=== PATIENT | male | born 1950 | race Two or more races ===

== ENCOUNTER 2024-07-13 11:43 | Emergency (ER) | payer OTHER, SELFPAY ==
[2024-07-13] VITALS (24 sets, daily range): BP systolic 133–155; BP diastolic 72–99; PULSE 75–93; RESP 12–26; TEMP 36.9; O2SAT 99–100
--- NOTE | ~2024-07-13 | XR_ITS ---
EXAMINATION: XR chest 1V portable DATE: 07/13/2024 12:42 INDICATION: Shortness of breath and chest pain TECHNIQUE: AP view of the chest was obtained. COMPARISON: Chest radiograph dated 06/22/[address] dated 06/26/2024 FINDINGS: No focal airspace opacities, pulmonary edema, pleural effusion or pneumothorax. Heart size is normal. Old healed fracture with plate and screw fixations at the right posterior fourth-ninth ribs. 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 IMPRESSION: 1. No acute cardiopulmonary disease. Reviewed, dictated and finalized at location A. RY CUTTER
--- NOTE | 2024-07-13 11:53 | ECG_ITS ---
Test Date: 2024-07-13 11:58:43 Measurements Intervals [place] Rate: 82 P: 31 MD: 168 QRS: 19 QRSD: 83 T: 131 QT: 384 QTc: 450 Interpretive Statements SINUS RHYTHM SEPTAL MYOCARDIAL INFARCTION , PROBABLY RECENT ST-T WAVE ABNORMALITY IN ANTEROLAT/HIGH LAT LEADS- CONSIDER ISCHEMIA BASELINE ARTIFACT- I, II, III, AVR, AVL, AVF ABNORMAL ECG No previous ECG available for comparison Electronically Signed On 07-13-2024 17:08:15 [employer] by Pascual Oakley D.O.
--- NOTE | 2024-07-13 12:08 | ECG_ITS ---
Test Date: 2024-07-13 12:10:42 Measurements Intervals [place] Rate: 85 P: 12 NM: 163 QRS: -1 QRSD: 78 T: 128 QT: 370 QTc: 442 Interpretive Statements SINUS RHYTHM SEPTAL INFARCT, PROBABLY RECENT ST-T WAVE ABNORMALITY IN HIGH LATERAL LEADS- CONSIDER ISCHEMIA BASELINE ARTIFACT- I, II, III, AVR, AVL, AVF ABNORMAL ECG Compared to ECG 07/13/2024 11:58:43 No significant changes Electronically Signed On 07-13-2024 16:56:22 [employer] by Pascual Oakley D.O.
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
--- OUTSIDE RECORDS SUMMARY | 2024-07-13 12:36 | XMS_ITS | Clinical Summary ---
Author Organization [facility] Address [facility] [place] [address] Care Team Providers Care Platform Attendant Name Role Phone Donavon Connor MD Primary Care Provider [phone] Allergies Active Allergy Reactions Criticality Noted Date Comments Gentamicin Other (see comment),Unknown Low 06/06/2019 Reaction: Reaction: Hydroxypropyl Methylcellulose Unknown 01/13/2014 Artificial tears ingredient Medications vitamin B-12 (CYANOCOBALAMIN ) 500 MCG tabletIndicatio ns:vitamin deficiency Take 1 tablet (500 mcg total) by mouth daily. 30 tablet 06/25/19 24 Active tamsulosin (FLOMAX) 0.4 MG CapIndications: Benign prostatic hyperplasia (BPH) suspected Take 1 capsule (0.4 mg total) by mouth daily. 30 capsule 03/21/20 24 Active polyethylene glycol (GLYCOLAX) packetIndicatio ns:Constipation Take 240 mLs (17 g total) by mouth 2 (two) times daily as needed. Dissolve powder in 240 mL water 30 each 03/20/20 24 Active amLODIPine (NORVASC) 5 MG tabletIndicatio ns:Hypertension Take 1 tablet (5 mg total) by mouth daily. Indications: High Blood Pressure 90 tablet 04/15/20 24 Active Xkzckhdb-Ltv-Ks -FA (, W/IRON & FA, OR)Indications: Nutritional Support Take 1 tablet by mouth daily. Indications: Nutritional Support 04/16/20 24 Active lactulose (ENULOSE) 10 GM/15ML solutionIndicat ions:Constipati on TAKE 30 ML BY MOUTH THREE TIMES DAILY FOR CONSTIPATION 2700 mL 06/10/19 25 Active losartan (COZAAR) 25 MG tabletIndicatio ns:Hypertension Take 1 tablet (25 mg total) by mouth daily. Indications: High Blood Pressure 30 tablet 11 06/17/19 25 Active insulin glargine (LANTUS) 100 UNIT/ML injection (VIAL)Indicatio ns:Diabetes Mellitus Indications: Diabetes ADMINISTER 9 UNITS UNDER THE SKIN EVERY MORNING 10 mL 5 06/24/19 25 Active insulin lispro, 1 Unit Dial, (HUMALOG KWIKPEN) 100 UNIT/ML injection (PEN)Indication s:Diabetes Mellitus Inject 4-10 Units into the skin see administration instructions. Indications: Diabetes Sliding Scale: 200-250+4u, 250-300 6u, 300-350+8u, 350-400 10u, >400 take 10u and re-measure after 30 min if still above 400 call a doctor 12 mL 3 06/24/19 25 Active guaiFENesin ER (MUCINEX) 600 MG 12 hr tabletIndicatio ns:Ciliary Congestion Take 600 mg by mouth 2 (two) times daily. Indications: Ciliary Congestion 07/02/19 25 Active metoprolol succinate ER (TOPROL-XL) 50 MG 24 hr tabletIndicatio ns:Hypertension Take 50 mg by mouth daily. Indications: High Blood Pressure 07/02/19 25 Active aspirin 81 MG chewable tabletIndicatio ns:Prophylaxis Chew 81 mg by mouth daily. Indications: Preventative Treatment 07/02/19 25 Active atorvastatin (LIPITOR) 20 MG tabletIndicatio ns:Hyperchlorem ia Take 80 mg by mouth daily. Indications: High Amount of Chloride in the Blood 07/02/19 25 Active ticagrelor (BRILINTA) 90 mg tabletIndicatio ns:Diabetes Mellitus Take 90 mg by mouth once. Indications: Diabetes 07/02/19 25 Active amoxicillin (AMOXIL) 500 MG capsuleIndicati ons:Cough Take 1 capsule (500 mg total) by mouth 3 (three) times daily for 15 days. Indications: Cough 45 capsule 07/03/19 25 025 Active amoxicillin (AMOXIL) 500 MG capsuleIndicati ons:Pneumonia Take 500 mg by mouth 3 (three) times daily. Indications: Pneumonia 07/04/19 25 Active insulin lispro, 1 Unit Dial, (HUMALOG KWIKPEN) 100 UNIT/ML injection (PEN)Indication s:Diabetes Mellitus [The details of the medication are not available because there are pending changes by a home health clinician.] 3 pen. 5 07/04/19 24 025 Discontin ued(Reord er) insulin glargine (LANTUS) 100 UNIT/ML injection (VIAL)Indicatio ns:Diabetes Mellitus Indications: Diabetes ADMINISTER 9 UNITS UNDER THE SKIN EVERY MORNING 10 mL 5 04/13/20 24 025 Discontin ued(Reord er) losartan (COZAAR) 25 MG tabletIndicatio ns:Hypertension Take 1 tablet (25 mg total) by mouth daily. Indications: High Blood Pressure 30 tablet 04/17/20 24 025 Discontin ued(Reord er) Active Problems Problem Noted Date Diagnosed Date Constipation 04/09/2024 Stercoral colitis 03/16/2024 Encephalopathy 06/22/2023 Hyperglycemia 12/30/2022 Edema 05/06/2022 Overview (07/05/2022): Last Assessment & Plan: Condition: stable Follow up in: six months Full incontinence of feces 06/26/2020 Hyperlipidemia 01/13/2014 Resolved Problems Problem Noted Date Diagnosed Date Resolved Date Preop examination 12/22/2021 12/27/2021 Abscess 09/17/2020 2021 Dehydration 07/03/2020 2021 Type 2 diabetes mellitus wit hout complication, with long-term current use of insulin ([facility]) 05/25/2020 05/04/2022 Essential hypertension 05/25/202005/04 Pressure injury of contiguou s region involving back and buttock, stage 3 ([facility]) 05/25/2020 05/04/2022 Decreased mobility 02/10/2020 Fracture of left clavicle 01/26/2020 Fracture of manubrium 01/26/20202021 Fracture of medial malleolus of right tibia 01/26/2020 05/04/2022 L1 vertebral fracture ([facility]) 01/25/2020 05/04/2022 Diabetes mellitus ([facility]) 01/13/2014 2021 Encounters Date Type Department Care Team Description 07/11/2024 11:15 AM ARMORED CAR DRIVER Home Care Visit [facility] [address] [place] [address] [place] [address] Maida Bello, COLLATOR COLLATOR HOME VISIT 07/09/2024 12:00 PM ARMORED CAR DRIVER Home Care Visit [address] [place] [address] [place] [address] Juliana Mcgrath, RN SN HOME VISIT 07/05/2024 11:30 AM ARMORED CAR DRIVER Home Care Visit [facility] Home Care [address] [place] [address] [place] [address] Anna Viera, RN SN HOME VISIT 07/04/2024 12:30 PM ARMORED CAR DRIVER Home Care Visit [address] [place] [address] [place] [address] Yuridia Sofia, OT OT INITIAL EVALUATION 07/04/2024 Scan [employer] SRVCS Scanned, [facility] 07/04/2024 Telephone [facility] Medical [facility] Family and Sports [facility] - [address] [place] [address] Donavon Connor MD Advice 07/03/2024 3:00 PM ARMORED CAR DRIVER Home Care Visit [address] [place] [address] [place] [address] Devin Dean, PT PT INITIAL EVALUATION 07/03/2024 10:20 AM ARMORED CAR DRIVER Office Visit [facility] Medical [facility] Family [facility] - [address] [place] [address] Donavon Connor MD TCM (Was admitted to [facility] for heart attack and was readmitted due to the Flu,Home health called to reconcile pt med list. States pt BP has been running low, has pitting edema in both legs refusing to use spirometer. States he may need a repeat BMP.///) 07/03/2024 Travel 07/02/2024 11:30 AM ARMORED CAR DRIVER Home Care Visit [address] [place] [address] [place] [address] Anna Viera, RN SN OASIS START OF CARE 07/02/[address] [place] [address] [place] [address] Donavon Connor MD 07/02/2024 Plan of Care Documentation [address] [place] [address] [place] [address] 07/01/2024 Scan [facility] SRVCS Scanned, [facility] 07/01/[address] [place] [address] [place] [address] Scanned, [facility] 07/01/[address] [place] [address] [place] [address] Donavon Connor MD Advise 06/27/2024 Scan [facility] SRVCS Scanned, [facility] Image (SCAN) 06/26/2024 Scan [facility] SRVCS Scanned, [facility] Ultrasound (SCAN); CT (SCAN) 06/26/2024 Telephone [facility] Family [facility] [place] [phone] Donavon Connor MD Advice 06/24/2024 Scan [facility] SRVCS Scanned, [facility] Echo (SCAN) 06/24/2024 Telephone [facility] Family [facility] [address] [phone] Donavon Connor MD Refill Request 06/22/2024 Scan [facility] SRVCS Scanned, [facility] 06/22/2024 Scan [facility] SRVCS Scanned, [facility] Image (SCAN) 05/15/2024 9:00 AM ARMORED CAR DRIVER Home Care Visit [address] [place], [place] [phone] Catie Zabala, PT PT OASIS DISCHARGE 05/14/2024 Telephone [facility] Medical Group Family and Sports Medicine - [address] [place] [phone] Donavon Connor MD Refill Request 05/12/2024 Home Care Visit [address] [address] Catie Zabala, PT [facility] INTERDISCIPLIN[facility] MTG 05/08/2024 1:45 PM ARMORED CAR DRIVER Home Care Visit [address] [address] Loki Mart, COLLATOR COLLATOR HOME VISIT 05/06/2024 12:45 PM ARMORED CAR DRIVER Home Care Visit [address] [address] Loki Mart, COLLATOR COLLATOR HOME VISIT 05/01/2024 1:00 PM ARMORED CAR DRIVER Home Care Visit [address] [address] Loki Mart, COLLATOR COLLATOR HOME VISIT 04/29/2024 1:45 PM ARMORED CAR DRIVER Home Care Visit [address] [address] Loki Mart, COLLATOR COLLATOR HOME VISIT 04/29/2024 11:00 AM ARMORED CAR DRIVER Home Care Visit [address] [address] Mounika Bingham, JEREMY SN DISCIPLINE DISCHARGE 04/24/2024 11:00 AM ARMORED CAR DRIVER Home Care Visit [address] [address] Loki Mart, COLLATOR COLLATOR HOME VISIT 04/23/2024 10:00 AM ARMORED CAR DRIVER Home Care Visit [address] [address] Mounika Bingham RN SN HOME VISIT 04/22/2024 1:45 PM ARMORED CAR DRIVER Home Care Visit [address] [place] [address] Marti Carlson, CLEARING TUB WORKER CLEARING TUB WORKER INITIAL EVALUATION 04/19/2024 10:20 AM ARMORED CAR DRIVER Office Visit [facility] Family [facility] Sports Medicine [address] [place] [address] Donavon Connor MD TCM (Constipation) 04/19/2024 Travel 04/18/2024 2:00 PM ARMORED CAR DRIVER Home Care Visit [address] [place] [address] [place] [address] Catie aZbala, PT PT INITIAL EVALUATION 04/18/2024 Telephone [facility] - [address], [address] [place] [phone] Chrissie Quiñonez MD Results 04/17/2024 Telephone [facility] [address] [place] [address] Donavon Connor MD Refill Request 04/16/2024 10:30 AM ARMORED CAR DRIVER Home Care Visit [address] [place] [address] Mounika Bingham, RN SN OASIS RESUMPTION OF CARE 04/16/2024 Orders Only [facility] Medical [facility] Family [facility] Sports Medicine - [address] [place] [address] Donavon Connor MD 04/16/2024 Orders Only [facility] Family [facility] [address] [place] [address] Donavon Connor MD 04/16/2024 Plan of Care Documentation [address] [place] [address] [place] [address] 04/15/2024 Scan HEALTH INFO SRVCS Scanned, [facility] Dilated Eye Exam (SCAN) 04/15/2024 Telephone [facility] - [address] [place] [address] Donavon Connor MD [facility] (/) 04/15/2024 Telephone [facility] [address] [place] [address] Donavon Connor MD Refill Request 04/13/2024 11:16 AM ARMORED CAR DRIVER Anesthesia Event [facility] [address] Chrissie Justin MD 04/13/2024 9:00 AM ARMORED CAR DRIVER - 04/13/2024 9:30 AM ARMORED CAR DRIVER Surgery [facility] [address] Chrissie Quiñonez MD COLONOSCOPY WITH CECAL POLYPECTOMY VIA COLD SNARE 04/12/2024 11:59 PM ARMORED CAR DRIVER Anesthesia Event [facility] [address] Chrissie Justin MD 04/12/2024 3:00 PM ARMORED CAR DRIVER Anesthesia Event [facility] [address] Manav Brewer MD 04/09/2024 11:53 AM ARMORED CAR DRIVER - 04/13/2024 1:28 PM ARMORED CAR DRIVER Hospital Encounter [facility] [address] [place] [address] Antonia Shelley MD Heberer, Brian James, DO D'Souza, Dominique C, MD Helmholt, Jennifer, Cate Ortez MD Constipation; Abdominal Pain Discharge Disposition: Home or Self Care (Routine Discharge) from Last 3 Months Immunizations Name Administration Dates Next Due Influenza Adult (Generic) 05/18/2020(Def erred: Patient/family declined) PFIZER COVID-19 (ORIGINAL FORMULATION, PURPLE CAP) mRNA, LNP-S, PF, 30 MCG/0.3 ML DOSE 11/13/2020,10/22/2020 Social History Tobacco Use Types Packs/Day Years Used Date Smoking Tobacco: Never Passive Smoke Exposure: Never Smokeless Tobacco: Never Tobacco Cessation:Counseling Given: No Alcohol Use Standard Drinks/Week Comments Not Currently 0 (1 standard drink = 0.6 oz pur e alcohol) OASIS D0700: Social Isolation Answer Da te Recorded Frequency of experiencing loneliness or isolatio n Never 07/02/2024 OASIS A1250: Transportation Answer Date Recorded Lack of Transportation (Medical) No 07/02/2024 Lack of Transportation (Non-Medical) No 07/02/2024 Patient Unable or Declines to Respond No 07/02/2024 OASIS B1300: Health Literacy Answer Macho e Recorded Frequency of needing help to read materials from doctor or pharmacy Often 07/02/2024 [facility] Utilities Answer Date Recorded In the past 12 months has [employer], [employer], or water [employer] threatened to shut off services in your home? No 04/10/2024 Humiliation, Afraid, Rape, and Kick questionnair e Answer Date Recorded Within the last year, have y ou been afraid of your partner or ex-partner? No 04/10/2024 Within the last year, have y ou been humiliated or emotionally abused in other ways by your partner or ex-partner? No Within the last year, have y ou been kicked, hit, slapped, or otherwise physically hurt by your partner or ex-partner? No 04/10/2024 Within the last year, have y ou been raped or forced to have any kind of sexual activity by your partner or ex-partner? No 04/10/2024 Social Connection and Isolat ion Panel [NHANES] Answer Date Recorded In a typical week, how many times do you talk on the phone with family, friends, or neighbors? More than three times a week 12/30/2022 How often do you get togethe r with friends or relatives? More than three times a week 12/30/2022 Attends Mosque Services Not on file 12/30 Do you belong to any clubs o r organizations such as scientologist groups, unions, fraternal or athletic groups, or school groups? No 12/30/2022 Attends Club or Organization Meetings Not on gopal e 12/30/2022 Are you , , di vorced, , never , or living with a partner? 12/30/2022 AUDIT-C Answer Date Recorded Q1: How often do you have a drink containing alcohol? Never 12/30/2022 Q2: How many drinks containi ng alcohol do you have on a typical day when you are drinking? Patient does not drink Q3: How often do you have si x or more drinks on one occasion? Never 12/30/2022 Overall Financial Resource Strain (CARDIA) Answe r Date Recorded How hard is it for you to pa y for the very basics like food, housing, medical care, and heating? Not hard at all 04/10/2024 PHQ-2 Answer Date Recorded Patient Health Questionnaire-2 Score 0 04/19/2024 Exercise Vital Sign Answer Date Recorde d On average, how many days pe r week do you engage in moderate to strenuous exercise (like a brisk walk)? 0 days 12/30/2022 On average, how many minutes do you engage in exercise at this level? 0 min 12/30/2022 Hunger Vital Sign Answer Date Recorded Within the past 12 months, y ou worried that your food would run out before you got the money to buy more. Never true 04/10/20 24 Within the past 12 months, t he food you bought just didn't last and you didn't have money to get more. Never true 04/10/2024 PRAPARE - Transportation Answer Date Re corded In the past 12 months, has l ack of transportation kept you from medical appointments or from getting medications? No 03/29 In the past 12 months, has l ack of transportation kept you from meetings, work, or from getting things needed for daily living? No 04/10/2024 Housing Stability Vital Sign Answer Macho e Recorded In the last 12 months, was t here a time when you were not able to pay the mortgage or rent on time? No 06/24/2023 In the last 12 months, how many places have you lived? 1 06/24/2023 In the last 12 months, was t here a time when you did not have a steady place to sleep or slept in a intermediate (including now)? No 06/24/2023 Housing Stability Vital Sign Answer Macho e Recorded In the last 12 months, was t here a time when you were not able to pay the mortgage or rent on time? No 04/10/2024 In the past 12 months, how m any times have you moved where you were living? 0 04/10/2024 At any time in the past 12 m [facility], were you homeless or living in a intermediate (including now)? No 04/10/2024 Sex and Gender Information Value Date Recorded Sex Assigned at Male 04/09/2024 9:16 PM ARMORED CAR DRIVER Legal Sex Male 8:36 PM CDT Gender Identity Male 04/09/2024 9:16 PM ARMORED CAR DRIVER Sexual Orientation Straight 04/09/2024 9: 16 PM ARMORED CAR DRIVER Last Filed Vital Signs Vital Sign Reading Time Taken Comments Blood Pressure 120/62 07/11/2024 11:20 AM ARMORED CAR DRIVER Pulse 84 07/11/2024 11:20 AM ARMORED CAR DRIVER Temperature 36.4 C (97.6 F) 07/11/2024 11:20 AM ARMORED CAR DRIVER Respiratory Rate 18 07/11/2024 11:20 AM ARMORED CAR DRIVER Oxygen Saturation 97% 07/11/2024 11:20 AM ARMORED CAR DRIVER Inhaled Oxygen Concentration - - Weight 68.9 kg (152 lb) 07/03/2024 9:50 AM ARMORED CAR DRIVER Height 162.6 cm (5' 4 ) 07/03/2024 9:50 AM ARMORED CAR DRIVER Body Mass Index 26.09 07/03/2024 9:50 AM ARMORED CAR DRIVER Plan of Treatment Upcoming Encounters Date Type Department Care Team (Late st Contact Info) Description 07/15/2024 9:00 AM ARMORED CAR DRIVER Home Care Visit [facility] [address] [place], [place] [phone] Maida Bello, COLLATOR [address] [place] [address] 07/17/2024 11:30 AM ARMORED CAR DRIVER Home Care Visit [facility] [address] [place], [place] [phone] Juliana Mcgrath, RN 07/18/2024 9:00 AM ARMORED CAR DRIVER Home Care Visit [address] [place], [place] [phone] Maida Bello, COLLATOR [address] [place], [place] [phone] 07/22/2024 3:30 PM ARMORED CAR DRIVER Appointment [address] [place] [address] [place] [address] Catie Zabala, PT [address] [place], [place] [phone] 01/06/2025 11:00 AM CDT Office Visit [facility] Medical Group Multispecialty Care - [facility] [address] [facility], [address] [place] [phone] Lai Anderson MD [address] [place] [address] Health Maintenance Due Date Last Done Comments Kidney Health Evaluation 1950 Pneumococcal Vaccine: 65+ Years (1 of 2 - PCV) 02/02/1954 DTaP, Tdap and Td Vaccines (1 - Tdap) 02/02/1967 Zoster Vaccines (1 of 2) 02/02/1998 RSV Immunization or 60+ Years (1 - 1-dose 75+ series) 02/02/2023 COVID-19 Vaccine (3 - season) 2024 11/13/2020, 10/22/2020 PHQ-2 (Physician [place]) 05/29/2024 04/19/2024 Hemoglobin A1C 08/30/2024 03/01/2024, 05/30, 12/30/2022, Additional history exists Lipid Panel 03/01/2025 03/01/2024, 08/08/2022, 12/30/2022, Additional history exists Influenza Adult (#1) 2025 Postpon ed from 02/27/2024 (Patient Refused) Diabetes: Retinopathy Eye Exam 04/15/2026 04/15/2024 Hepatitis C 06/08/2053 Postponed from 02/02/1966 (Patient Refused) Colorectal Cancer Screening Colonoscopy (10 Years) Discontinued 04/13/2024 Meningococcal B Vaccine Aged Out No l onger eligible based on patient's age to complete this topic Meningococcal Vaccine Aged Out No kay ciera eligible based on patient's age to complete this topic RSV Immunizations Under 20 Months Aged Out No longer eligible based on patient's age to complete this topic Goals Goal Patient Goal Type Associated Problems Recent Progress Patient-Stated? Author Family - family caregiver with be involved in care transitions and discharge planning Lifestyle No Beth Alvarez RN Medical Devices Implanted Type Area Rn Team Leader Device Identifier Shelf Expiration Date Model / Serial / Lot Mesh Bard Marlex 3 X 6 [id number] - [id number] Implanted:Qty : 1 on 12/28/2021 by Abundio Valverde MD at [facility] Mesh Right: Abdomen [employer] [id number] 04/25/2026 [id number] / / [id number] Procedures Procedure Name Priority Date/Time Associated Diagnosis Comments IMAGE GENERIC 06/27/2024 CT GENERIC 06/26/2024 CT GENERIC 06/26/2024 ULTRASOUND GENERIC (SCAN ORDER) 06/26/2024 ECHO GENERIC (SCAN ORDER) 06/24/2024 IMAGE GENERIC Routine 06/22/2024 DIABETIC RETINOPATHY EXAM (NEGATIVE)(SCAN ORDER) Routine 04/15/2024 POCT GLUCOSE - GODINEZ DOCKED DEVICE Routine 04/13/2024 12:22 PM ARMORED CAR DRIVER COLSC FLX W/RMVL OF TUMOR POLYP LESION SNARE TQ 04/13/2024 11:15 AM ARMORED CAR DRIVER Constipation POCT GLUCOSE - GODINEZ DOCKED DEVICE Routine 04/13/2024 10:49 AM ARMORED CAR DRIVER MAGNESIUM Routine 04/13/2024 9:02 AM ARMORED CAR DRIVER BASIC METABOLIC PANEL Routine 04/13/2024 9:02 AM ARMORED CAR DRIVER CBC W/DIFF AUTOMATED Routine 04/13/2024 9:02 AM ARMORED CAR DRIVER POCT GLUCOSE - GODINEZ DOCKED DEVICE Routine 04/13/2024 7:12 AM ARMORED CAR DRIVER PATHOLOGY Routine 04/13/2024 12:00 AM ARMORED CAR DRIVER POCT GLUCOSE - GODINEZ DOCKED DEVICE Routine 04/12/2024 10:19 PM ARMORED CAR DRIVER MAGNESIUM Routine 04/12/2024 6:40 AM ARMORED CAR DRIVER BASIC METABOLIC PANEL Routine 04/12/2024 6:40 AM ARMORED CAR DRIVER CBC W/DIFF AUTOMATED Routine 04/12/2024 6:40 AM ARMORED CAR DRIVER LIPID PANEL Routine 03/01/2024 9:46 AM CDT Primary hypertension Mixed hyperlipidemia Type 2 diabetes mellitus without complication, with long-term current use of insulin ([facility] HHS/[facility]) HEMOGLOBIN, GLYCOSYLATED Routine 03/01/2024 9:46 AM CDT Primary hypertension Mixed hyperlipidemia Type 2 diabetes mellitus without complication, with long-term current use of insulin ([facility] HHS/HCC) from Last 3 Months or Most Recently Relevant to Health Maintenance Results * IMAGE GENERIC (06/27/2024) Only the most recent of2 resultswithin the time period is included. Anatomical Region Laterality Modality Other 06/27/2024 us [facility] Scanned SCANNING Final Resu lt * CT GENERIC (06/26/2024) Only the most recent of2 resultswithin the time period is included. Anatomical Region Laterality Modality Other 06/26/2024 us [facility] Scanned SCANNING Final Resu lt * ULTRASOUND GENERIC (SCAN ORDER) (06/26/2024) Anatomical Region Laterality Modality Other 06/26/2024 Result [facility] Scanned SCANNING Final Resu lt * ECHO GENERIC (SCAN ORDER) (06/24/2024) Anatomical Region Laterality Modality Other 06/24/2024 Result [facility] Scanned SCANNING Final Resu lt * DIABETIC RETINOPATHY EXAM (NEGATIVE) (04/15/2024) Result [facility] Scanned SCANNING Final Resu lt Performing Organization Address City/[facility]/ZIP Co de Phone Number [facility] ONBASE * (ABNORMAL) POCT glucose (04/13/2024 12:22 PM ARMORED CAR DRIVER) Only the most recent of4 resultswithin the time period is included. GLUCOSE POC 146(H) 70 - 99 mg/dL 04/13/2024 12:27 PM ARMORED CAR DRIVER [facility] 04/13/2024 12:2 2 PM ARMORED CAR DRIVER Result [facility] Antonia Sloan NP POCT ORDERABLES - DEVICE Fi nal Result Performing Organization Address City/[facility]/ZIP Co de Phone Number [facility] [address] [place] [address], [place] [phone] * (ABNORMAL) BASIC METABOLIC PANEL (04/13/2024 9:02 AM ARMORED CAR DRIVER) Only the most recent of2 resultswithin the time period is included. GLUCOSE 145(H) 70 - 99 MG/DL 04/13/2024 9:47 AM ARMORED CAR DRIVER [facility] BUN 10 7 - 18 MG/DL 04/13/2024 9:47 AM ARMORED CAR DRIVER [facility] CREATININE S/P/B 1.17 0.7 - 1.3 MG/DL 04/13/2024 9:47 AM ARMORED CAR DRIVER [facility] SODIUM S/P/B 137 136 - 145 MMOL/L 04/13/2024 9:47 AM ARMORED CAR DRIVER [facility] POTASSIUM S/P/B 3.8 3.5 - 5.1 MMOL/L 04/13/2024 9:47 AM [facility] Comment:SLIGHT HEMOLYSIS, RE SULT MAY BE AFFECTED. CHLORIDE S/P/B 103 97 - 115 MMOL/L 04/13/2024 9:47 AM ARMORED CAR DRIVER [facility] CO2 28.3 21 - 32 MMOL/L 04/13/2024 9:47 AM [facility] CALCIUM S/P/B 8.6 8.5 - 10.1 MG/DL 04/13/2024 9:47 AM [facility] ANION GAP 5.7 2 - 10 MMOL/L 04/13/2024 9:47 AM [facility] BUN CREATININE RATIO 8.5 6 - 26 04/13/2024 9:47 AM [facility] GFR ESTIMATE 65(L) >90 ML/MIN/1.7 3 M2 04/13/2024 9:47 AM [facility] Comment: NOTE: eGFR is not calculated for patients <18 years of age or gender unknown. This is an estimated GFR calculation using the new CKD EPI creatinine equation without race and so does not require a correction factor for race. This estimated GFR should not be used for calculating drug doses. 04/13/2024 9:02 AM ARMORED CAR DRIVER us Antonia Sloan NP LABORATORY Final Resul t [facility] [address] [place] [address], [place] [phone] * CBC W/DIFF AUTOMATED (04/13/2024 9:02 AM [facility]) Only the most recent of2 resultswithin the time period is included. WBC 6.62 4.5 - 11.0 x10'3/uL 04/13/2024 9:20 AM [facility] RBC 5.26 4.70 - 6.10 x10'6/uL 04/13/2024 9:20 AM [facility] HGB 14.8 14.0 - 18.0 G/DL 04/13/2024 9:20 AM [facility] HCT 46.1 43.0 - 54.0 % 04/13/2024 9:20 AM [facility] MCV 87.6 80.0 - 94.0 FL 04/13/2024 9:20 AM [facility] MCH 28.1 27.0 - 31.0 PG 04/13/2024 9:20 AM [facility] MCHC 32.1 32.0 - 36.0 G/DL 04/13/2024 9:20 AM [facility] RDW 13.6 11.5 - 14.5 % 04/13/2024 9:20 AM [facility] PLT 189 130 - 400 x10'3/uL 04/13/2024 9:20 AM [facility] MPV 11.9 9.3 - 12.2 FL 04/13/2024 9:20 AM [facility] DIFFERENTIAL TYPE AUTOMATED DIFFERENTIAL 04/13/2024 9:20 AM [facility] NEUTROPHILS % 45.1 % 04/13/2024 9:20 AM [facility] LYMPHOCYTES % 43.7 % 04/13/2024 9:20 AM [facility] MONOCYTES % 7.6 % 04/13/2024 9:20 AM [facility] EOSINOPHILS 2.6 % 04/13/2024 9:20 AM [facility] BASOPHILS 0.8 % 04/13/2024 9:20 AM [facility] IMMATURE GRANS % 0.2 % 04/13/20 9:20 AM [facility] ABS. NEUTROPHILS 3.00 1.80 - 7.70 x10'3/uL 04/13/2024 9:20 AM [facility] ABS. LYMPHOCYTES 2.89 1.00 - 4.80 x10'3/uL 04/13/2024 9:20 AM [facility] ABS. MONOCYTES 0.50 0.30 - 0.82 x10'3/uL 04/13/2024 9:20 AM [facility] ABS. EOSINOPHILS 0.17 0.04 - 0.54 x10'3/uL 04/13/2024 9:20 AM [facility] ABS. BASOPHILS 0.05 0.01 - 0.08 x10'3/uL 04/13/2024 9:20 AM [facility] ABS. IMMATURE GRANULOCYTES 0.01 0.00 - 0.49 x10'3/uL 04/13/2024 9:20 AM [facility] 04/13/2024 9:02 AM ARMORED CAR DRIVER Antonia Sloan NP LABORATORY Final Resul t [facility] [address] [place] [address], * MAGNESIUM (04/13/2024 9:02 AM ARMORED CAR DRIVER) Only the most recent of2 resultswithin the time period is included. MAGNESIUM 2.1 1.8 - 2.4 MG/DL 04/13/2024 9:47 AM ARMORED CAR DRIVER [facility] Comment:SLIGHT HEMOLYSIS, RE SULT MAY BE AFFECTED. 04/13/2024 9:02 AM ARMORED CAR DRIVER Antonia Sloan NP LABORATORY Final Resul t Performing Organization Address City/[facility]/ZIP Co de Phone Number [facility] [address] [place] [address], * Pathology (04/13/2024 12:00 AM ARMORED CAR DRIVER) Pathologist [facility] PATHOLOGY [facility] Department of Laboratory Medicine [address] [place] [address] , extension [phone] Pathology Report Surgical Pathology Report Name: RAMÍREZ PERES Specimen #: [id number] Age: 9 1950 (Age: 74) Location: [address] Sex: M Procedure Date: 04/13/2024 Hospital #: [id number] Date Received: 04/15/2024 Date Reported: 04/16/2024 Provider: CHRISSIE QUIÑONEZ MD Source: Colon, cecum, polyp Clinical History: Constipation/fec al impaction. Gross Description: Received in formalin, labeled with a patient label and as cecal polyp is a 0.3 cm piece of haney tissue. The specimen is entirely submitted in cassette 1. Gross examination (when applicable), interpretation, and sign out were performed at [facility], [address] [place] [address]. FINAL DIAGNOSIS: Colon, cecum polyp, biopsy: -Polypoid colonic mucosa with dilated crypts. Electronically Signed Out YEMI THOMPSON MD [facility] TISSUE CECUM STRUCTURE / Unknown 04/13/2024 11:38 AM ARMORED CAR DRIVER Chrissie Quiñonez MD PATHOLOGY/CYTOLOGY ORDERABLES Fi nal Result [facility] [address] [place] [address], [place] [phone] [id number] * (ABNORMAL) HEMOGLOBIN, GLYCOSYLATED (03/01/2024 9:46 AM CDT) HGB A1C 8.3(H) <5.7 % 03/01/2024 12:[address] [facility] Comment: ADA GUIDELINES 2010 5.7 TO 6.4% INCREASED RISK OF DIABETES > OR = 6.5% CONSISTENT WITH DIABETES ESTIMATED AVG GLUCOSE 192 mg/dL 03/01/2024 12:[address] [facility] 03/01/2024 9:46 AM CDT Donavon Connor MD LABORATORY Final Result [facility] [address] [place] [address], [place] [phone] * (ABNORMAL) LIPID PANEL (03/01/2024 9:46 AM CDT) CHOLESTEROL 216(H) <200 MG/DL 03/01/2024 3:[address] [facility] TRIGLYCERIDES 345(H) <150 MG/DL 03/01/2024 3:31 PM [address] [facility] HDL 31(L) >40.0 MG/DL 03/04/2024 3:44 PM [address] [facility] LDL (CALCULATED) 116(H) <100 MG/DL 03/04/2024 3:44 PM [address]T [facility] NON HDL CHOLESTEROL 185(H) <130 MG/DL 03/04/2024 3:44 [address] [facility] CHOL/HDL RATIO 7.0(H) 0.0 - 4.5 03/04/2024 3:[address] [facility] VLDL CALCULATION 69(H) 5 - 55 MG/DL 03/01/2024 3:[address] [facility] LIPID INTERPRETATION 03/01/2024 3:[address] [facility] Comment: [facility] CON[facility]ENS[facility] REPORT RECOMMENDATIONS: ADULT CHILD LOW RISK: CHOLESTEROL <200 <170 TRIGLYCERIDE <150 --- HDL >=60 --- LDL <100 <110 BORDERLINE: CHOLESTEROL 200-239 170-199 TRIGLYCERIDE 150-199 --- HDL 40-59 --- LDL 100-159 110-129 HIGH RISK: CHOLESTEROL >=240 >=200 TRIGLYCERIDE >=200 --- HDL <40 --- LDL >=160 >=130 03/01/2024 9:46 AM CDT Donavon Connor MD LABORATORY Final Result [facility] [address] [place] [address], from Last 3 Months or Most Recently Relevant to Health Maintenance Additional Health Concerns 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 09/21/2020 ESBL - Extended Spectrum Bet a-lactamase Comment:11/24/2020 +ESBL Rectal culture 11/26/2020 11/26/2020 Insurance [employer] Advance Directives * Full Code (Latest Code Status on File) Date Activated Date Inactivated Comments 07/02/2024 4:10 PM * Full Code Date Activated Date Inactivated Comments 04/15/2024 8:50 AM 07/02/2024 4:10 PM * Full Code Date Activated Date Inactivated Comments 04/09/2024 7:54 PM 04/13/2024 3:34 PM * Full Code Date Activated Date Inactivated Comments 03/21/2024 6:03 PM 04/09/2024 11:52 AM * Full Code Date Activated Date Inactivated Comments 03/16/2024 6:43 PM 03/20/2024 1:46 PM Care Teams Platform Attendant Relationship Specialty Start Date End Date Donavon Connor MD [address], [place] [address] PCP - General FAMILY PRACTICE 04/13/20
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
--- OUTSIDE RECORDS SUMMARY | 2024-07-13 12:36 | XMS_ITS | Encounter Summary ---
Author Organization [facility] Address [facility] [place] [address] Care Team Providers Care Director Stars Name Role Phone Donavon Connor MD Primary Care Provider [phone] Reason for Visit * Reason Comments Echo (SCAN) Encounter Details Date Type Department Care Team (Latest Contact Info) Description 06/24/2024 Scan [facility] Scanned, Doc Med Group Echo (SCAN) Social History Tobacco Use Types Packs/Day Years Used Date Smoking Tobacco: Never Passive Smoke Exposure: Never Smokeless Tobacco: Never Alcohol Use Standard Drinks/Week Comments Not Currently 0 (1 standard drink = 0.6 oz pur e alcohol) OASIS D0700: Social Isolation Answer Da te Recorded Frequency of experiencing loneliness or isolatio n Never 05/15/2024 OASIS A1250: Transportation Answer Date Recorded Lack of Transportation (Medical) No 05/15/2024 Lack of Transportation (Non-Medical) No 05/15/2024 Patient Unable or Declines to Respond No 05/15/2024 OASIS B1300: Health Literacy Answer Macho e Recorded Frequency of needing help to read materials from doctor or pharmacy Sometimes 05/15/2024 [facility] Utilities Answer Date Recorded In the past 12 months has th e electric, gas, oil, or water company threatened to shut off services in your [...] than three times a week 12/30/2022 Attends Sikhism Services Not on file 12/30 Do you belong to any clubs o r organizations such as hinduism groups, unions, fraternal or athletic groups, or [...] place to sleep or slept in a correction (including now)? No 06/24/2023 Housing Stability Vital [...] time in the past 12 m [facility], were you homeless or living in a correction (including now)? No 04/10/2024 Sex and Gender Information Value Date Recorded Sex Assigned at Male 04/09/2024 9:16 PM TILTING SAW OPERATOR Legal Sex Male 8:36 PM CDT Gender Identity Male 04/09/2024 9:16 PM TILTING SAW OPERATOR Sexual Orientation Straight 04/09/2024 9: 16 PM TILTING SAW OPERATOR documented as of this encounter Functional Status * Are you deaf or do you have serious difficulty hearing Answer Date of Assessment Author Status No 04/09/2024 9:27 PM TILTING SAW OPERATOR Shayla Swan RN Active * Are you blind or do you have serious difficulty seeing, even when wearing glasses? Answer Date of Assessment Author Status No 04/09/2024 9:27 PM TILTING SAW OPERATOR Shayla Swan RN Active * Do you have serious difficulty walking or climbing stairs? Answer Date of Assessment Author Status No 04/09/2024 9:27 PM TILTING SAW OPERATOR Shayla Swan RN Active * Do you have difficulty dressing or bathing? Answer Date of Assessment Author Status No 04/09/2024 9:27 PM Shayla Bradshaw RN Active * Because of a physical, mental, or emotional condition, do you have difficulty doing errands alone such as visiting a doctor's office or shopping? Answer Date of Assessment Author Status Yes 04/09/2024 9:27 PM Shayla Bradshaw RN Active documented as of this encounter Mental Status * Because of a physical, mental, or emotional condition, do you have serious difficulty concentrating, remembering, or making decisions? Answer Entry Date Author Status Yes 04/09/2024 9:27 PM Shayla Bradshaw RN Active documented in this encounter Plan of Treatment Upcoming Encounters Date Type Department Care Team (Late st Contact Info) Description 07/15/2024 9:00 AM TILTING SAW OPERATOR Home Care Visit [facility] [address] [address] Maida Bello, HYDROPONICS WORKER [address] [place] [address] 07/17/2024 11:30 AM TILTING SAW OPERATOR Home Care Visit [facility] [address] [address] Juliana Mcgrath RN 07/18/2024 9:00 AM TILTING SAW OPERATOR Home Care Visit [facility] [address] [address] Maida Bello, HYDROPONICS WORKER [address] [place] [address] 07/22/2024 3:30 PM TILTING SAW OPERATOR Appointment [facility] [address] [address] Catie Zabala, PT [address] [place] [address] 01/06/2025 11:00 AM CDT Office Visit [facility] [address], [address] [place] [id number] Lai Anderson MD [address] [place] [address] documented as of this encounter Goals Goal Patient Goal Type Associated Problems Recent Progress Patient-Stated? 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
--- OUTSIDE RECORDS SUMMARY | 2024-07-13 12:36 | XMS_ITS | Referral Summary ---
Author Organization [facility] Address [address] [place] [address] Care Team Providers Care Wastewater Supervisor Name Role Phone No, Physician Primary Care Provider [phone] Bunny Ramires MD Unavailable [phone] Encounters Date Type Department Care Team Description 07/08/2024 2:00 PM ADMINISTRATIVE SUPPORT COORDINATOR Office Visit [facility] Medical [facility] Cardiology [address] [facility] [address] [place] [phone] Gina Link MD 07/02/[address] [facility] Medical [facility] Cardiology [address] [facility] [address] [place] [phone] Gerhard Ratliff MD 06/29/2024 Orders Only [facility] Health Information Management [address] [place] [id number] Allegra Shin MD 06/26/[address] [facility] Medical Group Cardiology [address] [facility] [address] [place] [phone] Peyton De Guzman MD from Last 3 Months Allergies Active Allergy Reactions Criticality Noted Date [...] needle, diabetic (Pen Needle) 32 gauge x 5/32 needle Use as directed once a day. [...] 08/2022 Assessment & Plan (07/31/2022 11:22 AM ADMINISTRATIVE SUPPORT COORDINATOR): No symptoms or signs of mechanical obstruction. [...] 07/30/2022 Assessment & Plan (07/31/2022 11:21 AM ADMINISTRATIVE SUPPORT COORDINATOR): On metformin 500 mg twice daily at [...] 07/30/2022 Assessment & Plan (07/31/2022 10:46 AM ADMINISTRATIVE SUPPORT COORDINATOR): Not on any treatment at home. BP well controlled, CTM and add medications if needed Benign prostatic hyperplasia without lower urinary tract symptoms 07/30/2022 Assessment & Plan (07/31/2022 10:44 AM ADMINISTRATIVE SUPPORT COORDINATOR): Patient was recently started on Flomax and finasteride at OSH. Patients son reported patient was experiencing difficulty urinating - continue home meds and pcp follow up for further management Stage 3a chronic kidney disease 07/30/2022 Assessment & Plan (07/31/2022 10:48 AM ADMINISTRATIVE SUPPORT COORDINATOR): Creatinine is 1.48, up from the most recent of 1.2- 1.3 in 2021 and 2015 - improved to 1.37 on am labs - CTM and follow up outpatient Social History Tobacco Use Types Packs/Day Years Used Date Smoking Tobacco: Never Smokeless Tobacco: Never Tobacco Cessation:Counseling Given: Not Answered Personal Safety Answer Date Recorded Getting School Help Needed Denies 07/22 Sex and Gender Information Value Date Recorded Sex Assigned at Not on file Legal Sex Male 5:44 AM ADMINISTRATIVE SUPPORT COORDINATOR Gender Identity Not on file Sexual Orientation Not on file Last Filed Vital Signs Vital Sign Reading Time Taken Comments Blood Pressure 116/60 07/08/2024 1:05 PM ADMINISTRATIVE SUPPORT COORDINATOR Pulse 88 07/08/2024 1:05 PM ADMINISTRATIVE SUPPORT COORDINATOR Temperature 36.5 C (97.7 F) 07/31/2022 8:00 AM ADMINISTRATIVE SUPPORT COORDINATOR Respiratory Rate 16 07/31/2022 7:55 AM ADMINISTRATIVE SUPPORT COORDINATOR Oxygen Saturation 99% 07/08/2024 1:05 PM ADMINISTRATIVE SUPPORT COORDINATOR Inhaled Oxygen Concentration - - Weight 67.9 kg (149 lb 9.6 oz) 07/08/2024 1:05 P M ADMINISTRATIVE SUPPORT COORDINATOR Height 162.6 cm (5' 4 ) 07/08/2024 1:05 PM ADMINISTRATIVE SUPPORT COORDINATOR Body Mass Index 25.68 07/08/2024 1:05 PM ADMINISTRATIVE SUPPORT COORDINATOR Plan of Treatment Not on file Procedures Procedure Name Priority Date/Time Associated Diagnosis Comments CARDIOLOGY DOCUMENT SCAN Routine 07/01/2024 3:53 PM ADMINISTRATIVE SUPPORT COORDINATOR CARDIOLOGY DOCUMENT SCAN Routine 06/30/2024 3:49 PM ADMINISTRATIVE SUPPORT COORDINATOR CARDIOLOGY DOCUMENT SCAN Routine 06/29/2024 3:44 PM ADMINISTRATIVE SUPPORT COORDINATOR SCAN - RADIOLOGY/IMAGING 06/29/2024 CARDIOLOGY DOCUMENT SCAN Routine 06/28/2024 3:37 PM ADMINISTRATIVE SUPPORT COORDINATOR CARDIOLOGY DOCUMENT SCAN Routine 06/27/2024 3:32 PM ADMINISTRATIVE SUPPORT COORDINATOR CARDIOLOGY DOCUMENT SCAN Routine 06/26/2024 3:20 PM ADMINISTRATIVE SUPPORT COORDINATOR CARDIOLOGY DOCUMENT SCAN Routine 06/24/2024 3:16 PM ADMINISTRATIVE SUPPORT COORDINATOR CARDIOLOGY DOCUMENT SCAN Routine 06/23/2024 3:10 PM ADMINISTRATIVE SUPPORT COORDINATOR CARDIOLOGY DOCUMENT SCAN Routine 06/22/2024 3:04 PM ADMINISTRATIVE SUPPORT COORDINATOR CARDIOLOGY DOCUMENT SCAN Routine 06/22/2024 3:03 PM ADMINISTRATIVE SUPPORT COORDINATOR CARDIOLOGY DOCUMENT SCAN Routine 06/22/2024 3:00 PM ADMINISTRATIVE SUPPORT COORDINATOR EGFR Routine 07/31/2022 5:30 AM ADMINISTRATIVE SUPPORT COORDINATOR HEMOGLOBIN A1C Routine 07/30/2022 10:23 PM ADMINISTRATIVE SUPPORT COORDINATOR LIPID PANEL Routine 07/30/2022 10:23 PM ADMINISTRATIVE SUPPORT COORDINATOR from Last 3 Months or Most Recently Relevant to Health Maintenance Results * Cardiology Document Scan (07/01/2024 3:53 PM ADMINISTRATIVE SUPPORT COORDINATOR) Anatomical Region Laterality Modality Other us Gerhard Ratliff MD [facility] SERVICES PROCEDURES F inal Result * Cardiology Document Scan (06/30/2024 3:49 PM ADMINISTRATIVE SUPPORT COORDINATOR) Anatomical Region Laterality Modality Other Result David Shin MD [facility] C[facility] SERVICES PRO CEDURES Final Result * Cardiology Document Scan (06/29/2024 3:44 PM ADMINISTRATIVE SUPPORT COORDINATOR) Anatomical Region Laterality Modality Other Result David Allegra Shin MD CV CARDIAC SERVICES PRO CEDURES Final Result * SCAN - RADIOLOGY/IMAGING (06/29/2024) Anatomical Region Laterality Modality Other Result David Allegra Shin MD Final R esult * Cardiology Document Scan (06/28/2024 3:37 PM ADMINISTRATIVE SUPPORT COORDINATOR) Anatomical Region Laterality Modality Other Allegra Shin MD [facility] CARDIAC SERVICES PRO CEDURES Final Result * Cardiology Document Scan (06/27/2024 3:32 PM ADMINISTRATIVE SUPPORT COORDINATOR) Anatomical Region Laterality Modality Other us Gerhard Ratliff MD CV CARDIAC SERVICES PROCEDURES F inal Result * Cardiology Document Scan (06/26/2024 3:20 PM ADMINISTRATIVE SUPPORT COORDINATOR) Anatomical Region Laterality Modality Other Allegra Shin MD [facility] CARDIAC SERVICES PRO CEDURES Final Result * Cardiology Document Scan (06/24/2024 3:16 PM ADMINISTRATIVE SUPPORT COORDINATOR) Anatomical Region Laterality Modality Other Allegra Shin MD [facility] CARDIAC SERVICES PRO CEDURES Final Result * Cardiology Document Scan (06/23/2024 3:10 PM ADMINISTRATIVE SUPPORT COORDINATOR) Anatomical Region Laterality Modality Other us Peyton De Guzman MD [facility] CARDIAC SERVICES PROCEDU RES Final Result * Cardiology Document Scan (06/22/2024 3:04 PM ADMINISTRATIVE SUPPORT COORDINATOR) Anatomical Region Laterality Modality Other Result David De Guzman MD CV CARDIAC SERVICES PROCEDU RES Final Result * Cardiology Document Scan (06/22/2024 3:03 PM ADMINISTRATIVE SUPPORT COORDINATOR) Anatomical Region Laterality Modality Other us Peyton De Guzman MD [facility] CARDIAC SERVICES PROCEDU RES Final Result * Cardiology Document Scan (06/22/2024 3:00 PM ADMINISTRATIVE SUPPORT COORDINATOR) Anatomical Region Laterality Modality Other us Peyton De Guzman MD [facility] CARDIAC SERVICES PROCEDU RES Final Result * (ABNORMAL) eGFR (07/31/2022 5:30 AM ADMINISTRATIVE SUPPORT COORDINATOR) eGFR 54(L) 90 - 130 mL/min/1. 73 m2 [facility] Comment: Interpretive Data Reference Interval Normal >/= [...] last reviewed 2021. Blood 07/31/2022 5:30 AM ADMINISTRATIVE SUPPORT COORDINATOR 07/31/2022 5:51 AM ADMINISTRATIVE SUPPORT COORDINATOR us Lizabeth Strong MD LAB BLOOD ORDERABLES Fin al Result [facility] [place] [address] * (ABNORMAL) Hemoglobin A1c (07/30/2022 10:23 PM ADMINISTRATIVE SUPPORT COORDINATOR) Hgb A1C 10.7(H) 4.0 - 5.6 % [facility] Estimated Average Glucose 260 mg/dL [facility] Comment: The ADA recommends reporting an estimated Average Glucose (eAG) with all Hemoglobin A1c results using the equation derived from a study of 507 normal and diabetic adults. Minority populations were underrepresented and children were not included. (Diabetes Care 2020; 43(S1): S66-S76). The eAG is not equivalent to a fasting glucose. Blood 07/30/2022 10:2 3 PM ADMINISTRATIVE SUPPORT COORDINATOR 07/30/2022 10:39 PM ADMINISTRATIVE SUPPORT COORDINATOR us Lizabeth Strong MD LAB BLOOD ORDERABLES Fin al Result [facility] Department [place] [address] * (ABNORMAL) Lipid panel (07/30/2022 10:23 PM ADMINISTRATIVE SUPPORT COORDINATOR) Cholesterol 167 30 - 199 mg/dL [facility] Comment: Interpretive Data Ages < or [...] revised on 2018. Triglycerides 155(H) <=149 mg/dL [facility] Comment: Interpretive Data Ages < or [...] revised on 2018. HDL 43 >=40 mg/dL [facility] Comment: Interpretive Data Ages < or [...] on 2018. LDL, calculated 93 <=129 mg/dL [facility] Comment: Interpretive Data Ages < or [...] revised on 2018. Non-HDL Cholesterol 124 mg/dL [facility] Comment: Interpretive Data Ages < or [...] last revised on 2018. Chol/HDL ratio 4 [facility] Blood 07/30/2022 10:2 3 PM ADMINISTRATIVE SUPPORT COORDINATOR 07/30/2022 10:39 PM ADMINISTRATIVE SUPPORT COORDINATOR Lizabeth Strong MD LAB BLOOD ORDERABLES Fin al Result Performing Organization Address City/State/[facility] Co de Phone Number [facility] Department [place] [address] from Last 3 Months or Most Recently Relevant to Health Maintenance Insurance [id number] [place] [phone] [place] [address] [facility] Advance Directives For more information, please contact: [phone] * Full Code (Latest Code Status on File) Date Activated Date Inactivated Comments 07/30/2022 9:33 PM 07/31/2022 6:01 PM Care Teams Wastewater Supervisor Relationship Specialty Start Date End Date No, Physician PCP - General 07/30/22 Bunny Ramires MD 07/30/22
--- OUTSIDE RECORDS SUMMARY | 2024-07-13 12:36 | XMS_ITS | Patient Health Summary ---
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 joint with fixation screw. Unchanged fractures of the right sacrum and right iliac bone. Stable postoperative appearance of internal fixation of the posterior eighth and ninth ribs. Fracture of the 10th posterior rib is also unchanged. Soft tissues: Posterior soft tissue defect overlying the coccyx near the gluteal cleft has progressed from prior CT and is compatible with a pressure wound. Packing material seen within the wound. Other findings: None. Impression: 1.Moderately distended, stool-filled distal colon and rectum with wall thickening and adjacent fat stranding. These findings suggest stercoral colitis. 2.Mildly enlarged external iliac lymph nodes are likely reactive. 3.Trace right pneumothorax is not significantly changed. Small right pleural effusion. 4.Pressure wound overlying the coccyx has progressed. 5.Comminuted fracture of the right inferior pubic ramus appears worsened alignment. The numerous other fractures are not significantly changed. Report dictated by Nicolás Kingston MD (professor of radiology). Dr. KAYLENE Bahena M.D. have personally reviewed and interpretedthis examination/study. This report was electronically signed by KAYLENE CAO M.D. on 03/19/2020 3:08 PM . Maycol Matthews MD CT ORDERABLES * US RETROPERITONEAL COMPLETE (03/16/2020 12:44 PM CDT) Anatomical Region Laterality Modality Abdomen Ultrasound 03/16/2020 1:21 PM CDT Impressions 03/16/2020 1:47 PM CDT IMPRESSION: Left kidney poorly visualized. Within these limitations, unremarkable renal ultrasound. Dictated by Ella Rothman MD (resident). Dr. JUNITO Bahena have personally reviewed and interpreted this examination/study. This report was electronically signed by JUNITO MACKEY on 03/16/2020 1:47 PM . Narrative 03/16/2020 1:47 PM CDT EXAMINATION: Complete retroperitoneal sonogram HISTORY: N10: Pyelonephritis, acute COMPARISON: CT abdomen and pelvis dated 02/23/2020 FINDINGS: Exam limited by patient body habitus and sedated patient who could not follow commands. Right kidney: 11.2 x 5.6 x 4.4 cm Left kidney: Only limited views achievable The image renal parenchymal echogenicity is normal. Multiple right renal cysts are present, largest measuring up to 3.1 cm in diameter. Left kidney is poorly visualized. However, a cyst is also seen in the left kidney. There is no evidence of a solid renal mass, renal calculi, or hydronephrosis. Blood flow is seen within the right renal arteries and veins. The bladder is decompressed with a Joiner catheter in place.. Procedure Note Junito Mackey MD - 03/16/2020 EXAMINATION: Complete retroperitoneal sonogram HISTORY: N10: Pyelonephritis, acute COMPARISON: CT abdomen and pelvis dated 02/23/2020 FINDINGS: Exam limited by patient body habitus and sedated patient who could not follow commands. Right kidney: 11.2 x 5.6 x 4.4 cm Left kidney: Only limited views achievable The image renal parenchymal echogenicity is normal. Multiple right renal cysts are present, largest measuring up to 3.1 cm in diameter. Leftkidney is poorly visualized. However, a cyst is also seen in the left kidney. There is no evidence of a solid renal mass, renal calculi, or hydronephrosis. Blood flow is seen within the right renal arteries and veins. The bladder is decompressed with a Joiner catheter in place.. IMPRESSION: Left kidney poorly visualized. Within these limitations, unremarkable renal ultrasound. Dictated by Ella Rothman MD (resident). I, Dr. JUNITO MACKEY have personally reviewed and interpreted this examination/study. This report was electronically signed by JUNITO MACKEY on 03/16/20201:47 PM . Maycol Matthews MD US ORDERABLES * SODIUM URINE RANDOM (03/16/2020 11:35 AM CDT) Sodium Urine 44 Not Established mmol/L 03/16/2020 12:02 PM CDT [facility] Urine URINE SPECIMEN OBTAINED BY CLEAN CATCH PROCEDURE / Unknown Collection / Unknown 03/16/2020 11:35 AM CDT 03/16/2020 11:46 AM CDT Maycol Matthews MD LAB - URINE CHEMISTR Y ORDERABLES [address] [address], [facility] [phone] * UREA NITROGEN URINE RANDOM (03/16/2020 11:35 AM CDT) Urea Nitrogen Random Urine 396 Not Established mg/dL 03/16/2020 12:02 PM CDT [facility] Urine URINE SPECIMEN OBTAINED BY CLEAN CATCH PROCEDURE / Unknown Collection / Unknown 03/16/2020 11:35 AM CDT 03/16/2020 11:46 AM CDT Maycol Matthews MD LAB - URINE CHEMISTR Y ORDERABLES Performing Organization Address [facility]/ZIP Co de Phone Number [address] [address], [place] [phone] * CREATININE URINE RANDOM (03/16/2020 11:35 AM CDT) Creatinine Urine 60 Not Established mg/dL 03/16/2020 12:02 PM CDT [facility] Comment:Result obtained by magui tellez. Urine URINE SPECIMEN OBTAINED BY CLEAN CATCH PROCEDURE / Unknown Collection / Unknown 03/16/2020 11:35 AM CDT 03/16/2020 11:46 AM CDT Maycol Matthews MD LAB - URINE CHEMISTR Y ORDERABLES Performing Organization Address [facility] Co de Phone Number [address] [address], [place] [phone] * CULTURE URINE (03/15/2020 4:57 PM CDT) Only the most recent of4 resultswithin the time period is included. Culture Urine No growth (<100 CFU/mL) CANDACE 03/17/2020 1:20 AM CDT [facility] Urine URINE SPECIMEN OBTAINED VIA [employer] [facility]IN[facility] CATHETER / Unknown Collection / Unknown 03/15/2020 4:57 PM CDT 03/15/2020 6:02 PM CDT Geoffrey Rogers MD LAB - MICROBIOLOGY O RDERABLES Performing Organization Address City/[facility]/ZIP Co de Phone Number [facility] [address] [place] [address], [facility] [phone] * (ABNORMAL) URINALYSIS REFLEX TO MICROSCOPIC NO CULTURE (03/15/2020 1:28 PM CDT) Color UA Deana(A) Straw, Yellow, Colorless 03/15/2020 2:11 PM [facility] Clarity UA Turbid(A) Clear, Slt Cloudy 03/15/2020 2:11 PM [facility] Specific [place] UA 1.023 1.005 - 1.030 03/15/2020 2:11 PM [facility] pH UA 5.0 5.0 - 8.0 pH 03/15/2020 2:11 PM [facility] Protein UA 2+(A) Negative mg/dL 03/15/2020 2:11 PM [facility] Glucose UA Negative Negative mg/dL 03/15/2020 2:11 PM [facility] Ketone UA Trace(A) Negative mg/dL 03/15/2020 2:11 PM [facility] Bilirubin UA Negative Negative mg/dL 03/15/2020 2:11 PM [facility] Blood UA 3+(A) Negative 03/15/2020 2:11 PM [facility] Nitrite UA Negative Negative 03/15/2020 2:11 PM [facility] Leukocyte Esterase 3+(A) Negative 03/15/2020 2:11 PM [facility] Urobilinogen UA Negative Negative mg/dL 03/15/2020 2:11 PM [facility] RBC UA >100(A) None Seen, 0-2, 3-5 /HPF 03/15/2020 2:11 PM [facility] WBC UA >100(A) None Seen, 0-5 /HPF 03/15/2020 2:11 PM [facility] WBC Clumps Many(A) None /HPF 03/15/2020 2:11 PM [facility] Bacteria UA 1+(A) None, Trace /HPF 03/15/2020 2:11 PM [facility] Squamous Epithelial Cells UA None Seen None Seen, 0-2 /HPF 03/15/2020 2:11 PM [facility] Mucus UA 1+ None, 1+ /LPF 03/15/2020 2:11 PM CDT [facility] Amorphous Crystals Many(A) Rare, Occasional, Few, Moderate, None /HPF 03/15/2020 2:11 PM CDT [facility] Urine URINE SPECIMEN OBTAINED VIA [employer] [facility] CATHETER / Unknown Collection / Unknown 03/15/2020 1:28 PM CDT 03/15/2020 1:34 PM CDT Narrative [facility] - 03/15/2020 2:11 PM CDT Geoffrey Rogers MD LAB - URINALYSIS ORD ERABLES [address] [address], [facility] [phone] * HIV-1 HIV-2 ANTIGEN/ANTIBODY (03/03/2020 5:25 AM CDT) HIV Antigen/Antibod y 1 & 2 Non-reacti ve Non-react tristan 03/03/2020 2:42 PM CDT [facility] Comment:Neither HIV-1 p24 An tigen nor HIV-1/HIV-2 Antibodies are detected. Blood BLOOD SPECIMEN / Unknown Lab Venipuncture / Unknown 03/03/2020 5:25 AM CDT 03/03/2020 2:10 PM CDT Geoffrey Rogers MD LAB - HEMATOLOGY ORD ERABLES Performing Organization Address City/[facility]/ZIP Co de Phone Number [address] [address], [facility] [phone] * VANCOMYCIN LEVEL RANDOM (03/03/2020 5:25 AM CDT) Only the most recent of4 resultswithin the time period is included. Vancomycin Random 17.9 Therapeutic Ranges not established for random specimens mcg/mL 03/03/2020 6:23 AM CDT [facility] Blood BLOOD SPECIMEN / Unknown Lab Venipuncture / Unknown 03/03/2020 5:25 AM CDT 03/03/2020 5:52 AM CDT Christina Briseno DO LAB - CHEMISTRY ORDE KATHERYN Performing Organization Address [facility] Co de Phone Number [address] [address], [place] [phone] * (ABNORMAL) IRON BLOOD (03/02/2020 2:52 AM CDT) Iron 29(L) 50 - 175 mcg/dL 03/02/2020 3:45 AM CDT [facility] Blood BLOOD SPECIMEN / Unknown Venipuncture / Unknown 03/02/2020 2:52 AM CDT 03/02/2020 3:28 AM CDT Karyna Marshall DO LAB - CHEMISTRY ORDKaren CAMPA Performing Organization Address [facility] Co de Phone Number [address] [address], [place] [phone] * (ABNORMAL) FERRITIN (03/02/2020 2:52 AM CDT) Ferritin 443(H) 22 - 275 ng/mL 03/02/2020 4:03 AM CDT [facility] Blood BLOOD SPECIMEN / Unknown Venipuncture / Unknown 03/02/2020 2:52 AM CDT 03/02/2020 3:28 AM CDT Karyna Marshall DO LAB - CHEMISTRY KATHY CAMPA Performing Organization Address [facility] Co de Phone Number [address] [address], [place] [phone] * ETT LINE PERFORMABLE (02/28/2020 10:30 PM CDT) Narrative Amina Frank - 02/28/2020 10:30 PM CDT Amina Frank MD 02/28/2020 10:30 PM Endotracheal Tube Placement: Patient Location: OR. Procedure: intubation ([id number]). Procedure Section: Sedation: under general anesthesia. Indications for Airway Management: anesthesia Induction: standard IV Patient Position: sniffing and supine Mask Ventilation: easy. Blade Type: Vanesa Blade Size: 4 Laryngoscopy View: grade 1 (full cords) Intubation Adjuncts: stylet and cricoid pressure Tube: endotracheal tube Placement: oral Tube type: cuff - inflated Tube Size (MM): 8 Depth of Insertion (CM): 23 Measured From: teeth Cuff Inflated With: air Number of Attempts: 1. Placement Verified By: direct visualization, chest auscultation, bilateral breath sounds and CO2 monitor Tube secured with: adhesive tape. Difficult Airway? No. Staff Section Anesthesia Provider: Jeff Barber DO Provider #1: Amina Frank MD, Performed the procedure. Jeff Barber DO GENERAL ANESTHESIA O RDERABLES * ETT LINE PERFORMABLE (02/26/2020 10:45 PM CDT) Narrative Star Desouza DO - 02/26/2020 10:45 PM CDT Star Desouza DO 02/26/2020 10:46 PM Endotracheal Tube Placement: Patient Location: OR. Intubation Event Date/Time: 02/26/2020 10:35 PM Procedure: intubation ([id number]). Procedure Section: Sedation: under general anesthesia. Indications for Airway Management: anesthesia Induction: standard IV Patient Position: sniffing and supine Mask Ventilation: easy and easy with oral airway. Blade Type: Vanesa Blade Size: 4 Laryngoscopy View: grade 1 (full cords) Intubation Adjuncts: stylet Tube: endotracheal tube Placement: oral Tube type: cuff - inflated Tube Size (MM): 8 Measured From: lips Cuff Inflated With: air Number of Attempts: 1. Placement Verified By: direct visualization, bilateral breath sounds, chest auscultation and CO2 monitor Tube secured with: adhesive tape. Difficult Airway? No. Procedure Start Time: 02/26/2020 10:35 PM. Staff Section Anesthesia Provider: Star Desouza DO, Performed the procedure Provider #1: Chepe Senior MD. Chepe Senior MD GENERAL ANESTHESIA O RDERABLES * TRANSFUSE RED BLOOD CELL LEUKOREDUCED UNIT(S) (02/24/2020 12:50 PM CDT) Pablito Kan MD NURSING - BLOOD PROD TRANSFUSION * (ABNORMAL) CULTURE TISSUE+GRAM STAIN (02/24/2020 12:16 PM CDT) Culture Light normal skin jarrod CANDACE 03/01/2020 1:28 PM CDT [facility] Gram Stain No polymorphonuclear cells(AA) 03/01/2020 1:28 PM CDT [facility] Gram Stain Moderate Gram-positive cocci(AA) 03/01/2020 1:28 PM CDT [facility] Gram Stain Moderate Gram-negative bacilli(AA) 03/01/2020 1:28 PM CDT [facility] Microbiology ENTIRE SACRAL VERTEBRAL COLUMN / Unknown Collection / Unknown 02/24/2020 12:16 PM CDT 02/24/2020 12:23 PM CDT Narrative [facility] - 03/01/2020 1:28 PM CDT 02/24/2020 9:24 PM Ysabel Ortega RN notified. Read back and acknowledged results. Organism seen on initial gram stain may be anaerobic or not viable for aerobic growth Pablito Kan MD LAB - MICROBIOLOGY O RDERABLES [facility] [address] [place] [address], [facility] [phone] * PREPARE (CROSSMATCH) RBC UNIT(S), 2 Units (02/24/2020 6:46 AM CDT) Only the most recent of5 resultswithin the time period is included. Unit Description AS1 LR PRBC [facility] Unit ABO B [facility] Unit POS [facility] Product Number R02 [facility] B LO[facility] Unit Donor # [id number] [facility] Unit Status [facility] Product Code [id number] [facility] Blood Type Barcode 7300 [facility] Expiration Date S BLOOD BANK LAB Unit Description AS1 LR PRBC [facility] Unit ABO B [facility] Unit POS [facility] Product Number R02 [facility] B LOOD [facility] Unit Donor # [id number] [facility] Unit Status released [facility] Product Code [id number] [facility] OD [facility] Blood Type Barcode 7300 [facility] Expiration Date S BLOOD BANK LAB Blood Bank BLOOD SPECIMEN / Unknown 02/24/2020 6:46 AM CDT 02/24/2020 7:02 AM CDT Adriana Funes [employer] LAB - BLOOD BANK ORDERABLES [facility] [address] [place] [address], [place] [phone] * SARS-COV-2 (COVID-19) IN HOUSE (02/23/2020 9:49 PM CDT) Only the most recent of2 resultswithin the time period is included. COVID-19 PCR Not detected Not detected, Invalid 02/24/2020 7:49 PM CDT [facility] Microbiology SPECIMEN FROM NASOPHARYNGEAL STRUCTURE / Unknown Collection / Unknown 02/23/2020 9:49 PM CDT 02/23/2020 9:56 PM CDT Narrative [facility] - 02/24/2020 7:49 PM CDT This Real Time RT-PCR assay was developed and its performance characteristics determined by [facility]. This test has been authorized by the Food and Drug administration (FDA)under an Emergency Use Authorization (EUA). This test has been validated in accordance with the FDA's guidance document Policy for Diagnostic Testing in Laboratories Certified to perform High Complexity Testing under CLIA prior to Emergency Use Authorization for Coronavirus Disease-2019 during the Public Health Emergency issued on July 27, 2019. FDA independent review of this validation is pending. This test is only authorized for the duration of time the declaration that circumstances exist justifying the authorization of emergency use of in vitro diagnostic tests for detection of SARS-CoV-2 virus and/or diagnosis of COVID-19 infection under section 564(b)(1) of the Act, 21 U.S.C 360bbb-3 (b)(1), unless the authorization is terminated or revoked sooner. Violet Thorpe MD LAB - MICROBIOLOGY ORDERABLES [facility] [address] [place] [address] [phone] * CT CHEST PE W ABD PELVIS W CONT (02/23/2020 8:09 PM CDT) Anatomical Region Laterality Modality Chest, Abdomen, Pelvis Computed Tomography 02/23/2020 8:27 PM CDT Impressions 02/24/2020 10:45 AM CDT IMPRESSION: 1. No evidence of pulmonary embolism. No significant interval change in the size of the small bilateral pleural effusions or the small right pneumothorax. 2. Interval development of small volume subcutaneous gas in the medial left buttock likely representing a developing soft tissue pressure injury. 3. Bladder wall thickening in nondistended urinary bladder, more prominent anteriorly, more than expected for nondistended state. Mild urothelial enhancement of bilateral renal pelvis and proximal ureters are noted. Combination of findings may represent cystitis with ureteritis and pyelitis. 4. Numerous fractures as detailed above without significant interval change in osseous alignment. Status post rib plating on the right. Dictated by Lobito Han MD (professor of radiology). I, Dr. Clay SHOEMAKER M.D. have personally reviewed and interpreted this examination/study. This report was electronically signed by Clay SHOEMAKER M.D. on 02/24/2020 10:45 AM . Narrative 02/24/2020 10:45 AM CDT EXAMINATION: 1. Computed tomography (CT) of the chest with contrast 2. CT of the abdomen and pelvis with contrast HISTORY: R50.9: Fever, unspecified fever cause TECHNIQUE: CT of the chest was performed following the uneventful administration of 100 mL of Isovue 370 intravenous contrast according to a pulmonary embolism protocol. CT of the abdomen and pelvis was also performed during the portal venous phase according to standard protocol. COMPARISON: 01/28/2020, 01/31/2020 FINDINGS: Chest: There are no filling defects in the pulmonary arteries to suggest pulmonary embolism. There is a left-sided aortic arch. The aorta and main pulmonary artery are normal in course and caliber. No significant interval change is seen in the size of the small to moderate bilateral pleural effusions with associated compressive atelectasis. Minimal peripheral tree-in-bud nodules in the left upper lobe are noted which may represent mild infection/inflammation. A persistent small right pneumothorax is identified, decreased in size when compared to the prior CT. Mild pleural thickening secondary to multiple bilateral rib fractures is redemonstrated. There has been interval rib plating on the right. No suspicious pulmonary nodule is identified. The trachea is patent and midline. The heart size is normal. No pericardial effusion is present. No mediastinal, hilar, supraclavicular, or axillary lymphadenopathy is seen. Abdomen/pelvis: The liver enhances homogenously. The gallbladder is normal without evidence of wall thickening, pericholecystic fluid, or gallstones. The intrahepatic and extrahepatic bile ducts are nondilated. The spleen enhances homogenously without focal lesion. The pancreas and adrenal glands are normal. Renal cysts in the bilateral kidneys are noted measuring up to 3.2 cm on the right and 3.6 cm on the left. Otherwise the kidneys enhance symmetrically. Mild urothelial enhancement of the bilateral renal pelvis and proximal ureters are noted, may represent pyelitis/ureteritis. There is no evidence of renal calculus or hydronephrosis. The esophagus and stomach appear normal. The small bowel and colon are normal in caliber without evidence of wall thickening or obstruction. A large stool ball is present in the rectum without evidence of stercoral ulcer formation. The appendix appears normal without appendicolith or surrounding inflammatory changes. No free air or free fluid is identified within the abdomen. There is no abdominal lymphadenopathy. The urinary bladder is nondistended with significant wall thickening, more prominent anteriorly. A Joiner catheter is present in the bladder. The prostate is partially calcified. No free fluid is seen within the pelvis. There is no pelvic lymphadenopathy. There is diffuse anasarca of the bilateral flanks. A fluid collection in the right lower flank without rim enhancement is noted measuring approximately 2.2 x 3.3 cm, which is unchanged when compared to the prior CT (series 6, image 158). There is interval development of trace subcutaneous gas in the left medial buttock with underlying subcutaneous edema (series 6, images 144-166), suggestive of interval development of a soft tissue pressure injury, new since 01/31/2020. Bone windows demonstrate no suspicious lytic or blastic lesions. Multiple bilateral rib fractures are redemonstrated, of which several on the right demonstrate interval postoperative findings from internal fixation. There are no interval changes in osseous alignment of the fractures of the manubrium, distal left clavicle, right superior and inferior pubic rami or of the minimally displaced fracture of the right iliac bone, right sacrum and right L5 transverse process. There are redemonstrated postoperative findings from internal fixation of the right sacroiliac joint with a traversing screw. There is no interval change in the appearance of the L1 burst fracture. Procedure Note Renetta Shoemaker MD - 02/24/2020 EXAMINATION: 1. Computed tomography (CT) of the chest with contrast 2. CT of the abdomen and pelvis with contrast HISTORY: R50.9: Fever, unspecified fever cause TECHNIQUE: CT of the chest was performed following the uneventful administration of 100 mL of Isovue 370 intravenous contrast according toa pulmonary embolism protocol. CT of the abdomen and pelvis was also performed during the portal venous phase according to standard protocol. COMPARISON: 01/28/2020, 01/31/2020 FINDINGS: Chest: There are no filling defects in the pulmonary arteries to suggest pulmonary embolism. There is a left-sided aortic arch. The aorta andmain pulmonary artery are normal in course and caliber. No significant interval change is seen in the size of the small to moderate bilateral pleural effusions with associated compressive atelectasis. Minimal peripheral tree-in-bud nodules in the left upperlobe are noted which may represent mild infection/inflammation. A persistent small right pneumothorax is identified, decreased in size when comparedto the prior CT. Mild pleural thickening secondary to multiple bilateral rib fractures is redemonstrated. There has been interval rib plating on the right. No suspicious pulmonary nodule is identified. The trachea is patent and midline. The heart size is normal. No pericardial effusion is present. No mediastinal, hilar, supraclavicular, or axillary lymphadenopathy isseen. Abdomen/pelvis: The liver enhances homogenously. The gallbladder is normal without evidence of wall thickening, pericholecystic fluid, or gallstones. The intrahepatic and extrahepatic bile ducts are nondilated. The spleen enhances homogenously without focal lesion. The pancreas and adrenal glands are normal. Renal cysts in the bilateral kidneys are noted measuring up to 3.2 cm on the right and 3.6 cm on the left. Otherwisethe kidneys enhance symmetrically. Mild urothelial enhancement of the bilateral renal pelvis and proximal ureters are noted, may represent pyelitis/ureteritis. There is no evidence of renal calculus or hydronephrosis. The esophagus and stomach appear normal. The small bowel and colon are normal in caliber without evidence of wall thickening or obstruction. A large stool ball is present in the rectum without evidence of stercoral ulcer formation. The appendix appears normal without appendicolith or surrounding inflammatory changes. No free air or free fluid isidentified within the abdomen. There is no abdominal lymphadenopathy. The urinary bladder is nondistended with significant wall thickening,more prominent anteriorly. A Joiner catheter is present in the bladder. The prostate is partially calcified. No free fluid is seen within thepelvis. There is no pelvic lymphadenopathy. There is diffuse anasarca of the bilateral flanks. A fluid collection in the right lower flank without rim enhancement is noted measuring approximately 2.2 x 3.3 cm, which is unchanged when compared to theprior CT (series 6, image 158). There is interval development of trace subcutaneous gas in the leftmedial buttock with underlying subcutaneous edema (series 6, images 144-166), suggestive of interval development of a soft tissue pressure injury, new since 01/31/2020. Bone windows demonstrate no suspicious lytic or blastic lesions.Multiple bilateral rib fractures are redemonstrated, of which several on theright demonstrate interval postoperative findings from internal fixation.There are no interval changes in osseous alignment of the fractures of the manubrium, distal left clavicle, right superior and inferior pubic ramior of the minimally displaced fracture of the right iliac bone, rightsacrum and right L5 transverse process. There are redemonstrated postoperative findings from internal fixation of the right sacroiliac joint with a traversing screw. There is no interval change in the appearance of theL1 burst fracture. IMPRESSION: 1. No evidence of pulmonary embolism. No significant interval change in the size of the small bilateral pleural effusions or the small right pneumothorax. 2. Interval development of small volume subcutaneous gas in the medial left buttock likely representing a developing soft tissue pressureinjury. 3. Bladder wall thickening in nondistended urinary bladder, moreprominent anteriorly, more than expected for nondistended state. Mild urothelial enhancement of bilateral renal pelvis and proximal ureters are noted. Combination of findings may represent cystitis with ureteritis and pyelitis. 4. Numerous fractures as detailed above without significant interval change in osseous alignment. Status post rib plating on the right. Dictated by Lobito Han MD (professor of radiology). Dr. Clay Bahena M.D. have personally reviewed and interpretedthis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
--- OUTSIDE RECORDS SUMMARY | 2024-07-13 12:36 | XMS_ITS | Encounter Summary ---
Author Organization [facility] Address [facility] [place] [address] Care Team Providers Care Permaculture Designer Name Role Phone Donavon Connor MD Primary Care Provider [phone] Encounter Details Date Type Department Care Team (Latest Contact Info) Description 07/04/2024 Scan [facility] Scanned, Doc Med Group Social History Tobacco Use Types Packs/Day Years [...] materials from doctor or pharmacy Often 07/02/2024 [facility] Utilities Answer Date Recorded In the past 12 months has e [employer], gas, oil, or water [employer] threatened to shut off services in your [...] than three times a week 12/30/2022 Attends Jainism Services Not on file 12/30 Do you belong to any clubs o r organizations such as anabaptist groups, unions, fraFortnox or athletic groups, or school groups? No [...] place to sleep or slept in a half-way (including now)? No 06/24/2023 Housing Stability Vital Sign Answer Macho e Recorded In the last 12 months, was t here a time when you were not able to pay the mortgage or rent on time? No 04/10/2024 In the past 12 months, how m any times have you moved where you were living? 0 04/10/2024 At any time in the past 12 m [facility], were you homeless or living in a half-way (including now)? No 04/10/2024 Sex and Gender Information Value Date Recorded Sex Assigned at Male 04/09/2024 9:16 PM MONITORING COORDINATOR Legal Sex Male 8:36 PM CDT Gender Identity Male 04/09/2024 9:16 PM MONITORING COORDINATOR Sexual Orientation Straight 04/09/2024 9: 16 PM MONITORING COORDINATOR documented as of this encounter Functional Status * Are you deaf or do you have serious difficulty hearing Answer Date of Assessment Author Status No 04/09/2024 9:27 PM MONITORING COORDINATOR Shayla Swan RN Active * Are you blind or do you have serious difficulty seeing, even when wearing glasses? Answer Date of Assessment Author Status No 04/09/2024 9:27 PM MONITORING COORDINATOR Shayla Swan RN Active * Do you have serious difficulty walking or climbing stairs? Answer Date of Assessment Author Status No 04/09/2024 9:27 PM MONITORING COORDINATOR Shayla Swan RN Active * Do you [...] st Contact Info) Description 07/15/2024 9:00 AM MONITORING COORDINATOR Home Care Visit [address] [place] [address] Maida Bello, HIGH TENSION TESTER [address], [place] [address] 07/17/2024 11:30 AM MONITORING COORDINATOR Home Care Visit [facility] [address] [place] [address] Juliana Mcgrath RN 07/18/2024 9:00 AM MONITORING COORDINATOR Home Care Visit [facility] [address] [address] Maida Bello, HIGH TENSION TESTER [address] [place] [address] 07/22/2024 3:30 PM MONITORING COORDINATOR Appointment [facility] [address] [place] [address] [place] [address] Catie Zabala, PT [address] [place] [address] 01/06/2025 11:00 AM CDT Office Visit [facility] - [address], [address] [place] [address] Lai Anderson MD [address] [place] [address] documented as of this encounter Goals Goal Patient Goal Type Associated Problems Recent Progress Patient-Stated? 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
--- OUTSIDE RECORDS SUMMARY | 2024-07-13 12:36 | XMS_ITS | Clinical Summary ---
Author Organization [facility] Address [address] [place] [address] Care Team Providers Care Research Interviewer Name Role Phone Unavailable Primary Care Provider Unavailabl e Social History Tobacco Use Types Packs/Day Years Used Date Smoking Tobacco: Never Assessed Sex and Gender Information Value Date Recorded Sex Assigned at Not on file Legal Sex Male 1:05 PM EST Gender Identity Not on file Sexual Orientation Not on file Plan of Treatment Not on file
--- OUTSIDE RECORDS SUMMARY | 2024-07-13 12:36 | XMS_ITS | Clinical Summary ---
Author Organization [facility] Address [address] [facility] [place] [address] Care Team Providers Care Bread Oven Operator Name Role Phone Unknown, Provider Primary Care Provider Donavon Holguin MD Unavailable [phone] Source Comments [facility],non-owned Affiliates and Associated Physician Practices is amultiple site organization consisting of ambulatory clinics and hospital sitesin [place], [place], [place] and [place]. This disclosure is being madepursuant to the Care Everywhere program and may not contain all information available regarding this patient. Last updated 18.[facility] Allergies Active Allergy Reactions Criticality Noted Date [...] tablet 01/01/2023 Active Blood Glucose Monitoring Suppl (DeRev Verio Flex System) w/Device KIT USE DIRECTED THREE TIMES DAILY 01/01/2023 Active erythromycin (Romycin) 5 MG/GM ophthalmic ointment 03/23/2023 Active Star Scientificuch Ultra test strip USE TO TEST FOUR TIMES DAILY 03/27/2023 Active TRUEplus 5-Bevel Pen [place] 32G X 4 MM MISC USE TO INJECT INSULIN UP TO 5 TIMES DAILY 07/11/2023 Active TRUEplus Insulin Syringe 30G X 5/16 0.5 ML MISC USE DIRECTED EVERY DAY 01/01/2023 Active Lancets (Tech.euTOUCH DELICA PLUS 33G EXTRA FINE LANCET) TEST [...] original. Could not [facility] [place] afford to provide a Home Health nurse [...] Follow up in: three months with PCP, Marshmallow Maker, Court Assistant, Business Process Lead, Established eye child day care teacher and Sewage Screen Operator Last Assessment & Plan: Not on any [...] Follow up in: three months with PCP, Marshmallow Maker, Court Assistant, Business Process Lead, Established eye child day care teacher and Sewage Screen Operator Infected wound 04/12/2020 Sacral wound 02/19/2020 Urinary [...] Mass Index 24.5 09/28/2023 7:22 AM CDT Plan of Treatment Upcoming Encounters Date Type Department Care Team (Late st Contact Info) Description 11/27/2024 10:30 AM CDT Office Visit [facility] - Ophthalmology [address] [place] [phone] Health Maintenance Due Date Last Done Comments HEPATITIS C SCREENING 01/29/1966 DTAP/TDAP/TD VACCINES (1 - Tdap) 02/02/1967 PNEUMOCOCCAL VACCINE 50+ (1 of 2 - PCV) 02/02/1967 ZOSTER VACCINE (1 of 2) 02/02/1998 Respiratory Syncytial Virus (RSV) Vaccine Pt: or over 60 yrs (1 - 1-dose 75+ series) 02/02/2023 DIABETES-FOOT EXAM WITH MONOFILAMENT 08/30/2023 DIABETES-HGB A1C 12/22/2023 06/23/2023, 08/2022, 09/18/2020, Additional history exists COVID-19 VACCINE ( season) 2024 11/13/2020, 10/22/2020 INFLUENZA VACCINE (#1) 2024 DEPRESSION SCREENING 05/29/2024 DIABETES - URINE PROTEIN SCREENING 05/29/2024 MEDICARE AWV CALENDAR YEAR 2024 DIABETES-SERUM CREATININE 09/04/20242023, 09/05/2023, 06/25/2023, Additional history exists DIABETES RETINOPATHY SCREENING 11/23/2025 11/24/2023, 08/30/2023 HEPATITIS B VACCINE Aged Out No longe r eligible based on patient's age to complete this topic HIB VACCINE Aged Out No longer eligi ble based on patient's age to complete this topic HPV VACCINE Aged Out No longer eligi ble based on patient's age to complete this topic MENINGOCOCCAL (Group B) VACCINE Aged Out No longer eligible based on patient's age to complete this topic MENINGOCOCCAL VACCINE Aged Out No kay ciera eligible based on patient's age to complete this topic Medical Devices Implanted Type Area Brine Mixer Operator Device Identifier Shelf Expiration Date Model / Serial / Lot Gd Pin Orth 450mm 3.2mm Cocr Xtd Acc Implanted:Qty: 1 on 01/31/2020 by Dipesh Felix MD at [facility] Right: Sacral Iliac Joint [employer] [id number] / / Wshr 12.7mm 6.5mm Set Unv Orth Ss 1mm Implanted:Qty: 1 on 01/31/2020 by Dipesh Felix MD at [facility] Right: Sacral Iliac Joint [employer] [id number] / / Cannulated Screw, 4.0mm X40mm 1/2 Thread Implanted:Qty: 2 on 01/31/2020 by Dipesh Felix MD at [facility] Right: Ankle [id number] / / 8.0 X 9.5 Fully Threaded Screw Implanted:Qty: 1 on 01/31/2020 by Dipesh Felix MD at [facility] [id number] / / Plate 8 Hl Unv Matrixrib Ti Bone Nonster Implanted:Qty: 5 on 02/05/2020 by Dipesh Hernandez MD at [facility] Right: Chest Wall [employer] [id number] / / 2.7 Mm Matrixrib Locking Screw, Self-Drilling, 11mm Implanted:Qty: 35 on 02/05/2020 by Dipesh Hernandez MD at [facility] Right: Chest Wall [id number] 1 / / 2.7 Mm Matrixrib Locking Screw, Self-Drilling, 12mm Implanted:Qty: 2 on 02/05/2020 by Dipesh Hernandez MD at [facility] Right: Chest Wall [id number] 1 / / Plate 16 Hl Precontr Lck Lopro 4th Rb Implanted:Qty: 1 on 02/05/2020 by Dipesh Hernandez MD at [facility] Right: Chest Wall [employer] [id number] / / [employer] Uv Iol Ccaoto +23.0d Implanted:Qty: 1 on 09/28/2023 by Simeon Cannon MD at [facility] Left: Eye [employer] 02/20/2027 CCAOTO+23.0D / [id number] / N/A [employer] Iol Aspheric Uv Absorbing Iol Implanted:Qty: 1 on 10/12/2023 by Simeon Cannon MD at [facility] Right: Eye [employer] 02/18/2027 CCA0T0 +23.5D / [id number] / NA Procedures Procedure Name Priority Date/Time Associated Diagnosis Comments COMPREHENSIVE METABOLIC PANEL STAT 06/30/2020 2:29 PM HUMANITIES DEPARTMENT CHAIR HEMOGLOBIN A1C Routine 04/18/2020 11:09 AM [facility] from Last 3 Months or Most Recently Relevant to Health Maintenance Results * (ABNORMAL) COMPREHENSIVE METABOLIC PANEL (06/30/2020 2:29 PM [facility]) BUN 29(H) 7 - 26 mg/dL 06/30/2020 3:00 PM [facility] Creatinine 1.2 0.6 - 1.2 mg/dL 06/30/2020 3:00 PM [facility] Sodium 138 136 - 145 mmol/L 06/30/2020 3:00 PM [facility] Potassium 3.7 3.5 - 4.5 mmol/L 06/30/2020 3:00 PM [facility] Chloride 96(L) 98 - 107 mmol/L 06/30/2020 3:00 PM [facility] CO2 28 22 - 29 mmol/L 06/30/2020 3:00 PM [facility] Glucose 144(H) 70 - 115 mg/dL 06/30/2020 3:00 PM [facility] Calcium 8.8 8.4 - 10.2 mg/dL 06/30/2020 3:00 PM [facility] Protein Total 6.5 6.0 - 8.3 g/dL 06/30/2020 3:00 PM [facility] Albumin 2.8(L) 3.4 - 5.0 g/dL 06/30/2020 3:00 PM [facility] Bilirubin Total 0.4 0.2 - 1.2 mg/dL 06/30/2020 3:00 PM [facility] Alkaline Phosphatase 108 40 - 150 Units/L 06/30/2020 3:00 PM [facility] ALT 20 0 - 55 Units/L 06/30/2020 3:00 PM [facility] AST 17 5 - 34 Units/L 06/30/2020 3:00 PM [facility] Anion Gap 18 8 - 18 06/30/2020 3:00 PM [facility] BUN/Creatinine Ratio 24(H) 7 - 23 06/30/2020 3:00 PM [facility] Osmolality Calculated 294 270 - 300 mOsm/kg 06/30/2020 3:00 PM [facility] Albumin/Globulin Ratio 0.8(L) 1.1 - 2.3 06/30/2020 3:00 PM [facility] eGFR 60(L) >60 mL/min/1.7 3 m2 06/30/2020 3:00 PM [facility] Blood BLOOD SPECIMEN / Unknown Venipuncture / Unknown 06/30/2020 2:29 PM HUMANITIES DEPARTMENT CHAIR 06/30/2020 2:37 PM [facility] Shaggy James MD LAB - CHEMISTRY KATHY CAMPA [facility] [address] [place] [address], [facility] [phone] * (ABNORMAL) HEMOGLOBIN A1C (04/18/2020 11:09 AM [facility]) Hemoglobin A1c 7.6(H) 4.4 - 6.3 % 04/19/2020 9:00 AM [facility] Estimated Average Glucose 171 mg/dL 04/19/2020 9:00 AM [facility] Comment: HbA1c Interpretation: Treatment target values recommended by ADA and other clinical organizations should be used to evaluate metabolic control in patients. Treatment Target Values: Normal : < 5.7% Pre-diabetes: 5.7-6.4% Diabetes: Equal to or greater than 6.5% Reference: [place] [employer] Association Standards of Care in Diabetes -2014 In patients 70 years and older consider HbA1c target range of 7.0-7.5% Reference: Diabetes Mellitus in Older People: Position Statement on behalf of the International Association of Gerontology and Geriatrics (IAGG), the Diabetes Working Green Party for Older People (EDWPOP), and the International Task Force of Experts in Diabetes. Ritesh Srinivasan, et al. J [place] [employer] Association. 2012 Test results diagnostic of diabetes should be repeated for confirmation. The Sebia Capillary 2 assay for the measurement of HbA1c is a National Glycohemoglobin Standardization Program (NGSP)certified method. Blood BLOOD SPECIMEN / Unknown Lab Venipuncture / Unknown 04/18/2020 11:09 AM HUMANITIES DEPARTMENT CHAIR 04/18/2020 11:40 AM HUMANITIES DEPARTMENT CHAIR Narrative [facility] - 04/19/2020 9:00 AM HUMANITIES DEPARTMENT CHAIR note^note Zhane Granger MD LAB - CHEMISTRY OR DERABLES [facility] [address] [place] [address], [facility] [phone] from Last 3 Months or Most Recently [...] 3:26 PM 02/19/2020 5:52 PM Care Teams Bread Oven Operator Relationship Specialty Start Date End Date Unknown, Provider PCP - General 08/30/23 Donavon Connor MD Family Medicine 08/30/23
[2024-07-13 12:51] LABS: Basophils Absolute Auto 0.1 K/mm3 (0.0-0.1); Basophils Percent Auto 0.9 % (0.2-1.2); Eosinophils Absolute Auto 0.1 K/mm3 (0-0.3); Eosinophils Percent Auto 1.1 % (0-4.4); Hematocrit 36.8 % (42.0-52.0); Immature Granulocyte Absolute 0.03 K/mm3 (0.00-0.031); Immature Granulocyte Percent A 0.4 % (0-0.5); Lymphocytes Absolute Auto 1.84 K/mm3 (0.9-3.2); Lymphocytes Percent Auto 22.9 % (18.3-44.2); Mean Corpuscular HGB Conc 32.6 g/dl (32-36); Mean Corpuscular Hemoglobin 28.4 pg (26-34); Mean Platelet Volume 10.7 fl (7.4-10.4); Monocytes Absolute Auto 0.6 K/mm3 (0.1-0.6); Monocytes Percent Auto 7.7 % (2.6-8.5); Neutrophils Absolute Auto 5.4 K/mm3 (1.3-6.7); Platelet Count Result 337 k/mm3 (150-375); Red Blood Count 4.23 M/mm3 (4.6-6.20); Red Cell Distribution Width 14.4 % (11.5-14.5)
[2024-07-13 13:04] LABS: Alanine Aminotransferase 17 U/L (6-50); Albumin Level 3.6 g/dL (3.5-5.1); Alkaline Phosphatase 106 U/L (38-126); Anion Gap 12 mmol/L (4-12); Aspartate Amino Transferase 28 U/L (17-59); Bilirubin,Total 0.7 mg/dL (0.2-1.3); Blood Urea Nitrogen 15 mg/dL (9-20); Calcium 8.6 mg/dL (8.4-10.2); Carbon Dioxide 22 mmol/L (22-30); Chloride 105 mmol/L (98-107); Estimated CRCL calculation 56 ml/min; Estimated Glomerular Filt Rate > 60; Glucose 194 mg/dL (65-110); Lipase 251 U/L (23-300); Potassium 3.9 mmol/L (3.4-5.0); Sodium 139 mmol/L (137-145)
[2024-07-13 13:15] LABS: Prothrombin Time 13.7 Seconds (11.1-14.7)
[2024-07-13 13:16] LABS: Partial Thromboplastin Time 23.7 Seconds (22.3-36.8); Troponin I 0.019 ng/mL (0.000-0.034)
[2024-07-13 13:52] LABS: Influenza A QL RT-PCR Negative (Negative); Influenza B QL RT-PCR Negative (Negative); RSV RNA, RT-PCR Negative (Negative); SARS-CoV-2 RNA PCR Negative (Negative)
[2024-07-13] MEDS: LORazepam INJ (*CRX) 2 MG/ML VIAL 0.5 MG IV PUSH (14:46)
--- NOTE | 2024-07-13 14:50 | ECG_ITS ---
Test Date: 2024-07-13 14:54:13 Measurements Intervals Baird Rate: 79 P: 15 OH: 175 QRS: 4 QRSD: 86 T: 128 QT: 399 QTc: 459 Interpretive Statements SINUS RHYTHM SEPTAL INFARCT, PROBABLY RECENT ST-T WAVE ABNORMALITY IN HIGH LATERAL LEADS- CONSIDER ISCHEMIA BASELINE ARTIFACT- I, II, III, AVR, AVL, AVF ABNORMAL ECG COMPARED WITH PRIOR ECG 07-13-24 12:10 NO SIGNIFICANT CHANGE Electronically Signed On 07-13-2024 16:58:50 SOLE POLISHER by Pascual Oakley D.O.
--- NOTE | 2024-07-13 15:35 | ED_ITS ---
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 Ongoing over last 7 days. Unable to identify aggravating or alleviating factors. Reports he will feel short of breath and have some chest discomfort. Recently had a STEMI and was catheterization x2. The 2nd time his stents were patent. Reports this does not feel like previous chest discomfort.Spoke with the daughter who reports she feels like he has also been nervous and more short of breath over last 2 days. History of turned with translator and interpreter, it was difficult to get information even then. Related Data Allergies Allergy/AdvReac Type Severity Reaction Status Date / Time No Known Allergies Allergy Verified 07/13/24 12:07 Review of Systems 2 Review of Systems: All systems reviewed & are unremarkable except as noted in HPI and below PMFSH Past Medical History Medical History (Updated 07/13/24 @ 16:59 by Bruno Aguilera MD) Coronary artery disease Diabetes Hyperlipidemia Hypertension Surgical History Surgical History (Updated 07/13/24 @ 15:39 by Bruno Aguilera MD) History of percutaneous coronary intervention Exam 2 Narrative: GENERAL: Well-appearing, well-nourished, and in no acute distress. HEAD: Normocephalic, atraumatic. ENT: Mucous membranes moist. CHEST: Clear to auscultation. No respiratory distress. HEART: Regular rate and rhythm. Normal peripheral pulses. ABDOMEN: Soft, nontender, nondistended. EXTREMITIES: Normal range of motion. 1+ edema. SKIN: Warm, dry, no rash. NEURO: Alert and oriented x3. PSYCH: Normal mood and affect. Course Course Emergency Course: Patient received some Ativan for anxiety. Son is at bedside reports patient is markedly improved in the patient reports this as well. Troponin negative x2. Son reports patient has been sitting at home and unable to sit still and is very restless and feels like he has to move around. Will prescribe Ativan for home. He has follow-up with his PCP early in the week. Vital Signs Vital signs: Vital Signs Temperature 98.4 F 07/13/24 11:45 Pulse Rate 87 07/13/24 11:45 Respiratory Rate 21 H 07/13/24 11:45 Blood Pressure 144/76 H 07/13/24 11:45 Pulse Oximetry 99 07/13/24 11:45 Oxygen Delivery Room Air 07/13/24 11:45 Temperature 98.4 F 07/13/24 11:45 Pulse Rate 81 07/13/24 14:04 Respiratory Rate 20 07/13/24 14:04 Blood Pressure 142/92 H 07/13/24 14:04 Pulse Oximetry 100 07/13/24 14:04 Oxygen Delivery Room Air 07/13/24 14:04 MDM - Chest Pain Lab Data 07/13/24 12:44 07/13/24 12:44 Labs: Lab Results 07/13/24 07/13/24 07/13/24 Range/Units 12:44 12:57 15:03 WBC 8.0 (4.5-10.0) K/mm3 RBC 4.23 L (4.6-6.20) M/mm3 Hgb 12.0 L (14.0-18.0) g/dL Hct 36.8 L (42.0-52.0) % MCV 87.0 (80-100) fl MCH 28.4 (26-34) pg MCHC 32.6 (32-36) g/dl RDW 14.4 (11.5-14.5) % Plt Count 337 (150-375) k/mm3 MPV 10.7 H (7.4-10.4) fl Immature Gran % (Auto) 0.4 (0-0.5) % Neut % (Auto) 67.0 (45.5-73.1) % Lymph % (Auto) 22.9 (18.3-44.2) % Edmunds % (Auto) 7.7 (2.6-8.5) % Eos % (Auto) 1.1 (0-4.4) % Baso % (Auto) 0.9 (0.2-1.2) % Lymph # (Auto) 1.84 (0.9-3.2) K/mm3 Edmunds # (Auto) 0.6 (0.1-0.6) K/mm3 Eos # (Auto) 0.1 (0-0.3) K/mm3 Baso # (Auto) 0.1 (0.0-0.1) K/mm3 Abs Immat Gran (auto) 0.03 (0.00-0.031) K/mm3 Absolute Neuts (auto) 5.4 (1.3-6.7) K/mm3 Absolute Nucleated RBC 0.000 (0.0-0.012) K/mm3 Nucleated RBC % 0.0 (0.0-0.2) % PT 13.7 (11.1-14.7) Seconds INR 1.0 APTT 23.7 (22.3-36.8) Seconds Sodium 139 (137-145) mmol/L Potassium 3.9 (3.4-5.0) mmol/L Chloride 105 (98-107) mmol/L Carbon Dioxide 22 (22-30) mmol/L Anion Gap 12 (4-12) mmol/L BUN 15 (9-20) mg/dL Creatinine 0.88 (0.7-1.3) mg/dL Estim Creat Clear Calc 56 ml/min Estimated GFR > 60 (59 - ) Glucose 194 H (65-110) mg/dL Calcium 8.6 (8.4-10.2) mg/dL Total Bilirubin 0.7 (0.2-1.3) mg/dL AST 28 (17-59) U/L ALT 17 (6-50) U/L Alkaline Phosphatase 106 (38-126) U/L Troponin I 0.019 0.018 (0.000-0.034) ng/mL Total Protein 8.0 (6.3-8.2) g/dL Albumin 3.6 (3.5-5.1) g/dL Lipase 251 (23-300) U/L Influenza A (RT-PCR) Negative (Negative) Influenza B (RT-PCR) Negative (Negative) RSV (RT-PCR) Negative (Negative) SARS-CoV-2 RNA (RT-PCR) Negative (Negative) Imaging Data Radiologist's impression: ITS Impressions Chest X-Ray 07/13/24 13:03 IMPRESSION: 1. No acute cardiopulmonary disease. ECG Data EKG #1: ECG completion date: 07/13/24 ECG completion time: 11:58 EKG Interpretation: normal rate (82), sinus rhythm, non-specific ST changes, normal QRS, normal QT, NL axis and other (Biphasic T-wave in V2 that was present on previous EKG after PCI.) EKG #2: ECG completion date: 07/13/24 ECG completion time: 12:10 EKG Interpretation: normal rate (85), sinus rhythm, normal QRS, normal QT, NL axis, other (Same biphasic T-wave in V2) and no acute changes Discharge Plan Discharge Clinical Impression: Anxiety Patient Disposition: Home, Self-Care Condition: Stable Instructions: Anxiety (ED) Additional Instructions: Please return to the emergency department if you develop severe and persistent chest pain, difficulty breathing, dizziness, leg swelling or if you are coughing up blood as these can be signs of a medical emergency. Please call your doctor for a follow up appointment to determine the need for further testing. Patient Language: Amharic Prescriptions: New lorazepam [Ativan] 0.5 mg tablet 0.5 mg PO TID PRN (Reason: anxiety) Qty: 14 0RF Follow-up/Referrals: Nikolas,Donavon Chaidez MD [Primary Care Provider] -
[2024-07-13 15:44] LABS: Troponin I 0.018 ng/mL (0.000-0.034)
== END 2024-07-13 17:26 | disposition home or self-care (01) ==
PROVIDERS: Emergency Medicine; Emergency Provider Emergency Medicine; PCP Family Medicine Sports Medicine
DX: F41.9 Anxiety disorder, unspecified (principal); Z20.822 Contact with and (suspected) exposure to COVID-19; I25.2 Old myocardial infarction; I10 Essential (primary) hypertension; I25.10 Atherosclerotic heart disease of native coronary artery without angina pectoris; E11.9 Type 2 diabetes mellitus without complications; E78.5 Hyperlipidemia, unspecified; Z95.5 Presence of coronary angioplasty implant and graft; R94.31 Abnormal electrocardiogram [ECG] [EKG]
CPT/HCPCS: 36415; 71045; 80053; 83690; 84484; 85025; 85610; 85730; 87637; 93005; 96374; 99284; J2060

== ENCOUNTER 2024-07-17 08:25 | Inpatient (IN) | payer OTHER, SELFPAY ==
[2024-07-17] VITALS (9 sets, daily range): BP systolic 135–156; BP diastolic 72–98; PULSE 67–88; RESP 14–24; TEMP 36.4–36.8; O2SAT 97–100; BMI 21.9
--- NOTE | ~2024-07-17 | XR_ITS ---
EXAMINATION: XR shoulder LT min 2V DATE: 07/17/2024 18:57 INDICATION: Left acromion fracture. TECHNIQUE: 3 views of left shoulder were obtained. COMPARISON: Chest CT 06/26/24 FINDINGS: There is an old comminuted fracture of distal left clavicle with nonunion. There is mild os teoarthritis of glenohumeral joint and moderate osteoarthritis of the acromioclavicular joint. IMPRESSION: 1. 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 2. Polyarticular osteoarthritis. Reviewed, dictated and finalized at location A. D DESIGNER
--- NOTE | ~2024-07-17 | XR_ITS ---
EXAMINATION: XR chest 2V 07/17/2024 09:28 INDICATION: Chest pain PROCEDURE: AP and lateral views of the chest COMPARISON: 07/13/2024 FINDINGS: The lungs are clear. The cardiomediastinal silhouette is within normal limits. There are no pleural effusions. There is no pneumothorax suspected. There are surgical changes consistent wit h internal fixation of right fourth-ninth rib fractures. There is a left acromion fracture which was not seen on prior examination. IMPRESSION: 1: NO ACUTE CARDIOPULMONARY DISEASE. 2: Left acromion fracture with nonunion, not visualized on prior examination. Reviewed, dictated and finalized at location [] AL PRESENTATION MANAGER
--- NOTE | ~2024-07-17 | XR_ITS ---
EXAMINATION: XR scapula LT DATE: 07/17/2024 18:57 INDICATION: Left acromion fracture. TECHNIQUE: 2 views of left scapula were obtained. COMPARISON: Chest CT 06/26/2024 FINDINGS: There is an old comminuted fracture of distal left clavicle with nonunion. There are old he aled left rib fractures. No acute fracture. There is mild osteoarthritis of glenohumeral joint and mo derate osteoarthritis of acromioclavicular joint. IMPRESSION: 1. 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 2. Polyarticular osteoarthritis. Reviewed, dictated and finalized at location A. ER INSPECTOR
--- NOTE | ~2024-07-17 | XR_ITS ---
EXAMINATION: XR shoulder RT min 2V DATE: 07/18/2024 09:01 INDICATION: Right shoulder pain post fall TECHNIQUE: AP internally and externally rotated, AP oblique externally rotated and transscapular Y vi ews of the right shoulder were obtained. COMPARISON: None FINDINGS: Normal alignment at the right shoulder. There are plain screw fixations along old posterolateral righ t fourth-ninth rib fractures. Additional old healed fractures of the posterolateral right second and third ribs without fixation. No acute fractures identified. Glenohumeral joint space is normal. Mild right acromioclavicular osteoarthritis. Soft tissues are unremarkable. Visualized portions of the [place] gs are clear. IMPRESSION: Mild right acromioclavicular osteoarthritis. No acute osseous abnormality. Reviewed, dictated and finalized at location A. MACHINE OPERATOR
--- NOTE | 2024-07-17 08:37 | ECG_ITS ---
Test Date: 2024-07-17 08:37:28 Measurements Intervals [place] Rate: 88 P: 32 CO: 161 QRS: 24 QRSD: 93 T: 133 QT: 381 QTc: 462 Interpretive Statements SINUS RHYTHM SEPTAL INFARCT, PROBABLY RECENT ST-T WAVE ABNORMALITY IN HIGH LATERAL LEADS- CONSIDER ISCHEMIA BASELINE ARTIFACT- I, II, III, AVR, AVL, AVF, V1-V6 ABNORMAL ECG Compared to ECG 07/13/2024 14:54:13 NO SIGNIFICANT CHANGE Electronically Signed On 07-17-2024 15:36:50 VIDEO MACHINES MECHANIC by Pascual Oakley D.O.
[2024-07-17 08:51] LABS: Basophils Percent Auto 0.6 % (0.2-1.2); Eosinophils Absolute Auto 0.1 K/mm3 (0-0.3); Eosinophils Percent Auto 1.3 % (0-4.4); Hematocrit 35.4 % (42.0-52.0); Hemoglobin 11.1 g/dL (14.0-18.0); Immature Granulocyte Absolute 0.03 K/mm3 (0.00-0.031); Immature Granulocyte Percent A 0.4 % (0-0.5); Lymphocytes Absolute Auto 1.75 K/mm3 (0.9-3.2); Lymphocytes Percent Auto 25.5 % (18.3-44.2); Mean Corpuscular HGB Conc 31.4 g/dl (32-36); Mean Corpuscular Hemoglobin 27.8 pg (26-34); Mean Corpuscular Volume 88.7 fl (80-100); Mean Platelet Volume 12.5 fl (7.4-10.4); Monocytes Absolute Auto 0.6 K/mm3 (0.1-0.6); Monocytes Percent Auto 8.2 % (2.6-8.5); Neutrophils Absolute Auto 4.4 K/mm3 (1.3-6.7); Platelet Count Result 194 k/mm3 (150-375); Red Blood Count 3.99 M/mm3 (4.6-6.20); Red Cell Distribution Width 14.7 % (11.5-14.5); White Blood Count 6.9 K/mm3 (4.5-10.0)
--- NOTE | 2024-07-17 08:56 | PC.NURSE ---
Patient given sublingual nitro pill per verbal from Dr Caballero. Chest pain is at a 4/10 prior to nitro
[2024-07-17 09:02] LABS: Alanine Aminotransferase 16 U/L (6-50); Albumin Level 3.2 g/dL (3.5-5.1); Alkaline Phosphatase 88 U/L (38-126); Anion Gap 8 mmol/L (4-12); Aspartate Amino Transferase 20 U/L (17-59); Bilirubin,Total 0.8 mg/dL (0.2-1.3); Blood Urea Nitrogen 14 mg/dL (9-20); Calcium 8.4 mg/dL (8.4-10.2); Carbon Dioxide 23 mmol/L (22-30); Chloride 105 mmol/L (98-107); Estimated CRCL calculation 57 ml/min; Estimated Glomerular Filt Rate > 60; Glucose 294 mg/dL (65-110); Potassium 3.2 mmol/L (3.4-5.0); Sodium 136 mmol/L (137-145)
--- NOTE | 2024-07-17 09:04 | PC.NURSE ---
Spoke with patient's daughter for update
[2024-07-17] MEDS: NITROGLYCERIN SL 0.4 MG TABLET (09:05)
--- OUTSIDE RECORDS SUMMARY | 2024-07-17 09:06 | XMS_ITS | Clinical Summary ---
Author Organization [facility] Address [address] [place] [address] Care Team Providers Care Cut Press Operator Name Role Phone Unknown, Provider Primary Care Provider Donavon Holguin MD Unavailable [phone] Source Comments [facility],non-owned Affiliates and Associated Physician Practices is amultiple site organization consisting of ambulatory clinics and hospital sitesin [place], [place], [place] and [place]. This disclosure is being madepursuant to the Care Everywhere program and may not contain all information available regarding this patient. Last updated 18.[facility] Allergies Active Allergy Reactions Criticality Noted Date [...] tablet 01/01/2023 Active Blood Glucose Monitoring Suppl (Oz[employer] Verio Flex System) w/Device KIT USE DIRECTED THREE TIMES DAILY 01/01/2023 Active erythromycin (Romycin) 5 MG/GM ophthalmic ointment 03/23/2023 Active Bflyuch Ultra test strip USE TO TEST FOUR TIMES DAILY 03/27/2023 Active TRUEplus 5-Bevel Pen [place] 32G X 4 MM MISC USE TO INJECT INSULIN UP TO 5 TIMES DAILY 07/11/2023 Active TRUEplus Insulin Syringe 30G X 5/16 0.5 ML MISC USE DIRECTED EVERY DAY 01/01/2023 Active Lancets (GonwayTOUCH DELICA PLUS 33G EXTRA FINE LANCET) TEST [...] original. Could not [facility] afford to provide a Home Health nurse [...] Follow up in: three months with PCP, Block Cuber, Pediatric Nurse, College Or University Business Manager, Established eye healthcare architect and Postal Service Window Clerk Last Assessment & Plan: Not on any [...] Follow up in: three months with PCP, Block Cuber, Pediatric Nurse, College Or University Business Manager, Established eye healthcare architect and Postal Service Window Clerk Infected wound 04/12/2020 Sacral wound 02/19/2020 Urinary [...] Office Visit [facility] - Ophthalmology [address] [place] [address] [phone] Health Maintenance Due Date Last Done Comments [...] this topic Medical Devices Implanted Type Area Drug Abuse Worker Device Identifier Shelf Expiration Date Model / Serial / Lot Gd Pin Orth 450mm 3.2mm Cocr Xtd Acc Implanted:Qty: 1 on 01/31/2020 by Dipesh Felix MD at [facility] Right: Sacral Iliac Joint [employer] [id number] / / Wshr 12.7mm 6.5mm Set Unv Orth Ss 1mm Implanted:Qty: 1 on 01/31/2020 by Dipesh Felix MD at [facility] Right: Sacral Iliac Joint [employer] [id number] / / Cannulated Screw, 4.0mm X40mm 1/2 Thread Implanted:Qty: 2 on 01/31/2020 by Dipesh Felix MD at [facility] Right: Ankle [id number] / / 8.0 X 9.5 Fully Threaded Screw Implanted:Qty: 1 on 01/31/2020 by Dipesh Felix MD at [facility] [id number] / / Plate 8 Hl Unv Matrixrib Ti Bone Nonster Implanted:Qty: 5 on 02/05/2020 by Dipesh Hernandez MD at [facility] Right: Chest Wall Synthes Usa 04.501.009 / / 2.7 Mm Matrixrib Locking Screw, Self-Drilling, 11mm Implanted:Qty: 35 on 02/05/2020 by Dipesh Hernandez MD at [facility] Right: Chest Wall 04.501.211.0 1 / / 2.7 Mm Matrixrib Locking Screw, Self-Drilling, 12mm Implanted:Qty: 2 on 02/05/2020 by Dipesh Hernandez MD at [facility] Right: Chest Wall 04.501.212.0 1 / / Plate 16 Hl Precontr Lck Lopro 4th Rb Implanted:Qty: 1 on 02/05/2020 by Dipesh Hernandez MD at [facility] Right: Chest Wall [employer] 04.501.004 / / Clareon Uv Iol Ccaoto +23.0d Implanted:Qty: 1 on 09/28/2023 by Simeon Cannon MD at [facility] Left: Eye [employer] 02/20/2027 CCAOTO+23.0D / [id number] / N/A [employer] Iol Aspheric Uv Absorbing Iol Implanted:Qty: 1 on 10/12/2023 by Simeon Cannon MD at [facility] Right: Eye [employer] 02/18/2027 CCA0T0 +23.5D / [id number] / NA Procedures Procedure Name Priority Date/Time Associated Diagnosis Comments COMPREHENSIVE METABOLIC PANEL STAT 06/30/2020 2:29 PM MANAGER RISK HEMOGLOBIN A1C Routine 04/18/2020 11:09 AM [facility] from Last 3 Months or Most Recently Relevant to Health Maintenance Results * (ABNORMAL) COMPREHENSIVE METABOLIC PANEL (06/30/2020 2:29 PM [facility]) BUN 29(H) 7 - 26 mg/dL 06/30/2020 3:00 PM [facility] Creatinine 1.2 0.6 - 1.2 mg/dL 06/30/2020 3:00 PM [facility] Sodium 138 136 - 145 mmol/L 06/30/2020 3:00 PM [facility] Potassium 3.7 3.5 - 4.5 mmol/L 06/30/2020 3:00 PM [facility] Chloride 96(L) 98 - 107 mmol/L 06/30/2020 3:00 PM [facility] CO2 28 22 - 29 mmol/L 06/30/2020 3:00 PM [facility] Glucose 144(H) 70 - 115 mg/dL 06/30/2020 3:00 PM [facility] Calcium 8.8 8.4 - 10.2 mg/dL 06/30/2020 3:00 PM [facility] Protein Total 6.5 6.0 - 8.3 g/dL 06/30/2020 3:00 PM [facility] Albumin 2.8(L) 3.4 - 5.0 g/dL 06/30/2020 3:00 PM [facility] Bilirubin Total 0.4 0.2 - 1.2 mg/dL 06/30/2020 3:00 PM [facility] Alkaline Phosphatase 108 40 - 150 Units/L 06/30/2020 3:00 PM [facility] ALT 20 0 - 55 Units/L 06/30/2020 3:00 PM [facility] AST 17 5 - 34 Units/L 06/30/2020 3:00 PM [facility] Anion Gap 18 8 - 18 06/30/2020 3:00 PM [facility] BUN/Creatinine Ratio 24(H) 7 - 23 06/30/2020 3:00 PM [facility] Osmolality Calculated 294 270 - 300 mOsm/kg 06/30/2020 3:00 PM [facility] Albumin/Globulin Ratio 0.8(L) 1.1 - 2.3 06/30/2020 3:00 PM [facility] eGFR 60(L) >60 mL/min/1.7 3 m2 06/30/2020 3:00 PM [facility] Blood BLOOD SPECIMEN / Unknown Venipuncture / Unknown 06/30/2020 2:29 PM MANAGER RISK 06/30/2020 2:37 PM [facility] Shaggy James MD LAB - CHEMISTRY KATHY CAMPA [facility] [address] [place] [address], [facility] [phone] * (ABNORMAL) HEMOGLOBIN A1C (04/18/2020 11:09 AM [facility]) Hemoglobin A1c 7.6(H) 4.4 - 6.3 % 04/19/2020 9:00 AM [facility] Estimated Average Glucose 171 mg/dL 04/19/2020 9:00 AM [facility] Comment: HbA1c Interpretation: Treatment target values recommended by ADA and other clinical organizations should be used to evaluate metabolic control in patients. Treatment Target Values: Normal : < 5.7% Pre-diabetes: 5.7-6.4% Diabetes: Equal to or greater than 6.5% Reference: [place] Diabetes Association Standards of Care in Diabetes -2014 In patients 70 years and older consider HbA1c target range of 7.0-7.5% Reference: Diabetes Mellitus in Older People: Position Statement on behalf of the International Association of Gerontology and Geriatrics (IAGG), the Diabetes Working Republican for Older People (EDWPOP), and the International Task Force of Experts in Diabetes. Ritesh Srinivasan, et al. J [place] Medical Directors Association. 2012 Test results diagnostic of diabetes should be repeated for confirmation. The Sebia Capillary 2 assay for the measurement of HbA1c is a National Glycohemoglobin Standardization Program (NGSP)certified method. Blood BLOOD SPECIMEN / Unknown Lab Venipuncture / Unknown 04/18/2020 11:09 AM MANAGER RISK 04/18/2020 11:40 AM MANAGER RISK Narrative [facility] - 04/19/2020 9:00 AM MANAGER RISK note^note Zhane Granger MD LAB - CHEMISTRY OR DERABLES [facility] [address] [place] [address], [facility] [phone] from Last 3 Months or Most Recently [...] 3:26 PM 02/19/2020 5:52 PM Care Teams Cut Press Operator Relationship Specialty Start Date End Date Unknown, Provider PCP - General 08/30/23 Donavon Connor MD Family Medicine 08/30/23
--- OUTSIDE RECORDS SUMMARY | 2024-07-17 09:06 | XMS_ITS | Referral Summary ---
Author Organization [facility] Address [address] [place] [address] Care Team Providers Care Manager Residential Name Role Phone Unknown, Provider Primary Care Provider Donavon Holguin MD Unavailable [phone] Source Comments [facility],non-owned Affiliates and Associated Physician Practices is amultiple site organization consisting of ambulatory clinics and hospital sitesin [place], [place], [place] and [place]. This disclosure is being madepursuant to the Care Everywhere program and may not contain all information available regarding this patient. Last updated 18.[facility] Allergies Active Allergy Reactions Criticality Noted Date [...] tablet 01/01/2023 Active Blood Glucose Monitoring Suppl (AppMesh Verio Flex System) w/Device KIT USE DIRECTED THREE TIMES DAILY 01/01/2023 Active erythromycin (Romycin) 5 MG/GM ophthalmic ointment 03/23/2023 Active AllDigitaluch Ultra test strip USE TO TEST FOUR TIMES DAILY 03/27/2023 Active TRUEplus 5-Bevel Pen [place] 32G X 4 MM MISC USE TO INJECT INSULIN UP TO 5 TIMES DAILY 07/11/2023 Active TRUEplus Insulin Syringe 30G X 5/16 0.5 ML MISC USE DIRECTED EVERY DAY 01/01/2023 Active Lancets (TerraSpark GeosciencesTOUCH DELICA PLUS 33G EXTRA FINE LANCET) TEST [...] original. Could not [facility] [place] afford to provide a Home Health nurse [...] Follow up in: three months with PCP, Band Head Saw Operator, Purchasing Director, Weaver Wire Loom, Established eye child care specialist and Screwhead Polisher Last Assessment & Plan: Not on any [...] Follow up in: three months with PCP, Band Head Saw Operator, Purchasing Director, Weaver Wire Loom, Established eye child care specialist and Screwhead Polisher Infected wound 04/12/2020 Sacral wound 02/19/2020 Urinary [...] Description 11/27/2024 10:30 AM CDT Office Visit [facility] - Ophthalmology [address] [place] [address] Medical Devices Implanted Type Area Machine Sneller Device Identifier Shelf Expiration Date Model / Serial / Lot Gd Pin Orth 450mm 3.2mm Cocr Xtd Acc Implanted:Qty: 1 on 01/31/2020 by Dipesh Felix MD at [facility] Right: Sacral Iliac Joint [employer] [id number] / / Wshr 12.7mm 6.5mm Set Unv Orth Ss 1mm Implanted:Qty: 1 on 01/31/2020 by Dipesh Felix MD at [facility] Right: Sacral Iliac Joint [employer] [id number] / / Cannulated Screw, 4.0mm X40mm 1/2 Thread Implanted:Qty: 2 on 01/31/2020 by Dipesh Felix MD at [facility] Right: Ankle [id number] / / 8.0 X 9.5 Fully Threaded Screw Implanted:Qty: 1 on 01/31/2020 by Dipesh Felix MD at [facility] [id number] / / Plate 8 Hl Unv Matrixrib Ti Bone Nonster Implanted:Qty: 5 on 02/05/2020 by Dipesh Hernandez MD at [facility] Right: Chest Wall [employer] .009 / / 2.7 Mm Matrixrib Locking Screw, Self-Drilling, 11mm Implanted:Qty: 35 on 02/05/2020 by Dipesh Hernandez MD at [facility] Right: Chest Wall 501.211.0 1 / / 2.7 Mm Matrixrib Locking Screw, Self-Drilling, 12mm Implanted:Qty: 2 on 02/05/2020 by Dipesh Hernandez MD at [facility] Right: Chest Wall 04.501.212.0 1 / / Plate 16 Hl Precontr Lck Lopro 4th Rb Implanted:Qty: 1 on 02/05/2020 by Dipesh Hernandez MD at [facility] Right: Chest Wall [employer] 04.501.004 / / Clareon Uv Iol Ccaoto +23.0d Implanted:Qty: 1 on 09/28/2023 by Simeon Cannon MD at [facility] Left: Eye [employer] 02/20/2027 CCAOTO+23.0D / [id number] / N/A [employer] Iol Aspheric Uv Absorbing Iol Implanted:Qty: 1 on 10/12/2023 by Simeon Cannon MD at [facility] Right: Eye [employer] 02/18/2027 CCA0T0 +23.5D / [id number] / NA Procedures Procedure Name Priority Date/Time Associated Diagnosis Comments COMPREHENSIVE METABOLIC PANEL STAT 06/30/2020 2:29 PM DIRECTOR MEDICAL SAFETY HEMOGLOBIN A1C Routine 04/18/2020 11:09 AM DIRECTOR MEDICAL SAFETY from Last 3 Months or Most Recently Relevant to Health Maintenance Results * (ABNORMAL) COMPREHENSIVE METABOLIC PANEL (06/30/2020 2:29 PM DIRECTOR MEDICAL SAFETY) BUN 29(H) 7 - 26 mg/dL 06/30/2020 3:00 PM [facility] Creatinine 1.2 0.6 - 1.2 mg/dL 06/30/2020 3:00 PM [facility] Sodium 138 136 - 145 mmol/L 06/30/2020 3:00 PM [facility] Potassium 3.7 3.5 - 4.5 mmol/L 06/30/2020 3:00 PM [facility] Chloride 96(L) 98 - 107 mmol/L 06/30/2020 3:00 PM [facility] CO2 28 22 - 29 mmol/L 06/30/2020 3:00 PM [facility] Glucose 144(H) 70 - 115 mg/dL 06/30/2020 3:00 PM [facility] Calcium 8.8 8.4 - 10.2 mg/dL 06/30/2020 3:00 PM [facility] Protein Total 6.5 6.0 - 8.3 g/dL 06/30/2020 3:00 PM [facility] Albumin 2.8(L) 3.4 - 5.0 g/dL 06/30/2020 3:00 PM [facility] Bilirubin Total 0.4 0.2 - 1.2 mg/dL 06/30/2020 3:00 PM [facility] Alkaline Phosphatase 108 40 - 150 Units/L 06/30/2020 3:00 PM [facility] ALT 20 0 - 55 Units/L 06/30/2020 3:00 PM [facility] AST 17 5 - 34 Units/L 06/30/2020 3:00 PM [facility] Anion Gap 18 8 - 18 06/30/2020 3:00 PM [facility] BUN/Creatinine Ratio 24(H) 7 - 23 06/30/2020 3:00 PM [facility] Osmolality Calculated 294 270 - 300 mOsm/kg 06/30/2020 3:00 PM [facility] Albumin/Globulin Ratio 0.8(L) 1.1 - 2.3 06/30/2020 3:00 PM [facility] eGFR 60(L) >60 mL/min/1.7 3 m2 06/30/2020 3:00 PM [facility] Blood BLOOD SPECIMEN / Unknown Venipuncture / Unknown 06/30/2020 2:29 PM DIRECTOR MEDICAL SAFETY 06/30/2020 2:37 PM [facility] Shaggy James MD LAB - CHEMISTRY KATHY CAMPA [facility] [address] [place] [address] [phone] * (ABNORMAL) HEMOGLOBIN A1C (04/18/2020 11:09 AM [facility]) Hemoglobin A1c 7.6(H) 4.4 - 6.3 % 04/19/2020 9:00 AM [facility] Estimated Average Glucose 171 mg/dL 04/19/2020 9:00 AM [facility] Comment: HbA1c Interpretation: Treatment target values recommended by ADA and other clinical organizations should be used to evaluate metabolic control in patients. Treatment Target Values: Normal : < 5.7% Pre-diabetes: 5.7-6.4% Diabetes: Equal to or greater than 6.5% Reference: [place] Diabetes Association Standards of Care in Diabetes -2014 In patients 70 years and older consider HbA1c target range of 7.0-7.5% Reference: Diabetes Mellitus in Older People: Position Statement on behalf of the International Association of Gerontology and Geriatrics (IAGG), the Diabetes Working Alliance Party for Older People (EDWPOP), and the International Task Force of Experts in Diabetes. Ritesh Srinivasan, et al. J [place] Medical Directors Association. 2012 Test results diagnostic of diabetes should be repeated for confirmation. The Sebia Capillary 2 assay for the measurement of HbA1c is a National Glycohemoglobin Standardization Program (NGSP)certified method. Blood BLOOD SPECIMEN / Unknown Lab Venipuncture / Unknown 04/18/2020 11:09 AM DIRECTOR MEDICAL SAFETY 04/18/2020 11:40 AM DIRECTOR MEDICAL SAFETY Narrative [facility] - 04/19/2020 9:00 AM DIRECTOR MEDICAL SAFETY note^note Zhane Granger MD LAB - CHEMISTRY OR DERABLES [facility] [address] [place] [address], [facility] [phone] from Last 3 Months or Most Recently [...] 3:26 PM 02/19/2020 5:52 PM Care Teams Manager Residential Relationship Specialty Start Date End Date Unknown, Provider PCP - General 08/30/23 Donavon Connor MD Family Medicine 08/30/23
--- OUTSIDE RECORDS SUMMARY | 2024-07-17 09:07 | XMS_ITS | Clinical Summary ---
Author Organization [facility] Address [facility] [place] [address] Care Team Providers Care Refrigeration Unit Repairer Name Role Phone Donavon Connor MD Primary Care Provider [phone] Allergies Active Allergy Reactions Criticality Noted Date [...] Blood Pressure 90 tablet 04/15/20 24 Active Wjkxtuva-Abq-Xj -FA (, W/IRON & FA, OR)Indications: Nutritional [...] 5 04/13/20 24 025 Discontin ued(Reord er) Active Problems [...] complication, with long-term current use of insulin ([facility]) 05/25/2020 05/04/2022 Essential hypertension 05/25/202005/04 Pressure injury of contiguou s region involving back and buttock, stage 3 ([facility]) 05/25/2020 05/04/2022 Decreased mobility 02/10/2020 2 Fracture of left clavicle 01/26/2020 Fracture of manubrium 01/26/20202021 Fracture of medial malleolus of right tibia 01/26/2020 05/04/2022 L1 vertebral fracture ([facility]) 01/25/2020 05/04/2022 Diabetes mellitus ([facility]) 01/13/2014 2021 Encounters Date Type Department Care Team Description 07/15/2024 9:00 AM GASOLINE ENGINE ASSEMBLER [place] [address] Maida Bello, RANGELAND MANAGEMENT SPECIALIST RANGELAND MANAGEMENT SPECIALIST HOME VISIT 07/13/2024 Scan [facility] INFO SRVCS Scanned, Doc Med Group Image (SCAN) 07/11/2024 11:15 AM GASOLINE ENGINE ASSEMBLER Home Care Visit [address] [place] [address] [place] [address] Maida Bello, RANGELAND MANAGEMENT SPECIALIST RANGELAND MANAGEMENT SPECIALIST HOME VISIT 07/09/2024 12:00 PM GASOLINE ENGINE ASSEMBLER Home Care Visit [address] [address] Juliana Mcgrath, RN SN HOME VISIT 07/05/2024 11:30 AM GASOLINE ENGINE ASSEMBLER Home Care Visit [address] [address] Anna Viera, RN SN HOME VISIT 07/04/2024 12:30 PM GASOLINE ENGINE ASSEMBLER Home Care Visit [address] [address] Yuridia Sofia, OT OT INITIAL EVALUATION 07/04/2024 Scan [facility] INFO SRVCS Scanned, Doc Med Group 07/04/2024 Telephone [facility] - [place] [address] [place] [phone] Donavon Connor MD Advice 07/03/2024 3:00 PM GASOLINE ENGINE ASSEMBLER Home Care Visit [address] [place] [address] Devin Dean, PT PT INITIAL EVALUATION 07/03/2024 10:20 AM GASOLINE ENGINE ASSEMBLER [facility] - [place] [address] [place] [address] Donavon Connor MD TCM (Was admitted to [facility] for heart attack and was readmitted due to the Flu,Home health called to reconcile pt med list. States pt BP has been running low, has pitting edema in both legs refusing to use spirometer. States he may need a repeat BMP.///) 07/03/2024 Travel 07/02/2024 11:30 AM GASOLINE ENGINE ASSEMBLER Home Care Visit [address] [place] [address] [place] [address] Anna Viera, JEREMY SN OASIS START OF CARE 07/02/[address] [place] [address] [place] [address] Donavon Connor MD 07/02/2024 Plan of Care Documentation [address] [place] [address] [place] [address] 07/01/2024 Scan [facility] INFO SRVCS Scanned, Doc Med Group 07/01/[address] [place] [address] [place] [address] Scanned, Doc Hospital 07/01/[address] [place] [address] [place] [address] Donavon Connor MD Advise 06/27/2024 Scan [facility] INFO SRVCS Scanned, Doc Med Group Image (SCAN) 06/26/2024 Scan [facility] INFO SRVCS Scanned, Doc Med Group Ultrasound (SCAN); CT (SCAN) 06/26/2024 Telephone [facility] Family [facility] Sports [address] [phone] Donavon Connor MD Advice 06/24/2024 Scan [facility] INFO SRVCS Scanned, Doc Med Group Echo (SCAN) 06/24/2024 Telephone [facility] Sports [facility] [address] [place] [phone] Donavon Connor MD Refill Request 06/22/2024 Scan [facility] INFO SRVCS Scanned, Doc Med Group 06/22/2024 Scan [facility] INFO SRVCS Scanned, Doc Med Group Image (SCAN) 05/15/2024 9:00 AM GASOLINE ENGINE ASSEMBLER Home Care Visit [address] [place] [address] [place] [address] Catie Zabala, PT PT OASIS DISCHARGE 05/14/2024 Telephone [facility] Family [facility] - [address] [phone] Donavon Connor MD Refill Request 05/12/2024 Home Care Visit [address] [place] [address] Catie Zabala, PT [facility] CARE INTERDISCIPLINARY MTG 05/08/2024 1:45 PM GASOLINE ENGINE ASSEMBLER Home Care Visit [facility] Care [address] [address] Loki Mart, RANGELAND MANAGEMENT SPECIALIST RANGELAND MANAGEMENT SPECIALIST HOME VISIT 05/06/2024 12:45 PM GASOLINE ENGINE ASSEMBLER Home Care Visit [address] [address] Loki Mart, RANGELAND MANAGEMENT SPECIALIST RANGELAND MANAGEMENT SPECIALIST HOME VISIT 05/01/2024 1:00 PM GASOLINE ENGINE ASSEMBLER Home Care Visit [address] [address] Loki Mart, RANGELAND MANAGEMENT SPECIALIST RANGELAND MANAGEMENT SPECIALIST HOME VISIT 04/29/2024 1:45 PM GASOLINE ENGINE ASSEMBLER Home Care Visit [address] [address] Loki Mart, RANGELAND MANAGEMENT SPECIALIST RANGELAND MANAGEMENT SPECIALIST HOME VISIT 04/29/2024 11:00 AM GASOLINE ENGINE ASSEMBLER Home Care Visit [address] [address] Mounika Bingham RN SN DISCIPLINE DISCHARGE 04/24/2024 11:00 AM GASOLINE ENGINE ASSEMBLER Home Care Visit [facility] Care [address] [address] Loki Mart, RANGELAND MANAGEMENT SPECIALIST RANGELAND MANAGEMENT SPECIALIST HOME VISIT 04/23/2024 10:00 AM GASOLINE ENGINE ASSEMBLER Home Care Visit [address] [place] [address] [place] [address] Mounika Bingham RN SN HOME VISIT 04/22/2024 1:45 PM GASOLINE ENGINE ASSEMBLER [facility] [address] Care [facility] [place] [address] [place] [address] Marti Carlson, TONGUE BINDER TONGUE BINDER INITIAL EVALUATION 04/19/2024 10:20 AM GASOLINE ENGINE ASSEMBLER Office Visit [facility] Family and [facility] - [place] [address] [place] [address] Donavon Connor MD TCM (Constipation) 04/19/2024 Travel 04/18/2024 2:00 PM GASOLINE ENGINE ASSEMBLER Home Care Visit [address] [place] [address] [place] [address] Catie Zabala, PT PT INITIAL EVALUATION 04/18/2024 Telephone [facility] [address] [facility], [address] [place] [phone] Bobby Quiñonez MD Results 04/17/2024 Telephone [facility] Family [facility] - [place] [address] [place] [phone] Donavon Connor MD Refill Request 04/16/2024 10:30 AM GASOLINE ENGINE ASSEMBLER Home Care Visit [address] [place] [place] [address] [place] [address] Mounika Bingham, RN SN OASIS RESUMPTION OF CARE 04/16/2024 Orders Only [facility] - [place] [address] [place] [address] Donavon Connor MD 04/16/2024 Orders Only [facility] Family and [facility] Medicine - [place] [address] [place] [address] Donavon Connor MD 04/16/2024 Plan of Care Documentation [address] Care [facility] [address] [place], [place] [phone] from Last 3 Months Immunizations Name Administration [...] doctor or pharmacy Often 07/02/2024 [facility] Utilities Answer Date Recorded In the past 12 months has e Mobile Location, IP, oil, or water [employer] threatened to shut off services in your [...] than three times a week 12/30/2022 Attends Jewish Services Not on file 12/30 Do you belong to any clubs o r organizations such as synagogue groups, unions, fraternal or athletic groups, or [...] place to sleep or slept in a halfway (including now)? No 06/24/2023 Housing Stability Vital [...] time in the past 12 m [facility], were you homeless or living in a halfway (including now)? No 04/10/2024 Sex and Gender Information Value Date Recorded Sex Assigned at Male 04/09/2024 9:16 PM GASOLINE ENGINE ASSEMBLER Legal Sex Male 8:36 PM CDT Gender Identity Male 04/09/2024 9:16 PM GASOLINE ENGINE ASSEMBLER Sexual Orientation Straight 04/09/2024 9: 16 PM GASOLINE ENGINE ASSEMBLER Last Filed Vital Signs Vital Sign Reading Time Taken Comments Blood Pressure 124/78 07/15/2024 9:00 AM GASOLINE ENGINE ASSEMBLER Pulse 88 07/15/2024 9:00 AM GASOLINE ENGINE ASSEMBLER Temperature 36.3 C (97.4 F) 07/15/2024 9:00 AM GASOLINE ENGINE ASSEMBLER Respiratory Rate 18 07/15/2024 9:00 AM GASOLINE ENGINE ASSEMBLER Oxygen Saturation 97% 07/15/2024 9:00 AM GASOLINE ENGINE ASSEMBLER Inhaled Oxygen Concentration - - Weight 68.9 kg (152 lb) 07/03/2024 9:50 AM GASOLINE ENGINE ASSEMBLER Height 162.6 cm (5' 4 ) 07/03/2024 9:50 AM GASOLINE ENGINE ASSEMBLER Body Mass Index 26.09 07/03/2024 9:50 AM GASOLINE ENGINE ASSEMBLER Plan of Treatment Upcoming Encounters Date Type Department Care Team (Late st Contact Info) Description 07/18/2024 9:00 AM GASOLINE ENGINE ASSEMBLER [facility] Care [address] [place] [address] [place] [address] Maida Bello, RANGELAND MANAGEMENT SPECIALIST [address] [place] [address] 07/22/2024 3:30 PM GASOLINE ENGINE ASSEMBLER Appointment [facility] Care [address] [place] [address] [place] [address] Catie Zabala, PT [address] [place] [address] 01/06/2025 11:00 AM CDT [facility] - [facility] [address] [facility], [address] [place] [phone] Lai Anderson MD [address] [place] [address] Health Maintenance Due Date Last Done Comments Kidney Health Evaluation 1950 Pneumococcal Vaccine: 65+ Years (1 of 2 - PCV) 02/02/1954 DTaP, Tdap and Td Vaccines (1 - Tdap) 02/02/1967 Zoster Vaccines (1 of 2) 02/02/1998 RSV Immunization or 60+ Years (1 - 1-dose 75+ series) 02/02/2023 COVID-19 Vaccine (3 - season) 2024 11/13/2020, 10/22/2020 PHQ-2 (Physician Huger) 05/29/2024 04/19/2024 Hemoglobin A1C 08/30/2024 03/01/2024, 05/30, 12/30/2022, Additional history exists Lipid Panel 03/01/2025 03/01/2024, 08/0 08/2022, 12/30/2022, Additional history exists Influenza Adult (#1) [...] discharge planning Lifestyle No Beth Alvarez, RN Medical Devices Implanted Type Area Flotation Tender Helper Device Identifier Shelf Expiration Date Model / Serial / Lot Mesh Bard Marlex 3 X 6 [id number] - [id number] Implanted:Qty : 1 on 12/28/2021 by Abundio Valverde MD at [facility] Mesh Right: Abdomen [employer] [id number] 04/25/2026 [id number] / / [id number] Procedures Procedure Name Priority Date/Time Associated Diagnosis Comments IMAGE GENERIC 07/13/2024 IMAGE GENERIC 06/27/2024 CT GENERIC 06/26/2024 CT GENERIC 06/26/2024 ULTRASOUND GENERIC (SCAN ORDER) 06/26/2024 ECHO GENERIC (SCAN ORDER) 06/24/2024 IMAGE GENERIC Routine 06/22/2024 DIABETIC RETINOPATHY EXAM (NEGATIVE)(SCAN ORDER) Routine 04/15/2024 LIPID PANEL Routine 03/01/2024 9:46 AM CDT Primary hypertension Mixed hyperlipidemia Type 2 diabetes mellitus without complication, with long-term current use of insulin ([facility]) HEMOGLOBIN, GLYCOSYLATED Routine 03/01/2024 9:46 AM CDT Primary hypertension Mixed hyperlipidemia Type 2 diabetes mellitus without complication, with long-term current use of insulin ([facility]) from Last 3 Months or Most Recently Relevant to Health Maintenance Results * IMAGE GENERIC (07/13/2024) Only the most recent of3 resultswithin the time period is included. Anatomical Region Laterality Modality Other 07/13/2024 us [facility] Scanned SCANNING Final Resu lt * CT GENERIC (06/26/2024) Only the most recent of2 resultswithin the time period is included. Anatomical Region Laterality Modality Other 06/26/2024 us [facility] Scanned SCANNING Final Resu lt * ULTRASOUND GENERIC (SCAN ORDER) (06/26/2024) Anatomical Region Laterality Modality Other 06/26/2024 us [facility] Scanned SCANNING Final Resu lt * ECHO GENERIC (SCAN ORDER) (06/24/2024) Anatomical Region Laterality Modality Other 06/24/2024 us [facility] Scanned SCANNING Final Resu lt * DIABETIC RETINOPATHY EXAM (NEGATIVE) (04/15/2024) us [facility] Scanned SCANNING Final Resu lt Performing Organization Address City/[facility]/ZIP Co de Phone Number [facility] * (ABNORMAL) HEMOGLOBIN, GLYCOSYLATED (03/01/2024 9:46 AM CDT) HGB A1C 8.3(H) <5.7 % 03/01/2024 12:43 PM CDT [facility] Comment: ADA GUIDELINES 2010 5.7 TO 6.4% INCREASED RISK OF DIABETES > OR = 6.5% CONSISTENT WITH DIABETES ESTIMATED AVG GLUCOSE 192 mg/dL 03/01/2024 12:43 PM CDT [facility] 03/01/2024 9:46 AM CDT Donavon Connor MD LABORATORY Final Result [facility] [address] [place] [address], [place] [phone] * (ABNORMAL) LIPID PANEL (03/01/2024 9:46 AM CDT) CHOLESTEROL 216(H) <200 MG/DL 03/01/2024 3:31 PM CDT [facility] TRIGLYCERIDES 345(H) <150 MG/DL 03/01/2024 3:31 PM CDT [facility] HDL 31(L) >40.0 MG/DL 03/04/2024 3:44 PM CDT [facility] LDL (CALCULATED) 116(H) <100 MG/DL 03/04/2024 3:44 PM CDT [facility] NON HDL CHOLESTEROL 185(H) <130 MG/DL 03/04/2024 3:44 PM CDT [facility] CHOL/HDL RATIO 7.0(H) 0.0 - 4.5 03/04/2024 3:44 PM CDT [facility] VLDL CALCULATION 69(H) 5 - 55 MG/DL 03/01/2024 3:31 PM CDT [facility] LIPID INTERPRETATION 03/01/2024 3:31 PM CDT [facility] Comment: NIH CONCENSUS REPORT RECOMMENDATIONS: ADULT CHILD LOW RISK: CHOLESTEROL <200 <170 TRIGLYCERIDE <150 --- HDL >=60 --- LDL <100 <110 BORDERLINE: CHOLESTEROL 200-239 170-199 TRIGLYCERIDE 150-199 --- HDL 40-59 --- LDL 100-159 110-129 HIGH RISK: CHOLESTEROL >=240 >=200 TRIGLYCERIDE >=200 --- HDL <40 --- LDL >=160 >=130 03/01/2024 9:46 AM CDT Donavon Connor MD LABORATORY Final Result [facility] [address] [place] [address], [place] [phone] from Last 3 Months or Most Recently Relevant to Health Maintenance Additional Health Concerns 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
--- OUTSIDE RECORDS SUMMARY | 2024-07-17 09:07 | XMS_ITS | Referral Summary ---
Author Organization [facility] Address [address] [place] [address] Care Team Providers Care Sander Machine Name Role Phone No, Physician Primary Care Provider [phone] Bunny Ramires MD Unavailable [phone] Encounters Date Type Department Care Team Description 07/15/2024 Telephone [facility] Cardiology [address] [place] [phone] Gina Link MD 07/08/2024 2:00 PM [employer] Office Visit [facility] Cardiology [address] [place] [address] [address] [place] [address] Gina Link MD 07/02/2024 Orders Only [facility] Cardiology [address] [place] [address] [address] [place] [address] Gerhard Ratliff MD 06/29/2024 Orders Only [facility] [address] [place] [address] Allegra Shin MD 06/26/2024 Orders Only [facility] Cardiology [address] [facility] [address] [place] [phone] Peyton De Guzman MD from Last 3 [...] Active Problems Problem Noted Date Diagnosed Date Coronary artery disease involving nuiqsut heart 0 07/15/2024 Constipation, unspecified constipation type 08/2022 Assessment & Plan (07/31/2022 11:22 AM [employer]): No symptoms or signs of mechanical obstruction. [...] 07/30/2022 Assessment & Plan (07/31/2022 11:21 AM [employer]ER): On metformin 500 mg twice daily at [...] 07/30/2022 Assessment & Plan (07/31/2022 10:46 AM [employer]ER): Not on any treatment at home. BP well controlled, CTM and add medications if needed Benign prostatic hyperplasia without lower urinary tract symptoms 07/30/2022 Assessment & Plan (07/31/2022 10:44 AM [employer]ER): Patient was recently started on Flomax and finasteride at OSH. Patients son reported patient was experiencing difficulty urinating - continue home meds and pcp follow up for further management Stage 3a chronic kidney disease 07/30/2022 Assessment & Plan (07/31/2022 10:48 AM [employer]): Creatinine is 1.48, up from the most [...] on file Legal Sex Male 5:44 AM [employer] Gender Identity Not on file Sexual Orientation Not on file Last Filed Vital Signs Vital Sign Reading Time Taken Comments Blood Pressure 116/60 07/08/2024 1:05 PM [employer] Pulse 88 07/08/2024 1:05 PM [employer] Temperature 36.5 C (97.7 F) 07/31/2022 8:00 AM [employer] Respiratory Rate 16 07/31/2022 7:55 AM [employer] Oxygen Saturation 99% 07/08/2024 1:05 PM [employer] Inhaled Oxygen Concentration - - Weight 67.9 kg (149 lb 9.6 oz) 07/08/2024 1:05 P M [employer] Height 162.6 cm (5' 4 ) 07/08/2024 1:05 PM [employer] Body Mass Index 25.68 07/08/2024 1:05 PM [employer] Plan of Treatment Upcoming Encounters Date Type Department Care Team (Latest Contact Info) Description 07/23/2024 8:30 AM [employer] Hospital Encounter [facility] Cardiac Catheterization Lab [address] [place] [address] Gina Link MD [address] [address] Coronary artery disease involving nuiqsut heart, unspecified vessel or lesion type, unspecified whether angina present 07/23/2024 8:30 AM [employer] - 07/23/2024 10:30 AM [employer] Surgery 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 - [id number] Procedures Procedure Name Priority Date/Time Associated Diagnosis Comments CARDIOLOGY DOCUMENT SCAN Routine 07/01/2024 3:53 PM [employer] CARDIOLOGY DOCUMENT SCAN Routine 06/30/2024 3:49 PM [employer] CARDIOLOGY DOCUMENT SCAN Routine 06/29/2024 3:44 PM [employer] SCAN - RADIOLOGY/IMAGING 06/29/2024 CARDIOLOGY DOCUMENT SCAN Routine 06/28/2024 3:37 PM [employer] CARDIOLOGY DOCUMENT SCAN Routine 06/27/2024 3:32 PM [employer] CARDIOLOGY DOCUMENT SCAN Routine 06/26/2024 3:20 PM [employer] CARDIOLOGY DOCUMENT SCAN Routine 06/24/2024 3:16 PM [employer] CARDIOLOGY DOCUMENT SCAN Routine 06/23/2024 3:10 PM [employer] CARDIOLOGY DOCUMENT SCAN Routine 06/22/2024 3:04 PM [employer] CARDIOLOGY DOCUMENT SCAN Routine 06/22/2024 3:03 PM [employer] CARDIOLOGY DOCUMENT SCAN Routine 06/22/2024 3:00 PM [employer] EGFR Routine 07/31/2022 5:30 AM [employer] HEMOGLOBIN A1C Routine 07/30/2022 10:23 PM [employer] LIPID PANEL Routine 07/30/2022 10:23 PM [employer] from Last 3 Months or Most Recently Relevant to Health Maintenance Results * Cardiology Document Scan (07/01/2024 3:53 PM [employer]) Anatomical Region Laterality Modality Other us Gerhard Ratliff MD CV CARDIAC SERVICES PROCEDURES F inal Result * Cardiology Document Scan (06/30/2024 3:49 PM [employer]) Anatomical Region Laterality Modality Other Allegra Shin MD CV CARDIAC SERVICES PRO CEDURES Final Result * Cardiology Document Scan (06/29/2024 3:44 PM [employer]) Anatomical Region Laterality Modality Other Allegra Shin MD CV CARDIAC SERVICES PRO CEDURES Final Result * SCAN - RADIOLOGY/IMAGING (06/29/2024) Anatomical Region Laterality Modality Other Allegra Shin MD Final R esult * Cardiology Document Scan (06/28/2024 3:37 PM [employer]) Anatomical Region Laterality Modality Other Allegra Shin MD CV CARDIAC SERVICES PRO CEDURES Final Result * Cardiology Document Scan (06/27/2024 3:32 PM [employer]) Anatomical Region Laterality Modality Other us Gerhard Ratliff MD CV CARDIAC SERVICES PROCEDURES F inal Result * Cardiology Document Scan (06/26/2024 3:20 PM [employer]) Anatomical Region Laterality Modality Other Allegra Shin MD CV CARDIAC SERVICES PRO CEDURES Final Result * Cardiology Document Scan (06/24/2024 3:16 PM [employer]) Anatomical Region Laterality Modality Other Allegra Shin MD CV CARDIAC SERVICES PRO CEDURES Final Result * Cardiology Document Scan (06/23/2024 3:10 PM [employer]) Anatomical Region Laterality Modality Other us Peyton De Guzman MD CV CARDIAC SERVICES PROCEDU RES Final Result * Cardiology Document Scan (06/22/2024 3:04 PM [employer]) Anatomical Region Laterality Modality Other us Peyton De Guzman MD CV CARDIAC SERVICES PROCEDU RES Final Result * Cardiology Document Scan (06/22/2024 3:03 PM [employer]) Anatomical Region Laterality Modality Other Result [facility] us Peyton De Guzman MD CV CARDIAC SERVICES PROCEDU RES Final Result * Cardiology Document Scan (06/22/2024 3:00 PM [employer]) Anatomical Region Laterality Modality Other us Peyton De Guzman MD CV CARDIAC SERVICES PROCEDU RES Final Result * (ABNORMAL) eGFR (07/31/2022 5:30 AM [employer]) [facility] eGFR 54(L) 90 - 130 mL/min/1. 73 m2 [facility] Comment: Interpretive Data Reference Interval Normal [...] last reviewed 2021. Blood 07/31/2022 5:30 AM [employer] 07/31/2022 5:51 AM [employer] Lizabeth Strong MD LAB BLOOD ORDERABLES Fin al Result Performing Organization Address [facility] de Phone Number [facility] [place] [address] * (ABNORMAL) Hemoglobin A1c (07/30/2022 10:23 PM [employer]) [facility] Hgb A1C 10.7(H) 4.0 - 5.6 % [facility] Estimated Average Glucose 260 mg/dL [facility] Comment: The ADA recommends reporting an estimated Average Glucose (eAG) with all Hemoglobin A1c results using the equation derived from a study of 507 normal and diabetic adults. Minority populations were underrepresented and children were not included. (Diabetes Care 2020; 43(S1): S66-S76). The eAG is not equivalent to a fasting glucose. Blood 07/30/2022 10:2 3 PM [employer] 07/30/2022 10:39 PM [employer] us Lizabeth Strong MD LAB BLOOD ORDERABLES Fin al Result Performing Organization Address [facility] de Phone Number [facility] [place] [address] * (ABNORMAL) Lipid panel (07/30/2022 10:23 PM [employer]) Cholesterol 167 30 - 199 mg/dL [facility] Comment: Interpretive Data Ages < or [...] revised on 2018. Triglycerides 155(H) <=149 mg/dL [facility] Comment: Interpretive Data Ages < or [...] revised on 2018. HDL 43 >=40 mg/dL [facility] Comment: Interpretive Data Ages < or [...] on 2018. LDL, calculated 93 <=129 mg/dL [facility] Comment: Interpretive Data Ages < or [...] revised on 2018. Non-HDL Cholesterol 124 mg/dL [facility] Comment: Interpretive Data Ages < or = [...] last revised on 2018. Chol/HDL ratio 4 [facility] Blood 07/30/2022 10:2 3 PM [employer] 07/30/2022 10:39 PM [employer] Lizabeth Strong MD LAB BLOOD ORDERABLES Fin al Result Performing Organization Address City/State/[facility] Co de Phone Number [facility] [place] [address] from Last 3 Months or Most Recently Relevant to Health Maintenance Insurance [facility] Advance Directives For more information, please contact: [phone] * Full Code (Latest Code Status on File) Date Activated Date Inactivated Comments 07/30/2022 9:33 PM 07/31/2022 6:01 PM Care Teams Sander Machine Relationship Specialty Start Date End Date No, Physician PCP - General 07/30/22 Bunny Ramires MD 07/30/22
--- OUTSIDE RECORDS SUMMARY | 2024-07-17 09:07 | XMS_ITS | Patient Health Summary ---
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 electronically signed by CHRISTINA HERNANDEZ on 04/20/2020 12:31 PM . Narrative 04/20/2020 12:31 PM FINANCIAL ASSISTANT EXAMINATION: XR HIP RIGHT 2VW OR MORE [...] dislocation identified. Dictated by Jerzy Chaudhry MD (residential gas heat technician). I, Dr. CHRISTINA HERNANDEZ have personally reviewed and interpreted this examination/study. This report was electronically signed by CHRISTINA HERNANDEZ on 04/20/2020 12:31 PM . Sandoval Chávez MD DIAGNOSTIC IMAGING O RDERABLES * CULTURE BLOOD (04/18/2020 11:22 AM FINANCIAL ASSISTANT) Only the most recent of14 resultswithin the time period is included. Culture No growth day 5 CANDACE 04/23/2020 2:01 PM FINANCIAL ASSISTANT [facility] MICROBIOLOGY Blood PERIPHERAL BLOOD / Unknown Lab Venipuncture / Unknown 04/18/2020 11:22 AM FINANCIAL ASSISTANT 04/18/2020 11:36 AM FINANCIAL ASSISTANT Chad Rocha MD LAB - MICROBIOLOGY O RDERABLES [facility] MICROBIOLOGY [address] [place] [address], [facility] [phone] * (ABNORMAL) HEMOGLOBIN A1C (04/18/2020 11:09 AM FINANCIAL ASSISTANT) Only the most recent of2 resultswithin the time period is included. Hemoglobin A1c 7.6(H) 4.4 - 6.3 % 04/19/2020 9:00 AM [facility] Estimated Average Glucose 171 mg/dL 04/19/2020 9:00 AM [facility] Comment: HbA1c Interpretation: Treatment target values recommended by ADA and other clinical organizations should be used to evaluate metabolic control in patients. Treatment Target Values: Normal : < 5.7% Pre-diabetes: 5.7-6.4% Diabetes: Equal to or greater than 6.5% Reference: [place] [employer] Standards of Care in Diabetes -2014 In patients 70 years and older consider HbA1c target range of 7.0-7.5% Reference: Diabetes Mellitus in Older People: Position Statement on behalf of the International Association of Gerontology and Geriatrics (IAGG), the Diabetes Working Green Party for Older People (EDWPOP), and the International Task Force of Experts in Diabetes. Ritesh Srinivasan et al. J [place] [employer] Association. 2012 Test results diagnostic of diabetes should be repeated for confirmation. The Sebia Capillary 2 assay for the measurement of HbA1c is a National Glycohemoglobin Standardization Program (NGSP)certified method. Blood BLOOD SPECIMEN / Unknown Lab Venipuncture / Unknown 04/18/2020 11:09 AM FINANCIAL ASSISTANT 04/18/2020 11:40 AM FINANCIAL ASSISTANT Narrative [facility] - 04/19/2020 9:00 AM FINANCIAL ASSISTANT note^note Zhane Granger MD LAB - CHEMISTRY OR DERABLES Performing Organization Address City/[facility]/ZIP Co de Phone Number [address] [address], [facility] [phone] * FOLATE (04/18/2020 11:09 AM FINANCIAL ASSISTANT) Folate 10.4 7.0 - 31.4 ng/mL 04/18/2020 12:39 PM FINANCIAL ASSISTANT [facility] Blood BLOOD SPECIMEN / Unknown Lab Venipuncture / Unknown 04/18/2020 11:09 AM FINANCIAL ASSISTANT 04/18/2020 11:40 AM FINANCIAL ASSISTANT Zhane Granger MD LAB - CHEMISTRY OR DERABLES Performing Organization Address City/[facility]/ZIP Co de Phone Number [address] [address], [place] [phone] * VITAMIN B12 (04/18/2020 11:09 AM FINANCIAL ASSISTANT) Only the most recent of2 resultswithin the time period is included. Vitamin B12 239 213 - 816 pg/mL 04/18/2020 12:39 PM FINANCIAL ASSISTANT [facility] Blood BLOOD SPECIMEN / Unknown Lab Venipuncture / Unknown 04/18/2020 11:09 AM FINANCIAL ASSISTANT 04/18/2020 11:40 AM FINANCIAL ASSISTANT Zhane Granger MD LAB - CHEMISTRY OR DERABLES Performing Organization Address City/[facility]/ZIP Co de Phone Number [address] [address] [phone] * XR CHEST 1VW PORTABLE (04/18/2020 5:50 AM FINANCIAL ASSISTANT) Only the most recent of18 resultswithin the time period is included. Anatomical Region Laterality Modality Chest Radiographic Tavon ging 04/18/2020 10:3 0 AM FINANCIAL ASSISTANT Impressions 04/19/2020 12:14 PM FINANCIAL ASSISTANT FINDINGS/IMPRESSION: There is redemonstrated internal fixation of multiple right rib fractures. The lungs are hypoinflated with bronchovascular crowding. There is no focal consolidation, pleural effusion, or pneumothorax. The cardiomediastinal silhouette is normal. Displaced fractures of the left clavicle and multiple left ribs are grossly unchanged in osseous alignment. Dictated by Lobito Han MD (residential gas heat technician). Dr. CHRISTINA Bahena have personally reviewed and interpreted this examination/study. This report was electronically signed by CHRISTINA HERNANDEZ on 04/19/2020 12:14 PM . Narrative 04/19/2020 12:14 PM FINANCIAL ASSISTANT EXAMINATION: XR CHEST 1VW PORTABLE HISTORY: T14.8XXA: [...] osseous alignment. Dictated by Lobito Han MD (residential gas heat technician). Dr. CHRISTINA Bahena have personally reviewed and interpreted this examination/study. This report was electronically signed by CHRISTINA HERNANDEZ on 04/19/2020 12:14 PM . Chad Rocha MD DIAGNOSTIC IMAGING O RDERABLES * (ABNORMAL) URINALYSIS W/MICROSCOPIC NO CULTURE (04/18/2020 5:46 AM FINANCIAL ASSISTANT) Only the most recent of4 resultswithin the time period is included. Color UA Straw Straw, Yellow, Colorless 04/18/2020 6:23 AM [facility] Clarity UA Clear Clear, Slt Cloudy 04/18/2020 6:23 AM [facility] Specific [place] UA 1.008 1.005 - 1.030 04/18/2020 6:23 AM [facility] pH UA 7.0 5.0 - 8.0 pH 04/18/2020 6:23 AM [facility] Protein UA Negative Negative mg/dL 04/18/2020 6:23 AM [facility] Glucose UA 1+(A) Negative mg/dL 04/18/2020 6:23 AM [facility] Ketone UA Negative Negative mg/dL 04/18/2020 6:23 AM [facility] Bilirubin UA Negative Negative mg/dL 04/18/2020 6:23 AM [facility] Blood UA Negative Negative 04/18/2020 6:23 AM [facility] Nitrite UA Negative Negative 04/18/2020 6:23 AM [facility] Leukocyte Esterase Negative Negative 04/18/2020 6:23 AM [facility] Urobilinogen UA Negative Negative mg/dL 04/18/2020 6:23 AM [facility] RBC UA None Seen None Seen, 0-2, 3-5 /HPF 04/18/2020 6:23 AM [facility] WBC UA None Seen None Seen, 0-5 /HPF 04/18/2020 6:23 AM [facility] Squamous Epithelial Cells UA None Seen None Seen, 0-2 /HPF 04/18/2020 6:23 AM [facility] Urine URINE SPECIMEN OBTAINED BY CLEAN CATCH PROCEDURE / Unknown Collection / Unknown 04/18/2020 5:46 AM FINANCIAL ASSISTANT 04/18/2020 6:03 AM [facility] - 04/18/2020 6:23 AM FINANCIAL ASSISTANT note^note Chad Rocha MD LAB - URINALYSIS ORD ERABLES Performing Organization Address [facility]/ZIP Co de Phone Number [address] [address], [facility] [phone] * PTT [facility] (04/17/2020 11:38 PM FINANCIAL ASSISTANT) Only the most recent of19 resultswithin the time period is included. APTT 26.4 23.0 - 38.4 Seconds 04/18/2020 12:07 AM [facility] Comment:Suggested therapeuti c range for full dose I.V. unfractionated heparin therapy for venous thromboembolism is 71 to 109 seconds. Blood BLOOD SPECIMEN / Unknown Lab Venipuncture / Unknown 04/17/2020 11:38 PM FINANCIAL ASSISTANT 04/17/2020 11:59 PM [facility] - 04/18/2020 12:07 AM FINANCIAL ASSISTANT note^note Chad Rocha MD LAB - COAGULATION OR DERABLES Performing Organization Address [facility] Co de Phone Number [address] [address], [facility] [phone] * PT-INR [facility] (04/17/2020 11:38 PM FINANCIAL ASSISTANT) Only the most recent of8 resultswithin the time period is included. PT 12.8 12.1 - 14.8 Seconds 04/18/2020 12:06 AM [facility] INR 1.0 See Comment 04/18/2020 12:06 AM [facility] Comment:The suggested therap eutic range for standard coumadin (warfarin) therapy is an INR of 2.0-3.0. For high-risk patients (Mechanical Mitral Valve Prosthesis, etc.), the suggested prophylactic therapeutic range is an INR of 2.5-3.5. Blood BLOOD SPECIMEN / Unknown Lab Venipuncture / Unknown 04/17/2020 11:38 PM FINANCIAL ASSISTANT 04/17/2020 11:59 PM [facility] - 04/18/2020 12:06 AM FINANCIAL ASSISTANT note^note Chad Rocha MD LAB - COAGULATION OR DERABLES Performing Organization Address City/[facility]/ZIP Co de Phone Number [address] [address], [place] [phone] * TROPONIN I (04/17/2020 11:38 PM FINANCIAL ASSISTANT) Only the most recent of3 resultswithin the time period is included. Troponin I <0.010 <0.032 ng/mL 04/18/2020 12:26 AM FINANCIAL ASSISTANT [facility] Blood BLOOD SPECIMEN / Unknown Lab Venipuncture / Unknown 04/17/2020 11:38 PM FINANCIAL ASSISTANT 04/17/2020 6:15 PM FINANCIAL ASSISTANT Chad Rocha MD LAB - CHEMISTRY KATHY CAMPA Performing Organization Address City/[facility] Co de Phone Number [address] [address], [facility] [phone] * LACTIC ACID BLOOD (04/17/2020 11:38 PM FINANCIAL ASSISTANT) Only the most recent of2 resultswithin the time period is included. Pathologist [facility] Lactic Acid-Stat 1.9 0.5 - 2.2 mmol/L 04/18/2020 12:18 AM FINANCIAL ASSISTANT [facility] Blood BLOOD SPECIMEN / Unknown Lab Venipuncture / Unknown 04/17/2020 11:38 PM FINANCIAL ASSISTANT 04/17/2020 6:15 PM FINANCIAL ASSISTANT Chad Rocha MD LAB - CHEMISTRY KATHY CAMPA [address] [address], [place] [phone] * (ABNORMAL) C DIFFICILE GD AG + TOXIN A+B (03/21/2020 12:42 PM CDT) Interpretation C difficile Indeterm inate(A) Negative for toxigenic C. difficile 03/21/2020 8:57 PM CDT [facility] MICRO[facility] Stool STOOL SPECIMEN / Unknown Collection / Unknown 03/21/2020 12:42 PM CDT 03/21/2020 12:55 PM CDT Narrative [facility] MICROBIOLOGY - 03/21/2020 8:57 PM CDT Indeterminate results reflex to a C. difficile by PCR test. See separate report. Maycol Matthews MD LAB - MICROBIOLOGY O PEMA Performing Organization Address City/[facility]/ZIP Co de Phone Number [facility] MICROBIOLOG[facility] [address] [place] [address], [facility] [phone] * (ABNORMAL) C DIFFICILE BY PCR (03/21/2020 12:42 PM CDT) C difficile Toxin B Gene Detected( A) Not detected, Invalid 03/22/2020 6:19 PM CDT [facility] MICROBIOLOGY Stool STOOL SPECIMEN / Unknown Collection / Unknown 03/21/2020 12:42 PM CDT 03/21/2020 12:55 PM CDT Maycol Matthews MD LAB - MICROBIOLOGY O PEMA Performing Organization Address [facility]/ZIP Co de Phone Number [facility]CROBIOLOG[facility] [address] [place] [address], [facility] [phone] * CT ABDOMEN PELVIS WO CONTRAST (03/19/2020 [...] changed. Report dictated by Nicolás Kingston MD (residential gas heat technician). I, Dr. KAYLENE CAO M.D. have personally [...] changed. Report dictated by Nicolás Kingston MD (residential gas heat technician). Dr. KAYLENE Bahena M.D. have personally reviewed [...] these limitations, unremarkable renal ultrasound. Dictated by lEla Rothman MD (resident). Dr. JUNITO Bahena have [...] Not Established mmol/L 03/16/2020 12:02 PM CDT [facility] Urine URINE SPECIMEN OBTAINED BY CLEAN CATCH PROCEDURE / Unknown Collection / Unknown 03/16/2020 11:35 AM CDT 03/16/2020 11:46 AM CDT Maycol Matthews MD LAB - URINE CHEMISTR Y ORDERABLES [address] [address], [facility] [phone] * UREA NITROGEN URINE RANDOM (03/16/2020 11:35 AM CDT) Urea Nitrogen Random Urine 396 Not Established mg/dL 03/16/2020 12:02 PM CDT [facility] Urine URINE SPECIMEN OBTAINED BY CLEAN CATCH PROCEDURE / Unknown Collection / Unknown 03/16/2020 11:35 AM CDT 03/16/2020 11:46 AM CDT Maycol Matthews MD LAB - URINE CHEMISTR Y ORDERABLES Performing Organization Address [facility]/ZIP Co de Phone Number [address] [address], [place] [phone] * CREATININE URINE RANDOM (03/16/2020 11:35 AM CDT) Creatinine Urine 60 Not Established mg/dL 03/16/2020 12:02 PM CDT [facility] Comment:Result obtained by magui tellez. Urine URINE SPECIMEN OBTAINED BY CLEAN CATCH PROCEDURE / Unknown Collection / Unknown 03/16/2020 11:35 AM CDT 03/16/2020 11:46 AM CDT Maycol Matthews MD LAB - URINE CHEMISTR Y ORDERABLES Performing Organization Address [facility] Co de Phone Number [address] [address], [place] [phone] * CULTURE URINE (03/15/2020 4:57 PM CDT) Only the most recent of4 resultswithin the time period is included. Culture Urine No growth (<100 CFU/mL) CANDACE 03/17/2020 1:20 AM CDT [facility] Urine URINE SPECIMEN OBTAINED VIA INDWELLING URINARY CATHETER / Unknown Collection / Unknown 03/15/2020 4:57 PM CDT 03/15/2020 6:02 PM CDT Geoffrey Rogers MD LAB - MICROBIOLOGY O RDERABLES Performing Organization Address City/[facility]/ZIP Co de Phone Number [facility] [address] [place] [address], [facility] [phone] * (ABNORMAL) URINALYSIS REFLEX TO MICROSCOPIC NO CULTURE (03/15/2020 1:28 PM CDT) Color UA Deana(A) Straw, Yellow, Colorless 03/15/2020 2:11 PM [facility] Clarity UA Turbid(A) Clear, Slt Cloudy 03/15/2020 2:11 PM [facility] Specific [place] UA 1.023 1.005 - 1.030 03/15/2020 2:11 PM [facility] pH UA 5.0 5.0 - 8.0 pH 03/15/2020 2:11 PM [facility] Protein UA 2+(A) Negative mg/dL 03/15/2020 2:11 PM [facility] Glucose UA Negative Negative mg/dL 03/15/2020 2:11 PM [facility] Ketone UA Trace(A) Negative mg/dL 03/15/2020 2:11 PM [facility] Bilirubin UA Negative Negative mg/dL 03/15/2020 2:11 PM [facility] Blood UA 3+(A) Negative 03/15/2020 2:11 PM [facility] Nitrite UA Negative Negative 03/15/2020 2:11 PM [facility] Leukocyte Esterase 3+(A) Negative 03/15/2020 2:11 PM [facility] Urobilinogen UA Negative Negative mg/dL 03/15/2020 2:11 PM [facility] RBC UA >100(A) None Seen, 0-2, 3-5 /HPF 03/15/2020 2:11 PM [facility] WBC UA >100(A) None Seen, 0-5 /HPF 03/15/2020 2:11 PM [facility] WBC Clumps Many(A) None /HPF 03/15/2020 2:11 PM [facility] Bacteria UA 1+(A) None, Trace /HPF 03/15/2020 2:11 PM [facility] Squamous Epithelial Cells UA None Seen None Seen, 0-2 /HPF 03/15/2020 2:11 PM [facility] Mucus UA 1+ None, 1+ /LPF 03/15/2020 2:11 PM CDT [facility] Amorphous Crystals Many(A) Rare, Occasional, Few, Moderate, None /HPF 03/15/2020 2:11 PM CDT [facility] Urine URINE SPECIMEN OBTAINED VIA INDWELLING URINARY CATHETER / Unknown Collection / Unknown 03/15/2020 1:28 PM CDT 03/15/2020 1:34 PM CDT Narrative [facility] - 03/15/2020 2:11 PM CDT Geoffrey Rogers MD LAB - URINALYSIS ORD ERABLES [address] [address], [facility] [phone] * HIV-1 HIV-2 ANTIGEN/ANTIBODY (03/03/2020 5:25 AM CDT) HIV Antigen/Antibod y 1 & 2 Non-reacti ve Non-react tristan 03/03/2020 2:42 PM CDT [facility] Comment:Neither HIV-1 p24 An tigen nor HIV-1/HIV-2 Antibodies are detected. Blood BLOOD SPECIMEN / Unknown Lab Venipuncture / Unknown 03/03/2020 5:25 AM CDT 03/03/2020 2:10 PM CDT Geoffrey Rogers MD LAB - HEMATOLOGY ORD ERABLES Performing Organization Address City/[facility]/ZIP Co de Phone Number [address] [address], [facility] [phone] * VANCOMYCIN LEVEL RANDOM (03/03/2020 5:25 AM CDT) Only the most recent of4 resultswithin the time period is included. Vancomycin Random 17.9 Therapeutic Ranges not established for random specimens mcg/mL 03/03/2020 6:23 AM CDT [facility] Blood BLOOD SPECIMEN / Unknown Lab Venipuncture / Unknown 03/03/2020 5:25 AM CDT 03/03/2020 5:52 AM CDT Christina Briseno DO LAB - CHEMISTRY ORDE KATHERYN Performing Organization Address [facility] Co de Phone Number [address] [address], [place] [phone] * (ABNORMAL) IRON BLOOD (03/02/2020 2:52 AM CDT) Iron 29(L) 50 - 175 mcg/dL 03/02/2020 3:45 AM CDT [facility] Blood BLOOD SPECIMEN / Unknown Venipuncture / Unknown 03/02/2020 2:52 AM CDT 03/02/2020 3:28 AM CDT Karyna Marshall DO LAB - CHEMISTRY ORDKaren CAMPA Performing Organization Address [facility] Co de Phone Number [address] [address], [place] [phone] * (ABNORMAL) FERRITIN (03/02/2020 2:52 AM CDT) Ferritin 443(H) 22 - 275 ng/mL 03/02/2020 4:03 AM CDT [facility] Blood BLOOD SPECIMEN / Unknown Venipuncture / Unknown 03/02/2020 2:52 AM CDT 03/02/2020 3:28 AM CDT Karyna Marshall DO LAB - CHEMISTRY KATHY CAMPA Performing Organization Address [facility] Co de Phone Number [address] [address], [place] [phone] * ETT LINE PERFORMABLE (02/28/2020 10:30 PM CDT) Narrative Amina Frank - 02/28/2020 10:30 PM CDT Amina Frank MD 02/28/2020 10:30 PM Endotracheal Tube Placement: Patient Location: OR. Procedure: intubation (15522). Procedure Section: Sedation: under general anesthesia. Indications [...] Event Date/Time: 02/26/2020 10:35 PM Procedure: intubation (52488). Procedure Section: Sedation: under general anesthesia. Indications [...] skin jarrod CANDACE 03/01/2020 1:28 PM CDT [facility] Gram Stain No polymorphonuclear cells(AA) 03/01/2020 1:28 PM CDT [facility] Gram Stain Moderate Gram-positive cocci(AA) 03/01/2020 1:28 PM CDT [facility]CRO[facility] Gram Stain Moderate Gram-negative bacilli(AA) 03/01/2020 1:28 PM CDT [facility]CRO[facility] Microbiology ENTIRE SACRAL VERTEBRAL COLUMN / Unknown Collection / Unknown 02/24/2020 12:16 PM CDT 02/24/2020 12:23 PM CDT Narrative [facility] - 03/01/2020 1:28 PM CDT 02/24/2020 9:24 PM Ysabel Ortega RN notified. Read back and acknowledged results. Organism seen on initial gram stain may be anaerobic or not viable for aerobic growth Pablito Kan MD LAB - MICROBIOLOGY O RDERABLES [facility] [address] [place] [address], [facility] [phone] * PREPARE (CROSSMATCH) RBC UNIT(S), 2 Units (02/24/2020 6:46 AM CDT) Only the most recent of5 resultswithin the time period is included. Unit Description AS1 LR PRBC [facility] Unit ABO B [facility] Unit POS [facility] Product Number R02 [facility] B LOOD [facility] Unit Donor # [id number] [facility] Unit Status [facility] Product Code [id number] [facility] OD [facility] Blood Type Barcode 7300 [facility] Expiration Date S BLOOD BANK LAB Unit Description AS1 LR PRBC [facility] Unit ABO B [facility] Unit POS [facility] Product Number R02 [facility] B LOOD BANK LAB Unit Donor # [id number] [facility] Unit Status released [facility] BLOO D BANK LAB Product Code [id number] [facility] BLO OD BANK LAB Blood Type Barcode 7300 [facility] B[facility] LAB Expiration Date S BLOOD BANK LAB Blood Bank BLOOD SPECIMEN / Unknown 02/24/2020 6:46 AM CDT 02/24/2020 7:02 AM CDT Adriana Funes [employer]W M[employer] ATTENDANT-DYER AND WASHER LAB - BLOOD BANK ORDERABLES [facility] [address] [place] [address], [place] [phone] * SARS-COV-2 (COVID-19) IN HOUSE (02/23/2020 9:49 PM CDT) Only the most recent of2 resultswithin the time period is included. COVID-19 PCR Not detected Not detected, Invalid 02/24/2020 7:49 PM CDT [facility]CRO[facility] Microbiology SPECIMEN FROM NASOPHARYNGEAL STRUCTURE / Unknown Collection / Unknown 02/23/2020 9:49 PM CDT 02/23/2020 9:56 PM CDT Narrative [facility] - 02/24/2020 7:49 PM CDT This Real Time RT-PCR assay was developed and its performance characteristics determined by [facility]. This test has been authorized [...] Violet Thorpe MD LAB - MICROBIOLOGY ORDERABLES [facility]CROBI[facility] [address] [place] [address] [phone] * CT CHEST PE W ABD PELVIS [...] the right. Dictated by Lobito Han MD (residential gas heat technician). I, Dr. Clay SHOEMAKER M.D. have personally [...] the right. Dictated by Lobito Han MD (residential gas heat technician). Dr. Clay Bahena M.D. have personally reviewed and interpretedthis examination/study. This report was electronically signed by Clay SHOEMAKER M.D. on 02/24/2020 10:45 AM . Violet Thorpe MD CT ORDERABLES * (ABNORMAL) BLOOD GASES JORDYN (02/23/2020 7:02 PM CDT) pH Mixed Venous 7.43(H) 7.30 - 7.40 02/23/2020 7:09 PM [facility] pCO2 Mixed Venous 43 40 - 46 mmHg 02/23/2020 7:09 PM [facility] pO2 Mixed Venous 41 35 - 42 mmHg 02/23/2020 7:09 PM [facility] HCO3 Mixed Venous 28.3(H) 22.0 - 26.0 mmol/L 02/23/2020 7:09 PM [facility] TCO2 Mixed Venous 29.6(H) 25.0 - 29.0 mmol/L 02/23/2020 7:09 PM [facility] Base Excess Venous 3.6(H) -2.0 - 2.0 mmol/L 02/23/2020 7:09 PM [facility] Hemoglobin Mixed Venous 8.6(L) 13.5 - 17.5 g/dL 02/23/2020 7:09 PM [facility] Oxyhemoglobin Mixed Venous 76.9 66.0 - 77.0 % 02/23/2020 7:09 PM [facility] Carboxyhemoglobin Venous 0.0 0.0 - 3.0 % 02/23/2020 7:09 PM [facility] Methemoglobin 0.7 0.0 - 2.0 % 02/23/2020 7:09 PM [facility] FI O2 Mixed Venous 21.0 % 2019 7:09 PM [facility] Blood BLOOD SPECIMEN / Unknown Venipuncture / Unknown 02/23/2020 7:02 PM CDT 02/23/2020 7:07 PM CDT Violet Thorpe MD LAB - BLOOD GASES ORDERABLES [address] [address], [facility] [phone] * XR SHOULDER LEFT 2VW OR MORE (02/13/2020 5:52 PM CDT) Anatomical Region Laterality Modality Upper Extremity Radiographic Tavon ging 02/13/2020 7:04 PM CDT Impressions 02/14/2020 10:35 AM CDT IMPRESSION: 1.Displaced fracture of the distal third of the left clavicle with lateral and inferior displacement of the distal fracture fragment. 2.Multiple left-sided rib fractures. Dictated by Vivien Guzman MD (residential gas heat technician). I, Dr. KERRY VIERA have personally reviewed [...] rib fractures. Dictated by Vivien Guzman MD (residential gas heat technician). Dr. KERRY Bahena have personally reviewed and [...] more details.) Dictated by Jessica Ramirez MD (residential gas heat technician). This report was approved by Jessica Ramirez [...] more details.) Dictated by Jessica Ramirez MD (residential gas heat technician). This report was approved by Jessica Ramirez [...] more details.) Dictated by Jessica Ramirez MD (residential gas heat technician). This report was approved by Jessica Ramirez [...] more details.) Dictated by Jessica Ramirez MD (residential gas heat technician). This report was approved by Jessica Ramirez on 02/11/2020 1:[address] JAH Bahena have personally reviewed and interpreted this examination/study. This report was electronically signed by JAH ARIZMENDI on02/11/2020 1:34 PM . Sakina Montesinos CREW MESS ATTENDANT-DYER AND WASHER MR ORDERABLES * MRI NECK SOFT TISSUE [...] more details.) Dictated by Jessica Ramirez MD (residential gas heat technician). This report was approved by Jessica Ramirez [...] more details.) Dictated by Jessica Ramirez MD (residential gas heat technician). This report was approved by Jessica Ramirez on 02/11/2020 1:33 PM . I, Dr. JAH ARIZMENDI have personally reviewed and interpreted this examination/study. This report was electronically signed by JAH ARIZMENDI on02/11/2020 1:34 PM . Sakina Montesinos CREW MESS ATTENDANT-DYER AND WASHER MR ORDERABLES * FL SWALLOWING FUNCTION STUDY (02/10/2020 10:18 AM CDT) Anatomical Region Laterality Modality Chest Radiographic Tavon ging 02/10/2020 10:2 2 AM CDT Impressions 02/10/2020 10:36 AM CDT FINDINGS/IMPRESSION: Fluoroscopic assistance was provided for a procedure performed by Speech Therapy. Please see the separate report by Speech Therapy for further details. Fluoroscopy Time: 42 seconds. Dictated by Ivana Lomeli MD (residential gas heat technician). Dr. KERRY Bahena have personally reviewed and [...] 42 seconds. Dictated by Ivana Lomeli MD (residential gas heat technician). Dr. KERRY Bahena have personally reviewed and [...] 7.42 7.35 - 7.45 02/07[facility]2020 3:[facility] pCO2 Arterial 36 35 - 45 mmHg 02/07/2020 3:07 AM [facility] pO2 Arterial 71 71 - 95 mmHg 02/07/2020 3:07 AM [facility] HCO3 Arterial 22.8 22.0 - 26.0 mmol/L 02/07/2020 3:07 AM [facility] TCO2 Arterial 23.9(L) 25.0 - 29.0 mmol/L 02/07/2020 3:07 AM [facility] Base Excess Arterial -1.3 -2.0 - 2.0 mmol/L 02/07/2020 3:07 AM CDT [facility] Hemoglobin Arterial 9.0(L) 13.5 - 17.5 g/dL 02/07/2020 3:07 AM CDT [facility] Oxyhemoglobin Arterial 93.3(L) 95.0 - 100.0 % 02/07/2020 3:07 AM CDT [facility] Carboxyhemoglobin 0.3 0.0 - 3.0 % 02/07/2020 3:07 AM CDT [facility] Methemoglobin 0.1 0.0 - 2.0 % 02/07/2020 3:07 AM CDT [facility] FI O2 Arterial 80.0 % 02/07/2020 3:07 AM CDT [facility] Blood, arterial ARTERIAL BLOOD SPECIMEN / Unknown Arterial Puncture / Unknown 02/07/2020 2:55 AM CDT 02/07/2020 3:04 AM CDT La Nena Blake MD LAB - BLOOD GASES ORDERABLES Performing Organization Address City/State/[facility] Co de Phone Number [facility] [address] [place] [id number], [facility] [phone] * CT ANGIO BRAIN AND NECK (02/05/2020 [...] Blood 1.11 mmol/L 02/04/2020 5:21 AM T [facility] Adjusted Ionized Calcium 1.14(L) 1.19 - 1.34 mmol/L 02/04/2020 5:21 AM T [facility] pH Whole Blood 7.45 7.35 - 7.45 02/04/2020 5:21 AM [facility] Blood WHOLE BLOOD SPECIMEN / Unknown Lab Venipuncture / Unknown 02/04/2020 4:32 AM CDT 02/04/2020 5:18 AM CDT Ernesto Tinsley MD LAB - CHEMISTRY KATHY CAMPA [facility] Organization Address City/State/ZIP Co de Phone Number [place] [address] [place] [address], [facility] [phone] * CT ANGIO ABDOMEN PELVIS (01/31/2020 10:12 [...] evaluate the extent of pulmonary embolism. 3. Aifmb-ah-uykfqbip volume right and small volume left pleural [...] 11:32 PM. Dictated by Vincent Montalvo MD (residential gas heat technician). IDr. Clay M.D. have personally reviewed and [...] evaluate the extent of pulmonary embolism. 3. Gnsjk-rq-fvnlqkei volume right and small volume left pleural [...] 11:32 PM. Dictated by Vincent Montalvo MD (residential gas heat technician). Shruti, Dr. Clay SHOEMAKER M.D. have personally [...] evaluate the extent of pulmonary embolism. 3. Snscf-dt-kaaxbgrt volume right and small volume left pleuraleffusions. [...] 11:32 PM. Dictated by Vincent Montalvo MD (residential gas heat technician). I, Dr. Clay SHOEMAKER M.D. have personally reviewed and interpretedthis examination/study. This report was electronically signed by Clay SHOEMAKER M.D. on 02/01/2020 10:42 AM . Ernesto Tinsley MD CT ORDERABLES * FL ELENITA SURGERY (01/31/2020 1:17 PM CDT) Narrative [facility] - 01/31/2020 1:18 PM CDT Fluoroscopy was used for this exam in the OR. Please see the Operative report. Dipesh Felix MD FLUOROSCOPY ORDERABL ES [facility] * XR PELVIS 3VW OR [...] normal. Report dictated by Jorge Abbott M.D. (residential gas heat technician). Dr. CHRISTINA Bahena have personally reviewed and [...] normal. Report dictated by Jorge Abbott M.D. (residential gas heat technician). Dr. CHRISTINA Bahena have personally reviewed and interpreted this examination/study. This report was electronically signed by CHRISTINA HERNANDEZ on 02/01/2020 2:33 PM . Dipesh Felix MD DIAGNOSTIC IMAGING O RDERABLES * IV PLACEMENT PERFORMABLE (01/31/2020 12:12 PM CDT) Narrative Veronica Frias APRN-CRNA - 01/31/2020 12:12 PM CDT Veronica Frias APRN-CRNA 01/31/2020 12:13 PM Peripheral IV Line Placement: Patient Location: OR Procedure: IV start ([id number]). Procedure Section: Skin Prep: alcohol. Orientation: left [...] Event Date/Time: 01/31/2020 11:03 AM Procedure: intubation (40145). Procedure Section: Sedation: under general anesthesia. Indications [...] above findings. Dictated by Dagoberto Hurtado MD (residential gas heat technician). I, Dr. ESTRELLITA SHAH have personally reviewed [...] above findings. Dictated by Dagoberto Hurtado MD (residential gas heat technician). I, Dr. ESTRELLITA SHAH have personally reviewed [...] above findings. Dictated by Dagoberto Hurtado MD (residential gas heat technician). I, Dr. ESTRELLITA SHAH have personally reviewed [...] above findings. Dictated by Dagoberto Hurtado MD (residential gas heat technician). I, Dr. ESTRELLITA SHAH have personally reviewed and interpreted this examination/study. This report was electronically signed by ESTRELLITA SHAH on 01/28/20204:01 PM . Anu Greene DO CT ORDERABLES * (ABNORMAL) POTASSIUM BLOOD (01/28/2020 12:05 PM CDT) Only the most recent of9 resultswithin the time period is included. Potassium 3.2(L) 3.5 - 4.5 mmol/L 01/28/2020 12:34 PM CDT [facility] Blood BLOOD SPECIMEN / Unknown Venipuncture / Unknown 01/28/2020 12:05 PM CDT 01/28/2020 12:17 PM CDT Anu Greene DO LAB - CHEMISTRY ORDERABLES [facility] [address] [place] [address], [facility] [phone] * TRANSFUSE RED BLOOD CELL LEUKOREDUCED UNIT(S) [...] procedure and other - comments (only speaks English) Patient Sedated? Yes Sedation Type: mild Sedation [...] fracture. Report dictated by Jorge Abbott M.D. (residential gas heat technician). I, Dr. KERRY VIERA have personally reviewed [...] fracture. Report dictated by Jorge Abbott M.D. (residential gas heat technician). I, Dr. KERRY VIERA have personally reviewed and interpreted this examination/study. This report was electronically signed by KERRY VIERA on 01/27/2020 12:41 PM . Bobby Rizo MD DIAGNOSTIC IMAGING O RDERABLES * (ABNORMAL) DRUG SCREEN TOX URINE PANEL (01/26/2020 8:[address] [facility]) [facility] Amphetamines Screen Urine Negative Negative : < 1000 ng/mL 01/26/2020 8:56 AM [facility] Barbiturates Screen Urine Negative Negative : < 200 ng/mL 01/26/2020 8:56 AM [facility] Benzodiazepine Screen Urine Negative Negative : < 200 ng/mL 01/26/2020 8:56 AM [facility] Opiates Urine Positive(A) Negative : < 300 ng/mL 01/26/2020 8:56 AM [facility] Comment:Positive urine opiat e screening results should be confirmed by another generally accepted non-immunological method such as gas chromatography or mass spectrometry. Cocaine Metabolites Urine Negative Negative : < 300 ng/mL 01/26/2020 8:56 AM [facility] Phencyclidine Screen Urine Negative Negative : < 25 ng/ml 01/26/2020 8:56 AM [facility] Cannabinoids Screen Urine Negative Negative : <50 ng/mL 01/26/2020 8:56 AM [facility] Methadone Screen Urine Negative Negative : < 300 ng/mL 01/26/2020 8:56 AM [facility] Fentanyl Screen Urine Negative Negative : <1.0 ng/mL 01/26/2020 8:56 AM CDT [facility] Urine URINE / Unknown Collection / Unknown 01/26/2020 8:12 AM CDT 01/26/2020 8:29 AM CDT Narrative [facility] - 01/26/2020 8:56 AM CDT The Urine Toxicology Screening Panel does not screen for Propoxyphene, Meprobamate, Carisoprodol, Trazodone, jxcb-izr-nixcxea medications and/or volatiles (Acetone, Isopropanol, Methanol or Ethylene Glycol). Ethanol, Salicylate, Acetaminophen, Tricyclic Antidepressants and several therapeutic drugs may be individually assayed in serum or plasma specimen. Toxicology testing by the [facility] is an aid to medical diagnosis and treatment of patients. No documented chain of custody was maintained. Results are intended to be used for clinical purposes only. Joshua Matute MD LAB - URINE CHEMISTR Y ORDERABLES Performing Organization Address City/State/[facility] Co de Phone Number [address] [address], [facility] [phone] * FL UROGRAM RETROGRADE (01/25/2020 8:15 PM CDT) Anatomical Region Laterality Modality Abdomen Radiographic Tavon ging 01/25/2020 8:36 PM CDT Impressions 02/01/2020 4:02 PM CDT IMPRESSION: No evidence of injury to the penile or bulbar urethra. Dynamic images showed retrograde flow of contrast into the bladder with normal appearance of the membranous and prostatic urethra. Dictated by Vivien Guzman MD (residential gas heat technician). IDr. Clay M.D. have personally reviewed and [...] from prior contrast enhanced examination. Procedure Note Reentta Shoemaker MD - 02/01/2020 EXAMINATION: FL UROGRAM [...] prostatic urethra. Dictated by Vivien Guzman MD (residential gas heat technician). Dr. Clay Bahena M.D. have personally reviewed [...] of marrow edema associated with the reported [id number] fracture. There is associated severe compression of [...] PM CDT) ABO 01/25/2020 4:01 PM CDT [facility] Rh Type 01/25/2020 4:01 PM CDT [facility] Typem 01/25/2020 4:01 PM CDT [facility] Interpretation 01/25/2020 4:01 PM CDT [facility] Blood BLOOD SPECIMEN / Unknown Lab Venipuncture / Unknown 01/25/2020 2:20 PM CDT 01/25/2020 2:34 PM CDT Narrative [facility] - 01/25/2020 4:01 PM CDT Re-type confirmed per [facility] Blood Bank policies & procedures. Results documented in department. Shaggy James MD LAB - BLOOD BANK ORD ERABLES [facility] [address] [place] [address], [facility] [phone] * (ABNORMAL) TEG PLATELET MAPPING (01/25/2020 2:19 PM CDT) Interpretation TEG See Comment 01/25/2020 4:10 PM CDT [facility] React-Time 3.8(L) 5.0 - 10.0 MIN 01/25/2020 4:10 PM CDT [facility] K-Time 1.3 1.0 - 3.0 MIN 01/25/2020 4:10 PM CDT [facility] Angle A-BB 71.2 53.0 - 72.0 Degrees 01/25/2020 4:10 PM CDT [facility] MA (CK) BB 68.4 50.0 - 70.0 mm 01/25/2020 4:10 PM CDT [facility] LY30 0.0 0.0 - 8.0 % 01/25/2020 4:10 PM CDT [facility] CI-Coagulation Index 3.0 -3.0 - 3.0 01/25/2020 4:10 PM CDT [facility] MA-ADP 23.4 Reference Range: None mm 01/25/2020 4:10 PM CDT [facility] MA AA-BB 65.5 Reference Range: None mm 01/25/2020 4:10 PM CDT [facility] % ADP Inhibition 75.5 Reference Range:None % 01/25/2020 4:10 PM CDT [facility] G-Clot Strength 10.8 4.5 - 11.0 d/sc 01/25/2020 4:10 PM CDT [facility] % AA Inhibition 4.9 Reference Range: None % 01/25/2020 4:10 PM CDT [facility] Blood BLOOD SPECIMEN / Unknown Venipuncture / Unknown 01/25/2020 2:19 PM CDT 01/25/2020 2:32 PM CDT Narrative [facility] - 01/25/2020 4:10 [...] MD LAB - BLOOD BANK ORD ERABLES [facility] [address] [place] [address], [facility] [phone] * CT CHEST ABDOMEN PELVIS W CONT [...] compressive atelectasis. Dictated by Vivien Guzman MD (residential gas heat technician). I, Dr. MANFRED BOYD have personally reviewed [...] cervical spine at the C3-C4 through the C5-[id number] is present due to posterior disc abnormalities [...] compressive atelectasis. Dictated by Vivien Guzman MD (residential gas heat technician). I, Dr. MANFRED BOYD have personally reviewed [...] compressive atelectasis. Dictated by Vivien Guzman MD (residential gas heat technician). I, Dr. MANFRED BOYD have personally reviewed [...] cervical spine at the C3-C4 through the C5-Z3qxorne is present due to posterior disc abnormalities [...] compressive atelectasis. Dictated by Vivien Guzman MD (residential gas heat technician). I, Dr. MANFRED BOYD have personally reviewed [...] compressive atelectasis. Dictated by Vivien Guzman MD (residential gas heat technician). I, Dr. MANFRED BOYD have personally reviewed [...] cervical spine at the C3-C4 through the C5-[id number] is present due to posterior disc abnormalities [...] compressive atelectasis. Dictated by Vivien Guzman MD (residential gas heat technician). I, Dr. MANFRED BOYD have personally reviewed [...] compressive atelectasis. Dictated by Vivien Guzman MD (residential gas heat technician). I, Dr. MANFRED BOYD have personally reviewed [...] cervical spine at the C3-C4 through the C5-F6gvkpud is present due to posterior disc abnormalities [...] compressive atelectasis. Dictated by Vivien Guzman MD (residential gas heat technician). I, Dr. MANFRED BOYD have personally reviewed [...] ramus. Report dictated by Vivien Guzman MD (residential gas heat technician). I, Dr. CHRISTINA HERNANDEZ have personally reviewed [...] ramus. Report dictated by Vivien Guzman MD (residential gas heat technician). I, Dr. CHRISTINA HERNANDEZ have personally reviewed and interpreted this examination/study. This report was electronically signed by CHRISTINA HERNANDEZ on 01/25/2020 3:24 PM . Joshua Matute MD DIAGNOSTIC IMAGING O RDERABLES * ALCOHOL ETHYL BLOOD (01/25/2020 1:38 PM CDT) Interpretation Ethanol None Detected None Detected mg/dL 01/25/2020 2:08 PM CDT [facility] Comment:Ethanol levels less than 10 mg/dL are resulted as None detected . Blood BLOOD SPECIMEN / Unknown Venipuncture / Unknown 01/25/2020 1:38 PM CDT 01/25/2020 2:08 PM CDT Joshua Matute MD LAB - CHEMISTRY KATHY CAMPA [facility] Organization Address City/State/ZIP Co de Phone Number [facility] [address] [place] [address], [facility] [phone] Care Teams [employer]rop [employer] Worker Relationship Specialty Start Date End Date Unknown, Provider PCP - General 08/30/23 Donavon Connor MD Family Medicine 08/30/23
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
--- OUTSIDE RECORDS SUMMARY | 2024-07-17 09:07 | XMS_ITS | Clinical Summary ---
Author Organization [facility] Address [address] [place] [address] Care Team Providers Care Heater Tender Name Role Phone Unavailable Primary Care Provider [...]
--- OUTSIDE RECORDS SUMMARY | 2024-07-17 09:07 | XMS_ITS | Encounter Summary ---
Author Organization [facility] Address [facility] [place] [address] Care Team Providers Care Engineering Inspection Assistant Name Role Phone Donavon Connor MD Primary Care Provider [phone] Reason for Visit * Reason Comments Image (SCAN) Encounter Details Date Type Department Care Team (Latest Contact Info) Description 07/13/2024 Scan [facility] Scanned, Doc [facility] Image (SCAN) Social History Tobacco Use Types Packs/Day [...] materials from doctor or pharmacy Often 07/02/2024 [facility] Utilities Answer Date Recorded In the past 12 months has e electric, gas, oil, or water company [...] than three times a week 12/30/2022 Attends [employer] Not on file 12/30 Do you belong to any clubs o r organizations such as anabaptism groups, unions, fraternal or athletic groups, or [...] place to sleep or slept in a prison (including now)? No 06/24/2023 Housing Stability Vital [...] were you homeless or living in a prison (including now)? No 04/10/2024 Sex and Gender Information Value Date Recorded Sex Assigned at Male 04/09/2024 9:16 PM CASKET TRIMMER Legal Sex Male 8:36 PM CDT Gender Identity Male 04/09/2024 9:16 PM CASKET TRIMMER Sexual Orientation Straight 04/09/2024 9: 16 PM CASKET TRIMMER documented as of this encounter Functional Status * Are you deaf or do you have serious difficulty hearing Answer Date of Assessment Author Status No 04/09/2024 9:27 PM CASKET TRIMMER Shayla Swan RN Active * Are you blind or do you have serious difficulty seeing, even when wearing glasses? Answer Date of Assessment Author Status No 04/09/2024 9:27 PM CASKET TRIMMER Shayla Swan RN Active * Do you have serious difficulty walking or climbing stairs? Answer Date of Assessment Author Status No 04/09/2024 9:27 PM CASKET TRIMMER Shayla Swan RN Active * Do you have difficulty dressing or bathing? Answer Date of Assessment Author Status No 04/09/2024 9:27 PM CASKET TRIMMER Shayla Swan RN Active * Because of a physical, [...] st Contact Info) Description 07/18/2024 9:00 AM CASKET TRIMMER Home Care Visit [facility] [address] [place] [address] [place] [address] Maida Bello, PRODUCE INSPECTOR [address] [place], [place] [id number] 07/22/2024 3:30 PM CASKET TRIMMER Appointment [address] [place] [address] [place] [address] Catie Zabala, PT [address], [place] [address] 01/06/2025 11:00 AM CDT Office Visit [facility] [address] [facility], [address] [place] [address] Lai Anderson MD [address] [place] [address] documented as of this encounter Goals Goal Patient Goal Type Associated Problems Recent Progress Patient-Stated? Author Family - family caregiver with be involved in care transitions and discharge planning Lifestyle No Beth Alvarez, RN documented as of this encounter Procedures Procedure Name Priority Date/Time Associated Diagnosis Comments IMAGE GENERIC 07/13/2024 documented in this encounter Results * IMAGE GENERIC (07/13/2024) Anatomical Region Laterality Modality Other 07/13/2024 us [...] Total Score: 0 04/19/20 24 9:36 AM CASKET TRIMMER documented as of this encounter Care Teams Engineering Inspection Assistant Relationship Specialty Start Date End Date Donavon Connor MD [address] [place] [address] PCP - General FAMILY PRACTICE 04/13/20 documented as of this encounter
[2024-07-17 09:11] LABS: NT Pro B Type Natriuretic Pept 4480 pg/mL (19.9-100)
--- NOTE | 2024-07-17 09:14 | ED_ITS ---
HPI - Chest Pain General Chief Complaint: Chest Pain Stated Complaint: CP &SOB Time Seen by Provider: 07/17/24 08:30 History of Present Illness HPI narrative: Patient is a 74-year-old male who presents ER with chest pain and shortness of breath. Pressure on the center of his chest. No radiation to the neck/back/shoulder/arm. Sudden onset at 5:30 a.m.. No aggravating factors. [place] improved with nitroglycerin by EMS. Related Data Home Medications ?Medication ?Instructions ?Recorded ?Confirmed ?Last Taken ?Type insulin glargine 100 unit/mL 18 unit subcut DAILY DM 10/29/23 07/17/24 07/17/24 History subcutaneous solution (Lantus U-100 Insulin) insulin lispro 100 unit/mL 1 sliding scale dose subcut ACHS dm 10/29/23 07/17/24 07/17/24 History subcutaneous pen lactulose 10 gram/15 mL oral 30 ml PO TID 06/22/24 07/17/24 Unknown History solution amoxicillin 500 mg capsule 500 mg PO TID 07/17/24 07/17/24 07/16/24 History Allergies Allergy/AdvReac Type Severity Reaction Status Date / Time No Known Allergies Allergy Verified 07/17/24 12:49 Review of Systems 2 Review of Systems: All systems reviewed & are unremarkable except as noted in HPI and below Constitutional: Constitutional: Reports no additional constitutional complaints ENT: Reports system reviewed and no additional complaints, except as documented Cardiovascular: Cardiovascular: Reports no additional cardiovascular complaints Respiratory: Respiratory: Reports no additional respiratory complaints Gastrointestinal: Gastrointestinal: Reports no additional gastrointestinal complaints [facility] Past Medical History Medical History Benign prostate hyperplasia ST elevation myocardial infarction (STEMI) (06/22/24) status post PCI to the LAD Ischemic cardiomyopathy Type 2 diabetes mellitus Hypertension Compression fracture of L4 vertebra Hyperlipidemia Urinary retention Chronic indwelling Joiner catheter Coronary artery disease Surgical History Surgical History History of open reduction and internal fixation (ORIF) procedure repair of left 4 through 9 rib fractures History of percutaneous coronary intervention (05/2024) PCI to the LAD Family History Family History Mother Family history unknown Social History Social History Social History: Surrogate medical decision maker: Delta Anderson, daughter ([phone]). Code status: Full code. Smoking status: Never smoker Alcohol intake: never Substance use: never Substance use type: does not use Do You Feel Safe in your Home?: Yes Lack of Transportation: No Lack of Food: Never True Current Housing: I Have Housing Concerned About Future Housing: No Difficulty Paying Gas/Electric Bills: No Difficulty Paying for Meds: No Currently Unemployed: No Education: Master's Degree or Higher Difficulty w/ Childcare or Family Care: No Living arrangements: with family Gender identity (if verbalized by the patient): Male Sexual Orientation (if Verbalized by the Patient): Straight or Heterosexual Spiritual care concerns: No Exam 2 Narrative: GENERAL: Well-appearing, well-nourished, and in no acute distress. HEAD: Normocephalic, atraumatic. ENT: Mucous membranes moist. CHEST: Clear to auscultation. No respiratory distress. HEART: Regular rate and rhythm. Normal peripheral pulses. ABDOMEN: Soft, nontender, nondistended. EXTREMITIES: Normal range of motion. No edema. SKIN: Warm, dry, no rash. NEURO: Alert and oriented x3. PSYCH: Normal mood and affect. Course Course Emergency Course: Patient family informed of diagnosis and treatment plan. Cardiology consulted. Admit to hospitalist service. Placed on heparin drip. Pain improved with nitroglycerin. Vital Signs Vital signs: Vital Signs Temperature 97.6 F 07/17/24 08:27 Pulse Rate 88 07/17/24 08:27 Respiratory Rate 24 H 07/17/24 08:27 Blood Pressure 135/72 07/17/24 08:27 Pulse Oximetry 98 07/17/24 08:27 Oxygen Delivery Room Air 07/17/24 08:27 Temperature 98.2 F 07/17/24 19:05 Pulse Rate 74 07/17/24 19:05 Respiratory Rate 21 H 07/17/24 19:05 Blood Pressure 155/74 H 07/17/24 19:05 Pulse Oximetry 100 07/17/24 19:05 Oxygen Delivery Room Air 07/17/24 16:14 MDM - Chest Pain Lab Data 07/17/24 08:40 07/17/24 08:40 Labs: Lab Results 07/17/24 07/17/24 Range/Units 08:40 09:33 WBC 6.9 (4.5-10.0) K/mm3 RBC 3.99 L (4.6-6.20) M/mm3 Hgb 11.1 L (14.0-18.0) g/dL Hct 35.4 L (42.0-52.0) % MCV 88.7 (80-100) fl MCH 27.8 (26-34) pg MCHC 31.4 L (32-36) g/dl RDW 14.7 H (11.5-14.5) % Plt Count 194 (150-375) k/mm3 MPV 12.5 H (7.4-10.4) fl Immature Gran % (Auto) 0.4 (0-0.5) % Neut % (Auto) 64.0 (45.5-73.1) % Lymph % (Auto) 25.5 (18.3-44.2) % Trigg % (Auto) 8.2 (2.6-8.5) % Eos % (Auto) 1.3 (0-4.4) % Baso % (Auto) 0.6 (0.2-1.2) % Lymph # (Auto) 1.75 (0.9-3.2) K/mm3 Trigg # (Auto) 0.6 (0.1-0.6) K/mm3 Eos # (Auto) 0.1 (0-0.3) K/mm3 Baso # (Auto) 0.0 (0.0-0.1) K/mm3 Abs Immat Gran (auto) 0.03 (0.00-0.031) K/mm3 Absolute Neuts (auto) 4.4 (1.3-6.7) K/mm3 Absolute Nucleated RBC 0.000 (0.0-0.012) K/mm3 Nucleated RBC % 0.0 (0.0-0.2) % PT 13.7 (11.1-14.7) Seconds INR 1.0 APTT 25.5 (22.3-36.8) Seconds Sodium 136 L (137-145) mmol/L Potassium 3.2 L (3.4-5.0) mmol/L Chloride 105 (98-107) mmol/L Carbon Dioxide 23 (22-30) mmol/L Anion Gap 8 (4-12) mmol/L BUN 14 (9-20) mg/dL Creatinine 0.95 (0.7-1.3) mg/dL Estim Creat Clear Calc 57 ml/min Estimated GFR > 60 (59 - ) Glucose 294 H (65-110) mg/dL Calcium 8.4 (8.4-10.2) mg/dL Total Bilirubin 0.8 (0.2-1.3) mg/dL AST 20 (17-59) U/L ALT 16 (6-50) U/L Alkaline Phosphatase 88 (38-126) U/L Troponin I 0.057 H* (0.000-0.034) ng/mL NT-Pro-B Natriuret Pep 4480 H (19.9-100) pg/mL Total Protein 7.0 (6.3-8.2) g/dL Albumin 3.2 L (3.5-5.1) g/dL Imaging Data Radiologist's impression: ITS Impressions Chest X-Ray 07/17/24 09:36 IMPRESSION: 1: NO ACUTE CARDIOPULMONARY DISEASE. 2: Left acromion fracture with nonunion, not visualized on prior examination. Critical Care Time Critical Care Time Critical Care Time: Yes Total Critical Care Time: 35 Discharge Plan Discharge Clinical Impression: Non-ST elevated myocardial infarction, Heart failure Patient Disposition: Still a Patient Condition: Stable
[2024-07-17 09:19] LABS: Troponin I 0.057 ng/mL (0.000-0.034)
[2024-07-17 09:56] LABS: Prothrombin Time 13.7 Seconds (11.1-14.7)
[2024-07-17 09:58] LABS: Partial Thromboplastin Time 25.5 Seconds (22.3-36.8)
--- NOTE | 2024-07-17 10:09 | PC.NURSE ---
Patient refused urinal and bedpan. Patient wheeled into bathroom by this RN
[2024-07-17] MEDS: HEPARIN SODIUM 5,000 UNITS/ML VIAL 4000 UNITS IV PUSH ×2 (10:20→17:48)
[2024-07-17] MEDS: HEPARIN SOD/D5W 100 UNITS/ML 25,000 UNITS/250 ML BAG 8 UNITS IV CONT (10:21)
[2024-07-17] MEDS: FUROSEMIDE INJ 40 MG/4 ML VIAL IV PUSH (10:38)
--- NOTE | 2024-07-17 10:47 | PC.NURSE ---
Patient requesting to leave. Dr Aguilera at bedside now speaking with patient. Patient denies any pain at this time
--- NOTE | 2024-07-17 12:30 | PM.IMHP ---
H&P: HPI History of Present Illness Date/Time: 07/17/24 12:30 Chief Complaint: Chest pain. Narrative: This is a 74-year-old male with coronary artery disease and history of STEMI on 06/22/2024 status post PCI to the LAD, ischemic cardiomyopathy with an EF of 40 to 45%, hypertension, hyperlipidemia, type 2 diabetes mellitus, and benign prostatic hyperplasia who presented to the emergency department via EMS from home for evaluation of chest pain. A video languages and literature instructor was used to obtain the following history as the patient speaks primarily Greenlandic. At about 05:30 he developed pressure in the center of his chest associated with mild shortness of breath. The pain did not radiate and he denies aggravating factors. Nitroglycerin administered per EMS provided some improvement. He denies syncope, near syncope, sweats, pleuritic pain, nausea, vomiting, abdominal pain, calf pain, and edema. Of note, he was seen in the ED 4 days ago with complaints of anxiety and intermittent shortness of breath and chest discomfort. Symptoms improved with lorazepam and his workup was reassuring and he was discharged home. Before he was discharged he reportedly had a fall between the [facility] and the [facility] [facility] and he has complained of right shoulder pain since that time. He did not say anything to anyone and he denies sustaining any other injuries in the fall. He states the fall was purely mechanical. In the ED: Vital signs were stable on arrival. Labs are significant for hemoglobin of 11.1, sodium 136, potassium 3.2, glucose 294, proBNP 4480, troponin 0.057. Chest x-ray showed no acute cardiopulmonary disease but did note a left acromion fracture with non use in which was not visualized on prior examination. This is not the shoulder that he complains of pain and however. He has been started on a heparin drip and is being admitted in this setting for close monitoring and Cardiology consultation. Review of Systems Review of Systems: 12 systems were reviewed and are negative except for as per HPI. [facility] Past Medical History Medical History Benign prostate hyperplasia ST elevation myocardial infarction (STEMI) (06/22/24) status post PCI to the LAD Ischemic cardiomyopathy Type 2 diabetes mellitus Hypertension Compression fracture of L4 vertebra Hyperlipidemia Urinary retention Chronic indwelling Joiner catheter Coronary artery disease Surgical History Surgical History History of open reduction and internal fixation (ORIF) procedure repair of left 4 through 9 rib fractures History of percutaneous coronary intervention (05/2024) PCI to the LAD Family History Family History Mother Family history unknown Social History Social History (Updated 07/17/24 @ 21:15 by Chanda Reeves PA-C) Social History: Surrogate medical decision maker: Delta Anderson, daughter ([phone]). Code status: Full code. Smoking status: Never smoker Alcohol intake: never Substance use: never Substance use type: does not use Do You Feel Safe in your Home?: Yes Lack of Transportation: No Lack of Food: Never True Current Housing: I Have Housing Concerned About Future Housing: No Difficulty Paying Gas/Electric Bills: No Difficulty Paying for Meds: No Currently Unemployed: No Education: Master's Degree or Higher Difficulty w/ Childcare or Family Care: No Living arrangements: with family Spiritual care concerns: No Meds Home Medications and Allergies Home Medications ?Medication ?Instructions ?Recorded ?Confirmed ?Type insulin glargine 100 unit/mL 18 unit subcut DAILY DM 10/29/23 07/17/24 History subcutaneous solution (Lantus U-100 Insulin) insulin lispro 100 unit/mL 1 sliding scale dose subcut ACHS dm 10/29/23 07/17/24 History subcutaneous pen lactulose 10 gram/15 mL oral 30 ml PO TID 06/22/24 07/17/24 History solution ticagrelor 90 mg tablet (Brilinta) 90 mg PO Q12HR #90 tabs 06/24/24 07/17/24 Rx aspirin 81 mg tablet,delayed 81 mg PO QAM #90 tabs 06/25/24 07/17/24 Rx release atorvastatin 80 mg tablet (Lipitor) 80 mg PO DAILY #90 tabs 06/25/24 07/17/24 Rx losartan 25 mg tablet 25 mg PO DAILY #90 tabs 06/25/24 07/17/24 Rx metoprolol succinate 50 mg 50 mg PO DAILY #90 tabs 06/25/24 07/17/24 Rx tablet,extended release 24 hr (Toprol XL) guaifenesin 600 mg tablet, 600 mg PO Q12HR #30 tabs 07/01/24 07/17/24 Rx extended release 12 hr (Mucus Relief ER) tamsulosin 0.4 mg capsule 0.4 mg PO QAM #30 caps 07/01/24 07/17/24 Rx lorazepam 0.5 mg tablet (Ativan) 0.5 mg PO TID PRN anxiety #14 tabs 07/13/24 07/17/24 Rx amoxicillin 500 mg capsule 500 mg PO TID 07/17/24 07/17/24 History Allergies Allergy/AdvReac Type Severity Reaction Status Date / Time No Known Allergies Allergy Verified 07/17/24 12:49 Vital Signs Vital Signs - 24 hr 07/17/24 08:27 Temperature 97.6 F Pulse Rate 88 Respiratory Rate 24 H Blood Pressure 135/72 Pulse Oximetry 98 Oxygen Delivery Room Air Exam Narrative: General: Well-developed male sitting up in chair no distress. Weight: 69.5 kg. BMI: 22.0. HEENT: Normocephalic, atraumatic. PERRL, EOMI. Sclera anicteric. Oral mucosa moist. Oropharynx clear. Neck: Supple. Respiratory: Lungs are clear to auscultation bilaterally. Cardiovascular: Regular rate and rhythm with S1-S2. Gastrointestinal: Abdomen is soft, nontender, and nondistended with positive bowel sounds. Skin: Warm and dry. No rash or lesions on limited exam. Extremities: No cyanosis, clubbing, or edema. Radial and pedal pulses intact. Musculoskeletal: There is a deformity of the left shoulder without tenderness to palpation or evidence of recent trauma. He does complain of pain with palpation of the anterolateral right shoulder and reports pain with forward flexion. Neurological: Alert. Cranial nerves 2-12 are grossly intact. No gross focal deficits to casual conversation. Psychiatric: Pleasant and cooperative with appropriate mood. H&P: Results Labs Labs: Short CBC 07/17/24 Range/Units 08:40 WBC 6.9 (4.5-10.0) K/mm3 Hgb 11.1 L (14.0-18.0) g/dL Hct 35.4 L (42.0-52.0) % Plt Count 194 (150-375) k/mm3 [facility] 07/17/24 08:40 Sodium 136 L Potassium 3.2 L Chloride 105 Carbon Dioxide 23 BUN 14 Creatinine 0.95 Glucose 294 H Calcium 8.4 Cardiac Enzymes 07/17/24 Range/Units 08:40 Troponin I 0.057 H* (0.000-0.034) ng/mL Liver Function 07/17/24 Range/Units 08:40 Total Bilirubin 0.8 (0.2-1.3) mg/dL AST 20 (17-59) U/L ALT 16 (6-50) U/L Alkaline Phosphatase 88 (38-126) U/L Albumin 3.2 L (3.5-5.1) g/dL Imaging Chest X-Ray 07/17/24 09:36 IMPRESSION: 1: NO ACUTE CARDIOPULMONARY DISEASE. 2: Left acromion fracture with nonunion, not visualized on prior examination. Assessment and Plan Assessment and plan (1) Non-ST elevated myocardial infarction: Code(s): I21.4 - Non-ST elevation (NSTEMI) myocardial infarction Status: Acute (2) Displaced fracture of left acromial process with nonunion: Code(s): S42.122K - Displaced fracture of acromial process, left shoulder, subsequent encounter for fracture with nonunion Status: Acute (3) Hypokalemia: Code(s): E87.6 - Hypokalemia Status: Acute (4) Hypertension: Code(s): I10 - Essential (primary) hypertension Status: Acute (5) Coronary artery disease: Code(s): I25.10 - Atherosclerotic heart disease of [place] coronary artery without angina pectoris Status: Acute (6) Hyperlipidemia: Code(s): E78.5 - Hyperlipidemia, unspecified Status: Acute (7) Type 2 diabetes mellitus: Code(s): E11.9 - Type 2 diabetes mellitus without complications Status: Acute (8) Benign prostate hyperplasia: Code(s): N40.0 - Benign prostatic hyperplasia without lower urinary tract symptoms Status: Acute Plan The patient presented to the emergency department with complaints of chest pressure as detailed in HPI, improved with nitroglycerin. Labs, imaging, EKG, and all reports were personally reviewed. Troponins have been a bit elevated and he is being treated as a non STEMI. He will be NPO after midnight for staged intervention tomorrow. Cardiology recommends continuing aspirin and Brilinta tonight as well as the heparin drip. Regarding the left acromion fracture, he does not have any pain at that site and this may be old. Instead he complains of pain in his right shoulder since falling a couple of days ago as detailed in HPI. Ortho has been consulted. Blood pressures were reviewed and they are stable. Potassium will be replaced and monitored. Continue basal insulin. Initiate sliding scale insulin, Accu-Cheks, and hypoglycemic protocol. His home medications will be reviewed and resumed as appropriate. Quality VTE Prophylaxis VTE prophylaxis: pharmacologic ordered (currently on a heparin drip) The patient has been admitted under observation status. Hospitalist [facility] Advance Care Plan I have confirmed that the patient's Advanced Care Plan is present, code status is documented, or surrogate decision maker is listed in patient medical record.: Yes Medication Reconciliation I have utilized all available resources to obtain, update and review the patients current medications (includes all prescriptions, OTC, herbals, cannabis, and nutritional supplements).: Yes
[2024-07-17 12:55] LABS: Troponin I 0.084 ng/mL (0.000-0.034)
--- NOTE | 2024-07-17 13:15 | ADMGEN ---
This patient, Albaro Anderson, was admitted to [facility]. Patient/family oriented to hospital policies and general routines including ID bracelet, bed and alarms, visiting hours, pain management, procedures, bathroom and other care routines, personal items, smoking policy, room service/diet, and visiting hours. Information on how to activate the Rapid Response Team has been discussed. Patient/Family are encouraged to report perceived risks to care and to ask questions if they do not understand what they are told or what they should do.
[2024-07-17] MEDS: INSULIN ASPART (*BKC) 100 UNITS/ML SUB-Q ×2 (14:01→20:56)
[2024-07-17] MEDS: POTASSIUM CHLORIDE 20 MEQ ER TABLET 40 MEQ PO (14:03)
[2024-07-17 14:07] LABS: Glucose Point of Care 222 mg/dl (65-105)
--- NOTE | 2024-07-17 15:09 | PM.CNCAR ---
Assessment and Plan Assessment and plan (1) NSTEMI (non-ST elevated myocardial infarction): Code(s): I21.4 - Non-ST elevation (NSTEMI) myocardial infarction Status: Acute Plan 1. NSTEMI 2. Coronary artery disease. LAD STEMI in May 2024. 3. Ischemic cardiomyopathy with LVEF 40-45% 4. Hypertension 5. Hyperlipidemia 6. Type 2 diabetes mellitus PLAN: -Will treat as NSTEMI. Continue Heparin drip. Has been fully compliant with his ASA and Brilinta, continue DAPT therapy, high intensity statin. Will plan for staged PCI tomorrow 07/18. NPO at midnight. Recommendations and plan discussed with Hospitalist. History of Present Illness History of Present Illness Consult date/time: 07/17/24 15:09 Requesting physician: Bruno Aguilera MD Consult reason: chest pain Reason For Visit: nstemi, chf Narrative: Albaro is a 74 year old male with LAD STEMI in May 2024 who is well known to us. Scheduled to have staged PCI with Dr. Link at [facility] on 07/23. Patient speaks very little Latvian, therefore, grandson interpreted for us as he was at bedside. Had severe substernal chest pain that awoke him and persisted until he came to ER today. Improved with NTG. He is currently resting comfortably. Was recently here at [place] [facility] on 07/13 for anxiety, troponins were negative at that time. Now has troponin elevation of 0.057 followed by 0.084. EKG shows sinus rhythm, inverted T-waves in the anterolateral leads, which are similar to previous EKG and likely from his LAD infarction. Review of Systems Review of Systems: All systems reviewed & are unremarkable except as noted in HPI and below (HPI) [facility] Past Medical History Medical History Benign prostate hyperplasia ST elevation myocardial infarction (STEMI) (06/22/24) status post PCI to the LAD Ischemic cardiomyopathy Type 2 diabetes mellitus Hypertension Compression fracture of L4 vertebra Hyperlipidemia Urinary retention Chronic indwelling Joiner catheter Coronary artery disease Surgical History Surgical History History of open reduction and internal fixation (ORIF) procedure repair of left 4 through 9 rib fractures History of percutaneous coronary intervention (05/2024) PCI to the LAD Family History Family History Mother Family history unknown Social History Social History Social History: Surrogate medical decision maker: Delta Anderson, daughter ([phone]). Code status: Full code. Smoking status: Never smoker Alcohol intake: never Substance use: never Substance use type: does not use Do You Feel Safe in your Home?: Yes Lack of Transportation: No Lack of Food: Never True Current Housing: I Have Housing Concerned About Future Housing: No Difficulty Paying Gas/Electric Bills: No Difficulty Paying for Meds: No Currently Unemployed: No Education: Master's Degree or Higher Difficulty w/ Childcare or Family Care: No Living arrangements: with family Spiritual care concerns: No Meds Home Medications and Allergies Home Medications ?Medication ?Instructions ?Recorded ?Confirmed ?Type insulin glargine 100 unit/mL 18 unit subcut DAILY DM 10/29/23 07/17/24 History subcutaneous solution (Lantus U-100 Insulin) insulin lispro 100 unit/mL 1 sliding scale dose subcut ACHS dm 10/29/23 07/17/24 History subcutaneous pen lactulose 10 gram/15 mL oral 30 ml PO TID 06/22/24 07/17/24 History solution ticagrelor 90 mg tablet (Brilinta) 90 mg PO Q12HR #90 tabs 06/24/24 07/17/24 Rx aspirin 81 mg tablet,delayed 81 mg PO QAM #90 tabs 06/25/24 07/17/24 Rx release atorvastatin 80 mg tablet (Lipitor) 80 mg PO DAILY #90 tabs 06/25/24 07/17/24 Rx losartan 25 mg tablet 25 mg PO DAILY #90 tabs 06/25/24 07/17/24 Rx metoprolol succinate 50 mg 50 mg PO DAILY #90 tabs 06/25/24 07/17/24 Rx tablet,extended release 24 hr (Toprol XL) guaifenesin 600 mg tablet, 600 mg PO Q12HR #30 tabs 07/01/24 07/17/24 Rx extended release 12 hr (Mucus Relief ER) tamsulosin 0.4 mg capsule 0.4 mg PO QAM #30 caps 07/01/24 07/17/24 Rx lorazepam 0.5 mg tablet (Ativan) 0.5 mg PO TID PRN anxiety #14 tabs 07/13/24 07/17/24 Rx amoxicillin 500 mg capsule 500 mg PO TID 07/17/24 07/17/24 History Allergies Allergy/AdvReac Type Severity Reaction Status Date / Time No Known Allergies Allergy Verified 07/17/24 12:49 Vital Signs Vital Signs - 24 hr 07/17/24 08:27 07/17/24 12:54 07/17/24 12:54 Temperature 36.4 C 36.7 C Pulse Rate 88 71 88 Respiratory Rate 24 H 14 24 H Blood Pressure 135/72 137/98 H Pulse Oximetry 98 97 98 Oxygen Delivery Room Air Room Air 07/17/24 13:15 07/17/24 13:15 Temperature Pulse Rate 67 67 Respiratory Rate Blood Pressure Pulse Oximetry Oxygen Delivery Exam Const: General: no acute distress HENMT: Mouth: Yes moist mucous membranes Eyes: General: appearance normal, both eyes and all related structures Sclera: sclerae normal Resp: Effort & Inspection: normal respiratory effort Cardio: Rate: regular rate Rhythm: regular rhythm Heart sounds: no murmurs Skin: General skin exam: normal color Neuro: Speech: normal speech Psych: Mental Status: mental status grossly normal Affect: normal affect Results Labs and Meds 07/17/24 08:40 07/17/24 08:40 Lab results: Cardiac Enzymes 07/17/24 07/17/24 Range/Units 08:40 12:22 AST 20 (17-59) U/L Troponin I 0.057 H* 0.084 H* D (0.000-0.034) ng/mL Coagulation 07/17/24 Range/Units 09:33 PT 13.7 (11.1-14.7) Seconds APTT 25.5 (22.3-36.8) Seconds CBC 07/17/24 Range/Units 08:40 WBC 6.9 (4.5-10.0) K/mm3 RBC 3.99 L (4.6-6.20) M/mm3 Hgb 11.1 L (14.0-18.0) g/dL Hct 35.4 L (42.0-52.0) % Plt Count 194 (150-375) k/mm3 Lymph # (Auto) 1.75 (0.9-3.2) K/mm3 [place] # (Auto) 0.6 (0.1-0.6) K/mm3 Eos # (Auto) 0.1 (0-0.3) K/mm3 Baso # (Auto) 0.0 (0.0-0.1) K/mm3 Comprehensive Metabolic Panel 07/17/24 Range/Units 08:40 Sodium 136 L (137-145) mmol/L Potassium 3.2 L (3.4-5.0) mmol/L Chloride 105 (98-107) mmol/L Carbon Dioxide 23 (22-30) mmol/L BUN 14 (9-20) mg/dL Creatinine 0.95 (0.7-1.3) mg/dL Glucose 294 H (65-110) mg/dL Calcium 8.4 (8.4-10.2) mg/dL AST 20 (17-59) U/L ALT 16 (6-50) U/L Alkaline Phosphatase 88 (38-126) U/L Total Protein 7.0 (6.3-8.2) g/dL Albumin 3.2 L (3.5-5.1) g/dL Patient Weight 07/17/24 23:59 Weight 69.5 kg
[2024-07-17 15:51] LABS: Troponin I 0.098 ng/mL (0.000-0.034)
[2024-07-17 17:26] LABS: INR 1.1; Prothrombin Time 14.4 Seconds (11.1-14.7)
[2024-07-17 17:27] LABS: Partial Thromboplastin Time 45.6 Seconds (22.3-36.8)
[2024-07-17 18:24] LABS: Glucose Point of Care 246 mg/dl (65-105)
--- NOTE | 2024-07-17 18:35 | PC.NURSE ---
PATIENT REFUSING DINNER. WILL NOT ADMIN INSULIN.
[2024-07-17 20:50] LABS: Glucose Point of Care 214 mg/dl (65-105)
[2024-07-17] MEDS: TICAGRELOR 90 MG TABLET PO (20:56)
[2024-07-17] MEDS: guaiFENesin 12 HR 600 MG TABCR PO (21:54)
[2024-07-18] VITALS (28 sets, daily range): BP systolic 105–156; BP diastolic 54–95; PULSE 64–109; RESP 16–20; TEMP 36.4–37.3; O2SAT 98–100
[2024-07-18 00:31] LABS: Partial Thromboplastin Time > 200.0 Seconds (22.3-36.8)
[2024-07-18] MEDS: HEPARIN SOD/D5W 100 UNITS/ML 25,000 UNITS/250 ML BAG 9 UNITS IV CONT (01:45)
[2024-07-18 06:55] LABS: Basophils Absolute Auto 0.1 K/mm3 (0.0-0.1); Eosinophils Absolute Auto 0.2 K/mm3 (0-0.3); Eosinophils Percent Auto 2.8 % (0-4.4); Hematocrit 33.1 % (42.0-52.0); Hemoglobin 10.7 g/dL (14.0-18.0); Immature Granulocyte Absolute 0.02 K/mm3 (0.00-0.031); Immature Granulocyte Percent A 0.3 % (0-0.5); Lymphocytes Absolute Auto 2.37 K/mm3 (0.9-3.2); Lymphocytes Percent Auto 33.5 % (18.3-44.2); Mean Corpuscular HGB Conc 32.3 g/dl (32-36); Mean Corpuscular Hemoglobin 28.5 pg (26-34); Mean Platelet Volume 12.2 fl (7.4-10.4); Monocytes Absolute Auto 0.8 K/mm3 (0.1-0.6); Monocytes Percent Auto 11.2 % (2.6-8.5); Neutrophils Absolute Auto 3.6 K/mm3 (1.3-6.7); Neutrophils Percent Auto 51.2 % (45.5-73.1); Platelet Count Result 179 k/mm3 (150-375); Red Blood Count 3.76 M/mm3 (4.6-6.20); Red Cell Distribution Width 14.7 % (11.5-14.5); White Blood Count 7.1 K/mm3 (4.5-10.0)
[2024-07-18 07:03] LABS: Potassium 3.2 mmol/L (3.4-5.0)
[2024-07-18 07:07] LABS: Anion Gap 6 mmol/L (4-12); Blood Urea Nitrogen 14 mg/dL (9-20); Calcium 8.3 mg/dL (8.4-10.2); Carbon Dioxide 28 mmol/L (22-30); Chloride 105 mmol/L (98-107); Estimated CRCL calculation 54 ml/min; Estimated Glomerular Filt Rate > 60; Glucose 209 mg/dL (65-110); Magnesium 1.7 mg/dL (1.6-2.3); Sodium 139 mmol/L (137-145)
[2024-07-18 07:12] LABS: Partial Thromboplastin Time 113.1 Seconds (22.3-36.8)
[2024-07-18 08:32] LABS: Iron 58 ug/dL (49-181); Percent Iron Saturation 25 % (20-50)
[2024-07-18 08:40] LABS: Glucose Point of Care 209 mg/dl (65-105)
[2024-07-18] MEDS: INSULIN GLARGINE (*BKC) 100 UNITS/ML 18 UNITS SUB-Q (09:27)
[2024-07-18] MEDS: METOPROLOL SUCCINATE EXT REL 50 MG TABCR PO (09:29)
[2024-07-18] MEDS: TICAGRELOR 90 MG TABLET PO ×2 (09:29→21:04)
[2024-07-18] MEDS: ATORVASTATIN 40 MG TABLET 80 MG PO (09:30)
[2024-07-18] MEDS: TAMSULOSIN HCL 0.4 MG CAPSULE PO (09:30)
[2024-07-18] MEDS: ASPIRIN 81 MG ENTERIC TABLET PO (09:30)
[2024-07-18] MEDS: guaiFENesin 12 HR 600 MG TABCR PO ×2 (09:49→21:04)
--- NOTE | 2024-07-18 12:23 | P.PNCA_ITS ---
Progress Note: A&P Assessment and Plan (1) Non-ST elevated myocardial infarction: Code(s): I21.4 - Non-ST elevation (NSTEMI) myocardial infarction Status: Acute (2) Ischemic cardiomyopathy: Code(s): I25.5 - Ischemic cardiomyopathy Status: Acute (3) Hyperlipidemia: Code(s): E78.5 - Hyperlipidemia, unspecified Status: Acute Plan 74-year-old man with CAD (ST-elevation CO in 05/2024 status post PCI to LAD with residual obstructive left circumflex disease), ischemic cardiomyopathy (LVEF 40- 45%), hypertension, hyperlipidemia, and diabetes presented with chest discomfort whose clinical presentation is consistent with a non ST elevation CO Non ST-elevation CO -on heparin drip -continue aspirin 81 mg p.o. daily, Brilinta 90 mg p.o. b.i.d., and Toprol 50 mg p.o. daily -will proceed with PCI of left circumflex/OM branch Ischemic cardiomyopathy -euvolemic and will add losartan 25 mg p.o. daily Hyperlipidemia -continue atorvastatin 80 mg every Subjective Date/time seen: 07/18/24 12:23 Interval history: Still having some left-sided chest discomfort. Review of Systems Cardiovascular: Cardiovascular: Reports as per HPI Respiratory: Respiratory: Reports as per HPI Exam Const: General: comfortable HENMT: Mouth: Yes moist mucous membranes Eyes: EOM: EOMs intact bilaterally Neck: Neck: no JVD Resp: Effort & Inspection: normal respiratory effort Auscultation: clear to auscultation bilaterally Cardio: Rate: regular rate Rhythm: regular rhythm Extrem: General: no pedal edema Objective Data Vital Signs Vital Signs: Vital Signs - 24 hr 07/17/24 12:54 07/17/24 12:54 07/17/24 13:15 Temperature 36.7 C Pulse Rate 71 88 67 Respiratory Rate 14 24 H Blood Pressure 137/98 H Pulse Oximetry 97 98 Oxygen Delivery Room Air 07/17/24 13:15 07/17/24 15:15 07/17/24 16:14 Temperature Pulse Rate 67 86 71 Respiratory Rate 20 Blood Pressure Pulse Oximetry 98 Oxygen Delivery Room Air 07/17/24 16:14 07/17/24 18:00 07/17/24 19:05 Temperature 36.8 C 36.8 C Pulse Rate 71 79 74 Respiratory Rate 22 H 21 H Blood Pressure 156/75 H 155/74 H Pulse Oximetry 98 100 Oxygen Delivery 07/17/24 19:33 07/17/24 20:00 07/17/24 20:00 Temperature 36.4 C Pulse Rate 77 74 Respiratory Rate 16 Blood Pressure 143/86 H Pulse Oximetry 100 Oxygen Delivery Room Air 07/17/24 20:00 07/18/24 00:00 07/18/24 00:00 Temperature 36.5 C Pulse Rate 72 70 Respiratory Rate 18 Blood Pressure 135/54 L Pulse Oximetry 98 Oxygen Delivery Room Air 07/18/24 00:00 07/18/24 02:00 07/18/24 04:00 Temperature 36.5 C Pulse Rate 66 69 76 Respiratory Rate 18 Blood Pressure 138/58 L Pulse Oximetry 100 Oxygen Delivery 07/18/24 04:00 07/18/24 04:00 07/18/24 06:00 Temperature Pulse Rate 80 64 Respiratory Rate Blood Pressure Pulse Oximetry Oxygen Delivery Room Air 07/18/24 08:00 07/18/24 08:45 07/18/24 09:29 Temperature 36.6 C Pulse Rate 97 74 72 Respiratory Rate 20 Blood Pressure 156/78 H Pulse Oximetry 100 Oxygen Delivery 07/18/24 10:00 07/18/24 12:00 Temperature 36.5 C Pulse Rate 82 65 Respiratory Rate 18 Blood Pressure 150/69 H Pulse Oximetry 100 Oxygen Delivery Intake/Output Intake/Output: Intake & Output 07/15/24 07/16/24 07/17/24 07/18/24 23:59 23:59 23:59 23:59 Intake Total 59.9 131.0 Balance 59.9 131.0 Meds/Results Medications: Active Medications Generic Name Dose Route Start Last Admin Trade Name Freq PRN Reason Stop Dose Admin Acetaminophen 650 mg 07/17/24 10:20 Acetaminophen 325 Mg Tablet PO Q4H PRN Mild Pain (1-3) or Fever Hydrocodone Bitart/Acetaminophen 1 tab 07/17/24 10:20 Hydrocodone/Acetaminophen (*Crx) 5-325 Mg Tablet PO Q4H PRN Pain Rated 4-6 Aspirin 81 mg 07/18/24 09:00 07/18/24 09:30 Aspirin 81 Mg Enteric Tablet PO 81 mg QAM SVETLANA Administration Atorvastatin Calcium 80 mg 07/18/24 09:00 07/18/24 09:30 Atorvastatin 40 Mg Tablet PO 80 mg DAILY SVETLANA Administration Dextrose 12.5 gm 07/17/24 13:20 Dextrose 50% 25 Gm/50 Ml Syringe IV PUSH PRN PRN Hypoglycemia Protocol Glucagon 1 mg 07/17/24 13:20 Glucagon For Inj 1 Mg Vial IM PRN PRN Hypoglycemia Protocol Glucose 15 gm 07/17/24 13:20 Glucose Oral Gel 15 Gm Of Glucse In 37.5 Gm Tube PO PRN PRN Hypoglycemia Protocol Guaifenesin 600 mg 07/17/24 21:00 07/18/24 09:49 Guaifenesin 12 Hr 600 Mg Tabcr PO 600 mg Q12HR SVETLANA Administration Heparin Sodium (Porcine) 4,000 units 07/17/24 09:33 07/17/24 17:48 Heparin Sodium 5,000 Units/Ml Vial IV PUSH 4,000 units PRN PRN Administration aPTT less than 55 seconds Heparin Sodium (Porcine) 3,000 units 07/17/24 09:33 Heparin Sodium 5,000 Units/Ml Vial IV PUSH PRN PRN aPTT 55 - 70 seconds Dextrose 1,000 mls @ 100 mls/hr 07/17/24 13:20 Dextrose 5% 1,000 Ml IVPB PRN PRN Hypoglycemia Protocol Heparin Sodium/Dextrose 25,000 units in 250 mls @ 8 mls/hr 07/18/24 01:45 07/18/24 07:51 Heparin Sodium/D5w 100 Units/Ml IV CONT 800 units/hr .Q24H SVETLANA 8 mls/hr Infusion Protocol 800 UNITS/HR Insulin Aspart 3 - 6 units 07/17/24 17:00 07/18/24 12:09 Insulin Aspart (*Bkc) 100 Units/Ml SUB-Q Not Given TIDWM [facility] Protocol Insulin Aspart 1 - 3 units 07/17/24 21:00 07/17/24 20:56 Insulin Aspart (*Bkc) 100 Units/Ml SUB-Q 1 units HS SVETLANA Administration Protocol Insulin Glargine 18 units 07/18/24 09:00 07/18/24 09:27 Insulin Glargine (*Bkc) 100 Units/Ml SUB-Q 18 units DAILY SVETLANA Administration Lactulose 20 gm 07/18/24 09:00 07/18/24 12:08 Lactulose 20 Gm/30 Ml Udc PO Not Given TID [facility] Metoprolol Succinate 50 mg 07/18/24 09:00 07/18/24 09:29 Metoprolol Succinate Ext Rel 50 Mg Tabcr PO 50 mg DAILY SVETLANA Administration Ondansetron HCl 4 mg 07/17/24 10:20 Ondansetron Inj 4 Mg/2 Ml Vial IV PUSH Q4H PRN Nausea Tamsulosin HCl 0.4 mg 07/18/24 09:00 07/18/24 09:30 Tamsulosin Hcl 0.4 Mg Capsule PO 0.4 mg QAM SVETLANA Administration Ticagrelor 90 mg 07/18/24 09:00 07/18/24 09:29 Ticagrelor 90 Mg Tablet PO 90 mg Q12HR SVETLANA Administration Radiology Results: ITS Impressions Chest X-Ray 07/17/24 09:36 IMPRESSION: 1: NO ACUTE CARDIOPULMONARY DISEASE. 2: Left acromion fracture with nonunion, not visualized on prior examination. Scapula X-Ray 07/17/24 19:48 IMPRESSION: 1. 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 2. Polyarticular osteoarthritis. Shoulder X-Ray 07/18/24 09:13 IMPRESSION: Mild right acromioclavicular osteoarthritis. No acute osseous abnormality. Labs Labs: Laboratory Results - last 24 hr 07/17/24 07/17/24 07/17/24 12:22 13:58 15:05 WBC RBC Hgb Hct MCV MCH MCHC RDW Plt Count MPV Immature Gran % (Auto) Neut % (Auto) Lymph % (Auto) [place] % (Auto) Eos % (Auto) Baso % (Auto) Lymph # (Auto) [place] # (Auto) Eos # (Auto) Baso # (Auto) Abs Immat Gran (auto) Absolute Neuts (auto) Absolute Nucleated RBC Nucleated RBC % PT INR APTT Sodium Potassium Chloride Carbon Dioxide Anion Gap BUN Creatinine Estim Creat Clear Calc Estimated GFR Glucose POC Capillary Glucose 222 H Calcium Magnesium Iron TIBC % Saturation Ferritin Troponin I 0.084 H* D 0.098 H* 07/17/24 07/17/24 07/17/24 17:09 18:12 20:47 WBC RBC Hgb Hct MCV MCH MCHC RDW Plt Count MPV Immature Gran % (Auto) Neut % (Auto) Lymph % (Auto) [place] % (Auto) Eos % (Auto) Baso % (Auto) Lymph # (Auto) [place] # (Auto) Eos # (Auto) Baso # (Auto) Abs Immat Gran (auto) Absolute Neuts (auto) Absolute Nucleated RBC Nucleated RBC % PT 14.4 INR 1.1 APTT 45.6 H Sodium Potassium Chloride Carbon Dioxide Anion Gap BUN Creatinine Estim Creat Clear Calc Estimated GFR Glucose POC Capillary Glucose 246 H 214 H Calcium Magnesium Iron TIBC % Saturation Ferritin Troponin I 07/17/24 07/18/24 07/18/24 23:58 06:38 06:38 WBC 7.1 RBC 3.76 L Hgb 10.7 L Hct 33.1 L MCV 88.0 MCH 28.5 MCHC 32.3 RDW 14.7 H Plt Count 179 MPV 12.2 H Immature Gran % (Auto) 0.3 Neut % (Auto) 51.2 Lymph % (Auto) 33.5 [place] % (Auto) 11.2 H Eos % (Auto) 2.8 Baso % (Auto) 1.0 Lymph # (Auto) 2.37 [place] # (Auto) 0.8 H Eos # (Auto) 0.2 Baso # (Auto) 0.1 Abs Immat Gran (auto) 0.02 Absolute Neuts (auto) 3.6 Absolute Nucleated RBC 0.000 Nucleated RBC % 0.0 PT INR APTT > 200.0 H* 113.1 H Sodium 139 Potassium 3.2 L Chloride 105 Carbon Dioxide 28 Anion Gap 6 BUN 14 Creatinine 0.97 Estim Creat Clear Calc 54 Estimated GFR > 60 Glucose 209 H POC Capillary Glucose Calcium 8.3 L Magnesium 1.7 Cancelled Iron 58 TIBC 231 L % Saturation 25 Ferritin 126.00 Troponin I 07/18/24 07:52 WBC RBC Hgb Hct MCV MCH MCHC RDW Plt Count MPV Immature Gran % (Auto) Neut % (Auto) Lymph % (Auto) [place] % (Auto) Eos % (Auto) Baso % (Auto) Lymph # (Auto) [place] # (Auto) Eos # (Auto) Baso # (Auto) Abs Immat Gran (auto) Absolute Neuts (auto) Absolute Nucleated RBC Nucleated RBC % PT INR APTT Sodium Potassium Chloride Carbon Dioxide Anion Gap BUN Creatinine Estim Creat Clear Calc Estimated GFR Glucose POC Capillary Glucose 209 H Calcium Magnesium Iron TIBC % Saturation Ferritin Troponin I
[2024-07-18 12:26] LABS: Glucose Point of Care 182 mg/dl (65-105)
--- NOTE | 2024-07-18 12:51 | WPDHPUPDATE1 ---
History and Physical Update Update Date/Time: 07/18/24 [id number] History and Physical has been reviewed, including an updated exam of the patient. There are NO changes in the patient's condition. Risks, benefits, and alternatives have been discussed and questions answered. Patient agrees to proceed with procedure.
--- NOTE | 2024-07-18 12:51 | WPDMODSED ---
Moderate Sedation Note-Pt Data Patient Data Allergies Allergy/AdvReac Type Severity Reaction Status Date / Time No Known Allergies Allergy Verified 07/17/24 12:49 Home Medications ?Medication ?Instructions ?Recorded ?Confirmed ?Type insulin glargine 100 unit/mL 18 unit subcut DAILY DM 10/29/23 07/17/24 History subcutaneous solution (Lantus U-100 Insulin) insulin lispro 100 unit/mL 1 sliding scale dose subcut ACHS dm 10/29/23 07/17/24 History subcutaneous pen lactulose 10 gram/15 mL oral 30 ml PO TID 06/22/24 07/17/24 History solution ticagrelor 90 mg tablet (Brilinta) 90 mg PO Q12HR #90 tabs 06/24/24 07/17/24 Rx aspirin 81 mg tablet,delayed 81 mg PO QAM #90 tabs 06/25/24 07/17/24 Rx release atorvastatin 80 mg tablet (Lipitor) 80 mg PO DAILY #90 tabs 06/25/24 07/17/24 Rx losartan 25 mg tablet 25 mg PO DAILY #90 tabs 06/25/24 07/17/24 Rx metoprolol succinate 50 mg 50 mg PO DAILY #90 tabs 06/25/24 07/17/24 Rx tablet,extended release 24 hr (Toprol XL) guaifenesin 600 mg tablet, 600 mg PO Q12HR #30 tabs 07/01/24 07/17/24 Rx extended release 12 hr (Mucus Relief ER) tamsulosin 0.4 mg capsule 0.4 mg PO QAM #30 caps 07/01/24 07/17/24 Rx lorazepam 0.5 mg tablet (Ativan) 0.5 mg PO TID PRN anxiety #14 tabs 07/13/24 07/17/24 Rx amoxicillin 500 mg capsule 500 mg PO TID 07/17/24 07/17/24 History Current Medications: Active Medications Acetaminophen (Acetaminophen 325 Mg Tablet) 650 mg PO Q4H PRN PRN Reason: Mild Pain (1-3) or Fever Hydrocodone Bitart/Acetaminophen (Hydrocodone/Acetaminophen (*Crx) 5-325 Mg Tablet) 1 tab PO Q4H PRN PRN Reason: Pain Rated 4-6 Aspirin (Aspirin 81 Mg Enteric Tablet) 81 mg PO QAM SVETLANA Last Admin: 07/18/24 09:30 Dose: 81 mg Atorvastatin Calcium (Atorvastatin 40 Mg Tablet) 80 mg PO DAILY [facility] Last Admin: 07/18/24 09:30 Dose: 80 mg Dextrose (Dextrose 50% 25 Gm/50 Ml Syringe) 12.5 gm IV PUSH PRN PRN; Protocol PRN Reason: Hypoglycemia Glucagon (Glucagon For Inj 1 Mg Vial) 1 mg IM PRN PRN; Protocol PRN Reason: Hypoglycemia Glucose (Glucose Oral Gel 15 Gm Of Glucse In 37.5 Gm Tube) 15 gm PO PRN PRN; Protocol PRN Reason: Hypoglycemia Guaifenesin (Guaifenesin 12 Hr 600 Mg Tabcr) 600 mg PO Q12HR SVETLANA Last Admin: 07/18/24 09:49 Dose: 600 mg Heparin Sodium (Porcine) (Heparin Sodium 5,000 Units/Ml Vial) 4,000 units IV PUSH PRN PRN PRN Reason: aPTT less than 55 seconds Last Admin: 07/17/24 17:48 Dose: 4,000 units Heparin Sodium (Porcine) (Heparin Sodium 5,000 Units/Ml Vial) 3,000 units IV PUSH PRN PRN PRN Reason: aPTT 55 - 70 seconds Dextrose (Dextrose 5% 1,000 Ml) 1,000 mls @ 100 mls/hr IVPB PRN PRN; Protocol PRN Reason: Hypoglycemia Heparin Sodium/Dextrose (Heparin Sodium/D5w 100 Units/Ml) 25,000 units in 250 mls @ 8 mls/hr IV CONT .Q24H SVETLANA; Protocol Last Infusion: 07/18/24 07:51 Dose: 800 units/hr, 8 mls/hr Insulin Aspart (Insulin Aspart (*Bkc) 100 Units/Ml) 3 - 6 units SUB-Q TIDWM SVETLANA; Protocol Last Admin: 07/18/24 12:09 Dose: Not Given Insulin Aspart (Insulin Aspart (*Bkc) 100 Units/Ml) 1 - 3 units SUB-Q HS SVETLANA; Protocol Last Admin: 07/17/24 20:56 Dose: 1 units Insulin Glargine (Insulin Glargine (*Bkc) 100 Units/Ml) 18 units SUB-Q DAILY SVETLANA Last Admin: 07/18/24 09:27 Dose: 18 units Lactulose (Lactulose 20 Gm/30 Ml Udc) 20 gm PO TID SVETLANA Last Admin: 07/18/24 12:08 Dose: Not Given Losartan Potassium (Losartan Potassium 25 Mg Tablet) 25 mg PO DAILY [facility] Metoprolol Succinate (Metoprolol Succinate Ext Rel 50 Mg Tabcr) 50 mg PO DAILY [facility] Last Admin: 07/18/24 09:29 Dose: 50 mg Ondansetron HCl (Ondansetron Inj 4 Mg/2 Ml Vial) 4 mg IV PUSH Q4H PRN PRN Reason: Nausea Tamsulosin HCl (Tamsulosin Hcl 0.4 Mg Capsule) 0.4 mg PO QAM [facility] Last Admin: 07/18/24 09:30 Dose: 0.4 mg Ticagrelor (Ticagrelor 90 Mg Tablet) 90 mg PO Q12HR [facility] Last Admin: 07/18/24 09:29 Dose: 90 mg Sedation/Anesthesia: No previous sedation/anesthesia problems (including family history). [facility] Past Medical History Medical History Benign prostate hyperplasia ST elevation myocardial infarction (STEMI) (06/22/24) status post PCI to the LAD Ischemic cardiomyopathy Type 2 diabetes mellitus Hypertension Compression fracture of L4 vertebra Hyperlipidemia Urinary retention Chronic indwelling Joiner catheter Coronary artery disease Surgical History Surgical History History of open reduction and internal fixation (ORIF) procedure repair of left 4 through 9 rib fractures History of percutaneous coronary intervention (05/2024) PCI to the LAD Family History Family History Mother Family history unknown Social History Social History (Updated 07/17/24 @ 21:15 by Chanda Reeves PA-C) Social History: Surrogate medical decision maker: Delta Anderson, daughter ([phone]). Code status: Full code. Smoking status: Never smoker Alcohol intake: never Substance use: never Substance use type: does not use Do You Feel Safe in your Home?: Yes Lack of Transportation: No Lack of Food: Never True Current Housing: I Have Housing Concerned About Future Housing: No Difficulty Paying Gas/Electric Bills: No Difficulty Paying for Meds: No Currently Unemployed: No Education: Master's Degree or Higher Difficulty w/ Childcare or Family Care: No Living arrangements: with family Spiritual care concerns: No Mod Sed Physical Exam Physical Exam Pre Procedural Exam: Normal: Lungs, Heart Size, Heart Rate and Heart Rhythm Hours since solid foods: 13 Hours since liquid intake: 13 Mallampati Classification: class II Internal Medicine - PN: Obj Da Vital Signs Vital Signs: Vital Signs - 24 hr 07/17/24 12:54 07/17/24 12:54 07/17/24 13:15 Temperature 36.7 C Pulse Rate 71 88 67 Respiratory Rate 14 24 H Blood Pressure 137/98 H Pulse Oximetry 97 98 Oxygen Delivery Room Air 07/17/24 13:15 07/17/24 15:15 07/17/24 16:14 Temperature Pulse Rate 67 86 71 Respiratory Rate 20 Blood Pressure Pulse Oximetry 98 Oxygen Delivery Room Air 07/17/24 16:14 07/17/24 18:00 07/17/24 19:05 Temperature 36.8 C 36.8 C Pulse Rate 71 79 74 Respiratory Rate 22 H 21 H Blood Pressure 156/75 H 155/74 H Pulse Oximetry 98 100 Oxygen Delivery 07/17/24 19:33 07/17/24 20:00 07/17/24 20:00 Temperature 36.4 C Pulse Rate 77 74 Respiratory Rate 16 Blood Pressure 143/86 H Pulse Oximetry 100 Oxygen Delivery Room Air 07/17/24 20:00 07/18/24 00:00 07/18/24 00:00 Temperature 36.5 C Pulse Rate 72 70 Respiratory Rate 18 Blood Pressure 135/54 L Pulse Oximetry 98 Oxygen Delivery Room Air 07/18/24 00:00 07/18/24 02:00 07/18/24 04:00 Temperature 36.5 C Pulse Rate 66 69 76 Respiratory Rate 18 Blood Pressure 138/58 L Pulse Oximetry 100 Oxygen Delivery 07/18/24 04:00 07/18/24 04:00 07/18/24 06:00 Temperature Pulse Rate 80 64 Respiratory Rate Blood Pressure Pulse Oximetry Oxygen Delivery Room Air 07/18/24 08:00 07/18/24 08:45 07/18/24 09:29 Temperature 36.6 C Pulse Rate 97 74 72 Respiratory Rate 20 Blood Pressure 156/78 H Pulse Oximetry 100 Oxygen Delivery 07/18/24 10:00 07/18/24 12:00 07/18/24 12:20 Temperature 36.5 C Pulse Rate 82 65 69 Respiratory Rate 18 Blood Pressure 150/69 H Pulse Oximetry 100 Oxygen Delivery Intake/Output Intake/Output: Intake & Output 07/15/24 07/16/24 07/17/24 07/18/24 23:59 23:59 23:59 23:59 Intake Total 59.9 131.0 Balance 59.9 131.0 Meds/Results Medications: Active Medications Generic Name Dose Route Start Last Admin Trade Name Freq PRN Reason Stop Dose Admin Acetaminophen 650 mg 07/17/24 10:20 Acetaminophen 325 Mg Tablet PO Q4H PRN Mild Pain (1-3) or Fever Hydrocodone Bitart/Acetaminophen 1 tab 07/17/24 10:20 Hydrocodone/Acetaminophen (*Crx) 5-325 Mg Tablet PO Q4H PRN Pain Rated 4-6 Aspirin 81 mg 07/18/24 09:00 07/18/24 09:30 Aspirin 81 Mg Enteric Tablet PO 81 mg QAM SVETLANA Administration Atorvastatin Calcium 80 mg 07/18/24 09:00 07/18/24 09:30 Atorvastatin 40 Mg Tablet PO 80 mg DAILY SVETLANA Administration Dextrose 12.5 gm 07/17/24 13:20 Dextrose 50% 25 Gm/50 Ml Syringe IV PUSH PRN PRN Hypoglycemia Protocol Glucagon 1 mg 07/17/24 13:20 Glucagon For Inj 1 Mg Vial IM PRN PRN Hypoglycemia Protocol Glucose 15 gm 07/17/24 13:20 Glucose Oral Gel 15 Gm Of Glucse In 37.5 Gm Tube PO PRN PRN Hypoglycemia Protocol Guaifenesin 600 mg 07/17/24 21:00 07/18/24 09:49 Guaifenesin 12 Hr 600 Mg Tabcr PO 600 mg Q12HR SVETLANA Administration Heparin Sodium (Porcine) 4,000 units 07/17/24 09:33 07/17/24 17:48 Heparin Sodium 5,000 Units/Ml Vial IV PUSH 4,000 units PRN PRN Administration aPTT less than 55 seconds Heparin Sodium (Porcine) 3,000 units 07/17/24 09:33 Heparin Sodium 5,000 Units/Ml Vial IV PUSH PRN PRN aPTT 55 - 70 seconds Dextrose 1,000 mls @ 100 mls/hr 07/17/24 13:20 Dextrose 5% 1,000 Ml IVPB PRN PRN Hypoglycemia Protocol Heparin Sodium/Dextrose 25,000 units in 250 mls @ 8 mls/hr 07/18/24 01:45 07/18/24 07:51 Heparin Sodium/D5w 100 Units/Ml IV CONT 800 units/hr .Q24H SVETLANA 8 mls/hr Infusion Protocol 800 UNITS/HR Insulin Aspart 3 - 6 units 07/17/24 17:00 07/18/24 12:09 Insulin Aspart (*Bkc) 100 Units/Ml SUB-Q Not Given TIDWM [facility] Protocol Insulin Aspart 1 - 3 units 07/17/24 21:00 07/17/24 20:56 Insulin Aspart (*Bkc) 100 Units/Ml SUB-Q 1 units HS SVETLANA Administration Protocol Insulin Glargine 18 units 07/18/24 09:00 07/18/24 09:27 Insulin Glargine (*Bkc) 100 Units/Ml SUB-Q 18 units DAILY SVETLANA Administration Lactulose 20 gm 07/18/24 09:00 07/18/24 12:08 Lactulose 20 Gm/30 Ml Udc PO Not Given TID [facility] Losartan Potassium 25 mg 07/19/24 09:00 Losartan Potassium 25 Mg Tablet PO DAILY [facility] Metoprolol Succinate 50 mg 07/18/24 09:00 07/18/24 09:29 Metoprolol Succinate Ext Rel 50 Mg Tabcr PO 50 mg DAILY SVETLANA Administration Ondansetron HCl 4 mg 07/17/24 10:20 Ondansetron Inj 4 Mg/2 Ml Vial IV PUSH Q4H PRN Nausea Tamsulosin HCl 0.4 mg 07/18/24 09:00 07/18/24 09:30 Tamsulosin Hcl 0.4 Mg Capsule PO 0.4 mg QAM [facility] Administration Ticagrelor 90 mg 07/18/24 09:00 07/18/24 09:29 Ticagrelor 90 Mg Tablet PO 90 mg Q12HR SVETLANA Administration Radiology Results: ITS Impressions Chest X-Ray 07/17/24 09:36 IMPRESSION: 1: NO ACUTE CARDIOPULMONARY DISEASE. 2: Left acromion fracture with nonunion, not visualized on prior examination. Scapula X-Ray 07/17/24 19:48 IMPRESSION: 1. 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 2. Polyarticular osteoarthritis. Shoulder X-Ray 07/18/24 09:13 IMPRESSION: Mild right acromioclavicular osteoarthritis. No acute osseous abnormality. Labs 07/18/24 06:38 07/18/24 06:38 Labs: Laboratory Results - last 24 hr 07/17/24 07/17/24 07/17/24 12:22 13:58 15:05 WBC RBC Hgb Hct MCV MCH MCHC RDW Plt Count MPV Immature Gran % (Auto) Neut % (Auto) Lymph % (Auto) [place] % (Auto) Eos % (Auto) Baso % (Auto) Lymph # (Auto) [place] # (Auto) Eos # (Auto) Baso # (Auto) Abs Immat Gran (auto) Absolute Neuts (auto) Absolute Nucleated RBC Nucleated RBC % PT INR APTT Sodium Potassium Chloride Carbon Dioxide Anion Gap BUN Creatinine Estim Creat Clear Calc Estimated GFR Glucose POC Capillary Glucose 222 H Calcium Magnesium Iron TIBC % Saturation Ferritin Troponin I 0.084 H* D 0.098 H* 07/17/24 07/17/24 07/17/24 17:09 18:12 20:47 WBC RBC Hgb Hct MCV MCH MCHC RDW Plt Count MPV Immature Gran % (Auto) Neut % (Auto) Lymph % (Auto) [place] % (Auto) Eos % (Auto) Baso % (Auto) Lymph # (Auto) [place] # (Auto) Eos # (Auto) Baso # (Auto) Abs Immat Gran (auto) Absolute Neuts (auto) Absolute Nucleated RBC Nucleated RBC % PT 14.4 INR 1.1 APTT 45.6 H Sodium Potassium Chloride Carbon Dioxide Anion Gap BUN Creatinine Estim Creat Clear Calc Estimated GFR Glucose POC Capillary Glucose 246 H 214 H Calcium Magnesium Iron TIBC % Saturation Ferritin Troponin I 07/17/24 07/18/24 07/18/24 23:58 06:38 06:38 WBC 7.1 RBC 3.76 L Hgb 10.7 L Hct 33.1 L MCV 88.0 MCH 28.5 MCHC 32.3 RDW 14.7 H Plt Count 179 MPV 12.2 H Immature Gran % (Auto) 0.3 Neut % (Auto) 51.2 Lymph % (Auto) 33.5 [place] % (Auto) 11.2 H Eos % (Auto) 2.8 Baso % (Auto) 1.0 Lymph # (Auto) 2.37 [place] # (Auto) 0.8 H Eos # (Auto) 0.2 Baso # (Auto) 0.1 Abs Immat Gran (auto) 0.02 Absolute Neuts (auto) 3.6 Absolute Nucleated RBC 0.000 Nucleated RBC % 0.0 PT INR APTT > 200.0 H* 113.1 H Sodium 139 Potassium 3.2 L Chloride 105 Carbon Dioxide 28 Anion Gap 6 BUN 14 Creatinine 0.97 Estim Creat Clear Calc 54 Estimated GFR > 60 Glucose 209 H POC Capillary Glucose Calcium 8.3 L Magnesium 1.7 Cancelled Iron 58 TIBC 231 L % Saturation 25 Ferritin 126.00 Troponin I 07/18/24 07/18/24 07:52 11:25 WBC RBC Hgb Hct MCV MCH MCHC RDW Plt Count MPV Immature Gran % (Auto) Neut % (Auto) Lymph % (Auto) [place] % (Auto) Eos % (Auto) Baso % (Auto) Lymph # (Auto) [place] # (Auto) Eos # (Auto) Baso # (Auto) Abs Immat Gran (auto) Absolute Neuts (auto) Absolute Nucleated RBC Nucleated RBC % PT INR APTT Sodium Potassium Chloride Carbon Dioxide Anion Gap BUN Creatinine Estim Creat Clear Calc Estimated GFR Glucose POC Capillary Glucose 209 H 182 H Calcium Magnesium Iron TIBC % Saturation Ferritin Troponin I ASA Classification/Sedation ASA Classification/Sedation ASA Class: III Emergent: No Risks: Risks, benefits and alternatives explained and patient/family accepted plan for sedation. Patient re-evaluated immediately prior to sedation.
--- NOTE | 2024-07-18 14:08 | PC.NURSE ---
1320- to cardiac cleaning laborer for procedure via stretcher accompanied by [employer] staff
[2024-07-18 14:41] LABS: Activated Clotting Time 302 SEC (74-137)
--- NOTE | 2024-07-18 14:45 | P.PNIM_ITS ---
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: Code(s): S42.122K - Displaced fracture of acromial process, left shoulder, subsequent encounter for fracture with nonunion Status: Acute (3) Hypokalemia: Code(s): E87.6 - Hypokalemia Status: Acute (4) Hypertension: Code(s): I10 - Essential (primary) hypertension Status: Acute (5) Coronary artery disease: Code(s): I25.10 - Atherosclerotic heart disease of [place] coronary artery without angina pectoris Status: Acute (6) Hyperlipidemia: Code(s): E78.5 - Hyperlipidemia, unspecified Status: Acute (7) Type 2 diabetes mellitus: Code(s): E11.9 - Type 2 diabetes mellitus without complications Status: Acute (8) Benign prostate hyperplasia: Code(s): N40.0 - Benign prostatic hyperplasia without lower urinary tract symptoms Status: Acute Plan NSTEMI patient has a recent STEMI in 03/22 s/p PCI to LAD and residual disease was noted in karol LCX Continue heparin, Aspirin, Brilinta and Metoprolol For Cardiac cath withpossible PCU to LCX today ischemic cardiomyopathy recent EHCO showed EF 40-45% Continue Losartan and Metoprolol Hypokalemia replaced and monitor HLD Continue statin HTN continue home meds DM2 SSi with accucheks and adjust with clinical course Left old acromion fracture ortho consulted on admission PRN pain control DVT prophylaxis on Heparin infusion Subjective Date/time seen: 07/18/24 14:45 Interval history: comfortable at bedside, and for cardiac cath today per my discussion with cardiology Review of Systems Review of Systems: 12 systems were reviewed and are negativ e except for as per HPI. Exam Narrative: General: Well-developed male sitting up in chair no distress. Weight: 69.5 kg. BMI: 22.0. HEENT: Normocephalic, atraumatic. PERRL, EOMI. Sclera anicteric. Oral mucosa moist. Oropharynx clear. Neck: Supple. Respiratory: Lungs are clear to auscultation bilaterally. Cardiovascular: Regular rate and rhythm with S1-S2. Gastrointestinal: Abdomen is soft, nontender, and nondistended with positive bowel sounds. Skin: Warm and dry. No rash or lesions on limited exam. Extremities: No cyanosis, clubbing, or edema. Radial and pedal pulses intact. Musculoskeletal: There is a deformity of the left shoulder without tenderness to palpation or evidence of recent trauma. He does complain of pain with palpation of the anterolateral right shoulder and reports pain with forward flexion. Neurological: Alert. Cranial nerves 2-12 are grossly intact. No gross focal deficits to casual conversation. Psychiatric: Pleasant and cooperative with appropriate mood. Objective Data Vital Signs Vital Signs: Vital Signs - 24 hr 07/17/24 15:15 07/17/24 16:14 07/17/24 16:14 Temperature 98.3 F Pulse Rate 86 71 71 Respiratory Rate 20 22 H Blood Pressure 156/75 H Pulse Oximetry 98 98 Oxygen Delivery Room Air 07/17/24 18:00 07/17/24 19:05 07/17/24 19:33 Temperature 98.2 F 97.6 F Pulse Rate 79 74 77 Respiratory Rate 21 H 16 Blood Pressure 155/74 H 143/86 H Pulse Oximetry 100 100 Oxygen Delivery 07/17/24 20:00 07/17/24 20:00 07/17/24 20:00 Temperature Pulse Rate 74 72 Respiratory Rate Blood Pressure Pulse Oximetry Oxygen Delivery Room Air 07/18/24 00:00 07/18/24 00:00 07/18/24 00:00 Temperature 97.7 F Pulse Rate 70 66 Respiratory Rate 18 Blood Pressure 135/54 L Pulse Oximetry 98 Oxygen Delivery Room Air 07/18/24 02:00 07/18/24 04:00 07/18/24 04:00 Temperature 97.7 F Pulse Rate 69 76 Respiratory Rate 18 Blood Pressure 138/58 L Pulse Oximetry 100 Oxygen Delivery Room Air 07/18/24 04:00 07/18/24 06:00 07/18/24 08:00 Temperature 97.8 F Pulse Rate 80 64 97 Respiratory Rate 20 Blood Pressure 156/78 H Pulse Oximetry 100 Oxygen Delivery 07/18/24 08:45 07/18/24 09:29 07/18/24 10:00 Temperature Pulse Rate 74 72 82 Respiratory Rate Blood Pressure Pulse Oximetry Oxygen Delivery 07/18/24 12:00 07/18/24 12:20 Temperature 97.7 F Pulse Rate 65 69 Respiratory Rate 18 Blood Pressure 150/69 H Pulse Oximetry 100 Oxygen Delivery Intake/Output Intake/Output: Intake & Output 07/15/24 07/16/24 07/17/24 07/18/24 23:59 23:59 23:59 23:59 Intake Total 59.9 131.0 Balance 59.9 131.0 Meds/Results Medications: Active Medications Generic Name Dose Route Start Last Admin Trade Name Freq PRN Reason Stop Dose Admin Acetaminophen 650 mg 07/17/24 10:20 Acetaminophen 325 Mg Tablet PO Q4H PRN Mild Pain (1-3) or Fever Hydrocodone Bitart/Acetaminophen 1 tab 07/17/24 10:20 Hydrocodone/Acetaminophen (*Crx) 5-325 Mg Tablet PO Q4H PRN Pain Rated 4-6 Aspirin 81 mg 07/18/24 09:00 07/18/24 09:30 Aspirin 81 Mg Enteric Tablet PO 81 mg QAM SVETLANA Administration Atorvastatin Calcium 80 mg 07/18/24 09:00 07/18/24 09:30 Atorvastatin 40 Mg Tablet PO 80 mg DAILY SVETLANA Administration Dextrose 12.5 gm 07/17/24 13:20 Dextrose 50% 25 Gm/50 Ml Syringe IV PUSH PRN PRN Hypoglycemia Protocol Glucagon 1 mg 07/17/24 13:20 Glucagon For Inj 1 Mg Vial IM PRN PRN Hypoglycemia Protocol Glucose 15 gm 07/17/24 13:20 Glucose Oral Gel 15 Gm Of Glucse In 37.5 Gm Tube PO PRN PRN Hypoglycemia Protocol Guaifenesin 600 mg 07/17/24 21:00 07/18/24 09:49 Guaifenesin 12 Hr 600 Mg Tabcr PO 600 mg Q12HR SVETLANA Administration Heparin Sodium (Porcine) 4,000 units 07/17/24 09:33 07/17/24 17:48 Heparin Sodium 5,000 Units/Ml Vial IV PUSH 4,000 units PRN PRN Administration aPTT less than 55 seconds Heparin Sodium (Porcine) 3,000 units 07/17/24 09:33 Heparin Sodium 5,000 Units/Ml Vial IV PUSH PRN PRN aPTT 55 - 70 seconds Dextrose 1,000 mls @ 100 mls/hr 07/17/24 13:20 Dextrose 5% 1,000 Ml IVPB PRN PRN Hypoglycemia Protocol Heparin Sodium/Dextrose 25,000 units in 250 mls @ 8 mls/hr 07/18/24 01:45 07/18/24 07:51 Heparin Sodium/D5w 100 Units/Ml IV CONT 800 units/hr .Q24H SVETLANA 8 mls/hr Infusion Protocol 800 UNITS/HR Insulin Aspart 3 - 6 units 07/17/24 17:00 07/18/24 12:09 Insulin Aspart (*Bkc) 100 Units/Ml SUB-Q Not Given TIDWM [facility] Protocol Insulin Aspart 1 - 3 units 07/17/24 21:00 07/17/24 20:56 Insulin Aspart (*Bkc) 100 Units/Ml SUB-Q 1 units HS SVETLANA Administration Protocol Insulin Glargine 18 units 07/18/24 09:00 07/18/24 09:27 Insulin Glargine (*Bkc) 100 Units/Ml SUB-Q 18 units DAILY SVETLANA Administration Lactulose 20 gm 07/18/24 09:00 07/18/24 12:08 Lactulose 20 Gm/30 Ml Udc PO Not Given TID [facility] Losartan Potassium 25 mg 07/19/24 09:00 Losartan Potassium 25 Mg Tablet PO DAILY [facility] Metoprolol Succinate 50 mg 07/18/24 09:00 07/18/24 09:29 Metoprolol Succinate Ext Rel 50 Mg Tabcr PO 50 mg DAILY [facility] Administration Ondansetron HCl 4 mg 07/17/24 10:20 Ondansetron Inj 4 Mg/2 Ml Vial IV PUSH Q4H PRN Nausea Tamsulosin HCl 0.4 mg 07/18/24 09:00 07/18/24 09:30 Tamsulosin Hcl 0.4 Mg Capsule PO 0.4 mg QAM [facility] Administration Ticagrelor 90 mg 07/18/24 09:00 07/18/24 09:29 Ticagrelor 90 Mg Tablet PO 90 mg Q12HR SVETLANA Administration Radiology Results: ITS Impressions Chest X-Ray 07/17/24 09:36 IMPRESSION: 1: NO ACUTE CARDIOPULMONARY DISEASE. 2: Left acromion fracture with nonunion, not visualized on prior examination. Scapula X-Ray 07/17/24 19:48 IMPRESSION: 1. 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 2. Polyarticular osteoarthritis. Shoulder X-Ray 07/18/24 09:13 IMPRESSION: Mild right acromioclavicular osteoarthritis. No acute osseous abnormality. Labs Labs: Laboratory Results - last 24 hr 07/17/24 07/17/24 07/17/24 15:05 17:09 18:12 WBC RBC Hgb Hct MCV MCH MCHC RDW Plt Count MPV Immature Gran % (Auto) Neut % (Auto) Lymph % (Auto) [place] % (Auto) Eos % (Auto) Baso % (Auto) Lymph # (Auto) [place] # (Auto) Eos # (Auto) Baso # (Auto) Abs Immat Gran (auto) Absolute Neuts (auto) Absolute Nucleated RBC Nucleated RBC % PT 14.4 INR 1.1 APTT 45.6 H Activ Coag Time Kaolin Sodium Potassium Chloride Carbon Dioxide Anion Gap BUN Creatinine Estim Creat Clear Calc Estimated GFR Glucose POC Capillary Glucose 246 H Calcium Magnesium Iron TIBC % Saturation Ferritin Troponin I 0.098 H* 07/17/24 07/17/24 07/18/24 20:47 23:58 06:38 WBC 7.1 RBC 3.76 L Hgb 10.7 L Hct 33.1 L MCV 88.0 MCH 28.5 MCHC 32.3 RDW 14.7 H Plt Count 179 MPV 12.2 H Immature Gran % (Auto) 0.3 Neut % (Auto) 51.2 Lymph % (Auto) 33.5 [place] % (Auto) 11.2 H Eos % (Auto) 2.8 Baso % (Auto) 1.0 Lymph # (Auto) 2.37 [place] # (Auto) 0.8 H Eos # (Auto) 0.2 Baso # (Auto) 0.1 Abs Immat Gran (auto) 0.02 Absolute Neuts (auto) 3.6 Absolute Nucleated RBC 0.000 Nucleated RBC % 0.0 PT INR APTT > 200.0 H* 113.1 H Activ Coag Time Kaolin Sodium 139 Potassium 3.2 L Chloride 105 Carbon Dioxide 28 Anion Gap 6 BUN 14 Creatinine 0.97 Estim Creat Clear Calc 54 Estimated GFR > 60 Glucose 209 H POC Capillary Glucose 214 H Calcium 8.3 L Magnesium 1.7 Iron TIBC % Saturation Ferritin Troponin I 07/18/24 07/18/24 07/18/24 06:38 07:52 11:25 WBC RBC Hgb Hct MCV MCH MCHC RDW Plt Count MPV Immature Gran % (Auto) Neut % (Auto) Lymph % (Auto) [place] % (Auto) Eos % (Auto) Baso % (Auto) Lymph # (Auto) [place] # (Auto) Eos # (Auto) Baso # (Auto) Abs Immat Gran (auto) Absolute Neuts (auto) Absolute Nucleated RBC Nucleated RBC % PT INR APTT Activ Coag Time Kaolin Sodium Potassium Chloride Carbon Dioxide Anion Gap BUN Creatinine Estim Creat Clear Calc Estimated GFR Glucose POC Capillary Glucose 209 H 182 H Calcium Magnesium Cancelled Iron 58 TIBC 231 L % Saturation 25 Ferritin 126.00 Troponin I 07/18/24 14:38 WBC RBC Hgb Hct MCV MCH MCHC RDW Plt Count MPV Immature Gran % (Auto) Neut % (Auto) Lymph % (Auto) [place] % (Auto) Eos % (Auto) Baso % (Auto) Lymph # (Auto) [place] # (Auto) Eos # (Auto) Baso # (Auto) Abs Immat Gran (auto) Absolute Neuts (auto) Absolute Nucleated RBC Nucleated RBC % PT INR APTT Activ Coag Time Kaolin 302 H Sodium Potassium Chloride Carbon Dioxide Anion Gap BUN Creatinine Estim Creat Clear Calc Estimated GFR Glucose POC Capillary Glucose Calcium Magnesium Iron TIBC % Saturation Ferritin Troponin I Quality VTE Prophylaxis VTE prophylaxis: pharmacologic ordered (currently on a heparin drip)
[2024-07-18 15:25] LABS: Activated Clotting Time 302 SEC (74-137)
--- NOTE | 2024-07-18 16:00 | P.PCNCC_ITS ---
Cardiac Cath Procedure Note Date of procedure:: 07/18/24 Performing physician:: CATHETERIZATION LABORATORY REPORT Procedure Date: 07/18/2024 Referring Physician: Dr. Montesinos Anesthesia: 2mg Versed and 100mcg Fentanyl were ordered and given in my presence at 1353, procedure ended at 1513. Supervision of nurse, Philip Vivas monitored moderate sedation with 2mg Versed and 100mcg Fentanyl was provided for 80 minutes. Pre-op Diagnosis: NSTEMI Post-op Diagnosis: NSTEMI Procedure(s): Left heart catheterization with coronary angiography Access Site: Left common femoral artery Brief History and Clinical Indications: 74-year-old man with recent history of ST-elevation MO status post PCI to the LAD with residual obstructive disease in left circumflex/OM system who returns with chest discomfort with mild elevation in setting troponin biomarkers whose clinical presentation is consistent non ST elevation MO is here for staged PCI to left circumflex/OM system All risks, benefits and alternatives to left heart catheterization with or w ithout percutaneous coronary intervention was discussed at length with the patient. Risk of complications including but not limited to bleeding, infection, arrhythmia, stroke, worsening kidney function, blood loss, groin hematoma, limb loss, emergency coronary artery bypass grafting, and even were discussed with the patient and all questions were answered. The patient understood and wished to proceed. Time out called, patient name, date of , medical record number, allergies, procedure performed, identify Trust Advisor, patient and staff member concurred with accurate data, procedure carried on. Findings: LEFT HEART CATHETERIZATION FINDINGS: 1. Left main: The left main coronary artery is extremely short and is widely patent without any significant obstructive disease. 2. Left anterior descending: The LAD gives off 5 diagonal branches. The LAD at its ostium has 20-30% stenosis. There is a patent stent in its mid-body. The 3rd diagonal branch has ostial 40-60% stenosis. The remainder of the LAD has diffuse 10-20% stenosis and tapers into a small size vessel before reaching the apex. 3. Left circumflex: The left circumflex artery gives off 2 OM branches. OM1 is a 1-1.5 mm vessel that has 70% ostial to proximal stenosis. The proximal left circumflex has 80-90% stenosis followed by an area of 20-30% stenosis and right before it bifurcates into the OM2 and true left circumflex there is a 60% to 70% stenosis and there is a 70% stenosis going into the OM2 vessel. The true left circumflex has mild luminal irregularities. 4. Right coronary artery: The RCA is a large dominant system with diffuse 10-20 % stenosis in its proximal body followed by 50-60% stenosis in its mid to distal body prior to giving off a right PDA and right posterior lateral branch. 5. Opening AO pressure 164/96 and closing AO pressure 155/86 Description of Procedure: Informed consent signed and placed in the chart. Patient transferred to cardiac cath lab radiology technologist room. Prepped and draped in usual sterile fashion. 2% lidocaine in right groin area. Micropuncture needle used to access left common femoral artery with Seldinger technique under fluoroscopic and ultrasound guidance. J wire advanced, micropuncture cannula placed. JR4 diagnostic catheter engaged Right Coronary Artery. Multiple orthogonal angiogram obtained and reviewed Procedure Description for PCI: A 6F CLS 3.5 guide catheter was used to engage the LMCA. Heparin was used for anticoagulation (ACT maintained above 250) Patient loaded with heparin at 70 units/kg. 0.014 Runthrough coronary wire was passed in to the OM2 vessel. The lesions were pre-dilated with a 2.0 x 15 mm balloon inflated to high CASSY. A 2.5 x 22mm Orsiro ROSCOE was successfully deployed into left circumflex into the OM2 vessel. The proximal left circumflex lesion was then pre-dilated again with the stent balloon. We then attempted to deliver a 3.0 x 26mm Orsiro ROSCOE to cover the proximal lesion and overlap with the previously placed stent; however, the stent was unable to traverse pass the previously placed stent. A 0.014 BMW wire was used as a deidre wire and the stent was still unable to pass and thus the proximal portion of the stent was further post dilated with a 3.0 x 8mm NC and the proximal lesion was once again also pre-dilated with the 3.0 x 8mm NC balloon. We then opened a new stent, a 3.0 x 22mm Orsiro ROSCOE and attempted delivery without success. At this time, we removed the BMW wire and we used a Guideliner and inched the Guideliner into the proximal left circumflex over a balloon. We were then able to deliver a 3.0 x 13mm Orsiro ROSCOE to the proximal left circumflex to overlap the previously placed stent and partially ocvered the proximal lesion. We then used a 3.5 x 9mm Orsiro ROSCOE to cover the ostial to proximal left circumflex. We noted the OM1 vessel having worsening stenosis and is now 90-95% stenosed at its ostium to proximal body. We tried to wire the branch with a BMW wire without success. We then brought in a IVUS catheter which demonstrated acceptable stent expansion and apposition with proximal stent struts landing right is the ostium of the left circumflex and thus we did not pursue any further post-dilation. Follow-up angiograms showed an excellent result. Coronary wire and guide-catheter were removed under fluoroscopy. Final angiograms demonstrated excellent angiographic results. Pre-procedure - ROXANA 3 flow. Post-procedure - ROXANA 3 flow. No angiographic complications identified. Assessment: Successful IVUS guided PCI from the OM2 vessel to ostial LCx vessel with overlapping 2.5 x 22mm Orsiro ROSCOE, 3.0 x 13mm Orsiro ROSCOE, and 3.5 x 9mm Orsiro ROSCOE from distal to ostium with excellent angiographic results. Post Operative Condition: Stable No significant blood loss Disposition: Floor Plan: The patient will be monitored in the recovery area. DAPT for 1 year followed by ASA indefinitely. Continue aggressive medical therapy and risk factor modification. Gerhard Ratliff Interventional Cardiology
--- NOTE | 2024-07-18 16:06 | SUR.PHASEII ---
1500 ptt not needed per Kathy Montano [employer] due to Heparin drip off since 1340. Leg immobilizer applied to L leg.
[2024-07-18] MEDS: SODIUM CHLORIDE 0.9% IV 1,000 ML 125 ML IV CONT (16:28)
[2024-07-18 17:20] LABS: Glucose Point of Care 191 mg/dl (65-105)
[2024-07-18] MEDS: ACETAMINOPHEN 325 MG TABLET 650 MG PO (21:04)
[2024-07-18] MEDS: INSULIN ASPART (*BKC) 100 UNITS/ML SUB-Q (21:22)
[2024-07-18 23:29] LABS: Glucose Point of Care 342 mg/dl (65-105)
[2024-07-19] VITALS: BP 138/67; PULSE 66; PULSE 75; RESP 18; TEMP 36.3
[2024-07-19 02:00] VITALS: PULSE 58
[2024-07-19 04:00] VITALS: PULSE 57
[2024-07-19 05:44] LABS: Basophils Percent Auto 0.7 % (0.2-1.2); Eosinophils Absolute Auto 0.2 K/mm3 (0-0.3); Eosinophils Percent Auto 3.1 % (0-4.4); Hematocrit 34.2 % (42.0-52.0); Hemoglobin 10.9 g/dL (14.0-18.0); Immature Granulocyte Absolute 0.01 K/mm3 (0.00-0.031); Immature Granulocyte Percent A 0.2 % (0-0.5); Lymphocytes Absolute Auto 1.91 K/mm3 (0.9-3.2); Lymphocytes Percent Auto 31.5 % (18.3-44.2); Mean Corpuscular HGB Conc 31.9 g/dl (32-36); Mean Corpuscular Volume 87.9 fl (80-100); Mean Platelet Volume 11.2 fl (7.4-10.4); Monocytes Absolute Auto 0.7 K/mm3 (0.1-0.6); Neutrophils Absolute Auto 3.2 K/mm3 (1.3-6.7); Neutrophils Percent Auto 52.5 % (45.5-73.1); Platelet Count Result 218 k/mm3 (150-375); Red Blood Count 3.89 M/mm3 (4.6-6.20); White Blood Count 6.1 K/mm3 (4.5-10.0)
[2024-07-19 05:58] LABS: Alanine Aminotransferase 16 U/L (6-50); Albumin Level 2.9 g/dL (3.5-5.1); Alkaline Phosphatase 76 U/L (38-126); Anion Gap 6 mmol/L (4-12); Aspartate Amino Transferase 28 U/L (17-59); Bilirubin,Total 0.6 mg/dL (0.2-1.3); Blood Urea Nitrogen 13 mg/dL (9-20); Calcium 8.2 mg/dL (8.4-10.2); Carbon Dioxide 28 mmol/L (22-30); Chloride 104 mmol/L (98-107); Estimated CRCL calculation 62 ml/min; Estimated Glomerular Filt Rate > 60; Glucose 164 mg/dL (65-110); Sodium 138 mmol/L (137-145)
[2024-07-19 06:00] LABS: Lactic Acid Reflex 1.3 mmol/L (0.7-2.0)
[2024-07-19 07:30] VITALS: BP 125/67; PULSE 69; RESP 14; TEMP 36.9; O2SAT 100
[2024-07-19 07:44] LABS: Glucose Point of Care 181 mg/dl (65-105)
[2024-07-19 08:00] VITALS: PULSE 76
[2024-07-19] MEDS: TAMSULOSIN HCL 0.4 MG CAPSULE PO (08:42)
[2024-07-19] MEDS: ATORVASTATIN 40 MG TABLET 80 MG PO (08:42)
[2024-07-19] MEDS: ASPIRIN 81 MG ENTERIC TABLET PO (08:42)
[2024-07-19] MEDS: INSULIN GLARGINE (*BKC) 100 UNITS/ML 18 UNITS SUB-Q (08:43)
[2024-07-19] MEDS: LACTULOSE 20 GM/30 ML UDC PO ×2 (08:43→13:07)
[2024-07-19] MEDS: METOPROLOL SUCCINATE EXT REL 50 MG TABCR PO (08:43)
[2024-07-19] MEDS: guaiFENesin 12 HR 600 MG TABCR PO (08:43)
[2024-07-19] MEDS: TICAGRELOR 90 MG TABLET PO (08:43)
[2024-07-19] MEDS: LOSARTAN POTASSIUM 25 MG TABLET PO (08:43)
--- NOTE | 2024-07-19 10:15 | P.CDI_ITS ---
CDI Query Clarification Request Please specify type and acuity of heart failure if known. Risk Factors:Plan 1. NSTEMI 2. Coronary artery disease. LAD STEMI in May 2024. 3. Ischemic cardiomyopathy with LVEF 40-45% 4. Hypertension 5. Hyperlipidemia 6. Type 2 diabetes mellitus HX CHF Clinical Impression: Non-ST elevated myocardial infarction, Heart failure Clinical Indicators: BNP 07/17 4480 Treatment: IV lasix x1, start home medication * Acute * Chronic * Acute on Chronic * Unknown * Systolic * Diastolic * Combined Systolic and Diastolic * Unknown <Fernanda Melendez RN - Last Filed: 07/19/24 10:18> Clarified Diagnosis Clarified Diagnosis: Chronic * Systolic <Ian Montesinos MD - Last Filed: 07/19/24 11:39>
--- NOTE | 2024-07-19 10:59 | P.PNCA_ITS ---
Progress Note: A&P Assessment and Plan (1) Non-ST elevated myocardial infarction: Code(s): I21.4 - Non-ST elevation (NSTEMI) myocardial infarction Status: Acute Plan 1. NSTEMI 2. Coronary artery disease. LAD STEMI in May 2024. 3. Ischemic cardiomyopathy with LVEF 40-45% 4. Hypertension 5. Hyperlipidemia 6. Type 2 diabetes mellitus PLAN: -S/p successful IVUS guided PCI from the OM2 vessel to ostial LCx vessel with overlapping 2.5 x 22mm Orsiro ROSCOE, 3.0 x 13mm Orsiro ROSCOE, and 3.5 x 9mm Orsiro ROSCOE from distal to ostium with excellent angiographic results. -Continue ASA 81mg once daily indefinitely -Continue Brilinta 90mg BID for at least 1 year. -Continue high intensity statin. -Continue Toprol. -Started on Losartan for cardiomyopathy, continue. Okay to discharge home from a cardiac standpoint. Has an appointment with Dr. Link in the office next month. Subjective Date/time seen: 07/19/24 10:59 Interval history: Reason for visit: NSTEMI HPI: Albaro is a 74 year old male with LAD STEMI in May 2024 who is well known to us. Scheduled to have staged PCI with Dr. Link at [facility] on 07/23. Patient speaks very little [place], therefore, grandson interpreted for us as he was at bedside. Had severe substernal chest pain that awoke him and persisted until he came to ER today. Improved with NTG. He is currently resting comfortably. Was recently here at [place] [facility] on 07/13 for anxiety, troponins were negative at that time. Now has troponin elevation of 0.057 followed by 0.084. EKG shows sinus rhythm, inverted T-waves in the anterolateral leads, which are similar to previous EKG and likely from his LAD infarction. Date of service 07/18: Still having some left-sided chest discomfort. Date of service 07/19: States he is feeling well. No more chest pain. Review of Systems Cardiovascular: Cardiovascular: Reports as per HPI Exam Const: General: comfortable and no acute distress Eyes: General: appearance normal, both eyes and all related structures Sclera: sclerae normal Cardio: Rate: regular rate Rhythm: regular rhythm Neuro: Speech: normal speech Extrem: Other: Left groin access site with some bruising, however, no tenderness, no hematoma, no bleeding. Psych: Affect: normal affect Objective Data Vital Signs Vital Signs: Vital Signs - 24 hr 07/18/24 12:00 07/18/24 12:20 07/18/24 15:30 Temperature 36.5 C Pulse Rate 65 69 Pulse Rate [Bilateral Pedal (Dorsalis Pedis) Doppler] 106 H Respiratory Rate 18 Blood Pressure 150/69 H Pulse Oximetry 100 Oxygen Delivery 07/18/24 15:30 07/18/24 15:45 07/18/24 15:45 Temperature Pulse Rate 106 H 109 H Pulse Rate [Bilateral Pedal (Dorsalis Pedis) Doppler] 109 H Respiratory Rate 18 20 Blood Pressure 138/95 H 148/72 H Pulse Oximetry 100 100 Oxygen Delivery Room Air Room Air 07/18/24 16:00 07/18/24 16:00 07/18/24 16:15 Temperature Pulse Rate 99 Pulse Rate [Bilateral Pedal (Dorsalis Pedis) Doppler] 99 98 Respiratory Rate 17 Blood Pressure 141/74 H Pulse Oximetry 98 Oxygen Delivery Room Air 07/18/24 16:15 07/18/24 16:35 07/18/24 16:45 Temperature 37.1 C Pulse Rate 98 91 90 Pulse Rate [Bilateral Pedal (Dorsalis Pedis) Doppler] Respiratory Rate 17 16 Blood Pressure 141/74 H 148/77 H Pulse Oximetry 100 100 Oxygen Delivery Room Air 07/18/24 17:11 07/18/24 17:30 07/18/24 18:00 Temperature 37.3 C 36.6 C Pulse Rate 91 89 88 Pulse Rate [Bilateral Pedal (Dorsalis Pedis) Doppler] Respiratory Rate 18 18 Blood Pressure 142/82 H 140/73 Pulse Oximetry 99 100 Oxygen Delivery 07/18/24 18:15 07/18/24 18:56 07/18/24 19:00 Temperature 36.6 C 36.6 C 36.8 C Pulse Rate 89 89 88 Pulse Rate [Bilateral Pedal (Dorsalis Pedis) Doppler] Respiratory Rate 18 18 16 Blood Pressure 140/73 140/73 130/76 Pulse Oximetry 100 100 98 Oxygen Delivery 07/18/24 19:56 07/18/24 20:00 07/18/24 20:00 Temperature 36.6 C 37.0 C Pulse Rate 89 78 82 Pulse Rate [Bilateral Pedal (Dorsalis Pedis) Doppler] Respiratory Rate 18 18 Blood Pressure 140/73 134/75 Pulse Oximetry 100 98 Oxygen Delivery 07/18/24 20:56 07/18/24 21:00 07/18/24 22:00 Temperature 36.6 C 36.8 C 36.4 C L Pulse Rate 89 76 86 Pulse Rate [Bilateral Pedal (Dorsalis Pedis) Doppler] Respiratory Rate 18 18 18 Blood Pressure 140/73 137/67 114/73 Pulse Oximetry 100 98 100 Oxygen Delivery 07/18/24 22:00 07/18/24 23:00 07/19/24 00:00 Temperature 36.5 C 36.3 C L Pulse Rate 88 80 75 Pulse Rate [Bilateral Pedal (Dorsalis Pedis) Doppler] Respiratory Rate 18 18 Blood Pressure 105/68 138/67 Pulse Oximetry 100 Oxygen Delivery 07/19/24 00:00 07/19/24 00:00 07/19/24 02:00 Temperature Pulse Rate 66 58 L Pulse Rate [Bilateral Pedal (Dorsalis Pedis) Doppler] Respiratory Rate Blood Pressure Pulse Oximetry Oxygen Delivery Room Air 07/19/24 04:00 07/19/24 04:00 07/19/24 07:30 Temperature 36.9 C Pulse Rate 57 L 69 Pulse Rate [Bilateral Pedal (Dorsalis Pedis) Doppler] Respiratory Rate 14 Blood Pressure 125/67 Pulse Oximetry 100 Oxygen Delivery Room Air Intake/Output Intake/Output: Intake & Output 07/16/24 07/17/24 07/18/24 07/19/24 23:59 23:59 23:59 23:59 Intake Total 59.9 431.0 240 Output Total 700 Balance 59.9 -269.0 240 Meds/Results Medications: Active Medications Generic Name Dose Route Start Last Admin Trade Name Freq PRN Reason Stop Dose Admin Acetaminophen 650 mg 07/17/24 10:20 07/18/24 21:04 Acetaminophen 325 Mg Tablet PO 650 mg Q4H PRN Administration Mild Pain (1-3) or Fever Hydrocodone Bitart/Acetaminophen 1 tab 07/17/24 10:20 Hydrocodone/Acetaminophen (*Crx) 5-325 Mg Tablet PO Q4H PRN Pain Rated 4-6 Aspirin 81 mg 07/18/24 09:00 07/19/24 08:42 Aspirin 81 Mg Enteric Tablet PO 81 mg QAM SVETLANA Administration Atorvastatin Calcium 80 mg 07/18/24 09:00 07/19/24 08:42 Atorvastatin 40 Mg Tablet PO 80 mg DAILY SVETLANA Administration Dextrose 12.5 gm 07/17/24 13:20 Dextrose 50% 25 Gm/50 Ml Syringe IV PUSH PRN PRN Hypoglycemia Protocol Glucagon 1 mg 07/17/24 13:20 Glucagon For Inj 1 Mg Vial IM PRN PRN Hypoglycemia Protocol Glucose 15 gm 07/17/24 13:20 Glucose Oral Gel 15 Gm Of Glucse In 37.5 Gm Tube PO PRN PRN Hypoglycemia Protocol Guaifenesin 600 mg 07/17/24 21:00 07/19/24 08:43 Guaifenesin 12 Hr 600 Mg Tabcr PO 600 mg Q12HR SVETLANA Administration Dextrose 1,000 mls @ 100 mls/hr 07/17/24 13:20 Dextrose 5% 1,000 Ml IVPB PRN PRN Hypoglycemia Protocol Insulin Aspart 3 - 6 units 07/17/24 17:00 07/19/24 08:39 Insulin Aspart (*Bkc) 100 Units/Ml SUB-Q Not Given TIDWM SVETLANA Protocol Insulin Aspart 1 - 3 units 07/17/24 21:00 07/18/24 21:22 Insulin Aspart (*Bkc) 100 Units/Ml SUB-Q 2 units HS SVETLANA Administration Protocol Insulin Glargine 18 units 07/18/24 09:00 07/19/24 08:43 Insulin Glargine (*Bkc) 100 Units/Ml SUB-Q 18 units DAILY SVETLANA Administration Lactulose 20 gm 07/18/24 09:00 07/19/24 08:43 Lactulose 20 Gm/30 Ml Udc PO 20 gm TID SVETLANA Administration Losartan Potassium 25 mg 07/19/24 09:00 07/19/24 08:43 Losartan Potassium 25 Mg Tablet PO 25 mg DAILY SVETLANA Administration Metoprolol Succinate 50 mg 07/18/24 09:00 07/19/24 08:43 Metoprolol Succinate Ext Rel 50 Mg Tabcr PO 50 mg DAILY SVETLANA Administration Ondansetron HCl 4 mg 07/17/24 10:20 Ondansetron Inj 4 Mg/2 Ml Vial IV PUSH Q4H PRN Nausea Tamsulosin HCl 0.4 mg 07/18/24 09:00 07/19/24 08:42 Tamsulosin Hcl 0.4 Mg Capsule PO 0.4 mg QAM SVETLANA Administration Ticagrelor 90 mg 07/18/24 09:00 07/19/24 08:43 Ticagrelor 90 Mg Tablet PO 90 mg Q12HR SVETLANA Administration Radiology Results: ITS Impressions Chest X-Ray 07/17/24 09:36 IMPRESSION: 1: NO ACUTE CARDIOPULMONARY DISEASE. 2: Left acromion fracture with nonunion, not visualized on prior examination. Scapula X-Ray 07/17/24 19:48 IMPRESSION: 1. 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 2. Polyarticular osteoarthritis. Shoulder X-Ray 07/18/24 09:13 IMPRESSION: Mild right acromioclavicular osteoarthritis. No acute osseous abnormality. Labs Labs: Laboratory Results - last 24 hr 07/18/24 07/18/24 07/18/24 06:38 11:25 14:38 WBC RBC Hgb Hct MCV MCH MCHC RDW Plt Count MPV Immature Gran % (Auto) Neut % (Auto) Lymph % (Auto) [place] % (Auto) Eos % (Auto) Baso % (Auto) Lymph # (Auto) [place] # (Auto) Eos # (Auto) Baso # (Auto) Abs Immat Gran (auto) Absolute Neuts (auto) Absolute Nucleated RBC Nucleated RBC % Activ Coag Time Kaolin 302 H Sodium Potassium Chloride Carbon Dioxide Anion Gap BUN Creatinine Estim Creat Clear Calc Estimated GFR Glucose POC Capillary Glucose 182 H Lactic Acid Calcium % Saturation 25 Total Bilirubin AST ALT Alkaline Phosphatase Total Protein Albumin 07/18/24 07/18/24 07/18/24 15:18 17:06 21:18 WBC RBC Hgb Hct MCV MCH MCHC RDW Plt Count MPV Immature Gran % (Auto) Neut % (Auto) Lymph % (Auto) [place] % (Auto) Eos % (Auto) Baso % (Auto) Lymph # (Auto) [place] # (Auto) Eos # (Auto) Baso # (Auto) Abs Immat Gran (auto) Absolute Neuts (auto) Absolute Nucleated RBC Nucleated RBC % Activ Coag Time Kaolin 302 H Sodium Potassium Chloride Carbon Dioxide Anion Gap BUN Creatinine Estim Creat Clear Calc Estimated GFR Glucose POC Capillary Glucose 191 H 342 H Lactic Acid Calcium % Saturation Total Bilirubin AST ALT Alkaline Phosphatase Total Protein Albumin 07/19/24 07/19/24 05:07 07:40 WBC 6.1 RBC 3.89 L Hgb 10.9 L Hct 34.2 L MCV 87.9 MCH 28.0 MCHC 31.9 L RDW 15.0 H Plt Count 218 MPV 11.2 H Immature Gran % (Auto) 0.2 Neut % (Auto) 52.5 Lymph % (Auto) 31.5 [place] % (Auto) 12.0 H Eos % (Auto) 3.1 Baso % (Auto) 0.7 Lymph # (Auto) 1.91 [place] # (Auto) 0.7 H Eos # (Auto) 0.2 Baso # (Auto) 0.0 Abs Immat Gran (auto) 0.01 Absolute Neuts (auto) 3.2 Absolute Nucleated RBC 0.000 Nucleated RBC % 0.0 Activ Coag Time Kaolin Sodium 138 Potassium 3.0 L Chloride 104 Carbon Dioxide 28 Anion Gap 6 BUN 13 Creatinine 0.84 Estim Creat Clear Calc 62 Estimated GFR > 60 Glucose 164 H POC Capillary Glucose 181 H Lactic Acid 1.3 Calcium 8.2 L % Saturation Total Bilirubin 0.6 AST 28 ALT 16 Alkaline Phosphatase 76 Total Protein 6.0 L Albumin 2.9 L
[2024-07-19 11:47] VITALS: BP 145/65; PULSE 68; RESP 16; TEMP 36.5; O2SAT 100
--- NOTE | 2024-07-19 12:08 | P.DS_ITS ---
DS: Admitting Diagnosis Discharge Date 07/19/2024 Admitting Diagnosis Chest pain. DS: Discharge Diagnosis Discharge Diagnosis (1) Chest pain: Code(s): R07.9 - Chest pain, unspecified Status: Acute DS: Summary Hospital Course Hospital Course: This is a 74-year-old male with coronary artery disease and history of STEMI on 06/22/2024 status post PCI to the LAD, ischemic cardiomyopathy with an EF of 40 to 45%, hypertension, hyperlipidemia, type 2 diabetes mellitus, and benign prostatic hyperplasia who presented to the emergency department via EMS from home for evaluation of chest pain. A video hourly sign language interpreter was used to obtain the following history as the patient speaks primarily [place]. At about 05:30 he developed pressure in the center of his chest associated with mild shortness of breath. The pain did not radiate and he denies aggravating factors. Nitroglycerin administered per EMS provided some improvement. He denies syncope, near syncope, sweats, pleuritic pain, nausea, vomiting, abdominal pain, calf pain, and edema. Of note, he was seen in the ED 4 days ago with complaints of anxiety and intermittent shortness of breath and chest discomfort. Symptoms improved with lorazepam and his workup was reassuring and he was discharged home. Before he was discharged he reportedly had a fall between the gurney and the wall and he has complained of right shoulder pain since that time. He did not say anything to anyone and he denies sustaining any other injuries in the fall. He states the fall was purely mechanical. In the ED: Vital signs were stable on arrival. Labs are significant for hemoglobin of 11.1, sodium 136, potassium 3.2, glucose 294, proBNP 4480, troponin 0.057. Chest x-ray showed no acute cardiopulmonary disease but did note a left acromion fracture with non use in which was not visualized on prior examination. This is not the shoulder that he complains of pain and however. He has been started on a heparin drip and is being admitted in this setting for close monitoring and Cardiology consultation. patient had a residual LCX disease dfrom prior STEMi last month were the LAD was stented, thus cardiology evaluated and decided to take patient to medical lab technician for LCX intervention. Procedure was successful and Patient tolerated procedure well. Discussed with cardiology and they are okay with discharge on current regimen of Aspirin, Brilintal, BB and statin will follow up outpatient workup on admission showed chronic left acromion fracture and orthopedic was consulted discharged on PRN pain control and will follow up with orhtho as instructed Discharged on suplemental Po KCl for 7 days. Continue other home meds F/u with PCP in 3-5 days F/u with cards as instructed Time Spent with Patient Time attestation: Total time spent providing and/or coordinating discharge services: DS: Data Data Completed and Pending Labs on day of discharge: Labs from last 24 hours 07/19/24 07/19/24 07/18/24 07:40 05:07 21:18 WBC 6.1 RBC 3.89 L Hgb 10.9 L Hct 34.2 L MCV 87.9 MCH 28.0 MCHC 31.9 L RDW 15.0 H Plt Count 218 MPV 11.2 H Immature Gran % (Auto) 0.2 Neut % (Auto) 52.5 Lymph % (Auto) 31.5 [place] % (Auto) 12.0 H Eos % (Auto) 3.1 Baso % (Auto) 0.7 Lymph # (Auto) 1.91 [place] # (Auto) 0.7 H Eos # (Auto) 0.2 Baso # (Auto) 0.0 Abs Immat Gran (auto) 0.01 Absolute Neuts (auto) 3.2 Absolute Nucleated RBC 0.000 Nucleated RBC % 0.0 Activ Coag Time Kaolin Sodium 138 Potassium 3.0 L Chloride 104 Carbon Dioxide 28 Anion Gap 6 BUN 13 Creatinine 0.84 Estim Creat Clear Calc 62 Estimated GFR > 60 Glucose 164 H POC Capillary Glucose 181 H 342 H Lactic Acid 1.3 Calcium 8.2 L % Saturation Total Bilirubin 0.6 AST 28 ALT 16 Alkaline Phosphatase 76 Total Protein 6.0 L Albumin 2.9 L 07/18/24 07/18/24 07/18/24 17:06 15:18 14:38 WBC RBC Hgb Hct MCV MCH MCHC RDW Plt Count MPV Immature Gran % (Auto) Neut % (Auto) Lymph % (Auto) [place] % (Auto) Eos % (Auto) Baso % (Auto) Lymph # (Auto) [place] # (Auto) Eos # (Auto) Baso # (Auto) Abs Immat Gran (auto) Absolute Neuts (auto) Absolute Nucleated RBC Nucleated RBC % Activ Coag Time Kaolin 302 H 302 H Sodium Potassium Chloride Carbon Dioxide Anion Gap BUN Creatinine Estim Creat Clear Calc Estimated GFR Glucose POC Capillary Glucose 191 H Lactic Acid Calcium % Saturation Total Bilirubin AST ALT Alkaline Phosphatase Total Protein Albumin 07/18/24 07/18/24 11:25 06:38 WBC RBC Hgb Hct MCV MCH MCHC RDW Plt Count MPV Immature Gran % (Auto) Neut % (Auto) Lymph % (Auto) [place] % (Auto) Eos % (Auto) Baso % (Auto) Lymph # (Auto) [place] # (Auto) Eos # (Auto) Baso # (Auto) Abs Immat Gran (auto) Absolute Neuts (auto) Absolute Nucleated RBC Nucleated RBC % Activ Coag Time Kaolin Sodium Potassium Chloride Carbon Dioxide Anion Gap BUN Creatinine Estim Creat Clear Calc Estimated GFR Glucose POC Capillary Glucose 182 H Lactic Acid Calcium % Saturation 25 Total Bilirubin AST ALT Alkaline Phosphatase Total Protein Albumin Discharge Plan Discharge Attending physician on discharge: Ian Montesinos Consulting providers: Allegra Shin; Glen Lau Discharging Clinician: Ian Montesinos Anticipated Discharge Date/Time: 07/19/24 11:56 Patient Disposition: Home, Self-Care Activity: as tolerated Diet: as tolerated and heart healthy Discharge Instructions: F/u with orthopedics as instructed. . Patient Instructions: Antibiotic Form Patient Language: Hungarian Stand Alone Forms: General Discharge Information Follow-up/Referrals: Allegra hSin MD [Physician] - (F/u with cardiology as instructed ) Nikolas,Donavon Chaidez MD [Primary Care Provider] - (F/u with PCP in 3-5 days ) Glen Lau MD [Physician] - (F/u with orthopedics as instructed ) Discharge Medications: New hydrocodone-acetaminophen 5-325 mg Tablet 1 tablet PO Q4H PRN (Reason: Pain Rated 4-6) 5 Days Qty: 7 0RF potassium chloride [Klor-Con M20] 20 mEq tablet,ER particles/crystals 20 meq PO BID 5 Days Qty: 10 0RF Continued lactulose 10 gram/15 mL solution 30 ml PO TID Brilinta 90 mg Tablet 90 mg PO Q12HR Qty: 90 3RF aspirin 81 mg Tablet,Delayed Release (Dr/Ec) 81 mg PO QAM Qty: 90 3RF atorvastatin [Lipitor] 80 mg tablet 80 mg PO DAILY Qty: 90 3RF losartan 25 mg Tablet 25 mg PO DAILY Qty: 90 3RF metoprolol succinate [Toprol XL] 50 mg tablet extended release 24 hr 50 mg PO DAILY Qty: 90 3RF tamsulosin 0.4 mg Capsule 0.4 mg PO QAM Qty: 30 0RF guaifenesin [Mucus Relief ER] 600 mg Tablet Extended Release 12hr 600 mg PO Q12HR Qty: 30 0RF insulin glargine [Lantus U-100 Insulin] 100 unit/mL solution 18 unit SUBCUT DAILY insulin lispro 100 unit/mL insulin pen 1 sliding scale dose SUBCUT ACHS lorazepam [Ativan] 0.5 mg tablet 0.5 mg PO TID PRN (Reason: anxiety) Qty: 14 0RF amoxicillin 500 mg capsule 500 mg PO TID Date of admission: 07/18/24 16:11 Primary Care Provider: Nikolas,Donavon Chaidez Admitting Provider: Saeid Bryant Attending physician on admission: Saeid Bryant Condition: Stable
[2024-07-19 12:14] LABS: Glucose Point of Care 249 mg/dl (65-105)
[2024-07-19] MEDS: INSULIN ASPART (*BKC) 100 UNITS/ML SUB-Q (13:07)
--- NOTE | 2024-07-19 16:28 | P.CONOP_ITS ---
Assessment and Plan Assessment and plan (1) Closed fracture of distal clavicle: Qualifiers: Encounter type: subsequent encounter Fracture alignment: displaced L aterality: left Fracture healing: with malunion Qualified Code(s): S42.032P - Displaced fracture of lateral end of left clavicle, subsequent encounter for fracture with malunion Code(s): S42.033A - Displaced fracture of lateral end of unspecified clavicle, initial encounter for closed fracture Status: Acute Assessment and Plan: Incidental finding on chest xray. Reviewed all shoulder and scapular radiographs. 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 He has no pain. No acute treatment is necessary. (2) Right rotator cuff tendonitis: Code(s): M75.81 - Other shoulder lesions, right shoulder Status: Acute Assessment and Plan: Right shoulder with rotator cuff tendonitis. Worsening pain since his fall a week ago. He had some pain prior to the fall. Patient may benefit from outpatient treatment including formal physical therapy and injections in the future if pain persists. Reviewed right shoulder radiograph. Slight elevation of the humeral head can represent rotator cuff tearing. May follow up as needed in office as an outpatient. Thank you for the consultation. Dr. 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 History of Present Illness HPI Consult date: 07/19/24 Chief complaint: nstemi, chf Narrative: Consult on patient was requested due to a finding of a non union distal clavicle fracture on the left on a chest xray. Patients family member was in the room and was used to interpret. Patient does not speak much [place]ian. Patient complains of no pain on the left shoulder. He does not remember having any injury. No complaints on the left side. He does complain of right shoulder pain. Patient apparently fell while in the ER last week into an IV pole. States he has had worsening right shoulder pain since that. He did have pain previously. He is able to use his arm but he has pain with overhead motions. No numbness or tingling. No new decreased range of motion or strength. No dislocation or subluxation event when he fell. Underwent a cardiac cath yesterday. Review of Systems 2 Review of Systems: All systems reviewed & are unremarkable except as noted in HPI and below [facility] Past Medical History Medical History Benign prostate hyperplasia ST elevation myocardial infarction (STEMI) (06/22/24) status post PCI to the LAD Ischemic cardiomyopathy Type 2 diabetes mellitus Hypertension Compression fracture of L4 vertebra Hyperlipidemia Urinary retention Chronic indwelling Joiner catheter Coronary artery disease Surgical History Surgical History History of open reduction and internal fixation (ORIF) procedure repair of left 4 through 9 rib fractures History of percutaneous coronary intervention (05/2024) PCI to the LAD Family History Family History Mother Family history unknown Social History Social History (Updated 07/17/24 @ 21:15 by Chanda Reeves PA-C) Social History: Surrogate medical decision maker: Delta Anderson, daughter ([phone]). Code status: Full code. Smoking status: Never smoker Alcohol intake: never Substance use: never Substance use type: does not use Do You Feel Safe in your Home?: Yes Lack of Transportation: No Lack of Food: Never True Current Housing: I Have Housing Concerned About Future Housing: No Difficulty Paying Gas/Electric Bills: No Difficulty Paying for Meds: No Currently Unemployed: No Education: Master's Degree or Higher Difficulty w/ Childcare or Family Care: No Living arrangements: with family Spiritual care concerns: No Meds Home Medications and Allergies Home Medications ?Medication ?Instructions ?Recorded ?Confirmed ?Type insulin glargine 100 unit/mL 18 unit subcut DAILY DM 10/29/23 07/17/24 History subcutaneous solution (Lantus U-100 Insulin) insulin lispro 100 unit/mL 1 sliding scale dose subcut ACHS dm 10/29/23 07/17/24 History subcutaneous pen lactulose 10 gram/15 mL oral 30 ml PO TID 06/22/24 07/17/24 History solution ticagrelor 90 mg tablet (Brilinta) 90 mg PO Q12HR #90 tabs 06/24/24 07/17/24 Rx aspirin 81 mg tablet,delayed 81 mg PO QAM #90 tabs 06/25/24 07/17/24 Rx release atorvastatin 80 mg tablet (Lipitor) 80 mg PO DAILY #90 tabs 06/25/24 07/17/24 Rx losartan 25 mg tablet 25 mg PO DAILY #90 tabs 06/25/24 07/17/24 Rx metoprolol succinate 50 mg 50 mg PO DAILY #90 tabs 06/25/24 07/17/24 Rx tablet,extended release 24 hr (Toprol XL) guaifenesin 600 mg tablet, 600 mg PO Q12HR #30 tabs 07/01/24 07/17/24 Rx extended release 12 hr (Mucus Relief ER) tamsulosin 0.4 mg capsule 0.4 mg PO QAM #30 caps 07/01/24 07/17/24 Rx lorazepam 0.5 mg tablet (Ativan) 0.5 mg PO TID PRN anxiety #14 tabs 07/13/24 07/17/24 Rx amoxicillin 500 mg capsule 500 mg PO TID 07/17/24 07/17/24 History hydrocodone 5 mg-acetaminophen 325 1 tablet PO Q4H PRN Pain Rated 4-6 07/19/24 Rx mg tablet 5 days #7 tabs potassium chloride 20 mEq 20 meq PO BID 5 days #10 tabs 07/19/24 Rx tablet,extended release(part/cryst) (Klor-Con M) Allergies Allergy/AdvReac Type Severity Reaction Status Date / Time No Known Allergies Allergy Verified 07/17/24 12:49 Vital Signs Vital Signs - 24 hr 07/18/24 16:35 07/18/24 16:45 07/18/24 17:11 Temperature 98.7 F 99.1 F Pulse Rate 91 90 91 Respiratory Rate 16 18 Blood Pressure 148/77 H 142/82 H Pulse Oximetry 100 99 Oxygen Delivery 07/18/24 17:30 07/18/24 18:00 07/18/24 18:15 Temperature 97.8 F 97.8 F Pulse Rate 89 88 89 Respiratory Rate 18 18 Blood Pressure 140/73 140/73 Pulse Oximetry 100 100 Oxygen Delivery 07/18/24 18:56 07/18/24 19:00 07/18/24 19:56 Temperature 97.8 F 98.3 F 97.8 F Pulse Rate 89 88 89 Respiratory Rate 18 16 18 Blood Pressure 140/73 130/76 140/73 Pulse Oximetry 100 98 100 Oxygen Delivery 07/18/24 20:00 07/18/24 20:00 07/18/24 20:56 Temperature 98.6 F 97.8 F Pulse Rate 78 82 89 Respiratory Rate 18 18 Blood Pressure 134/75 140/73 Pulse Oximetry 98 100 Oxygen Delivery 07/18/24 21:00 07/18/24 22:00 07/18/24 22:00 Temperature 98.2 F 97.5 F L Pulse Rate 76 86 88 Respiratory Rate 18 18 Blood Pressure 137/67 114/73 Pulse Oximetry 98 100 Oxygen Delivery 07/18/24 23:00 07/19/24 00:00 07/19/24 00:00 Temperature 97.7 F 97.4 F L Pulse Rate 80 75 Respiratory Rate 18 18 Blood Pressure 105/68 138/67 Pulse Oximetry 100 Oxygen Delivery Room Air 07/19/24 00:00 07/19/24 02:00 07/19/24 04:00 Temperature Pulse Rate 66 58 L Respiratory Rate Blood Pressure Pulse Oximetry Oxygen Delivery Room Air 07/19/24 04:00 07/19/24 07:30 07/19/24 08:00 Temperature 98.5 F Pulse Rate 57 L 69 76 Respiratory Rate 14 Blood Pressure 125/67 Pulse Oximetry 100 Oxygen Delivery 07/19/24 08:00 07/19/24 11:47 07/19/24 12:00 Temperature 97.7 F Pulse Rate 68 Respiratory Rate 16 Blood Pressure 145/65 H Pulse Oximetry 100 Oxygen Delivery Room Air Room Air Exam 2 Narrative: EXAM Normal weight 74 y/o male. No distress. Normal gait. Alert and oriented. Bilateral shoulders show no deformity. Patient does have poor posture and slouches shoulders anteriorly. Painful active range of motion on the right shoulder only. No instability. Minimal crepitus. Positive Neer / Dawson impingement test on the right only. Rotator cuff tests positive on the right, negative on the left. Painful arc and supraspinatus test positive on the right. Cross-arm negative bilaterally. Tender at the anterolateral subacromial bursa on the right. No pain at either AC joints. Right Range of motion: Flexion 160 active (180 passive), external rotation 60 bilaterally, internal rotation lumbar spine. Slight decreased supraspinatus strength on the right. Normal on the left. Neurovascular status intact, radial pulse palpable and symmetric, light touch sensation intact. No edema, no skin rash or lesions. Results Labs 07/19/24 05:07 07/19/24 05:07 Labs: Abnormal lab results 07/18/24 07/18/24 07/19/24 Range/Units 17:06 21:18 05:07 RBC 3.89 L (4.6-6.20) M/mm3 Hgb 10.9 L (14.0-18.0) g/dL Hct 34.2 L (42.0-52.0) % MCHC 31.9 L (32-36) g/dl RDW 15.0 H (11.5-14.5) % MPV 11.2 H (7.4-10.4) fl [place] % (Auto) 12.0 H (2.6-8.5) % [place] # (Auto) 0.7 H (0.1-0.6) K/mm3 Potassium 3.0 L (3.4-5.0) mmol/L Glucose 164 H (65-110) mg/dL POC Capillary Glucose 191 H 342 H (65-105) mg/dl Calcium 8.2 L (8.4-10.2) mg/dL Total Protein 6.0 L (6.3-8.2) g/dL Albumin 2.9 L (3.5-5.1) g/dL 07/19/24 07/19/24 Range/Units 07:40 11:44 RBC (4.6-6.20) M/mm3 Hgb (14.0-18.0) g/dL Hct (42.0-52.0) % MCHC (32-36) g/dl RDW (11.5-14.5) % MPV (7.4-10.4) fl [place] % (Auto) (2.6-8.5) % [place] # (Auto) (0.1-0.6) K/mm3 Potassium (3.4-5.0) mmol/L Glucose (65-110) mg/dL POC Capillary Glucose 181 H 249 H (65-105) mg/dl Calcium (8.4-10.2) mg/dL Total Protein (6.3-8.2) g/dL Albumin (3.5-5.1) g/dL H & H 07/17/24 07/18/24 07/19/24 Range/Units 08:40 06:38 05:07 Hgb 11.1 L 10.7 L 10.9 L (14.0-18.0) g/dL Hct 35.4 L 33.1 L 34.2 L (42.0-52.0) % Coagulation 07/17/24 07/17/24 Range/Units 09:33 17:09 INR 1.0 1.1 All other labs normal.
== END 2024-07-19 15:00 | disposition home health service (06) | DRG 174 ==
LOC: ANHED 08:58 → ANHIMU 10:54 → ANHCPC 12:26 → ANHIMU 17:40
PROVIDERS: Internal Medicine; Physician Assistant; Admitting Provider Hospitalist; Emergency Provider Emergency Medicine; PCP Family Medicine Sports Medicine; Visit Provider Internal Medicine
PROC: 4A023N7 Measurement of Cardiac Sampling and Pressure, Left Heart, Percutaneous Approach (ICD-10-PCS; CPT 93452; principal; 2024-07-18 13:30)
PROC: 0270356 Dilation of Coronary Artery, One Artery, Bifurcation, with Two Drug-eluting Intraluminal Devices, Percutaneous Approach (ICD-10-PCS; CPT 92928; 2024-07-18 13:30)
PROC: 0270356 Dilation of Coronary Artery, One Artery, Bifurcation, with Two Drug-eluting Intraluminal Devices, Percutaneous Approach (ICD-10-PCS; 2024-07-18 13:30)
PROC: 0270356 Dilation of Coronary Artery, One Artery, Bifurcation, with Two Drug-eluting Intraluminal Devices, Percutaneous Approach (ICD-10-PCS; 2024-07-18 13:30)
DX: I21.4 Non-ST elevation (NSTEMI) myocardial infarction (principal); I11.0 Hypertensive heart disease with heart failure; I50.22 Chronic systolic (congestive) heart failure; I25.10 Atherosclerotic heart disease of native coronary artery without angina pectoris; I25.5 Ischemic cardiomyopathy; E78.5 Hyperlipidemia, unspecified; E11.9 Type 2 diabetes mellitus without complications; S42.122 Displaced fracture of acromial process, left shoulder; W18.30XD Fall on same level, unspecified, subsequent encounter; N40.0 Benign prostatic hyperplasia without lower urinary tract symptoms; E87.6 Hypokalemia; Z79.899 Other long term (current) drug therapy; Z79.4 Long term (current) use of insulin; Z95.5 Presence of coronary angioplasty implant and graft
CPT/HCPCS: 36415; 71046; 73010; 73030; 80048; 80053; 82728; 82948; 83540; 83550; 83605; 83735; 83880; 84484; 85025; 85610; 85730; 92978; 93005; 93458; 96374; 96375; 99291; A9270; C1725; C1753; C1760; C1769; C1874; C1887; C1894; C9600; G0269; G0378; G0379; J1644; J1815; J1940; J2003; J2250; J2305; J3010; J7030; J7040; L1830

== ENCOUNTER 2024-07-23 19:39 | Observation (INO) | payer OTHER, SELFPAY ==
--- NOTE | ~2024-07-23 | XR_ITS ---
EXAMINATION: XR chest 2V Exam Date/Time: 07/23/2024 20:45 BIG DATA ENGINEER HISTORY: chest pain Comparison: 07/17/2024. RESULT: Lines, tubes, and devices: Uncomplicated appearing screw and plate fixation of multiple right ribs. Coronary stenting. Lungs and pleura: Low volumes with crowding. Lungs otherwise clear. Cardiomediastinal silhouette: Stable. Other: No acute osseous or upper abdominal finding. Stable severe compression fracture at the thorac olumbar junction. IMPRESSION: No acute cardiopulmonary process. Reviewed, dictated and finalized at location K. DATA ENGINEER
--- OUTSIDE RECORDS SUMMARY | 2024-07-23 19:43 | XMS_ITS | Encounter Summary ---
Author Organization [facility] Address Formerly [facility] [place] [address] Care Team Providers Care Erosion Control Specialist Name Role Phone Donavon Connor MD Primary Care Provider [phone] Reason for Visit * Auth/Cert (Routine) Specialty Diagnoses / Procedures Referred By Janel goyal Referred To Contact Home Health Services Referral ID Status Reason Start Date Expiration Date Visits Re quested Visits Authorized [id number] 1 7 Encounter Details Date Type Department Care Team (Latest Contact Info) Description 07/23/2024 12:15 PM LIFTS AND CRANES INSPECTOR Home Care Visit [facility] [address] [place] [address] [place] [address] Preeti Chang, RN [phone] (Work) SN OASIS RESUMPTION OF CARE Social History Tobacco Use Types Packs/Day Years Used Date Smoking Tobacco: Never Passive Smoke Exposure: Never Smokeless Tobacco: Never Alcohol Use Standard Drinks/Week Comments Not Currently 0 (1 standard drink = 0.6 oz pur e alcohol) OASIS D0700: Social Isolation Answer Da te Recorded Frequency of experiencing loneliness or isolatio n Never 07/23/2024 OASIS A1250: Transportation Answer Date Recorded Lack of Transportation (Medical) No 07/23/2024 Lack of Transportation (Non-Medical) No 07/23/2024 Patient Unable or Declines to Respond No 07/23/2024 OASIS B1300: Health Literacy Answer Macho e Recorded Frequency of needing help to read materials from doctor or pharmacy Often 07/23/2024 [facility] Utilities Answer Date Recorded In the [...] than three times a week 12/30/2022 Attends Bahai Services Not on file 12/30 Do you belong to any clubs o r organizations such as muslim groups, unions, fraternal or athletic groups, or [...] place to sleep or slept in a fdc (including now)? No 06/24/2023 Housing Stability Vital Sign Answer Macho e Recorded In the last 12 months, was t here a time when you were not able to pay the mortgage or rent on time? No 04/10/2024 In the past 12 months, how m any times have you moved where you were living? 0 04/10/2024 At any time in the past 12 m [facility], were you homeless or living in a fdc (including now)? No 04/10/2024 Sex and Gender Information Value Date Recorded Sex Assigned at Male 04/09/2024 9:16 PM LIFTS AND CRANES INSPECTOR Legal Sex Male 8:36 PM CDT Gender Identity Male 04/09/2024 9:16 PM LIFTS AND CRANES INSPECTOR Sexual Orientation Straight 04/09/2024 9: 16 PM LIFTS AND CRANES INSPECTOR documented as of this encounter Last Filed Vital Signs Vital Sign Reading Time Taken Comments Blood Pressure 140/80 07/23/2024 11:10 AM LIFTS AND CRANES INSPECTOR Pulse 77 07/23/2024 11:10 AM LIFTS AND CRANES INSPECTOR Temperature 36.7 C (98.1 F) 07/23/2024 11:10 AM LIFTS AND CRANES INSPECTOR Respiratory Rate 18 07/23/2024 11:10 AM LIFTS AND CRANES INSPECTOR Oxygen Saturation 99% 07/23/2024 11:10 AM LIFTS AND CRANES INSPECTOR Inhaled Oxygen Concentration - - Weight 68.9 kg (152 lb) 07/23/2024 11:10 AM LIFTS AND CRANES INSPECTOR Height 162.6 cm (5' 4 ) 07/23/2024 11:10 AM LIFTS AND CRANES INSPECTOR Body Mass Index 26.09 07/23/2024 11:10 AM LIFTS AND CRANES INSPECTOR documented in this encounter Functional Status * Are you deaf or do you have serious difficulty hearing Answer Date of Assessment Author Status No 04/09/2024 9:27 PM Shayla Bradshaw RN Active * Are you blind or do you have serious difficulty seeing, even when wearing glasses? Answer Date of Assessment Author Status No 04/09/2024 9:27 PM Shayla Bradshaw RN Active * Do you have serious difficulty walking or climbing stairs? Answer Date of Assessment Author Status No 04/09/2024 9:27 PM Shayla Bradshaw RN Active * Do you have difficulty [...] Care Team (Late st Contact Info) Description 07/24/2024 8:40 AM LIFTS AND CRANES INSPECTOR Office Visit [facility] Family and Sports Medicine - [place] [address] [place] [address] Donavon Connor MD [address] [place] [address] 07/25/2024 3:00 PM LIFTS AND CRANES INSPECTOR Home Care Visit [facility] [address] Care [facility] [place] [address] [place] [address] Catie Zabala, PT [address] [place] [address] 07/26/2024 8:00 AM LIFTS AND CRANES INSPECTOR Home Care Visit [facility] [address] [place] [address] [place] [address] Juliana Mcgrath, RN 07/30/2024 8:00 AM LIFTS AND CRANES INSPECTOR Home Care Visit [facility] [address] [place] [address] [place] [address] Juliana Mcgrath, RN 08/02/2024 8:00 AM LIFTS AND CRANES INSPECTOR Appointment [address] [place] [address] [place] [address] Juliana Mcgrath, RN 01/06/2025 11:00 AM CDT Office Visit [facility] Multispecialty Care - [facility] [address] [facility], [address] [place] [address] Lai Anderson MD [address] [place] [address] documented as of this encounter Goals Goal [...] Total Score: 0 04/19/20 24 9:36 AM LIFTS AND CRANES INSPECTOR documented as of this encounter Home Health Visit - Care Plan Visit Details Visit Type -SN - OASIS Resum ption of Care Discipline -Nursing Home Problems Problem Description Start Date Status Goals Interve ntions Collaboration of Care Disciplines: SN Collaboration for safe care. 07/02/2024 Active 5 goals linked to scheduled/document ed interventions 11 goal interventions scheduled/documen norberto in this visit Fall Precautions Disciplines: SN Patient at risk for falls or has had recent fall occurrence(s). 07/02/2024 Active 1 goal linked to scheduled/document ed intervention 5 goal interventions scheduled/documen norberto in this visit Pneumonia Disciplines: SN Care related to FLU 07/02/2024 Active 1 goal linked to scheduled/document ed intervention 6 goal interventions scheduled/documen norberto in this visit Nutritional Concerns - Diabetes Disciplines: SN Lack of knowledge related to diabetic nutritional concerns. 07/02/2024 Resolved on 07/23/2024 1 goal linked to scheduled/document ed intervention 1 goal intervention scheduled/documen norberto in this visit Learning/Teac melissa Needs - Insulin Management Disciplines: SN Lack of knowledge related to insulin management. 07/02/2024 Resolved on 07/23/2024 1 goal linked to scheduled/document ed intervention 1 goal intervention scheduled/documen norberto in this visit Learning/Teac melissa Needs - Diabetes Disciplines: SN Learning and teaching needs associated with diagnosis. 07/02/2024 Active 1 goal linked to scheduled/document ed intervention 7 goal interventions scheduled/documen norberto in this visit Goals Goal Associated Problem Outcome Goal Met? Visit Notes Hosptial Readmission Reduction Description: Hospital Readmission Reduction -5 Collaboration of Care Progressing No Patient safety met through collaboration for safe care. Description: Clinicians will communicate patient care and safety needs during episode of care through 08/03/24 Collaboration of Care Progressing No Nutritional Status for Optimal Health Description: Patient will demonstrate adequate nutritional status as evidenced by stabilization of weight and intake of required nutrients for optimal health and functioning by 07/19/24 STG: Patient and caregiver will verbalize importance of adequate nutrition and fluid intake by 07/23/24-goal met by leona abreu on 07/23/24 LTG: Patient will demonstrate adequate nutritional status as evidenced by stabilization of weight and intake of required nutrients for optimal health and functioning through 08/03/24 Collaboration of Care Progressing No Patient verbalizes understanding of medication regimen Description: /son will verbalize understanding of medication regimen by 07/02/24 met davian rn STG: Patient and Caregiver will verbalize understanding of medication regimen by 07/23/24-goal met by leona abreu on 07/23/24 LTG: Patient and caregiver will administer medications appropriately as ordered through 08/03/24 Collaboration of Care Progressing No Patient meets homebound requirements. Description: Patient meets requirements of homebound status as evidenced by use of assistive device, shortness of breath with exertion. Collaboration of Care Progressing No Patient/caregiver maintains a safe environment. Description: Patient/caregiver will demonstrate ability to maintain a safe environment without injuries/falls by 07/19/24 Patient/caregiver will verbalize ways to keep environment STG: Patient and Caregiver will verbalize understanding of home safety and fall prevention measures by 07/23/24-goal met by leona abreu on 07/23/24 LTG: Patient will demonstrate ability to maintain a safe environment without injuries/falls through 08/03/24 Fall Precautions Progressing No Patient's pulmonary care needs met without signs/symptoms of complications. Description: Patient will demonstrate a return to baseline pulmonary function with resolution of infection by 07/19/24 Patient will demonstrate compliance of incentive spirometer by 07/08/24 STG: Patient and caregiver will verbalize understanding of pulmonary care needs, signs/symptoms of complications and when to call SN/MD/EMS by 07/23/24-goal met by leona abreu on 07/23/24 LTG: Patient will demonstrate a return to baseline pulmonary function with resolution of infection by 08/03/24 Pneumonia Progressing No Patient/caregiver demonstrates compliance with diabetic diet and appropriate diet planning to maintain blood sugar levels within normal range. Description: /son will demonstrate compliance with diabetic diet and appropriate diet planning to maintain blood sugar levels within normal ranges by 07/19/24 /son will verbalize diet plan by 07/02/24 met davian rn Nutritional Concerns - Diabetes Progressing No Patient/caregiver demonstrates ability to administer insulin using correct technique and site rotation. Description: /son will demonstrate the ability to administer insulin using correct technique and site rotation by 07/19/24 /son will verbalize how to adjust/administer insuline by 07/02/24 met davian rn Learning/Teaching Needs - Insulin Management Progressing No Patient demonstrates adequate knowledge of diabetes monitoring and treatment. Description: - Patient/caregiver will demonstrate adequate knowledge of diabetes as evidenced by the ability to perform blood sugar monitoring; care of feet, skin, and eyes; signs/symptoms of altered glycemic status states; and their treatment by 07/08/24 - Goal blood sugars to remain WNL by 07/19/24 STG: Patient and caregiver will demonstrate adequate knowledge of diabetes as evidenced by the ability to perform blood glucose monitoring, care of feet,skin, and eyes; signs/symptoms of altered glycemic status states and their treatment by 07/23/24-goal met by leona abreu on 07/23/24 LTG: Blood glucose levels to remain WNL through 08/03/24 Learning/Teaching Needs - Diabetes Progressing No Interventions Intervention Associated Problem/Goal Status Variance Visit Notes Hospitalization Risk Description: Instruct /son in minimizing hospitalization risk related to flu/respiratory complications, cardiac complications. Problem:Collaboratio n of Care Goal:Hosptial Readmission Reduction Completed sn instructed pt and caregiver, pt and caregiver verbalized understanding Assess Vital Signs Description: Obtain and record vital signs. Report to MD BP: systolic blood pressure <90 or >160; diastolic blood pressure <60 or >90. Temperature: >100.5 F. Pulse: <60 or >100 bpm. Respiratory Rate: <12 or >28 /min. SPO2: <90%. May check SPO2 as needed for initial assessment or dyspnea. Problem:Collaboratio n of Care Goal:Patient safety met through collaboration for safe care. Completed Insurance Verification Description: Verify with patient/caregiver current insurance coverage. Problem:Collaboratio n of Care Goal:Patient safety met through collaboration for safe care. Completed Reviewed coverage and pt responsibility, plan pays 100% of home care visits, pt and caregiver aware and agree to continue with services. Plan for Next Visit Description: Next visit plan summation Problem:Collaboratio n of Care Goal:Patient safety met through collaboration for safe care. Completed Next visit scheduled on monday07/26/24 Patient and Caregiver aware of and agreeable to plan. Advised to call Agency for non-emergent questions/concerns. Plan Towards Discharge Description: Document /son progress towards discharge. Problem:Collaboratio n of Care Goal:Patient safety met through collaboration for safe care. Completed sn instructed pt and caregiver, pt and caregiver verbalized understanding Care Coordination Description: Clinician to review plan of care with patient/caregivers(s). Patient/Caregiver(s) agree(s) to plan of care and agrees to participate in care. Problem:Collaboratio n of Care Goal:Patient safety met through collaboration for safe care. Completed sn instructed pt and caregiver, pt and caregiver verbalized understanding Instruct Disaster/Evacuation Plan Description: Instruct in planning and execution of disaster/evacuation plan. Assist /son in development or revision of plan as indicated. Problem:Collaboratio n of Care Goal:Patient safety met through collaboration for safe care. Completed Reviewed emergency plan with pt and caregiver, patient and caregiver denies any changes in plan since start of care visit. Skilled Assessment Risk for Injury Description: Evaluate patient's home environment for potential safety risks, and educate /son on identified safety risks. Problem:Collaboratio n of Care Goal:Patient safety met through collaboration for safe care. Completed sn instructed pt and caregiver, pt and caregiver verbalized understanding Instruct diet Description: Instruct on diabtic diet and any fluid restrictions/requiremen ts. Problem:Collaboratio n of Care Goal:Nutritional Status for Optimal Health Completed sn instructed pt and caregiver, pt and caregiver verbalized understanding Medication Reconciliation Description: - Review and identify unnecessary therapeutic duplication. Each clinician to perform bottle check weekly on their first visit of the week. - Patient to take medications as set up by /son Problem:Collaboratio n of Care Goal:Patient verbalizes understanding of medication regimen Completed Medication reconciliation performed with weekly bottle check. Medication Management Description: - Assess /son ability to manage medications. Provide detailed instruction on proper administration and medication management. - Instruct /son in medication administration, purpose, dosages, preparation, scheduling, side effects, food/drug & drug/drug interactions, storage, and potential complications. Problem:Collaboratio n of Care Goal:Patient verbalizes understanding of medication regimen Completed Home medication management discussed, instructed, reinforced, reviewed with patient and caregiver. Patient and Caregiver verbalizes ability to perform safe home medication administration. Instruct on Fall Prevention Description: Educate /son about fall prevention. Problem:Fall Precautions Goal:Patient/caregiv er maintains a safe environment. Completed sn instructed pt and caregiver, pt and caregiver verbalized understanding Teach Scheduled/Assisted Toileting Description: Teach /son importance of frequent assisted toileting to avoid falls when unassisted. Problem:Fall Precautions Goal:Patient/caregiv er maintains a safe environment. Completed sn instructed pt and caregiver, pt and caregiver verbalized understanding Report Falls to Provider within 24 Hours Description: Report witnessed or reported falls to provider within 24 hours Problem:Fall Precautions Goal:Patient/caregiv er maintains a safe environment. Completed sn instructed pt and caregiver, pt and caregiver verbalized understanding Assess Appropriateness for Homecare Description: Assess /son ability to remain safe in current environment. Problem:Fall Precautions Goal:Patient/caregiv er maintains a safe environment. Completed Teach Safe Use of Assistive Devices Description: Assess DME needs and appropriateness of current DME used walker Problem:Fall Precautions Goal:Patient/caregiv er maintains a safe environment. Completed sn instructed pt and caregiver, pt and caregiver verbalized understanding Assess Signs and Symptoms Description: - SN assess respiratory rate and effort, lung sounds, changes in vital signs, SpO2, pain, use of accessory muscles.- SN assess for inability to move secretions, air hunger, reduced tolerance for activity, confusion, anxiety. Problem:Pneumonia Goal:Patient's pulmonary care needs met without signs/symptoms of complications. Completed Anxiety Management Description: - Instruct /son on the proper administration and use of anti-anxiety medications and pharmacologic/ nonpharmacologic means to treat anxiety/agitation.- Instruct /son in methods to reduce anxiety including providing a calm environment with minimal disturbances, encouraging family members and friends to visit in small numbers to reduce stimulation, and routine schedule for ADLs. Problem:Pneumonia Goal:Patient's pulmonary care needs met without signs/symptoms of complications. Completed sn instructed pt and caregiver, pt and caregiver verbalized understanding Infection Prevention Description: - Instruct /son in strategies to prevent infection: handwashing, keeping supplies in clean place.- Instruct /son in how to recognize signs and symptoms of infection and when to notify home care agency and/or physician.- Encourage patient to obtain influenza vaccine and wear mask as needed. Problem:Pneumonia Goal:Patient's pulmonary care needs met without signs/symptoms of complications. Completed sn instructed pt and caregiver, pt and caregiver verbalized understanding Respiratory Appliance Description: Instruct /son in proper use of incentive spirometer every 1 hour while awake Problem:Pneumonia Goal:Patient's pulmonary care needs met without signs/symptoms of complications. Completed sn instructed pt and caregiver, pt and caregiver verbalized understanding Instruct Energy Conservation Description: - Instruct /son on energy conservation strategies and use of assistive devices to minimize energy expenditure. Problem:Pneumonia Goal:Patient's pulmonary care needs met without signs/symptoms of complications. Completed sn instructed pt and caregiver, pt and caregiver verbalized understanding Instruct Disease Process Description: - Discuss signs/symptoms, complications, and actions to take with disease progression and if exacerbation occurs. - Instruct about disease mechanisms and /son progression. Problem:Pneumonia Goal:Patient's pulmonary care needs met without signs/symptoms of complications. Completed sn instructed pt and caregiver, pt and caregiver verbalized understanding Instruct Diet Description: - Instruct on diabetic diet and any fluid restrictions/requiremen ts. - Instruct on how to keep a daily log of intake of food, carbohydrates, weekly weight, and incidence of changes in diet to reflect changes in blood sugars. Problem:Nutritional Concerns - Diabetes Goal:Patient/caregiv er demonstrates compliance with diabetic diet and appropriate diet planning to maintain blood sugar levels within normal range. Completed sn instructed pt and caregiver, pt and caregiver verbalized understanding Instruct Insulin Administration Description: - Instruct /son in insulin purpose, side effects, possible complications, administration procedure, and schedule. - Instruct on safe handling and storage of insulin and on safe disposal of needles and testing equipment. - Educate patient on insulin expiration dates and manufacture guideline expiration dates. Problem:Learning/Tea moris Needs - Insulin Management Goal:Patient/caregiv er demonstrates ability to administer insulin using correct technique and site rotation. Completed sn instructed pt and caregiver, pt and caregiver verbalized understanding Instruct Daily Log Description: - SN to develop blood sugar diary for patient to record daily readings. Instruct patient to monitor and record blood sugars on daily log or glucometer. - Instruct when to call MD/RN or 911. Problem:Learning/Tea moris Needs - Diabetes Goal:Patient demonstrates adequate knowledge of diabetes monitoring and treatment. Completed sn instructed pt and caregiver, pt and caregiver verbalized understanding Instruct Diabetes Description: Instruct /son in disease process: Chronic condition where body does not make enough insulin; Type 1 or Type 2; long-term effects on eyes, kidneys, and blood vessels. Problem:Learning/Tea moris Needs - Diabetes Goal:Patient demonstrates adequate knowledge of diabetes monitoring and treatment. Completed sn instructed pt and caregiver, pt and caregiver verbalized understanding Instruct Sick Day Description: Instruct patient in Sick Day Guidelines including: checking blood sugars every 4 hours, increasing fluids to at least 8 ounces per hour of sugar-free liquids, resting, continuing diabetic medication, and if unable to take solid food replacing it with juice, regular Jell-O, regular soda, or popsicles. - Notify MD/RN if levels continue over 300. Problem:Learning/Tea moris Needs - Diabetes Goal:Patient demonstrates adequate knowledge of diabetes monitoring and treatment. Completed sn instructed pt and caregiver, pt and caregiver verbalized understanding Instruct Hypoglycemia Signs/Symptoms Description: - Instruct /son on the signs and symptoms of hypoglycemia: sweating, shakiness, nervousness, pounding heart, weakness, confusion, lightheadedness, grouchiness, or sleepiness. - Instruct in causes of hypoglycemia including: skipped or delayed meal, increased physical activity or exercise, too much or incorrect type of diabetic medication. - Instruct in methods to prevent and the actions to take to resolve including these steps: take blood glucose reading and write it down. If blood glucose is below 70 or any symptoms are felt, take ONE of the followin-4 glucose tablets, 1 tube glucose gel, 1 cup milk, 1/2 cup juice, or 1/2 can regular (non-diet) soda. Do not take orange juice if kidney failure. Wait 15 minutes. Recheck blood sugar. If still below 70, repeat treatment. When feeling better, eat 1/2 sandwich or drink 1 cup milk OR if it is less than one hour before mealtime, eat the meal. Call MD if still not feeling better after 30 minutes or if blood sugar stays below 70. Problem:Learning/Tea moris Needs - Diabetes Goal:Patient demonstrates adequate knowledge of diabetes monitoring and treatment. Completed sn instructed pt and caregiver, pt and caregiver verbalized understanding Instruct Hyperglycemia Signs/Symptoms Description: - Instruct /son in signs/symptoms of hyperglycemia including: frequent urination, thirstiness, tired, headache, muscle cramps, dizziness, fruity breath, confusion. - Instruct in causes of hyperglycemia including: skipped, late, or too little dose of diabetes medication; decrease in usual amount of activity; increase in usual amount of food intake; stress (emotional or physical); illness or infection; and some medications. - Instruct in treatments including these steps: Take blood sugars every two hours, drink liquids without sugar at least 8 ounces every hour, follow usual meal plan, take diabetic medication as ordered, call your MD if glucose level remains above 300 two or more times in 24 hours. Problem:Learning/Tea moris Needs - Diabetes Goal:Patient demonstrates adequate knowledge of diabetes monitoring and treatment. Completed sn instructed pt and caregiver, pt and caregiver verbalized understanding Blood Glucose Monitoring Description: - /son to perform blood sugar testing and record in daily log. Instruct to notify physician pipeline operator of fasting blood sugar if <70mg/dl or >300mg/dl for 2 consecutive readings or with any hypoglycemic episode. - Instruct /son in target ranges of 90-130 before meals and less than 180 one to two hours after meals. - SN to instruct /son on how to perform blood sugar monitoring using patient's meter, how often and when, and safe disposal of needles and testing equipment. - Check that glucometer is operational, strips are not /stored properly. Arrange for new meter as needed. QC testing done. Problem:Learning/Tea moris Needs - Diabetes Goal:Patient demonstrates adequate knowledge of diabetes monitoring and treatment. Completed sn instructed pt and caregiver, pt and caregiver verbalized understanding Instruct Diabetic Activity Description: Instruct /son in activity including: - Exercise 3-6 times weekly. Start slowly and gradually increase length and difficulty of activity. - Check blood sugars before and after exercise. Exercise impacts blood sugar for up to 24 hours. - Carry some form of sugar when exercising. - Wear loose clothing and supportive shoes. Problem:Learning/Tea moris Needs - Diabetes Goal:Patient demonstrates adequate knowledge of diabetes monitoring and treatment. Completed sn instructed pt and caregiver, pt and caregiver verbalized understanding documented in this encounter Care Teams Erosion Control Specialist Relationship Specialty Start Date End Date Donavon Connor MD [address] [address] PCP - General FAMILY PRACTICE 04/13/20 documented as of this encounter
--- OUTSIDE RECORDS SUMMARY | 2024-07-23 19:43 | XMS_ITS | Referral Summary ---
Author Organization [facility] Address [address] [place] [address] Care Team Providers Care Art Therapy Specialist Name Role Phone No, Physician Primary Care Provider [phone] Bunny Ramires MD Unavailable [phone] Encounters Date Type Department Care Team Description 07/15/[address] [facility] Cardiology [address] [facility] [address] [place] [address] Gina Link MD 07/08/2024 2:00 PM PHOTOGRAPHIC AIDE Office Visit [facility] Cardiology [address] [place] [address] [address] [place] [address] Gina Link MD Hypertension associated with diabetes (HCC) (Primary Dx); Coronary artery disease involving [place] coronary artery of [place] heart without angina pectoris; Cardiomyopathy, ischemic 07/02/[address] [facility] Cardiology [address] [facility] [address] [place] [address] Gerhard Ratliff MD 06/29/2024 Orders Only [facility] [address] [place] [address] Allegra Shin MD 06/26/[address] [facility] Cardiology [address] [facility] [address] [place] [address] Peyton De Guzman MD from Last [...] Active Problems Problem Noted Date Diagnosed Date Cardiomyopathy, ischemic 07/22/2024 Coronary artery disease involving [place] heart 0 07/15/2024 Constipation, unspecified constipation type 08/2022 Assessment & Plan (07/31/2022 11:22 AM PHOTOGRAPHIC AIDE): No symptoms or signs of mechanical obstruction. [...] 07/30/2022 Assessment & Plan (07/31/2022 11:21 AM PHOTOGRAPHIC AIDE): On metformin 500 mg twice daily at [...] 07/30/2022 Assessment & Plan (07/31/2022 10:46 AM PHOTOGRAPHIC AIDE): Not on any treatment at home. BP well controlled, CTM and add medications if needed Benign prostatic hyperplasia without lower urinary tract symptoms 07/30/2022 Assessment & Plan (07/31/2022 10:44 AM PHOTOGRAPHIC AIDE): Patient was recently started on Flomax and finasteride at OSH. Patients son reported patient was experiencing difficulty urinating - continue home meds and pcp follow up for further management Stage 3a chronic kidney disease 07/30/2022 Assessment & Plan (07/31/2022 10:48 AM PHOTOGRAPHIC AIDE): Creatinine is 1.48, up from the most [...] on file Legal Sex Male 5:44 AM PHOTOGRAPHIC AIDE Gender Identity Not on file Sexual Orientation Not on file Last Filed Vital Signs Vital Sign Reading Time Taken Comments Blood Pressure 116/60 07/08/2024 1:05 PM PHOTOGRAPHIC AIDE Pulse 88 07/08/2024 1:05 PM PHOTOGRAPHIC AIDE Temperature 36.5 C (97.7 F) 07/31/2022 8:00 AM PHOTOGRAPHIC AIDE Respiratory Rate 16 07/31/2022 7:55 AM PHOTOGRAPHIC AIDE Oxygen Saturation 99% 07/08/2024 1:05 PM PHOTOGRAPHIC AIDE Inhaled Oxygen Concentration - - Weight 67.9 kg (149 lb 9.6 oz) 07/08/2024 1:05 P M PHOTOGRAPHIC AIDE Height 162.6 cm (5' 4 ) 07/08/2024 1:05 PM PHOTOGRAPHIC AIDE Body Mass Index 25.68 07/08/2024 1:05 PM PHOTOGRAPHIC AIDE Plan of Treatment Not on file Procedures Procedure Name Priority Date/Time Associated Diagnosis Comments CARDIOLOGY DOCUMENT SCAN Routine 07/01/2024 3:53 PM PHOTOGRAPHIC AIDE CARDIOLOGY DOCUMENT SCAN Routine 06/30/2024 3:49 PM PHOTOGRAPHIC AIDE CARDIOLOGY DOCUMENT SCAN Routine 06/29/2024 3:44 PM PHOTOGRAPHIC AIDE SCAN - RADIOLOGY/IMAGING 06/29/2024 CARDIOLOGY DOCUMENT SCAN Routine 06/28/2024 3:37 PM PHOTOGRAPHIC AIDE CARDIOLOGY DOCUMENT SCAN Routine 06/27/2024 3:32 PM PHOTOGRAPHIC AIDE CARDIOLOGY DOCUMENT SCAN Routine 06/26/2024 3:20 PM PHOTOGRAPHIC AIDE CARDIOLOGY DOCUMENT SCAN Routine 06/24/2024 3:16 PM PHOTOGRAPHIC AIDE CARDIOLOGY DOCUMENT SCAN Routine 06/23/2024 3:10 PM PHOTOGRAPHIC AIDE CARDIOLOGY DOCUMENT SCAN Routine 06/22/2024 3:04 PM PHOTOGRAPHIC AIDE CARDIOLOGY DOCUMENT SCAN Routine 06/22/2024 3:03 PM PHOTOGRAPHIC AIDE CARDIOLOGY DOCUMENT SCAN Routine 06/22/2024 3:00 PM PHOTOGRAPHIC AIDE EGFR Routine 07/31/2022 5:30 AM PHOTOGRAPHIC AIDE HEMOGLOBIN A1C Routine 07/30/2022 10:23 PM PHOTOGRAPHIC AIDE LIPID PANEL Routine 07/30/2022 10:23 PM PHOTOGRAPHIC AIDE from Last 3 Months or Most Recently Relevant to Health Maintenance Results * Cardiology Document Scan (07/01/2024 3:53 PM PHOTOGRAPHIC AIDE) Anatomical Region Laterality Modality Other Result David Ratliff MD CV CARDIAC SERVICES PROCEDURES F inal Result * Cardiology Document Scan (06/30/2024 3:49 PM PHOTOGRAPHIC AIDE) Anatomical Region Laterality Modality Other Result David Shin MD CV CARDIAC SERVICES PRO CEDURES Final Result * Cardiology Document Scan (06/29/2024 3:44 PM PHOTOGRAPHIC AIDE) Anatomical Region Laterality Modality Other Result David Shin MD CV CARDIAC SERVICES PRO CEDURES Final Result * SCAN - RADIOLOGY/IMAGING (06/29/2024) Anatomical Region Laterality Modality Other Result David Shin MD Final R esult * Cardiology Document Scan (06/28/2024 3:37 PM PHOTOGRAPHIC AIDE) Anatomical Region Laterality Modality Other Result David Shin MD CV CARDIAC SERVICES PRO CEDURES Final Result * Cardiology Document Scan (06/27/2024 3:32 PM PHOTOGRAPHIC AIDE) Anatomical Region Laterality Modality Other us Gerhard Ratliff MD CV CARDIAC SERVICES PROCEDURES F inal Result * Cardiology Document Scan (06/26/2024 3:20 PM PHOTOGRAPHIC AIDE) Anatomical Region Laterality Modality Other Result David Shin MD CV CARDIAC SERVICES PRO CEDURES Final Result * Cardiology Document Scan (06/24/2024 3:16 PM PHOTOGRAPHIC AIDE) Anatomical Region Laterality Modality Other Result David Shin MD CV CARDIAC SERVICES PRO CEDURES Final Result * Cardiology Document Scan (06/23/2024 3:10 PM PHOTOGRAPHIC AIDE) Anatomical Region Laterality Modality Other Result David De Guzman MD CV CARDIAC SERVICES PROCEDU RES Final Result * Cardiology Document Scan (06/22/2024 3:04 PM PHOTOGRAPHIC AIDE) Anatomical Region Laterality Modality Other Result David De Guzman MD CV CARDIAC SERVICES PROCEDU RES Final Result * Cardiology Document Scan (06/22/2024 3:03 PM PHOTOGRAPHIC AIDE) Anatomical Region Laterality Modality Other Result David De Guzman MD CV CARDIAC SERVICES PROCEDU RES Final Result * Cardiology Document Scan (06/22/2024 3:00 PM PHOTOGRAPHIC AIDE) Anatomical Region Laterality Modality Other Result David De Guzman MD CV CARDIAC SERVICES PROCEDU RES Final Result * (ABNORMAL) eGFR (07/31/2022 5:30 AM PHOTOGRAPHIC AIDE) eGFR 54(L) 90 - 130 mL/min/1. 73 m2 [facility] Comment: Interpretive Data Reference Interval Normal [...] last reviewed 2021. Blood 07/31/2022 5:30 AM PHOTOGRAPHIC AIDE 07/31/2022 5:51 AM PHOTOGRAPHIC AIDE Lizabeth Strong MD LAB BLOOD ORDERABLES Fin al Result Performing Organization Address [facility] de Phone Number [facility] [place] [address] * (ABNORMAL) Hemoglobin A1c (07/30/2022 10:23 PM PHOTOGRAPHIC AIDE) Hgb A1C 10.7(H) 4.0 - 5.6 % [facility] Estimated Average Glucose 260 mg/dL [facility] Comment: The ADA recommends reporting an estimated Average Glucose (eAG) with all Hemoglobin A1c results using the equation derived from a study of 507 normal and diabetic adults. Minority populations were underrepresented and children were not included. (Diabetes Care 2020; 43(S1): S66-S76). The eAG is not equivalent to a fasting glucose. Blood 07/30/2022 10:2 3 PM PHOTOGRAPHIC AIDE 07/30/2022 10:39 PM PHOTOGRAPHIC AIDE Lizabeth Strong MD LAB BLOOD ORDERABLES Fin al Result Performing Organization Address [facility] de Phone Number [facility] [place] [address] * (ABNORMAL) Lipid panel (07/30/2022 10:23 PM PHOTOGRAPHIC AIDE) Cholesterol 167 30 - 199 mg/dL [facility] Comment: Interpretive Data Ages < or [...] revised on 2018. Triglycerides 155(H) <=149 mg/dL [facility] Comment: Interpretive Data Ages < or [...] on 2018. HDL 43 >=40 mg/dL [facility] Comment: Interpretive Data Ages < or [...] on 2018. LDL, calculated 93 <=129 mg/dL [facility] Comment: Interpretive Data Ages < or [...] revised on 2018. Non-HDL Cholesterol 124 mg/dL [facility] Comment: Interpretive Data Ages < or = [...] last revised on 2018. Chol/HDL ratio 4 [facility] Blood 07/30/2022 10:2 3 PM PHOTOGRAPHIC AIDE 07/30/2022 10:39 PM PHOTOGRAPHIC AIDE us Lizabeth Strong MD LAB BLOOD ORDERABLES Fin al Result [facility] [place] [address] from Last 3 Months or Most Recently Relevant to Health Maintenance Insurance [facility] Advance Directives For more information, please contact: [phone] * Full Code (Latest Code Status on File) Date Activated Date Inactivated Comments 07/30/2022 9:33 PM 07/31/2022 6:01 PM Care Teams Art Therapy Specialist Relationship Specialty Start Date End Date No, Physician PCP - General 07/30/22 Bunny Ramires MD 07/30/22
--- OUTSIDE RECORDS SUMMARY | 2024-07-23 19:43 | XMS_ITS | Encounter Summary ---
Author Organization [facility] Address [facility] [place] [address] Care Team Providers Care Monument Installer Name Role Phone Donavon Connor MD Primary Care Provider [phone] Reason for Visit * Auth/Cert (Routine) Specialty Diagnoses / Procedures Referred By Janel goyal Referred To Contact Home Health Services Referral ID Status Reason Start Date Expiration Date Visits Re quested Visits Authorized [id number] 1 7 Encounter Details Date Type Department Care Team (Late st Contact Info) Description 07/22/2024 9:30 AM LICENSE ISSUER Home Care Visit [facility] Care [address] [place] [address] Makenzie Cheema RN [phone] (Work) SN NON ADMIT LETTY Social History Tobacco Use Types Packs/Day Years [...] materials from doctor or pharmacy Often 07/23/2024 [facility] Utilities Answer Date Recorded In the past [...] than three times a week 12/30/2022 Attends Anabaptism Services Not on file 12/30 Do you belong to any clubs o r organizations such as temple groups, unions, fraternal or athletic groups, or [...] place to sleep or slept in a fpc (including now)? No 06/24/2023 Housing Stability Vital Sign Answer Macho e Recorded In the last 12 months, was t here a time when you were not able to pay the mortgage or rent on time? No 04/10/2024 In the past 12 months, how m any times have you moved where you were living? 0 04/10/2024 At any time in the past 12 m [facility], were you homeless or living in a fpc (including now)? No 04/10/2024 Sex and Gender Information Value Date Recorded Sex Assigned at Male 04/09/2024 9:16 PM LICENSE ISSUER Legal Sex Male 8:36 PM CDT Gender Identity Male 04/09/2024 9:16 PM LICENSE ISSUER Sexual Orientation Straight 04/09/2024 9: 16 PM LICENSE ISSUER documented as of this encounter Functional Status [...] st Contact Info) Description 07/24/2024 8:40 AM LICENSE ISSUER Office Visit [facility] [place] [address] [place] [address] Donavon Connor MD [address] [address] 07/25/2024 3:00 PM LICENSE ISSUER Home Care Visit [facility] Care [address] [place] [address] Catie Zabala, PT [address] [place] [address] 07/26/2024 8:00 AM LICENSE ISSUER Home Care Visit [address] [place] [address] [place] [address] Juliana Mcgrath RN 07/30/2024 8:00 AM LICENSE ISSUER Home Care Visit [facility] Home Care [address] [place] [address] [place] [address] Juliana Mcgrath RN 08/02/2024 8:00 AM LICENSE ISSUER Appointment [facility] Care [facility] [address] [place] [address] [place] [address] Juliana Mcgrath RN 01/06/2025 11:00 AM CDT Office Visit [facility] - [facility] [address] [facility], [address] [place] [address] Lai Anderson MD [address] [place] [address] documented as of this encounter Goals Goal [...] Total Score: 0 04/19/20 24 9:36 AM LICENSE ISSUER documented as of this encounter Home Health Visit - Care Plan Visit Details Visit Type -SN Non Admit LETTY Discipline -Group Home Problems Problem Description Start Date Status Goals Interve ntions Collaboration of Care Disciplines: SN Collaboration for safe care. 07/02/2024 Active 2 goals linked to scheduled/document ed interventions 5 goal interventions scheduled/document ed in this visit Pneumonia Disciplines: SN Care related to FLU 07/02/2024 Active 1 goal linked to scheduled/document ed intervention 1 goal intervention scheduled/document ed in this visit Nutritional Concerns - Diabetes Disciplines: SN Lack of knowledge related to diabetic nutritional concerns. 07/02/2024 Active 1 goal linked to scheduled/document ed intervention 1 goal intervention scheduled/document ed in this visit Learning/Teach ing Needs - Diabetes Disciplines: SN Learning and teaching needs associated with diagnosis. 07/02/2024 Active 1 goal linked to scheduled/document ed intervention 1 goal intervention scheduled/document ed in this visit Goals Goal Associated Problem Outcome Goal Met? Visit Notes Patient safety met through collaboration for safe care. Description: Clinicians will communicate patient care and safety needs during episode of care through 07/19/24 Collaboration of Care No Patient verbalizes understanding of medication regimen Description: /son will verbalize understanding of medication regimen by 07/02/24 met [facility] rn Collaboration of Care No Patient's pulmonary care needs met without signs/symptoms of complications. Description: Patient will demonstrate a return to baseline pulmonary function with resolution of infection by 07/19/24 Patient will demonstrate compliance of incentive spirometer by 07/08/24 Pneumonia No Patient/caregiver demonstrates compliance with diabetic diet and appropriate diet planning to maintain blood sugar levels within normal range. Description: /son will demonstrate compliance with diabetic diet and appropriate diet planning to maintain blood sugar levels within normal ranges by 07/19/24 /son will verbalize diet plan by 07/02/24 met [facility] rn Nutritional Concerns - Diabetes No Patient demonstrates adequate knowledge of diabetes monitoring and treatment. Description: - Patient/caregiver will demonstrate adequate knowledge of diabetes as evidenced by the ability to perform blood sugar monitoring; care of feet, skin, and eyes; signs/symptoms of altered glycemic status states; and their treatment by 07/08/24 - Goal blood sugars to remain WNL by 07/19/24 Learning/Teaching Needs - Diabetes No Interventions Intervention Associated Problem/Goal Status Variance Visit Notes Assess Vital Signs Description: Obtain and record vital signs. Report to MD BP: systolic blood pressure <90 or >160; diastolic blood pressure <60 or >90. Temperature: >100.5 F. Pulse: <60 or >100 bpm. Respiratory Rate: <12 or >28 /min. SPO2: <90%. May check SPO2 as needed for initial assessment or dyspnea. Problem:Collaboration of Care Goal:Patient safety met through collaboration for safe care. Scheduled Insurance Verification Description: Verify with patient/caregiver current insurance coverage. Problem:Collaboration of Care Goal:Patient safety met through collaboration for safe care. Scheduled Plan for Next Visit Description: Next visit plan summation Problem:Collaboration of Care Goal:Patient safety met through collaboration for safe care. Scheduled Medication Reconciliation Description: - Review and identify unnecessary therapeutic duplication. Each clinician to perform bottle check weekly on their first visit of the week. - Patient to take medications as set up by /son Problem:Collaboration of Care Goal:Patient verbalizes understanding of medication regimen Scheduled Medication Management Description: - Assess /son ability to manage medications. Provide detailed instruction on proper administration and medication management. - Instruct /son in medication administration, purpose, dosages, preparation, scheduling, side effects, food/drug & drug/drug interactions, storage, and potential complications. Problem:Collaboration of Care Goal:Patient verbalizes understanding of medication regimen Scheduled Assess Signs and Symptoms Description: - SN assess respiratory rate and effort, lung sounds, changes in vital signs, SpO2, pain, use of accessory muscles.- SN assess for inability to move secretions, air hunger, reduced tolerance for activity, confusion, anxiety. Problem:Pneumonia Goal:Patient's pulmonary care needs met without signs/symptoms of complications. Scheduled Instruct Diet Description: - Instruct on diabetic diet and any fluid restrictions/requirements. - Instruct on how to keep a daily log of intake of food, carbohydrates, weekly weight, and incidence of changes in diet to reflect changes in blood sugars. Problem:Nutritional Concerns - Diabetes Goal:Patient/caregiver demonstrates compliance with diabetic diet and appropriate diet planning to maintain blood sugar levels within normal range. Scheduled Instruct Daily Log Description: - SN to develop blood sugar diary for patient to record daily readings. Instruct patient to monitor and record blood sugars on daily log or glucometer. - Instruct when to call MD/RN or 911. Problem:Learning/Teaching Needs - Diabetes Goal:Patient demonstrates adequate knowledge of diabetes monitoring and treatment. Scheduled documented in this encounter Care Teams Monument Installer Relationship Specialty Start Date End Date Donavon Connor MD [address] [address] PCP - General FAMILY PRACTICE 04/13/20 documented as of this encounter
--- OUTSIDE RECORDS SUMMARY | 2024-07-23 19:43 | XMS_ITS | Clinical Summary ---
Author Organization [facility] Address Formerly [facility] [place] [address] Care Team Providers Care Vp Securities Name Role Phone Donavon Connor MD Primary Care Provider [phone] Allergies Active Allergy Reactions Criticality Noted Date [...] Blood Pressure 90 tablet 04/15/20 24 Active Euvpeuuz-Hnb-Nb -FA (, W/IRON & FA, OR)Indications: Nutritional [...] 25 Active amoxicillin (AMOXIL) 500 MG capsuleIndicati ons:Pneumonia Take 500 mg by mouth 3 (three) times daily. Indications: Pneumonia 07/04/19 25 Active insulin lispro, 1 Unit Dial, (HUMALOG KWIKPEN) 100 UNIT/ML injection (PEN)Indication s:Diabetes Mellitus [The details of the medication are not available because there are pending changes by a home health clinician.] 3 pen. 5 07/04/19 24 025 Discontinu ed(Reorder ) insulin glargine (LANTUS) 100 UNIT/ML injection (VIAL)Indicatio ns:Diabetes Mellitus Indications: Diabetes ADMINISTER 9 UNITS UNDER THE SKIN EVERY MORNING 10 mL 5 04/13/20 24 025 Discontinu ed(Reorder ) amoxicillin (AMOXIL) 500 MG capsuleIndicati ons:Cough Take 1 capsule (500 mg total) by mouth 3 (three) times daily for 15 days. Indications: Cough 45 capsule 07/03/19 25 025 Active Problems Problem Noted Date Diagnosed Date [...] complication, with long-term current use of insulin ([facility]) 05/25/2020 05/04/2022 Essential hypertension 05/25/202005/04 Pressure injury of contiguou s region involving back and buttock, stage 3 ([facility]) 05/25/2020 05/04/2022 Decreased mobility 02/10/2020 2 Fracture of left clavicle 01/26/2020 Fracture of manubrium 01/26/20202021 Fracture of medial malleolus of right tibia 01/26/2020 05/04/2022 L1 vertebral fracture ([facility]) 01/25/2020 05/04/2022 Diabetes mellitus ([facility]) 01/13/2014 2021 Encounters Date Type Department Care Team Description 07/23/2024 12:15 PM GUEST EXPERIENCE MANAGER Home Care Visit [address] [address] Preeti Chang, JEREMY SN OASIS RESUMPTION OF CARE 07/23/2024 Plan of Care Documentation [address] [phone] 07/22/2024 9:30 AM GUEST EXPERIENCE MANAGER Home Care Visit [address] [phone] Makenzie Cheema RN SN NON ADMIT LETTY 07/19/2024 10:15 AM GUEST EXPERIENCE MANAGER Home Care Visit [address] [phone] Nereida London RN SN OASIS TRANSFER W/OUT DC 07/18/2024 Scan [facility] SRVCS Scanned, Doc Med Group Image (SCAN) 07/17/2024 Scan [facility] INFO SRVCS Scanned, Doc Med Group Image (SCAN) 07/15/2024 9:00 AM GUEST EXPERIENCE MANAGER Home Care Visit [address] [address] Maida Bello, COAT IRONER HAND COAT IRONER HAND HOME VISIT 07/13/2024 Scan [facility] INFO SRVCS Scanned, Doc Med Group Image (SCAN) 07/11/2024 11:15 AM GUEST EXPERIENCE MANAGER Home Care Visit [address] [address] Maida Bello, COAT IRONER HAND COAT IRONER HAND HOME VISIT 07/09/2024 12:00 PM GUEST EXPERIENCE MANAGER Home Care Visit [facility] Care [address] [phone] Juliana Mcgrath RN SN HOME VISIT 07/05/2024 11:30 AM GUEST EXPERIENCE MANAGER Home Care Visit [facility] Care [address] [phone] Anna Viera RN SN HOME VISIT 07/04/2024 12:30 PM GUEST EXPERIENCE MANAGER Home Care Visit [facility] Care [address] [phone] Wells, Yuridia K, OT OT INITIAL EVALUATION 07/04/2024 Scan [facility] INFO SRVCS Scanned, Doc Med Group 07/04/2024 Telephone [facility] Sports [facility] [address] [place] [address] Donavon Connor MD Advice 07/03/2024 3:00 PM GUEST EXPERIENCE MANAGER Home Care Visit [address] [place] [address] Devin Dean, PT PT INITIAL EVALUATION 07/03/2024 10:20 AM GUEST EXPERIENCE MANAGER Office Visit [facility] [place] [address] [place] [address] Donavon Connor MD TCM (Was admitted to [facility] for heart attack and was readmitted due to the Flu,Home health called to reconcile pt med list. States pt BP has been running low, has pitting edema in both legs refusing to use spirometer. States he may need a repeat BMP.///) 07/03/2024 Travel 07/02/2024 11:30 AM GUEST EXPERIENCE MANAGER Home Care Visit [address] [place] [address] Anna Viera, RN SN OASIS START OF CARE 07/02/[address] [place] [address] [place] [address] Donavon Connor MD 07/02/2024 Plan of Care Documentation [address] [place] [address] [place] [address] 07/01/2024 Scan [facility] SRVCS Scanned, Doc Med Group 07/01/[address] [place] [address] Scanned, [facility] 07/01/[address] [place] [address] Donavon Connor MD Advise 06/27/2024 Scan [facility] INFO SRVCS Scanned, Doc Med Group Image (SCAN) 06/26/2024 Scan [facility] INFO SRVCS Scanned, Doc Med Group Ultrasound (SCAN); CT (SCAN) 06/26/2024 Telephone [facility] [address] [place] [phone] Donavon Connor MD Advice 06/24/2024 Scan [facility] INFO SRVCS Scanned, Doc Med Group Echo (SCAN) 06/24/2024 Telephone [facility] [address] [place] [address] Donavon Connor MD Refill Request 06/22/2024 Scan [facility] INFO SRVCS Scanned, Doc Med [facility] 06/22/2024 Scan [facility] INFO SRVCS Scanned, Doc Med Group Image (SCAN) 05/15/2024 9:00 AM GUEST EXPERIENCE MANAGER Home Care Visit [address] [place] [address] [place] [address] Catie Zabala, PT PT OASIS DISCHARGE 05/14/[address] [phone] Donavon Connor MD Refill Request 05/12/2024 Home Care Visit [address] [place] [address] [place] [address] Catie Zabala, PT [facility] INTERDISCIPLINARY MTG 05/08/2024 1:45 PM GUEST EXPERIENCE MANAGER Home Care Visit [facility] Care [address] [place] [address] [place] [address] Loki Mart, COAT IRONER HAND COAT IRONER HAND HOME VISIT 05/06/2024 12:45 PM GUEST EXPERIENCE MANAGER Home Care Visit [address] [place] [address] [place] [address] Loki Mart, COAT IRONER HAND COAT IRONER HAND HOME VISIT 05/01/2024 1:00 PM GUEST EXPERIENCE MANAGER Home Care Visit [address] [address] Loki Mart, COAT IRONER HAND COAT IRONER HAND HOME VISIT 04/29/2024 1:45 PM GUEST EXPERIENCE MANAGER Home Care Visit [address] [address] Loki Mart, COAT IRONER HAND COAT IRONER HAND HOME VISIT 04/29/2024 11:00 AM GUEST EXPERIENCE MANAGER Home Care Visit [address] [address] Mounika Bingham, JEREMY SN DISCIPLINE DISCHARGE 04/24/2024 11:00 AM GUEST EXPERIENCE MANAGER Home Care Visit [address] [address] Loki Mart, COAT IRONER HAND COAT IRONER HAND HOME VISIT 04/23/2024 10:00 AM GUEST EXPERIENCE MANAGER Home Care Visit [address] [address] Mounika Bingham RN SN HOME VISIT 04/22/2024 1:45 PM GUEST EXPERIENCE MANAGER Home Care Visit [address] [address] Marti Carlson, DENTURE LABORATORY TECHNICIAN DENTURE LABORATORY TECHNICIAN INITIAL EVALUATION from Last 3 Months Immunizations Name Administration [...] materials from doctor or pharmacy Often 07/23/2024 [facility] Utilities Answer Date Recorded In the past 12 months has e Vistaar, gas, oil, or water Plynked threatened to shut off services in your [...] than three times a week 12/30/2022 Attends Confucianism Services Not on file 12/30 Do you belong to any clubs o r organizations such as advent groups, unions, fraternal or athletic groups, or [...] place to sleep or slept in a senior care (including now)? No 06/24/2023 Housing Stability Vital Sign Answer Macho e Recorded In the last 12 months, was t here a time when you were not able to pay the mortgage or rent on time? No 04/10/2024 In the past 12 months, how m any times have you moved where you were living? 0 04/10/2024 At any time in the past 12 m [facility], were you homeless or living in a senior care (including now)? No 04/10/2024 Sex and Gender Information Value Date Recorded Sex Assigned at Male 04/09/2024 9:16 PM GUEST EXPERIENCE MANAGER Legal Sex Male 8:36 PM CDT Gender Identity Male 04/09/2024 9:16 PM GUEST EXPERIENCE MANAGER Sexual Orientation Straight 04/09/2024 9: 16 PM GUEST EXPERIENCE MANAGER Last Filed Vital Signs Vital Sign Reading Time Taken Comments Blood Pressure 140/80 07/23/2024 11:10 AM GUEST EXPERIENCE MANAGER Pulse 77 07/23/2024 11:10 AM GUEST EXPERIENCE MANAGER Temperature 36.7 C (98.1 F) 07/23/2024 11:10 AM GUEST EXPERIENCE MANAGER Respiratory Rate 18 07/23/2024 11:10 AM GUEST EXPERIENCE MANAGER Oxygen Saturation 99% 07/23/2024 11:10 AM GUEST EXPERIENCE MANAGER Inhaled Oxygen Concentration - - Weight 68.9 kg (152 lb) 07/23/2024 11:10 AM GUEST EXPERIENCE MANAGER Height 162.6 cm (5' 4 ) 07/23/2024 11:10 AM GUEST EXPERIENCE MANAGER Body Mass Index 26.09 07/23/2024 11:10 AM GUEST EXPERIENCE MANAGER Plan of Treatment Upcoming Encounters Date Type Department Care Team (Late st Contact Info) Description 07/24/2024 8:40 AM GUEST EXPERIENCE MANAGER Office Visit [facility] Medical Group Family and Sports Medicine - [place] [address] [place] [address] Donavon Connor MD [address] [address] 07/25/2024 3:00 PM GUEST EXPERIENCE MANAGER Home Care Visit [address] [place] [address] [place] [address] Catie Zabala, PT [address] [place], [place] [address] 07/26/2024 8:00 AM GUEST EXPERIENCE MANAGER Home Care Visit [address] Care [facility] [place] [address] [place] [address] Juliana Mcgrath RN 07/30/2024 8:00 AM GUEST EXPERIENCE MANAGER Home Care Visit [address] [place] [address] [place] [address] Juliana Mcgrath RN 08/02/2024 8:00 AM GUEST EXPERIENCE MANAGER Appointment [address] [place] [address] [place] [address] Juliana Mcgrath RN 01/06/2025 11:00 AM CDT Office Visit [facility] Medical Group Multispecialty Care - [facility] [address] [facility], [address] [place] [address] Lai Anderson MD [address] [place] [address] Health Maintenance Due Date Last Done Comments Kidney Health Evaluation 1950 Pneumococcal Vaccine: 65+ Years (1 of 2 - PCV) 02/02/1954 DTaP, Tdap and Td Vaccines (1 - Tdap) 02/02/1967 Zoster Vaccines (1 of 2) 02/02/1998 RSV Immunization or 60+ Years (1 - 1-dose 75+ series) 02/02/2023 COVID-19 Vaccine (3 - season) 2024 11/13/2020, 10/22/2020 PHQ-2 (Physician [place]) 05/29/2024 04/19/2024 Hemoglobin A1C 08/30/2024 03/01/2024, 05/30, [...] Alvarez, RN Medical Devices Implanted Type Area Presentation Designer Device Identifier Shelf Expiration Date Model / Serial / Lot Mesh Bard Marlex 3 X 6 [id number] - [id number] Implanted:Qty : 1 on 12/28/2021 by Abundio Valverde MD at [facility] Mesh Right: Abdomen [employer] - [employer] [id number] 04/25/2026 [id number] / / [id number] Procedures Procedure Name Priority Date/Time Associated Diagnosis Comments IMAGE GENERIC 07/18/2024 IMAGE GENERIC 07/17/2024 IMAGE GENERIC 07/13/2024 IMAGE GENERIC 06/27/2024 CT GENERIC 06/26/2024 CT GENERIC 06/26/2024 ULTRASOUND GENERIC (SCAN ORDER) 06/26/2024 ECHO GENERIC (SCAN ORDER) 06/24/2024 IMAGE GENERIC Routine 06/22/2024 DIABETIC RETINOPATHY EXAM (NEGATIVE)(SCAN ORDER) Routine 04/15/2024 LIPID PANEL Routine 03/01/2024 9:46 AM CDT Primary hypertension Mixed hyperlipidemia Type 2 diabetes mellitus without complication, with long-term current use of insulin ([facility] HHS/HCC) HEMOGLOBIN, GLYCOSYLATED Routine 03/01/2024 9:46 AM CDT Primary hypertension Mixed hyperlipidemia Type 2 diabetes mellitus without complication, with long-term current use of insulin ([facility] HHS/HCC) from Last 3 Months or Most Recently Relevant to Health Maintenance Results * IMAGE GENERIC (07/18/2024) Only the most recent of5 resultswithin the time period is included. Anatomical Region Laterality Modality Other 07/18/2024 us Doc [facility] Scanned SCANNING Final [...] Med Group Scanned SCANNING Final Resu lt [facility] ONBASE * (ABNORMAL) HEMOGLOBIN, GLYCOSYLATED (03/01/2024 9:46 AM CDT) HGB A1C 8.3(H) <5.7 % 03/01/2024 12:43 PM CDT [facility] Comment: ADA GUIDELINES 2010 5.7 TO 6.4% INCREASED RISK OF DIABETES > OR = 6.5% CONSISTENT WITH DIABETES ESTIMATED AVG GLUCOSE 192 mg/dL 03/01/2024 12:43 PM CDT [facility] 03/01/2024 9:46 AM CDT Donavon Connor MD LABORATORY Final Result [facility] [address] [place] [address], [place] [phone] * (ABNORMAL) LIPID PANEL (03/01/2024 9:46 AM CDT) CHOLESTEROL 216(H) <200 MG/DL 03/01/2024 3:31 PM CDT [facility] TRIGLYCERIDES 345(H) <150 MG/DL 03/01/2024 3:31 PM CDT [facility] HDL 31(L) >40.0 MG/DL 03/04/2024 3:44 PM CDT [facility] LDL (CALCULATED) 116(H) <100 MG/DL 03/04/2024 3:44 PM CDT [facility] NON HDL CHOLESTEROL 185(H) <130 MG/DL 03/04/2024 3:44 PM T [facility] CHOL/HDL RATIO 7.0(H) 0.0 - 4.5 03/04/2024 3:44 PM CDT [facility] VLDL CALCULATION 69(H) 5 - 55 MG/DL 03/01/2024 3:31 PM CDT [facility] LIPID INTERPRETATION 03/01/2024 3:31 PM T [facility] Comment: NIH CONCENSUS REPORT RECOMMENDATIONS: ADULT CHILD LOW RISK: CHOLESTEROL <200 <170 TRIGLYCERIDE <150 --- HDL >=60 --- LDL <100 <110 BORDERLINE: CHOLESTEROL 200-239 170-199 TRIGLYCERIDE 150-199 --- HDL 40-59 --- LDL 100-159 110-129 HIGH RISK: CHOLESTEROL >=240 >=200 TRIGLYCERIDE >=200 --- HDL <40 --- LDL >=160 >=130 03/01/2024 9:46 AM CDT us Donavon Connor MD LABORATORY Final Result [facility] [address] [place] [address], from Last 3 Months or Most Recently Relevant to Health Maintenance Additional Health Concerns 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 09/21/2020 ESBL - Extended Spectrum Bet a-lactamase Comment:11/24/2020 +ESBL Rectal culture 11/26/2020 11/26/[address] [place] [address] [address] [place] [address] Advance Directives * Full Code (Latest Code Status on File) Date Activated Date Inactivated Comments 07/23/2024 1:11 PM * Full Code Date Activated Date Inactivated Comments 07/02/2024 4:10 PM 07/23/2024 1:11 PM * Full Code Date Activated Date Inactivated Comments 04/15/2024 8:50 AM 07/02/2024 4:10 PM * Full Code Date Activated Date Inactivated Comments 04/09/2024 7:54 PM 04/13/2024 3:34 PM * Full Code Date Activated Date Inactivated Comments 03/21/2024 6:03 PM 04/09/2024 11:52 AM Care Teams Vp Securities Relationship Specialty Start Date End Date Donavon Connor MD [address] [address] PCP - General FAMILY PRACTICE 04/13/20
--- OUTSIDE RECORDS SUMMARY | 2024-07-23 19:43 | XMS_ITS | Encounter Summary ---
Author Organization [facility] Address [facility] [place] [address] Care Team Providers Care Residential Roofer Helper Name Role Phone Donavon Connor MD Primary Care Provider [phone] Reason for Visit * Reason Comments Image (SCAN) Encounter Details Date Type Department Care Team (Latest Contact Info) Description 07/18/2024 Scan [facility] HE[facility] INFO SRVCS Scanned, [...] materials from doctor or pharmacy Often 07/02/2024 [facility] Utilities Answer Date Recorded In [...] than three times a week 12/30/2022 Attends [employer] Not on file 12/30 Do you belong to any clubs o r organizations such as restorationist groups, unions, fraternal or athletic groups, or [...] place to sleep or slept in a retirement (including now)? No 06/24/2023 Housing Stability Vital [...] in the past 12 m [facility], were you homeless or living in a retirement (including now)? No 04/10/2024 Sex and Gender Information Value Date Recorded Sex Assigned at Male 04/09/2024 9:16 PM CHIEF LEARNING OFFICER Legal Sex Male 8:36 PM CDT Gender Identity Male 04/09/2024 9:16 PM CHIEF LEARNING OFFICER Sexual Orientation Straight 04/09/2024 9: 16 PM CHIEF LEARNING OFFICER documented as of this encounter Functional Status * Are you deaf or do you have serious difficulty hearing Answer Date of Assessment Author Status No 04/09/2024 9:27 PM CHIEF LEARNING OFFICER Shayla Swan RN Active * Are you blind or do you have serious difficulty seeing, even when wearing glasses? Answer Date of Assessment Author Status No 04/09/2024 9:27 PM CHIEF LEARNING OFFICER Shayla Swan RN Active * Do you have serious difficulty walking or climbing stairs? Answer Date of Assessment Author Status No 04/09/2024 9:27 PM CHIEF LEARNING OFFICER Shayla Swan RN Active * Do you have difficulty dressing or bathing? Answer Date of Assessment Author Status No 04/09/2024 9:27 PM CHIEF LEARNING OFFICER Shayla Swan RN Active * Because of [...] st Contact Info) Description 07/24/2024 8:40 AM CHIEF LEARNING OFFICER Office Visit [facility] Medical Group Family and Sports Medicine - [address] [address] Donavon Connor MD [address] [address] 07/25/2024 3:00 PM CHIEF LEARNING OFFICER Home Care Visit [address] [place] [address] Catie Zabala, PT [address] [place], [place] [phone] 07/26/2024 8:00 AM CHIEF LEARNING OFFICER Home Care Visit [facility] Home Care [address] [place] [address] Juliana Mcgrath, RN 07/30/2024 8:00 AM CHIEF LEARNING OFFICER Home Care Visit [facility] Care [address] [place] [address] Juliana Mcgrath, RN 08/02/2024 8:00 AM CHIEF LEARNING OFFICER Appointment [facility] Care [address] [place] [address] [place] [address] Juliana Mcgrath RN 01/06/2025 11:00 AM CDT Office Visit [facility] Medical Group Multispecialty Care - [facility] 3 [facility], [address] [place] [address] Lai Anderson MD [address] [place] [address] documented as of this encounter Goals Goal Patient Goal Type Associated Problems Recent Progress Patient-Stated? Author Family - family caregiver with be involved in care transitions and discharge planning Lifestyle No Beth Alvarez, RN documented as of this encounter Procedures Procedure Name Priority Date/Time Associated Diagnosis Comments IMAGE GENERIC 07/18/2024 documented in this encounter Results * IMAGE GENERIC (07/18/2024) Anatomical Region Laterality Modality Other 07/18/2024 us [...] Total Score: 0 04/19/20 24 9:36 AM CHIEF LEARNING OFFICER documented as of this encounter Care Teams Residential Roofer Helper Relationship Specialty Start Date End Date Donavon Connor MD [address] [facility] [address] [place] [address] PCP - General FAMILY PRACTICE 04/13/20 documented as of this encounter
--- OUTSIDE RECORDS SUMMARY | 2024-07-23 19:43 | XMS_ITS | Referral Summary ---
Author Organization [facility] Address [address] [place] [address] Care Team Providers Care Commercial Lines Account Assistant Name Role Phone Unknown, Provider Primary Care Provider Donavon Holguin MD Unavailable [phone] Source Comments [facility],non-owned Affiliates and Associated Physician Practices is amultiple site organization consisting of ambulatory clinics and hospital sitesin [place], [place], [place] and [place]. This disclosure is being madepursuant to the Care Everywhere program and may not contain all information available regarding this patient. Last updated 18.[facility] Allergies Active Allergy Reactions Criticality Noted Date [...] tablet 01/01/2023 Active Blood Glucose Monitoring Suppl (Banjo Verio Flex System) w/Device KIT USE DIRECTED THREE TIMES DAILY 01/01/2023 Active erythromycin (Romycin) 5 MG/GM ophthalmic ointment 03/23/2023 Active Muzico Internationaluch Ultra test strip USE TO TEST FOUR TIMES DAILY 03/27/2023 Active TRUEplus 5-Bevel Pen [place] 32G X 4 MM MISC USE TO INJECT INSULIN UP TO 5 TIMES DAILY 07/11/2023 Active TRUEplus Insulin Syringe 30G X 5/16 0.5 ML MISC USE DIRECTED EVERY DAY 01/01/2023 Active Lancets (Prescribe WellnessTOUCH DELICA PLUS 33G EXTRA FINE LANCET) TEST [...] original. Could not [facility] [place] afford to provide a Home Health nurse [...] Follow up in: three months with PCP, Atomic Welder, Manager Applied, Assembly Technician, Established eye career education teacher and Bleach Plant Operator Last Assessment & Plan: Not on [...] Follow up in: three months with PCP, Atomic Welder, Manager Applied, Assembly Technician, Established eye career education teacher and Bleach Plant Operator Infected wound 04/12/2020 Sacral wound 02/19/2020 [...] Description 11/27/2024 10:30 AM CDT Office Visit [facility] - Ophthalmology [address] [place] [address] Medical Devices Implanted Type Area Canine Deputy Device Identifier Shelf Expiration Date Model / Serial / Lot Gd Pin Orth 450mm 3.2mm Cocr Xtd Acc Implanted:Qty: 1 on 01/31/2020 by Dipesh Felix MD at [facility] Right: Sacral Iliac Joint [employer] [id number] / / Wshr 12.7mm 6.5mm Set Unv Orth Ss 1mm Implanted:Qty: 1 on 01/31/2020 by Dipesh Felix MD at [facility] Right: Sacral Iliac Joint [employer] [id number] / / Cannulated Screw, 4.0mm X40mm 1/2 Thread Implanted:Qty: 2 on 01/31/2020 by Dipesh Felix MD at [facility] Right: Ankle [id number] / / 8.0 X 9.5 Fully Threaded Screw Implanted:Qty: 1 on 01/31/2020 by Dipesh Felix MD at [facility] [id number] / / Plate 8 Hl Unv Matrixrib Ti Bone Nonster Implanted:Qty: 5 on 02/05/2020 by Dipesh Hernandez MD at [facility] Right: Chest Wall [employer] .009 / / 2.7 Mm Matrixrib Locking Screw, Self-Drilling, 11mm Implanted:Qty: 35 on 02/05/2020 by Dipesh Hernandez MD at [facility] Right: Chest Wall [id number] 1 / / 2.7 Mm Matrixrib Locking Screw, Self-Drilling, 12mm Implanted:Qty: 2 on 02/05/2020 by Dipesh Hernandez MD at [facility] Right: Chest Wall [id number] 1 / / Plate 16 Hl Precontr Lck Lopro 4th Rb Implanted:Qty: 1 on 02/05/2020 by Dipesh Hernandez MD at [facility] Right: Chest Wall [employer] [id number] / / Clareon Uv Iol Ccaoto +23.0d Implanted:Qty: 1 on 09/28/2023 by Simeon Cannon MD at [facility] Left: Eye [employer] 02/20/2027 CCAOTO+23.0D / [id number] / N/A [employer]on Iol Aspheric Uv Absorbing Iol Implanted:Qty: 1 on 10/12/2023 by Simeon Cannon MD at [facility] Right: Eye [employer] 02/18/2027 CCA0T0 +23.5D / [id number] / NA Procedures Procedure Name Priority Date/Time Associated Diagnosis Comments COMPREHENSIVE METABOLIC PANEL STAT 06/30/2020 2:29 PM SLP TEACHER HEMOGLOBIN A1C Routine 04/18/2020 11:09 AM SLP TEACHER from Last 3 Months or Most Recently Relevant to Health Maintenance Results * (ABNORMAL) COMPREHENSIVE METABOLIC PANEL (06/30/2020 2:29 PM SLP TEACHER) BUN 29(H) 7 - 26 mg/dL 06/30/2020 3:00 PM [facility] Creatinine 1.2 0.6 - 1.2 mg/dL 06/30/2020 3:00 PM [facility] Sodium 138 136 - 145 mmol/L 06/30/2020 3:00 PM [facility] Potassium 3.7 3.5 - 4.5 mmol/L 06/30/2020 3:00 PM [facility] Chloride 96(L) 98 - 107 mmol/L 06/30/2020 3:00 PM [facility] CO2 28 22 - 29 mmol/L 06/30/2020 3:00 PM [facility] Glucose 144(H) 70 - 115 mg/dL 06/30/2020 3:00 PM [facility]LP TE[facility]ER [facility] Calcium 8.8 8.4 - 10.2 mg/dL 06/30/2020 3:00 PM [facility] Protein Total 6.5 6.0 - 8.3 g/dL 06/30/2020 3:00 PM [facility] Albumin 2.8(L) 3.4 - 5.0 g/dL 06/30/2020 3:00 PM [facility] Bilirubin Total 0.4 0.2 - 1.2 mg/dL 06/30/2020 3:00 PM [facility] Alkaline Phosphatase 108 40 - 150 Units/L 06/30/2020 3:00 PM [facility] ALT 20 0 - 55 Units/L 06/30/2020 3:00 PM [facility] AST 17 5 - 34 Units/L 06/30/2020 3:00 PM [facility] Anion Gap 18 8 - 18 06/30/2020 3:00 PM [facility] BUN/Creatinine Ratio 24(H) 7 - 23 06/30/2020 3:00 PM [facility] Osmolality Calculated 294 270 - 300 mOsm/kg 06/30/2020 3:00 PM [facility] Albumin/Globulin Ratio 0.8(L) 1.1 - 2.3 06/30/2020 3:00 PM [facility] eGFR 60(L) >60 mL/min/1.7 3 m2 06/30/2020 3:00 PM [facility] Blood BLOOD SPECIMEN / Unknown Venipuncture / Unknown 06/30/2020 2:29 PM SLP TEACHER 06/30/2020 2:37 PM [facility] Shaggy James MD LAB - CHEMISTRY KATHY CAMPA [facility] [address] [place] [address] [phone] * (ABNORMAL) HEMOGLOBIN A1C (04/18/2020 11:09 AM [facility]) Hemoglobin A1c 7.6(H) 4.4 - 6.3 % 04/19/2020 9:00 AM [facility] Estimated Average Glucose 171 mg/dL 04/19/2020 9:00 AM [facility] Comment: HbA1c Interpretation: Treatment target values recommended by ADA and other clinical organizations should be used to evaluate metabolic control in patients. Treatment Target Values: Normal : < 5.7% Pre-diabetes: 5.7-6.4% Diabetes: Equal to or greater than 6.5% Reference: [place] Diabetes Association Standards of Care in Diabetes -2014 In patients 70 years and older consider HbA1c target range of 7.0-7.5% Reference: Diabetes Mellitus in Older People: Position Statement on behalf of the International Association of Gerontology and Geriatrics (IAGG), the Diabetes Working Green Party for Older People (EDWPOP), and the International Task Force of Experts in Diabetes. Ritesh Srinivasan, et al. J [place] Medical Directors Association. 2012 Test results diagnostic of diabetes should be repeated for confirmation. The Sebia Capillary 2 assay for the measurement of HbA1c is a National Glycohemoglobin Standardization Program (NGSP)certified method. Blood BLOOD SPECIMEN / Unknown Lab Venipuncture / Unknown 04/18/2020 11:09 AM SLP TEACHER 04/18/2020 11:40 AM SLP TEACHER Narrative [facility] - 04/19/2020 9:00 AM SLP TEACHER note^note Zhnae Granger MD LAB - CHEMISTRY OR DERABLES [facility] [address] [place] [address], [facility] [phone] from Last 3 Months or Most Recently [...] 3:26 PM 02/19/2020 5:52 PM Care Teams Commercial Lines Account Assistant Relationship Specialty Start Date End Date Unknown, Provider PCP - General 08/30/23 Donavon Connor MD Family Medicine 08/30/23
--- OUTSIDE RECORDS SUMMARY | 2024-07-23 19:43 | XMS_ITS | Encounter Summary ---
Author Organization [facility] Address [facility] [place] [address] Care Team Providers Care Spud Grader Name Role Phone Donavon Connor MD Primary Care Provider [phone] Encounter Details Date Type Department Care Team (Late st Contact Info) Description 07/23/2024 Plan of Care Documentation [facility] [address] [place] [address] [place] [address] Social History Tobacco Use Types Packs/Day Years [...] materials from doctor or pharmacy Often 07/23/2024 [facility] Utilities Answer Date Recorded In the past 12 months has e [employer], gas, oil, or water company threatened to [...] than three times a week 12/30/2022 Attends Yarsanism Services Not on file 12/30 Do you belong to any clubs o r organizations such as shinto groups, unions, fraternal or athletic groups, or [...] any time in the past 12 m [facility], were you homeless or living in a intermediate (including now)? No 04/10/2024 Sex and Gender Information Value Date Recorded Sex Assigned at Male 04/09/2024 9:16 PM MANAGER OF ENGINEERING Legal Sex Male 8:36 PM CDT Gender Identity Male 04/09/2024 9:16 PM MANAGER OF ENGINEERING Sexual Orientation Straight 04/09/2024 9: 16 PM MANAGER OF ENGINEERING documented as of this encounter Functional Status * Are you deaf or do you have serious difficulty hearing Answer Date of Assessment Author Status No 04/09/2024 9:27 PM MANAGER OF ENGINEERING Shayla Swan RN Active * Are you [...] st Contact Info) Description 07/24/2024 8:40 AM MANAGER OF ENGINEERING Office Visit [facility] Family and Sports Medicine - [address] [address] Donavon Connor MD [address] [address] 07/25/2024 3:00 PM MANAGER OF ENGINEERING Home Care Visit [address] [place] [address] Catie Zabala, PT [address] [place], [place] [id number] 07/26/2024 8:00 AM MANAGER OF ENGINEERING Home Care Visit [facility] Home Care [address] [facility] [place] [address] [place] [address] Juliana Mcgrath, JEREMY 07/30/2024 8:00 AM MANAGER OF ENGINEERING Home Care Visit [facility] [address] [place] [address] Juliana Mcgrath RN 08/02/2024 8:00 AM MANAGER OF ENGINEERING Appointment [facility] [address] [place] [address] [place] [address] Juliana Mcgrath RN 01/06/2025 11:00 AM CDT Office Visit [facility] Multispecialty [facility] - [facility] [address], [address] [place] [address] Lai Anderson MD [address] [place] [address] documented as of this encounter Goals Goal [...] Total Score: 0 04/19/20 24 9:36 AM MANAGER OF ENGINEERING documented as of this encounter Care Teams Spud Grader Relationship Specialty Start Date End Date Donavon Connor MD [address] [facility] [address] [place] [address] PCP - General FAMILY PRACTICE 04/13/20 documented as of this encounter
--- OUTSIDE RECORDS SUMMARY | 2024-07-23 19:43 | XMS_ITS | Patient Health Summary ---
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 PM . Narrative 04/20/2020 12:31 PM NUCLEAR OFFICER EXAMINATION: XR HIP RIGHT 2VW OR MORE [...] identified. Dictated by Jerzy Chaudhry MD (residential collections). I, Dr. CHRISTINA HERNANDEZ have personally reviewed and interpreted this examination/study. This report was electronically signed by CHRISTINA HERNANDEZ on 04/20/2020 12:31 PM . Sandoval Chávez MD DIAGNOSTIC IMAGING O RDERABLES * CULTURE BLOOD (04/18/2020 11:22 AM NUCLEAR OFFICER) Only the most recent of14 resultswithin the time period is included. Culture No growth day 5 CANDACE 04/23/2020 2:01 PM NUCLEAR OFFICER [facility] Blood PERIPHERAL BLOOD / Unknown Lab Venipuncture / Unknown 04/18/2020 11:22 AM NUCLEAR OFFICER 04/18/2020 11:36 AM NUCLEAR OFFICER Chad Rocha MD LAB - MICROBIOLOGY O RDERABLES [facility] [address] [place] [address], [facility] [phone] * (ABNORMAL) HEMOGLOBIN A1C (04/18/2020 11:09 AM NUCLEAR OFFICER) Only the most recent of2 resultswithin the time period is included. Hemoglobin A1c 7.6(H) 4.4 - 6.3 % 04/19/2020 9:00 AM [facility] Estimated Average Glucose 171 mg/dL 04/19/2020 9:00 AM [facility] Comment: HbA1c Interpretation: Treatment target values recommended by ADA and other clinical organizations should be used to evaluate metabolic control in patients. Treatment Target Values: Normal : < 5.7% Pre-diabetes: 5.7-6.4% Diabetes: Equal to or greater than 6.5% Reference: [place] Diabetes Association Standards of Care in Diabetes -2014 In patients 70 years and older consider HbA1c target range of 7.0-7.5% Reference: Diabetes Mellitus in Older People: Position Statement on behalf of the International Association of Gerontology and Geriatrics (IAGG), the Diabetes Working Green Party for Older People (EDWPOP), and the International Task Force of Experts in Diabetes. Ritesh Srinivasan et al. J Citizen [place] Medical Directors Association. 2012 Test results diagnostic of diabetes should be repeated for confirmation. The Sebia Capillary 2 assay for the measurement of HbA1c is a National Glycohemoglobin Standardization Program (NGSP)certified method. Blood BLOOD SPECIMEN / Unknown Lab Venipuncture / Unknown 04/18/2020 11:09 AM NUCLEAR OFFICER 04/18/2020 11:40 AM NUCLEAR OFFICER Narrative [facility] - 04/19/2020 9:00 AM NUCLEAR OFFICER note^note Zhane Granger MD LAB - CHEMISTRY OR DERABLES Performing Organization Address City/[facility]/ZIP Co de Phone Number [address] [address], [facility] [phone] * FOLATE (04/18/2020 11:09 AM NUCLEAR OFFICER) Folate 10.4 7.0 - 31.4 ng/mL 04/18/2020 12:39 PM NUCLEAR OFFICER [facility] Blood BLOOD SPECIMEN / Unknown Lab Venipuncture / Unknown 04/18/2020 11:09 AM NUCLEAR OFFICER 04/18/2020 11:40 AM NUCLEAR OFFICER Zhane Granegr MD LAB - CHEMISTRY OR DERABLES Performing Organization Address City/[facility]/ZIP Co de Phone Number [address] [address], [place] [phone] * VITAMIN B12 (04/18/2020 11:09 AM NUCLEAR OFFICER) Only the most recent of2 resultswithin the time period is included. Vitamin B12 239 213 - 816 pg/mL 04/18/2020 12:39 PM NUCLEAR OFFICER [facility] Blood BLOOD SPECIMEN / Unknown Lab Venipuncture / Unknown 04/18/2020 11:09 AM NUCLEAR OFFICER 04/18/2020 11:40 AM NUCLEAR OFFICER Zhane Granger MD LAB - CHEMISTRY OR DERABLES Performing Organization Address City/[facility]/ZIP Co de Phone Number [address] [address] [phone] * XR CHEST 1VW PORTABLE (04/18/2020 5:50 AM NUCLEAR OFFICER) Only the most recent of18 resultswithin the time period is included. Anatomical Region Laterality Modality Chest Radiographic Tavon ging 04/18/2020 10:3 0 AM NUCLEAR OFFICER Impressions 04/19/2020 12:14 PM NUCLEAR OFFICER FINDINGS/IMPRESSION: There is redemonstrated internal fixation of multiple right rib fractures. The lungs are hypoinflated with bronchovascular crowding. There is no focal consolidation, pleural effusion, or pneumothorax. The cardiomediastinal silhouette is normal. Displaced fractures of the left clavicle and multiple left ribs are grossly unchanged in osseous alignment. Dictated by Lobito Han MD (residential collections). Dr. CHRISTINA Bahena have personally reviewed and interpreted this examination/study. This report was electronically signed by CHRISTINA HERNANDEZ on 04/19/2020 12:14 PM . Narrative 04/19/2020 12:14 PM NUCLEAR OFFICER EXAMINATION: XR CHEST 1VW PORTABLE HISTORY: [id number]: [...] alignment. Dictated by Lobito Han MD (residential collections). Dr. CHRISTINA Bahena have personally reviewed and interpreted this examination/study. This report was electronically signed by CHRISTINA HERNANDEZ on 04/19/2020 12:14 PM . Chad Rocha MD DIAGNOSTIC IMAGING O RDERABLES * (ABNORMAL) URINALYSIS W/MICROSCOPIC NO CULTURE (04/18/2020 5:46 AM NUCLEAR OFFICER) Only the most recent of4 resultswithin the time period is included. Color UA Straw Straw, Yellow, Colorless 04/18/2020 6:23 AM [facility] Clarity UA Clear Clear, Slt Cloudy 04/18/2020 6:23 AM [facility] Specific [place] UA 1.008 1.005 - 1.030 04/18/2020 6:23 AM [facility] pH UA 7.0 5.0 - 8.0 pH 04/18/2020 6:23 AM [facility] Protein UA Negative Negative mg/dL 04/18/2020 6:23 AM [facility] Glucose UA 1+(A) Negative mg/dL 04/18/2020 6:23 AM [facility] Ketone UA Negative Negative mg/dL 04/18/2020 6:23 AM [facility] Bilirubin UA Negative Negative mg/dL 04/18/2020 6:23 AM [facility] Blood UA Negative Negative 04/18/2020 6:23 AM [facility] Nitrite UA Negative Negative 04/18/2020 6:23 AM [facility] Leukocyte Esterase Negative Negative 04/18/2020 6:23 AM [facility] Urobilinogen UA Negative Negative mg/dL 04/18/2020 6:23 AM [facility] RBC UA None Seen None Seen, 0-2, 3-5 /HPF 04/18/2020 6:23 AM [facility] WBC UA None Seen None Seen, 0-5 /HPF 04/18/2020 6:23 AM [facility] Squamous Epithelial Cells UA None Seen None Seen, 0-2 /HPF 04/18/2020 6:23 AM [facility] Urine URINE SPECIMEN OBTAINED BY CLEAN CATCH PROCEDURE / Unknown Collection / Unknown 04/18/2020 5:46 AM NUCLEAR OFFICER 04/18/2020 6:03 AM [facility] - 04/18/2020 6:23 AM NUCLEAR OFFICER note^note Chad Rocha MD LAB - URINALYSIS ORD ERABLES Performing Organization Address [facility]/ZIP Co de Phone Number [address] [address], [facility] [phone] * PTT [facility] (04/17/2020 11:38 PM NUCLEAR OFFICER) Only the most recent of19 resultswithin the time period is included. APTT 26.4 23.0 - 38.4 Seconds 04/18/2020 12:07 AM [facility] Comment:Suggested therapeuti c range for full dose I.V. unfractionated heparin therapy for venous thromboembolism is 71 to 109 seconds. Blood BLOOD SPECIMEN / Unknown Lab Venipuncture / Unknown 04/17/2020 11:38 PM NUCLEAR OFFICER 04/17/2020 11:59 PM [facility] - 04/18/2020 12:07 AM NUCLEAR OFFICER note^note Chad Rocha MD LAB - COAGULATION OR DERABLES Performing Organization Address [facility] Co de Phone Number [address] [address], [facility] [phone] * PT-INR [facility] (04/17/2020 11:38 PM NUCLEAR OFFICER) Only the most recent of8 resultswithin the time period is included. PT 12.8 12.1 - 14.8 Seconds 04/18/2020 12:06 AM [facility] INR 1.0 See Comment 04/18/2020 12:06 AM [facility] Comment:The suggested therap eutic range for standard coumadin (warfarin) therapy is an INR of 2.0-3.0. For high-risk patients (Mechanical Mitral Valve Prosthesis, etc.), the suggested prophylactic therapeutic range is an INR of 2.5-3.5. Blood BLOOD SPECIMEN / Unknown Lab Venipuncture / Unknown 04/17/2020 11:38 PM NUCLEAR OFFICER 04/17/2020 11:59 PM [facility] - 04/18/2020 12:06 AM NUCLEAR OFFICER note^note Chad Rocha MD LAB - COAGULATION OR DERABLES Performing Organization Address City/[facility]/ZIP Co de Phone Number [address] [address], [place] [phone] * TROPONIN I (04/17/2020 11:38 PM NUCLEAR OFFICER) Only the most recent of3 resultswithin the time period is included. Troponin I <0.010 <0.032 ng/mL 04/18/2020 12:26 AM NUCLEAR OFFICER [facility] Blood BLOOD SPECIMEN / Unknown Lab Venipuncture / Unknown 04/17/2020 11:38 PM NUCLEAR OFFICER 04/17/2020 6:15 PM NUCLEAR OFFICER Chad Rocha MD LAB - CHEMISTRY KATHY CAMPA Performing Organization Address City/[facility] Co de Phone Number [address] [address], [facility] [phone] * LACTIC ACID BLOOD (04/17/2020 11:38 PM NUCLEAR OFFICER) Only the most recent of2 resultswithin the time period is included. Pathologist [facility] Lactic Acid-Stat 1.9 0.5 - 2.2 mmol/L 04/18/2020 12:18 AM NUCLEAR OFFICER [facility] Blood BLOOD SPECIMEN / Unknown Lab Venipuncture / Unknown 04/17/2020 11:38 PM NUCLEAR OFFICER 04/17/2020 6:15 PM NUCLEAR OFFICER Chad Rocha MD LAB - CHEMISTRY KATHY CAMPA [address] [address], [place] [phone] * (ABNORMAL) C DIFFICILE GD AG + TOXIN A+B (03/21/2020 12:42 PM CDT) Interpretation C difficile Indeterm inate(A) Negative for toxigenic C. difficile 03/21/2020 8:57 PM CDT [facility] Stool STOOL SPECIMEN / Unknown Collection / Unknown 03/21/2020 12:42 PM CDT 03/21/2020 12:55 PM CDT Narrative [facility] - 03/21/2020 8:57 PM CDT Indeterminate results reflex to a C. difficile by PCR test. See separate report. Maycol Matthews MD LAB - MICROBIOLOGY O PEMA Performing Organization Address City/[facility]/ZIP Co de Phone Number [facility] [address] [place] [address], [facility] [phone] * (ABNORMAL) C DIFFICILE BY PCR (03/21/2020 12:42 PM CDT) C difficile Toxin B Gene Detected( A) Not detected, Invalid 03/22/2020 6:19 PM CDT [facility] Stool STOOL SPECIMEN / Unknown Collection / Unknown 03/21/2020 12:42 PM CDT 03/21/2020 12:55 PM CDT Maycol Matthews MD LAB - MICROBIOLOGY O PEMA Performing Organization Address [facility]/ZIP Co de Phone Number [facility] [address] [place] [address], [facility] [phone] * CT ABDOMEN PELVIS WO CONTRAST (03/19/2020 [...] Report dictated by Nicolás Kingston MD (residential collections). I, Dr. KAYLENE CAO M.D. have personally [...] Report dictated by Nicolás Kingston MD (residential collections). Dr. KAYLENE Bahena M.D. have personally reviewed [...] Not Established mmol/L 03/16/2020 12:02 PM CDT [facility] Urine URINE SPECIMEN OBTAINED BY CLEAN CATCH PROCEDURE / Unknown Collection / Unknown 03/16/2020 11:35 AM CDT 03/16/2020 11:46 AM CDT Maycol Matthews MD LAB - URINE CHEMISTR Y ORDERABLES [address] [address], [facility] [phone] * UREA NITROGEN URINE RANDOM (03/16/2020 11:35 AM CDT) Urea Nitrogen Random Urine 396 Not Established mg/dL 03/16/2020 12:02 PM CDT [facility] Urine URINE SPECIMEN OBTAINED BY CLEAN CATCH PROCEDURE / Unknown Collection / Unknown 03/16/2020 11:35 AM CDT 03/16/2020 11:46 AM CDT Maycol Matthews MD LAB - URINE CHEMISTR Y ORDERABLES Performing Organization Address [facility]/ZIP Co de Phone Number [address] [address], [place] [phone] * CREATININE URINE RANDOM (03/16/2020 11:35 AM CDT) Creatinine Urine 60 Not Established mg/dL 03/16/2020 12:02 PM CDT [facility] Comment:Result obtained by magui tellez. Urine URINE SPECIMEN OBTAINED BY CLEAN CATCH PROCEDURE / Unknown Collection / Unknown 03/16/2020 11:35 AM CDT 03/16/2020 11:46 AM CDT Maycol Matthews MD LAB - URINE CHEMISTR Y ORDERABLES Performing Organization Address [facility] Co de Phone Number [address] [address], [place] [phone] * CULTURE URINE (03/15/2020 4:57 PM CDT) Only the most recent of4 resultswithin the time period is included. Culture Urine No growth (<100 CFU/mL) CANDACE 03/17/2020 1:20 AM CDT [facility] Urine URINE SPECIMEN OBTAINED VIA INDWELLING URINARY CATHETER / Unknown Collection / Unknown 03/15/2020 4:57 PM CDT 03/15/2020 6:02 PM CDT Geoffrey Rogers MD LAB - MICROBIOLOGY O RDERABLES Performing Organization Address City/[facility]/ZIP Co de Phone Number [facility] [address] [place] [address], [facility] [phone] * (ABNORMAL) URINALYSIS REFLEX TO MICROSCOPIC NO CULTURE (03/15/2020 1:28 PM CDT) Color UA Deana(A) Straw, Yellow, Colorless 03/15/2020 2:11 PM [facility] Clarity UA Turbid(A) Clear, Slt Cloudy 03/15/2020 2:11 PM [facility] Specific [place] UA 1.023 1.005 - 1.030 03/15/2020 2:11 PM [facility] pH UA 5.0 5.0 - 8.0 pH 03/15/2020 2:11 PM [facility] Protein UA 2+(A) Negative mg/dL 03/15/2020 2:11 PM [facility] Glucose UA Negative Negative mg/dL 03/15/2020 2:11 PM [facility] Ketone UA Trace(A) Negative mg/dL 03/15/2020 2:11 PM [facility] Bilirubin UA Negative Negative mg/dL 03/15/2020 2:11 PM [facility] Blood UA 3+(A) Negative 03/15/2020 2:11 PM [facility] Nitrite UA Negative Negative 03/15/2020 2:11 PM [facility] Leukocyte Esterase 3+(A) Negative 03/15/2020 2:11 PM [facility] Urobilinogen UA Negative Negative mg/dL 03/15/2020 2:11 PM [facility] RBC UA >100(A) None Seen, 0-2, 3-5 /HPF 03/15/2020 2:11 PM [facility] WBC UA >100(A) None Seen, 0-5 /HPF 03/15/2020 2:11 PM [facility] WBC Clumps Many(A) None /HPF 03/15/2020 2:11 PM [facility] Bacteria UA 1+(A) None, Trace /HPF 03/15/2020 2:11 PM [facility] Squamous Epithelial Cells UA None Seen None Seen, 0-2 /HPF 03/15/2020 2:11 PM [facility] Mucus UA 1+ None, 1+ /LPF 03/15/2020 2:11 PM CDT [facility] Amorphous Crystals Many(A) Rare, Occasional, Few, Moderate, None /HPF 03/15/2020 2:11 PM CDT [facility] Urine URINE SPECIMEN OBTAINED VIA INDWELLING URINARY CATHETER / Unknown Collection / Unknown 03/15/2020 1:28 PM CDT 03/15/2020 1:34 PM CDT Narrative [facility] - 03/15/2020 2:11 PM CDT Geoffrey Rogers MD LAB - URINALYSIS ORD ERABLES [address] [address], [facility] [phone] * HIV-1 HIV-2 ANTIGEN/ANTIBODY (03/03/2020 5:25 AM CDT) HIV Antigen/Antibod y 1 & 2 Non-reacti ve Non-react tristan 03/03/2020 2:42 PM CDT [facility] Comment:Neither HIV-1 p24 An tigen nor HIV-1/HIV-2 Antibodies are detected. Blood BLOOD SPECIMEN / Unknown Lab Venipuncture / Unknown 03/03/2020 5:25 AM CDT 03/03/2020 2:10 PM CDT Geoffrey Rogers MD LAB - HEMATOLOGY ORD ERABLES Performing Organization Address City/[facility]/ZIP Co de Phone Number [address] [address], [facility] [phone] * VANCOMYCIN LEVEL RANDOM (03/03/2020 5:25 AM CDT) Only the most recent of4 resultswithin the time period is included. Vancomycin Random 17.9 Therapeutic Ranges not established for random specimens mcg/mL 03/03/2020 6:23 AM CDT [facility] Blood BLOOD SPECIMEN / Unknown Lab Venipuncture / Unknown 03/03/2020 5:25 AM CDT 03/03/2020 5:52 AM CDT Christina Briseno DO LAB - CHEMISTRY ORDE KATHERYN Performing Organization Address [facility] Co de Phone Number [address] [address], [place] [phone] * (ABNORMAL) IRON BLOOD (03/02/2020 2:52 AM CDT) Iron 29(L) 50 - 175 mcg/dL 03/02/2020 3:45 AM CDT [facility] Blood BLOOD SPECIMEN / Unknown Venipuncture / Unknown 03/02/2020 2:52 AM CDT 03/02/2020 3:28 AM CDT Karyna Marshall DO LAB - CHEMISTRY ORDKaren CAMPA Performing Organization Address [facility] Co de Phone Number [address] [address], [place] [phone] * (ABNORMAL) FERRITIN (03/02/2020 2:52 AM CDT) Ferritin 443(H) 22 - 275 ng/mL 03/02/2020 4:03 AM CDT [facility] Blood BLOOD SPECIMEN / Unknown Venipuncture / Unknown 03/02/2020 2:52 AM CDT 03/02/2020 3:28 AM CDT Karyna Marshall DO LAB - CHEMISTRY KATHY CAMPA Performing Organization Address [facility] Co de Phone Number [address] [address], [place] [phone] * ETT LINE PERFORMABLE (02/28/2020 10:30 PM CDT) Narrative Amina Frank - 02/28/2020 10:30 PM CDT Amina Frank MD 02/28/2020 10:30 PM Endotracheal Tube Placement: Patient Location: OR. Procedure: intubation (81259). Procedure Section: Sedation: under general anesthesia. Indications [...] Event Date/Time: 02/26/2020 10:35 PM Procedure: intubation (18623). Procedure Section: Sedation: under general anesthesia. Indications [...] skin jarrod CANDACE 03/01/2020 1:28 PM CDT [facility] Gram Stain No polymorphonuclear cells(AA) 03/01/2020 1:28 PM CDT [facility] Gram Stain Moderate Gram-positive cocci(AA) 03/01/2020 1:28 PM CDT [facility] Gram Stain Moderate Gram-negative bacilli(AA) 03/01/2020 1:28 PM CDT [facility] Microbiology ENTIRE SACRAL VERTEBRAL COLUMN / Unknown Collection / Unknown 02/24/2020 12:16 PM CDT 02/24/2020 12:23 PM CDT Narrative [facility] - 03/01/2020 1:28 PM CDT 02/24/2020 9:24 PM Ysabel Ortega RN notified. Read back and acknowledged results. Organism seen on initial gram stain may be anaerobic or not viable for aerobic growth Pablito Kan MD LAB - MICROBIOLOGY O RDERABLES [facility] [address] [place] [address], [facility] [phone] * PREPARE (CROSSMATCH) RBC UNIT(S), 2 Units (02/24/2020 6:46 AM CDT) Only the most recent of5 resultswithin the time period is included. Unit Description AS1 LR PRBC [facility]OD [facility] LAB Unit ABO B [facility] Unit POS [facility] Product Number R02 [facility] B LOOD BANK LAB Unit Donor # [id number] [facility] [id number] [facility] OD BANK LAB Blood Type Barcode 7300 [facility] B[facility]OD [facility] LAB Expiration Date S BLOOD BANK LAB Unit Description AS1 LR PRBC [facility] B[facility]OD [facility] LAB Unit ABO B [facility] BLOOD [facility] LAB Unit POS [facility] BLOOD [facility]ANK LAB Product Number R02 [facility] B LOOD BANK LAB Unit Donor # [id number] [facility] BLOOD [facility]ANK LAB Unit Status released [facility] BLOO D BANK LAB Product Code [id number] [facility] BLO OD BANK LAB Blood Type Barcode 7300 [facility] BLOOD [facility] LAB Expiration Date S BLOOD BANK LAB Blood Bank BLOOD SPECIMEN / Unknown 02/24/2020 6:46 AM CDT 02/24/2020 7:02 AM CDT Adriana Funes WRAPPING MACHINE TENDER-SCRUB TECHNICIAN LAB - BLOOD BANK ORDERABLES [facility] B[facility]OD [facility]ANK LAB [address] [place] [address], [place] [phone] * SARS-COV-2 (COVID-19) IN HOUSE (02/23/2020 9:49 PM CDT) Only the most recent of2 resultswithin the time period is included. COVID-19 PCR Not detected Not detected, Invalid 02/24/2020 7:49 PM CDT [facility] Microbiology SPECIMEN FROM NASOPHARYNGEAL STRUCTURE / Unknown Collection / Unknown 02/23/2020 9:49 PM CDT 02/23/2020 9:56 PM CDT Narrative [facility] - 02/24/2020 7:49 PM CDT This Real Time RT-PCR assay was developed and its performance characteristics determined by [facility]. This test has been authorized [...] Violet Thorpe MD LAB - MICROBIOLOGY ORDERABLES [facility] [address] [place] [address] [facility] [phone] * CT CHEST PE W ABD PELVIS [...] right. Dictated by Lobito Han MD (residential collections). I, Dr. Clay SHOEMAKER M.D. have personally [...] right. Dictated by Lobito Han MD (residential collections). Dr. Clay Bahena M.D. have personally reviewed and interpretedthis examination/study. This report was electronically signed by Clay SHOEMAKER M.D. on 02/24/2020 10:45 AM . Violet Thorpe MD CT ORDERABLES * (ABNORMAL) BLOOD GASES JORDYN (02/23/2020 7:02 PM CDT) pH Mixed Venous 7.43(H) 7.30 - 7.40 02/23/2020 7:09 PM [facility] pCO2 Mixed Venous 43 40 - 46 mmHg 02/23/2020 7:09 PM [facility] pO2 Mixed Venous 41 35 - 42 mmHg 02/23/2020 7:09 PM [facility] HCO3 Mixed Venous 28.3(H) 22.0 - 26.0 mmol/L 02/23/2020 7:09 PM [facility] TCO2 Mixed Venous 29.6(H) 25.0 - 29.0 mmol/L 02/23/2020 7:09 PM [facility] Base Excess Venous 3.6(H) -2.0 - 2.0 mmol/L 02/23/2020 7:09 PM [facility] Hemoglobin Mixed Venous 8.6(L) 13.5 - 17.5 g/dL 02/23/2020 7:09 PM [facility] Oxyhemoglobin Mixed Venous 76.9 66.0 - 77.0 % 02/23/2020 7:09 PM [facility] Carboxyhemoglobin Venous 0.0 0.0 - 3.0 % 02/23/2020 7:09 PM [facility] Methemoglobin 0.7 0.0 - 2.0 % 02/23/2020 7:09 PM [facility] FI O2 Mixed Venous 21.0 % 2019 7:09 PM [facility] Blood BLOOD SPECIMEN / Unknown Venipuncture / Unknown 02/23/2020 7:02 PM CDT 02/23/2020 7:07 PM CDT Violet Thorpe MD LAB - BLOOD GASES ORDERABLES [address] [address], [facility] [phone] * XR SHOULDER LEFT 2VW OR MORE (02/13/2020 5:52 PM CDT) Anatomical Region Laterality Modality Upper Extremity Radiographic Tavon ging 02/13/2020 7:04 PM CDT Impressions 02/14/2020 10:35 AM CDT IMPRESSION: 1.Displaced fracture of the distal third of the left clavicle with lateral and inferior displacement of the distal fracture fragment. 2.Multiple left-sided rib fractures. Dictated by Vivien Guzman MD (residential collections). I, Dr. KERRY VIERA have personally reviewed [...] fractures. Dictated by Vivien Guzman MD (residential collections). Dr. KERRY Bahena have personally reviewed and [...] details.) Dictated by Jessica Ramirez MD (residential collections). This report was approved by Jessica Ramirez [...] details.) Dictated by Jessica Ramirez MD (residential collections). This report was approved by Jessica Ramirez [...] details.) Dictated by Jessica Ramirez MD (residential collections). This report was approved by Jessica Ramirez [...] details.) Dictated by Jessica Ramirez MD (residential collections). This report was approved by Jessica Ramirez on 02/11/2020 1:[address] JAH Bahena have personally reviewed and interpreted this examination/study. This report was electronically signed by JAH ARIZMENDI on02/11/2020 1:34 PM . Sakina Montesinos WRAPPING MACHINE TENDER-SCRUB TECHNICIAN MR ORDERABLES * MRI NECK SOFT TISSUE [...] details.) Dictated by Jessica Ramirez MD (residential collections). This report was approved by Jessica Ramirez [...] details.) Dictated by Jessica Ramirez MD (residential collections). This report was approved by Jessica Ramirez on 02/11/2020 1:33 PM . I, Dr. JAH ARIZMENDI have personally reviewed and interpreted this examination/study. This report was electronically signed by JAH ARIZMENDI on02/11/2020 1:34 PM . Sakina Montesinos WRAPPING MACHINE TENDER-SCRUB TECHNICIAN MR ORDERABLES * FL SWALLOWING FUNCTION STUDY (02/10/2020 10:18 AM CDT) Anatomical Region Laterality Modality Chest Radiographic Tavon ging 02/10/2020 10:2 2 AM CDT Impressions 02/10/2020 10:36 AM CDT FINDINGS/IMPRESSION: Fluoroscopic assistance was provided for a procedure performed by Speech Therapy. Please see the separate report by Speech Therapy for further details. Fluoroscopy Time: 42 seconds. Dictated by Ivana Lomeli MD (residential collections). Dr. KERRY Bahena have personally reviewed and [...] seconds. Dictated by Ivana Lomeli MD (residential collections). Dr. KERRY Bahena have personally reviewed and [...] 7.42 7.35 - 7.45 02/07/2020 3:[facility] pCO2 Arterial 36 35 - 45 mmHg 02/07/2020 3:07 AM [facility] pO2 Arterial 71 71 - 95 mmHg 02/07/2020 3:07 AM [facility] HCO3 Arterial 22.8 22.0 - 26.0 mmol/L 02/07/2020 3:07 AM [facility] TCO2 Arterial 23.9(L) 25.0 - 29.0 mmol/L 02/07/2020 3:07 AM [facility] Base Excess Arterial -1.3 -2.0 - 2.0 mmol/L 02/07/2020 3:07 AM CDT [facility] Hemoglobin Arterial 9.0(L) 13.5 - 17.5 g/dL 02/07/2020 3:07 AM CDT [facility] Oxyhemoglobin Arterial 93.3(L) 95.0 - 100.0 % 02/07/2020 3:07 AM CDT [facility] Carboxyhemoglobin 0.3 0.0 - 3.0 % 02/07/2020 3:07 AM CDT [facility] Methemoglobin 0.1 0.0 - 2.0 % 02/07/2020 3:07 AM CDT [facility] FI O2 Arterial 80.0 % 02/07/2020 3:07 AM CDT [facility] Blood, arterial ARTERIAL BLOOD SPECIMEN / Unknown Arterial Puncture / Unknown 02/07/2020 2:55 AM CDT 02/07/2020 3:04 AM CDT La Nena Blake MD LAB - BLOOD GASES ORDERABLES Performing Organization Address City/State/[facility] Co de Phone Number [facility] [address] [place] [phone], [facility] [phone] * CT ANGIO BRAIN AND NECK (02/05/2020 [...] Blood 1.11 mmol/L 02/04/2020 5:21 AM T [facility] Adjusted Ionized Calcium 1.14(L) 1.19 - 1.34 mmol/L 02/04/2020 5:21 AM T [facility] pH Whole Blood 7.45 7.35 - 7.45 02/04/2020 5:21 AM [facility] Blood WHOLE BLOOD SPECIMEN / Unknown Lab Venipuncture / Unknown 02/04/2020 4:32 AM CDT 02/04/2020 5:18 AM CDT Ernesto Tinsley MD LAB - CHEMISTRY [facility]Y [facility] Organization Address City/State/ZIP Co de Phone Number [place] [phone] [place] [address], [facility] [phone] * CT ANGIO ABDOMEN PELVIS (01/31/2020 10:12 [...] evaluate the extent of pulmonary embolism. 3. Ywtzk-gy-hjfcgfuu volume right and small volume left pleural [...] PM. Dictated by Vincent Montalvo MD (residential collections). IDr. Clay M.D. have personally reviewed and [...] evaluate the extent of pulmonary embolism. 3. Raxbq-oh-aiakaino volume right and small volume left pleural [...] PM. Dictated by Vincent Montalvo MD (residential collections). Shruti, Dr. Clay SHOEMAKER M.D. have personally [...] evaluate the extent of pulmonary embolism. 3. Chzrk-yv-kfsvzqcv volume right and small volume left pleuraleffusions. [...] PM. Dictated by Vincent Montalvo MD (residential collections). I, Dr. Clay SHOEMAKER M.D. have personally reviewed and interpretedthis examination/study. This report was electronically signed by Clay SHOEMAKER M.D. on 02/01/2020 10:42 AM . Ernesto Tinsley MD CT ORDERABLES * FL ELENITA SURGERY (01/31/2020 1:17 PM CDT) Narrative [facility] - 01/31/2020 1:18 PM CDT Fluoroscopy was used for this exam in the OR. Please see the Operative report. Dipesh Felix MD FLUOROSCOPY ORDERABL ES [facility] * XR PELVIS 3VW OR MORE [...] Report dictated by Jorge Abbott M.D. (residential collections). Dr. CHRISTINA Bahena have personally reviewed and interpreted this examination/study. This report was electronically signed by CHRISTINA HERNANEDZ on 02/01/2020 2:33 PM . Narrative 02/01/2020 [...] Report dictated by Jorge Abbott M.D. (residential collections). Dr. CHRISTINA Bahena have personally reviewed and interpreted this examination/study. This report was electronically signed by CHRISTINA HERNANDEZ on 02/01/2020 2:33 PM . Dipesh Felix MD DIAGNOSTIC IMAGING O RDERABLES * IV PLACEMENT PERFORMABLE (01/31/2020 12:12 PM CDT) Narrative Veronica Frias APRN-CRNA - 01/31/2020 12:12 PM CDT Veronica Frias APRN-CRNA 01/31/2020 12:13 PM Peripheral IV Line Placement: Patient Location: OR Procedure: IV start ([id number]). Procedure Section: Skin Prep: alcohol. Orientation: left [...] Event Date/Time: 01/31/2020 11:03 AM Procedure: intubation ([id number]). Procedure Section: Sedation: under general anesthesia. Indications [...] findings. Dictated by Dagoberto Hurtado MD (residential collections). I, Dr. ESTRELLITA SHAH have personally reviewed [...] findings. Dictated by Dagoberto Hurtado MD (residential collections). I, Dr. ESTRELLITA SHAH have personally reviewed [...] findings. Dictated by Dagoberto Hurtado MD (residential collections). I, Dr. ESTRELLITA SHAH have personally reviewed [...] findings. Dictated by Dagoberto Hurtado MD (residential collections). I, Dr. ESTRELLITA SHAH have personally reviewed and interpreted this examination/study. This report was electronically signed by ESTRELLITA SHAH on 01/28/20204:01 PM . Anu Greene DO CT ORDERABLES * (ABNORMAL) POTASSIUM BLOOD (01/28/2020 12:05 PM CDT) Only the most recent of9 resultswithin the time period is included. Potassium 3.2(L) 3.5 - 4.5 mmol/L 01/28/2020 12:34 PM CDT [facility] Blood BLOOD SPECIMEN / Unknown Venipuncture / Unknown 01/28/2020 12:05 PM CDT 01/28/2020 12:17 PM CDT Anu Greene DO LAB - CHEMISTRY ORDERABLES [facility] [address] [place] [address], [facility] [phone] * TRANSFUSE RED BLOOD CELL LEUKOREDUCED UNIT(S) [...] procedure and other - comments (only speaks Estonian) Patient Sedated? Yes Sedation Type: mild Sedation [...] Report dictated by Jorge Abbott M.D. (residential collections). I, Dr. KERRY VIERA have personally reviewed [...] Report dictated by Jorge Abbott M.D. (residential collections). I, Dr. KERRY VIERA have personally reviewed and interpreted this examination/study. This report was electronically signed by KERRY VIERA on 01/27/2020 12:41 PM . Bobby Rizo MD DIAGNOSTIC IMAGING O RDERABLES * (ABNORMAL) DRUG SCREEN TOX URINE PANEL (01/26/2020 8:12 AM [facility]) [facility] Amphetamines Screen Urine Negative Negative : < 1000 ng/mL 01/26/2020 8:56 AM [facility] Barbiturates Screen Urine Negative Negative : < 200 ng/mL 01/26/2020 8:56 AM [facility] Benzodiazepine Screen Urine Negative Negative : < 200 ng/mL 01/26/2020 8:56 AM [facility] Opiates Urine Positive(A) Negative : < 300 ng/mL 01/26/2020 8:56 AM [facility] Comment:Positive urine opiat e screening results should be confirmed by another generally accepted non-immunological method such as gas chromatography or mass spectrometry. Cocaine Metabolites Urine Negative Negative : < 300 ng/mL 01/26/2020 8:56 AM [facility] Phencyclidine Screen Urine Negative Negative : < 25 ng/ml 01/26/2020 8:56 AM [facility] Cannabinoids Screen Urine Negative Negative : <50 ng/mL 01/26/2020 8:56 AM [facility] Methadone Screen Urine Negative Negative : < 300 ng/mL 01/26/2020 8:56 AM [facility] Fentanyl Screen Urine Negative Negative : <1.0 ng/mL 01/26/2020 8:56 AM CDT [facility] Urine URINE / Unknown Collection / Unknown 01/26/2020 8:12 AM CDT 01/26/2020 8:29 AM CDT Narrative [facility] - 01/26/2020 8:56 AM CDT The Urine Toxicology Screening Panel does not screen for Propoxyphene, Meprobamate, Carisoprodol, Trazodone, wdjy-mhv-higzewx medications and/or volatiles (Acetone, Isopropanol, Methanol or Ethylene Glycol). Ethanol, Salicylate, Acetaminophen, Tricyclic Antidepressants and several therapeutic drugs may be individually assayed in serum or plasma specimen. Toxicology testing by the [facility] is an aid to medical diagnosis and treatment of patients. No documented chain of custody was maintained. Results are intended to be used for clinical purposes only. Joshua Matute MD LAB - URINE CHEMISTR Y ORDERABLES Performing Organization Address City/State/[facility] Co de Phone Number [address] [address], [facility] [phone] * FL UROGRAM RETROGRADE (01/25/2020 8:15 PM CDT) Anatomical Region Laterality Modality Abdomen Radiographic Tavon ging 01/25/2020 8:36 PM CDT Impressions 02/01/2020 4:02 PM CDT IMPRESSION: No evidence of injury to the penile or bulbar urethra. Dynamic images showed retrograde flow of contrast into the bladder with normal appearance of the membranous and prostatic urethra. Dictated by Vivien Guzman MD (residential collections). IDr. Clay M.D. have personally reviewed and [...] urethra. Dictated by Vivien Guzman MD (residential collections). Dr. Clay Bahena M.D. have personally reviewed [...] of marrow edema associated with the reported G7qhped fracture. There is associated severe compression of [...] PM CDT) ABO 01/25/2020 4:01 PM CDT [facility] Rh Type 01/25/2020 4:01 PM CDT [facility] Typem 01/25/2020 4:01 PM CDT [facility] Interpretation 01/25/2020 4:01 PM CDT [facility] Blood BLOOD SPECIMEN / Unknown Lab Venipuncture / Unknown 01/25/2020 2:20 PM CDT 01/25/2020 2:34 PM CDT Narrative [facility] - 01/25/2020 4:01 PM CDT Re-type confirmed per [facility] Blood Bank policies & procedures. Results documented in department. Shaggy James MD LAB - BLOOD BANK ORD ERABLES [facility] [address] [place] [address], [facility] [phone] * (ABNORMAL) TEG PLATELET MAPPING (01/25/2020 2:19 PM CDT) Interpretation TEG See Comment 01/25/2020 4:10 PM CDT [facility] React-Time 3.8(L) 5.0 - 10.0 MIN 01/25/2020 4:10 PM CDT [facility] K-Time 1.3 1.0 - 3.0 MIN 01/25/2020 4:10 PM CDT [facility] Angle A-BB 71.2 53.0 - 72.0 Degrees 01/25/2020 4:10 PM CDT [facility] MA (CK) BB 68.4 50.0 - 70.0 mm 01/25/2020 4:10 PM CDT [facility] LY30 0.0 0.0 - 8.0 % 01/25/2020 4:10 PM CDT [facility] CI-Coagulation Index 3.0 -3.0 - 3.0 01/25/2020 4:10 PM CDT [facility] MA-ADP 23.4 Reference Range: None mm 01/25/2020 4:10 PM CDT [facility] MA AA-BB 65.5 Reference Range: None mm 01/25/2020 4:10 PM CDT [facility] % ADP Inhibition 75.5 Reference Range:None % 01/25/2020 4:10 PM CDT [facility] G-Clot Strength 10.8 4.5 - 11.0 d/sc 01/25/2020 4:10 PM CDT [facility] % AA Inhibition 4.9 Reference Range: None % 01/25/2020 4:10 PM CDT [facility] Blood BLOOD SPECIMEN / Unknown Venipuncture / Unknown 01/25/2020 2:19 PM CDT 01/25/2020 2:32 PM CDT Narrative [facility] - 01/25/2020 4:10 PM [...] MD LAB - BLOOD BANK ORD ERABLES [facility] [address] [place] [address], [facility] [phone] * CT CHEST ABDOMEN PELVIS W CONT [...] atelectasis. Dictated by Vivien Guzman MD (residential collections). I, Dr. MANFRED BOYD have personally reviewed [...] cervical spine at the C3-C4 through the [id number]-[id number] is present due to posterior disc abnormalities [...] atelectasis. Dictated by Vivien Guzman MD (residential collections). I, Dr. MANFRED BOYD have personally reviewed [...] atelectasis. Dictated by Vivien Guzman MD (residential collections). I, Dr. MANFRED BOYD have personally reviewed [...] cervical spine at the C3-C4 through the C5-[id number] is present due to posterior disc abnormalities [...] atelectasis. Dictated by Vivien Guzman MD (residential collections). I, Dr. MNAFRED BOYD have personally reviewed and interpreted this [...] atelectasis. Dictated by Vivien Guzman MD (residential collections). I, Dr. MANFRED BOYD have personally reviewed [...] cervical spine at the C3-C4 through the C5-[id number] is present due to posterior disc abnormalities [...] atelectasis. Dictated by Vivien Guzman MD (residential collections). I, Dr. MANFRED BOYD have personally reviewed [...] atelectasis. Dictated by Vivien Guzman MD (residential collections). I, Dr. MANFRED BOYD have personally reviewed [...] cervical spine at the C3-C4 through the C5-[id number] is present due to posterior disc abnormalities [...] atelectasis. Dictated by Vivien Guzman MD (residential collections). I, Dr. MANFRED BOYD have personally reviewed [...] Report dictated by Vivien Guzman MD (residential collections). I, Dr. CHRISTINA HERNANDEZ have personally reviewed [...] Report dictated by Vivien Guzman MD (residential collections). I, Dr. CHRISTINA HERNANDEZ have personally reviewed and interpreted this examination/study. This report was electronically signed by CHRISTINA HERNANDEZ on 01/25/2020 3:24 PM . Joshua Matute MD DIAGNOSTIC IMAGING O RDERABLES * ALCOHOL ETHYL BLOOD (01/25/2020 1:38 PM CDT) Interpretation Ethanol None Detected None Detected mg/dL 01/25/2020 2:08 PM CDT [facility] Comment:Ethanol levels less than 10 mg/dL are resulted as None detected . Blood BLOOD SPECIMEN / Unknown Venipuncture / Unknown 01/25/2020 1:38 PM CDT 01/25/2020 2:08 PM CDT Joshua Matute MD LAB - CHEMISTRY KATHY [facility] Organization Address City/State/ZIP Co de Phone Number [facility] [address] [place] [address], [facility] [phone] Care Teams Forensic Science Technician Relationship Specialty Start Date End Date Unknown, Provider PCP - General 08/30/23 Donavon Connor MD Family Medicine 08/30/23
--- OUTSIDE RECORDS SUMMARY | 2024-07-23 19:43 | XMS_ITS | Clinical Summary ---
Author Organization [facility] Address [address] [place] [address] Care Team Providers Care Telecommunications Line Mechanic Name Role Phone No, Physician Primary Care Provider [phone] Bunny Ramires MD Unavailable [phone] Allergies Active Allergy Reactions Criticality Noted [...] Cardiomyopathy, ischemic 07/22/2024 Coronary artery disease involving washoe heart 0 07/15/2024 Constipation, unspecified constipation type 08/2022 Assessment & Plan (07/31/2022 11:22 AM MANAGER WEB): No symptoms or signs of mechanical obstruction. [...] 07/30/2022 Assessment & Plan (07/31/2022 11:21 AM MANAGER WEB): On metformin 500 mg twice daily at [...] 07/30/2022 Assessment & Plan (07/31/2022 10:46 AM MANAGER WEB): Not on any treatment at home. BP well controlled, CTM and add medications if needed Benign prostatic hyperplasia without lower urinary tract symptoms 07/30/2022 Assessment & Plan (07/31/2022 10:44 AM MANAGER WEB): Patient was recently started on Flomax and finasteride at OSH. Patients son reported patient was experiencing difficulty urinating - continue home meds and pcp follow up for further management Stage 3a chronic kidney disease 07/30/2022 Assessment & Plan (07/31/2022 10:48 AM MANAGER WEB): Creatinine is 1.48, up from the most recent of 1.2- 1.3 in 2021 and 2016 - improved to 1.37 on am labs - CTM and follow up outpatient Encounters Date Type Department Care Team Description 07/15/2024 Telephone [facility] Cardiology [address] [place] [address] [place] [phone] Gina Link MD 07/08/2024 2:00 PM MANAGER WEB Office Visit [facility] Cardiology [address] [place] [address] [address] [place] [phone] Gina Link MD Hypertension associated with diabetes (HCC) (Primary Dx); Coronary artery disease involving washoe coronary artery of washoe heart without angina pectoris; Cardiomyopathy, ischemic 07/02/2024 Orders Only [facility] Cardiology [address] [place] [address] [address] [place] [phone] Gerhard Ratliff MD 06/29/2024 Orders Only [facility] Health Information Management [address] [place] [address] Allegra Shin MD 06/26/2024 Orders Only [facility] Cardiology [address] [place] [phone] Peyton De Guzman MD from Last 3 Months Surgical History Surgery Date Site/Laterality Comments NH PERQ NL/PL LITHOTRP COMPLEX >2 CM [employer] LOCATIONS Percutaneous Lithotomy For Stone Over 2cm. [...] Family history of hypertension - (Added by Conv) Relation Name Status Comments Father Mother Social History Tobacco Use Types Packs/Day Years Used Date Smoking Tobacco: Never Smokeless Tobacco: Never Tobacco Cessation:Counseling Given: Not Answered Personal Safety Answer Date Recorded Getting School Help Needed Denies 07/22 Sex and Gender Information Value Date Recorded Sex Assigned at Not on file Legal Sex Male 5:44 AM MANAGER WEB Gender Identity Not on file Sexual Orientation Not on file Obstetrics History Last Filed Vital Signs Vital Sign Reading Time Taken Comments Blood Pressure 116/60 07/08/2024 1:05 PM MANAGER WEB Pulse 88 07/08/2024 1:05 PM MANAGER WEB Temperature 36.5 C (97.7 F) 07/31/2022 8:00 AM MANAGER WEB Respiratory Rate 16 07/31/2022 7:55 AM MANAGER WEB Oxygen Saturation 99% 07/08/2024 1:05 PM MANAGER WEB Inhaled Oxygen Concentration - - Weight 67.9 kg (149 lb 9.6 oz) 07/08/2024 1:05 P M MANAGER WEB Height 162.6 cm (5' 4 ) 07/08/2024 1:05 PM MANAGER WEB Body Mass Index 25.68 07/08/2024 1:05 PM MANAGER WEB Plan of Treatment Health Maintenance Due Date [...] Vaccine (#1) 2024 Lipid Panel 03/01/2025 03/01/2024, 08/2022, 01/07/2014 Procedures Procedure Name Priority Date/Time Associated Diagnosis Comments CARDIOLOGY DOCUMENT SCAN Routine 07/01/2024 3:53 PM MANAGER WEB CARDIOLOGY DOCUMENT SCAN Routine 06/30/2024 3:49 PM MANAGER WEB CARDIOLOGY DOCUMENT SCAN Routine 06/29/2024 3:44 PM MANAGER WEB SCAN - RADIOLOGY/IMAGING 06/29/2024 CARDIOLOGY DOCUMENT SCAN Routine 06/28/2024 3:37 PM MANAGER WEB CARDIOLOGY DOCUMENT SCAN Routine 06/27/2024 3:32 PM MANAGER WEB CARDIOLOGY DOCUMENT SCAN Routine 06/26/2024 3:20 PM MANAGER WEB CARDIOLOGY DOCUMENT SCAN Routine 06/24/2024 3:16 PM MANAGER WEB CARDIOLOGY DOCUMENT SCAN Routine 06/23/2024 3:10 PM MANAGER WEB CARDIOLOGY DOCUMENT SCAN Routine 06/22/2024 3:04 PM MANAGER WEB CARDIOLOGY DOCUMENT SCAN Routine 06/22/2024 3:03 PM MANAGER WEB CARDIOLOGY DOCUMENT SCAN Routine 06/22/2024 3:00 PM MANAGER WEB EGFR Routine 07/31/2022 5:30 AM MANAGER WEB HEMOGLOBIN A1C Routine 07/30/2022 10:23 PM MANAGER WEB LIPID PANEL Routine 07/30/2022 10:23 PM MANAGER WEB from Last 3 Months or Most Recently Relevant to Health Maintenance Results * Cardiology Document Scan (07/01/2024 3:53 PM MANAGER WEB) Anatomical Region Laterality Modality Other us Hennessy Ko MD CV CARDIAC SERVICES PROCEDURES F inal Result * Cardiology Document Scan (06/30/2024 3:49 PM MANAGER WEB) Anatomical Region Laterality Modality Other Result David Shin MD CV CARDIAC SERVICES PRO CEDURES Final Result * Cardiology Document Scan (06/29/2024 3:44 PM MANAGER WEB) Anatomical Region Laterality Modality Other Result David Allegra Shin MD CV CARDIAC SERVICES PRO CEDURES Final Result * SCAN - RADIOLOGY/IMAGING (06/29/2024) Anatomical Region Laterality Modality Other Result David Allegra Shin MD Final R esult * Cardiology Document Scan (06/28/2024 3:37 PM MANAGER WEB) Anatomical Region Laterality Modality Other Result David Allegra Shin MD CV CARDIAC SERVICES PRO CEDURES Final Result * Cardiology Document Scan (06/27/2024 3:32 PM MANAGER WEB) Anatomical Region Laterality Modality Other Result David Ratliff MD CV CARDIAC SERVICES PROCEDURES F inal Result * Cardiology Document Scan (06/26/2024 3:20 PM MANAGER WEB) Anatomical Region Laterality Modality Other Result David Allegra Shin MD CV CARDIAC SERVICES PRO CEDURES Final Result * Cardiology Document Scan (06/24/2024 3:16 PM MANAGER WEB) Anatomical Region Laterality Modality Other Allegra Shin MD CV CARDIAC SERVICES PRO CEDURES Final Result * Cardiology Document Scan (06/23/2024 3:10 PM MANAGER WEB) Anatomical Region Laterality Modality Other us Peyton De Guzman MD CV CARDIAC SERVICES PROCEDU RES Final Result * Cardiology Document Scan (06/22/2024 3:04 PM MANAGER WEB) Anatomical Region Laterality Modality Other us Peyton De Guzman MD CV CARDIAC SERVICES PROCEDU RES Final Result * Cardiology Document Scan (06/22/2024 3:03 PM MANAGER WEB) Anatomical Region Laterality Modality Other Peyton De Guzman MD CV CARDIAC SERVICES PROCEDU RES Final Result * Cardiology Document Scan (06/22/2024 3:00 PM MANAGER WEB) Anatomical Region Laterality Modality Other Peyton De Guzman MD CV CARDIAC SERVICES PROCEDU RES Final Result * (ABNORMAL) eGFR (07/31/2022 5:30 AM MANAGER WEB) eGFR 54(L) 90 - 130 mL/min/1. 73 [...] last reviewed 2021. Blood 07/31/2022 5:30 AM MANAGER WEB 07/31/2022 5:51 AM MANAGER WEB Lizabeth Strong MD LAB BLOOD ORDERABLES Fin al Result [facility] Department [place] [address] * (ABNORMAL) Hemoglobin A1c (07/30/2022 10:23 PM MANAGER WEB) Hgb A1C 10.7(H) 4.0 - 5.6 % [facility] Estimated Average Glucose 260 mg/dL [facility] Comment: The ADA recommends reporting an estimated Average Glucose (eAG) with all Hemoglobin A1c results using the equation derived from a study of 507 normal and diabetic adults. Minority populations were underrepresented and children were not included. (Diabetes Care 2020; 43(S1): S66-S76). The eAG is not equivalent to a fasting glucose. Blood 07/30/2022 10:2 3 PM MANAGER WEB 07/30/2022 10:39 PM MANAGER WEB Lizabeth Strong MD LAB BLOOD ORDERABLES Fin al Result [facility] Department [place] [address] * (ABNORMAL) Lipid panel (07/30/2022 10:23 PM MANAGER WEB) Cholesterol 167 30 - 199 mg/dL [facility] Comment: Interpretive Data Ages < [...] revised on 2018. Triglycerides 155(H) <=149 mg/dL [facility] Comment: Interpretive Data Ages < [...] revised on 2018. HDL 43 >=40 mg/dL [facility] Comment: Interpretive Data Ages < [...] on 2018. LDL, calculated 93 <=129 mg/dL [facility] Comment: Interpretive Data Ages < [...] revised on 2018. Non-HDL Cholesterol 124 mg/dL [facility] Comment: Interpretive Data Ages < [...] last revised on 2018. Chol/HDL ratio 4 [facility] Blood 07/30/2022 10:2 3 PM MANAGER WEB 07/30/2022 10:39 PM MANAGER WEB us Lizabeth Strong MD LAB BLOOD ORDERABLES Fin al Result [facility] Department [place] [address] from Last 3 Months or Most Recently Relevant to Health Maintenance Insurance [id number] [place] [address] [phone] [place] [address] [facility] Advance Directives For more information, please contact: [phone] * Full Code (Latest Code Status on File) Date Activated Date Inactivated Comments 07/30/2022 9:33 PM 07/31/2022 6:01 PM Care Teams Telecommunications Line Mechanic Relationship Specialty Start Date End Date No, Physician PCP - General 07/30/22 Bunny Ramires MD 07/30/22
--- OUTSIDE RECORDS SUMMARY | 2024-07-23 19:43 | XMS_ITS | Clinical Summary ---
Author Organization [facility] Address [address] [facility] [place] [address] Care Team Providers Care Cooker Casing Name Role Phone Unknown, Provider Primary Care Provider Donavon Holguin MD Unavailable [phone] [facility],non-owned Affiliates and Associated Physician Practices is amultiple site organization consisting of ambulatory clinics and hospital sitesin [place], [place], [place] and [place]. This disclosure is being madepursuant to the Care Everywhere program and may not contain all information available regarding this patient. Last updated 18.[facility] Allergies Active Allergy Reactions Criticality Noted Date [...] tablet 01/01/2023 Active Blood Glucose Monitoring Suppl (Yotpo Verio Flex System) w/Device KIT USE DIRECTED THREE TIMES DAILY 01/01/2023 Active erythromycin (Romycin) 5 MG/GM ophthalmic ointment 03/23/2023 Active Expert Networksuch Ultra test strip USE TO TEST FOUR TIMES DAILY 03/27/2023 Active TRUEplus 5-Bevel Pen Converse 32G X 4 MM MISC USE TO INJECT INSULIN UP TO 5 TIMES DAILY 07/11/2023 Active TRUEplus Insulin Syringe 30G X 5/16 0.5 ML MISC USE DIRECTED EVERY DAY 01/01/2023 Active Lancets (Galil MedicalTOUCH DELICA PLUS 33G EXTRA FINE LANCET) TEST [...] original. Could not [facility] [place] afford to provide a Home Health nurse [...] Follow up in: three months with PCP, Tailor Garment Fitter, Supervisor Alteration Workroom, Distribution Operation Supervisor, Established eye healthcare administrative assistant and Mobile Architect Last Assessment & Plan: Not on any [...] Follow up in: three months with PCP, Tailor Garment Fitter, Supervisor Alteration Workroom, Distribution Operation Supervisor, Established eye healthcare administrative assistant and Mobile Architect Infected wound 04/12/2020 Sacral wound 02/19/2020 Urinary [...] Office Visit [facility] - Ophthalmology [address] [place] [phone] Health Maintenance Due Date Last Done Comments [...] this topic Medical Devices Implanted Type Area Bullion Weigher Device Identifier Shelf Expiration Date Model / Serial / Lot Gd Pin Orth 450mm 3.2mm Cocr Xtd Acc Implanted:Qty: 1 on 01/31/2020 by Dipesh Felix MD at [facility] Right: Sacral Iliac Joint [employer] [id number] / / Wshr 12.7mm 6.5mm Set Unv Orth Ss 1mm Implanted:Qty: 1 on 01/31/2020 by Dipesh Felix MD at [facility] Right: Sacral Iliac Joint [employer] [id number] / / Cannulated Screw, 4.0mm X40mm 1/2 Thread Implanted:Qty: 2 on 01/31/2020 by Dipesh Felix MD at [facility] Right: Ankle [id number] / / 8.0 X 9.5 Fully Threaded Screw Implanted:Qty: 1 on 01/31/2020 by Dipesh Felix MD at [facility] [id number] / / Plate 8 Hl Unv Matrixrib Ti Bone Nonster Implanted:Qty: 5 on 02/05/2020 by Dipesh Hernandez MD at [facility] Right: Chest Wall Synthes Usa [id number] / / 2.7 Mm Matrixrib Locking Screw, Self-Drilling, 11mm Implanted:Qty: 35 on 02/05/2020 by Dipesh Hernandez MD at [facility] Right: Chest Wall [id number] 1 / / 2.7 Mm Matrixrib Locking Screw, Self-Drilling, 12mm Implanted:Qty: 2 on 02/05/2020 by Dipesh Hernandez MD at [facility] Right: Chest Wall [id number] 1 / / Plate 16 Hl Precontr Lck Lopro 4th Rb Implanted:Qty: 1 on 02/05/2020 by Dipesh Hernandez MD at [facility] Right: Chest Wall S[employer] [id number] / / Clareon Uv Iol Ccaoto +23.0d Implanted:Qty: 1 on 09/28/2023 by Simeon Cannon MD at [facility] Left: Eye [employer] 02/20/2027 CCAOTO+23.0D / [id number] / N/A [employer] Iol Aspheric Uv Absorbing Iol Implanted:Qty: 1 on 10/12/2023 by Simeon Cannon MD at [facility] Right: Eye [employer] 02/18/2027 CCA0T0 +23.5D / [id number] / NA Procedures Procedure Name Priority Date/Time Associated Diagnosis Comments COMPREHENSIVE METABOLIC PANEL STAT 06/30/2020 2:29 PM APPLICATION INTEGRATOR HEMOGLOBIN A1C Routine 04/18/2020 11:09 AM [facility] from Last 3 Months or Most Recently Relevant to Health Maintenance Results * (ABNORMAL) COMPREHENSIVE METABOLIC PANEL (06/30/2020 2:29 PM [facility]) BUN 29(H) 7 - 26 mg/dL 06/30/2020 3:00 PM [facility] Creatinine 1.2 0.6 - 1.2 mg/dL 06/30/2020 3:00 PM [facility] Sodium 138 136 - 145 mmol/L 06/30/2020 3:00 PM [facility] Potassium 3.7 3.5 - 4.5 mmol/L 06/30/2020 3:00 PM [facility] Chloride 96(L) 98 - 107 mmol/L 06/30/2020 3:00 PM [facility] CO2 28 22 - 29 mmol/L 06/30/2020 3:00 PM [facility] Glucose 144(H) 70 - 115 mg/dL 06/30/2020 3:00 PM [facility] Calcium 8.8 8.4 - 10.2 mg/dL 06/30/2020 3:00 PM [facility] Protein Total 6.5 6.0 - 8.3 g/dL 06/30/2020 3:00 PM [facility] Albumin 2.8(L) 3.4 - 5.0 g/dL 06/30/2020 3:00 PM [facility] Bilirubin Total 0.4 0.2 - 1.2 mg/dL 06/30/2020 3:00 PM [facility] Alkaline Phosphatase 108 40 - 150 Units/L 06/30/2020 3:00 PM [facility] ALT 20 0 - 55 Units/L 06/30/2020 3:00 PM [facility] AST 17 5 - 34 Units/L 06/30/2020 3:00 PM [facility] Anion Gap 18 8 - 18 06/30/2020 3:00 PM [facility] BUN/Creatinine Ratio 24(H) 7 - 23 06/30/2020 3:00 PM [facility] Osmolality Calculated 294 270 - 300 mOsm/kg 06/30/2020 3:00 PM [facility] Albumin/Globulin Ratio 0.8(L) 1.1 - 2.3 06/30/2020 3:00 PM [facility] eGFR 60(L) >60 mL/min/1.7 3 m2 06/30/2020 3:00 PM [facility] Blood BLOOD SPECIMEN / Unknown Venipuncture / Unknown 06/30/2020 2:29 PM APPLICATION INTEGRATOR 06/30/2020 2:37 PM [facility] Shaggy James MD LAB - CHEMISTRY KATHY [place] [address] [place] [address], [facility] [phone] * (ABNORMAL) HEMOGLOBIN A1C (04/18/2020 11:09 AM [facility]) Hemoglobin A1c 7.6(H) 4.4 - 6.3 % 04/19/2020 9:00 AM [facility] Estimated Average Glucose 171 mg/dL 04/19/2020 9:00 AM [facility] Comment: HbA1c Interpretation: Treatment target values recommended by ADA and other clinical organizations should be used to evaluate metabolic control in patients. Treatment Target Values: Normal : < 5.7% Pre-diabetes: 5.7-6.4% Diabetes: Equal to or greater than 6.5% Reference: [place] Diabetes Association Standards of Care in Diabetes -2014 In patients 70 years and older consider HbA1c target range of 7.0-7.5% Reference: Diabetes Mellitus in Older People: Position Statement on behalf of the International Association of Gerontology and Geriatrics (IAGG), the Diabetes Working Constitution Party for Older People (EDWPOP), and the International Task Force of Experts in Diabetes. Ritesh Srinivasan, et al. J [place] Medical Directors Association. 2012 Test results diagnostic of diabetes should be repeated for confirmation. The Sebia Capillary 2 assay for the measurement of HbA1c is a National Glycohemoglobin Standardization Program (NGSP)certified method. Blood BLOOD SPECIMEN / Unknown Lab Venipuncture / Unknown 04/18/2020 11:09 AM APPLICATION INTEGRATOR 04/18/2020 11:40 AM APPLICATION INTEGRATOR Narrative [facility] - 04/19/2020 9:00 AM APPLICATION INTEGRATOR note^note Zhane Granger MD LAB - CHEMISTRY OR DERABLES [facility] [address] [place] [address], [facility] [phone] from Last 3 Months or Most Recently [...] 3:26 PM 02/19/2020 5:52 PM Care Teams Cooker Casing Relationship Specialty Start Date End Date Unknown, Provider PCP - General 08/30/23 Donavon Connor MD Family Medicine 08/30/23
--- OUTSIDE RECORDS SUMMARY | 2024-07-23 19:44 | XMS_ITS | Encounter Summary ---
Author Organization [facility] Address [facility] [place] [address] Care Team Providers Care Negotiator Sales Name Role Phone Dnoavon Connor MD Primary Care Provider [phone] Reason for Visit * Reason Comments Image (SCAN) Encounter Details Date Type Department Care Team (Latest Contact Info) Description 07/17/2024 Scan [facility] Scanned, [...] materials from doctor or pharmacy Often 07/02/2024 [facility] Utilities Answer Date Recorded In the past [...] than three times a week 12/30/2022 Attends [employer] Not on file 12/30 Do you belong to any clubs o r organizations such as roman catholic groups, unions, fraternal or athletic groups, or [...] any time in the past 12 [facility], were you homeless or living in a intermediate (including now)? No 04/10/2024 Sex and Gender Information Value Date Recorded Sex Assigned at Male 04/09/2024 9:16 PM SUPERVISOR FORMING DEPARTMENT Legal Sex Male 8:36 PM CDT Gender Identity Male 04/09/2024 9:16 PM SUPERVISOR FORMING DEPARTMENT Sexual Orientation Straight 04/09/2024 9: 16 PM SUPERVISOR FORMING DEPARTMENT documented as of this encounter Functional Status * Are you deaf or do you have serious difficulty hearing Answer Date of Assessment Author Status No 04/09/2024 9:27 PM SUPERVISOR FORMING DEPARTMENT Shayla Swan RN Active * Are you blind or do you have serious difficulty seeing, even when wearing glasses? Answer Date of Assessment Author Status No 04/09/2024 9:27 PM SUPERVISOR FORMING DEPARTMENT Shayla Swan RN Active * Do you have serious difficulty walking or climbing stairs? Answer Date of Assessment Author Status No 04/09/2024 9:27 PM SUPERVISOR FORMING DEPARTMENT Shayla Swan RN Active * Do you have difficulty dressing or bathing? Answer Date of Assessment Author Status No 04/09/2024 9:27 PM SUPERVISOR FORMING DEPARTMENT Shayla Swan RN Active * Because of [...] st Contact Info) Description 07/24/2024 8:40 AM SUPERVISOR FORMING DEPARTMENT Office Visit [facility] Family and Sports Medicine - [address] [phone] Donavon Connor MD [address] [address] 07/25/2024 3:00 PM SUPERVISOR FORMING DEPARTMENT Home Care Visit [address] [place] [address] Catie Zabala, PT [address] [place], [place] [phone] 07/26/2024 8:00 AM SUPERVISOR FORMING DEPARTMENT Home Care Visit [facility] Home Care [address] [place] [address] Julaina Mcgrath, RN 07/30/2024 8:00 AM SUPERVISOR FORMING DEPARTMENT Home Care Visit [facility] Care [address] [place] [address] Juliana Mcgrath, RN 08/02/2024 8:00 AM SUPERVISOR FORMING DEPARTMENT Appointment [facility] Care [address] [place] [address] [place] [address] Juliana Mcgrath RN 01/06/2025 11:00 AM CDT Office Visit [facility] Multispecialty Care - [facility] [address] [facility] [place] [address] Lai Anderson MD [address] [place] [address] documented as of this encounter Goals Goal Patient Goal Type Associated Problems Recent Progress Patient-Stated? 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 [address] PCP - General FAMILY PRACTICE 04/13/20 documented as of this encounter
--- OUTSIDE RECORDS SUMMARY | 2024-07-23 19:44 | XMS_ITS | Encounter Summary ---
Author Organization [facility] Address Formerly [facility], [facility] [place] [address] Care Team Providers Care Coffee Roaster Name Role Phone Donavon Connor MD Primary Care Provider [phone] Reason for Visit * Reason Comments Image [...] materials from doctor or pharmacy Often 07/23/2024 [facility] Utilities Answer Date Recorded In the past [...] than three times a week 12/30/2022 Attends [employer] Not on file 12/30 Do you belong to any clubs o r organizations such as pentecostalism groups, unions, fraternal or athletic groups, or [...] place to sleep or slept in a fci (including now)? No 06/24/2023 Housing Stability Vital Sign Answer Macho e Recorded In the last 12 months, was t here a time when you were not able to pay the mortgage or rent on time? No 04/10/2024 In the past 12 months, how m any times have you moved where you were living? 0 04/10/2024 At any time in the past 12 m [facility], were you homeless or living in a fci (including now)? No 04/10/2024 Sex and Gender Information Value Date Recorded Sex Assigned at Male 04/09/2024 9:16 PM OCEAN [employer]IGHT [employer]ENT Legal Sex Male 8:36 PM CDT Gender Identity Male 04/09/2024 9:16 PM OCEAN [employer]REIGHT AGENT Sexual Orientation Straight 04/09/2024 9: 16 PM OCEAN FREIGHT AGENT documented as of this encounter Functional Status * Are you deaf or do you have serious difficulty hearing Answer Date of Assessment Author Status No 04/09/2024 9:27 PM OCEAN FREIGHT AGENT Shayla Swan RN Active * Are you blind or do you have serious difficulty seeing, even when wearing glasses? Answer Date of Assessment Author Status No 04/09/2024 9:27 PM OCEAN FREIGHT AGENT Shayla Swan RN Active * Do you have serious difficulty walking or climbing stairs? Answer Date of Assessment Author Status No 04/09/2024 9:27 PM OCEAN FREIGHT AGENT Shayla Swan RN Active * Do you have difficulty dressing or bathing? Answer Date of Assessment Author Status No 04/09/2024 9:27 PM OCEAN FREIGHT AGENT Shayla Swan RN Active * Because of [...] st Contact Info) Description 07/24/2024 8:40 AM OCEAN FREIGHT AGENT Office Visit [facility] Family and Sports Medicine - [address] [phone] Donavon Connor MD [address] [address] 07/25/2024 3:00 PM OCEAN FREIGHT AGENT Home Care Visit [address] [place] [address] Catie Zabala, PT [address] [place], [place] [id number] 07/26/2024 8:00 AM OCEAN FREIGHT AGENT Home Care Visit [facility] Home Care [address] [place] [address] Juliana Mcgrath, RN 07/30/2024 8:00 AM OCEAN FREIGHT AGENT Home Care Visit [facility] Care [address] [place] [address] Juliana Mcgrath, RN 08/02/2024 8:00 AM OCEAN FREIGHT AGENT Appointment [facility] Care [address] [place] [address] [place] [address] Juliana Mcgrath RN 01/06/2025 11:00 AM CDT Office Visit [facility] Medical Group Multispecialty Care - [facility] [address] [facility], [address] [place] [address] Lai Anderson MD [address] [place] [address] documented as of this encounter Goals Goal [...] Total Score: 0 04/19/20 24 9:36 AM OCEAN FREIGHT AGENT documented as of this encounter Care Teams Coffee Roaster Relationship Specialty Start Date End Date Donavon Connor MD [address] [facility] [address] [place] [address] PCP - General FAMILY PRACTICE 04/13/20 documented as of this encounter
--- OUTSIDE RECORDS SUMMARY | 2024-07-23 19:44 | XMS_ITS | Clinical Summary ---
Author Organization [facility] Address [address] [place] [address] Care Team Providers Care Home Health Administrator Name Role Phone Unavailable Primary Care Provider [...]
[2024-07-23 19:48] VITALS: BP 162/83; PULSE 80; RESP 15; TEMP 36.6; O2SAT 99
--- NOTE | 2024-07-23 19:59 | ECG_ITS ---
Test Date: 2024-07-23 20:06:26 Measurements Intervals [place] Rate: 78 P: 38 MA: 172 QRS: 9 QRSD: 87 T: 125 QT: 411 QTc: 469 Interpretive Statements SINUS RHYTHM WITH SINUS ARRHYTHMIA SEPTAL MYOCARDIAL INFARCTION , PROBABLY RECENT ST-T WAVE ABNORMALITY IN HIGH LATERAL LEADS- CONSIDER ISCHEMIA BASELINE ARTIFACT- I, II, AVR, AVL, AVF ABNORMAL ECG Compared to ECG 07/17/2024 08:37:28 NO SIGNIFICANT CHANGE Electronically Signed On 07-24-2024 07:08:13 BURGL[employer] ALARM SUPERINTENDENT by Pascual Oakley D.O.
--- NOTE | 2024-07-23 20:17 | ECG_ITS ---
Test Date: 2024-07-23 20:23:15 Measurements Intervals [place] Rate: 76 P: 33 NM: 164 QRS: 5 QRSD: 86 T: 127 QT: 416 QTc: 468 Interpretive Statements SINUS RHYTHM MODERATE T-WAVE ABNORMALITY, CONSIDER HIGH LATERAL ISCHEMIA BASELINE ARTIFACT- I, II, III, AVR, AVL, AVF ABNORMAL ECG Compared to ECG 07/23/2024 20:06:26 NO SIGNIFICANT CHANGE Electronically Signed On 07-24-2024 06:56:53 DELIVERY MERCHANDISER by Pascual Oakley D.O.
[2024-07-23 20:23] LABS: Basophils Absolute Auto 0.1 K/mm3 (0.0-0.1); Basophils Percent Auto 0.7 % (0.2-1.2); Eosinophils Absolute Auto 0.2 K/mm3 (0-0.3); Eosinophils Percent Auto 2.5 % (0-4.4); Hematocrit 35.7 % (42.0-52.0); Hemoglobin 11.3 g/dL (14.0-18.0); Immature Granulocyte Absolute 0.01 K/mm3 (0.00-0.031); Immature Granulocyte Percent A 0.1 % (0-0.5); Lymphocytes Absolute Auto 2.81 K/mm3 (0.9-3.2); Lymphocytes Percent Auto 34.5 % (18.3-44.2); Mean Corpuscular HGB Conc 31.7 g/dl (32-36); Mean Corpuscular Hemoglobin 28.2 pg (26-34); Mean Platelet Volume 12.9 fl (7.4-10.4); Monocytes Absolute Auto 0.6 K/mm3 (0.1-0.6); Monocytes Percent Auto 7.7 % (2.6-8.5); Neutrophils Absolute Auto 4.4 K/mm3 (1.3-6.7); Neutrophils Percent Auto 54.5 % (45.5-73.1); Platelet Count Result 282 k/mm3 (150-375); Red Blood Count 4.01 M/mm3 (4.6-6.20); Red Cell Distribution Width 15.5 % (11.5-14.5); White Blood Count 8.2 K/mm3 (4.5-10.0)
[2024-07-23 20:34] LABS: Alanine Aminotransferase 21 U/L (6-50); Albumin Level 3.6 g/dL (3.5-5.1); Alkaline Phosphatase 99 U/L (38-126); Anion Gap 13 mmol/L (4-12); Aspartate Amino Transferase 30 U/L (17-59); Blood Urea Nitrogen 13 mg/dL (9-20); Calcium 8.8 mg/dL (8.4-10.2); Carbon Dioxide 23 mmol/L (22-30); Chloride 104 mmol/L (98-107); Estimated CRCL calculation 53 ml/min; Estimated Glomerular Filt Rate > 60; Glucose 151 mg/dL (65-110); Lipase 198 U/L (23-300); Potassium 3.7 mmol/L (3.4-5.0); Prothrombin Time 13.6 Seconds (11.1-14.7); Sodium 140 mmol/L (137-145)
[2024-07-23 20:36] LABS: Partial Thromboplastin Time 26.4 Seconds (22.3-36.8)
--- NOTE | 2024-07-23 20:46 | PC.NURSE ---
EKG completed at [address] [place].
[2024-07-23 20:50] LABS: Troponin I 0.254 ng/mL (0.000-0.034)
[2024-07-23 21:25] VITALS: RESP 22
[2024-07-23] MEDS: ASPIRIN 81 MG CHEWABLE TABLET 324 MG PO (21:41)
--- OUTSIDE RECORDS SUMMARY | 2024-07-23 22:35 | XMS_ITS | Patient Health Summary ---
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 Extremity Rad[facility] 04/20/2020 7:45 AM SOCIAL RESEARCH ASSISTANT Impressions 04/20/2020 12:31 PM SOCIAL RESEARCH ASSISTANT IMPRESSION: No acute fracture or dislocation identified. Dictated by Jerzy Chaudhry MD (interventional radiology technologist). Dr. CHRISTINA Bahena have personally reviewed and interpreted this examination/study. This report was electronically signed by CHRISTINA HERNANDEZ on 04/20/2020 12:31 PM . Narrative 04/20/2020 12:31 PM SOCIAL RESEARCH ASSISTANT EXAMINATION: XR HIP RIGHT 2VW OR [...] dislocation identified. Dictated by Jerzy Chaudhry MD (interventional radiology technologist). I, Dr. CHRISTINA HERNANDEZ have personally reviewed and interpreted this examination/study. This report was electronically signed by CHRISTINA HERNANDEZ on 04/20/2020 12:31 PM . Sandoval Chávez MD DIAGNOSTIC IMAGING O RDERABLES * CULTURE BLOOD (04/18/2020 11:22 AM SOCIAL RESEARCH ASSISTANT) Only the most recent of14 resultswithin the time period is included. Culture No growth day 5 CANDACE 04/23/2020 2:01 PM SOCIAL RESEARCH ASSISTANT [facility] Blood PERIPHERAL BLOOD / Unknown Lab Venipuncture / Unknown 04/18/2020 11:22 AM SOCIAL RESEARCH ASSISTANT 04/18/2020 11:36 AM SOCIAL RESEARCH ASSISTANT Chad Rocha MD LAB - MICROBIOLOGY O RDERABLES [facility] [address] [place] [address], [facility] [phone] * (ABNORMAL) HEMOGLOBIN A1C (04/18/2020 11:09 AM SOCIAL RESEARCH ASSISTANT) Only the most recent of2 resultswithin the time period is included. Hemoglobin A1c 7.6(H) 4.4 - 6.3 % 04/19/2020 9:00 AM [facility] Estimated Average Glucose 171 mg/dL 04/19/2020 9:00 AM [facility] Comment: HbA1c Interpretation: Treatment target values recommended by ADA and other clinical organizations should be used to evaluate metabolic control in patients. Treatment Target Values: Normal : < 5.7% Pre-diabetes: 5.7-6.4% Diabetes: Equal to or greater than 6.5% Reference: [place] Diabetes Association Standards of Care in Diabetes -2014 In patients 70 years and older consider HbA1c target range of 7.0-7.5% Reference: Diabetes Mellitus in Older People: Position Statement on behalf of the International Association of Gerontology and Geriatrics (IAGG), the Diabetes Working Green Party for Older People (EDWPOP), and the International Task Force of Experts in Diabetes. Ritesh Srinivasan et al. J [place] [employer] Association. 2012 Test results diagnostic of diabetes should be repeated for confirmation. The Sebia Capillary 2 assay for the measurement of HbA1c is a National Glycohemoglobin Standardization Program (NGSP)certified method. Blood BLOOD SPECIMEN / Unknown Lab Venipuncture / Unknown 04/18/2020 11:09 AM SOCIAL RESEARCH ASSISTANT 04/18/2020 11:40 AM SOCIAL RESEARCH ASSISTANT Narrative [facility] - 04/19/2020 9:00 AM SOCIAL RESEARCH ASSISTANT note^note Zhane Granger MD LAB - CHEMISTRY OR DERABLES Performing Organization Address City/[facility]/ZIP Co de Phone Number [address] [address], [facility] [phone] * FOLATE (04/18/2020 11:09 AM SOCIAL RESEARCH ASSISTANT) Folate 10.4 7.0 - 31.4 ng/mL 04/18/2020 12:39 PM SOCIAL RESEARCH ASSISTANT [facility] Blood BLOOD SPECIMEN / Unknown Lab Venipuncture / Unknown 04/18/2020 11:09 AM SOCIAL RESEARCH ASSISTANT 04/18/2020 11:40 AM SOCIAL RESEARCH ASSISTANT Zhane Granger MD LAB - CHEMISTRY OR DERABLES Performing Organization Address City/[facility]/ZIP Co de Phone Number [address] [address], [place] [phone] * VITAMIN B12 (04/18/2020 11:09 AM SOCIAL RESEARCH ASSISTANT) Only the most recent of2 resultswithin the time period is included. Vitamin B12 239 213 - 816 pg/mL 04/18/2020 12:39 PM SOCIAL RESEARCH ASSISTANT [facility] Blood BLOOD SPECIMEN / Unknown Lab Venipuncture / Unknown 04/18/2020 11:09 AM SOCIAL RESEARCH ASSISTANT 04/18/2020 11:40 AM SOCIAL RESEARCH ASSISTANT Zhane Granger MD LAB - CHEMISTRY OR DERABLES Performing Organization Address City/[facility]/ZIP Co de Phone Number [address] [address] [phone] * XR CHEST 1VW PORTABLE (04/18/2020 5:50 AM SOCIAL RESEARCH ASSISTANT) Only the most recent of18 resultswithin the time period is included. Anatomical Region Laterality Modality Chest Radiographic Tavon ging 04/18/2020 10:3 0 AM SOCIAL RESEARCH ASSISTANT Impressions 04/19/2020 12:14 PM SOCIAL RESEARCH ASSISTANT FINDINGS/IMPRESSION: There is redemonstrated internal fixation of multiple right rib fractures. The lungs are hypoinflated with bronchovascular crowding. There is no focal consolidation, pleural effusion, or pneumothorax. The cardiomediastinal silhouette is normal. Displaced fractures of the left clavicle and multiple left ribs are grossly unchanged in osseous alignment. Dictated by Lobito Han MD (interventional radiology technologist). Dr. CHRISTINA Bahena have personally reviewed and interpreted this examination/study. This report was electronically signed by CHRISTINA HERNANDEZ on 04/19/2020 12:14 PM . Narrative 04/19/2020 12:14 PM SOCIAL RESEARCH ASSISTANT EXAMINATION: XR CHEST 1VW PORTABLE HISTORY: [...] osseous alignment. Dictated by Lobito Han MD (interventional radiology technologist). Dr. CHRISTINA Bahena have personally reviewed and interpreted this examination/study. This report was electronically signed by CHRISTINA HERNANDEZ on 04/19/2020 12:14 PM . Chad Rocha MD DIAGNOSTIC IMAGING O RDERABLES * (ABNORMAL) URINALYSIS W/MICROSCOPIC NO CULTURE (04/18/2020 5:46 AM SOCIAL RESEARCH ASSISTANT) Only the most recent of4 resultswithin the time period is included. Color UA Straw Straw, Yellow, Colorless 04/18/2020 6:23 AM [facility] Clarity UA Clear Clear, Slt Cloudy 04/18/2020 6:23 AM [facility] Specific [place] UA 1.008 1.005 - 1.030 04/18/2020 6:23 AM [facility] pH UA 7.0 5.0 - 8.0 pH 04/18/2020 6:23 AM [facility] Protein UA Negative Negative mg/dL 04/18/2020 6:23 AM [facility] Glucose UA 1+(A) Negative mg/dL 04/18/2020 6:23 AM [facility] Ketone UA Negative Negative mg/dL 04/18/2020 6:23 AM [facility] Bilirubin UA Negative Negative mg/dL 04/18/2020 6:23 AM [facility] Blood UA Negative Negative 04/18/2020 6:23 AM [facility] Nitrite UA Negative Negative 04/18/2020 6:23 AM [facility] Leukocyte Esterase Negative Negative 04/18/2020 6:23 AM [facility] Urobilinogen UA Negative Negative mg/dL 04/18/2020 6:23 AM [facility] RBC UA None Seen None Seen, 0-2, 3-5 /HPF 04/18/2020 6:23 AM [facility] WBC UA None Seen None Seen, 0-5 /HPF 04/18/2020 6:23 AM [facility] Squamous Epithelial Cells UA None Seen None Seen, 0-2 /HPF 04/18/2020 6:23 AM [facility] Urine URINE SPECIMEN OBTAINED BY CLEAN CATCH PROCEDURE / Unknown Collection / Unknown 04/18/2020 5:46 AM SOCIAL RESEARCH ASSISTANT 04/18/2020 6:03 AM [facility] - 04/18/2020 6:23 AM SOCIAL RESEARCH ASSISTANT note^note Chad Rocha MD LAB - URINALYSIS ORD ERABLES Performing Organization Address [facility]/ZIP Co de Phone Number [address] [address], [facility] [phone] * PTT [facility] (04/17/2020 11:38 PM SOCIAL RESEARCH ASSISTANT) Only the most recent of19 resultswithin the time period is included. APTT 26.4 23.0 - 38.4 Seconds 04/18/2020 12:07 AM [facility] Comment:Suggested therapeuti c range for full dose I.V. unfractionated heparin therapy for venous thromboembolism is 71 to 109 seconds. Blood BLOOD SPECIMEN / Unknown Lab Venipuncture / Unknown 04/17/2020 11:38 PM SOCIAL RESEARCH ASSISTANT 04/17/2020 11:59 PM [facility] - 04/18/2020 12:07 AM SOCIAL RESEARCH ASSISTANT note^note Chad Rocha MD LAB - COAGULATION OR DERABLES Performing Organization Address [facility] Co de Phone Number [address] [address], [facility] [phone] * PT-INR [facility] (04/17/2020 11:38 PM SOCIAL RESEARCH ASSISTANT) Only the most recent of8 resultswithin the time period is included. PT 12.8 12.1 - 14.8 Seconds 04/18/2020 12:06 AM [facility] INR 1.0 See Comment 04/18/2020 12:06 AM [facility] Comment:The suggested therap eutic range for standard coumadin (warfarin) therapy is an INR of 2.0-3.0. For high-risk patients (Mechanical Mitral Valve Prosthesis, etc.), the suggested prophylactic therapeutic range is an INR of 2.5-3.5. Blood BLOOD SPECIMEN / Unknown Lab Venipuncture / Unknown 04/17/2020 11:38 PM SOCIAL RESEARCH ASSISTANT 04/17/2020 11:59 PM [facility] - 04/18/2020 12:06 AM SOCIAL RESEARCH ASSISTANT note^note Chad Rocha MD LAB - COAGULATION OR DERABLES Performing Organization Address City/[facility]/ZIP Co de Phone Number [address] [address], [place] [phone] * TROPONIN I (04/17/2020 11:38 PM SOCIAL RESEARCH ASSISTANT) Only the most recent of3 resultswithin the time period is included. Troponin I <0.010 <0.032 ng/mL 04/18/2020 12:26 AM SOCIAL RESEARCH ASSISTANT [facility] Blood BLOOD SPECIMEN / Unknown Lab Venipuncture / Unknown 04/17/2020 11:38 PM SOCIAL RESEARCH ASSISTANT 04/17/2020 6:15 PM SOCIAL RESEARCH ASSISTANT Chad Rocha MD LAB - CHEMISTRY KATHY CAMPA Performing Organization Address City/[facility] Co de Phone Number [address] [address], [facility] [phone] * LACTIC ACID BLOOD (04/17/2020 11:38 PM SOCIAL RESEARCH ASSISTANT) Only the most recent of2 resultswithin the time period is included. Pathologist [facility] Lactic Acid-Stat 1.9 0.5 - 2.2 mmol/L 04/18/2020 12:18 AM SOCIAL RESEARCH ASSISTANT [facility] Blood BLOOD SPECIMEN / Unknown Lab Venipuncture / Unknown 04/17/2020 11:38 PM SOCIAL RESEARCH ASSISTANT 04/17/2020 6:15 PM SOCIAL RESEARCH ASSISTANT Chad Rocha MD LAB - CHEMISTRY KATHY CAMPA [address] [address], [place] [phone] * (ABNORMAL) C DIFFICILE GD AG + TOXIN A+B (03/21/2020 12:42 PM CDT) Interpretation C difficile Indeterm inate(A) Negative for toxigenic C. difficile 03/21/2020 8:57 PM CDT [facility] Stool STOOL SPECIMEN / Unknown Collection / Unknown 03/21/2020 12:42 PM CDT 03/21/2020 12:55 PM CDT Narrative [facility] - 03/21/2020 8:57 PM CDT Indeterminate results reflex to a C. difficile by PCR test. See separate report. Maycol Matthews MD LAB - MICROBIOLOGY O PEMA Performing Organization Address City/[facility]/ZIP Co de Phone Number [facility] [address] [place] [address], [facility] [phone] * (ABNORMAL) C DIFFICILE BY PCR (03/21/2020 12:42 PM CDT) C difficile Toxin B Gene Detected( A) Not detected, Invalid 03/22/2020 6:19 PM CDT [facility] Stool STOOL SPECIMEN / Unknown Collection / Unknown 03/21/2020 12:42 PM CDT 03/21/2020 12:55 PM CDT Maycol Matthews MD LAB - MICROBIOLOGY O PEMA Performing Organization Address [facility]/ZIP Co de Phone Number [facility] [address] [place] [address], [facility] [phone] * CT ABDOMEN PELVIS WO CONTRAST (03/19/2020 [...] changed. Report dictated by Nicolás Kingston MD (interventional radiology technologist). I, Dr. KAYLENE CAO M.D. have personally [...] changed. Report dictated by Nicolás Kingston MD (interventional radiology technologist). Dr. KAYLENE Bahena M.D. have personally reviewed [...] Not Established mmol/L 03/16/2020 12:02 PM CDT [facility] Urine URINE SPECIMEN OBTAINED BY CLEAN CATCH PROCEDURE / Unknown Collection / Unknown 03/16/2020 11:35 AM CDT 03/16/2020 11:46 AM CDT Maycol Matthews MD LAB - URINE CHEMISTR Y ORDERABLES [address] [address], [facility] [phone] * UREA NITROGEN URINE RANDOM (03/16/2020 11:35 AM CDT) Urea Nitrogen Random Urine 396 Not Established mg/dL 03/16/2020 12:02 PM CDT [facility] Urine URINE SPECIMEN OBTAINED BY CLEAN CATCH PROCEDURE / Unknown Collection / Unknown 03/16/2020 11:35 AM CDT 03/16/2020 11:46 AM CDT Maycol Matthews MD LAB - URINE CHEMISTR Y ORDERABLES Performing Organization Address [facility]/ZIP Co de Phone Number [address] [address], [place] [phone] * CREATININE URINE RANDOM (03/16/2020 11:35 AM CDT) Creatinine Urine 60 Not Established mg/dL 03/16/2020 12:02 PM CDT [facility] Comment:Result obtained by magui tellez. Urine URINE SPECIMEN OBTAINED BY CLEAN CATCH PROCEDURE / Unknown Collection / Unknown 03/16/2020 11:35 AM CDT 03/16/2020 11:46 AM CDT Maycol Matthews MD LAB - URINE CHEMISTR Y ORDERABLES Performing Organization Address [facility] Co de Phone Number [address] [address], [place] [phone] * CULTURE URINE (03/15/2020 4:57 PM CDT) Only the most recent of4 resultswithin the time period is included. Culture Urine No growth (<100 CFU/mL) CANDACE 03/17/2020 1:20 AM CDT [facility] Urine URINE SPECIMEN OBTAINED VIA [employer]WELLING URINARY CATHETER / Unknown Collection / Unknown 03/15/2020 4:57 PM CDT 03/15/2020 6:02 PM CDT Geoffrey Rogers MD LAB - MICROBIOLOGY O RDERABLES Performing Organization Address City/[facility]/ZIP Co de Phone Number [facility] [address] [place] [address], [facility] [phone] * (ABNORMAL) URINALYSIS REFLEX TO MICROSCOPIC NO CULTURE (03/15/2020 1:28 PM CDT) Color UA Deana(A) Straw, Yellow, Colorless 03/15/2020 2:11 PM [facility] Clarity UA Turbid(A) Clear, Slt Cloudy 03/15/2020 2:11 PM [facility] Specific [place] UA 1.023 1.005 - 1.030 03/15/2020 2:11 PM [facility] pH UA 5.0 5.0 - 8.0 pH 03/15/2020 2:11 PM [facility] Protein UA 2+(A) Negative mg/dL 03/15/2020 2:11 PM [facility] Glucose UA Negative Negative mg/dL 03/15/2020 2:11 PM [facility] Ketone UA Trace(A) Negative mg/dL 03/15/2020 2:11 PM [facility] Bilirubin UA Negative Negative mg/dL 03/15/2020 2:11 PM [facility] Blood UA 3+(A) Negative 03/15/2020 2:11 PM [facility] Nitrite UA Negative Negative 03/15/2020 2:11 PM [facility] Leukocyte Esterase 3+(A) Negative 03/15/2020 2:11 PM [facility] Urobilinogen UA Negative Negative mg/dL 03/15/2020 2:11 PM [facility] RBC UA >100(A) None Seen, 0-2, 3-5 /HPF 03/15/2020 2:11 PM [facility] WBC UA >100(A) None Seen, 0-5 /HPF 03/15/2020 2:11 PM [facility] WBC Clumps Many(A) None /HPF 03/15/2020 2:11 PM [facility] Bacteria UA 1+(A) None, Trace /HPF 03/15/2020 2:11 PM [facility] Squamous Epithelial Cells UA None Seen None Seen, 0-2 /HPF 03/15/2020 2:11 PM [facility] Mucus UA 1+ None, 1+ /LPF 03/15/2020 2:11 PM CDT [facility] Amorphous Crystals Many(A) Rare, Occasional, Few, Moderate, None /HPF 03/15/2020 2:11 PM CDT [facility] Urine URINE SPECIMEN OBTAINED VIA INDWELLING URINARY CATHETER / Unknown Collection / Unknown 03/15/2020 1:28 PM CDT 03/15/2020 1:34 PM CDT Narrative [facility] - 03/15/2020 2:11 PM CDT Geoffrey Rogers MD LAB - URINALYSIS ORD ERABLES [address] [address], [facility] [phone] * HIV-1 HIV-2 ANTIGEN/ANTIBODY (03/03/2020 5:25 AM CDT) HIV Antigen/Antibod y 1 & 2 Non-reacti ve Non-react tristan 03/03/2020 2:42 PM CDT [facility] Comment:Neither HIV-1 p24 An tigen nor HIV-1/HIV-2 Antibodies are detected. Blood BLOOD SPECIMEN / Unknown Lab Venipuncture / Unknown 03/03/2020 5:25 AM CDT 03/03/2020 2:10 PM CDT Geoffrey Rogers MD LAB - HEMATOLOGY ORD ERABLES Performing Organization Address City/[facility]/ZIP Co de Phone Number [address] [address], [facility] [phone] * VANCOMYCIN LEVEL RANDOM (03/03/2020 5:25 AM CDT) Only the most recent of4 resultswithin the time period is included. Vancomycin Random 17.9 Therapeutic Ranges not established for random specimens mcg/mL 03/03/2020 6:23 AM CDT [facility] Blood BLOOD SPECIMEN / Unknown Lab Venipuncture / Unknown 03/03/2020 5:25 AM CDT 03/03/2020 5:52 AM CDT Christina Briseno DO LAB - CHEMISTRY ORDE KATHERYN Performing Organization Address [facility] Co de Phone Number [address] [address], [place] [phone] * (ABNORMAL) IRON BLOOD (03/02/2020 2:52 AM CDT) Iron 29(L) 50 - 175 mcg/dL 03/02/2020 3:45 AM CDT [facility] Blood BLOOD SPECIMEN / Unknown Venipuncture / Unknown 03/02/2020 2:52 AM CDT 03/02/2020 3:28 AM CDT Karyna Marshall DO LAB - CHEMISTRY ORDKaren CAMPA Performing Organization Address [facility] Co de Phone Number [address] [address], [place] [phone] * (ABNORMAL) FERRITIN (03/02/2020 2:52 AM CDT) Ferritin 443(H) 22 - 275 ng/mL 03/02/2020 4:03 AM CDT [facility] Blood BLOOD SPECIMEN / Unknown Venipuncture / Unknown 03/02/2020 2:52 AM CDT 03/02/2020 3:28 AM CDT Karyna Marshall DO LAB - CHEMISTRY KATHY CAMPA Performing Organization Address [facility] Co de Phone Number [address] [address], [place] [phone] * ETT LINE PERFORMABLE (02/28/2020 10:30 PM CDT) Narrative Amina Frank - 02/28/2020 10:30 PM CDT Amina Frank MD 02/28/2020 10:30 PM Endotracheal Tube Placement: Patient Location: OR. Procedure: intubation (01765). Procedure Section: Sedation: under general anesthesia. Indications [...] Event Date/Time: 02/26/2020 10:35 PM Procedure: intubation (50647). Procedure Section: Sedation: under general anesthesia. Indications [...] skin jarrod CANDACE 03/01/2020 1:28 PM CDT [facility] Gram Stain No polymorphonuclear cells(AA) 03/01/2020 1:28 PM CDT [facility] Gram Stain Moderate Gram-positive cocci(AA) 03/01/2020 1:28 PM CDT [facility] Gram Stain Moderate Gram-negative bacilli(AA) 03/01/2020 1:28 PM CDT [facility] Microbiology ENTIRE SACRAL VERTEBRAL COLUMN / Unknown Collection / Unknown 02/24/2020 12:16 PM CDT 02/24/2020 12:23 PM CDT Narrative [facility] - 03/01/2020 1:28 PM CDT 02/24/2020 9:24 PM Ysabel Ortega RN notified. Read back and acknowledged results. Organism seen on initial gram stain may be anaerobic or not viable for aerobic growth Pablito Kan MD LAB - MICROBIOLOGY O RDERABLES [facility] [address] [place] [address], [facility] [phone] * PREPARE (CROSSMATCH) RBC UNIT(S), 2 Units (02/24/2020 6:46 AM CDT) Only the most recent of5 resultswithin the time period is included. Unit Description AS1 LR PRBC [facility] B[facility]OD [facility] LAB Unit ABO B [facility] Unit POS [facility] B[facility]OD [facility] Product Number R02 [facility] B LOOD BANK LAB Unit Donor # [id number] [facility] LAB Unit Status [facility] Product [facility] I8856S82 [facility] OD BANK LAB Blood Type Barcode 7300 [facility] BLOOD BANK LAB Expiration Date S BLOOD BANK LAB Unit Description AS1 LR PRBC [facility] BLOOD BANK LAB Unit ABO B [facility] BLOOD BANK LAB Unit POS [facility] BLOOD BANK LAB Product Number R02 [facility] B LOOD BANK LAB Unit Donor # [id number] [facility] BLOOD BANK LAB Unit Status released [facility] BLOO D BANK LAB Product Code [id number] [facility] BLO OD BANK LAB Blood Type Barcode 7300 [facility] BLOOD BANK LAB Expiration Date S BLOOD BANK LAB Blood Bank BLOOD SPECIMEN / Unknown 02/24/2020 6:46 AM CDT 02/24/2020 7:02 AM CDT Adriana Funes MEDICAL POLICY SPECIALIST-[employer]IT[employer] ANALYST LAB - BLOOD BANK ORDERABLES [facility] B[facility] LAB [address] [place] [address], [place] [phone] * SARS-COV-2 (COVID-19) IN HOUSE (02/23/2020 9:49 PM CDT) Only the most recent of2 resultswithin the time period is included. COVID-19 PCR Not detected Not detected, Invalid 02/24/2020 7:49 PM CDT [facility] Microbiology SPECIMEN FROM NASOPHARYNGEAL STRUCTURE / Unknown Collection / Unknown 02/23/2020 9:49 PM CDT 02/23/2020 9:56 PM CDT Narrative [facility] - 02/24/2020 7:49 PM CDT [...] Violet Thorpe MD LAB - MICROBIOLOGY ORDERABLES [facility] [address] [place] [address] [phone] * CT CHEST PE W ABD PELVIS [...] the right. Dictated by Lobito Han MD (interventional radiology technologist). I, Dr. Clay SHOEMAKER M.D. have personally [...] the right. Dictated by Lobito Han MD (interventional radiology technologist). Dr. Clay Bahena M.D. have personally reviewed and interpretedthis examination/study. This report was electronically signed by Clay SHOEMAKER M.D. on 02/24/2020 10:45 AM . Violet Thorpe MD CT ORDERABLES * (ABNORMAL) BLOOD GASES JORDYN (02/23/2020 7:02 PM CDT) pH Mixed Venous 7.43(H) 7.30 - 7.40 02/23/2020 7:09 PM [facility] pCO2 Mixed Venous 43 40 - 46 mmHg 02/23/2020 7:09 PM [facility] pO2 Mixed Venous 41 35 - 42 mmHg 02/23/2020 7:09 PM [facility] HCO3 Mixed Venous 28.3(H) 22.0 - 26.0 mmol/L 02/23/2020 7:09 PM [facility] TCO2 Mixed Venous 29.6(H) 25.0 - 29.0 mmol/L 02/23/2020 7:09 PM [facility] Base Excess Venous 3.6(H) -2.0 - 2.0 mmol/L 02/23/2020 7:09 PM [facility] Hemoglobin Mixed Venous 8.6(L) 13.5 - 17.5 g/dL 02/23/2020 7:09 PM [facility] Oxyhemoglobin Mixed Venous 76.9 66.0 - 77.0 % 02/23/2020 7:09 PM [facility] Carboxyhemoglobin Venous 0.0 0.0 - 3.0 % 02/23/2020 7:09 PM [facility] Methemoglobin 0.7 0.0 - 2.0 % 02/23/2020 7:09 PM [facility] FI O2 Mixed Venous 21.0 % 2019 7:09 PM [facility] Blood BLOOD SPECIMEN / Unknown Venipuncture / Unknown 02/23/2020 7:02 PM CDT 02/23/2020 7:07 PM CDT Violet Thorpe MD LAB - BLOOD GASES ORDERABLES [address] [address], [facility] [phone] * XR SHOULDER LEFT 2VW OR MORE (02/13/2020 5:52 PM CDT) Anatomical Region Laterality Modality Upper Extremity Radiographic Tavon ging 02/13/2020 7:04 PM CDT Impressions 02/14/2020 10:35 AM CDT IMPRESSION: 1.Displaced fracture of the distal third of the left clavicle with lateral and inferior displacement of the distal fracture fragment. 2.Multiple left-sided rib fractures. Dictated by Vivien Guzman MD (interventional radiology technologist). I, Dr. KERRY VIERA have personally reviewed [...] rib fractures. Dictated by Vivien Guzman MD (interventional radiology technologist). Dr. KERRY Bahena have personally reviewed and [...] more details.) Dictated by Jessica Ramirez MD (interventional radiology technologist). This report was approved by Jessica Ramirez [...] more details.) Dictated by Jessica Ramirez MD (interventional radiology technologist). This report was approved by Jessica Ramirez [...] more details.) Dictated by Jessica Ramirez MD (interventional radiology technologist). This report was approved by Jessica Ramirez [...] more details.) Dictated by Jessica Ramirez MD (interventional radiology technologist). This report was approved by Jessica Ramirez on 02/11/2020 1:[address] JAH Bahena have personally reviewed and interpreted this examination/study. This report was electronically signed by JAH ARIZMENDI on02/11/2020 1:34 PM . Sakina Montesinos MEDICAL POLICY SPECIALIST-LEAD MILITARY ANALYST MR ORDERABLES * MRI NECK SOFT TISSUE [...] more details.) Dictated by Jessica Ramirez MD (interventional radiology technologist). This report was approved by Jessica Ramirez [...] more details.) Dictated by Jessica Ramirez MD (interventional radiology technologist). This report was approved by Jessica Ramirez on 02/11/2020 1:33 PM . I, Dr. JAH ARIZMENDI have personally reviewed and interpreted this examination/study. This report was electronically signed by JAH ARIZMENDI on02/11/2020 1:34 PM . Sakina Montesinos MEDICAL POLICY SPECIALIST-LEAD MILITARY ANALYST MR ORDERABLES * FL SWALLOWING FUNCTION STUDY (02/10/2020 10:18 AM CDT) Anatomical Region Laterality Modality Chest Radiographic Tavon ging 02/10/2020 10:2 2 AM CDT Impressions 02/10/2020 10:36 AM CDT FINDINGS/IMPRESSION: Fluoroscopic assistance was provided for a procedure performed by Speech Therapy. Please see the separate report by Speech Therapy for further details. Fluoroscopy Time: 42 seconds. Dictated by Ivana Lomeli MD (interventional radiology technologist). Dr. KERRY Bahena have personally reviewed and interpreted this examination/study. This report was electronically signed by KRERY VIERA on 02/10/2020 10:36 AM . Narrative [...] 42 seconds. Dictated by Ivana Lomeli MD (interventional radiology technologist). Dr. KERRY Bahena have personally reviewed and [...] 7.42 7.35 - 7.45 02/07/2020 3:07 [facility] pCO2 Arterial 36 35 - 45 mmHg 02/07/2020 3:07 AM [facility] pO2 Arterial 71 71 - 95 mmHg 02/07/2020 3:07 AM [facility] HCO3 Arterial 22.8 22.0 - 26.0 mmol/L 02/07/2020 3:07 AM [facility] TCO2 Arterial 23.9(L) 25.0 - 29.0 mmol/L 02/07/2020 3:07 AM [facility] Base Excess Arterial -1.3 -2.0 - 2.0 mmol/L 02/07/2020 3:07 AM CDT [facility] Hemoglobin Arterial 9.0(L) 13.5 - 17.5 g/dL 02/07/2020 3:07 AM CDT [facility] Oxyhemoglobin Arterial 93.3(L) 95.0 - 100.0 % 02/07/2020 3:07 AM CDT [facility] Carboxyhemoglobin 0.3 0.0 - 3.0 % 02/07/2020 3:07 AM CDT [facility] Methemoglobin 0.1 0.0 - 2.0 % 02/07/2020 3:07 AM CDT [facility] FI O2 Arterial 80.0 % 02/07/2020 3:07 AM CDT [facility] Blood, arterial ARTERIAL BLOOD SPECIMEN / Unknown Arterial Puncture / Unknown 02/07/2020 2:55 AM CDT 02/07/2020 3:04 AM CDT La Nena Blake MD LAB - BLOOD GASES ORDERABLES Performing Organization Address City/State/[facility] Co de Phone Number [facility] [address] [place] [address], [facility] [phone] * CT ANGIO BRAIN AND NECK (02/05/2020 [...] Blood 1.11 mmol/L 02/04/2020 5:21 AM T [facility] Adjusted Ionized Calcium 1.14(L) 1.19 - 1.34 mmol/L 02/04/2020 5:21 AM T [facility] pH Whole Blood 7.45 7.35 - 7.45 02/04/2020 5:21 AM [facility] Blood WHOLE BLOOD SPECIMEN / Unknown Lab Venipuncture / Unknown 02/04/2020 4:32 AM CDT 02/04/2020 5:18 AM CDT Ernesto Tinsley MD LAB - CHEMISTRY [facility] Organization Address City/State/ZIP Co de Phone Number [place] [id number] [place] [address], [facility] [phone] * CT ANGIO ABDOMEN PELVIS (01/31/2020 10:12 [...] evaluate the extent of pulmonary embolism. 3. Ujsdw-lx-zvsxaosf volume right and small volume left pleural [...] 11:32 PM. Dictated by Vincent Montalvo MD (interventional radiology technologist). IDr. Clay M.D. have personally reviewed and [...] evaluate the extent of pulmonary embolism. 3. Fqjki-fa-szojajvj volume right and small volume left pleural [...] 11:32 PM. Dictated by Vincent Montalvo MD (interventional radiology technologist). Shruti, Dr. Clay SHOEMAKER M.D. have personally [...] evaluate the extent of pulmonary embolism. 3. Bcnlk-dv-nmchsosv volume right and small volume left pleuraleffusions. [...] 11:32 PM. Dictated by Vincent Montalvo MD (interventional radiology technologist). I, Dr. Clay SHOEMAKER M.D. have personally reviewed and interpretedthis examination/study. This report was electronically signed by Clay SHOEMAKER M.D. on 02/01/2020 10:42 AM . Ernesto Tinsley MD CT ORDERABLES * FL ELENITA SURGERY (01/31/2020 1:17 PM CDT) Narrative [facility] - 01/31/2020 1:18 PM CDT Fluoroscopy was used for this exam in the OR. Please see the Operative report. Dipesh Felix MD FLUOROSCOPY ORDERABL ES [facility] * XR PELVIS 3VW OR MORE [...] normal. Report dictated by Jorge Abbott M.D. (interventional radiology technologist). Dr. CHRISTINA Bahena have personally reviewed and [...] normal. Report dictated by Jorge Abbott M.D. (interventional radiology technologist). Dr. CHRISTINA Bahena have personally reviewed and interpreted this examination/study. This report was electronically signed by CHRISTINA HERNANDEZ on 02/01/2020 2:33 PM . Dipesh Felix MD DIAGNOSTIC IMAGING O RDERABLES * IV PLACEMENT PERFORMABLE (01/31/2020 12:12 PM CDT) Narrative Veronica Frias APRN-CRNA - 01/31/2020 12:12 PM CDT Veronica Frias APRN-CRNA 01/31/2020 12:13 PM Peripheral IV Line Placement: Patient Location: OR Procedure: IV start ([id number]). Procedure Section: Skin Prep: alcohol. Orientation: left [...] Event Date/Time: 01/31/2020 11:03 AM Procedure: intubation ([id number]). Procedure Section: Sedation: under general anesthesia. Indications [...] above findings. Dictated by Dagoberto Hurtado MD (interventional radiology technologist). I, Dr. ESTRELLITA SHAH have personally reviewed [...] above findings. Dictated by Dagoberto Hurtado MD (interventional radiology technologist). I, Dr. ESTRELLITA SHAH have personally reviewed [...] above findings. Dictated by Dagoberto Hurtado MD (interventional radiology technologist). I, Dr. ESTRELLITA SHAH have personally reviewed [...] above findings. Dictated by Dagoberto Hurtado MD (interventional radiology technologist). I, Dr. ESTRELLITA SHAH have personally reviewed and interpreted this examination/study. This report was electronically signed by ESTRELLITA SHAH on 01/28/20204:01 PM . Anu Greene DO CT ORDERABLES * (ABNORMAL) POTASSIUM BLOOD (01/28/2020 12:05 PM CDT) Only the most recent of9 resultswithin the time period is included. Potassium 3.2(L) 3.5 - 4.5 mmol/L 01/28/2020 12:34 PM CDT [facility] Blood BLOOD SPECIMEN / Unknown Venipuncture / Unknown 01/28/2020 12:05 PM CDT 01/28/2020 12:17 PM CDT Anu Greene DO LAB - CHEMISTRY ORDERABLES [facility] [address] [place] [address], [facility] [phone] * TRANSFUSE RED BLOOD CELL LEUKOREDUCED UNIT(S) [...] fracture. Report dictated by Jorge Abbott M.D. (interventional radiology technologist). I, Dr. KERRY VIERA have personally reviewed [...] fracture. Report dictated by Jorge Abbott M.D. (interventional radiology technologist). I, Dr. KERRY VIERA have personally reviewed and interpreted this examination/study. This report was electronically signed by KERRY VIERA on 01/27/2020 12:41 PM . Bobby Rizo MD DIAGNOSTIC IMAGING O RDERABLES * (ABNORMAL) DRUG SCREEN TOX URINE PANEL (01/26/2020 8:12 AM [facility]) [facility] Amphetamines Screen Urine Negative Negative : < 1000 ng/mL 01/26/2020 8:56 AM [facility] Barbiturates Screen Urine Negative Negative : < 200 ng/mL 01/26/2020 8:56 AM [facility] Benzodiazepine Screen Urine Negative Negative : < 200 ng/mL 01/26/2020 8:56 AM [facility] Opiates Urine Positive(A) Negative : < 300 ng/mL 01/26/2020 8:56 AM [facility] Comment:Positive urine opiat e screening results should be confirmed by another generally accepted non-immunological method such as gas chromatography or mass spectrometry. Cocaine Metabolites Urine Negative Negative : < 300 ng/mL 01/26/2020 8:56 AM [facility] Phencyclidine Screen Urine Negative Negative : < 25 ng/ml 01/26/2020 8:56 AM [facility] Cannabinoids Screen Urine Negative Negative : <50 ng/mL 01/26/2020 8:56 AM [facility] Methadone Screen Urine Negative Negative : < 300 ng/mL 01/26/2020 8:56 AM [facility] Fentanyl Screen Urine Negative Negative : <1.0 ng/mL 01/26/2020 8:56 AM CDT [facility] Urine URINE / Unknown Collection / Unknown 01/26/2020 8:12 AM CDT 01/26/2020 8:29 AM CDT Narrative [facility] - 01/26/2020 8:56 AM CDT The Urine Toxicology Screening Panel does not screen for Propoxyphene, Meprobamate, Carisoprodol, Trazodone, vjjr-ouo-rdgmtzk medications and/or volatiles (Acetone, Isopropanol, Methanol or Ethylene Glycol). Ethanol, Salicylate, Acetaminophen, Tricyclic Antidepressants and several therapeutic drugs may be individually assayed in serum or plasma specimen. Toxicology testing by the [facility] is an aid to medical diagnosis and treatment of patients. No documented chain of custody was maintained. Results are intended to be used for clinical purposes only. Joshua Matute MD LAB - URINE CHEMISTR Y ORDERABLES Performing Organization Address City/State/[facility] Co de Phone Number [address] [address], [facility] [phone] * FL UROGRAM RETROGRADE (01/25/2020 8:15 PM CDT) Anatomical Region Laterality Modality Abdomen Radiographic Tavon ging 01/25/2020 8:36 PM CDT Impressions 02/01/2020 4:02 PM CDT IMPRESSION: No evidence of injury to the penile or bulbar urethra. Dynamic images showed retrograde flow of contrast into the bladder with normal appearance of the membranous and prostatic urethra. Dictated by Vivien Guzman MD (interventional radiology technologist). IDr. Clay M.D. have personally reviewed and [...] prostatic urethra. Dictated by Vivien Guzman MD (interventional radiology technologist). Dr. Clay Bahena M.D. have personally reviewed [...] of marrow edema associated with the reported A1lejgx fracture. There is associated severe compression of [...] PM CDT) ABO 01/25/2020 4:01 PM CDT [facility] Rh Type 01/25/2020 4:01 PM CDT [facility] Typem 01/25/2020 4:01 PM CDT [facility] Interpretation 01/25/2020 4:01 PM CDT [facility] Blood BLOOD SPECIMEN / Unknown Lab Venipuncture / Unknown 01/25/2020 2:20 PM CDT 01/25/2020 2:34 PM CDT Narrative [facility] - 01/25/2020 4:01 PM CDT Re-type confirmed per [facility] Blood Bank policies & procedures. Results documented in department. Shaggy James MD LAB - BLOOD BANK ORD ERABLES [facility] [address] [place] [address], [facility] [phone] * (ABNORMAL) TEG PLATELET MAPPING (01/25/2020 2:19 PM CDT) Interpretation TEG See Comment 01/25/2020 4:10 PM CDT [facility] React-Time 3.8(L) 5.0 - 10.0 MIN 01/25/2020 4:10 PM CDT [facility] K-Time 1.3 1.0 - 3.0 MIN 01/25/2020 4:10 PM CDT [facility] Angle A-BB 71.2 53.0 - 72.0 Degrees 01/25/2020 4:10 PM CDT [facility] MA (CK) BB 68.4 50.0 - 70.0 mm 01/25/2020 4:10 PM CDT [facility] LY30 0.0 0.0 - 8.0 % 01/25/2020 4:10 PM CDT [facility] CI-Coagulation Index 3.0 -3.0 - 3.0 01/25/2020 4:10 PM CDT [facility] MA-ADP 23.4 Reference Range: None mm 01/25/2020 4:10 PM CDT [facility] MA AA-BB 65.5 Reference Range: None mm 01/25/2020 4:10 PM CDT [facility] % ADP Inhibition 75.5 Reference Range:None % 01/25/2020 4:10 PM CDT [facility] G-Clot Strength 10.8 4.5 - 11.0 d/sc 01/25/2020 4:10 PM CDT [facility] % AA Inhibition 4.9 Reference Range: None % 01/25/2020 4:10 PM CDT [facility] Blood BLOOD SPECIMEN / Unknown Venipuncture / Unknown 01/25/2020 2:19 PM CDT 01/25/2020 2:32 PM CDT Narrative [facility] - 01/25/2020 4:10 PM [...] MD LAB - BLOOD BANK ORD ERABLES [facility] [address] [place] [address], [facility] [phone] * CT CHEST ABDOMEN PELVIS W CONT [...] compressive atelectasis. Dictated by Vivien Guzman MD (interventional radiology technologist). I, Dr. MANFRED BOYD have personally reviewed [...] cervical spine at the C3-C4 through the C5-[id number] is present due to posterior disc abnormalities [...] compressive atelectasis. Dictated by Vivien Guzman MD (interventional radiology technologist). I, Dr. MANFRED BOYD have personally reviewed [...] compressive atelectasis. Dictated by Vivien Guzman MD (interventional radiology technologist). I, Dr. MANFRED BOYD have personally reviewed [...] cervical spine at the C3-C4 through the C5-[id number] is present due to posterior disc abnormalities [...] compressive atelectasis. Dictated by Vivien Guzman MD (interventional radiology technologist). I, Dr. MANFRED BOYD have personally reviewed [...] compressive atelectasis. Dictated by Vivien Guzman MD (interventional radiology technologist). I, Dr. MANFRED BOYD have personally reviewed [...] cervical spine at the C3-C4 through the C5-[id number] is present due to posterior disc abnormalities [...] compressive atelectasis. Dictated by Vivien Guzman MD (interventional radiology technologist). I, Dr. MANFRED BOYD have personally reviewed [...] compressive atelectasis. Dictated by Vivien Guzman MD (interventional radiology technologist). I, Dr. MANFRED BOYD have personally reviewed [...] cervical spine at the C3-C4 through the C5-[id number] is present due to posterior disc abnormalities [...] compressive atelectasis. Dictated by Vivien Guzman MD (interventional radiology technologist). I, Dr. MANFRED BOYD have personally reviewed [...] ramus. Report dictated by Vivien Guzman MD (interventional radiology technologist). I, Dr. CHRISTINA HERNANDEZ have personally reviewed [...] ramus. Report dictated by Vivien Guzman MD (interventional radiology technologist). I, Dr. CHRISTINA HERNANDEZ have personally reviewed and interpreted this examination/study. This report was electronically signed by CHRISTINA HERNANDEZ on 01/25/2020 3:24 PM . Joshua Matute MD DIAGNOSTIC IMAGING O RDERABLES * ALCOHOL ETHYL BLOOD (01/25/2020 1:38 PM CDT) Interpretation Ethanol None Detected None Detected mg/dL 01/25/2020 2:08 PM CDT [facility] Comment:Ethanol levels less than 10 mg/dL are resulted as None detected . Blood BLOOD SPECIMEN / Unknown Venipuncture / Unknown 01/25/2020 1:38 PM CDT 01/25/2020 2:08 PM CDT Joshua Matute MD LAB - CHEMISTRY [facility] Organization Address City/State/ZIP Co de Phone Number [facility] [address] [place] [address], [facility] [phone] Care Teams Lime Slaker Relationship Specialty Start Date End Date Unknown, Provider PCP - General 08/30/23 Donavon Connor MD Family Medicine 08/30/23
--- OUTSIDE RECORDS SUMMARY | 2024-07-23 22:35 | XMS_ITS | Referral Summary ---
Author Organization [facility] Address [address] [place] [address] Care Team Providers Care Medical Communication Specialist Name Role Phone Unknown, Provider Primary Care Provider Donavon Holguin MD Unavailable [phone] Source Comments [facility],non-owned Affiliates and Associated Physician Practices is amultiple site organization consisting of ambulatory clinics and hospital sitesin [place], [place], [place] and [place]. This disclosure is being madepursuant to the Care Everywhere program and may not contain all information available regarding this patient. Last updated 18.[facility] Allergies Active Allergy Reactions Criticality Noted [...] tablet 01/01/2023 Active Blood Glucose Monitoring Suppl (Nanali Verio Flex System) w/Device KIT USE DIRECTED THREE TIMES DAILY 01/01/2023 Active erythromycin (Romycin) 5 MG/GM ophthalmic ointment 03/23/2023 Active PhoneFusionuch Ultra test strip USE TO TEST FOUR TIMES DAILY 03/27/2023 Active TRUEplus 5-Bevel Pen [place] 32G X 4 MM MISC USE TO INJECT INSULIN UP TO 5 TIMES DAILY 07/11/2023 Active TRUEplus Insulin Syringe 30G X 5/16 0.5 ML MISC USE DIRECTED EVERY DAY 01/01/2023 Active Lancets (Helix HealthTOUCH DELICA PLUS 33G EXTRA FINE LANCET) TEST [...] original. Could not [facility] afford to provide a Home Health nurse [...] Follow up in: three months with PCP, Origination Specialist, Director Of Convention Services, Radial Arm Saw Operator, Established eye manager critical care and Information Lead Last Assessment & Plan: Not on any [...] Follow up in: three months with PCP, Origination Specialist, Director Of Convention Services, Radial Arm Saw Operator, Established eye manager critical care and Information Lead Infected wound 04/12/2020 Sacral wound 02/19/2020 Urinary [...] Description 11/27/2024 10:30 AM CDT Office Visit [facility] - Ophthalmology [address] [place] [address] Medical Devices Implanted Type Area Orthotics Prosthetics Technician Device Identifier Shelf Expiration Date Model / Serial / Lot Gd Pin Orth 450mm 3.2mm Cocr Xtd Acc Implanted:Qty: 1 on 01/31/2020 by Dipesh Felix MD at [facility] Right: Sacral Iliac Joint [employer] [id number] / / Wshr 12.7mm 6.5mm Set Unv Orth Ss 1mm Implanted:Qty: 1 on 01/31/2020 by Dipesh Felix MD at [facility] Right: Sacral Iliac Joint [employer] [id number] / / Cannulated Screw, 4.0mm X40mm 1/2 Thread Implanted:Qty: 2 on 01/31/2020 by Dipesh Felix MD at [facility] Right: Ankle [id number] / / 8.0 X 9.5 Fully Threaded Screw Implanted:Qty: 1 on 01/31/2020 by Dipesh Felix MD at [facility] [id number] / / Plate 8 Hl Unv Matrixrib Ti Bone Nonster Implanted:Qty: 5 on 02/05/2020 by Dipesh Hernandez MD at [facility] Right: Chest Wall [employer]sa .009 / / 2.7 Mm Matrixrib Locking Screw, Self-Drilling, 11mm Implanted:Qty: 35 on 02/05/2020 by Dipesh Hernandez MD at [facility] Right: Chest Wall 501.211.0 1 / / 2.7 Mm Matrixrib Locking Screw, Self-Drilling, 12mm Implanted:Qty: 2 on 02/05/2020 by Dipesh Hernandez MD at [facility] Right: Chest Wall 04.501.212.0 1 / / Plate 16 Hl Precontr Lck Lopro 4th Rb Implanted:Qty: 1 on 02/05/2020 by Dipesh Hernandez MD at [facility] Right: Chest Wall [employer] 04.501.004 / / Clare[place] Uv Iol Ccaoto +23.0d Implanted:Qty: 1 on 09/28/2023 by Simeon Cannon MD at [facility] Left: Eye [employer] 02/20/2027 CCAOTO+23.0D / [id number] / N/A [employer] Iol Aspheric Uv Absorbing Iol Implanted:Qty: 1 on 10/12/2023 by Simeon Cannon MD at [facility] Right: Eye [employer] 02/18/2027 CCA0T0 +23.5D / [id number] / NA Procedures Procedure Name Priority Date/Time Associated Diagnosis Comments COMPREHENSIVE METABOLIC PANEL STAT 06/30/2020 2:29 PM FINGERPRINTER HEMOGLOBIN A1C Routine 04/18/2020 11:09 AM FINGERPRINTER from Last 3 Months or Most Recently Relevant to Health Maintenance Results * (ABNORMAL) COMPREHENSIVE METABOLIC PANEL (06/30/2020 2:29 PM FINGERPRINTER) BUN 29(H) 7 - 26 mg/dL 06/30/2020 3:00 PM [facility] Creatinine 1.2 0.6 - 1.2 mg/dL 06/30/2020 3:00 PM [facility] Sodium 138 136 - 145 mmol/L 06/30/2020 3:00 PM [facility] Potassium 3.7 3.5 - 4.5 mmol/L 06/30/2020 3:00 PM [facility] Chloride 96(L) 98 - 107 mmol/L 06/30/2020 3:00 PM [facility] CO2 28 22 - 29 mmol/L 06/30/2020 3:00 PM [facility] Glucose 144(H) 70 - 115 mg/dL 06/30/2020 3:00 PM [facility]INTER [facility] Calcium 8.8 8.4 - 10.2 mg/dL 06/30/2020 3:00 PM [facility] Protein Total 6.5 6.0 - 8.3 g/dL 06/30/2020 3:00 PM [facility] Albumin 2.8(L) 3.4 - 5.0 g/dL 06/30/2020 3:00 PM [facility] Bilirubin Total 0.4 0.2 - 1.2 mg/dL 06/30/2020 3:00 PM [facility] Alkaline Phosphatase 108 40 - 150 Units/L 06/30/2020 3:00 PM [facility] ALT 20 0 - 55 Units/L 06/30/2020 3:00 PM [facility] AST 17 5 - 34 Units/L 06/30/2020 3:00 PM [facility] Anion Gap 18 8 - 18 06/30/2020 3:00 PM [facility] BUN/Creatinine Ratio 24(H) 7 - 23 06/30/2020 3:00 PM [facility] Osmolality Calculated 294 270 - 300 mOsm/kg 06/30/2020 3:00 PM [facility] Albumin/Globulin Ratio 0.8(L) 1.1 - 2.3 06/30/2020 3:00 PM [facility] eGFR 60(L) >60 mL/min/1.7 3 m2 06/30/2020 3:00 PM [facility] Blood BLOOD SPECIMEN / Unknown Venipuncture / Unknown 06/30/2020 2:29 PM FINGERPRINTER 06/30/2020 2:37 PM [facility] Shaggy James MD LAB - CHEMISTRY KATHY CAMPA [facility] [address] [place] [address] [phone] * (ABNORMAL) HEMOGLOBIN A1C (04/18/2020 11:09 AM [facility]) Hemoglobin A1c 7.6(H) 4.4 - 6.3 % 04/19/2020 9:00 AM [facility] Estimated Average Glucose 171 mg/dL 04/19/2020 9:00 AM [facility] Comment: HbA1c Interpretation: Treatment target values recommended by ADA and other clinical organizations should be used to evaluate metabolic control in patients. Treatment Target Values: Normal : < 5.7% Pre-diabetes: 5.7-6.4% Diabetes: Equal to or greater than 6.5% Reference: [place] Diabetes Association Standards of Care in Diabetes -2014 In patients 70 years and older consider HbA1c target range of 7.0-7.5% Reference: Diabetes Mellitus in Older People: Position Statement on behalf of the International Association of Gerontology and Geriatrics (IAGG), the Diabetes Working Republican for Older People (EDWPOP), and the International Task Force of Experts in Diabetes. Ritesh Srinivasan, et al. J [place] Medical Directors Association. 2012 Test results diagnostic of diabetes should be repeated for confirmation. The Sebia Capillary 2 assay for the measurement of HbA1c is a National Glycohemoglobin Standardization Program (NGSP)certified method. Blood BLOOD SPECIMEN / Unknown Lab Venipuncture / Unknown 04/18/2020 11:09 AM FINGERPRINTER 04/18/2020 11:40 AM FINGERPRINTER Narrative [facility] - 04/19/2020 9:00 AM FINGERPRINTER note^note Zhane Granger MD LAB - CHEMISTRY OR DERABLES [facility] [address] [place] [address], [facility] [phone] from Last 3 Months or Most Recently [...] 3:26 PM 02/19/2020 5:52 PM Care Teams Medical Communication Specialist Relationship Specialty Start Date End Date Unknown, Provider PCP - General 08/30/23 Donavon Connor MD Family Medicine 08/30/23
--- OUTSIDE RECORDS SUMMARY | 2024-07-23 22:35 | XMS_ITS | Clinical Summary ---
Author Organization [facility] [employer] Address [address] [place] [address] Care Team Providers Care Tanker Driver Name Role Phone Unknown, Provider Primary Care Provider Donavon Holguin MD Unavailable [phone] Source Comments [facility],non-owned Affiliates and Associated Physician Practices is amultiple site organization consisting of ambulatory clinics and hospital sitesin [place], [place], [place] and [place]. This disclosure is being madepursuant to the Care Everywhere program and may not contain all information available regarding this patient. Last updated 18.[facility] [employer] Allergies Active Allergy Reactions Criticality Noted Date [...] tablet 01/01/2023 Active Blood Glucose Monitoring Suppl (Metavana Verio Flex System) w/Device KIT USE DIRECTED THREE TIMES DAILY 01/01/2023 Active erythromycin (Romycin) 5 MG/GM ophthalmic ointment 03/23/2023 Active Verimeduch Ultra test strip USE TO TEST FOUR TIMES DAILY 03/27/2023 Active TRUEplus 5-Bevel Pen [place] 32G X 4 MM MISC USE TO INJECT INSULIN UP TO 5 TIMES DAILY 07/11/2023 Active TRUEplus Insulin Syringe 30G X 5/16 0.5 ML MISC USE DIRECTED EVERY DAY 01/01/2023 Active Lancets (MEDNAXTOUCH DELICA PLUS 33G EXTRA FINE LANCET) TEST [...] original. Could not [facility] [place] afford to provide a Home Health nurse [...] Follow up in: three months with PCP, Textile Finisher, Bisque Finisher, Trommel Tender, Established eye childbirth and infant care teacher and Ct Scan Technician Last Assessment & Plan: Not on any [...] Follow up in: three months with PCP, Textile Finisher, Bisque Finisher, Trommel Tender, Established eye childbirth and infant care teacher and Ct Scan Technician Infected wound 04/12/2020 Sacral wound 02/19/2020 Urinary [...] Office Visit [facility] - Ophthalmology [address] [place] [phone] Health Maintenance Due Date Last Done Comments [...] this topic Medical Devices Implanted Type Area Station Examiner Device Identifier Shelf Expiration Date Model / Serial / Lot Gd Pin Orth 450mm 3.2mm Cocr Xtd Acc Implanted:Qty: 1 on 01/31/2020 by Dipesh Felix MD at [facility] Right: Sacral Iliac Joint [employer] [id number] / / Wshr 12.7mm 6.5mm Set Unv Orth Ss 1mm Implanted:Qty: 1 on 01/31/2020 by Dipesh Felix MD at [facility] Right: Sacral Iliac Joint [employer] [id number] / / Cannulated Screw, 4.0mm X40mm 1/2 Thread Implanted:Qty: 2 on 01/31/2020 by Dipesh Felix MD at [facility] Right: Ankle [id number] / / 8.0 X 9.5 Fully Threaded Screw Implanted:Qty: 1 on 01/31/2020 by Dipesh Felix MD at [facility] [id number] / / Plate 8 Hl Unv Matrixrib Ti Bone Nonster Implanted:Qty: 5 on 02/05/2020 by Dipesh Hernandez MD at [facility] Right: Chest Wall [employer] 04.501.009 / / 2.7 Mm Matrixrib Locking Screw, Self-Drilling, 11mm Implanted:Qty: 35 on 02/05/2020 by Dipesh Hernandez MD at [facility] Right: Chest Wall 04.501.211.0 1 / / 2.7 Mm Matrixrib Locking Screw, Self-Drilling, 12mm Implanted:Qty: 2 on 02/05/2020 by Dipesh Hernandez MD at [facility] Right: Chest Wall 04.501.212.0 1 / / Plate 16 Hl Precontr Lck Lopro 4th Rb Implanted:Qty: 1 on 02/05/2020 by Dipesh Hernandez MD at [facility] Right: Chest Wall [employer] 04.501.004 / / Clareon Uv Iol Ccaoto +23.0d Implanted:Qty: 1 on 09/28/2023 by Simeon Cannon MD at [facility] Left: Eye [employer] 02/20/2027 CCAOTO+23.0D / [id number] / N/A [employer] Iol Aspheric Uv Absorbing Iol Implanted:Qty: 1 on 10/12/2023 by Simeon Cannon MD at [facility] Right: Eye [employer] 02/18/2027 CCA0T0 +23.5D / [id number] / NA Procedures Procedure Name Priority Date/Time Associated Diagnosis Comments COMPREHENSIVE METABOLIC PANEL STAT 06/30/2020 2:29 PM [facility] SCAR[facility] TENDER HEMOGLOBIN A1C Routine 04/18/2020 11:09 AM [facility] from Last 3 Months or Most Recently Relevant to Health Maintenance Results * (ABNORMAL) COMPREHENSIVE METABOLIC PANEL (06/30/2020 2:29 PM [facility]) BUN 29(H) 7 - 26 mg/dL 06/30/2020 3:00 PM [facility] Creatinine 1.2 0.6 - 1.2 mg/dL 06/30/2020 3:00 PM [facility] Sodium 138 136 - 145 mmol/L 06/30/2020 3:00 PM [facility] Potassium 3.7 3.5 - 4.5 mmol/L 06/30/2020 3:00 PM [facility] Chloride 96(L) 98 - 107 mmol/L 06/30/2020 3:00 PM [facility] CO2 28 22 - 29 mmol/L 06/30/2020 3:00 PM [facility] Glucose 144(H) 70 - 115 mg/dL 06/30/2020 3:00 PM [facility] Calcium 8.8 8.4 - 10.2 mg/dL 06/30/2020 3:00 PM [facility] Protein Total 6.5 6.0 - 8.3 g/dL 06/30/2020 3:00 PM [facility] Albumin 2.8(L) 3.4 - 5.0 g/dL 06/30/2020 3:00 PM [facility] Bilirubin Total 0.4 0.2 - 1.2 mg/dL 06/30/2020 3:00 PM [facility] Alkaline Phosphatase 108 40 - 150 Units/L 06/30/2020 3:00 PM [facility] ALT 20 0 - 55 Units/L 06/30/2020 3:00 PM [facility] AST 17 5 - 34 Units/L 06/30/2020 3:00 PM [facility] Anion Gap 18 8 - 18 06/30/2020 3:00 PM [facility] BUN/Creatinine Ratio 24(H) 7 - 23 06/30/2020 3:00 PM [facility] Osmolality Calculated 294 270 - 300 mOsm/kg 06/30/2020 3:00 PM [facility] Albumin/Globulin Ratio 0.8(L) 1.1 - 2.3 06/30/2020 3:00 PM [facility] eGFR 60(L) >60 mL/min/1.7 3 m2 06/30/2020 3:00 PM [facility] Blood BLOOD SPECIMEN / Unknown Venipuncture / Unknown 06/30/2020 2:29 PM [facility] SCARFER TENDER 06/30/2020 2:37 PM [facility] Shaggy James MD LAB - CHEMISTRY KATHY CAMPA [facility] [address] [place] [address], [facility] [phone] * (ABNORMAL) HEMOGLOBIN A1C (04/18/2020 11:09 AM [facility]) Hemoglobin A1c 7.6(H) 4.4 - 6.3 % 04/19/2020 9:00 AM [facility] Estimated Average Glucose 171 mg/dL 04/19/2020 9:00 AM [facility] Comment: HbA1c Interpretation: Treatment target values recommended by ADA and other clinical organizations should be used to evaluate metabolic control in patients. Treatment Target Values: Normal : < 5.7% Pre-diabetes: 5.7-6.4% Diabetes: Equal to or greater than 6.5% Reference: [place] Diabetes Association Standards of Care in Diabetes -2014 In patients 70 years and older consider HbA1c target range of 7.0-7.5% Reference: Diabetes Mellitus in Older People: Position Statement on behalf of the International Association of Gerontology and Geriatrics (IAGG), the Diabetes Working Alliance Party for Older People (EDWPOP), and the International Task Force of Experts in Diabetes. Ritesh Srinivasan, et al. J [place] [employer] Association. 2012 Test results diagnostic of diabetes should be repeated for confirmation. The Sebia Capillary 2 assay for the measurement of HbA1c is a National Glycohemoglobin Standardization Program (NGSP)certified method. Blood BLOOD SPECIMEN / Unknown Lab Venipuncture / Unknown 04/18/2020 11:09 AM [facility]AR[facility] TEND[facility] 04/18/2020 11:40 AM [facility]ARFER TENDER Narrative [facility] - 04/19/2020 9:00 AM [facility] SCARFER TENDER note^note Zhane Granger MD LAB - CHEMISTRY OR DERABLES [facility] [address] [place] [address], [facility] [phone] from Last 3 Months or Most Recently [...] 3:26 PM 02/19/2020 5:52 PM Care Teams Tanker Driver Relationship Specialty Start Date End Date Unknown, Provider PCP - General 08/30/23 Donavon Connor MD Family Medicine 08/30/23
--- OUTSIDE RECORDS SUMMARY | 2024-07-23 22:35 | XMS_ITS | Clinical Summary ---
Author Organization [facility] Address [address] [place] [address] Care Team Providers Care Cemetery Keeper Name Role Phone No, Physician Primary Care Provider [phone] Bunny Ramires MD Unavailable [phone] Allergies Active Allergy Reactions Criticality Noted [...] Cardiomyopathy, ischemic 07/22/2024 Coronary artery disease involving [place] heart 0 07/15/2024 Constipation, unspecified constipation type 08/2022 Assessment & Plan (07/31/2022 11:22 AM [employer]OR [employer]): No symptoms or signs of mechanical obstruction. [...] 07/30/2022 Assessment & Plan (07/31/2022 11:21 AM SUPERVISOR [employer]): On metformin 500 mg twice daily at [...] 07/30/2022 Assessment & Plan (07/31/2022 10:46 AM SUPERVISOR [employer]): Not on any treatment at home. BP well controlled, CTM and add medications if needed Benign prostatic hyperplasia without lower urinary tract symptoms 07/30/2022 Assessment & Plan (07/31/2022 10:44 AM SUPERVISOR [employer]): Patient was recently started on Flomax and finasteride at OSH. Patients son reported patient was experiencing difficulty urinating - continue home meds and pcp follow up for further management Stage 3a chronic kidney disease 07/30/2022 Assessment & Plan (07/31/2022 10:48 AM SUPERVISOR [employer]): Creatinine is 1.48, up from the most recent of 1.2- 1.3 in 2021 and 2016 - improved to 1.37 on am labs - CTM and follow up outpatient Encounters Date Type Department Care Team Description 07/15/2024 Telephone [facility] Cardiology [address] [place] [address] [place] [phone] Gina Link MD 07/08/2024 2:00 PM [employer] Office Visit [facility] Cardiology [address] [place] [address] [address] [place] [phone] Gina Link MD Hypertension associated with diabetes (HCC) (Primary Dx); Coronary artery disease involving [place] coronary artery of [place] heart without angina pectoris; Cardiomyopathy, ischemic 07/02/2024 Orders Only [facility] Cardiology [address] [place] [address] [address] [place] [phone] Gerhard Ratliff MD 06/29/2024 Orders Only [facility] Information Management [address] [place] [address] Allegra Shin MD 06/26/2024 Orders Only [facility] Cardiology [address] [place] [phone] Peyton De Guzman MD from Last 3 Months Surgical History Surgery Date Site/Laterality Comments SC PERQ NL/PL LITHOTRP COMPLEX >2 CM 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 [...] on file Legal Sex Male 5:44 AM [employer] Gender Identity Not on file Sexual Orientation Not on file Obstetrics History Last Filed Vital Signs Vital Sign Reading Time Taken Comments Blood Pressure 116/60 07/08/2024 1:05 PM [employer] Pulse 88 07/08/2024 1:05 PM [employer] Temperature 36.5 C (97.7 F) 07/31/2022 8:00 AM [employer] Respiratory Rate 16 07/31/2022 7:55 AM [employer] Oxygen Saturation 99% 07/08/2024 1:05 PM [employer] Inhaled Oxygen Concentration - - Weight 67.9 kg (149 lb 9.6 oz) 07/08/2024 1:05 P M [employer] Height 162.6 cm (5' 4 ) 07/08/2024 1:05 PM [employer] Body Mass Index 25.68 07/08/2024 1:05 PM [employer] Plan of Treatment Health Maintenance Due Date [...] CARDIOLOGY DOCUMENT SCAN Routine 07/01/2024 3:53 PM [employer] CARDIOLOGY DOCUMENT SCAN Routine 06/30/2024 3:49 PM [employer] CARDIOLOGY DOCUMENT SCAN Routine 06/29/2024 3:44 PM [employer] SCAN - RADIOLOGY/IMAGING 06/29/2024 CARDIOLOGY DOCUMENT SCAN Routine 06/28/2024 3:37 PM [employer] CARDIOLOGY DOCUMENT SCAN Routine 06/27/2024 3:32 PM [employer] CARDIOLOGY DOCUMENT SCAN Routine 06/26/2024 3:20 PM [employer] CARDIOLOGY DOCUMENT SCAN Routine 06/24/2024 3:16 PM [employer] CARDIOLOGY DOCUMENT SCAN Routine 06/23/2024 3:10 PM [employer] CARDIOLOGY DOCUMENT SCAN Routine 06/22/2024 3:04 PM [employer] CARDIOLOGY DOCUMENT SCAN Routine 06/22/2024 3:03 PM [employer] CARDIOLOGY DOCUMENT SCAN Routine 06/22/2024 3:00 PM [employer] EGFR Routine 07/31/2022 5:30 AM [employer] HEMOGLOBIN A1C Routine 07/30/2022 10:23 PM [employer] LIPID PANEL Routine 07/30/2022 10:23 PM [employer] from Last 3 Months or Most Recently Relevant to Health Maintenance Results * Cardiology Document Scan (07/01/2024 3:53 PM [employer]) Anatomical Region Laterality Modality Other us Hennessy Ko MD CV CARDIAC SERVICES PROCEDURES F inal Result * Cardiology Document Scan (06/30/2024 3:49 PM [employer]) Anatomical Region Laterality Modality Other Result David Shin MD CV CARDIAC SERVICES PRO CEDURES Final Result * Cardiology Document Scan (06/29/2024 3:44 PM [employer]) Anatomical Region Laterality Modality Other Result David Allegra Shin MD CV CARDIAC SERVICES PRO CEDURES Final Result * SCAN - RADIOLOGY/IMAGING (06/29/2024) Anatomical Region Laterality Modality Other Result David Allegra Shin MD Final R esult * Cardiology Document Scan (06/28/2024 3:37 PM [employer]) Anatomical Region Laterality Modality Other Result David Allegra Shin MD CV CARDIAC SERVICES PRO CEDURES Final Result * Cardiology Document Scan (06/27/2024 3:32 PM [employer]) Anatomical Region Laterality Modality Other Result David Ratliff MD CV CARDIAC SERVICES PROCEDURES F inal Result * Cardiology Document Scan (06/26/2024 3:20 PM [employer]) Anatomical Region Laterality Modality Other Result David Allegra Shin MD CV CARDIAC SERVICES PRO CEDURES Final Result * Cardiology Document Scan (06/24/2024 3:16 PM [employer]) Anatomical Region Laterality Modality Other Allegra Shin MD CV CARDIAC SERVICES PRO CEDURES Final Result * Cardiology Document Scan (06/23/2024 3:10 PM [employer]) Anatomical Region Laterality Modality Other us Peyton De Guzman MD CV CARDIAC SERVICES PROCEDU RES Final Result * Cardiology Document Scan (06/22/2024 3:04 PM [employer]) Anatomical Region Laterality Modality Other us Peyton De Guzman MD CV CARDIAC SERVICES PROCEDU RES Final Result * Cardiology Document Scan (06/22/2024 3:03 PM [employer]) Anatomical Region Laterality Modality Other Peyton De Guzman MD CV CARDIAC SERVICES PROCEDU RES Final Result * Cardiology Document Scan (06/22/2024 3:00 PM [employer]) Anatomical Region Laterality Modality Other Peyton De Guzman MD CV CARDIAC SERVICES PROCEDU RES Final Result * (ABNORMAL) eGFR (07/31/2022 5:30 AM [employer]) eGFR 54(L) 90 - 130 mL/min/1. 73 [...] last reviewed 2021. Blood 07/31/2022 5:30 AM [employer] 07/31/2022 5:51 AM [employer] Lizabeth Strong MD LAB BLOOD ORDERABLES Fin al Result [facility] Department [place] [address] * (ABNORMAL) Hemoglobin A1c (07/30/2022 10:23 PM [employer]) Hgb A1C 10.7(H) 4.0 - 5.6 % [facility] Estimated Average Glucose 260 mg/dL [facility] Comment: The ADA recommends reporting an estimated Average Glucose (eAG) with all Hemoglobin A1c results using the equation derived from a study of 507 normal and diabetic adults. Minority populations were underrepresented and children were not included. (Diabetes Care 2020; 43(S1): S66-S76). The eAG is not equivalent to a fasting glucose. Blood 07/30/2022 10:2 3 PM [employer] 07/30/2022 10:39 PM [employer] Lizabeth Strong MD LAB BLOOD ORDERABLES Fin al Result [facility] Department [place] [address] * (ABNORMAL) Lipid panel (07/30/2022 10:23 PM [employer]) Cholesterol 167 30 - 199 mg/dL [facility] Comment: Interpretive Data Ages < [...] revised on 2018. Triglycerides 155(H) <=149 mg/dL [facility] Comment: Interpretive Data Ages < [...] revised on 2018. HDL 43 >=40 mg/dL [facility] Comment: Interpretive Data Ages < [...] on 2018. LDL, calculated 93 <=129 mg/dL [facility] Comment: Interpretive Data Ages < [...] revised on 2018. Non-HDL Cholesterol 124 mg/dL [facility] Comment: Interpretive Data Ages < [...] last revised on 2018. Chol/HDL ratio 4 [facility] Blood 07/30/2022 10:2 3 PM [employer] 07/30/2022 10:39 PM [employer] us Lizabeth Strong MD LAB BLOOD ORDERABLES Fin al Result [facility] Department [place] [address] from Last 3 Months or Most Recently Relevant to Health Maintenance Insurance [id number] [place] [address] [phone] [place] [address] [facility] Advance Directives For more information, please contact: [phone] * Full Code (Latest Code Status on File) Date Activated Date Inactivated Comments 07/30/2022 9:33 PM 07/31/2022 6:01 PM Care Teams Cemetery Keeper Relationship Specialty Start Date End Date No, Physician PCP - General 07/30/22 Bunny Ramires MD 07/30/22
--- OUTSIDE RECORDS SUMMARY | 2024-07-23 22:35 | XMS_ITS | Clinical Summary ---
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, stage 3 ([facility]) 05/25/2020 05/04/2022 Decreased mobility 02/10/2020 2 Fracture of left clavicle 01/26/2020 Fracture of manubrium 01/26/20202021 Fracture of medial malleolus of right tibia 01/26/2020 05/04/2022 L1 vertebral fracture ([facility]) 01/25/2020 05/04/2022 Diabetes mellitus ([facility]) 01/13/2014 2021 Encounters Date Type Department Care Team Description 07/23/2024 12:15 PM PASSENGER BARGE MASTER Home Care Visit [address] [address] Preeti Chang, JEREMY SN OASIS RESUMPTION OF CARE 07/23/2024 Plan of Care Documentation [address] [phone] 07/22/2024 9:30 AM PASSENGER BARGE MASTER Home Care Visit [address] [phone] Makenzie Cheema RN SN NON ADMIT LETTY 07/19/2024 10:15 AM PASSENGER BARGE MASTER Home Care Visit [address] [phone] Nereida London RN SN OASIS TRANSFER W/OUT DC 07/18/2024 Scan [facility] SRVCS Scanned, Doc Med Group Image (SCAN) 07/17/2024 Scan [facility] Scanned, Doc Med Group Image (SCAN) 07/15/2024 9:00 AM PASSENGER BARGE MASTER Home Care Visit [address] [address] Maida eBllo, CABLEMAN CABLEMAN HOME VISIT 07/13/2024 Scan [facility] INFO SRVCS Scanned, Doc Med Group Image (SCAN) 07/11/2024 11:15 AM PASSENGER BARGE MASTER Home Care Visit [address] [address] Maida Bello, CABLEMAN CABLEMAN HOME VISIT 07/09/2024 12:00 PM PASSENGER BARGE MASTER Home Care Visit [facility] Care [address] [phone] Juliana Mcgrath RN SN HOME VISIT 07/05/2024 11:30 AM PASSENGER BARGE MASTER Home Care Visit [facility] Care [address] [phone] Anna Viera RN SN HOME VISIT 07/04/2024 12:30 PM PASSENGER BARGE MASTER Home Care Visit [facility] Care [address] [phone] Wells, Yuridia K, OT OT INITIAL EVALUATION 07/04/2024 Scan [facility] SRVCS Scanned, Doc Med Group 07/04/2024 Telephone [facility] [address] [place] [address] Donavon Connor MD Advice 07/03/2024 3:00 PM PASSENGER BARGE MASTER Home Care Visit [address] [place] [address] [place] [address] Devin Dean, PT PT INITIAL EVALUATION 07/03/2024 10:20 AM PASSENGER BARGE MASTER Office Visit [facility] [address] [place] [address] Donavon Connor MD TCM (Was admitted to [facility] for heart attack and was readmitted due to the Flu,Home health called to reconcile pt med list. States pt BP has been running low, has pitting edema in both legs refusing to use spirometer. States he may need a repeat BMP.///) 07/03/2024 Travel 07/02/2024 11:30 AM PASSENGER BARGE MASTER Home Care Visit [address] [place] [address] Anna Viera, RN SN OASIS START OF CARE 07/02/[address] [place] [address] [place] [address] Donavon Connor MD 07/02/2024 Plan of Care Documentation [address] [place] [address] [place] [address] 07/01/2024 Scan [facility] SRVCS Scanned, Doc Med Group 07/01/[address] [place] [address] Scanned, [facility] 07/01/[address] [place] [address] Donavon Connor MD Advise 06/27/2024 Scan [facility] SRVCS Scanned, Doc Med Group Image (SCAN) 06/26/2024 Scan [facility] Scanned, Doc Med Group Ultrasound (SCAN); CT (SCAN) 06/26/2024 Telephone [facility] [address] [place] [phone] Donavon Connor MD Advice 06/24/2024 Scan [facility] SRVCS Scanned, Doc Med Group Echo (SCAN) 06/24/2024 Telephone [facility] [address] [place] [address] Donavon Connor MD Refill Request 06/22/2024 Scan [facility]VCS Scanned, Doc Med Group 06/22/2024 Scan [facility] SRVCS Scanned, Doc Med Group Image (SCAN) 05/15/2024 9:00 AM PASSENGER BARGE MASTER Home Care Visit [address] [place] [address] [place] [address] Catie Zabala, PT PT OASIS DISCHARGE 05/14/[address] [phone] Donavon Connor MD Refill Request 05/12/2024 Home Care Visit [address] [place] [address] [place] [address] Catie Zabala, PT [facility] 05/08/2024 1:45 PM PASSENGER BARGE MASTER Home Care Visit [facility] Care [address] [place] [address] [place] [address] Loki Mart, CABLEMAN CABLEMAN HOME VISIT 05/06/2024 12:45 PM PASSENGER BARGE MASTER Home Care Visit [address] [place] [address] [place] [address] Loki Mart, CABLEMAN CABLEMAN HOME VISIT 05/01/2024 1:00 PM PASSENGER BARGE MASTER Home Care Visit [address] [address] Loki Mart, CABLEMAN CABLEMAN HOME VISIT 04/29/2024 1:45 PM PASSENGER BARGE MASTER Home Care Visit [address] [address] Loki Mart, CABLEMAN CABLEMAN HOME VISIT 04/29/2024 11:00 AM PASSENGER BARGE MASTER Home Care Visit [address] [address] Mounika Bingham, JEREMY SN DISCIPLINE DISCHARGE 04/24/2024 11:00 AM PASSENGER BARGE MASTER Home Care Visit [address] [address] Loki Mart, CABLEMAN CABLEMAN HOME VISIT 04/23/2024 10:00 AM PASSENGER BARGE MASTER Home Care Visit [address] [address] Mounika Bingham RN SN HOME VISIT 04/22/2024 1:45 PM PASSENGER BARGE MASTER Home Care Visit [address] [address] Marti Carlson, AIRLINE CAPTAIN AIRLINE CAPTAIN INITIAL EVALUATION from Last 3 Months Immunizations [...] materials from doctor or pharmacy Often 07/23/2024 [facility] Utilities Answer Date Recorded In the past 12 months has e [employer], gas, oil, or water fflap threatened to shut off services in your [...] than three times a week 12/30/2022 Attends Congregational Services Not on file 12/30 Do you belong to any clubs o r organizations such as episcopalian groups, unions, fraternal or athletic groups, or [...] place to sleep or slept in a skilled nursing (including now)? No 06/24/2023 Housing Stability Vital [...] time in the past [address] [facility], were you homeless or living in a skilled nursing (including now)? No 04/10/2024 Sex and Gender Information Value Date Recorded Sex Assigned at Male 04/09/2024 9:16 PM PASSENGER BARGE MASTER Legal Sex Male 8:36 PM CDT Gender Identity Male 04/09/2024 9:16 PM PASSENGER BARGE MASTER Sexual Orientation Straight 04/09/2024 9: 16 PM PASSENGER BARGE MASTER Last Filed Vital Signs Vital Sign Reading Time Taken Comments Blood Pressure 140/80 07/23/2024 11:10 AM PASSENGER BARGE MASTER Pulse 77 07/23/2024 11:10 AM PASSENGER BARGE MASTER Temperature 36.7 C (98.1 F) 07/23/2024 11:10 AM PASSENGER BARGE MASTER Respiratory Rate 18 07/23/2024 11:10 AM PASSENGER BARGE MASTER Oxygen Saturation 99% 07/23/2024 11:10 AM PASSENGER BARGE MASTER Inhaled Oxygen Concentration - - Weight 68.9 kg (152 lb) 07/23/2024 11:10 AM PASSENGER BARGE MASTER Height 162.6 cm (5' 4 ) 07/23/2024 11:10 AM PASSENGER BARGE MASTER Body Mass Index 26.09 07/23/2024 11:10 AM PASSENGER BARGE MASTER Plan of Treatment Upcoming Encounters Date Type Department Care Team (Late st Contact Info) Description 07/24/2024 8:40 AM PASSENGER BARGE MASTER Office Visit [facility] Medical Group [facility] [place] [address] [place] [address] Donavon Connor MD [phone] [address] 07/25/2024 3:00 PM PASSENGER BARGE MASTER Home Care Visit [address] [place] [address] [place] [address] Catie Zabala, PT [address] [place], [place] [phone] 07/26/2024 8:00 AM PASSENGER BARGE MASTER Home Care Visit [address] Care [facility] [place] [address] [place] [address] Juliana Mcgrath RN 07/30/2024 8:00 AM PASSENGER BARGE MASTER Home Care Visit [address] [place] [address] [place] [address] Juliana Mcgrath RN 08/02/2024 8:00 AM PASSENGER BARGE MASTER Appointment [address] [place] [address] [place] [address] Juliana Mcgrath RN 01/06/2025 11:00 AM CDT Office Visit [facility] Medical Group Multispecialty Care - [facility] [address] [facility], [address] [place] [address] Lai Anderson MD [address] [place] [address] Health Maintenance Due Date Last Done Comments Kidney Health Evaluation 1950 Pneumococcal Vaccine: 65+ Years (1 of 2 - PCV) 02/02/1954 DTaP, Tdap and Td Vaccines (1 - Tdap) 02/02/1967 Zoster Vaccines (1 of 2) 02/02/1998 RSV Immunization or 60+ Years (1 - 1-dose 75+ series) 02/02/2023 COVID-19 Vaccine (3 - season) 2024 11/13/2020, 10/22/2020 PHQ-2 (Physician [place]) 05/29/2024 04/19/2024 Hemoglobin A1C 08/30/2024 03/01/2024, 05/30, [...] Alvarez, RN Medical Devices Implanted Type Area Cotton Broker Device Identifier Shelf Expiration Date Model / Serial / Lot Mesh Bard Marlex 3 X 6 [id number] - [id number] Implanted:Qty : 1 on 12/28/2021 by Abundio Valverde MD at [facility] Mesh Right: Abdomen [employer] - [employer] [id number] 04/25/2026 [id number] / / [id number] Procedures Procedure Name Priority Date/Time Associated Diagnosis [...] complication, with long-term current use of insulin ([facility] HHS/HCC) HEMOGLOBIN, GLYCOSYLATED Routine 03/01/2024 9:46 AM CDT Primary hypertension Mixed hyperlipidemia Type 2 diabetes mellitus without complication, with long-term current use of insulin ([facility] HHS/HCC) from Last 3 Months or [...] Med Group Scanned SCANNING Final Resu lt [facility] ONBASE * (ABNORMAL) HEMOGLOBIN, GLYCOSYLATED (03/01/2024 9:46 AM CDT) HGB A1C 8.3(H) <5.7 % 03/01/2024 12:43 PM CDT [facility] Comment: ADA GUIDELINES 2010 5.7 TO 6.4% INCREASED RISK OF DIABETES > OR = 6.5% CONSISTENT WITH DIABETES ESTIMATED AVG GLUCOSE 192 mg/dL 03/01/2024 12:43 PM CDT [facility] 03/01/2024 9:46 AM CDT Donavon Connor MD LABORATORY Final Result [facility] [address] [place] [address], [place] [phone] * (ABNORMAL) LIPID PANEL (03/01/2024 9:46 AM CDT) CHOLESTEROL 216(H) <200 MG/DL 03/01/2024 3:31 PM CDT [facility] TRIGLYCERIDES 345(H) <150 MG/DL 03/01/2024 3:31 PM CDT [facility] HDL 31(L) >40.0 MG/DL 03/04/2024 3:44 PM CDT [facility] LDL (CALCULATED) 116(H) <100 MG/DL 03/04/2024 3:44 PM CDT [facility] NON HDL CHOLESTEROL 185(H) <130 MG/DL 03/04/2024 3:44 PM T [facility] CHOL/HDL RATIO 7.0(H) 0.0 - 4.5 03/04/2024 3:44 PM CDT [facility] VLDL CALCULATION 69(H) 5 - 55 MG/DL 03/01/2024 3:31 PM CDT [facility] LIPID INTERPRETATION 03/01/2024 3:31 PM T [facility] Comment: NIH CONCENSUS REPORT RECOMMENDATIONS: ADULT CHILD LOW RISK: CHOLESTEROL <200 <170 TRIGLYCERIDE <150 --- HDL >=60 --- LDL <100 <110 BORDERLINE: CHOLESTEROL 200-239 170-199 TRIGLYCERIDE 150-199 --- HDL 40-59 --- LDL 100-159 110-129 HIGH RISK: CHOLESTEROL >=240 >=200 TRIGLYCERIDE >=200 --- HDL <40 --- LDL >=160 >=130 03/01/2024 9:46 AM CDT us Donavon Connor MD LABORATORY Final Result [facility] [address] [place] [address], from Last 3 Months or Most Recently Relevant to Health Maintenance Additional Health Concerns 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
--- OUTSIDE RECORDS SUMMARY | 2024-07-23 22:36 | XMS_ITS | Encounter Summary ---
Author Organization [facility] Address [facility] [place] [address] Care Team Providers Care Director Of Retail Merchandising Name Role Phone Donavon Connor MD Primary Care Provider [phone] Reason for Visit * Reason Comments Image [...] from doctor or pharmacy Often 07/02/2024 [facility] Utilities Answer Date Recorded In the [...] than three times a week 12/30/2022 Attends [employer] Services Not on file 12/30 Do you [...] place to sleep or slept in a penitentiary (including now)? No 06/24/2023 Housing Stability Vital Sign Answer Macho e Recorded In the last 12 months, was t here a time when you were not able to pay the mortgage or rent on time? No 04/10/2024 In the past 12 months, how m any times have you moved where you were living? 0 04/10/2024 At any time in the past 12 m [facility], were you homeless or living in a penitentiary (including now)? No 04/10/2024 Sex and Gender Information Value Date Recorded Sex Assigned at Male 04/09/2024 9:16 PM GUIDANCE COUNSELOR Legal Sex Male 8:36 PM CDT Gender Identity Male 04/09/2024 9:16 PM GUIDANCE COUNSELOR Sexual Orientation Straight 04/09/2024 9: 16 PM GUIDANCE COUNSELOR documented as of this encounter Functional Status * Are you deaf or do you have serious difficulty hearing Answer Date of Assessment Author Status No 04/09/2024 9:27 PM GUIDANCE COUNSELOR Shayla Swan RN Active * Are you blind or do you have serious difficulty seeing, even when wearing glasses? Answer Date of Assessment Author Status No 04/09/2024 9:27 PM GUIDANCE COUNSELOR Shayla Swan RN Active * Do you have serious difficulty walking or climbing stairs? Answer Date of Assessment Author Status No 04/09/2024 9:27 PM GUIDANCE COUNSELOR Shayla Swan RN Active * Do you have difficulty dressing or bathing? Answer Date of Assessment Author Status No 04/09/2024 9:27 PM GUIDANCE COUNSELOR Shayla Swan RN Active * Because of [...] st Contact Info) Description 07/24/2024 8:40 AM GUIDANCE COUNSELOR Office Visit [facility] Medical Group Family and Sports Medicine - [address] [address] Donavon Connor MD [address] [address] 07/25/2024 3:00 PM GUIDANCE COUNSELOR Home Care Visit [address] [place] [address] Catie Zabala, PT [address] [place], [place] [address] 07/26/2024 8:00 AM GUIDANCE COUNSELOR Home Care Visit [facility] Home Care [address] [place] [address] Juliana Mcgrath, RN 07/30/2024 8:00 AM GUIDANCE COUNSELOR Home Care Visit [facility] Care [address] [place] [address] Juliana Mcgrath, RN 08/02/2024 8:00 AM GUIDANCE COUNSELOR Appointment [facility] Care [address] [place] [address] Juliana Mcgrath RN 01/06/2025 11:00 AM CDT Office Visit [facility] Medical Group Multispecialty Care - [facility] 3 [facility], [address] [place] [address] Lai Anderson MD 3 [place] [address] documented as of this encounter Goals Goal [...] Total Score: 0 04/19/20 24 9:36 AM GUIDANCE COUNSELOR documented as of this encounter Care Teams Director Of Retail Merchandising Relationship Specialty Start Date End Date Donavon Connor MD 670 [facility] [address] [place] [address] PCP - General FAMILY PRACTICE 04/13/20 documented as of this encounter
--- OUTSIDE RECORDS SUMMARY | 2024-07-23 22:36 | XMS_ITS | Encounter Summary ---
Author Organization [facility] Address [facility] [place] [address] Care Team Providers Care Hotel Casino Floorperson Name Role Phone Donavon Connor MD Primary Care Provider [phone] Encounter Details Date Type Department Care Team (Late st Contact Info) Description 07/23/2024 Plan of Care Documentation [facility] Care [address] [place] [address] Social History Tobacco Use Types [...] materials from doctor or pharmacy Often 07/23/2024 [facility] Utilities Answer Date Recorded In the past 12 months has e [employer], gas, oil, or water company threatened to [...] any clubs o r organizations such as yazidism groups, unions, fraternal or athletic groups, or [...] place to sleep or slept in a alf (including now)? No 06/24/2023 Housing Stability Vital Sign Answer Macho e Recorded In the last 12 months, was t here a time when you were not able to pay the mortgage or rent on time? No 04/10/2024 In the past 12 months, how m any times have you moved where you were living? 0 04/10/2024 At any time in the past 12 m [facility], were you homeless or living in a alf (including now)? No 04/10/2024 Sex and Gender Information Value Date Recorded Sex Assigned at Male 04/09/2024 9:16 PM WIRE SPINNER Legal Sex Male 8:36 PM CDT Gender Identity Male 04/09/2024 9:16 PM WIRE SPINNER Sexual Orientation Straight 04/09/2024 9: 16 PM WIRE SPINNER documented as of this encounter Functional Status * Are you deaf or do you have serious difficulty hearing Answer Date of Assessment Author Status No 04/09/2024 9:27 PM WIRE SPINNER Shayla Swan RN Active * Are you [...] st Contact Info) Description 07/24/2024 8:40 AM WIRE SPINNER Office Visit [facility] Medical Group Family and Sports Medicine - [address] [address] Donavon Connor MD [address] [address] 07/25/2024 3:00 PM WIRE SPINNER Home Care Visit [address] [place] [address] Catie Zabala, PT [address] [place], [place] [address] 07/26/2024 8:00 AM WIRE SPINNER Home Care Visit [facility] Home Care [address] Care [facility] [place] [address] [place] [address] Juliana Mcgrath, JEREMY 07/30/2024 8:00 AM WIRE SPINNER Home Care Visit [facility] Care [address] [place] [address] Juliana Mcgrath RN 08/02/2024 8:00 AM WIRE SPINNER Appointment [facility] Care [address] [place] [address] Juliana Mcgrath RN 01/06/2025 11:00 AM CDT Office Visit [facility] Medical Group Multispecialty Care - [facility] 3 [facility], [address] [place] [address] Lai Anderson MD 3 [place] [address] documented as of this encounter Goals Goal [...] Total Score: 0 04/19/20 24 9:36 AM WIRE SPINNER documented as of this encounter Care Teams Hotel Casino Floorperson Relationship Specialty Start Date End Date Donavon Connor MD 670 [facility] 200 [place] [address] PCP - General FAMILY PRACTICE 04/13/20 documented as of this encounter
--- OUTSIDE RECORDS SUMMARY | 2024-07-23 22:36 | XMS_ITS | Encounter Summary ---
Author Organization [facility] Address [facility] [place] [address] Care Team Providers Care Loss Prevention Coordinator Name Role Phone Donavon Connor MD Primary Care Provider [phone] Reason for Visit * Auth/Cert (Routine) Specialty Diagnoses / Procedures Referred By Janel goyal Referred To Contact Home Health Services Referral ID Status Reason Start Date Expiration Date Visits Re quested Visits Authorized [id number] 1 7 Encounter Details Date Type Department Care Team (Latest Contact Info) Description 07/23/2024 12:15 PM SNAGGER Home Care Visit [facility] Care [address] [place] [address] Preeti Chnag, RN [phone] (Work) SN OASIS RESUMPTION OF CARE [...] materials from doctor or pharmacy Often 07/23/2024 [facility] Utilities Answer Date Recorded In the past [...] than three times a week 12/30/2022 Attends [employer] Services Not on file 12/30 Do you belong to any clubs o r organizations such as samaritan groups, unions, fraternal or athletic groups, or [...] any time in the past 12 m [facility], were you homeless or living in a penitentiary (including now)? No 04/10/2024 Sex and Gender Information Value Date Recorded Sex Assigned at Male 04/09/2024 9:16 PM SNAGGER Legal Sex Male 8:36 PM CDT Gender Identity Male 04/09/2024 9:16 PM SNAGGER Sexual Orientation Straight 04/09/2024 9: 16 PM SNAGGER documented as of this encounter Last Filed Vital Signs Vital Sign Reading Time Taken Comments Blood Pressure 140/80 07/23/2024 11:10 AM SNAGGER Pulse 77 07/23/2024 11:10 AM SNAGGER Temperature 36.7 C (98.1 F) 07/23/2024 11:10 AM SNAGGER Respiratory Rate 18 07/23/2024 11:10 AM SNAGGER Oxygen Saturation 99% 07/23/2024 11:10 AM SNAGGER Inhaled Oxygen Concentration - - Weight 68.9 kg (152 lb) 07/23/2024 11:10 AM SNAGGER Height 162.6 cm (5' 4 ) 07/23/2024 11:10 AM SNAGGER Body Mass Index 26.09 07/23/2024 11:10 AM SNAGGER documented in this encounter Functional Status * [...] st Contact Info) Description 07/24/2024 8:40 AM SNAGGER Office Visit [facility] Medical Group Family and Sports Medicine - [place] [address] [place] [address] Donavon Connor MD [address] [place] 200 [place] [address] 07/25/2024 3:00 PM SNAGGER Home Care Visit [facility] Care [address] [facility] [place] [address] Catie Zabala, PT [address] [place] [address] 07/26/2024 8:00 AM SNAGGER Home Care Visit [facility] Care [address] [place] [address] Juliana Mcgrath, RN 07/30/2024 8:00 AM SNAGGER Home Care Visit [facility] Care [address] [place] [address] Juliana Mcgrath, RN 08/02/2024 8:00 AM SNAGGER Appointment [address] [place] [address] Juliana Mcgrath, RN 01/06/2025 11:00 AM CDT Office Visit [facility] Medical Group Multispecialty Care - [facility] 3 [facility], [address] [place] [address] Lai Anderson MD 3 [place] [address] documented as of this encounter Goals Goal [...] Total Score: 0 04/19/20 24 9:36 AM SNAGGER documented as of this encounter Home Health Visit - Care Plan Visit Details Visit Type -SN - OASIS Resum ption of Care Discipline -Assisted Problems Problem Description Start Date Status Goals [...] in daily log. Instruct to notify physician dump motor operator of fasting blood sugar if <70mg/dl [...] understanding documented in this encounter Care Teams Loss Prevention Coordinator Relationship Specialty Start Date End Date Donavon Connor MD [address] [address] PCP - General FAMILY PRACTICE 04/13/20 documented as of this encounter
--- OUTSIDE RECORDS SUMMARY | 2024-07-23 22:36 | XMS_ITS | Clinical Summary ---
Author Organization [facility] Address [address] [place] [address] Care Team Providers Care Model And Mold Maker Name Role Phone Unavailable Primary Care Provider [...]
--- OUTSIDE RECORDS SUMMARY | 2024-07-23 22:36 | XMS_ITS | Referral Summary ---
Author Organization [facility] Address [address] [place] [address] Care Team Providers Care Supervisor [employer] Name Role Phone No, Physician Primary Care Provider [phone] Bunny Ramires MD Unavailable [phone] Encounters Date Type Department Care Team Description 07/15/2024 Telephone [facility] Medical Group Cardiology [address] [facility] [address] [place] [address] Gina Link MD 07/08/2024 2:00 PM SCHOOL BOAT DRIVER Office Visit [facility] Medical Group Cardiology [address] [place] [address] [address] [place] [address] Gina Link MD Hypertension associated with diabetes (HCC) (Primary Dx); 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 [address] [place] [address] Gerhard Ratliff MD 06/29/2024 Orders Only [facility] Health Information Management [address] [place] [address] Allegra Shin MD 06/26/2024 Orders Only [facility] Medical Group Cardiology [address] [facility] [address] [place] [address] Peyton De Guzman MD from [...] Cardiomyopathy, ischemic 07/22/2024 Coronary artery disease involving skokomish heart 0 07/15/2024 Constipation, unspecified constipation type 08/2022 Assessment & Plan (07/31/2022 11:22 AM SCHOOL BOAT DRIVER): No symptoms or signs of mechanical obstruction. [...] 07/30/2022 Assessment & Plan (07/31/2022 11:21 AM SCHOOL BOAT DRIVER): On metformin 500 mg twice daily at [...] 07/30/2022 Assessment & Plan (07/31/2022 10:46 AM SCHOOL BOAT DRIVER): Not on any treatment at home. BP well controlled, CTM and add medications if needed Benign prostatic hyperplasia without lower urinary tract symptoms 07/30/2022 Assessment & Plan (07/31/2022 10:44 AM SCHOOL BOAT DRIVER): Patient was recently started on Flomax and finasteride at OSH. Patients son reported patient was experiencing difficulty urinating - continue home meds and pcp follow up for further management Stage 3a chronic kidney disease 07/30/2022 Assessment & Plan (07/31/2022 10:48 AM SCHOOL BOAT DRIVER): Creatinine is 1.48, up from the most [...] on file Legal Sex Male 5:44 AM SCHOOL BOAT DRIVER Gender Identity Not on file Sexual Orientation Not on file Last Filed Vital Signs Vital Sign Reading Time Taken Comments Blood Pressure 116/60 07/08/2024 1:05 PM SCHOOL BOAT DRIVER Pulse 88 07/08/2024 1:05 PM SCHOOL BOAT DRIVER Temperature 36.5 C (97.7 F) 07/31/2022 8:00 AM SCHOOL BOAT DRIVER Respiratory Rate 16 07/31/2022 7:55 AM SCHOOL BOAT DRIVER Oxygen Saturation 99% 07/08/2024 1:05 PM SCHOOL BOAT DRIVER Inhaled Oxygen Concentration - - Weight 67.9 kg (149 lb 9.6 oz) 07/08/2024 1:05 P M SCHOOL BOAT DRIVER Height 162.6 cm (5' 4 ) 07/08/2024 1:05 PM SCHOOL BOAT DRIVER Body Mass Index 25.68 07/08/2024 1:05 PM SCHOOL BOAT DRIVER Plan of Treatment Not on file Procedures Procedure Name Priority Date/Time Associated Diagnosis Comments CARDIOLOGY DOCUMENT SCAN Routine 07/01/2024 3:53 PM SCHOOL BOAT DRIVER CARDIOLOGY DOCUMENT SCAN Routine 06/30/2024 3:49 PM SCHOOL BOAT DRIVER CARDIOLOGY DOCUMENT SCAN Routine 06/29/2024 3:44 PM SCHOOL BOAT DRIVER SCAN - RADIOLOGY/IMAGING 06/29/2024 CARDIOLOGY DOCUMENT SCAN Routine 06/28/2024 3:37 PM SCHOOL BOAT DRIVER CARDIOLOGY DOCUMENT SCAN Routine 06/27/2024 3:32 PM SCHOOL BOAT DRIVER CARDIOLOGY DOCUMENT SCAN Routine 06/26/2024 3:20 PM SCHOOL BOAT DRIVER CARDIOLOGY DOCUMENT SCAN Routine 06/24/2024 3:16 PM SCHOOL BOAT DRIVER CARDIOLOGY DOCUMENT SCAN Routine 06/23/2024 3:10 PM SCHOOL BOAT DRIVER CARDIOLOGY DOCUMENT SCAN Routine 06/22/2024 3:04 PM SCHOOL BOAT DRIVER CARDIOLOGY DOCUMENT SCAN Routine 06/22/2024 3:03 PM SCHOOL BOAT DRIVER CARDIOLOGY DOCUMENT SCAN Routine 06/22/2024 3:00 PM SCHOOL BOAT DRIVER EGFR Routine 07/31/2022 5:30 AM SCHOOL BOAT DRIVER HEMOGLOBIN A1C Routine 07/30/2022 10:23 PM SCHOOL BOAT DRIVER LIPID PANEL Routine 07/30/2022 10:23 PM SCHOOL BOAT DRIVER from Last 3 Months or Most Recently Relevant to Health Maintenance Results * Cardiology Document Scan (07/01/2024 3:53 PM SCHOOL BOAT DRIVER) Anatomical Region Laterality Modality Other Result David Ratliff MD CV CARDIAC SERVICES PROCEDURES F inal Result * Cardiology Document Scan (06/30/2024 3:49 PM SCHOOL BOAT DRIVER) Anatomical Region Laterality Modality Other Result David Shin MD CV CARDIAC SERVICES PRO CEDURES Final Result * Cardiology Document Scan (06/29/2024 3:44 PM SCHOOL BOAT DRIVER) Anatomical Region Laterality Modality Other Result David Shin MD CV CARDIAC SERVICES PRO CEDURES Final Result * SCAN - RADIOLOGY/IMAGING (06/29/2024) Anatomical Region Laterality Modality Other Result David Shin MD Final R esult * Cardiology Document Scan (06/28/2024 3:37 PM SCHOOL BOAT DRIVER) Anatomical Region Laterality Modality Other Result David Shin MD CV CARDIAC SERVICES PRO CEDURES Final Result * Cardiology Document Scan (06/27/2024 3:32 PM SCHOOL BOAT DRIVER) Anatomical Region Laterality Modality Other us Gerhard Ratliff MD CV CARDIAC SERVICES PROCEDURES F inal Result * Cardiology Document Scan (06/26/2024 3:20 PM SCHOOL BOAT DRIVER) Anatomical Region Laterality Modality Other Result David Shin MD CV CARDIAC SERVICES PRO CEDURES Final Result * Cardiology Document Scan (06/24/2024 3:16 PM SCHOOL BOAT DRIVER) Anatomical Region Laterality Modality Other Result David Shin MD CV CARDIAC SERVICES PRO CEDURES Final Result * Cardiology Document Scan (06/23/2024 3:10 PM SCHOOL BOAT DRIVER) Anatomical Region Laterality Modality Other Result Davdi De Guzman MD CV CARDIAC SERVICES PROCEDU RES Final Result * Cardiology Document Scan (06/22/2024 3:04 PM SCHOOL BOAT DRIVER) Anatomical Region Laterality Modality Other Result David De Guzman MD CV CARDIAC SERVICES PROCEDU RES Final Result * Cardiology Document Scan (06/22/2024 3:03 PM SCHOOL BOAT DRIVER) Anatomical Region Laterality Modality Other Result David De Guzman MD CV CARDIAC SERVICES PROCEDU RES Final Result * Cardiology Document Scan (06/22/2024 3:00 PM SCHOOL BOAT DRIVER) Anatomical Region Laterality Modality Other Result David De Guzman MD CV CARDIAC SERVICES PROCEDU RES Final Result * (ABNORMAL) eGFR (07/31/2022 5:30 AM SCHOOL BOAT DRIVER) eGFR 54(L) 90 - 130 mL/min/1. 73 m2 [facility] Comment: Interpretive Data Reference Interval Normal >/= [...] last reviewed 2021. Blood 07/31/2022 5:30 AM SCHOOL BOAT DRIVER 07/31/2022 5:51 AM SCHOOL BOAT DRIVER Lizabeth Strong MD LAB BLOOD ORDERABLES Fin al Result Performing Organization Address [facility] de Phone Number [facility] Department [place] [address] * (ABNORMAL) Hemoglobin A1c (07/30/2022 10:23 PM SCHOOL BOAT DRIVER) Hgb A1C 10.7(H) 4.0 - 5.6 % [facility] Estimated Average Glucose 260 mg/dL [facility] Comment: The ADA recommends reporting an estimated Average Glucose (eAG) with all Hemoglobin A1c results using the equation derived from a study of 507 normal and diabetic adults. Minority populations were underrepresented and children were not included. (Diabetes Care 2020; 43(S1): S66-S76). The eAG is not equivalent to a fasting glucose. Blood 07/30/2022 10:2 3 PM SCHOOL BOAT DRIVER 07/30/2022 10:39 PM SCHOOL BOAT DRIVER Lizabeth Strong MD LAB BLOOD ORDERABLES Fin al Result Performing Organization Address [facility] de Phone Number [facility] Department [place] [address] * (ABNORMAL) Lipid panel (07/30/2022 10:23 PM SCHOOL BOAT DRIVER) Cholesterol 167 30 - 199 mg/dL [facility] Comment: Interpretive Data Ages < or [...] on 2018. Triglycerides 155(H) <=149 mg/dL [facility] Comment: Interpretive Data Ages < or = [...] 2018. HDL 43 >=40 mg/dL [facility] Comment: Interpretive Data Ages < or = [...] LDL, calculated 93 <=129 mg/dL [facility] Comment: Interpretive Data Ages < or = [...] [facility] Blood 07/30/2022 10:2 3 PM SCHOOL BOAT DRIVER 07/30/2022 10:39 PM SCHOOL BOAT DRIVER us Lizabeth Strong MD LAB BLOOD ORDERABLES Fin al Result [facility] Department [place] [address] from Last 3 Months or Most Recently Relevant to Health Maintenance Insurance [facility] Advance Directives For more information, please contact: [phone] * Full Code (Latest Code Status on File) Date Activated Date Inactivated Comments 07/30/2022 9:33 PM 07/31/2022 6:01 PM Care Teams Supervisor [employer] Relationship Specialty Start Date End Date No, Physician PCP - General 07/30/22 Bunny Ramires MD 07/30/22
--- OUTSIDE RECORDS SUMMARY | 2024-07-23 22:36 | XMS_ITS | Encounter Summary ---
Author Organization [facility] Address [facility] [place] [address] Care Team Providers Care Med Admin Name Role Phone Donavon Connor MD Primary Care Provider [phone] Reason for Visit * Auth/Cert (Routine) Specialty Diagnoses / Procedures Referred By Janel goyal Referred To Contact Home Health Services Referral ID Status Reason Start Date Expiration Date Visits Re quested Visits Authorized [id number] 1 7 Encounter Details Date Type Department Care Team (Late st Contact Info) Description 07/22/2024 9:30 AM CLOTH FINISHING RANGE BACK TENDER Home Care Visit [facility] Care [address] [place] [address] Makenzie Cheema RN [phone] (Work) SN NON ADMIT LETTY Social [...] doctor or pharmacy Often 07/23/2024 [facility] Utilities Answer Date Recorded In the [...] than three times a week 12/30/2022 Attends [employer] Services Not on file 12/30 Do you belong to any clubs o r organizations such as judaism groups, unions, fraternal or athletic groups, or [...] place to sleep or slept in a long term (including now)? No 06/24/2023 Housing Stability Vital [...] in the past 12 m [facility], were you homeless or living in a long term (including now)? No 04/10/2024 Sex and Gender Information Value Date Recorded Sex Assigned at Male 04/09/2024 9:16 PM CLOTH FINISHING RANGE BACK TENDER Legal Sex Male 8:36 PM CDT Gender Identity Male 04/09/2024 9:16 PM CLOTH FINISHING RANGE BACK TENDER Sexual Orientation Straight 04/09/2024 9: 16 PM CLOTH FINISHING RANGE BACK TENDER documented as of this encounter Functional Status [...] st Contact Info) Description 07/24/2024 8:40 AM CLOTH FINISHING RANGE BACK TENDER Office Visit [facility] Medical Group Family and Sports Medicine - [place] [address] [place] [address] Donavon Connor MD [address] [address] 07/25/2024 3:00 PM CLOTH FINISHING RANGE BACK TENDER Home Care Visit [facility] Care [address] [place] [address] Catie Zabala, PT [address] [place] [address] 07/26/2024 8:00 AM CLOTH FINISHING RANGE BACK TENDER Home Care Visit [address] [place] [address] Juliana Mcgrath RN 07/30/2024 8:00 AM CLOTH FINISHING RANGE BACK TENDER Home Care Visit [facility] Home Care [address] [place] [address] [place] [address] Juliana Mcgrath RN 08/02/2024 8:00 AM CLOTH FINISHING RANGE BACK TENDER Appointment [facility] Care [facility] [address] [place] [address] [place] [address] Juliana Mcgrath RN 01/06/2025 11:00 AM CDT Office Visit [facility] Medical Group Multispecialty Care - [facility] [address] [facility], [address] [place] [address] Lai Anderson MD 3 [place] [address] documented as of this encounter Goals Goal [...] Total Score: 0 04/19/20 24 9:36 AM CLOTH FINISHING RANGE BACK TENDER documented as of this encounter Home Health Visit - Care Plan Visit Details Visit Type -SN Non Admit LETTY Discipline -Long-Term Problems Problem Description Start Date Status Goals [...] will verbalize diet plan by 07/02/24 [facility] Nutritional Concerns - Diabetes No Patient [...] Scheduled documented in this encounter Care Teams Med Admin Relationship Specialty Start Date End Date Donavon Connor MD [address] [address] PCP - General FAMILY PRACTICE 04/13/20 documented as of this encounter
--- OUTSIDE RECORDS SUMMARY | 2024-07-23 22:36 | XMS_ITS | Encounter Summary ---
Author Organization [facility] Address [facility] [place] [address] Care Team Providers Care [employer] Social Science Teacher Name Role Phone Donavon Connor MD Primary Care Provider Reason for Visit * Reason Comments Image [...] materials from doctor or pharmacy Often 07/23/2024 [facility] Utilities Answer Date Recorded In the [...] than three times a week 12/30/2022 Attends Temple Services Not on file 12/30 Do you belong to any clubs o r organizations such as taoism groups, unions, fraternal or athletic groups, or [...] place to sleep or slept in a nursing home (including now)? No 06/24/2023 Housing Stability Vital Sign Answer Macho e Recorded In the last 12 months, was t here a time when you were not able to pay the mortgage or rent on time? No 04/10/2024 In the past 12 months, how m any times have you moved where you were living? 0 04/10/2024 At any time in the past 12 m [facility], were you homeless or living in a nursing home (including now)? No 04/10/2024 Sex and Gender Information Value Date Recorded Sex Assigned at Male 04/09/2024 9:16 PM INSTALLATION SUPERINTENDENT Legal Sex Male 8:36 PM CDT Gender Identity Male 04/09/2024 9:16 PM INSTALLATION SUPERINTENDENT Sexual Orientation Straight 04/09/2024 9: 16 PM INSTALLATION SUPERINTENDENT documented as of this encounter Functional Status * Are you deaf or do you have serious difficulty hearing Answer Date of Assessment Author Status No 04/09/2024 9:27 PM INSTALLATION SUPERINTENDENT Shayla Swan RN Active * Are you blind or do you have serious difficulty seeing, even when wearing glasses? Answer Date of Assessment Author Status No 04/09/2024 9:27 PM INSTALLATION SUPERINTENDENT Shayla Swan RN Active * Do you have serious difficulty walking or climbing stairs? Answer Date of Assessment Author Status No 04/09/2024 9:27 PM INSTALLATION SUPERINTENDENT Shayla Swan RN Active * Do you have difficulty dressing or bathing? Answer Date of Assessment Author Status No 04/09/2024 9:27 PM INSTALLATION SUPERINTENDENT Shayla Swan RN Active * Because of [...] st Contact Info) Description 07/24/2024 8:40 AM INSTALLATION SUPERINTENDENT Office Visit [facility] Medical [facility] Family and Sports Medicine - [address] [address] Donavon Connor MD [address] [address] 07/25/2024 3:00 PM INSTALLATION SUPERINTENDENT Home Care Visit [address] [place] [address] Catie Zabala, PT [address] [place], [place] [id number] 07/26/2024 8:00 AM INSTALLATION SUPERINTENDENT Home Care Visit [facility] Home Care [address] [place] [address] Juliana Mcgrath, RN 07/30/2024 8:00 AM INSTALLATION SUPERINTENDENT Home Care Visit [facility] Care [address] [place] [address] Juliana Mcgrath, RN 08/02/2024 8:00 AM INSTALLATION SUPERINTENDENT Appointment [facility] Care [address] [place] [address] Juliana Mcgrath RN 01/06/2025 11:00 AM CDT Office Visit [facility] Medical [facility] [address] [facility], [address] [place] [address] Lai Anderson MD [address] [place] [address] documented as of this encounter Goals Goal [...] Total Score: 0 04/19/20 24 9:36 AM INSTALLATION SUPERINTENDENT documented as of this encounter Care Teams High [employer] Social Science Teacher Relationship Specialty Start Date End Date Donavon Connor MD [address] [facility] [address] [place] [address] PCP - General FAMILY PRACTICE 04/13/20 documented as of this encounter
--- OUTSIDE RECORDS SUMMARY | 2024-07-23 22:36 | XMS_ITS | Encounter Summary ---
Author Organization [facility] Address [facility] [place] [address] Care Team Providers Care Branch Associate Name Role Phone Donavon Connor MD Primary Care Provider [phone] Reason for Visit * Reason Comments Image [...] materials from doctor or pharmacy Often 07/02/2024 [facility] Utilities Answer Date Recorded In the [...] than three times a week 12/30/2022 Attends Restorationist Services Not on file 12/30 Do you belong to any clubs o r organizations such as confucianism groups, unions, fraternal or athletic groups, or [...] place to sleep or slept in a mcc (including now)? No 06/24/2023 Housing Stability Vital Sign Answer Macho e Recorded In the last 12 months, was t here a time when you were not able to pay the mortgage or rent on time? No 04/10/2024 In the past 12 months, how m any times have you moved where you were living? 0 04/10/2024 At any time in the past 12 m [facility], were you homeless or living in a mcc (including now)? No 04/10/2024 Sex and Gender Information Value Date Recorded Sex Assigned at Male 04/09/2024 9:16 PM INVESTIGATIVE ASSISTANT Legal Sex Male 8:36 PM CDT Gender Identity Male 04/09/2024 9:16 PM INVESTIGATIVE ASSISTANT Sexual Orientation Straight 04/09/2024 9: 16 PM INVESTIGATIVE ASSISTANT documented as of this encounter Functional Status * Are you deaf or do you have serious difficulty hearing Answer Date of Assessment Author Status No 04/09/2024 9:27 PM INVESTIGATIVE ASSISTANT Shayla Swan RN Active * Are you blind or do you have serious difficulty seeing, even when wearing glasses? Answer Date of Assessment Author Status No 04/09/2024 9:27 PM INVESTIGATIVE ASSISTANT Shayla Swan RN Active * Do you have serious difficulty walking or climbing stairs? Answer Date of Assessment Author Status No 04/09/2024 9:27 PM INVESTIGATIVE ASSISTANT Shayla Swan RN Active * Do you have difficulty dressing or bathing? Answer Date of Assessment Author Status No 04/09/2024 9:27 PM INVESTIGATIVE ASSISTANT Shayla Swan RN Active * Because of [...] st Contact Info) Description 07/24/2024 8:40 AM INVESTIGATIVE ASSISTANT Office Visit [facility] Medical Group Family and Sports Medicine - [address] [phone] Donavon Connor MD [address] [address] 07/25/2024 3:00 PM INVESTIGATIVE ASSISTANT Home Care Visit [address] [place] [address] Catie Zabala, PT [address] [place], [place] [id number] 07/26/2024 8:00 AM INVESTIGATIVE ASSISTANT Home Care Visit [facility] Home Care [address] [place] [address] Juliana Mcgrath, RN 07/30/2024 8:00 AM INVESTIGATIVE ASSISTANT Home Care Visit [facility] Care [address] [place] [address] Juliana Mcgrath, RN 08/02/2024 8:00 AM INVESTIGATIVE ASSISTANT Appointment [facility] Care [address] [place] [address] Juliana Mcgrath RN 01/06/2025 11:00 AM CDT Office Visit [facility] Medical [facility] Multispecialty Care - [facility] [address] [facility], [address] [place] [address] Lai Anderson MD 3 [place] [address] documented as of this encounter Goals Goal [...] Total Score: 0 04/19/20 24 9:36 AM INVESTIGATIVE ASSISTANT documented as of this encounter Care Teams Branch Associate Relationship Specialty Start Date End Date Donavon Connor MD [address] [facility] [place] [address] [place] [place] [address] PCP - General FAMILY PRACTICE 04/13/20 documented as of this encounter
[2024-07-23 23:36] VITALS: BP 162/83; PULSE 80; RESP 15; O2SAT 99
[2024-07-24 00:20] LABS: Troponin I 0.247 ng/mL (0.000-0.034)
--- NOTE | 2024-07-24 01:21 | ED_ITS ---
HPI - General Adult General Chief complaint: Recheck/Abnormal Lab/Rx <Verito Greenberg APRN - Last Filed: 07/24/24 02:25> Stated complaint: htn <Verito Greenberg APRN - Last Filed: 07/24/24 02:25> Time Seen by Provider: 07/23/24 22:14 <Verito Greenberg APRN - Last Filed: 07/24/24 02:25> History of Present Illness HPI narrative: Patient is a 74-year-old [place] male who presents to the ER after experiencing chest pain and elevated blood pressure at home. Through the concrete buildings assembler patient's and his 's report patient started experiencing anxiety and nervousness this afternoon. His took his blood pressure and it was 168/100. They called his daughter who told them they need to call EMS and have pt transported to the hospital. At that time patient reports his pain was a 3/10. Patient's reports they were given medication for anxiety upon discharge from hospital she did not want to give it to him because she does not want him to become dependent on it. At the time of examination denies chest pain, back pain, shortness of breath. <Verito Greenberg APRN - Last Filed: 07/24/24 02:25> Related Data Home medications: Home Medications ?Medication ?Instructions ?Recorded ?Confirmed ?Last Taken ?Type insulin glargine 100 unit/mL 18 unit subcut DAILY DM 10/29/23 07/17/24 07/17/24 History subcutaneous solution (Lantus U-100 Insulin) insulin lispro 100 unit/mL 1 sliding scale dose subcut ACHS dm 10/29/23 07/17/24 07/17/24 History subcutaneous pen lactulose 10 gram/15 mL oral 30 ml PO TID 06/22/24 07/17/24 Unknown History solution amoxicillin 500 mg capsule 500 mg PO TID 07/17/24 07/17/24 07/16/24 History <Verito Greenberg APRN - Last Filed: 07/24/24 02:25> Allergies/adverse reactions: Allergies Allergy/AdvReac Type Severity Reaction Status Date / Time No Known Allergies Allergy Verified 07/23/24 19:59 <Verito Greenberg APRN - Last Filed: 07/24/24 02:25> Review of Systems 2 Review of Systems: All systems reviewed & are unremarkable except as noted in HPI and below <Verito Greenberg APRN - Last Filed: 07/24/24 02:25> [facility] Past Medical History Medical History: Medical History Benign prostate hyperplasia ST elevation myocardial infarction (STEMI) (06/22/24) status post PCI to the LAD Ischemic cardiomyopathy Type 2 diabetes mellitus Hypertension Compression fracture of L4 vertebra Hyperlipidemia Urinary retention Chronic indwelling Joiner catheter Coronary artery disease <Verito Greenberg APRN - Last Filed: 07/24/24 02:25> Surgical History Surgical History: Surgical History History of open reduction and internal fixation (ORIF) procedure repair of left 4 through 9 rib fractures History of percutaneous coronary intervention (05/2024) PCI to the LAD <Verito Greenberg APRN - Last Filed: 07/24/24 02:25> Family History Family History: Family History Mother Family history unknown <Verito Greenberg APRN - Last Filed: 07/24/24 02:25> Social History Social History: Social History Social History: Surrogate medical decision maker: Delta Anderson, daughter ([phone]). Code status: Full code. Smoking status: Never smoker Alcohol intake: never Substance use: never Substance use type: does not use Do You Feel Safe in your Home?: Yes Lack of Transportation: No Lack of Food: Never True Current Housing: I Have Housing Concerned About Future Housing: No Difficulty Paying Gas/Electric Bills: No Difficulty Paying for Meds: No Currently Unemployed: No Education: Master's Degree or Higher Difficulty w/ Childcare or Family Care: No Living arrangements: with family Gender identity (if verbalized by the patient): Male Sexual Orientation (if Verbalized by the Patient): Straight or Heterosexual Spiritual care concerns: No <Verito Greenberg APRN - Last Filed: 07/24/24 02:25> Exam 2 Narrative: GENERAL: Well appearing, well-nourished, non-toxic, in no acute distress. HEAD: Normocephalic, atraumatic. NECK: Supple. No adenopathy, no masses. RESPIRATORY: Airway patent, respirations nonlabored. Clear to auscultation bilaterally, no rales, rhonchi, wheezing. CARDIOVASCULAR: Regular rate and rhythm without murmurs, rubs, or gallops. Peripheral pulses 2+ and equal bilaterally. ABDOMINAL: Soft, nontender, nondistended, no hepatosplenomegaly. Normoactive BS. MUSCULOSKELETAL: Moves all extremities. Strength/ROM intact without gross deformities. SKIN: Warm, dry, normal color. No rashes. NEURO: A&O X3. Speech clear. Cranial nerves II-XII grossly intact. Steady gait. No ataxic movements. PSYCHIATRIC: Agitated, difficulty reasoning with pt (conversation through eye dropper assembler) <Verito Greenberg APRN - Last Filed: 07/24/24 02:25> Course TONGUE PRESSER/PA Physician Supervision For this patient encounter, I reviewed the TONGUE PRESSER or PA documentation, treatment plan, and medical decision making; and I had [id number] time with this patient. <Arnaldo Carrizales MD - Last Filed: 07/24/24 07:04> Vital Signs Vital signs: Vital Signs Temperature 97.8 F 07/23/24 19:48 Pulse Rate 80 07/23/24 19:48 Respiratory Rate 15 07/23/24 19:48 Blood Pressure 162/83 H 07/23/24 19:48 Pulse Oximetry 99 07/23/24 19:48 Oxygen Delivery Room Air 07/23/24 19:48 Temperature 97.8 F 07/23/24 19:48 Pulse Rate 86 07/24/24 04:47 Respiratory Rate 17 07/24/24 04:47 Blood Pressure 155/73 H 07/24/24 04:47 Pulse Oximetry 98 07/24/24 04:47 Oxygen Delivery Room Air 07/23/24 19:48 <Verito Greenberg APRN - Last Filed: 07/24/24 02:25> Vital Signs Temperature 97.8 F 07/23/24 19:48 Pulse Rate 80 07/23/24 19:48 Respiratory Rate 15 07/23/24 19:48 Blood Pressure 162/83 H 07/23/24 19:48 Pulse Oximetry 99 07/23/24 19:48 Oxygen Delivery Room Air 07/23/24 19:48 Temperature 97.8 F 07/23/24 19:48 Pulse Rate 86 07/24/24 04:47 Respiratory Rate 17 07/24/24 04:47 Blood Pressure 155/73 H 07/24/24 04:47 Pulse Oximetry 98 07/24/24 04:47 Oxygen Delivery Room Air 07/23/24 19:48 <Arnaldo Carrizales MD - Last Filed: 07/24/24 07:04> Medical Decision Making MDM Narrative Medical decision making narrative: Patient is a 74-year-old [place] male who presents to the ER after experiencing chest pain and elevated blood pressure at home. Through the concrete buildings assembler patient's and his 's report patient started experiencing anxiety and nervousness this afternoon. His took his blood pressure and it was 168/100. They called his daughter who told them they need to call EMS and have pt transported to the hospital. At that time patient reports his pain was a 3/10. Patient's reports they were given medication for anxiety upon discharge from hospital she did not want to give it to him because she does not want him to become dependent on it. At the time of examination denies chest pain, back pain, shortness of breath. Labs Ordered: CBC, CMP INR, PTT, troponin, lipase Imaging Ordered: Medications Ordered: Lovenox 1 milligram/kilogram subQ Results: Pt's chest x-ray indicates Lines, tubes, and devices: Uncomplicated appearing screw and plate fixation of multiple right ribs. Coronary stenting. Lungs and pleura: Low volumes with crowding. Lungs otherwise clear. Cardiomediastinal silhouette: Stable. Other: No acute osseous or upper abdominal finding. Stable severe compression fracture at the thoracolumbar junction. Diagnosis: elevated troponin, atypical chest pain Consults: cardiology Patient Education/Shared MDM: Results of lab work and chest x-ray shared with patient and his via eye dropper assembler. Pt adamantly does not want to be hospitalized, but then adamantly refused to sign AMA paperwork. His became angry at her 's belligerence during the conversation and walked out of the room and out of the ER. Eventually, pt agreed to get his three-hour troponin level drawn. Once results were back, it was explained to pt that he should stay in the hospital. He requested his come back into the ER and stay with him through the night but it was explained to pt that hospital visiting hours were over for the night. Pt finally agreed to being admitted to the hospital, but was very agitated at having to wait for an upstairs room to open. 0145- Spoke with cardiology, Dr. Cardona. She advised pt receive Lovenox 1mg/kg x 1 and be admitted to the hospital. 0200-Spoke with hospitalist who was in agreement with pt being admitted to the hospital. <Verito Greenberg, COLLEGE SERVICE OFFICER - Last Filed: 07/24/24 02:25> Differential Diagnosis Differential Diagnosis: STEMI, atypical chest pain, elevated troponin, costocondritis <Verito Greenberg, COLLEGE SERVICE OFFICER - Last Filed: 07/24/24 02:25> Vital Signs Vital Signs: Vital Signs Temperature 97.8 F 07/23/24 19:48 Pulse Rate 80 07/23/24 19:48 Respiratory Rate 15 07/23/24 19:48 Blood Pressure 162/83 H 07/23/24 19:48 Pulse Oximetry 99 07/23/24 19:48 Oxygen Delivery Room Air 07/23/24 19:48 Temperature 97.8 F 07/23/24 19:48 Pulse Rate 86 07/24/24 04:47 Respiratory Rate 17 07/24/24 04:47 Blood Pressure 155/73 H 07/24/24 04:47 Pulse Oximetry 98 07/24/24 04:47 Oxygen Delivery Room Air 07/23/24 19:48 <Verito Greenberg, COLLEGE SERVICE OFFICER - Last Filed: 07/24/24 02:25> Vital Signs Temperature 97.8 F 07/23/24 19:48 Pulse Rate 80 07/23/24 19:48 Respiratory Rate 15 07/23/24 19:48 Blood Pressure 162/83 H 07/23/24 19:48 Pulse Oximetry 99 07/23/24 19:48 Oxygen Delivery Room Air 07/23/24 19:48 Temperature 97.8 F 07/23/24 19:48 Pulse Rate 86 07/24/24 04:47 Respiratory Rate 17 07/24/24 04:47 Blood Pressure 155/73 H 07/24/24 04:47 Pulse Oximetry 98 07/24/24 04:47 Oxygen Delivery Room Air 07/23/24 19:48 <Arnaldo Carrizales MD - Last Filed: 07/24/24 07:04> Lab Data Lab results reviewed: Yes I reviewed the patient's lab results. <Verito Greenberg APRN - Last Filed: 07/24/24 02:25> Result diagrams: 07/23/24 20:13 07/23/24 20:13 <Verito Greenberg APRN - Last Filed: 07/24/24 02:25> Labs: Lab Results 07/23/24 07/23/24 Range/Units 20:13 23:47 WBC 8.2 (4.5-10.0) K/mm3 RBC 4.01 L (4.6-6.20) M/mm3 Hgb 11.3 L (14.0-18.0) g/dL Hct 35.7 L (42.0-52.0) % MCV 89.0 (80-100) fl MCH 28.2 (26-34) pg MCHC 31.7 L (32-36) g/dl RDW 15.5 H (11.5-14.5) % Plt Count 282 (150-375) k/mm3 MPV 12.9 H (7.4-10.4) fl Immature Gran % (Auto) 0.1 (0-0.5) % Neut % (Auto) 54.5 (45.5-73.1) % Lymph % (Auto) 34.5 (18.3-44.2) % Cache % (Auto) 7.7 (2.6-8.5) % Eos % (Auto) 2.5 (0-4.4) % Baso % (Auto) 0.7 (0.2-1.2) % Lymph # (Auto) 2.81 (0.9-3.2) K/mm3 Cache # (Auto) 0.6 (0.1-0.6) K/mm3 Eos # (Auto) 0.2 (0-0.3) K/mm3 Baso # (Auto) 0.1 (0.0-0.1) K/mm3 Abs Immat Gran (auto) 0.01 (0.00-0.031) K/mm3 Absolute Neuts (auto) 4.4 (1.3-6.7) K/mm3 Absolute Nucleated RBC 0.000 (0.0-0.012) K/mm3 Nucleated RBC % 0.0 (0.0-0.2) % % Immature Plt Fraction 2.0 (0.9-11.2) % PT 13.6 (11.1-14.7) Seconds INR 1.0 APTT 26.4 (22.3-36.8) Seconds Sodium 140 (137-145) mmol/L Potassium 3.7 (3.4-5.0) mmol/L Chloride 104 (98-107) mmol/L Carbon Dioxide 23 (22-30) mmol/L Anion Gap 13 H (4-12) mmol/L BUN 13 (9-20) mg/dL Creatinine 0.89 (0.7-1.3) mg/dL Estim Creat Clear Calc 53 ml/min Estimated GFR > 60 (59 - ) Glucose 151 H (65-110) mg/dL Calcium 8.8 (8.4-10.2) mg/dL Total Bilirubin 1.0 (0.2-1.3) mg/dL AST 30 (17-59) U/L ALT 21 (6-50) U/L Alkaline Phosphatase 99 (38-126) U/L Troponin I 0.254 H* 0.247 H* (0.000-0.034) ng/mL Total Protein 7.0 (6.3-8.2) g/dL Albumin 3.6 (3.5-5.1) g/dL Lipase 198 (23-300) U/L <Verito Greenberg, COLLEGE SERVICE OFFICER - Last Filed: 07/24/24 02:25> Lab Results 07/23/24 07/23/24 Range/Units 20:13 23:47 WBC 8.2 (4.5-10.0) K/mm3 RBC 4.01 L (4.6-6.20) M/mm3 Hgb 11.3 L (14.0-18.0) g/dL Hct 35.7 L (42.0-52.0) % MCV 89.0 (80-100) fl MCH 28.2 (26-34) pg MCHC 31.7 L (32-36) g/dl RDW 15.5 H (11.5-14.5) % Plt Count 282 (150-375) k/mm3 MPV 12.9 H (7.4-10.4) fl Immature Gran % (Auto) 0.1 (0-0.5) % Neut % (Auto) 54.5 (45.5-73.1) % Lymph % (Auto) 34.5 (18.3-44.2) % Cache % (Auto) 7.7 (2.6-8.5) % Eos % (Auto) 2.5 (0-4.4) % Baso % (Auto) 0.7 (0.2-1.2) % Lymph # (Auto) 2.81 (0.9-3.2) K/mm3 Cache # (Auto) 0.6 (0.1-0.6) K/mm3 Eos # (Auto) 0.2 (0-0.3) K/mm3 Baso # (Auto) 0.1 (0.0-0.1) K/mm3 Abs Immat Gran (auto) 0.01 (0.00-0.031) K/mm3 Absolute Neuts (auto) 4.4 (1.3-6.7) K/mm3 Absolute Nucleated RBC 0.000 (0.0-0.012) K/mm3 Nucleated RBC % 0.0 (0.0-0.2) % % Immature Plt Fraction 2.0 (0.9-11.2) % PT 13.6 (11.1-14.7) Seconds INR 1.0 APTT 26.4 (22.3-36.8) Seconds Sodium 140 (137-145) mmol/L Potassium 3.7 (3.4-5.0) mmol/L Chloride 104 (98-107) mmol/L Carbon Dioxide 23 (22-30) mmol/L Anion Gap 13 H (4-12) mmol/L BUN 13 (9-20) mg/dL Creatinine 0.89 (0.7-1.3) mg/dL Estim Creat Clear Calc 53 ml/min Estimated GFR > 60 (59 - ) Glucose 151 H (65-110) mg/dL Calcium 8.8 (8.4-10.2) mg/dL Total Bilirubin 1.0 (0.2-1.3) mg/dL AST 30 (17-59) U/L ALT 21 (6-50) U/L Alkaline Phosphatase 99 (38-126) U/L Troponin I 0.254 H* 0.247 H* (0.000-0.034) ng/mL Total Protein 7.0 (6.3-8.2) g/dL Albumin 3.6 (3.5-5.1) g/dL Lipase 198 (23-300) U/L <Arnaldo Carrizales MD - Last Filed: 07/24/24 07:04> Imaging Data Attestation: I personally reviewed and interpreted this imaging study as follows: < Verito Greenberg APRN - Last Filed: 07/24/24 02:25> Radiologist's impression: Impressions Chest X-Ray 07/23/24 21:13 IMPRESSION: No acute cardiopulmonary process. <Verito Greenberg APRN - Last Filed: 07/24/24 02:25> Critical Care Time Critical Care Time Critical Care Time: Yes <Arnaldo Carrizales MD - Last Filed: 07/24/24 07:04> Total Critical Care Time: 35 <Arnaldo Carrizales MD - Last Filed: 07/24/24 07:04> Discharge Plan Discharge Clinical Impression: Elevated troponin, Atypical chest pain <Verito Greenberg APRN - Last Filed: 07/24/24 02:25> Patient Disposition: Still a Patient <Verito Greenberg APRN - Last Filed: 07/24/24 02:25> Condition: Stable <Verito Greenberg APRN - Last Filed: 07/24/24 02:25>
--- NOTE | 2024-07-24 01:34 | PC.NURSE ---
Pt daughter contact: [phone]
[2024-07-24] MEDS: ENOXAPARIN 80 MG/0.8 ML SYRINGE 73 MG SUB-Q (02:46)
[2024-07-24 03:05] LABS: Troponin I 0.199 ng/mL (0.000-0.034)
[2024-07-24 04:47] VITALS: BP 155/73; PULSE 86; RESP 17; O2SAT 98
--- NOTE | 2024-07-24 06:25 | PC.NURSE ---
Pt refusing to sit in bed at this time. Pt was offered a hospital bed to sleep in while waiting for room upstairs. Pt refuses bringing a hospital bed down here and states he only wants to sleep upstairs when he gets a room and refuses to sit in room and sleep in bed down here in ED. Pt is now sleeping on a chair near pt door at this time. microbiology analyst and hospitalist notified.
--- NOTE | 2024-07-24 08:11 | PC.NURSE ---
Pt repositioned in bed with bed alarm adjusted during BSSR at shift change. Pt updated and appears to be resting comfortably @ 0720. Pt expresses discomfort with sitting in bed for extended periods of time despite educating and reorienting patient to hospital policy. Pt then placed in recliner with bed alarm and pt agrees to rest comfortably at this time.
[2024-07-24 08:35] VITALS: BP 155/92; PULSE 74; RESP 16; TEMP 36.7; O2SAT 100
--- NOTE | 2024-07-24 09:01 | PC.NURSE ---
Breakfast tray ordered.
--- NOTE | 2024-07-24 09:15 | PC.NURSE ---
Pt is unable to recall his daily medications in order to enter med rec. Daughter called with no response. Message left to call us back to confirm med list or bring a list to the hospital.
--- NOTE | 2024-07-24 09:24 | PC.NURSE ---
Pt daughter, Delta, called back to confirm med list. Updated in system.
--- NOTE | 2024-07-24 10:37 | P.CONCA_ITS ---
Assessment and Plan Assessment and plan (1) NSTEMI (non-ST elevated myocardial infarction): Code(s): I21.4 - Non-ST elevation (NSTEMI) myocardial infarction Status: Acute Assessment and Plan: Continue aspirin 81 mg daily Continue Brilinta 90 mg b.i.d. Continue metoprolol Continue losartan Continue statin Start heparin drip Trend troponin to peak EKG p.r.n. for chest Patient had a STEMI in 05/2024 status post PCI to OM to ostial LCX. Plan for cardiac catheterization in a.m. to evaluate coronaries. Keep NPO at midnight (2) Ischemic cardiomyopathy: Code(s): I25.5 - Ischemic cardiomyopathy Status: Acute Assessment and Plan: Last TTE in May 2024 showed an LVEF of 40% with regional wall motion abnormalities Guideline directed medical therapy with metoprolol, losartan Add SGLT 2 inhibitor (3) Hypertension: Qualifiers: Hypertension type: primary hypertension Qualified Code(s): I10 - Essential (primary) hypertension Code(s): I10 - Essential (primary) hypertension Status: Acute Assessment and Plan: Continue metoprolol Increased dose of losartan to 50 mg daily Target SBP less than 120 mmHg Add hydralazine 10 mg IV q.4 hours p.r.n. for SBP greater than 150mm Hg (4) Hyperlipidemia: Code(s): E78.5 - Hyperlipidemia, unspecified Status: Acute Assessment and Plan: Continue statin (5) Coronary artery disease: Code(s): I25.10 - Atherosclerotic heart disease of [place] coronary artery without angina pectoris Status: Acute Assessment and Plan: Cardiac catheterization in 05/2024 showed obstructive CAD (70% stenosis in OM 1, 90% stenosis in proximal LCX, 70% stenosis in OM 2) nonobstructive CAD in LAD and its diagonal branches (ostial LAD 30% stenosis, ostial 3rd diagonal 40-60% stenosis, diffuse 20% stenosis in the mid to distal LAD), RCA (20% stenosis in proximal RCA, 60% stenosis in mid to distal RCA) status post successful IVUS guided PCI from OM2 vessel to ostial LCX vessel with overlapping 2.5x22 mm, 3.0x13 mm, and 3.5x9mm Orsiro ROSCOE. Continue aspirin and Brilinta Continue statin (6) Type 2 diabetes mellitus: Code(s): E11.9 - Type 2 diabetes mellitus without complications Status: Acute Assessment and Plan: Continue home medication (7) Acute on chronic systolic heart failure: Code(s): I50.23 - Acute on chronic systolic (congestive) heart failure Status: Acute Assessment and Plan: LVEF 40% on most recent TTE in 06/22. BNP is elevated to 4480 Give Lasix 20 mg IV Check weights, in's and out's daily Check renal function daily Check and replace electrolytes as needed keeping potassium greater than 4 and magnesium greater than 2 History of Present Illness History of Present Illness Consult date/time: 07/24/24 10:37 Reason For Visit: elevated troponin, atypical chest pain Narrative: 74-year-old Ukrainian male with PMH of CAD s/p PCI to OM2 vessel to ostial LCX (indication: STEMI), ischemic cardiomyopathy with LVEF 40% by echo in 05/2024, type 2 diabetes mellitus, hypertension, hyperlipidemia, urinary retention, chronic indwelling Joiner catheter, compression fracture of L4 vertebra presents to the ER with chest pain and elevated blood pressure of 168/100mm Hg at home. He was feeling anxious and his checked the blood pressure. On noting that it was elevated they called his daughter and then EMS who brought him to the ER. Patient's chest pain was of intensity 3/10 when it started. Pain was a 3/10. At last discharge, he was given medication for anxiety but he is not taking it. At the present time his chest pain has resolved. Patient denies shortness of breath, palpitations, syncope, leg swelling, recent weight gain, dizziness, lightheadedness, nausea, emesis, abdominal pain. Troponin was elevated to 0.254, 0.247, 0.199, BNP was elevated to 4480, EKG showed sinus rhythm with T-wave inversions in leads 1, aVL and deep T-wave inversions in V2 which are present on prior EKG in May 2024. Review of Systems 2 Review of Systems: A complete review of systems was negative other than those mentioned in [facility] Past Medical History Medical History Benign prostate hyperplasia ST elevation myocardial infarction (STEMI) (06/22/24) status post PCI to the LAD Ischemic cardiomyopathy Type 2 diabetes mellitus Hypertension Compression fracture of L4 vertebra Hyperlipidemia Urinary retention Chronic indwelling Joiner catheter Coronary artery disease Surgical History Surgical History History of open reduction and internal fixation (ORIF) procedure repair of left 4 through 9 rib fractures History of percutaneous coronary intervention (05/2024) PCI to the LAD Family History Family History Mother Family history unknown Social History Social History Social History: Surrogate medical decision maker: Delta Anderson, daughter ([phone]). Code status: Full code. Smoking status: Never smoker Alcohol intake: never Substance use: never Substance use type: does not use Do You Feel Safe in your Home?: Yes Lack of Transportation: No Lack of Food: Never True Current Housing: I Have Housing Concerned About Future Housing: No Difficulty Paying Gas/Electric Bills: No Difficulty Paying for Meds: No Currently Unemployed: No Education: Master's Degree or Higher Difficulty w/ Childcare or Family Care: No Living arrangements: with family Gender identity (if verbalized by the patient): Male Sexual Orientation (if Verbalized by the Patient): Straight or Heterosexual Spiritual care concerns: No Meds Home Medications and Allergies Home Medications ?Medication ?Instructions ?Recorded ?Confirmed ?Type insulin glargine 100 unit/mL 18 unit subcut DAILY DM 10/29/23 07/17/24 History subcutaneous solution (Lantus U-100 Insulin) insulin lispro 100 unit/mL 1 sliding scale dose subcut ACHS dm 10/29/23 07/17/24 History subcutaneous pen lactulose 10 gram/15 mL oral 30 ml PO TID 06/22/24 07/17/24 History solution ticagrelor 90 mg tablet (Brilinta) 90 mg PO Q12HR #90 tabs 06/24/24 07/24/24 Rx aspirin 81 mg tablet,delayed 81 mg PO QAM #90 tabs 06/25/24 07/24/24 Rx release atorvastatin 80 mg tablet (Lipitor) 80 mg PO DAILY #90 tabs 06/25/24 07/24/24 Rx losartan 25 mg tablet 25 mg PO DAILY #90 tabs 06/25/24 07/24/24 Rx metoprolol succinate 50 mg 50 mg PO DAILY #90 tabs 06/25/24 07/24/24 Rx tablet,extended release 24 hr (Toprol XL) guaifenesin 600 mg tablet, 600 mg PO Q12HR #30 tabs 07/01/24 07/17/24 Rx extended release 12 hr (Mucus Relief ER) tamsulosin 0.4 mg capsule 0.4 mg PO QAM #30 caps 07/01/24 07/17/24 Rx lorazepam 0.5 mg tablet (Ativan) 0.5 mg PO TID PRN anxiety #14 tabs 07/13/24 07/17/24 Rx amoxicillin 500 mg capsule 500 mg PO TID 07/17/24 07/17/24 History hydrocodone 5 mg-acetaminophen 325 1 tablet PO Q4H PRN Pain Rated 4-6 07/19/24 Rx mg tablet 5 days #7 tabs potassium chloride 20 mEq 20 meq PO BID 5 days #10 tabs 07/19/24 07/24/24 Rx tablet,extended release(part/cryst) (Klor-Con M) Allergies Allergy/AdvReac Type Severity Reaction Status Date / Time No Known Allergies Allergy Verified 07/24/24 11:34 Vital Signs Vital Signs - 24 hr 07/23/24 19:48 07/23/24 21:25 07/23/24 23:36 Temperature 36.6 C Pulse Rate 80 80 Respiratory Rate 15 22 H 15 Blood Pressure 162/83 H 162/83 H Pulse Oximetry 99 99 Oxygen Delivery Room Air 07/24/24 04:47 07/24/24 08:35 Temperature 36.7 C Pulse Rate 86 74 Respiratory Rate 17 16 Blood Pressure 155/73 H 155/92 H Pulse Oximetry 98 100 Oxygen Delivery Exam 2 Narrative: General: Alert oriented x3, no acute distress Neck: Supple, no JVD Chest: Bilaterally clear to auscultation, no rales or rhonchi Cardiac: S1, S2 +, regular rate, regular rhythm, no murmurs or rubs Extremities: No edema, no skin rash Neurologic: Alert and oriented x3, no focal neurological deficits Results Labs and Meds 07/23/24 20:13 07/23/24 20:13 Lab results: Cardiac Enzymes 07/23/24 07/23/24 07/24/24 Range/Units 20:13 23:47 02:29 AST 30 (17-59) U/L Troponin I 0.254 H* 0.247 H* 0.199 H* (0.000-0.034) ng/mL Coagulation 07/23/24 Range/Units 20:13 PT 13.6 (11.1-14.7) Seconds APTT 26.4 (22.3-36.8) Seconds CBC 07/23/24 Range/Units 20:13 WBC 8.2 (4.5-10.0) K/mm3 RBC 4.01 L (4.6-6.20) M/mm3 Hgb 11.3 L (14.0-18.0) g/dL Hct 35.7 L (42.0-52.0) % Plt Count 282 (150-375) k/mm3 Lymph # (Auto) 2.81 (0.9-3.2) K/mm3 [place] # (Auto) 0.6 (0.1-0.6) K/mm3 Eos # (Auto) 0.2 (0-0.3) K/mm3 Baso # (Auto) 0.1 (0.0-0.1) K/mm3 Comprehensive Metabolic Panel 07/23/24 Range/Units 20:13 Sodium 140 (137-145) mmol/L Potassium 3.7 (3.4-5.0) mmol/L Chloride 104 (98-107) mmol/L Carbon Dioxide 23 (22-30) mmol/L BUN 13 (9-20) mg/dL Creatinine 0.89 (0.7-1.3) mg/dL Glucose 151 H (65-110) mg/dL Calcium 8.8 (8.4-10.2) mg/dL AST 30 (17-59) U/L ALT 21 (6-50) U/L Alkaline Phosphatase 99 (38-126) U/L Total Protein 7.0 (6.3-8.2) g/dL Albumin 3.6 (3.5-5.1) g/dL
--- NOTE | 2024-07-24 12:14 | PC.NURSE ---
pt admitted in ER, speak and understands most A[place]
[2024-07-24 12:23] VITALS: BP 166/95; PULSE 86; RESP 14; TEMP 37.2; O2SAT 98
--- NOTE | 2024-07-24 12:26 | PC.NURSE ---
lunch tray ordered.
--- NOTE | 2024-07-24 12:49 | PM.CNCAR ---
Assessment and Plan Assessment and plan (1) NSTEMI (non-ST elevated myocardial infarction): Code(s): I21.4 - Non-ST elevation (NSTEMI) myocardial infarction Status: Acute Assessment and Plan: -Patient is s/p PCI to mid LAD in 05/2024 (indication: STEMI), PCI to OM2 and proximal LCX in 06/2024 (indication: staged PCI after STEMI) -Chest pain is most likely secondary to stable angina or type II MO secondary to supple demand mismatch in the setting of non obstructove CAD in proximal LAD and high BP. The elevated troponin is most likely secondary to the PCI that was done on 07/18 and downtrending. There is no ST elevation or new ischemic changes on his EKG. No further cardiac work up at this time -Continue aspirin 81 mg daily indefinitely -Continue Brilinta 90 mg b.i.d. for 1 year post PCI -Continue metoprolol -Increase losartan to 100 mg daily for better control of BP -Continue statin -Trend troponin to peak -EKG p.r.n. for chest -Control risk factors for CAD including lipids, blood pressure,a nd DM. Target SBP<120mm Hg, target HgA1C<6, and target LDL<70 -Cardiac rehab -Heart healthy diet -Follow up with outpatient cardiology in 1 month (2) Ischemic cardiomyopathy: Code(s): I25.5 - Ischemic cardiomyopathy Status: Acute Assessment and Plan: -Last TTE in May 2024 showed an LVEF of 40% with regional wall motion abnormalities -Repeat TTE in 1 month -Continue Guideline directed medical therapy with metoprolol, losartan -Add SGLT 2 inhibitor (3) Hypertension: Qualifiers: Hypertension type: primary hypertension Qualified Code(s): I10 - Essential (primary) hypertension Code(s): I10 - Essential (primary) hypertension Status: Acute Assessment and Plan: Continue metoprolol Increased dose of losartan to 50 mg daily Target SBP less than 120 mmHg Add hydralazine 10 mg IV q.4 hours p.r.n. for SBP greater than 150mm Hg (4) Hyperlipidemia: Code(s): E78.5 - Hyperlipidemia, unspecified Status: Acute Assessment and Plan: Continue statin (5) Coronary artery disease: Code(s): I25.10 - Atherosclerotic heart disease of [place] coronary artery without angina pectoris Status: Acute Assessment and Plan: Cardiac catheterization in 05/2024 showed obstructive CAD (70% stenosis in OM 1, 90% stenosis in proximal LCX, 70% stenosis in OM 2) nonobstructive CAD in LAD and its diagonal branches (ostial LAD 30% stenosis, ostial 3rd diagonal 40-60% stenosis, diffuse 20% stenosis in the mid to distal LAD), RCA (20% stenosis in proximal RCA, 60% stenosis in mid to distal RCA) status post successful IVUS guided PCI from OM2 vessel to ostial LCX vessel with overlapping 2.5x22 mm, 3.0x13 mm, and 3.5x9mm Orsiro ROSCOE. Continue aspirin and Brilinta Continue statin (6) Type 2 diabetes mellitus: Code(s): E11.9 - Type 2 diabetes mellitus without complications Status: Acute Assessment and Plan: Continue home medication (7) Acute on chronic systolic heart failure: Code(s): I50.23 - Acute on chronic systolic (congestive) heart failure Status: Acute Assessment and Plan: LVEF 40% on most recent TTE in 06/22. BNP is elevated to 4480 Give Lasix 20 mg IV once Check weights, in's and out's daily while in the hospital and at home Check renal function daily Check and replace electrolytes as needed keeping potassium greater than 4 and magnesium greater than 2 History of Present Illness History of Present Illness Consult date/time: 07/24/24 12:49 Reason For Visit: elevated troponin, atypical chest pain Narrative: 74-year-old Turkish male with PMH of CAD s/p PCI to mid LAD in 05/2024 (indication: STEMI), PCI to OM2 and proximal LCX in 06/2024 (indication: staged PCI after STEMI), ischemic cardiomyopathy with LVEF 40% by echo in 05/2024, type 2 diabetes mellitus, hypertension, hyperlipidemia, urinary retention, chronic indwelling Joiner catheter, compression fracture of L4 vertebra presents to the ER with chest pain and elevated blood pressure of 168/100mm Hg at home. He was feeling anxious and his checked his blood pressure. On noting that it was elevated they called his daughter and then EMS who brought him to the ER. Patient's chest pain when it started was of intensity 3/10 when it started. At last discharge, he was given medication for anxiety but he is not taking it. At the present time his chest pain has resolved. Patient denies shortness of breath, palpitations, syncope, leg swelling, recent weight gain, dizziness, lightheadedness, nausea, emesis, abdominal pain. Troponin was elevated to 0.254, 0.247, 0.199, BNP was elevated to 4480, EKG showed sinus rhythm with T-wave inversions in leads 1, aVL and deep T-wave inversions in V2 which are present on prior EKG in May 2024. Cardiology was consulted for further management given NSTEMI. Review of Systems Review of Systems: A complete review of systems was negative other than those mentioned in [facility] Past Medical History Medical History Benign prostate hyperplasia ST elevation myocardial infarction (STEMI) (06/22/24) status post PCI to the LAD Ischemic cardiomyopathy Type 2 diabetes mellitus Hypertension Compression fracture of L4 vertebra Hyperlipidemia Urinary retention Chronic indwelling Joiner catheter Coronary artery disease Surgical History Surgical History History of open reduction and internal fixation (ORIF) procedure repair of left 4 through 9 rib fractures History of percutaneous coronary intervention (05/2024) PCI to the LAD Family History Family History Mother Family history unknown Social History Social History Social History: Surrogate medical decision maker: Delta Anderson, daughter ([phone]). Code status: Full code. Smoking status: Never smoker Alcohol intake: never Substance use: never Substance use type: does not use Do You Feel Safe in your Home?: Yes Lack of Transportation: YES Lack of Food: Never True Current Housing: I Have Housing Concerned About Future Housing: No Difficulty Paying Gas/Electric Bills: No Difficulty Paying for Meds: YES Currently Unemployed: No Education: Don't Know Difficulty w/ Childcare or Family Care: YES Living arrangements: with family Gender identity (if verbalized by the patient): Male Sexual Orientation (if Verbalized by the Patient): Straight or Heterosexual Spiritual care concerns: No Meds Home Medications and Allergies Home Medications ?Medication ?Instructions ?Recorded ?Confirmed ?Type insulin glargine 100 unit/mL 18 unit subcut DAILY DM 10/29/23 07/17/24 History subcutaneous solution (Lantus U-100 Insulin) insulin lispro 100 unit/mL 1 sliding scale dose subcut ACHS dm 10/29/23 07/17/24 History subcutaneous pen lactulose 10 gram/15 mL oral 30 ml PO TID 06/22/24 07/17/24 History solution ticagrelor 90 mg tablet (Brilinta) 90 mg PO Q12HR #90 tabs 06/24/24 07/24/24 Rx aspirin 81 mg tablet,delayed 81 mg PO QAM #90 tabs 06/25/24 07/24/24 Rx release atorvastatin 80 mg tablet (Lipitor) 80 mg PO DAILY #90 tabs 06/25/24 07/24/24 Rx losartan 25 mg tablet 25 mg PO DAILY #90 tabs 06/25/24 07/24/24 Rx metoprolol succinate 50 mg 50 mg PO DAILY #90 tabs 06/25/24 07/24/24 Rx tablet,extended release 24 hr (Toprol XL) guaifenesin 600 mg tablet, 600 mg PO Q12HR #30 tabs 07/01/24 07/17/24 Rx extended release 12 hr (Mucus Relief ER) tamsulosin 0.4 mg capsule 0.4 mg PO QAM #30 caps 07/01/24 07/17/24 Rx lorazepam 0.5 mg tablet (Ativan) 0.5 mg PO TID PRN anxiety #14 tabs 07/13/24 07/17/24 Rx amoxicillin 500 mg capsule 500 mg PO TID 07/17/24 07/17/24 History hydrocodone 5 mg-acetaminophen 325 1 tablet PO Q4H PRN Pain Rated 4-6 07/19/24 Rx mg tablet 5 days #7 tabs potassium chloride 20 mEq 20 meq PO BID 5 days #10 tabs 07/19/24 07/24/24 Rx tablet,extended release(part/cryst) (Klor-Con M) Allergies Allergy/AdvReac Type Severity Reaction Status Date / Time No Known Allergies Allergy Verified 07/24/24 11:34 Vital Signs Vital Signs - 24 hr 07/23/24 19:48 07/23/24 21:25 07/23/24 23:36 Temperature 36.6 C Pulse Rate 80 80 Respiratory Rate 15 22 H 15 Blood Pressure 162/83 H 162/83 H Pulse Oximetry 99 99 Oxygen Delivery Room Air 07/24/24 04:47 07/24/24 08:35 07/24/24 12:23 Temperature 36.7 C 37.2 C Pulse Rate 86 74 86 Respiratory Rate 17 16 14 Blood Pressure 155/73 H 155/92 H 166/95 H Pulse Oximetry 98 100 98 Oxygen Delivery Exam Narrative: General: Alert oriented x3, no acute distress Neck: Supple, no JVD Chest: Bilaterally clear to auscultation, no rales or rhonchi Cardiac: S1, S2 +, regular rate, regular rhythm, no murmurs or rubs Extremities: No edema, no skin rash Neurologic: Alert and oriented x3, no focal neurological deficits Results Labs and Meds 07/23/24 20:13 07/23/24 20:13 Lab results: Cardiac Enzymes 07/23/24 07/23/24 07/24/24 Range/Units 20:13 23:47 02:29 AST 30 (17-59) U/L Troponin I 0.254 H* 0.247 H* 0.199 H* (0.000-0.034) ng/mL Coagulation 07/23/24 Range/Units 20:13 PT 13.6 (11.1-14.7) Seconds APTT 26.4 (22.3-36.8) Seconds CBC 07/23/24 Range/Units 20:13 WBC 8.2 (4.5-10.0) K/mm3 RBC 4.01 L (4.6-6.20) M/mm3 Hgb 11.3 L (14.0-18.0) g/dL Hct 35.7 L (42.0-52.0) % Plt Count 282 (150-375) k/mm3 Lymph # (Auto) 2.81 (0.9-3.2) K/mm3 [place] # (Auto) 0.6 (0.1-0.6) K/mm3 Eos # (Auto) 0.2 (0-0.3) K/mm3 Baso # (Auto) 0.1 (0.0-0.1) K/mm3 Comprehensive Metabolic Panel 07/23/24 Range/Units 20:13 Sodium 140 (137-145) mmol/L Potassium 3.7 (3.4-5.0) mmol/L Chloride 104 (98-107) mmol/L Carbon Dioxide 23 (22-30) mmol/L BUN 13 (9-20) mg/dL Creatinine 0.89 (0.7-1.3) mg/dL Glucose 151 H (65-110) mg/dL Calcium 8.8 (8.4-10.2) mg/dL AST 30 (17-59) U/L ALT 21 (6-50) U/L Alkaline Phosphatase 99 (38-126) U/L Total Protein 7.0 (6.3-8.2) g/dL Albumin 3.6 (3.5-5.1) g/dL
--- NOTE | 2024-07-24 13:44 | PC.NURSE ---
This patient, Albaro Anderson, was admitted to IMU status, and placed in Intensive Care Unit-6. Patient/family oriented to hospital policies and general routines including ID bracelet, bed and alarms, visiting hours, pain management, procedures, bathroom and other care routines, personal items, smoking policy, room service/diet, and visiting hours. Valuables list has been completed. Information on how to activate the Rapid Response Team has been discussed. Patient/Family are encouraged to report perceived risks to care and to ask questions if they do not understand what they are told or what they should do.
[2024-07-24 14:00] VITALS: BP 159/78; PULSE 90; RESP 20; TEMP 36.9; O2SAT 99
[2024-07-24 14:09] VITALS: BMI 24.7
--- NOTE | 2024-07-24 14:56 | PM.SD2 ---
Same Day Admit/Disch: HPI History of Present Illness Chief complaint: elevated troponin, atypical chest pain Narrative: Albaro Anderson is a 74 year old male ER-HPI narrative: Patient is a 74-year-old Moh[place] male who presents to the ER after experiencing chest pain and elevated blood pressure at home. Through the rn case management patient's and his 's report patient started experiencing anxiety and nervousness this afternoon. His took his blood pressure and it was 168/100. They called his daughter who told them they need to call EMS and have pt transported to the hospital. At that time patient reports his pain was a 3/10. Patient's reports they were given medication for anxiety upon discharge from hospital she did not want to give it to him because she does not want him to become dependent on it. At the time of examination denies chest pain, back pain, shortness of breath. Patient is Mohawk speaking only and no family member is present some note are from ER, cardiology and previous note, patient was recently admitted with CP and had cardiac cath and discharged home, he presented with chest pain and his blood pressure was elevated. patient was seen by skilled labor and increased losartan, and plan was to monitor the patient. patient is very anxious and does not cooperate and wants to go home, I call patient grandson Michael explain to him that patient wants to go home, and will discharge the patient, suspect patient is reactive depression with recent cardiac event, recommneded and started the patient on celexa 10mg and patient to follow up with his primary care and skilled labor as soon as possible. [facility] Past Medical History Medical History Benign prostate hyperplasia ST elevation myocardial infarction (STEMI) (06/22/24) status post PCI to the LAD Ischemic cardiomyopathy Type 2 diabetes mellitus Hypertension Compression fracture of L4 vertebra Hyperlipidemia Urinary retention Chronic indwelling Joiner catheter Coronary artery disease Surgical History Surgical History History of open reduction and internal fixation (ORIF) procedure repair of left 4 through 9 rib fractures History of percutaneous coronary intervention (05/2024) PCI to the LAD Family History Family History Mother Family history unknown Social History Social History Social History: Surrogate medical decision maker: Delta Anderson, daughter ([phone]). Code status: Full code. Smoking status: Never smoker Alcohol intake: never Substance use: never Substance use type: does not use Do You Feel Safe in your Home?: Yes Lack of Transportation: YES Lack of Food: Never True Current Housing: I Have Housing Concerned About Future Housing: No Difficulty Paying Gas/Electric Bills: No Difficulty Paying for Meds: YES Currently Unemployed: No Education: Don't Know Difficulty w/ Childcare or Family Care: YES Living arrangements: with family Gender identity (if verbalized by the patient): Male Sexual Orientation (if Verbalized by the Patient): Straight or Heterosexual Spiritual care concerns: No Same Day Admit/Disch: Med Pre-admit Medications Home Medications ?Medication ?Instructions ?Recorded ?Confirmed ?Type insulin glargine 100 unit/mL 18 unit subcut DAILY DM 10/29/23 07/24/24 History subcutaneous solution (Lantus U-100 Insulin) insulin lispro 100 unit/mL 1 sliding scale dose subcut ACHS dm 10/29/23 07/24/24 History subcutaneous pen lactulose 10 gram/15 mL oral 30 ml PO TID 06/22/24 07/24/24 History solution ticagrelor 90 mg tablet (Brilinta) 90 mg PO Q12HR #90 tabs 06/24/24 07/24/24 Rx aspirin 81 mg tablet,delayed 81 mg PO QAM #90 tabs 06/25/24 07/24/24 Rx release atorvastatin 80 mg tablet (Lipitor) 80 mg PO DAILY #90 tabs 06/25/24 07/24/24 Rx losartan 25 mg tablet 25 mg PO DAILY #90 tabs 06/25/24 07/24/24 Rx metoprolol succinate 50 mg 50 mg PO DAILY #90 tabs 06/25/24 07/24/24 Rx tablet,extended release 24 hr (Toprol XL) tamsulosin 0.4 mg capsule 0.4 mg PO QAM #30 caps 07/01/24 07/24/24 Rx potassium chloride 20 mEq 20 meq PO BID 5 days #10 tabs 07/19/24 07/24/24 Rx tablet,extended release(part/cryst) (Klor-Con M) citalopram 10 mg tablet (Celexa) 10 mg PO DAILY #30 tabs 07/24/24 Rx Review of Systems Review of Systems A complete review of systems was negative other than those mentioned in HPI Exam Narrative: Patient is comfortable, NAD HEENT: eyes are clear and none icteric LUNGS:CTA HEART: RR S1S2 ABD: BS+, Soft and nontender Lower extremities: no edema SKIN: nonjaundiced Neuro: grossly intact. DS: Data Data Completed and Pending Labs on day of discharge: Labs from last 24 hours 07/24/24 07/23/24 07/23/24 02:29 23:47 20:13 WBC 8.2 RBC 4.01 L Hgb 11.3 L Hct 35.7 L MCV 89.0 MCH 28.2 MCHC 31.7 L RDW 15.5 H Plt Count 282 MPV 12.9 H Immature Gran % (Auto) 0.1 Neut % (Auto) 54.5 Lymph % (Auto) 34.5 [place] % (Auto) 7.7 Eos % (Auto) 2.5 Baso % (Auto) 0.7 Lymph # (Auto) 2.81 [place] # (Auto) 0.6 Eos # (Auto) 0.2 Baso # (Auto) 0.1 Abs Immat Gran (auto) 0.01 Absolute Neuts (auto) 4.4 Absolute Nucleated RBC 0.000 Nucleated RBC % 0.0 % Immature Plt Fraction 2.0 PT 13.6 INR 1.0 APTT 26.4 Sodium 140 Potassium 3.7 Chloride 104 Carbon Dioxide 23 Anion Gap 13 H BUN 13 Creatinine 0.89 Estim Creat Clear Calc 53 Estimated GFR > 60 Glucose 151 H Calcium 8.8 Total Bilirubin 1.0 AST 30 ALT 21 Alkaline Phosphatase 99 Troponin I 0.199 H* 0.247 H* 0.254 H* Total Protein 7.0 Albumin 3.6 Lipase 198 DS: Summary Hospital Course Reason for hospitalization: Chest pain Hospital Course: Patient is Mohawk speaking only and no family member is present some note are from ER, cardiology and previous note, patient was recently admitted with CP and had cardiac cath and discharged home, he presented with chest pain and his blood pressure was elevated. patient was seen by skilled labor and increased losartan, and plan was to monitor the patient. patient is very anxious and does not cooperate and wants to go home, I call patient grandson Michael explain to him that patient wants to go home, and will discharge the patient, suspect patient is reactive depression with recent cardiac event, recommneded and started the patient on celexa 10mg and patient to follow up with his primary care and skilled labor as soon as possible. Status at Discharge Cognitive/behavioral status at discharge: stable Time Spent with Patient Time attestation: Total time spent providing and/or coordinating discharge services: DS: Admitting Diagnosis Discharge Date 07/24/24 Admitting Diagnosis Chest pain DS: Discharge Diagnosis Discharge Diagnosis (1) Hypertension: Code(s): I10 - Essential (primary) hypertension Status: Acute (2) Acute on chronic systolic heart failure: Code(s): I50.23 - Acute on chronic systolic (congestive) heart failure Status: Acute (3) Ischemic cardiomyopathy: Code(s): I25.5 - Ischemic cardiomyopathy Status: Acute (4) Non-ST elevated myocardial infarction: Code(s): I21.4 - Non-ST elevation (NSTEMI) myocardial infarction Status: Acute (5) NSTEMI (non-ST elevated myocardial infarction): Code(s): I21.4 - Non-ST elevation (NSTEMI) myocardial infarction Status: Acute (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 patient was seen by skilled labor and increased losartan, and plan was to monitor the patient. patient is very anxious and does not cooperate and wants to go home, I call patient grandson Michael explain to him that patient wants to go home, and will discharge the patient, suspect patient is reactive depression with recent cardiac event, recommneded and started the patient on celexa 10mg and patient to follow up with his primary care and skilled labor as soon as possible. Discharge Plan Discharge Attending physician on discharge: Jeanmarie Forbes Consulting providers: Arnaldo Carrizales; Peyton De Guzman; Pascual Oakley; Rory Herron Discharging Clinician: Kavita Zhang Patient Disposition: Home Health Service Activity: as tolerated Diet: heart healthy Discharge Instructions: Per Care Coordination: Resume [facility] Home Health Care for RN, PT, OT RN Please fax discharge orders to [phone] Patient to follow discharge care instruction from his skilled labor and follow up as scheduled, patient to follow up with his primary care provider as soon as possible, If any symptoms redevelop to go to nearest ER. Patient Instructions: Antibiotic Form, Ticagrelor (By mouth), Chest Pain (GEN), Anxiety (GEN) Patient Language: Mohawk Stand Alone Forms: General Discharge Information Follow-up/Referrals: Adriane Cardona DO [Physician] - Nikolas,Donavon Chaidez MD [Primary Care Provider] - Discharge Medications: New citalopram [Celexa] 10 mg tablet 10 mg PO DAILY Qty: 30 0RF Continued lactulose 10 gram/15 mL solution 30 ml PO TID Brilinta 90 mg Tablet 90 mg PO Q12HR Qty: 90 3RF aspirin 81 mg Tablet,Delayed Release (Dr/Ec) 81 mg PO QAM Qty: 90 3RF atorvastatin [Lipitor] 80 mg tablet 80 mg PO DAILY Qty: 90 3RF losartan 25 mg Tablet 25 mg PO DAILY Qty: 90 3RF metoprolol succinate [Toprol XL] 50 mg tablet extended release 24 hr 50 mg PO DAILY Qty: 90 3RF tamsulosin 0.4 mg Capsule 0.4 mg PO QAM Qty: 30 0RF insulin glargine [Lantus U-100 Insulin] 100 unit/mL solution 18 unit SUBCUT DAILY insulin lispro 100 unit/mL insulin pen 1 sliding scale dose SUBCUT ACHS potassium chloride [Klor-Con M20] 20 mEq tablet,ER particles/crystals 20 meq PO BID 5 Days Qty: 10 0RF Date of admission: 07/24/24 02:24 Primary Care Provider: Nikolas,Donavon Chaidez Admitting Provider: Jeanmarie Forbes Attending physician on admission: Kavita Zhang Condition: Stable
== END 2024-07-24 15:44 | disposition home health service (06) ==
LOC: ANHED 07-24 02:19 → ANHICU 07-24 14:11 → ANHIMU 07-25 07:23
PROVIDERS: Emergency Medicine; Admitting Provider Internal Medicine; Emergency Provider Registered Nurse; PCP Family Medicine Sports Medicine; Visit Provider Family Medicine
DX: I21.4 Non-ST elevation (NSTEMI) myocardial infarction (principal); I25.2 Old myocardial infarction; I25.10 Atherosclerotic heart disease of native coronary artery without angina pectoris; I25.5 Ischemic cardiomyopathy; I11.0 Hypertensive heart disease with heart failure; I50.23 Acute on chronic systolic (congestive) heart failure; F06.31 Mood disorder due to known physiological condition with depressive features; F41.9 Anxiety disorder, unspecified; E11.9 Type 2 diabetes mellitus without complications; E78.5 Hyperlipidemia, unspecified; M48.56XA Collapsed vertebra, not elsewhere classified, lumbar region, initial encounter for fracture; N40.1 Benign prostatic hyperplasia with lower urinary tract symptoms; R33.8 Other retention of urine; Z97.8 Presence of other specified devices; Z95.5 Presence of coronary angioplasty implant and graft; Z79.4 Long term (current) use of insulin; Z79.82 Long term (current) use of aspirin; Z79.899 Other long term (current) drug therapy
CPT/HCPCS: 36415; 71046; 80053; 83690; 84484; 85025; 85055; 85610; 85730; 93005; 96372; 99285; A9270; G0378; J1650

== ENCOUNTER 2024-08-05 08:56 | Emergency (ER) | payer OTHER, SELFPAY ==
[2024-08-05] VITALS (8 sets, daily range): BP systolic 111–169; BP diastolic 60–81; PULSE 59–75; RESP 12–24; TEMP 36.6; O2SAT 97–100
--- NOTE | ~2024-08-05 | XR_ITS ---
EXAMINATION: XR chest 2V DATE: 08/05/2024 10:27 INDICATION: Weakness. Abdominal pain. TECHNIQUE: Frontal and lateral views of the chest were obtained. COMPARISON: Chest 2 views 07/23/2024 FINDINGS: There is no pneumonia, pleural effusion, or pneumothorax. The heart size is normal. There a re old healed bilateral rib fractures. There is plate and screw fixation of multiple right-sided ribs . 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 IMPRESSION: 1. No acute cardiopulmonary disease. Reviewed, dictated and finalized at location B.
--- NOTE | ~2024-08-05 | CT_ITS ---
EXAMINATION: CT brain wo con DATE: 08/05/2024 10:21 INDICATION: Confusion. TECHNIQUE: Computed tomography (CT) of the head was performed without intravenous contrast. The mA wa s adjusted according to patient size. Iterative reconstruction technique was employed. The dose-lengt h product was 605.33 mGy-cm. 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 There are old infarcts in the right fr ontal and parietal lobes. There is an old infarct involving the left basal ganglia and adjacent white matter. There is an old infarct in the serjio. There is no intracranial hemorrhage, acute infarction, or abnormal intracranial mass lesion. There is ex vacuo dilatation of left lateral ventricle. There i s mucosal thickening in the paranasal sinuses. There are likely changes of ocular lens replacement mejia rgeries. The mastoid air cells are normal. IMPRESSION: 1. Old infarcts in the brain. Reviewed, dictated and finalized at location B.
--- NOTE | 2024-08-05 09:29 | ECG_ITS ---
Test Date: 2024-08-05 09:52:10 Measurements Intervals [place] Rate: 74 P: 48 RI: 173 QRS: -13 QRSD: 146 T: 122 QT: 416 QTc: 464 Interpretive Statements SINUS RHYTHM LEFT BUNDLE BRANCH BLOCK [120+ ms QRS DURATION, 80+ ms Q/S IN V1/V2, 85+ ms R IN I/aVL/V5/V6] Compared to ECG 07/23/2024 20:23:15 Left bundle-branch block now present T-wave abnormality no longer present Possible ischemia no longer present Electronically Signed On 08-05-2024 11:42:39 CDT by Gerhard Ratliff M.D.
--- NOTE | 2024-08-05 09:30 | ED_ITS ---
HPI - Weakness General Chief complaint: Weakness Stated complaint: not feeling well Time Seen by Provider: 08/05/24 09:09 Source: patient and family Mode of arrival: wheelchair Limitations: altered mental status History of Present Illness HPI Narrative: This is a 74-year-old male that presents to the emergency department for confusion ongoing since yesterday. Family members sent him in for evaluation. Reports he seems confused since yesterday, his blood sugar is elevated and he has some swelling in his legs. Patient reports feeling generally unwell, cannot localize any symptoms. Related Data Home Medications ?Medication ?Instructions ?Recorded ?Confirmed ?Last Taken ?Type insulin glargine 100 unit/mL 18 unit subcut DAILY DM 10/29/23 07/24/24 07/17/24 History subcutaneous solution (Lantus U-100 Insulin) insulin lispro 100 unit/mL 1 sliding scale dose subcut ACHS dm 10/29/23 07/24/24 07/17/24 History subcutaneous pen lactulose 10 gram/15 mL oral 30 ml PO TID 06/22/24 07/24/24 Unknown History solution Allergies Allergy/AdvReac Type Severity Reaction Status Date / Time No Known Allergies Allergy Verified 08/05/24 09:48 Review of Systems 2 Review of Systems: ROS unobtainable: Yes unobtainable due to mental status PMFSH Past Medical History Medical History Benign prostate hyperplasia ST elevation myocardial infarction (STEMI) (06/22/24) status post PCI to the LAD Ischemic cardiomyopathy Type 2 diabetes mellitus Hypertension Compression fracture of L4 vertebra Hyperlipidemia Urinary retention Chronic indwelling Joiner catheter Coronary artery disease Surgical History Surgical History History of open reduction and internal fixation (ORIF) procedure repair of left 4 through 9 rib fractures History of percutaneous coronary intervention (05/2024) PCI to the LAD Family History Family History Mother Family history unknown Social History Social History Social History: Surrogate medical decision maker: Delta Anderson, daughter ([phone]). Code status: Full code. Smoking status: Never smoker Alcohol intake: never Substance use: never Substance use type: does not use Do You Feel Safe in your Home?: Yes Lack of Transportation: YES Lack of Food: Never True Current Housing: I Have Housing Concerned About Future Housing: No Difficulty Paying Gas/Electric Bills: No Difficulty Paying for Meds: YES Currently Unemployed: No Education: Don't Know Difficulty w/ Childcare or Family Care: YES Living arrangements: with family Gender identity (if verbalized by the patient): Male Sexual Orientation (if Verbalized by the Patient): Straight or Heterosexual Spiritual care concerns: No Exam 2 Narrative: GENERAL: Elderly, well-nourished, and in no acute distress. HEAD: Normocephalic, atraumatic. EYES: PERRLA and EOMI. ENT: Nares clear, no rhinorrhea or epistaxis. Mucous membranes moist. Oropharynx without tonsillar hypertrophy exudate or other lesions. Bilateral TMs pearly zapaat non-bulging NECK: Supple. No adenopathy or masses. CHEST: Clear to auscultation. No respiratory distress. No wheezes rales or rhonchi HEART: Regular rate and rhythm. No murmur heard. Normal peripheral pulses. ABDOMEN: Soft, nontender, nondistended, normal active bowel sounds. EXTREMITIES: Normal range of motion. Non-pitting edema to the bilateral lower legs and feet. SKIN: Warm, dry, no rash. NEURO: No focal deficits. Alert and oriented x2. CN II-XII grossly intact PSYCH: Normal mood and affect Course Course Emergency Course: Patient and family updated on his workup. He is resting comfortably. Encouraged to have close follow-up with his primary for further evaluation Vital Signs Vital signs: Vital Signs Pulse Rate 75 08/05/24 09:05 Respiratory Rate 24 H 08/05/24 09:05 Blood Pressure 169/81 H 08/05/24 09:05 Temperature 97.8 F 08/05/24 09:23 Pulse Rate 60 08/05/24 11:46 Respiratory Rate 16 08/05/24 11:46 Blood Pressure 111/60 08/05/24 11:46 Pulse Oximetry 99 08/05/24 11:46 Oxygen Delivery Room Air 08/05/24 09:23 MDM - Weakness MDM Narrative Medical decision making narrative: Patient presents to the emergency department for reports of confusion, generalized weakness, blood sugar elevation. Patient is afebrile and nontoxic appearing. Blood pressure elevated upon arrival, this normalized without intervention. Cbc without leukocytosis. Patient's hemoglobin appears stable. Metabolic panel without concerning findings. His blood sugars 193. Urine without evidence of infection. Influenza, RSV and COVID screens are negative. Patient's BNP is elevated, and downtrending from previous visit. He does not have any shortness of breath. Oxygen saturation is normal on room air. Chest x-ray without acute cardiopulmonary abnormality. 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 EKG shows a left bundle-branch block, patient's baseline troponin is not elevated. He does not endorse any chest pain at this time. Patient and family updated on his workup. He is resting comfortably. Encouraged to have close follow-up with his primary for further evaluation Differential Diagnosis Differential diagnosis: Likely anemia, dehydration and other (Electrolyte derangement, infection) Lab Data Attestation: I reviewed the patient's lab results. 08/05/24 09:50 08/05/24 09:50 Labs: Lab Results 08/05/24 08/05/24 08/05/24 Range/Units 09:50 09:52 10:41 WBC 8.0 (4.5-10.0) K/mm3 RBC 4.21 L (4.6-6.20) M/mm3 Hgb 11.8 L (14.0-18.0) g/dL Hct 37.8 L (42.0-52.0) % MCV 89.8 (80-100) fl MCH 28.0 (26-34) pg MCHC 31.2 L (32-36) g/dl RDW 15.7 H (11.5-14.5) % Plt Count 259 (150-375) k/mm3 MPV 11.0 H (7.4-10.4) fl Immature Gran % (Auto) 0.4 (0-0.5) % Neut % (Auto) 70.2 (45.5-73.1) % Lymph % (Auto) 19.7 (18.3-44.2) % [place] % (Auto) 8.6 H (2.6-8.5) % Eos % (Auto) 0.6 (0-4.4) % Baso % (Auto) 0.5 (0.2-1.2) % Lymph # (Auto) 1.58 (0.9-3.2) K/mm3 [place] # (Auto) 0.7 H (0.1-0.6) K/mm3 Eos # (Auto) 0.1 (0-0.3) K/mm3 Baso # (Auto) 0.0 (0.0-0.1) K/mm3 Abs Immat Gran (auto) 0.03 (0.00-0.031) K/mm3 Absolute Neuts (auto) 5.7 (1.3-6.7) K/mm3 Absolute Nucleated RBC 0.000 (0.0-0.012) K/mm3 Nucleated RBC % 0.0 (0.0-0.2) % PT 13.7 (11.1-14.7) Seconds INR 1.0 APTT 25.0 (22.3-36.8) Seconds Sodium 134 L (137-145) mmol/L Potassium 3.8 (3.4-5.0) mmol/L Chloride 98 (98-107) mmol/L Carbon Dioxide 28 (22-30) mmol/L Anion Gap 8 (4-12) mmol/L BUN 14 (9-20) mg/dL Creatinine 0.92 (0.7-1.3) mg/dL Estim Creat Clear Calc 50 ml/min Estimated GFR > 60 (59 - ) Glucose 193 H (65-110) mg/dL POC Capillary Glucose 193 H (65-105) mg/dl Calcium 8.5 (8.4-10.2) mg/dL Total Bilirubin 1.0 (0.2-1.3) mg/dL AST 25 (17-59) U/L ALT 28 (6-50) U/L Alkaline Phosphatase 109 (38-126) U/L Troponin I 0.034 (0.000-0.034) ng/mL NT-Pro-B Natriuret Pep 4340 H (19.9-100) pg/mL Total Protein 7.0 (6.3-8.2) g/dL Albumin 3.9 (3.5-5.1) g/dL Urine Color Yellow (Yellow) Urine Appearance Clear (Clear) Urine pH 7.0 (5.0-9.0) Ur Specific [place] 1.012 (1.001-1.035) Urine Protein Trace (Negative) mg/dL Urine Glucose (UA) Negative (Negative) mg/dL Urine Ketones Trace H (Negative) mg/dL Ur Blood (Man) Negative (Negative) Urine Nitrate Negative (Negative) Urine Bilirubin Negative (Negative) Urine Urobilinogen 0.2 (<2.0) mg/dL Leukocyte Esterase Rfl Negative (Negative) CHARLIE/UL Urine RBC 0-2 (0-2) /hpf Urine WBC 0-5 (0-3) /hpf Ur Squamous Epith Cells None seen (Few) /hpf Urine Bacteria None seen /hpf Urine Casts 0-2 Influenza A (RT-PCR) Negative (Negative) Influenza B (RT-PCR) Negative (Negative) RSV (RT-PCR) Negative (Negative) SARS-CoV-2 RNA (RT-PCR) Negative (Negative) Imaging Data Radiologist's impression: ITS Impressions Head CT 08/05/24 10:22 IMPRESSION: 1. Old infarcts in the brain. Chest X-Ray 08/05/24 10:28 IMPRESSION: 1. No acute cardiopulmonary disease. ECG Data EKG #1: ECG completion date: 08/05/24 EKG Interpretation: sinus rhythm, LBBB and normal QT Critical Care Time Critical Care Time Critical Care Time: No Discharge Plan Discharge Clinical Impression: Generalized weakness Patient Disposition: Home, Self-Care Condition: Stable Instructions: Weakness (ED) Additional Instructions: Return to the emergency department if you experience fever, chest pain, shortness of breath, abdominal pain with nausea and vomiting, weakness, numbness, or any other symptoms that are concerning to you. Follow up with your primary care doctor for further evaluation/management Patient Language: Italian Prescriptions: No Action lactulose 10 gram/15 mL solution 30 ml PO TID Brilinta 90 mg Tablet 90 mg PO Q12HR Qty: 90 3RF aspirin 81 mg Tablet,Delayed Release (Dr/Ec) 81 mg PO QAM Qty: 90 3RF atorvastatin [Lipitor] 80 mg tablet 80 mg PO DAILY Qty: 90 3RF losartan 25 mg Tablet 25 mg PO DAILY Qty: 90 3RF metoprolol succinate [Toprol XL] 50 mg tablet extended release 24 hr 50 mg PO DAILY Qty: 90 3RF tamsulosin 0.4 mg Capsule 0.4 mg PO QAM Qty: 30 0RF insulin glargine [Lantus U-100 Insulin] 100 unit/mL solution 18 unit SUBCUT DAILY insulin lispro 100 unit/mL insulin pen 1 sliding scale dose SUBCUT ACHS potassium chloride [Klor-Con M20] 20 mEq tablet,ER particles/crystals 20 meq PO BID 5 Days Qty: 10 0RF citalopram [Celexa] 10 mg tablet 10 mg PO DAILY Qty: 30 0RF Follow-up/Referrals: Nikolas,Donavon Chaidez MD [Primary Care Provider] -
--- OUTSIDE RECORDS SUMMARY | 2024-08-05 09:48 | XMS_ITS | Referral Summary ---
Author Organization [facility] Address [address] [place] [address] Care Team Providers Care Machine Burrer Name Role Phone Unknown, Provider Primary Care Provider Donavon Holguin MD Unavailable [phone] Source Comments [facility],non-owned Affiliates and Associated Physician Practices is amultiple site organization consisting of ambulatory clinics and hospital sitesin [place], [place], [place] and [place]. This disclosure is being madepursuant to the Care Everywhere program and may not contain all information available regarding this patient. Last updated 18.[facility] Allergies Active Allergy Reactions Criticality Noted Date [...] tablet 01/01/2023 Active Blood Glucose Monitoring Suppl (Innovis Verio Flex System) w/Device KIT USE DIRECTED THREE TIMES DAILY 01/01/2023 Active erythromycin (Romycin) 5 MG/GM ophthalmic ointment 03/23/2023 Active mPortuch Ultra test strip USE TO TEST FOUR TIMES DAILY 03/27/2023 Active TRUEplus 5-Bevel Pen [place] 32G X 4 MM MISC USE TO INJECT INSULIN UP TO 5 TIMES DAILY 07/11/2023 Active TRUEplus Insulin Syringe 30G X 5/16 0.5 ML MISC USE DIRECTED EVERY DAY 01/01/2023 Active Lancets (mSchoolTOUCH DELICA PLUS 33G EXTRA FINE LANCET) TEST [...] original. Could not [facility] [place] afford to provide a Home Health nurse [...] Follow up in: three months with PCP, Aquaculture Director, Link Wire Fabric Machine Operator, Fruit Picker, Established eye neonatal critical care nurse and Farm Tractor Mechanic Last Assessment & Plan: Not on any [...] exercise activity to 3- 4 times weekly. Albrao verbalized understanding and advised to keep all scheduled appointments. Follow up in: three months with PCP, Aquaculture Director, Link Wire Fabric Machine Operator, Fruit Picker, Established eye neonatal critical care nurse and Farm Tractor Mechanic Infected wound 04/12/2020 Sacral wound 02/19/2020 Urinary [...] Description 11/27/2024 10:30 AM CDT Office Visit [facility] - Ophthalmology [address] [place] [address] Medical Devices Implanted Type Area Head Of Sales Promotion Device Identifier Shelf Expiration Date Model / Serial / Lot Gd Pin Orth 450mm 3.2mm Cocr Xtd Acc Implanted:Qty: 1 on 01/31/2020 by Dipesh Felix MD at [facility] Right: Sacral Iliac Joint [employer] [id number] / / Wshr 12.7mm 6.5mm Set Unv Orth Ss 1mm Implanted:Qty: 1 on 01/31/2020 by Dipesh Felix MD at [facility] Right: Sacral Iliac Joint [employer] [id number] / / Cannulated Screw, 4.0mm X40mm 1/2 Thread Implanted:Qty: 2 on 01/31/2020 by Dipesh Felix MD at [facility] Right: Ankle [id number] / / 8.0 X 9.5 Fully Threaded Screw Implanted:Qty: 1 on 01/31/2020 by Dipesh Felix MD at [facility] [id number] / / Plate 8 Hl Unv Matrixrib Ti Bone Nonster Implanted:Qty: 5 on 02/05/2020 by Dipesh Hernandez MD at [facility] Right: Chest Wall [employer] .009 / / 2.7 Mm Matrixrib Locking Screw, Self-Drilling, 11mm Implanted:Qty: 35 on 02/05/2020 by Dipesh Hernandez MD at [facility] Right: Chest Wall 501.211.0 1 / / 2.7 Mm Matrixrib Locking Screw, Self-Drilling, 12mm Implanted:Qty: 2 on 02/05/2020 by Dipesh Hernandez MD at [facility] Right: Chest Wall 04.501.212.0 1 / / Plate 16 Hl Precontr Lck Lopro 4th Rb Implanted:Qty: 1 on 02/05/2020 by Dipesh Hernandez MD at [facility] Right: Chest Wall [employer] 04.501.004 / / Clareon Uv Iol Ccaoto +23.0d Implanted:Qty: 1 on 09/28/2023 by Simeon Cannon MD at [facility] Left: Eye [employer] 02/20/2027 CCAOTO+23.0D / [id number] / N/A [employer] Iol Aspheric Uv Absorbing Iol Implanted:Qty: 1 on 10/12/2023 by Simeon Cannon MD at [facility] Right: Eye [employer] 02/18/2027 CCA0T0 +23.5D / [id number] / NA Procedures Procedure Name Priority Date/Time Associated Diagnosis Comments COMPREHENSIVE METABOLIC PANEL STAT 06/30/2020 2:29 PM GEOSCIENCES ASSOCIATE PROFESSOR HEMOGLOBIN A1C Routine 04/18/2020 11:09 AM GEOSCIENCES ASSOCIATE PROFESSOR from Last 3 Months or Most Recently Relevant to Health Maintenance Results * (ABNORMAL) COMPREHENSIVE METABOLIC PANEL (06/30/2020 2:29 PM GEOSCIENCES ASSOCIATE PROFESSOR) BUN 29(H) 7 - 26 mg/dL 06/30/2020 3:00 PM [facility] Creatinine 1.2 0.6 - 1.2 mg/dL 06/30/2020 3:00 PM [facility] Sodium 138 136 - 145 mmol/L 06/30/2020 3:00 PM [facility] Potassium 3.7 3.5 - 4.5 mmol/L 06/30/2020 3:00 PM [facility] Chloride 96(L) 98 - 107 mmol/L 06/30/2020 3:00 PM [facility] CO2 28 22 - 29 mmol/L 06/30/2020 3:00 PM [facility] Glucose 144(H) 70 - 115 mg/dL 06/30/2020 3:00 PM GEOSCIENCES ASSOCIATE PROFESSOR [facility] Calcium 8.8 8.4 - 10.2 mg/dL [...] Unknown Venipuncture / Unknown 06/30/2020 2:29 PM GEOSCIENCES ASSOCIATE PROFESSOR 06/30/2020 2:37 PM [facility] Shaggy James MD LAB - CHEMISTRY KATHY CAMPA [facility] [address] [place] [address] [phone] * (ABNORMAL) HEMOGLOBIN A1C (04/18/2020 11:09 AM [facility]) Hemoglobin A1c 7.6(H) 4.4 - [...] Equal to or greater than 6.5% Reference: [place] Diabetes Association Standards of Care in Diabetes -2014 In patients 70 years and older consider HbA1c target range of 7.0-7.5% Reference: Diabetes Mellitus in Older People: Position Statement on behalf of the International Association of Gerontology and Geriatrics (IAGG), the Diabetes Working Democrat for Older People (EDWPOP), and the International Task Force of Experts in Diabetes. Ritesh Srinivasan, et al. J [place] Medical Directors Association. 2012 Test results diagnostic of diabetes should be repeated for confirmation. The Sebia Capillary 2 assay for the measurement of HbA1c is a National Glycohemoglobin Standardization Program (NGSP)certified method. Blood BLOOD SPECIMEN / Unknown Lab Venipuncture / Unknown 04/18/2020 11:09 AM GEOSCIENCES ASSOCIATE PROFESSOR 04/18/2020 11:40 AM GEOSCIENCES ASSOCIATE PROFESSOR Narrative [facility] - 04/19/2020 9:00 AM GEOSCIENCES ASSOCIATE PROFESSOR note^note Zhane Granger MD LAB - CHEMISTRY OR DERABLES [facility] [address] [place] [address], [facility] [phone] from Last 3 Months or Most Recently [...] 3:26 PM 02/19/2020 5:52 PM Care Teams Machine Burrer Relationship Specialty Start Date End Date Unknown, Provider PCP - General 08/30/23 Donavon Connor MD Family Medicine 08/30/23
--- OUTSIDE RECORDS SUMMARY | 2024-08-05 09:48 | XMS_ITS | Clinical Summary ---
Author Organization [facility] Address [address] [place] [address] Care Team Providers Care Circular Head Saw Operator Name Role Phone Unknown, Provider Primary Care Provider Donavon Holguin MD Unavailable [phone] Source Comments [facility],non-owned Affiliates and Associated Physician Practices is amultiple site organization consisting of ambulatory clinics and hospital sitesin [place], [place], [place] and [place]. This disclosure is being madepursuant to the Care Everywhere program and may not contain all information available regarding this patient. Last updated 18.[facility] Allergies Active Allergy Reactions Criticality Noted Date [...] tablet 01/01/2023 Active Blood Glucose Monitoring Suppl (i-Nalysis Verio Flex System) w/Device KIT USE DIRECTED THREE TIMES DAILY 01/01/2023 Active erythromycin (Romycin) 5 MG/GM ophthalmic ointment 03/23/2023 Active Clearstream.TVuch Ultra test strip USE TO TEST FOUR TIMES DAILY 03/27/2023 Active TRUEplus 5-Bevel Pen [place] 32G X 4 MM MISC USE TO INJECT INSULIN UP TO 5 TIMES DAILY 07/11/2023 Active TRUEplus Insulin Syringe 30G X 5/16 0.5 ML MISC USE DIRECTED EVERY DAY 01/01/2023 Active Lancets (EdgeCast NetworksTOUCH DELICA PLUS 33G EXTRA FINE LANCET) TEST [...] original. Could not [facility] [place] afford to provide a Home Health nurse [...] Follow up in: three months with PCP, Exercise Instruct, Radiology Asst, Supervisor Asbestos Textile, Established eye care giver and C++ Professor Last Assessment & Plan: Not on any [...] Follow up in: three months with PCP, Exercise Instruct, Radiology Asst, Supervisor Asbestos Textile, Established eye care giver and C++ Professor Infected wound 04/12/2020 Sacral wound 02/19/2020 Urinary [...] Office Visit [facility] - Ophthalmology [address] [place] [address] [phone] Health Maintenance Due Date Last Done Comments [...] this topic Medical Devices Implanted Type Area Newspaper Delivery Driver Device Identifier Shelf Expiration Date Model / Serial / Lot Gd Pin Orth 450mm 3.2mm Cocr Xtd Acc Implanted:Qty: 1 on 01/31/2020 by Dipesh Felix MD at [facility] Right: Sacral Iliac Joint [employer] [id number] / / Wshr 12.7mm 6.5mm Set Unv Orth Ss 1mm Implanted:Qty: 1 on 01/31/2020 by Dipesh Felix MD at [facility] Right: Sacral Iliac Joint [employer] [id number] / / Cannulated Screw, 4.0mm X40mm 1/2 Thread Implanted:Qty: 2 on 01/31/2020 by Dipesh Felix MD at [facility] Right: Ankle [id number] / / 8.0 X 9.5 Fully Threaded Screw Implanted:Qty: 1 on 01/31/2020 by Dipesh Felix MD at [facility] [id number] / / Plate 8 Hl Unv Matrixrib [...] Left: Eye [employer] 02/20/2027 CCAOTO+23.0D / [id number] / N/A [employer] Iol Aspheric Uv Absorbing Iol Implanted:Qty: 1 on 10/12/2023 by Simeon Cannon MD at [facility] Right: Eye [employer] 02/18/2027 CCA0T0 +23.5D / [id number] / NA Procedures Procedure Name Priority Date/Time Associated Diagnosis Comments COMPREHENSIVE METABOLIC PANEL STAT 06/30/2020 2:29 PM TRANSITIONAL CARE LIAISON HEMOGLOBIN A1C Routine 04/18/2020 11:09 AM [facility] from Last 3 Months or Most Recently Relevant to Health Maintenance Results * (ABNORMAL) COMPREHENSIVE METABOLIC PANEL (06/30/2020 2:29 PM [facility]) BUN 29(H) 7 - 26 mg/dL [...] Unknown Venipuncture / Unknown 06/30/2020 2:29 PM TRANSITIONAL CARE LIAISON 06/30/2020 2:37 PM [facility] Shaggy James MD LAB - CHEMISTRY KATHY CAMPA [facility] [address] [place] [address], [facility] [phone] * (ABNORMAL) HEMOGLOBIN A1C (04/18/2020 11:09 AM [facility]) Hemoglobin A1c 7.6(H) 4.4 - 6.3 [...] Equal to or greater than 6.5% Reference: [place] Diabetes Association Standards of Care in Diabetes -2014 In patients 70 years and older consider HbA1c target range of 7.0-7.5% Reference: Diabetes Mellitus in Older People: Position Statement on behalf of the International Association of Gerontology and Geriatrics (IAGG), the Diabetes Working Alliance Party for Older People (EDWPOP), and the International Task Force of Experts in Diabetes. Ritesh Srinivasan, et al. J [employer] Medical Directors Association. 2012 Test results diagnostic of diabetes should be repeated for confirmation. The Sebia Capillary 2 assay for the measurement of HbA1c is a National Glycohemoglobin Standardization Program (NGSP)certified method. Blood BLOOD SPECIMEN / Unknown Lab Venipuncture / Unknown 04/18/2020 11:09 AM TRANSITIONAL CARE LIAISON 04/18/2020 11:40 AM TRANSITIONAL CARE LIAISON Narrative [facility] - 04/19/2020 9:00 AM TRANSITIONAL CARE LIAISON note^note Zhane Granger MD LAB - CHEMISTRY OR DERABLES [facility] [address] [place] [address], [facility] [phone] from Last 3 Months or Most Recently [...] 3:26 PM 02/19/2020 5:52 PM Care Teams Circular Head Saw Operator Relationship Specialty Start Date End Date Unknown, Provider PCP - General 08/30/23 Donavon Connor MD Family Medicine 08/30/23
--- OUTSIDE RECORDS SUMMARY | 2024-08-05 09:49 | XMS_ITS | Clinical Summary ---
Author Organization [facility] Address [facility] [place] [address] Care Team Providers Care Turn Down Attendant Name Role Phone Donavon Connor MD Primary Care Provider [phone] Allergies Active Allergy Reactions Criticality Noted Date Comments Gentamicin Other (see comment),Unknown Low 06/06/2019 Reaction: Reaction: Hydroxypropyl Methylcellulose Unknown 01/13/2014 Artificial tears ingredient Medications vitamin B-12 (CYANOCOBALAMI N) 500 MCG tabletIndicati ons:vitamin deficiency Take 1 tablet (500 mcg total) by mouth daily. 30 tablet 024 Active tamsulosin (FLOMAX) 0.4 MG CapIndications :Benign prostatic hyperplasia (BPH) suspected Take 1 capsule (0.4 mg total) by mouth daily. 30 capsule 024 Active polyethylene glycol (GLYCOLAX) packetIndicati ons:Constipati on Take 240 mLs (17 g total) by mouth 2 (two) times daily as needed. Dissolve powder in 240 mL water 30 each 024 Active amLODIPine (NORVASC) 5 MG tabletIndicati ons:Hypertensi on Take 1 tablet (5 mg total) by mouth daily. Indications: High Blood Pressure 90 tablet 024 Active Zrluxbxd-Xih-H e-FA (, W/IRON & FA, OR)Indications :Nutritional Support Take 1 tablet by mouth daily. Indications: Nutritional Support 024 Active losartan (COZAAR) 25 MG tabletIndicati ons:Hypertensi on Take 1 tablet (25 mg total) by mouth daily. Indications: High Blood Pressure 30 tablet 11 025 Active insulin glargine (LANTUS) 100 UNIT/ML injection (VIAL)Indicati ons:Diabetes Mellitus Indications: Diabetes ADMINISTER 9 UNITS UNDER THE SKIN EVERY MORNING 10 mL 5 025 Active insulin lispro, 1 Unit Dial, (HUMALOG KWIKPEN) 100 UNIT/ML injection (PEN)Indicatio ns:Diabetes Mellitus Inject 4-10 Units into the skin see administration instructions. Indications: Diabetes Sliding Scale: 200-250+4u, 250-300 6u, 300-350+8u, 350-400 10u, >400 take 10u and re-measure after 30 min if still above 400 call a doctor 12 mL 3 025 Active guaiFENesin ER (MUCINEX) 600 MG 12 hr tabletIndicati ons:Ciliary Congestion Take 600 mg by mouth 2 (two) times daily. Indications: Ciliary Congestion 025 Active metoprolol succinate ER (TOPROL-XL) 50 MG 24 hr tabletIndicati ons:Hypertensi on Take 50 mg by mouth daily. Indications: High Blood Pressure 025 Active aspirin 81 MG chewable tabletIndicati ons:Prophylaxi s Chew 81 mg by mouth daily. Indications: Preventative Treatment 025 Active atorvastatin (LIPITOR) 20 MG tabletIndicati ons:Hyperchlor emia Take 80 mg by mouth daily. Indications: High Amount of Chloride in the Blood 025 Active ticagrelor (BRILINTA) 90 mg tabletIndicati ons:Diabetes Mellitus Take 90 mg by mouth once. Indications: Diabetes 025 Active amoxicillin (AMOXIL) 500 MG capsuleIndicat ions:Pneumonia Take 500 mg by mouth 3 (three) times daily. Indications: Pneumonia 025 Active lactulose (ENULOSE) 10 GM/15ML solutionIndica tions:Constipa tion TAKE 30 ML BY MOUTH THREE TIMES DAILY FOR CONSTIPATION 473 mL 025 Active lactulose (ENULOSE) 10 GM/15ML solutionIndica tions:Constipa tion TAKE 30 ML BY MOUTH THREE TIMES DAILY FOR CONSTIPATION 2700 mL 025 2024 Discontinued amoxicillin (AMOXIL) 500 MG capsuleIndicat ions:Cough Take 1 capsule (500 mg total) by mouth 3 (three) times daily for 15 days. Indications: Cough 45 capsule 025 2024 Active Problems Problem Noted Date Diagnosed Date [...] complication, with long-term current use of insulin ([facility]) 05/25/2020 05/04/2022 Essential hypertension 05/25/202005/04 Pressure injury of contiguou s region involving back and buttock, stage 3 05/25/202011/2021 Decreased mobility 02/10/2020 Fracture of left clavicle 01/26/2020 Fracture of manubrium 01/26/20202021 Fracture of medial malleolus of right tibia 01/26/2020 05/04/2022 L1 vertebral fracture ([facility]) 01/25/2020 05/04/2022 Diabetes mellitus ([facility]) 01/13/2014 2021 Encounters Date Type Department Care Team Description 08/02/2024 12:00 PM FISHERIES MANAGER Home Care Visit [address] [place] [address] [place] [address] Juliana Mcgrath RN SN DISCIPLINE DISCHARGE 08/02/2024 Home Care Visit [address] [place] [address] [place] [address] Juliana Mcgrath RN [facility] 07/30/2024 10:45 AM FISHERIES MANAGER Home Care Visit [address] [address] Meera Choi LPN SN HOME VISIT 07/29/2024 2:30 PM FISHERIES MANAGER Home Care Visit [address] [address] Catie Zabala, PT PT INITIAL EVALUATION 07/29/2024 9:20 AM FISHERIES MANAGER Office Visit [facility] Family and Sports Medicine [address] [phone] Donavon Connor MD Follow Up (ER follow up for chest pain) 07/29/2024 Travel 07/26/2024 9:00 AM FISHERIES MANAGER Home Care Visit [address] [phone] Meera Choi LPN SN HOME VISIT 07/24/2024 Home Care Visit [address] [address] Catie Zabala, PT CASE COMMUNICATION 07/23/2024 12:15 PM FISHERIES MANAGER Home Care Visit [address] [phone] Preeti Chang RN SN OASIS RESUMPTION OF CARE 07/23/2024 Scan [employer] INFO SRVCS Scanned, [facility] Image (SCAN) 07/23/2024 Plan of Care Documentation [address] [phone] 07/22/2024 9:30 AM FISHERIES MANAGER Home Care Visit [address] [phone] Makenzie Cheema RN SN NON ADMIT LETTY 07/19/2024 10:15 AM FISHERIES MANAGER Home Care Visit [address] [phone] Nereida London RN SN OASIS TRANSFER W/OUT DC 07/18/2024 Scan [facility] SRVCS Scanned, [facility] Image (SCAN) 07/17/2024 Scan [facility] SRVCS Scanned, [facility] Image (SCAN) 07/15/2024 9:00 AM FISHERIES MANAGER Home Care Visit [address] [place] [address] [place] [address] Maida Bello, DIRECTOR OF MATERIALS MANAGEMENT DIRECTOR OF MATERIALS MANAGEMENT HOME VISIT 07/13/2024 Scan [facility] INFO SRVCS Scanned, [facility] Image (SCAN) 07/11/2024 11:15 AM FISHERIES MANAGER Home Care Visit [address] [place] [address] [place] [address] Maida Bello, DIRECTOR OF MATERIALS MANAGEMENT DIRECTOR OF MATERIALS MANAGEMENT HOME VISIT 07/09/2024 12:00 PM FISHERIES MANAGER Home Care Visit [address] [address] Juliana Mcgrath RN SN HOME VISIT 07/05/2024 11:30 AM FISHERIES MANAGER Home Care Visit [address] [place] [address] Anna Viera, RN SN HOME VISIT 07/04/2024 12:30 PM FISHERIES MANAGER Home Care Visit [address] [place], [place] [phone] Yuridia Sofia, OT OT INITIAL EVALUATION 07/04/2024 Scan [facility]VCS Scanned, [facility] 07/04/2024 Telephone [facility] Family and Sports Medicine - [place] [address] [place] [phone] Donavon Connor MD Advice 07/03/2024 3:00 PM FISHERIES MANAGER Home Care Visit [address] [place], [place] [phone] Devin Dean, PT PT INITIAL EVALUATION 07/03/2024 10:20 AM FISHERIES MANAGER Office Visit [facility] - [place] [address] [place] [phone] Donavon Connor MD TCM (Was admitted to [facility] for heart attack and was readmitted due to the Flu,Home health called to reconcile pt med list. States pt BP has been running low, has pitting edema in both legs refusing to use spirometer. States he may need a repeat BMP.///) 07/03/2024 Travel 07/02/2024 11:30 AM FISHERIES MANAGER Home Care Visit [facility] Home Care [address] [place], [place] [phone] Anna Viera RN SN OASIS START OF CARE 07/02/2024 Scan [facility] Care [address] [place], [place] [phone] Donavon Connor MD 07/02/2024 Plan of Care Documentation [facility] Care [address] [place], [place] [phone] 07/01/2024 Scan [facility]VCS Scanned, [facility] 07/01/2024 Scan [facility] Home Care [address] [place], [place] [phone] Scanned, [facility] 07/01/2024 Telephone [facility] Care [address] [place], [place] [phone] Donavon Connor MD Advise 06/27/2024 Scan [facility] INFO SRVCS Scanned, [facility] Image (SCAN) 06/26/2024 Scan [facility] INFO [facility]VCS Scanned, [facility] Ultrasound (SCAN); CT (SCAN); Payable Processor Report (SCAN)* 06/26/2024 Telephone [facility] - [place] [address] [place] [address] Donavon Connor MD Advice 06/24/2024 Scan [facility] INFO SRVCS Scanned, [facility] Echo (SCAN) 06/24/2024 Telephone [facility] - [place] [address] [facility] [place] [address] Donavon Connor MD Refill Request 06/22/2024 Scan [facility]VCS Scanned, [facility] 06/22/2024 Scan [facility] INFO [facility]VCS Scanned, [facility] Image (SCAN) 05/15/2024 9:00 AM FISHERIES MANAGER Home Care Visit [address] [place] [address] [place] [address] Catie Zabala, PT PT OASIS DISCHARGE 05/14/2024 Telephone [facility] Medical [facility] Family and Sports Medicine [address] [phone] Donavon Connor MD Refill Request 05/12/2024 Home Care Visit [address] [place], [place] [phone] Catie Zabala, PT [facility] 05/08/2024 1:45 PM FISHERIES MANAGER Home Care Visit [address] [place], [place] [phone] Loki Mart, DIRECTOR OF MATERIALS MANAGEMENT DIRECTOR OF MATERIALS MANAGEMENT HOME VISIT from Last 3 Months Immunizations Name Administration [...] materials from doctor or pharmacy Often 07/23/2024 [facility] Utilities Answer Date Recorded In the [...] than three times a week 12/30/2022 Attends [facility] [facility] Not on file 12/30 Do you belong to any clubs o r organizations such as episcopal groups, unions, fraternal or athletic groups, or [...] Date Recorded Patient Health Questionnaire-2 Score 0 07/29/2024 Exercise Vital Sign Answer Date Recorde d [...] place to sleep or slept in a jail (including now)? No 06/24/2023 Housing Stability Vital [...] time in the past 12 m [facility], were you homeless or living in a jail (including now)? No 04/10/2024 Sex and Gender Information Value Date Recorded Sex Assigned at Male 04/09/2024 9:16 PM FISHERIES MANAGER Legal Sex Male 8:36 PM CDT Gender Identity Male 04/09/2024 9:16 PM FISHERIES MANAGER Sexual Orientation Straight 04/09/2024 9: 16 PM FISHERIES MANAGER Last Filed Vital Signs Vital Sign Reading Time Taken Comments Blood Pressure 136/62 08/02/2024 12:43 PM FISHERIES MANAGER Pulse 72 08/02/2024 12:43 PM FISHERIES MANAGER Temperature 36.9 C (98.4 F) 07/30/2024 10:27 AM FISHERIES MANAGER Respiratory Rate 18 08/02/2024 12:43 PM FISHERIES MANAGER Oxygen Saturation 96% 08/02/2024 12:43 PM FISHERIES MANAGER Inhaled Oxygen Concentration - - Weight 67.6 kg (149 lb) 07/29/2024 8:53 AM FISHERIES MANAGER Height 162.6 cm (5' 4 ) 07/29/2024 8:53 AM FISHERIES MANAGER Body Mass Index 25.58 07/29/2024 8:53 AM FISHERIES MANAGER Plan of Treatment Upcoming Encounters Date Type Department Care Team (Late st Contact Info) Description 08/05/2024 3:30 PM CDT Appointment [address] [place] [address] [place] [address] Catie Zabala, PT [address] [place], [place] [phone] 01/06/2025 11:00 AM CDT Office Visit [facility] Medical Group Multispecialty Care - [facility] [address] [facility], [address] [place] [phone] Lai Anderson MD [address] [place] [address] Health Maintenance Due Date Last Done Comments Kidney Health Evaluation 1950 Pneumococcal Vaccine: 65+ Years (1 of 2 - PCV) 02/02/1954 DTaP, Tdap and Td Vaccines (1 - Tdap) 02/02/1967 Hemoglobin A1C 08/30/2024 03/01/2024, 05/30, 12/30/2022, Additional history exists Lipid Panel 03/01/2025 03/01/2024, 08/0 08/2022, 12/30/2022, Additional history exists Influenza Adult (#1) 2025 Postpon ed from 02/27/2024 (Patient Refused) COVID-19 Vaccine ( season) 2025 11/13/2020, 10/22/2020 Postponed from 01/28/2024 (Patient Refused) RSV Immunization or 60+ Years (1 - 1-dose 75+ series) 07/29/2025 Postponed from 02/02/2023 (Going to Outside Clinic) Zoster Vaccines (1 of 2) 07/29/2025 Pos tponed from 02/02/1998 (Going to Outside Clinic) Diabetes: Retinopathy Eye Exam 04/15/2026 04/15/2024 Hepatitis C 06/08/2053 Postponed from 02/02/1966 (Patient Refused) Colorectal Cancer Screening Colonoscopy (10 Years) Discontinued 04/13/2024 PHQ-2 (Physician [place]) Completed 07/29/2024 Meningococcal B Vaccine Aged Out No l [...] Alvarez, RN Medical Devices Implanted Type Area Campground Hand Device Identifier Shelf Expiration Date Model / Serial / Lot Mesh Bard Marlex 3 X 6 [id number] - [id number] Implanted:Qty : 1 on 12/28/2021 by Abundio Valverde MD at [facility] Mesh Right: Abdomen [employer] [id number] 04/25/2026 [id number] / / [id number] Procedures Procedure Name Priority Date/Time Associated Diagnosis Comments IMAGE GENERIC 07/23/2024 IMAGE GENERIC 07/18/2024 IMAGE GENERIC 07/17/2024 IMAGE GENERIC 07/13/2024 IMAGE GENERIC 06/27/2024 [employer] 06/26/2024 CT GENERIC 06/26/2024 CT GENERIC 06/26/2024 ULTRASOUND GENERIC (SCAN ORDER) 06/26/2024 ECHO GENERIC (SCAN ORDER) 06/24/2024 IMAGE GENERIC Routine 06/22/2024 DIABETIC RETINOPATHY EXAM (NEGATIVE)(SCAN ORDER) Routine 04/15/2024 LIPID PANEL Routine 03/01/2024 9:46 AM CDT Primary hypertension Mixed hyperlipidemia Type 2 diabetes mellitus without complication, with long-term current use of insulin ([facility]) HEMOGLOBIN, GLYCOSYLATED Routine 03/01/2024 9:46 AM CDT Primary hypertension Mixed hyperlipidemia Type 2 diabetes mellitus without complication, with long-term current use of insulin ([facility]) from Last 3 Months or Most Recently Relevant to Health Maintenance Results * IMAGE GENERIC (07/23/2024) Only the most recent of6 resultswithin the time period is included. Anatomical Region Laterality Modality Other 07/23/2024 [facility] Scanned SCANNING Final Resu lt * CT GENERIC (06/26/2024) Only the most recent of2 resultswithin the time period is included. Anatomical Region Laterality Modality Other 06/26/2024 Result [facility] Scanned SCANNING Final Resu lt * MAIN[employer] (06/26/2024) Anatomical Region Laterality Modality Other 06/26/2024 Result [facility] Scanned SCANNING Final Resu lt * ULTRASOUND GENERIC (SCAN ORDER) (06/26/2024) Anatomical Region Laterality Modality Other 06/26/2024 [facility] Scanned SCANNING Final Resu lt * ECHO GENERIC (SCAN ORDER) (06/24/2024) Anatomical Region Laterality Modality Other 06/24/2024 Result [facility] Scanned SCANNING Final Resu lt * DIABETIC RETINOPATHY EXAM (NEGATIVE) (04/15/2024) us [facility] Scanned SCANNING Final Resu lt [facility] * (ABNORMAL) HEMOGLOBIN, GLYCOSYLATED (03/01/2024 9:46 AM CDT) HGB A1C 8.3(H) <5.7 % 03/01/2024 12:43 PM CDT [facility] Comment: ADA GUIDELINES 2010 5.7 TO 6.4% INCREASED RISK OF DIABETES > OR = 6.5% CONSISTENT WITH DIABETES ESTIMATED AVG GLUCOSE 192 mg/dL 03/01/2024 12:43 PM CDT [facility] 03/01/2024 9:46 AM CDT Donavon Connor MD LABORATORY Final Result Performing Organization Address City/[facility]/ZIP Co de Phone Number [facility] [address] [place] [id number], [place] [phone] * (ABNORMAL) LIPID PANEL (03/01/2024 9:46 AM CDT) CHOLESTEROL 216(H) <200 MG/DL 03/01/2024 3:31 PM CDT [facility] TRIGLYCERIDES 345(H) <150 MG/DL 03/01/2024 3:31 PM CDT [facility] HDL 31(L) >40.0 MG/DL 03/04/2024 3:44 PM CDT [facility] LDL (CALCULATED) 116(H) <100 MG/DL 03/04/2024 3:44 PM CDT [facility] NON HDL CHOLESTEROL 185(H) <130 MG/DL 03/04/2024 3:44 PM CDT [facility] CHOL/HDL RATIO 7.0(H) 0.0 - 4.5 03/04/2024 3:44 PM CDT [facility] VLDL CALCULATION 69(H) 5 - 55 MG/DL 03/01/2024 3:31 PM CDT [facility] LIPID INTERPRETATION 03/01/2024 3:31 PM CDT [facility] Comment: NIH CONCENSUS REPORT RECOMMENDATIONS: ADULT CHILD LOW RISK: CHOLESTEROL <200 <170 TRIGLYCERIDE <150 --- HDL >=60 --- LDL <100 <110 BORDERLINE: CHOLESTEROL 200-239 170-199 TRIGLYCERIDE 150-199 --- HDL 40-59 --- LDL 100-159 110-129 HIGH RISK: CHOLESTEROL >=240 >=200 TRIGLYCERIDE >=200 --- HDL <40 --- LDL >=160 >=130 03/01/2024 9:46 AM CDT Donavon Connor MD LABORATORY Final Result [facility] [address] [place] [address], from Last 3 Months or Most Recently Relevant to Health Maintenance Additional Health Concerns 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
--- OUTSIDE RECORDS SUMMARY | 2024-08-05 09:49 | XMS_ITS | Patient Health Summary ---
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 Culture No growth day 5 CANDACE 04/23/2020 2:01 PM BOTTOM SANDER [facility] MICROBIOLOGY Blood PERIPHERAL BLOOD / Unknown Lab Venipuncture / Unknown 04/18/2020 11:22 AM BOTTOM SANDER 04/18/2020 11:36 AM BOTTOM SANDER Chad Rocha MD LAB - MICROBIOLOGY O RDERABLES [facility] MICROBIOLOGY [address] [place] [address], [facility] [phone] * (ABNORMAL) HEMOGLOBIN A1C (04/18/2020 11:09 AM BOTTOM SANDER) Only the most recent of2 resultswithin the time period is included. Hemoglobin A1c 7.6(H) 4.4 - 6.3 % 04/19/2020 9:00 AM [facility] Estimated Average Glucose 171 mg/dL 04/19/2020 9:00 AM [facility] Comment: HbA1c Interpretation: Treatment target values recommended by ADA and other clinical organizations should be used to evaluate metabolic control in patients. Treatment Target Values: Normal : < 5.7% Pre-diabetes: 5.7-6.4% Diabetes: Equal to or greater than 6.5% Reference: [place] [employer] Standards of Care in Diabetes -2014 In patients 70 years and older consider HbA1c target range of 7.0-7.5% Reference: Diabetes Mellitus in Older People: Position Statement on behalf of the International Association of Gerontology and Geriatrics (IAGG), the Diabetes Working Democrat for Older People (EDWPOP), and the International Task Force of Experts in Diabetes. Ritesh Srinivasan et al. J [place] [employer]. 2012 Test results diagnostic of diabetes should be repeated for confirmation. The Sebia Capillary 2 assay for the measurement of HbA1c is a National Glycohemoglobin Standardization Program (NGSP)certified method. Blood BLOOD SPECIMEN / Unknown Lab Venipuncture / Unknown 04/18/2020 11:09 AM BOTTOM SANDER 04/18/2020 11:40 AM BOTTOM SANDER Narrative [facility] - 04/19/2020 9:00 AM BOTTOM SANDER note^note Zhane Granger MD LAB - CHEMISTRY OR DERABLES Performing Organization Address City/[facility]/ZIP Co de Phone Number [address] [address], [facility] [phone] * FOLATE (04/18/2020 11:09 AM BOTTOM SANDER) Folate 10.4 7.0 - 31.4 ng/mL 04/18/2020 12:39 PM BOTTOM SANDER [facility] Blood BLOOD SPECIMEN / Unknown Lab Venipuncture / Unknown 04/18/2020 11:09 AM BOTTOM SANDER 04/18/2020 11:40 AM BOTTOM SANDER Zhane Granger MD LAB - CHEMISTRY OR DERABLES Performing Organization Address City/[facility]/ZIP Co de Phone Number [address] [address], [place] [phone] * VITAMIN B12 (04/18/2020 11:09 AM BOTTOM SANDER) Only the most recent of2 resultswithin the time period is included. Vitamin B12 239 213 - 816 pg/mL 04/18/2020 12:39 PM BOTTOM SANDER [facility] Blood BLOOD SPECIMEN / Unknown Lab Venipuncture / Unknown 04/18/2020 11:09 AM BOTTOM SANDER 04/18/2020 11:40 AM BOTTOM SANDER Zhane Granger MD LAB - CHEMISTRY OR DERABLES Performing Organization Address City/[facility]/ZIP Co de Phone Number [address] [phone] [phone] * XR CHEST 1VW PORTABLE (04/18/2020 5:50 AM BOTTOM SANDER) Only the most recent of18 resultswithin the time period is included. Anatomical Region Laterality Modality Chest Radiographic Tavon ging 04/18/2020 10:3 0 AM BOTTOM SANDER Impressions 04/19/2020 12:14 PM BOTTOM SANDER FINDINGS/IMPRESSION: There is redemonstrated internal fixation of multiple right rib fractures. The lungs are hypoinflated with bronchovascular crowding. There is no focal consolidation, pleural effusion, or pneumothorax. The cardiomediastinal silhouette is normal. Displaced fractures of the left clavicle and multiple left ribs are grossly unchanged in osseous alignment. Dictated by Lobito Han MD (resident physician in radiology). Dr. CHRISTINA Bahena have personally reviewed and interpreted this examination/study. This report was electronically signed by CHRISTINA HERNANDEZ on 04/19/2020 12:14 PM . Narrative 04/19/2020 12:14 PM BOTTOM SANDER EXAMINATION: XR CHEST 1VW PORTABLE HISTORY: [id number]: [...] osseous alignment. Dictated by Lobito Han MD (resident physician in radiology). Dr. CHRISTINA Bahena have personally reviewed and interpreted this examination/study. This report was electronically signed by CHRISTINA HERNANDEZ on 04/19/2020 12:14 PM . Chad Rocha MD DIAGNOSTIC IMAGING O RDERABLES * (ABNORMAL) URINALYSIS W/MICROSCOPIC NO CULTURE (04/18/2020 5:46 AM BOTTOM SANDER) Only the most recent of4 resultswithin the time period is included. Color UA Straw Straw, Yellow, Colorless 04/18/2020 6:23 AM [facility] Clarity UA Clear Clear, Slt Cloudy 04/18/2020 6:23 AM [facility] Specific [place] UA 1.008 1.005 - 1.030 04/18/2020 6:23 AM [facility] pH UA 7.0 5.0 - 8.0 pH 04/18/2020 6:23 AM [facility] Protein UA Negative Negative mg/dL 04/18/2020 6:23 AM [facility] Glucose UA 1+(A) Negative mg/dL 04/18/2020 6:23 AM [facility] Ketone UA Negative Negative mg/dL 04/18/2020 6:23 AM [facility] Bilirubin UA Negative Negative mg/dL 04/18/2020 6:23 AM [facility] Blood UA Negative Negative 04/18/2020 6:23 AM [facility] Nitrite UA Negative Negative 04/18/2020 6:23 AM [facility] Leukocyte Esterase Negative Negative 04/18/2020 6:23 AM [facility] Urobilinogen UA Negative Negative mg/dL 04/18/2020 6:23 AM [facility] RBC UA None Seen None Seen, 0-2, 3-5 /HPF 04/18/2020 6:23 AM [facility] WBC UA None Seen None Seen, 0-5 /HPF 04/18/2020 6:23 AM [facility] Squamous Epithelial Cells UA None Seen None Seen, 0-2 /HPF 04/18/2020 6:23 AM [facility] Urine URINE SPECIMEN OBTAINED BY CLEAN CATCH PROCEDURE / Unknown Collection / Unknown 04/18/2020 5:46 AM BOTTOM SANDER 04/18/2020 6:03 AM [facility] - 04/18/2020 6:23 AM BOTTOM SANDER note^note Chad Rocha MD LAB - URINALYSIS ORD ERABLES Performing Organization Address [facility]/ZIP Co de Phone Number [address] [address], [facility] [phone] * PTT [facility] (04/17/2020 11:38 PM BOTTOM SANDER) Only the most recent of19 resultswithin the time period is included. APTT 26.4 23.0 - 38.4 Seconds 04/18/2020 12:07 AM [facility] Comment:Suggested therapeuti c range for full dose I.V. unfractionated heparin therapy for venous thromboembolism is 71 to 109 seconds. Blood BLOOD SPECIMEN / Unknown Lab Venipuncture / Unknown 04/17/2020 11:38 PM BOTTOM SANDER 04/17/2020 11:59 PM [facility] - 04/18/2020 12:07 AM BOTTOM SANDER note^note Chad Rocha MD LAB - COAGULATION OR DERABLES Performing Organization Address [facility]/[place]UST Co de Phone Number [address] [address], [facility] [phone] * PT-INR [facility] (04/17/2020 11:38 PM BOTTOM SANDER) Only the most recent of8 resultswithin the time period is included. PT 12.8 12.1 - 14.8 Seconds 04/18/2020 12:06 AM [facility] INR 1.0 See Comment 04/18/2020 12:06 AM [facility] Comment:The suggested therap eutic range for standard coumadin (warfarin) therapy is an INR of 2.0-3.0. For high-risk patients (Mechanical Mitral Valve Prosthesis, etc.), the suggested prophylactic therapeutic range is an INR of 2.5-3.5. Blood BLOOD SPECIMEN / Unknown Lab Venipuncture / Unknown 04/17/2020 11:38 PM BOTTOM SANDER 04/17/2020 11:59 PM [facility] - 04/18/2020 12:06 AM BOTTOM SANDER note^note Chad Rocha MD LAB - COAGULATION OR DERABLES Performing Organization Address City/[facility]/ZIP Co de Phone Number [address] [address], [place] [phone] * TROPONIN I (04/17/2020 11:38 PM BOTTOM SANDER) Only the most recent of3 resultswithin the time period is included. Troponin I <0.010 <0.032 ng/mL 04/18/2020 12:26 AM BOTTOM SANDER [facility] Blood BLOOD SPECIMEN / Unknown Lab Venipuncture / Unknown 04/17/2020 11:38 PM BOTTOM SANDER 04/17/2020 6:15 PM BOTTOM SANDER Chad Rocha MD LAB - CHEMISTRY KATHY CAMPA Performing Organization Address City/[facility]/[place] Co de Phone Number [address] [address], [facility] [phone] * LACTIC ACID BLOOD (04/17/2020 11:38 PM BOTTOM SANDER) Only the most recent of2 resultswithin the time period is included. Pathologist [facility] Lactic Acid-Stat 1.9 0.5 - 2.2 mmol/L 04/18/2020 12:18 AM BOTTOM SANDER [facility] Blood BLOOD SPECIMEN / Unknown Lab Venipuncture / Unknown 04/17/2020 11:38 PM BOTTOM SANDER 04/17/2020 6:15 PM BOTTOM SANDER Chad Rocha MD LAB - CHEMISTRY KATHY CAMPA [address] [address], [place] [phone] * (ABNORMAL) C DIFFICILE GD AG + TOXIN A+B (03/21/2020 12:42 PM CDT) Interpretation C difficile Indeterm inate(A) Negative for toxigenic C. difficile 03/21/2020 8:57 PM CDT [facility] MICRO[facility] Stool STOOL SPECIMEN / Unknown Collection / Unknown 03/21/2020 12:42 PM CDT 03/21/2020 12:55 PM CDT Narrative [facility] MICROBIOLOGY - 03/21/2020 8:57 PM CDT Indeterminate results reflex to a C. difficile by PCR test. See separate report. Maycol Matthews MD LAB - MICROBIOLOGY O PEMA Performing Organization Address City/[facility]/ZIP Co de Phone Number [facility] MICROBIOLOGY [address] [place] [address], [facility] [phone] * (ABNORMAL) C DIFFICILE BY PCR (03/21/2020 12:42 PM CDT) C difficile Toxin B Gene Detected( A) Not detected, Invalid 03/22/2020 6:19 PM CDT [facility] MICROBIOLOGY Stool STOOL SPECIMEN / Unknown Collection / Unknown 03/21/2020 12:42 PM CDT 03/21/2020 12:55 PM CDT Maycol Matthews MD LAB - MICROBIOLOGY O PEMA Performing Organization Address [facility]/ZIP Co de Phone Number [facility] MICROBIOLOGY [address] [place] [address], [facility] [phone] * CT ABDOMEN PELVIS WO CONTRAST (03/19/2020 [...] changed. Report dictated by Nicolás Kingston MD (resident physician in radiology). I, Dr. KAYLENE CAO M.D. have [...] changed. Report dictated by Nicolás Kingston MD (resident physician in radiology). Dr. KAYLENE Bahena M.D. have personally [...] Not Established mmol/L 03/16/2020 12:[address] [facility] Urine URINE SPECIMEN OBTAINED BY CLEAN CATCH PROCEDURE / Unknown Collection / Unknown 03/16/2020 11:35 AM CDT 03/16/2020 11:46 AM CDT Maycol Matthews MD LAB - URINE CHEMISTR Y ORDERABLES [address] [address], [facility] [phone] * UREA NITROGEN URINE RANDOM (03/16/2020 11:35 AM CDT) Urea Nitrogen Random Urine 396 Not Established mg/dL 03/16/2020 12:02 PM CDT [facility] Urine URINE SPECIMEN OBTAINED BY CLEAN CATCH PROCEDURE / Unknown Collection / Unknown 03/16/2020 11:35 AM CDT 03/16/2020 11:46 AM CDT Maycol Matthews MD LAB - URINE CHEMISTR Y ORDERABLES Performing Organization Address [facility]/ZIP Co de Phone Number [address] [address], [place] [phone] * CREATININE URINE RANDOM (03/16/2020 11:35 AM CDT) Creatinine Urine 60 Not Established mg/dL 03/16/2020 12:02 PM CDT [facility] Comment:Result obtained by magui tellez. Urine URINE SPECIMEN OBTAINED BY CLEAN CATCH PROCEDURE / Unknown Collection / Unknown 03/16/2020 11:35 AM CDT 03/16/2020 11:46 AM CDT Maycol Matthews MD LAB - URINE CHEMISTR Y ORDERABLES Performing Organization Address [facility]/[place] Co de Phone Number [address] [address], [place] [phone] * CULTURE URINE (03/15/2020 4:57 PM CDT) Only the most recent of4 resultswithin the time period is included. Culture Urine No growth (<100 CFU/mL) CANDACE 03/17/2020 1:20 AM CDT [facility]CRO[facility] Urine URINE SPECIMEN OBTAINED VIA INDWELLING URINARY CATHETER / Unknown Collection / Unknown 03/15/2020 4:57 PM CDT 03/15/2020 6:02 PM CDT Geoffrey Rogers MD LAB - MICROBIOLOGY O RDERABLES Performing Organization Address City/[facility]/ZIP Co de Phone Number [facility] [address] [place] [address], [facility] [phone] * (ABNORMAL) URINALYSIS REFLEX TO MICROSCOPIC NO CULTURE (03/15/2020 1:28 PM CDT) Color UA Deana(A) Straw, Yellow, Colorless 03/15/2020 2:11 PM [facility] Clarity UA Turbid(A) Clear, Slt Cloudy 03/15/2020 2:11 PM [facility] Specific [place] UA 1.023 1.005 - 1.030 03/15/2020 2:11 PM [facility] pH UA 5.0 5.0 - 8.0 pH 03/15/2020 2:11 PM [facility] Protein UA 2+(A) Negative mg/dL 03/15/2020 2:11 PM [facility] Glucose UA Negative Negative mg/dL 03/15/2020 2:11 PM [facility] Ketone UA Trace(A) Negative mg/dL 03/15/2020 2:11 PM [facility] Bilirubin UA Negative Negative mg/dL 03/15/2020 2:11 PM [facility] Blood UA 3+(A) Negative 03/15/2020 2:11 PM [facility] Nitrite UA Negative Negative 03/15/2020 2:11 PM [facility] Leukocyte Esterase 3+(A) Negative 03/15/2020 2:11 PM [facility] Urobilinogen UA Negative Negative mg/dL 03/15/2020 2:11 PM [facility] RBC UA >100(A) None Seen, 0-2, 3-5 /HPF 03/15/2020 2:11 PM [facility] WBC UA >100(A) None Seen, 0-5 /HPF 03/15/2020 2:11 PM [facility] WBC Clumps Many(A) None /HPF 03/15/2020 2:11 PM [facility] Bacteria UA 1+(A) None, Trace /HPF 03/15/2020 2:11 PM [facility] Squamous Epithelial Cells UA None Seen None Seen, 0-2 /HPF 03/15/2020 2:11 PM [facility] Mucus UA 1+ None, 1+ /LPF 03/15/2020 2:11 PM CDT [facility] Amorphous Crystals Many(A) Rare, Occasional, Few, Moderate, None /HPF 03/15/2020 2:11 PM CDT [facility] Urine URINE SPECIMEN OBTAINED VIA INDWELLING URINARY CATHETER / Unknown Collection / Unknown 03/15/2020 1:28 PM CDT 03/15/2020 1:34 PM CDT Narrative [facility] - 03/15/2020 2:11 PM CDT Geoffrey Rogers MD LAB - URINALYSIS ORD ERABLES [address] [address], [facility] [phone] * HIV-1 HIV-2 ANTIGEN/ANTIBODY (03/03/2020 5:25 AM CDT) HIV Antigen/Antibod y 1 & 2 Non-reacti ve Non-react tristan 03/03/2020 2:42 PM CDT [facility] Comment:Neither HIV-1 p24 An tigen nor HIV-1/HIV-2 Antibodies are detected. Blood BLOOD SPECIMEN / Unknown Lab Venipuncture / Unknown 03/03/2020 5:25 AM CDT 03/03/2020 2:10 PM CDT Geoffrey Rogers MD LAB - HEMATOLOGY ORD ERABLES Performing Organization Address City/[facility]/ZIP Co de Phone Number [address] [address], [facility] [phone] * VANCOMYCIN LEVEL RANDOM (03/03/2020 5:25 AM CDT) Only the most recent of4 resultswithin the time period is included. Vancomycin Random 17.9 Therapeutic Ranges not established for random specimens mcg/mL 03/03/2020 6:23 AM CDT [facility] Blood BLOOD SPECIMEN / Unknown Lab Venipuncture / Unknown 03/03/2020 5:25 AM CDT 03/03/2020 5:52 AM CDT Christina Briseno DO LAB - CHEMISTRY ORDE KATHERYN Performing Organization Address [facility]/[place] Co de Phone Number [address] [address], [place] [phone] * (ABNORMAL) IRON BLOOD (03/02/2020 2:52 AM CDT) Iron 29(L) 50 - 175 mcg/dL 03/02/2020 3:45 AM CDT [facility] Blood BLOOD SPECIMEN / Unknown Venipuncture / Unknown 03/02/2020 2:52 AM CDT 03/02/2020 3:28 AM CDT Karyna Marshall DO LAB - CHEMISTRY ORDKaren CAMPA Performing Organization Address [facility]/[place] Co de Phone Number [address] [address], [place] [phone] * (ABNORMAL) FERRITIN (03/02/2020 2:52 AM CDT) Ferritin 443(H) 22 - 275 ng/mL 03/02/2020 4:03 AM CDT [facility] Blood BLOOD SPECIMEN / Unknown Venipuncture / Unknown 03/02/2020 2:52 AM CDT 03/02/2020 3:28 AM CDT Karyna Marshall DO LAB - CHEMISTRY KATHY CAMPA Performing Organization Address [facility]/[place] Co de Phone Number [address] [address], [place] [phone] * ETT LINE PERFORMABLE (02/28/2020 10:30 PM CDT) Narrative Amina Frank - 02/28/2020 10:30 PM CDT Amina Frank MD 02/28/2020 10:30 PM Endotracheal Tube Placement: Patient Location: OR. Procedure: intubation ([id number]). Procedure Section: Sedation: under general anesthesia. Indications [...] Event Date/Time: 02/26/2020 10:35 PM Procedure: intubation ([id number]). Procedure Section: Sedation: under general anesthesia. Indications [...] skin jarrod CANDACE 03/01/2020 1:28 PM CDT [facility] MICROBIOLOGY Gram Stain No polymorphonuclear cells(AA) 03/01/2020 1:28 PM CDT [facility] MICROBIOLOGY Gram Stain Moderate Gram-positive cocci(AA) 03/01/2020 1:28 PM CDT [facility] MICROBIOLOGY Gram Stain Moderate Gram-negative bacilli(AA) 03/01/2020 1:28 PM CDT [facility] MICROBIOLOGY Microbiology ENTIRE SACRAL VERTEBRAL COLUMN / Unknown Collection / Unknown 02/24/2020 12:16 PM CDT 02/24/2020 12:23 PM CDT Narrative [facility] MICROBIOLOGY - 03/01/2020 1:28 PM CDT 02/24/2020 9:24 PM Ysabel Ortega RN notified. Read back and acknowledged results. Organism seen on initial gram stain may be anaerobic or not viable for aerobic growth Pablito Kan MD LAB - MICROBIOLOGY O RDERABLES [facility] MICROBIOLOGY [address] [place] [address], [facility] [phone] * PREPARE (CROSSMATCH) RBC UNIT(S), 2 Units (02/24/2020 6:46 AM CDT) Only the most recent of5 resultswithin the time period is included. Unit Description AS1 LR PRBC [facility] Unit ABO B [facility] Unit POS [facility] Product Number R02 [facility] B LOOD [facility]ANK LAB Unit Donor # [id number] [facility] [id number] [facility] OD BANK LAB Blood Type Barcode 7300 [facility] Expiration Date S BLOOD BANK LAB Unit Description AS1 LR PRBC [facility] Unit ABO B [facility] Unit POS [facility] Product Number R02 [facility] B LOOD BANK LAB Unit Donor # [id number] [facility] B[facility] Unit Status released [facility] BLOO D BANK LAB Product Code [id number] [facility] BLO OD BANK LAB Blood Type Barcode 7300 [facility] B[facility] LAB Expiration Date S BLOOD BANK LAB Blood Bank BLOOD SPECIMEN / Unknown 02/24/2020 6:46 AM CDT 02/24/2020 7:02 AM CDT Adriana Funes HARDENING MACHINE OPERATOR HELPER-SURFACING MACHINE OPERATOR LAB - BLOOD BANK ORDERABLES [facility] [address] [place] [address], [place] [phone] * SARS-COV-2 (COVID-19) IN HOUSE (02/23/2020 9:49 PM CDT) Only the most recent of2 resultswithin the time period is included. COVID-19 PCR Not detected Not detected, Invalid 02/24/2020 7:49 PM CDT [facility] MICROBIOLOGY Microbiology SPECIMEN FROM NASOPHARYNGEAL STRUCTURE / Unknown Collection / Unknown 02/23/2020 9:49 PM CDT 02/23/2020 9:56 PM CDT Narrative [facility] MICROBIOLOGY - 02/24/2020 7:49 PM CDT This Real Time RT-PCR assay was developed and its performance characteristics determined by [facility]. This test has been [...] Violet Thorpe MD LAB - MICROBIOLOGY ORDERABLES [facility] MICROBIOLOGY [address] [place] [address] [phone] * CT CHEST PE W ABD PELVIS [...] the right. Dictated by Lobito Han MD (resident physician in radiology). I, Dr. Clay SHOEMAKER M.D. have [...] the right. Dictated by Lobito Han MD (resident physician in radiology). Dr. Clay Bahena M.D. have personally reviewed and interpretedthis examination/study. This report was electronically signed by Clay SHOEMAKER M.D. on 02/24/2020 10:45 AM . Violet Thorpe MD CT ORDERABLES * (ABNORMAL) BLOOD GASES JORDYN (02/23/2020 7:02 PM CDT) pH Mixed Venous 7.43(H) 7.30 - 7.40 02/23/2020 7:09 PM [facility] pCO2 Mixed Venous 43 40 - 46 mmHg 02/23/2020 7:09 PM [facility] pO2 Mixed Venous 41 35 - 42 mmHg 02/23/2020 7:09 PM [facility] HCO3 Mixed Venous 28.3(H) 22.0 - 26.0 mmol/L 02/23/2020 7:09 PM [facility] TCO2 Mixed Venous 29.6(H) 25.0 - 29.0 mmol/L 02/23/2020 7:09 PM [facility] Base Excess Venous 3.6(H) -2.0 - 2.0 mmol/L 02/23/2020 7:09 PM [facility] Hemoglobin Mixed Venous 8.6(L) 13.5 - 17.5 g/dL 02/23/2020 7:09 PM [facility] Oxyhemoglobin Mixed Venous 76.9 66.0 - 77.0 % 02/23/2020 7:09 PM [facility] Carboxyhemoglobin Venous 0.0 0.0 - 3.0 % 02/23/2020 7:09 PM [facility] Methemoglobin 0.7 0.0 - 2.0 % 02/23/2020 7:09 PM [facility] FI O2 Mixed Venous 21.0 % 2019 7:09 PM [facility] Blood BLOOD SPECIMEN / Unknown Venipuncture / Unknown 02/23/2020 7:02 PM CDT 02/23/2020 7:07 PM CDT Violet Thorpe MD LAB - BLOOD GASES ORDERABLES [address] [address], [facility] [phone] * XR SHOULDER LEFT 2VW OR MORE (02/13/2020 5:52 PM CDT) Anatomical Region Laterality Modality Upper Extremity Radiographic Tavon ging 02/13/2020 7:04 PM CDT Impressions 02/14/2020 10:35 AM CDT IMPRESSION: 1.Displaced fracture of the distal third of the left clavicle with lateral and inferior displacement of the distal fracture fragment. 2.Multiple left-sided rib fractures. Dictated by Vviien Guzman MD (resident physician in radiology). I, Dr. KERRY VIERA have personally [...] rib fractures. Dictated by Vivien Guzman MD (resident physician in radiology). Dr. KERRY Bahena have personally reviewed [...] more details.) Dictated by Jessica Ramirez MD (resident physician in radiology). This report was approved by Jessica [...] more details.) Dictated by Jessica Ramirez MD (resident physician in radiology). This report was approved by Jessica [...] more details.) Dictated by Jessica Ramirez MD (resident physician in radiology). This report was approved by Jessica [...] more details.) Dictated by Jessica Ramirez MD (resident physician in radiology). This report was approved by Jessica Ramirez on 02/11/2020 1:[address] JAH Bahena have personally reviewed and interpreted this examination/study. This report was electronically signed by JAH ARIZMENDI on02/11/2020 1:34 PM . Sakina Montesinos HARDENING MACHINE OPERATOR HELPER-SURFACING MACHINE OPERATOR MR ORDERABLES * MRI NECK SOFT TISSUE [...] more details.) Dictated by Jessica Ramirez MD (resident physician in radiology). This report was approved by Jessica [...] more details.) Dictated by Jessica Ramirez MD (resident physician in radiology). This report was approved by Jessica Ramirez on 02/11/2020 1:33 PM . I, Dr. JAH ARIZMENDI have personally reviewed and interpreted this examination/study. This report was electronically signed by JAH ARIZMENDI on02/11/2020 1:34 PM . Sakina Montesinos HARDENING MACHINE OPERATOR HELPER-SURFACING MACHINE OPERATOR MR ORDERABLES * FL SWALLOWING FUNCTION STUDY (02/10/2020 10:18 AM CDT) Anatomical Region Laterality Modality Chest Radiographic Tavon ging 02/10/2020 10:2 2 AM CDT Impressions 02/10/2020 10:36 AM CDT FINDINGS/IMPRESSION: Fluoroscopic assistance was provided for a procedure performed by Speech Therapy. Please see the separate report by Speech Therapy for further details. Fluoroscopy Time: 42 seconds. Dictated by Ivana Lomeli MD (resident physician in radiology). Dr. KERRY Bahena have personally reviewed [...] 42 seconds. Dictated by Ivana Lomeli MD (resident physician in radiology). Dr. KERRY Bahena have personally reviewed [...] 7.42 7.35 - 7.45 02/07/2020 3:07 AM [facility] pCO2 Arterial 36 35 - 45 mmHg 02/07/2020 3:07 AM [facility] pO2 Arterial 71 71 - 95 mmHg 02/07/2020 3:07 AM [facility] HCO3 Arterial 22.8 22.0 - 26.0 mmol/L 02/07/2020 3:07 AM [facility] TCO2 Arterial 23.9(L) 25.0 - 29.0 mmol/L 02/07/2020 3:07 AM [facility] Base Excess Arterial -1.3 -2.0 - 2.0 mmol/L 02/07/2020 3:07 AM CDT [facility] Hemoglobin Arterial 9.0(L) 13.5 - 17.5 g/dL 02/07/2020 3:07 AM CDT [facility] Oxyhemoglobin Arterial 93.3(L) 95.0 - 100.0 % 02/07/2020 3:07 AM CDT [facility] Carboxyhemoglobin 0.3 0.0 - 3.0 % 02/07/2020 3:07 AM CDT [facility] Methemoglobin 0.1 0.0 - 2.0 % 02/07/2020 3:07 AM CDT [facility] FI O2 Arterial 80.0 % 02/07/2020 3:07 AM CDT [facility] Blood, arterial ARTERIAL BLOOD SPECIMEN / Unknown Arterial Puncture / Unknown 02/07/2020 2:55 AM CDT 02/07/2020 3:04 AM CDT La Nena Blake MD LAB - BLOOD GASES ORDERABLES Performing Organization Address City/State/RUST Co de Phone Number [facility] [address] [place] [phone], [facility] [phone] * CT ANGIO BRAIN AND NECK (02/05/2020 [...] Blood 1.11 mmol/L 02/04/2020 5:[address] [facility] Adjusted Ionized Calcium 1.14(L) 1.19 - 1.34 mmol/L 02/04/2020 5:21 AM T [facility] pH Whole Blood 7.45 7.35 - 7.45 02/04/2020 5:21 AM [facility] Blood WHOLE BLOOD SPECIMEN / Unknown Lab Venipuncture / Unknown 02/04/2020 4:32 AM CDT 02/04/2020 5:18 AM CDT Ernesto Tinsley MD LAB - CHEMISTRY KATHY [facility] Organization Address City/State/ZIP Co de Phone Number [place] [id number] [place] [address], [facility] [phone] * CT ANGIO ABDOMEN PELVIS (01/31/2020 10:12 [...] evaluate the extent of pulmonary embolism. 3. Wbuni-qc-kmddfilj volume right and small volume left pleural [...] 11:32 PM. Dictated by Vincent Montalvo MD (resident physician in radiology). IDr. Clay M.D. have personally reviewed [...] evaluate the extent of pulmonary embolism. 3. Hcvov-rg-gjdcfngo volume right and small volume left pleural [...] 11:32 PM. Dictated by Vincent Montalvo MD (resident physician in radiology). Shruti, Dr. Clay SHOEMAKER M.D. have [...] evaluate the extent of pulmonary embolism. 3. Hyofd-vw-zckahdcv volume right and small volume left pleuraleffusions. [...] 11:32 PM. Dictated by Vincent Montalvo MD (resident physician in radiology). I, Dr. Clay SHOEMAKER M.D. have personally reviewed and interpretedthis examination/study. This report was electronically signed by Clay SHOEMAKER M.D. on 02/01/2020 10:42 AM . Ernesto Tinsley MD CT ORDERABLES * FL ELENITA SURGERY (01/31/2020 1:17 PM CDT) Narrative [facility] - 01/31/2020 1:18 PM CDT Fluoroscopy was used for this exam in the OR. Please see the Operative report. Dipesh Felix MD FLUOROSCOPY ORDERABL ES [facility] * XR PELVIS 3VW OR [...] normal. Report dictated by Jorge Abbott M.D. (resident physician in radiology). Dr. CHRISTINA Bahena have personally reviewed [...] normal. Report dictated by Jorge Abbott M.D. (resident physician in radiology). Dr. CHRISTINA Bahena have personally reviewed [...] Placement: Patient Location: OR Procedure: IV start (47776). Procedure Section: Skin Prep: alcohol. Orientation: left [...] Event Date/Time: 01/31/2020 11:03 AM Procedure: intubation (20672). Procedure Section: Sedation: under general anesthesia. Indications [...] above findings. Dictated by Dagoberto Hurtado MD (resident physician in radiology). I, Dr. ESTRELLITA SHAH have personally [...] above findings. Dictated by Dagoberto Hurtado MD (resident physician in radiology). I, Dr. ESTRELLITA SHAH have personally [...] above findings. Dictated by Dagoberto Hurtado MD (resident physician in radiology). I, Dr. ESTRELLITA SHAH have personally [...] above findings. Dictated by Dagoberto Hurtado MD (resident physician in radiology). I, Dr. ESTRELLITA SHAH have personally reviewed and interpreted this examination/study. This report was electronically signed by ESTRELLITA SHAH on 01/28/20204:01 PM . Anu Greene DO CT ORDERABLES * (ABNORMAL) POTASSIUM BLOOD (01/28/2020 12:05 PM CDT) Only the most recent of9 resultswithin the time period is included. Potassium 3.2(L) 3.5 - 4.5 mmol/L 01/28/2020 12:[address] [facility] Blood BLOOD SPECIMEN / Unknown Venipuncture / Unknown 01/28/2020 12:05 PM CDT 01/28/2020 12:17 PM CDT Anu Greene DO LAB - CHEMISTRY ORDERABLES [facility] [address] [place] [address], [facility] [phone] * TRANSFUSE RED BLOOD CELL LEUKOREDUCED UNIT(S) [...] procedure and other - comments (only speaks Tajik) Patient Sedated? Yes Sedation Type: mild Sedation [...] fracture. Report dictated by Jorge Abbott M.D. (resident physician in radiology). I, Dr. KERRY VIERA have personally [...] fracture. Report dictated by Jorge Abbott M.D. (resident physician in radiology). I, Dr. KERRY VIERA have personally reviewed and interpreted this examination/study. This report was electronically signed by KERRY VIERA on 01/27/2020 12:41 PM . Bobby Rizo MD DIAGNOSTIC IMAGING O RDERABLES * (ABNORMAL) DRUG SCREEN TOX URINE PANEL (01/26/2020 8:12 AM [facility]) [facility] Amphetamines Screen Urine Negative Negative : < 1000 ng/mL 01/26/2020 8:56 AM [facility] Barbiturates Screen Urine Negative Negative : < 200 ng/mL 01/26/2020 8:56 AM [facility] Benzodiazepine Screen Urine Negative Negative : < 200 ng/mL 01/26/2020 8:56 AM [facility] Opiates Urine Positive(A) Negative : < 300 ng/mL 01/26/2020 8:56 AM [facility] Comment:Positive urine opiat e screening results should be confirmed by another generally accepted non-immunological method such as gas chromatography or mass spectrometry. Cocaine Metabolites Urine Negative Negative : < 300 ng/mL 01/26/2020 8:56 AM [facility] Phencyclidine Screen Urine Negative Negative : < 25 ng/ml 01/26/2020 8:56 AM [facility] Cannabinoids Screen Urine Negative Negative : <50 ng/mL 01/26/2020 8:56 AM [facility] Methadone Screen Urine Negative Negative : < 300 ng/mL 01/26/2020 8:56 AM [facility] Fentanyl Screen Urine Negative Negative : <1.0 ng/mL 01/26/2020 8:56 AM CDT [facility] Urine URINE / Unknown Collection / Unknown 01/26/2020 8:12 AM CDT 01/26/2020 8:29 AM CDT Narrative [facility] - 01/26/2020 8:56 AM CDT The Urine Toxicology Screening Panel does not screen for Propoxyphene, Meprobamate, Carisoprodol, Trazodone, wxvm-sqd-nmbyrae medications and/or volatiles (Acetone, Isopropanol, Methanol or Ethylene Glycol). Ethanol, Salicylate, Acetaminophen, Tricyclic Antidepressants and several therapeutic drugs may be individually assayed in serum or plasma specimen. Toxicology testing by the [facility] is an aid to medical diagnosis and treatment of patients. No documented chain of custody was maintained. Results are intended to be used for clinical purposes only. Joshua Matute MD LAB - URINE CHEMISTR Y ORDERABLES Performing Organization Address City/State/RUST Co de Phone Number [address] [address], [facility] [phone] * FL UROGRAM RETROGRADE (01/25/2020 8:15 PM CDT) Anatomical Region Laterality Modality Abdomen Radiographic Tavon ging 01/25/2020 8:36 PM CDT Impressions 02/01/2020 4:02 PM CDT IMPRESSION: No evidence of injury to the penile or bulbar urethra. Dynamic images showed retrograde flow of contrast into the bladder with normal appearance of the membranous and prostatic urethra. Dictated by Vivien Guzman MD (resident physician in radiology). IDr. Clay M.D. have personally reviewed [...] prostatic urethra. Dictated by Vivien Guzman MD (resident physician in radiology). Dr. Clay Bahena M.D. have personally [...] of marrow edema associated with the reported [id number] fracture. There is associated severe compression of [...] PM CDT) ABO 01/25/2020 4:[address] [facility] Rh Type 01/25/2020 4:[address] [facility] Typem 01/25/2020 4:[address] [facility] Interpretation 01/25/2020 4:[address] [facility] Blood BLOOD SPECIMEN / Unknown Lab Venipuncture / Unknown 01/25/2020 2:20 PM CDT 01/25/2020 2:[address] [facility] - 01/25/2020 4:01 PM CDT Re-type confirmed per [facility] Blood Bank policies & procedures. Results documented in department. Shaggy James MD LAB - BLOOD BANK ORD ERABLES [facility] [address] [place] [address], [facility] [phone] * (ABNORMAL) TEG PLATELET MAPPING (01/25/2020 2:19 PM CDT) Interpretation TEG See Comment 01/25/2020 4:[address] [facility] React-Time 3.8(L) 5.0 - 10.0 MIN 01/25/2020 4:[address] [facility] K-Time 1.3 1.0 - 3.0 MIN 01/25/2020 4:[address] [facility] Angle A-BB 71.2 53.0 - 72.0 Degrees 01/25/2020 4:[address] [facility] MA (CK) BB 68.4 50.0 - 70.0 mm 01/25/2020 4:[address] [facility] LY30 0.0 0.0 - 8.0 % 01/25/2020 4:[address] [facility] CI-Coagulation Index 3.0 -3.0 - 3.0 01/25/2020 4:[address] [facility] MA-ADP 23.4 Reference Range: None mm 01/25/2020 4:[address] [facility] MA AA-BB 65.5 Reference Range: None mm 01/25/2020 4:[address] [facility] % ADP Inhibition 75.5 Reference Range:None % 01/25/2020 4:[address] [facility] G-Clot Strength 10.8 4.5 - 11.0 d/sc 01/25/2020 4:[address] [facility] % AA Inhibition 4.9 Reference Range: None % 01/25/2020 4:[address] [facility] Blood BLOOD SPECIMEN / Unknown Venipuncture / Unknown 01/25/2020 2:19 PM CDT 01/25/2020 2:[address] [facility] - 01/25/2020 4:10 [...] MD LAB - BLOOD BANK ORD ERABLES [facility] [address] [place] [address], [facility] [phone] * CT CHEST ABDOMEN PELVIS W CONT [...] compressive atelectasis. Dictated by Vivien Guzman MD (resident physician in radiology). I, Dr. MANFRED BOYD have personally [...] cervical spine at the C3-C4 through the C5-[id number] is present due to posterior disc abnormalities [...] compressive atelectasis. Dictated by Vivien Guzman MD (resident physician in radiology). I, Dr. MANFRED BOYD have personally [...] compressive atelectasis. Dictated by Vivien Guzman MD (resident physician in radiology). I, Dr. MANFRED BOYD have personally [...] cervical spine at the C3-C4 through the C5-[id number] is present due to posterior disc abnormalities [...] compressive atelectasis. Dictated by Vivien Guzman MD (resident physician in radiology). I, Dr. MANFRED BOYD have personally [...] compressive atelectasis. Dictated by Vivien Guzman MD (resident physician in radiology). I, Dr. MANFRED BOYD have personally [...] cervical spine at the C3-C4 through the C5-S7elixqd is present due to posterior disc abnormalities [...] compressive atelectasis. Dictated by Vivien Guzman MD (resident physician in radiology). I, Dr. MANFRED BOYD have personally [...] compressive atelectasis. Dictated by Vivien Guzman MD (resident physician in radiology). I, Dr. MANFRED BOYD have personally [...] cervical spine at the C3-C4 through the C5-I6cdycoc is present due to posterior disc abnormalities [...] compressive atelectasis. Dictated by Vivien Guzman MD (resident physician in radiology). I, Dr. MANFRED BOYD have personally [...] ramus. Report dictated by Vivien Guzman MD (resident physician in radiology). I, Dr. CHRISTINA HERNANDEZ have personally [...] ramus. Report dictated by Vivien Guzman MD (resident physician in radiology). I, Dr. CHRISTINA HERNANDEZ have personally reviewed and interpreted this examination/study. This report was electronically signed by CHRISTINA HERNANDEZ on 01/25/2020 3:24 PM . Joshua Matute MD DIAGNOSTIC IMAGING O RDERABLES * ALCOHOL ETHYL BLOOD (01/25/2020 1:38 PM CDT) Interpretation Ethanol None Detected None Detected mg/dL 01/25/2020 2:[address] [facility] Comment:Ethanol levels less than 10 mg/dL are resulted as None detected . Blood BLOOD SPECIMEN / Unknown Venipuncture / Unknown 01/25/2020 1:38 PM CDT 01/25/2020 2:08 PM CDT Joshua Matute MD LAB - CHEMISTRY KATHY CAMPA [facility] Organization Address City/State/ZIP Co de Phone Number [facility] [address] [place] [address], [facility] [phone] Care Teams Regulatory Affairs Strategy Specialist Relationship Specialty Start Date End Date Unknown, Provider PCP - General 08/30/23 Donavon Connor MD Family Medicine 08/30/23
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
--- OUTSIDE RECORDS SUMMARY | 2024-08-05 09:50 | XMS_ITS | Clinical Summary ---
Author Organization [facility] Address [address] [place] [address] Care Team Providers Care Bus Mechanic Name Role Phone Unavailable Primary Care Provider [...]
--- OUTSIDE RECORDS SUMMARY | 2024-08-05 09:50 | XMS_ITS | Referral Summary ---
Author Organization [facility] Address [address] [place] [address] Care Team Providers Care Flexo Folder Gluer Operator Name Role Phone No, Physician Primary Care Provider [phone] Bunny Ramires MD Unavailable [phone] Encounters Date Type Department Care Team Description 07/29/2024 Orders Only [facility] Medical Group Cardiology [address] [place] [address] [address] [place] [phone] Gerhard Ratliff MD 07/15/2024 Telephone [facility] Medical Group Cardiology [address] [place] [address] [place] [phone] Gina Link MD 07/08/2024 2:00 PM PROP SAWYER Office Visit [facility] Medical Group Cardiology [address] [place] [address] [address] [place] [phone] Gina Link MD Hypertension associated with diabetes (HCC) (Primary Dx); 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; Cardiomyopathy, ischemic 07/02/2024 Orders Only [facility] Medical Group Cardiology [address] [facility] [address] [place] [phone] Gerhard Ratliff MD 06/29/2024 Orders Only [facility] Health Information Management [address] [place] [id number] Allegra Shin MD 06/26/2024 Orders Only [facility] Medical Group Cardiology [address] [place] [address] Peyton De Guzman MD from [...] tablet (50 mg total) by mouth daily Active Active Problems Problem Noted Date Diagnosed Date Cardiomyopathy, ischemic 07/22/2024 Coronary artery disease involving zuni heart 0 07/15/2024 Constipation, unspecified constipation type 08/2022 Assessment & Plan (07/31/2022 11:22 AM PROP SAWYER): No symptoms or signs of mechanical obstruction. [...] 07/30/2022 Assessment & Plan (07/31/2022 11:21 AM PROP SAWYER): On metformin 500 mg twice daily at [...] 07/30/2022 Assessment & Plan (07/31/2022 10:46 AM PROP SAWYER): Not on any treatment at home. BP well controlled, CTM and add medications if needed Benign prostatic hyperplasia without lower urinary tract symptoms 07/30/2022 Assessment & Plan (07/31/2022 10:44 AM PROP SAWYER): Patient was recently started on Flomax and finasteride at OSH. Patients son reported patient was experiencing difficulty urinating - continue home meds and pcp follow up for further management Stage 3a chronic kidney disease 07/30/2022 Assessment & Plan (07/31/2022 10:48 AM PROP SAWYER): Creatinine is 1.48, up from the most [...] on file Legal Sex Male 5:44 AM PROP SAWYER Gender Identity Not on file Sexual Orientation Not on file Last Filed Vital Signs Vital Sign Reading Time Taken Comments Blood Pressure 116/60 07/08/2024 1:05 PM PROP SAWYER Pulse 88 07/08/2024 1:05 PM PROP SAWYER Temperature 36.5 C (97.7 F) 07/31/2022 8:00 AM PROP SAWYER Respiratory Rate 16 07/31/2022 7:55 AM PROP SAWYER Oxygen Saturation 99% 07/08/2024 1:05 PM PROP SAWYER Inhaled Oxygen Concentration - - Weight 67.9 kg (149 lb 9.6 oz) 07/08/2024 1:05 P M PROP SAWYER Height 162.6 cm (5' 4 ) 07/08/2024 1:05 PM PROP SAWYER Body Mass Index 25.68 07/08/2024 1:05 PM PROP SAWYER Plan of Treatment Not on file Procedures Procedure Name Priority Date/Time Associated Diagnosis Comments CARDIOLOGY DOCUMENT SCAN Routine 07/19/2024 3:34 PM PROP SAWYER CARDIOLOGY DOCUMENT SCAN Routine 07/18/2024 2:33 PM PROP SAWYER CARDIOLOGY DOCUMENT SCAN Routine 07/18/2024 2:12 PM PROP SAWYER CARDIOLOGY DOCUMENT SCAN Routine 07/01/2024 3:53 PM PROP SAWYER CARDIOLOGY DOCUMENT SCAN Routine 06/30/2024 3:49 PM PROP SAWYER CARDIOLOGY DOCUMENT SCAN Routine 06/29/2024 3:44 PM PROP SAWYER SCAN - RADIOLOGY/IMAGING 06/29/2024 CARDIOLOGY DOCUMENT SCAN Routine 06/28/2024 3:37 PM PROP SAWYER CARDIOLOGY DOCUMENT SCAN Routine 06/27/2024 3:32 PM PROP SAWYER CARDIOLOGY DOCUMENT SCAN Routine 06/26/2024 3:20 PM PROP SAWYER CARDIOLOGY DOCUMENT SCAN Routine 06/24/2024 3:16 PM PROP SAWYER CARDIOLOGY DOCUMENT SCAN Routine 06/23/2024 3:10 PM PROP SAWYER CARDIOLOGY DOCUMENT SCAN Routine 06/22/2024 3:04 PM PROP SAWYER CARDIOLOGY DOCUMENT SCAN Routine 06/22/2024 3:03 PM PROP SAWYER CARDIOLOGY DOCUMENT SCAN Routine 06/22/2024 3:00 PM PROP SAWYER EGFR Routine 07/31/2022 5:30 AM PROP SAWYER HEMOGLOBIN A1C Routine 07/30/2022 10:23 PM PROP SAWYER LIPID PANEL Routine 07/30/2022 10:23 PM PROP SAWYER from Last 3 Months or Most Recently Relevant to Health Maintenance Results * Cardiology Document Scan (07/19/2024 3:34 PM PROP SAWYER) Anatomical Region Laterality Modality Other Result David Shin MD CV CARDIAC SERVICES PRO CEDURES Final Result * Cardiology Document Scan (07/18/2024 2:33 PM PROP SAWYER) Anatomical Region Laterality Modality Other Result David Ratliff MD CV CARDIAC SERVICES PROCEDURES F inal Result * Cardiology Document Scan (07/18/2024 2:12 PM PROP SAWYER) Anatomical Region Laterality Modality Other Result David Ratliff MD CV CARDIAC SERVICES PROCEDURES F inal Result * Cardiology Document Scan (07/01/2024 3:53 PM PROP SAWYER) Anatomical Region Laterality Modality Other Result David Ratliff MD CV CARDIAC SERVICES PROCEDURES F inal Result * Cardiology Document Scan (06/30/2024 3:49 PM PROP SAWYER) Anatomical Region Laterality Modality Other Result David Shin MD CV CARDIAC SERVICES PRO CEDURES Final Result * Cardiology Document Scan (06/29/2024 3:44 PM PROP SAWYER) Anatomical Region Laterality Modality Other Result David Shin MD CV CARDIAC SERVICES PRO CEDURES Final Result * SCAN - RADIOLOGY/IMAGING (06/29/2024) Anatomical Region Laterality Modality Other Result David Shin MD Final R esult * Cardiology Document Scan (06/28/2024 3:37 PM PROP SAWYER) Anatomical Region Laterality Modality Other Result David Shin MD CV CARDIAC SERVICES PRO CEDURES Final Result * Cardiology Document Scan (06/27/2024 3:32 PM PROP SAWYER) Anatomical Region Laterality Modality Other us Gerhard Ratliff MD CV CARDIAC SERVICES PROCEDURES F inal Result * Cardiology Document Scan (06/26/2024 3:20 PM PROP SAWYER) Anatomical Region Laterality Modality Other Result David Shin MD CV CARDIAC SERVICES PRO CEDURES Final Result * Cardiology Document Scan (06/24/2024 3:16 PM PROP SAWYER) Anatomical Region Laterality Modality Other Result David Allegra Shin MD CV CARDIAC SERVICES PRO CEDURES Final Result * Cardiology Document Scan (06/23/2024 3:10 PM PROP SAWYER) Anatomical Region Laterality Modality Other Result David De Guzman MD CV CARDIAC SERVICES PROCEDU RES Final Result * Cardiology Document Scan (06/22/2024 3:04 PM PROP SAWYER) Anatomical Region Laterality Modality Other Result David De Guzman MD CV CARDIAC SERVICES PROCEDU RES Final Result * Cardiology Document Scan (06/22/2024 3:03 PM PROP SAWYER) Anatomical Region Laterality Modality Other Result aDvid De Guzman MD CV CARDIAC SERVICES PROCEDU RES Final Result * Cardiology Document Scan (06/22/2024 3:00 PM PROP SAWYER) Anatomical Region Laterality Modality Other Result David De Guzman MD CV CARDIAC SERVICES PROCEDU RES Final Result * (ABNORMAL) eGFR (07/31/2022 5:30 AM PROP SAWYER) eGFR 54(L) 90 - 130 mL/min/1. 73 m2 [facility] Comment: Interpretive Data Reference Interval Normal >/= [...] last reviewed 2021. Blood 07/31/2022 5:30 AM PROP SAWYER 07/31/2022 5:51 AM PROP SAWYER Lizabeth Strong MD LAB BLOOD ORDERABLES Fin al Result [facility] [place] [address] * (ABNORMAL) Hemoglobin A1c (07/30/2022 10:23 PM PROP SAWYER) Hgb A1C 10.7(H) 4.0 - 5.6 % [facility] Estimated Average Glucose 260 mg/dL [facility] Comment: The ADA recommends reporting an estimated Average Glucose (eAG) with all Hemoglobin A1c results using the equation derived from a study of 507 normal and diabetic adults. Minority populations were underrepresented and children were not included. (Diabetes Care 2020; 43(S1): S66-S76). The eAG is not equivalent to a fasting glucose. Blood 07/30/2022 10:2 3 PM PROP SAWYER 07/30/2022 10:39 PM PROP SAWYER us Lizabeth Strong MD LAB BLOOD ORDERABLES Fin al Result [facility] Department [place] [address] * (ABNORMAL) Lipid panel (07/30/2022 10:23 PM PROP SAWYER) Cholesterol 167 30 - 199 mg/dL [facility] Comment: Interpretive Data Ages [...] on 2018. Triglycerides 155(H) <=149 mg/dL [facility] Comment: Interpretive Data Ages [...] on 2018. HDL 43 >=40 mg/dL [facility] Comment: Interpretive Data Ages [...] on 2018. LDL, calculated 93 <=129 mg/dL [facility] Comment: Interpretive Data Ages < or = [...] revised on 2018. Non-HDL Cholesterol 124 mg/dL [facility] Comment: Interpretive Data Ages < or = [...] last revised on 2018. Chol/HDL ratio 4 [facility] Blood 07/30/2022 10:2 3 PM PROP SAWYER 07/30/2022 10:39 PM PROP SAWYER us Lizabeth Strong MD LAB BLOOD ORDERABLES Fin al Result [facility] Department [place] [address] from Last 3 Months or Most Recently Relevant to Health Maintenance Insurance [facility] Member Subscriber Plan / Payer (Ef fective 2020-Present) Name:Albaro Rodriguez Relation to Subscriber:Self Name:Albaro Rodriguez Payer ID:[id number] (NAIC) Type:MEDICAID RISK OTHER Address: [place] [id number] [facility] Advance Directives For more information, please contact: [phone] * Full Code (Latest Code Status on File) Date Activated Date Inactivated Comments 07/30/2022 9:33 PM 07/31/2022 6:01 PM Care Teams Flexo Folder Gluer Operator Relationship Specialty Start Date End Date No, Physician PCP - General 07/30/22 Bunny Ramires MD 07/30/22
[2024-08-05 09:54] LABS: Glucose Point of Care 193 mg/dl (65-105)
[2024-08-05 09:59] LABS: Hematocrit 37.8 % (42.0-52.0); Hemoglobin 11.8 g/dL (14.0-18.0); Mean Corpuscular HGB Conc 31.2 g/dl (32-36); Mean Corpuscular Volume 89.8 fl (80-100); Platelet Count Result 259 k/mm3 (150-375); Red Blood Count 4.21 M/mm3 (4.6-6.20); Red Cell Distribution Width 15.7 % (11.5-14.5)
[2024-08-05 10:00] LABS: Basophils Percent Auto 0.5 % (0.2-1.2); Eosinophils Absolute Auto 0.1 K/mm3 (0-0.3); Eosinophils Percent Auto 0.6 % (0-4.4); Immature Granulocyte Absolute 0.03 K/mm3 (0.00-0.031); Immature Granulocyte Percent A 0.4 % (0-0.5); Lymphocytes Absolute Auto 1.58 K/mm3 (0.9-3.2); Lymphocytes Percent Auto 19.7 % (18.3-44.2); Monocytes Absolute Auto 0.7 K/mm3 (0.1-0.6); Monocytes Percent Auto 8.6 % (2.6-8.5); Neutrophils Absolute Auto 5.7 K/mm3 (1.3-6.7); Neutrophils Percent Auto 70.2 % (45.5-73.1)
[2024-08-05 10:08] LABS: Alanine Aminotransferase 28 U/L (6-50); Albumin Level 3.9 g/dL (3.5-5.1); Alkaline Phosphatase 109 U/L (38-126); Anion Gap 8 mmol/L (4-12); Aspartate Amino Transferase 25 U/L (17-59); Blood Urea Nitrogen 14 mg/dL (9-20); Calcium 8.5 mg/dL (8.4-10.2); Carbon Dioxide 28 mmol/L (22-30); Chloride 98 mmol/L (98-107); Estimated CRCL calculation 50 ml/min; Estimated Glomerular Filt Rate > 60; Glucose 193 mg/dL (65-110); Potassium 3.8 mmol/L (3.4-5.0); Sodium 134 mmol/L (137-145)
[2024-08-05 10:18] LABS: Prothrombin Time 13.7 Seconds (11.1-14.7)
[2024-08-05 10:22] LABS: NT Pro B Type Natriuretic Pept 4340 pg/mL (19.9-100)
[2024-08-05 10:34] LABS: Troponin I 0.034 ng/mL (0.000-0.034)
[2024-08-05 10:36] LABS: Influenza A QL RT-PCR Negative (Negative); Influenza B QL RT-PCR Negative (Negative); RSV RNA, RT-PCR Negative (Negative); SARS-CoV-2 RNA PCR Negative (Negative)
--- OUTSIDE RECORDS SUMMARY | 2024-08-05 10:46 | XMS_ITS | Clinical Summary ---
Author Organization [facility] [employer] Address [address] [place] [address] Care Team Providers Care Nutrition Coordinator Name Role Phone Unknown, Provider Primary Care Provider Donavon Holguin MD Unavailable [phone] Source Comments [facility],non-owned Affiliates and Associated Physician Practices is amultiple site organization consisting of ambulatory clinics and hospital sitesin [place], [place], [place] and [place]. This disclosure is being madepursuant to the Care Everywhere program and may not contain all information available regarding this patient. Last updated 18.[facility] Allergies Active Allergy Reactions Criticality Noted [...] tablet 01/01/2023 Active Blood Glucose Monitoring Suppl (AirPlug Verio Flex System) w/Device KIT USE DIRECTED THREE TIMES DAILY 01/01/2023 Active erythromycin (Romycin) 5 MG/GM ophthalmic ointment 03/23/2023 Active Super Clean Jobsiteuch Ultra test strip USE TO TEST FOUR TIMES DAILY 03/27/2023 Active TRUEplus 5-Bevel Pen [place] 32G X 4 MM MISC USE TO INJECT INSULIN UP TO 5 TIMES DAILY 07/11/2023 Active TRUEplus Insulin Syringe 30G X 5/16 0.5 ML MISC USE DIRECTED EVERY DAY 01/01/2023 Active Lancets (JumiaTOUCH DELICA PLUS 33G EXTRA FINE LANCET) TEST [...] original. Could not [facility] [place] afford to provide a Home Health nurse [...] Follow up in: three months with PCP, Union Steward, Graphic Design Assistant, Circular Head Saw Operator, Established eye personal care attendant and Wiring Mechanic Last Assessment & Plan: Not on [...] Follow up in: three months with PCP, Union Steward, Graphic Design Assistant, Circular Head Saw Operator, Established eye personal care attendant and Wiring Mechanic Infected wound 04/12/2020 Sacral wound 02/19/2020 [...] Office Visit [facility] - Ophthalmology [address] [place] [address] [phone] Health Maintenance Due Date Last Done Comments [...] this topic Medical Devices Implanted Type Area Fleet Salesperson Device Identifier Shelf Expiration Date Model / Serial / Lot Gd Pin Orth 450mm 3.2mm Cocr Xtd Acc Implanted:Qty: 1 on 01/31/2020 by Dipesh Felix MD at [facility] Right: Sacral Iliac Joint [employer] [id number] / / Wshr 12.7mm 6.5mm Set Unv Orth Ss 1mm Implanted:Qty: 1 on 01/31/2020 by Dipesh Felix MD at [facility] Right: Sacral Iliac Joint [employer] [id number] / / Cannulated Screw, 4.0mm X40mm 1/2 Thread Implanted:Qty: 2 on 01/31/2020 by Dipesh Felix MD at [facility] Right: Ankle [id number] / / 8.0 X 9.5 Fully Threaded Screw Implanted:Qty: 1 on 01/31/2020 by Dipesh Felix MD at [facility] [id number] / / Plate 8 Hl Unv Matrixrib Ti Bone Nonster Implanted:Qty: 5 on 02/05/2020 by Dipesh Hernandez MD at [facility] Right: Chest Wall [employer] 04.501.009 / / 2.7 Mm Matrixrib Locking Screw, Self-Drilling, 11mm Implanted:Qty: 35 on 02/05/2020 by Dipesh Hernandez MD at [facility] Right: Chest Wall 04.501.211.0 1 / / 2.7 Mm Matrixrib Locking Screw, Self-Drilling, 12mm Implanted:Qty: 2 on 02/05/2020 by Dipesh Hernandez MD at [facility] Right: Chest Wall 04.501.212.0 1 / / Plate 16 Hl Precontr Lck Lopro 4th Rb Implanted:Qty: 1 on 02/05/2020 by Dipesh Hernandez MD at [facility] Right: Chest Wall [employer] 04.501.004 / / Clareon Uv Iol Ccaoto +23.0d Implanted:Qty: 1 on 09/28/2023 by Simeon Cannon MD at [facility] Left: Eye [employer] 02/20/2027 CCAOTO+23.0D / [id number] / N/A Clareon Iol Aspheric Uv Absorbing Iol Implanted:Qty: 1 on 10/12/2023 by Simeon Cannon MD at [facility] Right: Eye [employer] 02/18/2027 CCA0T0 +23.5D / [id number] / NA Procedures Procedure Name Priority Date/Time Associated Diagnosis Comments COMPREHENSIVE METABOLIC PANEL STAT 06/30/2020 2:29 PM [facility] HEMOGLOBIN A1C Routine 04/18/2020 11:09 AM [facility] from Last 3 Months or Most Recently Relevant to Health Maintenance Results * (ABNORMAL) COMPREHENSIVE METABOLIC PANEL (06/30/2020 2:29 PM [facility]) BUN 29(H) 7 - 26 mg/dL 06/30/2020 3:00 PM [facility] Creatinine 1.2 0.6 - 1.2 mg/dL 06/30/2020 3:00 PM [facility] Sodium 138 136 - 145 mmol/L 06/30/2020 3:00 PM [facility] Potassium 3.7 3.5 - 4.5 mmol/L 06/30/2020 3:00 PM [facility] Chloride 96(L) 98 - 107 mmol/L 06/30/2020 3:00 PM [facility] CO2 28 22 - 29 mmol/L 06/30/2020 3:00 PM [facility] Glucose 144(H) 70 - 115 mg/dL 06/30/2020 3:00 PM [facility] Calcium 8.8 8.4 - 10.2 mg/dL 06/30/2020 3:00 PM [facility] Protein Total 6.5 6.0 - 8.3 g/dL 06/30/2020 3:00 PM [facility] Albumin 2.8(L) 3.4 - 5.0 g/dL 06/30/2020 3:00 PM [facility] Bilirubin Total 0.4 0.2 - 1.2 mg/dL 06/30/2020 3:00 PM [facility] Alkaline Phosphatase 108 40 - 150 Units/L 06/30/2020 3:00 PM [facility] ALT 20 0 - 55 Units/L 06/30/2020 3:00 PM [facility] AST 17 5 - 34 Units/L 06/30/2020 3:00 PM [facility] Anion Gap 18 8 - 18 06/30/2020 3:00 PM [facility] BUN/Creatinine Ratio 24(H) 7 - 23 06/30/2020 3:00 PM [facility] Osmolality Calculated 294 270 - 300 mOsm/kg 06/30/2020 3:00 PM [facility] Albumin/Globulin Ratio 0.8(L) 1.1 - 2.3 06/30/2020 3:00 PM [facility] eGFR 60(L) >60 mL/min/1.7 3 m2 06/30/2020 3:00 PM [facility] Blood BLOOD SPECIMEN / Unknown Venipuncture / Unknown 06/30/2020 2:29 PM [facility] 06/30/2020 2:37 PM [facility] Shaggy James MD LAB - CHEMISTRY KATHY CAMPA [facility] [address] [place] [address], [facility] [phone] * (ABNORMAL) HEMOGLOBIN A1C (04/18/2020 11:09 AM [facility]) Hemoglobin A1c 7.6(H) 4.4 - 6.3 % 04/19/2020 9:00 AM [facility] Estimated Average Glucose 171 mg/dL 04/19/2020 9:00 AM [facility] Comment: HbA1c Interpretation: Treatment target values recommended by ADA and other clinical organizations should be used to evaluate metabolic control in patients. Treatment Target Values: Normal : < 5.7% Pre-diabetes: 5.7-6.4% Diabetes: Equal to or greater than 6.5% Reference: [place] Diabetes Association Standards of Care in Diabetes -2014 In patients 70 years and older consider HbA1c target range of 7.0-7.5% Reference: Diabetes Mellitus in Older People: Position Statement on behalf of the International Association of Gerontology and Geriatrics (IAGG), the Diabetes Working Republican for Older People (EDWPOP), and the International Task Force of Experts in Diabetes. Ritesh Srinivasan, et al. J [place] Medical Directors Association. 2012 Test results diagnostic of diabetes should be repeated for confirmation. The Sebia Capillary 2 assay for the measurement of HbA1c is a National Glycohemoglobin Standardization Program (NGSP)certified method. Blood BLOOD SPECIMEN / Unknown Lab Venipuncture / Unknown 04/18/2020 11:09 AM [facility] 04/18/2020 11:40 AM [facility] Narrative [facility] - 04/19/2020 9:00 AM [facility] note^note Zhane Granger MD LAB - CHEMISTRY OR DERABLES [facility] [address] [place] [address], [facility] [phone] from Last 3 Months or Most Recently [...] 3:26 PM 02/19/2020 5:52 PM Care Teams Nutrition Coordinator Relationship Specialty Start Date End Date Unknown, Provider PCP - General 08/30/23 Donavon Connor MD Family Medicine 08/30/23
--- OUTSIDE RECORDS SUMMARY | 2024-08-05 10:46 | XMS_ITS | Referral Summary ---
Author Organization [facility] Address [address] [place] [address] Care Team Providers Care Supervisor Endless Track Vehicle Name Role Phone Unknown, Provider Primary Care Provider Donavon Holguin MD Unavailable [phone] Source Comments [facility],non-owned Affiliates and Associated Physician Practices is amultiple site organization consisting of ambulatory clinics and hospital sitesin [place], [place], [place] and [place]. This disclosure is being madepursuant to the Care Everywhere program and may not contain all information available regarding this patient. Last updated 18.[facility] Allergies Active Allergy Reactions Criticality Noted [...] tablet 01/01/2023 Active Blood Glucose Monitoring Suppl ([employer] Verio Flex System) w/Device KIT USE DIRECTED THREE TIMES DAILY 01/01/2023 Active erythromycin (Romycin) 5 MG/GM ophthalmic ointment 03/23/2023 Active Endorphinuch Ultra test strip USE TO TEST FOUR TIMES DAILY 03/27/2023 Active TRUEplus 5-Bevel Pen [place] 32G X 4 MM MISC USE TO INJECT INSULIN UP TO 5 TIMES DAILY 07/11/2023 Active TRUEplus Insulin Syringe 30G X 5/16 0.5 ML MISC USE DIRECTED EVERY DAY 01/01/2023 Active Lancets (MOLITOUCH DELICA PLUS 33G EXTRA FINE LANCET) TEST [...] original. Could not [facility] [place] afford to provide a Home Health nurse [...] Follow up in: three months with PCP, Ointment Mill Tender, Customs Broker, Stopper Maker, Established eye director of patient care and Linseed Oil Temperer Last Assessment & Plan: Not on any [...] Follow up in: three months with PCP, Ointment Mill Tender, Customs Broker, Stopper Maker, Established eye director of patient care and Linseed Oil Temperer Infected wound 04/12/2020 Sacral wound 02/19/2020 Urinary [...] Description 11/27/2024 10:30 AM CDT Office Visit [facility] - Ophthalmology [address] [place] [address] Medical Devices Implanted Type Area Underwriting Operations Manager Device Identifier Shelf Expiration Date Model / Serial / Lot Gd Pin Orth 450mm 3.2mm Cocr Xtd Acc Implanted:Qty: 1 on 01/31/2020 by Dipesh Felix MD at [facility] Right: Sacral Iliac Joint [employer] [id number] / / Wshr 12.7mm 6.5mm Set Unv Orth Ss 1mm Implanted:Qty: 1 on 01/31/2020 by Dipesh Felix MD at [facility] Right: Sacral Iliac Joint [employer] [id number] / / Cannulated Screw, 4.0mm X40mm 1/2 Thread Implanted:Qty: 2 on 01/31/2020 by Dipesh Felix MD at [facility] Right: Ankle [id number] / / 8.0 X 9.5 Fully Threaded Screw Implanted:Qty: 1 on 01/31/2020 by Dipesh Felix MD at [facility] [id number] / / Plate 8 Hl Unv Matrixrib Ti Bone Nonster Implanted:Qty: 5 on 02/05/2020 by Dipesh Hernandez MD at [facility] Right: Chest Wall [employer] .009 / / 2.7 Mm Matrixrib Locking Screw, Self-Drilling, 11mm Implanted:Qty: 35 on 02/05/2020 by Dipesh Hernandez MD at [facility] Right: Chest Wall 501.211.0 1 / / 2.7 Mm Matrixrib Locking Screw, Self-Drilling, 12mm Implanted:Qty: 2 on 02/05/2020 by Dipesh Hernandez MD at [facility] Right: Chest Wall 04.501.212.0 1 / / Plate 16 Hl Precontr Lck Lopro 4th Rb Implanted:Qty: 1 on 02/05/2020 by Dipesh Hernandez MD at [facility] Right: Chest Wall [employer] 04.501.004 / / [employer] Uv Iol Ccaoto +23.0d Implanted:Qty: 1 on 09/28/2023 by Simeon Cannon MD at [facility] Left: Eye [employer] 02/20/2027 CCAOTO+23.0D / [id number] / N/A [employer] Iol Aspheric Uv Absorbing Iol Implanted:Qty: 1 on 10/12/2023 by Simeon Cannon MD at [facility] Right: Eye [employer] 02/18/2027 CCA0T0 +23.5D / [id number] / NA Procedures Procedure Name Priority Date/Time Associated Diagnosis Comments COMPREHENSIVE METABOLIC PANEL STAT 06/30/2020 2:29 PM LICENSED SALES PRODUCER HEMOGLOBIN A1C Routine 04/18/2020 11:09 AM [employer]IC[employer] SALES PRODUC[employer] from Last 3 Months or Most Recently Relevant to Health Maintenance Results * (ABNORMAL) COMPREHENSIVE METABOLIC PANEL (06/30/2020 2:29 PM LICENSED SALES PRODUCER) BUN 29(H) 7 - 26 mg/dL 06/30/2020 3:00 PM [facility] Creatinine 1.2 0.6 - 1.2 mg/dL 06/30/2020 3:00 PM [facility] Sodium 138 136 - 145 mmol/L 06/30/2020 3:00 PM [facility] Potassium 3.7 3.5 - 4.5 mmol/L 06/30/2020 3:00 PM [facility] Chloride 96(L) 98 - 107 mmol/L 06/30/2020 3:00 PM [facility] CO2 28 22 - 29 mmol/L 06/30/2020 3:00 PM [facility] Glucose 144(H) 70 - 115 mg/dL 06/30/2020 3:00 PM LICENSED SALES PRODUCER [facility] Calcium 8.8 8.4 - 10.2 mg/dL 06/30/2020 3:00 PM [facility] Protein Total 6.5 6.0 - 8.3 g/dL 06/30/2020 3:00 PM [facility] Albumin 2.8(L) 3.4 - 5.0 g/dL 06/30/2020 3:00 PM [facility] Bilirubin Total 0.4 0.2 - 1.2 mg/dL 06/30/2020 3:00 PM [facility] Alkaline Phosphatase 108 40 - 150 Units/L 06/30/2020 3:00 PM [facility] ALT 20 0 - 55 Units/L 06/30/2020 3:00 PM [facility] AST 17 5 - 34 Units/L 06/30/2020 3:00 PM [facility] Anion Gap 18 8 - 18 06/30/2020 3:00 PM [facility] BUN/Creatinine Ratio 24(H) 7 - 23 06/30/2020 3:00 PM [facility] Osmolality Calculated 294 270 - 300 mOsm/kg 06/30/2020 3:00 PM [facility] Albumin/Globulin Ratio 0.8(L) 1.1 - 2.3 06/30/2020 3:00 PM [facility] eGFR 60(L) >60 mL/min/1.7 3 m2 06/30/2020 3:00 PM [facility] Blood BLOOD SPECIMEN / Unknown Venipuncture / Unknown 06/30/2020 2:29 PM LICENSED SALES PRODUCER 06/30/2020 2:37 PM [facility] Shaggy James MD LAB - CHEMISTRY KATHY CAMPA [facility] [address] [place] [address] [phone] * (ABNORMAL) HEMOGLOBIN A1C (04/18/2020 11:09 AM [facility]) Hemoglobin A1c 7.6(H) 4.4 - 6.3 % 04/19/2020 9:00 AM [facility] Estimated Average Glucose 171 mg/dL 04/19/2020 9:00 AM [facility] Comment: HbA1c Interpretation: Treatment target values [...] Lab Venipuncture / Unknown 04/18/2020 11:09 AM LICENSED SALES PRODUCER 04/18/2020 11:40 AM LICENSED SALES PRODUCER Narrative [facility] - 04/19/2020 9:00 AM LICENSED SALES PRODUCER note^note Zhane rGanger MD LAB - CHEMISTRY OR DERABLES [facility] [address] [place] [address], [facility] [phone] from Last 3 Months or Most Recently [...] 3:26 PM 02/19/2020 5:52 PM Care Teams Supervisor Endless Track Vehicle Relationship Specialty Start Date End Date Unknown, Provider PCP - General 08/30/23 Donavon Connor MD Family Medicine 08/30/23
--- OUTSIDE RECORDS SUMMARY | 2024-08-05 10:47 | XMS_ITS | Clinical Summary ---
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 Operator Name Role Phone Donavon Connor MD Primary Care Provider [phone] Allergies Active Allergy Reactions Criticality Noted Date [...] High Blood Pressure 90 tablet 024 Active Qcnecuwg-Cfd-Q e-FA (, W/IRON & FA, OR)Indications :Nutritional [...] complication, with long-term current use of insulin ([facility]) 05/25/2020 05/04/2022 Essential hypertension 05/25/202005/04 Pressure injury of contiguou s region involving back and buttock, stage 3 05/25/202011/2021 Decreased mobility 02/10/2020 Fracture of left clavicle 01/26/2020 Fracture of manubrium 01/26/20202021 Fracture of medial malleolus of right tibia 01/26/2020 05/04/2022 L1 vertebral fracture ([facility]) 01/25/2020 05/04/2022 Diabetes mellitus ([facility]) 01/13/2014 2021 Encounters Date Type Department Care Team Description 08/02/2024 12:00 PM MANAGER SCIENTIFIC Home Care Visit [address] [place] [address] [place] [address] Juliana Mcgrath RN SN DISCIPLINE DISCHARGE 08/02/2024 Home Care Visit [address] [place] [address] [place] [address] Juliana Mcgrath RN [facility] INTERDISCIPLINARY [facility] 07/30/2024 10:45 AM MANAGER SCIENTIFIC Home Care Visit [address] [address] Meera Choi LPN SN HOME VISIT 07/29/2024 2:30 PM MANAGER SCIENTIFIC Home Care Visit [address] [address] Catie Zabala, PT PT INITIAL EVALUATION 07/29/2024 9:20 AM MANAGER SCIENTIFIC Office Visit [facility] Medical [facility] Family and Sports Medicine [address] [phone] Donavon Connor MD Follow Up (ER follow up for chest pain) 07/29/2024 Travel 07/26/2024 9:00 AM MANAGER SCIENTIFIC Home Care Visit [address] [phone] Meera Choi LPN SN HOME VISIT 07/24/2024 Home Care Visit [address] [address] Catie Zabala, PT CASE COMMUNICATION 07/23/2024 12:15 PM MANAGER SCIENTIFIC Home Care Visit [address] [phone] Preeti Chang RN SN OASIS RESUMPTION OF CARE 07/23/2024 Scan [employer] INFO SRVCS Scanned, [facility] Image (SCAN) 07/23/2024 Plan of Care Documentation [address] [phone] 07/22/2024 9:30 AM MANAGER SCIENTIFIC Home Care Visit [address] [phone] Makenzie Cheema RN SN NON ADMIT LETTY 07/19/2024 10:15 AM MANAGER SCIENTIFIC Home Care Visit [address] [phone] Nereida London RN SN OASIS TRANSFER W/OUT DC 07/18/2024 Scan [facility] INFO SRVCS Scanned, [facility] Image (SCAN) 07/17/2024 Scan [facility] INFO SRVCS Scanned, [facility] Image (SCAN) 07/15/2024 9:00 AM MANAGER SCIENTIFIC Home Care Visit [address] [place] [address] [place] [address] Maida Bello, WORKDAY FINANCIALS CONSULTANT WORKDAY FINANCIALS CONSULTANT HOME VISIT 07/13/2024 Scan [facility] INFO SRVCS Scanned, [facility] Image (SCAN) 07/11/2024 11:15 AM MANAGER SCIENTIFIC Home Care Visit [address] [place] [address] [place] [address] Maida Bello, WORKDAY FINANCIALS CONSULTANT WORKDAY FINANCIALS CONSULTANT HOME VISIT 07/09/2024 12:00 PM MANAGER SCIENTIFIC Home Care Visit [address] [address] Juliana Mcgrath RN SN HOME VISIT 07/05/2024 11:30 AM MANAGER SCIENTIFIC Home Care Visit [address] [place] [address] Anna Viera, RN SN HOME VISIT 07/04/2024 12:30 PM MANAGER SCIENTIFIC Home Care Visit [address] [place], [place] [phone] Yuridia Sofia, OT OT INITIAL EVALUATION 07/04/2024 Scan [facility] INFO SRVCS Scanned, [facility] 07/04/2024 Telephone [facility] [address] [place] [phone] Donavon Connor MD Advice 07/03/2024 3:00 PM MANAGER SCIENTIFIC Home Care Visit [address] [place], [place] [phone] Devin Dean, PT PT INITIAL EVALUATION 07/03/2024 10:20 AM MANAGER SCIENTIFIC Office Visit [facility] [address] [place] [phone] Donavon Connor MD TCM (Was admitted to [facility] for heart attack and was readmitted due to the Flu,Home health called to reconcile pt med list. States pt BP has been running low, has pitting edema in both legs refusing to use spirometer. States he may need a repeat BMP.///) 07/03/2024 Travel 07/02/2024 11:30 AM MANAGER SCIENTIFIC Home Care Visit [facility] Home Care [address] [place], [place] [phone] Anna Viera RN SN OASIS START OF CARE 07/02/2024 Scan [facility] Care [address] [place], [place] [phone] Donavon Connor MD 07/02/2024 Plan of Care Documentation [facility] Care [address] [place], [place] [phone] 07/01/2024 Scan [facility] INFO SRVCS Scanned, [facility] 07/01/2024 Scan [facility] Home Care [address] [place], [place] [phone] Scanned, [facility] 07/01/2024 Telephone [facility] Care [address] [place], [place] [phone] Donavon Connor MD Advise 06/27/2024 Scan [facility] INFO SRVCS Scanned, [facility] Image (SCAN) 06/26/2024 Scan [facility] INFO SRVCS Scanned, [facility] Ultrasound (SCAN); CT (SCAN); Armored Car Guard Report (SCAN)* 06/26/2024 Telephone [facility] [address] [place] [phone] Donavon Connor MD Advice 06/24/2024 Scan [facility] INFO SRVCS Scanned, [facility] Echo (SCAN) 06/24/2024 Telephone [facility] [address] [place] [address] Donavon Connor MD Refill Request 06/22/2024 Scan [facility] INFO SRVCS Scanned, [facility] 06/22/2024 Scan [facility] INFO SRVCS Scanned, [facility] Image (SCAN) 05/15/2024 9:00 AM MANAGER SCIENTIFIC Home Care Visit [address] [place] [address] [place] [address] Catie Zabala, PT PT OASIS DISCHARGE 05/14/2024 Telephone [facility] Medical [facility] Family and Sports Medicine [address] [phone] Donavon Connor MD Refill Request 05/12/2024 Home Care Visit [address] [place], [place] [phone] aCtie Zabala, PT [facility] INTERDISCIPLINARY [facility] 05/08/2024 1:45 PM MANAGER SCIENTIFIC Home Care Visit [address] [place], [place] [phone] Loki Mart, WORKDAY FINANCIALS CONSULTANT WORKDAY FINANCIALS CONSULTANT HOME VISIT from Last 3 Months Immunizations [...] materials from doctor or pharmacy Often 07/23/2024 [facility] Utilities Answer Date Recorded In the [...] than three times a week 12/30/2022 Attends [employer] Not on file 12/30 Do you belong to any clubs o r organizations such as hoahaoism groups, unions, fraternal or athletic groups, or [...] place to sleep or slept in a [place] facility (including now)? No 06/24/2023 Housing Stability Vital Sign Answer Macho e Recorded In the last 12 months, was t here a time when you were not able to pay the mortgage or rent on time? No 04/10/2024 In the past 12 months, how m any times have you moved where you were living? 0 04/10/2024 At any time in the past 12 m [facility], were you homeless or living in a [place] facility (including now)? No 04/10/2024 Sex and Gender Information Value Date Recorded Sex Assigned at Male 04/09/2024 9:16 PM MANAGER SCIENTIFIC Legal Sex Male 8:36 PM CDT Gender Identity Male 04/09/2024 9:16 PM MANAGER SCIENTIFIC Sexual Orientation Straight 04/09/2024 9: 16 PM MANAGER SCIENTIFIC Last Filed Vital Signs Vital Sign Reading Time Taken Comments Blood Pressure 136/62 08/02/2024 12:43 PM MANAGER SCIENTIFIC Pulse 72 08/02/2024 12:43 PM MANAGER SCIENTIFIC Temperature 36.9 C (98.4 F) 07/30/2024 10:27 AM MANAGER SCIENTIFIC Respiratory Rate 18 08/02/2024 12:43 PM MANAGER SCIENTIFIC Oxygen Saturation 96% 08/02/2024 12:43 PM MANAGER SCIENTIFIC Inhaled Oxygen Concentration - - Weight 67.6 kg (149 lb) 07/29/2024 8:53 AM MANAGER SCIENTIFIC Height 162.6 cm (5' 4 ) 07/29/2024 8:53 AM MANAGER SCIENTIFIC Body Mass Index 25.58 07/29/2024 8:53 AM MANAGER SCIENTIFIC Plan of Treatment Upcoming Encounters Date Type Department Care Team (Late st Contact Info) Description 08/05/2024 3:30 PM CDT Appointment [address] [place] [address] [place] [address] Catie Zabala, PT [address] [place], [place] [address] 01/06/2025 11:00 AM CDT Office Visit [facility] Medical Group Multispecialty Care - [facility] [address] [facility], [address] [place] [phone] Lai Anderson MD [address] [place] [address] Health Maintenance Due Date Last Done Comments [...] Colonoscopy (10 Years) Discontinued 04/13/2024 PHQ-2 (Physician [place]) Completed 07/29/2024 Meningococcal B Vaccine Aged Out [...] Alvarez, RN Medical Devices Implanted Type Area Construction Producer Device Identifier Shelf Expiration Date Model / Serial / Lot Mesh Bard Marlex 3 X 6 [id number] - [id number] Implanted:Qty : 1 on 12/28/2021 by Abundio Valverde MD at [facility] Mesh Right: Abdomen [employer] [id number] 04/25/2026 [id number] / / [id number] Procedures Procedure Name Priority Date/Time Associated Diagnosis Comments IMAGE GENERIC 07/23/2024 IMAGE GENERIC 07/18/2024 IMAGE GENERIC 07/17/2024 IMAGE GENERIC 07/13/2024 IMAGE GENERIC 06/27/2024 SUPERVISOR PROPERTIES 06/26/2024 CT GENERIC 06/26/2024 CT GENERIC 06/26/2024 ULTRASOUND GENERIC (SCAN ORDER) 06/26/2024 ECHO GENERIC (SCAN ORDER) 06/24/2024 IMAGE GENERIC Routine 06/22/2024 DIABETIC RETINOPATHY EXAM (NEGATIVE)(SCAN ORDER) Routine 04/15/2024 LIPID PANEL Routine 03/01/2024 9:46 AM CDT Primary hypertension Mixed hyperlipidemia Type 2 diabetes mellitus without complication, with long-term current use of insulin ([facility]) HEMOGLOBIN, GLYCOSYLATED Routine 03/01/2024 9:46 AM CDT Primary hypertension Mixed hyperlipidemia Type 2 diabetes mellitus without complication, with long-term current use of insulin ([facility]) from Last 3 Months or Most Recently Relevant to Health Maintenance Results * IMAGE GENERIC (07/23/2024) Only the most recent of6 resultswithin the time period is included. Anatomical Region Laterality Modality Other 07/23/2024 [facility] Scanned SCANNING Final Resu lt * CT GENERIC (06/26/2024) Only the most recent of2 resultswithin the time period is included. Anatomical Region Laterality Modality Other 06/26/2024 Result [facility] Scanned SCANNING Final Resu lt * SUPERVISOR PROPERTIES (06/26/2024) Anatomical Region Laterality Modality Other 06/26/2024 Result [employer] [facility] Scanned SCANNING Final Resu lt * ULTRASOUND GENERIC (SCAN ORDER) (06/26/2024) Anatomical Region Laterality Modality Other 06/26/2024 [employer] Scanned SCANNING Final Resu lt * ECHO GENERIC (SCAN ORDER) (06/24/2024) Anatomical Region Laterality Modality Other 06/24/2024 Result [employer] [facility] Scanned SCANNING Final Resu lt * DIABETIC RETINOPATHY EXAM (NEGATIVE) (04/15/2024) us [facility] Scanned SCANNING Final Resu lt [facility] ONBASE * (ABNORMAL) HEMOGLOBIN, GLYCOSYLATED (03/01/2024 9:46 AM CDT) HGB A1C 8.3(H) <5.7 % 03/01/2024 12:43 PM CDT [facility] Comment: ADA GUIDELINES 2010 5.7 TO 6.4% INCREASED RISK OF DIABETES > OR = 6.5% CONSISTENT WITH DIABETES ESTIMATED AVG GLUCOSE 192 mg/dL 03/01/2024 12:43 PM CDT [facility] 03/01/2024 9:46 AM CDT Donavon Connor MD LABORATORY Final Result Performing Organization Address City/[facility]/ZIP Co de Phone Number [facility] [address] [place] [address], [place] [phone] * (ABNORMAL) LIPID PANEL (03/01/2024 9:46 AM CDT) CHOLESTEROL 216(H) <200 MG/DL 03/01/2024 3:31 PM CDT [facility] TRIGLYCERIDES 345(H) <150 MG/DL 03/01/2024 3:31 PM CDT [facility] HDL 31(L) >40.0 MG/DL 03/04/2024 3:44 PM CDT [facility] LDL (CALCULATED) 116(H) <100 MG/DL 03/04/2024 3:44 PM CDT [facility] NON HDL CHOLESTEROL 185(H) <130 MG/DL 03/04/2024 3:44 PM CDT [facility] CHOL/HDL RATIO 7.0(H) 0.0 - 4.5 03/04/2024 3:44 PM CDT [facility] VLDL CALCULATION 69(H) 5 - 55 MG/DL 03/01/2024 3:31 PM CDT [facility] LIPID INTERPRETATION 03/01/2024 3:31 PM CDT [facility] Comment: NIH CONCENSUS REPORT RECOMMENDATIONS: ADULT CHILD LOW RISK: CHOLESTEROL <200 <170 TRIGLYCERIDE <150 --- HDL >=60 --- LDL <100 <110 BORDERLINE: CHOLESTEROL 200-239 170-199 TRIGLYCERIDE 150-199 --- HDL 40-59 --- LDL 100-159 110-129 HIGH RISK: CHOLESTEROL >=240 >=200 TRIGLYCERIDE >=200 --- HDL <40 --- LDL >=160 >=130 03/01/2024 9:46 AM CDT Donavon Connor MD LABORATORY Final Result [facility] [address] [place] [address], from Last 3 Months or Most Recently Relevant to Health Maintenance Additional Health Concerns 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
--- OUTSIDE RECORDS SUMMARY | 2024-08-05 10:47 | XMS_ITS | Patient Health Summary ---
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 Blood PERIPHERAL BLOOD / Unknown Lab Venipuncture / Unknown 04/18/2020 11:22 AM DEPUTY JAILER 04/18/2020 11:36 AM DEPUTY JAILER Chad Rocha MD LAB - MICROBIOLOGY O RDERABLES [facility] MICRO[facility]OLOG[facility] [address] [place] [address], [facility] [phone] * (ABNORMAL) HEMOGLOBIN A1C (04/18/2020 11:09 AM DEPUTY JAILER) Only the most recent of2 resultswithin the time period is included. Hemoglobin A1c 7.6(H) 4.4 - 6.3 % 04/19/2020 9:00 AM [facility] Estimated Average Glucose 171 mg/dL 04/19/2020 9:00 AM [facility] Comment: HbA1c Interpretation: Treatment target values recommended by ADA and other clinical organizations should be used to evaluate metabolic control in patients. Treatment Target Values: Normal : < 5.7% Pre-diabetes: 5.7-6.4% Diabetes: Equal to or greater than 6.5% Reference: [place] [employer] Standards of Care in Diabetes -2014 In patients 70 years and older consider HbA1c target range of 7.0-7.5% Reference: Diabetes Mellitus in Older People: Position Statement on behalf of the International Association of Gerontology and Geriatrics (IAGG), the Diabetes Working Alliance Party for Older People (EDWPOP), and the International Task Force of Experts in Diabetes. Ritesh Srinivasan et al. J [employer]. 2012 Test results diagnostic of diabetes should be repeated for confirmation. The Sebia Capillary 2 assay for the measurement of HbA1c is a National Glycohemoglobin Standardization Program (NGSP)certified method. Blood BLOOD SPECIMEN / Unknown Lab Venipuncture / Unknown 04/18/2020 11:09 AM DEPUTY JAILER 04/18/2020 11:40 AM DEPUTY JAILER Narrative [facility] - 04/19/2020 9:00 AM DEPUTY JAILER note^note Zhane Granger MD LAB - CHEMISTRY OR DERABLES Performing Organization Address City/[facility]/ZIP Co de Phone Number [address] [address], [facility] [phone] * FOLATE (04/18/2020 11:09 AM DEPUTY JAILER) Folate 10.4 7.0 - 31.4 ng/mL 04/18/2020 12:39 PM DEPUTY JAILER [facility] Blood BLOOD SPECIMEN / Unknown Lab Venipuncture / Unknown 04/18/2020 11:09 AM DEPUTY JAILER 04/18/2020 11:40 AM DEPUTY JAILER Zhane Granger MD LAB - CHEMISTRY OR DERABLES Performing Organization Address City/[facility]/ZIP Co de Phone Number [address] [address], [place] [phone] * VITAMIN B12 (04/18/2020 11:09 AM DEPUTY JAILER) Only the most recent of2 resultswithin the time period is included. Vitamin B12 239 213 - 816 pg/mL 04/18/2020 12:39 PM DEPUTY JAILER [facility] Blood BLOOD SPECIMEN / Unknown Lab Venipuncture / Unknown 04/18/2020 11:09 AM DEPUTY JAILER 04/18/2020 11:40 AM DEPUTY JAILER Zhane Granger MD LAB - CHEMISTRY OR DERABLES Performing Organization Address City/[facility]/ZIP Co de Phone Number [address] [address] [phone] * XR CHEST 1VW PORTABLE (04/18/2020 5:50 AM DEPUTY JAILER) Only the most recent of18 resultswithin the time period is included. Anatomical Region Laterality Modality Chest Radiographic Tavon ging 04/18/2020 10:3 0 AM DEPUTY JAILER Impressions 04/19/2020 12:14 PM DEPUTY JAILER FINDINGS/IMPRESSION: There is redemonstrated internal fixation of multiple right rib fractures. The lungs are hypoinflated with bronchovascular crowding. There is no focal consolidation, pleural effusion, or pneumothorax. The cardiomediastinal silhouette is normal. Displaced fractures of the left clavicle and multiple left ribs are grossly unchanged in osseous alignment. Dictated by Lobito Han MD (vice president compliance). Dr. CHRISTINA Bahena have personally reviewed and interpreted this examination/study. This report was electronically signed by CHRISTINA HERNANDEZ on 04/19/2020 12:14 PM . Narrative 04/19/2020 12:14 PM DEPUTY JAILER EXAMINATION: XR CHEST 1VW PORTABLE HISTORY: T14.8XXA: [...] osseous alignment. Dictated by Lobito Han MD (vice president compliance). Dr. CHRISTINA Bahena have personally reviewed and interpreted this examination/study. This report was electronically signed by CHRISTINA HERNANDEZ on 04/19/2020 12:14 PM . Chad Rocha MD DIAGNOSTIC IMAGING O RDERABLES * (ABNORMAL) URINALYSIS W/MICROSCOPIC NO CULTURE (04/18/2020 5:46 AM DEPUTY JAILER) Only the most recent of4 resultswithin the time period is included. Color UA Straw Straw, Yellow, Colorless 04/18/2020 6:23 AM [facility] Clarity UA Clear Clear, Slt Cloudy 04/18/2020 6:23 AM [facility] Specific [place] UA 1.008 1.005 - 1.030 04/18/2020 6:23 AM [facility] pH UA 7.0 5.0 - 8.0 pH 04/18/2020 6:23 AM [facility] Protein UA Negative Negative mg/dL 04/18/2020 6:23 AM [facility] Glucose UA 1+(A) Negative mg/dL 04/18/2020 6:23 AM [facility] Ketone UA Negative Negative mg/dL 04/18/2020 6:23 AM [facility] Bilirubin UA Negative Negative mg/dL 04/18/2020 6:23 AM [facility] Blood UA Negative Negative 04/18/2020 6:23 AM [facility] Nitrite UA Negative Negative 04/18/2020 6:23 AM [facility] Leukocyte Esterase Negative Negative 04/18/2020 6:23 AM [facility] Urobilinogen UA Negative Negative mg/dL 04/18/2020 6:23 AM [facility] RBC UA None Seen None Seen, 0-2, 3-5 /HPF 04/18/2020 6:23 AM [facility] WBC UA None Seen None Seen, 0-5 /HPF 04/18/2020 6:23 AM [facility] Squamous Epithelial Cells UA None Seen None Seen, 0-2 /HPF 04/18/2020 6:23 AM [facility] Urine URINE SPECIMEN OBTAINED BY CLEAN CATCH PROCEDURE / Unknown Collection / Unknown 04/18/2020 5:46 AM DEPUTY JAILER 04/18/2020 6:03 AM [facility] - 04/18/2020 6:23 AM DEPUTY JAILER note^note Chad Rocha MD LAB - URINALYSIS ORD ERABLES Performing Organization Address [facility]/ZIP Co de Phone Number [address] [address], [facility] [phone] * PTT [facility] (04/17/2020 11:38 PM DEPUTY JAILER) Only the most recent of19 resultswithin the time period is included. APTT 26.4 23.0 - 38.4 Seconds 04/18/2020 12:07 AM [facility] Comment:Suggested therapeuti c range for full dose I.V. unfractionated heparin therapy for venous thromboembolism is 71 to 109 seconds. Blood BLOOD SPECIMEN / Unknown Lab Venipuncture / Unknown 04/17/2020 11:38 PM DEPUTY JAILER 04/17/2020 11:59 PM [facility] - 04/18/2020 12:07 AM DEPUTY JAILER note^note Chad Rocha MD LAB - COAGULATION OR DERABLES Performing Organization Address [facility] Co de Phone Number [address] [address], [facility] [phone] * PT-INR [facility] (04/17/2020 11:38 PM DEPUTY JAILER) Only the most recent of8 resultswithin the time period is included. PT 12.8 12.1 - 14.8 Seconds 04/18/2020 12:06 AM [facility] INR 1.0 See Comment 04/18/2020 12:06 AM [facility] Comment:The suggested therap eutic range for standard coumadin (warfarin) therapy is an INR of 2.0-3.0. For high-risk patients (Mechanical Mitral Valve Prosthesis, etc.), the suggested prophylactic therapeutic range is an INR of 2.5-3.5. Blood BLOOD SPECIMEN / Unknown Lab Venipuncture / Unknown 04/17/2020 11:38 PM DEPUTY JAILER 04/17/2020 11:59 PM [facility] - 04/18/2020 12:06 AM DEPUTY JAILER note^note Chad Rocha MD LAB - COAGULATION OR DERABLES Performing Organization Address City/[facility]/ZIP Co de Phone Number [address] [address], [place] [phone] * TROPONIN I (04/17/2020 11:38 PM DEPUTY JAILER) Only the most recent of3 resultswithin the time period is included. Troponin I <0.010 <0.032 ng/mL 04/18/2020 12:26 AM DEPUTY JAILER [facility] Blood BLOOD SPECIMEN / Unknown Lab Venipuncture / Unknown 04/17/2020 11:38 PM DEPUTY JAILER 04/17/2020 6:15 PM DEPUTY JAILER Chad Rocha MD LAB - CHEMISTRY KATHY CAMPA Performing Organization Address City/[facility] Co de Phone Number [address] [address], [facility] [phone] * LACTIC ACID BLOOD (04/17/2020 11:38 PM DEPUTY JAILER) Only the most recent of2 resultswithin the time period is included. Pathologist [facility] Lactic Acid-Stat 1.9 0.5 - 2.2 mmol/L 04/18/2020 12:18 AM DEPUTY JAILER [facility] Blood BLOOD SPECIMEN / Unknown Lab Venipuncture / Unknown 04/17/2020 11:38 PM DEPUTY JAILER 04/17/2020 6:15 PM DEPUTY JAILER Chad Rocha MD LAB - CHEMISTRY KATHY CAMPA [address] [address], [place] [phone] * (ABNORMAL) C DIFFICILE GD AG + TOXIN A+B (03/21/2020 12:42 PM CDT) Interpretation C difficile Indeterm inate(A) Negative for toxigenic C. difficile 03/21/2020 8:57 PM CDT [facility] Stool STOOL SPECIMEN / Unknown Collection / Unknown 03/21/2020 12:42 PM CDT 03/21/2020 12:55 PM CDT Narrative [facility] - 03/21/2020 8:57 PM CDT Indeterminate results reflex to a C. difficile by PCR test. See separate report. Maycol Matthews MD LAB - MICROBIOLOGY O PEMA Performing Organization Address City/[facility]/ZIP Co de Phone Number [facility] [address] [place] [address], [facility] [phone] * (ABNORMAL) C DIFFICILE BY PCR (03/21/2020 12:42 PM CDT) C difficile Toxin B Gene Detected( A) Not detected, Invalid 03/22/2020 6:19 PM CDT [facility]CRO[facility] Stool STOOL SPECIMEN / Unknown Collection / Unknown 03/21/2020 12:42 PM CDT 03/21/2020 12:55 PM CDT Maycol Matthews MD LAB - MICROBIOLOGY O PEMA Performing Organization Address [facility]/ZIP Co de Phone Number [facility] [address] [place] [address], [facility] [phone] * CT ABDOMEN PELVIS WO CONTRAST (03/19/2020 [...] changed. Report dictated by Nicolás Kingston MD (vice president compliance). I, Dr. KAYLENE CAO M.D. have personally [...] changed. Report dictated by Nicolás Kingston MD (vice president compliance). Dr. KAYLENE Bahena M.D. have personally reviewed [...] Not Established mmol/L 03/16/2020 12:02 PM CDT [facility] Urine URINE SPECIMEN OBTAINED BY CLEAN CATCH PROCEDURE / Unknown Collection / Unknown 03/16/2020 11:35 AM CDT 03/16/2020 11:46 AM CDT Maycol Matthews MD LAB - URINE CHEMISTR Y ORDERABLES [address] [address], [facility] [phone] * UREA NITROGEN URINE RANDOM (03/16/2020 11:35 AM CDT) Urea Nitrogen Random Urine 396 Not Established mg/dL 03/16/2020 12:02 PM CDT [facility] Urine URINE SPECIMEN OBTAINED BY CLEAN CATCH PROCEDURE / Unknown Collection / Unknown 03/16/2020 11:35 AM CDT 03/16/2020 11:46 AM CDT Maycol Matthews MD LAB - URINE CHEMISTR Y ORDERABLES Performing Organization Address [facility]/ZIP Co de Phone Number [address] [address], [place] [phone] * CREATININE URINE RANDOM (03/16/2020 11:35 AM CDT) Creatinine Urine 60 Not Established mg/dL 03/16/2020 12:02 PM CDT [facility] Comment:Result obtained by magui tellez. Urine URINE SPECIMEN OBTAINED BY CLEAN CATCH PROCEDURE / Unknown Collection / Unknown 03/16/2020 11:35 AM CDT 03/16/2020 11:46 AM CDT Maycol Matthews MD LAB - URINE CHEMISTR Y ORDERABLES Performing Organization Address [facility] Co de Phone Number [address] [address], [place] [phone] * CULTURE URINE (03/15/2020 4:57 PM CDT) Only the most recent of4 resultswithin the time period is included. Culture Urine No growth (<100 CFU/mL) CANDACE 03/17/2020 1:20 AM CDT [facility] Urine URINE SPECIMEN OBTAINED VIA [employer]WELL[employer] URINARY CATHETER / Unknown Collection / Unknown 03/15/2020 4:57 PM CDT 03/15/2020 6:02 PM CDT Geoffrey Rogers MD LAB - MICROBIOLOGY O RDERABLES Performing Organization Address City/[facility]/ZIP Co de Phone Number [facility] [address] [place] [address], [facility] [phone] * (ABNORMAL) URINALYSIS REFLEX TO MICROSCOPIC NO CULTURE (03/15/2020 1:28 PM CDT) Color UA Deana(A) Straw, Yellow, Colorless 03/15/2020 2:11 PM [facility] Clarity UA Turbid(A) Clear, Slt Cloudy 03/15/2020 2:[address] [facility] Specific [place] UA 1.023 1.005 - 1.030 03/15/2020 2:11 PM [facility] pH UA 5.0 5.0 - 8.0 pH 03/15/2020 2:11 PM [facility] Protein UA 2+(A) Negative mg/dL 03/15/2020 2:11 PM [facility] Glucose UA Negative Negative mg/dL 03/15/2020 2:11 PM [facility] Ketone UA Trace(A) Negative mg/dL 03/15/2020 2:11 PM [facility] Bilirubin UA Negative Negative mg/dL 03/15/2020 2:11 PM [facility] Blood UA 3+(A) Negative 03/15/2020 2:11 PM [facility] Nitrite UA Negative Negative 03/15/2020 2:11 PM [facility] Leukocyte Esterase 3+(A) Negative 03/15/2020 2:11 PM [facility] Urobilinogen UA Negative Negative mg/dL 03/15/2020 2:11 PM [facility] RBC UA >100(A) None Seen, 0-2, 3-5 /HPF 03/15/2020 2:11 PM [facility] WBC UA >100(A) None Seen, 0-5 /HPF 03/15/2020 2:11 PM [facility] WBC Clumps Many(A) None /HPF 03/15/2020 2:11 PM [facility] Bacteria UA 1+(A) None, Trace /HPF 03/15/2020 2:11 PM [facility] Squamous Epithelial Cells UA None Seen None Seen, 0-2 /HPF 03/15/2020 2:11 PM [facility] Mucus UA 1+ None, 1+ /LPF 03/15/2020 2:11 PM CDT [facility] Amorphous Crystals Many(A) Rare, Occasional, Few, Moderate, None /HPF 03/15/2020 2:11 PM CDT [facility] Urine URINE SPECIMEN OBTAINED VIA [employer]WELL[employer] URINARY CATHETER / Unknown Collection / Unknown 03/15/2020 1:28 PM CDT 03/15/2020 1:34 PM CDT Narrative [facility] - 03/15/2020 2:11 PM CDT Geoffrey Rogers MD LAB - URINALYSIS ORD ERABLES [address] [address], [facility] [phone] * HIV-1 HIV-2 ANTIGEN/ANTIBODY (03/03/2020 5:25 AM CDT) HIV Antigen/Antibod y 1 & 2 Non-reacti ve Non-react tristan 03/03/2020 2:42 PM CDT [facility] Comment:Neither HIV-1 p24 An tigen nor HIV-1/HIV-2 Antibodies are detected. Blood BLOOD SPECIMEN / Unknown Lab Venipuncture / Unknown 03/03/2020 5:25 AM CDT 03/03/2020 2:10 PM CDT Geoffrey Rogers MD LAB - HEMATOLOGY ORD ERABLES Performing Organization Address City/[facility]/ZIP Co de Phone Number [address] [address], [facility] [phone] * VANCOMYCIN LEVEL RANDOM (03/03/2020 5:25 AM CDT) Only the most recent of4 resultswithin the time period is included. Vancomycin Random 17.9 Therapeutic Ranges not established for random specimens mcg/mL 03/03/2020 6:23 AM CDT [facility] Blood BLOOD SPECIMEN / Unknown Lab Venipuncture / Unknown 03/03/2020 5:25 AM CDT 03/03/2020 5:52 AM CDT Christina Briseno DO LAB - CHEMISTRY ORDE KATHERYN Performing Organization Address [facility] Co de Phone Number [address] [address], [place] [phone] * (ABNORMAL) IRON BLOOD (03/02/2020 2:52 AM CDT) Iron 29(L) 50 - 175 mcg/dL 03/02/2020 3:45 AM CDT [facility] Blood BLOOD SPECIMEN / Unknown Venipuncture / Unknown 03/02/2020 2:52 AM CDT 03/02/2020 3:28 AM CDT Karyna Marshall DO LAB - CHEMISTRY ORDKaren CAMPA Performing Organization Address [facility] Co de Phone Number [address] [address], [place] [phone] * (ABNORMAL) FERRITIN (03/02/2020 2:52 AM CDT) Ferritin 443(H) 22 - 275 ng/mL 03/02/2020 4:03 AM CDT [facility] Blood BLOOD SPECIMEN / Unknown Venipuncture / Unknown 03/02/2020 2:52 AM CDT 03/02/2020 3:28 AM CDT Karyna Marshall DO LAB - CHEMISTRY KATHY CAMPA Performing Organization Address [facility] Co de Phone Number [address] [address], [place] [phone] * ETT LINE PERFORMABLE (02/28/2020 10:30 PM CDT) Narrative Amina Frank - 02/28/2020 10:30 PM CDT Amina Frank MD 02/28/2020 10:30 PM Endotracheal Tube Placement: Patient Location: OR. Procedure: intubation ([id number]). Procedure Section: Sedation: under general anesthesia. Indications [...] Event Date/Time: 02/26/2020 10:35 PM Procedure: intubation ([id number]). Procedure Section: Sedation: under general anesthesia. Indications [...] skin jarrod CANDACE 03/01/2020 1:28 PM CDT [facility] Gram Stain No polymorphonuclear cells(AA) 03/01/2020 1:28 PM CDT [facility] Gram Stain Moderate Gram-positive cocci(AA) 03/01/2020 1:28 PM CDT [facility] Gram Stain Moderate Gram-negative bacilli(AA) 03/01/2020 1:28 PM CDT [facility] Microbiology ENTIRE SACRAL VERTEBRAL COLUMN / Unknown Collection / Unknown 02/24/2020 12:16 PM CDT 02/24/2020 12:23 PM CDT Narrative [facility] - 03/01/2020 1:28 PM CDT 02/24/2020 9:24 PM Ysabel Ortega RN notified. Read back and acknowledged results. Organism seen on initial gram stain may be anaerobic or not viable for aerobic growth Pablito Kan MD LAB - MICROBIOLOGY O RDERABLES [facility] [address] [place] [address], [facility] [phone] * PREPARE (CROSSMATCH) RBC UNIT(S), 2 Units (02/24/2020 6:46 AM CDT) Only the most recent of5 resultswithin the time period is included. Unit Description AS1 LR PRBC [facility] BLOOD BANK LAB Unit ABO B [facility] BLOOD BANK LAB Unit POS [facility] BLOOD BANK LAB Product Number R02 [facility] B LOOD BANK LAB Unit Donor # [id number] [facility] BLOOD BANK LAB Unit Status released [facility] Product [facility] [id number] [facility] OD BANK LAB Blood Type Barcode 7300 [facility] BLOOD BANK LAB Expiration Date S BLOOD BANK LAB Unit Description AS1 LR PRBC [facility] BLOOD BANK LAB Unit ABO B [facility] BLOOD BANK LAB Unit POS [facility] BLOOD BANK LAB Product Number R02 [facility] B LOOD BANK LAB Unit Donor # [id number] [facility] BLOOD BANK LAB Unit Status released [facility] BLOO D BANK LAB Product Code [id number] [facility] BLO OD BANK LAB Blood Type Barcode 7300 [facility] BLOOD BANK LAB Expiration Date S BLOOD BANK LAB Blood Bank BLOOD SPECIMEN / Unknown 02/24/2020 6:46 AM CDT 02/24/2020 7:02 AM CDT Adriana Funes [employer] LAB - BLOOD BANK ORDERABLES [facility] BLOOD BANK LAB [address] [place] [address], [place] [phone] * SARS-COV-2 (COVID-19) IN HOUSE (02/23/2020 9:49 PM CDT) Only the most recent of2 resultswithin the time period is included. COVID-19 PCR Not detected Not detected, Invalid 02/24/2020 7:49 PM CDT [facility] Microbiology SPECIMEN FROM NASOPHARYNGEAL STRUCTURE / Unknown Collection / Unknown 02/23/2020 9:49 PM CDT 02/23/2020 9:56 PM CDT Narrative [facility] - 02/24/2020 7:49 PM CDT This Real Time RT-PCR assay was developed and its performance characteristics determined by [facility]. This test has been [...] Violet Thorpe MD LAB - MICROBIOLOGY ORDERABLES [facility] [address] [place] [address] [phone] * CT CHEST PE W ABD PELVIS [...] the right. Dictated by Lobito Han MD (vice president compliance). I, Dr. Clay SHOEMAKER M.D. have personally [...] the right. Dictated by Lobito Han MD (vice president compliance). Dr. Clay Bahena M.D. have personally reviewed and interpretedthis examination/study. This report was electronically signed by Clay SHOEMAKER M.D. on 02/24/2020 10:45 AM . Violet Thorpe MD CT ORDERABLES * (ABNORMAL) BLOOD GASES JORDYN (02/23/2020 7:02 PM CDT) pH Mixed Venous 7.43(H) 7.30 - 7.40 02/23/2020 7:[address] [facility] pCO2 Mixed Venous 43 40 - 46 mmHg 02/23/2020 7:09 PM [facility] pO2 Mixed Venous 41 35 - 42 mmHg 02/23/2020 7:09 PM [facility] HCO3 Mixed Venous 28.3(H) 22.0 - 26.0 mmol/L 02/23/2020 7:09 PM [facility] TCO2 Mixed Venous 29.6(H) 25.0 - 29.0 mmol/L 02/23/2020 7:09 PM [facility] Base Excess Venous 3.6(H) -2.0 - 2.0 mmol/L 02/23/2020 7:09 PM [facility] [facility] Hemoglobin Mixed Venous 8.6(L) 13.5 - 17.5 g/dL 02/23/2020 7:09 PM [facility] Oxyhemoglobin Mixed Venous 76.9 66.0 - 77.0 % 02/23/2020 7:09 PM [facility] Carboxyhemoglobin Venous 0.0 0.0 - 3.0 % 02/23/2020 7:09 PM [facility] Methemoglobin 0.7 0.0 - 2.0 % 02/23/2020 7:09 PM [facility] FI O2 Mixed Venous 21.0 % 2019 7:09 PM [facility] Blood BLOOD SPECIMEN / Unknown Venipuncture / Unknown 02/23/2020 7:02 PM CDT 02/23/2020 7:07 PM CDT Violet Thorpe MD LAB - BLOOD GASES ORDERABLES [address] [address], [facility] [phone] * XR SHOULDER LEFT 2VW OR MORE (02/13/2020 5:52 PM CDT) Anatomical Region Laterality Modality Upper Extremity Radiographic Tavon ging 02/13/2020 7:04 PM CDT Impressions 02/14/2020 10:35 AM CDT IMPRESSION: 1.Displaced fracture of the distal third of the left clavicle with lateral and inferior displacement of the distal fracture fragment. 2.Multiple left-sided rib fractures. Dictated by Vivien Guzman MD (vice president compliance). I, Dr. KERRY VIERA have personally reviewed [...] rib fractures. Dictated by Vivien Guzman MD (vice president compliance). Dr. KERRY Bahena have personally reviewed and [...] more details.) Dictated by Jessica Ramirez MD (vice president compliance). This report was approved by Jessica Ramirez [...] more details.) Dictated by Jessica Ramirez MD (vice president compliance). This report was approved by Jessica Ramirez [...] more details.) Dictated by Jessica Ramirez MD (vice president compliance). This report was approved by Jessica Ramirez [...] more details.) Dictated by Jessica Ramirez MD (vice president compliance). This report was approved by Jessica Ramirez on 02/11/2020 1:[address] JAH Bhaena have personally reviewed and interpreted this examination/study. This report was electronically signed by JAH ARIZMENDI on02/11/2020 1:34 PM . Sakina Montesinos [employer] MR ORDERABLES * MRI NECK SOFT TISSUE [...] more details.) Dictated by Jessica Ramirez MD (vice president compliance). This report was approved by Jessica Ramirez [...] more details.) Dictated by Jessica Ramirez MD (vice president compliance). This report was approved by Jessica Ramirez on 02/11/2020 1:33 PM . I, Dr. JAH ARIZMENDI have personally reviewed and interpreted this examination/study. This report was electronically signed by JAH ARIZMENDI on02/11/2020 1:34 PM . Sakina Montesinos [employer] MR ORDERABLES * FL SWALLOWING FUNCTION STUDY (02/10/2020 10:18 AM CDT) Anatomical Region Laterality Modality Chest Radiographic Tavon ging 02/10/2020 10:2 2 AM CDT Impressions 02/10/2020 10:36 AM CDT FINDINGS/IMPRESSION: Fluoroscopic assistance was provided for a procedure performed by Speech Therapy. Please see the separate report by Speech Therapy for further details. Fluoroscopy Time: 42 seconds. Dictated by Ivana Lomeli MD (vice president compliance). Dr. KERRY Bahena have personally reviewed and [...] 42 seconds. Dictated by Ivana Lomeli MD (vice president compliance). Dr. KERRY Bahena have personally reviewed and [...] 7.42 7.35 - 7.45 02/07/2020 3:[facility] pCO2 Arterial 36 35 - 45 mmHg 02/07/2020 3:[address] [facility] pO2 Arterial 71 71 - 95 mmHg 02/07/2020 3:[address] [facility] HCO3 Arterial 22.8 22.0 - 26.0 mmol/L 02/07/2020 3:[address] [facility] TCO2 Arterial 23.9(L) 25.0 - 29.0 mmol/L 02/07/2020 3:[address] [facility] Base Excess Arterial -1.3 -2.0 - 2.0 mmol/L 02/07/2020 3:07 AM CDT [facility] Hemoglobin Arterial 9.0(L) 13.5 - 17.5 g/dL 02/07/2020 3:07 AM CDT [facility] Oxyhemoglobin Arterial 93.3(L) 95.0 - 100.0 % 02/07/2020 3:07 AM CDT [facility] Carboxyhemoglobin 0.3 0.0 - 3.0 % 02/07/2020 3:07 AM CDT [facility] Methemoglobin 0.1 0.0 - 2.0 % 02/07/2020 3:07 AM CDT [facility] FI O2 Arterial 80.0 % 02/07/2020 3:07 AM CDT [facility] Blood, arterial ARTERIAL BLOOD SPECIMEN / Unknown Arterial Puncture / Unknown 02/07/2020 2:55 AM CDT 02/07/2020 3:04 AM CDT La Nena Blake MD LAB - BLOOD GASES ORDERABLES Performing Organization Address City/State/[facility] Co de Phone Number [facility] [address] [place] [phone], [facility] [phone] * CT ANGIO BRAIN AND NECK (02/05/2020 [...] Blood 1.11 mmol/L 02/04/2020 5:21 AM T [facility] Adjusted Ionized Calcium 1.14(L) 1.19 - 1.34 mmol/L 02/04/2020 5:21 AM T [facility] pH Whole Blood 7.45 7.35 - 7.45 02/04/2020 5:21 AM [facility] Blood WHOLE BLOOD SPECIMEN / Unknown Lab Venipuncture / Unknown 02/04/2020 4:32 AM CDT 02/04/2020 5:18 AM CDT Ernesto Tinsley MD LAB - CHEMISTRY [facility] Organization Address City/State/ZIP Co de Phone Number [place] [id number] [place] [address], [facility] [phone] * CT ANGIO ABDOMEN PELVIS (01/31/2020 10:12 [...] evaluate the extent of pulmonary embolism. 3. Ttmtf-hj-zfblattl volume right and small volume left pleural [...] 11:32 PM. Dictated by Vincent Montalvo MD (vice president compliance). IDr. Clay M.D. have personally reviewed and [...] evaluate the extent of pulmonary embolism. 3. Uqeir-hq-kpvypodd volume right and small volume left pleural [...] 11:32 PM. Dictated by Vincent Montalvo MD (vice president compliance). Shruti, Dr. Clay SHOEMAKER M.D. have personally [...] wall edema is again seen. Procedure Note eRnetta Shoemaker MD - 02/01/2020 EXAMINATION: Computed tomography [...] evaluate the extent of pulmonary embolism. 3. Wckpq-sb-gcfzwwoo volume right and small volume left pleuraleffusions. [...] 11:32 PM. Dictated by Vincent Montalvo MD (vice president compliance). I, Dr. Clay SHOEMAKER M.D. have personally reviewed and interpretedthis examination/study. This report was electronically signed by Clay SHOEMAKER M.D. on 02/01/2020 10:42 AM . Ernesto Tinsley MD CT ORDERABLES * FL ELENITA SURGERY (01/31/2020 1:17 PM CDT) Narrative [facility] RAD[facility]OLOG[facility] - 01/31/2020 1:18 PM CDT Fluoroscopy was used for this exam in the OR. Please see the Operative report. Dipesh Felix MD FLUOROSCOPY ORDERABL ES [facility] * XR PELVIS 3VW OR [...] normal. Report dictated by Jorge Abbott M.D. (vice president compliance). Dr. CHRISTINA Bahena have personally reviewed and [...] normal. Report dictated by Jorge Abbott M.D. (vice president compliance). Dr. CHRISTINA Bahena have personally reviewed and interpreted this examination/study. This report was electronically signed by CHRISTINA HERNANDEZ on 02/01/2020 2:33 PM . Dipesh Felix MD DIAGNOSTIC IMAGING O RDERABLES * IV PLACEMENT PERFORMABLE (01/31/2020 12:12 PM CDT) Narrative Veronica Frias APRN-CRNA - 01/31/2020 12:12 PM CDT Veronica Frias APRN-CRNA 01/31/2020 12:13 PM Peripheral IV Line Placement: Patient Location: OR Procedure: IV start (60584). Procedure Section: Skin Prep: alcohol. Orientation: left [...] Event Date/Time: 01/31/2020 11:03 AM Procedure: intubation (48269). Procedure Section: Sedation: under general anesthesia. Indications [...] above findings. Dictated by Dagoberto Hurtado MD (vice president compliance). I, Dr. ESTRELLITA SHAH have personally reviewed [...] above findings. Dictated by Dagoberto Hurtado MD (vice president compliance). I, Dr. ESTRELLITA SHAH have personally reviewed [...] above findings. Dictated by Dagoberto Hurtado MD (vice president compliance). I, Dr. ESTRELLITA SHAH have personally reviewed [...] above findings. Dictated by Dagoberto Hurtado MD (vice president compliance). I, Dr. ESTRELLITA SHAH have personally reviewed and interpreted this examination/study. This report was electronically signed by ESTRELLITA SHAH on 01/28/20204:01 PM . Anu Greene DO CT ORDERABLES * (ABNORMAL) POTASSIUM BLOOD (01/28/2020 12:05 PM CDT) Only the most recent of9 resultswithin the time period is included. Potassium 3.2(L) 3.5 - 4.5 mmol/L 01/28/2020 12:34 PM CDT [facility] Blood BLOOD SPECIMEN / Unknown Venipuncture / Unknown 01/28/2020 12:05 PM CDT 01/28/2020 12:17 PM CDT Anu Greene DO LAB - CHEMISTRY ORDERABLES [facility] [address] [place] [address], [facility] [phone] * TRANSFUSE RED BLOOD CELL LEUKOREDUCED UNIT(S) [...] procedure and other - comments (only speaks Kazakh) Patient Sedated? Yes Sedation Type: mild Sedation [...] fracture. Report dictated by Jorge Abbott M.D. (vice president compliance). I, Dr. KERRY VIERA have personally reviewed and interpreted this examination/study. This report was electronically signed by KERRY IVERA on 01/27/2020 12:41 PM . Narrative 01/27/2020 [...] fracture. Report dictated by Jorge Abbott M.D. (vice president compliance). I, Dr. KERRY VIERA have personally reviewed and interpreted this examination/study. This report was electronically signed by KERRY VIERA on 01/27/2020 12:41 PM . Bobby Rizo MD DIAGNOSTIC IMAGING O RDERABLES * (ABNORMAL) DRUG SCREEN TOX URINE PANEL (01/26/2020 8:12 AM [facility]) [facility] Amphetamines Screen Urine Negative Negative : < 1000 ng/mL 01/26/2020 8:56 AM [facility] Barbiturates Screen Urine Negative Negative : < 200 ng/mL 01/26/2020 8:56 AM [facility] Benzodiazepine Screen Urine Negative Negative : < 200 ng/mL 01/26/2020 8:56 AM [facility] Opiates Urine Positive(A) Negative : < 300 ng/mL 01/26/2020 8:56 AM [facility] Comment:Positive urine opiat e screening results should be confirmed by another generally accepted non-immunological method such as gas chromatography or mass spectrometry. Cocaine Metabolites Urine Negative Negative : < 300 ng/mL 01/26/2020 8:56 AM [facility] Phencyclidine Screen Urine Negative Negative : < 25 ng/ml 01/26/2020 8:56 AM [facility] Cannabinoids Screen Urine Negative Negative : <50 ng/mL 01/26/2020 8:56 AM [facility] Methadone Screen Urine Negative Negative : < 300 ng/mL 01/26/2020 8:56 AM [facility] Fentanyl Screen Urine Negative Negative : <1.0 ng/mL 01/26/2020 8:56 AM CDT [facility] Urine URINE / Unknown Collection / Unknown 01/26/2020 8:12 AM CDT 01/26/2020 8:29 AM CDT Narrative [facility] - 01/26/2020 8:56 AM CDT The Urine Toxicology Screening Panel does not screen for Propoxyphene, Meprobamate, Carisoprodol, Trazodone, mebd-mbv-pluiijk medications and/or volatiles (Acetone, Isopropanol, Methanol or Ethylene Glycol). Ethanol, Salicylate, Acetaminophen, Tricyclic Antidepressants and several therapeutic drugs may be individually assayed in serum or plasma specimen. Toxicology testing by the [facility] is an aid to medical diagnosis and treatment of patients. No documented chain of custody was maintained. Results are intended to be used for clinical purposes only. Joshua Matute MD LAB - URINE CHEMISTR Y ORDERABLES Performing Organization Address City/State/[facility] Co de Phone Number [address] [address], [facility] [phone] * FL UROGRAM RETROGRADE (01/25/2020 8:15 PM CDT) Anatomical Region Laterality Modality Abdomen Radiographic Tavon ging 01/25/2020 8:36 PM CDT Impressions 02/01/2020 4:02 PM CDT IMPRESSION: No evidence of injury to the penile or bulbar urethra. Dynamic images showed retrograde flow of contrast into the bladder with normal appearance of the membranous and prostatic urethra. Dictated by Vivien Guzman MD (vice president compliance). IDr. Clay M.D. have personally reviewed and [...] prostatic urethra. Dictated by Vivien Guzman MD (vice president compliance). Dr. Clay Bahena M.D. have personally reviewed [...] of marrow edema associated with the reported S0xiilz fracture. There is associated severe compression of [...] PM CDT) ABO 01/25/2020 4:01 PM CDT [facility] Rh Type 01/25/2020 4:01 PM CDT [facility] Typem 01/25/2020 4:01 PM CDT [facility] Interpretation 01/25/2020 4:01 PM CDT [facility] Blood BLOOD SPECIMEN / Unknown Lab Venipuncture / Unknown 01/25/2020 2:20 PM CDT 01/25/2020 2:34 PM CDT Narrative [facility] - 01/25/2020 4:01 PM CDT Re-type confirmed per [facility] Blood Bank policies & procedures. Results documented in department. Shaggy James MD LAB - BLOOD BANK ORD ERABLES [facility] [address] [place] [address], [facility] [phone] * (ABNORMAL) TEG PLATELET MAPPING (01/25/2020 2:19 PM CDT) Interpretation TEG See Comment 01/25/2020 4:10 PM CDT [facility] React-Time 3.8(L) 5.0 - 10.0 MIN 01/25/2020 4:10 PM CDT [facility] K-Time 1.3 1.0 - 3.0 MIN 01/25/2020 4:10 PM CDT [facility] Angle A-BB 71.2 53.0 - 72.0 Degrees 01/25/2020 4:10 PM CDT [facility] MA (CK) BB 68.4 50.0 - 70.0 mm 01/25/2020 4:10 PM CDT [facility] LY30 0.0 0.0 - 8.0 % 01/25/2020 4:10 PM CDT [facility] CI-Coagulation Index 3.0 -3.0 - 3.0 01/25/2020 4:10 PM CDT [facility] MA-ADP 23.4 Reference Range: None mm 01/25/2020 4:10 PM CDT [facility] MA AA-BB 65.5 Reference Range: None mm 01/25/2020 4:10 PM CDT [facility] % ADP Inhibition 75.5 Reference Range:None % 01/25/2020 4:10 PM CDT [facility] G-Clot Strength 10.8 4.5 - 11.0 d/sc 01/25/2020 4:10 PM CDT [facility] % AA Inhibition 4.9 Reference Range: None % 01/25/2020 4:10 PM CDT [facility] Blood BLOOD SPECIMEN / Unknown Venipuncture / Unknown 01/25/2020 2:19 PM CDT 01/25/2020 2:32 PM CDT Narrative [facility] - 01/25/2020 4:10 [...] MD LAB - BLOOD BANK ORD ERABLES [facility] [address] [place] [address], [facility] [phone] * CT CHEST ABDOMEN PELVIS W CONT [...] compressive atelectasis. Dictated by Vivien Guzman MD (vice president compliance). I, Dr. MANFRED BOYD have personally reviewed [...] cervical spine at the C3-C4 through the C5-[id number] is present due to posterior disc abnormalities [...] compressive atelectasis. Dictated by Vivien Guzman MD (vice president compliance). I, Dr. MANFRED BOYD have personally reviewed [...] compressive atelectasis. Dictated by Vivien Guzman MD (vice president compliance). I, Dr. MANFRED BOYD have personally reviewed [...] cervical spine at the C3-C4 through the C5-[id number] is present due to posterior disc abnormalities [...] compressive atelectasis. Dictated by Vivien Guzman MD (vice president compliance). I, Dr. MANFRED BOYD have personally reviewed [...] compressive atelectasis. Dictated by Vivien Guzman MD (vice president compliance). I, Dr. MANFRED BOYD have personally reviewed [...] cervical spine at the C3-C4 through the C5-[id number] is present due to posterior disc abnormalities [...] compressive atelectasis. Dictated by Vivien Guzman MD (vice president compliance). I, Dr. MANFRED BOYD have personally reviewed [...] compressive atelectasis. Dictated by Vivien Guzman MD (vice president compliance). I, Dr. MANFRED BOYD have personally reviewed [...] cervical spine at the C3-C4 through the C5-X8zapnle is present due to posterior disc abnormalities [...] compressive atelectasis. Dictated by Vivien Guzman MD (vice president compliance). I, Dr. MANFRED BOYD have personally reviewed [...] ramus. Report dictated by Vivien Guzman MD (vice president compliance). I, Dr. CHRISTINA HERNANDEZ have personally reviewed [...] ramus. Report dictated by Vivien Guzman MD (vice president compliance). I, Dr. CHRISTINA HERNANDEZ have personally reviewed and interpreted this examination/study. This report was electronically signed by CHRISTINA HERNANDEZ on 01/25/2020 3:24 PM . Joshua Matute MD DIAGNOSTIC IMAGING O RDERABLES * ALCOHOL ETHYL BLOOD (01/25/2020 1:38 PM CDT) Interpretation Ethanol None Detected None Detected mg/dL 01/25/2020 2:08 PM CDT [facility] Comment:Ethanol levels less than 10 mg/dL are resulted as None detected . Blood BLOOD SPECIMEN / Unknown Venipuncture / Unknown 01/25/2020 1:38 PM CDT 01/25/2020 2:08 PM CDT Joshua Matute MD LAB - CHEMISTRY [facility] Organization Address City/State/ZIP Co de Phone Number [facility] [address] [place] [address], [facility] [phone] Care Teams [employer] Upholsterer Relationship Specialty Start Date End Date Unknown, Provider PCP - General 08/30/23 Donavon Connor MD Family Medicine 08/30/23
--- OUTSIDE RECORDS SUMMARY | 2024-08-05 10:47 | XMS_ITS | Clinical Summary ---
Author Organization [facility] Address [address] [place] [address] Care Team Providers Care Setter Off Name Role Phone No, Physician Primary Care Provider [phone] Bunny Ramires MD Unavailable [phone] Allergies Active Allergy Reactions Criticality Noted [...] Cardiomyopathy, ischemic 07/22/2024 Coronary artery disease involving [place] heart 0 07/15/2024 Constipation, unspecified constipation type 08/2022 Assessment & Plan (07/31/2022 11:22 AM PRINCIPAL CLERK TYPIST): No symptoms or signs of mechanical obstruction. [...] 07/30/2022 Assessment & Plan (07/31/2022 11:21 AM PRINCIPAL CLERK TYPIST): On metformin 500 mg twice daily at [...] 07/30/2022 Assessment & Plan (07/31/2022 10:46 AM PRINCIPAL CLERK TYPIST): Not on any treatment at home. BP well controlled, CTM and add medications if needed Benign prostatic hyperplasia without lower urinary tract symptoms 07/30/2022 Assessment & Plan (07/31/2022 10:44 AM PRINCIPAL CLERK TYPIST): Patient was recently started on Flomax and finasteride at OSH. Patients son reported patient was experiencing difficulty urinating - continue home meds and pcp follow up for further management Stage 3a chronic kidney disease 07/30/2022 Assessment & Plan (07/31/2022 10:48 AM PRINCIPAL CLERK TYPIST): Creatinine is 1.48, up from the most recent of 1.2- 1.3 in 2021 and 2016 - improved to 1.37 on am labs - CTM and follow up outpatient Encounters Date Type Department Care Team Description 07/29/2024 Orders Only [facility] Cardiology [address] [place] [phone] Gerhard Ratliff MD 07/15/2024 Telephone [facility] Cardiology [address] [place] [address] Gina Link MD 07/08/2024 2:00 PM PRINCIPAL CLERK TYPIST Office Visit [facility] Cardiology [address] [place] [address] Gina Link MD Hypertension associated with diabetes (HCC) (Primary Dx); Coronary artery disease involving [place] coronary artery of [place] heart without angina pectoris; Cardiomyopathy, ischemic 07/02/2024 Orders Only [facility] Cardiology [address] [place] [address] Gerhard Ratliff MD 06/29/2024 Orders Only [facility] Information Management [address] [place] [address] Allegra Shin MD 06/26/2024 Orders Only [facility] Cardiology [address] [place] [address] Peyton De Guzman MD from Last 3 Months Surgical History Surgery Date Site/Laterality Comments NV PERQ NL/PL LITHOTRP COMPLEX >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 [...] on file Legal Sex Male 5:44 AM PRINCIPAL CLERK TYPIST Gender Identity Not on file Sexual Orientation Not on file Obstetrics History Last Filed Vital Signs Vital Sign Reading Time Taken Comments Blood Pressure 116/60 07/08/2024 1:05 PM PRINCIPAL CLERK TYPIST Pulse 88 07/08/2024 1:05 PM PRINCIPAL CLERK TYPIST Temperature 36.5 C (97.7 F) 07/31/2022 8:00 AM PRINCIPAL CLERK TYPIST Respiratory Rate 16 07/31/2022 7:55 AM PRINCIPAL CLERK TYPIST Oxygen Saturation 99% 07/08/2024 1:05 PM PRINCIPAL CLERK TYPIST Inhaled Oxygen Concentration - - Weight 67.9 kg (149 lb 9.6 oz) 07/08/2024 1:05 P M PRINCIPAL CLERK TYPIST Height 162.6 cm (5' 4 ) 07/08/2024 1:05 PM PRINCIPAL CLERK TYPIST Body Mass Index 25.68 07/08/2024 1:05 PM PRINCIPAL CLERK TYPIST Plan of Treatment Health Maintenance Due Date [...] CARDIOLOGY DOCUMENT SCAN Routine 07/19/2024 3:34 PM PRINCIPAL CLERK TYPIST CARDIOLOGY DOCUMENT SCAN Routine 07/18/2024 2:33 PM PRINCIPAL CLERK TYPIST CARDIOLOGY DOCUMENT SCAN Routine 07/18/2024 2:12 PM PRINCIPAL CLERK TYPIST CARDIOLOGY DOCUMENT SCAN Routine 07/01/2024 3:53 PM PRINCIPAL CLERK TYPIST CARDIOLOGY DOCUMENT SCAN Routine 06/30/2024 3:49 PM PRINCIPAL CLERK TYPIST CARDIOLOGY DOCUMENT SCAN Routine 06/29/2024 3:44 PM PRINCIPAL CLERK TYPIST SCAN - RADIOLOGY/IMAGING 06/29/2024 CARDIOLOGY DOCUMENT SCAN Routine 06/28/2024 3:37 PM PRINCIPAL CLERK TYPIST CARDIOLOGY DOCUMENT SCAN Routine 06/27/2024 3:32 PM PRINCIPAL CLERK TYPIST CARDIOLOGY DOCUMENT SCAN Routine 06/26/2024 3:20 PM PRINCIPAL CLERK TYPIST CARDIOLOGY DOCUMENT SCAN Routine 06/24/2024 3:16 PM PRINCIPAL CLERK TYPIST CARDIOLOGY DOCUMENT SCAN Routine 06/23/2024 3:10 PM PRINCIPAL CLERK TYPIST CARDIOLOGY DOCUMENT SCAN Routine 06/22/2024 3:04 PM PRINCIPAL CLERK TYPIST CARDIOLOGY DOCUMENT SCAN Routine 06/22/2024 3:03 PM PRINCIPAL CLERK TYPIST CARDIOLOGY DOCUMENT SCAN Routine 06/22/2024 3:00 PM PRINCIPAL CLERK TYPIST EGFR Routine 07/31/2022 5:30 AM PRINCIPAL CLERK TYPIST HEMOGLOBIN A1C Routine 07/30/2022 10:23 PM PRINCIPAL CLERK TYPIST LIPID PANEL Routine 07/30/2022 10:23 PM PRINCIPAL CLERK TYPIST from Last 3 Months or Most Recently Relevant to Health Maintenance Results * Cardiology Document Scan (07/19/2024 3:34 PM PRINCIPAL CLERK TYPIST) Anatomical Region Laterality Modality Other Result David Shin MD [facility] PRO CEDURES Final Result * Cardiology Document Scan (07/18/2024 2:33 PM PRINCIPAL CLERK TYPIST) Anatomical Region Laterality Modality Other Result David Ratliff MD CV CARDIAC SERVICES PROCEDURES F inal Result * Cardiology Document Scan (07/18/2024 2:12 PM PRINCIPAL CLERK TYPIST) Anatomical Region Laterality Modality Other Result David Ratliff MD CV CARDIAC SERVICES PROCEDURES F inal Result * Cardiology Document Scan (07/01/2024 3:53 PM PRINCIPAL CLERK TYPIST) Anatomical Region Laterality Modality Other Result David Ratliff MD CV CARDIAC SERVICES PROCEDURES F inal Result * Cardiology Document Scan (06/30/2024 3:49 PM PRINCIPAL CLERK TYPIST) Anatomical Region Laterality Modality Other Result David Allegra Shin MD CV CARDIAC SERVICES PRO CEDURES Final Result * Cardiology Document Scan (06/29/2024 3:44 PM PRINCIPAL CLERK TYPIST) Anatomical Region Laterality Modality Other Result David Allegra Shin MD CV CARDIAC SERVICES PRO CEDURES Final Result * SCAN - RADIOLOGY/IMAGING (06/29/2024) Anatomical Region Laterality Modality Other Result David Shin MD Final R esult * Cardiology Document Scan (06/28/2024 3:37 PM PRINCIPAL CLERK TYPIST) Anatomical Region Laterality Modality Other Result David Allegra Shin MD CV CARDIAC SERVICES PRO CEDURES Final Result * Cardiology Document Scan (06/27/2024 3:32 PM PRINCIPAL CLERK TYPIST) Anatomical Region Laterality Modality Other Gerhard Ratliff MD CV CARDIAC SERVICES PROCEDURES F inal Result * Cardiology Document Scan (06/26/2024 3:20 PM PRINCIPAL CLERK TYPIST) Anatomical Region Laterality Modality Other Allegra Shin MD CV CARDIAC SERVICES PRO CEDURES Final Result * Cardiology Document Scan (06/24/2024 3:16 PM PRINCIPAL CLERK TYPIST) Anatomical Region Laterality Modality Other Allegra Shin MD CV CARDIAC SERVICES PRO CEDURES Final Result * Cardiology Document Scan (06/23/2024 3:10 PM PRINCIPAL CLERK TYPIST) Anatomical Region Laterality Modality Other Result [facility] us Peyton De Guzman MD CV CARDIAC SERVICES PROCEDU RES Final Result * Cardiology Document Scan (06/22/2024 3:04 PM PRINCIPAL CLERK TYPIST) Anatomical Region Laterality Modality Other us Peyton De Guzman MD CV CARDIAC SERVICES PROCEDU RES Final Result * Cardiology Document Scan (06/22/2024 3:03 PM PRINCIPAL CLERK TYPIST) Anatomical Region Laterality Modality Other Result [facility] us Peyton De Guzman MD CV CARDIAC SERVICES PROCEDU RES Final Result * Cardiology Document Scan (06/22/2024 3:00 PM PRINCIPAL CLERK TYPIST) Anatomical Region Laterality Modality Other us Peyton De Guzman MD CV CARDIAC SERVICES PROCEDU RES Final Result * (ABNORMAL) eGFR (07/31/2022 5:30 AM PRINCIPAL CLERK TYPIST) [facility] eGFR 54(L) 90 - 130 mL/min/1. 73 m2 [facility] Comment: Interpretive Data Reference Interval Normal [...] last reviewed 2021. Blood 07/31/2022 5:30 AM PRINCIPAL CLERK TYPIST 07/31/2022 5:51 AM PRINCIPAL CLERK TYPIST Lizabeth Strong MD LAB BLOOD ORDERABLES Fin al Result Performing Organization Address [facility] [[email or web address]] de Phone Number [facility] [place] [address] * (ABNORMAL) Hemoglobin A1c (07/30/2022 10:23 PM PRINCIPAL CLERK TYPIST) Hgb A1C 10.7(H) 4.0 - 5.6 % [facility] Estimated Average Glucose 260 mg/dL [facility] Comment: The ADA recommends reporting an estimated Average Glucose (eAG) with all Hemoglobin A1c results using the equation derived from a study of 507 normal and diabetic adults. Minority populations were underrepresented and children were not included. (Diabetes Care 2020; 43(S1): S66-S76). The eAG is not equivalent to a fasting glucose. Blood 07/30/2022 10:2 3 PM PRINCIPAL CLERK TYPIST 07/30/2022 10:39 PM PRINCIPAL CLERK TYPIST Lizabeth Strong MD LAB BLOOD ORDERABLES Fin al Result Performing Organization Address City/[facility]/ZIP Co de Phone Number [facility] [employer] [place] [place] [address] * (ABNORMAL) Lipid panel (07/30/2022 10:23 PM PRINCIPAL CLERK TYPIST) Cholesterol 167 30 - 199 mg/dL [facility] Comment: Interpretive Data Ages [...] revised on 2018. Triglycerides 155(H) <=149 mg/dL [facility] Comment: Interpretive Data Ages [...] revised on 2018. HDL 43 >=40 mg/dL [facility] Comment: Interpretive Data Ages < or [...] on 2018. LDL, calculated 93 <=129 mg/dL [facility] Comment: Interpretive Data Ages < or [...] revised on 2018. Non-HDL Cholesterol 124 mg/dL [facility] Comment: Interpretive Data Ages [...] last revised on 2018. Chol/HDL ratio 4 [facility] Blood 07/30/2022 10:2 3 PM PRINCIPAL CLERK TYPIST 07/30/2022 10:39 PM PRINCIPAL CLERK TYPIST Lizabeth Strong MD LAB BLOOD ORDERABLES Fin al Result [facility] Department [place] [address] from Last 3 Months or Most Recently Relevant to Health Maintenance Insurance [facility] Advance Directives For more information, please contact: [phone] * Full Code (Latest Code Status on File) Date Activated Date Inactivated Comments 07/30/2022 9:33 PM 07/31/2022 6:01 PM Care Teams Setter Off Relationship Specialty Start Date End Date No, Physician PCP - General 07/30/22 Bunny Ramires MD 07/30/22
--- OUTSIDE RECORDS SUMMARY | 2024-08-05 10:47 | XMS_ITS | Clinical Summary ---
Author Organization [facility] Address [address] [place] [address] Care Team Providers Care Steaming Cabinet Tender Name Role Phone Unavailable Primary Care [...]
--- OUTSIDE RECORDS SUMMARY | 2024-08-05 10:47 | XMS_ITS | Referral Summary ---
Author Organization [facility] Address [address] [place] [address] Care Team Providers Care Publisher Assistant Name Role Phone No, Physician Primary Care Provider [phone] Bunny Ramires MD Unavailable [phone] Encounters Date Type Department Care Team Description 07/29/2024 Orders Only [facility] Cardiology [address] [place] [address] [address] [place] [phone] Gerhard Ratliff MD 07/15/2024 Telephone [facility] Cardiology [address] [place] [address] [place] [phone] Gina Link MD 07/08/2024 2:00 PM PBX MANAGER Office Visit [facility] Cardiology [address] [place] [address] [address] [place] [phone] Gina Link MD Hypertension associated with diabetes (HCC) (Primary Dx); Coronary artery disease involving [place] coronary artery of [place] heart without angina pectoris; Cardiomyopathy, ischemic 07/02/2024 Orders Only [facility] Cardiology [address] [facility] [address] [place] [phone] Gerhard Ratliff MD 06/29/2024 Orders Only [facility] Health Information Management [address] [place] [address] Allegra Shin MD 06/26/2024 Orders Only [facility] Cardiology [address] [place] [address] Peyton De Guzman MD from [...] Cardiomyopathy, ischemic 07/22/2024 Coronary artery disease involving [place] heart 0 07/15/2024 Constipation, unspecified constipation type 08/2022 Assessment & Plan (07/31/2022 11:22 AM PBX MANAGER): No symptoms or signs of mechanical obstruction. [...] 07/30/2022 Assessment & Plan (07/31/2022 11:21 AM PBX MANAGER): On metformin 500 mg twice daily at [...] 07/30/2022 Assessment & Plan (07/31/2022 10:46 AM PBX MANAGER): Not on any treatment at home. BP well controlled, CTM and add medications if needed Benign prostatic hyperplasia without lower urinary tract symptoms 07/30/2022 Assessment & Plan (07/31/2022 10:44 AM PBX MANAGER): Patient was recently started on Flomax and finasteride at OSH. Patients son reported patient was experiencing difficulty urinating - continue home meds and pcp follow up for further management Stage 3a chronic kidney disease 07/30/2022 Assessment & Plan (07/31/2022 10:48 AM PBX MANAGER): Creatinine is 1.48, up from the most [...] on file Legal Sex Male 5:44 AM PBX MANAGER Gender Identity Not on file Sexual Orientation Not on file Last Filed Vital Signs Vital Sign Reading Time Taken Comments Blood Pressure 116/60 07/08/2024 1:05 PM PBX MANAGER Pulse 88 07/08/2024 1:05 PM PBX MANAGER Temperature 36.5 C (97.7 F) 07/31/2022 8:00 AM PBX MANAGER Respiratory Rate 16 07/31/2022 7:55 AM PBX MANAGER Oxygen Saturation 99% 07/08/2024 1:05 PM PBX MANAGER Inhaled Oxygen Concentration - - Weight 67.9 kg (149 lb 9.6 oz) 07/08/2024 1:05 P M PBX MANAGER Height 162.6 cm (5' 4 ) 07/08/2024 1:05 PM PBX MANAGER Body Mass Index 25.68 07/08/2024 1:05 PM PBX MANAGER Plan of Treatment Not on file Procedures Procedure Name Priority Date/Time Associated Diagnosis Comments CARDIOLOGY DOCUMENT SCAN Routine 07/19/2024 3:34 PM PBX MANAGER CARDIOLOGY DOCUMENT SCAN Routine 07/18/2024 2:33 PM PBX MANAGER CARDIOLOGY DOCUMENT SCAN Routine 07/18/2024 2:12 PM PBX MANAGER CARDIOLOGY DOCUMENT SCAN Routine 07/01/2024 3:53 PM PBX MANAGER CARDIOLOGY DOCUMENT SCAN Routine 06/30/2024 3:49 PM PBX MANAGER CARDIOLOGY DOCUMENT SCAN Routine 06/29/2024 3:44 PM PBX MANAGER SCAN - RADIOLOGY/IMAGING 06/29/2024 CARDIOLOGY DOCUMENT SCAN Routine 06/28/2024 3:37 PM PBX MANAGER CARDIOLOGY DOCUMENT SCAN Routine 06/27/2024 3:32 PM PBX MANAGER CARDIOLOGY DOCUMENT SCAN Routine 06/26/2024 3:20 PM PBX MANAGER CARDIOLOGY DOCUMENT SCAN Routine 06/24/2024 3:16 PM PBX MANAGER CARDIOLOGY DOCUMENT SCAN Routine 06/23/2024 3:10 PM PBX MANAGER CARDIOLOGY DOCUMENT SCAN Routine 06/22/2024 3:04 PM PBX MANAGER CARDIOLOGY DOCUMENT SCAN Routine 06/22/2024 3:03 PM PBX MANAGER CARDIOLOGY DOCUMENT SCAN Routine 06/22/2024 3:00 PM PBX MANAGER EGFR Routine 07/31/2022 5:30 AM PBX MANAGER HEMOGLOBIN A1C Routine 07/30/2022 10:23 PM PBX MANAGER LIPID PANEL Routine 07/30/2022 10:23 PM PBX MANAGER from Last 3 Months or Most Recently Relevant to Health Maintenance Results * Cardiology Document Scan (07/19/2024 3:34 PM PBX MANAGER) Anatomical Region Laterality Modality Other Result David Shin MD CV CARDIAC SERVICES PRO CEDURES Final Result * Cardiology Document Scan (07/18/2024 2:33 PM PBX MANAGER) Anatomical Region Laterality Modality Other Result David Ratliff MD CV CARDIAC SERVICES PROCEDURES F inal Result * Cardiology Document Scan (07/18/2024 2:12 PM PBX MANAGER) Anatomical Region Laterality Modality Other Result David Ratliff MD CV CARDIAC SERVICES PROCEDURES F inal Result * Cardiology Document Scan (07/01/2024 3:53 PM PBX MANAGER) Anatomical Region Laterality Modality Other Result David Ratliff MD CV CARDIAC SERVICES PROCEDURES F inal Result * Cardiology Document Scan (06/30/2024 3:49 PM PBX MANAGER) Anatomical Region Laterality Modality Other Result David Shin MD CV CARDIAC SERVICES PRO CEDURES Final Result * Cardiology Document Scan (06/29/2024 3:44 PM PBX MANAGER) Anatomical Region Laterality Modality Other Result David Shin MD CV CARDIAC SERVICES PRO CEDURES Final Result * SCAN - RADIOLOGY/IMAGING (06/29/2024) Anatomical Region Laterality Modality Other Result David Shin MD Final R esult * Cardiology Document Scan (06/28/2024 3:37 PM PBX MANAGER) Anatomical Region Laterality Modality Other Result David Shin MD CV CARDIAC SERVICES PRO CEDURES Final Result * Cardiology Document Scan (06/27/2024 3:32 PM PBX MANAGER) Anatomical Region Laterality Modality Other us Gerhard Ratliff MD CV CARDIAC SERVICES PROCEDURES F inal Result * Cardiology Document Scan (06/26/2024 3:20 PM PBX MANAGER) Anatomical Region Laterality Modality Other Result David Shin MD CV CARDIAC SERVICES PRO CEDURES Final Result * Cardiology Document Scan (06/24/2024 3:16 PM PBX MANAGER) Anatomical Region Laterality Modality Other Result David Allegra Shin MD CV CARDIAC SERVICES PRO CEDURES Final Result * Cardiology Document Scan (06/23/2024 3:10 PM PBX MANAGER) Anatomical Region Laterality Modality Other Result David De Guzman MD CV CARDIAC SERVICES PROCEDU RES Final Result * Cardiology Document Scan (06/22/2024 3:04 PM PBX MANAGER) Anatomical Region Laterality Modality Other Result David De Guzman MD CV CARDIAC SERVICES PROCEDU RES Final Result * Cardiology Document Scan (06/22/2024 3:03 PM PBX MANAGER) Anatomical Region Laterality Modality Other Result David De Guzman MD CV CARDIAC SERVICES PROCEDU RES Final Result * Cardiology Document Scan (06/22/2024 3:00 PM PBX MANAGER) Anatomical Region Laterality Modality Other Result David De Guzman MD CV CARDIAC SERVICES PROCEDU RES Final Result * (ABNORMAL) eGFR (07/31/2022 5:30 AM PBX MANAGER) eGFR 54(L) 90 - 130 mL/min/1. 73 m2 [facility] Comment: Interpretive Data Reference Interval Normal [...] last reviewed 2021. Blood 07/31/2022 5:30 AM PBX MANAGER 07/31/2022 5:51 AM PBX MANAGER Lizabeth Strong MD LAB BLOOD ORDERABLES Fin al Result [facility] Department [place] [address] * (ABNORMAL) Hemoglobin A1c (07/30/2022 10:23 PM PBX MANAGER) Hgb A1C 10.7(H) 4.0 - 5.6 % [facility] Estimated Average Glucose 260 mg/dL [facility] Comment: The ADA recommends reporting an estimated Average Glucose (eAG) with all Hemoglobin A1c results using the equation derived from a study of 507 normal and diabetic adults. Minority populations were underrepresented and children were not included. (Diabetes Care 2020; 43(S1): S66-S76). The eAG is not equivalent to a fasting glucose. Blood 07/30/2022 10:2 3 PM PBX MANAGER 07/30/2022 10:39 PM PBX MANAGER us Lizabeth Strong MD LAB BLOOD ORDERABLES Fin al Result [facility] Department [place] [address] * (ABNORMAL) Lipid panel (07/30/2022 10:23 PM PBX MANAGER) Cholesterol 167 30 - 199 mg/dL [facility] [...] on 2018. LDL, calculated 93 <=129 mg/dL [facility] Comment: Interpretive Data Ages < or [...] revised on 2018. Non-HDL Cholesterol 124 mg/dL [facility] Comment: Interpretive Data Ages < or [...] last revised on 2018. Chol/HDL ratio 4 [facility] Blood 07/30/2022 10:2 3 PM PBX MANAGER 07/30/2022 10:39 PM PBX MANAGER us Lizabeth Strong MD LAB BLOOD ORDERABLES Fin al Result [facility] Department [place] [address] from Last 3 Months or Most Recently Relevant to Health Maintenance Insurance [facility] Member Subscriber Plan / Payer (Ef fective 2020-Present) Name:Albaro Rodriguez Relation to Subscriber:Self Name:Albaro Rodriguez Payer ID:[id number] (NAIC) Type:MEDICAID RISK OTHER Address: [place] [address] [facility] Advance Directives For more information, please contact: [phone] * Full Code (Latest Code Status on File) Date Activated Date Inactivated Comments 07/30/2022 9:33 PM 07/31/2022 6:01 PM Care Teams Publisher Assistant Relationship Specialty Start Date End Date No, Physician PCP - General 07/30/22 Bunny Ramires MD 07/30/22
[2024-08-05 10:58] LABS: Add Urine Microscopic? YES; Appearance Urine Clear (Clear); Bacteria Urine None Seen /hpf; Bilirubin Urine Negative (Negative); Blood Urine Negative (Negative); Color Urine Yellow (Yellow); Glucose Urine UA Negative (Negative); Ketones Urine Trace mg/dL (Negative); Leukocyte Esterase Ur Negative LEU/UL (Negative); Nitrate Urine Negative (Negative); Non Pathogenic Casts 0-2; Protein Urine Trace mg/dL (Negative); RBC Urine 0-2 /hpf (0-2); Specific Grav Ur 1.012 (1.001-1.035); Squamous Epithelial Cell Urine None Seen /hpf (Few); Urobilinogen Urine 0.2 mg/dL (<2.0); WBC Urine 0-5 /hpf (0-3)
--- NOTE | 2024-08-05 11:52 | PCCCNOTE ---
1152-Spoke with the pt's daughter whom denied a sugar house supervisor to gain a status on the pt's and his medical care at home. Stated he has a development editor whom he was supposed to see this week. Pt does have a PCP as well. States he has his medication and takes it all as he is supposed to. Today they decided to bring him in because he had increased confusion, weakness, and elevated BP and Blood Glucose. Stated, I don't think he's on the right medication for his heart . Stated the pt did have home health after his last discharge, nursing from [facility] come to the home however the pt has since been discharged from services. Pt denied having any other questions at this time and is anxiously waiting the pt's diagnosis.-shaina
== END 2024-08-05 12:31 | disposition home or self-care (01) ==
PROVIDERS: Emergency Provider Physician Assistant; PCP Family Medicine Sports Medicine
DX: R53.1 Weakness (principal); Z20.822 Contact with and (suspected) exposure to COVID-19; I25.2 Old myocardial infarction; I25.5 Ischemic cardiomyopathy; I10 Essential (primary) hypertension; I25.10 Atherosclerotic heart disease of native coronary artery without angina pectoris; E11.9 Type 2 diabetes mellitus without complications; E78.5 Hyperlipidemia, unspecified; N40.0 Benign prostatic hyperplasia without lower urinary tract symptoms; Z79.4 Long term (current) use of insulin; Z79.82 Long term (current) use of aspirin; Z79.899 Other long term (current) drug therapy; I44.7 Left bundle-branch block, unspecified
CPT/HCPCS: 36415; 70450; 71046; 80053; 81001; 82948; 83880; 84484; 85025; 85610; 85730; 87637; 93005; 99284

== ENCOUNTER 2024-08-11 05:42 | Inpatient (IN) | payer OTHER, SELFPAY ==
[2024-08-11] VITALS (8 sets, daily range): BP systolic 120–151; BP diastolic 52–64; PULSE 51–78; RESP 16–20; TEMP 36.4–37.1; O2SAT 96–100; BMI 21.7
--- NOTE | ~2024-08-11 | CT_ITS ---
CTA brain carotid Ordering provider: Carrillo Ferrer MD History: . CVA . Comparison: August 11, 2024 Technique: CT angiogram head and neck was performed following timed intravenous injection of contrast . Thin slice axial images and reformatted coronal images were obtained. Three dimensional reformatted images of the brain were also obtained using a [employer] workstation. Radiation reduction technique ut ilized The dose-length product was 1628.45 mGy-cm. 100 ML Omnipaque 350 was given IV. FINDINGS: HEAD: --ANTERIOR AND MIDDLE CEREBRAL ARTERIES AND BRANCHES: The distal right MCA branches are less than the left side. Absent right A1 segment. --INTERNAL CAROTID ARTERIES: Bilateral atherosclerotic changes with Moderate to Severe narrowing of t he right carotid artery in the distal carotid canal, cavernous and supraclinoid carotid arteries. --BASILAR ARTERY AND BRANCHES: Narrowing of the basilar artery which is formed by the left vertebral artery. --POSTERIOR CEREBRAL ARTERIES: The left is also normal caliber and contour. The right distal branches is normal demonstrated which may indicate occlusion. --POSTERIOR COMMUNICATING ARTERIES: Not visualized which is probably related to congenital absence or small size. --ANEURYSM: None visualized. --BRAIN: Hypodensity in the right parietal/occipital area suggestive acute/subacute infarct unchanged from previous examination. Deep white matter ischemic changes. --BONES AND SUPERFICIAL SOFT TISSUES: Please refer to report of CT head performed the same day. --PARANASAL SINUSES AND MASTOIDS: Bilateral ethmoid sinus disease. Left maxillary sinus disease. NECK: --RIGHT CERVICAL CAROTID SYSTEM: Severe atheromatous disease of the carotid bulb and proximal interna l carotid artery. Percent stenosis per NASCET criteria is 100% in the proximal right internal caroti d artery --LEFT CERVICAL CAROTID SYSTEM: Moderate atheromatous disease of the carotid bulb and proximal tax intern al carotid artery. Percent stenosis per NASCET criteria is 60%. No carotid dissection. --VERTEBRAL ARTERIES: Dominant left vertebral artery. Normal caliber and contour. --VISUALIZED AORTIC ARCH AND BRANCHING VESSELS: Mild atheromatous disease but no significant stenosis . --SOFT TISSUES: Normal. --CERVICAL SPINE: Age appropriate degenerative changes. 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 Bilateral atherosclerotic changes of the carotid arteries. 60% narrowing of the left internal carotid artery. Reviewed, dictated and finalized at location A. IMPRESSION: Complete occlusion of the right internal carotid artery above the bifurcation o f the common carotid artery. Bilateral atherosclerotic changes of the carotid arteries. 60% narrowing of the left internal carotid artery.
--- NOTE | ~2024-08-11 | CT_ITS ---
CT brain wo con Ordering provider: Arnaldo Carrizales MD History: 74 years Male with . AMS . Comparison: August 05, 2024 Technique: CT of the head without contrast. Radiation reduction technique utilized.The dose-length product was 681 mGy-cm. FINDINGS: BRAIN PARENCHYMA AND CSF SPACES: Hypodensity seen in the right parietal area which is suggestive of a cute/subacute infarct. Old infarcts in the right frontoparietal area is also noted. Mild leukoaraiosi s and diffuse cortical atrophy. Mild atheromatous disease. No midline shift, mass effect or hemorrhag e. The brain parenchyma and CSF spaces are otherwise normal. VISUALIZED PARANASAL SINUSES: Well aerated. MASTOIDS: Well aerated. BONES: The bones appear intact. SOFT TISSUES: Visualized nasopharynx is normal. Superficial soft tissues are normal. IMPRESSION: Acute/subacute infarct in the right parietal area. MRI evaluation advised. Reviewed, dictated and finalized at location A.
--- NOTE | ~2024-08-11 | MR_ITS ---
EXAMINATION: MR brain/brain stem wo/w con DATE: 08/12/2024 10:32 INDICATION: Stroke TECHNIQUE: Magnetic resonance imaging (MRI) of the brain and brainstem was performed without and with 13 mL Multihance intravenous contrast. Sequences included sagittal and axial T1-weighted SE, axial d iffusion-weighted FS SE, axial 3D SWAN, axial T2-weighted FLAIR, and axial T2-weighted FSE. Postcontr ast axial and coronal T1-weighted SE was obtained. Apparent diffusion coefficient (ADC) maps were cre ated. COMPARISON: CT dated 08/11/2024 FINDINGS: Evaluation mildly limited by motion artifact on multiple sequences. Multiple regions of restricted di ffusion with increased T2 signal consistent with 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 The largest is located in the right parietal lobe near its junction with the temporal and occipital lobe s. Smaller regions are seen in the posterior right temporal lobe, the insula and right basal ganglia extending into the right frontal lobe mccann radiata. Small region of encephalomalacia consistent wit h chronic infarcts in the right parietal and occipital lobes. Additional small old lacunar infarct at the left basal ganglia. No intracranial hemorrhage or abnormal intracranial mass lesion. There are s cattered areas of nonspecific increased T2-weighted signal intensity in the cerebral white matter, pr edominantly involving the deep and periventricular white matter. There are no intraparenchymal signal abnormalities seen on the other pulse sequences. The ventricles are symmetric and normal in size. Th ere are no abnormal extra-axial fluid collections. Flow voids are seen in the central cerebral arteri es on the T2-weighted sequences consistent with their expected patency. Changes of bilateral intraocu lar lens replacement. Visualized orbits and soft tissues are otherwise unremarkable. There appears be subtle increased prominence of vascular enhancement in the region of the right parietal infarct sugg esting secondary luxury perfusion. There are no other areas of abnormal enhancement on the post contr ast images although sensitivity is decreased by the motion artifact.. IMPRESSION: 1. Evaluation mildly limited by motion artifact which affects most prominently the sensitivity on pos tcontrast imaging. 2. Multiple acute infarcts in the right cerebral hemisphere including the right frontal, parietal and posterior temporal lobes suggesting sharp emboli in the right middle cerebral artery vascular distri bution. 3. Additional chronic infarcts in the left basal ganglia and right parietal and occipital lobes. Reviewed, dictated and finalized at location A. IMPRESSION: 1. Evaluation mildly limited by motion artifact which affects most prominently the sensitivity on postcontrast imaging. 2. Multiple acute infarcts in the right cerebral hemisphere including the right frontal, parietal and posterior temporal lobes suggesting sharp emboli in the right middle cerebral artery vascular distribution. 3. Additional chronic infarcts in the left basal ganglia and right parietal and occipital lobes.
--- NOTE | ~2024-08-11 | US_ITS ---
LEFT UPPER EXTREMITY VENOUS ULTRASOUND Ordering provider: Ian Montesinos MD History: . ULE edema . Comparison: None. FINDINGS: --JUGULAR: Patent and free of thrombus. Normal compressibility, phasic flow and augmentation. --SUBCLAVIAN: Patent and free of thrombus. Normal compressibility, phasic flow and augmentation. --AXILLARY: Patent and free of thrombus. Normal compressibility, phasic flow and augmentation. --BRACHIAL: Patent and free of thrombus. Normal compressibility, phasic flow and augmentation. --CEPHALIC: Patent and free of thrombus. Normal compressibility, phasic flow and augmentation. --BASILIC: Patent and free of thrombus. Normal compressibility, phasic flow and augmentation. --RADIAL: Patent and free of thrombus. Normal compressibility, phasic flow and augmentation. --ULNAR: Patent and free of thrombus. Normal compressibility, phasic flow and augmentation. IMPRESSION: Negative left upper extremity venous US. No deep vein thrombosis. Reviewed, dictated and finalized at location A.
--- NOTE | ~2024-08-11 | XR_ITS ---
MODIFIED ESOPHAGRAM HISTORY: Failed bedside swallow study TECHNIQUE: Modified barium esophagram was performed on 08/12/2024. I administered fluoroscopy and perf ormed the exam with speech pathologist. Patient was seated for lateral fluoroscopic imaging for charity stion of thin liquids, pudding, solids and quantified amounts, followed by thin liquids in uncontroll ed amounts. This was recorded on tape. A single fluoroscopic spot image was also recorded. The DAP fo r this procedure was 2.1 Gycm2. The amount of fluoroscopy time used during this procedure was 3.1 min utes. FINDINGS: Oral stage: Adequate function. Pharyngeal stage: There is reduced laryngeal elevation and abduction. There is also reduced tongue ba se retraction. There is laryngeal penetration and aspiration. Cervical/esophageal stage: Adequate function. IMPRESSION: Pharyngeal dysphagia with laryngeal penetration and aspiration. Please correlate with sp eech pathologist findings and specific feeding recommendations. Reviewed, dictated and finalized at location A. IMPRESSION: Pharyngeal dysphagia with laryngeal penetration and aspiration. Pl ease correlate with speech pathologist findings and specific feeding recommenda tions.
--- NOTE | 2024-08-11 05:47 | ECG_ITS ---
Test Date: 2024-08-11 05:56:25 Measurements Intervals [place] Rate: 54 P: 34 WI: 183 QRS: 22 QRSD: 94 T: 169 QT: 494 QTc: 470 Interpretive Statements [address]US BR[address] DEVIATION AND T-WAVE ABNORMALITY, CONSIDER ISCHEMIA Electronically Signed On 08-11-2024 14:01:31 CDT by Jacques Harvey D.O
[2024-08-11 05:59] LABS: Basophils Absolute Auto 0.1 K/mm3 (0.0-0.1); Basophils Percent Auto 0.5 % (0.2-1.2); Eosinophils Absolute Auto 0.1 K/mm3 (0-0.3); Eosinophils Percent Auto 1.1 % (0-4.4); Hematocrit 37.5 % (42.0-52.0); Hemoglobin 11.9 g/dL (14.0-18.0); Immature Granulocyte Absolute 0.04 K/mm3 (0.00-0.031); Immature Granulocyte Percent A 0.4 % (0-0.5); Lymphocytes Absolute Auto 1.92 K/mm3 (0.9-3.2); Lymphocytes Percent Auto 18.5 % (18.3-44.2); Mean Corpuscular HGB Conc 31.7 g/dl (32-36); Mean Corpuscular Hemoglobin 28.5 pg (26-34); Mean Corpuscular Volume 89.9 fl (80-100); Monocytes Percent Auto 9.8 % (2.6-8.5); Neutrophils Absolute Auto 7.2 K/mm3 (1.3-6.7); Neutrophils Percent Auto 69.7 % (45.5-73.1); Platelet Count Result 220 k/mm3 (150-375); Red Blood Count 4.17 M/mm3 (4.6-6.20); Red Cell Distribution Width 15.5 % (11.5-14.5); White Blood Count 10.4 K/mm3 (4.5-10.0)
[2024-08-11 06:10] LABS: INR 1.1; Prothrombin Time 14.3 Seconds (11.1-14.7)
[2024-08-11 06:11] LABS: Partial Thromboplastin Time 22.6 Seconds (22.3-36.8)
[2024-08-11 06:21] LABS: Alanine Aminotransferase 28 U/L (6-50); Albumin Level 3.9 g/dL (3.5-5.1); Alkaline Phosphatase 80 U/L (38-126); Anion Gap 11 mmol/L (4-12); Aspartate Amino Transferase 34 U/L (17-59); Bilirubin,Total 1.6 mg/dL (0.2-1.3); Blood Urea Nitrogen 16 mg/dL (9-20); Calcium 8.6 mg/dL (8.4-10.2); Carbon Dioxide 23 mmol/L (22-30); Chloride 102 mmol/L (98-107); Estimated CRCL calculation 56 ml/min; Estimated Glomerular Filt Rate > 60; Glucose 185 mg/dL (65-110); Potassium 3.8 mmol/L (3.4-5.0); Sodium 136 mmol/L (137-145)
--- OUTSIDE RECORDS SUMMARY | 2024-08-11 06:59 | XMS_ITS | Referral Summary ---
Author Organization [facility] Address [address] [place] [address] Care Team Providers Care Lehr Operator Name Role Phone Unknown, Provider Primary Care Provider Donavon Holguin MD Unavailable [phone] Source Comments [facility],non-owned Affiliates and Associated Physician Practices is amultiple site organization consisting of ambulatory clinics and hospital sitesin [place], [place], [place] and [place]. This disclosure is being madepursuant to the Care Everywhere program and may not contain all information available regarding this patient. Last updated 18.[facility] Allergies Active Allergy Reactions Criticality [...] tablet 01/01/2023 Active Blood Glucose Monitoring Suppl (Genecure Verio Flex System) w/Device KIT USE DIRECTED THREE TIMES DAILY 01/01/2023 Active erythromycin (Romycin) 5 MG/GM ophthalmic ointment 03/23/2023 Active Giftbaruch Ultra test strip USE TO TEST FOUR TIMES DAILY 03/27/2023 Active TRUEplus 5-Bevel Pen Mimbres 32G X 4 MM MISC USE TO INJECT INSULIN UP TO 5 TIMES DAILY 07/11/2023 Active TRUEplus Insulin Syringe 30G X 5/16 0.5 ML MISC USE DIRECTED EVERY DAY 01/01/2023 Active Lancets (OmniEarthTOUCH DELICA PLUS 33G EXTRA FINE LANCET) TEST [...] original. Could not [facility] afford to provide a Home Health nurse [...] Follow up in: three months with PCP, Tree Surgeon, Silviculture Forester, 3D Animator, Established eye youth care worker and Block Chopper Hand Last Assessment & Plan: Not on any [...] Follow up in: three months with PCP, Tree Surgeon, Silviculture Forester, 3D Animator, Established eye youth care worker and Block Chopper Hand Infected wound 04/12/2020 Sacral wound 02/19/2020 Urinary [...] Description 11/27/2024 10:30 AM CDT Office Visit [facility] - Ophthalmology [address] [place] [address] Medical Devices Implanted Type Area Retail Branch Manager Device Identifier Shelf Expiration Date Model / Serial / Lot Gd Pin Orth 450mm 3.2mm Cocr Xtd Acc Implanted:Qty: 1 on 01/31/2020 by Dipesh Felix MD at [facility] Right: Sacral Iliac Joint [employer] [id number] / / Wshr 12.7mm 6.5mm Set Unv Orth Ss 1mm Implanted:Qty: 1 on 01/31/2020 by Dipesh Felix MD at [facility] Right: Sacral Iliac Joint [employer] [id number] / / Cannulated Screw, 4.0mm X40mm 1/2 Thread Implanted:Qty: 2 on 01/31/2020 by Dipesh Felix MD at [facility] Right: Ankle [id number] / / 8.0 X 9.5 Fully Threaded Screw Implanted:Qty: 1 on 01/31/2020 by Dipesh Felix MD at [facility] [id number] / / Plate 8 Hl Unv Matrixrib Ti Bone Nonster Implanted:Qty: 5 on 02/05/2020 by Dipesh Hernandez MD at [facility] Right: Chest Wall [employer] .009 / / 2.7 Mm Matrixrib Locking Screw, Self-Drilling, 11mm Implanted:Qty: 35 on 02/05/2020 by Dipesh Hernandez MD at [facility] Right: Chest Wall [id number] 1 / / 2.7 Mm Matrixrib Locking Screw, Self-Drilling, 12mm Implanted:Qty: 2 on 02/05/2020 by Dipesh Hernandez MD at [facility] Right: Chest Wall [id number] 1 / / Plate 16 Hl Precontr Lck Lopro 4th Rb Implanted:Qty: 1 on 02/05/2020 by Dipesh Hernandez MD at [facility] Right: Chest Wall [employer] [id number] / / Clareon Uv Iol Ccaoto +23.0d Implanted:Qty: 1 on 09/28/2023 by Simeon Cannon MD at [facility] Left: Eye [employer] 02/20/2027 CCAOTO+23.0D / [id number] / N/A [employer] Iol Aspheric Uv Absorbing Iol Implanted:Qty: 1 on 10/12/2023 by Simeon Cannon MD at [facility] Right: Eye [employer] 02/18/2027 CCA0T0 +23.5D / [id number] / NA Procedures Procedure Name Priority Date/Time Associated Diagnosis Comments COMPREHENSIVE METABOLIC PANEL STAT 06/30/2020 2:29 PM WIRELESS CONSULTANT HEMOGLOBIN A1C Routine 04/18/2020 11:09 AM WIRELESS CONSULTANT from Last 3 Months or Most Recently Relevant to Health Maintenance Results * (ABNORMAL) COMPREHENSIVE METABOLIC PANEL (06/30/2020 2:29 PM WIRELESS CONSULTANT) BUN 29(H) 7 - 26 mg/dL 06/30/2020 3:00 PM [facility] Creatinine 1.2 0.6 - 1.2 mg/dL 06/30/2020 3:00 PM [facility] Sodium 138 136 - 145 mmol/L 06/30/2020 3:00 PM [facility] Potassium 3.7 3.5 - 4.5 mmol/L 06/30/2020 3:00 PM [facility] Chloride 96(L) 98 - 107 mmol/L 06/30/2020 3:00 PM [facility] CO2 28 22 - 29 mmol/L 06/30/2020 3:00 PM [facility] Glucose 144(H) 70 - 115 mg/dL 06/30/2020 3:00 PM [facility] Calcium 8.8 8.4 - [...] Unknown Venipuncture / Unknown 06/30/2020 2:29 PM WIRELESS CONSULTANT 06/30/2020 2:37 PM [facility] Shaggy James MD LAB - CHEMISTRY KATHY [facility] [address] [place] [address] [phone] * (ABNORMAL) HEMOGLOBIN A1C (04/18/2020 11:09 AM [facility]) Hemoglobin A1c 7.6(H) 4.4 - 6.3 % 04/19/2020 9:00 AM [facility] Estimated Average Glucose 171 mg/dL 04/19/2020 9:00 AM [facility] Comment: HbA1c Interpretation: Treatment target values recommended by ADA and other clinical organizations should be used to evaluate metabolic control in patients. Treatment Target Values: Normal : < 5.7% Pre-diabetes: 5.7-6.4% Diabetes: Equal to or greater than 6.5% Reference: [place] Diabetes Association Standards of Care in Diabetes -2014 In patients 70 years and older consider HbA1c target range of 7.0-7.5% Reference: Diabetes Mellitus in Older People: Position Statement on behalf of the International Association of Gerontology and Geriatrics (IAGG), the Diabetes Working Democrat for Older People (EDWPOP), and the International Task Force of Experts in Diabetes. Ritesh Srinivasan, et al. J [place] Medical Directors Association. 2012 Test results diagnostic of diabetes should be repeated for confirmation. The Sebia Capillary 2 assay for the measurement of HbA1c is a National Glycohemoglobin Standardization Program (NGSP)certified method. Blood BLOOD SPECIMEN / Unknown Lab Venipuncture / Unknown 04/18/2020 11:09 AM WIRELESS CONSULTANT 04/18/2020 11:40 AM WIRELESS CONSULTANT Narrative [facility] - 04/19/2020 9:00 AM WIRELESS CONSULTANT note^note Zhane Granger MD LAB - CHEMISTRY OR DERABLES [facility] [address] [place] [address], [facility] [phone] from Last 3 Months or Most Recently [...] 3:26 PM 02/19/2020 5:52 PM Care Teams Lehr Operator Relationship Specialty Start Date End Date Unknown, Provider PCP - General 08/30/23 Donavon Connor MD Family Medicine 08/30/23
--- OUTSIDE RECORDS SUMMARY | 2024-08-11 07:00 | XMS_ITS | Referral Summary ---
Author Organization [facility] Address [address] [place] [address] Care Team Providers Care Pbx Wire Chief Name Role Phone No, Physician Primary Care Provider [phone] Bunny Ramires MD Unavailable [phone] Encounters Date Type Department Care Team Description 07/29/2024 Orders Only [facility] Cardiology [address] [place] [address] [address] [place] [address] [phone] Gerhard Ratliff MD 07/15/2024 Telephone [facility] Cardiology [address] [place] [address] [place] [phone] Gina Link MD 07/08/2024 2:00 PM BARN HAND Office Visit [facility] Cardiology [address] [place] [address] [address] [place] [phone] Gina Link MD Hypertension associated with diabetes (HCC) (Primary Dx); 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; Cardiomyopathy, ischemic 07/02/2024 Orders Only [facility] Cardiology [address] [place] [phone] Gerhard Ratliff MD 06/29/2024 Orders Only [facility] [address] [place] [address] Allegra Shin MD 06/26/2024 Orders Only [facility] Cardiology [address] [place] [address] Peyton De Guzman MD from [...] Cardiomyopathy, ischemic 07/22/2024 Coronary artery disease involving chipewwa heart 0 07/15/2024 Constipation, unspecified constipation type 08/2022 Assessment & Plan (07/31/2022 11:22 AM BARN HAND): No symptoms or signs of mechanical obstruction. [...] 07/30/2022 Assessment & Plan (07/31/2022 11:21 AM BARN HAND): On metformin 500 mg twice daily at [...] 07/30/2022 Assessment & Plan (07/31/2022 10:46 AM BARN HAND): Not on any treatment at home. BP well controlled, CTM and add medications if needed Benign prostatic hyperplasia without lower urinary tract symptoms 07/30/2022 Assessment & Plan (07/31/2022 10:44 AM BARN HAND): Patient was recently started on Flomax and finasteride at OSH. Patients son reported patient was experiencing difficulty urinating - continue home meds and pcp follow up for further management Stage 3a chronic kidney disease 07/30/2022 Assessment & Plan (07/31/2022 10:48 AM BARN HAND): Creatinine is 1.48, up from the most [...] on file Legal Sex Male 5:44 AM BARN HAND Gender Identity Not on file Sexual Orientation Not on file Last Filed Vital Signs Vital Sign Reading Time Taken Comments Blood Pressure 116/60 07/08/2024 1:05 PM BARN HAND Pulse 88 07/08/2024 1:05 PM BARN HAND Temperature 36.5 C (97.7 F) 07/31/2022 8:00 AM BARN HAND Respiratory Rate 16 07/31/2022 7:55 AM BARN HAND Oxygen Saturation 99% 07/08/2024 1:05 PM BARN HAND Inhaled Oxygen Concentration - - Weight 67.9 kg (149 lb 9.6 oz) 07/08/2024 1:05 P M BARN HAND Height 162.6 cm (5' 4 ) 07/08/2024 1:05 PM BARN HAND Body Mass Index 25.68 07/08/2024 1:05 PM BARN HAND Plan of Treatment Not on file Procedures Procedure Name Priority Date/Time Associated Diagnosis Comments CARDIOLOGY DOCUMENT SCAN Routine 07/19/2024 3:34 PM BARN HAND CARDIOLOGY DOCUMENT SCAN Routine 07/18/2024 2:33 PM BARN HAND CARDIOLOGY DOCUMENT SCAN Routine 07/18/2024 2:12 PM BARN HAND CARDIOLOGY DOCUMENT SCAN Routine 07/01/2024 3:53 PM BARN HAND CARDIOLOGY DOCUMENT SCAN Routine 06/30/2024 3:49 PM BARN HAND CARDIOLOGY DOCUMENT SCAN Routine 06/29/2024 3:44 PM BARN HAND SCAN - RADIOLOGY/IMAGING 06/29/2024 CARDIOLOGY DOCUMENT SCAN Routine 06/28/2024 3:37 PM BARN HAND CARDIOLOGY DOCUMENT SCAN Routine 06/27/2024 3:32 PM BARN HAND CARDIOLOGY DOCUMENT SCAN Routine 06/26/2024 3:20 PM BARN HAND CARDIOLOGY DOCUMENT SCAN Routine 06/24/2024 3:16 PM BARN HAND CARDIOLOGY DOCUMENT SCAN Routine 06/23/2024 3:10 PM BARN HAND CARDIOLOGY DOCUMENT SCAN Routine 06/22/2024 3:04 PM BARN HAND CARDIOLOGY DOCUMENT SCAN Routine 06/22/2024 3:03 PM BARN HAND CARDIOLOGY DOCUMENT SCAN Routine 06/22/2024 3:00 PM BARN HAND EGFR Routine 07/31/2022 5:30 AM BARN HAND HEMOGLOBIN A1C Routine 07/30/2022 10:23 PM BARN HAND LIPID PANEL Routine 07/30/2022 10:23 PM BARN HAND from Last 3 Months or Most Recently Relevant to Health Maintenance Results * Cardiology Document Scan (07/19/2024 3:34 PM BARN HAND) Anatomical Region Laterality Modality Other Result David Shin MD [facility] CARDIAC SERVICES PRO CEDURES Final Result * Cardiology Document Scan (07/18/2024 2:33 PM BARN HAND) Anatomical Region Laterality Modality Other Result David Ratliff MD CV CARDIAC SERVICES PROCEDURES F inal Result * Cardiology Document Scan (07/18/2024 2:12 PM BARN HAND) Anatomical Region Laterality Modality Other Result David Ratliff MD CV CARDIAC SERVICES PROCEDURES F inal Result * Cardiology Document Scan (07/01/2024 3:53 PM BARN HAND) Anatomical Region Laterality Modality Other Result David Ratliff MD CV CARDIAC SERVICES PROCEDURES F inal Result * Cardiology Document Scan (06/30/2024 3:49 PM BARN HAND) Anatomical Region Laterality Modality Other Result David Shin MD CV CARDIAC SERVICES PRO CEDURES Final Result * Cardiology Document Scan (06/29/2024 3:44 PM BARN HAND) Anatomical Region Laterality Modality Other Result David Shin MD CV CARDIAC SERVICES PRO CEDURES Final Result * SCAN - RADIOLOGY/IMAGING (06/29/2024) Anatomical Region Laterality Modality Other Result David Shin MD Final R esult * Cardiology Document Scan (06/28/2024 3:37 PM BARN HAND) Anatomical Region Laterality Modality Other Result David Shin MD CV CARDIAC SERVICES PRO CEDURES Final Result * Cardiology Document Scan (06/27/2024 3:32 PM BARN HAND) Anatomical Region Laterality Modality Other us Gerhard Ratliff MD CV CARDIAC SERVICES PROCEDURES F inal Result * Cardiology Document Scan (06/26/2024 3:20 PM BARN HAND) Anatomical Region Laterality Modality Other Result David Shin MD CV CARDIAC SERVICES PRO CEDURES Final Result * Cardiology Document Scan (06/24/2024 3:16 PM BARN HAND) Anatomical Region Laterality Modality Other Result David Allegra Shin MD CV CARDIAC SERVICES PRO CEDURES Final Result * Cardiology Document Scan (06/23/2024 3:10 PM BARN HAND) Anatomical Region Laterality Modality Other Result David De Guzman MD CV CARDIAC SERVICES PROCEDU RES Final Result * Cardiology Document Scan (06/22/2024 3:04 PM BARN HAND) Anatomical Region Laterality Modality Other Result David De Guzman MD CV CARDIAC SERVICES PROCEDU RES Final Result * Cardiology Document Scan (06/22/2024 3:03 PM BARN HAND) Anatomical Region Laterality Modality Other Result David De Guzman MD CV CARDIAC SERVICES PROCEDU RES Final Result * Cardiology Document Scan (06/22/2024 3:00 PM BARN HAND) Anatomical Region Laterality Modality Other Result David De Guzman MD CV CARDIAC SERVICES PROCEDU RES Final Result * (ABNORMAL) eGFR (07/31/2022 5:30 AM BARN HAND) eGFR 54(L) 90 - 130 mL/min/1. 73 m2 [facility] Comment: Interpretive Data Reference Interval Normal >/= [...] last reviewed 2021. Blood 07/31/2022 5:30 AM BARN HAND 07/31/2022 5:51 AM BARN HAND Lizabeth Strong MD LAB BLOOD ORDERABLES Fin al Result [facility] Department [place] [address] * (ABNORMAL) Hemoglobin A1c (07/30/2022 10:23 PM BARN HAND) Hgb A1C 10.7(H) 4.0 - 5.6 % [facility] Estimated Average Glucose 260 mg/dL [facility] Comment: The ADA recommends reporting an estimated Average Glucose (eAG) with all Hemoglobin A1c results using the equation derived from a study of 507 normal and diabetic adults. Minority populations were underrepresented and children were not included. (Diabetes Care 2020; 43(S1): S66-S76). The eAG is not equivalent to a fasting glucose. Blood 07/30/2022 10:2 3 PM BARN HAND 07/30/2022 10:39 PM BARN HAND us Lizabeth Strong MD LAB BLOOD ORDERABLES Fin al Result [facility] Department [place] [address] * (ABNORMAL) Lipid panel (07/30/2022 10:23 PM BARN HAND) Cholesterol 167 30 - 199 mg/dL [facility] [...] on 2018. LDL, calculated 93 <=129 mg/dL [facility] Comment: Interpretive Data Ages < or = [...] on 2018. Non-HDL Cholesterol 124 mg/dL [facility] Comment: Interpretive Data Ages < or = [...] last revised on 2018. Chol/HDL ratio 4 [facility] Blood 07/30/2022 10:2 3 PM BARN HAND 07/30/2022 10:39 PM BARN HAND us Lizabeth Strong MD LAB BLOOD ORDERABLES Fin al Result [facility] [place] [address] from Last 3 Months or Most Recently Relevant to Health Maintenance Insurance [facility] Member Subscriber Plan / Payer (Ef fective 2020-Present) Name:Albaro Rodriguez Relation to Subscriber:Self Name:Albaro Rodriguez Payer ID:[id number] (NAIC) Type:MEDICAID RISK OTHER Address: [place] [address] [facility] Advance Directives For more information, please contact: [phone] * Full Code (Latest Code Status on File) Date Activated Date Inactivated Comments 07/30/2022 9:33 PM 07/31/2022 6:01 PM Care Teams Pbx Wire Chief Relationship Specialty Start Date End Date No, Physician PCP - General 07/30/22 Bunny Ramires MD 07/30/22
--- OUTSIDE RECORDS SUMMARY | 2024-08-11 07:00 | XMS_ITS | Patient Health Summary ---
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 Equal to or greater than 6.5% Reference: [place] [employer] Standards of Care in Diabetes -2014 In patients 70 years and older consider HbA1c target range of 7.0-7.5% Reference: Diabetes Mellitus in Older People: Position Statement on behalf of the International Association of Gerontology and Geriatrics (IAGG), the Diabetes Working Alliance Party for Older People (EDWPOP), and the International Task Force of Experts in Diabetes. Ritesh Srinivasan et al. J [place] [employer]. 2012 Test results diagnostic of diabetes should be repeated for confirmation. The Sebia Capillary 2 assay for the measurement of HbA1c is a National Glycohemoglobin Standardization Program (NGSP)certified method. Blood BLOOD SPECIMEN / Unknown Lab Venipuncture / Unknown 04/18/2020 11:09 AM SILVER WRAPPER 04/18/2020 11:40 AM SILVER WRAPPER Narrative [facility] - 04/19/2020 9:00 AM SILVER WRAPPER note^note Zhane Granger MD LAB - CHEMISTRY OR DERABLES Performing Organization Address City/[facility]/ZIP Co de Phone Number [address] [address], [facility] [phone] * FOLATE (04/18/2020 11:09 AM SILVER WRAPPER) Folate 10.4 7.0 - 31.4 ng/mL 04/18/2020 12:39 PM SILVER WRAPPER [facility] Blood BLOOD SPECIMEN / Unknown Lab Venipuncture / Unknown 04/18/2020 11:09 AM SILVER WRAPPER 04/18/2020 11:40 AM SILVER WRAPPER Zhane Granger MD LAB - CHEMISTRY OR DERABLES Performing Organization Address City/[facility]/ZIP Co de Phone Number [address] [address], [place] [phone] * VITAMIN B12 (04/18/2020 11:09 AM SILVER WRAPPER) Only the most recent of2 resultswithin the time period is included. Vitamin B12 239 213 - 816 pg/mL 04/18/2020 12:39 PM SILVER WRAPPER [facility] Blood BLOOD SPECIMEN / Unknown Lab Venipuncture / Unknown 04/18/2020 11:09 AM SILVER WRAPPER 04/18/2020 11:40 AM SILVER WRAPPER Zhane Granger MD LAB - CHEMISTRY OR DERABLES Performing Organization Address City/[facility]/ZIP Co de Phone Number [address] [id number] [phone] * XR CHEST 1VW PORTABLE (04/18/2020 5:50 AM SILVER WRAPPER) Only the most recent of18 resultswithin the time period is included. Anatomical Region Laterality Modality Chest Radiographic Tavon ging 04/18/2020 10:3 0 AM SILVER WRAPPER Impressions 04/19/2020 12:14 PM SILVER WRAPPER FINDINGS/IMPRESSION: There is redemonstrated internal fixation of multiple right rib fractures. The lungs are hypoinflated with bronchovascular crowding. There is no focal consolidation, pleural effusion, or pneumothorax. The cardiomediastinal silhouette is normal. Displaced fractures of the left clavicle and multiple left ribs are grossly unchanged in osseous alignment. Dictated by Lobito Han MD (residential service technician). Dr. CHRISTINA Bahena have personally reviewed and interpreted this examination/study. This report was electronically signed by CHRISTINA HERNANDEZ on 04/19/2020 12:14 PM . Narrative 04/19/2020 12:14 PM SILVER WRAPPER EXAMINATION: XR CHEST 1VW PORTABLE HISTORY: T14.8XXA: [...] alignment. Dictated by Lobito Han MD (residential service technician). Dr. CHRISTINA Bahena have personally reviewed and interpreted this examination/study. This report was electronically signed by CHRISTINA HERNANDEZ on 04/19/2020 12:14 PM . Chad Rocha MD DIAGNOSTIC IMAGING O RDERABLES * (ABNORMAL) URINALYSIS W/MICROSCOPIC NO CULTURE (04/18/2020 5:46 AM SILVER WRAPPER) Only the most recent of4 resultswithin the time period is included. Color UA Straw Straw, Yellow, Colorless 04/18/2020 6:23 AM [facility] Clarity UA Clear Clear, Slt Cloudy 04/18/2020 6:23 AM [facility] Specific [place] UA 1.008 1.005 - 1.030 04/18/2020 6:23 AM [facility] pH UA 7.0 5.0 - 8.0 pH 04/18/2020 6:23 AM [facility] Protein UA Negative Negative mg/dL 04/18/2020 6:23 AM [facility] Glucose UA 1+(A) Negative mg/dL 04/18/2020 6:23 AM [facility] Ketone UA Negative Negative mg/dL 04/18/2020 6:23 AM [facility] Bilirubin UA Negative Negative mg/dL 04/18/2020 6:23 AM [facility] Blood UA Negative Negative 04/18/2020 6:23 AM [facility] Nitrite UA Negative Negative 04/18/2020 6:23 AM [facility] Leukocyte Esterase Negative Negative 04/18/2020 6:23 AM [facility] Urobilinogen UA Negative Negative mg/dL 04/18/2020 6:23 AM [facility] RBC UA None Seen None Seen, 0-2, 3-5 /HPF 04/18/2020 6:23 AM [facility] WBC UA None Seen None Seen, 0-5 /HPF 04/18/2020 6:23 AM [facility] Squamous Epithelial Cells UA None Seen None Seen, 0-2 /HPF 04/18/2020 6:23 AM [facility] Urine URINE SPECIMEN OBTAINED BY CLEAN CATCH PROCEDURE / Unknown Collection / Unknown 04/18/2020 5:46 AM SILVER WRAPPER 04/18/2020 6:03 AM [facility] - 04/18/2020 6:23 AM SILVER WRAPPER note^note Chad Rocha MD LAB - URINALYSIS ORD ERABLES Performing Organization Address [facility]/ZIP Co de Phone Number [address] [address], [facility] [phone] * PTT [facility] (04/17/2020 11:38 PM SILVER WRAPPER) Only the most recent of19 resultswithin the time period is included. APTT 26.4 23.0 - 38.4 Seconds 04/18/2020 12:07 AM [facility] Comment:Suggested therapeuti c range for full dose I.V. unfractionated heparin therapy for venous thromboembolism is 71 to 109 seconds. Blood BLOOD SPECIMEN / Unknown Lab Venipuncture / Unknown 04/17/2020 11:38 PM SILVER WRAPPER 04/17/2020 11:59 PM [facility] - 04/18/2020 12:07 AM SILVER WRAPPER note^note Chad Rocha MD LAB - COAGULATION OR DERABLES Performing Organization Address [facility] Co de Phone Number [address] [address], [facility] [phone] * PT-INR [facility] (04/17/2020 11:38 PM SILVER WRAPPER) Only the most recent of8 resultswithin the time period is included. PT 12.8 12.1 - 14.8 Seconds 04/18/2020 12:06 AM [facility] INR 1.0 See Comment 04/18/2020 12:06 AM [facility] Comment:The suggested therap eutic range for standard coumadin (warfarin) therapy is an INR of 2.0-3.0. For high-risk patients (Mechanical Mitral Valve Prosthesis, etc.), the suggested prophylactic therapeutic range is an INR of 2.5-3.5. Blood BLOOD SPECIMEN / Unknown Lab Venipuncture / Unknown 04/17/2020 11:38 PM SILVER WRAPPER 04/17/2020 11:59 PM [facility] - 04/18/2020 12:06 AM SILVER WRAPPER note^note Chad Rocha MD LAB - COAGULATION OR DERABLES Performing Organization Address City/[facility]/ZIP Co de Phone Number [address] [address], [place] [phone] * TROPONIN I (04/17/2020 11:38 PM SILVER WRAPPER) Only the most recent of3 resultswithin the time period is included. Troponin I <0.010 <0.032 ng/mL 04/18/2020 12:26 AM SILVER WRAPPER [facility] Blood BLOOD SPECIMEN / Unknown Lab Venipuncture / Unknown 04/17/2020 11:38 PM SILVER WRAPPER 04/17/2020 6:15 PM SILVER WRAPPER Chad Rocha MD LAB - CHEMISTRY KATHY CAMPA Performing Organization Address City/[facility] Co de Phone Number [address] [address], [facility] [phone] * LACTIC ACID BLOOD (04/17/2020 11:38 PM SILVER WRAPPER) Only the most recent of2 resultswithin the time period is included. Pathologist [facility] Lactic Acid-Stat 1.9 0.5 - 2.2 mmol/L 04/18/2020 12:18 AM SILVER WRAPPER [facility] Blood BLOOD SPECIMEN / Unknown Lab Venipuncture / Unknown 04/17/2020 11:38 PM SILVER WRAPPER 04/17/2020 6:15 PM SILVER WRAPPER Chad Rocha MD LAB - CHEMISTRY KATHY CAMPA [address] [address], [place] [phone] * (ABNORMAL) C DIFFICILE GD AG + TOXIN A+B (03/21/2020 12:42 PM CDT) Interpretation C difficile Indeterm inate(A) Negative for toxigenic C. difficile 03/21/2020 8:57 PM CDT [facility] MICROBIOLOG[facility] Stool STOOL SPECIMEN / Unknown Collection / Unknown 03/21/2020 12:42 PM CDT 03/21/2020 12:55 PM CDT Narrative [facility] MICROBIOLOG[facility] - 03/21/2020 8:57 PM CDT Indeterminate results reflex to a C. difficile by PCR test. See separate report. Maycol Matthews MD LAB - MICROBIOLOGY O PEMA Performing Organization Address City/[facility]/ZIP Co de Phone Number [facility]CRO[facility] [address] [place] [address], [facility] [phone] * (ABNORMAL) C DIFFICILE BY PCR (03/21/2020 12:42 PM CDT) C difficile Toxin B Gene Detected( A) Not detected, Invalid 03/22/2020 6:19 PM CDT [facility]CROBIOLOG[facility] Stool STOOL SPECIMEN / Unknown Collection / Unknown 03/21/2020 12:42 PM CDT 03/21/2020 12:55 PM CDT Maycol Matthews MD LAB - MICROBIOLOGY O PEMA Performing Organization Address [facility]/ZIP Co de Phone Number [facility]CROBIOLOG[facility] [address] [place] [address], [facility] [phone] * CT ABDOMEN PELVIS WO CONTRAST (03/19/2020 [...] Report dictated by Nicolás Kingston MD (residential service technician). I, Dr. KAYLENE CAO M.D. have [...] Report dictated by Nicolás Kingston MD (residential service technician). Dr. KAYLENE Bahena M.D. have personally [...] Not Established mmol/L 03/16/2020 12:02 PM CDT [facility] Urine URINE SPECIMEN OBTAINED BY CLEAN CATCH PROCEDURE / Unknown Collection / Unknown 03/16/2020 11:35 AM CDT 03/16/2020 11:46 AM CDT Maycol Matthews MD LAB - URINE CHEMISTR Y ORDERABLES [address] [address], [facility] [phone] * UREA NITROGEN URINE RANDOM (03/16/2020 11:35 AM CDT) Urea Nitrogen Random Urine 396 Not Established mg/dL 03/16/2020 12:02 PM CDT [facility] Urine URINE SPECIMEN OBTAINED BY CLEAN CATCH PROCEDURE / Unknown Collection / Unknown 03/16/2020 11:35 AM CDT 03/16/2020 11:46 AM CDT Maycol Matthews MD LAB - URINE CHEMISTR Y ORDERABLES Performing Organization Address [facility]/ZIP Co de Phone Number [address] [address], [place] [phone] * CREATININE URINE RANDOM (03/16/2020 11:35 AM CDT) Creatinine Urine 60 Not Established mg/dL 03/16/2020 12:02 PM CDT [facility] Comment:Result obtained by magui tellez. Urine URINE SPECIMEN OBTAINED BY CLEAN CATCH PROCEDURE / Unknown Collection / Unknown 03/16/2020 11:35 AM CDT 03/16/2020 11:46 AM CDT Maycol Matthews MD LAB - URINE CHEMISTR Y ORDERABLES Performing Organization Address [facility] Co de Phone Number [address] [address], [place] [phone] * CULTURE URINE (03/15/2020 4:57 PM CDT) Only the most recent of4 resultswithin the time period is included. Culture Urine No growth (<100 CFU/mL) CANDACE 03/17/2020 1:20 AM CDT [facility] MICROBIOLOG[facility] Urine URINE SPECIMEN OBTAINED VIA INDWELLING URINARY CATHETER / Unknown Collection / Unknown 03/15/2020 4:57 PM CDT 03/15/2020 6:02 PM CDT Geoffrey Rogers MD LAB - MICROBIOLOGY O RDERABLES Performing Organization Address City/[facility]/ZIP Co de Phone Number [facility]CRO[facility] [address] [place] [address], [facility] [phone] * (ABNORMAL) URINALYSIS REFLEX TO MICROSCOPIC NO CULTURE (03/15/2020 1:28 PM CDT) Color UA Deana(A) Straw, Yellow, Colorless 03/15/2020 2:11 PM [facility] Clarity UA Turbid(A) Clear, Slt Cloudy 03/15/2020 2:11 PM [facility] Specific [place] UA 1.023 1.005 - 1.030 03/15/2020 2:11 PM [facility] pH UA 5.0 5.0 - 8.0 pH 03/15/2020 2:11 PM [facility] Protein UA 2+(A) Negative mg/dL 03/15/2020 2:11 PM [facility] Glucose UA Negative Negative mg/dL 03/15/2020 2:11 PM [facility] Ketone UA Trace(A) Negative mg/dL 03/15/2020 2:11 PM [facility] Bilirubin UA Negative Negative mg/dL 03/15/2020 2:11 PM [facility] Blood UA 3+(A) Negative 03/15/2020 2:11 PM [facility] Nitrite UA Negative Negative 03/15/2020 2:11 PM [facility] Leukocyte Esterase 3+(A) Negative 03/15/2020 2:11 PM [facility] Urobilinogen UA Negative Negative mg/dL 03/15/2020 2:11 PM [facility] RBC UA >100(A) None Seen, 0-2, 3-5 /HPF 03/15/2020 2:11 PM [facility] WBC UA >100(A) None Seen, 0-5 /HPF 03/15/2020 2:11 PM [facility] WBC Clumps Many(A) None /HPF 03/15/2020 2:11 PM [facility] Bacteria UA 1+(A) None, Trace /HPF 03/15/2020 2:11 PM [facility] Squamous Epithelial Cells UA None Seen None Seen, 0-2 /HPF 03/15/2020 2:11 PM [facility] Mucus UA 1+ None, 1+ /LPF 03/15/2020 2:11 PM CDT [facility] Amorphous Crystals Many(A) Rare, Occasional, Few, Moderate, None /HPF 03/15/2020 2:11 PM CDT [facility] Urine URINE SPECIMEN OBTAINED VIA INDWELLING URINARY CATHETER / Unknown Collection / Unknown 03/15/2020 1:28 PM CDT 03/15/2020 1:34 PM CDT Narrative [facility] - 03/15/2020 2:11 PM CDT Geoffrey Rogers MD LAB - URINALYSIS ORD ERABLES [address] [address], [facility] [phone] * HIV-1 HIV-2 ANTIGEN/ANTIBODY (03/03/2020 5:25 AM CDT) HIV Antigen/Antibod y 1 & 2 Non-reacti ve Non-react tristan 03/03/2020 2:42 PM CDT [facility] Comment:Neither HIV-1 p24 An tigen nor HIV-1/HIV-2 Antibodies are detected. Blood BLOOD SPECIMEN / Unknown Lab Venipuncture / Unknown 03/03/2020 5:25 AM CDT 03/03/2020 2:10 PM CDT Geoffrey Rogers MD LAB - HEMATOLOGY ORD ERABLES Performing Organization Address City/[facility]/ZIP Co de Phone Number [address] [address], [facility] [phone] * VANCOMYCIN LEVEL RANDOM (03/03/2020 5:25 AM CDT) Only the most recent of4 resultswithin the time period is included. Vancomycin Random 17.9 Therapeutic Ranges not established for random specimens mcg/mL 03/03/2020 6:23 AM CDT [facility] Blood BLOOD SPECIMEN / Unknown Lab Venipuncture / Unknown 03/03/2020 5:25 AM CDT 03/03/2020 5:52 AM CDT Christina Briseno DO LAB - CHEMISTRY ORDE KATHERYN Performing Organization Address [facility] Co de Phone Number [address] [address], [place] [phone] * (ABNORMAL) IRON BLOOD (03/02/2020 2:52 AM CDT) Iron 29(L) 50 - 175 mcg/dL 03/02/2020 3:45 AM CDT [facility] Blood BLOOD SPECIMEN / Unknown Venipuncture / Unknown 03/02/2020 2:52 AM CDT 03/02/2020 3:28 AM CDT Karyna Marshall DO LAB - CHEMISTRY ORDKaren CAMPA Performing Organization Address [facility] Co de Phone Number [address] [address], [place] [phone] * (ABNORMAL) FERRITIN (03/02/2020 2:52 AM CDT) Ferritin 443(H) 22 - 275 ng/mL 03/02/2020 4:03 AM CDT [facility] Blood BLOOD SPECIMEN / Unknown Venipuncture / Unknown 03/02/2020 2:52 AM CDT 03/02/2020 3:28 AM CDT Karyna Marshall DO LAB - CHEMISTRY KATHY CAMPA Performing Organization Address [facility] Co de Phone Number [address] [address], [place] [phone] * ETT LINE PERFORMABLE (02/28/2020 10:30 PM CDT) Narrative Amina Frank - 02/28/2020 10:30 PM CDT Amina Frank MD 02/28/2020 10:30 PM Endotracheal Tube Placement: Patient Location: OR. Procedure: intubation ([id number]). Procedure Section: Sedation: under general anesthesia. Indications [...] Event Date/Time: 02/26/2020 10:35 PM Procedure: intubation (15019). Procedure Section: Sedation: under general anesthesia. Indications [...] skin jarrod CANDACE 03/01/2020 1:28 PM CDT [facility] Gram Stain No polymorphonuclear cells(AA) 03/01/2020 1:28 PM CDT [facility] Gram Stain Moderate Gram-positive cocci(AA) 03/01/2020 1:28 PM CDT [facility] Gram Stain Moderate Gram-negative bacilli(AA) 03/01/2020 1:28 PM CDT [facility]CRO[facility] Microbiology ENTIRE SACRAL VERTEBRAL [place]UM[place] / Unknown Collection / Unknown 02/24/2020 12:16 PM CDT 02/24/2020 12:23 PM CDT Narrative [facility] - 03/01/2020 1:28 PM CDT 02/24/2020 9:24 PM Ysabel Ortega RN notified. Read back and acknowledged results. Organism seen on initial gram stain may be anaerobic or not viable for aerobic growth Pablito Kan MD LAB - MICROBIOLOGY O RDERABLES [facility] [address] [place] [address], [facility] [phone] * PREPARE (CROSSMATCH) RBC UNIT(S), 2 Units (02/24/2020 6:46 AM CDT) Only the most recent of5 resultswithin the time period is included. Unit Description AS1 LR PRBC [facility] B[facility]OD [facility] Unit ABO B [facility] Unit POS [facility] Product Number R02 [facility] B LOOD BANK LAB Unit Donor # [id number] [facility] Unit Status released [facility] Product Code [id number] [facility] OD BANK LAB Blood Type Barcode 7300 [facility]OD [facility] LAB Expiration Date S BLOOD BANK LAB Unit Description AS1 LR PRBC [facility] BLOOD [facility] LAB Unit ABO B [facility]OD [facility] Unit POS [facility] BLOOD [facility] Product Number R02 [facility] B LOOD BANK LAB Unit Donor # [id number] [facility] BLOOD [facility] Unit Status released [facility] BLOO D BANK LAB Product Code [id number] [facility] BLO OD BANK LAB Blood Type Barcode 7300 [facility] BLOOD [facility] LAB Expiration Date S BLOOD BANK LAB Blood Bank BLOOD SPECIMEN / Unknown 02/24/2020 6:46 AM CDT 02/24/2020 7:02 AM CDT Adriana Funes FRONT END UI DEVELOPER-COAT FITTER LAB - BLOOD BANK ORDERABLES [facility] BLOOD [facility] LAB [address] [place] [address], [place] [phone] * SARS-COV-2 (COVID-19) IN HOUSE (02/23/2020 9:49 PM CDT) Only the most recent of2 resultswithin the time period is included. COVID-19 PCR Not detected Not detected, Invalid 02/24/2020 7:49 PM CDT [facility] Microbiology SPECIMEN FROM NASOPHARYNGEAL STRUCTURE / Unknown Collection / Unknown 02/23/2020 9:49 PM CDT 02/23/2020 9:56 PM CDT Narrative [facility] - 02/24/2020 7:49 PM CDT This Real Time RT-PCR assay was developed and its performance characteristics determined by [facility]. This test has been authorized [...] Violet Thorpe MD LAB - MICROBIOLOGY ORDERABLES [facility] [address] [place] [address] [phone] * CT CHEST PE W ABD PELVIS [...] right. Dictated by Lobito Han MD (residential service technician). I, Dr. Clay SHOEMAKER M.D. have [...] right. Dictated by Lobito Han MD (residential service technician). Dr. Clay Bahena M.D. have personally reviewed and interpretedthis examination/study. This report was electronically signed by Clay SHOEMAKER M.D. on 02/24/2020 10:45 AM . Violet Thorpe MD CT ORDERABLES * (ABNORMAL) BLOOD GASES JORDYN (02/23/2020 7:02 PM CDT) pH Mixed Venous 7.43(H) 7.30 - 7.40 02/23/2020 7:09 PM [facility] pCO2 Mixed Venous 43 40 - 46 mmHg 02/23/2020 7:09 PM [facility] pO2 Mixed Venous 41 35 - 42 mmHg 02/23/2020 7:09 PM [facility] HCO3 Mixed Venous 28.3(H) 22.0 - 26.0 mmol/L 02/23/2020 7:09 PM [facility] TCO2 Mixed Venous 29.6(H) 25.0 - 29.0 mmol/L 02/23/2020 7:09 PM [facility] Base Excess Venous 3.6(H) -2.0 - 2.0 mmol/L 02/23/2020 7:09 PM [facility] Hemoglobin Mixed Venous 8.6(L) 13.5 - 17.5 g/dL 02/23/2020 7:09 PM [facility] Oxyhemoglobin Mixed Venous 76.9 66.0 - 77.0 % 02/23/2020 7:09 PM [facility] Carboxyhemoglobin Venous 0.0 0.0 - 3.0 % 02/23/2020 7:09 PM [facility] Methemoglobin 0.7 0.0 - 2.0 % 02/23/2020 7:09 PM [facility] FI O2 Mixed Venous 21.0 % 2019 7:09 PM [facility] Blood BLOOD SPECIMEN / Unknown Venipuncture / Unknown 02/23/2020 7:02 PM CDT 02/23/2020 7:07 PM CDT Violet Thorpe MD LAB - BLOOD GASES ORDERABLES [address] [address], [facility] [phone] * XR SHOULDER LEFT 2VW OR MORE (02/13/2020 5:52 PM CDT) Anatomical Region Laterality Modality Upper Extremity Radiographic Tavon ging 02/13/2020 7:04 PM CDT Impressions 02/14/2020 10:35 AM CDT IMPRESSION: 1.Displaced fracture of the distal third of the left clavicle with lateral and inferior displacement of the distal fracture fragment. 2.Multiple left-sided rib fractures. Dictated by Vivien Guzman MD (residential service technician). I, Dr. KERRY VIERA have personally [...] fractures. Dictated by Vivien Guzman MD (residential service technician). Dr. KERRY Bahena have personally reviewed and interpreted this examination/study. This report was electronically signed by KERRY VIERA on 02/14/2020 10:35 AM . Bobyb Rizo MD DIAGNOSTIC IMAGING O RDERABLES * [...] details.) Dictated by Jessica Ramirez MD (residential service technician). This report was approved by Jessica [...] details.) Dictated by Jessica Ramirez MD (residential service technician). This report was approved by Jessica [...] details.) Dictated by Jessica Ramirez MD (residential service technician). This report was approved by Jessica [...] details.) Dictated by Jessica Ramirez MD (residential service technician). This report was approved by Jessica Ramirez on 02/11/2020 1:[address] JAH Bhaena have personally reviewed and interpreted this examination/study. This report was electronically signed by JAH ARIZMENDI on02/11/2020 1:34 PM . Sakina Montesinos FRONT END UI DEVELOPER-COAT FITTER MR ORDERABLES * MRI NECK SOFT TISSUE [...] details.) Dictated by Jessica Ramirez MD (residential service technician). This report was approved by Jessica [...] details.) Dictated by Jessica Ramirez MD (residential service technician). This report was approved by Jessica Ramirez on 02/11/2020 1:33 PM . I, Dr. JAH ARIZMENDI have personally reviewed and interpreted this examination/study. This report was electronically signed by JAH ARIZMENDI on02/11/2020 1:34 PM . Sakina Montesinos FRONT END UI DEVELOPER-COAT FITTER MR ORDERABLES * FL SWALLOWING FUNCTION STUDY (02/10/2020 10:18 AM CDT) Anatomical Region Laterality Modality Chest Radiographic Tavon ging 02/10/2020 10:2 2 AM CDT Impressions 02/10/2020 10:36 AM CDT FINDINGS/IMPRESSION: Fluoroscopic assistance was provided for a procedure performed by Speech Therapy. Please see the separate report by Speech Therapy for further details. Fluoroscopy Time: 42 seconds. Dictated by Ivana Lomeli MD (residential service technician). Dr. KERRY Bahena have personally reviewed [...] seconds. Dictated by Ivana Lomeli MD (residential service technician). Dr. KERRY Bahena have personally reviewed [...] This report was electronically signed by KERRY VEIRA on 02/10/2020 8:38AM . Den Mathew MD DIAGNOSTIC IMAGING O RDERABLES * (ABNORMAL) BLOOD GASES ARTERIAL (02/07/2020 2:55 AM CDT) Only the most recent of13 resultswithin the time period is included. pH Arterial 7.42 7.35 - 7.45 02/07/2020 3:[facility] pCO2 Arterial 36 35 - 45 mmHg 02/07/2020 3:07 AM [facility] pO2 Arterial 71 71 - 95 mmHg 02/07/2020 3:07 AM [facility] HCO3 Arterial 22.8 22.0 - 26.0 mmol/L 02/07/2020 3:07 AM [facility] TCO2 Arterial 23.9(L) 25.0 - 29.0 mmol/L 02/07/2020 3:07 AM [facility] Base Excess Arterial -1.3 -2.0 - 2.0 mmol/L 02/07/2020 3:07 AM CDT [facility] Hemoglobin Arterial 9.0(L) 13.5 - 17.5 g/dL 02/07/2020 3:07 AM CDT [facility] Oxyhemoglobin Arterial 93.3(L) 95.0 - 100.0 % 02/07/2020 3:07 AM CDT [facility] Carboxyhemoglobin 0.3 0.0 - 3.0 % 02/07/2020 3:07 AM CDT [facility] Methemoglobin 0.1 0.0 - 2.0 % 02/07/2020 3:07 AM CDT [facility] FI O2 Arterial 80.0 % 02/07/2020 3:07 AM CDT [facility] Blood, arterial ARTERIAL BLOOD SPECIMEN / Unknown Arterial Puncture / Unknown 02/07/2020 2:55 AM CDT 02/07/2020 3:04 AM CDT La Nena Blake MD LAB - BLOOD GASES ORDERABLES Performing Organization Address City/State/[facility] Co de Phone Number [facility] [address] [place] [id number], [facility] [phone] * CT ANGIO BRAIN AND NECK (02/05/2020 [...] Blood 1.11 mmol/L 02/04/2020 5:21 AM T [facility] Adjusted Ionized Calcium 1.14(L) 1.19 - 1.34 mmol/L 02/04/2020 5:21 AM T [facility] pH Whole Blood 7.45 7.35 - 7.45 02/04/2020 5:21 AM [facility] Blood WHOLE BLOOD SPECIMEN / Unknown Lab Venipuncture / Unknown 02/04/2020 4:32 AM CDT 02/04/2020 5:18 AM CDT Ernesto Tinsley MD LAB - CHEMISTRY [facility] Organization Address City/State/ZIP Co de Phone Number [place] [id number] [place] [address], [facility] [phone] * CT ANGIO ABDOMEN PELVIS (01/31/2020 10:12 [...] evaluate the extent of pulmonary embolism. 3. Qxmbq-rd-nzokkdpg volume right and small volume left pleural [...] PM. Dictated by Vincent Montalvo MD (residential service technician). IDr. Clay M.D. have personally reviewed [...] evaluate the extent of pulmonary embolism. 3. Znvbl-ot-jcyenfoh volume right and small volume left pleural [...] PM. Dictated by Vincent Montalvo MD (residential service technician). Shruti, Dr. Clay SHOEMAKER M.D. have [...] evaluate the extent of pulmonary embolism. 3. Qgcjz-pc-hwsuvbhu volume right and small volume left pleuraleffusions. [...] PM. Dictated by Vincent Montalvo MD (residential service technician). I, Dr. Clay SHOEMAKER M.D. have personally reviewed and interpretedthis examination/study. This report was electronically signed by Clay SHOEMAKER M.D. on 02/01/2020 10:42 AM . Ernesto Tinsley MD CT ORDERABLES * FL ELENITA SURGERY (01/31/2020 1:17 PM CDT) Narrative [facility] - 01/31/2020 1:18 PM CDT Fluoroscopy was used for this exam in the OR. Please see the Operative report. Dipesh Felix MD FLUOROSCOPY ORDERABL ES [facility] * XR PELVIS 3VW OR MORE [...] Report dictated by Jorge Abbott M.D. (residential service technician). Dr. CHRISTINA Bahena have personally reviewed [...] Report dictated by Jorge Abbott M.D. (residential service technician). Dr. CHRISTINA Bahena have personally reviewed [...] Placement: Patient Location: OR Procedure: IV start ([id number]). Procedure Section: Skin Prep: alcohol. Orientation: left [...] Event Date/Time: 01/31/2020 11:03 AM Procedure: intubation ([id number]). Procedure Section: Sedation: under general anesthesia. Indications [...] findings. Dictated by Dagoberto Hurtado MD (residential service technician). I, Dr. ESTRELLITA SHAH have personally [...] evaluation of the above findings. Dictated by aDgoberto Hurtado MD (residential service technician). I, Dr. ESTRELLITA SHAH have personally [...] findings. Dictated by Dagoberto Hurtado MD (residential service technician). I, Dr. ESTRELLITA SHAH have personally [...] findings. Dictated by Dagoberto Hurtado MD (residential service technician). I, Dr. ESTRELLITA SHAH have personally reviewed and interpreted this examination/study. This report was electronically signed by ESTRELLITA SHAH on 01/28/20204:01 PM . Anu Greene DO CT ORDERABLES * (ABNORMAL) POTASSIUM BLOOD (01/28/2020 12:05 PM CDT) Only the most recent of9 resultswithin the time period is included. Potassium 3.2(L) 3.5 - 4.5 mmol/L 01/28/2020 12:34 PM CDT [facility] Blood BLOOD SPECIMEN / Unknown Venipuncture / Unknown 01/28/2020 12:05 PM CDT 01/28/2020 12:17 PM CDT Anu Greene DO LAB - CHEMISTRY ORDERABLES [facility] [address] [place] [address], [facility] [phone] * TRANSFUSE RED BLOOD CELL LEUKOREDUCED UNIT(S) [...] procedure and other - comments (only speaks Italian) Patient Sedated? Yes Sedation Type: mild Sedation [...] Report dictated by Jorge Abbott M.D. (residential service technician). I, Dr. KERRY VIERA have personally [...] Report dictated by Jorge Abbott M.D. (residential service technician). I, Dr. KERRY VIERA have personally reviewed and interpreted this examination/study. This report was electronically signed by KERRY VIERA on 01/27/2020 12:41 PM . Bobby Rizo MD DIAGNOSTIC IMAGING O RDERABLES * (ABNORMAL) DRUG SCREEN TOX URINE PANEL (01/26/2020 8:12 AM [facility] Amphetamines Screen Urine Negative Negative : < 1000 ng/mL 01/26/2020 8:56 AM [facility] Barbiturates Screen Urine Negative Negative : < 200 ng/mL 01/26/2020 8:56 AM [facility] Benzodiazepine Screen Urine Negative Negative : < 200 ng/mL 01/26/2020 8:56 AM [facility] Opiates Urine Positive(A) Negative : < 300 ng/mL 01/26/2020 8:56 AM [facility] Comment:Positive urine opiat e screening results should be confirmed by another generally accepted non-immunological method such as gas chromatography or mass spectrometry. Cocaine Metabolites Urine Negative Negative : < 300 ng/mL 01/26/2020 8:56 AM [facility] Phencyclidine Screen Urine Negative Negative : < 25 ng/ml 01/26/2020 8:56 AM [facility] Cannabinoids Screen Urine Negative Negative : <50 ng/mL 01/26/2020 8:56 AM [facility] Methadone Screen Urine Negative Negative : < 300 ng/mL 01/26/2020 8:56 AM [facility] Fentanyl Screen Urine Negative Negative : <1.0 ng/mL 01/26/2020 8:56 AM CDT [facility] Urine URINE / Unknown Collection / Unknown 01/26/2020 8:12 AM CDT 01/26/2020 8:29 AM CDT Narrative [facility] - 01/26/2020 8:56 AM CDT The Urine Toxicology Screening Panel does not screen for Propoxyphene, Meprobamate, Carisoprodol, Trazodone, kkkb-iwm-gogwrwn medications and/or volatiles (Acetone, Isopropanol, Methanol or Ethylene Glycol). Ethanol, Salicylate, Acetaminophen, Tricyclic Antidepressants and several therapeutic drugs may be individually assayed in serum or plasma specimen. Toxicology testing by the [facility] is an aid to medical diagnosis and treatment of patients. No documented chain of custody was maintained. Results are intended to be used for clinical purposes only. Joshua Matute MD LAB - URINE CHEMISTR Y ORDERABLES Performing Organization Address City/State/[facility] Co de Phone Number [address] [address], [facility] [phone] * FL UROGRAM RETROGRADE (01/25/2020 8:15 PM CDT) Anatomical Region Laterality Modality Abdomen Radiographic Tavon ging 01/25/2020 8:36 PM CDT Impressions 02/01/2020 4:02 PM CDT IMPRESSION: No evidence of injury to the penile or bulbar urethra. Dynamic images showed retrograde flow of contrast into the bladder with normal appearance of the membranous and prostatic urethra. Dictated by Vivien Guzman MD (residential service technician). IDr. Clay M.D. have personally reviewed [...] urethra. Dictated by Vivien Guzman MD (residential service technician). Dr. Clay Bahena M.D. have personally [...] of marrow edema associated with the reported C0atyhr fracture. There is associated severe compression of [...] PM CDT) ABO 01/25/2020 4:01 PM CDT [facility] Rh Type 01/25/2020 4:01 PM CDT [facility] Typem 01/25/2020 4:01 PM CDT [facility] Interpretation 01/25/2020 4:01 PM CDT [facility] Blood BLOOD SPECIMEN / Unknown Lab Venipuncture / Unknown 01/25/2020 2:20 PM CDT 01/25/2020 2:34 PM CDT Narrative [facility] - 01/25/2020 4:01 PM CDT Re-type confirmed per [facility] Blood Bank policies & procedures. Results documented in department. Shaggy James MD LAB - BLOOD BANK ORD ERABLES [facility] [address] [place] [address], [facility] [phone] * (ABNORMAL) TEG PLATELET MAPPING (01/25/2020 2:19 PM CDT) Interpretation TEG See Comment 01/25/2020 4:10 PM CDT [facility] React-Time 3.8(L) 5.0 - 10.0 MIN 01/25/2020 4:10 PM CDT [facility] K-Time 1.3 1.0 - 3.0 MIN 01/25/2020 4:10 PM CDT [facility] Angle A-BB 71.2 53.0 - 72.0 Degrees 01/25/2020 4:10 PM CDT [facility] MA (CK) BB 68.4 50.0 - 70.0 mm 01/25/2020 4:10 PM CDT [facility] LY30 0.0 0.0 - 8.0 % 01/25/2020 4:10 PM CDT [facility] CI-Coagulation Index 3.0 -3.0 - 3.0 01/25/2020 4:10 PM CDT [facility] MA-ADP 23.4 Reference Range: None mm 01/25/2020 4:10 PM CDT [facility] MA AA-BB 65.5 Reference Range: None mm 01/25/2020 4:10 PM CDT [facility] % ADP Inhibition 75.5 Reference Range:None % 01/25/2020 4:10 PM CDT [facility] G-Clot Strength 10.8 4.5 - 11.0 d/sc 01/25/2020 4:10 PM CDT [facility] % AA Inhibition 4.9 Reference Range: None % 01/25/2020 4:10 PM CDT [facility] Blood BLOOD SPECIMEN / Unknown Venipuncture / Unknown 01/25/2020 2:19 PM CDT 01/25/2020 2:32 PM CDT Narrative [facility] - 01/25/2020 4:10 PM [...] MD LAB - BLOOD BANK ORD ERABLES [facility] [address] [place] [address], [facility] [phone] * CT CHEST ABDOMEN PELVIS W CONT [...] atelectasis. Dictated by Vivien Guzman MD (residential service technician). I, Dr. MANFRED BOYD have personally [...] cervical spine at the C3-C4 through the C5-[id number] is present due to posterior disc abnormalities [...] atelectasis. Dictated by Vivien Guzman MD (residential service technician). I, Dr. MANFRED BOYD have personally [...] atelectasis. Dictated by Vivien Guzman MD (residential service technician). I, Dr. MANFRED BOYD have personally [...] cervical spine at the C3-C4 through the C5-O8qvoyzo is present due to posterior disc abnormalities [...] atelectasis. Dictated by Vivien Guzman MD (residential service technician). I, Dr. MANFRED BOYD have personally [...] atelectasis. Dictated by Vivien Guzman MD (residential service technician). I, Dr. MANFRED BOYD have personally [...] cervical spine at the C3-C4 through the C5-C5mfusfk is present due to posterior disc abnormalities [...] atelectasis. Dictated by Vivien Guzman MD (residential service technician). I, Dr. MANFRED BOYD have personally [...] atelectasis. Dictated by Vivien Guzman MD (residential service technician). I, Dr. MANRFED BOYD have personally reviewed and interpreted this [...] cervical spine at the C3-C4 through the C5-L5bslkji is present due to posterior disc abnormalities [...] atelectasis. Dictated by Vivien Guzman MD (residential service technician). I, Dr. MANFRED BOYD have personally [...] Report dictated by Vivien Guzman MD (residential service technician). I, Dr. CHRISTINA HERNANDEZ have personally [...] Report dictated by Vivien Guzman MD (residential service technician). I, Dr. CHRISTINA HERNANDEZ have personally reviewed and interpreted this examination/study. This report was electronically signed by CHRISTINA HERNANDEZ on 01/25/2020 3:24 PM . Joshua Matute MD DIAGNOSTIC IMAGING O RDERABLES * ALCOHOL ETHYL BLOOD (01/25/2020 1:38 PM CDT) Interpretation Ethanol None Detected None Detected mg/dL 01/25/2020 2:08 PM CDT [facility] Comment:Ethanol levels less than 10 mg/dL are resulted as None detected . Blood BLOOD SPECIMEN / Unknown Venipuncture / Unknown 01/25/2020 1:38 PM CDT 01/25/2020 2:08 PM CDT Joshua Matute MD LAB - CHEMISTRY [facility] Organization Address City/State/ZIP Co de Phone Number [facility] [address] [place] [address], [facility] [phone] Care Teams Stem Dryer Maintainer Relationship Specialty Start Date End Date Unknown, Provider PCP - General 08/30/23 Donavon Connor MD Family Medicine 08/30/23
--- OUTSIDE RECORDS SUMMARY | 2024-08-11 07:00 | XMS_ITS | Clinical Summary ---
Author Organization [facility] Address [address] [place] [address] Care Team Providers Care Scheduling Analyst Name Role Phone Unavailable Primary Care Provider [...]
--- OUTSIDE RECORDS SUMMARY | 2024-08-11 07:00 | XMS_ITS | Clinical Summary ---
Author Organization [facility] Address [address] [place] [address] Care Team Providers Care Field Service Manager Name Role Phone No, Physician Primary Care Provider [phone] Bunny Ramires MD Unavailable [phone] Allergies Active Allergy Reactions Criticality Noted [...] Cardiomyopathy, ischemic 07/22/2024 Coronary artery disease involving suquamish heart 0 07/15/2024 Constipation, unspecified constipation type 08/2022 Assessment & Plan (07/31/2022 11:22 AM GUTTER INSTALLER): No symptoms or signs of mechanical obstruction. [...] 07/30/2022 Assessment & Plan (07/31/2022 11:21 AM GUTTER INSTALLER): On metformin 500 mg twice daily at [...] 07/30/2022 Assessment & Plan (07/31/2022 10:46 AM GUTTER INSTALLER): Not on any treatment at home. BP well controlled, CTM and add medications if needed Benign prostatic hyperplasia without lower urinary tract symptoms 07/30/2022 Assessment & Plan (07/31/2022 10:44 AM GUTTER INSTALLER): Patient was recently started on Flomax and finasteride at OSH. Patients son reported patient was experiencing difficulty urinating - continue home meds and pcp follow up for further management Stage 3a chronic kidney disease 07/30/2022 Assessment & Plan (07/31/2022 10:48 AM GUTTER INSTALLER): Creatinine is 1.48, up from the most recent of 1.2- 1.3 in 2021 and 2016 - improved to 1.37 on am labs - CTM and follow up outpatient Encounters Date Type Department Care Team Description 07/29/2024 Orders Only [facility] Cardiology [address] [place] [phone] Gerhard Ratliff MD 07/15/2024 Telephone [facility] Cardiology [address] [place] [address] Gina Link MD 07/08/2024 2:00 PM GUTTER INSTALLER Office Visit [facility] Cardiology [address] [place] [address] Gina Link MD Hypertension associated with diabetes (HCC) (Primary Dx); Coronary artery disease involving suquamish coronary artery of suquamish heart without angina pectoris; Cardiomyopathy, ischemic 07/02/2024 Orders Only [facility] Cardiology [address] [place] [address] Gerhard Ratliff MD 06/29/2024 Orders Only [facility] [address] [place] [address] Allegra Shin MD 06/26/2024 Orders Only [facility] Cardiology [address] [place] [address] Peyton De Guzman MD from Last 3 Months Surgical History Surgery Date Site/Laterality Comments MT PERQ NL/PL LITHOTRP COMPLEX >2 CM ACCOUNT RECEIVABLE ASSOCIATE LOCATIONS Percutaneous Lithotomy For Stone Over [...] on file Legal Sex Male 5:44 AM GUTTER INSTALLER Gender Identity Not on file Sexual Orientation Not on file Obstetrics History Last Filed Vital Signs Vital Sign Reading Time Taken Comments Blood Pressure 116/60 07/08/2024 1:05 PM GUTTER INSTALLER Pulse 88 07/08/2024 1:05 PM GUTTER INSTALLER Temperature 36.5 C (97.7 F) 07/31/2022 8:00 AM GUTTER INSTALLER Respiratory Rate 16 07/31/2022 7:55 AM GUTTER INSTALLER Oxygen Saturation 99% 07/08/2024 1:05 PM GUTTER INSTALLER Inhaled Oxygen Concentration - - Weight 67.9 kg (149 lb 9.6 oz) 07/08/2024 1:05 P M GUTTER INSTALLER Height 162.6 cm (5' 4 ) 07/08/2024 1:05 PM GUTTER INSTALLER Body Mass Index 25.68 07/08/2024 1:05 PM GUTTER INSTALLER Plan of Treatment Health Maintenance Due Date [...] CARDIOLOGY DOCUMENT SCAN Routine 07/19/2024 3:34 PM GUTTER INSTALLER CARDIOLOGY DOCUMENT SCAN Routine 07/18/2024 2:33 PM GUTTER INSTALLER CARDIOLOGY DOCUMENT SCAN Routine 07/18/2024 2:12 PM GUTTER INSTALLER CARDIOLOGY DOCUMENT SCAN Routine 07/01/2024 3:53 PM GUTTER INSTALLER CARDIOLOGY DOCUMENT SCAN Routine 06/30/2024 3:49 PM GUTTER INSTALLER CARDIOLOGY DOCUMENT SCAN Routine 06/29/2024 3:44 PM GUTTER INSTALLER SCAN - RADIOLOGY/IMAGING 06/29/2024 CARDIOLOGY DOCUMENT SCAN Routine 06/28/2024 3:37 PM GUTTER INSTALLER CARDIOLOGY DOCUMENT SCAN Routine 06/27/2024 3:32 PM GUTTER INSTALLER CARDIOLOGY DOCUMENT SCAN Routine 06/26/2024 3:20 PM GUTTER INSTALLER CARDIOLOGY DOCUMENT SCAN Routine 06/24/2024 3:16 PM GUTTER INSTALLER CARDIOLOGY DOCUMENT SCAN Routine 06/23/2024 3:10 PM GUTTER INSTALLER CARDIOLOGY DOCUMENT SCAN Routine 06/22/2024 3:04 PM GUTTER INSTALLER CARDIOLOGY DOCUMENT SCAN Routine 06/22/2024 3:03 PM GUTTER INSTALLER CARDIOLOGY DOCUMENT SCAN Routine 06/22/2024 3:00 PM GUTTER INSTALLER EGFR Routine 07/31/2022 5:30 AM GUTTER INSTALLER HEMOGLOBIN A1C Routine 07/30/2022 10:23 PM GUTTER INSTALLER LIPID PANEL Routine 07/30/2022 10:23 PM GUTTER INSTALLER from Last 3 Months or Most Recently Relevant to Health Maintenance Results * Cardiology Document Scan (07/19/2024 3:34 PM GUTTER INSTALLER) Anatomical Region Laterality Modality Other Result David Shin MD [facility] SERVICES PRO CEDURES Final Result * Cardiology Document Scan (07/18/2024 2:33 PM GUTTER INSTALLER) Anatomical Region Laterality Modality Other Result David Ratliff MD CV CARDIAC SERVICES PROCEDURES F inal Result * Cardiology Document Scan (07/18/2024 2:12 PM GUTTER INSTALLER) Anatomical Region Laterality Modality Other Result David Ratliff MD CV CARDIAC SERVICES PROCEDURES F inal Result * Cardiology Document Scan (07/01/2024 3:53 PM GUTTER INSTALLER) Anatomical Region Laterality Modality Other Result David Ratliff MD CV CARDIAC SERVICES PROCEDURES F inal Result * Cardiology Document Scan (06/30/2024 3:49 PM GUTTER INSTALLER) Anatomical Region Laterality Modality Other Result David Allegra Shin MD CV CARDIAC SERVICES PRO CEDURES Final Result * Cardiology Document Scan (06/29/2024 3:44 PM GUTTER INSTALLER) Anatomical Region Laterality Modality Other Result David Allegra Shin MD CV CARDIAC SERVICES PRO CEDURES Final Result * SCAN - RADIOLOGY/IMAGING (06/29/2024) Anatomical Region Laterality Modality Other Result David Shin MD Final R esult * Cardiology Document Scan (06/28/2024 3:37 PM GUTTER INSTALLER) Anatomical Region Laterality Modality Other Result David Allegra Shin MD CV CARDIAC SERVICES PRO CEDURES Final Result * Cardiology Document Scan (06/27/2024 3:32 PM GUTTER INSTALLER) Anatomical Region Laterality Modality Other Gerhard Ratliff MD CV CARDIAC SERVICES PROCEDURES F inal Result * Cardiology Document Scan (06/26/2024 3:20 PM GUTTER INSTALLER) Anatomical Region Laterality Modality Other Allegra Shin MD CV CARDIAC SERVICES PRO CEDURES Final Result * Cardiology Document Scan (06/24/2024 3:16 PM GUTTER INSTALLER) Anatomical Region Laterality Modality Other Allegra Shin MD CV CARDIAC SERVICES PRO CEDURES Final Result * Cardiology Document Scan (06/23/2024 3:10 PM GUTTER INSTALLER) Anatomical Region Laterality Modality Other Result [facility] us Peyton De Guzman MD CV CARDIAC SERVICES PROCEDU RES Final Result * Cardiology Document Scan (06/22/2024 3:04 PM GUTTER INSTALLER) Anatomical Region Laterality Modality Other us Peyton De Guzman MD CV CARDIAC SERVICES PROCEDU RES Final Result * Cardiology Document Scan (06/22/2024 3:03 PM GUTTER INSTALLER) Anatomical Region Laterality Modality Other Result [facility] us Peyton De Guzman MD CV CARDIAC SERVICES PROCEDU RES Final Result * Cardiology Document Scan (06/22/2024 3:00 PM GUTTER INSTALLER) Anatomical Region Laterality Modality Other us Peyton De Guzman MD CV CARDIAC SERVICES PROCEDU RES Final Result * (ABNORMAL) eGFR (07/31/2022 5:30 AM GUTTER INSTALLER) [facility] eGFR 54(L) 90 - 130 mL/min/1. 73 m2 [facility] Comment: Interpretive Data Reference Interval Normal [...] last reviewed 2021. Blood 07/31/2022 5:30 AM GUTTER INSTALLER 07/31/2022 5:51 AM GUTTER INSTALLER Lizabeth Strong MD LAB BLOOD ORDERABLES Fin al Result Performing Organization Address [facility] de Phone Number [facility] [place] [address] * (ABNORMAL) Hemoglobin A1c (07/30/2022 10:23 PM GUTTER INSTALLER) Hgb A1C 10.7(H) 4.0 - 5.6 % [facility] Estimated Average Glucose 260 mg/dL [facility] Comment: The ADA recommends reporting an estimated Average Glucose (eAG) with all Hemoglobin A1c results using the equation derived from a study of 507 normal and diabetic adults. Minority populations were underrepresented and children were not included. (Diabetes Care 2020; 43(S1): S66-S76). The eAG is not equivalent to a fasting glucose. Blood 07/30/2022 10:2 3 PM GUTTER INSTALLER 07/30/2022 10:39 PM GUTTER INSTALLER Lizabeth Strong MD LAB BLOOD ORDERABLES Fin al Result Performing Organization Address City/[facility]/ZIP Co de Phone Number [facility] [place] [address] * (ABNORMAL) Lipid panel (07/30/2022 10:23 PM GUTTER INSTALLER) Cholesterol 167 30 - 199 mg/dL [facility] Comment: Interpretive Data Ages < [...] revised on 2018. Triglycerides 155(H) <=149 mg/dL [facility] Comment: Interpretive Data Ages < [...] on 2018. HDL 43 >=40 mg/dL [facility] Comment: Interpretive Data Ages < [...] 2018. LDL, calculated 93 <=129 mg/dL [facility] Comment: Interpretive Data Ages < [...] revised on 2018. Non-HDL Cholesterol 124 mg/dL [facility] Comment: Interpretive Data Ages < [...] last revised on 2018. Chol/HDL ratio 4 [facility] Blood 07/30/2022 10:2 3 PM GUTTER INSTALLER 07/30/2022 10:39 PM GUTTER INSTALLER Lizabeth Strong MD LAB BLOOD ORDERABLES Fin al Result [facility] [place] [address] from Last 3 Months or Most Recently Relevant to Health Maintenance Insurance [facility] Advance Directives For more information, please contact: [phone] * Full Code (Latest Code Status on File) Date Activated Date Inactivated Comments 07/30/2022 9:33 PM 07/31/2022 6:01 PM Care Teams Field Service Manager Relationship Specialty Start Date End Date No, Physician PCP - General 07/30/22 Bunny Ramires MD 07/30/22
--- OUTSIDE RECORDS SUMMARY | 2024-08-11 07:00 | XMS_ITS | Clinical Summary ---
Author Organization [facility] [employer] Address [address] [place] [address] Care Team Providers Care Typer Name Role Phone Unknown, Provider Primary Care Provider Donavon Holguin MD Unavailable [phone] Source Comments [facility],non-owned Affiliates and Associated Physician Practices is amultiple site organization consisting of ambulatory clinics and hospital sitesin [place], [place] and [place]. This disclosure is being madepursuant to the Care Everywhere program and may not contain all information available regarding this patient. Last updated 18.[facility] [employer] Allergies Active Allergy Reactions Criticality Noted Date [...] tablet 01/01/2023 Active Blood Glucose Monitoring Suppl (Simio Verio Flex System) w/Device KIT USE DIRECTED THREE TIMES DAILY 01/01/2023 Active erythromycin (Romycin) 5 MG/GM ophthalmic ointment 03/23/2023 Active Aqueous Biomedicaluch Ultra test strip USE TO TEST FOUR TIMES DAILY 03/27/2023 Active TRUEplus 5-Bevel Pen Mallie 32G X 4 MM MISC USE TO INJECT INSULIN UP TO 5 TIMES DAILY 07/11/2023 Active TRUEplus Insulin Syringe 30G X 5/16 0.5 ML MISC USE DIRECTED EVERY DAY 01/01/2023 Active Lancets (KochzauberTOUCH DELICA PLUS 33G EXTRA FINE LANCET) TEST [...] original. Could not [facility] afford to provide a Home Health nurse [...] Follow up in: three months with PCP, Occupational Therapist Assistants, Documentation Consultant, Steam Boiler Fireman, Established eye director of healthcare systems and Balloon Maker Last Assessment & Plan: Not on any [...] Follow up in: three months with PCP, Occupational Therapist Assistants, Documentation Consultant, Steam Boiler Fireman, Established eye director of healthcare systems and Balloon Maker Infected wound 04/12/2020 Sacral wound 02/19/2020 Urinary [...] Office Visit [facility] - Ophthalmology [address] [place] [phone] Health Maintenance Due Date Last Done Comments [...] complete this topic MENINGOCOCCAL (Group B) VACCINE SHARED DECISION-MAKING Aged Out No longer eligible based on patient's age to complete this topic MENINGOCOCCAL GROUPS A/C/Y/W VACCINE Aged Out No longer eligible based on patient's age to complete this topic Medical Devices Implanted Type Area Escort Blind Device Identifier Shelf Expiration Date Model / Serial / Lot Gd Pin Orth 450mm 3.2mm Cocr Xtd Acc Implanted:Qty: 1 on 01/31/2020 by Dipesh Felix MD at [facility] Right: Sacral Iliac Joint [employer] [id number] / / Wshr 12.7mm 6.5mm Set Unv Orth Ss 1mm Implanted:Qty: 1 on 01/31/2020 by Dipesh Felix MD at [facility] Right: Sacral Iliac Joint [employer] [id number] / / Cannulated Screw, 4.0mm X40mm 1/2 Thread Implanted:Qty: 2 on 01/31/2020 by Dipesh Felix MD at [facility] Right: Ankle [id number] / / 8.0 X 9.5 Fully Threaded Screw Implanted:Qty: 1 on 01/31/2020 by Dipesh Felix MD at [facility] [id number] / / Plate 8 Hl Unv Matrixrib Ti Bone Nonster Implanted:Qty: 5 on 02/05/2020 by Dipesh Hernandez MD at [facility] Right: Chest Wall [employer]sa [id number] / / 2.7 Mm Matrixrib Locking Screw, Self-Drilling, 11mm Implanted:Qty: 35 on 02/05/2020 by Dipesh Hernandez MD at [facility] Right: Chest Wall [id number] 1 / / 2.7 Mm Matrixrib Locking Screw, Self-Drilling, 12mm Implanted:Qty: 2 on 02/05/2020 by Dipesh Hernandez MD at [facility] Right: Chest Wall [id number] 1 / / Plate 16 Hl Precontr Lck Lopro 4th Rb Implanted:Qty: 1 on 02/05/2020 by Dipesh Hernandez MD at [facility] Right: Chest Wall [employer] [id number] / / [employer] Uv Iol Ccaoto +23.0d Implanted:Qty: 1 on 09/28/2023 by Simeon Cannon MD at [facility] Left: Eye [employer] 02/20/2027 CCAOTO+23.0D / [id number] / N/A [employer] Iol Aspheric Uv Absorbing Iol Implanted:Qty: 1 on 10/12/2023 by Simeon Cannon MD at [facility] Right: Eye [employer] 02/18/2027 CCA0T0 +23.5D / [id number] / NA Procedures Procedure Name Priority Date/Time Associated Diagnosis Comments COMPREHENSIVE METABOLIC PANEL STAT 06/30/2020 2:29 PM AUTOMATIC SPOOLER OPERATOR HEMOGLOBIN A1C Routine 04/18/2020 11:09 AM [facility] from Last 3 Months or Most Recently Relevant to Health Maintenance Results * (ABNORMAL) COMPREHENSIVE METABOLIC PANEL (06/30/2020 2:29 PM [facility]) BUN 29(H) 7 - 26 mg/dL 06/30/2020 3:00 PM [facility] Creatinine 1.2 0.6 - 1.2 mg/dL 06/30/2020 3:00 PM [facility] Sodium 138 136 - 145 mmol/L 06/30/2020 3:00 PM [facility] Potassium 3.7 3.5 - 4.5 mmol/L 06/30/2020 3:00 PM [facility] Chloride 96(L) 98 - 107 mmol/L 06/30/2020 3:00 PM [facility] CO2 28 22 - 29 mmol/L 06/30/2020 3:00 PM [facility] Glucose 144(H) 70 - 115 mg/dL 06/30/2020 3:00 PM [facility] Calcium 8.8 8.4 - 10.2 mg/dL 06/30/2020 3:00 PM [facility] Protein Total 6.5 6.0 - 8.3 g/dL 06/30/2020 3:00 PM [facility] Albumin 2.8(L) 3.4 - 5.0 g/dL 06/30/2020 3:00 PM [facility] Bilirubin Total 0.4 0.2 - 1.2 mg/dL 06/30/2020 3:00 PM [facility] Alkaline Phosphatase 108 40 - 150 Units/L 06/30/2020 3:00 PM [facility] ALT 20 0 - 55 Units/L 06/30/2020 3:00 PM [facility] AST 17 5 - 34 Units/L 06/30/2020 3:00 PM [facility] Anion Gap 18 8 - 18 06/30/2020 3:00 PM [facility] BUN/Creatinine Ratio 24(H) 7 - 23 06/30/2020 3:00 PM AUTOMATIC SPOOLER OPERATOR [facility] Osmolality Calculated 294 270 - 300 mOsm/kg 06/30/2020 3:00 PM [facility] Albumin/Globulin Ratio 0.8(L) 1.1 - 2.3 06/30/2020 3:00 PM [facility] eGFR 60(L) >60 mL/min/1.7 3 m2 06/30/2020 3:00 PM [facility] Blood BLOOD SPECIMEN / Unknown Venipuncture / Unknown 06/30/2020 2:29 PM AUTOMATIC SPOOLER OPERATOR 06/30/2020 2:37 PM [facility] Shaggy James MD LAB - CHEMISTRY KATHY CAMPA [facility] [address] [place] [address], [facility] [phone] * (ABNORMAL) HEMOGLOBIN A1C (04/18/2020 11:09 AM AUTOMATIC SPOOLER OPERATOR) Hemoglobin A1c 7.6(H) 4.4 - 6.3 % 04/19/2020 9:00 AM [facility] Estimated Average Glucose 171 mg/dL 04/19/2020 9:00 AM [facility] Comment: HbA1c Interpretation: Treatment target values recommended by ADA and other clinical organizations should be used to evaluate metabolic control in patients. Treatment Target Values: Normal : < 5.7% Pre-diabetes: 5.7-6.4% Diabetes: Equal to or greater than 6.5% Reference: [place] Diabetes [employer] Standards of Care in Diabetes -2014 In patients 70 years and older consider HbA1c target range of 7.0-7.5% Reference: Diabetes Mellitus in Older People: Position Statement on behalf of the International Association of Gerontology and Geriatrics (IAGG), the Diabetes Working Alliance Party for Older People (EDWPOP), and the International Task Force of Experts in Diabetes. Ritesh Srinivasan, et al. J [place] [employer] Association. 2012 Test results diagnostic of diabetes should be repeated for confirmation. The Sebia Capillary 2 assay for the measurement of HbA1c is a National Glycohemoglobin Standardization Program (NGSP)certified method. Blood BLOOD SPECIMEN / Unknown Lab Venipuncture / Unknown 04/18/2020 11:09 AM AUTOMATIC SPOOLER OPERATOR 04/18/2020 11:40 AM AUTOMATIC SPOOLER OPERATOR Narrative [facility] - 04/19/2020 9:00 AM AUTOMATIC SPOOLER OPERATOR note^note Zhane Granger MD LAB - CHEMISTRY OR DERABLES [facility] [address] [place] [address], [place] [phone] from Last 3 Months or Most Recently [...] 3:26 PM 02/19/2020 5:52 PM Care Teams Typer Relationship Specialty Start Date End Date Unknown, Provider PCP - General 08/30/23 Donavon Connor MD Family Medicine 08/30/23
--- NOTE | 2024-08-11 07:48 | ED_ITS ---
HPI - General Adult General Chief complaint: Altered Mental Status Stated complaint: altered mental status Time Seen by Provider: 08/11/24 06:55 History of Present Illness HPI narrative: 74-year-old male presents to the emergency department for evaluation for onset altered mental status yesterday. Family is unsure of exactly when the altered mental status started. Upon arrival emergency department patient is somnolent but is protecting his airway. Patient appears to have passive range of motion of all extremities. Related Data Home Medications ?Medication ?Instructions ?Recorded ?Confirmed ?Last Taken ?Type insulin glargine 100 unit/mL 18 unit subcut DAILY DM 10/29/23 07/24/24 07/17/24 History subcutaneous solution (Lantus U-100 Insulin) insulin lispro 100 unit/mL 1 sliding scale dose subcut ACHS dm 10/29/23 07/24/24 07/17/24 History subcutaneous pen lactulose 10 gram/15 mL oral 30 ml PO TID 06/22/24 07/24/24 Unknown History solution Allergies Allergy/AdvReac Type Severity Reaction Status Date / Time No Known Allergies Allergy Verified 08/05/24 09:48 Review of Systems 2 Review of Systems: All systems reviewed & are unremarkable except as noted in HPI and below PMFSH Past Medical History Medical History Benign prostate hyperplasia ST elevation myocardial infarction (STEMI) (06/22/24) status post PCI to the LAD Ischemic cardiomyopathy Type 2 diabetes mellitus Hypertension Compression fracture of L4 vertebra Hyperlipidemia Urinary retention Chronic indwelling Joiner catheter Coronary artery disease Surgical History Surgical History History of open reduction and internal fixation (ORIF) procedure repair of left 4 through 9 rib fractures History of percutaneous coronary intervention (05/2024) PCI to the LAD Family History Family History Mother Family history unknown Social History Social History Social History: Surrogate medical decision maker: Delta Anderson, daughter ([phone]). Code status: Full code. Smoking status: Never smoker Second hand tobacco smoke exposure: No Alcohol intake: never Substance use: never Substance use type: does not use Do You Feel Safe in your Home?: Yes Lack of Transportation: YES Lack of Food: Never True Current Housing: I Have Housing Concerned About Future Housing: No Difficulty Paying Gas/Electric Bills: No Difficulty Paying for Meds: YES Currently Unemployed: No Education: Don't Know Difficulty w/ Childcare or Family Care: YES Living arrangements: with family Gender identity (if verbalized by the patient): Male Sexual Orientation (if Verbalized by the Patient): Straight or Heterosexual Spiritual care concerns: No Exam 2 Narrative: APPEARANCE: Well appearing, no pain, no distress, well-nourished. HEAD: normocephalic, atraumatic. EYES: PERRLA/EOMI, conjunctivae clear. NOSE: Normal no drainage EARS:TMS clear with good light reflex. THROAT: Pharynx clear, no exudate. NECK: Supple. No adenopathy, no masses. RESPIRATORY: Airway patent, respirations nonlabored. Clear to auscultation bilaterally, no rales, rhonchi, wheezing. CARDIOVASCULAR: Regular rate and rhythm without murmurs rubs or gallops. ABDOMINAL: Soft, nontender, nondistended, normal bowel sounds MUSCULOSKELETAL: Moves all extremities. Strength/ROM intact, No edema, No calf tenderness. NEURO: Alert. Able to follow commands both upper extremities and passive range of motion both lower extremities SKIN: Warm, dry. Normal Color Course Vital Signs Vital signs: Vital Signs Temperature 98.5 F 08/11/24 05:40 Pulse Rate 60 08/11/24 05:40 Respiratory Rate 16 08/11/24 05:40 Blood Pressure 142/62 H 08/11/24 05:40 Pulse Oximetry 98 08/11/24 05:40 Oxygen Delivery Room Air 08/11/24 05:40 Temperature 97.6 F 08/11/24 14:00 Pulse Rate 61 08/11/24 14:00 Respiratory Rate 20 08/11/24 14:00 Blood Pressure 151/62 H 08/11/24 14:00 Pulse Oximetry 97 08/11/24 15:31 Oxygen Delivery Room Air 08/11/24 15:31 Medical Decision Making MDM Narrative Medical decision making narrative: 74-year-old male present to the emergency department for evaluation for onset of altered mental status yesterday. Patient is currently afebrile with a minor leukocytosis of 10.4 and hemoglobin 11.9. INR is 1.1. Patient's sodium was 136 with no other significant acute abnormalities on his CMP, head CT was ordered and does show acute/subacute infarct of the right parietal region. MRI was advised. Patient is potentially greater than 24 hours out from onset of CVA at time of evaluation Differential Diagnosis Differential Diagnosis: CVA, TIA Vital Signs Vital Signs: Vital Signs Temperature 98.5 F 08/11/24 05:40 Pulse Rate 60 08/11/24 05:40 Respiratory Rate 16 08/11/24 05:40 Blood Pressure 142/62 H 08/11/24 05:40 Pulse Oximetry 98 08/11/24 05:40 Oxygen Delivery Room Air 08/11/24 05:40 Temperature 97.6 F 08/11/24 14:00 Pulse Rate 61 08/11/24 14:00 Respiratory Rate 20 08/11/24 14:00 Blood Pressure 151/62 H 08/11/24 14:00 Pulse Oximetry 97 08/11/24 15:31 Oxygen Delivery Room Air 08/11/24 15:31 Lab Data Lab results reviewed: Yes I reviewed the patient's lab results. 08/11/24 05:50 08/11/24 05:50 Labs: Lab Results 08/11/24 08/11/24 08/11/24 Range/Units 05:50 07:22 08:53 WBC 10.4 H (4.5-10.0) K/mm3 RBC 4.17 L (4.6-6.20) M/mm3 Hgb 11.9 L (14.0-18.0) g/dL Hct 37.5 L (42.0-52.0) % MCV 89.9 (80-100) fl MCH 28.5 (26-34) pg MCHC 31.7 L (32-36) g/dl RDW 15.5 H (11.5-14.5) % Plt Count 220 (150-375) k/mm3 MPV 12.0 H (7.4-10.4) fl Immature Gran % (Auto) 0.4 (0-0.5) % Neut % (Auto) 69.7 (45.5-73.1) % Lymph % (Auto) 18.5 (18.3-44.2) % Crisp % (Auto) 9.8 H (2.6-8.5) % Eos % (Auto) 1.1 (0-4.4) % Baso % (Auto) 0.5 (0.2-1.2) % Lymph # (Auto) 1.92 (0.9-3.2) K/mm3 Crisp # (Auto) 1.0 H (0.1-0.6) K/mm3 Eos # (Auto) 0.1 (0-0.3) K/mm3 Baso # (Auto) 0.1 (0.0-0.1) K/mm3 Abs Immat Gran (auto) 0.04 H (0.00-0.031) K/mm3 Absolute Neuts (auto) 7.2 H (1.3-6.7) K/mm3 Absolute Nucleated RBC 0.000 (0.0-0.012) K/mm3 Nucleated RBC % 0.0 (0.0-0.2) % PT 14.3 (11.1-14.7) Seconds INR 1.1 APTT 22.6 (22.3-36.8) Seconds Sodium 136 L (137-145) mmol/L Potassium 3.8 (3.4-5.0) mmol/L Chloride 102 (98-107) mmol/L Carbon Dioxide 23 (22-30) mmol/L Anion Gap 11 (4-12) mmol/L BUN 16 (9-20) mg/dL Creatinine 0.95 (0.7-1.3) mg/dL Estim Creat Clear Calc 56 ml/min Estimated GFR > 60 (59 - ) Glucose 185 H (65-110) mg/dL Calcium 8.6 (8.4-10.2) mg/dL Total Bilirubin 1.6 H (0.2-1.3) mg/dL AST 34 (17-59) U/L ALT 28 (6-50) U/L Alkaline Phosphatase 80 (38-126) U/L Total Protein 7.0 (6.3-8.2) g/dL Albumin 3.9 (3.5-5.1) g/dL Urine Color Yellow (Yellow) Urine Appearance Clear (Clear) Urine pH 5.5 (5.0-9.0) Ur Specific [place] 1.015 (1.001-1.035) Urine Protein Trace (Negative) mg/dL Urine Glucose (UA) 1+ H (Negative) mg/dL Urine Ketones Negative (Negative) mg/dL Ur Blood (Man) Negative (Negative) Urine Nitrate Negative (Negative) Urine Bilirubin Negative (Negative) Urine Urobilinogen 0.2 (<2.0) mg/dL Leukocyte Esterase Rfl Trace H (Negative) CHARLIE/UL Urine RBC 0-2 (0-2) /hpf Urine WBC 6-10 H (0-3) /hpf Ur Squamous Epith Cells None seen (Few) /hpf Urine Bacteria None seen /hpf Urine Casts 0-2 Influenza A (RT-PCR) Negative (Negative) Influenza B (RT-PCR) Negative (Negative) RSV (RT-PCR) Negative (Negative) SARS-CoV-2 RNA (RT-PCR) Negative (Negative) Imaging Data Radiologist's impression: Impressions Head CT 08/11/24 07:27 IMPRESSION: Acute/subacute infarct in the right parietal area. MRI evaluation advised. Discharge Plan Discharge Clinical Impression: Acute CVA (cerebrovascular accident) Patient Disposition: Still a Patient Condition: Serious
[2024-08-11 08:06] LABS: Influenza A QL RT-PCR Negative (Negative); Influenza B QL RT-PCR Negative (Negative); RSV RNA, RT-PCR Negative (Negative); SARS-CoV-2 RNA PCR Negative (Negative)
[2024-08-11 09:04] LABS: Add Urine Microscopic? YES; Appearance Urine Clear (Clear); Bacteria Urine None Seen /hpf; Bilirubin Urine Negative (Negative); Blood Urine Negative (Negative); Color Urine Yellow (Yellow); Glucose Urine UA 1+ mg/dL (Negative); Ketones Urine Negative (Negative); Leukocyte Esterase Ur Trace LEU/UL (Negative); Nitrate Urine Negative (Negative); Non Pathogenic Casts 0-2; Protein Urine Trace mg/dL (Negative); RBC Urine 0-2 /hpf (0-2); Specific Grav Ur 1.015 (1.001-1.035); Squamous Epithelial Cell Urine None Seen /hpf (Few); Urobilinogen Urine 0.2 mg/dL (<2.0); pH Urine 5.5 (5.0-9.0)
--- NOTE | 2024-08-11 09:31 | PM.IMHP ---
H&P: HPI History of Present Illness Date/Time: 08/11/24 09:31 Chief Complaint: Altered Mental Status Narrative: 74-year-old male with coronary artery disease and s/p PCI to mid LAD in 05/2024 (indication: STEMI), PCI to OM2 and proximal LCX in 06/2024 (indication: staged PCI after STEMI), ischemic cardiomyopathy with an EF of 40 to 45%, hypertension, hyperlipidemia, type 2 diabetes mellitus, and benign prostatic hyperplasia who presented to the emergency department via EMS from home for evaluation of AMS. Patient was recently in the ED on 08/05 for altered mental status and discharged with close follow-up with the PCP. Today patient was a presented with altered mental status from yesterday. ED physician already spoke to on-call neurologist. Pertinent ED labs: WBC 10.4, hemoglobin 11.9, hematocrit 37.5, platelet 220, sodium 136, potassium 3.8, anion gap 11, creatinine 0.95, glucose 185, total bili 1.6, AST 34, ALT 28, alkaline phosphate 80. UA pending Head CT shows acute/subacute infarct in the right parietal area. MRI pending As mentioned in the HPI patient is known to was due to multiple admission due to chest pain. Currently patient is admitted in the setting of CVA. Patient had failed bedside swallow and will perform MBS tomorrow. MRI and CTA head and neck is pending. Discussed with who agrees to start aspirin and Brilinta before the MRI results. Had a long conversation with his daughter and discussed the goal of care. For now patient will be full code and will continue all aggressive measures. Review of Systems Review of Systems: All systems reviewed & are unremarkable except as noted in HPI and below [facility] Past Medical History Medical History Benign prostate hyperplasia ST elevation myocardial infarction (STEMI) (06/22/24) status post PCI to the LAD Ischemic cardiomyopathy Type 2 diabetes mellitus Hypertension Compression fracture of L4 vertebra Hyperlipidemia Urinary retention Chronic indwelling Joiner catheter Coronary artery disease Surgical History Surgical History History of open reduction and internal fixation (ORIF) procedure repair of left 4 through 9 rib fractures History of percutaneous coronary intervention (05/2024) PCI to the LAD Family History Family History Mother Family history unknown Social History Social History Social History: Surrogate medical decision maker: Delta Anderson, daughter ([phone]). Code status: Full code. Smoking status: Never smoker Second hand tobacco smoke exposure: No Alcohol intake: never Substance use: never Substance use type: does not use Do You Feel Safe in your Home?: Yes Lack of Transportation: YES Lack of Food: Never True Current Housing: I Have Housing Concerned About Future Housing: No Difficulty Paying Gas/Electric Bills: No Difficulty Paying for Meds: YES Currently Unemployed: No Education: Don't Know Difficulty w/ Childcare or Family Care: YES Living arrangements: with family Gender identity (if verbalized by the patient): Male Sexual Orientation (if Verbalized by the Patient): Straight or Heterosexual Spiritual care concerns: No Meds Home Medications and Allergies Home Medications ?Medication ?Instructions ?Recorded ?Confirmed ?Type insulin glargine 100 unit/mL 18 unit subcut DAILY DM 10/29/23 07/24/24 History subcutaneous solution (Lantus U-100 Insulin) insulin lispro 100 unit/mL 1 sliding scale dose subcut ACHS dm 10/29/23 07/24/24 History subcutaneous pen lactulose 10 gram/15 mL oral 30 ml PO TID 06/22/24 07/24/24 History solution ticagrelor 90 mg tablet (Brilinta) 90 mg PO Q12HR #90 tabs 06/24/24 07/24/24 Rx aspirin 81 mg tablet,delayed 81 mg PO QAM #90 tabs 06/25/24 07/24/24 Rx release atorvastatin 80 mg tablet (Lipitor) 80 mg PO DAILY #90 tabs 06/25/24 07/24/24 Rx losartan 25 mg tablet 25 mg PO DAILY #90 tabs 06/25/24 07/24/24 Rx metoprolol succinate 50 mg 50 mg PO DAILY #90 tabs 06/25/24 07/24/24 Rx tablet,extended release 24 hr (Toprol XL) tamsulosin 0.4 mg capsule 0.4 mg PO QAM #30 caps 07/01/24 07/24/24 Rx potassium chloride 20 mEq 20 meq PO BID 5 days #10 tabs 07/19/24 07/24/24 Rx tablet,extended release(part/cryst) (Klor-Con M) citalopram 10 mg tablet (Celexa) 10 mg PO DAILY #30 tabs 07/24/24 Rx Allergies Allergy/AdvReac Type Severity Reaction Status Date / Time No Known Allergies Allergy Verified 08/05/24 09:48 Vital Signs Vital Signs - 24 hr 08/11/24 05:40 08/11/24 07:26 Temperature 98.5 F Pulse Rate 60 51 L Respiratory Rate 16 16 Blood Pressure 142/62 H 121/52 L Pulse Oximetry 98 100 Oxygen Delivery Room Air Exam Narrative: Exam this morning revealed him to be awake alert cooperative, considering that he is not speaking [place] but the family member there who help him in the examination. His speech was of low volume and mainly communicated by shaking his head. Head was normocephalic with no bruit, ear nose throat examination was normal, neck was supple with no cervical bruit no thyromegaly no lymphadenopathy, heart was regular with no murmur, lungs clear with no rhonchi or crepitations, abdomen soft nontender, neurologically he was awake alert he knew the surrounding he follow the verbal commands mainly by the gestures, pupils round regular feels the vision full to threat stimuli extraocular movements spontaneously full with no nystagmus facial sensation intact facial grimace symmetric tongue in the oral cavity with no fasciculation motor examination revealed him to have ability to move both upper and lower extremities reflexes were symmetrical plantars were questionable. There was no evidence of gross cerebellar deficit. H&P: Results Labs Labs: Short CBC 08/11/24 Range/Units 05:50 WBC 10.4 H (4.5-10.0) K/mm3 Hgb 11.9 L (14.0-18.0) g/dL Hct 37.5 L (42.0-52.0) % Plt Count 220 (150-375) k/mm3 BMP 08/11/24 05:50 Sodium 136 L Potassium 3.8 Chloride 102 Carbon Dioxide 23 BUN 16 Creatinine 0.95 Glucose 185 H Calcium 8.6 Liver Function 08/11/24 Range/Units 05:50 Total Bilirubin 1.6 H (0.2-1.3) mg/dL AST 34 (17-59) U/L ALT 28 (6-50) U/L Alkaline Phosphatase 80 (38-126) U/L Albumin 3.9 (3.5-5.1) g/dL Assessment and Plan Assessment and plan (1) Ischemic cardiomyopathy: Code(s): I25.5 - Ischemic cardiomyopathy Status: Acute (2) Hypertension: Code(s): I10 - Essential (primary) hypertension Status: Acute (3) Hyperlipidemia: Code(s): E78.5 - Hyperlipidemia, unspecified Status: Acute (4) Type 2 diabetes mellitus: Code(s): E11.9 - Type 2 diabetes mellitus without complications Status: Acute (5) CVA (cerebral vascular accident): Code(s): I63.9 - Cerebral infarction, unspecified Status: Acute Plan CVA -MRI Brain:Pending -CTA neck.:Pending -CT Head : Acute/subacute infarct in the right parietal area. MRI evaluation advised. -06/24/2024: Echo shows Left ventricular systolic function is normal, estimated at 40%. no evidence of PFO -will do bedside swallow -Continue aspirin ,Brilinta and statin -LDL goal less than 70 -permissive hypertension less than 220/120 if no thrombolytics. -neurology consulted awaiting recommendation -spoke with the neurologist to agrees to continue aspirin and Brilinta before the MRI results -MBS tomorrow -Failed bedside swallow -MRI pending -Aspiration precaution CAD -Patient is s/p PCI to mid LAD in 05/2024 (indication: STEMI), PCI to OM2 and proximal LCX in 06/2024 (indication: staged PCI after STEMI) As per cardiology notes from previous admission on 07/24 -Continue aspirin 81 mg daily indefinitely -Continue Brilinta 90 mg b.i.d. for 1 year post PCI DM Will hold home insulin Order low-dose sliding scale Hypoglycemic protocol Will started D5 half-normal saline due to NPO DVT prophylaxis: SCD, will order Lovenox once MRI is performed Hospitalist MIPS Advance Care Plan I have confirmed that the patient's Advanced Care Plan is present, code status is documented, or surrogate decision maker is listed in patient medical record.: Yes Medication Reconciliation I have utilized all available resources to obtain, update and review the patients current medications (includes all prescriptions, OTC, herbals, cannabis, and nutritional supplements).: Yes
--- NOTE | 2024-08-11 11:52 | ADMGEN ---
This patient, Albaro Anderson, was admitted to 2 Medical Room 253-01. Patient/family oriented to hospital policies and general routines including ID bracelet, bed and alarms, visiting hours, pain management, procedures, bathroom and other care routines, personal items, smoking policy, room service/diet, and visiting hours. Information on how to activate the Rapid Response Team has been discussed. Patient/Family are encouraged to report perceived risks to care and to ask questions if they do not understand what they are told or what they should do.
--- NOTE | 2024-08-11 12:13 | P.CONNEU_ITS ---
Assessment and Plan Assessment and plan (1) Type 2 diabetes mellitus: Code(s): E11.9 - Type 2 diabetes mellitus without complications Status: Acute (2) Nausea & vomiting: Code(s): R11.2 - Nausea with vomiting, unspecified Status: Acute Plan 1. Change in the mental status with no specific metabolic abnormalities except the blood sugar raising the possibility of intracranial pathology, CT scan of the head is abnormal MRI will be obtained to differentiate between the old or new stroke. In addition Doppler study of the carotid will be obtained and also the echocardiogram. EEG will be also obtained to rule out the possibility of the encephalopathy versus seizure secondary to the simple structural abnormalities secondary to the stroke. He is already taking aspirin 81mg daily, atorvastatin 80mg, Brilinta 90mg q.12 hours per so all the medication will be continued as such Consult date: 08/11/24 HPI: Albaro Anderson is a 74 year old male Admitted to the hospital through the emergency room for the complaints of change in the mental status with unclear duration but on arrival in the ER he was somnolent, his medications were listed insulin 18units subQ daily, sliding scale accordingly, and lactulose 30cc 3 times a day, reportedly he is not allergic to any medication but in the past he has ongoing history of 1. Benign prostatic hyperplasia 2. Ischemic cardiomyopathy 3. Type 2 diabetes mellitus 4. Hypertension and 5. Chronic indwelling Joiner catheter 6. Never smoker or alcohol intake. On initial evaluation in the emergency room his vital signs were normal, CBC was normal, BMP with blood sugar of 185, master scan normal, initial exam in the ER was grossly nonfocal. CT scan of the brain revealed acute versus subacute infarct in the right parietal area, chest x-ray negative. He has been taking aspirin 81mg daily, atorvastatin 80mg daily, Brilinta 90mg q.12 hours, citalopram 10mg daily, losartan 25mg daily, metoprolol ER 50mg daily, tamsulosin 0.4mg daily, and insulin according. Review of Systems 2 Review of Systems: All systems reviewed & are unremarkable except as noted in HPI and below [facility] Past Medical History Medical History Benign prostate hyperplasia ST elevation myocardial infarction (STEMI) (06/22/24) status post PCI to the LAD Ischemic cardiomyopathy Type 2 diabetes mellitus Hypertension Compression fracture of L4 vertebra Hyperlipidemia Urinary retention Chronic indwelling Joiner catheter Coronary artery disease Surgical History Surgical History History of open reduction and internal fixation (ORIF) procedure repair of left 4 through 9 rib fractures History of percutaneous coronary intervention (05/2024) PCI to the LAD Family History Family History Mother Family history unknown Social History Social History Social History: Surrogate medical decision maker: Delta Anderson, daughter ([phone]). Code status: Full code. Smoking status: Never smoker Second hand tobacco smoke exposure: No Alcohol intake: never Substance use: never Substance use type: does not use Do You Feel Safe in your Home?: Yes Lack of Transportation: YES Lack of Food: Never True Current Housing: I Have Housing Concerned About Future Housing: No Difficulty Paying Gas/Electric Bills: No Difficulty Paying for Meds: YES Currently Unemployed: No Education: Don't Know Difficulty w/ Childcare or Family Care: YES Living arrangements: with family Gender identity (if verbalized by the patient): Male Sexual Orientation (if Verbalized by the Patient): Straight or Heterosexual Spiritual care concerns: No Meds Home Medications and Allergies Home Medications ?Medication ?Instructions ?Recorded ?Confirmed ?Type insulin glargine 100 unit/mL 18 unit subcut DAILY DM 10/29/23 07/24/24 History subcutaneous solution (Lantus U-100 Insulin) insulin lispro 100 unit/mL 1 sliding scale dose subcut ACHS dm 10/29/23 07/24/24 History subcutaneous pen lactulose 10 gram/15 mL oral 30 ml PO TID 06/22/24 07/24/24 History solution ticagrelor 90 mg tablet (Brilinta) 90 mg PO Q12HR #90 tabs 06/24/24 07/24/24 Rx aspirin 81 mg tablet,delayed 81 mg PO QAM #90 tabs 06/25/24 07/24/24 Rx release atorvastatin 80 mg tablet (Lipitor) 80 mg PO DAILY #90 tabs 06/25/24 07/24/24 Rx losartan 25 mg tablet 25 mg PO DAILY #90 tabs 06/25/24 07/24/24 Rx metoprolol succinate 50 mg 50 mg PO DAILY #90 tabs 06/25/24 07/24/24 Rx tablet,extended release 24 hr (Toprol XL) tamsulosin 0.4 mg capsule 0.4 mg PO QAM #30 caps 07/01/24 07/24/24 Rx potassium chloride 20 mEq 20 meq PO BID 5 days #10 tabs 07/19/24 07/24/24 Rx tablet,extended release(part/cryst) (Klor-Con M) citalopram 10 mg tablet (Celexa) 10 mg PO DAILY #30 tabs 07/24/24 Rx Allergies Allergy/AdvReac Type Severity Reaction Status Date / Time No Known Allergies Allergy Verified 08/05/24 09:48 Vital Signs Vital Signs - 24 hr 08/11/24 05:40 08/11/24 07:26 08/11/24 10:24 Temperature 36.9 C Pulse Rate 60 51 L 51 L Respiratory Rate 16 16 16 Blood Pressure 142/62 H 121/52 L 120/62 Pulse Oximetry 98 100 98 Oxygen Delivery Room Air Exam 2 Narrative: Exam this morning revealed him to be awake alert cooperative, considering that he is not speaking [place] but the family member there who help him in the examination. His speech was of low volume and mainly communicated by shaking his head. Head was normocephalic with no bruit, ear nose throat examination was normal, neck was supple with no cervical bruit no thyromegaly no lymphadenopathy, heart was regular with no murmur, lungs clear with no rhonchi or crepitations, abdomen soft nontender, neurologically he was awake alert he knew the surrounding he follow the verbal commands mainly by the gestures, pupils round regular feels the vision full to threat stimuli extraocular movements spontaneously full with no nystagmus facial sensation intact facial grimace symmetric tongue in the oral cavity with no fasciculation motor examination revealed him to have ability to move both upper and lower extremities reflexes were symmetrical plantars were questionable. There was no evidence of gross cerebellar deficit. Results Labs 08/11/24 05:50 08/11/24 05:50 Labs: Short CBC 08/11/24 Range/Units 05:50 WBC 10.4 H (4.5-10.0) K/mm3 Hgb 11.9 L (14.0-18.0) g/dL Hct 37.5 L (42.0-52.0) % Plt Count 220 (150-375) k/mm3 BMP 08/11/24 05:50 Sodium 136 L Potassium 3.8 Chloride 102 Carbon Dioxide 23 BUN 16 Creatinine 0.95 Glucose 185 H Calcium 8.6 Liver Function 08/11/24 Range/Units 05:50 Total Bilirubin 1.6 H (0.2-1.3) mg/dL AST 34 (17-59) U/L ALT 28 (6-50) U/L Alkaline Phosphatase 80 (38-126) U/L Albumin 3.9 (3.5-5.1) g/dL Urine 08/11/24 Range/Units 08:53 Urine Color Yellow (Yellow) Urine Appearance Clear (Clear) Urine pH 5.5 (5.0-9.0) Ur Specific [place] 1.015 (1.001-1.035) Urine Protein Trace (Negative) mg/dL Urine Glucose (UA) 1+ H (Negative) mg/dL
--- NOTE | 2024-08-11 13:41 | PCSTNOTE ---
Please refer to the Bedside Swallow Evaluation in the EMR. Please note, silent aspiration cannot be ruled out at bedside. This 74 year old pt was seen this date to assess safety swallowing during oral intake. The pt was admitted on 08/11 due to altered mental status. The pt is Polish and his son was present to translate for ST during this evaluation. Upon entry, the pt was lying down. ST got the pt to a good, sitting up position before beginning the BSE. The pt's son verbalized that the pt has been coughing a lot during meals, especially when drinking water . The pt required maximum repetition this date to follow directions. Trials of thin liquids, puree (pudding), and mixed consistency (fruit cocktail) were trialed at bedside. The pt required maximum cueing and encouragement to participate in the BSE which ST would provide and son would translate. The pt exhibited a cough on almost every consistency. He did not cough on the fruit cocktail, but demonstrated a wet vocal quality following that trial. BSE was discontinued at this time. Laryngeal elevation was timely and adequate throughout this evaluation. Delayed triggering of the swallow occurred on 2 trials of thin liquids. Please note that silent aspiration cannot be ruled out at bedside. Due to the pt showing s/s of aspiration on every consistency at bedside, it is recommended that the pt be NPO until the completion of a MBS. MBS cannot be completed today, 08/11 due to no Radiologist being on site. MBS to be completed tomorrow, 08/12. Dr. RIVERA and JEREMY Nieto notified of results and recommendations. Thank you for this referral.
[2024-08-11] MEDS: DEXTROSE 5%/0.45% SOD CHL 1,000 ML 70 ML IV CONT (14:30)
[2024-08-11] MEDS: TICAGRELOR 90 MG TABLET PO (21:33)
[2024-08-11 23:05] LABS: Glucose Point of Care 203 mg/dl (65-105)
[2024-08-12] VITALS (9 sets, daily range): BP systolic 118–173; BP diastolic 55–102; PULSE 49–88; RESP 18–20; TEMP 36.6–37.1; O2SAT 95–99; BMI 21.7
[2024-08-12] MEDS: DEXTROSE 5%/0.45% SOD CHL 1,000 ML 70 ML IV CONT (05:25)
[2024-08-12] MEDS: ATORVASTATIN 40 MG TABLET 80 MG PO (08:49)
[2024-08-12] MEDS: TICAGRELOR 90 MG TABLET PO ×2 (08:49→20:31)
[2024-08-12] MEDS: ASPIRIN 81 MG CHEWABLE TABLET PO (08:49)
--- NOTE | 2024-08-12 12:40 | PCSTNOTE ---
Please refer to the Modified Barium Swallow Evaluation in the EMR.
[2024-08-12 12:45] LABS: Glucose Point of Care 232 mg/dl (65-105)
[2024-08-12] MEDS: INSULIN ASPART (*BKC) 100 UNITS/ML SUB-Q (12:57)
--- NOTE | 2024-08-12 14:59 | PM.IMPN ---
Progress Note: A&P Assessment and Plan (1) Ischemic cardiomyopathy: Code(s): I25.5 - Ischemic cardiomyopathy Status: Acute (2) Hypertension: Code(s): I10 - Essential (primary) hypertension Status: Acute (3) Hyperlipidemia: Code(s): E78.5 - Hyperlipidemia, unspecified Status: Acute (4) Type 2 diabetes mellitus: Code(s): E11.9 - Type 2 diabetes mellitus without complications Status: Acute (5) CVA (cerebral vascular accident): Code(s): I63.9 - Cerebral infarction, unspecified Status: Acute Plan CVA -sp MRI Brain -sp CTA neck. -sp CT Head : Acute/subacute infarct in the right parietal area. MRI evaluation advised. -06/24/2024: Echo shows Left ventricular systolic function is normal, estimated at 40%. no evidence of PFO -Continue aspirin ,Brilinta and statin -sp speech assessment - PT/ OT / ST - plan dc joseph with services CAD -Patient is s/p PCI to mid LAD in 05/2024 (indication: STEMI), PCI to OM2 and proximal LCX in 06/2024 (indication: staged PCI after STEMI) As per cardiology notes from previous admission on 07/24 -Continue aspirin 81 mg daily indefinitely -Continue Brilinta 90 mg b.i.d. for 1 year post PCI DM Will hold home insulin Order low-dose sliding scale Hypoglycemic protocol pt ok to eat and drink thickened liquids and reg DM food Subjective Date/time seen: 08/12/24 14:59 Interval history: 74-year-old male with coronary artery disease and s/p PCI to mid LAD in 05/2024 (indication: STEMI), PCI to OM2 and proximal LCX in 06/2024 (indication: staged PCI after STEMI), ischemic cardiomyopathy with an EF of 40 to 45%, hypertension, hyperlipidemia, type 2 diabetes mellitus, and benign prostatic hyperplasia who presented to the emergency department via EMS from home for evaluation of AMS. Pt having left am weakness pt seen by neurology pt having stroke work up MRI positive for stroke long discussion with father and son in the room son would like him to come home pt has swallow assessment ok for reg diet and thickened liquids Continue PT/ OT and plan dc joseph with services Review of Systems Review of Systems: Ongoing weakness in his left arm and milder weakness in left leg no vision problems Exam Narrative: General: Well-developed male sitting up in chair no distress. Weight: 69.5 kg. BMI: 22.0. HEENT: Normocephalic, atraumatic. PERRL, EOMI. Sclera anicteric. Oral mucosa moist. Oropharynx clear. Neck: Supple. Respiratory: Lungs are clear to auscultation bilaterally. Cardiovascular: Regular rate and rhythm with S1-S2. Gastrointestinal: Abdomen is soft, nontender, and nondistended with positive bowel sounds. Skin: Warm and dry. No rash or lesions on limited exam. Extremities: No cyanosis, clubbing, or edema. Radial and pedal pulses intact. Musculoskeletal: There is a deformity of the left shoulder without tenderness to palpation or evidence of recent trauma. He does complain of pain with palpation of the anterolateral right shoulder and reports pain with forward flexion. Neurological: Alert. Cranial nerves 2-12 are grossly intact. L arm weakness mild L leg weakness Psychiatric: Pleasant and cooperative with appropriate mood. Objective Data Vital Signs Vital Signs: Vital Signs - 24 hr 08/11/24 15:31 08/11/24 16:00 08/11/24 20:00 Temperature Pulse Rate 78 63 Respiratory Rate Blood Pressure Pulse Oximetry 97 Oxygen Delivery Room Air 08/11/24 20:03 08/12/24 00:00 08/12/24 04:00 Temperature 37.1 C Pulse Rate 63 68 67 Respiratory Rate 20 Blood Pressure 130/64 Pulse Oximetry 96 Oxygen Delivery 08/12/24 06:00 08/12/24 08:00 08/12/24 08:00 Temperature 36.6 C Pulse Rate 65 49 L Respiratory Rate 20 Blood Pressure 130/55 L Pulse Oximetry 99 Oxygen Delivery Room Air 08/12/24 12:00 08/12/24 14:00 Temperature 37.1 C Pulse Rate 69 88 Respiratory Rate 18 Blood Pressure 173/95 H Pulse Oximetry 95 Oxygen Delivery Intake/Output Intake/Output: Intake & Output 08/09/24 08/10/24 08/11/24 08/12/24 23:59 23:59 23:59 23:59 Intake Total 0 1000 Output Total 6 Balance 0 994 Meds/Results Medications: Active Medications Generic Name Dose Route Start Last Admin Trade Name Freq PRN Reason Stop Dose Admin Aspirin 81 mg 08/12/24 08:00 08/12/24 08:49 Aspirin 81 Mg Chewable Tablet PO 81 mg DAILY@0800 SVETLANA Administration Atorvastatin Calcium 80 mg 08/11/24 14:00 08/12/24 08:49 Atorvastatin 40 Mg Tablet PO 80 mg DAILY SVETLANA Administration Dextrose 12.5 gm 08/11/24 13:58 Dextrose 50% 25 Gm/50 Ml Syringe IV PUSH PRN PRN Hypoglycemia Protocol Glucagon 1 mg 08/11/24 13:58 Glucagon For Inj 1 Mg Vial IM PRN PRN Hypoglycemia Protocol Glucose 15 gm 08/11/24 13:58 Glucose Oral Gel 15 Gm Of Glucse In 37.5 Gm Tube PO PRN PRN Hypoglycemia Protocol Dextrose 1,000 mls @ 100 mls/hr 08/11/24 13:58 Dextrose 5% 1,000 Ml IVPB PRN PRN Hypoglycemia Protocol Insulin Aspart 2 - 5 units 08/11/24 17:00 08/12/24 12:57 Insulin Aspart (*Bkc) 100 Units/Ml SUB-Q 2 units TIDWM SVETLANA Administration Protocol Ticagrelor 90 mg 08/11/24 21:00 08/12/24 08:49 Ticagrelor 90 Mg Tablet PO 90 mg Q12HR SVETLANA Administration Radiology Results: ITS Impressions Head CT 08/11/24 07:27 IMPRESSION: Acute/subacute infarct in the right parietal area. MRI evaluation advised. Brain MRI 08/12/24 10:45 IMPRESSION: 1. Evaluation mildly limited by motion artifact which affects most prominently the sensitivity on postcontrast imaging. 2. Multiple acute infarcts in the right cerebral hemisphere including the right frontal, parietal and posterior temporal lobes suggesting sharp emboli in the right middle cerebral artery vascular distribution. 3. Additional chronic infarcts in the left basal ganglia and right parietal and occipital lobes. Head/Neck CTA 08/12/24 11:41 IMPRESSION: Complete occlusion of the right internal carotid artery above the bifurcation of the common carotid artery. Bilateral atherosclerotic changes of the carotid arteries. 60% narrowing of the left internal carotid artery. Modified Barium Swallow 08/12/24 12:49 IMPRESSION: Pharyngeal dysphagia with laryngeal penetration and aspiration. Please correlate with speech pathologist findings and specific feeding recommendations. Labs Labs: Laboratory Results - last 24 hr 08/11/24 08/12/24 23:01 12:43 POC Capillary Glucose 203 H 232 H
--- NOTE | 2024-08-12 17:11 | WPDNEUROPN ---
Progress Note: A&P Assessment and Plan (1) Acute CVA (cerebrovascular accident): Code(s): I63.9 - Cerebral infarction, unspecified Status: Acute Assessment and Plan: MRI of the brain confirmed acute infarcts in the right middle cerebral artery distribution. This appears to have been a shower of emboli according to the radiologist. I reviewed the films and agree with the findings. Patient is already on dual antiplatelets and statins and these should be continued. Physical therapy and occupational therapy is to continue. I have explained the findings to the patient's son who voices understanding of the same. (2) STEMI (ST elevation myocardial infarction): Code(s): I21.3 - ST elevation (STEMI) myocardial infarction of unspecified site Status: Acute Assessment and Plan: As noted above he has had myocardial infarction with ST elevation in June 22, 2024 and for which she underwent treatment here. This is stable at this time. Plan Patient has a good support system with his and son at home. Physical therapy and occupational therapy are in place and is already on dual antiplatelets and a statin atorvastatin 80 mg a day and these should be continued. Subjective Date/time seen: 08/12/24 17:11 Interval history: The patient is 74 years old with the left-sided weakness. He just came from MRI when I came to see him. I reviewed the MRI film that shows evidence of a multiple infarcts in the right middle cerebral artery distribution. Patient continues to weaken the left side of the body particular in the left arm. Son was present and was indeed very helpful. No other symptoms reported. Records were reviewed. There is a history of coronary artery disease and he had a myocardial infarction in May 2024. He has been on Brilinta, aspirin and Lipitor. There is also history of benign post date hypertrophy and is a chronic urinary catheter in place. A CT scan of brain performed on 08/11/2024 shows findings in addition to what was seen on 08/05/2024 since he happened to have had a CT scan then. This is further confirmed by the MRI of the brain. Review of Systems Review of Systems: All systems reviewed & are unremarkable except as noted in HPI and below Exam Narrative: Patient is awake and alert. Due to the language it is difficult to communicate very much with him and much of the discussion was held through his son. No aphasia. visual mccormack by confrontation are grossly normal. He has a mild weakness of the left upper limb however he is able to hold it against gravity but has mild weakness power grade 4/5. Normal strength in both lower limbs. Normal strength noted in the right upper limb. No involuntary movements are seen. Objective Data Vital Signs Vital Signs: Vital Signs - 24 hr 08/11/24 20:00 08/11/24 20:03 08/12/24 00:00 Temperature 98.8 F Pulse Rate 63 63 68 Respiratory Rate 20 Blood Pressure 130/64 Pulse Oximetry 96 Oxygen Delivery 08/12/24 04:00 08/12/24 06:00 08/12/24 08:00 Temperature 97.9 F Pulse Rate 67 65 49 L Respiratory Rate 20 Blood Pressure 130/55 L Pulse Oximetry 99 Oxygen Delivery 08/12/24 08:00 08/12/24 12:00 08/12/24 14:00 Temperature 98.7 F Pulse Rate 69 88 Respiratory Rate 18 Blood Pressure 173/95 H Pulse Oximetry 95 Oxygen Delivery Room Air Intake/Output Intake/Output: Intake & Output 08/09/24 08/10/24 08/11/24 08/12/24 23:59 23:59 23:59 23:59 Intake Total 0 1000 Output Total 6 Balance 0 994 Meds/Results Medications: Active Medications Generic Name Dose Route Start Last Admin Trade Name Freq PRN Reason Stop Dose Admin Alprazolam 0.5 mg 08/12/24 17:06 Alprazolam (*Crx) 0.5 Mg Tablet PO TID PRN Anxiety Aspirin 81 mg 08/12/24 08:00 08/12/24 08:49 Aspirin 81 Mg Chewable Tablet PO 81 mg DAILY@0800 SVETLANA Administration Atorvastatin Calcium 80 mg 08/11/24 14:00 08/12/24 08:49 Atorvastatin 40 Mg Tablet PO 80 mg DAILY SVETLANA Administration Dextrose 12.5 gm 08/11/24 13:58 Dextrose 50% 25 Gm/50 Ml Syringe IV PUSH PRN PRN Hypoglycemia Protocol Glucagon 1 mg 08/11/24 13:58 Glucagon For Inj 1 Mg Vial IM PRN PRN Hypoglycemia Protocol Glucose 15 gm 08/11/24 13:58 Glucose Oral Gel 15 Gm Of Glucse In 37.5 Gm Tube PO PRN PRN Hypoglycemia Protocol Dextrose 1,000 mls @ 100 mls/hr 08/11/24 13:58 Dextrose 5% 1,000 Ml IVPB PRN PRN Hypoglycemia Protocol Insulin Aspart 2 - 5 units 08/11/24 17:00 08/12/24 12:57 Insulin Aspart (*Bkc) 100 Units/Ml SUB-Q 2 units TIDWM SVETLANA Administration Protocol Ticagrelor 90 mg 08/11/24 21:00 08/12/24 08:49 Ticagrelor 90 Mg Tablet PO 90 mg Q12HR SVETLANA Administration Radiology Results: ITS Impressions Head CT 08/11/24 07:27 IMPRESSION: Acute/subacute infarct in the right parietal area. MRI evaluation advised. Brain MRI 08/12/24 10:45 IMPRESSION: 1. Evaluation mildly limited by motion artifact which affects most prominently the sensitivity on postcontrast imaging. 2. Multiple acute infarcts in the right cerebral hemisphere including the right frontal, parietal and posterior temporal lobes suggesting sharp emboli in the right middle cerebral artery vascular distribution. 3. Additional chronic infarcts in the left basal ganglia and right parietal and occipital lobes. Head/Neck CTA 08/12/24 11:41 IMPRESSION: Complete occlusion of the right internal carotid artery above the bifurcation of the common carotid artery. Bilateral atherosclerotic changes of the carotid arteries. 60% narrowing of the left internal carotid artery. Modified Barium Swallow 08/12/24 12:49 IMPRESSION: Pharyngeal dysphagia with laryngeal penetration and aspiration. Please correlate with speech pathologist findings and specific feeding recommendations. Labs Labs: Laboratory Results - last 24 hr 08/11/24 08/12/24 23:01 12:43 POC Capillary Glucose 203 H 232 H
[2024-08-12 17:19] LABS: Glucose Point of Care 200 mg/dl (65-105)
[2024-08-12] MEDS: ALPRAZolam (*CRX) 0.5 MG TABLET PO (20:31)
[2024-08-13] VITALS: PULSE 58
[2024-08-13 04:00] VITALS: PULSE 74
[2024-08-13 08:00] VITALS: PULSE 53
[2024-08-13 08:30] LABS: Glucose Point of Care 180 mg/dl (65-105)
[2024-08-13] MEDS: TICAGRELOR 90 MG TABLET PO ×2 (09:26→22:05)
[2024-08-13] MEDS: ASPIRIN 81 MG CHEWABLE TABLET PO (09:26)
[2024-08-13] MEDS: ATORVASTATIN 40 MG TABLET 80 MG PO (09:26)
[2024-08-13 11:28] LABS: Glucose Point of Care 204 mg/dl (65-105)
[2024-08-13] MEDS: INSULIN ASPART (*BKC) 100 UNITS/ML SUB-Q ×2 (12:32→16:27)
--- NOTE | 2024-08-13 13:07 | PM.DS ---
DS: Admitting Diagnosis Discharge Date 08/13/24 Admitting Diagnosis AMS DS: Discharge Diagnosis Discharge Diagnosis (1) Acute CVA (cerebrovascular accident): Code(s): I63.9 - Cerebral infarction, unspecified Status: Acute DS: Summary Hospital Course Hospital Course: 74-year-old male with coronary artery disease and s/p PCI to mid LAD in 05/2024 (indication: STEMI), PCI to OM2 and proximal LCX in 06/2024 (indication: staged PCI after STEMI), ischemic cardiomyopathy with an EF of 40 to 45%, hypertension, hyperlipidemia, type 2 diabetes mellitus, and benign prostatic hyperplasia who presented to the emergency department via EMS from home for evaluation of AMS. Patient was recently in the ED on 08/05 for altered mental status and discharged with close follow-up with the PCP. Today patient was a presented with altered mental status from yesterday. ED physician already spoke to on-call neurologist. Pertinent ED labs: WBC 10.4, hemoglobin 11.9, hematocrit 37.5, platelet 220, sodium 136, potassium 3.8, anion gap 11, creatinine 0.95, glucose 185, total bili 1.6, AST 34, ALT 28, alkaline phosphate 80. UA pending Head CT shows acute/subacute infarct in the right parietal area. MRI showed multiple right cerebral infarct. CTA head and neck showed complete right carotid occlusion. Neurology evaluated and recommended continuing Aspirin and Brilinta with Lipitor. Family declined rehab and stated they are taking patient home with home health. Discussed with dr Inocente Ralph from [facility] and he stated that patient does not need immediate intervention for carotid occlusion and he will follow up outpatient to monitor Left carotid stenosis. F/u with PCP in 3-5 days F/u with neurology and Vascular surgery Information provided to patient to call office for appointment with vascular surgery Time Spent with Patient Time attestation: Total time spent providing and/or coordinating discharge services: DS: Data Data Completed and Pending Labs on day of discharge: Labs from last 24 hours 08/13/24 08/13/24 08/12/24 11:26 08:26 17:15 POC Capillary Glucose 204 H 180 H 200 H Discharge Plan Discharge Attending physician on discharge: Ian Montesinos Consulting providers: Juan Antonio Richey Discharging Clinician: Ian Montesinos Anticipated Discharge Date/Time: 08/13/24 13:03 Patient Disposition: Home Health Service Activity: as tolerated Diet: heart healthy Discharge Instructions: Per Care Coordination, patient to [facility] for [facility]/OT and [facility] services. Agency will call to arrange initial visit week of 08/18/24. [address] Inocente Vazquez's Vascular surgery, office at [phone] for appointment Patient Instructions: Antibiotic Form, Ticagrelor (By mouth), Safe Use of Anticoagulants (DC), Stroke (GEN) Patient Language: Chinese Stand Alone Forms: General Discharge Information Follow-up/Referrals: Juan Antonio Richey MD [Physician] - (F/u with Neurology as instructed ) Nikolas,Donavon Chaidez MD [Primary Care Provider] - (F/u with PCP in 3-5 days) Discharge Medications: Continued lactulose 10 gram/15 mL solution 30 ml PO TID Brilinta 90 mg Tablet 90 mg PO Q12HR Qty: 90 3RF aspirin 81 mg Tablet,Delayed Release (Dr/Ec) 81 mg PO QAM Qty: 90 3RF atorvastatin [Lipitor] 80 mg tablet 80 mg PO DAILY Qty: 90 3RF losartan 25 mg Tablet 25 mg PO DAILY Qty: 90 3RF metoprolol succinate [Toprol XL] 50 mg tablet extended release 24 hr 50 mg PO DAILY Qty: 90 3RF tamsulosin 0.4 mg Capsule 0.4 mg PO QAM Qty: 30 0RF insulin glargine [Lantus U-100 Insulin] 100 unit/mL solution 18 unit SUBCUT DAILY insulin lispro 100 unit/mL insulin pen 1 sliding scale dose SUBCUT ACHS potassium chloride [Klor-Con M20] 20 mEq tablet,ER particles/crystals 20 meq PO BID 5 Days Qty: 10 0RF citalopram [Celexa] 10 mg tablet 10 mg PO DAILY Qty: 30 0RF Date of admission: 08/11/24 14:52 Primary Care Provider: Nikolas,Donavon Chaidez Admitting Provider: Carrillo Ferrer Attending physician on admission: Carrillo Ferrer Condition: Serious
[2024-08-13 14:00] VITALS: BP 150/62; PULSE 70; RESP 20; TEMP 36.8; O2SAT 97
[2024-08-13 16:27] LABS: Glucose Point of Care 274 mg/dl (65-105)
[2024-08-13] MEDS: polyethylene glycoL 3350 17 GM POWD.PACK PO (16:27)
[2024-08-13] MEDS: ALPRAZolam (*CRX) 0.5 MG TABLET PO (16:27)
[2024-08-13 20:12] VITALS: BP 157/65; PULSE 58; RESP 18; TEMP 36.6; O2SAT 100
[2024-08-13 21:54] LABS: Glucose Point of Care 201 mg/dl (65-105)
[2024-08-14] VITALS: PULSE 68
--- NOTE | 2024-08-14 | ECHO_ITS ---
Patient Info Name: Albaro Anderson Age: 74 years : 1950 Gender: Male Ht: 68 in Wt: 143 lbs BSA: 1.76 m2 HR: 68 bpm BP: 157 / 65 mmHg Heart Rhythm: Sinus Rhythm Technical Quality: Fair Exam Date: 08/14/2024 11:40 AM Exam Location: Echo Lab Patient Status: Inpatient Admit Date: 08/11/2024 Staff Ordering Physician: Ian Montesinos MD Nurse Advisor: Esme Long RDCS Attending Provider: Carrillo Ferrer MD Exam Type: CA echo doppler w bubble study Study Info Indications - Stroke Complete two-dimensional, color flow and Doppler transthoracic echocardiogram is performed with agitated saline. Contrast/Agitated Saline Contrast/Ag. Saline: Agitated Saline Amount: 6.00 ml IV Access Condition: patent with no signs of infiltration New IV Access: Antecubital Space Summary 1. Left ventricular chamber dimension is normal. 2. Left ventricular systolic function is normal, estimated at 55-60%. 3. Left ventricular septal wall motion is abnormal with septal motion related to bundle branch block. 4. The left ventricular diastolic function is grade I diastolic dysfunction. 5. The apical septum is hypokinetic. 6. Left atrial chamber dimension is mildly enlarged. 7. Intact interatrial septum visualized by color flow and agitated saline imaging. 8. There is mild mitral valve regurgitation. 9. There is moderate aortic valve sclerosis. 10. There is mild tricuspid valve regurgitation. Left Ventricle Left ventricular chamber dimension is normal. Left ventricular systolic function is normal, estimated at 55-60%. There is no increased left ventricular wall thickness. Left ventricular septal wall motion is abnormal with septal motion related to bundle branch block. The left ventricular diastolic function is grade I diastolic dysfunction. The apical septum is hypokinetic. All other diaz appear normal. Right Ventricle Right ventricular chamber dimension is normal. Right ventricular systolic function is normal. Left Atria Left atrial chamber dimension is mildly enlarged. Right Atria Right atrial chamber dimension is normal. Atrial Septum Intact interatrial septum visualized by color flow and agitated saline imaging. Aortic Valve The aortic valve is trileaflet. There is moderate aortic valve sclerosis. There is no aortic valve stenosis. There is trace aortic valve regurgitation. Pulmonic Valve The pulmonic valve is normal. There is no pulmonic valve stenosis. There is trace pulmonic regurgitation. Mitral Valve The mitral valve has calcified annulus. There is no mitral valve stenosis. There is mild mitral valve regurgitation. Tricuspid Valve The tricuspid valve leaflets are normal. There is no significant tricuspid valve stenosis. There is mild tricuspid valve regurgitation. No pulmonary hypertension, estimated pulmonary arterial systolic pressure is 27 mmHg. Pericardium/Pleural The pericardium appears normal. There is no pericardial effusion. Inferior Vena Cava Normal inferior vena cava with >50% collapse upon inspiration consistent with normal right atrial pressure, 8 mmHg. Aorta The aortic root size at the sinus of Valsalva is normal. There is mild aortic atherosclerosis. Left Ventricular Outflow Tract Name Value Normal LVOT 2D LVOT Diameter 2.0 cm LVOT Doppler LVOT Peak Gradient 4 mmHg LVOT Mean Gradient 2 mmHg LVOT VTI 23 cm LVOT VTI/AV VTI Ratio 0.8 LVOT Stroke Volume 70 ml LVOT CO 4.6 l/min LVOT CI 2.6 l/min/m2 Pulmonic Valve Name Value Normal RVOT Doppler RVOT Peak Gradient 3 mmHg PV Doppler PV Peak Gradient 7 mmHg Mitral Valve Name Value Normal MV Doppler MV Decel Greer 215 cm/s2 MV PHT 92 ms MV Area (PHT) 2.4 cm2 4.0-5.0 MV Diastolic Function MV E Peak Velocity 220 cm/s MV A Peak Velocity 220 cm/s MV E/A 1.0 MV Decel Time 317 ms MV Annular TDI MV E/e' (Septal) 18.8 <=8.0 MV E/e' (Lateral) 9.0 <=8.0 MV E/e' (Average) 13.9 Tricuspid Valve Name Value Normal TV Regurgitation Doppler TR Peak Velocity 217 cm/s TR Peak Gradient 19 mmHg Estimated PAP/RSVP RA Pressure 8 mmHg <=5 PA Systolic Pressure 27 mmHg <36 RV Systolic Pressure 27 mmHg <36 Aortic Valve Name Value Normal AV Doppler AV Peak Velocity 122 cm/s AV Peak Gradient 6 mmHg AV Mean Gradient 3 mmHg AV VTI 27 cm AV Area (Cont Eq VTI) 2.6 cm2 >=3.0 AV Area (Cont Eq Jr) 2.4 cm2 AV Regurgitation 2D LVOT Area 3.1 cm2 Ventricles Name Value Normal LV Dimensions 2D/MM IVS Diastolic Thickness (2D) 0.9 cm 0.6-1.0 LVID Diastole (2D) 4.5 cm 4.2-5.8 LVIW Diastolic Thickness (2D) 0.9 cm 0.6-1.0 LVID Systole (2D) 2.9 cm 2.5-4.0 LVOT Diameter 2.0 cm LV Mass (2D Cubed) 130.43 g 88.00-224.00 LV Mass Index (2D Cubed) 74 g/m2 49-115 Relative Wall Thickness (2D) 0.39 LV Fractional Shortening/Ejection Fraction 2D/MM LV Fractional Shortening (2D) 35 % 25-43 LV EF (2D Teicholz) 64 % 52-72 LV Diastolic Volume (4C MOD) 123 ml LV EF (4C MOD) 55 % LV Diastolic Volume (2C MOD) 133 ml LV EF (2C MOD) 58 % LV Diastolic Volume (BP MOD) 130 ml 62-150 LV Diastolic Volume Index (BP MOD) 74 ml/m2 34-74 LV Systolic Volume (BP MOD) 56 ml 21-61 LV Systolic Volume Index (BP MOD) 32 ml/m2 11-31 LV EF (BP MOD) 57 % 52-72 LV Diastolic Length (4C) 7.9 cm LV Systolic Length (4C) 7.2 cm LV Stroke Volume (4C MOD) 67 ml Atria Name Value Normal LA Dimensions LA Volume (4C A-L) 28 ml LA Volume (BP A-L) 45 ml Wall Motion Scoring Wall Motion Scoring Index: 1.06 Report Signatures
[2024-08-14 03:33] LABS: Glucose Point of Care 174 mg/dl (65-105)
[2024-08-14 04:00] VITALS: PULSE 68
[2024-08-14 06:00] VITALS: BP 160/84; PULSE 75; RESP 16; TEMP 36.4; O2SAT 99
[2024-08-14 08:00] VITALS: PULSE 46
[2024-08-14 08:22] LABS: Glucose Point of Care 194 mg/dl (65-105)
[2024-08-14] MEDS: TICAGRELOR 90 MG TABLET PO (09:42)
[2024-08-14] MEDS: ATORVASTATIN 40 MG TABLET 80 MG PO (09:42)
[2024-08-14] MEDS: polyethylene glycoL 3350 17 GM POWD.PACK PO (09:42)
[2024-08-14] MEDS: ASPIRIN 81 MG CHEWABLE TABLET PO (09:42)
[2024-08-14 11:41] LABS: Glucose Point of Care 288 mg/dl (65-105)
[2024-08-14 12:00] VITALS: PULSE 67
[2024-08-14] MEDS: INSULIN ASPART (*BKC) 100 UNITS/ML SUB-Q (12:22)
--- NOTE | 2024-08-14 13:30 | PM.DS ---
DS: Admitting Diagnosis Discharge Date 08/14/2024 Admitting Diagnosis AMS DS: Discharge Diagnosis Discharge Diagnosis (1) Acute CVA (cerebrovascular accident): Code(s): I63.9 - Cerebral infarction, unspecified Status: Acute Plan CVA -sp MRI Brain -sp CTA neck. -sp CT Head : Acute/subacute infarct in the right parietal area. MRI evaluation advised. -06/24/2024: Echo shows Left ventricular systolic function is normal, estimated at 40%. no evidence of PFO -Continue aspirin ,Brilinta and statin -sp speech assessment - PT/ OT / ST - plan dc joseph with services CAD -Patient is s/p PCI to mid LAD in 05/2024 (indication: STEMI), PCI to OM2 and proximal LCX in 06/2024 (indication: staged PCI after STEMI) As per cardiology notes from previous admission on 07/24 -Continue aspirin 81 mg daily indefinitely -Continue Brilinta 90 mg b.i.d. for 1 year post PCI DM Will hold home insulin Order low-dose sliding scale Hypoglycemic protocol pt ok to eat and drink thickened liquids and reg DM food DS: Summary Hospital Course Hospital Course: 74-year-old male with coronary artery disease and s/p PCI to mid LAD in 05/2024 (indication: STEMI), PCI to OM2 and proximal LCX in 06/2024 (indication: staged PCI after STEMI), ischemic cardiomyopathy with an EF of 40 to 45%, hypertension, hyperlipidemia, type 2 diabetes mellitus, and benign prostatic hyperplasia who presented to the emergency department via EMS from home for evaluation of AMS. Patient was recently in the ED on 08/05 for altered mental status and discharged with close follow-up with the PCP. Today patient was a presented with altered mental status from yesterday. ED physician already spoke to on-call neurologist. Pertinent ED labs: WBC 10.4, hemoglobin 11.9, hematocrit 37.5, platelet 220, sodium 136, potassium 3.8, anion gap 11, creatinine 0.95, glucose 185, total bili 1.6, AST 34, ALT 28, alkaline phosphate 80. UA pending Head CT shows acute/subacute infarct in the right parietal area. MRI showed multiple right cerebral infarct. CTA head and neck showed complete right carotid occlusion. ECHO showed EF 55-60% and venous doppler LUE scan negative. Neurology evaluated and recommended continuing Aspirin and Brilinta with Lipitor. Family declined rehab and stated they are taking patient home with home health. Discussed with dr Inocente Ralph from [facility] and he stated that patient does not need immediate intervention for carotid occlusion and he will follow up outpatient to monitor Left carotid stenosis. F/u with PCP in 3-5 days F/u with neurology and Vascular surgery Information provided to patient to call office for appointment with vascular surgery Time Spent with Patient Time attestation: Total time spent providing and/or coordinating discharge services: Exam Narrative: General: Well-developed male sitting up in chair no distress. Weight: 69.5 kg. BMI: 22.0. HEENT: Normocephalic, atraumatic. PERRL, EOMI. Sclera anicteric. Oral mucosa moist. Oropharynx clear. Neck: Supple. Respiratory: Lungs are clear to auscultation bilaterally. Cardiovascular: Regular rate and rhythm with S1-S2. Gastrointestinal: Abdomen is soft, nontender, and nondistended with positive bowel sounds. Skin: Warm and dry. No rash or lesions on limited exam. Extremities: No cyanosis, clubbing, or edema. Radial and pedal pulses intact. Musculoskeletal: There is a deformity of the left shoulder without tenderness to palpation or evidence of recent trauma. He does complain of pain with palpation of the anterolateral right shoulder and reports pain with forward flexion. Neurological: Alert. Cranial nerves 2-12 are grossly intact. L arm weakness mild L leg weakness Psychiatric: Pleasant and cooperative with appropriate mood. DS: Data Data Completed and Pending Labs on day of discharge: Labs from last 24 hours 08/14/24 08/14/24 08/13/24 11:36 08:17 20:18 POC Capillary Glucose 288 H 194 H 201 H 08/13/24 08/13/24 16:24 00:10 POC Capillary Glucose 274 H 174 H Discharge Plan Discharge Attending physician on discharge: Ian Montesinos Consulting providers: Juan Antonio Richey Discharging Clinician: Ian Montesinos Anticipated Discharge Date/Time: 08/13/24 13:03 Patient Disposition: Home Health Service Activity: as tolerated Diet: heart healthy Discharge Instructions: Per Care Coordination, patient to discharge with [facility] for PT/OT and [facility] services. Agency will call to arrange initial visit week of 08/18/24. Call Dr Inocente Vazquez's Vascular surgery, office at [phone] for appointment Patient Instructions: Antibiotic Form, Ticagrelor (By mouth), Safe Use of Anticoagulants (DC), Stroke (GEN) Patient Language: Croatian Stand Alone Forms: General Discharge Information Follow-up/Referrals: Juan Antonio Richey MD [Physician] - (F/u with Neurology as instructed ) Nikolas,Donavon Chaidez MD [Primary Care Provider] - (F/u with PCP in 3-5 days) Discharge Medications: Continued lactulose 10 gram/15 mL solution 30 ml PO TID Brilinta 90 mg Tablet 90 mg PO Q12HR Qty: 90 3RF aspirin 81 mg Tablet,Delayed Release (Dr/Ec) 81 mg PO QAM Qty: 90 3RF atorvastatin [Lipitor] 80 mg tablet 80 mg PO DAILY Qty: 90 3RF losartan 25 mg Tablet 25 mg PO DAILY Qty: 90 3RF metoprolol succinate [Toprol XL] 50 mg tablet extended release 24 hr 50 mg PO DAILY Qty: 90 3RF tamsulosin 0.4 mg Capsule 0.4 mg PO QAM Qty: 30 0RF insulin glargine [Lantus U-100 Insulin] 100 unit/mL solution 18 unit SUBCUT DAILY insulin lispro 100 unit/mL insulin pen 1 sliding scale dose SUBCUT ACHS potassium chloride [Klor-Con M20] 20 mEq tablet,ER particles/crystals 20 meq PO BID 5 Days Qty: 10 0RF citalopram [Celexa] 10 mg tablet 10 mg PO DAILY Qty: 30 0RF Date of admission: 08/11/24 14:52 Primary Care Provider: Nikolas,Donavon Chaidez Admitting Provider: Carrillo Ferrer Attending physician on admission: Carrillo Ferrer Condition: Serious
== END 2024-08-14 14:55 | disposition home health service (06) | DRG 45 ==
LOC: ANHED 06:57 → ANH2MED 10:16
PROVIDERS: Student in an Organized Health Care Education/Training Program; Admitting Provider General Practice; Emergency Provider Emergency Medicine; PCP Family Medicine Sports Medicine; Visit Provider Internal Medicine
DX: I63.231 Cerebral infarction due to unspecified occlusion or stenosis of right carotid arteries (principal); I25.5 Ischemic cardiomyopathy; I25.10 Atherosclerotic heart disease of native coronary artery without angina pectoris; I10 Essential (primary) hypertension; E11.9 Type 2 diabetes mellitus without complications; E78.5 Hyperlipidemia, unspecified; N40.1 Benign prostatic hyperplasia with lower urinary tract symptoms; R33.8 Other retention of urine; Z20.822 Contact with and (suspected) exposure to COVID-19; I25.2 Old myocardial infarction; Z79.4 Long term (current) use of insulin; Z95.5 Presence of coronary angioplasty implant and graft; Z79.82 Long term (current) use of aspirin; Z79.01 Long term (current) use of anticoagulants; G83.24 Monoplegia of upper limb affecting left nondominant side
CPT/HCPCS: 36415; 70450; 70496; 70498; 70553; 80053; 81001; 82948; 85025; 85610; 85730; 87086; 87637; 92526; 92610; 92611; 93005; 93306; 93971; 96375; 97110; 97116; 97161; 97165; 97530; 97535; 99285; A9270; A9579; G0378; G0379; J1815; Q9967

== ENCOUNTER 2024-08-16 02:59 | Emergency (ER) | payer OTHER, SELFPAY ==
--- NOTE | ~2024-08-16 | CT_ITS ---
CT of the Abdomen and Pelvis: Indication: Abdominal pain Technique: 2.5 mm axial scans were obtained through the abdomen and pelvis following intravenous adm inistration of 100 cc of Omnipaque 350. Dose reduction technique was used on this scan by utilizing a utomated exposure control and iterative reconstruction technique. The dose-length product (DLP) was 5 56.78 mGy-cm. COMPARISON: 03/12/2020 Findings: Scans through the lung bases are unremarkable. The liver, spleen, pancreas, gallbladder, adrenals and kidneys are within normal limits, aside from b ilateral renal cysts. There are atherosclerotic calcifications of the aorta. No lymphadenopathy. No bowel obstruction or bowel wall thickening. There is prominent stool at the rectum. Images through the pelvis were performed. Urinary bladder distended, otherwise unremarkable. No pelvi c mass seen. No ascites. There are chronic fracture deformities of the right superior and inferior pu bic rami. There are compression fractures of L1 and L4, likely chronic. Impression: Fecal impaction/constipation. Probable chronic compression fractures of L1 and L4. Reviewed, dictated and finalized at location . Impression: Fecal impaction/constipation. Probable chronic compression fractures of L1 and L4.
[2024-08-16 03:00] VITALS: BP 172/70; PULSE 56; RESP 15; TEMP 36.5; O2SAT 99
--- NOTE | 2024-08-16 03:41 | PC.NURSE ---
Twisting Press Operator used to converse with of patient and patient. Patient still a poor historian, but states abdominal pain. Patient's states he was discharged from this facility for weakness. Reports a previous stroke leaving him with left sided weakness. Patient reports to also have diabetes, hypertension, and stents placed. Patient's states he woke up and stated hospital . She could not get why he wanted to go but she thinks maybe it has something to do with urination or bowel movements. When asked when his last movements were, she states she does not know. She denied changes in his bowel or urinary habits, she was just assuming because he was rubbing his stomach. Patient reported to either use a walker or the assistance of his son to get around. Patient has no allergies to medicine. Patient able to follow commands, but has weakness to the left side. Reported as normal.
[2024-08-16 04:02] LABS: Basophils Absolute Auto 0.1 K/mm3 (0.0-0.1); Basophils Percent Auto 0.8 % (0.2-1.2); Eosinophils Absolute Auto 0.2 K/mm3 (0-0.3); Eosinophils Percent Auto 2.3 % (0-4.4); Hematocrit 38.1 % (42.0-52.0); Immature Granulocyte Absolute 0.01 K/mm3 (0.00-0.031); Immature Granulocyte Percent A 0.2 % (0-0.5); Lymphocytes Absolute Auto 1.71 K/mm3 (0.9-3.2); Lymphocytes Percent Auto 26.2 % (18.3-44.2); Mean Corpuscular HGB Conc 31.5 g/dl (32-36); Mean Corpuscular Hemoglobin 28.4 pg (26-34); Mean Corpuscular Volume 90.3 fl (80-100); Mean Platelet Volume 11.6 fl (7.4-10.4); Monocytes Absolute Auto 0.6 K/mm3 (0.1-0.6); Monocytes Percent Auto 8.9 % (2.6-8.5); Neutrophils Percent Auto 61.6 % (45.5-73.1); Platelet Count Result 185 k/mm3 (150-375); Red Blood Count 4.22 M/mm3 (4.6-6.20); Red Cell Distribution Width 15.2 % (11.5-14.5); White Blood Count 6.5 K/mm3 (4.5-10.0)
[2024-08-16 04:11] LABS: Alanine Aminotransferase 19 U/L (6-50); Albumin Level 3.6 g/dL (3.5-5.1); Alkaline Phosphatase 100 U/L (38-126); Anion Gap 9 mmol/L (4-12); Aspartate Amino Transferase 23 U/L (17-59); Bilirubin,Total 0.7 mg/dL (0.2-1.3); Blood Urea Nitrogen 21 mg/dL (9-20); Calcium 8.6 mg/dL (8.4-10.2); Carbon Dioxide 28 mmol/L (22-30); Chloride 102 mmol/L (98-107); Estimated CRCL calculation 50 ml/min; Estimated Glomerular Filt Rate > 60; Glucose 246 mg/dL (65-110); Lipase 301 U/L (23-300); Potassium 3.1 mmol/L (3.4-5.0); Sodium 139 mmol/L (137-145)
[2024-08-16 04:53] VITALS: BP 162/90; PULSE 59; RESP 14; O2SAT 99
[2024-08-16 05:04] LABS: Add Urine Microscopic? YES; Appearance Urine Clear (Clear); Bilirubin Urine Negative (Negative); Blood Urine Negative (Negative); Color Urine Yellow (Yellow); Glucose Urine UA Trace mg/dL (Negative); Ketones Urine Trace mg/dL (Negative); Leukocyte Esterase Ur Negative LEU/UL (Negative); Nitrate Urine Negative (Negative); Protein Urine 1+ mg/dL (Negative); Specific Grav Ur 1.021 (1.001-1.035)
[2024-08-16 05:14] LABS: RBC Urine None seen /hpf (0-2); WBC Urine 0-3 /hpf (0-3)
--- OUTSIDE RECORDS SUMMARY | 2024-08-16 06:24 | XMS_ITS | Clinical Summary ---
Author Organization [facility] Address [address] [place] [address] Care Team Providers Care Link Wire Fabric Machine Operator Name Role Phone Unknown, Provider Primary Care Provider Donavon Holguin MD Unavailable [phone] Source Comments [facility],non-owned Affiliates and Associated Physician Practices is amultiple site organization consisting of ambulatory clinics and hospital sitesin [place], [place], [place] and [place]. This disclosure is being madepursuant to the Care Everywhere program and may not contain all information available regarding this patient. Last updated 18.[facility] Allergies Active Allergy Reactions Criticality Noted Date [...] tablet 01/01/2023 Active Blood Glucose Monitoring Suppl (SpendCrowd Verio Flex System) w/Device KIT USE DIRECTED THREE TIMES DAILY 01/01/2023 Active erythromycin (Romycin) 5 MG/GM ophthalmic ointment 03/23/2023 Active Copper Mobileuch Ultra test strip USE TO TEST FOUR TIMES DAILY 03/27/2023 Active TRUEplus 5-Bevel Pen [place] 32G X 4 MM MISC USE TO INJECT INSULIN UP TO 5 TIMES DAILY 07/11/2023 Active TRUEplus Insulin Syringe 30G X 5/16 0.5 ML MISC USE DIRECTED EVERY DAY 01/01/2023 Active Lancets (SQLstreamTOUCH DELICA PLUS 33G EXTRA FINE LANCET) TEST [...] original. Could not [facility] [place] afford to provide a Home Health nurse [...] Follow up in: three months with PCP, Field Reporter, Mail Handler Equipment Operator, Batch Freezer Operator, Established eye acute care assistant and Director Of Event Management Last Assessment & Plan: Not on any [...] Follow up in: three months with PCP, Field Reporter, Mail Handler Equipment Operator, Batch Freezer Operator, Established eye acute care assistant and Director Of Event Management Infected wound 04/12/2020 Sacral wound 02/19/2020 Urinary [...] Office Visit [facility] - Ophthalmology [address] [place] [address] [phone] Health Maintenance Due Date Last Done Comments [...] this topic Medical Devices Implanted Type Area Dungeon Master Device Identifier Shelf Expiration Date Model / Serial / Lot Gd Pin Orth 450mm 3.2mm Cocr Xtd Acc Implanted:Qty: 1 on 01/31/2020 by Dipesh Felix MD at [facility] Right: Sacral Iliac Joint [employer] [id number] / / Wshr 12.7mm 6.5mm Set Unv Orth Ss 1mm Implanted:Qty: 1 on 01/31/2020 by Dipesh Felix MD at [facility] Right: Sacral Iliac Joint [employer] [id number] / / Cannulated Screw, 4.0mm X40mm 1/2 Thread Implanted:Qty: 2 on 01/31/2020 by Dipesh Felix MD at [facility] Right: Ankle [id number] / / 8.0 X 9.5 Fully Threaded Screw Implanted:Qty: 1 on 01/31/2020 by Dipesh Felix MD at [facility] [id number] / / Plate 8 Hl Unv Matrixrib Ti Bone Nonster Implanted:Qty: 5 on 02/05/2020 by Dipesh Hernandez MD at [facility] Right: Chest Wall [employer] [id number] / / 2.7 Mm Matrixrib Locking Screw, Self-Drilling, 11mm Implanted:Qty: 35 on 02/05/2020 by Dipesh Hernandez MD at [facility] Right: Chest Wall [id number] / / 2.7 Mm Matrixrib Locking Screw, Self-Drilling, 12mm Implanted:Qty: 2 on 02/05/2020 by Dipesh Hernandez MD at [facility] Right: Chest Wall [id number] 1 / / Plate 16 Hl Precontr Lck Lopro 4th Rb Implanted:Qty: 1 on 02/05/2020 by Dipesh Hernandez MD at [facility] Right: Chest Wall [employer] [id number] / / [employer] Uv Iol Ccaoto +23.0d Implanted:Qty: 1 on 09/28/2023 by Simeon Cannon MD at [facility] Left: Eye [employer] 02/20/2027 CCAOTO+23.0D / [id number] / N/A [employer] Iol Aspheric Uv Absorbing Iol Implanted:Qty: 1 on 10/12/2023 by Simeon Cannon MD at [facility] Right: Eye [employer] 02/18/2027 CCA0T0 +23.5D / [id number] / NA Procedures Procedure Name Priority Date/Time Associated Diagnosis Comments COMPREHENSIVE METABOLIC PANEL STAT 06/30/2020 2:29 PM [facility] HEMOGLOBIN A1C Routine 04/18/2020 11:09 AM [facility] from Last 3 Months or Most Recently Relevant to Health Maintenance Results * (ABNORMAL) COMPREHENSIVE METABOLIC PANEL (06/30/2020 2:29 PM [facility]) BUN 29(H) 7 - 26 mg/dL 06/30/2020 [...] 24(H) 7 - 23 06/30/2020 3:00 PM [facility] ACCOUNT [facility] Osmolality Calculated 294 270 - 300 mOsm/kg 06/30/2020 3:00 PM [facility] Albumin/Globulin Ratio 0.8(L) 1.1 - 2.3 06/30/2020 3:00 PM [facility] eGFR 60(L) >60 mL/min/1.7 3 m2 06/30/2020 3:00 PM [facility] Blood BLOOD SPECIMEN / Unknown Venipuncture / Unknown 06/30/2020 2:29 PM [facility] 06/30/2020 2:37 PM [facility] Shaggy James MD LAB - CHEMISTRY KATHY [facility] [address] [place] [address], [facility] [phone] * (ABNORMAL) HEMOGLOBIN A1C (04/18/2020 11:09 AM [facility]) Hemoglobin A1c 7.6(H) 4.4 - 6.3 % [...] Equal to or greater than 6.5% Reference: [place] [employer] Standards of Care in Diabetes -2014 In patients 70 years and older consider HbA1c target range of 7.0-7.5% Reference: Diabetes Mellitus in Older People: Position Statement on behalf of the International Association of Gerontology and Geriatrics (IAGG), the Diabetes Working Libertarian for Older People (EDWPOP), and the International Task Force of Experts in Diabetes. Ritesh Srinivasan, et al. J [place] Association. 2012 Test results diagnostic of diabetes should be repeated for confirmation. The Sebia Capillary 2 assay for the measurement of HbA1c is a National Glycohemoglobin Standardization Program (NGSP)certified method. Blood BLOOD SPECIMEN / Unknown Lab Venipuncture / Unknown 04/18/2020 11:09 AM [facility]NAGER [facility]GY [facility] ACCOUNT 04/18/2020 11:40 AM [facility] ACCOUNT Narrative [facility] - 04/19/2020 9:00 AM [facility] ACCOUNT note^note Zhane Granger MD LAB - CHEMISTRY OR DERABLES [facility] [address] [place] [address], [place] [phone] from Last 3 Months or Most Recently [...] 3:26 PM 02/19/2020 5:52 PM Care Teams Link Wire Fabric Machine Operator Relationship Specialty Start Date End Date Unknown, Provider PCP - General 08/30/23 Donavon Connor MD Family Medicine 08/30/23
--- OUTSIDE RECORDS SUMMARY | 2024-08-16 06:25 | XMS_ITS | Clinical Summary ---
Author Organization [facility] Address [facility] [place] [address] Care Team Providers Care Furniture Upholsterer Apprentice Name Role Phone Donavon Connor MD Primary Care Provider [phone] Allergies Active Allergy Reactions Criticality Noted Date Comments Gentamicin Other (see comment),Unknown Low 06/06/2019 Reaction: Reaction: Hydroxypropyl Methylcellulose Unknown 01/13/2014 Artificial tears ingredient Medications vitamin B-12 (CYANOCOBALAMI N) 500 MCG tabletIndicati ons:vitamin deficiency Take 1 tablet (500 mcg total) by mouth daily. 30 tablet 024 Active polyethylene glycol (GLYCOLAX) packetIndicati ons:Constipati on Take 240 mLs (17 g total) by mouth 2 (two) times daily as needed. Dissolve powder in 240 mL water 30 each 024 Active Gremaolf-Kyq-F e-FA (, W/IRON & FA, OR)Indications :Nutritional [...] DAILY FOR CONSTIPATION 473 mL 025 Active tamsulosin (FLOMAX) 0.4 MG CapIndications :Benign prostatic hyperplasia (BPH) suspected Take 1 capsule (0.4 mg total) by mouth daily. Indications: Benign prostatic hyperplasia (BPH) suspected 90 capsule 025 Active amLODIPine (NORVASC) 5 MG tabletIndicati ons:Hypertensi on Take 1 tablet (5 mg total) by mouth daily. Indications: High Blood Pressure 90 tablet 025 Active ALPRAZolam (XANAX) 0.25 MG tabletIndicati ons:Anxiety Take 1 tablet (0.25 mg total) by mouth 3 (three) times daily as needed for Anxiety. 30 tablet 025 Active tamsulosin (FLOMAX) 0.4 MG CapIndications :Benign prostatic hyperplasia (BPH) suspected Take 1 capsule (0.4 mg total) by mouth daily. 30 capsule 024 2024 Discontinued(R eorder) amLODIPine (NORVASC) 5 MG tabletIndicati ons:Hypertensi on Take 1 tablet (5 mg total) by mouth daily. Indications: High Blood Pressure 90 tablet 024 2024 Discontinued(R eorder) lactulose (ENULOSE) 10 GM/15ML solutionIndica tions:Constipa tion TAKE 30 ML BY MOUTH THREE TIMES DAILY FOR CONSTIPATION 2700 mL 025 2024 Discontinued amoxicillin (AMOXIL) 500 MG capsuleIndicat ions:Cough Take 1 capsule (500 mg total) by mouth 3 (three) times daily for 15 days. Indications: Cough 45 capsule 025 2024 tamsulosin (FLOMAX) 0.4 MG CapIndications :Benign prostatic hyperplasia (BPH) suspected Take 1 capsule (0.4 mg total) by mouth daily. Indications: Benign prostatic hyperplasia (BPH) suspected 30 capsule 025 2024 Discontinued(R eorder) Active Problems Problem Noted Date Diagnosed Date [...] complication, with long-term current use of insulin ([facility]) 05/25/2020 05/04/2022 Essential hypertension 05/25/202005/04 Pressure injury of contiguou s region involving back and buttock, stage 3 05/25/202011/2021 Decreased mobility 02/10/2020 Fracture of left clavicle 01/26/2020 Fracture of manubrium 01/26/20202021 Fracture of medial malleolus of right tibia 01/26/2020 05/04/2022 L1 vertebral fracture ([facility]) 01/25/2020 05/04/2022 Diabetes mellitus ([facility]) 01/13/2014 2021 Encounters Date Type Department Care Team Description 08/15/2024 Telephone [facility] [address] [place] [address] Donavon Connor MD Medication Request 08/15/2024 Telephone [facility] [address] [place] [address] Donavon Connor MD Referral 08/14/2024 Telephone [facility] [address] [place] [address] Donavon Connor MD Orders 08/12/2024 Scan HEALTH INFO SRVCS Scanned, Doc Med Group Image (SCAN); MRI (SCAN); CT (SCAN) 08/11/2024 Scan MG HEALTH INFO SRVCS Scanned, Doc Med Group CT (SCAN) 08/07/2024 3:30 PM CDT Home Care Visit [address] [place] [address] [place] [address] Catie Zabala, PT PT OASIS DISCHARGE 08/06/2024 Telephone [facility] [address] [place] [address] Donavon Connor MD Refill Request 08/05/2024 Scan MG HEALTH INFO SRVCS Scanned, Doc Med Group CT (SCAN); Image (SCAN) 08/02/2024 12:00 PM EXPORT FREIGHT MANAGER Home Care Visit [address] [place] [address] Juliana Mcgrath RN SN DISCIPLINE DISCHARGE 08/02/2024 Home Care Visit [address] [address] Juliana Mcgrath RN [facility] INTERDISCIPLINARY [place] 07/30/2024 10:45 AM EXPORT FREIGHT MANAGER Home Care Visit [address] [address] Meera Choi LPN SN HOME VISIT 07/29/2024 2:30 PM EXPORT FREIGHT MANAGER Home Care Visit [address] [address] Catie Zabala, PT PT INITIAL EVALUATION 07/29/2024 9:20 AM EXPORT FREIGHT MANAGER Office Visit [facility] Family [facility] [address] [address] Donavon Connor MD Follow Up (ER follow up for chest pain) 07/29/2024 Travel 07/26/2024 9:00 AM EXPORT FREIGHT MANAGER Home Care Visit [address] [address] Meera Choi LPN SN HOME VISIT 07/24/2024 Scan MG HEALTH INFO SRVCS Scanned, Doc Med Group 07/24/2024 Home Care Visit [address] [address] Catie Zabala, PT CASE COMMUNICATION 07/23/2024 12:15 PM EXPORT FREIGHT MANAGER Home Care Visit [address] [phone] Preeti Greco, JEREMY SN OASIS RESUMPTION OF CARE 07/23/2024 Scan MG HEALTH INFO SRVCS Scanned, Doc Med Group Image (SCAN) 07/23/2024 Plan of Care Documentation [address] [phone] 07/22/2024 9:30 AM EXPORT FREIGHT MANAGER Home Care Visit [facility] [address] [place] [address] Makenzie Cheema RN SN NON ADMIT LETTY 07/19/2024 10:15 AM EXPORT FREIGHT MANAGER Home Care Visit [address] [place] [address] Nereida London, RN SN OASIS TRANSFER W/OUT DC 07/18/2024 Scan MG HEALTH INFO SRVCS Scanned, Doc Med Group Image (SCAN); Cut Out Operator Report (SCAN)* 07/17/2024 Scan MG HEALTH INFO SRVCS Scanned, Doc Med Group Image (SCAN) 07/15/2024 9:00 AM EXPORT FREIGHT MANAGER Home Care Visit [address] [address] Maida Bello, GUEST SERVICE TEAM LEADER GUEST SERVICE TEAM LEADER HOME VISIT 07/13/2024 Scan MG HEALTH INFO SRVCS Scanned, Doc Med Group Image (SCAN) 07/11/2024 11:15 AM EXPORT FREIGHT MANAGER Home Care Visit [address] [place] [address] Maida Bello, GUEST SERVICE TEAM LEADER GUEST SERVICE TEAM LEADER HOME VISIT 07/09/2024 12:00 PM EXPORT FREIGHT MANAGER Home Care Visit [address] [place] [address] Juliana Mcgrath RN SN HOME VISIT 07/05/2024 11:30 AM EXPORT FREIGHT MANAGER Home Care Visit [address] [phone] Anna Viera RN SN HOME VISIT 07/04/2024 12:30 PM EXPORT FREIGHT MANAGER Home Care Visit [facility] [address] [place], [place] [phone] Yuridia Sofia, OT OT INITIAL EVALUATION 07/04/2024 Scan MG HEALTH INFO SRVCS Scanned, Doc Med Group 07/04/2024 Telephone [facility] Family [facility] - [place] [phone] Donavon Connor MD Advice 07/03/2024 3:00 PM EXPORT FREIGHT MANAGER Home Care Visit [address] [place] [address] [place] [address] Devin Dean, PT PT INITIAL EVALUATION 07/03/2024 10:20 AM EXPORT FREIGHT MANAGER Office Visit [facility] [address] [address] Donavon Connor MD TCM (Was admitted to [facility] for heart attack and was readmitted due to the Flu,Home health called to reconcile pt med list. States pt BP has been running low, has pitting edema in both legs refusing to use spirometer. States he may need a repeat BMP.///) 07/03/2024 Travel 07/02/2024 11:30 AM EXPORT FREIGHT MANAGER Home Care Visit [address] [place] [address] [place] [address] Anna Viera RN SN OASIS START OF CARE 07/02/[address] [place] [address] [place] [address] Donavon Connor MD 07/02/2024 Plan of Care Documentation [address] [place] [address] [place] [address] 07/01/2024 Scan MG HEALTH INFO SRVCS Scanned, Doc Med Group 07/01/[address] [place] [address] [place] [address] Scanned, Doc Hospital 07/01/[address] [place] [address] [place] [address] Donavon Connor MD Advise 06/27/2024 Scan MG HEALTH INFO SRVCS Scanned, Doc Med Group Image (SCAN) 06/26/2024 Scan MG HEALTH INFO SRVCS Scanned, Doc Med Group Ultrasound (SCAN); CT (SCAN); Cut Out Operator Report (SCAN)* 06/26/2024 Telephone [facility] [address] [place] [address] Donavon Connor MD Advice 06/24/2024 Scan MG HEALTH INFO SRVCS Scanned, Doc Med Group Echo (SCAN) 06/24/2024 Telephone [facility] [address] [place] [address] Donavon Connor MD Refill Request 06/22/2024 Scan MG HEALTH INFO SRVCS Scanned, Doc Med Group 06/22/2024 Scan MG HEALTH INFO SRVCS Scanned, Doc Med Group Image (SCAN) from Last 3 Months Immunizations Name Administration [...] of experiencing loneliness or isolatio n Never 08/07/2024 OASIS A1250: Transportation Answer Date Recorded Lack of Transportation (Medical) No 08/07/2024 Lack of Transportation (Non-Medical) No 08/07/2024 Patient Unable or Declines to Respond No 08/07/2024 OASIS B1300: Health Literacy Answer Macho e Recorded Frequency of needing help to read materials from doctor or pharmacy Often 08/07/2024 [facility] Utilities Answer Date Recorded In the past 12 months has th e [employer], gas, oil, or water [employer] threatened to shut off services in your [...] any clubs o r organizations such as sikhism groups, unions, fraternal or athletic groups, or [...] place to sleep or slept in a care home (including now)? No 06/24/2023 Housing Stability [...] any time in the past 12 m [facility], were you homeless or living in a care home (including now)? No 04/10/2024 Sex and Gender Information Value Date Recorded Sex Assigned at Male 04/09/2024 9:16 PM EXPORT FREIGHT MANAGER Legal Sex Male 8:36 PM CDT Gender Identity Male 04/09/2024 9:16 PM EXPORT FREIGHT MANAGER Sexual Orientation Straight 04/09/2024 9: 16 PM EXPORT FREIGHT MANAGER Last Filed Vital Signs Vital Sign Reading Time Taken Comments Blood Pressure 138/70 08/07/2024 3:45 PM CDT Pulse 76 08/07/2024 3:45 PM CDT Temperature 36.7 C (98 F) 08/07/2024 3:45 PM CDT Respiratory Rate 18 08/07/2024 3:45 PM CDT Oxygen Saturation 96% 08/07/2024 3:45 PM CDT Inhaled Oxygen Concentration - - Weight 67.6 kg (149 lb) 07/29/2024 8:53 AM EXPORT FREIGHT MANAGER Height 162.6 cm (5' 4 ) 07/29/2024 8:53 AM EXPORT FREIGHT MANAGER Body Mass Index 25.58 07/29/2024 8:53 AM EXPORT FREIGHT MANAGER Plan of Treatment Upcoming Encounters Date Type Department Care Team (Late st Contact Info) Description 01/06/2025 11:00 AM CDT Office Visit [facility] Multispecialty Care - [facility] [address] [facility], [address] [place] [address] Lai Anderson MD [address] [place] [address] Health Maintenance Due Date Last Done Comments Kidney Health Evaluation 1950 Pneumococcal Vaccine: 65+ Years (1 of 2 - PCV) 02/02/1954 DTaP, Tdap and Td Vaccines (1 - Tdap) 02/02/1967 Hemoglobin A1C 08/30/2024 03/01/2024, 05/30, 12/30/2022, Additional history exists Lipid Panel 03/01/2025 03/01/2024, 0808/2022, 12/30/2022, Additional history exists Influenza Adult (#1) 2025 Postpon ed from 02/27/2024 (Patient Refused) COVID-19 Vaccine (3 - season) 2025 11/13/2020, 10/22/2020 Postponed from 01/28/2024 [...] Colonoscopy (10 Years) Discontinued 04/13/2024 PHQ-2 (Physician [place]) Completed 07/29/2024 Meningococcal B Vaccine Aged Out [...] Alvarez, RN Medical Devices Implanted Type Area Brazing Machine Setter Device Identifier Shelf Expiration Date Model / Serial / Lot Mesh Bard Marlex 3 X 6 [id number] - [id number] Implanted:Qty : 1 on 12/28/2021 by Abundio [facility]verde [facility] Mesh Right: Abdomen [employer] - [employer] [id number] 04/25/2026 [id number] / / [id number] Procedures Procedure Name Priority Date/Time Associated Diagnosis Comments MRI GENERIC 08/12/2024 CT GENERIC 08/12/2024 IMAGE GENERIC 08/12/2024 CT GENERIC 08/11/2024 CT GENERIC 08/05/2024 IMAGE GENERIC 08/05/2024 IMAGE GENERIC 07/23/2024 DEVOPS 07/18/2024 IMAGE GENERIC 07/18/2024 IMAGE GENERIC 07/17/2024 IMAGE GENERIC 07/13/2024 IMAGE GENERIC 06/27/2024 DEVOPS 06/26/2024 CT GENERIC 06/26/2024 CT GENERIC 06/26/2024 ULTRASOUND GENERIC (SCAN ORDER) 06/26/2024 ECHO GENERIC (SCAN ORDER) 06/24/2024 IMAGE GENERIC Routine 06/22/2024 DIABETIC RETINOPATHY EXAM (NEGATIVE)(SCAN ORDER) Routine 04/15/2024 LIPID PANEL Routine 03/01/2024 9:46 AM CDT Primary hypertension Mixed hyperlipidemia Type 2 diabetes mellitus without complication, with long-term current use of insulin ([facility]) HEMOGLOBIN, GLYCOSYLATED Routine 03/01/2024 9:46 AM CDT Primary hypertension Mixed hyperlipidemia Type 2 diabetes mellitus without complication, with long-term current use of insulin ([facility]) from Last 3 Months or Most Recently Relevant to Health Maintenance Results * CT GENERIC (08/12/2024) Only the most recent of5 resultswithin the time period is included. Anatomical Region Laterality Modality Other 08/12/2024 us Doc [facility] Scanned SCANNING Final Resu lt * MRI GENERIC (08/12/2024) Anatomical Region Laterality Modality Other 08/12/2024 us Doc [facility] Scanned SCANNING Final Resu lt * IMAGE GENERIC (08/12/2024) Only the most recent of8 resultswithin the time period is included. Anatomical Region Laterality Modality Other 08/12/2024 us Doc [facility] Scanned SCANNING Final Resu lt * DEVOPS (07/18/2024) Anatomical Region Laterality Modality Other 07/18/2024 us Doc Med [facility] Scanned SCANNING Final Resu lt * DEVOPS (06/26/2024) Anatomical Region Laterality Modality Other 06/26/2024 [...] lt * DIABETIC RETINOPATHY EXAM (NEGATIVE) (04/15/2024) [employer] [facility] Scanned SCANNING Final Resu lt Performing Organization Address City/[facility]/ZIP Co de Phone Number [facility] ONBASE * (ABNORMAL) HEMOGLOBIN, GLYCOSYLATED (03/01/2024 9:46 AM CDT) HGB A1C 8.3(H) <5.7 % 03/01/2024 12:43 PM CDT [facility] Comment: ADA GUIDELINES 2010 5.7 TO 6.4% INCREASED RISK OF DIABETES > OR = 6.5% CONSISTENT WITH DIABETES ESTIMATED AVG GLUCOSE 192 mg/dL 03/01/2024 12:43 PM CDT [facility] 03/01/2024 9:46 AM CDT Donavon Connor MD LABORATORY Final Result Performing Organization Address City/[facility]/ZIP Co de Phone Number [facility] [address] [place] [address], [place] [phone] * (ABNORMAL) LIPID PANEL (03/01/2024 9:46 AM CDT) CHOLESTEROL 216(H) <200 MG/DL 03/01/2024 3:31 PM CDT [facility] TRIGLYCERIDES 345(H) <150 MG/DL 03/01/2024 3:31 PM CDT [facility] HDL 31(L) >40.0 MG/DL 03/04/2024 3:44 PM CDT [facility] LDL (CALCULATED) 116(H) <100 MG/DL 03/04/2024 3:44 PM CDT [facility] NON HDL CHOLESTEROL 185(H) <130 MG/DL 03/04/2024 3:44 PM CDT [facility] CHOL/HDL RATIO 7.0(H) 0.0 - 4.5 03/04/2024 3:44 PM CDT [facility] VLDL CALCULATION 69(H) 5 - 55 MG/DL 03/01/2024 3:31 PM CDT [facility] LIPID INTERPRETATION 03/01/2024 3:31 PM CDT [facility] Comment: NIH CONCENSUS REPORT RECOMMENDATIONS: ADULT CHILD LOW RISK: CHOLESTEROL <200 <170 TRIGLYCERIDE <150 --- HDL >=60 --- LDL <100 <110 BORDERLINE: CHOLESTEROL 200-239 170-199 TRIGLYCERIDE 150-199 --- HDL 40-59 --- LDL 100-159 110-129 HIGH RISK: CHOLESTEROL >=240 >=200 TRIGLYCERIDE >=200 --- HDL <40 --- LDL >=160 >=130 03/01/2024 9:46 AM CDT Donavon Connor MD LABORATORY Final Result [facility] [address] [place] [address], from Last 3 Months or Most Recently Relevant to Health Maintenance Additional Health Concerns 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
--- OUTSIDE RECORDS SUMMARY | 2024-08-16 06:25 | XMS_ITS | Encounter Summary ---
Author Organization [facility] Address [facility] [place] [address] Care Team Providers Care Public Defender Name Role Phone Donavon Connor MD Primary Care Provider [phone] Reason for Referral * Consultation (Routine) - New Request Specialty Diagnoses / Procedures Referred By Janel goyal Referred To Contact OTOLARYNGOLOGY Diagnoses Dysphagia Procedures OFFICE/OUTPATIENT NEW LOW MDM 30-44 MINUTES OFFICE/OUTPT VISIT,NEW,LEVL IV OFFICE/OUTPT VISIT,NEW,LEVL V OFFICE/OUTPT VISIT,EST,LEVL III OFFICE/OUTPT VISIT,EST,LEVL IV OFFICE/OUTPT VISIT,EST,LEVL V Donavon Connor MD [phone] [address] Phone: tel: fax: Referral ID Status Reason Start Date Expiration Date V isits Requested Visits Authorized [id number] New Request 08/15/2024 08/15/2025 1 1 Scheduling Instructions Specialty: throat Specialist name: Dr. Inocente Romano Address/ Phone/ Fax: [phone] [address] Appointment date: n/a Diagnosis/ Problem: Difficulty swallowing from recent stroke Reason for Visit * Reason Onset Date Comments Referral 08/15/2024 Encounter Details Date Type Department Care Team (Late st Contact Info) Description 08/15/2024 Telephone [facility] Family and Sports Medicine - [place] [address] [place] [address] Donavon Connor MD [address] [facility] [address] [place] [address] Referral Social History Tobacco Use Types Packs/Day Years [...] materials from doctor or pharmacy Often 08/07/2024 [facility] Utilities Answer Date Recorded In the past 12 months has [facility] [employer], oil, or water [employer] threatened to shut off services in your [...] than three times a week 12/30/2022 Attends L[employer] Day Services Not on file 12/30 Do you belong to any clubs o r organizations such as anabaptist groups, unions, fraternal or athletic groups, or [...] any time in the past 12 m [facility], were you homeless or living in a half-way (including now)? No 04/10/2024 Sex and Gender Information Value Date Recorded Sex Assigned at Male 04/09/2024 9:16 PM INDUSTRIAL MACHINE SYSTEM TECHNICIAN Legal Sex Male 8:36 PM CDT Gender Identity Male 04/09/2024 9:16 PM INDUSTRIAL MACHINE SYSTEM TECHNICIAN Sexual Orientation Straight 04/09/2024 9: 16 PM INDUSTRIAL MACHINE SYSTEM TECHNICIAN documented as of this encounter Functional Status [...] Date Author Status Yes 04/09/2024 9:27 PM INDUSTRIAL MACHINE SYSTEM TECHNICIAN Swan, Shayla A, RN Active documented in this encounter Progress Notes * Haley Perez CMA - 08/15/2024 8:54 AM CDTAddended by: HALEY PEREZ on: 08/15/2024 08:54 AM Modules accepted: Orders * Haley Perez CMA - 08/15/2024 8:54 AM CDT Referral placed * Beth Degroot - 08/15/2024 8:40 AM CDT Referral Request Albaro Peres 1950 is requesting a referral to the following provider. Specialty: throat Specialist name: Dr. Inocente Romano Address/ Phone/ Fax: [phone] [phone] Appointment date: n/a Diagnosis/ Problem: Difficulty swallowing from recent stroke documented in this encounter Plan of Treatment Upcoming Encounters Date Type Department Care Team (Late st Contact Info) Description 01/06/2025 11:00 AM CDT Office Visit [facility] Multispecialty Care - [address], [address] [place] [address] Lai Anderson MD [address] [place] [id number] Scheduled Referrals Name Type Priority Associated Diagnoses Orde r Schedule Ambulatory referral to ENT Referral Routine Dysphagia Ordered: 08/15/2024 documented as of this encounter Goals Goal Patient Goal Type Associated Problems Recent Progress Patient-Stated? Author Family - family caregiver with be involved in care transitions and discharge planning Lifestyle No Beth Alvarez RN documented as of this encounter Visit Diagnoses Diagnosis Dysphagia- Primary Dysphagia, unspecified documented in this encounter Additional Health Concerns Infection Onset Date Last Indicated Resolved Time VRE Comment:Linus 09/21/2020 09/21/2020 ESBL - Extended Spectrum Bet a-lactamase Comment:11/24/2020 +ESBL Rectal culture 11/26/2020 11/26/2020 Assessment Noted Time PHQ-9 Depression Total Score: 0 07/30/19 25 8:54 AM INDUSTRIAL MACHINE SYSTEM TECHNICIAN documented as of this encounter Care Teams Public Defender Relationship Specialty Start Date End Date Donavon Connor MD [address] [phone] PCP - General FAMILY PRACTICE 04/13/20 documented as of this encounter
--- OUTSIDE RECORDS SUMMARY | 2024-08-16 06:25 | XMS_ITS | Encounter Summary ---
Author Organization [facility] Address [facility] [place] [address] Care Team Providers Care Solar Installer Pv Name Role Phone Donavon Connor MD Primary Care Provider [phone] Reason for Visit * Reason Comments CT (SCAN) Encounter Details Date Type Department Care Team (Latest Contact Info) Description 08/11/2024 Scan [facility] HEALTH INFO SRVCS Scanned, Doc Med Group CT (SCAN) Social History Tobacco Use Types Packs/Day [...] materials from doctor or pharmacy Often 08/07/2024 [facility] Utilities Answer Date Recorded In the [...] than three times a week 12/30/2022 Attends Faith Services Not on file 12/30 Do you belong to any clubs o r organizations such as lutheran groups, unions, fraternal or athletic groups, or [...] any time in the past 12 m [facility], were you homeless or living in a fdc (including now)? No 04/10/2024 Sex and Gender Information Value Date Recorded Sex Assigned at Male 04/09/2024 9:16 PM OXYACETYLENE WELDER Legal Sex Male 8:36 PM CDT Gender Identity Male 04/09/2024 9:16 PM OXYACETYLENE WELDER Sexual Orientation Straight 04/09/2024 9: 16 PM OXYACETYLENE WELDER documented as of this encounter Functional Status * Are you deaf or do you have serious difficulty hearing Answer Date of Assessment Author Status No 04/09/2024 9:27 PM OXYACETYLENE WELDER Shayla Swan RN Active * Are you blind or do you have serious difficulty seeing, even when wearing glasses? Answer Date of Assessment Author Status No 04/09/2024 9:27 PM OXYACETYLENE WELDER Shayla Swan RN Active * Do you have serious difficulty walking or climbing stairs? Answer Date of Assessment Author Status No 04/09/2024 9:27 PM OXYACETYLENE WELDER Shayla Swan RN Active * Do you [...] Description 01/06/2025 11:00 AM CDT Office Visit [facility] Medical Group Multispecialty Care - [facility] [address] [facility], [address] [place] [id number] Lai Anderson MD [address] [place] [address] documented as of this encounter Goals Goal Patient Goal Type Associated Problems Recent Progress Patient-Stated? 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
--- OUTSIDE RECORDS SUMMARY | 2024-08-16 06:25 | XMS_ITS | Encounter Summary ---
Author Organization [facility] Address [facility] [place] [address] Care Team Providers Care Commercial Loan Coordinator Name Role Phone Donavon Connor MD Primary Care Provider [phone] Reason for Visit * Reason Comments Image (SCAN) MRI (SCAN) CT (SCAN) Encounter Details Date Type Department Care Team ([facility] Contact Info) Description 08/12/2024 Scan HEALTH INFO SRVCS Scanned, Doc Med Group Image (SCAN); MRI (SCAN); CT (SCAN) Social History Tobacco Use Types [...] materials from doctor or pharmacy Often 08/07/2024 [facility] Utilities Answer Date Recorded In the past 12 months has th e [employer], gas, oil, or water [employer] threatened to shut off services in your [...] than three times a week 12/30/2022 Attends Congregation Services Not on file 12/30 Do you belong to any clubs o r organizations such as mandaeism groups, unions, fraternal or athletic groups, or [...] place to sleep or slept in a custodial (including now)? No 06/24/2023 Housing Stability Vital Sign Answer Macho e Recorded In the last 12 months, was t here a time when you were not able to pay the mortgage or rent on time? No 04/10/2024 In the past 12 months, how m any times have you moved where you were living? 0 04/10/2024 At any time in the past 12 m [facility], were you homeless or living in a custodial (including now)? No 04/10/2024 Sex and Gender Information Value Date Recorded Sex Assigned at Male 04/09/2024 9:16 PM IT SUPPORT ENGINEER Legal Sex Male 8:36 PM CDT Gender Identity Male 04/09/2024 9:16 PM IT SUPPORT ENGINEER Sexual Orientation Straight 04/09/2024 9: 16 PM IT SUPPORT ENGINEER documented as of this encounter Functional Status * Are you deaf or do you have serious difficulty hearing Answer Date of Assessment Author Status No 04/09/2024 9:27 PM IT SUPPORT ENGINEER Shayla Swan RN Active * Are you blind or do you have serious difficulty seeing, even when wearing glasses? Answer Date of Assessment Author Status No 04/09/2024 9:27 PM IT SUPPORT ENGINEER Shayla Swan RN Active * Do you [...] Description 01/06/2025 11:00 AM CDT Office Visit [facility] Medical Group Multispecialty Care - [facility] [address] [facility], [address] [place] [address] Lai Anderson MD 3 [place] [address] documented as of this encounter Goals Goal Patient Goal Type Associated Problems Recent Progress Patient-Stated? Author Family - family caregiver with be involved in care transitions and discharge planning Lifestyle No Beth Alvarez RN documented as of this encounter Procedures Procedure Name Priority Date/Time Associated Diagnosis Comments CT GENERIC 08/12/2024 MRI GENERIC 08/12/2024 IMAGE GENERIC 08/12/2024 documented in this encounter Results * IMAGE GENERIC (08/12/2024) Anatomical Region Laterality Modality Other 08/12/2024 us Doc Med Group Scanned SCANNING Final Resu lt * MRI GENERIC (08/12/2024) Anatomical Region Laterality Modality Other 08/12/2024 us Doc Med Group Scanned SCANNING Final Resu lt * CT GENERIC (08/12/2024) Anatomical Region Laterality Modality Other 08/12/2024 us [facility] [facility] Scanned SCANNING Final Resu lt documented in this encounter Visit Diagnoses Not on filedocumented in this encounter Additional Health Concerns Infection Onset Date Last Indicated Resolved Time 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
--- OUTSIDE RECORDS SUMMARY | 2024-08-16 06:25 | XMS_ITS | Clinical Summary ---
Author Organization [facility] Address [address] [place] [address] Care Team Providers Care Splunk Architect Name Role Phone No, Physician Primary Care Provider [phone] Bunny Ramires MD Unavailable [phone] Allergies Active Allergy Reactions Criticality Noted [...] Cardiomyopathy, ischemic 07/22/2024 Coronary artery disease involving [place]od[place] heart 0 07/15/2024 Constipation, unspecified constipation type 08/2022 Assessment & Plan (07/31/2022 11:22 AM OCCUPATIONAL SAFETY AND HEALTH MANAGER): No symptoms or signs of mechanical [...] 07/30/2022 Assessment & Plan (07/31/2022 11:21 AM OCCUPATIONAL SAFETY AND HEALTH MANAGER): On metformin 500 mg twice daily [...] 07/30/2022 Assessment & Plan (07/31/2022 10:46 AM OCCUPATIONAL SAFETY AND HEALTH MANAGER): Not on any treatment at home. BP well controlled, CTM and add medications if needed Benign prostatic hyperplasia without lower urinary tract symptoms 07/30/2022 Assessment & Plan (07/31/2022 10:44 AM OCCUPATIONAL SAFETY AND HEALTH MANAGER): Patient was recently started on Flomax and finasteride at OSH. Patients son reported patient was experiencing difficulty urinating - continue home meds and pcp follow up for further management Stage 3a chronic kidney disease 07/30/2022 Assessment & Plan (07/31/2022 10:48 AM OCCUPATIONAL SAFETY AND HEALTH MANAGER): Creatinine is 1.48, up from the most recent of 1.2- 1.3 in 2021 and 2016 - improved to 1.37 on am labs - CTM and follow up outpatient Encounters Date Type Department Care Team Description 07/29/2024 Orders Only [facility] Cardiology [address] [place] [address] Gerhard Ratliff MD 07/15/2024 Telephone [facility] Medical [facility] Cardiology [address] [place] [address] Gina Link MD 07/08/2024 2:00 PM OCCUPATIONAL SAFETY AND HEALTH MANAGER Office Visit [facility] Medical [facility] Cardiology [address] [place] [address] Gina Link MD Hypertension associated with diabetes (HCC) (Primary Dx); Coronary artery disease involving [place] coronary artery of [place] heart without angina pectoris; Cardiomyopathy, ischemic 07/02/2024 Orders Only [facility] Cardiology [address] [place] [address] Gerhard Ratliff MD 06/29/2024 Orders Only [facility] Health Information Management [address] [place] [address] Allegra Shin MD 06/26/2024 Orders Only [facility] Medical Group Cardiology [address] [place] [address] Pyeton De Guzman MD from Last 3 Months Surgical History Surgery Date Site/Laterality Comments CT PERQ NL/PL LITHOTRP COMPLEX >2 CM STEAMBOAT PILOT LOCATIONS Percutaneous Lithotomy For Stone Over 2cm. [...] on file Legal Sex Male 5:44 AM OCCUPATIONAL SAFETY AND HEALTH MANAGER Gender Identity Not on file Sexual Orientation Not on file Obstetrics History Last Filed Vital Signs Vital Sign Reading Time Taken Comments Blood Pressure 116/60 07/08/2024 1:05 PM OCCUPATIONAL SAFETY AND HEALTH MANAGER Pulse 88 07/08/2024 1:05 PM OCCUPATIONAL SAFETY AND HEALTH MANAGER Temperature 36.5 C (97.7 F) 07/31/2022 8:00 AM OCCUPATIONAL SAFETY AND HEALTH MANAGER Respiratory Rate 16 07/31/2022 7:55 AM OCCUPATIONAL SAFETY AND HEALTH MANAGER Oxygen Saturation 99% 07/08/2024 1:05 PM OCCUPATIONAL SAFETY AND HEALTH MANAGER Inhaled Oxygen Concentration - - Weight 67.9 kg (149 lb 9.6 oz) 07/08/2024 1:05 P M OCCUPATIONAL SAFETY AND HEALTH MANAGER Height 162.6 cm (5' 4 ) 07/08/2024 1:05 PM OCCUPATIONAL SAFETY AND HEALTH MANAGER Body Mass Index 25.68 07/08/2024 1:05 PM OCCUPATIONAL SAFETY AND HEALTH MANAGER Plan of Treatment Health Maintenance Due Date [...] CARDIOLOGY DOCUMENT SCAN Routine 07/19/2024 3:34 PM OCCUPATIONAL SAFETY AND HEALTH MANAGER CARDIOLOGY DOCUMENT SCAN Routine 07/18/2024 2:33 PM OCCUPATIONAL SAFETY AND HEALTH MANAGER CARDIOLOGY DOCUMENT SCAN Routine 07/18/2024 2:12 PM OCCUPATIONAL SAFETY AND HEALTH MANAGER CARDIOLOGY DOCUMENT SCAN Routine 07/01/2024 3:53 PM OCCUPATIONAL SAFETY AND HEALTH MANAGER CARDIOLOGY DOCUMENT SCAN Routine 06/30/2024 3:49 PM OCCUPATIONAL SAFETY AND HEALTH MANAGER CARDIOLOGY DOCUMENT SCAN Routine 06/29/2024 3:44 PM OCCUPATIONAL SAFETY AND HEALTH MANAGER SCAN - RADIOLOGY/IMAGING 06/29/2024 CARDIOLOGY DOCUMENT SCAN Routine 06/28/2024 3:37 PM OCCUPATIONAL SAFETY AND HEALTH MANAGER CARDIOLOGY DOCUMENT SCAN Routine 06/27/2024 3:32 PM OCCUPATIONAL SAFETY AND HEALTH MANAGER CARDIOLOGY DOCUMENT SCAN Routine 06/26/2024 3:20 PM OCCUPATIONAL SAFETY AND HEALTH MANAGER CARDIOLOGY DOCUMENT SCAN Routine 06/24/2024 3:16 PM OCCUPATIONAL SAFETY AND HEALTH MANAGER CARDIOLOGY DOCUMENT SCAN Routine 06/23/2024 3:10 PM OCCUPATIONAL SAFETY AND HEALTH MANAGER CARDIOLOGY DOCUMENT SCAN Routine 06/22/2024 3:04 PM OCCUPATIONAL SAFETY AND HEALTH MANAGER CARDIOLOGY DOCUMENT SCAN Routine 06/22/2024 3:03 PM OCCUPATIONAL SAFETY AND HEALTH MANAGER CARDIOLOGY DOCUMENT SCAN Routine 06/22/2024 3:00 PM OCCUPATIONAL SAFETY AND HEALTH MANAGER EGFR Routine 07/31/2022 5:30 AM OCCUPATIONAL SAFETY AND HEALTH MANAGER HEMOGLOBIN A1C Routine 07/30/2022 10:23 PM OCCUPATIONAL SAFETY AND HEALTH MANAGER LIPID PANEL Routine 07/30/2022 10:23 PM OCCUPATIONAL SAFETY AND HEALTH MANAGER from Last 3 Months or Most Recently Relevant to Health Maintenance Results * Cardiology Document Scan (07/19/2024 3:34 PM OCCUPATIONAL SAFETY AND HEALTH MANAGER) Anatomical Region Laterality Modality Other Result David Shin MD CV CARDIAC SERVICES PRO CEDURES Final Result * Cardiology Document Scan (07/18/2024 2:33 PM OCCUPATIONAL SAFETY AND HEALTH MANAGER) Anatomical Region Laterality Modality Other Result David Ratliff MD CV CARDIAC SERVICES PROCEDURES F inal Result * Cardiology Document Scan (07/18/2024 2:12 PM OCCUPATIONAL SAFETY AND HEALTH MANAGER) Anatomical Region Laterality Modality Other Result David Ratliff MD CV CARDIAC SERVICES PROCEDURES F inal Result * Cardiology Document Scan (07/01/2024 3:53 PM OCCUPATIONAL SAFETY AND HEALTH MANAGER) Anatomical Region Laterality Modality Other Result David Ratliff MD CV CARDIAC SERVICES PROCEDURES F inal Result * Cardiology Document Scan (06/30/2024 3:49 PM OCCUPATIONAL SAFETY AND HEALTH MANAGER) Anatomical Region Laterality Modality Other Result David Allegra Shin MD CV CARDIAC SERVICES PRO CEDURES Final Result * Cardiology Document Scan (06/29/2024 3:44 PM OCCUPATIONAL SAFETY AND HEALTH MANAGER) Anatomical Region Laterality Modality Other Result David Allegra Shin MD CV CARDIAC SERVICES PRO CEDURES Final Result * SCAN - RADIOLOGY/IMAGING (06/29/2024) Anatomical Region Laterality Modality Other Result David Shin MD Final R esult * Cardiology Document Scan (06/28/2024 3:37 PM OCCUPATIONAL SAFETY AND HEALTH MANAGER) Anatomical Region Laterality Modality Other Result David Allegra Shin MD CV CARDIAC SERVICES PRO CEDURES Final Result * Cardiology Document Scan (06/27/2024 3:32 PM OCCUPATIONAL SAFETY AND HEALTH MANAGER) Anatomical Region Laterality Modality Other Gerhard Ratliff MD CV CARDIAC SERVICES PROCEDURES F inal Result * Cardiology Document Scan (06/26/2024 3:20 PM OCCUPATIONAL SAFETY AND HEALTH MANAGER) Anatomical Region Laterality Modality Other Allegra Shin MD CV CARDIAC SERVICES PRO CEDURES Final Result * Cardiology Document Scan (06/24/2024 3:16 PM OCCUPATIONAL SAFETY AND HEALTH MANAGER) Anatomical Region Laterality Modality Other Allegra Shin MD CV CARDIAC SERVICES PRO CEDURES Final Result * Cardiology Document Scan (06/23/2024 3:10 PM OCCUPATIONAL SAFETY AND HEALTH MANAGER) Anatomical Region Laterality Modality Other Result [facility] us Peyton De Guzman MD CV CARDIAC SERVICES PROCEDU RES Final Result * Cardiology Document Scan (06/22/2024 3:04 PM OCCUPATIONAL SAFETY AND HEALTH MANAGER) Anatomical Region Laterality Modality Other us Peyton De Guzman MD CV CARDIAC SERVICES PROCEDU RES Final Result * Cardiology Document Scan (06/22/2024 3:03 PM OCCUPATIONAL SAFETY AND HEALTH MANAGER) Anatomical Region Laterality Modality Other Result [facility] us Peyton De Guzman MD CV CARDIAC SERVICES PROCEDU RES Final Result * Cardiology Document Scan (06/22/2024 3:00 PM OCCUPATIONAL SAFETY AND HEALTH MANAGER) Anatomical Region Laterality Modality Other us Peyton De Guzman MD CV CARDIAC SERVICES PROCEDU RES Final Result * (ABNORMAL) eGFR (07/31/2022 5:30 AM OCCUPATIONAL SAFETY AND HEALTH MANAGER) [facility] eGFR 54(L) 90 - 130 mL/min/1. [...] last reviewed 2021. Blood 07/31/2022 5:30 AM OCCUPATIONAL SAFETY AND HEALTH MANAGER 07/31/2022 5:51 AM OCCUPATIONAL SAFETY AND HEALTH MANAGER Lizabeth Strong MD LAB BLOOD ORDERABLES Fin al Result Performing Organization Address [facility] de Phone Number [facility] [place] [employer] [address] * (ABNORMAL) Hemoglobin A1c (07/30/2022 10:23 PM OCCUPATIONAL SAFETY AND HEALTH MANAGER) Hgb A1C 10.7(H) 4.0 - 5.6 % [facility] Estimated Average Glucose 260 mg/dL [facility] Comment: The ADA recommends reporting an estimated Average Glucose (eAG) with all Hemoglobin A1c results using the equation derived from a study of 507 normal and diabetic adults. Minority populations were underrepresented and children were not included. (Diabetes Care 2020; 43(S1): S66-S76). The eAG is not equivalent to a fasting glucose. Blood 07/30/2022 10:2 3 PM OCCUPATIONAL SAFETY AND HEALTH MANAGER 07/30/2022 10:39 PM OCCUPATIONAL SAFETY AND HEALTH MANAGER Lizabeth Strong MD LAB BLOOD ORDERABLES Fin al Result Performing Organization Address City/[facility]/ZIP Co de Phone Number [facility] [employer] [address] * (ABNORMAL) Lipid panel (07/30/2022 10:23 PM OCCUPATIONAL SAFETY AND HEALTH MANAGER) Cholesterol 167 30 - 199 mg/dL [facility] Comment: Interpretive Data Ages [...] revised on 2018. Triglycerides 155(H) <=149 mg/dL [facility] Comment: Interpretive Data Ages [...] revised on 2018. Non-HDL Cholesterol 124 mg/dL [facility] Comment: Interpretive Data Ages [...] MEDICAL CENTER Blood 07/30/2022 10:2 3 PM OCCUPATIONAL SAFETY AND HEALTH MANAGER 07/30/2022 10:39 PM OCCUPATIONAL SAFETY AND HEALTH MANAGER Lizabeth Strong MD LAB BLOOD ORDERABLES Fin al Result [facility] Department [place] [address] from Last 3 Months or Most Recently Relevant to Health Maintenance Insurance [facility] Advance Directives For more information, please contact: [phone] * Full Code (Latest Code Status on File) Date Activated Date Inactivated Comments 07/30/2022 9:33 PM 07/31/2022 6:01 PM Care Teams Splunk Architect Relationship Specialty Start Date End Date No, Physician PCP - General 07/30/22 Bunny Ramires MD 07/30/22
--- OUTSIDE RECORDS SUMMARY | 2024-08-16 06:25 | XMS_ITS | Encounter Summary ---
Author Organization [facility] Address [facility] [place] [address] Care Team Providers Care Assistant Corporate Secretary Name Role Phone Donavon Gann MD Primary Care Provider [phone] Reason for Visit * Reason Onset Date Comments Medication Request 08/15/2024 Encounter Details Date Type Department Care Team (Late st Contact Info) Description 08/15/2024 Telephone [facility] Medical [facility] Family and Sports Medicine - [place] [address] [place] [address] Donavon Gann MD [address] [address] Medication Request Social History Tobacco Use Types Packs/Day Years [...] materials from doctor or pharmacy Often 08/07/2024 [facility] Utilities Answer Date Recorded In [...] any time in the past 12 [facility], were you homeless or living in a retirement (including now)? No 04/10/2024 Sex and Gender Information Value Date Recorded Sex Assigned at Male 04/09/2024 9:16 PM INFANTRYMAN Legal Sex Male 8:36 PM CDT Gender Identity Male 04/09/2024 9:16 PM INFANTRYMAN Sexual Orientation Straight 04/09/2024 9: 16 PM INFANTRYMAN documented as of this encounter Functional Status * Are you deaf or do you have serious difficulty hearing Answer Date of Assessment Author Status No 04/09/2024 9:27 PM INFANTRYMAN Shayla Swan RN Active * Are you [...] Bradshaw RN Active documented in this encounter Progress Notes * Donavon Gann MD - 08/15/2024 3:04 PM CDTAddended by: DONAVON GANN on: 08/15/2024 03:04 PM Modules accepted: Orders * Haley Perez CMA - 08/15/2024 2:30 PM CDTAddended by: HALEY PEREZ on: 08/15/2024 02:30 PM Modules accepted: Orders * Haley Perez CMA - 08/15/2024 2:28 PM CDT Spoke to daughter Delta. Dr Gann will send xanax to be used as needed. * TRENT Burris - 08/15/2024 10:36 AM CDT Patient was released from [facility] yesterday and daughter states he is having anxiety. They would like to know if something could be called in to [facility] in [place]. C/B #[phone] documented in this encounter Plan of Treatment Upcoming Encounters Date Type Department Care Team (Late st Contact Info) Description 01/06/2025 11:00 AM CDT Office Visit [facility] Medical Group Multispecialty Care - [facility] [address] [facility], [address] [place] [address] Lai Anderson MD [address] [place] [address] documented as of this encounter Goals Goal Patient Goal Type Associated Problems Recent Progress Patient-Stated? 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
--- OUTSIDE RECORDS SUMMARY | 2024-08-16 06:25 | XMS_ITS | Clinical Summary ---
Author Organization [facility] Address [address] [place] [address] Care Team Providers Care Power Washer Name Role Phone Unavailable Primary Care Provider [...]
--- OUTSIDE RECORDS SUMMARY | 2024-08-16 06:25 | XMS_ITS | Referral Summary ---
Author Organization [facility] Address [address] [place] [address] Care Team Providers Care Botany Professor Name Role Phone No, Physician Primary Care Provider [phone] Bunny Ramires MD Unavailable [phone] Encounters Date Type Department Care Team Description 07/29/2024 Orders Only [facility] Cardiology [address] [place] [address] [address] [place] [address] [phone] Gerhard Ratliff MD 07/15/2024 Telephone [facility] Cardiology [address] [place] [address] [place] [phone] Gina Link MD 07/08/2024 2:00 PM CLINICAL STUDIES SPECIALIST Office Visit [facility] Cardiology [address] [place] [address] [address] [place] [phone] Gina Link MD Hypertension associated with diabetes (HCC) (Primary Dx); Coronary artery disease involving [place] coronary artery of [place] heart without angina pectoris; Cardiomyopathy, ischemic 07/02/2024 Orders Only [facility] Cardiology [address] [facility] [address] [place] [phone] Gerhard Ratliff MD 06/29/2024 Orders Only [facility] [place] [facility] Information Management [address] [place] [id number] Allegra Shin MD 06/26/2024 Orders Only [facility] Cardiology [address] [place] [phone] Peyton De Guzman MD from [...] Cardiomyopathy, ischemic 07/22/2024 Coronary artery disease involving [place] heart 0 07/15/2024 Constipation, unspecified constipation type 08/2022 Assessment & Plan (07/31/2022 11:22 AM CLINICAL STUDIES SPECIALIST): No symptoms or signs of mechanical obstruction. [...] 07/30/2022 Assessment & Plan (07/31/2022 11:21 AM CLINICAL STUDIES SPECIALIST): On metformin 500 mg twice daily at [...] 07/30/2022 Assessment & Plan (07/31/2022 10:46 AM CLINICAL STUDIES SPECIALIST): Not on any treatment at home. BP well controlled, CTM and add medications if needed Benign prostatic hyperplasia without lower urinary tract symptoms 07/30/2022 Assessment & Plan (07/31/2022 10:44 AM CLINICAL STUDIES SPECIALIST): Patient was recently started on Flomax and finasteride at OSH. Patients son reported patient was experiencing difficulty urinating - continue home meds and pcp follow up for further management Stage 3a chronic kidney disease 07/30/2022 Assessment & Plan (07/31/2022 10:48 AM CLINICAL STUDIES SPECIALIST): Creatinine is 1.48, up from the most [...] on file Legal Sex Male 5:44 AM CLINICAL STUDIES SPECIALIST Gender Identity Not on file Sexual Orientation Not on file Last Filed Vital Signs Vital Sign Reading Time Taken Comments Blood Pressure 116/60 07/08/2024 1:05 PM CLINICAL STUDIES SPECIALIST Pulse 88 07/08/2024 1:05 PM CLINICAL STUDIES SPECIALIST Temperature 36.5 C (97.7 F) 07/31/2022 8:00 AM CLINICAL STUDIES SPECIALIST Respiratory Rate 16 07/31/2022 7:55 AM CLINICAL STUDIES SPECIALIST Oxygen Saturation 99% 07/08/2024 1:05 PM CLINICAL STUDIES SPECIALIST Inhaled Oxygen Concentration - - Weight 67.9 kg (149 lb 9.6 oz) 07/08/2024 1:05 P M CLINICAL STUDIES SPECIALIST Height 162.6 cm (5' 4 ) 07/08/2024 1:05 PM CLINICAL STUDIES SPECIALIST Body Mass Index 25.68 07/08/2024 1:05 PM CLINICAL STUDIES SPECIALIST Plan of Treatment Not on file Procedures Procedure Name Priority Date/Time Associated Diagnosis Comments CARDIOLOGY DOCUMENT SCAN Routine 07/19/2024 3:34 PM CLINICAL STUDIES SPECIALIST CARDIOLOGY DOCUMENT SCAN Routine 07/18/2024 2:33 PM CLINICAL STUDIES SPECIALIST CARDIOLOGY DOCUMENT SCAN Routine 07/18/2024 2:12 PM CLINICAL STUDIES SPECIALIST CARDIOLOGY DOCUMENT SCAN Routine 07/01/2024 3:53 PM CLINICAL STUDIES SPECIALIST CARDIOLOGY DOCUMENT SCAN Routine 06/30/2024 3:49 PM CLINICAL STUDIES SPECIALIST CARDIOLOGY DOCUMENT SCAN Routine 06/29/2024 3:44 PM CLINICAL STUDIES SPECIALIST SCAN - RADIOLOGY/IMAGING 06/29/2024 CARDIOLOGY DOCUMENT SCAN Routine 06/28/2024 3:37 PM CLINICAL STUDIES SPECIALIST CARDIOLOGY DOCUMENT SCAN Routine 06/27/2024 3:32 PM CLINICAL STUDIES SPECIALIST CARDIOLOGY DOCUMENT SCAN Routine 06/26/2024 3:20 PM CLINICAL STUDIES SPECIALIST CARDIOLOGY DOCUMENT SCAN Routine 06/24/2024 3:16 PM CLINICAL STUDIES SPECIALIST CARDIOLOGY DOCUMENT SCAN Routine 06/23/2024 3:10 PM CLINICAL STUDIES SPECIALIST CARDIOLOGY DOCUMENT SCAN Routine 06/22/2024 3:04 PM CLINICAL STUDIES SPECIALIST CARDIOLOGY DOCUMENT SCAN Routine 06/22/2024 3:03 PM CLINICAL STUDIES SPECIALIST CARDIOLOGY DOCUMENT SCAN Routine 06/22/2024 3:00 PM CLINICAL STUDIES SPECIALIST EGFR Routine 07/31/2022 5:30 AM CLINICAL STUDIES SPECIALIST HEMOGLOBIN A1C Routine 07/30/2022 10:23 PM CLINICAL STUDIES SPECIALIST LIPID PANEL Routine 07/30/2022 10:23 PM CLINICAL STUDIES SPECIALIST from Last 3 Months or Most Recently Relevant to Health Maintenance Results * Cardiology Document Scan (07/19/2024 3:34 PM CLINICAL STUDIES SPECIALIST) Anatomical Region Laterality Modality Other Result David Shin MD [facility] PRO CEDURES Final Result * Cardiology Document Scan (07/18/2024 2:33 PM CLINICAL STUDIES SPECIALIST) Anatomical Region Laterality Modality Other Result David Ratliff MD [facility] PROCEDURES F inal Result * Cardiology Document Scan (07/18/2024 2:12 PM CLINICAL STUDIES SPECIALIST) Anatomical Region Laterality Modality Other Result David Ratliff MD [facility] C[facility] SERVICES PROCEDURES F inal Result * Cardiology Document Scan (07/01/2024 3:53 PM CLINICAL STUDIES SPECIALIST) Anatomical Region Laterality Modality Other Result David Ratliff MD [facility] C[facility] SERVICES PROCEDURES F inal Result * Cardiology Document Scan (06/30/2024 3:49 PM CLINICAL STUDIES SPECIALIST) Anatomical Region Laterality Modality Other Result David Shin MD [facility] PRO CEDURES Final Result * Cardiology Document Scan (06/29/2024 3:44 PM CLINICAL STUDIES SPECIALIST) Anatomical Region Laterality Modality Other Result David Shin MD [facility] C[facility] PRO CEDURES Final Result * SCAN - RADIOLOGY/IMAGING (06/29/2024) Anatomical Region Laterality Modality Other Result David Shin MD Final R esult * Cardiology Document Scan (06/28/2024 3:37 PM CLINICAL STUDIES SPECIALIST) Anatomical Region Laterality Modality Other Result David Shin MD [facility] PRO CEDURES Final Result * Cardiology Document Scan (06/27/2024 3:32 PM CLINICAL STUDIES SPECIALIST) Anatomical Region Laterality Modality Other us Gerhard Ratliff MD [facility] PROCEDURES F inal Result * Cardiology Document Scan (06/26/2024 3:20 PM CLINICAL STUDIES SPECIALIST) Anatomical Region Laterality Modality Other Result David Shin MD [facility] PRO CEDURES Final Result * Cardiology Document Scan (06/24/2024 3:16 PM CLINICAL STUDIES SPECIALIST) Anatomical Region Laterality Modality Other Result David Allegra Shin MD [facility] PRO CEDURES Final Result * Cardiology Document Scan (06/23/2024 3:10 PM CLINICAL STUDIES SPECIALIST) Anatomical Region Laterality Modality Other Result David De Guzman MD [facility] PROCEDU RES Final Result * Cardiology Document Scan (06/22/2024 3:04 PM CLINICAL STUDIES SPECIALIST) Anatomical Region Laterality Modality Other Result David De Guzman MD [facility] PROCEDU RES Final Result * Cardiology Document Scan (06/22/2024 3:03 PM CLINICAL STUDIES SPECIALIST) Anatomical Region Laterality Modality Other Result David De Guzman MD [facility] C[facility] PROCEDU RES Final Result * Cardiology Document Scan (06/22/2024 3:00 PM CLINICAL STUDIES SPECIALIST) Anatomical Region Laterality Modality Other Result David De Guzman MD [facility] PROCEDU RES Final Result * (ABNORMAL) eGFR (07/31/2022 5:30 AM CLINICAL STUDIES SPECIALIST) eGFR 54(L) 90 - 130 mL/min/1. 73 m2 [facility] Comment: Interpretive Data Reference Interval Normal [...] last reviewed 2021. Blood 07/31/2022 5:30 AM CLINICAL STUDIES SPECIALIST 07/31/2022 5:51 AM CLINICAL STUDIES SPECIALIST Lizabeth Strong MD LAB BLOOD ORDERABLES Fin al Result [facility] Department [place] [address] * (ABNORMAL) Hemoglobin A1c (07/30/2022 10:23 PM CLINICAL STUDIES SPECIALIST) Hgb A1C 10.7(H) 4.0 - 5.6 % [facility] Estimated Average Glucose 260 mg/dL [facility] Comment: The ADA recommends reporting an estimated Average Glucose (eAG) with all Hemoglobin A1c results using the equation derived from a study of 507 normal and diabetic adults. Minority populations were underrepresented and children were not included. (Diabetes Care 2020; 43(S1): S66-S76). The eAG is not equivalent to a fasting glucose. Blood 07/30/2022 10:2 3 PM CLINICAL STUDIES SPECIALIST 07/30/2022 10:39 PM CLINICAL STUDIES SPECIALIST us Lizabeth Strong MD LAB BLOOD ORDERABLES Fin al Result [facility] Department [place] [address] * (ABNORMAL) Lipid panel (07/30/2022 10:23 PM CLINICAL STUDIES SPECIALIST) Cholesterol 167 30 - 199 mg/dL [facility] [...] on 2018. LDL, calculated 93 <=129 mg/dL [facility] Comment: Interpretive Data Ages < or = [...] revised on 2018. Non-HDL Cholesterol 124 mg/dL [facility] Comment: Interpretive Data Ages < or = [...] last revised on 2018. Chol/HDL ratio 4 [facility] Blood 07/30/2022 10:2 3 PM CLINICAL STUDIES SPECIALIST 07/30/2022 10:39 PM CLINICAL STUDIES SPECIALIST us Lizabeth Strong MD LAB BLOOD ORDERABLES Fin al Result [facility] Department [place] [address] from Last 3 Months or Most Recently Relevant to Health Maintenance Insurance [facility] Member Subscriber Plan / Payer (Ef fective 2020-Present) Name:Albaro Rodriguez Relation to Subscriber:Self Name:Albaro Rodriguez Payer ID:[id number] (NAIC) Type:MEDICAID RISK OTHER Address: [place] [id number] [facility] Advance Directives For more information, please contact: [phone] * Full Code (Latest Code Status on File) Date Activated Date Inactivated Comments 07/30/2022 9:33 PM 07/31/2022 6:01 PM Care Teams Botany Professor Relationship Specialty Start Date End Date No, Physician PCP - General 07/30/22 Bunny Ramires MD 07/30/22
--- NOTE | 2024-08-16 07:01 | ED.GENADULT ---
HPI - General Adult General Chief complaint: Weakness <Dae Toledo MD - Last Filed: 08/16/24 07:06> Stated complaint: weakness <Dae Toledo MD - Last Filed: 08/16/24 07:06> Time Seen by Provider: 08/16/24 06:21 <Dae Toledo MD - Last Filed: 08/16/24 07:06> History of Present Illness HPI narrative: Patient is a 74-year-old gentleman who presents emergency department with chief complaint of abdominal pain and weakness. Patient was recently in the hospital after having a stroke and also has had a recent IN the patient had a stent placement and was then discharged home on the . Per the family they notice that he was complaining of abdominal discomfort and said that he wanted to come to the hospital they were also concerned that he may be having abdominal pain as he has been pointing to his abdomen. History is limited as the information is obtained through a air but transmit later <Dae Toledo MD - Last Filed: 08/16/24 07:06> Related Data Home medications: Home Medications ?Medication ?Instructions ?Recorded ?Confirmed ?Last Taken ?Type insulin glargine 100 unit/mL 18 unit subcut DAILY DM 10/29/23 07/24/24 07/17/24 History subcutaneous solution (Lantus U-100 Insulin) insulin lispro 100 unit/mL 1 sliding scale dose subcut ACHS dm 10/29/23 07/24/24 07/17/24 History subcutaneous pen lactulose 10 gram/15 mL oral 30 ml PO TID 06/22/24 07/24/24 Unknown History solution <Dae Toledo MD - Last Filed: 08/16/24 07:06> Allergies/adverse reactions: Allergies Allergy/AdvReac Type Severity Reaction Status Date / Time No Known Allergies Allergy Verified 08/05/24 09:48 <Dae Toledo MD - Last Filed: 08/16/24 07:06> Review of Systems Review of Systems: A 10 system review of systems was completed on the patient and is negative except for what is stated in the HPI. Nursing and ancillary documentation was reviewed. <Dae Toledo MD - Last Filed: 08/16/24 07:06> [facility] Past Medical History Medical History: Medical History Benign prostate hyperplasia ST elevation myocardial infarction (STEMI) (06/22/24) status post PCI to the LAD Ischemic cardiomyopathy Type 2 diabetes mellitus Hypertension Compression fracture of L4 vertebra Hyperlipidemia Urinary retention Chronic indwelling Joiner catheter Coronary artery disease <Dae Toledo MD - Last Filed: 08/16/24 07:06> Surgical History Surgical History: Surgical History History of open reduction and internal fixation (ORIF) procedure repair of left 4 through 9 rib fractures History of percutaneous coronary intervention (05/2024) PCI to the LAD <Dae Toledo MD - Last Filed: 08/16/24 07:06> Family History Family History: Family History Mother Family history unknown <Dae Toledo MD - Last Filed: 08/16/24 07:06> Social History Social History: Social History Social History: Surrogate medical decision maker: Delta Anderson, daughter ([phone]). Code status: Full code. Smoking status: Never smoker Second hand tobacco smoke exposure: No Alcohol intake: never Substance use: never Substance use type: does not use Do You Feel Safe in your Home?: Yes Lack of Transportation: YES Lack of Food: Never True Current Housing: I Have Housing Concerned About Future Housing: No Difficulty Paying Gas/Electric Bills: No Difficulty Paying for Meds: YES Currently Unemployed: No Education: Don't Know Difficulty w/ Childcare or Family Care: YES Living arrangements: with family Gender identity (if verbalized by the patient): Male Sexual Orientation (if Verbalized by the Patient): Straight or Heterosexual Spiritual care concerns: No <Dae Toledo MD - Last Filed: 08/16/24 07:06> Exam Narrative: GENERAL: Well-appearing, well-nourished, and in no acute distress. HEAD: Normocephalic, atraumatic. EYES: PERRLA and EOMI. ENT: Nares clear, no rhinorrhea or epistaxis. Mucous membranes moist. NECK: Supple. CHEST: Clear to auscultation. No respiratory distress. HEART: Regular rate and rhythm. No murmur heard. Normal peripheral pulses. ABDOMEN: Soft, nontender, nondistended, normal active bowel sounds. EXTREMITIES: Normal range of motion. No edema. SKIN: Warm, dry, no rash. NEURO: No focal deficits. Alert and oriented x3 he does appear to be slightly. PSYCH: Normal mood and affect. <Dae Toledo MD - Last Filed: 08/16/24 07:06> Course Reevaluation(s) Reevaluation #1: I assumed care of this patient at shift change with pending labs and disposition. Patient is sitting in a recliner quite confused. Discussed lab work with the grandson and his daughter. They do not want him to be admitted to a jail. Advised them to continue home medication high-fiber diet, follow-up with her primary doctor <Arron Esteban MD - Last Filed: 08/16/24 10:55> Date: 08/16/24 <Arron Esteban MD - Last Filed: 08/16/24 10:55> Vital Signs Vital signs: Vital Signs Temperature 36.5 C 08/16/24 03:00 Pulse Rate 56 L 08/16/24 03:00 Respiratory Rate 15 08/16/24 03:00 Blood Pressure 172/70 H 08/16/24 03:00 Pulse Oximetry 99 08/16/24 03:00 Oxygen Delivery Room Air 08/16/24 03:00 Temperature 36.5 C 08/16/24 03:00 Pulse Rate 59 L 08/16/24 04:53 Respiratory Rate 14 08/16/24 04:53 Blood Pressure 162/90 H 08/16/24 04:53 Pulse Oximetry 99 08/16/24 04:53 Oxygen Delivery Room Air 08/16/24 03:00 <Dae Toledo MD - Last Filed: 08/16/24 07:06> Vital Signs Temperature 36.5 C 08/16/24 03:00 Pulse Rate 56 L 08/16/24 03:00 Respiratory Rate 15 08/16/24 03:00 Blood Pressure 172/70 H 08/16/24 03:00 Pulse Oximetry 99 08/16/24 03:00 Oxygen Delivery Room Air 08/16/24 03:00 Temperature 36.5 C 08/16/24 03:00 Pulse Rate 59 L 08/16/24 04:53 Respiratory Rate 14 08/16/24 04:53 Blood Pressure 162/90 H 08/16/24 04:53 Pulse Oximetry 99 08/16/24 04:53 Oxygen Delivery Room Air 08/16/24 03:00 <Arron Esteban MD - Last Filed: 08/16/24 10:55> Medical Decision Making MDM Narrative Medical decision making narrative: Differential diagnosis includes electrolyte abnormality, ACS, UTI, intra-abdominal like <Dae Toledo MD - Last Filed: 08/16/24 07:06> Vital Signs Vital Signs: Vital Signs Temperature 36.5 C 08/16/24 03:00 Pulse Rate 56 L 08/16/24 03:00 Respiratory Rate 15 08/16/24 03:00 Blood Pressure 172/70 H 08/16/24 03:00 Pulse Oximetry 99 08/16/24 03:00 Oxygen Delivery Room Air 08/16/24 03:00 Temperature 36.5 C 08/16/24 03:00 Pulse Rate 59 L 08/16/24 04:53 Respiratory Rate 14 08/16/24 04:53 Blood Pressure 162/90 H 08/16/24 04:53 Pulse Oximetry 99 08/16/24 04:53 Oxygen Delivery Room Air 08/16/24 03:00 <Dae Toledo MD - Last Filed: 08/16/24 07:06> Vital Signs Temperature 36.5 C 08/16/24 03:00 Pulse Rate 56 L 08/16/24 03:00 Respiratory Rate 15 08/16/24 03:00 Blood Pressure 172/70 H 08/16/24 03:00 Pulse Oximetry 99 08/16/24 03:00 Oxygen Delivery Room Air 08/16/24 03:00 Temperature 36.5 C 08/16/24 03:00 Pulse Rate 59 L 08/16/24 04:53 Respiratory Rate 14 08/16/24 04:53 Blood Pressure 162/90 H 08/16/24 04:53 Pulse Oximetry 99 03/21/25 04:53 Oxygen Delivery Room Air 08/16/24 03:00 <Arron Esteban MD - Last Filed: 08/16/24 10:55> Lab Data Result diagrams: 08/16/24 03:52 08/16/24 03:52 <Dae Toledo MD - Last Filed: 08/16/24 07:06> Labs: Lab Results 08/16/24 08/16/24 08/16/24 Range/Units 03:52 04:43 07:28 WBC 6.5 (4.5-10.0) K/mm3 RBC 4.22 L (4.6-6.20) M/mm3 Hgb 12.0 L (14.0-18.0) g/dL Hct 38.1 L (42.0-52.0) % MCV 90.3 (80-100) fl MCH 28.4 (26-34) pg MCHC 31.5 L (32-36) g/dl RDW 15.2 H (11.5-14.5) % Plt Count 185 (150-375) k/mm3 MPV 11.6 H (7.4-10.4) fl Immature Gran % (Auto) 0.2 (0-0.5) % Neut % (Auto) 61.6 (45.5-73.1) % Lymph % (Auto) 26.2 (18.3-44.2) % [place] % (Auto) 8.9 H (2.6-8.5) % Eos % (Auto) 2.3 (0-4.4) % Baso % (Auto) 0.8 (0.2-1.2) % Lymph # (Auto) 1.71 (0.9-3.2) K/mm3 [place] # (Auto) 0.6 (0.1-0.6) K/mm3 Eos # (Auto) 0.2 (0-0.3) K/mm3 Baso # (Auto) 0.1 (0.0-0.1) K/mm3 Abs Immat Gran (auto) 0.01 (0.00-0.031) K/mm3 Absolute Neuts (auto) 4.0 (1.3-6.7) K/mm3 Absolute Nucleated RBC 0.000 (0.0-0.012) K/mm3 Nucleated RBC % 0.0 (0.0-0.2) % Sodium 139 (137-145) mmol/L Potassium 3.1 L (3.4-5.0) mmol/L Chloride 102 (98-107) mmol/L Carbon Dioxide 28 (22-30) mmol/L Anion Gap 9 (4-12) mmol/L BUN 21 H (9-20) mg/dL Creatinine 1.14 (0.7-1.3) mg/dL Estim Creat Clear Calc 50 ml/min Estimated GFR > 60 (59 - ) Glucose 246 H (65-110) mg/dL POC Capillary Glucose (65-105) mg/dl Calcium 8.6 (8.4-10.2) mg/dL Total Bilirubin 0.7 (0.2-1.3) mg/dL AST 23 (17-59) U/L ALT 19 (6-50) U/L Alkaline Phosphatase 100 (38-126) U/L Troponin I 0.040 H* 0.038 H* (0.000-0.034) ng/mL Total Protein 7.0 (6.3-8.2) g/dL Albumin 3.6 (3.5-5.1) g/dL Lipase 301 H (23-300) U/L Urine Color Yellow (Yellow) Urine Appearance Clear (Clear) Urine pH 5.0 (5.0-9.0) Ur Specific [place] 1.021 (1.001-1.035) Urine Protein 1+ H (Negative) mg/dL Urine Glucose (UA) Trace H (Negative) mg/dL Urine Ketones Trace H (Negative) mg/dL Ur Blood (Man) Negative (Negative) Urine Nitrate Negative (Negative) Urine Bilirubin Negative (Negative) Urine Urobilinogen 1.0 (<2.0) mg/dL Leukocyte Esterase Rfl Negative (Negative) CHARLIE/UL Urine RBC None seen (0-2) /hpf Urine WBC 0-3 (0-3) /hpf // Range/Units 09:03 WBC (4.5-10.0) K/mm3 RBC (4.6-6.20) M/mm3 Hgb (14.0-18.0) g/dL Hct (42.0-52.0) % MCV (80-100) fl MCH (26-34) pg MCHC (32-36) g/dl RDW (11.5-14.5) % Plt Count (150-375) k/mm3 MPV (7.4-10.4) fl Immature Gran % (Auto) (0-0.5) % Neut % (Auto) (45.5-73.1) % Lymph % (Auto) (18.3-44.2) % [place] % (Auto) (2.6-8.5) % Eos % (Auto) (0-4.4) % Baso % (Auto) (0.2-1.2) % Lymph # (Auto) (0.9-3.2) K/mm3 [place] # (Auto) (0.1-0.6) K/mm3 Eos # (Auto) (0-0.3) K/mm3 Baso # (Auto) (0.0-0.1) K/mm3 Abs Immat Gran (auto) (0.00-0.031) K/mm3 Absolute Neuts (auto) (1.3-6.7) K/mm3 Absolute Nucleated RBC (0.0-0.012) K/mm3 Nucleated RBC % (0.0-0.2) % Sodium (137-145) mmol/L Potassium (3.4-5.0) mmol/L Chloride (98-107) mmol/L Carbon Dioxide (22-30) mmol/L Anion Gap (4-12) mmol/L BUN (9-20) mg/dL Creatinine (0.7-1.3) mg/dL Estim Creat Clear Calc ml/min Estimated GFR (59 - ) Glucose (65-110) mg/dL POC Capillary Glucose 236 H (65-105) mg/dl Calcium (8.4-10.2) mg/dL Total Bilirubin (0.2-1.3) mg/dL AST (17-59) U/L ALT (6-50) U/L Alkaline Phosphatase (38-126) U/L Troponin I (0.000-0.034) ng/mL Total Protein (6.3-8.2) g/dL Albumin (3.5-5.1) g/dL Lipase (23-300) U/L Urine Color (Yellow) Urine Appearance (Clear) Urine pH (5.0-9.0) Ur Specific [place] (1.001-1.035) Urine Protein (Negative) mg/dL Urine Glucose (UA) (Negative) mg/dL Urine Ketones (Negative) mg/dL Ur Blood (Man) (Negative) Urine Nitrate (Negative) Urine Bilirubin (Negative) Urine Urobilinogen (<2.0) mg/dL Leukocyte Esterase Rfl (Negative) CHARLIE/UL Urine RBC (0-2) /hpf Urine WBC (0-3) /hpf <Dae Toledo MD - Last Filed: 08/16/24 07:06> Lab Results 08/16/24 08/16/24 08/16/24 Range/Units 03:52 04:43 07:28 WBC 6.5 (4.5-10.0) K/mm3 RBC 4.22 L (4.6-6.20) M/mm3 Hgb 12.0 L (14.0-18.0) g/dL Hct 38.1 L (42.0-52.0) % MCV 90.3 (80-100) fl MCH 28.4 (26-34) pg MCHC 31.5 L (32-36) g/dl RDW 15.2 H (11.5-14.5) % Plt Count 185 (150-375) k/mm3 MPV 11.6 H (7.4-10.4) fl Immature Gran % (Auto) 0.2 (0-0.5) % Neut % (Auto) 61.6 (45.5-73.1) % Lymph % (Auto) 26.2 (18.3-44.2) % [place] % (Auto) 8.9 H (2.6-8.5) % Eos % (Auto) 2.3 (0-4.4) % Baso % (Auto) 0.8 (0.2-1.2) % Lymph # (Auto) 1.71 (0.9-3.2) K/mm3 [place] # (Auto) 0.6 (0.1-0.6) K/mm3 Eos # (Auto) 0.2 (0-0.3) K/mm3 Baso # (Auto) 0.1 (0.0-0.1) K/mm3 Abs Immat Gran (auto) 0.01 (0.00-0.031) K/mm3 Absolute Neuts (auto) 4.0 (1.3-6.7) K/mm3 Absolute Nucleated RBC 0.000 (0.0-0.012) K/mm3 Nucleated RBC % 0.0 (0.0-0.2) % Sodium 139 (137-145) mmol/L Potassium 3.1 L (3.4-5.0) mmol/L Chloride 102 (98-107) mmol/L Carbon Dioxide 28 (22-30) mmol/L Anion Gap 9 (4-12) mmol/L BUN 21 H (9-20) mg/dL Creatinine 1.14 (0.7-1.3) mg/dL Estim Creat Clear Calc 50 ml/min Estimated GFR > 60 (59 - ) Glucose 246 H (65-110) mg/dL POC Capillary Glucose (65-105) mg/dl Calcium 8.6 (8.4-10.2) mg/dL Total Bilirubin 0.7 (0.2-1.3) mg/dL AST 23 (17-59) U/L ALT 19 (6-50) U/L Alkaline Phosphatase 100 (38-126) U/L Troponin I 0.040 H* 0.038 H* (0.000-0.034) ng/mL Total Protein 7.0 (6.3-8.2) g/dL Albumin 3.6 (3.5-5.1) g/dL Lipase 301 H (23-300) U/L Urine Color Yellow (Yellow) Urine Appearance Clear (Clear) Urine pH 5.0 (5.0-9.0) Ur Specific [place] 1.021 (1.001-1.035) Urine Protein 1+ H (Negative) mg/dL Urine Glucose (UA) Trace H (Negative) mg/dL Urine Ketones Trace H (Negative) mg/dL Ur Blood (Man) Negative (Negative) Urine Nitrate Negative (Negative) Urine Bilirubin Negative (Negative) Urine Urobilinogen 1.0 (<2.0) mg/dL Leukocyte Esterase Rfl Negative (Negative) CHARLIE/UL Urine RBC None seen (0-2) /hpf Urine WBC 0-3 (0-3) /hpf 08/16/24 Range/Units 09:03 WBC (4.5-10.0) K/mm3 RBC (4.6-6.20) M/mm3 Hgb (14.0-18.0) g/dL Hct (42.0-52.0) % MCV (80-100) fl MCH (26-34) pg MCHC (32-36) g/dl RDW (11.5-14.5) % Plt Count (150-375) k/mm3 MPV (7.4-10.4) fl Immature Gran % (Auto) (0-0.5) % Neut % (Auto) (45.5-73.1) % Lymph % (Auto) (18.3-44.2) % [place] % (Auto) (2.6-8.5) % Eos % (Auto) (0-4.4) % Baso % (Auto) (0.2-1.2) % Lymph # (Auto) (0.9-3.2) K/mm3 [place] # (Auto) (0.1-0.6) K/mm3 Eos # (Auto) (0-0.3) K/mm3 Baso # (Auto) (0.0-0.1) K/mm3 Abs Immat Gran (auto) (0.00-0.031) K/mm3 Absolute Neuts (auto) (1.3-6.7) K/mm3 Absolute Nucleated RBC (0.0-0.012) K/mm3 Nucleated RBC % (0.0-0.2) % Sodium (137-145) mmol/L Potassium (3.4-5.0) mmol/L Chloride (98-107) mmol/L Carbon Dioxide (22-30) mmol/L Anion Gap (4-12) mmol/L BUN (9-20) mg/dL Creatinine (0.7-1.3) mg/dL Estim Creat Clear Calc ml/min Estimated GFR (59 - ) Glucose (65-110) mg/dL POC Capillary Glucose 236 H (65-105) mg/dl Calcium (8.4-10.2) mg/dL Total Bilirubin (0.2-1.3) mg/dL AST (17-59) U/L ALT (6-50) U/L Alkaline Phosphatase (38-126) U/L Troponin I (0.000-0.034) ng/mL Total Protein (6.3-8.2) g/dL Albumin (3.5-5.1) g/dL Lipase (23-300) U/L Urine Color (Yellow) Urine Appearance (Clear) Urine pH (5.0-9.0) Ur Specific [place] (1.001-1.035) Urine Protein (Negative) mg/dL Urine Glucose (UA) (Negative) mg/dL Urine Ketones (Negative) mg/dL Ur Blood (Man) (Negative) Urine Nitrate (Negative) Urine Bilirubin (Negative) Urine Urobilinogen (<2.0) mg/dL Leukocyte Esterase Rfl (Negative) CHARLIE/UL Urine RBC (0-2) /hpf Urine WBC (0-3) /hpf <Arron Esteban MD - Last Filed: 08/16/24 10:55> Discharge Plan Discharge Clinical Impression: Chronic confusion Constipation Qualifiers: Constipation type: unspecified constipation type Qualified Code(s): K59.00 - Constipation, unspecified <Dae Toledo MD - Last Filed: 08/16/24 07:06> Patient Disposition: Home, Self-Care <Dae Toledo MD - Last Filed: 08/16/24 07:06> Condition: Stable <Dae Toledo MD - Last Filed: 08/16/24 07:06> Instructions: Antibiotic Form <Dae Toledo MD - Last Filed: 08/16/24 07:06> Patient Language: German <Dae Toledo MD - Last Filed: 08/16/24 07:06> Prescriptions: New senna 8.6 mg capsule 8.6 mg PO BID PRN (Reason: constipation) Qty: 14 0RF No Action lactulose 10 gram/15 mL solution 30 ml PO TID Brilinta 90 mg Tablet 90 mg PO Q12HR Qty: 90 3RF aspirin 81 mg Tablet,Delayed Release (Dr/Ec) 81 mg PO QAM Qty: 90 3RF atorvastatin [Lipitor] 80 mg tablet 80 mg PO DAILY Qty: 90 3RF losartan 25 mg Tablet 25 mg PO DAILY Qty: 90 3RF metoprolol succinate [Toprol XL] 50 mg tablet extended release 24 hr 50 mg PO DAILY Qty: 90 3RF tamsulosin 0.4 mg Capsule 0.4 mg PO QAM Qty: 30 0RF insulin glargine [Lantus U-100 Insulin] 100 unit/mL solution 18 unit SUBCUT DAILY insulin lispro 100 unit/mL insulin pen 1 sliding scale dose SUBCUT ACHS potassium chloride [Klor-Con M20] 20 mEq tablet,ER particles/crystals 20 meq PO BID 5 Days Qty: 10 0RF citalopram [Celexa] 10 mg tablet 10 mg PO DAILY Qty: 30 0RF <Dae Toledo MD - Last Filed: 08/16/24 07:06> Follow-up/Referrals: Nikolas,Donavon Chaidez MD [Primary Care Provider] - <Dae Toledo MD - Last Filed: 08/16/24 07:06> Time of Disposition: 09:04 <Dae Toledo MD - Last Filed: 08/16/24 07:06> 09:04 <Arron Esteban MD - Last Filed: 08/16/24 10:55>
[2024-08-16 08:21] LABS: Troponin I 0.038 ng/mL (0.000-0.034)
[2024-08-16 09:06] LABS: Glucose Point of Care 236 mg/dl (65-105)
== END 2024-08-16 09:41 | disposition home or self-care (01) ==
PROVIDERS: Emergency Medicine; Emergency Provider Family Medicine; PCP Family Medicine Sports Medicine
DX: R41.0 Disorientation, unspecified (principal); K59.00 Constipation, unspecified; Z86.73 Personal history of transient ischemic attack (TIA), and cerebral infarction without residual deficits; Z79.4 Long term (current) use of insulin; E11.9 Type 2 diabetes mellitus without complications; I10 Essential (primary) hypertension; E78.5 Hyperlipidemia, unspecified; I25.10 Atherosclerotic heart disease of native coronary artery without angina pectoris; I25.2 Old myocardial infarction
CPT/HCPCS: 36415; 74177; 80053; 81001; 82948; 83690; 84484; 85025; 99284; Q9967

== ENCOUNTER 2024-08-28 10:20 | Emergency (ER) | payer OTHER, SELFPAY ==
[2024-08-28 10:18] VITALS: PULSE 80; RESP 16; TEMP 36.6; O2SAT 99
--- NOTE | 2024-08-28 10:20 | PC.NURSE ---
Daughter of this pt called as soon as pt arrived to [place] [facility] via [facility] from [facility]. Daughter states she is POA of pt and requested pt to go to [facility], not to [facility]. She states [facility] refused to take pt to [facility] due to a policy of not traveling outside of [facility]. She wants to come pick-up patient and take him herself to the requested hospital of their choice. She states he just had neck surgery at [facility] and prefers for him to go to [facility]. She states she will come to [place] to sign him out and take him by private car to [facility].
--- NOTE | 2024-08-28 10:25 | ECG_ITS ---
Test Date: 2024-08-28 10:34:42 Measurements Intervals [place] Rate: 76 P: 34 SC: 180 QRS: 0 QRSD: 137 T: 112 QT: 426 QTc: 479 Interpretive Statements SINUS RHYTHM LEFT BUNDLE BRANCH BLOCK BASELINE ARTIFACT- I, II, III, AVR, V4-V6 ABNORMAL ECG Compared to ECG 08/11/2024 05:56:25 HEART RATE HAS INCREASED Left bundle-branch block now present Electronically Signed On 08-28-2024 10:36:26 CDT by Pascual Oakley D.O.
--- NOTE | 2024-08-28 10:34 | ED_ITS ---
HPI - General Adult General Chief complaint: Weakness Stated complaint: FTT History of Present Illness HPI narrative: 74-year-old male presents to the emergency department from local group home for reported evaluation of failure to thrive. Patient does have a history of a recent CVA and had been transferred to [facility] for a presumed carotid endarterectomy. Family wanted the patient transferred to [facility] but [facility] did not feel they were able to leave the [facility] so they brought the patient to [place]. Family was upset the patient was brought to our emergency department and they are wishing to take the patient by private transport to [place]. Related Data Home Medications ?Medication ?Instructions ?Recorded ?Confirmed ?Last Taken ?Type insulin glargine 100 unit/mL 18 unit subcut DAILY DM 10/29/23 07/24/24 07/17/24 History subcutaneous solution (Lantus U-100 Insulin) insulin lispro 100 unit/mL 1 sliding scale dose subcut ACHS dm 10/29/23 07/24/24 07/17/24 History subcutaneous pen lactulose 10 gram/15 mL oral 30 ml PO TID 06/22/24 07/24/24 Unknown History solution Allergies Allergy/AdvReac Type Severity Reaction Status Date / Time No Known Allergies Allergy Verified 08/05/24 09:48 Review of Systems 2 Review of Systems: All systems reviewed & are unremarkable except as noted in HPI and below PMFSH Past Medical History Medical History Benign prostate hyperplasia ST elevation myocardial infarction (STEMI) (06/22/24) status post PCI to the LAD Ischemic cardiomyopathy Type 2 diabetes mellitus Hypertension Compression fracture of L4 vertebra Hyperlipidemia Urinary retention Chronic indwelling Joiner catheter Coronary artery disease Surgical History Surgical History History of open reduction and internal fixation (ORIF) procedure repair of left 4 through 9 rib fractures History of percutaneous coronary intervention (05/2024) PCI to the LAD Family History Family History Mother Family history unknown Social History Social History Social History: Surrogate medical decision maker: Delta Anderson, daughter ([phone]). Code status: Full code. Smoking status: Never smoker Second hand tobacco smoke exposure: No Alcohol intake: never Substance use: never Substance use type: does not use Do You Feel Safe in your Home?: Yes Lack of Transportation: YES Lack of Food: Never True Current Housing: I Have Housing Concerned About Future Housing: No Difficulty Paying Gas/Electric Bills: No Difficulty Paying for Meds: YES Currently Unemployed: No Education: Don't Know Difficulty w/ Childcare or Family Care: YES Living arrangements: with family Gender identity (if verbalized by the patient): Male Sexual Orientation (if Verbalized by the Patient): Straight or Heterosexual Spiritual care concerns: No Exam 2 Narrative: APPEARANCE: Nonverbal well-appearing HEAD: normocephalic, atraumatic. EYES: PERRLA/EOMI, conjunctivae clear. NOSE: Normal no drainage EARS:TMS clear with good light reflex. THROAT: Pharynx clear, no exudate. NECK: Supple. No adenopathy, no masses. RESPIRATORY: Airway patent, respirations nonlabored. Clear to auscultation bilaterally, no rales, rhonchi, wheezing. CARDIOVASCULAR: Regular rate and rhythm without murmurs rubs or gallops. ABDOMINAL: Soft, nontender, nondistended, normal bowel sounds MUSCULOSKELETAL: Moves all extremities. Strength/ROM intact, No edema, No calf tenderness. NEURO: Alert. Cranial nerves II through XII intact. Good gait. Good coordination SKIN: Surgical dressing intact on right neck Course Vital Signs Vital signs: Vital Signs Temperature 97.9 F 08/28/24 10:18 Pulse Rate 80 08/28/24 10:18 Respiratory Rate 16 08/28/24 10:18 Pulse Oximetry 99 08/28/24 10:18 Oxygen Delivery Room Air 08/28/24 10:18 Temperature 97.9 F 08/28/24 10:18 Pulse Rate 77 08/28/24 12:00 Respiratory Rate 13 08/28/24 12:00 Blood Pressure 134/55 L 08/28/24 12:00 Pulse Oximetry 100 08/28/24 12:00 Oxygen Delivery Room Air 08/28/24 10:18 Medical Decision Making MDM Narrative Medical decision making narrative: 74-year-old male presents emergency department for evaluation for reported failure to thrive. Patient is currently afebrile with a normal sinus rhythm, no hypoxia and patient is normotensive. EKG shows EKG changes similar to his baseline. Patient is at a similar neuro baseline as to his previous visits to [place]. Family was adamant that they did not want the patient transferred by ambulance, they did not want to wait for the patient to be transferred to [facility] and may strongly prefer to take the patient by private transport. Family was warned of the risk of private transport but still preferred to transport the patient and her own vehicle. Patient was hemodynamically stable and in no acute distress at time transfer. Vital Signs Vital Signs: Vital Signs Temperature 97.9 F 08/28/24 10:18 Pulse Rate 80 08/28/24 10:18 Respiratory Rate 16 08/28/24 10:18 Pulse Oximetry 99 08/28/24 10:18 Oxygen Delivery Room Air 08/28/24 10:18 Temperature 97.9 F 08/28/24 10:18 Pulse Rate 77 08/28/24 12:00 Respiratory Rate 13 08/28/24 12:00 Blood Pressure 134/55 L 08/28/24 12:00 Pulse Oximetry 100 08/28/24 12:00 Oxygen Delivery Room Air 08/28/24 10:18 Lab Data 08/28/24 10:36 08/28/24 10:36 Labs: Lab Results 08/28/24 08/28/24 Range/Units 10:36 11:34 WBC 7.9 (4.5-10.0) K/mm3 RBC 3.93 L (4.6-6.20) M/mm3 Hgb 11.3 L (14.0-18.0) g/dL Hct 36.0 L (42.0-52.0) % MCV 91.6 (80-100) fl MCH 28.8 (26-34) pg MCHC 31.4 L (32-36) g/dl RDW 15.8 H (11.5-14.5) % Plt Count 299 D (150-375) k/mm3 MPV 11.1 H (7.4-10.4) fl Immature Gran % (Auto) 0.4 (0-0.5) % Neut % (Auto) 62.9 (45.5-73.1) % Lymph % (Auto) 23.2 (18.3-44.2) % Smith % (Auto) 9.5 H (2.6-8.5) % Eos % (Auto) 3.4 (0-4.4) % Baso % (Auto) 0.6 (0.2-1.2) % Lymph # (Auto) 1.84 (0.9-3.2) K/mm3 Smith # (Auto) 0.8 H (0.1-0.6) K/mm3 Eos # (Auto) 0.3 (0-0.3) K/mm3 Baso # (Auto) 0.1 (0.0-0.1) K/mm3 Abs Immat Gran (auto) 0.03 (0.00-0.031) K/mm3 Absolute Neuts (auto) 5.0 (1.3-6.7) K/mm3 Absolute Nucleated RBC 0.000 (0.0-0.012) K/mm3 Nucleated RBC % 0.0 (0.0-0.2) % PT 13.4 (11.1-14.7) Seconds INR 1.0 APTT 24.9 (22.3-36.8) Seconds Sodium 141 (137-145) mmol/L Potassium 4.5 (3.4-5.0) mmol/L Chloride 107 (98-107) mmol/L Carbon Dioxide 23 (22-30) mmol/L Anion Gap 11 (4-12) mmol/L BUN 22 H (9-20) mg/dL Creatinine 0.89 (0.7-1.3) mg/dL Estim Creat Clear Calc Not Reportable Estimated GFR > 60 (59 - ) Glucose 195 H (65-110) mg/dL Calcium 8.5 (8.4-10.2) mg/dL Total Bilirubin 1.3 (0.2-1.3) mg/dL AST 28 (17-59) U/L ALT 14 (6-50) U/L Alkaline Phosphatase 92 (38-126) U/L Total Protein 7.0 (6.3-8.2) g/dL Albumin 3.6 (3.5-5.1) g/dL Urine Color Dark yellow (Yellow) Urine Appearance Turbid H (Clear) Urine pH 5.5 (5.0-9.0) Ur Specific Tyler 1.021 (1.001-1.035) Urine Protein 1+ H (Negative) mg/dL Urine Glucose (UA) Negative (Negative) mg/dL Urine Ketones 2+ H (Negative) mg/dL Ur Blood (Man) 3+ H (Negative) Urine Nitrate Negative (Negative) Urine Bilirubin Negative (Negative) Urine Urobilinogen 1.0 (<2.0) mg/dL Add Ur Microanalysis Reviewed Leukocyte Esterase Rfl 1+ H (Negative) CHARLIE/UL Urine RBC >100 H (0-2) /hpf Urine WBC 0-5 (0-3) /hpf Ur Squamous Epith Cells Few (Few) /hpf Urine Bacteria None seen /hpf Urine Casts 11-20 Urine Mucus Present /lpf Influenza A (RT-PCR) Negative (Negative) Influenza B (RT-PCR) Negative (Negative) RSV (RT-PCR) Negative (Negative) SARS-CoV-2 RNA (RT-PCR) Negative (Negative) Discharge Plan Discharge Clinical Impression: Adult failure to thrive Patient Disposition: Left Against Medical Advice Condition: Serious Additional Instructions: You were offered medical workup and transfer to [facility] as needed but you preferred to take the patient by private transport. Patient Language: Georgian Prescriptions: No Action lactulose 10 gram/15 mL solution 30 ml PO TID Brilinta 90 mg Tablet 90 mg PO Q12HR Qty: 90 3RF aspirin 81 mg Tablet,Delayed Release (Dr/Ec) 81 mg PO QAM Qty: 90 3RF atorvastatin [Lipitor] 80 mg tablet 80 mg PO DAILY Qty: 90 3RF losartan 25 mg Tablet 25 mg PO DAILY Qty: 90 3RF metoprolol succinate [Toprol XL] 50 mg tablet extended release 24 hr 50 mg PO DAILY Qty: 90 3RF tamsulosin 0.4 mg Capsule 0.4 mg PO QAM Qty: 30 0RF insulin glargine [Lantus U-100 Insulin] 100 unit/mL solution 18 unit SUBCUT DAILY insulin lispro 100 unit/mL insulin pen 1 sliding scale dose SUBCUT ACHS potassium chloride [Klor-Con M20] 20 mEq tablet,ER particles/crystals 20 meq PO BID 5 Days Qty: 10 0RF citalopram [Celexa] 10 mg tablet 10 mg PO DAILY Qty: 30 0RF senna 8.6 mg capsule 8.6 mg PO BID PRN (Reason: constipation) Qty: 14 0RF Follow-up/Referrals: Nikolas,Donavon Chaidez MD [Primary Care Provider] -
[2024-08-28 10:45] LABS: Basophils Absolute Auto 0.1 K/mm3 (0.0-0.1); Basophils Percent Auto 0.6 % (0.2-1.2); Eosinophils Absolute Auto 0.3 K/mm3 (0-0.3); Eosinophils Percent Auto 3.4 % (0-4.4); Hemoglobin 11.3 g/dL (14.0-18.0); Immature Granulocyte Absolute 0.03 K/mm3 (0.00-0.031); Immature Granulocyte Percent A 0.4 % (0-0.5); Lymphocytes Absolute Auto 1.84 K/mm3 (0.9-3.2); Lymphocytes Percent Auto 23.2 % (18.3-44.2); Mean Corpuscular HGB Conc 31.4 g/dl (32-36); Mean Corpuscular Hemoglobin 28.8 pg (26-34); Mean Corpuscular Volume 91.6 fl (80-100); Mean Platelet Volume 11.1 fl (7.4-10.4); Monocytes Absolute Auto 0.8 K/mm3 (0.1-0.6); Monocytes Percent Auto 9.5 % (2.6-8.5); Neutrophils Percent Auto 62.9 % (45.5-73.1); Platelet Count Result 299 k/mm3 (150-375); Red Blood Count 3.93 M/mm3 (4.6-6.20); Red Cell Distribution Width 15.8 % (11.5-14.5); White Blood Count 7.9 K/mm3 (4.5-10.0)
[2024-08-28 10:56] LABS: Alanine Aminotransferase 14 U/L (6-50); Albumin Level 3.6 g/dL (3.5-5.1); Alkaline Phosphatase 92 U/L (38-126); Anion Gap 11 mmol/L (4-12); Aspartate Amino Transferase 28 U/L (17-59); Bilirubin,Total 1.3 mg/dL (0.2-1.3); Blood Urea Nitrogen 22 mg/dL (9-20); Calcium 8.5 mg/dL (8.4-10.2); Carbon Dioxide 23 mmol/L (22-30); Chloride 107 mmol/L (98-107); Estimated Glomerular Filt Rate > 60; Glucose 195 mg/dL (65-110); Potassium 4.5 mmol/L (3.4-5.0); Sodium 141 mmol/L (137-145)
[2024-08-28 10:58] LABS: Partial Thromboplastin Time 24.9 Seconds (22.3-36.8); Prothrombin Time 13.4 Seconds (11.1-14.7)
[2024-08-28 11:20] LABS: Influenza A QL RT-PCR Negative (Negative); Influenza B QL RT-PCR Negative (Negative); RSV RNA, RT-PCR Negative (Negative); SARS-CoV-2 RNA PCR Negative (Negative)
--- OUTSIDE RECORDS SUMMARY | 2024-08-28 11:48 | XMS_ITS | Clinical Summary ---
Author Organization [facility] Y[place] Address [address] [place] [address] Care Team Providers Care Ad Compositor Name Role Phone Unknown, Provider Primary Care Provider Donavon Holguin MD Unavailable [phone] [facility],non-owned Affiliates and Associated Physician Practices is amultiple site organization consisting of ambulatory clinics and hospital sitesin [place], [place], [place] and [place]. This disclosure is being madepursuant to the Care Everywhere program and may not contain all information available regarding this patient. Last updated 18.[facility] Allergies Active Allergy Reactions Criticality Noted [...] tablet 01/01/2023 Active Blood Glucose Monitoring Suppl ([employer] Verio Flex System) w/Device KIT USE DIRECTED THREE TIMES DAILY 01/01/2023 Active erythromycin (Romycin) 5 MG/GM ophthalmic ointment 03/23/2023 Active Keyword Rockstaruch Ultra test strip USE TO TEST FOUR TIMES DAILY 03/27/2023 Active TRUEplus 5-Bevel Pen Hitchita 32G X 4 MM MISC USE TO INJECT INSULIN UP TO 5 TIMES DAILY 07/11/2023 Active TRUEplus Insulin Syringe 30G X 5/16 0.5 ML MISC USE DIRECTED EVERY DAY 01/01/2023 Active Lancets (CinemaWell.comTOUCH DELICA PLUS 33G EXTRA FINE LANCET) TEST [...] original. Could not [facility] afford to provide a Home Health nurse [...] Follow up in: three months with PCP, Rn Imaging, Traveling Secretary, Baseboard Heating Installer, Established eye managed care analyst and Head Of Talent Management Last Assessment & Plan: Not on [...] Follow up in: three months with PCP, Rn Imaging, Traveling Secretary, Baseboard Heating Installer, Established eye managed care analyst and Head Of Talent Management Infected wound 04/12/2020 Sacral wound 02/19/2020 [...] Office Visit [facility] - Ophthalmology [address] [place] [address] [phone] Health Maintenance Due Date Last Done Comments [...] this topic Medical Devices Implanted Type Area Assistant Public Defender Device Identifier Shelf Expiration Date Model / Serial / Lot Gd Pin Orth 450mm 3.2mm Cocr Xtd Acc Implanted:Qty: 1 on 01/31/2020 by Dipesh Felix MD at [facility] Right: Sacral Iliac Joint [employer] [id number] / / Wshr 12.7mm 6.5mm Set Unv Orth Ss 1mm Implanted:Qty: 1 on 01/31/2020 by Dipesh Felix MD at [facility] Right: Sacral Iliac Joint [employer] [id number] / / Cannulated Screw, 4.0mm X40mm 1/2 Thread Implanted:Qty: 2 on 01/31/2020 by Dipesh Felix MD at [facility] Right: Ankle [id number] / / 8.0 X 9.5 Fully Threaded Screw Implanted:Qty: 1 on 01/31/2020 by Dipesh Felix MD at [facility] [id number] / / Plate 8 Hl Unv Matrixrib Ti Bone Nonster Implanted:Qty: 5 on 02/05/2020 by Dipesh Hernandez MD at [facility] Right: Chest Wall [employer] [id number] / / 2.7 Mm Matrixrib Locking Screw, Self-Drilling, 11mm Implanted:Qty: 35 on 02/05/2020 by Dipesh Hernandez MD at [facility] Right: Chest Wall [id number] 1 / / 2.7 Mm Matrixrib Locking Screw, Self-Drilling, 12mm Implanted:Qty: 2 on 02/05/2020 by Dipesh Hernandez MD at [facility] Right: Chest Wall [id number] 1 / / Plate 16 Hl Precontr Lck Lopro 4th Rb Implanted:Qty: 1 on 02/05/2020 by Dipesh Hernandez MD at [facility] Right: Chest Wall [employer] [id number] / / Clareon Uv Iol Ccaoto +23.0d Implanted:Qty: 1 on 09/28/2023 by Simeon Cannon MD at [facility] Left: Eye [employer] 02/20/2027 CCAOTO+23.0D / [id number] / N/A [employer] Iol Aspheric Uv Absorbing Iol Implanted:Qty: 1 on 10/12/2023 by Simeon Cannon MD at [facility] Right: Eye [employer] 02/18/2027 CCA0T0 +23.5D / [id number] / NA Procedures Procedure Name Priority Date/Time Associated Diagnosis Comments COMPREHENSIVE METABOLIC PANEL STAT 06/30/2020 2:29 PM TINNING MACHINE SET UP OPERATOR HEMOGLOBIN A1C Routine 04/18/2020 11:09 AM [facility] from Last 3 Months or Most Recently Relevant to Health Maintenance Results * (ABNORMAL) COMPREHENSIVE METABOLIC PANEL (06/30/2020 2:29 PM [facility]) BUN 29(H) 7 - 26 mg/dL 06/30/2020 3:00 PM [facility] Creatinine 1.2 0.6 - 1.2 mg/dL 06/30/2020 3:00 PM [facility] Sodium 138 136 - 145 mmol/L 06/30/2020 3:00 PM [facility] Potassium 3.7 3.5 - 4.5 mmol/L 06/30/2020 3:00 PM [facility] Chloride 96(L) 98 - 107 mmol/L 06/30/2020 3:00 PM [facility] CO2 28 22 - 29 mmol/L 06/30/2020 3:00 PM [facility] Glucose 144(H) 70 - 115 mg/dL 06/30/2020 3:00 PM [facility] Calcium 8.8 8.4 - 10.2 mg/dL 06/30/2020 3:00 PM [facility] Protein Total 6.5 6.0 - 8.3 g/dL 06/30/2020 3:00 PM [facility] Albumin 2.8(L) 3.4 - 5.0 g/dL 06/30/2020 3:00 PM [facility] Bilirubin Total 0.4 0.2 - 1.2 mg/dL 06/30/2020 3:00 PM [facility] Alkaline Phosphatase 108 40 - 150 Units/L 06/30/2020 3:00 PM [facility] ALT 20 0 - 55 Units/L 06/30/2020 3:00 PM [facility] AST 17 5 - 34 Units/L 06/30/2020 3:00 PM [facility] Anion Gap 18 8 - 18 06/30/2020 3:00 PM [facility] BUN/Creatinine Ratio 24(H) 7 - 23 06/30/2020 3:00 PM TINNING MACHINE SET UP OPERATOR [facility] Osmolality Calculated 294 270 - 300 mOsm/kg 06/30/2020 3:00 PM [facility] Albumin/Globulin Ratio 0.8(L) 1.1 - 2.3 06/30/2020 3:00 PM [facility] eGFR 60(L) >60 mL/min/1.7 3 m2 06/30/2020 3:00 PM [facility] Blood BLOOD SPECIMEN / Unknown Venipuncture / Unknown 06/30/2020 2:29 PM TINNING MACHINE SET UP OPERATOR 06/30/2020 2:37 PM [facility] Shaggy James MD LAB - CHEMISTRY KATHY CAMPA [facility] [address] [place] [address], [place] [phone] * (ABNORMAL) HEMOGLOBIN A1C (04/18/2020 11:09 AM TINNING MACHINE SET UP OPERATOR) Hemoglobin A1c 7.6(H) 4.4 - 6.3 % 04/19/2020 9:00 AM [facility] Estimated Average Glucose 171 mg/dL 04/19/2020 9:00 AM [facility] Comment: HbA1c Interpretation: Treatment target values recommended by ADA and other clinical organizations should be used to evaluate metabolic control in patients. Treatment Target Values: Normal : < 5.7% Pre-diabetes: 5.7-6.4% Diabetes: Equal to or greater than 6.5% Reference: [place] Diabetes Association Standards of Care in Diabetes -2014 In patients 70 years and older consider HbA1c target range of 7.0-7.5% Reference: Diabetes Mellitus in Older People: Position Statement on behalf of the International Association of Gerontology and Geriatrics (IAGG), the Diabetes Working Republican for Older People (EDWPOP), and the International Task Force of Experts in Diabetes. Ritesh Srinivasan, et al. J [employer] Medical Directors Association. 2012 Test results diagnostic of diabetes should be repeated for confirmation. The Sebia Capillary 2 assay for the measurement of HbA1c is a National Glycohemoglobin Standardization Program (NGSP)certified method. Blood BLOOD SPECIMEN / Unknown Lab Venipuncture / Unknown 04/18/2020 11:09 AM TINNING MACHINE SET UP OPERATOR 04/18/2020 11:40 AM TINNING MACHINE SET UP OPERATOR Narrative [facility] - 04/19/2020 9:00 AM TINNING MACHINE SET UP OPERATOR note^note Zhane Granger MD LAB - CHEMISTRY OR DERABLES [facility] [address] [place] [address], [place] [phone] from Last 3 Months or Most Recently [...] 3:26 PM 02/19/2020 5:52 PM Care Teams Ad Compositor Relationship Specialty Start Date End Date Unknown, Provider PCP - General 08/30/23 Donavon Connor MD Family Medicine 08/30/23
--- OUTSIDE RECORDS SUMMARY | 2024-08-28 11:49 | XMS_ITS | Referral Summary ---
Author Organization [facility], [facility] Address [address] [place] [address] Care Team Providers Care Psychological Operations Name Role Phone No, Physician Primary Care Provider [phone] Bunny Ramires MD Unavailable [phone] Encounters Date Type Department Care Team Description 07/29/2024 Orders Only [facility] Cardiology [address] [place] [address] [address] [place] [address] [phone] Gerhard Ratliff MD 07/15/2024 Telephone [facility] Cardiology [address] [place] [address] [address] [place] [phone] Gina Link MD 07/08/2024 2:00 PM PROBLEM MANAGER Office Visit [facility] Cardiology [address] [place] [address] [address] [place] [phone] Gina Link MD Hypertension associated with diabetes (HCC) (Primary Dx); Coronary artery disease involving [place] coronary artery of [place] heart without angina pectoris; Cardiomyopathy, ischemic 07/02/2024 Orders Only [facility] Cardiology [address] [facility] [address] [place] [phone] Gerhard Ratliff MD 06/29/[address] [facility] Health Information Management [address] [place] [id number] Allegra Shin MD 06/26/2024 Orders Only [facility] Cardiology [address] [place] [phone] Peyton De Guzman MD from [...] Cardiomyopathy, ischemic 07/22/2024 Coronary artery disease involving [place] heart 0 07/15/2024 Constipation, unspecified constipation type 08/2022 Assessment & Plan (07/31/2022 11:22 AM PROBLEM MANAGER): No symptoms or signs of mechanical [...] 07/30/2022 Assessment & Plan (07/31/2022 11:21 AM PROBLEM MANAGER): On metformin 500 mg twice daily [...] 07/30/2022 Assessment & Plan (07/31/2022 10:46 AM PROBLEM MANAGER): Not on any treatment at home. BP well controlled, CTM and add medications if needed Benign prostatic hyperplasia without lower urinary tract symptoms 07/30/2022 Assessment & Plan (07/31/2022 10:44 AM PROBLEM MANAGER): Patient was recently started on Flomax and finasteride at OSH. Patients son reported patient was experiencing difficulty urinating - continue home meds and pcp follow up for further management Stage 3a chronic kidney disease 07/30/2022 Assessment & Plan (07/31/2022 10:48 AM PROBLEM MANAGER): Creatinine is 1.48, up from the [...] on file Legal Sex Male 5:44 AM PROBLEM MANAGER Gender Identity Not on file Sexual Orientation Not on file Last Filed Vital Signs Vital Sign Reading Time Taken Comments Blood Pressure 116/60 07/08/2024 1:05 PM PROBLEM MANAGER Pulse 88 07/08/2024 1:05 PM PROBLEM MANAGER Temperature 36.5 C (97.7 F) 07/31/2022 8:00 AM PROBLEM MANAGER Respiratory Rate 16 07/31/2022 7:55 AM PROBLEM MANAGER Oxygen Saturation 99% 07/08/2024 1:05 PM PROBLEM MANAGER Inhaled Oxygen Concentration - - Weight 67.9 kg (149 lb 9.6 oz) 07/08/2024 1:05 P M PROBLEM MANAGER Height 162.6 cm (5' 4 ) 07/08/2024 1:05 PM PROBLEM MANAGER Body Mass Index 25.68 07/08/2024 1:05 PM PROBLEM MANAGER Plan of Treatment Not on file Procedures Procedure Name Priority Date/Time Associated Diagnosis Comments CARDIOLOGY DOCUMENT SCAN Routine 07/19/2024 3:34 PM PROBLEM MANAGER CARDIOLOGY DOCUMENT SCAN Routine 07/18/2024 2:33 PM PROBLEM MANAGER CARDIOLOGY DOCUMENT SCAN Routine 07/18/2024 2:12 PM PROBLEM MANAGER CARDIOLOGY DOCUMENT SCAN Routine 07/01/2024 3:53 PM PROBLEM MANAGER CARDIOLOGY DOCUMENT SCAN Routine 06/30/2024 3:49 PM PROBLEM MANAGER CARDIOLOGY DOCUMENT SCAN Routine 06/29/2024 3:44 PM PROBLEM MANAGER SCAN - RADIOLOGY/IMAGING 06/29/2024 CARDIOLOGY DOCUMENT SCAN Routine 06/28/2024 3:37 PM PROBLEM MANAGER CARDIOLOGY DOCUMENT SCAN Routine 06/27/2024 3:32 PM PROBLEM MANAGER CARDIOLOGY DOCUMENT SCAN Routine 06/26/2024 3:20 PM PROBLEM MANAGER CARDIOLOGY DOCUMENT SCAN Routine 06/24/2024 3:16 PM PROBLEM MANAGER CARDIOLOGY DOCUMENT SCAN Routine 06/23/2024 3:10 PM PROBLEM MANAGER CARDIOLOGY DOCUMENT SCAN Routine 06/22/2024 3:04 PM PROBLEM MANAGER CARDIOLOGY DOCUMENT SCAN Routine 06/22/2024 3:03 PM PROBLEM MANAGER CARDIOLOGY DOCUMENT SCAN Routine 06/22/2024 3:00 PM PROBLEM MANAGER EGFR Routine 07/31/2022 5:30 AM PROBLEM MANAGER HEMOGLOBIN A1C Routine 07/30/2022 10:23 PM PROBLEM MANAGER LIPID PANEL Routine 07/30/2022 10:23 PM PROBLEM MANAGER from Last 3 Months or Most Recently Relevant to Health Maintenance Results * Cardiology Document Scan (07/19/2024 3:34 PM PROBLEM MANAGER) Anatomical Region Laterality Modality Other Result David Shin MD [facility] PRO CEDURES Final Result * Cardiology Document Scan (07/18/2024 2:33 PM PROBLEM MANAGER) Anatomical Region Laterality Modality Other Result David Ratliff MD [facility] PROCEDURES F inal Result * Cardiology Document Scan (07/18/2024 2:12 PM PROBLEM MANAGER) Anatomical Region Laterality Modality Other Result David Ratliff MD [facility] PROCEDURES F inal Result * Cardiology Document Scan (07/01/2024 3:53 PM PROBLEM MANAGER) Anatomical Region Laterality Modality Other Result David Ratliff MD [facility] PROCEDURES F inal Result * Cardiology Document Scan (06/30/2024 3:49 PM PROBLEM MANAGER) Anatomical Region Laterality Modality Other Result David Shin MD [facility] PRO CEDURES Final Result * Cardiology Document Scan (06/29/2024 3:44 PM PROBLEM MANAGER) Anatomical Region Laterality Modality Other Result David Shin MD [facility] PRO CEDURES Final Result * SCAN - RADIOLOGY/IMAGING (06/29/2024) Anatomical Region Laterality Modality Other Result David Shin MD Final R esult * Cardiology Document Scan (06/28/2024 3:37 PM PROBLEM MANAGER) Anatomical Region Laterality Modality Other Result David Shin MD [facility] PRO CEDURES Final Result * Cardiology Document Scan (06/27/2024 3:32 PM PROBLEM MANAGER) Anatomical Region Laterality Modality Other us Gerhard Ratliff MD [facility] PROCEDURES F inal Result * Cardiology Document Scan (06/26/2024 3:20 PM PROBLEM MANAGER) Anatomical Region Laterality Modality Other Result David Shin MD [facility] PRO CEDURES Final Result * Cardiology Document Scan (06/24/2024 3:16 PM PROBLEM MANAGER) Anatomical Region Laterality Modality Other Result David Allegra Shin MD [facility] PRO CEDURES Final Result * Cardiology Document Scan (06/23/2024 3:10 PM PROBLEM MANAGER) Anatomical Region Laterality Modality Other Result David De Guzman MD [facility] PROCEDU RES Final Result * Cardiology Document Scan (06/22/2024 3:04 PM PROBLEM MANAGER) Anatomical Region Laterality Modality Other Result David De Guzman MD [facility] PROCEDU RES Final Result * Cardiology Document Scan (06/22/2024 3:03 PM PROBLEM MANAGER) Anatomical Region Laterality Modality Other Result David De Guzman MD [facility] PROCEDU RES Final Result * Cardiology Document Scan (06/22/2024 3:00 PM PROBLEM MANAGER) Anatomical Region Laterality Modality Other Result David De Guzman MD [facility] PROCEDU RES Final Result * (ABNORMAL) eGFR (07/31/2022 5:30 AM PROBLEM MANAGER) eGFR 54(L) 90 - 130 mL/min/1. 73 m2 [facility] Comment: Interpretive Data Reference Interval [...] last reviewed 2021. Blood 07/31/2022 5:30 AM PROBLEM MANAGER 07/31/2022 5:51 AM PROBLEM MANAGER Lizabeth Strong MD LAB BLOOD ORDERABLES Fin al Result [facility] Department [place] [address] * (ABNORMAL) Hemoglobin A1c (07/30/2022 10:23 PM PROBLEM MANAGER) Hgb A1C 10.7(H) 4.0 - 5.6 % [facility] Estimated Average Glucose 260 mg/dL [facility] Comment: The ADA recommends reporting an estimated Average Glucose (eAG) with all Hemoglobin A1c results using the equation derived from a study of 507 normal and diabetic adults. Minority populations were underrepresented and children were not included. (Diabetes Care 2020; 43(S1): S66-S76). The eAG is not equivalent to a fasting glucose. Blood 07/30/2022 10:2 3 PM PROBLEM MANAGER 07/30/2022 10:39 PM PROBLEM MANAGER us Lizabeth Strong MD LAB BLOOD ORDERABLES Fin al Result [facility] Department [place] [address] * (ABNORMAL) Lipid panel (07/30/2022 10:23 PM PROBLEM MANAGER) Cholesterol 167 30 - 199 mg/dL [...] on 2018. LDL, calculated 93 <=129 mg/dL [facility] Comment: Interpretive Data [...] Non-HDL Cholesterol 124 mg/dL [facility] Comment: Interpretive Data [...] last revised on 2018. Chol/HDL ratio 4 [facility] Blood 07/30/2022 10:2 3 PM PROBLEM MANAGER 07/30/2022 10:39 PM PROBLEM MANAGER us Lizabeth Strong MD LAB BLOOD ORDERABLES Fin al Result [facility] [place] [address] from Last 3 Months or Most Recently Relevant to Health Maintenance Insurance [facility] Member Subscriber Plan / Payer (Ef fective 2020-Present) Name:Albaro Rodriguez Relation to Subscriber:Self Name:Albaro Rodriguez Payer ID:[id number] (NAIC) Type:MEDICAID RISK OTHER Address: [place] [address] [facility] Advance Directives For more information, please contact: [phone] * Full Code (Latest Code Status on File) Date Activated Date Inactivated Comments 07/30/2022 9:33 PM 07/31/2022 6:01 PM Care Teams Psychological Operations Relationship Specialty Start Date End Date No, Physician PCP - General 07/30/22 Bunny Ramires MD 07/30/22
--- OUTSIDE RECORDS SUMMARY | 2024-08-28 11:49 | XMS_ITS ---
INTRAOPERATIVE DUPLEX IMAGING-GUIDANCE VASCULAR LAB Pat.Name: RAMÍREZ PERES Pat.ID: [id number] .Date: 08/23/2024 Exam Time: 4:32:00 PM Study Type:KIKE VS Intraoperative Height: 64 in Age: 9 1950,74Y Sex: M Sonogrphr: Vaishnavi Cervantes [facility] Pat. Stat.:Inpatient Room: OR 8 History / Clinical:intraoperative scan right carotid endarterectomy Procedures: Ta scale, Color Doppler imaging, Doppler Spectral Analysis Race: X ++++++++++++++++++++++++++++++++++++ SUMMARY: ++++++++++++++++++++++++++++++++++++ No significant plaque or defects noted at the right endarterectomized carotid artery. The proximal common carotid is widely patent. The external carotid is patent. CONCLUSION: Patent carotid endarterectomy with no significant plaque or intimal flaps in the common or internal carotid arteries. <Electronic Signature> 08/25/2024 03:03 PM Jeanmarie Medrano M.D. Procedure Note Jeanmarie Medrano MD - 08/25/2024 INTRAOPERATIVE DUPLEX IMAGING-GUIDANCE VASCULAR LAB Pat.Name: RAMÍREZ PERES Pat.ID: [id number] .Date: 08/23/2024 Exam Time: 4:32:00 PM Study Type:KIKE VS Intraoperative Height: 64 in Age: 9 1950,74Y Sex: M Sonogrphr: Vaishnavi Cervantes, [facility] Pat. Stat.:Inpatient Room: OR 8 History / Clinical:intraoperative scan right carotid endarterectomy Procedures: Ta scale, Color Doppler imaging, Doppler Spectral Analysis Race: X ++++++++++++++++++++++++++++++++++++ SUMMARY: ++++++++++++++++++++++++++++++++++++ No significant plaque or defects noted at the right endarterectomized carotid artery. The proximal common carotid is widely patent. The external carotid is patent. CONCLUSION: Patent carotid endarterectomy with no significant plaque or intimal flaps in the common or internal carotid arteries. <Electronic Signature> 08/25/2024 03:03 PM Jeanmarie Medrano M.D. Result [facility] Jeanmarie Medrano MD [facility] Final Result * ART LINE PLACEMENT (08/23/2024 3:11 PM CDT) Andre Mathur MD - 08/23/2024 3:11 PM CDT Andre Whittington MD 08/23/2024 3:23 PM Art Line Date/Time: 08/23/2024 3:11 PM Performed by: Andre Whittington MD Authorized by: Andre Whittington MD Patient Location: OR Placed Outside of This Facility?: No Size: 20 Orientation: Left Location: Radial Site Prep: Chlorhexadine Insertion Attempts: 3 Ultrasound-guided Placement: Yes Ultrasound was used to identify the vessel. It was assessed and patent and Ultrasound was used to visualized vascular needle entry into the vessel Secure Method: Taped Patient Tolerance: Tolerated well Consent obtained pre-operatively for arterial line placement in operating room prior to surgery. Radial pulse palpated on left wrist. Area prepped with Chlor-Prep. 20G Arrow catheter attempted in left radial artery x 2 failed. Both times unable to slide the catheter. Third attempt difficult but was able to slide abbocath. All attempts under ultrasound. Secured with tegaderm. Wrist rest applied. No immediate complications. Result [facility] Andre Whittington MD [facility] Final Result * HEPARIN, ANTI XA, UFH (08/23/2024 12:15 PM CDT) Only the most recent of10 resultswithin the time period is included. HEPARIN ANTI XA UFH 0.63 0.30 - 0.70 IU/ML 08/23/2024 12:54 PM CDT [facility] Comment: UFH Therapeutic Anti Xa Ranges: Medical Therapeutic Range: 0.30 - 0.70 IU/mL Cardiac Therapeutic Range: 0.30 - 0.50 IU/mL Neuro Therapeutic Range: 0.20 - 0.40 IU/mL 08/23/2024 12:1 5 PM CDT Perlita Beavers MD LABORATORY Final Res ult [facility] [address] [place] [address], [place] [phone] * ECG 12 lead (08/23/2024 10:02 AM CDT) Only the most recent of4 resultswithin the time period is included. 08/23/2024 10:0 2 AM CDT Narrative [facility] - 08/23/2024 7:07 PM CDT [address] Test Date: 2024-08-23 [facility] Department: 40 Room: [facility] Gender: Male College Admissions Counselor: : 1950 Requested By: VAISHNAVI TAI Order Number: [id number] Reading MD: Abundio Singh Measurements Intervals [place] Rate: 82 P: 50 DE: 164 QRS: 11 QRSD: 142 T: 116 QT: 408 QTc: 479 Interpretive Statements SINUS RHYTHM LEFT BUNDLE BRANCH BLOCK [120+ ms QRS DURATION, 80+ ms Q/S IN V1/V2, 85+ ms R IN I/aVL/V5/V6] Compared to ECG 08/22/2024 16:09:50 Left bundle-branch block now present T-wave abnormality no longer present Possible ischemia no longer present Procedure Note Abundio Singh MD - 08/23/[address] Test Date: 2024-08-23 Pat [facility] Department: 40 Room: [facility] Gender: Male College Admissions Counselor: : 1950 Requested By: VAISHNAVI TAI Order Number: [id number] Reading MD: Abundio Singh Measurements Intervals [place] Rate: 82 P: 50 DE: 164 QRS: 11 QRSD: 142 T: 116 QT: 408 QTc: 479 Interpretive Statements SINUS RHYTHM LEFT BUNDLE BRANCH BLOCK [120+ ms QRS DURATION, 80+ ms Q/S IN V1/V2, 85+ms R IN I/aVL/V5/V6] Compared to ECG 08/22/2024 16:09:50 Left bundle-branch block now present T-wave abnormality no longer present Possible ischemia no longer present Vaishnavi Tai MD ECG ORDERABLES Final Result Performing Organization Address [facility] Co de Phone Number [facility] * TROPONIN, QUANT (08/23/2024 4:00 AM CDT) Only the most recent of5 resultswithin the time period is included. TROPONIN I HIGH SENSITIVITY 50 <79 ng/L 08/23/2024 9:56 AM CDT [facility] Comment: HIGH DOSES OF BIOTIN, TROPONIN-SPECIFIC AUTOANTIBODIES, AND ANTIBODY THERAPY CONTAINING HAMA MAY INTERFERE WITH THIS TEST RESULT. CORRELATION TO CLINICAL HISTORY AND PRESENTATION RECOMMENDED. 08/23/2024 4:00 AM CDT Julio Donis MD LABORATORY F inal Result [facility] [address] [place] [address], [place] [phone] * Pathology (08/23/2024 12:00 AM CDT) PATHOLOGY [facility] Department of Laboratory Medicine [address] [place] [address] , extension [phone] Pathology Report Surgical Pathology Report Name: RAMÍREZ PERES Specimen #: [id number] Age: 9 1950 (Age: 74) Location: [facility] Sex: M Procedure Date: 08/23/2024 [facility] #: [id number] Date Received: 08/26/2024 Date Reported: 08/27/2024 Provider: JEANMARIE TODD MD Source: Artery, right carotid, plaque Clinical History: Right carotid artery stenosis FINAL DIAGNOSIS: Right carotid artery, endarterectomy: -Severe calcific atherosclerosis. Gross Description: Received in formalin, labeled with a patient's label and right carotid plaque , is a 3.1 x 1.3 x 0.6 cm portion of yellow-haney firm tissue. Sections reveal yellow-haney calcified cut surfaces. There are no grossly identifiable masses or lesions. Uppers Edge Burnisher sections are submitted after decal in cassette 1. Gross examination (when applicable), interpretation, and sign out were performed at [facility], [address] [place] [address]. Electronically Signed Out YEMI THOMPSON MD [facility] TISSUE (OTHER (type in comments)) 08/23/2024 4:15 PM CDT us Jeanmarie Medrano MD PATHOLOGY/CYTOLOGY ORDERABLES Fi nal Result [facility] [address] [place] [address], [phone] * CTA HEART W 3D IMAGING (08/21/2024 9:28 AM CDT) Anatomical Region Laterality Modality Cardiac Computed Tomogra phy 08/26/2024 1:48 PM CDT Addenda Addendum by Maryuri Casiano MD on 08/28/2024 4:55 AM CDT Table formatting from the original result was not included. CT ANGIOGRAM (Cardiology Portion) Patient Name: Ramírez Peres : 1950 Date of Study: 08-21-2024 Interpreting Diamond Die Polisher: MARYURI CASIANO M.D. Indication: Rule out thrombus ADDITIONAL NON-CARDIAC STRUCTURES AND LUNGS READ BY RADIOLOGY COLLEAGUES. IMPRESSION No left atrial appendage thrombus. Extensive coronary artery calcification. No significant ascending aortic calcification. Mild aortic arch calcification. Interpreting Diamond Die Polisher: MARYURI CASIANO M.D. 08/26/24 Narrative 08/26/2024 11:42 AM CDT [address] [address] EXAMINATION: CARDIAC COMPUTED TOMOGRAPHY ANGIOGRAM, ROUTINE CORONARY CTA. LUNG OVER READ. DATE: 08/21/2024 HISTORY: 74-year old male rule out left atrial appendage thrombus. COMPARISON: None. TECHNIQUE: Multidetector computerized tomography coronary angiogram was obtained using retrospective ECG gating after the administration of 80 mL of Isovue-370 intravenous contrast at 5 mL/sec with 50 mL saline push according to coronary CTA protocol. ECG tube modulation was used to reduce the radiation exposure. A dose lowering technique was used for this procedure, which may include, but is not limited to, dose reduction technique, automated exposure control, the use of iterative reconstruction, and ALARA (As Low As Reasonably Achievable) / Image Gently techniques. Medications: Administered by cardiology service. Vital signs: Recorded by cardiology service. Procedure Complications/Allergic reactions: None. Coronary CT angiogram quality: Determined by cardiology service. FINDINGS: CORONARY ARTERY ANGIOGRAM AND OTHER CARDIAC FINDINGS: Interpreted by piece jobber. EXTRACARDIAC FINDINGS: Expiration images chest. Dependent atelectasis. No suspicious mass or consolidation in the visualized lungs. The visualized thoracic aorta is atherosclerotic. Visualized pulmonary artery appears normal. Accessory/replaced left hepatic artery. Multiple plates along the right ribs. IMPRESSION: 1. Cardiac findings interpreted by piece jobber. 2. No suspicious mass or consolidation in the visualized lungs. Ordered By: MARYURI CASIANO Interpreted By: Romulo Loving MD, 08/26/2024 1:48 PM us Maryuri Casiano MD CT Edited Resu lt - Final * CT HEAD WO CON (08/21/2024 9:28 AM CDT) Only the most recent of2 resultswithin the time period is included. Anatomical Region Laterality Modality Head Computed Tomogra phy 08/21/2024 9:32 AM CDT Impressions 08/21/2024 9:35 AM CDT IMPRESSION: 1. No CT evidence of an acute intracranial hemorrhage. 2. Redemonstrated focal hypodensities within the right centrum semiovale and mccann radiata regions of the right frontoparietal lobe. Additional right temporoparietal periventricular white matter hypodensities, as evidence for evolving acute infarcts. 3. 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 4. Moderate global cerebral volume loss. Ordered By: CHRISTIANO BETANCOURT Interpreted By: Jeanmarie Schafer MD, 08/21/2024 9:32 AM Narrative 08/21/2024 9:35 AM CDT [address] [address] EXAMINATION: CT of the head without contrast EXAM DATE/TIME: 08/21/2024 8:34 AM REASON FOR EXAM: Multifocal CVA on heparin gtt - monitoring for bleed COMPARISON: CT head 08/19/2024 TECHNIQUE: Noncontrast CT examination of the head was performed with axial images obtained. Additional coronal and sagittal reformatted images were generated at a separate workstation. A dose lowering technique was used for this procedure, which may include, but is not limited to, dose reduction technique, automated exposure control, iterative reconstruction, ALARA (As Low As Reasonably Achievable), or Image Gently techniques. FINDINGS: Redemonstrated focal hypodensities within the right centrum semiovale and mccann radiata regions of the right frontoparietal lobe. Additional right temporoparietal periventricular white matter hypodensities, as evidence for evolving acute infarcts. Old infarcts involving the superior right frontoparietal convexity. No acute intracranial hemorrhage. Moderate global cerebral volume loss. Moderate arteriosclerotic calcification the cavernous segments the internal carotid arteries bilaterally. Prior bilateral ocular lens extractions with prosthetic lens implantation. Paranasal sinuses and mastoid air cells are well aerated. There is no acute fracture nor destructive process of the visualized osseous structures. Procedure Note Jeanmarie Schafer MD - 08/21/[address] [address] EXAMINATION: CT of the head without contrast EXAM DATE/TIME: 08/21/2024 8:34 AM REASON FOR EXAM: Multifocal CVA on heparin gtt - monitoring for bleed COMPARISON: CT head 08/19/2024 TECHNIQUE: Noncontrast CT examination of the head was performed with axialimages obtained. Additional coronal and sagittal reformatted images weregenerated at a separate workstation. A dose lowering technique was usedfor this procedure, which may include, but is not limited to, dosereduction technique, automated exposure control, iterative reconstruction,ALARA (As Low As Reasonably Achievable), or Image Gently techniques. FINDINGS: Redemonstrated focal hypodensities within the right centrumsemiovale and mccann radiata regions of the right frontoparietal lobe.Additional right temporoparietal periventricular white matterhypodensities, as evidence for evolving acute infarcts. Old infarctsinvolving the superior right frontoparietal convexity. No acuteintracranial hemorrhage. Moderate global cerebral volume loss. Moderatearteriosclerotic calcification the cavernous segments the internal carotidarteries bilaterally. Prior bilateral ocular lens extractions withprosthetic lens implantation. Paranasal sinuses and mastoid air cells arewell aerated. There is no acute fracture nor destructive process of thevisualized osseous structures. IMPRESSION: 1. No CT evidence of an acute intracranial hemorrhage. 2. Redemonstrated focal hypodensities within the right centrum semiovaleand mccann radiata regions of the right frontoparietal lobe. Additionalright temporoparietal periventricular white matter hypodensities, asevidence for evolving acute infarcts. 3. 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 4. Moderate global cerebral volume loss. Ordered By: CHRISTIANO BETANCOURT Interpreted By: Jeanmarie Schafer MD, 08/21/2024 9:32 AM Christiano Betancourt MD CT Final Result * MRSA SCREENING (08/21/2024 4:11 AM CDT) SPEC DESCRIPTION NASAL 08/21/2024 4:11 AM CDT [facility] SPECIAL REQUESTS NO SPECIAL REQUEST 08/21/2024 4:11 AM CDT [facility] CULTURE RESULT NO METHICILLIN RESISTANT STAPHYLOCOCCUS AUREUS ISOLATED 08/22/2024 6:53 AM CDT [facility] SPECIMEN FROM INTERNAL NOSE / Unknown 08/21/2024 4:11 AM CDT 08/21/2024 4:29 AM CDT Christiano Betancourt MD MICROBIOLOGY - GENERAL ORDERABL ES Final Result Performing Organization Address City/[facility]/ZIP Co de Phone Number [facility] [address] [place] [address], [place] [phone] * PARTIAL THROMBOPLASTIN TIME,PTT (08/20/2024 6:00 PM CDT) Only the most recent of2 resultswithin the time period is included. PTT 32.1 25.1 - 36.5 SEC 08/20/2024 6:39 PM CDT [facility] 08/20/2024 6:00 PM CDT us Christiano Betancourt MD LABORATORY Final Result [facility] [address] [place] [address], [place] [phone] * PROTIME/INR, VENOUS (08/20/2024 6:00 PM CDT) Only the most recent of2 resultswithin the time period is included. PROTIME 10.6 10.2 - 12.9 SEC 08/20/2024 6:39 PM CDT [facility] INR 0.9 08/20/2024 6:39 PM CDT [facility] Comment: Recommended INR Therapeutic Goals: 2.0-3.0 Routine Therapy 2.5-3.5 Mechanical Prosthetic Valves (High Risk) 08/20/2024 6:00 PM CDT us Christiano Betancourt MD LABORATORY Final Result [facility] [address] [place] [address], [place] [phone] * USV CAROTID DUPLEX GARY (08/20/2024 2:53 PM CDT) Anatomical Region Laterality Modality Neck Vascular Ultraso und 08/20/2024 2:10 PM CDT Narrative 08/20/2024 9:30 PM CDT CAROTID ARTERY DUPLEX IMAGING VASCULAR LAB Pat.Name: RAMÍREZ PERES Pat.ID: [id number] .Date: 08/20/2024 Refer.MD: Donavon Connor Exam Time: 2:10:00 PM Study Type:KIKE VS Duplex Carotid BI Height: 64 in Age: 9 1950,74Y Sex: M Sonogrphr: Tomasa Cotto RVT Procedures: Ta scale, Color Doppler imaging, Doppler Spectral Analysis Race: X ++++++++++++++++++++++++++++++++++++ SUMMARY: ++++++++++++++++++++++++++++++++++++ St E's Carotid Criteria 50-69% = PSV 180-230 and/or Ratio 2.0 - 4.0 >70% = PSV >230 and Ratio >4.0 or EDV >100 Stent Criteria >80% = PSV >340 and Ratio >4.0 Right side: The right bifurcation-internal carotid artery has severe, calcified, irregular plaque. Internal carotid maximum velocity is 370/59 cm/s, with a ratio of 13.1 . The common carotid artery has no plaque present. The external carotid artery has no plaque proximally. Vertebral artery flow is antegrade. No defined ulceration noted. Left side: The left bifurcation-internal carotid artery has mild, calcified plaque. Internal carotid maximum velocity is 146 cm/s , with a ratio of 2.53 . The common carotid artery has elevated velocity 149 cm/s plaque present. The external carotid artery has mild plaque proximally. Vertebral artery flow is antegrade. No defined ulceration noted. CONCLUSION: The right internal carotid artery shows string sign with possible distal disease. The left internal shows mild calcific disease. Bilateral vertebral arteries are antegrade bilaterally. ++++++++++++++++++++++++++++++++++++ MEASUREMENTS: ++++++++++++++++++++++++++++++++++++ DOPPLER Right Prox CCA Prox CCA PSV 46 cm/s Right Dist CCA Dist CCA PSV 28.3 cm/s Prox ICA Prox ICA PSV 22 cm/s Mid ICA Mid ICA PSV 370 cm/s Right Mid ICA Mid ICA EDV 60 cm/s Right Dist ICA Dist ICA PSV 15 cm/s Right Prox ECA Prox ECA PSV 90.8 cm/s Right Vertebral Vertebral PSV 103 cm/s Right ICA/CCA RATIO ICA/CCA RATIO P 13.1 Left Prox CCA Prox CCA PSV 110 cm/s Left Dist CCA Dist CCA PSV 57.8 cm/s Left Prox ICA Prox ICA PSV 103 cm/s Left Mid ICA Mid ICA PSV 146 cm/s Left Dist ICA Dist ICA PSV 86.7 cm/s Left Prox ECA Prox ECA PSV 94.4 cm/s Left Vertebral Vertebral PSV 106 cm/s Left ICA/CCA RATIO ICA/CCA RATIO P 2.53 Internal Carotid Artery Left Internal C 0 <Electronic Signature> 08/20/2024 09:30 PM Jeanmarie Medrano M.D. Procedure Note Jeanmarie Medrano MD - 08/20/2024 CAROTID ARTERY DUPLEX IMAGING VASCULAR LAB Pat.Name: RAMÍREZ PERES Pat.ID: [id number] .Date: 08/20/2024 Refer.MD: Donavon Connor Exam Time: 2:10:00 PM Study Type:KIKE VS Duplex Carotid BI Height: 64 in Age: 9 1950,74Y Sex: M Sonogrphr: Tomasa Cotto RVT Procedures: Ta scale, Color Doppler imaging, Doppler Spectral Analysis Race: X ++++++++++++++++++++++++++++++++++++ SUMMARY: ++++++++++++++++++++++++++++++++++++ St E's Carotid Criteria 50-69% = PSV 180-230 and/or Ratio 2.0 - 4.0 >70% = PSV >230 and Ratio >4.0 or EDV >100 Stent Criteria >80% = PSV >340 and Ratio >4.0 Right side: The right bifurcation-internal carotid artery has severe, calcified, irregular plaque. Internal carotid maximum velocity is 370/59 cm/s, with a ratio of 13.1 . The common carotid artery has no plaque present. The external carotid artery has no plaque proximally. Vertebral artery flow is antegrade. No defined ulceration noted. Left side: The left bifurcation-internal carotid artery has mild, calcified plaque. Internal carotid maximum velocity is 146 cm/s , with a ratio of 2.53 . The common carotid artery has elevated velocity 149 cm/s plaque present. The external carotid artery has mild plaque proximally. Vertebral artery flow is antegrade. No defined ulceration noted. CONCLUSION: The right internal carotid artery shows string sign with possible distal disease. The left internal shows mild calcific disease. Bilateral vertebral arteries are antegrade bilaterally. ++++++++++++++++++++++++++++++++++++ MEASUREMENTS: ++++++++++++++++++++++++++++++++++++ DOPPLER Right Prox CCA Prox CCA PSV 46 cm/s Right Dist CCA Dist CCA PSV 28.3 cm/s Prox ICA Prox ICA PSV 22 cm/s Mid ICA Mid ICA PSV 370 cm/s Right Mid ICA Mid ICA EDV 60 cm/s Right Dist ICA Dist ICA PSV 15 cm/s Right Prox ECA Prox ECA PSV 90.8 cm/s Right Vertebral Vertebral PSV 103 cm/s Right ICA/CCA RATIO ICA/CCA RATIO P 13.1 Left Prox CCA Prox CCA PSV 110 cm/s Left Dist CCA Dist CCA PSV 57.8 cm/s Left Prox ICA Prox ICA PSV 103 cm/s Left Mid ICA Mid ICA PSV 146 cm/s Left Dist ICA Dist ICA PSV 86.7 cm/s Left Prox ECA Prox ECA PSV 94.4 cm/s Left Vertebral Vertebral PSV 106 cm/s Left ICA/CCA RATIO ICA/CCA RATIO P 2.53 Internal Carotid Artery Left Internal C 0 <Electronic Signature> 08/20/2024 09:30 PM Jeanmarie Medrano M.D. Christiano Betancourt MD [facility] Final Result * USE ECHOCARDIOGRAM W CON (08/18/2024 4:03 PM CDT) Anatomical Region Laterality Modality NA Echocardiogram 08/18/2024 3:08 PM CDT Narrative 08/18/2024 6:02 PM CDT Echocardiography Report Pat.Name: RAMÍREZ PERES Pat.ID: [id number] .Date: 08/18/2024 Exam Time: 3:08:00 PM Study Type:ECHO WITH CARDIAC DOPPLER COMP Height: 64 in Weight: 134 lb BSA: 1.65 m2 Age: 9 1950,74Y Sex: M BP: 173/87 Sonogrphr: SS RDCS Pat. Stat.:Inpatient Room: [facility] Reason for Study:R/O CVA Procedures: 2D, M-mode, Doppler, Color Flow, Definity was used to enhance endocardial definition. Intraveneous saline contrast was used to help determine presence of intracardiac shunting. Race: X ++++++++++++++++++++++++++++++++++++ SUMMARY: ++++++++++++++++++++++++++++++++++++ The left ventricular size is normal. The left ventricular systolic function is mild to moderately depressed. Estimated left ventricular ejection fraction is 45%. Left ventricular diastolic function is abnormal (grade 1). The left ventricular outflow tract size is normal. The right ventricular size is normal. Intraventricular septum is normal. The agitated saline injection showed no clear evidence of shunting into the left atrium, consistent with no patent foramen ovale. Trivial pericardial effusion, without tamponade physiology. Inferior vena cava is not assessable. Technically difficult exam due to patient position and restless during the exam. Trace aortic regurgitation. ++++++++++++++++++++++++++++++++++++ FINDINGS: ++++++++++++++++++++++++++++++++++++ LV: The left ventricular size is normal. The left ventricular systolic function is mild to moderately depressed. Estimated left ventricular ejection fraction is 45%. Left ventricular diastolic function is abnormal (grade 1). LVOT: The left ventricular outflow tract size is normal. RV: The right ventricular size is normal. IVS: Intraventricular septum is normal. LA: Left atrial size is normal. RA: Right atrial size is normal. IAS: The agitated saline injection showed no clear evidence of shunting into the left atrium, consistent with no patent foramen ovale. JORDIN: Trivial pericardial effusion, without tamponade physiology. AO: Normal aortic root. SVn: Inferior vena cava is not assessable. Other: Technically difficult exam due to patient position and restless during the exam. AV: Structurally normal aortic valve. The aortic valve is trileaflet. No evidence of aortic valve stenosis. Trace aortic regurgitation. MV: Structurally normal mitral valve. Trace mitral regurgitation. No evidence of mitral stenosis. PV: No evidence of pulmonic valve stenosis. No evidence of pulmonic regurgitation. Pulmonic valve not well visualized. TV: Structurally normal tricuspid valve. A trace of tricuspid regurgitation. No evidence of tricuspid valve stenosis. ++++++++++++++++++++++++++++++++++++ MEASUREMENTS: ++++++++++++++++++++++++++++++++++++ DOPPLER LVOT LVOTpkPG 2 mmHg LVOTmnPG 2 mmHg LVOTpkVel 78.2 cm/s (70-110)+ LVOT SV 45 ml LVOT TVI 14.3 cm AV Forward Flow AV TVI 20.8 cm AV pkPG 6 mmHg AV pkVel 120 cm/s (100-170)+ Area (TVI) 2.16 cm2 (3-5)* AV mnPG 3 mmHg Area (Jr) 2.05 cm2 (3-5)* MV Forward Flow MV mnPG 3 mmHg MV pkE 48 cm/s (60-130)* MV pkPG 7 mmHg MV pkA 125 cm/s MV E/A 0.4 PV Forward Flow PV TVI 23.9 cm PV mnVel 93.8 cm/s PV pkVel 146 cm/s (60-90)+* PV mnPG 5 mmHg PV pkPG 9 mmHg PV AC 83 msec TV Forward Flow TV E/A 0.8 TV pkA 58.3 cm/s TV pkE 46.7 cm/s Lat E' Lat e 4.97 cm/s Lat E/E' Lat E/e 9.7 Med E' Med e 5.44 cm/s Med E/E' Med E/e 8.8 Aortic Valve Aortic Valve Ar 1.31 Aortic Valve Ve 0.65 Lat MA LV Peak Pillai Ti 12.1 cm/s Left Ventricle 0.4 LV Pk Sys Tissu 11.5 cm/s Med MA LV Peak Pillai Ti 14.6 cm/s Left Ventricle 0.4 LV Pk Sys Tissu 7.77 cm/s PV Antegrade Flow Acceleration Sl 1355 cm/s2 2D Left Ventricle LVIDd 3.45 cm (3.6-5.2)* LngAxs 8.39 cm LVIDs 2.87 cm (2.3-3.9) LV ESV 45.1 ml LngAxd 7.54 cm LV ESV 64.4 ml LngAxd 8.53 cm LV EF 37.3 % LV EDV 72 ml LV EF 45.4 % LV EDV 118 ml LV SV 26.8 ml LVEDV BP 97.1 ml LV SV 53.6 ml LngAxs 6.53 cm LVPW LVPWd 0.823 cm Right Ventricle RVIDd 2.37 cm (2.6-4.3)* Right Ventricle 26.6 mm Right Ventricle 30.5 mm Right and Left 0.687 Major [place] 59.3 mm Ventricular Septum IVSd 1.54 cm Left Atrium LA a-p 2.6 cm (2.8-3.4)+* LA VOLBP 26.1 ml Aorta Ao Rtd 3.1 cm LVOT LVOT 2 cm LVOTArea 3.14 cm2 Ratios IVS LA Biplane LAVol I BP 15.8 ml/m2 Right Atrium Major [place] 38.1 mm Minor [place] 21.1 mm MMODE Aortic Valve AV sep 1.7 cm (1.5-2.6) TA Tricuspid Annul 12.3 mm <Electronic Signature> 08/18/2024 06:02 PM Vaishnavi Tai M.D. Procedure Note Vaishnavi Tai MD - 08/18/2024 Echocardiography Report Pat.Name: RAMÍREZ PERES Pat.ID: [id number] .Date: 08/18/2024 Exam Time: 3:08:00 PM Study Type:ECHO WITH CARDIAC DOPPLER COMP Height: 64 in Weight: 134 lb BSA: 1.65 m2 Age: 9 1950,74Y Sex: M BP: 173/87 Sonogrphr: SS [facility] Pat. Stat.:Inpatient Room: 422 Reason for Study:R/O CVA Procedures: 2D, M-mode, Doppler, Color Flow, Definity was used to enhance endocardial definition. Intraveneous saline contrast was used to help determine presence of intracardiac shunting. Race: X ++++++++++++++++++++++++++++++++++++ SUMMARY: ++++++++++++++++++++++++++++++++++++ The left ventricular size is normal. The left ventricular systolic function is mild to moderately depressed. Estimated left ventricular ejection fraction is 45%. Left ventricular diastolic function is abnormal (grade 1). The left ventricular outflow tract size is normal. The right ventricular size is normal. Intraventricular septum is normal. The agitated saline injection showed no clear evidence of shunting into the left atrium, consistent with no patent foramen ovale. Trivial pericardial effusion, without tamponade physiology. Inferior vena cava is not assessable. Technically difficult exam due to patient position and restless during the exam. Trace aortic regurgitation. ++++++++++++++++++++++++++++++++++++ FINDINGS: ++++++++++++++++++++++++++++++++++++ LV: The left ventricular size is normal. The left ventricular systolic function is mild to moderately depressed. Estimated left ventricular ejection fraction is 45%. Left ventricular diastolic function is abnormal (grade 1). LVOT: The left ventricular outflow tract size is normal. RV: The right ventricular size is normal. IVS: Intraventricular septum is normal. LA: Left atrial size is normal. RA: Right atrial size is normal. IAS: The agitated saline injection showed no clear evidence of shunting into the left atrium, consistent with no patent foramen ovale. JORDIN: Trivial pericardial effusion, without tamponade physiology. AO: Normal aortic root. SVn: Inferior vena cava is not assessable. Other: Technically difficult exam due to patient position and restless during the exam. AV: Structurally normal aortic valve. The aortic valve is trileaflet. No evidence of aortic valve stenosis. Trace aortic regurgitation. MV: Structurally normal mitral valve. Trace mitral regurgitation. No evidence of mitral stenosis. PV: No evidence of pulmonic valve stenosis. No evidence of pulmonic regurgitation. Pulmonic valve not well visualized. TV: Structurally normal tricuspid valve. A trace of tricuspid regurgitation. No evidence of tricuspid valve stenosis. ++++++++++++++++++++++++++++++++++++ MEASUREMENTS: ++++++++++++++++++++++++++++++++++++ DOPPLER LVOT LVOTpkPG 2 mmHg LVOTmnPG 2 mmHg LVOTpkVel 78.2 cm/s (70-110)+ LVOT SV 45 ml LVOT TVI 14.3 cm AV Forward Flow AV TVI 20.8 cm AV pkPG 6 mmHg AV pkVel 120 cm/s (100-170)+ Area (TVI) 2.16 cm2 (3-5)* AV mnPG 3 mmHg Area (Jr) 2.05 cm2 (3-5)* MV Forward Flow MV mnPG 3 mmHg MV pkE 48 cm/s (60-130)* MV pkPG 7 mmHg MV pkA 125 cm/s MV E/A 0.4 PV Forward Flow PV TVI 23.9 cm PV mnVel 93.8 cm/s PV pkVel 146 cm/s (60-90)+* PV mnPG 5 mmHg PV pkPG 9 mmHg PV AC 83 msec TV Forward Flow TV E/A 0.8 TV pkA 58.3 cm/s TV pkE 46.7 cm/s Lat E' Lat e 4.97 cm/s Lat E/E' Lat E/e 9.7 Med E' Med e 5.44 cm/s Med E/E' Med E/e 8.8 Aortic Valve Aortic Valve Ar 1.31 Aortic Valve Ve 0.65 Lat MA LV Peak Pillai Ti 12.1 cm/s Left Ventricle 0.4 LV Pk Sys Tissu 11.5 cm/s Med MA LV Peak Pillai Ti 14.6 cm/s Left Ventricle 0.4 LV Pk Sys Tissu 7.77 cm/s PV Antegrade Flow Acceleration Sl 1355 cm/s2 2D Left Ventricle LVIDd 3.45 cm (3.6-5.2)* LngAxs 8.39 cm LVIDs 2.87 cm (2.3-3.9) LV ESV 45.1 ml LngAxd 7.54 cm LV ESV 64.4 ml LngAxd 8.53 cm LV EF 37.3 % LV EDV 72 ml LV EF 45.4 % LV EDV 118 ml LV SV 26.8 ml LVEDV BP 97.1 ml LV SV 53.6 ml LngAxs 6.53 cm LVPW LVPWd 0.823 cm Right Ventricle RVIDd 2.37 cm (2.6-4.3)* Right Ventricle 26.6 mm Right Ventricle 30.5 mm Right and Left 0.687 Major [place] 59.3 mm Ventricular Septum IVSd 1.54 cm Left Atrium LA a-p 2.6 cm (2.8-3.4)+* LA VOLBP 26.1 ml Aorta Ao Rtd 3.1 cm LVOT LVOT 2 cm LVOTArea 3.14 cm2 Ratios IVS LA Biplane LAVol I BP 15.8 ml/m2 Right Atrium Major [place] 38.1 mm Minor [place] 21.1 mm MMODE Aortic Valve AV sep 1.7 cm (1.5-2.6) TA Tricuspid Annul 12.3 mm <Electronic Signature> 08/18/2024 06:02 PM Vaishnavi Tai M.D. us Nadege Vasquez APNP ECHO Final Res ult * (ABNORMAL) URINALYSIS (08/17/2024 9:25 PM CDT) SPECIMEN TYPE URINE STRAIGHT CATH 08/17/2024 9:28 PM CDT [facility] COLOR (U) LIGHT YELLOW 08/17/2024 9:53 PM CDT [facility] TRANSPARENCY CLEAR 08/17/2024 9:53 PM CDT [facility] SPECIFIC GRAVITY (U) 1.026 1.001 - 1.030 08/17/2024 9:53 PM CDT [facility] U PH 7.5 5.0 - 9.0 08/17/2024 9:53 PM CDT [facility] LEUKOCYTES (U) NEGATIVE NEGATIVE 08/17/2024 9:53 PM CDT [facility] NITRITES NEGATIVE NEGATIVE 08/17/2024 9:53 PM CDT [facility] PROTEIN RANDOM (U) 10 <30 MG/DL 08/17/2024 9:53 PM CDT [facility] GLUCOSE (U) 200(A) NORMAL MG/DL 08/17/2024 9:53 PM CDT [facility] KETONES MG/DL (U) TRACE(A) NEGATIVE MG/DL 08/17/2024 9:53 PM CDT [facility] Comment: Successful Call: LEIGH ANND called 08/17/2024 09:54 PM to [employer] A ([id number]/ALON PINEDA) by [id number]. Read Back: Yes UROBILINOGEN NORMAL NORMAL MG/DL 08/17/2024 9:53 PM CDT [facility] BILIRUBIN (U) NEGATIVE NEGATIVE MG/DL 08/17/2024 9:53 PM CDT [facility] BLOOD (U) 1+(A) NEGATIVE 08/17/2024 9:53 PM CDT [facility] WBC/HPF 2 <6 /HPF 08/17/2024 9:53 PM CDT [facility] RBC/HPF 6(H) <6 /HPF 08/17/2024 9:53 PM CDT [facility] URINE, STRAIGHT CATH 08/17/2024 9:25 PM CDT us Nadege Vasquez APNP URINE ORDERABLES Final Re sult [facility] [address] [place] [address], [place] [phone] * MRI BRAIN WO CON (08/17/2024 2:27 PM CDT) Anatomical Region Laterality Modality Head Magnetic Resonan ce 08/17/2024 3:00 PM CDT Impressions 08/17/2024 3:11 PM CDT IMPRESSION: Multifocal 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 Other chronic or nonurgent findings as described above. Referred By: Interpreted By: Erik Webster MD, 08/17/2024 3:00 PM Narrative 08/17/2024 3:11 PM [address]T [address] [address] INDICATION: Stroke EXAMINATION: MRI of the brain without contrast. TECHNIQUE: Multisequence multiplanar unenhanced imaging. DATE/TIME: 08/17/2024 2:07 PM COMPARISON: CT, CTA, same date. FINDINGS: There are multiple small patchy foci of acute infarct in the right cerebral hemisphere involving the right occipital lobe, posterior temporal lobe and frontal lobe periventricular white matter. Distribution suggests involvement of the MCA watershed territories with the [employer] and CHRISTAL. No other acute infarct identified. Multiple old infarcts in the right parietal lobe, right occipital lobe in both frontal lobes There is no evidence of intracranial mass lesion, mass effect, or midline shift. There are multiple bilateral foci of periventricular and deep white matter T2 and FLAIR hyperintensity, likely due to chronic small vessel ischemic disease. There is mild to moderate volume loss with enlargement of the ventricles and hemispheric sulci. Abnormal right ICA flow void likely related to the ICA abnormality seen on today's CTA. No abnormal extra-axial collections identified. Gradient images reveal no evidence of hemorrhage. The craniocervical junction, sellar content, and pineal region appear unremarkable. Mastoid air cells, paranasal sinuses, and images of the orbits are grossly unremarkable. Please note that dedicated T2-weighted imaging was apparently not performed. Procedure Note Erik Webster MD - 08/17/[address] [address] INDICATION: Stroke EXAMINATION: MRI of the brain without contrast. TECHNIQUE: Multisequence multiplanar unenhanced imaging. DATE/TIME: 08/17/2024 2:07 PM COMPARISON: CT, CTA, same date. FINDINGS: There are multiple small patchy foci of acute infarct in the rightcerebral hemisphere involving the right occipital lobe, posterior temporallobe and frontal lobe periventricular white matter. Distribution suggestsinvolvement of the MCA watershed territories with the [employer] and CHRISTAL. No other acute infarct identified. Multiple old infarcts in the rightparietal lobe, right occipital lobe in both frontal lobes There is no evidence of intracranial mass lesion, mass effect, or midlineshift. There are multiple bilateral foci of periventricular and deep whitematter T2 and FLAIR hyperintensity, likely due to chronic small vesselischemic disease. There is mild to moderate volume loss with enlargementof the ventricles and hemispheric sulci. Abnormal right ICA flow voidlikely related to the ICA abnormality seen on today's CTA. No abnormalextra-axial collections identified. Gradient images reveal no evidence ofhemorrhage. The craniocervical junction, sellar content, and pineal regionappear unremarkable. Mastoid air cells, paranasal sinuses, and images ofthe orbits are grossly unremarkable. Please note that dedicatedT2-weighted imaging was apparently not performed. 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 Other chronic or nonurgent findings as described above. Referred By: Interpreted By: Erik Webster MD, 08/17/2024 3:00 PM us Nadege Vasquez JUAN JOSE MRI Final Res ult * EKG Reading (08/17/2024 10:03 AM CDT) Dennis Neri MD - 08/17/2024 10:03 AM CDT Dennis Todd MD 08/17/2024 11:13 AM EKG Reading Date/Time: 08/17/2024 10:03 AM Performed by: Dennis Todd MD Authorized by: Dennis Todd MD Interpreted by ED physician Comparison: compared with previous ECG Rhythm: sinus rhythm Rate: normal BPM: 70 Comments: Normal sinus rhythm heart rate 70. Normal axis left bundle branch block normal interval nonspecific ST-T wave change. Compared to EKG 06/22/2023 Rhythm strip ordered interpreted 935 Normal sinus rhythm. Heart rate 70. No ectopy us Dennis Todd MD [facility] Final Result * CT STROKE(HEAD WO) (08/17/2024 9:55 AM CDT) Anatomical Region Laterality Modality Head Computed Tomogra phy 08/17/2024 9:59 AM CDT Impressions 08/17/2024 10:05 AM CDT IMPRESSION: There is a focal area of hypoattenuation in the right occipital lobe posteriorly. This may relate to an area of ischemic change. This may be acute to subacute. This is new as compared to June 22, 2023. Diffuse white matter hypoattenuating areas suspected due to chronic small vessel ischemic disease. No midline shift. Verbal preliminary given to Dr. Todd at 10:05 AM. Referred By: Interpreted By: Salvador Pretty MD, 08/17/2024 9:59 AM Narrative 08/17/2024 10:05 AM CDT [address] [address] Procedure(s): CT STROKE(HEAD WO) Date of service: 08/17/2024 9:47 AM Provided clinical information: 74 years, Male, Altered mental status Unable to wake up since yesterday 4:00 PM. Procedure and materials: Helical images of the head are obtained from the base of skull to the vertex. Comparison studies: June 22, 2023. Findings: No depressed fracture of the calvarium. Visualized paranasal sinuses are clear. Diffuse senescent changes of the brain are present. Encephalomalacia is present in the region of the right posterior parietal lobe. This is unchanged compared to prior examination likely relates to prior ischemic changes. Periventricular white matter hypoattenuating areas are present bilaterally, left greater than right. This is likely due to chronic small vessel ischemic disease. There is an area of hyperattenuation present in the right occipital lobe. This appears to be slightly increased or new as compared back to the prior examination. This may relate to an area of acute or subacute ischemic change. MRI recommended. Procedure Note Salvador Pretty MD - 08/17/2024 [address], [place] [address] Procedure(s): CT STROKE(HEAD WO) Date of service: 08/17/2024 9:47 AM Provided clinical information: 74 years, Male, Altered mentalstatus Unable to wake up since yesterday 4:00 PM. Procedure and materials: Helical images of the head are obtained from thebase of skull to the vertex. Comparison studies: June 22, 2023. Findings: No depressed fracture of the calvarium. Visualized paranasal sinuses areclear. Diffuse senescent changes of the brain are present. Encephalomalacia is present in the region of the right posterior parietallobe. This is unchanged compared to prior examination likely relates toprior ischemic changes. Periventricular white matter hypoattenuating areasare present bilaterally, left greater than right. This is likely due tochronic small vessel ischemic disease. There is an area of hyperattenuation present in the right occipital lobe.This appears to be slightly increased or new as compared back to the priorexamination. This may relate to an area of acute or subacute ischemicchange. MRI recommended. IMPRESSION: There is a focal area of hypoattenuation in the right occipital lobeposteriorly. This may relate to an area of ischemic change. This may beacute to subacute. This is new as compared to June 22, 2023. Diffuse white matter hypoattenuating areas suspected due to chronic smallvessel ischemic disease. No midline shift. Verbal preliminary given to Dr. Todd at 10:05 AM. Referred By: Interpreted By: Salvador Pretty MD, 08/17/2024 9:59 AM Dennis Todd MD CT Final Result * CTA HEAD+NECK (08/17/2024 9:55 AM CDT) Anatomical Region Laterality Modality Head, Neck Computed Tomogra phy 08/17/2024 10:2 1 AM CDT Impressions 08/17/2024 10:35 AM CDT IMPRESSION: 1. 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 Reconstitution of the vessel more distally with decreased volume and opacity from the contralateral side. 2. Short segment high-grade stenosis near origin of right MCA. 3. Short segment moderate to high-grade stenosis of origin of dominant right MCA M2 branch. 4. High-grade short to moderate length stenosis of distal portion of left MCA M1 segment. 5. Moderate length moderate stenosis of dominant left MCA M2 branch. 6. Multifocal mild to moderate stenoses of bilateral MCA vasculature distally. 7. Mild to moderate stenosis of distal left vertebral artery just proximal to origin of basilar artery. 8. Asymmetric diminished prominence of left [employer] territory vasculature with no focal high-grade stenosis appreciated. 9. Approximately 50% stenosis at origin of left ICA. Up to 60% stenosis of left ICA 9 mm above the origin. 10. Moderate stenosis at origin of left ECA. Referred By: Interpreted By: Dennis Hutson MD, 08/17/2024 10:21 AM Narrative 08/17/2024 10:35 AM CDT [address] [address] Examination: CTA of the head and neck Exam Date/Time: 08/17/2024 9:47 AM Reason For Exam: Altered mental status Unable to wake up since yesterday at 4:00 PM. Comparison: No prior CTA head or neck Technique: CT angiography of the head and neck was performed after intravenous injection of 80 cc Isovue-370. Additional 3-D reconstructions and postprocessing were performed independently by the radiologist on a separate dedicated 3-D workstation. A dose lowering technique was used for this procedure, which may include, but is not limited to, dose reduction technique, automated exposure control, iterative reconstruction, ALARA (As Low As Reasonably Achievable), or Image Gently techniques. NASCET guidelines utilized for ICA stenosis grading. Findings: CTA HEAD: There is asymmetric decreased opacification of the right internal carotid artery at level of skull base entering the intracranial circulation. Prominent calcifications of the bilateral cavernous portions of carotid arteries. Mild to moderate stenosis bilaterally. Short segment high-grade stenosis near origin of right MCA. See screen shot. Short segment moderate to high-grade stenosis of origin of dominant right MCA M2 branch. See additional screen shot. Multifocal mild to moderate stenoses in the more distal right MCA vasculature which may be secondary to incomplete opacification and blood flow from the right ICA. There is high-grade short to moderate length stenosis of the distal portion of left MCA M1 segment. See screen shot. There is a grade moderate length stenosis of dominant left MCA M2 branch. See screen shot. Multiple short segment low-grade stenoses of left MCA vasculature distally. Anterior cerebral arteries grossly normal in caliber throughout. There is left vertebral artery dominance. Right vertebral artery terminates in a PICA branch. The distal left vertebral artery shows mild to moderate stenosis of moderate length just proximal to origin of basilar artery. Asymmetric diminished prominence of left [employer] territory noted with no focal high- grade stenosis appreciated. CTA neck: Left aortic arch. Mild atherosclerotic disease in the arch. Origins of the great vessels from the arch are widely patent. Visualized portion of bowel subclavian arteries and brachiocephalic artery are patent. Asymmetric probable congenital prominence of the left vertebral artery. Vertebral arteries are otherwise normal in caliber throughout their cervical courses with no significant stenosis or occlusion. There is complete occlusion of the right ICA from 8 to 16 mm above its origin. Straightening sign at the origin noted. Reconstitution of the vessel more distally is noted with decreased volume and opacity from the contralateral side. The right common carotid artery appears normal in caliber throughout. Right external carotid artery is patent. Left common carotid artery is patent. Moderate stenosis at the origin of the left ECA. Mixed hard and soft plaque in the proximal left internal carotid artery. Approximately 50% stenosis at its origin. Up to 60% stenosis of the left ICA 9 mm above the origin. Procedure Note Dennis Hutson MD - 08/17/[address] [address] Examination: CTA of the head and neck Exam Date/Time: 08/17/2024 9:47 AM Reason For Exam: Altered mental status Unable to wake up since yesterday at 4:00 PM. Comparison: No prior CTA head or neck Technique: CT angiography of the head and neck was performed afterintravenous injection of 80 cc Isovue-370. Additional 3-D reconstructionsand postprocessing were performed independently by the radiologist on aseparate dedicated 3-D workstation. A dose lowering technique was used forthis procedure, which may include, but is not limited to, dose reductiontechnique, automated exposure control, iterative reconstruction, ALARA (AsLow As Reasonably Achievable), or Image Gently techniques. NASCETguidelines utilized for ICA stenosis grading. Findings: CTA HEAD: There is asymmetric decreased opacification of the rightinternal carotid artery at level of skull base entering the intracranialcirculation. Prominent calcifications of the bilateral cavernous portionsof carotid arteries. Mild to moderate stenosis bilaterally. Shortsegment high-grade stenosis near origin of right MCA. See screen shot.Short segment moderate to high-grade stenosis of origin of dominant rightMCA M2 branch. See additional screen shot. Multifocal mild to moderatestenoses in the more distal right MCA vasculature which may be secondaryto incomplete opacification and blood flow from the right ICA. There ishigh-grade short to moderate length stenosis of the distal portion of leftMCA M1 segment. See screen shot. There is a grade moderate lengthstenosis of dominant left MCA M2 branch. See screen shot. Multiple shortsegment low-grade stenoses of left MCA vasculature distally. Anteriorcerebral arteries grossly normal in caliber throughout. There is leftvertebral artery dominance. Right vertebral artery terminates in a PICAbranch. The distal left vertebral artery shows mild to moderate stenosisof moderate length just proximal to origin of basilar artery. Asymmetricdiminished prominence of left [employer] territory noted with no focal high-gradestenosis appreciated. CTA neck: Left aortic arch. Mild atherosclerotic disease in the arch.Origins of the great vessels from the arch are widely patent. Visualizedportion of bowel subclavian arteries and brachiocephalic artery arepatent. Asymmetric probable congenital prominence of the left vertebralartery. Vertebral arteries are otherwise normal in caliber throughouttheir cervical courses with no significant stenosis or occlusion. Thereis complete occlusion of the right ICA from 8 to 16 mm above its origin.Straightening sign at the origin noted. Reconstitution of the vessel moredistally is noted with decreased volume and opacity from the contralateralside. The right common carotid artery appears normal in caliberthroughout. Right external carotid artery is patent. Left common carotidartery is patent. Moderate stenosis at the origin of the left ECA. Mixedhard and soft plaque in the proximal left internal carotid artery.Approximately 50% stenosis at its origin. Up to 60% stenosis of the leftICA 9 mm above the origin. IMPRESSION: 1. 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 2. Short segment high-grade stenosis near origin of right MCA. 3. Short segment moderate to high-grade stenosis of origin of dominantright MCA M2 branch. 4. High-grade short to moderate length stenosis of distal portion of leftMCA M1 segment. 5. Moderate length moderate stenosis of dominant left MCA M2 branch. 6. Multifocal mild to moderate stenoses of bilateral MCA vasculaturedistally. 7. Mild to moderate stenosis of distal left vertebral artery justproximal to origin of basilar artery. 8. Asymmetric diminished prominence of left [employer] territory vasculaturewith no focal high-grade stenosis appreciated. 9. Approximately 50% stenosis at origin of left ICA. Up to 60% stenosisof left ICA 9 mm above the origin. 10. Moderate stenosis at origin of left ECA. Referred By: Interpreted By: Dennis Hutson MD, 08/17/2024 10:21 AM Dennis Todd MD CT Final Result * (ABNORMAL) HEMOGLOBIN, GLYCATED (08/17/2024 9:39 AM CDT) HGB A1C 7.8(H) <5.7 % 08/17/2024 2:04 PM CDT [facility] Comment: ADA GUIDELINES 2010 5.7 TO 6.4% INCREASED RISK OF DIABETES > OR = 6.5% CONSISTENT WITH DIABETES ESTIMATED AVG GLUCOSE 177 mg/dL 08/17/2024 2:04 PM CDT [facility] 08/17/2024 9:39 AM CDT us Nadege Vasquez NP LABORATORY Final Res ult [facility] [address] [place] [address], * (ABNORMAL) COMPREHENSIVE METABOLIC PANEL (08/17/2024 9:39 AM CDT) [facility] GLUCOSE 240(H) 70 - 99 MG/DL 08/17/2024 10:33 AM CDT [facility] BUN 23(H) 7 - 18 MG/DL 08/17/2024 10:33 AM CDT [facility] CREATININE S/P/B 1.44(H) 0.7 - 1.3 MG/DL 08/17/2024 10:33 AM CDT [facility] SODIUM S/P/B 138 136 - 145 MMOL/L 08/17/2024 10:33 AM CDT [facility] POTASSIUM S/P/B 3.6 3.5 - 5.1 MMOL/L 08/17/2024 10:33 AM CDT [facility] CHLORIDE S/P/B 105 97 - 115 MMOL/L 08/17/2024 10:33 AM CDT [facility] CO2 26.9 21 - 32 MMOL/L 08/17/2024 10:33 AM CDT [facility] CALCIUM S/P/B 9.3 8.5 - 10.1 MG/DL 08/17/2024 10:33 AM CDT [facility] BILIRUBIN TOTAL S/P/B 0.8 0.2 - 1.2 MG/DL 08/17/2024 10:33 AM CDT [facility] Comment: THIS ASSAY IS NOT RECOMMENDED FOR PATIENTS UNDERGOING TREATMENT WITH ELTROMBOPAG DUE TO THE POTENTIAL FOR FALSELY ELEVATED RESULTS. TOTAL PROTEIN S/P/B 7.7 6.4 - 8.2 G/DL 08/17/2024 10:33 AM CDT [facility] ALBUMIN S/P/B 3.3(L) 3.4 - 5.0 G/DL 08/17/2024 10:33 AM CDT [facility] AST 18 15 - 37 U/L 08/17/2024 10:33 AM CDT [facility] ALT 23 16 - 60 U/L 08/17/2024 10:33 AM CDT [facility] ALKALINE PHOSPHATASE S/P/B 101 50 - 136 U/L 08/17/2024 10:33 AM CDT [facility] ANION GAP 6.1 2 - 10 MMOL/L 08/17/2024 10:33 AM T [facility] BUN CREATININE RATIO 16.0 6 - 26 08/17/2024 10:33 AM T [facility] A/G RATIO 0.8(L) 1.0 - 2.0 RATIO 08/17/2024 10:33 AM T [facility] GFR ESTIMATE 50(L) >90 ML/MIN/1.7 3 M2 08/17/2024 10:33 AM T [facility] Comment: NOTE: eGFR is not calculated for patients <18 years of age or gender unknown. This is an estimated GFR calculation using the new CKD EPI creatinine equation without race and so does not require a correction factor for race. This estimated GFR should not be used for calculating drug doses. 08/17/2024 9:39 AM CDT Dennis Todd MD LABORATORY Final Result [facility] [address] [place] [address], [place] [phone] * LIPID PANEL (08/17/2024 9:39 AM CDT) CHOLESTEROL 115 <200 MG/DL 08/17/2024 12:55 PM CDT [facility] TRIGLYCERIDES 120 <150 MG/DL 08/17/2024 12:55 PM CDT [facility] HDL 43 >40.0 MG/DL 08/17/2024 12:55 PM CDT [facility] LDL (CALCULATED) 48 <100 MG/DL 08/18/19 12:55 PM CDT [facility] NON HDL CHOLESTEROL 72 <130 MG/DL 08/17 12:55 PM CDT [facility] CHOL/HDL RATIO 2.7 0.0 - 4.5 08/17/2024 12:55 PM CDT [facility] VLDL CALCULATION 24 5 - 55 MG/DL 08/17/2024 12:55 PM CDT [facility] LIPID INTERPRETATION 08/17/2024 12:55 PM CDT [facility] Comment: [facility] CONCENSUS REPORT RECOMMENDATIONS: ADULT CHILD LOW RISK: CHOLESTEROL <200 <170 TRIGLYCERIDE <150 --- HDL >=60 --- LDL <100 <110 BORDERLINE: CHOLESTEROL 200-239 170-199 TRIGLYCERIDE 150-199 --- HDL 40-59 --- LDL 100-159 110-129 HIGH RISK: CHOLESTEROL >=240 >=200 TRIGLYCERIDE >=200 --- HDL <40 --- LDL >=160 >=130 08/17/2024 9:39 AM CDT us Nadege INGRAM LABORATORY Final Res ult [facility] [address] [place] [address], [place] [phone] * MAGNESIUM (08/17/2024 9:39 AM CDT) MAGNESIUM 2.1 1.8 - 2.4 MG/DL 08/17/2024 12:55 PM CDT [facility] 08/17/2024 9:39 AM CDT Nadege Vasquez APNP LABORATORY Final Res ult [facility] [address] [place] [address], * CT GENERIC (08/16/2024) Only the most recent of6 resultswithin the time period is included. Anatomical Region Laterality Modality Other 08/16/2024 [facility] Scanned SCANNING Final Resu lt * ECHO GENERIC (SCAN ORDER) (08/14/2024) Anatomical Region Laterality Modality Other 08/14/2024 [facility] Scanned SCANNING Final Resu lt * VASCULAR LAB GENERIC (SCAN ORDER) (08/13/2024) 08/13/2024 [facility] Scanned SCANNING Final Resu lt * MRI GENERIC (08/12/2024) Anatomical Region Laterality Modality Other 08/12/2024 us [facility] Scanned SCANNING Final Resu lt * IMAGE GENERIC (08/12/2024) Only the most recent of8 resultswithin the time period is included. Anatomical Region Laterality Modality Other 08/12/2024 us [facility] Scanned SCANNING Final Resu lt * NUCLEAR WASTE PROCESS OPERATOR (07/18/2024) Anatomical Region Laterality Modality Other 07/18/2024 [facility] Scanned SCANNING Final Resu lt * NUCLEAR WASTE PROCESS OPERATOR (06/26/2024) Anatomical Region Laterality Modality Other 06/26/2024 [facility] Scanned SCANNING Final Resu lt * ULTRASOUND GENERIC (SCAN ORDER) (06/26/2024) Anatomical Region Laterality Modality Other 06/26/2024 Result [facility] Scanned SCANNING Final Resu lt * ECHO GENERIC (SCAN ORDER) (06/24/2024) Anatomical Region Laterality Modality Other 06/24/2024 [facility] Scanned SCANNING Final Resu lt * DIABETIC RETINOPATHY EXAM (NEGATIVE) (04/15/2024) Result [facility] Scanned SCANNING Final Resu lt [facility] from Last 3 Months or Most Recently Relevant to Health Maintenance Additional Health Concerns 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 09/21/2020 ESBL - Extended Spectrum Bet a-lactamase Comment:11/24/2020 +ESBL Rectal culture 11/26/2020 11/26/2020 Insurance LOVE Advance Directives * Full Code (Latest Code Status on File) Date Activated Date Inactivated Comments 08/22/2024 2:45 PM 08/27/2024 2:35 PM * Full Code Date Activated Date Inactivated Comments 07/23/2024 1:11 PM 08/17/2024 9:22 AM * Full Code Date Activated Date Inactivated Comments 07/02/2024 4:10 PM 07/23/2024 1:11 PM * Full Code Date Activated Date Inactivated Comments 04/15/2024 8:50 AM 07/02/2024 4:10 PM * Full Code Date Activated Date Inactivated Comments 04/09/2024 7:54 PM 04/13/2024 3:34 PM Care Teams Envelope Addresser Relationship Specialty Start Date End Date Donavon Connor MD [address] [place] [id number] PCP - General FAMILY PRACTICE 04/13/20
--- OUTSIDE RECORDS SUMMARY | 2024-08-28 11:49 | XMS_ITS | Clinical Summary ---
Author Organization [facility] Address [address] [place] [address] Care Team Providers Care Cross Tie Cutter Name Role Phone Unavailable Primary Care Provider [...]
--- OUTSIDE RECORDS SUMMARY | 2024-08-28 11:49 | XMS_ITS | Clinical Summary ---
Author Organization [facility] Address [address] [place] [address] Care Team Providers Care Gambreler Name Role Phone No, Physician Primary Care Provider [phone] Bunny Ramires MD Unavailable [phone] Allergies Active Allergy Reactions Criticality Noted [...] Cardiomyopathy, ischemic 07/22/2024 Coronary artery disease involving [place] heart 0 07/15/2024 Constipation, unspecified constipation type 08/2022 Assessment & Plan (07/31/2022 11:22 AM CUSTOMER PRICING MANAGER): No symptoms or signs of mechanical [...] 07/30/2022 Assessment & Plan (07/31/2022 11:21 AM CUSTOMER PRICING MANAGER): On metformin 500 mg twice daily [...] 07/30/2022 Assessment & Plan (07/31/2022 10:46 AM CUSTOMER PRICING MANAGER): Not on any treatment at home. BP well controlled, CTM and add medications if needed Benign prostatic hyperplasia without lower urinary tract symptoms 07/30/2022 Assessment & Plan (07/31/2022 10:44 AM CUSTOMER PRICING MANAGER): Patient was recently started on Flomax and finasteride at OSH. Patients son reported patient was experiencing difficulty urinating - continue home meds and pcp follow up for further management Stage 3a chronic kidney disease 07/30/2022 Assessment & Plan (07/31/2022 10:48 AM CUSTOMER PRICING MANAGER): Creatinine is 1.48, up from the most recent of 1.2- 1.3 in 2021 and 2016 - improved to 1.37 on am labs - CTM and follow up outpatient Encounters Date Type Department Care Team Description 07/29/2024 Orders Only [facility] Cardiology [address] [place] [id number] Gerhard Ratliff MD 07/15/2024 Telephone [facility] Medical [facility] Cardiology [address] [place] [address] Gina Link MD 07/08/2024 2:00 PM CUSTOMER PRICING MANAGER Office Visit [facility] Medical [facility] Cardiology [address] [place] [address] Gina Link MD Hypertension associated with diabetes (HCC) (Primary Dx); Coronary artery disease involving [place] coronary artery of [place] heart without angina pectoris; Cardiomyopathy, ischemic 07/02/2024 Orders Only [facility] Cardiology [address] [place] [address] Gerhard Ratliff MD 06/29/2024 Orders Only [facility] Health Information Management [address] [place] [id number] Allegra Shin MD 06/26/2024 Orders Only [facility] Medical Group Cardiology [address] [place] [address] Peyton De Guzman MD from Last 3 Months Surgical History Surgery Date Site/Laterality Comments [place] PERQ NL/PL LITHOTRP COMPLEX >2 CM ANGIOGRAPHER LOCATIONS Percutaneous Lithotomy For Stone Over 2cm. [...] on file Legal Sex Male 5:44 AM CUSTOMER PRICING MANAGER Gender Identity Not on file Sexual Orientation Not on file Obstetrics History Last Filed Vital Signs Vital Sign Reading Time Taken Comments Blood Pressure 116/60 07/08/2024 1:05 PM CUSTOMER PRICING MANAGER Pulse 88 07/08/2024 1:05 PM CUSTOMER PRICING MANAGER Temperature 36.5 C (97.7 F) 07/31/2022 8:00 AM CUSTOMER PRICING MANAGER Respiratory Rate 16 07/31/2022 7:55 AM CUSTOMER PRICING MANAGER Oxygen Saturation 99% 07/08/2024 1:05 PM CUSTOMER PRICING MANAGER Inhaled Oxygen Concentration - - Weight 67.9 kg (149 lb 9.6 oz) 07/08/2024 1:05 P M CUSTOMER PRICING MANAGER Height 162.6 cm (5' 4 ) 07/08/2024 1:05 PM CUSTOMER PRICING MANAGER Body Mass Index 25.68 07/08/2024 1:05 PM CUSTOMER PRICING MANAGER Plan of Treatment Health Maintenance Due [...] CARDIOLOGY DOCUMENT SCAN Routine 07/19/2024 3:34 PM CUSTOMER PRICING MANAGER CARDIOLOGY DOCUMENT SCAN Routine 07/18/2024 2:33 PM CUSTOMER PRICING MANAGER CARDIOLOGY DOCUMENT SCAN Routine 07/18/2024 2:12 PM CUSTOMER PRICING MANAGER CARDIOLOGY DOCUMENT SCAN Routine 07/01/2024 3:53 PM CUSTOMER PRICING MANAGER CARDIOLOGY DOCUMENT SCAN Routine 06/30/2024 3:49 PM CUSTOMER PRICING MANAGER CARDIOLOGY DOCUMENT SCAN Routine 06/29/2024 3:44 PM CUSTOMER PRICING MANAGER SCAN - RADIOLOGY/IMAGING 06/29/2024 CARDIOLOGY DOCUMENT SCAN Routine 06/28/2024 3:37 PM CUSTOMER PRICING MANAGER CARDIOLOGY DOCUMENT SCAN Routine 06/27/2024 3:32 PM CUSTOMER PRICING MANAGER CARDIOLOGY DOCUMENT SCAN Routine 06/26/2024 3:20 PM CUSTOMER PRICING MANAGER CARDIOLOGY DOCUMENT SCAN Routine 06/24/2024 3:16 PM CUSTOMER PRICING MANAGER CARDIOLOGY DOCUMENT SCAN Routine 06/23/2024 3:10 PM CUSTOMER PRICING MANAGER CARDIOLOGY DOCUMENT SCAN Routine 06/22/2024 3:04 PM CUSTOMER PRICING MANAGER CARDIOLOGY DOCUMENT SCAN Routine 06/22/2024 3:03 PM CUSTOMER PRICING MANAGER CARDIOLOGY DOCUMENT SCAN Routine 06/22/2024 3:00 PM CUSTOMER PRICING MANAGER EGFR Routine 07/31/2022 5:30 AM CUSTOMER PRICING MANAGER HEMOGLOBIN A1C Routine 07/30/2022 10:23 PM CUSTOMER PRICING MANAGER LIPID PANEL Routine 07/30/2022 10:23 PM CUSTOMER PRICING MANAGER from Last 3 Months or Most Recently Relevant to Health Maintenance Results * Cardiology Document Scan (07/19/2024 3:34 PM CUSTOMER PRICING MANAGER) Anatomical Region Laterality Modality Other Result David Shin MD [facility] PRO CEDURES Final Result * Cardiology Document Scan (07/18/2024 2:33 PM CUSTOMER PRICING MANAGER) Anatomical Region Laterality Modality Other Result David Ratliff MD [facility] PROCEDURES F inal Result * Cardiology Document Scan (07/18/2024 2:12 PM CUSTOMER PRICING MANAGER) Anatomical Region Laterality Modality Other Result David Ratliff MD [facility] CARDIAC SERVICES PROCEDURES F inal Result * Cardiology Document Scan (07/01/2024 3:53 PM CUSTOMER PRICING MANAGER) Anatomical Region Laterality Modality Other Result David Ratliff MD [facility] C[facility] PROCEDURES F inal Result * Cardiology Document Scan (06/30/2024 3:49 PM CUSTOMER PRICING MANAGER) Anatomical Region Laterality Modality Other Result David Allegra Shin MD [facility] PRO CEDURES Final Result * Cardiology Document Scan (06/29/2024 3:44 PM CUSTOMER PRICING MANAGER) Anatomical Region Laterality Modality Other Result David Allegra Shin MD [facility] PRO CEDURES Final Result * SCAN - RADIOLOGY/IMAGING (06/29/2024) Anatomical Region Laterality Modality Other Result David Shin MD Final R esult * Cardiology Document Scan (06/28/2024 3:37 PM CUSTOMER PRICING MANAGER) Anatomical Region Laterality Modality Other Result David Allegra Shin MD [facility] PRO CEDURES Final Result * Cardiology Document Scan (06/27/2024 3:32 PM CUSTOMER PRICING MANAGER) Anatomical Region Laterality Modality Other Gerhard Ratliff MD [facility] C[facility] PROCEDURES F inal Result * Cardiology Document Scan (06/26/2024 3:20 PM CUSTOMER PRICING MANAGER) Anatomical Region Laterality Modality Other Allegra Shin MD [facility] PRO CEDURES Final Result * Cardiology Document Scan (06/24/2024 3:16 PM CUSTOMER PRICING MANAGER) Anatomical Region Laterality Modality Other Allegra Shin MD [facility] PRO CEDURES Final Result * Cardiology Document Scan (06/23/2024 3:10 PM CUSTOMER PRICING MANAGER) Anatomical Region Laterality Modality Other Result [facility] us Peyton De Guzman MD [facility] CARDIAC SERVICES PROCEDU RES Final Result * Cardiology Document Scan (06/22/2024 3:04 PM CUSTOMER PRICING MANAGER) Anatomical Region Laterality Modality Other us Peyton De Guzman MD CV CARDIAC SERVICES PROCEDU RES Final Result * Cardiology Document Scan (06/22/2024 3:03 PM CUSTOMER PRICING MANAGER) Anatomical Region Laterality Modality Other Result [facility] us Peyton De Guzman MD [facility] CARDIAC SERVICES PROCEDU RES Final Result * Cardiology Document Scan (06/22/2024 3:00 PM CUSTOMER PRICING MANAGER) Anatomical Region Laterality Modality Other us Peyton De Guzman MD [facility] C[facility] PROCEDU RES Final Result * (ABNORMAL) eGFR (07/31/2022 5:30 AM CUSTOMER PRICING MANAGER) [facility] eGFR 54(L) 90 - 130 mL/min/1. 73 m2 [facility] Comment: Interpretive Data Reference Interval Normal >/= [...] last reviewed 2021. Blood 07/31/2022 5:30 AM CUSTOMER PRICING MANAGER 07/31/2022 5:51 AM CUSTOMER PRICING MANAGER Lizabeth Strong MD LAB BLOOD ORDERABLES Fin al Result Performing Organization Address [facility] de Phone Number [facility] [place] [address] * (ABNORMAL) Hemoglobin A1c (07/30/2022 10:23 PM CUSTOMER PRICING MANAGER) Hgb A1C 10.7(H) 4.0 - 5.6 % [facility] Estimated Average Glucose 260 mg/dL [facility] Comment: The ADA recommends reporting an estimated Average Glucose (eAG) with all Hemoglobin A1c results using the equation derived from a study of 507 normal and diabetic adults. Minority populations were underrepresented and children were not included. (Diabetes Care 2020; 43(S1): S66-S76). The eAG is not equivalent to a fasting glucose. Blood 07/30/2022 10:2 3 PM CUSTOMER PRICING MANAGER 07/30/2022 10:39 PM CUSTOMER PRICING MANAGER Lizabeth Strong MD LAB BLOOD ORDERABLES Fin al Result Performing Organization Address City/[facility]/ZIP Co de Phone Number [facility] [place] [address] * (ABNORMAL) Lipid panel (07/30/2022 10:23 PM CUSTOMER PRICING MANAGER) Cholesterol 167 30 - 199 mg/dL [facility] [...] revised on 2018. Triglycerides 155(H) <=149 mg/dL [facility] [...] revised on 2018. HDL 43 >=40 mg/dL [facility] Comment: Interpretive Data Ages < or [...] on 2018. LDL, calculated 93 <=129 mg/dL [facility] Comment: Interpretive Data Ages < or [...] revised on 2018. Non-HDL Cholesterol 124 mg/dL [facility] [...] last revised on 2018. Chol/HDL ratio [address] [facility] Blood 07/30/2022 10:2 3 PM CUSTOMER PRICING MANAGER 07/30/2022 10:39 PM CUSTOMER PRICING MANAGER Lizabeth Strong MD LAB BLOOD ORDERABLES Fin al Result [facility] [place] [address] from Last 3 Months or Most Recently Relevant to Health Maintenance Insurance [facility] Advance Directives For more information, please contact: [phone] * Full Code (Latest Code Status on File) Date Activated Date Inactivated Comments 07/30/2022 9:33 PM 07/31/2022 6:01 PM Care Teams Gambreler Relationship Specialty Start Date End Date No, Physician PCP - General 07/30/22 Bunny Ramires MD 07/30/22
--- OUTSIDE RECORDS SUMMARY | 2024-08-28 11:50 | XMS_ITS | Encounter Summary ---
Author Organization [facility] Address Formerly [facility], [facility] [place] [address] Care Team Providers Care Platform Consultant Name Role Phone Donavon Connor MD Primary Care Provider [phone] Reason for Referral * (Routine) - Canceled Specialty Diagnoses / Procedures Referred By Contac t Referred To Contact Procedures BISCUIT MAKER eval and treat [facility] [place] [address] Phone: tel: Referral ID Status Reason Start Date Expiration Date V isits Requested Visits Authorized [id number] Canceled 08/24/2024 08/24/2025 1 1 * Imaging (Urgent) - New Request Specialty Diagnoses / Procedures Referred By Contac t Referred To Contact RADIOLOGY Diagnoses CVA (cerebral vascular accident) ([facility]) Procedures [facility] GD INTRAOPERATIVE Jeanmarie Padgett MD Three [facility]. [facility] [address] [place] [address] Phone: tel: fax: Referral ID Status Reason Start Date Expiration Date V isits Requested Visits Authorized [id number] New Request 08/23/2024 08/23/2025 1 1 * Imaging (Urgent) - New Request Specialty Diagnoses / Procedures Referred By Contac t Referred To Contact RADIOLOGY Procedures CTA HEART W 3D IMAGING Maryuri Casiano MD Three [facility] [address] [place] [address] Phone: tel: fax: Referral ID Status Reason Start Date Expiration Date V isits Requested Visits Authorized [id number] New Request 08/21/2024 08/21/2025 1 1 * Imaging (Routine) - New Request Specialty Diagnoses / Procedures Referred By Contac t Referred To Contact RADIOLOGY Procedures CT HEAD WO CON Christiano Betancourt MD ONE [facility] [place] [place] [address] Phone: tel: [phone] fax: Referral ID Status Reason Start Date Expiration Date V isits Requested Visits Authorized [id number] New Request 08/20/2024 08/20/2025 1 1 * Imaging (Urgent) - New Request Specialty Diagnoses / Procedures Referred By Contac t Referred To Contact RADIOLOGY Procedures USV CAROTID DUPLEX GARY Christiano Betancourt MD [address] [facility] [place] [place] [address] Phone: tel: [phone] fax: Referral ID Status Reason Start Date Expiration Date V isits Requested Visits Authorized [id number] New Request 08/20/2024 08/20/2025 1 1 * Imaging (Urgent) - New Request Specialty Diagnoses / Procedures Referred By Contac t Referred To Contact RADIOLOGY Procedures CT HEAD WO CON Christiano Betancourt MD [address] [facility] [place] [place] [address] Phone: tel: [phone] fax: Referral ID Status Reason Start Date Expiration Date V isits Requested Visits Authorized [id number] New Request 08/19/2024 08/19/2025 1 1 * Imaging (Urgent) - Pending Review Specialty Diagnoses / Procedures Referred By Contac t Referred To Contact RADIOLOGY Procedures USE ECHOCARDIOGRAM W CON USE ECHOCARDIOGRAM Nadege Vasquez APNP [address] [place] [address] Phone: tel:[phone] fax: Referral ID Status Reason Start Date Expiration Date V isits Requested Visits Authorized [id number] Pending Review 08/17/2024 08/17/2025 1 1 * (Routine) - Canceled Specialty Diagnoses / Procedures Referred By Tylerac t Referred To Contact Procedures BISCUIT MAKER eval and [place] [address] Phone: tel: [phone] fax: Referral ID Status Reason Start Date Expiration Date V isits Requested Visits Authorized [id number] Canceled 08/17/2024 08/17/2025 1 1 * (Routine) - Canceled Specialty Diagnoses / Procedures Referred By Contac t Referred To Contact Procedures OT eval and treat [place] [address] Phone: tel: [phone] fax: Referral ID Status Reason Start Date Expiration Date V isits Requested Visits Authorized [id number] Canceled 08/17/2024 08/17/2025 1 1 * (Routine) - Canceled Specialty Diagnoses / Procedures Referred By Contac t Referred To Contact Procedures PT eval and treat [place] [address] Phone: tel:[phone] fax: Referral ID Status Reason Start Date Expiration Date V isits Requested Visits Authorized [id number] Canceled 08/17/2024 08/17/2025 1 1 * Imaging (Urgent) - New Request Specialty Diagnoses / Procedures Referred By Contac t Referred To Contact RADIOLOGY Procedures MRI BRAIN WO CON Nadege Vasquez APNP [address] [place] [address] Phone: tel:[phone] fax: Referral ID Status Reason Start Date Expiration Date V isits Requested Visits Authorized [id number] New Request 08/17/2024 08/17/2025 1 1 * Imaging (Emergency) - New Request Specialty Diagnoses / Procedures Referred By Contac t Referred To Contact RADIOLOGY Procedures CTA HEAD+NECK Dennis Garza MD [address] [place] [address] Phone: tel: fax: Referral ID Status Reason Start Date Expiration Date V isits Requested Visits Authorized [id number] New Request 08/17/2024 08/17/2025 1 1 * Imaging (Emergency) - New Request Specialty Diagnoses / Procedures Referred By Contac t Referred To Contact RADIOLOGY Procedures CT STROKE(HEAD WO) Dennis Garza MD [address] [place] [address] Phone: tel: fax: Referral ID Status Reason Start Date Expiration Date V isits Requested Visits Authorized [id number] New Request 08/17/2024 08/17/2025 1 1 Reason for Visit * Reason Comments Stroke Alert * Auth/Cert (Routine) Specialty Diagnoses / Procedures Referred By Contac t Referred To Contact Diagnoses Altered mental status CVA (cerebral vascular accident) ([facility]) Procedures NONE [place] [address] Phone: tel:[phone] fax: Referral ID Status Reason Start Date Expiration Date Visits Re quested Visits Authorized [id number] 1 1 Encounter Details Date Type Department Care Team (Late st Contact Info) Description 08/17/2024 9:22 AM CDT - 08/27/2024 12:09 PM CDT Hospital Encounter [facility] Intensive Care Unit [place], [place] [id number] Dennis Garza MD [address] [place] [phone] Christiano Betancourt MD [place], [place] [phone] (Work) Perlita Beavers MD [address] [place] [phone] Krissy Wilson DO [address] [place], [place] [phone] Stroke Alert Discharge Disposition: Custodial Facility Social History Tobacco Use Types Packs/Day Years [...] materials from doctor or pharmacy Often 08/07/2024 [facility] Utilities Answer Date Recorded In the past 12 months has e [employer], [employer], oil, or water company threatened to shut off services in your home? No 08/17/2024 Humiliation, Afraid, Rape, and Kick questionnair e Answer Date Recorded Within the last year, have y ou been afraid of your partner or ex-partner? No 08/17/2024 Within the last year, have y ou been humiliated or emotionally abused in other ways by your partner or ex-partner? No Within the last year, have y ou been kicked, hit, slapped, or otherwise physically hurt by your partner or ex-partner? No 08/17/2024 Within the last year, have y ou been raped or forced to have any kind of sexual activity by your partner or ex-partner? No 08/17/2024 Social Connection and Isolat ion Panel [NHANES] Answer Date Recorded In a typical week, how many times do you talk on the phone with family, friends, or neighbors? More than three times a week 12/30/2022 How often do you get togethe r with friends or relatives? More than three times a week 12/30/2022 Attends Christianity Services Not on file 12/30 Do you belong to any clubs o r organizations such as druze groups, unions, fraternal or athletic groups, or [...] like food, housing, medical care, and heating? Somewhat hard 08/17/2024 PHQ-2 Answer Date Recorded Patient Health Questionnaire-2 [...] the money to buy more. Never true 08/18/19 25 Within the past 12 months, t he food you bought just didn't last and you didn't have money to get more. Never true 08/17/2024 PRAPARE - Transportation Answer Date Re corded In the past 12 months, has l ack of transportation kept you from medical appointments or from getting medications? No 07/28 In the past 12 months, has l ack of transportation kept you from meetings, work, or from getting things needed for daily living? No 08/17/2024 Housing Stability Vital Sign Answer Macho e [...] to sleep or slept in a senior living (including now)? No 06/24/2023 Housing Stability Vital Sign Answer Macho e Recorded In the last 12 months, was t here a time when you were not able to pay the mortgage or rent on time? No 08/17/2024 In the past 12 months, how m any times have you moved where you were living? 0 08/17/2024 At any time in the past 12 m [facility], were you homeless or living in a senior living (including now)? No 08/17/2024 Sex and Gender Information Value Date Recorded Sex Assigned at Male 04/09/2024 9:16 PM CANDY DECORATOR Legal Sex Male 8:36 PM CDT Gender Identity Male 04/09/2024 9:16 PM CANDY DECORATOR Sexual Orientation Straight 04/09/2024 9: 16 PM CANDY DECORATOR documented as of this encounter Last Filed Vital Signs Vital Sign Reading Time Taken Comments Blood Pressure 135/71 08/27/2024 11:00 AM CDT Pulse 71 08/27/2024 11:00 AM CDT Temperature 36.6 C (97.8 F) 08/27/2024 8:00 AM CDT Respiratory Rate 17 08/27/2024 11:00 AM CDT Oxygen Saturation 99% 08/27/2024 11:00 AM CDT Inhaled Oxygen Concentration - - Weight 65.9 kg (145 lb 4.5 oz) 08/27/2024 4:00 A M CDT Height 162.6 cm (5' 4 ) 08/17/2024 9:37 AM CDT Body Mass Index 24.94 08/17/2024 9:37 AM CDT documented in this encounter Functional Status * Question Answer Date of Assessment Author Status Do you have serious difficulty walking or climbing stairs? Yes 08/17/2024 1:00 PM MAKT Jose Antonio Leroy RN Active * Question Answer Date of Assessment Author Status Do you have difficulty dressing or bathing? Yes 08/17/2024 2:00 PM MAKT Deja Leroy RN Active Because of a physical, mental, or emotional condition, do you have difficulty doing errands alone such as visiting a doctor's office or shopping? Yes 08/17/2024 2:00 PM Jose Antonio Hernandez RN Active * Are you deaf or do you have serious difficulty hearing Answer Date of Assessment Author Status No 08/17/2024 1:00 PM Jose Antonio Hernandez RN Active * Are you blind or do you have serious difficulty seeing, even when wearing glasses? Answer Date of Assessment Author Status No 08/17/2024 1:00 PM Jose Antonio Hernandez RN Active * Do you have serious difficulty walking or climbing stairs? Answer Date of Assessment Author Status Yes 08/17/2024 1:00 PM CDT Jose Antonio Leroy RN Active * Do you have difficulty dressing or bathing? Answer Date of Assessment Author Status Yes 08/17/2024 2:00 PM MAKT Jose Antonio Leroy RN Active * Because of a physical, mental, or emotional condition, do you have difficulty doing errands alone such as visiting a doctor's office or shopping? Answer Date of Assessment Author Status Yes 08/17/2024 2:00 PM MAKT Jose Antonio Leroy RN Active documented as of this encounter Mental Status * Question Answer Entry Date Author Status Because of a physical, mental, or emotional condition, do you have serious difficulty concentrating, remembering, or making decisions? Yes 08/17/2024 2:00 PM MAKT Deja Leroy RN Active * Because of a physical, mental, or emotional condition, do you have serious difficulty concentrating, remembering, or making decisions? Answer Entry Date Author Status Yes 08/17/2024 2:00 PM Jose Antonio Hernandez RN Active documented in this encounter Discharge Summaries * Nicole Bills RN - 08/27/2024 11:34 AM CDT Pt d/c to [facility] via ambulance at 12:09 pm. Report called to Delta Anderson/daughter notified of pt's departure at 12:25 . Discharge information given to EMS to give to daughter at facility. * Krissy Wilson DO - 08/27/2024 10:53 AM CDT Images from the original note were not included. Hospitalist Discharge Summary Patient ID: Ramírez Fernando. male. 1950. Admit date: 08/17/2024 9:22 AM Discharge date: 08/27/2024 Admitting Physician: Christiano Betancourt MD Primary Care Physician: DONAVON CONNOR MD Discharge Physician: Krissy Wilson DO Primary Diagnoses: Acute on chronic encephalopathy Recent CVA Carotid stenosis Admission Condition: fair Discharged Condition: Stable Code Status: Full Code Chief Complaint: Chief Complaint Patient presents with Stroke Alert Reason for hospitalization: Carotid stenosis HPI per admitting physician: Ramírez Fernando is a 74-year-old male who speaks Nepali and his son Gladys is at the bedside helping with translation; has a past medical history significant for BPH (benign prostatic hyperplasia), dementia, diabetes, Hypertension, and Unilateral inguinal hernia, CAD with recent stents in May and June 2024 on ASA and Brilinta, recurrent severe constipation, known history of CVA, but with most recent admission to [facility] he was diagnosed with multiple acute right infarcts affecting the right cerebellar hemisphere including the right frontal, posterior, posterior temporal lobes patient suggesting sharp emboli in the right middle cerebral artery vascular distribution. He was e valuated by speech therapy that noted he is aspirating all consistencies. He was recommended a pur??ed diet with thickened liquids. Therapy recommended SNF at discharge, family did not want him to goto a SNF and took him home. Patient's son Gladys is also at the bedside helping provide information along with reviewing ER documentation. Per ED documentation patient was discharged on Xanax, patientwas given a dose of Xanax 0.25 mg for the first time yesterday, he was also able to take his blood pressure medications at 8:30 PM. Around 11:00 PM son was unable to arouse the patient and take him to the bathroom. This morning patient was unable to be aroused, son called 911 and patient was brought to the ER. Patient does open his right eye when his name is called, he does not answer any questions appropriately when his son helps with translation. He does follow simple commands. He is able tomove his right foot and squeeze with his right hand. Otherwise his left side is completely flaccid.Patient is not alert enough to take anything by mouth at this time. The son tells me that they weregiving the patient a modified diet with thickened liquids. I did discuss with the son that we will obtain a brain MRI, we will monitor him and offer IV fluids. But if his mental status does not improve within 24 hours we may have to discuss other means of nutrition or goals of care. He verbalized understanding and appreciated the conversation. He will be admitted for further evaluation and treatment. I did spend a total of 30 minutes reviewing outside records are uploaded from his recent hospitalization [facility] from 08/12/2024 Hospital Course: Carotid stenosis CTA head/neck with complete occlusion of right ICA from 8 to 16 mm above its origin with reconstitution of the vessel more distally with decreased volume and opacity from the contralateral side. R ICA with string sign - concern for distal disease Vascular surgery consulted, appreciate recs. After discussion with Dr. Matthews of neurology and Dr. Padgett of vascular surgery, patient may benefit from R CEA. Heparin gtt initiated - monitoring in ICU given high risk of bleed. CT head after heparin gtt initiated with no evidence of bleed. Continue neurochecks q4 and close monitoring by ICU staff. S/p right CEA on 08/23 Noted to have increased bruising along right side of neck. Hgb stable. Vascular surgery aware and following. Continue to monitor Stable. DC to SNF Acute on chronic encephalopathy Recent CVA Patient presented to the hospital after being unresponsive since the night prior to admission. L side flaccid with dysphagia since recent CVA on 08/12. UA neg LE/nitrites Troponin WNL Lipid panel WNL CT head with focal area of hypoattenuation in the right occipital lobe posteriorly CTA head/neck with multiple areas of occlusion - ER reviewed with interventional neurology who feltno indication for intervention. Echo with bubble with no thrombus or PFO. Brain MRI with multifocal acute infarcts, however suspect likely similar to the MRI done at [facility] - only able to compare reports and not imaging. Repeat CT head with recent R hemispheric infarcts - no hemorrhagic transformation. Since admission, mental status waxes/wanes with periods of unresponsiveness. Neurology consulted, appreciate assistance. CTA heart reviewed by Dr. Casiano of cardiology - no left atrial appendage thrombus, no significant ascending aortic calcification. No need for LEO per cards. Started on precedex gtt due to intermittent agitation. Weaned off on 08/23 CM consulted for assistance with rehab on dc. Did not pass initial BISCUIT MAKER eval Dobhoff placed for short term meds, then pulled by patient Repeat BISCUIT MAKER eval- pureed solids, thin liquid by teaspoon only. CM consulted for discharge planning-will need continuing PT, OT and BISCUIT MAKER eval after discharge Sedation induced hypotension Secondary to Precedex gtt Levophed gtt. Weaned off precedex gtt on 08/23 Restarted low dose levophed then weaned off on 08/24 Monitor MAPs Resolved Hypertension BPs elevated on admission. Initially holding Toprol XL, Norvasc with hypotension as above. BP now improved off levophed BP trending up. Resume norvasc and metoprolol Dementia with agitation Patient intermittently confused and tries to get out of bed. Redirection is difficult due to aphasia and language barrier. Ativan/Xanax/Haldol have caused severe somnolence. Will request family to stay with him as much as possible. Precedex discontinued. Monitor Hypokalemia Replete and monitor ELOISE Creatinine 1.4, previous 0.8 in June 2024 IVF Resolved. RLE pain Appears to have ecchymosis on the back of the leg - family/patient unaware of how he got this.. Suspect traumatic Trial of low dose muscle relaxant. Resolved. Cardiomyopathy No evidence of fluid overload. Echo with EF 40-45%. No change from prior echo at [facility] from 07/12/24. Not on any diuretics. Resuming BB CAD Recently had stents X2 placed in June 2024 at [facility] ASA/brilinta DM2 Glucose increasing. Accu-Cheks QAC/HS Increased lantus to 15 uqhs SSI Monitor/adjust insulin as needed. Continue home meds at [place] Constipation Has had issues of severe constipation in the past. Continue home lactulose as able BPH Continue Flomax. Malnutrition Classification: Moderate Malnutrition Moderate malnutrition associated with starvation related to oral health limitations secondary to dysphagia as evidenced by unintended weight loss of 10.3% in 6 months, mild-moderate fat loss noted inthe following areas: orbital and buccal, and mild-moderate muscle loss noted in the following areas: temples, clavicle, acromion and patella. Dietitian following SDOH Readmission, speaks Nepali. DVT Prophylaxis: Heparin subq Code status: Full code Surrogate decision maker/POA: SonGladys along with his other children Discharge plan discussed with patient Discharge Exam: Filed Vitals: 08/27/24 0400 08/27/24 0500 08/27/24 0600 08/27/24 0700 BP: 130/70 (!) 144/63 (!) 147/74 (!) 150/65 Pulse: 77 72 71 72 Resp: 15 10 11 Temp: 98.2 ??F (36.8 ??C) TempSrc: Axillary SpO2: 99% 100% 99% 99% Weight: 65.9 kg (145 lb 4.5 oz) Height: -GENERAL: No acute distress -HEAD: Normocephalic, Atraumatic -EYES: Extraocular movements intact -LUNGS: Effort normal. Clear to auscultation bilaterally, No wheezes, No crackles, No ronchi -CVS: Regular rate and rhythm -ABDOMEN: Soft, Non tender, Non distended -EXT: No edema Consults: cardiology, pulmonary/intensive care, and neurology Significant Diagnostic Studies: Recent Labs Lab 08/22/24 0419 08/23/24 0400 08/23/24 1848 08/24/24 0400 08/25/24 0258 08/26/24 0400 08/27/24 0330 WBC 7.68 10.02 8.49 13.52* 8.46 10.64 9.39 RBC 4.27* 4.05* 3.59* 3.55* 3.33* 3.52* 3.52* HGB 11.9* 11.4* 10.2* 9.9* 9.6* 10.0* 10.1* HCT 37.8* 36.2* 32.4* 31.5* 30.2* 31.6* 31.5* MCV 88.5 89.4 90.3 88.7 90.7 89.8 89.5 MCH 27.9 28.1 28.4 27.9 28.8 28.4 28.7 MCHC 31.5* 31.5* 31.5* 31.4* 31.8* 31.6* 32.1 PLT 243 227 168 254 202 216 266 RDW 15.4* 15.3* 15.0* 15.3* 15.7* 15.6* 15.8* MPV 11.5 11.6 12.6* 11.8 11.3 11.7 11.2 PERNEU 56.5 62.3 85.7 72.7 65.3 74.1 65.0 PERLYM 30.7 25.7 11.2 17.8 20.6 14.0 20.0 PERMON 7.7 7.5 1.3 8.6 12.4 10.7 11.5 NEUC 4.34 6.24 7.28 9.83* 5.53 7.89* 6.10 [facility] 2.36 2.58 0.95* 2.41 1.74 1.49 1.88 MONOC 0.59 0.75 0.11* 1.16* 1.05* 1.14* 1.08* EOSC 0.29 0.33 0.06 0.01* 0.07 0.05 0.27 BASOC 0.08 0.09* 0.04 0.05 0.04 0.03 0.02 DTYPE AUTOMATED DIFFERENTIAL AUTOMATED DIFFERENTIAL AUTOMATED DIFFERENTIAL AUTOMATED DIFFERENTIAL AUTOMATED DIFFERENTIAL AUTOMATED DIFFERENTIAL AUTOMATED DIFFERENTIAL Recent Labs Lab 08/21/24 0407 08/22/24 0419 08/23/24 0400 08/24/24 0400 08/25/24 0258 08/26/24 0400 08/27/24 0330 NA 135* 137 138 139 139 138 141 K 3.6 3.6 3.9 4.4 3.9 3.6 3.1* CL 104 105 106 108 106 105 107 CO2 25.6 26.7 26.3 22.6 26.3 24.7 26.3 AGAP 5.4 5.3 5.7 8.4 6.7 8.3 7.7 BUN 18 24* 28* 23* 20* 17 20* CR 1.01 1.16 1.13 1.27 1.22 1.01 0.97 BUNCREATININ 17.8 20.7 24.8 18.1 16.4 16.8 20.5 GLU 252* 258* 238* 261* 176* 167* 99 CA 8.5 8.2* 8.3* 8.1* 8.6 8.5 8.5 No results for input(s): CHOL , TRI , HDL , LDL , HGBA1C , TSH in the last 168 hours. Recent Labs Lab 08/20/24 1800 INR 0.9 PTT 32.1 Recent Labs Lab 08/21/24 0840 08/22/24 1613 08/23/24 0400 TROP 55 37 50 No results for input(s): LACTICACID , PROCT in the last 168 hours. No results for input(s): PH , PCO2 , PO2 , [id number] , BICARBWB , BASEDEFICIT , BASEEXCESS in the last 168 hours. Results for orders placed or performed during the hospital encounter of 03/16/24 URINALYSIS, AUTO, COMPLETE Collection Time: 03/16/24 3:15 PM Result Value Ref Range SPECIMEN TYPE URINE CLEAN CATCH COLOR (U) COLORLESS TRANSPARENCY CLEAR SPECIFIC GRAVITY (U) 1.019 1.001 - 1.030 U PH 6.5 5.0 - 9.0 LEUKOCYTES (U) NEGATIVE NEGATIVE NITRITES NEGATIVE NEGATIVE PROTEIN RANDOM (U) NEGATIVE <30 MG/DL GLUCOSE (U) NORMAL NORMAL MG/DL KETONES MG/DL (U) 10 (A) NEGATIVE MG/DL UROBILINOGEN NORMAL NORMAL MG/DL BILIRUBIN (U) NEGATIVE NEGATIVE MG/DL BLOOD (U) NEGATIVE NEGATIVE RBC/HPF 4 <6 /HPF Radiology Reports : CTA HEART W 3D IMAGING Result Date: 08/26/2024 [facility] [address] [place], [place] [address] EXAMINATION: CARDIAC COMPUTED TOMOGRAPHY ANGIOGRAM, ROUTINE CORONARY [...] was used to reduce the radiation exposure. Adose lowering technique was used for this procedure, which may include, but is not limited to, dose reduction technique, automated exposure control, the use of iterative reconstruction, and ALARA (AsLow As Reasonably Achievable) / Image Gently techniques. Medications: Administered by cardiology service. Vital signs: Recorded by cardiology service. Procedure Complications/Allergic reactions: None. Coronary CT angiogram quality: Determined by cardiology service. FINDINGS: CORONARY ARTERY ANGIOGRAM AND OTHER CARDIAC FINDINGS: Interpreted by soils engineer. EXTRACARDIAC FINDINGS: Expiration imageschest. Dependent atelectasis. No suspicious mass or consolidation in the visualized lungs. The visualized thoracic aorta is atherosclerotic. Visualized pulmonary artery appears normal. Accessory/replaced left hepatic artery. Multiple plates along the right ribs. IMPRESSION: 1. Cardiac findings interpreted by soils engineer. 2. No suspicious mass or consolidationin the visualized lungs. Ordered By: MARYURI CASIANO Interpreted By: Romulo Loving MD, 08/26/2024 1:48 PM USV GD INTRAOPERATIVE Result Date: 08/25/2024 INTRAOPERATIVE DUPLEX [facility] Pat.Name: RAMÍREZ FERNANDO Pat.ID: [id number].Date: 08/23/2024 Exam Time: 4:32:00 PM Study Type:KIKE VS Intraoperative Height: 64 in Age: 9 1950,74Y Sex: M Sonogrphr: Mu Cervantes RVT Pat. Stat.:Inpatient Room: OR 8 History / Clinical:intraoperative scan right carotid endarterectomy Procedures: Ta scale, Color Doppler imaging, Doppler Spectral Analysis Race: X ++++++++++++++++++++++++++++++++++++ SUMMARY: ++++++++++++++++++++++++++++++++++++ No significant plaque or defects noted at the right endarterectomized carotid artery. Theproximal common carotid is widely patent. The external carotid is patent. CONCLUSION: Patent carotid endarterectomy with no significant plaque or intimal flaps in the common or internal carotid arteries. <Electronic Signature> 08/25/2024 03:03 PM Jeanmarie Padgett M.D. XR CHEST PA OR AP 1V Result Date: 08/25/[address] [address] EXAMINATION: XR Portable CXR, 1 View, 2 images, 08/24/2024 at 2224 hours. INDICATION: RE-evaluate [place]obb[place] COMPARISON: Portable AP chest x-ray 08/24/2024 at 2118 hours. FINDINGS: Removal of previous feeding tube and placement of a new feeding tube with tip in the fundus or proximal body of stomach, several centimeters below the GE junction. panel monitor leads overlie the chest and abdomen. The cardiomediastinal silhouette is within normal limits. Pulmonary vascularity is normal. The left apex is not completely included on the exam related to positioning and technique. There is a small focal consolidative or nodular opacity in the left upper lobe, infectious/inflammatory or less likely neoplasm. There is mild focal atelectasis, infiltrate or scarring in the medial retrocardiac left lower lobe. There is mild prominence of interstitial markings centrally in both lungs, mild interstitial pulmonaryedema versus chronic interstitial scarring. Stable calcified granuloma in the right lower lobe. No significant pleural effusion or pneumothorax. Osteopenia with no acute osseous abnormality. IMPRESSION: 1. Removal of previous feeding tube and placement of a new feeding tube with tip in thefundus or proximal body of stomach, several centimeters below the GE junction. 2. Small focal consolidative or nodular opacity in the left upper lobe, infectious/inflammatory or less likely neoplasm.Suggest follow- up PA and lateral chest x-ray with better patient positioning and technique for further evaluation.. 3. Mild focal atelectasis, infiltrate or scarring in the medial retrocardiac left lower lobe. Referred By: Interpreted By: Raven Watson MD, 08/25/2024 12:45 AM XR CHEST PORTABLE Result Date: 08/24/[address] [address] Examination: XR CHEST PORTABLE Exam time: 08/24/2024 9:26 PM Clinical history: DOBHOFF PLACEMENT Comparison:Radiograph August 17, 2024. Technique: AP image of the chest. Findings: Interval placement of an enteric tube, which coils within the stomach and courses back up the esophagus. The distal tip of the tube terminates within the mid esophagus. Repositioning is required. The heart is unchanged in size. Scattered atelectatic changes are noted bilaterally. Multiple surgically fixated right ribs are identified. IMPRESSION: The enteric tube coils within the stomach and courses back up the esophagus. The distaltip of the tube terminates within the mid esophagus. Repositioning is required. Results were relayed to the ordering provider Henry Palafox M.D. via the [employer] application at 10:19 PM on 08/24/2024. Results were acknowledged. Referred By: Interpreted By: Christina Buitrago MD, 08/24/2024 10:14 PM ECG 12 lead Result Date: 08/23/[address] Test Date: 2024-08-23 Pat Name: RAMÍREZ FERNANDO Department: 40 Room: A209 Gender: Male Insight Director: : 1950 Requested By: MU TAI Order Number: [id number] Reading MD: Abundio Singh Measurements Intervals [place] Rate: 82 P: 50 MO: 164 QRS: 11 QRSD: 142 T: 116 QT: 408 QTc: 479 Interpretive Statements SINUSRHYTHM LEFT BUNDLE BRANCH BLOCK [120+ ms QRS DURATION, 80+ ms Q/S IN V1/V2, 85+ ms R IN I/aVL/V5/V6] Compared to ECG 08/22/2024 16:09:50 Left bundle- branch block now present T-wave abnormality no longer present Possible ischemia no longer present ECG 12 lead Result Date: 08/23/[address] Test Date: 2024-08-22 [facility] Department: [facility] Room: [id number] Gender: Male Insight Director: : 1950 Requested By: CHRISTIANO BETANCOURT Order Number: [id number] Reading MD: Adal Pierson Measurements Intervals AxisRate: 77 P: 25 MO: 181 QRS: 10 QRSD: 91 T: 140 QT: 397 QTc: 450 Interpretive Statements SINUS RHYTHM MODERATE T-WAVE ABNORMALITY, CONSIDER ANTEROLATERAL ISCHEMIA [-0.1+ mV T- WAVE IN V3-V6] Comparedto ECG 08/21/2024 08:07:31 No significant changes 40:50:54 CDT ECG 12 lead Result Date: 08/21/[address] Test Date: 2024-08-21 [facility] Department: 40 Room: [id number] Gender: Male Insight Director: : 1950 Requested By: CHRISTIANO BETANCOURT Order Number: [id number] Reading MD: Kim Medina Measurements Intervals [place] Rate: 67 P: 16 MO: 169 QRS: 5 QRSD: 86 T: 142 QT: 438 QTc: 464 Interpretive Statements SINUS RHYTHM ST DEVIATION AND MODERATE T-WAVE ABNORMALITY, CONSIDER ANTEROLATERAL ISCHEMIA [-0.1+ mV T-WAVE IN V3-V6] Compared to ECG 08/17/2024 09:35:52 T-wave abnormality now present Possible ischemia now present Left bundle-branch block no longer present CT HEAD WO CON Result Date: 08/21/[address] [address] EXAMINATION: CT of the head without contrast [...] Moderate arteriosclerotic calcification the cavernous segments the internalcarotid arteries bilaterally. Prior bilateral ocular lens extractions with prosthetic lens implantation. Paranasal sinuses and mastoid air cells are well aerated. There is no acute fracture nor destructive process of the visualized osseous structures. IMPRESSION: 1. No CT evidence [...] By: Jeanmarie Schafer MD, 08/21/2024 9:32 AM USV CAROTID DUPLEX GARY Result Date: 08/20/2024 CAROTID ARTERY DUPLEX [facility] Pat.Name: RAMÍREZ FERNANDO Pat.ID: [id number] St.Date:08/20/2024 Refer.MD: Donavon Connor Exam Time: 2:10:00 PM Study Type:KIKE VS Duplex Carotid BI Height:64 in Age: 9 1950,74Y Sex: M Sonogrphr: Tomasa Cotto RVT Procedures: Ta scale, Color Doppler imaging, Doppler Spectral Analysis Race: X ++++++++++++++++++++++++++++++++++++ SUMMARY: ++++++++++++++++++++++++++++++++++++ St E's Carotid Criteria 50-69% = PSV 180- 230 and/or Ratio 2.0 - 4.0 >70% = PSV >230 and Ratio >4.0 or EDV >100 Stent Criteria >80% = PSV >340 and Ratio >4.0 Right side: The right bifurcation- internal carotid artery has severe, calcified, irregular plaque. [...] ICA Prox ICA PSV 22 cm/s Mid ICAMid ICA PSV 370 cm/s Right Mid ICA [...] 0 <Electronic Signature> 08/20/2024 09:30 PM Jeanmarie Padgett M.D. CT HEAD WO CON Result Date: 08/19/[address] [address] DATE: 08/19/2024 12:40 PM EXAMINATION: CT of the head CLINICAL HISTORY: Lethargy COMPARISON: 08/17/2024 TECHNIQUE: CT examination of the head without contrast was performed. Axial and multiplanar images obtained. A dose lowering technique was used for this procedure, which may include, but is not limited to,dose reduction technique, automated exposure control, the use of iterative reconstruction, and ALARA (As Low As Reasonably Achievable) / Image Gently techniques. FINDINGS: Image quality is degraded by motion. There are patchy foci of hypodensity noted in the right frontoparietal and temporal parenchyma, corresponding to recent infarcts which, better delineated on the prior MRI. No large hemorrhagic transformation. No midline shift. Basal cisterns patent. Otherwise stable small vessel disease, or cranial vascular calcifications, and volume loss. Calvarium unremarkable. Mastoid air cells clear.Mild mucosal thickening in the paranasal sinuses. Bilateral lens replacements. IMPRESSION: 1. Patchy recent right hemispheric infarcts, somewhat better delineated on the prior MRI. No large hemorrhagic transformation. No midline shift. Basal cisterns patent. 2. Small vessel disease and volume loss. Ordered By: CHRISTIANO BETANCOURT Interpreted By: Matty Hess MD, 08/19/2024 3:21 PM USE ECHOCARDIOGRAM W CON Result Date: 08/18/2024 Echocardiography Report Pat.Name: RAMÍREZ FERNANDO Pat.ID: [id number] St.Date: 08/18/2024 Exam Time: 3:08:00 PM Study Type:ECHO WITH CARDIAC DOPPLER COMP Height: 64 in Weight: 134 lb BSA: 1.65 m2 Age: 9 1950,74Y Sex: M BP: 173/87 Sonogrphr: SS RD Pat. Stat.:Inpatient Room: [facility] Reason for Study:R/O CVA Procedures: 2D, M-mode, [...] is not assessable. Technically difficult exam due topatient position and restless during the exam. Trace aortic regurgitation. ++++++++++++++++++++++++++++++++++++ FINDINGS: ++++++++++++++++++++++++++++++++++++ LV: The left ventricular size is normal.The left ventricular systolic function is mild to [...] Trivial pericardial effusion, without tamponade physiology. AO: Normalaortic root. SVn: Inferior vena cava is not [...] MV mnPG 3 mmHg MV pkE 48 cm/s(60-130)* MV pkPG 7 mmHg MV pkA 125 [...] 118 ml LV SV 26.8 ml LVEDV BP97.1 ml LV SV 53.6 ml LngAxs 6.53 cm LVPW LVPWd 0.823 cm Right Ventricle RVIDd 2.37 cm (2.6-4.3)* Right Ventricle 26.6 mm Right Ventricle 30.5 mm Right and Left 0.687 Major [place] 59.3 mm Ventricular Septum IVSd 1.54 cm Left Atrium LA a-p 2.6 cm (2.8-3.4)+* LA VOLBP 26.1 ml Aorta Ao Rtd 3.1 cm LVOT LVOT 2 cm LVOTArea 3.14 cm2 Ratios IVS LA Biplane LAVol I BP 15.8 ml/m2 Right Atrium Major [place] 38.1 mm Minor [place] 21.1 mm MMODE Aortic Valve AV sep 1.7 cm (1.5-2.6) TA Tricuspid Annul 12.3 mm <Electronic Signature> 08/18/2024 06:02 PM Mu Tai M.D. MRI BRAIN WO CON Result Date: 08/17/[address] [address] INDICATION: Stroke EXAMINATION: MRI of the brain without contrast. TECHNIQUE: Multisequence multiplanar unenhanced imaging. DATE/TIME: 08/17/2024 2:07 PM COMPARISON: CT, CTA, same date. FINDINGS: There are multiple small patchy foci of acute infarct in the right cerebral hemisphere involving the right occipital lobe, posterior temporal lobe and frontal lobe periventricular white matter. Distribution suggests involvement of the MCA watershed territories with the EMBROIDERY WORKER and CHRISTAL. No other acute infarct identified. [...] dedicated T2-weighted imaging was apparently not performed. 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 Other chronic or nonurgent findings as described above. Referred By: Electronically Signed By: Erik Webster MD on 53:11 PM Interpreted By: Erik Webster MD, 08/17/2024 3:00 PM ECG 12 lead Result Date: 08/17/[address] Test Date: 2024-08-17 Pat Name: RAMÍREZ FERNANDO Department: 41 Room: A422 Gender: Male Insight Director: [id number] : 1950 Requested By: DENNIS GARZA Order Number: [id number] Reading MD: Mu Tai Measurements Intervals [place] Rate: 70 P: 49 MO: 175 QRS: -29 QRSD: 150 T: 115 QT: 442 QTc: 479 Interpretive Statements SINUS RHYTHM LEFT BUNDLE BRANCH BLOCK [120+ ms QRS DURATION, 80+ ms Q/S IN V1/V2, 85+ ms R IN I/aVL/V5/V6] Compared to ECG 06/22/2023 15:09:14 Left bundle-branch block now present T-wave abnormality no longer present Possible ischemia no longer present Other ischemic changes, not STEMI Preliminary EKG Interpretation by Dennis Garza M.D. CTA HEAD+NECK Result Date: 08/17/[address] [address] Examination: CTA of the head and neck [...] Mild to moderate stenosis bilaterally. Short segment high- grade stenosis near origin of right MCA. See screen shot. Short segment moderate to high-grade stenosis of origin of dominant right MCA [id number]. See additional screen shot. Multifocal mild to moderate stenoses in the more distal right MCA vasculature which may be secondary to incomplete opacification and blood flow from the right ICA.There is high-grade short to moderate length stenosis of the distal portion of left MCA M1 segment.See screen shot. There is a grade moderate [...] basilar artery. Asymmetric diminished prominence of left EMBROIDERY WORKER territory noted with no focal high-grade stenosis appreciated. CTA neck: Left aorticarch. Mild atherosclerotic disease in the arch. Origins [...] left ICA 9 mm above the origin. IMPRESSION: 1. [...] stenoses of bilateral MCA vasculature distally. 7. Mildto moderate stenosis of distal left vertebral artery just proximal to origin of basilar artery. 8. Asymmetric diminished prominence of left EMBROIDERY WORKER territory vasculature with no focal high-grade stenosisappreciated. 9. Approximately 50% stenosis at origin of left ICA. Up to 60% stenosis of left ICA 9 mm above the origin. 10. Moderate stenosis at origin of left ECA. Referred By: Electronically SignedBy: Dennis Hutson MD on 08/17/2024 10:35 AM Interpreted By: Dennis Hutson MD, 08/17/2024 10:21 AM XR CHEST PORTABLE Result Date: 08/17/[address] [address] Examination: Chest x-ray 1 view Exam Date/Time: 08/17/2024 10:00 AM Reason For Exam: Altered mental status Altered mental status Comparison: Chest radiograph 06/22/2023 Technique: SingleAP view of the chest was obtained. Findings: No large effusion. No pneumothorax. Atherosclerotic aorta. Elevated right hemidiaphragm similar to prior study. Pulmonary vasculature within normal limits. No consolidation. Multiple postsurgical changes in the right ribs. No convincing new infiltrate. ======== IMPRESSION: ======== 1. No convincing new acute cardiopulmonary findings. Referred By: InterpretedBy: Dennis Hutson MD, 08/17/2024 10:[address] STROKE(HEAD WO) Result Date: 08/17/[address] [address] Procedure(s): CT STROKE(HEAD WO) Date of service: [...] chronic small vessel ischemic disease. There is anarea of hyperattenuation present in the right occipital lobe. This appears to be slightly increasedor new as compared back to the prior examination. This may relate to an area of acute or subacute ischemic change. MRI recommended. IMPRESSION: There is a focal area of hypoattenuation in the right occipital lobe posteriorly. This may relate to an area of ischemic change. This may be acute to subacute. This is new as compared to June 22, 2023. Diffuse white matter hypoattenuating areas suspected due to chronic small vessel ischemic disease. No midline shift. Verbal preliminary given to Dr. Garza at 10:05 AM. Referred By: Interpreted By: Salvador Pretty MD, 08/17/2024 9:59 AM Discharge Medications: Medication List CONTINUE taking these medications Morning Afternoon Evening Bedtime As Needed amLODIPine 5 MG tablet Commonly known as: NORVASC Take 1 tablet (5 mg total) by mouth daily. Indications: High Blood Pressure Last time this was given: 5 mg on August 27, 2024 9:00 AM Signed by: Dr. Donavon Connor Last time this was given: August 27, 2024 9:00 AM 1 tablet aspirin 81 MG chewable tablet Chew 1 tablet (81 mg total) by mouth daily. Indications: Preventative Treatment Last time this was given: 81 mg on August 27, 2024 9:00 AM Last time this was given: August 27, 2024 9:00 AM 1 tablet atorvastatin 80 MG tablet Commonly known as: LIPITOR Take 1 tablet (80 mg total) by mouth daily. Indications: High Amount of Chloride in the Blood Last time this was given: 80 mg on August 26, 2024 8:06 PM Last time this was given: August 26, 2024 8:06 PM 1 tablet Brilinta 90 mg tablet Take 1 tablet (90 mg total) by mouth 2 (two) times daily. Indications: Diabetes Last time this was given: 90 mg on August 27, 2024 9:01 AM Last time this was given: August 27, 2024 9:01 AM Generic drug: ticagrelor 1 tablet 1 tablet insulin glargine 100 UNIT/ML injection (VIAL) Commonly known as: Lantus Indications: Diabetes ADMINISTER 9 UNITS UNDER THE SKIN EVERY MORNING Last time this was given: 15 Units on August 26, 2024 8:02 PM Signed by: Dr. Donavon Connor Last time this was given: August 26, 2024 8:02 PM Indications: Diabetes ADMINISTER 9 UNITS UNDER THE SKIN EVERY MORNING insulin lispro (1 Unit Dial) 100 UNIT/ML injection (PEN) Commonly known as: HumaLOG KwikPen Inject 4-10 Units into the skin see administration instructions. Indications: Diabetes Sliding Scale: 200-250+4u, 250-300 6u, 300-350+8u, 350-400 10u, >400 take 10u and re-measure after 30 min if still above 400 call a doctor Last time this was given: Ask your nurse or doctor Signed by: Dr. Donavon Connor Last time this was given: Ask your nurse or doctor Inject 4-10 Units into the skin see administration instructions. Indications: Diabetes Sliding Scale: 200-250+4u, 250-300 6u, 300-350+8u, 350-400 10u, >400 take 10u and re-measure after 30 min if still above 400 call a doctor lactulose 10 GM/15ML solution Commonly known as: ENULOSE TAKE 30 ML BY MOUTH THREE TIMES DAILY FOR CONSTIPATION Last time this was given: 10 g on August 27, 2024 9:00 AM Signed by: Dr. Donavon Connor Last time this was given: August 27, 2024 9:00 AM TAKE 30 ML BY MOUTH THREE TIMES DAILY FOR CONSTIPATION metoprolol succinate ER 50 MG 24 hr tablet Commonly known as: TOPROL-XL Take 1 tablet (50 mg total) by mouth daily. Indications: High Blood Pressure Last time this was given: 12.5 mg on August 27, 2024 9:01 AM Last time this was given: August 27, 2024 9:01 AM 1 tablet Senna 8.6 MG tablet Commonly known as: SENOKOT Take 1 tablet (8.6 mg total) by mouth 2 (two) times daily as needed for Constipation. 1 tablet tamsulosin 0.4 MG Caps Commonly known as: FLOMAX Take 1 capsule (0.4 mg total) by mouth daily. Indications: Benign prostatic hyperplasia (BPH) suspected Last time this was given: 0.4 mg on August 21, 2024 12:43 PM Signed by: Dr. Donavon Connor Last time this was given: August 21, 2024 12:43 PM 1 capsule STOP taking these medications ALPRAZolam 0.25 MG tablet Commonly known as: XANAX Disposition: Custodial Facility Patient Instructions: Follow-up appointments: PCP Time Spent on Discharge: more than 30 minutes Signed: KRISSY WILSON DO documented in this encounter Discharge Instructions * Attachments The following attachments cannot be sent through Care Everywhere. * Stroke ? Discharge instructions (Montenegrin) * Diabetes in Older Adults (Montenegrin) documented in this encounter Medications at Time of Discharge amLODIPine (NORVASC) 5 MG tabletIndication s:Hypertension Take 1 tablet (5 mg total) by mouth daily. Indications: High Blood Pressure 90 tablet 08/12/2024 aspirin 81 MG chewable tabletIndication s:Prophylaxis Chew 1 tablet (81 mg total) by mouth daily. Indications: Preventative Treatment 07/02/2024 atorvastatin (LIPITOR) 80 MG tabletIndication s:Hyperchloremia Take 1 tablet (80 mg total) by mouth daily. Indications: High Amount of Chloride in the Blood 07/02/2024 insulin glargine (LANTUS) 100 UNIT/ML injection (VIAL)Indication s:Diabetes Mellitus Indications: Diabetes ADMINISTER 9 UNITS UNDER THE SKIN EVERY MORNING 10 mL 5 06/24/2024 insulin lispro, 1 Unit Dial, (HUMALOG KWIKPEN) 100 UNIT/ML injection (PEN)Indications :Diabetes Mellitus Inject 4-10 Units into the skin see administration instructions. Indications: Diabetes Sliding Scale: 200-250+4u, 250-300 6u, 300-350+8u, 350-400 10u, >400 take 10u and re-measure after 30 min if still above 400 call a doctor 12 mL 3 06/24/2024 lactulose (ENULOSE) 10 GM/15ML solutionIndicati ons:Constipation TAKE 30 ML BY MOUTH THREE TIMES DAILY FOR CONSTIPATION 473 mL 07/29/2024 metoprolol succinate ER (TOPROL-XL) 50 MG 24 hr tabletIndication s:Hypertension Take 1 tablet (50 mg total) by mouth daily. Indications: High Blood Pressure 07/02/2024 Senna (SENOKOT) 8.6 MG tablet Take 1 tablet (8.6 mg total) by mouth 2 (two) times daily as needed for Constipation. 08/16/2024 tamsulosin (FLOMAX) 0.4 MG CapIndications:B enign prostatic hyperplasia (BPH) suspected Take 1 capsule (0.4 mg total) by mouth daily. Indications: Benign prostatic hyperplasia (BPH) suspected 90 capsule 08/06/2024 ticagrelor (BRILINTA) 90 mg tabletIndication s:Diabetes Mellitus Take 1 tablet (90 mg total) by mouth 2 (two) times daily. Indications: Diabetes 07/02/2024 documented as of this encounter Progress Notes * Ro Carvalho RN - 08/27/2024 11:57 AM CDT 08/27/24 1156 Discharge Planning Living Arrangements Children Support Systems Children Type of Residence Private residence Assistance Needed No Patient expects to be discharged to: [facility]( SNF) Insurance Authorization needed No (Maryam/Anselmo reports no auth is required. 08/27/24) Does the patient need discharge transport arranged? Yes Type of transportation needed? Ambulance Has discharge transport been arranged? Yes What day is the transport expected? 08/27/24 What time is the transport expected? 1200 DME Needed at Discharge No Facility: Per Maryam/Anselmo [phone], the patient will not require insurance authorization and will be going to [facility] at [place] at [address] [place] [address]. SNF can accept today after 1200 pm. AVS and Physician progress note faxed to [phone]. Family: NCM in communication with the patient's daughter Delta and she is in agreement with DC to SNF today. Daughter understands that while the patient is at SNF, the facility will provide his medications through their pharmacy. Maryam reports the SNF will work with the family to create a communication board with Nepali words and associated pictures to assist with communication. Communication with Staff: Nursing report to be called to [phone] Transportation: Ambulance is booked with [facility] for 1200 pm pickup. PCS form completed and provided to [employer]. * Nicole Bills RN - 08/27/2024 11:32 AM CDT Problem: Discharge Planning Goal: Knowledge of discharge instructions Outcome: Adequate for Discharge Problem: Pain control/comfort Goal: Promote pain control/comfort 08/27/2024 1132 by Nicole Bills RN Outcome: Adequate for Discharge 08/27/2024 1026 by Nicole Bills RN Outcome: Progressing Problem: Skin integrity, Impaired-wound Goal: Absence of new skin breakdown Outcome: Adequate for Discharge Goal: Evidence of wound healing Outcome: Adequate for Discharge Problem: Skin integrity, Impaired-pressure injury/ulcer Goal: Absence of new skin breakdown Outcome: Adequate for Discharge Goal: Evidence of pressure injury/ulcer healing Outcome: Adequate for Discharge Problem: Skin integrity, at risk Goal: Absence of new skin breakdown Outcome: Adequate for Discharge Problem: Moisture associated skin impairment Goal: Reduce moisture exposure 08/27/2024 1132 by Nicole Bills RN Outcome: Adequate for Discharge 08/27/2024 1026 by Nicole Bills RN Outcome: Progressing Goal: Evidence of wound healing Outcome: Adequate for Discharge Goal: Evidence of pressure injury/ulcer healing Outcome: Adequate for Discharge Goal: Absence of new skin breakdown Outcome: Adequate for Discharge Problem: Reduced risk for falls/injury Goal: Reduced Risk for Falls/Injury 08/27/2024 1132 by Nicole Bills RN Outcome: Adequate for Discharge 08/27/2024 1026 by Nicole Bills RN Outcome: Progressing Goal: Reduced Risk of Confusion (Acute vs Chronic) Outcome: Adequate for Discharge Goal: Reduced Risk of Symptomatic Depression Outcome: Adequate for Discharge Goal: Reduced Risk of Altered Elimination Outcome: Adequate for Discharge Goal: Reduced Risk of Dizziness/Vertigo/Balance Outcome: Adequate for Discharge Goal: Reduced Risk of Polypharmacy Outcome: Adequate for Discharge Problem: Violence, self/other directed, risk of Goal: Absence of violence Outcome: Adequate for Discharge Problem: Balance Goal: STG - Pt to demonstrate static sitting balance at edge of bed Description: The patient will demonstrate static sitting balance at EOB = min/SBA x 5 minutes. Outcome: Adequate for Discharge Problem: Transfers Goal: STG - Pt will perform bed mobility Description: The patient will increase all bed mobility activities to min/mod assist x 1. Outcome: Adequate for Discharge Goal: STG - Pt will perform stand pivot transfer Description: The patient will perform stand pivot transfers to min/mod x 1. Outcome: Adequate for Discharge Problem: Aspiration - Risk of Goal: Absence of aspiration Outcome: Adequate for Discharge Problem: Mobility - Impaired Goal: Able to achieve maximum mobility level Outcome: Adequate for Discharge Problem: Mood - Altered Goal: Alleviation of anxiety Outcome: Adequate for Discharge Goal: Decrease in depressive symptoms Outcome: Adequate for Discharge Problem: THROMBOLYTIC COMPLICATION - RISK OF ANGIOEDEMA AND BLEEDING Goal: Absence of angioedema Outcome: Adequate for Discharge Goal: Absence of bleeding Outcome: Adequate for Discharge Problem: Tissue Perfusion - Cerebral, Altered Goal: Absence of continued neurologic deterioration signs and symptoms Outcome: Adequate for Discharge Problem: Verbal Communication - Impaired Goal: Effective communication Outcome: Adequate for Discharge Goal: Increased social interaction Outcome: Adequate for Discharge Problem: Discharge Planning Goal: Knowledge of discharge instructions Outcome: Adequate for Discharge Problem: Grooming Goal: STG - Pt will complete grooming tasks from a seated position with Description: SBS/MIN A VCS FOR ATTN TO THE LEFT Outcome: Adequate for Discharge Problem: Dressing: Upper Extremities Goal: STG - Pt will complete upper body dressing with Description: MOD A DELFINA TECH, VCS FOR ATTN TO LEFT Outcome: Adequate for Discharge Problem: Transfers Goal: STG - Pt will perform a bedside commode transfer with Description: MOD A Pivot/BSC Outcome: Adequate for Discharge Problem: Infection - Risk of, Urinary Catheter-Associated Urinary Tract Infection Goal: Absence of Urinary Catheter Associated Urinary Tract (UTI) Infection Signs and Symptoms 08/27/2024 1132 by Nicole Bills RN Outcome: Adequate for Discharge 08/27/2024 1026 by Nicole Bills RN Outcome: Progressing Problem: Infection - Risk of, Central Venous Catheter-Associated Bloodstream Infection Goal: Absence of Central Venous Catheter Associated Bloodstream Infection Signs and Symptoms 08/27/2024 1132 by Nicole Bills RN Outcome: Adequate for Discharge 08/27/2024 1026 by Nicole Bills RN Outcome: Progressing * Nicole Bills RN - 08/27/2024 10:27 AM CDT Problem: Pain control/comfort Goal: Promote pain control/comfort Outcome: Progressing Problem: Moisture associated skin impairment Goal: Reduce moisture exposure Outcome: Progressing Problem: Reduced risk for falls/injury Goal: Reduced Risk for Falls/Injury Outcome: Progressing Problem: Infection - Risk of, Urinary Catheter-Associated Urinary Tract Infection Goal: Absence of Urinary Catheter Associated Urinary Tract (UTI) Infection Signs and Symptoms Outcome: Progressing Problem: Infection - Risk of, Central Venous Catheter-Associated Bloodstream Infection Goal: Absence of Central Venous Catheter Associated Bloodstream Infection Signs and Symptoms Outcome: Progressing Problem: Restraint [id number]/Non-Self Destructive Behavior Goal: Absence of injury Outcome: Completed Goal: Release of restraints Outcome: Completed * Fernanda Garrett PTA - 08/27/2024 10:14 AM CDT 08/27/24 0842 Therapy Visit Ordering Provider [facility]: RN ok to see. Pt in bed with family present, pt appears more alert and agreeable to sit chair. Reason for admission DX: CVA Relevant Comorbidities/ Personal Factors to PT PMHX: BPH, dementia, HTN, unilateral inguinal hernia, CAD w/recent stenting Verified Two Patient Identifiers Yes Patient consents to therapy Yes Acute Inpatient PT Time Calculation PT Start Time 0842 PT Stop Time 0900 PT Time Calculation (min) 18 min Precautions General Precautions Bed Alarm;Chair Alarm;Fall Risk PPE Used Face mask;Gloves Instructed on Precautions No (secondary to language barrier) Other L side of body weakness with L neglect Pain Pain Patient does not offer or c/o pain Activity Tolerance Endurance Tolerates 10 - 20 min activity with rests Endurance Quality Poor Limiting Factors to Endurance Acute deconditioning;Weakness Activity Tolerance Comments Family assisted with translation throughout session. Supine to sit withmax x 1-2 with TC for technique. Pt sat EOB x 3 minutes with mod/max assist. Pt presents with posterior and mild R lateral lean and has difficulty engaging core and using R UE to maintain sitting balance. TA for repostioning of L UE. Pt transferred from bed to chair with max/TA x 2 squat pivot. Pillow placement in chair to keep trunk in midline. Cognition Overall Cognitive Status Impaired Attention Span Difficulty attending to directions Initiation Hand over hand to initiate tasks Bed Mobility Supine to Sit Max assist to left;Assist of 2 TRANSFERS Squat Pivot Transfers Max assist;Total assist;Assist of 2 Bed to Chair Max assist;Total assist;Assist of 2 Other (Comment) Oanh pad left under pt Balance Sitting - Static Mod Assist;Max Assist;Support of one upper extremity Sitting - Dynamic Max Assist;Support of one upper extremity Other (Comment) Initial mod assist and progresses to max with fatigue Exercises Short Arc Quad R LAQ x 10 reps Modified Charlotte Score Pre-Morbid (Baseline) Score 0-6 3 Interval Daily Interval Score 0-6 4 Patient/Family Training Bed Mobility x Transfer Training x Precautions x Discharge Recommendation PT Recommendation Inpatient rehab;PT at long term Facility (pending progress) PT Equipment Recommended To Be Determined Plan PT Treatments/Interventions Therapeutic Exercises;Therapeutic Activities;Neuromuscular re-education Progress Slow progress, medical status limitations PT Frequency 5 times/week If this is the last treatment note,it will serve as the discharge summary Yes End of Session End of Session Safety Chair alarm set/activated;Call light within reach;Family/friend present with patient;Nursing aware of session Interdisciplinary Collaboration RN * Kayley Neil RN - 08/26/2024 9:17 PM CDT Problem: Discharge Planning Goal: Knowledge of discharge instructions Outcome: Not Progressing Problem: Pain control/comfort Goal: Promote pain control/comfort Outcome: Not Progressing Problem: Transfers Goal: STG - Pt will perform bed mobility Description: The patient will increase all bed mobility activities to min/mod assist x 1. Outcome: Not Progressing Goal: STG - Pt will perform stand pivot transfer Description: The patient will perform stand pivot transfers to min/mod x 1. Outcome: Not Progressing Problem: Discharge Planning Goal: Knowledge of discharge instructions Outcome: Not Progressing Problem: Dressing: Upper Extremities Goal: STG - Pt will complete upper body dressing with Description: MOD A DELFINA TECH, VCS FOR ATTN TO LEFT Outcome: Not Progressing Problem: Transfers Goal: STG - Pt will perform a bedside commode transfer with Description: MOD A Pivot/BSC Outcome: Not Progressing Problem: Skin integrity, Impaired-wound Goal: Absence of new skin breakdown Outcome: Progressing Goal: Evidence of wound healing Outcome: Progressing Problem: Skin integrity, Impaired-pressure injury/ulcer Goal: Absence of new skin breakdown Outcome: Progressing Goal: Evidence of pressure injury/ulcer healing Outcome: Progressing Problem: Skin integrity, at risk Goal: Absence of new skin breakdown Outcome: Progressing Problem: Moisture associated skin impairment Goal: Reduce moisture exposure Outcome: Progressing Goal: Evidence of wound healing Outcome: Progressing Goal: Evidence of pressure injury/ulcer healing Outcome: Progressing Goal: Absence of new skin breakdown Outcome: Progressing Problem: Reduced risk for falls/injury Goal: Reduced Risk for Falls/Injury Outcome: Progressing Goal: Reduced Risk of Confusion (Acute vs Chronic) Outcome: Progressing Goal: Reduced Risk of Symptomatic Depression Outcome: Progressing Goal: Reduced Risk of Altered Elimination Outcome: Progressing Goal: Reduced Risk of Dizziness/Vertigo/Balance Outcome: Progressing Goal: Reduced Risk of Polypharmacy Outcome: Progressing Problem: Violence, self/other directed, risk of Goal: Absence of violence Outcome: Progressing Problem: Balance Goal: STG - Pt to demonstrate static sitting balance at edge of bed Description: The patient will demonstrate static sitting balance at EOB = min/SBA x 5 minutes. Outcome: Progressing Problem: Aspiration - Risk of Goal: Absence of aspiration Outcome: Progressing Problem: Mobility - Impaired Goal: Able to achieve maximum mobility level Outcome: Progressing Problem: Mood - Altered Goal: Alleviation of anxiety Outcome: Progressing Goal: Decrease in depressive symptoms Outcome: Progressing Problem: THROMBOLYTIC COMPLICATION - RISK OF ANGIOEDEMA AND BLEEDING Goal: Absence of angioedema Outcome: Progressing Goal: Absence of bleeding Outcome: Progressing Problem: Tissue Perfusion - Cerebral, Altered Goal: Absence of continued neurologic deterioration signs and symptoms Outcome: Progressing Problem: Verbal Communication - Impaired Goal: Effective communication Outcome: Progressing Goal: Increased social interaction Outcome: Progressing Problem: Grooming Goal: STG - Pt will complete grooming tasks from a seated position with Description: SBS/MIN A VCS FOR ATTN TO THE LEFT Outcome: Progressing Problem: Infection - Risk of, Urinary Catheter-Associated Urinary Tract Infection Goal: Absence of Urinary Catheter Associated Urinary Tract (UTI) Infection Signs and Symptoms Outcome: Progressing Problem: Restraint Rbr-[id number]-[id number]/Non-Self Destructive Behavior Goal: Absence of injury Outcome: Progressing Goal: Release of restraints Outcome: Progressing Problem: Infection - Risk of, Central Venous Catheter-Associated Bloodstream Infection Goal: Absence of Central Venous Catheter Associated Bloodstream Infection Signs and Symptoms Outcome: Progressing * Ro Carvalho RN - 08/26/2024 5:13 PM CDT 08/26/24 [id number] Interdisciplinary Group Conference Team Members Present Physician;Case/Care management;Nursing Patient Current Status Paient current status Inpatient Barriers to Discharge Inpatient Review Barriers to Discharge Inpatient No Barrier- Medical Milestone in Process;Other (Comment);Mobility Progression Needs Other follow up (Comment) BISCUIT MAKER today-pureed solid advanced today Liquid by gopal shaffer, max assist, updates faxed to SNF. Patient expects to be discharged to Patient expects to be discharged to: [facility]( SNF) * Davy Mittal RN - 08/26/2024 2:27 PM CDT Problem: Discharge Planning Goal: Knowledge of discharge instructions Outcome: Not Progressing Problem: Skin integrity, Impaired-wound Goal: Absence of new skin breakdown Outcome: Progressing Goal: Evidence of wound healing Outcome: Progressing Problem: Pain control/comfort Goal: Promote pain control/comfort Outcome: Not Progressing Problem: Skin integrity, Impaired-pressure injury/ulcer Goal: Absence of new skin breakdown Outcome: Progressing Goal: Evidence of pressure injury/ulcer healing Outcome: Progressing Problem: Skin integrity, at risk Goal: Absence of new skin breakdown Outcome: Progressing Problem: Moisture associated skin impairment Goal: Reduce moisture exposure Outcome: Progressing Goal: Evidence of wound healing Outcome: Progressing Goal: Evidence of pressure injury/ulcer healing Outcome: Progressing Goal: Absence of new skin breakdown Outcome: Progressing Problem: Reduced risk for falls/injury Goal: Reduced Risk for Falls/Injury Outcome: Progressing Goal: Reduced Risk of Confusion (Acute vs Chronic) Outcome: Progressing Goal: Reduced Risk of Symptomatic Depression Outcome: Progressing Goal: Reduced Risk of Altered Elimination Outcome: Progressing Goal: Reduced Risk of Dizziness/Vertigo/Balance Outcome: Progressing Goal: Reduced Risk of Polypharmacy Outcome: Progressing Problem: Violence, self/other directed, risk of Goal: Absence of violence Outcome: Progressing Problem: Balance Goal: STG - Pt to demonstrate static sitting balance at edge of bed Description: The patient will demonstrate static sitting balance at EOB = min/SBA x 5 minutes. Outcome: Progressing Problem: Balance Goal: STG - Pt to demonstrate static sitting balance at edge of bed Description: The patient will demonstrate static sitting balance at EOB = min/SBA x 5 minutes. Outcome: Progressing Problem: Transfers Goal: STG - Pt will perform bed mobility Description: The patient will increase all bed mobility activities to min/mod assist x 1. Outcome: Not Progressing Goal: STG - Pt will perform stand pivot transfer Description: The patient will perform stand pivot transfers to min/mod x 1. Outcome: Not Progressing Problem: Aspiration - Risk of Goal: Absence of aspiration Outcome: Progressing Problem: Mood - Altered Goal: Alleviation of anxiety Outcome: Progressing Goal: Decrease in depressive symptoms Outcome: Progressing Problem: THROMBOLYTIC COMPLICATION - RISK OF ANGIOEDEMA AND BLEEDING Goal: Absence of angioedema Outcome: Progressing Goal: Absence of bleeding Outcome: Progressing Problem: Tissue Perfusion - Cerebral, Altered Goal: Absence of continued neurologic deterioration signs and symptoms Outcome: Progressing Problem: Verbal Communication - Impaired Goal: Effective communication Outcome: Progressing Goal: Increased social interaction Outcome: Progressing Problem: Grooming Goal: STG - Pt will complete grooming tasks from a seated position with Description: SBS/MIN A VCS FOR ATTN TO THE LEFT Outcome: Progressing Problem: Discharge Planning Goal: Knowledge of discharge instructions Outcome: Not Progressing Problem: Dressing: Upper Extremities Goal: STG - Pt will complete upper body dressing with Description: MOD A DELFINA TECH, VCS FOR ATTN TO LEFT Outcome: Not Progressing Problem: Restraint Fzk-Qgz-[id number]/Non-Self Destructive Behavior Goal: Absence of injury Outcome: Progressing Goal: Release of restraints Outcome: Progressing Problem: Infection - Risk of, Urinary Catheter-Associated Urinary Tract Infection Goal: Absence of Urinary Catheter Associated Urinary Tract (UTI) Infection Signs and Symptoms Outcome: Progressing * Pinky Parker BISCUIT MAKER STUDENT - 08/26/2024 12:19 PM CDT SPEECH THERAPY BEDSIDE SWALLOW EVALUATION Time in: 1107 Time out: 1225 Episode of Care: Re-evaluation Date of Onset: 08/17/2024 Diagnosis: CVA Referring Physician: Dr. Padgett and Dr. Beavers (attending) Subjective: The pt was seen today for a clinical bedside swallow re-evaluation. Pt has been seen bythe department several times during his stay. Pt was last seen on 08/24/2024 after R CEA with recommendations for the pt to remain NPO due to decreased level of alertness. Today, pt is laying in bed asleep upon arrival. ST was able to wake pt but pt remained lethargic barely opening his eyes throughout the evaluation. Pt was unable to participate in orientation questions due to language barrier and decreased alertness. Objective: ORAL PHASE: Pt's oral cavity was dry but no dried oral secretions were observed. Pt was unable to participate in oral motor evaluation due to altered mental status. Pt has upper and lower dentures. Once trial involving mastication was attempted using soft-solid. Pt did not initiate mastication and had to be cued to do so. Intraoral residue was present after swallow. Residue was cleared after 2 teaspoons of thin liquid. Pt is unable to put lips around cup or suck through a straw. PHARYNGEAL PHASE: The pt was given trials of ice chips, thin liquids, puree solids, and soft-solids. The pt's swallow trigger is delayed but laryngeal elevation is noted by palpation. The pt had a delayed cough on 06/08 trials. The pt's vocal quality is wet and weak at baseline therefore this could not be assessed as a s/s of aspiration/penetration. Assessment: Pt was able to drink teaspoons of thin liquids and eat puree solids without consistent s/s of aspiration/penetration. Pt's mental status likely prevents ability to drink from cup/ straw and initiate mastication. Therefore, soft-solids and regular solids are unsafe. Plan: Recommend pt initiate puree solid, thin liquid by teaspoon only, meds crushed in puree, no straw. Skilled ST will follow-up in 1-2 business days to ensure diet tolerance and check if upgrade isappropriate. Communication completed with RNDavy and attending, Dr. Beavers. Cosigned by Deepali Thomson, BISCUIT MAKER at 08/26/2024 1:12 PM CDT * Fernanda Garrett, [employer] M[employer] TRUCK DRIVER - 08/26/2024 11:47 AM CDT 08/26/24 0915 Therapy Visit Ordering Provider [facility]: RN ok to see, reports pt with R UE restraint. Pt in bed with family present. Reason for admission DX: CVA Relevant Comorbidities/ Personal Factors to PT PMHX: BPH, dementia, HTN, unilateral inguinal hernia, CAD w/recent stenting Verified Two Patient Identifiers Yes Patient consents to therapy Yes Acute Inpatient PT Time Calculation PT Start Time 914 PT Stop Time 932 PT Time Calculation (min) 18 min Precautions General Precautions Bed Alarm;Chair Alarm;Fall Risk PPE Used Face mask;Gloves Instructed on Precautions No (secondary to language barrier) Other L side of body weakness with L neglect Pain Pain Patient does not offer or c/o pain Activity Tolerance Endurance Tolerates 10 - 20 min activity with rests Endurance Quality Poor Limiting Factors to Endurance Acute deconditioning;Weakness Activity Tolerance Comments Family assisted with translation during session. Pt appears lethargic and needs VC/TC to remain alert. Supine <-> sit with max assist. Pt sat EOB x 4 minutes with initially min/mod assist and progressed to max with fatigue. Pt presents with L inattention and R lateral lean. Cues needed to improve sitting posture. Deferred chair for safety, RN aware. Cognition Overall Cognitive Status Impaired Attention Span Difficulty attending to directions Initiation Hand over hand to initiate tasks Bed Mobility Supine to Sit Max assist to left Sit to Supine Max assist to right Other (Comment) Max x 2 for repostioning up in bed Balance Sitting - Static Min Assist;Mod Assist;Support of one upper extremity Sitting - Dynamic Mod Assist;Max Assist;Support of one upper extremity Exercises Short Arc Quad R LAQ x 10 reps Other (Comment) R shoulder ext, limited ROM. Modified Charlotte Score Pre-Morbid (Baseline) Score 0-6 3 Interval Daily Interval Score 0-6 4 Patient/Family Training Bed Mobility x Precautions x Discharge Recommendation PT Recommendation Inpatient rehab;PT at long term Facility (pending progress) PT Equipment Recommended To Be Determined Plan PT Treatments/Interventions Therapeutic Exercises;Therapeutic Activities;Neuromuscular re-education Progress Slow progress, medical status limitations PT Frequency 5 times/week If this is the last treatment note,it will serve as the discharge summary Yes End of Session End of Session Safety Bed alarm set/activated;Call light within reach;Family/friend present with patient;Nursing aware of session Interdisciplinary Collaboration RN End of Session Comment R restraint reapplied Cosigned by Jolene Babb PT at 08/26/2024 12:42 PM CDT * Perlita Beavers MD - 08/26/2024 8:52 AM CDT Hospitalist Daily Progress Note Subjective This is a 74-year-old y/o male who presents with CVA (cerebral vascular accident) ([facility]). Patient seen and examined at bedside. No acute concerns. He is calm today. No family present at bedside during my exam Objective Filed Vitals: 08/26/24 0500 08/26/24 0600 08/26/24 0700 08/26/24 0800 BP: (!) 147/71 (!) 158/72 120/65 Pulse: 74 80 78 99 Resp: 28 Temp: 98.5 ??F (36.9 ??C) TempSrc: Axillary SpO2: 99% 100% 96% 97% Weight: 60.1 kg (132 lb 7.9 oz) Height: Physical Exam: Physical Exam Vitals reviewed. Constitutional: Appearance: He is well-developed. He is not ill-appearing. Neck: Comments: Moderate, increasing bruising along right side of neck, CEA incision site c/d/i Cardiovascular: Rate and Rhythm: Normal rate and regular rhythm. Heart sounds: No murmur heard. Pulmonary: Effort: Pulmonary effort is normal. No respiratory distress. Breath sounds: Normal breath sounds. No wheezing. Abdominal: General: There is no distension. Palpations: Abdomen is soft. Tenderness: There is no abdominal tenderness. Musculoskeletal: General: No swelling. Skin: Findings: No rash. Neurological: Mental Status: He is alert. Comments: Intermittently moves L shoulder to gravity, moves L foot, L sided neglect present. Intake/Output 24H Total: Intake/Output Summary (Last 24 hours) at 08/26/2024 0852 Last data filed at 08/26/2024 0600 Gross per 24 hour Intake 495 ml Output 1550 ml Net -1055 ml Medication amLODIPine 5 mg Oral Daily aspirin 81 mg Per G Tube Daily atorvastatin 80 mg Per G Tube nightly insulin glargine 15 Units Subcutaneous Nightly at bedtime insulin lispro 0-14 Units Subcutaneous Q6H lactulose 10 g Per G Tube TID ticagrelor 90 mg Per G Tube BID PRN Meds: acetaminophen, acetaminophen, bisacodyl, cyclobenzaprine, docusate sodium, haloperidol lactate, melatonin, ondansetron Labs: Recent Results (from the past 24 hours) POCT glucose Collection Time: 08/25/24 11:18 AM Result Value Ref Range GLUCOSE POC 190 (H) 70 - 99 mg/dL POCT glucose Collection Time: 08/25/24 5:36 PM Result Value Ref Range GLUCOSE POC 187 (H) 70 - 99 mg/dL POCT glucose Collection Time: 08/25/24 11:14 PM Result Value Ref Range GLUCOSE POC 173 (H) 70 - 99 mg/dL BASIC METABOLIC PANEL Collection Time: 08/26/24 4:00 AM Result Value Ref Range GLUCOSE 167 (H) 70 - 99 MG/DL BUN 17 7 - 18 MG/DL CREATININE S/P/B 1.01 0.7 - 1.3 MG/DL SODIUM S/P/B 138 136 - 145 MMOL/L POTASSIUM S/P/B 3.6 3.5 - 5.1 MMOL/L CHLORIDE S/P/B 105 97 - 115 MMOL/L CO2 24.7 21 - 32 MMOL/L CALCIUM S/P/B 8.5 8.5 - 10.1 MG/DL ANION GAP 8.3 2 - 10 MMOL/L BUN CREATININE RATIO 16.8 6 - 26 GFR ESTIMATE 77 (L) >90 ML/MIN/1.73 M2 CBC W/DIFF AUTOMATED Collection Time: 08/26/24 4:00 AM Result Value Ref Range WBC 10.64 4.5 - 11.0 x10'3/uL RBC 3.52 (L) 4.70 - 6.10 x10'6/uL HGB 10.0 (L) 14.0 - 18.0 G/DL HCT 31.6 (L) 43.0 - 54.0 % MCV 89.8 80.0 - 94.0 FL MCH 28.4 27.0 - 31.0 PG MCHC 31.6 (L) 32.0 - 36.0 G/DL RDW 15.6 (H) 11.5 - 14.5 % PLT 216 130 - 400 x10'3/uL MPV 11.7 9.3 - 12.2 FL DIFFERENTIAL TYPE AUTOMATED DIFFERENTIAL NEUTROPHILS % 74.1 % LYMPHOCYTES % 14.0 % MONOCYTES % 10.7 % EOSINOPHILS 0.5 % BASOPHILS 0.3 % IMMATURE GRANS % 0.4 % ABS. NEUTROPHILS 7.89 (H) 1.80 - 7.70 x10'3/uL ABS. LYMPHOCYTES 1.49 1.00 - 4.80 x10'3/uL ABS. MONOCYTES 1.14 (H) 0.30 - 0.82 x10'3/uL ABS. EOSINOPHILS 0.05 0.04 - 0.54 x10'3/uL ABS. BASOPHILS 0.03 0.01 - 0.08 x10'3/uL ABS. IMMATURE GRANULOCYTES 0.04 0.00 - 0.49 x10'3/uL POCT glucose Collection Time: 08/26/24 6:17 AM Result Value Ref Range GLUCOSE POC 171 (H) 70 - 99 mg/dL X-Ray CT head wo con (08/21/24): 1. No CT evidence of an acute intracranial hemorrhage. 2. Redemonstrated focal hypodensities within the right centrum semiovale and mccann radiata regionsof the right frontoparietal lobe. Additional right temporoparietal periventricular white matter hypodensities, as evidence for evolving acute infarcts. 3. 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 4. Moderate global cerebral volume loss. B carotid dopplers (08/20/24): The right internal carotid artery shows string sign with suspicious for distal disease. The left internal shows mild calcific disease. Bilateral vertebral arteries are antegrade bilaterally. CT head wo con (08/19/24): 1. Patchy recent right hemispheric infarcts, somewhat better delineated on the prior MRI. No large hemorrhagic transformation. No midline shift. Basal cisterns patent. 2. Small vessel disease and volume loss. Echo w con (08/18/24): The left ventricular size is normal. The [...] restless during the exam. Trace aortic regurgitation. MRI Brain wo con (08/17/24): Multifocal 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 Other chronic or nonurgent findings as described above. CTA head/neck (08/17/24): 1. Complete occlusion of right ICA from [...] artery. 8. Asymmetric diminished prominence of left EMBROIDERY WORKER territory vasculature with no focal high-grade stenosis appreciated. 9. Approximately 50% stenosis at origin of left ICA. Up to 60% stenosis of left ICA 9 mm above the origin. 10. Moderate stenosis at origin of left ECA. CXR (08/17/24): 1. No convincing new acute cardiopulmonary findings. CT head wo con (08/17/24): There is a focal area of hypoattenuation in the right occipital lobe posteriorly. This may relate to an area of ischemic change. This may be acute to subacute. This is new as compared to June 22, 2023. Diffuse white matter hypoattenuating areas suspected due to chronic small vessel ischemic disease. No midline shift. Results for orders placed or performed during the hospital encounter of 08/17/24 ECG 12 lead Narrative [facility] [place] Test Date: 2024-08-17 [facility] Department: 41 Room: A422 Gender: Male Insight Director: [id number] : 1950 Requested By: DENNIS GRAZA Order Number: [id number] Reading MD: Mu Tai Measurements Intervals [place] Rate: 70 P: 49 MO: 175 QRS: -29 QRSD: 150 T: 115 QT: 442 QTc: 479 Interpretive Statements SINUS RHYTHM LEFT BUNDLE BRANCH BLOCK [120+ ms QRS DURATION, 80+ ms Q/S IN V1/V2, 85+ ms R IN I/aVL/V5/V6] Compared to ECG 06/22/2023 15:09:14 Left bundle-branch block now present T-wave abnormality no longer present Possible ischemia no longer present Other ischemic changes, not STEMI Preliminary EKG Interpretation by Dennis Garza M.D. ECG 12 lead Narrative [facility] [address] Test Date: 2024-08-21 [facility] Department: 40 Room: [id number] Gender: Male Insight Director: : 1950 Requested By: CHRISTIANO BETANCOURT Order Number: [id number] Reading MD: Kim Medina Measurements Intervals [place] Rate: 67 P: 16 MO: 169 QRS: 5 QRSD: 86 T: 142 QT: 438 QTc: 464 Interpretive Statements SINUS RHYTHM ST DEVIATION AND MODERATE T-WAVE ABNORMALITY, CONSIDER ANTEROLATERAL ISCHEMIA [-0.1+ mV T-WAVE IN V3-V6] Compared to ECG 08/17/2024 09:35:52 T-wave abnormality now present Possible ischemia now present Left bundle-branch block no longer present ECG 12 lead Narrative [facility] [address] Test Date: 2024-08-22 [facility] Department: 40 Room: [id number] Gender: Male Insight Director: : 1950 Requested By: CHRISTIANO BETANCOURT Order Number: [id number] Reading MD: Adal Pierson Measurements Intervals [place] Rate: 77 P: 25 MO: 181 QRS: 10 QRSD: 91 T: 140 QT: 397 QTc: 450 Interpretive Statements SINUS RHYTHM MODERATE T-WAVE ABNORMALITY, CONSIDER ANTEROLATERAL ISCHEMIA [-0.1+ mV T-WAVE IN V3-V6] Compared to ECG 08/21/2024 08:07:31 No significant changes ECG 12 lead Narrative [facility] [address] Test Date: 2024-08-23 Pat Name: RAMÍREZ FERNANDO Department: 40 Room: [facility] Gender: Male Insight Director: : 1950 Requested By: MU TAI Order Number: [id number] Reading MD: Abundio Singh Measurements Intervals [place] Rate: 82 P: 50 MO: 164 QRS: 11 QRSD: 142 T: 116 QT: 408 QTc: 479 Interpretive Statements SINUS RHYTHM LEFT BUNDLE BRANCH BLOCK [120+ ms QRS DURATION, 80+ ms Q/S IN V1/V2, 85+ ms R IN I/aVL/V5/V6] Compared to ECG 08/22/2024 16:09:50 Left bundle-branch block now present T-wave abnormality no longer present Possible ischemia no longer present Assessment/Plan: Carotid stenosis CTA head/neck with complete occlusion of right ICA from 8 to 16 mm above its origin with reconstitution of the vessel more distally with decreased volume and opacity from the contralateral side. R ICA with string sign - concern for distal disease Vascular surgery consulted, appreciate recs. After discussion with Dr. Matthews of neurology and Dr. Padgett of vascular surgery, patient may benefit from R CEA. Heparin gtt initiated - monitoring in ICU given high risk of bleed. CT head after heparin gtt initiated with no evidence of bleed. Continue neurochecks q4 and close monitoring by ICU staff. S/p right CEA on 08/23 Noted to have increased bruising along right side of neck. Hgb stable. Vascular surgery aware and following. Continue to monitor Acute on chronic encephalopathy Recent CVA Patient presented to the hospital after being unresponsive since the night prior to admission. L side flaccid with dysphagia since recent CVA on 08/12. UA neg LE/nitrites Troponin WNL Lipid panel WNL CT head with focal area of hypoattenuation in the right occipital lobe posteriorly CTA head/neck with multiple areas of occlusion - ER reviewed with interventional neurology who feltno indication for intervention. Echo with bubble with no thrombus or PFO. Brain MRI with multifocal acute infarcts, however suspect likely similar to the MRI done at [place] - only able to compare reports and not imaging. Repeat CT head with recent R hemispheric infarcts - no hemorrhagic transformation. Since admission, mental status waxes/wanes with periods of unresponsiveness. Neurology consulted, appreciate assistance. CTA heart reviewed by Dr. Casiano of cardiology - no left atrial appendage thrombus, no significant ascending aortic calcification. No need for LEO per cards. Started on precedex gtt due to intermittent agitation. Weaned off on 08/23 CM consulted for assistance with rehab on dc. Did not pass initial BISCUIT MAKER eval Dobhoff placed for short term meds, then pulled by patient Repeat BISCUIT MAKER eval today- pureed solids, thin liquid by teaspoon only. BISCUIT MAKER to reevaluate in 1-2 days. Sedation induced hypotension Secondary to Precedex gtt. Levophed gtt. Weaned off precedex gtt on 08/23 Restarted low dose levophed then weaned off on 08/24 Monitor MAPs Resolved Hypertension BPs elevated on admission. Initially holding Toprol XL, Norvasc with hypotension as above. BP now improved off levophed Resume norvasc. Resume metoprolol at lower dose to start Dementia with agitation Patient intermittently confused and tries to get out of bed. Redirection is difficult due to aphasia and language barrier. Ativan/Xanax/Haldol have caused severe somnolence. Will request family to stay with him as much as possible. Precedex discontinued. Monitor Hypokalemia K down to 2.6. Mag wnl. Replaced and resolved. ELOISE Creatinine 1.4, previous 0.8 in June 2024 IVF Resolved. RLE pain Appears to have ecchymosis on the back of the leg - family/patient unaware of how he got this.. Suspect traumatic Trial of low dose muscle relaxant. Resolved. Cardiomyopathy No evidence of fluid overload. Echo with EF 40-45%. No change from prior echo at [facility] from 07/12/24. Not on any diuretics. Resuming BB at lower dose CAD Recently had stents X2 placed in June 2024 at [facility] ASA/brilinta DM2 Glucose increasing. Accu-Cheks QAC/HS Increased lantus to 15 uqhs SSI Monitor/adjust insulin as needed. Constipation Has had issues of severe constipation in the past. Continue home lactulose as able BPH Continue Flomax. Malnutrition Classification: Moderate Malnutrition Moderate malnutrition associated with starvation related to oral health limitations secondary to dysphagia as evidenced by unintended weight loss of 10.3% in 6 months, mild-moderate fat loss noted inthe following areas: orbital and buccal, and mild-moderate muscle loss noted in the following areas: temples, clavicle, acromion and patella. Dietitian following SDOH Readmission, speaks Nepali. DVT Prophylaxis Heparin subcu Code status FULL Surrogate decision maker/POA: SonGladys along with his other children Perlita Beavers MD 08/26/2024 8:52 AM * Cammie Barclay RN - 08/25/2024 10:08 PM CDT Problem: Pain control/comfort Goal: Promote pain control/comfort Outcome: Progressing Problem: Skin integrity, Impaired-wound Goal: Absence of new skin breakdown Outcome: Progressing Goal: Evidence of wound healing Outcome: Progressing Problem: Skin integrity, Impaired-pressure injury/ulcer Goal: Absence of new skin breakdown Outcome: Progressing Goal: Evidence of pressure injury/ulcer healing Outcome: Progressing Problem: Skin integrity, at risk Goal: Absence of new skin breakdown Outcome: Progressing Problem: Moisture associated skin impairment Goal: Reduce moisture exposure Outcome: Progressing Goal: Evidence of wound healing Outcome: Progressing Goal: Evidence of pressure injury/ulcer healing Outcome: Progressing Goal: Absence of new skin breakdown Outcome: Progressing Problem: Reduced risk for falls/injury Goal: Reduced Risk for Falls/Injury Outcome: Progressing Goal: Reduced Risk of Confusion (Acute vs Chronic) Outcome: Progressing Goal: Reduced Risk of Symptomatic Depression Outcome: Progressing Goal: Reduced Risk of Altered Elimination Outcome: Progressing Goal: Reduced Risk of Dizziness/Vertigo/Balance Outcome: Progressing Goal: Reduced Risk of Polypharmacy Outcome: Progressing Problem: Violence, self/other directed, risk of Goal: Absence of violence Outcome: Progressing Problem: Aspiration - Risk of Goal: Absence of aspiration Outcome: Progressing Problem: Mobility - Impaired Goal: Able to achieve maximum mobility level Outcome: Progressing Problem: THROMBOLYTIC COMPLICATION - RISK OF ANGIOEDEMA AND BLEEDING Goal: Absence of angioedema Outcome: Progressing Goal: Absence of bleeding Outcome: Progressing Problem: Tissue Perfusion - Cerebral, Altered Goal: Absence of continued neurologic deterioration signs and symptoms Outcome: Progressing Problem: Verbal Communication - Impaired Goal: Effective communication Outcome: Progressing Goal: Increased social interaction Outcome: Progressing Problem: Discharge Planning Goal: Knowledge of discharge instructions Outcome: Progressing Problem: Grooming Goal: STG - Pt will complete grooming tasks from a seated position with Description: SBS/MIN A VCS FOR ATTN TO THE LEFT Outcome: Progressing Problem: Dressing: Upper Extremities Goal: STG - Pt will complete upper body dressing with Description: MOD A DELFINA TECH, VCS FOR ATTN TO LEFT Outcome: Progressing Problem: Transfers Goal: STG - Pt will perform a bedside commode transfer with Description: MOD A Pivot/BSC Outcome: Progressing Problem: Infection - Risk of, Urinary Catheter-Associated Urinary Tract Infection Goal: Absence of Urinary Catheter Associated Urinary Tract (UTI) Infection Signs and Symptoms Outcome: Progressing Problem: Restraint Bbz-[id number]/Non-Self Destructive Behavior Goal: Absence of injury Outcome: Progressing Goal: Release of restraints Outcome: Progressing Problem: Infection - Risk of, Central Venous Catheter-Associated Bloodstream Infection Goal: Absence of Central Venous Catheter Associated Bloodstream Infection Signs and Symptoms Outcome: Progressing Problem: Discharge Planning Goal: Knowledge of discharge instructions Outcome: Not Met Problem: Balance Goal: STG - Pt to demonstrate static sitting balance at edge of bed Description: The patient will demonstrate static sitting balance at EOB = min/SBA x 5 minutes. Outcome: Not Progressing Problem: Transfers Goal: STG - Pt will perform bed mobility Description: The patient will increase all bed mobility activities to min/mod assist x 1. Outcome: Not Progressing Goal: STG - Pt will perform stand pivot transfer Description: The patient will perform stand pivot transfers to min/mod x 1. Outcome: Not Progressing Problem: Mood - Altered Goal: Alleviation of anxiety Outcome: Not Progressing Goal: Decrease in depressive symptoms Outcome: Not Progressing * Shanell Beck RN - 08/25/2024 4:22 PM CDT Problem: Discharge Planning Goal: Knowledge of discharge instructions Outcome: Progressing Problem: Pain control/comfort Goal: Promote pain control/comfort Outcome: Progressing Problem: Skin integrity, Impaired-wound Goal: Absence of new skin breakdown Outcome: Progressing Goal: Evidence of wound healing Outcome: Progressing Problem: Skin integrity, Impaired-pressure injury/ulcer Goal: Absence of new skin breakdown Outcome: Progressing Goal: Evidence of pressure injury/ulcer healing Outcome: Progressing Problem: Skin integrity, at risk Goal: Absence of new skin breakdown Outcome: Progressing Problem: Moisture associated skin impairment Goal: Reduce moisture exposure Outcome: Progressing Goal: Evidence of wound healing Outcome: Progressing Goal: Evidence of pressure injury/ulcer healing Outcome: Progressing Goal: Absence of new skin breakdown Outcome: Progressing Problem: Reduced risk for falls/injury Goal: Reduced Risk for Falls/Injury Outcome: Progressing Goal: Reduced Risk of Confusion (Acute vs Chronic) Outcome: Progressing Goal: Reduced Risk of Symptomatic Depression Outcome: Progressing Goal: Reduced Risk of Altered Elimination Outcome: Progressing Goal: Reduced Risk of Dizziness/Vertigo/Balance Outcome: Progressing Goal: Reduced Risk of Polypharmacy Outcome: Progressing Problem: Violence, self/other directed, risk of Goal: Absence of violence Outcome: Progressing * Perlita Beavers MD - 08/25/2024 8:05 AM CDT Hospitalist Daily Progress Note Subjective This is a 74-year-old y/o male who presents with CVA (cerebral vascular accident) ([facility]). Patient seen and examined at bedside. No acute concerns. He is more calm today. Dobhoff placed No family present at bedside during my exam Objective Filed Vitals: 08/25/24 0200 08/25/24 0300 08/25/24 0400 08/25/24 0600 BP: (!) 142/72 (!) 141/66 (!) 147/65 (!) 145/66 Pulse: 95 86 83 92 Resp: 21 21 19 22 Temp: TempSrc: SpO2: 97% 97% 94% 95% Weight: Height: Physical Exam: Physical Exam Vitals reviewed. Constitutional: Appearance: He is well-developed. He is not ill-appearing. Cardiovascular: Rate and Rhythm: Normal rate and regular rhythm. Heart sounds: No murmur heard. Pulmonary: Effort: Pulmonary effort is normal. No respiratory distress. Breath sounds: Normal breath sounds. No wheezing. Abdominal: General: There is no distension. Palpations: Abdomen is soft. Tenderness: There is no abdominal tenderness. Musculoskeletal: General: No swelling. Skin: Findings: No rash. Neurological: Mental Status: He is alert. Comments: Intermittently moves L shoulder to gravity, moves L foot, L sided neglect present. Intake/Output 24H Total: Intake/Output Summary (Last 24 hours) at 08/25/2024 0805 Last data filed at 08/25/2024 0600 Gross per 24 hour Intake 0 ml Output 1255 ml Net -1255 ml Medication aspirin 81 mg Oral Daily atorvastatin 80 mg Oral nightly insulin glargine 15 Units Subcutaneous Nightly at bedtime insulin lispro 0-14 Units Subcutaneous TID AC And insulin lispro 0-7 Units Subcutaneous Nightly at bedtime lactulose 10 g Oral TID ticagrelor 90 mg Oral BID PRN Meds: acetaminophen, acetaminophen, bisacodyl, cyclobenzaprine, docusate sodium, haloperidol lactate, melatonin, ondansetron Labs: Recent Results (from the past 24 hours) POCT glucose Collection Time: 08/24/24 11:44 AM Result Value Ref Range GLUCOSE POC 220 (H) 70 - 99 mg/dL POCT glucose Collection Time: 08/24/24 4:47 PM Result Value Ref Range GLUCOSE POC 194 (H) 70 - 99 mg/dL POCT glucose Collection Time: 08/24/24 9:37 PM Result Value Ref Range GLUCOSE POC 161 (H) 70 - 99 mg/dL BASIC METABOLIC PANEL Collection Time: 08/25/24 2:58 AM Result Value Ref Range GLUCOSE 176 (H) 70 - 99 MG/DL BUN 20 (H) 7 - 18 MG/DL CREATININE S/P/B 1.22 0.7 - 1.3 MG/DL SODIUM S/P/B 139 136 - 145 MMOL/L POTASSIUM S/P/B 3.9 3.5 - 5.1 MMOL/L CHLORIDE S/P/B 106 97 - 115 MMOL/L CO2 26.3 21 - 32 MMOL/L CALCIUM S/P/B 8.6 8.5 - 10.1 MG/DL ANION GAP 6.7 2 - 10 MMOL/L BUN CREATININE RATIO 16.4 6 - 26 GFR ESTIMATE 61 (L) >90 ML/MIN/1.73 M2 CBC W/DIFF AUTOMATED Collection Time: 08/25/24 2:58 AM Result Value Ref Range WBC 8.46 4.5 - 11.0 x10'3/uL RBC 3.33 (L) 4.70 - 6.10 x10'6/uL HGB 9.6 (L) 14.0 - 18.0 G/DL HCT 30.2 (L) 43.0 - 54.0 % MCV 90.7 80.0 - 94.0 FL MCH 28.8 27.0 - 31.0 PG MCHC 31.8 (L) 32.0 - 36.0 G/DL RDW 15.7 (H) 11.5 - 14.5 % PLT 202 130 - 400 x10'3/uL MPV 11.3 9.3 - 12.2 FL DIFFERENTIAL TYPE AUTOMATED DIFFERENTIAL NEUTROPHILS % 65.3 % LYMPHOCYTES % 20.6 % MONOCYTES % 12.4 % EOSINOPHILS 0.8 % BASOPHILS 0.5 % IMMATURE GRANS % 0.4 % ABS. NEUTROPHILS 5.53 1.80 - 7.70 x10'3/uL ABS. LYMPHOCYTES 1.74 1.00 - 4.80 x10'3/uL ABS. MONOCYTES 1.05 (H) 0.30 - 0.82 x10'3/uL ABS. EOSINOPHILS 0.07 0.04 - 0.54 x10'3/uL ABS. BASOPHILS 0.04 0.01 - 0.08 x10'3/uL ABS. IMMATURE GRANULOCYTES 0.03 0.00 - 0.49 x10'3/uL POCT glucose Collection Time: 08/25/24 6:33 AM Result Value Ref Range GLUCOSE POC 175 (H) 70 - 99 mg/dL X-Ray CT head wo con (08/21/24): 1. No CT evidence of an acute intracranial hemorrhage. 2. Redemonstrated focal hypodensities within the right centrum semiovale and mccann radiata regionsof the right frontoparietal lobe. Additional right temporoparietal periventricular white matter hypodensities, as evidence for evolving acute infarcts. 3. 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 4. Moderate global cerebral volume loss. B carotid dopplers (08/20/24): The right internal carotid artery shows string sign with suspicious for distal disease. The left internal shows mild calcific disease. Bilateral vertebral arteries are antegrade bilaterally. CT head wo con (08/19/24): 1. Patchy recent right hemispheric infarcts, somewhat better delineated on the prior MRI. No large hemorrhagic transformation. No midline shift. Basal cisterns patent. 2. Small vessel disease and volume loss. Echo w con (08/18/24): The left ventricular size is normal. The [...] restless during the exam. Trace aortic regurgitation. MRI Brain wo con (08/17/24): Multifocal 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 Other chronic or nonurgent findings as described above. CTA head/neck (08/17/24): 1. Complete occlusion of right ICA from [...] artery. 8. Asymmetric diminished prominence of left EMBROIDERY WORKER territory vasculature with no focal high-grade stenosis appreciated. 9. Approximately 50% stenosis at origin of left ICA. Up to 60% stenosis of left ICA 9 mm above the origin. 10. Moderate stenosis at origin of left ECA. CXR (08/17/24): 1. No convincing new acute cardiopulmonary findings. CT head wo con (08/17/24): There is a focal area of hypoattenuation in the right occipital lobe posteriorly. This may relate to an area of ischemic change. This may be acute to subacute. This is new as compared to June 22, 2023. Diffuse white matter hypoattenuating areas suspected due to chronic small vessel ischemic disease. No midline shift. Results for orders placed or performed during the hospital encounter of 08/17/24 ECG 12 lead Narrative [facility] [address] Test Date: 2024-08-17 Pat Name: RAMÍREZ COELLOZarina Department: 41 Room: [id number] Gender: Male Insight Director: [id number] : 1950 Requested By: DENNIS GARZA Order Number: [id number] Reading MD: Mu Tai Measurements Intervals [place] Rate: 70 P: 49 MO: 175 QRS: -29 QRSD: 150 T: 115 QT: 442 QTc: 479 Interpretive Statements SINUS RHYTHM LEFT BUNDLE BRANCH BLOCK [120+ ms QRS DURATION, 80+ ms Q/S IN V1/V2, 85+ ms R IN I/aVL/V5/V6] Compared to ECG 06/22/2023 15:09:14 Left bundle-branch block now present T-wave abnormality no longer present Possible ischemia no longer present Other ischemic changes, not STEMI Preliminary EKG Interpretation by Dennis Garza M.D. ECG 12 lead Narrative [facility] [address] Test Date: 2024-08-21 Pat Name: RAMÍREZ COELLOZarina Department: 40 Room: [id number] Gender: Male Insight Director: : 1950 Requested By: CHRISTIANO BETANCOURT Order Number: [id number] Reading MD: Kim Medina Measurements Intervals [place] Rate: 67 P: 16 MO: 169 QRS: 5 QRSD: 86 T: 142 QT: 438 QTc: 464 Interpretive Statements SINUS RHYTHM ST DEVIATION AND MODERATE T-WAVE ABNORMALITY, CONSIDER ANTEROLATERAL ISCHEMIA [-0.1+ mV T-WAVE IN V3-V6] Compared to ECG 08/17/2024 09:35:52 T-wave abnormality now present Possible ischemia now present Left bundle-branch block no longer present ECG 12 lead Narrative [facility] [place] [address] [facility] Test Date: 2024-08-22 Pat Name: [facility] Department: 40 Room: [id number] Gender: Male Insight Director: : 1950 Requested By: CHRISTIANO BETANCOURT Order Number: [id number] Reading MD: Adal Pierson Measurements Intervals [place] Rate: 77 P: 25 MO: 181 QRS: 10 QRSD: 91 T: 140 QT: 397 QTc: 450 Interpretive Statements SINUS RHYTHM MODERATE T-WAVE ABNORMALITY, CONSIDER ANTEROLATERAL ISCHEMIA [-0.1+ mV T-WAVE IN V3-V6] Compared to ECG 08/21/2024 08:07:31 No significant changes ECG 12 lead Narrative [facility] [place] [address] [facility] Test Date: 2024-08-23 Pat Name: [facility] Department: 40 Room: [facility] Gender: Male Insight Director: : 1950 Requested By: MU TAI Order Number: [id number] Reading MD: Abundio Singh Measurements Intervals [place] Rate: 82 P: 50 MO: 164 QRS: 11 QRSD: 142 T: 116 QT: 408 QTc: 479 Interpretive Statements SINUS RHYTHM LEFT BUNDLE BRANCH BLOCK [120+ ms QRS DURATION, 80+ ms Q/S IN V1/V2, 85+ ms R IN I/aVL/V5/V6] Compared to ECG 08/22/2024 16:09:50 Left bundle-branch block now present T-wave abnormality no longer present Possible ischemia no longer present Assessment/Plan: Carotid stenosis CTA head/neck with complete occlusion of right ICA from 8 to 16 mm above its origin with reconstitution of the vessel more distally with decreased volume and opacity from the contralateral side. R ICA with string sign - concern for distal disease Vascular surgery consulted, appreciate recs. After discussion with Dr. Matthews of neurology and Dr. Padgett of vascular surgery, patient may benefit from R CEA. Heparin gtt initiated - monitoring in ICU given high risk of bleed. CT head after heparin gtt initiated with no evidence of bleed. Continue neurochecks q4 and close monitoring by ICU staff. S/p right CEA on 08/23 Acute on chronic encephalopathy Recent CVA Patient presented to the hospital after being unresponsive since the night prior to admission. L side flaccid with dysphagia since recent CVA on 08/12. UA neg LE/nitrites Troponin WNL Lipid panel WNL CT head with focal area of hypoattenuation in the right occipital lobe posteriorly CTA head/neck with multiple areas of occlusion - ER reviewed with interventional neurology who feltno indication for intervention. Echo with bubble with no thrombus or PFO. Brain MRI with multifocal acute infarcts, however suspect likely similar to the MRI done at [place] - only able to compare reports and not imaging. Repeat CT head with recent R hemispheric infarcts - no hemorrhagic transformation. Since admission, mental status waxes/wanes with periods of unresponsiveness. Neurology consulted, appreciate assistance. CTA heart reviewed by Dr. Casiano of cardiology - no left atrial appendage thrombus, no significant ascending aortic calcification. No need for LEO per cards. Started on precedex gtt due to intermittent agitation. Weaned off on 08/23 CM consulted for assistance with rehab on dc. Did not pass BISCUIT MAKER eval- repeat eval tmrw Dobhoff for short term PO meds Sedation induced hypotension Secondary to Precedex gtt. Levophed gtt. Weaned off precedex gtt on 08/23 Restarted low dose levophed then weaned off on 08/24 Monitor MAPs Hypertension BPs elevated on admission. Initially holding Toprol XL, Norvasc with hypotension as above. BP now improved off levophed Resume norvasc to start Dementia with agitation Patient intermittently confused and tries to get out of bed. Redirection is difficult due to aphasia and language barrier. Ativan/Xanax/Haldol have caused severe somnolence. Will request family to stay with him as much as possible. Precedex discontinued. Monitor Hypokalemia K down to 2.6. Mag wnl. Replaced and resolved. ELOISE Creatinine 1.4, previous 0.8 in June 2024 IVF Resolved. RLE pain Appears to have ecchymosis on the back of the leg - family/patient unaware of how he got this.. Suspect traumatic Trial of low dose muscle relaxant. Resolved. Cardiomyopathy No evidence of fluid overload. Echo with EF 40-45%. No change from prior echo at [facility] from 07/12/24. Consider resuming home BB pending pressures Not on any diuretics. CAD Recently had stents X2 placed in June 2024 at [facility] ASA/brilinta DM2 Glucose increasing. Restarted home Lantus 6 units QHS Accu-Cheks QAC/HS Increased lantus to 10 uqhs SSI Monitor/adjust insulin as needed. Constipation Has had issues of severe constipation in the past. Continue home lactulose as able BPH Continue Flomax. Malnutrition Classification: Moderate Malnutrition Moderate malnutrition associated with starvation related to oral health limitations secondary to dysphagia as evidenced by unintended weight loss of 10.3% in 6 months, mild-moderate fat loss noted inthe following areas: orbital and buccal, and mild-moderate muscle loss noted in the following areas: temples, clavicle, acromion and patella. Dietitian following SDOH Readmission, speaks Nepali. DVT Prophylaxis Heparin subcu Code status FULL Surrogate decision maker/POA: SonGladys along with his other children Perlita Beavers MD 08/25/2024 8:05 AM * Geoffrey Meier DO - 08/25/2024 5:22 AM CDT Digital Content Producer Daily Progress Note History of Present Illness Hospital course thus far is as follows: Ramírez Fernando is a 74-year-old male with pmh of CAD (stent placement x2 on 06/2024), DM2, BPH, HTN, CVA (08/12/24), recently admitted to [facility] on 08/12 for acute infarcts and discharged home, presented with complaints of severe lethargy. According to his son, the patient was given a dose of 0.25 mg Xanax and his blood pressure medications on 08/16. The son was unable to arouse him later that night to assist with going to the bathroom. The patient remained lethargic, prompting his family to call EMS. Upon arrival, the patient was more alert and responsive to questions. The left side is flaccid, and the patient moves the right side without difficulty. The patient speaks Nepali, and his daughter & son, who are fluent in Montenegrin, are acting as translators. 08/24 - No acute events overnight. S/P right CEA yesterday. Precedex weaned, now off. Remains on lowdose Levophed. Somnolent this AM but no airway concerns. Right neck with significant erythema and some swelling, stable per overnight team. Will defer imaging unless it worsens. 08/25 - No acute events overnight. Stable off pressors. Dobhoff able to be placed. Physical Exam Filed Vitals: 08/25/24 0100 08/25/24 0200 08/25/24 0300 08/25/24 0400 BP: (!) 144/73 (!) 142/72 (!) 141/66 (!) 147/65 Pulse: 79 95 86 83 Resp: 20 21 21 19 Temp: TempSrc: SpO2: 94% 97% 97% 94% Weight: Height: I/O last 3 completed shifts: In: 222.6 [I.V.:122.6; IV Piggyback:100] Out: 1086 [Urine:1060; Drains:26] Physical Exam: Physical Exam Constitutional: General: He is not in acute distress. HENT: Head: Normocephalic and atraumatic. Eyes: Pupils: Pupils are equal, round, and reactive to light. Cardiovascular: Rate and Rhythm: Normal rate and regular rhythm. Pulses: Normal pulses. Heart sounds: Normal heart sounds. Pulmonary: Breath sounds: Normal breath sounds. Abdominal: General: There is no distension. Palpations: Abdomen is soft. Musculoskeletal: Right lower leg: No edema. Left lower leg: No edema. Skin: General: Skin is warm and dry. Findings: Erythema and rash present. Neurological: Comments: Weak left upper/lower extremities Data: Recent Labs Lab 08/23/24 1848 08/24/24 0400 08/25/24 0258 WBC 8.49 13.52* 8.46 RBC 3.59* 3.55* 3.33* HGB 10.2* 9.9* 9.6* HCT 32.4* 31.5* 30.2* MCV 90.3 88.7 90.7 MCH 28.4 27.9 28.8 MCHC 31.5* 31.4* 31.8* PLT 168 254 202 RDW 15.0* 15.3* 15.7* MPV 12.6* 11.8 11.3 Recent Labs Lab 08/23/24 0400 08/24/24 0400 08/25/24 0258 NA 138 139 139 K 3.9 4.4 3.9 CL 106 108 106 CO2 26.3 22.6 26.3 AGAP 5.7 8.4 6.7 BUN 28* 23* 20* CR 1.13 1.27 1.22 BUNCREATININ 24.8 18.1 16.4 GLU 238* 261* 176* CA 8.3* 8.1* 8.6 No results for input(s): TP , ALB , TBIL , ALKP , AST , ALT in the last 168 hours. Recent Labs Lab 08/20/24 1800 INR 0.9 Recent Labs Lab 08/21/24 0840 08/22/24 1613 08/23/24 0400 TROP 55 37 50 No results for input(s): LACTICACID , PROCT in the last 168 hours. No results for input(s): PH , PCO2 , PO2 , [id number] , BICARBWB , BASEDEFICIT , BASEEXCESS in the last 168 hours. Imaging: CT head 08/21 IMPRESSION: 1. No CT evidence of an acute intracranial hemorrhage. 2. Redemonstrated focal hypodensities within the right centrum semiovale and mccann radiata regionsof the right frontoparietal lobe. Additional right temporoparietal periventricular white matter hypodensities, as evidence for evolving acute infarcts. 3. 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 4. Moderate global cerebral volume loss. CTA heart with 3D imagine Pending read TTE 08/17 ++++++++++++++++++++++++++++++++++++ SUMMARY: ++++++++++++++++++++++++++++++++++++ The left ventricular size [...] restless during the exam. Trace aortic regurgitation. 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 Has not needed Precedex. -Stable off of pressors -Consider restarted home BB as BP's remain stable -High dose statin -No respiratory concerns at this time -NPO, failed BISCUIT MAKER eval. Dobhoff placed. Will start TF's today. -Lactulose for constipation -Follow UOP, electrolytes -H/H stable -Anti-PLT per vascular -Glucose elevated, Lantus + SSI. Glucose better controlled. -Supportive Care Nutrition: NPO DVT prophylaxis: Per vascular, SCDs GI prophylaxis: NA IV access: PIV, midline Tubes: neck drain, Joiner Activity: bed rest Family discussion: Updated by nursing Code status: Full Code Patient has no current ICU needs. ICU team will sign off. Geoffrey Meier DO 08/25/24 5:22 AM * Nando Powell RN - 08/25/2024 2:13 AM CDT Problem: Pain control/comfort Goal: Promote pain control/comfort Outcome: Met This Shift Problem: Skin integrity, Impaired-wound Goal: Absence of new skin breakdown Outcome: Met This Shift Problem: Skin integrity, Impaired-pressure injury/ulcer Goal: Absence of new skin breakdown Outcome: Met This Shift Problem: Moisture associated skin impairment Goal: Reduce moisture exposure Outcome: Met This Shift Goal: Evidence of wound healing Outcome: Met This Shift Problem: Reduced risk for falls/injury Goal: Reduced Risk for Falls/Injury Outcome: Met This Shift Goal: Reduced Risk of Confusion (Acute vs Chronic) Outcome: Met This Shift Problem: Violence, self/other directed, risk of Goal: Absence of violence Outcome: Met This Shift Problem: Mood - Altered Goal: Alleviation of anxiety Outcome: Met This Shift Problem: Infection - Risk of, Urinary Catheter-Associated Urinary Tract Infection Goal: Absence of Urinary Catheter Associated Urinary Tract (UTI) Infection Signs and Symptoms Outcome: Met This Shift Problem: Restraint Bfj-Czk-szblovq/Non-Self Destructive Behavior Goal: Absence of injury Outcome: Met This Shift Goal: Release of restraints Outcome: Met This Shift Problem: Infection - Risk of, Central Venous Catheter-Associated Bloodstream Infection Goal: Absence of Central Venous Catheter Associated Bloodstream Infection Signs and Symptoms Outcome: Met This Shift Nursing interventions implemented to prevent and manage delirium as appropriate. Communication board updated, Quiet Hours enforced , Monitors: volume decreased or on sleep mode, Curtain closed and/orlights off, TV/music off, and Door closed. * CONNIE Cho - 08/24/2024 12:39 PM CDT Department of Speech-Language Pathology Clinical Swallow Evaluation Report Episode of Care: Follow-up evaluation Diagnosis: CVA Referring Physician: Jeanmarie Padgett MD Subjective: Pt is a 74-year-old male re-referred to speech therapy services for a bedside swallow evaluation following a R carotid endarterectomy surgery (08/23) and a failed RN bedside swallow exam. Pt's daughter was present and was hourly sign language interpreter for the evaluation, as they declined the use of hourly sign language interpreter services provided by the facility. Pt was unable to follow simple commands, and was not awake or alert during time of the evaluation. He did open one eye on two occasions, but quickly closed it. Past Medical History: Diagnosis Date BPH (benign prostatic hyperplasia) Constipation Dementia without behavioral disturbance ([facility]) suspected underlying Diabetes mellitus ([facility]) History of colonoscopy 04/13/2024 Hydroureteronephrosis Hypertension Other specified noninfective gastroenteritis and colitis Proctitis Renal cyst Unilateral inguinal hernia, without obstruction or gangrene, not specified as recurrent 12/20/2021 Urinary retention Objective: Pt's oral cavity and lips appeared dry with some presence of dried secretions. A moistened swab was utilized to help remove said secretions. Pt observed to have significant bruising and edema around incision sight on R side of neck. No thin liquid or solids trials were attempted at this date, as pt was unable to follow simple commands to complete the evaluation. Assessment: Given pt's significantly decreased level of alertness at this date, recent R CEA surgery (08/23/24), and known hx of CVA (08/12/24), pt is suspected to be at an elevated risk of aspiration/penetration at this time; and therefore, oral intake is unsafe. Plan: Recommend pt remain NPO at this time. Moistened swabs are ok. Skilled ST to follow-up in 1-2 business days to reassess as pt's medical status changes. Thank you. * Maryuri Casiano MD - 08/24/2024 11:04 AM CDT Images from the original note were not included. [place], [place] [address] Cardiology Consult PCP: DONAVON CONNOR MD Interval History S/p R CEA yesterday. Precedex weaned. On Levophed. Awake but sleepy this morning Past Medical History: Diagnosis Date BPH (benign prostatic hyperplasia) Constipation Dementia without behavioral disturbance ([facility]) suspected underlying Diabetes mellitus ([facility]) History of colonoscopy 04/13/2024 Hydroureteronephrosis Hypertension Other specified noninfective gastroenteritis and colitis Proctitis Renal cyst Unilateral inguinal hernia, without obstruction or gangrene, not specified as recurrent 12/20/2021 Urinary retention Past Surgical History: Procedure Laterality Date COLONOSCOPY N/A 04/13/2024 COLONOSCOPY WITH CECAL POLYPECTOMY VIA COLD SNARE performed by Bobby Quiñonez MD at [facility] DRAIN SKIN ABSCESS SIMPLE LITHOTRIPSY Social History Tobacco Use Smoking status: Never Passive exposure: Never Smokeless tobacco: Never Vaping Use Vaping status: Never Used Substance Use Topics Alcohol use: Not Currently Drug use: Not Currently No family history on file. aspirin 81 mg Oral Daily atorvastatin 80 mg Oral nightly insulin glargine 15 Units Subcutaneous Nightly at bedtime insulin lispro 0-14 Units Subcutaneous TID AC And insulin lispro 0-7 Units Subcutaneous Nightly at bedtime lactulose 10 g Oral TID ticagrelor 90 mg Oral BID norepinephrine 4 mcg/min (08/24/24 0851) acetaminophen, acetaminophen, bisacodyl, cyclobenzaprine, docusate sodium, haloperidol lactate, melatonin, ondansetron Prior to Admission medications Medication Sig Start Date End Date Taking? Authorizing Provider ALPRAZolam (XANAX) 0.25 MG tablet Take 1 tablet (0.25 mg total) by mouth 3 (three) times daily as needed for Anxiety. 08/15/24 Yes Donavon Connor MD amLODIPine (NORVASC) 5 MG tablet Take 1 tablet (5 mg total) by mouth daily. Indications: High BloodPressure 08/12/24 Yes Donavon Connor MD aspirin 81 MG chewable tablet Chew 1 tablet (81 mg total) by mouth daily. Indications: PreventativeTreatment 07/02/24 Yes Doc [facility] atorvastatin (LIPITOR) 80 MG tablet Take 1 tablet (80 mg total) by mouth daily. Indications: High Amount of Chloride in the Blood 07/02/24 Yes Doc [facility] Abstract insulin glargine (LANTUS) 100 UNIT/ML injection (VIAL) Indications: Diabetes ADMINISTER 9 UNITS UNDER THE SKIN EVERY MORNING Patient taking differently: Inject 6 Units into the skin nightly at bedtime. Indications: Diabetes 06/24/24 Yes Donavon Connor MD lactulose (ENULOSE) 10 GM/15ML solution TAKE 30 ML BY MOUTH THREE TIMES DAILY FOR CONSTIPATION 07/29/24 Yes Donavon Connor MD metoprolol succinate ER (TOPROL-XL) 50 MG 24 hr tablet Take 1 tablet (50 mg total) by mouth daily. Indications: High Blood Pressure 07/02/24 Yes Doc [facility] tamsulosin (FLOMAX) 0.4 MG Cap Take 1 capsule (0.4 mg total) by mouth daily. Indications: Benign prostatic hyperplasia (BPH) suspected 08/06/24 Yes Donavon Connor MD ticagrelor (BRILINTA) 90 mg tablet Take 1 tablet (90 mg total) by mouth 2 (two) times daily. Indications: Diabetes 07/02/24 Yes Doc [facility] Abstract insulin lispro, 1 Unit Dial, (HUMALOG KWIKPEN) 100 UNIT/ML injection (PEN) Inject 4-10 Units into the skin see administration instructions. Indications: Diabetes Sliding Scale: 200-250+4u, 250-300 6u, 300-350+8u, 350-400 10u, >400 take 10u and re-measure after 30 min if still above 400 call a doctor 06/24/24 Donavon Connor MD Senna (SENOKOT) 8.6 MG tablet Take 1 tablet (8.6 mg total) by mouth 2 (two) times daily as needed for Constipation. 08/16/24 Default History Genericprovider Allergies Allergen Reactions Hydroxypropyl Methylcellulose Unknown Artificial tears ingredient Gentamicin Other (see comment) and Unknown Reaction: Reaction: Review of Systems: A 14 point ROS was completed and was negative except as per HPI. Physical Exam Filed Vitals: 08/24/24 0915 08/24/24 0930 08/24/24 0945 08/24/24 1000 BP: Pulse: 68 70 74 80 Resp: 19 18 21 21 Temp: TempSrc: SpO2: 98% 100% 98% 98% Weight: Height: Body mass index is 21.99 kg/m??. Physical Exam: General: NAD, Appears Normal Stated Age HEENT: PEERL, EOMI, MMM NECK: No JVD CVS: RRR, no MRG Resp: CTAB, no wheezes, rales, rhonchi ABD: Soft, NT, ND, +BS Ext: No CCE Diagnostic Data Lab Results Component Value Date/Time WBC 13.52 (H) 08/24/2024 04:00 AM HGB 9.9 (L) 08/24/2024 04:00 AM HCT 31.5 (L) 08/24/2024 04:00 AM PLT 254 08/24/2024 04:00 AM NA 139 08/24/2024 04:00 AM CL 108 08/24/2024 04:00 AM K 4.4 08/24/2024 04:00 AM GLU 261 (H) 08/24/2024 04:00 AM BUN 23 (H) 08/24/2024 04:00 AM CR 1.27 08/24/2024 04:00 AM CA 8.1 (L) 08/24/2024 04:00 AM MAGNESIUM 2.1 08/17/2024 09:39 AM AST 18 08/17/2024 09:39 AM ALT 23 08/17/2024 09:39 AM ALB 3.3 (L) 08/17/2024 09:39 AM Lab Results Component Value Date CHOL 115 08/17/2024 TRI 120 08/17/2024 HDL 43 08/17/2024 LDL 48 08/17/2024 HGBA1C 7.8 (H) 08/17/2024 TSH 1.630 03/01/2024 EKG: Transthoracic Echocardiogram Stress Test Holter Left Heart Catherization Assessment/Plan Acute encephalopathy CVA Carotid stenosis s/p R CEA CAD s/p PCI of Lcx ~6 weeks ago at [place] HTN - continue levophed, wean as tolerate - recommend asa, statin; ideally restart DAPT when able from a surgical perspective given recent PCI - hold off on antihypertensives Thank you for allowing me to participate in the care of this patient. Please reach out with any questions. Maryuri Casiano MD A total of 35 minutes was spent reviewing the patient's medical record, obtaining history, performing an exam, ordering medications, tests, and/or procedures, documenting in the medical record, referring and/or communicating with other health care providers, counseling and educating the patient/fami ly/caregiver, reviewing and communicating test results and coordination of care. Portions of this note were dictated using Dick or Bro speech recognition software. Occasional wrong wordor sound-alike substitutions may have occurred due to the inherent limitations of voice recognition software. Please read the chart carefully and recognize, using context, where the substitutions may have occurred. * Perlita Beavers MD - 08/24/2024 8:56 AM CDT Hospitalist Daily Progress Note Subjective This is a 74-year-old y/o male who presents with CVA (cerebral vascular accident) ([facility]). Patient seen and examined at bedside. No acute concerns. He is more calm today. No family present at bedside Currently on IV levophed Objective Filed Vitals: 08/24/24 0800 08/24/24 0815 08/24/24 0830 08/24/24 0845 BP: Pulse: 63 60 66 71 Resp: 18 14 20 22 Temp: TempSrc: SpO2: 100% 100% 100% 100% Weight: Height: Physical Exam: Physical Exam Vitals reviewed. Constitutional: Appearance: He is well-developed. He is not ill-appearing. Cardiovascular: Rate and Rhythm: Normal rate and regular rhythm. Heart sounds: No murmur heard. Pulmonary: Effort: Pulmonary effort is normal. No respiratory distress. Breath sounds: Normal breath sounds. No wheezing. Abdominal: General: There is no distension. Palpations: Abdomen is soft. Tenderness: There is no abdominal tenderness. Musculoskeletal: General: No swelling. Skin: Findings: No rash. Neurological: Mental Status: He is alert. Comments: Intermittently moves L shoulder to gravity, moves L foot, L sided neglect present. Intake/Output 24H Total: Intake/Output Summary (Last 24 hours) at 08/24/2024 0856 Last data filed at 08/24/2024 0800 Gross per 24 hour Intake 1722.58 ml Output 1239 ml Net 483.58 ml Medication aspirin 81 mg Oral Daily atorvastatin 80 mg Oral nightly insulin glargine 10 Units Subcutaneous Nightly at bedtime insulin lispro 0-14 Units Subcutaneous TID AC And insulin lispro 0-7 Units Subcutaneous Nightly at bedtime lactated ringers bolus 500 mL Intravenous Once lactulose 10 g Oral TID ticagrelor 90 mg Oral BID norepinephrine 4 mcg/min (08/24/24 0888) PRN Meds: acetaminophen, acetaminophen, bisacodyl, cyclobenzaprine, docusate sodium, haloperidol lactate, melatonin, ondansetron Labs: Recent Results (from the past 24 hours) HEPARIN, ANTI XA, UFH Collection Time: 08/23/24 12:15 PM Result Value Ref Range HEPARIN ANTI XA UFH 0.63 0.30 - 0.70 IU/ML CBC W/DIFF AUTOMATED Collection Time: 08/23/24 6:48 PM Result Value Ref Range WBC 8.49 4.5 - 11.0 x10'3/uL RBC 3.59 (L) 4.70 - 6.10 x10'6/uL HGB 10.2 (L) 14.0 - 18.0 G/DL HCT 32.4 (L) 43.0 - 54.0 % MCV 90.3 80.0 - 94.0 FL MCH 28.4 27.0 - 31.0 PG MCHC 31.5 (L) 32.0 - 36.0 G/DL RDW 15.0 (H) 11.5 - 14.5 % PLT 168 130 - 400 x10'3/uL MPV 12.6 (H) 9.3 - 12.2 FL DIFFERENTIAL TYPE AUTOMATED DIFFERENTIAL NEUTROPHILS % 85.7 % LYMPHOCYTES % 11.2 % MONOCYTES % 1.3 % EOSINOPHILS 0.7 % BASOPHILS 0.5 % IMMATURE GRANS % 0.6 % ABS. NEUTROPHILS 7.28 1.80 - 7.70 x10'3/uL ABS. LYMPHOCYTES 0.95 (L) 1.00 - 4.80 x10'3/uL ABS. MONOCYTES 0.11 (L) 0.30 - 0.82 x10'3/uL ABS. EOSINOPHILS 0.06 0.04 - 0.54 x10'3/uL ABS. BASOPHILS 0.04 0.01 - 0.08 x10'3/uL ABS. IMMATURE GRANULOCYTES 0.05 0.00 - 0.49 x10'3/uL POCT glucose Collection Time: 08/23/24 7:46 PM Result Value Ref Range GLUCOSE POC 262 (H) 70 - 99 mg/dL BASIC METABOLIC PANEL Collection Time: 08/24/24 4:00 AM Result Value Ref Range GLUCOSE 261 (H) 70 - 99 MG/DL BUN 23 (H) 7 - 18 MG/DL CREATININE S/P/B 1.27 0.7 - 1.3 MG/DL SODIUM S/P/B 139 136 - 145 MMOL/L POTASSIUM S/P/B 4.4 3.5 - 5.1 MMOL/L CHLORIDE S/P/B 108 97 - 115 MMOL/L CO2 22.6 21 - 32 MMOL/L CALCIUM S/P/B 8.1 (L) 8.5 - 10.1 MG/DL ANION GAP 8.4 2 - 10 MMOL/L BUN CREATININE RATIO 18.1 6 - 26 GFR ESTIMATE 59 (L) >90 ML/MIN/1.73 M2 CBC W/DIFF AUTOMATED Collection Time: 08/24/24 4:00 AM Result Value Ref Range WBC 13.52 (H) 4.5 - 11.0 x10'3/uL RBC 3.55 (L) 4.70 - 6.10 x10'6/uL HGB 9.9 (L) 14.0 - 18.0 G/DL HCT 31.5 (L) 43.0 - 54.0 % MCV 88.7 80.0 - 94.0 FL MCH 27.9 27.0 - 31.0 PG MCHC 31.4 (L) 32.0 - 36.0 G/DL RDW 15.3 (H) 11.5 - 14.5 % PLT 254 130 - 400 x10'3/uL MPV 11.8 9.3 - 12.2 FL DIFFERENTIAL TYPE AUTOMATED DIFFERENTIAL NEUTROPHILS % 72.7 % LYMPHOCYTES % 17.8 % MONOCYTES % 8.6 % EOSINOPHILS 0.1 % BASOPHILS 0.4 % IMMATURE GRANS % 0.4 % ABS. NEUTROPHILS 9.83 (H) 1.80 - 7.70 x10'3/uL ABS. LYMPHOCYTES 2.41 1.00 - 4.80 x10'3/uL ABS. MONOCYTES 1.16 (H) 0.30 - 0.82 x10'3/uL ABS. EOSINOPHILS 0.01 (L) 0.04 - 0.54 x10'3/uL ABS. BASOPHILS 0.05 0.01 - 0.08 x10'3/uL ABS. IMMATURE GRANULOCYTES 0.06 0.00 - 0.49 x10'3/uL RBC MORPHOLOGY RBC MORPHOLOGY APPEARS NORMAL. SLIDE REVIEWED. PLT EST. ADEQUATE X-Ray CT head wo con (08/21/24): 1. No CT evidence of an acute intracranial hemorrhage. 2. Redemonstrated focal hypodensities within the right centrum semiovale and mccann radiata regionsof the right frontoparietal lobe. Additional right temporoparietal periventricular white matter hypodensities, as evidence for evolving acute infarcts. 3. 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 4. Moderate global cerebral volume loss. B carotid dopplers (08/20/24): The right internal carotid artery shows string sign with suspicious for distal disease. The left internal shows mild calcific disease. Bilateral vertebral arteries are antegrade bilaterally. CT head wo con (08/19/24): 1. Patchy recent right hemispheric infarcts, somewhat better delineated on the prior MRI. No large hemorrhagic transformation. No midline shift. Basal cisterns patent. 2. Small vessel disease and volume loss. Echo w con (08/18/24): The left ventricular size is normal. The [...] restless during the exam. Trace aortic regurgitation. MRI Brain wo con (08/17/24): Multifocal 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 Other chronic or nonurgent findings as described above. CTA head/neck (08/17/24): 1. Complete occlusion of right ICA from [...] artery. 8. Asymmetric diminished prominence of left EMBROID[employer] WORKER territory vasculature with no focal high-grade stenosis appreciated. 9. Approximately 50% stenosis at origin of left ICA. Up to 60% stenosis of left ICA 9 mm above the origin. 10. Moderate stenosis at origin of left ECA. CXR (08/17/24): 1. No convincing new acute cardiopulmonary findings. CT head wo con (08/17/24): There is a focal area of hypoattenuation in the right occipital lobe posteriorly. This may relate to an area of ischemic change. This may be acute to subacute. This is new as compared to June 22, 2023. Diffuse white matter hypoattenuating areas suspected due to chronic small vessel ischemic disease. No midline shift. Results for orders placed or performed during the hospital encounter of 08/17/24 ECG 12 lead Narrative [facility] [address] Test Date: 2024-08-17 [facility] Department: 41 Room: A422 Gender: Male Insight Director: [id number] : 1950 Requested By: DENNIS GARZA Order Number: [id number] Reading MD: Mu Tai Measurements Intervals [place] Rate: 70 P: 49 MO: 175 QRS: -29 QRSD: 150 T: 115 QT: 442 QTc: 479 Interpretive Statements SINUS RHYTHM LEFT BUNDLE BRANCH BLOCK [120+ ms QRS DURATION, 80+ ms Q/S IN V1/V2, 85+ ms R IN I/aVL/V5/V6] Compared to ECG 06/22/2023 15:09:14 Left bundle-branch block now present T-wave abnormality no longer present Possible ischemia no longer present Other ischemic changes, not STEMI Preliminary EKG Interpretation by Dennis Garza M.D. ECG 12 lead Narrative [facility] [address] Test Date: 2024-08-21 [facility] Department: 40 Room: [id number] Gender: Male Insight Director: : 1950 Requested By: CHRISTIANO BETANCOURT Order Number: [id number] Reading MD: Kim Medina Measurements Intervals [place] Rate: 67 P: 16 MO: 169 QRS: 5 QRSD: 86 T: 142 QT: 438 QTc: 464 Interpretive Statements [address]INUS RHYTHM [address] DEVIATION AND MODERATE T-WAVE ABNORMALITY, CONSIDER ANTEROLATERAL ISCHEMIA [-0.1+ mV T-WAVE IN V3-V6] Compared to ECG 08/17/2024 09:35:52 T-wave abnormality now present Possible ischemia now present Left bundle-branch block no longer present ECG 12 lead Narrative [facility] [place] [address] [facility] Test Date: 2024-08-22 Pat Name: [facility] Department: 40 Room: [facility] Gender: Male Insight Director: : 1950 Requested By: CHRISTIANO BETANCOURT Order Number: [id number] Reading MD: Adal Pierson Measurements Intervals [place] Rate: 77 P: 25 MO: 181 QRS: 10 QRSD: 91 T: 140 QT: 397 QTc: 450 Interpretive Statements SINUS RHYTHM MODERATE T-WAVE ABNORMALITY, CONSIDER ANTEROLATERAL ISCHEMIA [-0.1+ mV T-WAVE IN V3-V6] Compared to ECG 08/21/2024 08:07:31 No significant changes ECG 12 lead Narrative [facility] [place] [address] [facility] Test Date: 2024-08-23 Pat Name: [facility] Department: 40 Room: [facility] Gender: Male Insight Director: : 1950 Requested By: MU TAI Order Number: [id number] Reading MD: Abundio Singh Measurements Intervals [place] Rate: 82 P: 50 MO: 164 QRS: 11 QRSD: 142 T: 116 QT: 408 QTc: 479 Interpretive Statements SINUS RHYTHM LEFT BUNDLE BRANCH BLOCK [120+ ms QRS DURATION, 80+ ms Q/S IN V1/V2, 85+ ms R IN I/aVL/V5/V6] Compared to ECG 08/22/2024 16:09:50 Left bundle-branch block now present T-wave abnormality no longer present Possible ischemia no longer present Assessment/Plan: Carotid stenosis CTA head/neck with complete occlusion of right ICA from 8 to 16 mm above its origin with reconstitution of the vessel more distally with decreased volume and opacity from the contralateral side. R ICA with string sign - concern for distal disease Vascular surgery consulted, appreciate recs. After discussion with Dr. Matthews of neurology and Dr. Padgett of vascular surgery, patient may benefit from R CEA. Heparin gtt initiated - monitoring in ICU given high risk of bleed. CT head after heparin gtt initiated with no evidence of bleed. Continue neurochecks q4 and close monitoring by ICU staff. S/p right CEA on 08/23 Acute on chronic encephalopathy Recent CVA Patient presented to the hospital after being unresponsive since the night prior to admission. L side flaccid with dysphagia since recent CVA on 08/12. UA neg LE/nitrites Troponin WNL Lipid panel WNL CT head with focal area of hypoattenuation in the right occipital lobe posteriorly CTA head/neck with multiple areas of occlusion - ER reviewed with interventional neurology who feltno indication for intervention. Echo with bubble with no thrombus or PFO. Brain MRI with multifocal acute infarcts, however suspect likely similar to the MRI done at [place] - only able to compare reports and not imaging. Repeat CT head with recent R hemispheric infarcts - no hemorrhagic transformation. Since admission, mental status waxes/wanes with periods of unresponsiveness. Neurology consulted, appreciate assistance. CTA heart reviewed by Dr. Casiano of cardiology - no left atrial appendage thrombus, no significant ascending aortic calcification. No need for LEO per cards. Started on precedex gtt due to intermittent agitation. Weaned off on 08/23 CM consulted for assistance with rehab on dc. Did not pass BISCUIT MAKER eval May need dobhoff for short term PO meds Sedation induced hypotension Secondary to Precedex gtt. Levophed gtt. Weaned off precedex gtt on 08/23 Restarted low dose levophed Monitor MAP Hypertension BPs elevated on admission. Now holding Toprol XL, Norvasc with hypotension as above On low dose levophed Dementia with agitation Patient intermittently confused and tries to get out of bed. Redirection is difficult due to aphasia and language barrier. Ativan/Xanax/Haldol have caused severe somnolence. Will request family to stay with him as much as possible. Precedex discontinued. Monitor Hypokalemia K down to 2.6. Mag wnl. Replaced and resolved. ELOISE Creatinine 1.4, previous 0.8 in June 2024 IVF Resolved. RLE pain Appears to have ecchymosis on the back of the leg - family/patient unaware of how he got this.. Suspect traumatic Trial of low dose muscle relaxant. Resolved. Cardiomyopathy No evidence of fluid overload. Echo with EF 40-45%. No change from prior echo at [facility] from 07/12/24. Consider BB Not on any diuretics. CAD Recently had stents X2 placed in June 2024 at [facility] ASA/brilinta DM2 Glucose increasing. Restarted home Lantus 6 units QHS Accu-Cheks QAC/HS Increased lantus to 10 uqhs SSI Monitor/adjust insulin as needed. Constipation Has had issues of severe constipation in the past. Continue home lactulose as able BPH Continue Flomax. Malnutrition Classification: Moderate Malnutrition Moderate malnutrition associated with starvation related to oral health limitations secondary to dysphagia as evidenced by unintended weight loss of 10.3% in 6 months, mild-moderate fat loss noted inthe following areas: orbital and buccal, and mild-moderate muscle loss noted in the following areas: temples, clavicle, acromion and patella. Dietitian following SDOH Readmission, speaks Nepali. DVT Prophylaxis Heparin subcu Code status FULL Surrogate decision maker/POA: Son, Gladys along with his other children Critical care time spent separate from procedures of 45 minutes. This patient had a high probability of imminent or life-threatening deterioration due to carotid stenosis with string sign requiring heparin gtt and close monitoring for bleeding with recent multifocal CVA, which required my direct attention, intervention, and personal management. (Total time includes IDR spent on the patient, specialist discussion, nursing discussion, reviewinglabs, reviewing notes, documentation, orders, and examining the patient) Perlita Beavers MD 08/24/2024 8:56 AM * Geoffrey Meier DO - 08/24/2024 5:09 AM CDT Digital Content Producer Daily Progress Note History of Present Illness Hospital course thus far is as follows: Ramírez Fernando is a 74-year-old male with pmh of CAD (stent placement x2 on 06/2024), DM2, BPH, HTN, CVA (08/12/24), recently admitted to [facility] on 08/12 for acute infarcts and discharged home, presented with complaints of severe lethargy. According to his son, the patient was given a dose of 0.25 mg Xanax and his blood pressure medications on 08/16. The son was unable to arouse him later that night to assist with going to the bathroom. The patient remained lethargic, prompting his family to call EMS. Upon arrival, the patient was more alert and responsive to questions. The left side is flaccid, and the patient moves the right side without difficulty. The patient speaks Nepali, and his daughter & son, who are fluent in Montenegrin, are acting as translators. 08/24 - No acute events overnight. S/P right CEA yesterday. Precedex weaned, now off. Remains on lowdose Levophed. Somnolent this AM but no airway concerns. Right neck with significant erythema and some swelling, stable per overnight team. Will defer imaging unless it worsens. Physical Exam Filed Vitals: 08/24/24 0440 08/24/24 0445 08/24/24 0450 08/24/24 0500 BP: Pulse: (!) 54 (!) 52 (!) 48 (!) 52 Resp: 12 10 9 11 Temp: TempSrc: SpO2: 98% 99% 100% 100% Weight: Height: I/O last 3 completed shifts: In: 1760.4 [I.V.:1660.4; IV Piggyback:100] Out: 1028 [Urine:795; Drains:33; Blood:200] Physical Exam: Physical Exam Constitutional: General: He is not in acute distress. Appearance: He is ill-appearing. HENT: Head: Normocephalic and atraumatic. Eyes: Pupils: Pupils are equal, round, and reactive to light. Cardiovascular: Rate and Rhythm: Normal rate and regular rhythm. Pulses: Normal pulses. Heart sounds: Normal heart sounds. Pulmonary: Breath sounds: Normal breath sounds. Abdominal: General: There is no distension. Palpations: Abdomen is soft. Musculoskeletal: Right lower leg: No edema. Left lower leg: No edema. Skin: General: Skin is warm and dry. Findings: Erythema and rash present. Neurological: Comments: Weak left upper/lower extremities Data: Recent Labs Lab 08/22/24 0419 08/23/24 0400 08/23/24 1848 WBC 7.68 10.02 8.49 RBC 4.27* 4.05* 3.59* HGB 11.9* 11.4* 10.2* HCT 37.8* 36.2* 32.4* MCV 88.5 89.4 90.3 MCH 27.9 28.1 28.4 MCHC 31.5* 31.5* 31.5* PLT 243 227 168 RDW 15.4* 15.3* 15.0* MPV 11.5 11.6 12.6* Recent Labs Lab 08/22/24 0419 08/23/24 0400 08/24/24 0400 NA 137 138 139 K 3.6 3.9 4.4 CL 105 106 108 CO2 26.7 26.3 22.6 AGAP 5.3 5.7 8.4 BUN 24* 28* 23* CR 1.16 1.13 1.27 BUNCREATININ 20.7 24.8 18.1 GLU 258* 238* 261* CA 8.2* 8.3* 8.1* Recent Labs Lab 08/17/24 0939 TP 7.7 ALB 3.3* TBIL 0.8 ALKP 101 AST 18 ALT 23 Recent Labs Lab 08/17/24 0939 08/20/24 1800 INR 1.0 0.9 Recent Labs Lab 08/21/24 0840 08/22/24 1613 08/23/24 0400 TROP 55 37 50 No results for input(s): LACTICACID , PROCT in the last 168 hours. No results for input(s): PH , PCO2 , PO2 , [id number] , BICARBWB , BASEDEFICIT , BASEEXCESS in the last 168 hours. Imaging: CT head 08/21 IMPRESSION: 1. No CT evidence of an acute intracranial hemorrhage. 2. Redemonstrated focal hypodensities within the right centrum semiovale and mccann radiata regionsof the right frontoparietal lobe. Additional right temporoparietal periventricular white matter hypodensities, as evidence for evolving acute infarcts. 3. 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 4. Moderate global cerebral volume loss. CTA heart with 3D imagine Pending read TTE 08/17 ++++++++++++++++++++++++++++++++++++ SUMMARY: ++++++++++++++++++++++++++++++++++++ The left ventricular size [...] restless during the exam. Trace aortic regurgitation. CXR 08/17 - no acute process EKG/tele: Measurements Intervals [place] Rate: 82 P: 50 MO: 164 QRS: 11 QRSD: 142 T: 116 QT: 408 QTc: 479 Interpretive Statements SINUS RHYTHM LEFT BUNDLE BRANCH BLOCK [120+ ms QRS DURATION, 80+ ms Q/S IN V1/V2, 85+ ms R IN I/aVL/V5/V6] Compared to ECG 08/22/2024 16:09:50 Left bundle-branch block now present T-wave abnormality no longer present Possible ischemia no longer present Microbiology: MRSA negative Glucose (over past 24h): 260 Net I/O (this admission): UOP 985 mL, Net -1,172 mL Assessment/Plan: Assessment Acute on chronic encephalopathy Dementia Hx of CVA with Left side flaccid with dysphagia s/p recent CVA on 08/12/24 Carotid stenosis s/p Right CEA CAD s/p PCI of Lcx ~6 weeks ago ELOISE DM2 BPH Plan -No change in neuro status overnight. Successfully weaned off of Precedex. Will order neuroleptics if needed. -Remains on low dose Levophed for BP support -LR 500 bolus this AM -No respiratory concerns at this time -NPO, BISCUIT MAKER eval pending -Will likely need Dobhoff in the short term for PO meds -Lactulose for constipation -Follow UOP, electrolytes -H/H stable -Anti-PLT per vascular -Glucose elevated, Lantus + SSI -Plan to remove arterial line today -Supportive Care Nutrition: NPO DVT prophylaxis: Per vascular, SCDs GI prophylaxis: NA IV access: PIV, midline Tubes: Arterial line, neck drain, Joiner Activity: bed rest Family discussion: Updated by nursing Code status: Full Code I spent 41 minutes of critical care time providing direct care to this critically ill patient excluding teaching and procedures, reviewing the patient's medical record, obtaining history, performing an exam, ordering medications, tests, and/or procedures, documenting in the medical record, referring and/or communicating with other health care providers, counseling, and educating the patient/family/caregiver, reviewing and communicating test results, and coordination of care. Geoffrey Meier DO 08/24/24 5:09 AM * Kayley Neil RN - 08/23/2024 8:33 PM CDT Problem: Discharge Planning Goal: Knowledge of discharge instructions Outcome: Met This Shift Problem: Pain control/comfort Goal: Promote pain control/comfort Outcome: Met This Shift Problem: Skin integrity, Impaired-wound Goal: Absence of new skin breakdown Outcome: Met This Shift Goal: Evidence of wound healing Outcome: Met This Shift Problem: Skin integrity, Impaired-pressure injury/ulcer Goal: Absence of new skin breakdown Outcome: Met This Shift Goal: Evidence of pressure injury/ulcer healing Outcome: Met This Shift Problem: Skin integrity, at risk Goal: Absence of new skin breakdown Outcome: Met This Shift Problem: Moisture associated skin impairment Goal: Reduce moisture exposure Outcome: Met This Shift Goal: Evidence of wound healing Outcome: Met This Shift Goal: Evidence of pressure injury/ulcer healing Outcome: Met This Shift Goal: Absence of new skin breakdown Outcome: Met This Shift Problem: Reduced risk for falls/injury Goal: Reduced Risk for Falls/Injury Outcome: Met This Shift Goal: Reduced Risk of Confusion (Acute vs Chronic) Outcome: Met This Shift Goal: Reduced Risk of Symptomatic Depression Outcome: Met This Shift Goal: Reduced Risk of Altered Elimination Outcome: Met This Shift Goal: Reduced Risk of Dizziness/Vertigo/Balance Outcome: Met This Shift Goal: Reduced Risk of Polypharmacy Outcome: Met This Shift Problem: Violence, self/other directed, risk of Goal: Absence of violence Outcome: Met This Shift Problem: Balance Goal: STG - Pt to demonstrate static sitting balance at edge of bed Description: The patient will demonstrate static sitting balance at EOB = min/SBA x 5 minutes. Outcome: Met This Shift Problem: Transfers Goal: STG - Pt will perform bed mobility Description: The patient will increase all bed mobility activities to min/mod assist x 1. Outcome: Met This Shift Goal: STG - Pt will perform stand pivot transfer Description: The patient will perform stand pivot transfers to min/mod x 1. Outcome: Met This Shift Problem: Aspiration - Risk of Goal: Absence of aspiration Outcome: Met This Shift Problem: Mobility - Impaired Goal: Able to achieve maximum mobility level Outcome: Met This Shift Problem: Mood - Altered Goal: Alleviation of anxiety Outcome: Met This Shift Goal: Decrease in depressive symptoms Outcome: Met This Shift Problem: THROMBOLYTIC COMPLICATION - RISK OF ANGIOEDEMA AND BLEEDING Goal: Absence of angioedema Outcome: Met This Shift Goal: Absence of bleeding Outcome: Met This Shift Problem: Tissue Perfusion - Cerebral, Altered Goal: Absence of continued neurologic deterioration signs and symptoms Outcome: Met This Shift Problem: Verbal Communication - Impaired Goal: Effective communication Outcome: Met This Shift Goal: Increased social interaction Outcome: Met This Shift Problem: Discharge Planning Goal: Knowledge of discharge instructions Outcome: Met This Shift Problem: Grooming Goal: STG - Pt will complete grooming tasks from a seated position with Description: SBS/MIN A VCS FOR ATTN TO THE LEFT Outcome: Met This Shift Problem: Dressing: Upper Extremities Goal: STG - Pt will complete upper body dressing with Description: MOD A DELFINA TECH, VCS FOR ATTN TO LEFT Outcome: Met This Shift Problem: Transfers Goal: STG - Pt will perform a bedside commode transfer with Description: MOD A Pivot/BSC Outcome: Met This Shift Problem: Infection - Risk of, Urinary Catheter-Associated Urinary Tract Infection Goal: Absence of Urinary Catheter Associated Urinary Tract (UTI) Infection Signs and Symptoms Outcome: Met This Shift Problem: Restraint [id number]-[id number]/Non-Self Destructive Behavior Goal: Absence of injury Reactivated Goal: Release of restraints Reactivated Problem: Infection - Risk of, Central Venous Catheter-Associated Bloodstream Infection Goal: Absence of Central Venous Catheter Associated Bloodstream Infection Signs and Symptoms Reactivated * Jeanmarie Padgett MD - 08/23/2024 2:49 PM CDT Ramírez Fernando is a 74-year-old male Subjective: Patient more alert today. Remains confused CVA (cerebral vascular accident) ([facility]) Current Facility-Administered Medications Medication Dose Route Frequency Provider Last Rate Last Admin acetaminophen (TYLENOL) tablet 650 mg 650 mg Oral Q4H PRN Christiano Betancourt MD aspirin chewable tablet 81 mg 81 mg Oral Daily Christiano Betancourt MD 81 mg at 08/22/24 1006 atorvastatin (LIPITOR) tablet 80 mg 80 mg Oral nightly Christiano Betancourt MD 80 mg at 08/22/242021 bisacodyl (DULCOLAX) suppository 10 mg 10 mg Rectal Daily PRN Christiano Betancourt MD cyclobenzaprine (FLEXERIL) tablet 5 mg 5 mg Oral TID PRN Christiano Betancourt MD 5 mg at 08/18/24 1845 haloperidol lactate (HALDOL) injection 2 mg 2 mg Intravenous Q6H PRN Christiano Betancourt MD 2 mg at 08/21/24 0341 heparin (porcine) 1000 unit/mL injection heparin 25,000 units in 250 mL 0.45% NaCl (100 units/mL) infusion 0-3,900 Units/hr Intravenous Continuous Christiano Betancourt MD Held at 08/23/24 1446 And heparin (porcine) injection 5,000 Units 5,000 Units Intravenous PRN Christiano Betancourt MD And heparin (porcine) injection 2,500 Units 2,500 Units Intravenous PRN Christiano Betancourt MD insulin glargine (LANTUS) injection 10 Units 10 Units Subcutaneous Nightly at bedtime JUAN JOSE Robertson insulin lispro (HUMALOG/ADMELOG) injection 0-14 Units 0-14 Units Subcutaneous TID AC Christiano Betancourt MD 6 Units at 08/23/24 06 And insulin lispro (HUMALOG/ADMELOG) injection 0-7 Units 0-7 Units Subcutaneous Nightly at bedtime Brigitte Betancourt MD 3 Units at 08/21/242017 lactulose (CHRONULAC) 10 GM/15ML solution 10 g 10 g Oral TID Christiano Betancourt MD 10 g at 08/22/242021 melatonin tablet 3 mg 3 mg Oral Nightly PRN Christiano Betancourt MD 3 mg at 08/19/242043 norepinephrine (LEVOPHED) 8 mg/250mL NS infusion 0.5-60 mcg/min Intravenous Continuous Henry Palafox MD Stopped at 08/23/24514 ondansetron (ZOFRAN) injection 4 mg 4 mg Intravenous Q8H PRN Christiano Betancourt MD oxidized cellulose 1x2 (SURGICEL) pad sodium chloride 0.9 % infusion ticagrelor (BRILINTA) tablet 90 mg 90 mg Oral BID Christiano Betancourt MD 90 mg at 08/22/242023 Allergies Allergen Reactions Hydroxypropyl Methylcellulose Unknown Artificial tears ingredient Gentamicin Other (see comment) and Unknown Reaction: Reaction: Review of Systems Constitutional: Positive for fatigue. Cardiovascular: Negative for chest pain. Psychiatric/Behavioral: Positive for confusion. Objective: I/O last 3 completed shifts: In: 530.4 [P.O.:270; I.V.:260.4] Out: 470 [Urine:470] Blood pressure (!) 155/88, pulse 93, temperature 97.2 ??F (36.2 ??C), temperature source Tympanic, resp. rate 18, height 1.626 m (5' 4 ), weight 56.7 kg (125 lb), SpO2 99%. Physical Exam Constitutional: Appearance: He is ill-appearing. Cardiovascular: Rate and Rhythm: Normal rate. Pulmonary: Effort: Pulmonary effort is normal. Neurological: Mental Status: He is alert. He is disoriented. Motor: Weakness present. Lab Results Component Value Date NA 138 08/23/2024 K 3.9 08/23/2024 CL 106 08/23/2024 CO2 26.3 08/23/2024 AGAP 5.7 08/23/2024 BUN 28 (H) 08/23/2024 CR 1.13 08/23/2024 BUNCREATININ 24.8 08/23/2024 GFRNON 69 (L) 03/29/2021 GFR 80 (L) 03/29/2021 GLU 238 (H) 08/23/2024 CA 8.3 (L) 08/23/2024 Lab Results Component Value Date WBC 10.02 08/23/2024 HGB 11.4 (L) 08/23/2024 PLT 227 08/23/2024 Lab Results Component Value Date CHOL 115 08/17/2024 TRI 120 08/17/2024 HDL 43 08/17/2024 TP 7.7 08/17/2024 ALB 3.3 (L) 08/17/2024 ALT 23 08/17/2024 HGBA1C 7.8 (H) 08/17/2024 TSH 1.630 03/01/2024 Principal Problem: CVA (cerebral vascular accident) ([facility]) SNOMED CT(R): CEREBROVASCULAR ACCIDENT Active Problems: Acute metabolic encephalopathy SNOMED CT(R): METABOLIC ENCEPHALOPATHY Carotid stenosis, right SNOMED CT(R): RIGHT CAROTID ARTERY STENOSIS Plan: The patient is scheduled for right carotid endarterectomy. The planned procedure, risks, benefits, expected outcomes and postoperative course were discussed with the patient's family members. They expressed understanding and wished to proceed with right carotid endarterectomy. JEANMARIE PADGETT MD 08/23/2024 * CONNIE Fuentes - 08/23/2024 2:42 PM CDT 08/23/24 1441 Therapy Visit Subjective Upon attempt for follow up with swallowing RN relays that pt is getting ready to go to surgery for R CEA and is NPO. Will follow up early next week 1-2 business days. * Lou Alvarez RN - 08/23/2024 1:21 PM CDT 08/23/24 1320 Interdisciplinary Group Conference Team Members Present Case/Care management;Nursing Patient Current Status Paient current status Inpatient Barriers to Discharge Inpatient Review Barriers to Discharge Inpatient No Barrier- Medical Milestone in Process;Administering IV meds;Mobility Progression Needs;Other (Comment);Weaning for Oxygen in Process Other follow up (Comment) Precedex GTT, Hep GTT, Levophed GTT, Carotid Endarcetomy 08/23 Per IDR through weekend. Patient expects to be discharged to Patient expects to be discharged to: [facility]( SNF) 08/23- [phone] Spoke to Maryam, gave update on patient. Please call Maryam if patient should be discharged before Monday. * Fernanda Garrett PTA - 08/23/2024 12:11 PM CDT 08/23/24 0908 Therapy Visit Ordering Provider Jose Perez [facility] 209: Per RN, hold therapy as pt in restraints d/t pulling on joiner and IV. Reports pt going for surgery later. Will check back at later time/date. Plan PT Frequency 5 times/week Cosigned by Yousuf Pineda, PT at 08/23/2024 3:14 PM CDT * Pinky Reyna RD - 08/23/2024 12:10 PM CDT CLINICAL DIETITIAN NOTE This RD went to patient's room while the daughter was at bedside to gather weight and diet history and to complete nutrition focused physical exam (NFPE). The NFPE was deferred by RD on 08/19/24 due to patient being asleep. Per daughter, patient was not eating well at home prior to admission secondary to trouble chewing. He has teeth but chewing food took a long time to do and was only able to consume small amounts of food. On texture modified diet order per BISCUIT MAKER recommendations at this time. Daughter says patient has been drinking about 75% of his Glucerna shakes he receives twice daily. Will continue these drinks. Per daughter, patient's usual weight is around 65 kg (143 lbs). RD assessment on 08/19/24 mentions aweight loss of 10.3% x 6 months. Nutrition Focused Physical Exam findings (08/23/24): Moderate muscle loss noted in the following area(s): temples, clavicle, acromion; moderate muscle loss around patella-difficult to assess thigh areas due to one leg appearing to be larger than the other one. Moderate fat loss noted in the following area(s): orbital and buccal. Could not assess calf and tricep areas due to patient being unable tochange position in the bed for these to be assessed-altered mental status a barrier as well as patient being unable to understand Montenegrin-Nepali speaking. Malnutrition Classification: Moderate Malnutrition Moderate malnutrition associated with starvation related to oral health limitations secondary to dysphagia as evidenced by unintended weight loss of 10.3% in 6 months, mild-moderate fat loss noted inthe following areas: orbital and buccal, and mild-moderate muscle loss noted in the following areas: temples, clavicle, acromion and patella. Pinky Reyna RD, LDN * Margareth Benz - 08/23/2024 11:26 AM CDT Patient assessed for emotional/spiritual needs and well-being; role of Spiritual Care explained. Patient's Disposition/People present: patient: limited speech post-stroke, speaks only Nepali. Daughter and here to visit. Daughter engages well. Both very worried for patient. Patient's support system: and daughter Christianity Affiliation/Spiritual Background: Restorationist Christianity/cultural considerations impacting medical care: Patient states having no sabianist or cultural considerations impacting medical care at this time. Elisa community: None Notification of elisa community desired: no. They will contact later if they wish. Needs identified: support to family Interventions: active listening with daughter, support, reassurance of our prayer Follow up Needed: No Patient indicates contentment regarding emotional/spiritual well-being and will request a technical sales advisor if needs arise. Health care directive: none in chart, not good time to ask. * Perlita Beavers MD - 08/23/2024 8:31 AM CDT Hospitalist Daily Progress Note Subjective This is a 74-year-old y/o male who presents with CVA (cerebral vascular accident) ([facility]). Patient is more calm today. Does not answer many questions. Precedex gtt discontinued this morning. Family present at bedside Plan for CEA today Objective Filed Vitals: 08/23/24 0600 08/23/24 0615 08/23/24 0630 08/23/24 0645 BP: (!) 163/88 (!) 147/76 124/66 100/55 Pulse: 84 82 81 70 Resp: 21 25 20 19 Temp: TempSrc: SpO2: 97% 99% 100% 100% Weight: Height: Physical Exam: Physical Exam Vitals reviewed. Constitutional: Appearance: He is well-developed. He is not ill-appearing. Cardiovascular: Rate and Rhythm: Normal rate and regular rhythm. Heart sounds: No murmur heard. Pulmonary: Effort: Pulmonary effort is normal. No respiratory distress. Breath sounds: Normal breath sounds. No wheezing. Abdominal: General: There is no distension. Palpations: Abdomen is soft. Tenderness: There is no abdominal tenderness. Musculoskeletal: General: No swelling. Skin: Findings: No rash. Neurological: Mental Status: He is alert. Comments: Intermittently moves L shoulder to gravity, moves L foot, L sided neglect present. Intake/Output 24H Total: Intake/Output Summary (Last 24 hours) at 08/23/2024 0831 Last data filed at 08/23/2024 0600 Gross per 24 hour Intake 530.36 ml Output 470 ml Net 60.36 ml Medication aspirin 81 mg Oral Daily atorvastatin 80 mg Oral nightly insulin glargine 6 Units Subcutaneous Nightly at bedtime insulin lispro 0-14 Units Subcutaneous TID AC And insulin lispro 0-7 Units Subcutaneous Nightly at bedtime lactulose 10 g Oral TID ticagrelor 90 mg Oral BID dexmedetomidine 0.1 mcg/kg/hr (08/23/24 0645) heparin 700 Units/hr (08/23/24 0550) norepinephrine Stopped (08/23/24 0515) PRN Meds: acetaminophen, bisacodyl, cyclobenzaprine, haloperidol lactate, heparin AND heparin (porcine) AND heparin (porcine), melatonin, ondansetron Labs: Recent Results (from the past 24 hours) POCT glucose Collection Time: 08/22/24 11:15 AM Result Value Ref Range GLUCOSE POC 289 (H) 70 - 99 mg/dL TROPONIN, QUANT Collection Time: 08/22/24 4:13 PM Result Value Ref Range TROPONIN I HIGH SENSITIVITY 37 <79 ng/L POCT glucose Collection Time: 08/22/24 5:25 PM Result Value Ref Range GLUCOSE POC 282 (H) 70 - 99 mg/dL POCT glucose Collection Time: 08/22/24 7:55 PM Result Value Ref Range GLUCOSE POC 159 (H) 70 - 99 mg/dL POCT glucose Collection Time: 08/22/24 11:23 PM Result Value Ref Range GLUCOSE POC 187 (H) 70 - 99 mg/dL HEPARIN, ANTI XA, UFH Collection Time: 08/23/24 4:00 AM Result Value Ref Range HEPARIN ANTI XA UFH 0.75 (H) 0.30 - 0.70 IU/ML BASIC METABOLIC PANEL Collection Time: 08/23/24 4:00 AM Result Value Ref Range GLUCOSE 238 (H) 70 - 99 MG/DL BUN 28 (H) 7 - 18 MG/DL CREATININE S/P/B 1.13 0.7 - 1.3 MG/DL SODIUM S/P/B 138 136 - 145 MMOL/L POTASSIUM S/P/B 3.9 3.5 - 5.1 MMOL/L CHLORIDE S/P/B 106 97 - 115 MMOL/L CO2 26.3 21 - 32 MMOL/L CALCIUM S/P/B 8.3 (L) 8.5 - 10.1 MG/DL ANION GAP 5.7 2 - 10 MMOL/L BUN CREATININE RATIO 24.8 6 - 26 GFR ESTIMATE 67 (L) >90 ML/MIN/1.73 M2 CBC W/DIFF AUTOMATED Collection Time: 08/23/24 4:00 AM Result Value Ref Range WBC 10.02 4.5 - 11.0 x10'3/uL RBC 4.05 (L) 4.70 - 6.10 x10'6/uL HGB 11.4 (L) 14.0 - 18.0 G/DL HCT 36.2 (L) 43.0 - 54.0 % MCV 89.4 80.0 - 94.0 FL MCH 28.1 27.0 - 31.0 PG MCHC 31.5 (L) 32.0 - 36.0 G/DL RDW 15.3 (H) 11.5 - 14.5 % PLT 227 130 - 400 x10'3/uL MPV 11.6 9.3 - 12.2 FL DIFFERENTIAL TYPE AUTOMATED DIFFERENTIAL NEUTROPHILS % 62.3 % LYMPHOCYTES % 25.7 % MONOCYTES % 7.5 % EOSINOPHILS 3.3 % BASOPHILS 0.9 % IMMATURE GRANS % 0.3 % ABS. NEUTROPHILS 6.24 1.80 - 7.70 x10'3/uL ABS. LYMPHOCYTES 2.58 1.00 - 4.80 x10'3/uL ABS. MONOCYTES 0.75 0.30 - 0.82 x10'3/uL ABS. EOSINOPHILS 0.33 0.04 - 0.54 x10'3/uL ABS. BASOPHILS 0.09 (H) 0.01 - 0.08 x10'3/uL ABS. IMMATURE GRANULOCYTES 0.03 0.00 - 0.49 x10'3/uL X-Ray CT head wo con (08/21/24): 1. No CT evidence of an acute intracranial hemorrhage. 2. Redemonstrated focal hypodensities within the right centrum semiovale and mccann radiata regionsof the right frontoparietal lobe. Additional right temporoparietal periventricular white matter hypodensities, as evidence for evolving acute infarcts. 3. 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 4. Moderate global cerebral volume loss. B carotid dopplers (08/20/24): The right internal carotid artery shows string sign with suspicious for distal disease. The left internal shows mild calcific disease. Bilateral vertebral arteries are antegrade bilaterally. CT head wo con (08/19/24): 1. Patchy recent right hemispheric infarcts, somewhat better delineated on the prior MRI. No large hemorrhagic transformation. No midline shift. Basal cisterns patent. 2. Small vessel disease and volume loss. Echo w con (08/18/24): The left ventricular size is normal. The [...] restless during the exam. Trace aortic regurgitation. MRI Brain wo con (08/17/24): Multifocal 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 Other chronic or nonurgent findings as described above. CTA head/neck (08/17/24): 1. Complete occlusion of right ICA from [...] artery. 8. Asymmetric diminished prominence of left [employer] WORKER territory vasculature with no focal high-grade stenosis appreciated. 9. Approximately 50% stenosis at origin of left ICA. Up to 60% stenosis of left ICA 9 mm above the origin. 10. Moderate stenosis at origin of left ECA. CXR (08/17/24): 1. No convincing new acute cardiopulmonary findings. CT head wo con (08/17/24): There is a focal area of hypoattenuation in the right occipital lobe posteriorly. This may relate to an area of ischemic change. This may be acute to subacute. This is new as compared to June 22, 2023. Diffuse white matter hypoattenuating areas suspected due to chronic small vessel ischemic disease. No midline shift. Results for orders placed or performed during the hospital encounter of 08/17/24 ECG [address] [facility] [facility] [address] Test Date: 2024-08-17 Pat Name: RAMÍREZCOLEMAN FERNANDO Department: 41 Room: A422 Gender: Male Insight Director: [id number] : 1950 Requested By: DENNIS GARZA Order Number: [id number] Reading MD: Mu Tai Measurements Intervals [place] Rate: 70 P: 49 MO: 175 QRS: -29 QRSD: 150 T: 115 QT: 442 QTc: 479 Interpretive Statements SINUS RHYTHM LEFT BUNDLE BRANCH BLOCK [120+ ms QRS DURATION, 80+ ms Q/S IN V1/V2, 85+ ms R IN I/aVL/V5/V6] Compared to ECG 06/22/2023 15:09:14 Left bundle-branch block now present T-wave abnormality no longer present Possible ischemia no longer present Other ischemic changes, not STEMI Preliminary EKG Interpretation by Dennis Garza M.D. ECG 12 lead Narrative [facility] Test Date: 2024-08-21 Pat Name: [facility] Department: 40 Room: [id number] Gender: Male Insight Director: : 1950 Requested By: CHRISTIANO BETANCOURT Order Number: [id number] Reading MD: Kim Medina Measurements Intervals [place] Rate: 67 P: 16 MO: 169 QRS: 5 QRSD: 86 T: 142 QT: 438 QTc: 464 Interpretive Statements SINUS RHYTHM ST DEVIATION AND MODERATE T-WAVE ABNORMALITY, CONSIDER ANTEROLATERAL ISCHEMIA [-0.1+ mV T-WAVE IN V3-V6] Compared to ECG 08/17/2024 09:35:52 T-wave abnormality now present Possible ischemia now present Left bundle-branch block no longer present ECG 12 lead Narrative [facility] [place] [address] [facility] Test Date: 2024-08-22 Pat Name: [facility] Department: 40 Room: [id number] Gender: Male Insight Director: : 1950 Requested By: CHRISTIANO BETANCOURT Order Number: [id number] Reading MD: Adal Pierson Measurements Intervals [place] Rate: 77 P: 25 MO: 181 QRS: 10 QRSD: 91 T: 140 QT: 397 QTc: 450 Interpretive Statements SINUS RHYTHM MODERATE T-WAVE ABNORMALITY, CONSIDER ANTEROLATERAL ISCHEMIA [-0.1+ mV T-WAVE IN V3-V6] Compared to ECG 08/21/2024 08:07:31 No significant changes Assessment/Plan: Carotid stenosis CTA head/neck with complete occlusion of right ICA from 8 to 16 mm above its origin with reconstitution of the vessel more distally with decreased volume and opacity from the contralateral side. R ICA with string sign - concern for distal disease Vascular surgery consulted, appreciate recs. After discussion with Dr. Matthews of neurology and Dr. Padgett of vascular surgery, patient may benefit from R CEA. Heparin gtt initiated - monitoring in ICU given high risk of bleed. CT head after heparin gtt initiated with no evidence of bleed. Continue neurochecks q4 and close monitoring by ICU staff. Plan for R CEA today. Acute on chronic encephalopathy Recent CVA Patient presented to the hospital after being unresponsive since the night prior to admission. L side flaccid with dysphagia since recent CVA on 08/12. UA neg LE/nitrites Troponin WNL Lipid panel WNL CT head with focal area of hypoattenuation in the right occipital lobe posteriorly CTA head/neck with multiple areas of occlusion - ER reviewed with interventional neurology who feltno indication for intervention. Echo with bubble with no thrombus or PFO. Brain MRI with multifocal acute infarcts, however suspect likely similar to the MRI done at [place] - only able to compare reports and not imaging. Repeat CT head with recent R hemispheric infarcts - no hemorrhagic transformation. Since admission, mental status waxes/wanes with periods of unresponsiveness. Neurology consulted, appreciate assistance. CTA heart reviewed by Dr. Casiano of cardiology - no left atrial appendage thrombus, no significant ascending aortic calcification. No need for LEO per cards. PT/OT/ST to eval. Started on precedex gtt due to intermittent agitation. Discontinued this morning, 08/23 CM consulted for assistance with rehab on dc. Sedation induced hypotension Secondary to Precedex gtt. Levophed gtt. Resolved, now off precedex and levophed Monitor MAP Hypertension BPs elevated on admission. Toprol XL, Norvasc initiated. BPs generally reasonable. Monitor and adjust BP meds accordingly. Dementia with agitation Patient intermittently confused and tries to get out of bed. Redirection is difficult due to aphasia and language barrier. Ativan/Xanax/Haldol have caused severe somnolence. Will request family to stay with him as much as possible. Precedex discontinued this morning. Monitor Hypokalemia K down to 2.6. Mag wnl. Replaced and resolved. ELOISE Creatinine 1.4, previous 0.8 in June 2024 IVF Resolved. RLE pain Appears to have ecchymosis on the back of the leg - family/patient unaware of how he got this.. Suspect traumatic Trial of low dose muscle relaxant. Resolved. Cardiomyopathy No evidence of fluid overload. Echo with EF 40-45%. No change from prior echo at [facility] from 07/12/24. Consider BB Not on any diuretics. CAD Recently had stents X2 placed in June 2024 at [facility] Continue ASA/Brilinta DM2 Glucose increasing. Restarted home Lantus 6 units QHS Accu-Cheks QAC/HS Increased lantus to 10 uqhs SSI Monitor/adjust insulin as needed. Constipation Has had issues of severe constipation in the past. Continue home lactulose. BPH Continue Flomax. Malnutrition Classification: Moderate Malnutrition Moderate malnutrition associated with starvation related to oral health limitations secondary to dysphagia as evidenced by unintended weight loss of 10.3% in 6 months, mild-moderate fat loss noted inthe following areas: orbital and buccal, and mild-moderate muscle loss noted in the following areas: temples, clavicle, acromion and patella. Dietitian following SDOH Readmission, speaks Nepali. DVT Prophylaxis Heparin subcu Code status FULL Surrogate decision maker/POA: Son, Gladys along with his other children Critical care time spent separate from procedures of 45 minutes. This patient had a high probability of imminent or life-threatening deterioration due to carotid stenosis with string sign requiring heparin gtt and close monitoring for bleeding with recent multifocal CVA, which required my direct attention, intervention, and personal management. (Total time includes IDR spent on the patient, specialist discussion, nursing discussion, reviewinglabs, reviewing notes, documentation, orders, and examining the patient) Perlita Beavers MD 08/23/2024 8:31 AM * Kayley Neil RN - 08/22/2024 9:04 PM CDT Problem: Discharge Planning Goal: Knowledge of discharge instructions Outcome: Met This Shift Problem: Pain control/comfort Goal: Promote pain control/comfort Outcome: Met This Shift Problem: Skin integrity, Impaired-wound Goal: Absence of new skin breakdown Outcome: Met This Shift Goal: Evidence of wound healing Outcome: Met This Shift Problem: Skin integrity, Impaired-pressure injury/ulcer Goal: Absence of new skin breakdown Outcome: Met This Shift Goal: Evidence of pressure injury/ulcer healing Outcome: Met This Shift Problem: Skin integrity, at risk Goal: Absence of new skin breakdown Outcome: Met This Shift Problem: Moisture associated skin impairment Goal: Reduce moisture exposure Outcome: Met This Shift Goal: Evidence of wound healing Outcome: Met This Shift Goal: Evidence of pressure injury/ulcer healing Outcome: Met This Shift Goal: Absence of new skin breakdown Outcome: Met This Shift Problem: Reduced risk for falls/injury Goal: Reduced Risk for Falls/Injury Outcome: Met This Shift Goal: Reduced Risk of Confusion (Acute vs Chronic) Outcome: Met This Shift Goal: Reduced Risk of Symptomatic Depression Outcome: Met This Shift Goal: Reduced Risk of Altered Elimination Outcome: Met This Shift Goal: Reduced Risk of Dizziness/Vertigo/Balance Outcome: Met This Shift Goal: Reduced Risk of Polypharmacy Outcome: Met This Shift Problem: Violence, self/other directed, risk of Goal: Absence of violence Outcome: Met This Shift Problem: Balance Goal: STG - Pt to demonstrate static sitting balance at edge of bed Description: The patient will demonstrate static sitting balance at EOB = min/SBA x 5 minutes. Outcome: Met This Shift Problem: Transfers Goal: STG - Pt will perform bed mobility Description: The patient will increase all bed mobility activities to min/mod assist x 1. Outcome: Met This Shift Goal: STG - Pt will perform stand pivot transfer Description: The patient will perform stand pivot transfers to min/mod x 1. Outcome: Met This Shift Problem: Aspiration - Risk of Goal: Absence of aspiration Outcome: Met This Shift Problem: Mobility - Impaired Goal: Able to achieve maximum mobility level Outcome: Met This Shift Problem: Mood - Altered Goal: Alleviation of anxiety Outcome: Met This Shift Goal: Decrease in depressive symptoms Outcome: Met This Shift Problem: THROMBOLYTIC COMPLICATION - RISK OF ANGIOEDEMA AND BLEEDING Goal: Absence of angioedema Outcome: Met This Shift Goal: Absence of bleeding Outcome: Met This Shift Problem: Tissue Perfusion - Cerebral, Altered Goal: Absence of continued neurologic deterioration signs and symptoms Outcome: Met This Shift Problem: Verbal Communication - Impaired Goal: Effective communication Outcome: Met This Shift Goal: Increased social interaction Outcome: Met This Shift Problem: Discharge Planning Goal: Knowledge of discharge instructions Outcome: Met This Shift Problem: Grooming Goal: STG - Pt will complete grooming tasks from a seated position with Description: SBS/MIN A VCS FOR ATTN TO THE LEFT Outcome: Met This Shift Problem: Dressing: Upper Extremities Goal: STG - Pt will complete upper body dressing with Description: MOD A DELFINA TECH, VCS FOR ATTN TO LEFT Outcome: Met This Shift Problem: Transfers Goal: STG - Pt will perform a bedside commode transfer with Description: MOD A Pivot/BSC Outcome: Met This Shift Problem: Infection - Risk of, Urinary Catheter-Associated Urinary Tract Infection Goal: Absence of Urinary Catheter Associated Urinary Tract (UTI) Infection Signs and Symptoms Reactivated * Christiano Betancourt MD - 08/22/2024 2:45 PM CDT Hospitalist Daily Progress Note Subjective This is a 74-year-old y/o male who presents with CVA (cerebral vascular accident) ([facility] HHS/HCC). Patient restless this afternoon. Mumbling, but cannot understand. Not following commands or answering yes/no questions. Objective Filed Vitals: 08/22/24 1300 08/22/24 1315 08/22/24 1330 08/22/24 1345 BP: 134/81 (!) 167/77 (!) 147/76 134/69 Pulse: 80 88 89 91 Resp: 15 15 25 21 Temp: TempSrc: SpO2: 92% 97% 97% 97% Weight: Height: Physical Exam: Physical Exam Vitals reviewed. Constitutional: Appearance: He is well-developed. He is not ill-appearing. Cardiovascular: Rate and Rhythm: Normal rate and regular rhythm. Heart sounds: No murmur heard. Pulmonary: Effort: Pulmonary effort is normal. No respiratory distress. Breath sounds: Normal breath sounds. No wheezing. Abdominal: General: There is no distension. Palpations: Abdomen is soft. Tenderness: There is no abdominal tenderness. Musculoskeletal: General: No swelling. Skin: Findings: No rash. Neurological: Mental Status: He is alert. Comments: Intermittently moves L shoulder to gravity, moves L foot, L sided neglect present. Intake/Output 24H Total: Intake/Output Summary (Last 24 hours) at 08/22/2024 1445 Last data filed at 08/22/2024 1300 Gross per 24 hour Intake 612.54 ml Output 1150 ml Net -537.46 ml Medication aspirin 81 mg Oral Daily atorvastatin 80 mg Oral nightly insulin glargine 6 Units Subcutaneous Nightly at bedtime insulin lispro 0-14 Units Subcutaneous TID AC And insulin lispro 0-7 Units Subcutaneous Nightly at bedtime lactulose 10 g Oral TID ticagrelor 90 mg Oral BID dexmedetomidine 0.2 mcg/kg/hr (08/22/24 1423) heparin 800 Units/hr (08/22/24 0605) norepinephrine Stopped (08/22/24 0645) PRN Meds: acetaminophen, bisacodyl, cyclobenzaprine, haloperidol lactate, heparin AND heparin (porcine) AND heparin (porcine), melatonin, ondansetron Labs: Recent Results (from the past 24 hours) POCT glucose Collection Time: 08/21/24 4:32 PM Result Value Ref Range GLUCOSE POC 230 (H) 70 - 99 mg/dL HEPARIN, ANTI XA, UFH Collection Time: 08/21/24 6:46 PM Result Value Ref Range HEPARIN ANTI XA UFH 0.57 0.30 - 0.70 IU/ML POCT glucose Collection Time: 08/21/24 8:09 PM Result Value Ref Range GLUCOSE POC 232 (H) 70 - 99 mg/dL POCT glucose Collection Time: 08/21/24 11:14 PM Result Value Ref Range GLUCOSE POC 180 (H) 70 - 99 mg/dL HEPARIN, ANTI XA, UFH Collection Time: 08/22/24 1:17 AM Result Value Ref Range HEPARIN ANTI XA UFH 0.64 0.30 - 0.70 IU/ML BASIC METABOLIC PANEL Collection Time: 08/22/24 4:19 AM Result Value Ref Range GLUCOSE 258 (H) 70 - 99 MG/DL BUN 24 (H) 7 - 18 MG/DL CREATININE S/P/B 1.16 0.7 - 1.3 MG/DL SODIUM S/P/B 137 136 - 145 MMOL/L POTASSIUM S/P/B 3.6 3.5 - 5.1 MMOL/L CHLORIDE S/P/B 105 97 - 115 MMOL/L CO2 26.7 21 - 32 MMOL/L CALCIUM S/P/B 8.2 (L) 8.5 - 10.1 MG/DL ANION GAP 5.3 2 - 10 MMOL/L BUN CREATININE RATIO 20.7 6 - 26 GFR ESTIMATE 65 (L) >90 ML/MIN/1.73 M2 CBC W/DIFF AUTOMATED Collection Time: 08/22/24 4:19 AM Result Value Ref Range WBC 7.68 4.5 - 11.0 x10'3/uL RBC 4.27 (L) 4.70 - 6.10 x10'6/uL HGB 11.9 (L) 14.0 - 18.0 G/DL HCT 37.8 (L) 43.0 - 54.0 % MCV 88.5 80.0 - 94.0 FL MCH 27.9 27.0 - 31.0 PG MCHC 31.5 (L) 32.0 - 36.0 G/DL RDW 15.4 (H) 11.5 - 14.5 % PLT 243 130 - 400 x10'3/uL MPV 11.5 9.3 - 12.2 FL DIFFERENTIAL TYPE AUTOMATED DIFFERENTIAL NEUTROPHILS % 56.5 % LYMPHOCYTES % 30.7 % MONOCYTES % 7.7 % EOSINOPHILS 3.8 % BASOPHILS 1.0 % IMMATURE GRANS % 0.3 % ABS. NEUTROPHILS 4.34 1.80 - 7.70 x10'3/uL ABS. LYMPHOCYTES 2.36 1.00 - 4.80 x10'3/uL ABS. MONOCYTES 0.59 0.30 - 0.82 x10'3/uL ABS. EOSINOPHILS 0.29 0.04 - 0.54 x10'3/uL ABS. BASOPHILS 0.08 0.01 - 0.08 x10'3/uL ABS. IMMATURE GRANULOCYTES 0.02 0.00 - 0.49 x10'3/uL HEPARIN, ANTI XA, UFH Collection Time: 08/22/24 4:19 AM Result Value Ref Range HEPARIN ANTI XA UFH 0.65 0.30 - 0.70 IU/ML POCT glucose Collection Time: 08/22/24 5:29 AM Result Value Ref Range GLUCOSE POC 264 (H) 70 - 99 mg/dL POCT glucose Collection Time: 08/22/24 11:15 AM Result Value Ref Range GLUCOSE POC 289 (H) 70 - 99 mg/dL X-Ray CT head wo con (08/21/24): 1. No CT evidence of an acute intracranial hemorrhage. 2. Redemonstrated focal hypodensities within the right centrum semiovale and mccann radiata regionsof the right frontoparietal lobe. Additional right temporoparietal periventricular white matter hypodensities, as evidence for evolving acute infarcts. 3. 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 4. Moderate global cerebral volume loss. B carotid dopplers (08/20/24): The right internal carotid artery shows string sign with suspicious for distal disease. The left internal shows mild calcific disease. Bilateral vertebral arteries are antegrade bilaterally. CT head wo con (08/19/24): 1. Patchy recent right hemispheric infarcts, somewhat better delineated on the prior MRI. No large hemorrhagic transformation. No midline shift. Basal cisterns patent. 2. Small vessel disease and volume loss. Echo w con (08/18/24): The left ventricular size is normal. The [...] restless during the exam. Trace aortic regurgitation. MRI Brain wo con (08/17/24): Multifocal 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 Other chronic or nonurgent findings as described above. CTA head/neck (08/17/24): 1. Complete occlusion of right ICA from [...] artery. 8. Asymmetric diminished prominence of left [employer] WORKER territory vasculature with no focal high-grade stenosis appreciated. 9. Approximately 50% stenosis at origin of left ICA. Up to 60% stenosis of left ICA 9 mm above the origin. 10. Moderate stenosis at origin of left ECA. CXR (08/17/24): 1. No convincing new acute cardiopulmonary findings. CT head wo con (08/17/24): There is a focal area of hypoattenuation in the right occipital lobe posteriorly. This may relate to an area of ischemic change. This may be acute to subacute. This is new as compared to June 22, 2023. Diffuse white matter hypoattenuating areas suspected due to chronic small vessel ischemic disease. No midline shift. Results for orders placed or performed during the hospital encounter of 08/17/24 [address] [facility] [facility] Test Date: 2024-08-17 Pat Name: RAMÍREZ FERNANDO Department: 41 Room: A4 Gender: Male Insight Director: [id number] : 1950 Requested By: DENNIS GARZA Order Number: [id number] Reading MD: Mu Tai Measurements Intervals [place] Rate: 70 P: 49 MO: 175 QRS: -29 QRSD: 150 T: 115 QT: 442 QTc: 479 Interpretive Statements SINUS RHYTHM LEFT BUNDLE BRANCH BLOCK [120+ ms QRS DURATION, 80+ ms Q/S IN V1/V2, 85+ ms R IN I/aVL/V5/V6] Compared to ECG 06/22/2023 15:09:14 Left bundle-branch block now present T-wave abnormality no longer present Possible ischemia no longer present Other ischemic changes, not STEMI Preliminary EKG Interpretation by Dennis Garza M.D. ECG [address] [facility] [facility] [address] [place] [address] Test Date: 2024-08-21 Pat Name: RAMÍREZ FERNANDO Department: 40 Room: [facility] Gender: Male Insight Director: : 1950 Requested By: CHRISTIANO BETANCOURT Order Number: [id number] Reading MD: Kim Medina Measurements Intervals [place] Rate: 67 P: 16 MO: 169 QRS: 5 QRSD: 86 T: 142 QT: 438 QTc: 464 Interpretive Statements SINUS RHYTHM ST DEVIATION AND MODERATE T-WAVE ABNORMALITY, CONSIDER ANTEROLATERAL ISCHEMIA [-0.1+ mV T-WAVE IN V3-V6] Compared to ECG 08/17/2024 09:35:52 T-wave abnormality now present Possible ischemia now present Left bundle-branch block no longer present Assessment/Plan: Carotid stenosis CTA head/neck with complete occlusion of right ICA from 8 to 16 mm above its origin with reconstitution of the vessel more distally with decreased volume and opacity from the contralateral side. R ICA with string sign - concern for distal disease Vascular surgery consulted, appreciate recs. After discussion with Dr. Matthews of neurology and Dr. Padgett of vascular surgery, patient may benefit from R CEA. Heparin gtt initiated - monitoring in ICU given high risk of bleed. CT head after heparin gtt initiated with no evidence of bleed. Continue neurochecks q4 and close monitoring by ICU staff. Plan for R CEA tomorrow. Acute on chronic encephalopathy Recent CVA Patient presented to the hospital after being unresponsive since the night prior to admission. L side flaccid with dysphagia since recent CVA on 08/12. UA neg LE/nitrites Troponin WNL Lipid panel WNL CT head with focal area of hypoattenuation in the right occipital lobe posteriorly CTA head/neck with multiple areas of occlusion - ER reviewed with interventional neurology who feltno indication for intervention. Echo with bubble with no thrombus or PFO. Brain MRI with multifocal acute infarcts, however suspect likely similar to the MRI done at [place] - only able to compare reports and not imaging. Repeat CT head with recent R hemispheric infarcts - no hemorrhagic transformation. Since admission, mental status waxes/wanes with periods of unresponsiveness. Neurology consulted, appreciate assistance. CTA heart reviewed by Dr. Casiano of cardiology - no left atrial appendage thrombus, no significant ascending aortic calcification. No need for LEO per cards. PT/OT/ST to eval. On precedex gtt due to intermittent agitation. CM consulted for assistance with rehab on dc. Sedation induced hypotension Secondary to Precedex gtt. Levophed gtt. Hypertension BPs elevated on admission. Toprol XL, Norvasc initiated. BPs generally reasonable. Monitor and adjust BP meds accordingly. Dementia with agitation Patient intermittently confused and tries to get out of bed. Redirection is difficult due to aphasia and language barrier. Ativan/Xanax/Haldol have caused severe somnolence. Will request family to stay with him as much as possible. Currently on Precedex gtt as above. Hypokalemia K down to 2.6. Mag wnl. Replaced and resolved. ELOISE Creatinine 1.4, previous 0.8 in June 2024 IVF Resolved. RLE pain Appears to have ecchymosis on the back of the leg - family/patient unaware of how he got this.. Suspect traumatic Trial of low dose muscle relaxant. Resolved. Cardiomyopathy No evidence of fluid overload. Echo with EF 40-45%. No change from prior echo at [facility] from 07/12/24. Consider BB, though current BP low. Not on any diuretics. CAD Recently had stents X2 placed in June 2024 at [facility] Continue ASA/Brilinta DM2 Glucose increasing. Restarted home Lantus 6 units QHS Accu-Cheks QAC/HS SSI Monitor/adjust insulin as needed. Constipation Has had issues of severe constipation in the past. Continue home lactulose. BPH Continue Flomax. SDOH Readmission, speaks Nepali. DVT Prophylaxis Heparin subcu Code status FULL Surrogate decision maker/POA: Son, Gladys along with his other children Critical care time spent separate from procedures of 45 minutes. This patient had a high probability of imminent or life-threatening deterioration due to carotid stenosis with string sign requiring heparin gtt and close monitoring for bleeding with recent multifocal CVA, which required my direct attention, intervention, and personal management. (Total time includes IDR spent on the patient, specialist discussion, nursing discussion, reviewinglabs, reviewing notes, documentation, orders, and examining the patient) CHRISTIANO BETANCOURT MD 08/22/2024 2:45 PM * Lou Alvarez RN - 08/22/2024 1:00 PM CDT 08/22/24 1258 Interdisciplinary Group Conference Team Members Present Case/Care management;Nursing Patient Current Status Paient current status Inpatient Barriers to Discharge Inpatient Review Barriers to Discharge Inpatient No Barrier- Medical Milestone in Process;Mobility Progression Needs;Administering IV meds;Other (Comment) Other follow up (Comment) Midline placed, Precedex GTT, Hep GTT, Levophed GTT, Per IDR two or threemore days Patient expects to be discharged to Patient expects to be discharged to: [facility]( [facility] ([facility] has accepted) * Fernanda Garrett PTA - 08/22/2024 12:14 PM CDT 08/22/24 1058 Therapy Visit Ordering Provider Jose Subjective ICU 209: First attempt, RN requested to wait until later to allow pt to be more awake. Second attempt, RN ok to see and pt agreeable to therapy. Reason for admission DX: CVA Relevant Comorbidities/ Personal Factors to PT PMHX: BPH, dementia, HTN, unilateral inguinal hernia, CAD w/recent stenting Verified Two Patient Identifiers Yes Patient consents to therapy Yes Acute Inpatient PT Time Calculation PT Start Time 1058 PT Stop Time 1112 PT Time Calculation (min) 14 min Precautions General Precautions Bed Alarm;Chair Alarm;Fall Risk PPE Used Face mask;Gloves Instructed on Precautions No (secondary to language barrier) Other L side of body weakness with L neglect Pain Pain Patient does not offer or c/o pain Activity Tolerance Endurance Tolerates 10 - 20 min activity with rests Endurance Quality Fair Limiting Factors to Endurance Acute deconditioning;Weakness Activity Tolerance Comments Supine to sit with max assist. Pt sat EOB x 2-3 minutes with min assist. Noted pt with L inattention. Instructed in STS with max x 2 with no AD. Pt transferred toward the R with max/TA x 2. Cognition Overall Cognitive Status Impaired Attention Span Difficulty attending to directions Following Commands Follows one step commands with repetition (Follow with gestures/demo) Initiation Hand over hand to initiate tasks Other (Comment) impulsive Bed Mobility Supine to Sit Max assist to left TRANSFERS Stand Pivot Transfers Max assist;Total assist;Assist of 2 Sit to Stand Max assist;Assist of 2 Bed to Chair Max assist;Total assist;Assist of 2 Other (Comment) pt took 1 small side step toward chair Balance Sitting - Static Min Assist;Support of one upper extremity Sitting - Dynamic Mod Assist;Max Assist;Support of one upper extremity Standing - Static Max Assist;Assist of 2 Persons Standing - Dynamic Max Assist;Assist of 2 Persons;Support of one upper extremity (max/TA x 2) Modified Charlotte Score Pre-Morbid (Baseline) Score 0-6 3 Interval Daily Interval Score 0-6 4 Patient/Family Training Bed Mobility x Transfer Training x Precautions x Discharge Recommendation PT Recommendation Inpatient rehab PT Equipment Recommended To Be Determined Plan PT Treatments/Interventions Therapeutic Exercises;Therapeutic Activities;Neuromuscular re-education Progress Slow progress, medical status limitations PT Frequency 6 times/week If this is the last treatment note,it will serve as the discharge summary Yes End of Session End of Session Safety Chair alarm set/activated;Call light within reach;Nursing aware of session Interdisciplinary Collaboration RN * Ze Berger RN - 08/21/2024 10:25 PM CDT Problem: Reduced risk for falls/injury Goal: Reduced Risk of Confusion (Acute vs Chronic) Outcome: Not Progressing Problem: Discharge Planning Goal: Knowledge of discharge instructions Outcome: Progressing Problem: Pain control/comfort Goal: Promote pain control/comfort Outcome: Progressing Problem: Skin integrity, Impaired-wound Goal: Absence of new skin breakdown Outcome: Progressing Goal: Evidence of wound healing Outcome: Progressing Problem: Skin integrity, Impaired-pressure injury/ulcer Goal: Absence of new skin breakdown Outcome: Progressing Goal: Evidence of pressure injury/ulcer healing Outcome: Progressing Problem: Skin integrity, at risk Goal: Absence of new skin breakdown Outcome: Progressing Problem: Moisture associated skin impairment Goal: Reduce moisture exposure Outcome: Progressing Goal: Evidence of wound healing Outcome: Progressing Goal: Evidence of pressure injury/ulcer healing Outcome: Progressing Goal: Absence of new skin breakdown Outcome: Progressing Problem: Reduced risk for falls/injury Goal: Reduced Risk for Falls/Injury Outcome: Progressing Goal: Reduced Risk of Symptomatic Depression Outcome: Progressing Goal: Reduced Risk of Altered Elimination Outcome: Progressing Goal: Reduced Risk of Dizziness/Vertigo/Balance Outcome: Progressing Goal: Reduced Risk of Polypharmacy Outcome: Progressing Problem: Violence, self/other directed, risk of Goal: Absence of violence Outcome: Progressing Problem: Aspiration - Risk of Goal: Absence of aspiration Outcome: Progressing Problem: Mobility - Impaired Goal: Able to achieve maximum mobility level Outcome: Progressing Problem: Mood - Altered Goal: Alleviation of anxiety Outcome: Progressing Goal: Decrease in depressive symptoms Outcome: Progressing Problem: THROMBOLYTIC COMPLICATION - RISK OF ANGIOEDEMA AND BLEEDING Goal: Absence of angioedema Outcome: Progressing Goal: Absence of bleeding Outcome: Progressing Problem: Tissue Perfusion - Cerebral, Altered Goal: Absence of continued neurologic deterioration signs and symptoms Outcome: Progressing Problem: Verbal Communication - Impaired Goal: Effective communication Outcome: Progressing Goal: Increased social interaction Outcome: Progressing Problem: Discharge Planning Goal: Knowledge of discharge instructions Outcome: Progressing Nursing interventions implemented to prevent and manage delirium as appropriate. Communication board updated, Quiet Hours enforced , Foot traffic and procedures limited during Quiet Hours, Curtain closed and/or lights off, TV/music off, and Door closed * Jeanmarie Padgett MD - 08/21/2024 8:20 PM CDT Ramírez Fernando is a 74-year-old male Subjective: Generalized confusion CVA (cerebral vascular accident) ([facility]) Current Facility-Administered Medications Medication Dose Route Frequency Provider Last Rate Last Admin acetaminophen (TYLENOL) tablet 650 mg 650 mg Oral Q4H PRN Christiano Betancourt MD amLODIPine (NORVASC) tablet 5 mg 5 mg Oral Daily Christiano Betancourt MD 5 mg at 08/21/24 1243 aspirin chewable tablet 81 mg 81 mg Oral Daily Christiano Betancourt MD 81 mg at 08/21/24 1244 atorvastatin (LIPITOR) tablet 80 mg 80 mg Oral nightly Christiano Betancourt MD 80 mg at 08/21/242002 bisacodyl (DULCOLAX) suppository 10 mg 10 mg Rectal Daily PRN Christiano Betancourt MD cyclobenzaprine (FLEXERIL) tablet 5 mg 5 mg Oral TID PRN Christiano Betancourt MD 5 mg at 08/18/241844 dexmedetomidine (PRECEDEX) 400 mcg in NS 100 mL IV infusion 0.1-1.4 mcg/kg/hr Intravenous Continuous Jose Luis Lozano MD 3 mL/hr at 08/21/242009 0.2 mcg/kg/hr at 08/21/242009 haloperidol lactate (HALDOL) injection 2 mg 2 mg Intravenous Q6H PRN Christiano Betancourt MD 2 mg at 08/21/24 034 heparin 25,000 units in 250 mL 0.45% NaCl (100 units/mL) infusion 0-3,900 Units/hr Intravenous Continuous Christiano Betancourt MD 8 mL/hr at 08/21/24 1856 800 Units/hr at 08/21/24 185 And heparin (porcine) injection 5,000 Units 5,000 Units Intravenous PRN Christiano Betancourt MD And heparin (porcine) injection 2,500 Units 2,500 Units Intravenous PRN Christiano Betancourt MD insulin glargine (LANTUS) injection 6 Units 6 Units Subcutaneous Nightly at bedtime Christiano Betancourt MD 6 Units at 08/21/242017 insulin lispro (HUMALOG/ADMELOG) injection 0-14 Units 0-14 Units Subcutaneous TID AC Christiano Betancourt MD 6 Units at 08/21/24 1642 And insulin lispro (HUMALOG/ADMELOG) injection 0-7 Units 0-7 Units Subcutaneous Nightly at bedtime Brigitte Betancourt MD 3 Units at 08/21/242017 lactulose (CHRONULAC) 10 GM/15ML solution 10 g 10 g Oral TID Christiano Betancourt MD 10 g at 08/21/242002 melatonin tablet 3 mg 3 mg Oral Nightly PRN Christiano Betancourt MD 3 mg at 08/19/242043 metoprolol succinate ER (TOPROL-XL) 24 hr tablet 50 mg 50 mg Oral Daily Christiano Betancourt MD 50 mg at 08/21/24 1254 ondansetron (ZOFRAN) injection 4 mg 4 mg Intravenous Q8H PRN Christiano Betancourt MD tamsulosin (FLOMAX) capsule 0.4 mg 0.4 mg Oral Daily Christiano Betancourt MD 0.4 mg at 08/21/24 1243 ticagrelor (BRILINTA) tablet 90 mg 90 mg Oral BID Christiano Betancourt MD 90 mg at 08/21/242002 Allergies Allergen Reactions Hydroxypropyl Methylcellulose Unknown Artificial tears ingredient Gentamicin Other (see comment) and Unknown Reaction: Reaction: Review of Systems Constitutional: Positive for fatigue. Cardiovascular: Positive for chest pain. Psychiatric/Behavioral: Positive for confusion. Objective: I/O last 3 completed shifts: In: 433 [P.O.:360; I.V.:73] Out: 200 [Urine:200] Blood pressure 117/65, pulse 88, temperature 98.8 ??F (37.1 ??C), temperature source Temporal, resp. rate 22, height 1.626 m (5' 4 ), weight 60 kg (132 lb 4.4 oz), SpO2 97%. Physical Exam Vitals reviewed. Constitutional: Appearance: He is ill-appearing. Cardiovascular: Rate and Rhythm: Tachycardia present. Pulmonary: Effort: Pulmonary effort is normal. Neurological: Mental Status: He is disoriented. Motor: Weakness present. Lab Results Component Value Date NA 135 (L) 08/21/2024 K 3.6 08/21/2024 CL 104 08/21/2024 CO2 25.6 08/21/2024 AGAP 5.4 08/21/2024 BUN 18 08/21/2024 CR 1.01 08/21/2024 BUNCREATININ 17.8 08/21/2024 GFRNON 69 (L) 03/29/2021 GFR 80 (L) 03/29/2021 GLU 252 (H) 08/21/2024 CA 8.5 08/21/2024 Lab Results Component Value Date WBC 9.11 08/21/2024 HGB 13.1 (L) 08/21/2024 PLT 266 08/21/2024 Lab Results Component Value Date CHOL 115 08/17/2024 TRI 120 08/17/2024 HDL 43 08/17/2024 TP 7.7 08/17/2024 ALB 3.3 (L) 08/17/2024 ALT 23 08/17/2024 HGBA1C 7.8 (H) 08/17/2024 TSH 1.630 03/01/2024 Principal Problem: CVA (cerebral vascular accident) ([facility] HHS/HCC) SNOMED CT(R): CEREBROVASCULAR ACCIDENT Active Problems: Acute metabolic encephalopathy SNOMED CT(R): METABOLIC ENCEPHALOPATHY Carotid stenosis, right SNOMED CT(R): RIGHT CAROTID ARTERY STENOSIS Plan: The patient has a near occlusive lesion of the right artery. The patient is at high risk of recurrent stroke. I discussed treatment options with the patient's family members including carotid endarterectomy. I explained at length the patient has higher risk of complications during surgery butat higher risk of stroke if no intervention is performed. They expressed understanding and wished to proceed with surgery. JEANMARIE PADGETT MD 08/21/2024 * Lou Alvarez RN - 08/21/2024 4:42 PM CDT Discharge Planning 08/21 PASRR Level One completed and H/P faxed to [facility], and KEIRY notified. No Level Two required at this time per [facility].PASRR note for [facility] Individual ID#[id number] Assessment ID#[id number] * Christiano Betancourt MD - 08/21/2024 2:29 PM CDT Hospitalist Daily Progress Note Subjective This is a 74-year-old y/o male who presents with CVA (cerebral vascular accident) ([facility]). Patient engaging in conversation today. Denies any pain. Is concerned with weakness in his L hand.No other new issues. Objective Filed Vitals: 08/21/24 1000 08/21/24 1100 08/21/24 1200 08/21/24 1300 BP: (!) 144/77 (!) 158/77 (!) 144/62 130/68 Pulse: 76 75 81 92 Resp: 13 14 20 17 Temp: TempSrc: SpO2: 99% 99% 99% 99% Weight: Height: Physical Exam: Physical Exam Vitals reviewed. Constitutional: Appearance: He is well-developed. He is not ill-appearing. Cardiovascular: Rate and Rhythm: Normal rate and regular rhythm. Heart sounds: No murmur heard. Pulmonary: Effort: Pulmonary effort is normal. No respiratory distress. Breath sounds: Normal breath sounds. No wheezing. Abdominal: General: There is no distension. Palpations: Abdomen is soft. Tenderness: There is no abdominal tenderness. Musculoskeletal: General: No swelling. Skin: Findings: No rash. Neurological: Mental Status: He is alert. Comments: Intermittently moves L shoulder to gravity, moves L foot, L sided neglect present. Answering questions seemingly appropriately and dtr is able to understand speech without issue. Intake/Output 24H Total: Intake/Output Summary (Last 24 hours) at 08/21/2024 1429 Last data filed at 08/21/2024 0600 Gross per 24 hour Intake 253.04 ml Output -- Net 253.04 ml Medication amLODIPine 5 mg Oral Daily aspirin 81 mg Oral Daily atorvastatin 80 mg Oral nightly insulin glargine 6 Units Subcutaneous Nightly at bedtime insulin lispro 0-14 Units Subcutaneous TID AC And insulin lispro 0-7 Units Subcutaneous Nightly at bedtime lactulose 10 g Oral TID metoprolol succinate ER 50 mg Oral Daily tamsulosin 0.4 mg Oral Daily ticagrelor 90 mg Oral BID heparin 800 Units/hr (08/21/24 1301) PRN Meds: acetaminophen, bisacodyl, cyclobenzaprine, haloperidol lactate, heparin AND heparin (porcine) AND heparin (porcine), melatonin, ondansetron Labs: Recent Results (from the past 24 hours) POCT glucose Collection Time: 08/20/24 3:55 PM Result Value Ref Range GLUCOSE POC 286 (H) 70 - 99 mg/dL CBC W/DIFF AUTOMATED Collection Time: 08/20/24 6:00 PM Result Value Ref Range WBC 8.73 4.5 - 11.0 x10'3/uL RBC 4.86 4.70 - 6.10 x10'6/uL HGB 13.5 (L) 14.0 - 18.0 G/DL HCT 42.6 (L) 43.0 - 54.0 % MCV 87.7 80.0 - 94.0 FL MCH 27.8 27.0 - 31.0 PG MCHC 31.7 (L) 32.0 - 36.0 G/DL RDW 15.1 (H) 11.5 - 14.5 % PLT 247 130 - 400 x10'3/uL MPV 11.5 9.3 - 12.2 FL DIFFERENTIAL TYPE AUTOMATED DIFFERENTIAL NEUTROPHILS % 55.7 % LYMPHOCYTES % 31.7 % MONOCYTES % 8.1 % EOSINOPHILS 3.6 % BASOPHILS 0.7 % IMMATURE GRANS % 0.2 % ABS. NEUTROPHILS 4.86 1.80 - 7.70 x10'3/uL ABS. LYMPHOCYTES 2.77 1.00 - 4.80 x10'3/uL ABS. MONOCYTES 0.71 0.30 - 0.82 x10'3/uL ABS. EOSINOPHILS 0.31 0.04 - 0.54 x10'3/uL ABS. BASOPHILS 0.06 0.01 - 0.08 x10'3/uL ABS. IMMATURE GRANULOCYTES 0.02 0.00 - 0.49 x10'3/uL PARTIAL THROMBOPLASTIN TIME,PTT Collection Time: 08/20/24 6:00 PM Result Value Ref Range PTT 32.1 25.1 - 36.5 SEC PROTIME/INR, VENOUS Collection Time: 08/20/24 6:00 PM Result Value Ref Range PROTIME 10.6 10.2 - 12.9 SEC INR 0.9 POCT glucose Collection Time: 08/20/24 8:30 PM Result Value Ref Range GLUCOSE POC 146 (H) 70 - 99 mg/dL HEPARIN, ANTI XA, UFH Collection Time: 08/21/24 12:27 AM Result Value Ref Range HEPARIN ANTI XA UFH 1.57 (HH) 0.30 - 0.70 IU/ML HEPARIN, ANTI XA, UFH Collection Time: 08/21/24 1:51 AM Result Value Ref Range HEPARIN ANTI XA UFH 1.15 (HH) 0.30 - 0.70 IU/ML HEPARIN, ANTI XA, UFH Collection Time: 08/21/24 2:58 AM Result Value Ref Range HEPARIN ANTI XA UFH 0.80 (H) 0.30 - 0.70 IU/ML CBC W/DIFF AUTOMATED Collection Time: 08/21/24 4:07 AM Result Value Ref Range WBC 9.11 4.5 - 11.0 x10'3/uL RBC 4.78 4.70 - 6.10 x10'6/uL HGB 13.1 (L) 14.0 - 18.0 G/DL HCT 41.4 (L) 43.0 - 54.0 % MCV 86.6 80.0 - 94.0 FL MCH 27.4 27.0 - 31.0 PG MCHC 31.6 (L) 32.0 - 36.0 G/DL RDW 15.0 (H) 11.5 - 14.5 % PLT 266 130 - 400 x10'3/uL MPV 11.3 9.3 - 12.2 FL DIFFERENTIAL TYPE AUTOMATED DIFFERENTIAL NEUTROPHILS % 51.5 % LYMPHOCYTES % 34.6 % MONOCYTES % 9.1 % EOSINOPHILS 3.5 % BASOPHILS 1.0 % IMMATURE GRANS % 0.3 % ABS. NEUTROPHILS 4.69 1.80 - 7.70 x10'3/uL ABS. LYMPHOCYTES 3.15 1.00 - 4.80 x10'3/uL ABS. MONOCYTES 0.83 (H) 0.30 - 0.82 x10'3/uL ABS. EOSINOPHILS 0.32 0.04 - 0.54 x10'3/uL ABS. BASOPHILS 0.09 (H) 0.01 - 0.08 x10'3/uL ABS. IMMATURE GRANULOCYTES 0.03 0.00 - 0.49 x10'3/uL BASIC METABOLIC PANEL Collection Time: 08/21/24 4:07 AM Result Value Ref Range GLUCOSE 252 (H) 70 - 99 MG/DL BUN 18 7 - 18 MG/DL CREATININE S/P/B 1.01 0.7 - 1.3 MG/DL SODIUM S/P/B 135 (L) 136 - 145 MMOL/L POTASSIUM S/P/B 3.6 3.5 - 5.1 MMOL/L CHLORIDE S/P/B 104 97 - 115 MMOL/L CO2 25.6 21 - 32 MMOL/L CALCIUM S/P/B 8.5 8.5 - 10.1 MG/DL ANION GAP 5.4 2 - 10 MMOL/L BUN CREATININE RATIO 17.8 6 - 26 GFR ESTIMATE 77 (L) >90 ML/MIN/1.73 M2 HEPARIN, ANTI XA, UFH Collection Time: 08/21/24 4:07 AM Result Value Ref Range HEPARIN ANTI XA UFH 0.45 0.30 - 0.70 IU/ML POCT glucose Collection Time: 08/21/24 6:13 AM Result Value Ref Range GLUCOSE POC 232 (H) 70 - 99 mg/dL TROPONIN, QUANT Collection Time: 08/21/24 8:40 AM Result Value Ref Range TROPONIN I HIGH SENSITIVITY 55 <79 ng/L HEPARIN, ANTI XA, UFH Collection Time: 08/21/24 11:30 AM Result Value Ref Range HEPARIN ANTI XA UFH 0.71 (H) 0.30 - 0.70 IU/ML POCT glucose Collection Time: 08/21/24 12:47 PM Result Value Ref Range GLUCOSE POC 196 (H) 70 - 99 mg/dL X-Ray B carotid dopplers (08/20/24): The right internal carotid artery shows string sign with suspicious for distal disease. The left internal shows mild calcific disease. Bilateral vertebral arteries are antegrade bilaterally. CT head wo con (08/19/24): 1. Patchy recent right hemispheric infarcts, somewhat better delineated on the prior MRI. No large hemorrhagic transformation. No midline shift. Basal cisterns patent. 2. Small vessel disease and volume loss. Echo w con (08/18/24): The left ventricular size is normal. The [...] restless during the exam. Trace aortic regurgitation. MRI Brain wo con (08/17/24): Multifocal 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 Other chronic or nonurgent findings as described above. CTA head/neck (08/17/24): 1. Complete occlusion of right ICA from [...] artery. 8. Asymmetric diminished prominence of left [employer]BR[employer] WORKER territory vasculature with no focal high-grade stenosis appreciated. 9. Approximately 50% stenosis at origin of left ICA. Up to 60% stenosis of left ICA 9 mm above the origin. 10. Moderate stenosis at origin of left ECA. CXR (08/17/24): 1. No convincing new acute cardiopulmonary findings. CT head wo con (08/17/24): There is a focal area of hypoattenuation in the right occipital lobe posteriorly. This may relate to an area of ischemic change. This may be acute to subacute. This is new as compared to June 22, 2023. Diffuse white matter hypoattenuating areas suspected due to chronic small vessel ischemic disease. No midline shift. Results for orders placed or performed during the hospital encounter of 08/17/24 [address] [facility] [address] Test Date: 2024-08-17 Pat Name: RAMÍREZ FERNANDO Department: 41 Room: [facility] Gender: Male Insight Director: [id number] : 1950 Requested By: DENNIS GARZA Order Number: [id number] Reading MD: Mu Tai Measurements Intervals [place] Rate: 70 P: 49 MO: 175 QRS: -29 QRSD: 150 T: 115 QT: 442 QTc: 479 Interpretive Statements SINUS RHYTHM LEFT BUNDLE BRANCH BLOCK [120+ ms QRS DURATION, 80+ ms Q/S IN V1/V2, 85+ ms R IN I/aVL/V5/V6] Compared to ECG 06/22/2023 15:09:14 Left bundle-branch block now present T-wave abnormality no longer present Possible ischemia no longer present Other ischemic changes, not STEMI Preliminary EKG Interpretation by Dennis Garza M.D. ECG 12 lead Narrative [facility] [address] [facility] Test Date: 2024-08-21 Pat Name: RAMÍREZ FERNANDO Department: 40 Room: [facility] Gender: Male Insight Director: : 1950 Requested By: CHRISTIANO BETANCOURT Order Number: [id number] Reading MD: Measurements Intervals [place] Rate: 67 P: 16 MO: 169 QRS: 5 QRSD: 86 T: 142 QT: 438 QTc: 464 Interpretive Statements SINUS RHYTHM ST DEVIATION AND MODERATE T-WAVE ABNORMALITY, CONSIDER ANTEROLATERAL ISCHEMIA [-0.1+ mV T-WAVE IN V3-V6] Compared to ECG 08/17/2024 09:35:52 T-wave abnormality now present Possible ischemia now present Left bundle-branch block no longer present Assessment/Plan: Carotid stenosis CTA head/neck with complete occlusion of right ICA from 8 to 16 mm above its origin with reconstitution of the vessel more distally with decreased volume and opacity from the contralateral side. R ICA with string sign - concern for distal disease Vascular surgery consulted, appreciate recs. After discussion with Dr. Matthews of neurology and Dr. Padgett of vascular surgery, patient may benefit from R CEA. Heparin gtt initiated - monitoring in ICU given high risk of bleed. CT head this morning with no evidence of bleed. Continue neurochecks q4 and close monitoring by ICU staff. Acute on chronic encephalopathy Recent CVA Patient presented to the hospital after being unresponsive since the night prior to admission. L side flaccid with dysphagia since recent CVA on 08/12. UA neg LE/nitrites Troponin WNL Lipid panel WNL CT head with focal area of hypoattenuation in the right occipital lobe posteriorly CTA head/neck with multiple areas of occlusion - ER reviewed with interventional neurology who feltno indication for intervention. Echo with bubble with no thrombus or PFO. Brain MRI with multifocal acute infarcts, however suspect likely similar to the MRI done at [place] - only able to compare reports and not imaging. Repeat CT head with recent R hemispheric infarcts - no hemorrhagic transformation. Since admission, mental status waxes/wanes with periods of unresponsiveness. Neurology consulted, appreciate assistance. CTA heart reviewed by Dr. Casiano of cardiology - no left atrial appendage thrombus, no significant ascending aortic calcification. No need for LEO per cards. PT/OT/ST to eval. CM consulted for assistance with rehab on dc. Hypertension BPs elevated on admission. Toprol XL, Norvasc initiated. BPs generally reasonable. Monitor and adjust BP meds accordingly. Dementia with agitation Patient intermittently confused and tries to get out of bed. Redirection is difficult due to aphasia and language barrier. Ativan/Xanax have caused severe somnolence. Will request family to stay with him as much as possible. Haldol prn -did cause somnolence, but better than Ativan/Xanax. Attempt to avoid as much as possible. Hypokalemia K down to 2.6. Mag wnl. Replaced and resolved. ELOISE Creatinine 1.4, previous 0.8 in June 2024 IVF Resolved. RLE pain Appears to have ecchymosis on the back of the leg. Suspect traumatic - family/patient unaware of how he got this. Trial of low dose muscle relaxant. Resolved. Cardiomyopathy No evidence of fluid overload. Echo with EF 40-45%. No change from prior echo at [facility] from 07/12/24. Consider BB, though current BP low. Not on any diuretics. CAD [facility] [place] Continue ASA/Brilinta DM2 Glucose increasing. Restarted home Lantus 6 units QHS Accu-Cheks QAC/HS SSI Monitor/adjust insulin as needed. Constipation Has had issues of severe constipation in the past. Continue home lactulose. BPH Continue Flomax. SDOH Readmission, speaks Nepali. DVT Prophylaxis Heparin subcu Code status FULL Surrogate decision maker/POA: SonGladys along with his other children Updated dtr in room. Critical care time spent separate from procedures of 45 minutes. This patient had a high probability of imminent or life-threatening deterioration due to carotid stenosis with string sign requiring heparin gtt and close monitoring for bleeding with recent multifocal CVA, which required my direct attention, intervention, and personal management. (Total time includes IDR spent on the patient, specialist discussion, nursing discussion, reviewinglabs, reviewing notes, documentation, orders, and examining the patient) CHRISTIANO BETANCOURT MD 08/21/2024 2:29 PM * Abundio Lee RN - 08/21/2024 2:02 PM CDT Traditional (trimmable) Midline Placement Order Details: Order received for midline placement. Chart reviewed. Indication for insertion: Poor IV Access. Order verified with JEREMY Newby. Time out: Time out performed with JEREMY Newby. Patient name, , and armband verified. Consent obtained and inchart. Ultrasound Examination: Upper arm vasculature examined at the bedside via ultrasound. No signs or symptoms of thrombus (e.g.,swelling, redness, pain, echogenicities) noted in the extremity where midline was inserted. The largest vessel suitable for midline placement was utilized; the vessel was non-pulsatile and easily compressible. Per [facility] 8 Ultrasound CVR is 32 % for a 4 icelandic catheter and a vein diameter of 4.0mm. The patient encouraged to move arm with midline to promote circulation and prevent thrombus formation. Aseptic Technique: Aseptic technique was strictly followed: hand hygiene performed, sterile gown, sterile gloves, mask, goggles, cap, sterile probe cover, and large sterile drape used. The site was prepped with chlorhexidine scrub and allowed to dry completely prior to first skin puncture utilizing. Local Anesthetic: Lidocaine 1%, 3 mL administered subcutaneously to insertion site prior to insertion. Cannulation Procedure: Ultrasound utilized with: one attempt to the right basilic vein. Cannulation of vessel confirmed through direct visualization of the needle tip within the target vessel. The guidewire was advanced through the needle with no issues, the needle was removed intact. The introducer/dilator was placed over the wire, and the guidewire was removed; it was inspected and confirmed to be completely intact. Catheter Placement: The midline was then trimmed to the documented length and advanced into the axillary region. The catheter guidewire was removed; it was inspected and confirmed to be completely intact. Tip Verification: Tip verified with brisk whole blood return and flushes freely with no pain or swelling. Dressing and Stabilization: A skin barrier was applied, and the midline was secured with StatLock stabilization device. A transparent dressing with a CHG disc was applied. Date/time and initials applied. Blood return obtained and the lumen was flushed without resistance. A curo cap was applied to the needleless connector. Line is okay to use. Complications: Detail of complication: None Post-Procedure Instructions: If the insertion site begins to bleed or leak, apply a small pressure dressing over insertion site for 20 minutes or until bleeding stops. If necessary, change dressing and stat-lock if blood extendsbeyond the CHG Gel/disc coverage area 24 hours post insertion. StatSeal or QuikClot may be applied before placing a new dressing. If StatSeal is utilized, hold pressure over insertion site for 5-10 mi nutes before re-dressing to ensure coagulation at the site. Patient Response: Patient response: Good, no issues. Safety Check: Safety check complete, bed in low locked position with side rails up x 3. Call light and belongingswithin reach. JEREMY Newby updated. Special Instructions: ---DO NOT use midline catheters for continuous vesicant infusions due to reduced ability to identify early signs of extravasation--- Milton CHRISTIE, RN, PHRN, EMTP * Wade Hernandez RN - 08/21/2024 2:00 PM CDT Problem: Discharge Planning Goal: Knowledge of discharge instructions Outcome: Progressing Problem: Pain control/comfort Goal: Promote pain control/comfort Outcome: Progressing Problem: Skin integrity, Impaired-wound Goal: Absence of new skin breakdown Outcome: Progressing Goal: Evidence of wound healing Outcome: Progressing Problem: Moisture associated skin impairment Goal: Reduce moisture exposure Outcome: Progressing Goal: Evidence of wound healing Outcome: Progressing Goal: Evidence of pressure injury/ulcer healing Outcome: Progressing Goal: Absence of new skin breakdown Outcome: Progressing Problem: Reduced risk for falls/injury Goal: Reduced Risk for Falls/Injury Outcome: Progressing Goal: Reduced Risk of Confusion (Acute vs Chronic) Outcome: Progressing Goal: Reduced Risk of Symptomatic Depression Outcome: Progressing Goal: Reduced Risk of Altered Elimination Outcome: Progressing Goal: Reduced Risk of Dizziness/Vertigo/Balance Outcome: Progressing Goal: Reduced Risk of Polypharmacy Outcome: Progressing Problem: Violence, self/other directed, risk of Goal: Absence of violence Outcome: Progressing Problem: THROMBOLYTIC COMPLICATION - RISK OF ANGIOEDEMA AND BLEEDING Goal: Absence of angioedema Outcome: Progressing Goal: Absence of bleeding Outcome: Progressing Problem: Tissue Perfusion - Cerebral, Altered Goal: Absence of continued neurologic deterioration signs and symptoms Outcome: Progressing ..Nursing interventions implemented to prevent and manage delirium as appropriate. Communication board updated, Education provided on delirium prevention and management including Quiet Hours, Quiet Hours enforced , Foot traffic and procedures limited during Quiet Hours, Curtain open and/or lights on , TV/music on, and Door open * Lou Alvarez RN - 08/21/2024 1:11 PM CDT 08/21/24 1309 Interdisciplinary Group Conference Team Members Present Case/Care management;Nursing Patient Current Status Paient current status Inpatient Barriers to Discharge Inpatient Review Barriers to Discharge Inpatient No Barrier- Medical Milestone in Process;Administering IV meds;Mobility Progression Needs;Other (Comment) Other follow up (Comment) Hep GTT, IVF, per IDR D/C 2 days- Patient expects to be discharged to Patient expects to be discharged to: [facility] 08/21- [facility] has accepted patient. [facility] has declined but will reconsider with future improvement. Spoke with dtr- she is agreeable to [facility] in [place] post D/C. Spoke with Maryam to inform of decision. * Fernanda Garrett PTA - 08/21/2024 9:42 AM CDT 08/21/24 0833 Therapy Visit Ordering Provider Jose Perez ICU 209: Per RN, hold therapy as pt going for a CT and also recieved a sedative and sleeping soundly. Will check back at later time/date. Reason for admission DX: CVA * Ze Berger RN - 08/21/2024 1:06 AM CDT Problem: Reduced risk for falls/injury Goal: Reduced Risk of Confusion (Acute vs Chronic) Outcome: Not Progressing Problem: Discharge Planning Goal: Knowledge of discharge instructions Outcome: Progressing Problem: Pain control/comfort Goal: Promote pain control/comfort Outcome: Progressing Problem: Skin integrity, Impaired-wound Goal: Absence of new skin breakdown Outcome: Progressing Goal: Evidence of wound healing Outcome: Progressing Problem: Skin integrity, Impaired-pressure injury/ulcer Goal: Absence of new skin breakdown Outcome: Progressing Goal: Evidence of pressure injury/ulcer healing Outcome: Progressing Problem: Skin integrity, at risk Goal: Absence of new skin breakdown Outcome: Progressing Problem: Moisture associated skin impairment Goal: Reduce moisture exposure Outcome: Progressing Goal: Evidence of wound healing Outcome: Progressing Goal: Evidence of pressure injury/ulcer healing Outcome: Progressing Goal: Absence of new skin breakdown Outcome: Progressing Problem: Reduced risk for falls/injury Goal: Reduced Risk for Falls/Injury Outcome: Progressing Goal: Reduced Risk of Symptomatic Depression Outcome: Progressing Goal: Reduced Risk of Altered Elimination Outcome: Progressing Goal: Reduced Risk of Dizziness/Vertigo/Balance Outcome: Progressing Goal: Reduced Risk of Polypharmacy Outcome: Progressing Problem: Violence, self/other directed, risk of Goal: Absence of violence Outcome: Progressing Problem: Aspiration - Risk of Goal: Absence of aspiration Outcome: Progressing Problem: Mobility - Impaired Goal: Able to achieve maximum mobility level Outcome: Progressing Problem: Mood - Altered Goal: Alleviation of anxiety Outcome: Progressing Goal: Decrease in depressive symptoms Outcome: Progressing Problem: THROMBOLYTIC COMPLICATION - RISK OF ANGIOEDEMA AND BLEEDING Goal: Absence of angioedema Outcome: Progressing Goal: Absence of bleeding Outcome: Progressing Problem: Tissue Perfusion - Cerebral, Altered Goal: Absence of continued neurologic deterioration signs and symptoms Outcome: Progressing Problem: Verbal Communication - Impaired Goal: Effective communication Outcome: Progressing Goal: Increased social interaction Outcome: Progressing Problem: Discharge Planning Goal: Knowledge of discharge instructions Outcome: Progressing Nursing interventions implemented to prevent and manage delirium as appropriate. Communication board updated, Quiet Hours enforced , Foot traffic and procedures limited during Quiet Hours, Curtain closed and/or lights off, TV/music off, and Door closed * Christiano Betancourt MD - 08/20/2024 3:54 PM CDT Hospitalist Daily Progress Note Subjective This is a 74-year-old y/o male who presents with CVA (cerebral vascular accident) ([facility]). Patient alert. Aphasia prevents him from giving a history at the time of my visit, however daughter notes he was speaking with her earlier and she was able to understand him. Objective Filed Vitals: 08/20/24 0300 08/20/24 0429 08/20/24 0746 08/20/24 1104 BP: (!) 159/88 (!) 159/88 (!) 132/100 (!) 150/85 Pulse: 91 92 85 85 Resp: Temp: 98.5 ??F (36.9 ??C) 97.4 ??F (36.3 ??C) 97.7 ??F (36.5 ??C) 97.6 ??F (36.4 ??C) TempSrc: Axillary Axillary Axillary Axillary SpO2: 96% 98% 98% 98% Weight: Height: Physical Exam: Physical Exam Vitals reviewed. Constitutional: Appearance: He is well-developed. He is not ill-appearing. Cardiovascular: Rate and Rhythm: Normal rate and regular rhythm. Heart sounds: No murmur heard. Pulmonary: Effort: Pulmonary effort is normal. No respiratory distress. Breath sounds: Normal breath sounds. No wheezing. Abdominal: General: There is no distension. Palpations: Abdomen is soft. Tenderness: There is no abdominal tenderness. Musculoskeletal: General: No swelling. Skin: Findings: No rash. Neurological: Mental Status: He is alert. Comments: Flaccid L side, L sided neglect Intake/Output 24H Total: Intake/Output Summary (Last 24 hours) at 08/20/2024 1557 Last data filed at 08/19/2024 1800 Gross per 24 hour Intake 20 ml Output 750 ml Net -730 ml Medication aspirin 81 mg Oral Daily atorvastatin 80 mg Oral nightly heparin (porcine) 5,000 Units Subcutaneous 2 times per day insulin lispro 0-14 Units Subcutaneous TID AC And insulin lispro 0-7 Units Subcutaneous Nightly at bedtime lactulose 10 g Oral TID metoprolol succinate ER 50 mg Oral Daily tamsulosin 0.4 mg Oral Daily ticagrelor 90 mg Oral BID sodium chloride PRN Meds: acetaminophen, bisacodyl, cyclobenzaprine, melatonin, ondansetron, sodium chloride Labs: Recent Results (from the past 24 hours) POCT glucose Collection Time: 08/19/24 7:57 PM Result Value Ref Range GLUCOSE POC 168 (H) 70 - 99 mg/dL CBC W/DIFF AUTOMATED Collection Time: 08/20/24 5:48 AM Result Value Ref Range WBC 7.59 4.5 - 11.0 x10'3/uL RBC 4.68 (L) 4.70 - 6.10 x10'6/uL HGB 13.1 (L) 14.0 - 18.0 G/DL HCT 40.7 (L) 43.0 - 54.0 % MCV 87.0 80.0 - 94.0 FL MCH 28.0 27.0 - 31.0 PG MCHC 32.2 32.0 - 36.0 G/DL RDW 15.1 (H) 11.5 - 14.5 % PLT 244 130 - 400 x10'3/uL MPV 11.3 9.3 - 12.2 FL DIFFERENTIAL TYPE AUTOMATED DIFFERENTIAL NEUTROPHILS % 63.3 % LYMPHOCYTES % 23.2 % MONOCYTES % 9.1 % EOSINOPHILS 3.0 % BASOPHILS 0.9 % IMMATURE GRANS % 0.5 % ABS. NEUTROPHILS 4.80 1.80 - 7.70 x10'3/uL ABS. LYMPHOCYTES 1.76 1.00 - 4.80 x10'3/uL ABS. MONOCYTES 0.69 0.30 - 0.82 x10'3/uL ABS. EOSINOPHILS 0.23 0.04 - 0.54 x10'3/uL ABS. BASOPHILS 0.07 0.01 - 0.08 x10'3/uL ABS. IMMATURE GRANULOCYTES 0.04 0.00 - 0.49 x10'3/uL BASIC METABOLIC PANEL Collection Time: 08/20/24 5:48 AM Result Value Ref Range GLUCOSE 277 (H) 70 - 99 MG/DL BUN 16 7 - 18 MG/DL CREATININE S/P/B 1.03 0.7 - 1.3 MG/DL SODIUM S/P/B 136 136 - 145 MMOL/L POTASSIUM S/P/B 3.5 3.5 - 5.1 MMOL/L CHLORIDE S/P/B 106 97 - 115 MMOL/L CO2 24.6 21 - 32 MMOL/L CALCIUM S/P/B 8.2 (L) 8.5 - 10.1 MG/DL ANION GAP 5.4 2 - 10 MMOL/L BUN CREATININE RATIO 15.5 6 - 26 GFR ESTIMATE 75 (L) >90 ML/MIN/1.73 M2 POCT glucose Collection Time: 08/20/24 6:03 AM Result Value Ref Range GLUCOSE POC 279 (H) 70 - 99 mg/dL POCT glucose Collection Time: 08/20/24 11:09 AM Result Value Ref Range GLUCOSE POC 230 (H) 70 - 99 mg/dL X-Ray B carotid dopplers (08/20/24): The right internal carotid artery shows string sign with suspicious for distal disease. The left internal shows mild calcific disease. Bilateral vertebral arteries are antegrade bilaterally. CT head wo con (08/19/24): 1. Patchy recent right hemispheric infarcts, somewhat better delineated on the prior MRI. No large hemorrhagic transformation. No midline shift. Basal cisterns patent. 2. Small vessel disease and volume loss. Echo w con (08/18/24): The left ventricular size is normal. The [...] restless during the exam. Trace aortic regurgitation. MRI Brain wo con (08/17/24): Multifocal 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 Other chronic or nonurgent findings as described above. CTA head/neck (08/17/24): 1. Complete occlusion of right ICA from [...] artery. 8. Asymmetric diminished prominence of left EMBROIDERY WORKER territory vasculature with no focal high-grade stenosis appreciated. 9. Approximately 50% stenosis at origin of left ICA. Up to 60% stenosis of left ICA 9 mm above the origin. 10. Moderate stenosis at origin of left ECA. CXR (08/17/24): 1. No convincing new acute cardiopulmonary findings. CT head wo con (08/17/24): There is a focal area of hypoattenuation in the right occipital lobe posteriorly. This may relate to an area of ischemic change. This may be acute to subacute. This is new as compared to June 22, 2023. Diffuse white matter hypoattenuating areas suspected due to chronic small vessel ischemic disease. No midline shift. Results for orders placed or performed during the hospital encounter of 08/17/24 ECG [address] [facility] [address] Test Date: 2024-08-17 Pat Name: RAMÍREZ FERNANDO Department: 41 Room: [facility] Gender: Male Insight Director: [id number] : 1950 Requested By: DENNIS GARZA Order Number: [id number] Reading MD: Mu Tai Measurements Intervals [place] Rate: 70 P: 49 MO: 175 QRS: -29 QRSD: 150 T: 115 QT: 442 QTc: 479 Interpretive Statements SINUS RHYTHM LEFT BUNDLE BRANCH BLOCK [120+ ms QRS DURATION, 80+ ms Q/S IN V1/V2, 85+ ms R IN I/aVL/V5/V6] Compared to ECG 06/22/2023 15:09:14 Left bundle-branch block now present T-wave abnormality no longer present Possible ischemia no longer present Other ischemic changes, not STEMI Preliminary EKG Interpretation by Dennis Garza M.D. Assessment/Plan: Acute on chronic encephalopathy Recent CVA Patient presented to the hospital after being unresponsive since the night prior to admission. L side flaccid with dysphagia since recent CVA on 08/12. UA neg LE/nitrites Troponin WNL Lipid panel WNL CT head with focal area of hypoattenuation in the right occipital lobe posteriorly CTA head/neck with multiple areas of occlusion - ER reviewed with interventional neurology who feltno indication for intervention. Echo with bubble with no thrombus or PFO. Brain MRI with multifocal acute infarcts, however suspect likely similar to the MRI done at [place] - only able to compare reports and not imaging. Repeat CT head with recent R hemispheric infarcts - no hemorrhagic transformation. Since admission, mental status waxes/wanes with periods of unresponsiveness. Neurology consulted, appreciate assistance. Passed bedside swallow and tolerating meds/diet when alert. LEO ordered to r/o thrombus due to multifocal infarcts. PT/OT/ST to eval. CM consulted for assistance with rehab on dc. Carotid stenosis CTA head/neck with complete occlusion of right ICA from 8 to 16 mm above its origin with reconstitution of the vessel more distally with decreased volume and opacity from the contralateral side. R ICA with string sign - concern for distal disease Vascular surgery consulted, appreciate recs. After discussion with Dr. Matthews of neurology and Dr. Padgett of vascular surgery, patient may benefit from R CEA. Heparin gtt initiated - will transfer to ICU for close monitoring and neuro checks at the advice ofDr. Matthews of neurology. Repeat CT head in am to ensure no evidence of bleeding. Dementia with agitation Patient intermittently confused and tries to get out of bed. Redirection is difficult due to aphasia and language barrier. Ativan/Xanax have caused severe somnolence. Will request family to stay with him as much as possible. Trial of Haldol prn. Hypokalemia K down to 2.6. Mag wnl. Replaced and resolved. ELOISE Creatinine 1.4, previous 0.8 in June 2024 IVF Resolved. RLE pain Appears to have ecchymosis on the back of the leg. Suspect traumatic - family/patient unaware of how he got this. Trial of low dose muscle relaxant. Resolved. Cardiomyopathy No evidence of fluid overload. Echo with EF 40-45%. No change from prior echo at [facility] [place] from 07/12/24. Consider BB, though current BP low. Not on any diuretics. CAD Recently had stents X2 placed in June 2024 at [facility] Continue ASA/Brilinta DM2 Glucose increasing. Restart home Lantus 6 units QHS Accu-Cheks every 6 hours SSI Constipation Has had issues of severe constipation in the past. Continue home lactulose. BPH Continue Flomax. SDOH Readmission, speaks Nepali. DVT Prophylaxis Heparin subcu Code status FULL Surrogate decision maker/POA: Son, Gladys along with his other children Updated dtr in room. Critical care time spent separate from procedures of 45 minutes. This patient had a high probability of imminent or life-threatening deterioration due to carotid stenosis with string sign requiring heparin gtt and close monitoring for bleeding with recent multifocal CVA, which required my direct attention, intervention, and personal management. (Total time includes IDR spent on the patient, specialist discussion, nursing discussion, reviewinglabs, reviewing notes, documentation, orders, and examining the patient) CHRISTIANO BETANCOURT MD 08/20/2024 3:54 PM * JUAN JOSE Olmstead - 08/20/2024 2:37 PM CDT Request for Documentation Clarification Ramírez Trejo ; VISIT [id number] Query Response Sent: 08/20/24 14:37 CDT From: Nadege Vasquez APNP Query question: Based on medical judgment and consideration of these clinical indicators, the following condition was evaluated, monitored and/or treated during this episode of care Provider response: Other: multifactorial Original Query Sent: 08/20/24 12:10 CDT From: Marie Linares RN, CDI To: Nadege Vasquez APNP By submitting this query, we are seeking further clarification of documentation to accurately reflect all conditions that you monitored, evaluated, treated, or that may have extended the hospitalization or utilization of additional resources for care. Chart review has indicated your clinical opinion is needed regarding the following diagnosis. Your response serves as your authenticated entry to the Legal Medical Record. The fact that a question isasked does not imply that any particular diagnosis is desired or expected. Based on medical judgment and consideration of these clinical indicators, the following condition was evaluated, monitored and/or treated during this episode of care * Drug induced encephalopathy * Metabolic encephalopathy * Other Clinical Information CT STROKE(HEAD WO) by Dennis Garza at 08/17/2024 10:05 Encephalomalacia is present in the region of the right posterior parietal lobe. This is unchanged ED Prov Note by Dennis Garza at 08/17/2024 11:13 Patient was at baseline until about 1600 after taking xanax 0.25 mg for the first time yesterday. He was also able to take his BP medications at 2030. At 2300, patient's son tried waking him up to get him to the bathroom, but patient was unresponsive and could not speak. His son carried him to [facility]. His son called EMS this morning. En route, his BS ws 244. In this ED, patient cannot follow any commands, but responds to verbal stimuli. H&P by Nadege Vasquez at 08/17/2024 13:34 Acute on chronic encephalopathy in the setting of dementia and recent CVA Patient presented to the hospital after being unresponsive since last night PROGRESS by Christiano Betancourt at 08/19/2024 15:49 May be due to Xanax - had never before had a dose. MRI BRAIN WO CON by Nadege Vasquez at 08/17/2024 15:11 IMPRESSION: Multifocal 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 * Calista Chirinos, OTR - 08/20/2024 12:12 PM CDT 08/20/24 1130 Therapy Visit OT Evaluation Completed on 08/20/24 Reason for admission CVA Comorbidities Relevant to OT HLD, incont, HLD, encephalopathy, colitis, Dementia, BPH, CAD Ordering Provider Jose Verified Two Patient Identifiers Yes Patient consents to therapy Yes Acute Inpatient OT Time Calculation OT Start Time 1130 OT Stop Time 1153 OT Time Calculation (min) 23 min Precautions Weight Bearing Status Full weight bearing General Precautions Bed Alarm;Chair Alarm;Fall Risk PPE Used Face mask;Gloves Instructed on Precautions No Skin Integrity intact Subjective Subjective RM 422 OT orders received. EMR reviewed. RN aware. Pt agreeable. Family member present for part of the session Home Living Type of Home House Home Layout Two level;Able to live on main level with bedroom/bathroom Home Accessibility 5+ Steps to enter;Unilateral rail Bathroom Shower/Tub Tub/shower unit Bathroom Toilet Standard Toilet Bathroom Equipment Tub/shower chair with back Bathroom Accessibility Accessible Home Equipment Straight cane;2 Wheeled walker Home Living Comments inform obtained from the EMR, language barrier Prior Function Level of [place] Independent with functional transfers;Independent with ambulation;Needs assistance with ADLs;Needs assistance with homemaking Device used at baseline 2 Wheeled walker Baseline Ambulation Distance/Assistance household Fall History Yes Reason for fall unclear Most recent fall last yr? How many falls in the past year? 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 Pain Pain Patient does not offer or c/o pain Activity Tolerance Endurance Tolerates 10 - 20 min activity with rests Endurance Quality Fair Limiting Factors to Endurance Acute deconditioning;Decreased alertness;Weakness Vision - Basic Assessment Current Vision Wears glasses Vision - Complex Assessment Ocular Range of Motion Restricted on the right Head Position Head tilt Tracking Unable to test secondary to decreased visual attention Convergence Unable to test secondary to decreased visual attention Inattention/Neglect Cues to attend left visual field;Cues to attend to left side of body Scanning Pattern Disorganized Cognition Overall Cognitive Status Impaired Arousal/Alertness Inconsistent responses to stimuli Attention Span Difficulty attending to directions Orientation Level Oriented to person Following Commands Follows one step commands consistently (Follow with gestures/demo) Safety Judgment Decreased awareness of need for assistance Deficits Not aware of deficits Motor Planning Impaired Perseveration Perseverates during ADLs Initiation Hand over hand to initiate tasks Other (Comment) impulsive Overall Extremity Assessment Upper Extremity R Ue WFLS, No active movements with the Left Ue, PROM WFLS, no sublux is noted, mild/mod tone with quick stretch with the Left Ue Hand Function Hand Dominance Right Gross Grasp Right;Functional;Left;Impaired Coordination Impaired (Left Ue/hand) Opposition impaired Coordination Comment impaired Hand Comment absent coord, responder strength in the Left hand Sensation Light Touch Partial deficits in the LUE ADL Eating/Feeding Assistance Stand by;Minimal Eating/Feeding Deficit Setup;Verbal cueing;Increased time to complete (using the R hand, with gesture/tactile, demo cues for midline/place, impulsive needs to be monitor) Grooming Assistance Minimal;Moderate Grooming Deficit Setup;Verbal cueing;Increased time to complete Grooming Comment gesture, tactile cues Bathing Assistance Moderate;Maximal;Sitting in chair;Sitting upright in bed Bathing Deficit Right arm;Buttocks;Right upper leg;Left upper leg;Right lower leg including foot;Left lower leg including foot UE Dressing Assistance Maximal UE Dressing Deficit Thread LUE;work over rig operator head;Pull around back;Pull down in back;Fasteners LE Dressing Assistance Maximal LE Dressing Comment distal reaching, threading the Left Le, balance for clothes mgnt around the waist Toileting Assistance Maximal Toileting Deficit Clothing management up;Clothing management down;Perineal hygiene Additional Comments decrease balance, leaning heavy twds the left, slight pusher's syndrome, inattnto the Left Bed Mobility Supine to Sit Max assist to left Functional Transfers Sit to Stand Max assist;Assist of 2 Toilet Transfers Max assist;Assist x 2 Other (Comment) squat pivot simulated on/off commode Balance Sitting - Static Min Assist;Mod Assist;Support of one upper extremity Sitting - Dynamic Mod Assist;Max Assist;Support of one upper extremity Standing - Static Max Assist Standing - Dynamic Max Assist Other (Comment) unable to utilize the 2 ww, the Left Ue is not functional to hold the 2ww Proprioception Proprioception Partial deficits in the LUE Assessment Occupational Profile and History Complexity High (Extensive) Performance Skills Deficits Bathing/showering;Dressing;Functional mobility;Home establishment and management;Personal hygiene and grooming;Safety and emergency maintenance;Toileting;Social participation Performance Deficit Level High (5 or more deficits) Clinical Decision Making High (max modifications) Complexity Level of Evaluation High Prognosis Fair;Guarded OT Assess/Eval Other (Comment) Pt is a 74 y/o male admitted with CVA. Pt is max a with most ADLS, able to feed self/grooming with min a from a supportive surface using the R hand. Noted L neglect/visual spatial deficits/impulsive. Left Ue not functional, flaccid with mild/mod tone at the end range with quick stretch, no sublux. Pt is unable to utilize the 2 ww at this time. Noted cog deficits. Anticipate a long road of recovery. Pt will benefit from continue skilled OT services to increase indep with ADLS Daily Activity Putting on and taking off regular lower body clothing 2 (A Lot) Bathing (including washing, rinsing, drying) 2 (A Lot) Putting on and taking off regular upper body clothing 2 (A Lot) Toileting which includes toilet, bedpan, or urinal 2 (A Lot) Taking care of personal grooming such as brushing teeth 3 (A Little) Eating meals 3 (A Little) Daily Activity Score Score out of /24 14 Comments functional impairments=60% Modified Deana Score Pre-Morbid (Baseline) Score 0-6 3 Interval Daily Interval Score 0-6 4 Patient/Family Training Other (Comment) lacks insight, receptive Other Treatment Provided Other Treatment Provided (Comment) provided educ with family about attn to the left, gentle ROM exercises to do with the Left Ue, family receptive/wanted to encourage the pt Discharge Recommendation OT Recommendation OT at [facility] OT Equipment Recommended To Be Determined Plan OT Treatment/Intervention Self-care training;Therapeutic exercises;Therapeutic activities;Neuromuscular re-education;Cognitive skills development;Patient/family training;Functional activity;Safety OT Frequency 3 times/week OT plan for next session ADLS, attn to the left, Left functional usage/ROM If this is the last treatment note, it will serve as the discharge summary Yes End of Session End of Session Safety Chair alarm set/activated;Call light within reach;Family/friend present with patient;Nursing aware of session Interdisciplinary Collaboration RN, MARIELLA End of Session Comment in the recliner with oanh valdez for nursing. * Anu Cordoba PTA - 08/20/2024 11:31 AM CDT 08/20/24 1131 Therapy Visit Ordering Provider Jose PT Received On 08/20/24 Subjective [id number]; Pt was supine in bed with family present and agreed to get out of bed Reason for admission DX: CVA Relevant Comorbidities/ Personal Factors to PT PMHX: BPH, dementia, HTN, unilateral inguinal hernia, CAD w/recent stenting Verified Two Patient Identifiers Yes Patient consents to therapy Yes Acute Inpatient PT Time Calculation PT Start Time 1131 PT Stop Time 1155 PT Time Calculation (min) 24 min Precautions General Precautions Bed Alarm;Chair Alarm;Fall Risk PPE Used Face mask;Gloves Instructed on Precautions No (secondary to language barrier) Other L side of body weakness with L neglect Pain Pain Patient does not offer or c/o pain Activity Tolerance Endurance Tolerates 20 - 30 min activity with rests Endurance Quality Fair Limiting Factors to Endurance Acute deconditioning;Weakness Cognition Overall Cognitive Status Impaired Arousal/Alertness Inconsistent responses to stimuli Attention Span Difficulty attending to directions Orientation Level Oriented to person Following Commands Follows one step commands consistently (Follow with gestures/demo) Safety Judgment Decreased awareness of need for assistance Deficits Not aware of deficits Motor Planning Impaired Perseveration Perseverates during ADLs Initiation Hand over hand to initiate tasks Other (Comment) impulsive Bed Mobility Supine to Sit Max assist to left TRANSFERS Sit to Stand Max assist;Assist of 2 Squat Pivot Transfers Total assist;Assist of 2 Other (Comment) Pt required squat pivot due to pt's L UE is not functioning that total assist of 2 for squat pivot Balance Sitting - Static Min Assist;Mod Assist;Support of one upper extremity Sitting - Dynamic Mod Assist;Max Assist;Support of one upper extremity Standing - Static Max Assist;Assist of 2 Persons Standing - Dynamic Assist of 2 Persons (total assist of 2) Patient/Family Training Bed Mobility x Transfer Training x Precautions x Discharge Recommendation PT Recommendation Inpatient rehab PT Equipment Recommended To Be Determined Plan PT Treatments/Interventions Therapeutic Exercises;Therapeutic Activities;Neuromuscular re-education Progress Slow progress, medical status limitations PT Frequency 6 times/week PT plan for next session Continue on bed mobility, sitting on the EOB and exercise If this is the last treatment note,it will serve as the discharge summary Yes End of Session End of Session Safety Call light within reach;Chair alarm set/activated;Family/friend present with patient;Nursing aware of session * Pinky Parker, BISCUIT MAKER STUDENT - 08/20/2024 10:20 AM CDT SPEECH THERAPY BEDSIDE SWALLOW EVALUATION Time in: 938 Time out: 958 Episode of Care: Initial evaluation Date of Onset: 08/17/2024 Diagnosis: CVA Referring Physician: Dr. Betancourt Subjective: The pt was seen today for a clinical bedside swallow evaluation. Interpreting services were used for the evaluation ID#: [id number]. The interpreters name was Philip. The pt was seen laying inbed sleeping upon arrival. The pt was woken but remained lethargic throughout the evaluation. The pt's vocal quality was very weak and the hourly sign language interpreter was unable to hear pt's few attempts at communication. The pt is currently on a level 4 puree solid, moderately thick liquid diet. Past Medical History: Diagnosis Date BPH (benign prostatic hyperplasia) Constipation Dementia without behavioral disturbance (CMS/HCC) suspected underlying Diabetes mellitus (CMS/HCC HHS/HCC) History of colonoscopy 04/13/2024 Hydroureteronephrosis Hypertension Other specified noninfective gastroenteritis and colitis Proctitis Renal cyst Unilateral inguinal hernia, without obstruction or gangrene, not specified as recurrent 12/20/2021 Urinary retention Objective: ORAL PHASE: Part of an oral motor evaluation was completed.Pt's overall tongue and lip strength wasdecreased. Pt also showed decreased ROM with tongue. Pt appeared to have upper and lower dentures. Pt needed to be cued to masticate during regular solid trials. Even with cues, pt's oral phase was very prolonged. Pt was unable to swallow regular solids without several liquid washes. Pt demonstrated poor lip seal around spoon and straw. Anterior loss of majority of the bolus is noted on thin liquid trials by cup. Overall, oral phase is prolonged. PHARYNGEAL PHASE: The pt was given trials of ice chips, thin liquids, puree solids, and regular solids. The pt's swallow trigger was delayed on all consistencies but laryngeal elevation was noted by palpation. The pt did not cough during any of the 15 trials. Pt's vocal quality was weak and difficult to assess as a s/s of aspiration/penetration. Assessment: Regular solid trials were not considered safe as several cues to chew were needed for pt to partially masticate regular solid and take several liquid washes to clear. Intraoral residue and lack of mastication initiation are risk factors for aspiration/penetration pneumonia. Thin liquid and puree solids are considered safe. Plan: Recommend pt initiate a level 4 puree solid, thin liquid diet, straw ok, meds whole, halved, crushed in puree. ST will follow-up in 1-2 business days to ensure diet tolerance. Communication completed with RNRashmi and attending, Dr. Betancourt. Cosigned by CONNIE Beltran at 08/20/2024 11:17 AM CDT * Jacobo Grimes RN - 08/20/2024 7:22 AM CDT Per Lali at [facility], unable to accept patient's [employer] insurance. 1330 - left for Maryam Bond regarding referral sent. Awaiting return call. Per IDRs, Neurology recommends LEO/Vascular consult, probable discharge in 2 days. * Geoffrey Epstein RN - 08/19/2024 9:28 PM CDT Problem: Discharge Planning Goal: Knowledge of discharge instructions Outcome: Progressing Problem: Pain control/comfort Goal: Promote pain control/comfort Outcome: Progressing Problem: Skin integrity, Impaired-wound Goal: Absence of new skin breakdown Outcome: Progressing Goal: Evidence of wound healing Outcome: Progressing Problem: Skin integrity, Impaired-pressure injury/ulcer Goal: Absence of new skin breakdown Outcome: Progressing Goal: Evidence of pressure injury/ulcer healing Outcome: Progressing Problem: Skin integrity, at risk Goal: Absence of new skin breakdown Outcome: Progressing Problem: Moisture associated skin impairment Goal: Reduce moisture exposure Outcome: Progressing Goal: Evidence of wound healing Outcome: Progressing Goal: Evidence of pressure injury/ulcer healing Outcome: Progressing Goal: Absence of new skin breakdown Outcome: Progressing Problem: Reduced risk for falls/injury Goal: Reduced Risk for Falls/Injury Outcome: Progressing Goal: Reduced Risk of Confusion (Acute vs Chronic) Outcome: Progressing Goal: Reduced Risk of Symptomatic Depression Outcome: Progressing Goal: Reduced Risk of Altered Elimination Outcome: Progressing Goal: Reduced Risk of Dizziness/Vertigo/Balance Outcome: Progressing Goal: Reduced Risk of Polypharmacy Outcome: Progressing Problem: Violence, self/other directed, risk of Goal: Absence of violence Outcome: Progressing Problem: Balance Goal: STG - Pt to demonstrate static sitting balance at edge of bed Description: The patient will demonstrate static sitting balance at EOB = min/SBA x 5 minutes. Outcome: Progressing Problem: Transfers Goal: STG - Pt will perform bed mobility Description: The patient will increase all bed mobility activities to min/mod assist x 1. Outcome: Progressing Goal: STG - Pt will perform stand pivot transfer Description: The patient will perform stand pivot transfers to min/mod x 1. Outcome: Progressing Problem: Aspiration - Risk of Goal: Absence of aspiration Outcome: Progressing Problem: Mobility - Impaired Goal: Able to achieve maximum mobility level Outcome: Progressing Problem: Mood - Altered Goal: Alleviation of anxiety Outcome: Progressing Goal: Decrease in depressive symptoms Outcome: Progressing Problem: THROMBOLYTIC COMPLICATION - RISK OF ANGIOEDEMA AND BLEEDING Goal: Absence of angioedema Outcome: Progressing Goal: Absence of bleeding Outcome: Progressing Problem: Tissue Perfusion - Cerebral, Altered Goal: Absence of continued neurologic deterioration signs and symptoms Outcome: Progressing Problem: Verbal Communication - Impaired Goal: Effective communication Outcome: Progressing Goal: Increased social interaction Outcome: Progressing Problem: Discharge Planning Goal: Knowledge of discharge instructions Outcome: Progressing * Christiano Betancourt MD - 08/19/2024 2:45 PM CDT Hospitalist Daily Progress Note Subjective This is a 74-year-old y/o male who presents with CVA (cerebral vascular accident) ([facility]). Patient with increased somnolence again this morning and unable to be aroused, however now again alert. Objective Filed Vitals: 08/19/24 0728 08/19/24 1024 08/19/24 1222 08/19/24 1419 BP: (!) 187/78 109/67 (!) 159/80 112/75 Pulse: 79 85 84 98 Resp: Temp: 97.5 ??F (36.4 ??C) 97.3 ??F (36.3 ??C) 97.7 ??F (36.5 ??C) TempSrc: Axillary Axillary Axillary SpO2: 96% 98% 99% 98% Weight: Height: Physical Exam: Physical Exam Vitals reviewed. Constitutional: Appearance: He is well-developed. He is ill-appearing. Comments: Did not arouse during my exam Cardiovascular: Rate and Rhythm: Normal rate and regular rhythm. Heart sounds: No murmur heard. Pulmonary: Effort: Pulmonary effort is normal. No respiratory distress. Breath sounds: Normal breath sounds. No wheezing. Abdominal: General: There is no distension. Palpations: Abdomen is soft. Tenderness: There is no abdominal tenderness. Musculoskeletal: General: No swelling. Skin: Findings: No rash. Neurological: Mental Status: He is lethargic. Comments: Flaccid L side Intake/Output 24H Total: Intake/Output Summary (Last 24 hours) at 08/19/2024 1445 Last data filed at 08/19/2024 0300 Gross per 24 hour Intake 2588 ml Output 1850 ml Net 738 ml Medication aspirin 81 mg Oral Daily atorvastatin 80 mg Oral nightly heparin (porcine) 5,000 Units Subcutaneous 2 times per day insulin lispro 0-14 Units Subcutaneous TID AC And insulin lispro 0-7 Units Subcutaneous Nightly at bedtime lactulose 10 g Oral TID tamsulosin 0.4 mg Oral Daily ticagrelor 90 mg Oral BID PRN Meds: acetaminophen, cyclobenzaprine, hydrALAZINE, ondansetron Labs: Recent Results (from the past 24 hours) POCT glucose Collection Time: 08/18/24 4:11 PM Result Value Ref Range GLUCOSE POC 257 (H) 70 - 99 mg/dL POCT glucose Collection Time: 08/18/24 7:32 PM Result Value Ref Range GLUCOSE POC 211 (H) 70 - 99 mg/dL POCT glucose Collection Time: 08/19/24 5:33 AM Result Value Ref Range GLUCOSE POC 289 (H) 70 - 99 mg/dL CBC W/DIFF AUTOMATED Collection Time: 08/19/24 6:07 AM Result Value Ref Range WBC 8.15 4.5 - 11.0 x10'3/uL RBC 4.90 4.70 - 6.10 x10'6/uL HGB 13.8 (L) 14.0 - 18.0 G/DL HCT 42.4 (L) 43.0 - 54.0 % MCV 86.5 80.0 - 94.0 FL MCH 28.2 27.0 - 31.0 PG MCHC 32.5 32.0 - 36.0 G/DL RDW 15.1 (H) 11.5 - 14.5 % PLT 241 130 - 400 x10'3/uL MPV 11.0 9.3 - 12.2 FL DIFFERENTIAL TYPE AUTOMATED DIFFERENTIAL NEUTROPHILS % 60.5 % LYMPHOCYTES % 25.2 % MONOCYTES % 8.3 % EOSINOPHILS 4.9 % BASOPHILS 0.9 % IMMATURE GRANS % 0.2 % ABS. NEUTROPHILS 4.93 1.80 - 7.70 x10'3/uL ABS. LYMPHOCYTES 2.05 1.00 - 4.80 x10'3/uL ABS. MONOCYTES 0.68 0.30 - 0.82 x10'3/uL ABS. EOSINOPHILS 0.40 0.04 - 0.54 x10'3/uL ABS. BASOPHILS 0.07 0.01 - 0.08 x10'3/uL ABS. IMMATURE GRANULOCYTES 0.02 0.00 - 0.49 x10'3/uL BASIC METABOLIC PANEL Collection Time: 08/19/24 6:07 AM Result Value Ref Range GLUCOSE 267 (H) 70 - 99 MG/DL BUN 13 7 - 18 MG/DL CREATININE S/P/B 0.98 0.7 - 1.3 MG/DL SODIUM S/P/B 139 136 - 145 MMOL/L POTASSIUM S/P/B 3.4 (L) 3.5 - 5.1 MMOL/L CHLORIDE S/P/B 106 97 - 115 MMOL/L CO2 23.7 21 - 32 MMOL/L CALCIUM S/P/B 8.7 8.5 - 10.1 MG/DL ANION GAP 9.3 2 - 10 MMOL/L BUN CREATININE RATIO 13.3 6 - 26 GFR ESTIMATE 80 (L) >90 ML/MIN/1.73 M2 POCT glucose Collection Time: 08/19/24 10:26 AM Result Value Ref Range GLUCOSE POC 278 (H) 70 - 99 mg/dL POCT glucose Collection Time: 08/19/24 12:17 PM Result Value Ref Range GLUCOSE POC 276 (H) 70 - 99 mg/dL POCT glucose Collection Time: 08/19/24 2:21 PM Result Value Ref Range GLUCOSE POC 282 (H) 70 - 99 mg/dL X-Ray CT head wo con (08/19/24): 1. Patchy recent right hemispheric infarcts, somewhat better delineated on the prior MRI. No large hemorrhagic transformation. No midline shift. Basal cisterns patent. 2. Small vessel disease and volume loss. Echo w con (08/18/24): The left ventricular size is normal. The [...] restless during the exam. Trace aortic regurgitation. MRI Brain wo con (08/17/24): Multifocal 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 Other chronic or nonurgent findings as described above. CTA head/neck (08/17/24): 1. Complete occlusion of right ICA from [...] artery. 8. Asymmetric diminished prominence of left EMBROIDERY WORKER territory vasculature with no focal high-grade stenosis appreciated. 9. Approximately 50% stenosis at origin of left ICA. Up to 60% stenosis of left ICA 9 mm above the origin. 10. Moderate stenosis at origin of left ECA. CXR (08/17/24): 1. No convincing new acute cardiopulmonary findings. CT head wo con (08/17/24): There is a focal area of hypoattenuation in the right occipital lobe posteriorly. This may relate to an area of ischemic change. This may be acute to subacute. This is new as compared to June 22, 2023. Diffuse white matter hypoattenuating areas suspected due to chronic small vessel ischemic disease. No midline shift. Results for orders placed or performed during the hospital encounter of 08/17/24 ECG [address] [facility] [address] [place] [address] Test Date: 2024-08-17 Pat Name: RAMÍREZ FERNANDO Department: 41 Room: A422 Gender: Male Insight Director: [id number] : 1950 Requested By: DENNIS GARZA Order Number: [id number] Reading MD: Mu Tai Measurements Intervals [place] Rate: 70 P: 49 MO: 175 QRS: -29 QRSD: 150 T: 115 QT: 442 QTc: 479 Interpretive Statements SINUS RHYTHM LEFT BUNDLE BRANCH BLOCK [120+ ms QRS DURATION, 80+ ms Q/S IN V1/V2, 85+ ms R IN I/aVL/V5/V6] Compared to ECG 06/22/2023 15:09:14 Left bundle-branch block now present T-wave abnormality no longer present Possible ischemia no longer present Other ischemic changes, not STEMI Preliminary EKG Interpretation by Dennis Garza M.D. Assessment/Plan: Acute on chronic encephalopathy H/o Dementia Recent CVA Patient presented to the hospital after being unresponsive since last night. L side flaccid with dysphagia since recent CVA on 08/12. May be due to Xanax - had never before had a dose. UA neg LE/nitrites Troponin WNL Lipid panel WNL Echo with bubble with no thrombus or PFO. Brain MRI with multifocal acute infarcts, however unclear if this was able to be compared with his recent MRI at [facility] - suspect not actually new from that hospitalization. Tele neuro consulted, appreciate recs. Mental status waxes/wanes. Repeat CT head today with recent R hemispheric infarcts - no hemorrhagic transformation. Neurology consulted, appreciate assistance. Passed bedside swallow and tolerating meds/diet when alert. PT/OT/ST to eval. CM consulted for assistance with rehab on dc. Hypokalemia K down to 2.6. Mag wnl. Replaced and still mildly low. Continue to replace. ELOISE Creatinine 1.4, previous 0.8 in June 2024 IVF Resolved. RLE pain Appears to have ecchymosis on the back of the leg. Suspect traumatic - family/patient unaware of how he got this. Trial of low dose muscle relaxant. Appears better today. Cardiomyopathy No evidence of fluid overload. Echo with EF 40-45%. No change from prior echo at [facility] from 07/12/24. Consider BB, though current BP low. Not on any diuretics. CAD Recently had stents X2 placed in June 2024 at [facility] Continue ASA/Brilinta DM2 Accu-Cheks every 6 hours SSI Constipation Has had issues of severe constipation in the past. Continue home lactulose. BPH Continue Flomax. SDOH Readmission, speaks Nepali. DVT Prophylaxis Heparin subcu Code status FULL Surrogate decision maker/POA: SonGladys along with his other children CHRISTIANO BETANCOURT MD 08/19/2024 2:45 PM * Judy Zepeda MD - 08/19/2024 1:34 PM CDT Medical Necessity Recommendation Patient Name: Ramírez Fernando Admit Date:08/17/2024 Age/Gender: 74-year-old/male Attending Physician: Christiano Betancourt MD Physician Advisor: JUDY ZEPEDA MD Current admit order: Observation Type of review: Second level review complete Recommendation Summary 08/19/2024 : Physician Advisor Recommended Status: Inpatient Recommendations for 08/19/2024 Supporting Clinical Factors: Inc Somnolence, acute met encephalopathy The Attending Physician Concern: same Rationale: same Plan of Care Includes: same * Anu Cordoba PTA - 08/19/2024 1:30 PM CDT 08/19/24 1330 Therapy Visit Ordering Provider Jose PT Received On 08/19/24 Subjective [id number]; Attempted to see pt and pt appears to be sleeping and ethargic and will followup later time and date Reason for admission DX: CVA Relevant Comorbidities/ Personal Factors to PT PMHX: BPH, dementia, HTN, unilateral inguinal hernia, CAD w/recent stenting * LUI Schultz - 08/19/2024 1:10 PM CDT 08/19/24 1300 Therapy Visit Reason for admission DX: CVA Ordering Provider Jose Acute Inpatient OT Time Calculation OT Start Time 1309 Subjective Subjective RM [id number]: OT orders received, EMR reviewed. Per BISCUIT MAKER and service desk lead, pt is minimally responsive today and is not safe for a skilled evaluation. OT to follow up at a later time/date. * CONNIE Beltran - 08/19/2024 9:52 AM CDT 08/19/24 0949 Therapy Visit Subjective Order recieved for a clinical swallow evaluation on stroke protocol. The pt was placed on a puree diet, moderately thick liquids, but it is unclear if this is the pt's baseline diet or placed on precaution. Upon arrival to the pt's room, the pt is sitting upright in bed, sleeping. Max stimulation is attempted in the form of sternal rub, cool cloth, ice chip to lips, and other tactile and verbal stimulation, but without any success. ST will re-attempt next business day for evaluation. Inpatient BISCUIT MAKER Time Calculation BISCUIT MAKER Start Time 0949 * Faith Brumfield RD - 08/19/2024 9:03 AM CDT CLINICAL DIETITIAN ASSESSMENT NUTRITION ASSESSMENT Past Medical History: Diagnosis Date BPH (benign prostatic hyperplasia) Constipation Dementia without behavioral disturbance ([facility]/HCC) suspected underlying Diabetes mellitus ([facility]/HCC HHS/HCC) History of colonoscopy 04/13/2024 Hydroureteronephrosis Hypertension Other specified noninfective gastroenteritis and colitis Proctitis Renal cyst Unilateral inguinal hernia, without obstruction or gangrene, not specified as recurrent 12/20/2021 Urinary retention Initial History (08/19/2024): Registered Dietitian (RD) completing an initial assessment secondary to MST score of 2. Patient is a 74-year-old male admitted secondary to Altered mental status [R41.82] CVA (cerebral vascular accident) (CMS/HCC HHS/HCC) [I63.9]. Attempted to visit pt this AM- he was asleep with no one in room. Pt speaks Nepali. Attempted to reach family by phone- no answer and no vm. Spoke to clinical nursing manager and she said the family has been coming in to assist with feeding pt at mealtimes. She estimates that he ate 10% this morning. Weight history (08/19/2024): Wt Readings from Last 3 Encounters: 08/19/24 61 kg (134 lb 7.7 oz) 07/29/24 67.6 kg (149 lb) 07/23/24 68.9 kg (152 lb) Significant, unintentional wt loss of 7 kg in 6 months (10.3% since 03/16/24) and unintentional wt loss of 11.1 kg in 1 year (15.4% since 09/14/23)- not clinically significant. Diet history (08/19/2024): Unknown at this time Food allergies/intolerances: NKFA per EHR Cultural/Christianity food preferences: None reported in EHR Food Insecurity: No Food Insecurity (08/17/2024) Hunger Vital Sign Worried About Running Out of Food in the Last Year: Never true Ran Out of Food in the Last Year: Never true Cardiorespiratory: in room air Neuro: Patient noted to be confused per nurse documentation Edema: no edema noted per EHR GI: abdomen WDL with positive bowel sounds per EHR; no BM documented this admission Chewing/swallowing problems: Yes; dysphagia diet and moderately thick liquids noted but he passed bedside swallow per H&P Skin: intact Nutrition-focused physical findings: Deferred at this time due to pt asleep at time of RD visit. Labs: Reviewed with the following abnormalities identified: K+ 3.4, BG 267, PO4 2.3 Recent Labs Lab 08/17/24 1556 08/17/24 2036 08/18/24 0536 08/18/24 1056 08/18/24 1611 08/18/24 1932 08/19/24 0533 GLUCOSEPOC 201* 243* 218* 180* 257* 211* 289* Recent Labs Lab 08/17/24 0939 08/18/24 0824 08/19/24 0607 NA 138 139 139 K 3.6 2.6* 3.4* MAGNESIUM 2.1 -- -- BUN 23* 15 13 CR 1.44* 1.13 0.98 GFREST 50* 67* 80* GLU 240* 119* 267* TRI 120 -- -- HGB A1C Date Value Ref Range Status 08/17/2024 7.8 (H) <5.7 % Final Comment: ADA GUIDELINES 2010 5.7 TO 6.4% INCREASED RISK OF DIABETES > OR = 6.5% CONSISTENT WITH DIABETES 03/01/2024 8.3 (H) <5.7 % Final Comment: ADA GUIDELINES 2010 5.7 TO 6.4% INCREASED RISK OF DIABETES > OR = 6.5% CONSISTENT WITH DIABETES Meds: Reviewed. No nutrition-related concerns noted at this time. aspirin 81 mg Oral Daily atorvastatin 80 mg Oral nightly heparin (porcine) 5,000 Units Subcutaneous 2 times per day insulin lispro 0-14 Units Subcutaneous TID AC And insulin lispro 0-7 Units Subcutaneous Nightly at bedtime lactulose 10 g Oral TID potassium chloride 40 mEq Intravenous Once tamsulosin 0.4 mg Oral Daily ticagrelor 90 mg Oral BID Anthropometrics: Admission weight: 65.7 kg (Date: 08/17/24; Method: Bed) Last 5 Recorded Weights 08/17/24 0937 08/17/24 1346 08/18/24 0300 08/19/24 0300 Weight: 65.7 kg (144 lb 13.5 oz) 63.1 kg (139 lb 1.8 oz) 61.2 kg (134 lb 14.7 oz) 61 kg (134 lb 7.7oz) Weight status: wt loss noted this admission Height: 162.6 cm Actual Body Weight (ABW): 61 kg [place] Body Weight (IBW): 59 kg (ABW is 103% of IBW) Usual Body Weight (UBW): 72.1 kg (ABW is 85% of UBW), 1 year ago per EHR Dosing Weight (DW): 61 kg Body Mass Index (BMI): 23.08 kg/m?? (WNL) Estimated Nutrient Needs: Calories: 1564 kcal/day based on Lloyd-St Jeor x 1.25 for diabetes Protein: 61-73 gm/day based on 1-1.2 gm/kg, using ABW Carbohydrate: 176 gm/day based on 45% of total kcal from carbohydrate Fluid: 1564 mL/day based on 1 mL/kcal estimated needs Current diet order: Diet Dysphagia (IDDSI) 4-PUREED; 3-Moderately Thick; Appropriate Current diet appropriate? Yes; bedside swallow study noted Current intake sufficient to meet nutritional needs? No; Per review of [employer], patient has been ordering an average of 2062 kcal/day (100% of estimated needs) and 84 gm/day protein (100% of estimated needs) over the past 1 days. However, intake was 15% and 90%. Fluid intake appears adequate for hydration. Pain affecting PO intake? No Nutrition Education: no needs identified at this time NUTRITION DIAGNOSIS Predicted inadequate energy intake related to decreased appetite as evidenced by meal intakes ranging from 15-90%. NUTRITION INTERVENTION Nutrition prescription: Dysphagia diet with food/fluid consistency per BISCUIT MAKER recommendation + ONS (Glucerna BID) Plan: 1. Continue current diet order as tolerated and encourage good PO intake of meals. 2. Initiate ONS of Glucerna BID with breakfast and dinner, each to provide 220 kcals and 10 g protein. 3. Weigh patient at least twice weekly. Discharge nutrition plan: Discharge needs assessed. Will provide/update discharge instructions as needed. MONITORING/EVALUATION 08/19/2024 Goals: 1. PO intake will meet at least 75% of estimated kcal/protein needs based on 3- day average intake per review of EHR and [employer] at follow up. 2. Weight stable within 2% of current weight (61 kg- 08/19/24) at follow up. FAITH BRUMFIELD RD, LDN * Jacobo Grimes RN - 08/19/2024 8:19 AM CDT Per Lou Josue RNCM, patient's family has chosen [facility] [place] SNF [place]. 1001- PASRR completed, no level 2 required. 1051 - Per Jennifer at [facility], unable to accept, not in network with patient's [employer] insurance.Spoke with patient's daughter, referrals to be sent to [facility] and [facility]. 1123 - Per Catie at [facility], unable to accept, not in network with patient's [employer] insurance. 1316 - Spoke with Danna at [facility], reviewing referral. Referral sent to [facility] to see if patientis appropriate for Rehab at this time. 1428 - Per Danna at [facility], unable to accept. 1440 - Spoke with daughter at bedside, reviewed [place] SNF list, referrals made to [facility], [facility] [place] [place], [facility], [facility] [place], and [facility]. * Geoffrey Epstein RN - 08/18/2024 10:34 PM CDT Problem: Discharge Planning Goal: Knowledge of discharge instructions Outcome: Progressing Problem: Pain control/comfort Goal: Promote pain control/comfort Outcome: Progressing Problem: Skin integrity, Impaired-wound Goal: Absence of new skin breakdown Outcome: Progressing Goal: Evidence of wound healing Outcome: Progressing Problem: Skin integrity, Impaired-pressure injury/ulcer Goal: Absence of new skin breakdown Outcome: Progressing Goal: Evidence of pressure injury/ulcer healing Outcome: Progressing Problem: Skin integrity, at risk Goal: Absence of new skin breakdown Outcome: Progressing Problem: Moisture associated skin impairment Goal: Reduce moisture exposure Outcome: Progressing Goal: Evidence of wound healing Outcome: Progressing Goal: Evidence of pressure injury/ulcer healing Outcome: Progressing Goal: Absence of new skin breakdown Outcome: Progressing Problem: Reduced risk for falls/injury Goal: Reduced Risk for Falls/Injury Outcome: Progressing Goal: Reduced Risk of Confusion (Acute vs Chronic) Outcome: Progressing Goal: Reduced Risk of Symptomatic Depression Outcome: Progressing Goal: Reduced Risk of Altered Elimination Outcome: Progressing Goal: Reduced Risk of Dizziness/Vertigo/Balance Outcome: Progressing Goal: Reduced Risk of Polypharmacy Outcome: Progressing Problem: Violence, self/other directed, risk of Goal: Absence of violence Outcome: Progressing Problem: Balance Goal: STG - Pt to demonstrate static sitting balance at edge of bed Description: The patient will demonstrate static sitting balance at EOB = min/SBA x 5 minutes. Outcome: Progressing Problem: Transfers Goal: STG - Pt will perform bed mobility Description: The patient will increase all bed mobility activities to min/mod assist x 1. Outcome: Progressing Goal: STG - Pt will perform stand pivot transfer Description: The patient will perform stand pivot transfers to min/mod x 1. Outcome: Progressing Problem: Aspiration - Risk of Goal: Absence of aspiration Outcome: Progressing Problem: Mobility - Impaired Goal: Able to achieve maximum mobility level Outcome: Progressing Problem: Mood - Altered Goal: Alleviation of anxiety Outcome: Progressing Goal: Decrease in depressive symptoms Outcome: Progressing Problem: THROMBOLYTIC COMPLICATION - RISK OF ANGIOEDEMA AND BLEEDING Goal: Absence of angioedema Outcome: Progressing Goal: Absence of bleeding Outcome: Progressing Problem: Tissue Perfusion - Cerebral, Altered Goal: Absence of continued neurologic deterioration signs and symptoms Outcome: Progressing Problem: Verbal Communication - Impaired Goal: Effective communication Outcome: Progressing Goal: Increased social interaction Outcome: Progressing Problem: Discharge Planning Goal: Knowledge of discharge instructions Outcome: Progressing * Lucia Chacon RN - 08/18/2024 3:42 PM CDT Problem: Discharge Planning Goal: Knowledge of discharge instructions Outcome: Progressing Problem: Pain control/comfort Goal: Promote pain control/comfort Outcome: Progressing Problem: Skin integrity, Impaired-wound Goal: Absence of new skin breakdown Outcome: Progressing Goal: Evidence of wound healing Outcome: Progressing Problem: Skin integrity, Impaired-pressure injury/ulcer Goal: Absence of new skin breakdown Outcome: Progressing Goal: Evidence of pressure injury/ulcer healing Outcome: Progressing Problem: Skin integrity, at risk Goal: Absence of new skin breakdown Outcome: Progressing Problem: Moisture associated skin impairment Goal: Reduce moisture exposure Outcome: Progressing Goal: Evidence of wound healing Outcome: Progressing Goal: Evidence of pressure injury/ulcer healing Outcome: Progressing Goal: Absence of new skin breakdown Outcome: Progressing Problem: Reduced risk for falls/injury Goal: Reduced Risk for Falls/Injury Outcome: Progressing Goal: Reduced Risk of Confusion (Acute vs Chronic) Outcome: Progressing Goal: Reduced Risk of Symptomatic Depression Outcome: Progressing Goal: Reduced Risk of Altered Elimination Outcome: Progressing Goal: Reduced Risk of Dizziness/Vertigo/Balance Outcome: Progressing Goal: Reduced Risk of Polypharmacy Outcome: Progressing Problem: Violence, self/other directed, risk of Goal: Absence of violence Outcome: Progressing Problem: Balance Goal: STG - Pt to demonstrate static sitting balance at edge of bed Description: The patient will demonstrate static sitting balance at EOB = min/SBA x 5 minutes. Outcome: Progressing Problem: Transfers Goal: STG - Pt will perform bed mobility Description: The patient will increase all bed mobility activities to min/mod assist x 1. Outcome: Progressing Goal: STG - Pt will perform stand pivot transfer Description: The patient will perform stand pivot transfers to min/mod x 1. Outcome: Progressing Problem: Aspiration - Risk of Goal: Absence of aspiration Outcome: Progressing Problem: Mobility - Impaired Goal: Able to achieve maximum mobility level Outcome: Progressing Problem: Mood - Altered Goal: Alleviation of anxiety Outcome: Progressing Goal: Decrease in depressive symptoms Outcome: Progressing Problem: THROMBOLYTIC COMPLICATION - RISK OF ANGIOEDEMA AND BLEEDING Goal: Absence of angioedema Outcome: Progressing Goal: Absence of bleeding Outcome: Progressing Problem: Tissue Perfusion - Cerebral, Altered Goal: Absence of continued neurologic deterioration signs and symptoms Outcome: Progressing Problem: Verbal Communication - Impaired Goal: Effective communication Outcome: Progressing Goal: Increased social interaction Outcome: Progressing Problem: Discharge Planning Goal: Knowledge of discharge instructions Outcome: Progressing * Lou Josue RN - 08/18/2024 3:01 PM CDT Received message from provider asking to discuss PT recommendations with family. Spoke with family at bedside. Spoke with son who speaks Montenegrin who translated to and pt who speak Nepali. Made aware pt have more therapy before returning home. Made aware he would get daily PT at SNF vs if he went home with home health he would only get therapy 2-3 days per week. Provided list of SNF in the area with Medicare star ratings in Montenegrin and Nepali for them to discuss. Recommendation by PT was for inpatient rehab but provider indicated in her message that pt would not likely tolerate 3 hours oftherapy a day that is part of inpatient rehab routine. * Christiano Betancourt MD - 08/18/2024 12:55 PM CDT Hospitalist Daily Progress Note Subjective This is a 74-year-old y/o male who presents with CVA (cerebral vascular accident) ([facility]). Per family, patient was alert earlier today and speaking without issue. However at the time of my evaluation this afternoon, patient is somnolent and difficult to understand. Objective Filed Vitals: 08/18/24 0300 08/18/24 0401 08/18/24 0723 08/18/24 1053 BP: (!) 173/87 (!) 160/79 (!) 173/79 Pulse: 67 69 72 Resp: 19 16 Temp: 97.5 ??F (36.4 ??C) 98.1 ??F (36.7 ??C) 97.5 ??F (36.4 ??C) TempSrc: Axillary Axillary Oral SpO2: 100% 100% 98% Weight: 61.2 kg (134 lb 14.7 oz) Height: Physical Exam: Physical Exam Vitals reviewed. Constitutional: Appearance: He is well-developed. Cardiovascular: Rate and Rhythm: Normal rate and regular rhythm. Heart sounds: No murmur heard. Pulmonary: Effort: Pulmonary effort is normal. No respiratory distress. Breath sounds: Normal breath sounds. No wheezing. Abdominal: General: There is no distension. Palpations: Abdomen is soft. Tenderness: There is no abdominal tenderness. Musculoskeletal: General: No swelling. Skin: Findings: No rash. Neurological: Mental Status: He is alert. Comments: Flaccid L side Intake/Output 24H Total: Intake/Output Summary (Last 24 hours) at 08/18/2024 1255 Last data filed at 08/18/2024 1209 Gross per 24 hour Intake 200 ml Output 2200 ml Net -2000 ml Medication aspirin 81 mg Oral Daily atorvastatin 80 mg Oral nightly heparin (porcine) 5,000 Units Subcutaneous 2 times per day insulin lispro 0-14 Units Subcutaneous TID AC And insulin lispro 0-7 Units Subcutaneous Nightly at bedtime lactulose 10 g Oral TID potassium chloride 40 mEq Intravenous Once potassium chloride 40 mEq Intravenous Once tamsulosin 0.4 mg Oral Daily ticagrelor 90 mg Oral BID PRN Meds: acetaminophen, cyclobenzaprine, hydrALAZINE, LORazepam, ondansetron Labs: Recent Results (from the past 24 hours) POCT glucose Collection Time: 08/17/24 3:56 PM Result Value Ref Range GLUCOSE POC 201 (H) 70 - 99 mg/dL POCT glucose Collection Time: 08/17/24 8:36 PM Result Value Ref Range GLUCOSE POC 243 (H) 70 - 99 mg/dL URINALYSIS Collection Time: 08/17/24 9:25 PM Result Value Ref Range SPECIMEN TYPE URINE STRAIGHT CATH COLOR (U) LIGHT YELLOW TRANSPARENCY CLEAR SPECIFIC GRAVITY (U) 1.026 1.001 - 1.030 U PH 7.5 5.0 - 9.0 LEUKOCYTES (U) NEGATIVE NEGATIVE NITRITES NEGATIVE NEGATIVE PROTEIN RANDOM (U) 10 <30 MG/DL GLUCOSE (U) 200 (A) NORMAL MG/DL KETONES MG/DL (U) TRACE (A) NEGATIVE MG/DL UROBILINOGEN NORMAL NORMAL MG/DL BILIRUBIN (U) NEGATIVE NEGATIVE MG/DL BLOOD (U) 1+ (A) NEGATIVE WBC/HPF 2 <6 /HPF RBC/HPF 6 (H) <6 /HPF POCT glucose Collection Time: 08/18/24 5:36 AM Result Value Ref Range GLUCOSE POC 218 (H) 70 - 99 mg/dL CBC W/DIFF AUTOMATED Collection Time: 08/18/24 8:24 AM Result Value Ref Range WBC 7.92 4.5 - 11.0 x10'3/uL RBC 4.94 4.70 - 6.10 x10'6/uL HGB 13.7 (L) 14.0 - 18.0 G/DL HCT 43.4 43.0 - 54.0 % MCV 87.9 80.0 - 94.0 FL MCH 27.7 27.0 - 31.0 PG MCHC 31.6 (L) 32.0 - 36.0 G/DL RDW 15.1 (H) 11.5 - 14.5 % PLT 260 130 - 400 x10'3/uL MPV 10.8 9.3 - 12.2 FL DIFFERENTIAL TYPE AUTOMATED DIFFERENTIAL NEUTROPHILS % 57.8 % LYMPHOCYTES % 29.4 % MONOCYTES % 8.3 % EOSINOPHILS 3.2 % BASOPHILS 0.9 % IMMATURE GRANS % 0.4 % ABS. NEUTROPHILS 4.58 1.80 - 7.70 x10'3/uL ABS. LYMPHOCYTES 2.33 1.00 - 4.80 x10'3/uL ABS. MONOCYTES 0.66 0.30 - 0.82 x10'3/uL ABS. EOSINOPHILS 0.25 0.04 - 0.54 x10'3/uL ABS. BASOPHILS 0.07 0.01 - 0.08 x10'3/uL ABS. IMMATURE GRANULOCYTES 0.03 0.00 - 0.49 x10'3/uL BASIC METABOLIC PANEL Collection Time: 08/18/24 8:24 AM Result Value Ref Range GLUCOSE 119 (H) 70 - 99 MG/DL BUN 15 7 - 18 MG/DL CREATININE S/P/B 1.13 0.7 - 1.3 MG/DL SODIUM S/P/B 139 136 - 145 MMOL/L POTASSIUM S/P/B 2.6 (LL) 3.5 - 5.1 MMOL/L CHLORIDE S/P/B 104 97 - 115 MMOL/L CO2 28.8 21 - 32 MMOL/L CALCIUM S/P/B 8.7 8.5 - 10.1 MG/DL ANION GAP 6.2 2 - 10 MMOL/L BUN CREATININE RATIO 13.3 6 - 26 GFR ESTIMATE 67 (L) >90 ML/MIN/1.73 M2 POCT glucose Collection Time: 08/18/24 10:56 AM Result Value Ref Range GLUCOSE POC 180 (H) 70 - 99 mg/dL X-Ray MRI Brain wo con (08/17/24): Multifocal 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 Other chronic or nonurgent findings as described above. CTA head/neck (08/17/24): 1. Complete occlusion of right ICA from [...] artery. 8. Asymmetric diminished prominence of left EMBROIDERY WORKER territory vasculature with no focal high-grade stenosis appreciated. 9. Approximately 50% stenosis at origin of left ICA. Up to 60% stenosis of left ICA 9 mm above the origin. 10. Moderate stenosis at origin of left ECA. CXR (08/17/24): 1. No convincing new acute cardiopulmonary findings. CT head wo con (08/17/24): There is a focal area of hypoattenuation in the right occipital lobe posteriorly. This may relate to an area of ischemic change. This may be acute to subacute. This is new as compared to June 22, 2023. Diffuse white matter hypoattenuating areas suspected due to chronic small vessel ischemic disease. No midline shift. Results for orders placed or performed during the hospital encounter of 08/17/24 ECG 12 lead Narrative [address] Test Date: 2024-08-17 Pat Name: RAMÍREZ FERNANDO Department: 41 Room: [facility] Gender: Male Insight Director: [id number] : 1950 Requested By: DENNIS GARZA Order Number: [id number] Reading MD: Mu Tai Measurements Intervals [place] Rate: 70 P: 49 MO: 175 QRS: -29 QRSD: 150 T: 115 QT: 442 QTc: 479 Interpretive Statements SINUS RHYTHM LEFT BUNDLE BRANCH BLOCK [120+ ms QRS DURATION, 80+ ms Q/S IN V1/V2, 85+ ms R IN I/aVL/V5/V6] Compared to ECG 06/22/2023 15:09:14 Left bundle-branch block now present T-wave abnormality no longer present Possible ischemia no longer present Other ischemic changes, not STEMI Preliminary EKG Interpretation by Dennis Garza M.D. Assessment/Plan: Acute on chronic encephalopathy H/o Dementia Recent CVA Patient presented to the hospital after being unresponsive since last night. L side flaccid with dysphagia since recent CVA on 08/12. May be due to Xanax - had never before had a dose. UA neg LE/nitrites Troponin WNL Lipid panel WNL Brain MRI with multifocal acute infarcts, however unclear if this was able to be compared with his recent MRI at [facility] - suspect not actually new from that hospitalization. Echo with bubble pending. Tele neuro consulted, appreciate recs. Mental status waxes/wanes. IV as needed hydralazine Tylenol suppository as needed Passed bedside swallow and tolerating meds/diet. PT/OT/ST to eval. CM consulted for assistance with rehab on dc. Hypokalemia K down to 2.6. Mag wnl. Replace and recheck in am. ELOISE Creatinine 1.4, previous 0.8 in June 2024 IVF Improved with Cr down to 1.13. Monitor RLE pain Appears to have ecchymosis on the back of the leg. Suspect traumatic - family/patient unaware of how he got this. Trial of low dose muscle relaxant. Appears better today. CAD Recently had stents X2 placed in June 2024 at [facility] Continue ASA/Brilinta DM2 Accu-Cheks every 6 hours SSI Constipation Has had issues of severe constipation in the past. Continue home lactulose. BPH Continue Flomax. SDOH Readmission, speaks Nepali DVT Prophylaxis Heparin subcu Code status FULL Surrogate decision maker/POA: Son, Gladys along with his other children CHRISTIANO BETANCOURT MD 08/18/2024 12:55 PM * Yousuf Pineda, PT - 08/18/2024 12:28 PM CDT 08/18/24 1200 Therapy Visit Ordering Provider Jose PT Received On 08/18/24 PT Evaluation Completed on 08/18/24 Treatment Day 1 Subjective Rm [id number] PT orders received w/EMR reviewed. Patient supine w/nsg present and nsg agreeable to PT evaluation. Reason for admission DX: CVA Relevant Comorbidities/ Personal Factors to PT PMHX: BPH, dementia, HTN, unilateral inguinal hernia, CAD w/recent stenting Verified Two Patient Identifiers Yes Patient consents to therapy Yes Acute Inpatient PT Time Calculation PT Start Time 1045 PT Stop Time 1110 PT Time Calculation (min) 25 min Precautions Weight Bearing Status Full weight bearing General Precautions Bed Alarm;Chair Alarm;Fall Risk PPE Used Face mask;Gloves Instructed on Precautions No (secondary to language barrier) Skin Integrity intact Home Living Type of Home House Home Layout Two level;Able to live on main level with bedroom/bathroom Home Accessibility 5+ Steps to enter;Unilateral rail Bathroom Shower/Tub Tub/shower unit Bathroom Toilet Standard Toilet Bathroom Equipment Tub/shower chair with back Bathroom Accessibility Accessible Home Equipment Straight cane;2 Wheeled walker Prior Function Level of [place] Independent with functional transfers;Independent with ambulation;Needs assistance with ADLs;Needs assistance with homemaking Device used at baseline 2 Wheeled walker;Straight cane Baseline Ambulation Distance/Assistance household ambulator Fall History Yes Reason for fall unclear Most recent fall w/in the last year How many falls in the past year? 1(?) Lives With Family Receives Help From Family ADL Assistance Needs assistance Homemaking Assistance Needs assistance Pain Pain Patient does not offer or c/o pain Activity Tolerance Endurance Tolerates 10 - 20 min activity with rests Endurance Quality Poor Limiting Factors to Endurance Weakness;Acute deconditioning Vision - Basic Assessment Current Vision Wears glasses Cognition Overall Cognitive Status Impaired Arousal/Alertness Generalized responses Attention Span Difficulty attending to directions Orientation Level Oriented to person Following Commands Unable to follow one step directions (may be due to language barrier) Safety Judgment LILIANA Awareness of Errors LILIANA Deficits Not aware of deficits Problem Solving LILIANA RUE Assessment RUE Assessment WFL LUE Assessment LUE Comment ROM: WFL's, MMT = 0/5 RLE Assessment RLE Assessment WFL LLE Assessment LLE Comment ROM: WFL's, MMT = 0/5 Bed Mobility Supine to Sit Max assist to left;Assist of 2 TRANSFERS Stand Pivot Transfers Max assist (bed-->chair) Gait Other (Comment) unable Stairs Other (Comment) n/a Wheelchair Mobility Other (Comment) n/a Balance Sitting - Static Min Assist;Mod Assist;Support of one upper extremity Sitting - Dynamic Not Tested Standing - Static Max Assist Standing - Dynamic Max Assist Assessment Personal Factors/Comorbidities Impacting Care 3-4 personal factors/comorbidities Examination of Body Systems High (at least 4 Elements) Objectives of Body Systems Impaired bed mobility;Impaired transfers;Impaired ambulation;Impaired balance Clinical Presentation of Patient Evolving and changing characteristics Complexity Level of Evaluation High Prognosis Fair;Guarded PT Assess/Eval Other (Comment) The patient is a 74 year old male hospitalized with a dx of CVA who demonstrates a significant functional decline as he is unable to safely and (I) ambulate, transfer, and perform bed mobility as well as perform his normal ADL's. Due to his decline the patient would benefit from PT services while hospitalized and inpatient rehab post hospitalization in order to improve his functional status. Basic Mobility Turning from your back to your side while in a flat bed without using bedrails 2 (A Lot) Moving from lying on your back to sitting on the side of a flat bed without using bedrails 2 (A Lot) Moving to and from bed to chair (including wheelchair) 2 (A Lot) Standing up from a chair using your arms (e.g. wheelchair or bedside commode 2 (A Lot) To walk in hospital room 1 (Unable) Climbing 3-5 steps with railing 1 (Unable) Basic Mobility Score Score out of /24 10 Modified [place] Score Pre-Morbid (Baseline) Score 0-6 1 Interval Daily Interval Score 0-6 4 Patient/Family Training Bed Mobility x Transfer Training x Discharge Recommendation PT Recommendation Inpatient rehab PT Equipment Recommended To Be Determined Plan PT Treatments/Interventions Therapeutic Exercises;Therapeutic Activities;Neuromuscular re-education Progress Slow progress, medical status limitations PT Frequency 6 times/week PT plan for next session EOB activities, ther-ex, ther-activ, neuro re-ed If this is the last treatment note,it will serve as the discharge summary Yes End of Session End of Session Safety Chair alarm set/activated;Call light within reach;Nursing aware of session Interdisciplinary Collaboration RN * Geoffrey Epstein, RN - 08/17/2024 10:38 PM CDT Problem: Discharge Planning Goal: Knowledge of discharge instructions Outcome: Progressing Problem: Pain control/comfort Goal: Promote pain control/comfort Outcome: Progressing Problem: Skin integrity, Impaired-wound Goal: Absence of new skin breakdown Outcome: Progressing Goal: Evidence of wound healing Outcome: Progressing Problem: Skin integrity, Impaired-pressure injury/ulcer Goal: Absence of new skin breakdown Outcome: Progressing Goal: Evidence of pressure injury/ulcer healing Outcome: Progressing Problem: Skin integrity, at risk Goal: Absence of new skin breakdown Outcome: Progressing Problem: Moisture associated skin impairment Goal: Reduce moisture exposure Outcome: Progressing Goal: Evidence of wound healing Outcome: Progressing Goal: Evidence of pressure injury/ulcer healing Outcome: Progressing Goal: Absence of new skin breakdown Outcome: Progressing Problem: Reduced risk for falls/injury Goal: Reduced Risk for Falls/Injury Outcome: Progressing Goal: Reduced Risk of Confusion (Acute vs Chronic) Outcome: Progressing Goal: Reduced Risk of Symptomatic Depression Outcome: Progressing Goal: Reduced Risk of Altered Elimination Outcome: Progressing Goal: Reduced Risk of Dizziness/Vertigo/Balance Outcome: Progressing Goal: Reduced Risk of Polypharmacy Outcome: Progressing Problem: Violence, self/other directed, risk of Goal: Absence of violence Outcome: Progressing * Etelvina Craven RN - 08/17/2024 2:02 PM CDT 08/17/24 1401 Referral Data Source of Information Other (Comment) (daughter, edgar and grandson, tessa) Patient Information Primary Caregiver Family Current living Situation Spouse/significant other;Children Type of Residence Private residence Support System Spouse/Significant Other;Immediate family Are you employed? Retired Recent Hospitalization Recent Hospitalization within 30 days No Baseline ADL's Functional Status Moderate assistance;Maximum assistance Active DME Walker;Cane;Wheelchair Behavior Forgetful;Confused Communication Needs an Security System Sales Consultant DC screening tool This is a screening tool it does not take the place of a physical or occupational therapy evaluation. The screening is to screen the patient for what services and destination would be beneficial for patient for next level of care Conversation with the patient/family Will the patient be returning to prior living situation with no new identified needs? Yes Based on the screening the DC plan for consideration is: Patient expects to be discharged to: Home or Self care no new needs NCM performed bedside interview: verified and address Support: daughter/grandson Home: home with daughter/grandson, no needs Ambulation: Dependent prior to admission DME products: walker, wheelchair, cane ADLs: Dependent prior to admission with bathing, dressing, eating. Transport Home: daughter Skin/Bladder/Bowel: No deficits A/O: A&O x 2/3 per family Communication: No deficits Home Health: none, has used [facility] in past and would like to again if needed Occupation: retired [facility]: [facility] Financial Concerns: none PCP/Insurance Plan: Radshahnazn/Ezio Discharge needs: Care Coordination Team will provide discharge planning as needed, and will re-evaluate based on recommendations and treatment course. documented in this encounter H&P Notes * Nadege Vasquez, JUAN JOSE - 08/17/2024 11:23 AM CDT Hospitalist History and Physical Patient: Ramírez Fernando Date: 08/17/2024 male, 74-year-old Admit Date: 08/17/2024 Attending: Dennis Garza MD CHIEF COMPLAINT: Altered mental status HISTORY OF PRESENT ILLNESS: Ramírez Fernando is a 74-year-old male who speaks Nepali and his son Gladys is at the bedside helping with translation; has a past medical history significant for BPH (benign prostatic hyperplasia), dementia, diabetes, Hypertension, and Unilateral inguinal hernia, CAD with recent stents in May and June 2024 on ASA and Brilinta, recurrent severe constipation, known history of CVA, but with most recent admission to [facility] he was diagnosed with multiple acute right infarcts affecting the right cerebellar hemisphere including the right frontal, posterior, posterior temporal lobes patient suggesting sharp emboli in the right middle cerebral artery vascular distribution. He was e valuated by speech therapy that noted he is aspirating all consistencies. He was recommended a pur??ed diet with thickened liquids. Therapy recommended SNF at discharge, family did not want him to goto a SNF and took him home. Patient's son Gladys is also at the bedside helping provide information along with reviewing ER documentation. Per ED documentation patient was discharged on Xanax, patient was given a dose of Xanax 0.25 mg for the first time yesterday, he was also able to take his blood pressure medications at 8:30 PM. Around 11:00 PM son was unable to arouse the patient and take him to the bathroom. This morning patient was unable to be aroused, son called 911 and patient was brought to the ER. Patient does open his right eye when his name is called, he does not answer any questions appropriately when his son helps with translation. He does follow simple commands. He is able tomove his right foot and squeeze with his right hand. Otherwise his left side is completely flaccid.Patient is not alert enough to take anything by mouth at this time. The son tells me that they weregiving the patient a modified diet with thickened liquids. I did discuss with the son that we will obtain a brain MRI, we will monitor him and offer IV fluids. But if his mental status does not improve within 24 hours we may have to discuss other means of nutrition or goals of care. He verbalized understanding and appreciated the conversation. He will be admitted for further evaluation and treatment. I did spend a total of 30 minutes reviewing outside records are uploaded from his recent hospitalization Rafael from 08/12/2024 ALLERGY Allergies Allergen Reactions Hydroxypropyl Methylcellulose Unknown Artificial tears ingredient Gentamicin Other (see comment) and Unknown Reaction: Reaction: MEDICATIONS (Not in a hospital admission) No current facility-administered medications on file prior to encounter. Current Outpatient Medications on File Prior to Encounter Medication Sig Dispense Refill ALPRAZolam (XANAX) 0.25 MG tablet Take 1 tablet (0.25 mg total) by mouth 3 (three) times daily as needed for Anxiety. 30 tablet 0 amLODIPine (NORVASC) 5 MG tablet Take 1 tablet (5 mg total) by mouth daily. Indications: High BloodPressure 90 tablet 0 aspirin 81 MG chewable tablet Chew 1 tablet (81 mg total) by mouth daily. Indications: PreventativeTreatment atorvastatin (LIPITOR) 80 MG tablet Take 1 tablet (80 mg total) by mouth daily. Indications: High Amount of Chloride in the Blood insulin glargine (LANTUS) 100 UNIT/ML injection (VIAL) Indications: Diabetes ADMINISTER 9 UNITS UNDER THE SKIN EVERY MORNING (Patient taking differently: Inject 6 Units into the skin nightly at bedtime. Indications: Diabetes) 10 mL 5 lactulose (ENULOSE) 10 GM/15ML solution TAKE 30 ML BY MOUTH THREE TIMES DAILY FOR CONSTIPATION 473 mL 0 metoprolol succinate ER (TOPROL-XL) 50 MG 24 hr tablet Take 1 tablet (50 mg total) by mouth daily. Indications: High Blood Pressure tamsulosin (FLOMAX) 0.4 MG Cap Take 1 capsule (0.4 mg total) by mouth daily. Indications: Benign prostatic hyperplasia (BPH) suspected 90 capsule 0 ticagrelor (BRILINTA) 90 mg tablet Take 1 tablet (90 mg total) by mouth 2 (two) times daily. Indications: Diabetes insulin lispro, 1 Unit Dial, (HUMALOG KWIKPEN) 100 UNIT/ML injection (PEN) Inject 4-10 Units into the skin see administration instructions. Indications: Diabetes Sliding Scale: 200-250+4u, 250-300 6u, 300-350+8u, 350-400 10u, >400 take 10u and re-measure after 30 min if still above 400 call a doctor 12 mL 3 Senna (SENOKOT) 8.6 MG tablet Take 1 tablet (8.6 mg total) by mouth 2 (two) times daily as needed for Constipation. PAST MEDICAL HISTORY Past Medical History: Diagnosis Date BPH (benign prostatic hyperplasia) Constipation Dementia without behavioral disturbance ([facility]) suspected underlying Diabetes mellitus ([facility]) History of colonoscopy 04/13/2024 Hydroureteronephrosis Hypertension Other specified noninfective gastroenteritis and colitis Proctitis Renal cyst Unilateral inguinal hernia, without obstruction or gangrene, not specified as recurrent 12/20/2021 Urinary retention Past Surgical History: Procedure Laterality Date COLONOSCOPY N/A 04/13/2024 COLONOSCOPY WITH CECAL POLYPECTOMY VIA COLD SNARE performed by Bobby Quiñonez MD at [facility] DRAIN SKIN ABSCESS SIMPLE LITHOTRIPSY SOCIAL HISTORY Social History Socioeconomic History Marital status: Tobacco Use Smoking status: Never Passive exposure: Never Smokeless tobacco: Never Vaping Use Vaping status: Never Used Substance and Sexual Activity Alcohol use: Not Currently Drug use: Not Currently Social History Narrative Pt lives at home with SO and [facility] Pt ambulates independently. Social Drivers of Health Financial Resource Strain: Low Risk (04/10/2024) Overall Financial Resource Strain (CARDIA) Difficulty of Paying Living Expenses: Not hard at all Food Insecurity: No Food Insecurity (04/10/2024) Hunger Vital Sign Worried About Running Out of Food in the Last Year: Never true Ran Out of Food in the Last Year: Never true Transportation Needs: No Transportation Needs (08/07/2024) OASIS A1250: Transportation Lack of Transportation (Medical): No Lack of Transportation (Non-Medical): No Patient Unable or Declines to Respond: No Physical Activity: Inactive (12/30/2022) Exercise Vital Sign Days of Exercise per Week: 0 days Minutes of Exercise per Session: 0 min Social Connections: Feeling Socially Integrated (08/07/2024) OASIS D0700: Social Isolation Frequency of experiencing loneliness or isolation: Never Intimate Partner Violence: Not At Risk (04/10/2024) Humiliation, Afraid, Rape, and Kick questionnaire Fear of Current or Ex-Partner: No Emotionally Abused: No Physically Abused: No Sexually Abused: No Housing Stability: Low Risk (04/10/2024) Housing Stability Vital Sign Unable to Pay for Housing in the Last Year: No Number of Times Moved in the Last Year: 0 Homeless in the Last Year: No FAMILY HISTORY No family history on file. PHYSICAL EXAMINATION: Vital 24 Hour Range Most Recent Value Temperature Temp Min: 97.7 ??F (36.5 ??C) Max: 97.7 ??F (36.5 ??C) 97.7 ??F (36.5 ??C) Pulse Pulse Min: 67 Max: 75 67 Respiratory Resp Min: 16 Max: 21 18 Blood Pressure BP Min: 137/66 Max: 192/80 (!) 157/81 Pulse Oximetry SpO2 Min: 97 % Max: 99 % 99 % O2 No data recorded Vital Most Recent Value First Value Weight 65.7 kg (144 lb 13.5 oz) Weight: 65.7 kg (144 lb 13.5 oz) Height 162.6 cm (5' 4 ) Height: 162.6 cm (5' 4 ) BMI 24.85 N/A Intake/Output last 3 shifts: No intake/output data recorded. Physical Exam: -GENERAL: No acute distress, ill appearing, weak -HEAD: left side facial droop -EYES: right eye 1cm; left eye not reactive -ENT: Neck supple, Mucous membranes moist -LUNGS: Effort normal, Clear to auscultation bilaterally, No wheezes, No crackles, No ronchi -CVS: Regular rate and rhythm -ABDOMEN: Soft, Non tender, Non distended -EXT: No edema -NEURO: awake, hemiparesis to left side -SKIN: No significant rashes LABS Recent Labs Lab 08/17/24 0939 NA 138 K 3.6 CL 105 CO2 26.9 AGAP 6.1 BUN 23* CR 1.44* BUNCREATININ 16.0 GLU 240* CA 9.3 Recent Labs Lab 08/17/24 0939 WBC 9.53 RBC 4.76 HGB 13.3* HCT 41.8* MCV 87.8 MCH 27.9 MCHC 31.8* PLT 265 RDW 15.2* MPV 10.8 Recent Labs Lab 08/17/24 0939 AST 18 ALT 23 Recent Labs Lab 08/17/24 0939 INR 1.0 PTT 24.4* Invalid input(s): ABG arterial blood gases Recent Labs Lab 08/17/24 0939 TROP 54 No results for input(s): PH , PCO2 , PO2 , [id number] , BICARBWB , BASEDEFICIT , BASEEXCESS in the last 168 hours. IMAGING & OTHER STUDIES CTA HEAD+NECK Result Date: 08/17/2024 [facility] [address] [place], [place] [address] Examination: CTA of the head and neck [...] Mild to moderate stenosis bilaterally. Short segment high- grade stenosis near origin of right MCA. See screen shot. Short segment moderate to high-grade stenosis of origin of dominant right MCA [id number]. See additional screen shot. Multifocal mild to moderate stenoses in the more distal right MCA vasculature which may be secondary to incomplete opacification and blood flow from the right ICA.There is high-grade short to moderate length stenosis of the distal portion of left MCA M1 segment.See screen shot. There is a grade moderate [...] basilar artery. Asymmetric diminished prominence of left EMBROIDERY WORKER territory noted with no focal high-grade stenosis appreciated. CTA neck: Left aorticarch. Mild atherosclerotic disease in the arch. Origins [...] left ICA 9 mm above the origin. IMPRESSION: 1. [...] stenoses of bilateral MCA vasculature distally. 7. Mildto moderate stenosis of distal left vertebral artery just proximal to origin of basilar artery. 8. Asymmetric diminished prominence of left EMBROIDERY WORKER territory vasculature with no focal high-grade stenosisappreciated. 9. Approximately 50% stenosis at origin of left ICA. Up to 60% stenosis of left ICA 9 mm above the origin. 10. Moderate stenosis at origin of left ECA. Referred By: Electronically SignedBy: Dennis Hutson MD on 08/17/2024 10:35 AM Interpreted By: Dennis Hutson MD, 08/17/2024 10:21 AM XR CHEST PORTABLE Result Date: 08/17/2024 [facility] [address] [place], [place] [address] Examination: Chest x-ray 1 view Exam Date/Time: 08/17/2024 10:00 AM Reason For Exam: Altered mental status Altered mental status Comparison: Chest radiograph 06/22/2023 Technique: SingleAP view of the chest was obtained. Findings: No large effusion. No pneumothorax. Atherosclerotic aorta. Elevated right hemidiaphragm similar to prior study. Pulmonary vasculature within normal limits. No consolidation. Multiple postsurgical changes in the right ribs. No convincing new infiltrate. ======== IMPRESSION: ======== 1. No convincing new acute cardiopulmonary findings. Referred By: InterpretedBy: Dennis Hutson MD, 08/17/2024 10:[address] STROKE(HEAD WO) Result Date: 08/17/2024 [facility] [address] [place], [place] [address] Procedure(s): CT STROKE(HEAD WO) Date of service: [...] chronic small vessel ischemic disease. There is anarea of hyperattenuation present in the right occipital lobe. This appears to be slightly increasedor new as compared back to the prior examination. This may relate to an area of acute or subacute ischemic change. MRI recommended. IMPRESSION: There is a focal area of hypoattenuation in the right occipital lobe posteriorly. This may relate to an area of ischemic change. This may be acute to subacute. This is new as compared to June 22, 2023. Diffuse white matter hypoattenuating areas suspected due to chronic small vessel ischemic disease. No midline shift. Verbal preliminary given to Dr. Garza at 10:05 AM. Referred By: Interpreted By: Salvador Pretty MD, 08/17/2024 9:59 AM ECG 12 lead Result Date: 08/17/2024 [facility] Test Date: 2024-08-17 [facility] Department: 41 Room: [place] [address] Gender: Male Insight Director: [id number] : 1950 Requested By: DENNIS GARZA Order Number: [id number] Reading MD: Measurements Intervals [place] Rate: 70 P: 49 MO: 175 QRS: -29 QRSD: 150 T: 115 QT: 442 QTc: 479 Interpretive Statements SINUS RHYTHM LEFT BUNDLE BRANCH BLOCK [120+ ms QRS DURATION, 80+ ms Q/S IN V1/V2, 85+ ms R IN I/aVL/V5/V6]Compared to ECG 06/22/2023 15:09:14 Left bundle- branch block now present T-wave abnormality no longer present Possible ischemia no longer present Results for orders placed or performed during the hospital encounter of 08/17/24 ECG 12 lead Narrative [facility] [address] [facility] Test Date: 2024-08-17 [facility] Department: 41 Room: [id number] Gender: Male Insight Director: [id number] : 1950 Requested By: DENNIS GARZA Order Number: [id number] Reading MD: Measurements Intervals [place] Rate: 70 P: 49 MO: 175 QRS: -29 QRSD: 150 T: 115 QT: 442 QTc: 479 Interpretive Statements SINUS RHYTHM LEFT BUNDLE BRANCH BLOCK [120+ ms QRS DURATION, 80+ ms Q/S IN V1/V2, 85+ ms R IN I/aVL/V5/V6] Compared to ECG 06/22/2023 15:09:14 Left bundle-branch block now present T-wave abnormality no longer present Possible ischemia no longer present ASSESSMENT & PLAN Acute on chronic encephalopathy in the setting of dementia and recent CVA Patient presented to the hospital after being unresponsive since last night IVF started for ELOISE UA pending Patient with a history of dementia Patient also had recent CVA affecting his left side and his swallow Tele neuro consult Troponin WNL Lipid panel WNL Brain MRI pending Echo with bubble NPO for now to see if patient mental status improves IV as needed hydralazine Tylenol suppository as needed If patient's mental status does not improve, need to consider goals of care discussion ELOISE Creatinine 1.4, previous 0.8 in June 2024 IVF Monitor CAD Recently had stents X2 placed in June 2024 at [facility] Records reviewed Patient is to be on ASA/Brilinta Patient is not able to take p.o. at this time Discussed with attending, due to patient being high risk for a bleed with recent CVA, will hold offon a heparin drip at this time. DM2 Accu-Cheks every 6 hours SSI BPH Bladder scan Q 6 hours SDOH Readmission VTE ppx: Heparin subcu Code status: FULL Surrogate decision maker/POA: SonGladys along with his other children ACP: Spent 16 minutes discussing the plan of care as well as patient's wishes and desires regardingmedical care. The patient verbalizes understanding and wishes to be a FULL code at this time. ADMISSION STATUS: tele observation Portions of this note were dictated with [employer] medical dictation software. Misspellings, punctuation errors, omitted words or dictation variances may occur. JUAN JOSE OLMSTEAD Cosigned by Christiano Betancourt MD at 08/17/2024 5:29 PM CDT Associated attestation - Christiano Betancourt MD - 08/17/2024 5:29 PM CDT I, CHRISTIANO BETANCOURT MD, participated in the care of this patient today and discussed the plan of carewith Kailey Vasquez, ALYSHA, who shared in this visit. I have reviewed the ALYSHA's documentation and agree with the findings except as I have documented. This is a 74-year-old male with recent admission to [facility] on 08/12 with acute infarcts discharged to home who presented with complaints of severe lethargy. Son states he gave patient a dose of 0.25 mg Xanax and his blood pressure medications at 2030 on 08/16. His son was unable to arouse him to take him to the bathroom at approximately 2300. This morning, patient remained lethargic, so his family called EMS. Patient is now more alert and answering questions. He complains of pain in the back of his right lower extremity. He also complains of discomfort in his right lower quadrant. Onexam, heart is regular without murmur. Lungs are clear to auscultation bilaterally, breathing is nonlabored. RLE with ecchymosis posterior knee.Left side is flaccid. Patient is moving right side wellwithout issue. Patient speaks Nepali, but his son speaks fluent Montenegrin and is translating. Acute on chronic encephalopathy H/o Dementia Recent CVA Patient presented to the hospital after being unresponsive since last night. L side flaccid with dysphagia since recent CVA on 08/12. May be due to Xanax - had never before had a dose. UA pending Troponin WNL Lipid panel WNL Brain MRI with multifocal acute infarcts, however unclear if this was able to be compared with his recent MRI at [facility]. Echo with bubble pending. Tele neuro consulted, appreciate recs. Mental status improving IV as needed hydralazine Tylenol suppository as needed Passed bedside swallow - can restart puree diet and thickened liquids. PT/OT/ST to eval. ELOISE Creatinine 1.4, previous 0.8 in June 2024 IVF Repeat in am. Monitor RLE pain Appears to have ecchymosis on the back of the leg. Suspect traumatic - family/patient unaware of how he got this. Trial of low dose muscle relaxant. CAD Recently had stents X2 placed in June 2024 at [facility] Resume ASA/Brilinta DM2 Accu-Cheks every 6 hours SSI Constipation Has had issues of severe constipation in the past. Restart home lactulose. BPH Continue Flomax. SDOH Readmission, speaks Nepali DVT Prophylaxis Heparin subcu Code status FULL Surrogate decision maker/POA: Son, Gladys along with his other children CHRISTIANO BETANCOURT MD documented in this encounter Procedure Notes * Maryuri Casiano MD - 08/21/2024 10:[address] Chest reviewed. No left atrial appendage thrombus. Extensive coronary artery calcification. No significant ascending aortic calcification. Mild aortic arch calcification documented in this encounter Consult Notes * Julio Donis MD - 08/23/2024 4:36 PM CDT ASSESSMENT AND PLAN Ramírez Fernando is a 74-year-old male with pmh of CAD (stent placement x2 on 06/2024), DM2, BPH, HTN, CVA (08/12/24), recently admitted to [facility] on 08/12 for acute infarcts and discharged home, presented with complaints of severe lethargy. According to his son, the patient was given a dose of 0.25 mg Xanax and his blood pressure medications on 08/16. The son was unable to arouse him later that night to assist with going to the bathroom. The patient remained lethargic, prompting his family to call EMS. Upon arrival, the patient was more alert and responsive to questions. The left side is flaccid, and the patient moves the right side without difficulty. The patient speaks Nepali, and his daughter & son, who are fluent in Montenegrin, are acting as translators. Problem List: Acute on chronic encephalopathy Dementia Hx of CVA with Left side flaccid with dysphagia s/p recent CVA on 08/12/24 Carotid stenosis CAD ELOISE DM2 BPH NEURO - Hx of CVA on 08/12/24 with Left side deficit and dysphagia - CT on 08/17/24 showed hypoattenuation in the right posterior occipital lobe, with improved delineation noted on the CT from 08/19/24. Last CTA on 08/21/24 ruled out hemorrhage while on heparin gtt. - CTA head and neck on 08/17/24 with complete occlusion of right ICA with multiple stenoses in the MCA, ICA, and vertebral arteries, ranging from mild to high-grade. Additionally, there is asymmetric reduced prominence in the left EMBROIDERY WORKER territory and moderate stenosis at the origin of the left ECA. - MRI brain on 08/17/24 with multifocal acute infarcts in the right cerebral hemisphere - Carotid US on 08/20/24 shows the right internal carotid artery shows a string sign with possible distal disease, while the left internal carotid artery demonstrates mild calcific disease. Both vertebral arteries are antegrade. - Currently off precedex - Neurology and vascular surgeon are following and both recommend R CEA. Pt is currently on Heparingtt plan for CEA this afternoon CVS Hypotension - brief secondary to antihypertensives + precedex, hold all antihypertensives and allowpermissive hypertension for acute CVA - Echo with bubble ruled out thrombus or PFO, EF 45%. Cards doesn't recommend LEO - Currently on ASA, Lipitor 80, Brilinta 90 mg BID since stent placement in June 2024 PULMONARY Remains on RA adequate airway protection RENAL / FEN ELOISE resolved, Cr is at baseline Currently on Tamsulosin for BPH ID MRSA was negative HEME Hgb 13.1 ->11.9 - CTM GI On lactulose for constipation ENDOCRINE For DM2 is on Lantus & SSI INTEGUMENTARY Ecchymosis on all extremities Subjective: The patient is alert and oriented x3. His daughter is at the bedside assisting with translation andwas feeding him. She has questions from vascular surgery regarding the invasiveness and risks of the procedure. Review of Systems Constitutional: Positive for malaise/fatigue. Negative for chills and fever. HENT: Negative for congestion. Respiratory: Negative for cough, shortness of breath and wheezing. Cardiovascular: Negative for chest pain. Gastrointestinal: Positive for constipation. Negative for abdominal pain and diarrhea. Skin: Bruises in extremities Neurological: Positive for weakness (in upper/lower extremities). Negative for tremors. Physical Exam Constitutional: General: He is not in acute distress. Appearance: He is ill-appearing. He is not toxic-appearing or diaphoretic. HENT: Head: Normocephalic. Nose: No congestion. Mouth/Throat: Mouth: Mucous membranes are moist. Eyes: General: No scleral icterus. Right eye: No discharge. Left eye: No discharge. Conjunctiva/sclera: Conjunctivae normal. Pupils: Pupils are equal, round, and reactive to light. Cardiovascular: Rate and Rhythm: Normal rate and regular rhythm. Pulses: Normal pulses. Pulmonary: Effort: Pulmonary effort is normal. No respiratory distress. Breath sounds: Normal breath sounds. No stridor. No wheezing, rhonchi or rales. Chest: Chest wall: No tenderness. Abdominal: General: Bowel sounds are normal. There is no distension. Tenderness: There is no abdominal tenderness. There is no guarding. Musculoskeletal: General: No deformity. Comments: Weakness and deficit in Left upper/lower extremities Skin: General: Skin is warm. Findings: Bruising (in extremities) present. Neurological: Mental Status: He is alert and oriented to person, place, and time. Cranial Nerves: Facial asymmetry present. Motor: Weakness (on left upper/lower extremities) present. Comments: Asymmetric smile, tongue deviated to the left, and unable to raise eyebrow, frown, or shrug shoulders. VTE Prophylaxis: Heparin gtt CODE STATUS: Full, Surrogate decision maker/POA: SonGladys along with his other children - d/w daughter in detail his prognosis - recommended placement for PT/OT LINES: 2 PIV TUBES: Joiner DRIPS: Heparin gtt DISPOSITION Transfer to tele * Mu Tai MD - 08/23/2024 9:05 AM CDTAssociated Order(s): IP CONSULT TO CARDIOLOGY Images from the original note were not included. Ramírez Fernando is a 74-year-old male patient. Reason for consultation: Coronary artery disease shortness of breath severe carotid disease per cardiac neurectomy History of present illness: Complex 74-year-old gentleman history dimensions history of coronary artery disease. Patient hospitalized at [facility] proximately 6 weeks ago underwent PCI of high-grade circumflex lesion. Patient with moderate disease in the right coronary artery as well as stenosis of the LAD is not severe. Patient had a stroke is found to have severe carotid stenosis. He is preparing for carotid endarterectomy Patient had an echocardiogram admission is normal LV systolic function no significant valvular abnormalities. Coronary CTA showed severe calcified arteries no left atrial appendage thrombus Patient is currently on heparin yesterday had episode of chest pain Difficulty patient does not speak Montenegrin Serial cardiac enzymes were negative. Patient T wave inversions This morning he is without complaints. Blood pressures are stable assessment plan 1. Coronary artery disease: Presents cardiac enzymes are negative. I suspect that some of his chestpain may be demand related at this point given the patient has significant carotid disease by repeat troponin is negative would not recommend invasive assessment. Even if he is minimally elevated I think for left heart catheterization for now patient is to be optimized medically Heart catheterization at this point is not going to record changer assembler patient is moderate to high risk although not critically high risk for surgery. Addendum patient seen post surgery had some bleeding issues but appears to be doing better. Heparin on hold which given that the troponin is negative I think from a cardiac standpoint we could hold that. He does need to continue dual antiplatelet therapy. Unable to add back antihypertensives now. He should continue high intensity statin Would very slowly titrate antihypertensives over the next several days start low-dose beta-amarjit,defer to the primary team for now. 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) 05/25/2020 Essential hypertension 05/25/2020 Pressure injury of contiguous region involving back and buttock, stage 3 ([facility]) 05/25/2020 Decreased mobility 02/10/2020 Diabetes mellitus ([facility]) 01/13/2014 Fracture of left clavicle 01/26/2020 Fracture of manubrium 01/26/2020 Fracture of medial malleolus of right tibia 01/26/2020 L1 vertebral fracture ([facility]) 01/25/2020 Dehydration 07/03/2020 Abscess 09/17/2020 Preop examination 12/22/2021 Past Medical History: Diagnosis Date BPH (benign prostatic hyperplasia) Dementia without behavioral disturbance ([facility]) History of colonoscopy 04/13/2024 Hydroureteronephrosis Hypertension Other specified noninfective gastroenteritis and colitis Proctitis Renal cyst Unilateral inguinal hernia, without obstruction or gangrene, not specified as recurrent 12/20/2021 Urinary retention Past Surgical History: Procedure Laterality Date COLONOSCOPY N/A 04/13/2024 COLONOSCOPY WITH CECAL POLYPECTOMY VIA COLD SNARE performed by Bobby Quiñonez MD at [facility] DRAIN SKIN ABSCESS SIMPLE LITHOTRIPSY Review of patient's allergies indicates: Hydroxypropyl methylcellulose and Gentamicin No current facility-administered medications on file prior to encounter. Current Outpatient Medications on File Prior to Encounter Medication Sig Dispense Refill ALPRAZolam (XANAX) 0.25 MG tablet Take 1 tablet (0.25 mg total) by mouth 3 (three) times daily as needed for Anxiety. 30 tablet 0 amLODIPine (NORVASC) 5 MG tablet Take 1 tablet (5 mg total) by mouth daily. Indications: High BloodPressure 90 tablet 0 aspirin 81 MG chewable tablet Chew 1 tablet (81 mg total) by mouth daily. Indications: PreventativeTreatment atorvastatin (LIPITOR) 80 MG tablet Take 1 tablet (80 mg total) by mouth daily. Indications: High Amount of Chloride in the Blood insulin glargine (LANTUS) 100 UNIT/ML injection (VIAL) Indications: Diabetes ADMINISTER 9 UNITS UNDER THE SKIN EVERY MORNING (Patient taking differently: Inject 6 Units into the skin nightly at bedtime. Indications: Diabetes) 10 mL 5 lactulose (ENULOSE) 10 GM/15ML solution TAKE 30 ML BY MOUTH THREE TIMES DAILY FOR CONSTIPATION 473 mL 0 metoprolol succinate ER (TOPROL-XL) 50 MG 24 hr tablet Take 1 tablet (50 mg total) by mouth daily. Indications: High Blood Pressure tamsulosin (FLOMAX) 0.4 MG Cap Take 1 capsule (0.4 mg total) by mouth daily. Indications: Benign prostatic hyperplasia (BPH) suspected 90 capsule 0 ticagrelor (BRILINTA) 90 mg tablet Take 1 tablet (90 mg total) by mouth 2 (two) times daily. Indications: Diabetes insulin lispro, 1 Unit Dial, (HUMALOG KWIKPEN) 100 UNIT/ML injection (PEN) Inject 4-10 Units into the skin see administration instructions. Indications: Diabetes Sliding Scale: 200-250+4u, 250-300 6u, 300-350+8u, 350-400 10u, >400 take 10u and re-measure after 30 min if still above 400 call a doctor 12 mL 3 Senna (SENOKOT) 8.6 MG tablet Take 1 tablet (8.6 mg total) by mouth 2 (two) times daily as needed for Constipation. Current Facility-Administered Medications: acetaminophen (TYLENOL) tablet 650 mg, 650 mg, Oral, Q4H PRN, Christiano Betancourt MD aspirin chewable tablet 81 mg, 81 mg, Oral, Daily, Christiano Betancourt MD, 81 mg at 08/22/24 1006 atorvastatin (LIPITOR) tablet 80 mg, 80 mg, Oral, nightly, Christiano Betancourt MD, 80 mg at 08/22/242021 bisacodyl (DULCOLAX) suppository 10 mg, 10 mg, Rectal, Daily PRN, Christiano Betancourt MD cyclobenzaprine (FLEXERIL) tablet 5 mg, 5 mg, Oral, TID PRN, Christiano Betancourt MD, 5 mg at 08/18/241844 haloperidol lactate (HALDOL) injection 2 mg, 2 mg, Intravenous, Q6H PRN, Christiano Betancourt MD, 2 mg at08/21/24 0341 heparin 25,000 units in 250 mL 0.45% NaCl (100 units/mL) infusion, 0-3,900 Units/hr, Intravenous, Continuous, Last Rate: 7 mL/hr at 08/23/24 0550, 700 Units/hr at 08/23/24 0550 AND heparin (porcine) injection 5,000 Units, 5,000 Units, Intravenous, PRN AND heparin (porcine) injection 2,500 Units, 2,500 Units, Intravenous, PRN, Christiano Betancourt MD insulin glargine (LANTUS) injection 6 Units, 6 Units, Subcutaneous, Nightly at bedtime, Christiano Betancourt MD, 6 Units at 08/22/242022 insulin lispro (HUMALOG/ADMELOG) injection 0-14 Units, 0-14 Units, Subcutaneous, TID AC, 6 Units at08/23/24 0605 AND insulin lispro (HUMALOG/ADMELOG) injection 0-7 Units, 0-7 Units, Subcutaneous, Nightly at bedtime, Christiano Betancourt MD, 3 Units at 08/21/242017 lactulose (CHRONULAC) 10 GM/15ML solution 10 g, 10 g, Oral, TID, Christiano Betancourt MD, 10 g at 08/22/242021 melatonin tablet 3 mg, 3 mg, Oral, Nightly PRN, Christiano Betancourt MD, 3 mg at 08/19/242043 norepinephrine (LEVOPHED) 8 mg/250mL NS infusion, 0.5-60 mcg/min, Intravenous, Continuous, Henry Palafox MD, Stopped at 08/23/24 0515 ondansetron (ZOFRAN) injection 4 mg, 4 mg, Intravenous, Q8H PRN, Christiano Betancourt MD ticagrelor (BRILINTA) tablet 90 mg, 90 mg, Oral, BID, Christiano Betancourt MD, 90 mg at 08/22/242023 No family history on file. Social History Socioeconomic History Marital status: Spouse name: Not on file Number of children: Not on file Years of education: Not on file Highest education level: Not on file Occupational History Not on file Tobacco Use Smoking status: Never Passive exposure: Never Smokeless tobacco: Never Vaping Use Vaping status: Never Used Substance and Sexual Activity Alcohol use: Not Currently Drug use: Not Currently Sexual activity: Not on file Other Topics Concern Not on file Social History Narrative Pt lives at home with SO and [facility] Pt ambulates independently. Social Drivers of Health Financial Resource Strain: Medium Risk (08/17/2024) Overall Financial Resource Strain (CARDIA) Difficulty of Paying Living Expenses: Somewhat hard Food Insecurity: No Food Insecurity (08/17/2024) Hunger Vital Sign Worried About Running Out of Food in the Last Year: Never true Ran Out of Food in the Last Year: Never true Transportation Needs: No Transportation Needs (08/17/2024) PRAPARE - Transportation Lack of Transportation (Medical): No Lack of Transportation (Non-Medical): No Physical Activity: Inactive (12/30/2022) Exercise Vital Sign Days of Exercise per Week: 0 days Minutes of Exercise per Session: 0 min Stress: Not on file Social Connections: Feeling Socially Integrated (08/07/2024) OASIS D0700: Social Isolation Frequency of experiencing loneliness or isolation: Never Intimate Partner Violence: Not At Risk (08/17/2024) Humiliation, Afraid, Rape, and Kick questionnaire Fear of Current or Ex-Partner: No Emotionally Abused: No Physically Abused: No Sexually Abused: No Housing Stability: Low Risk (08/17/2024) Housing Stability Vital Sign Unable to Pay for Housing in the Last Year: No Number of Times Moved in the Last Year: 0 Homeless in the Last Year: No Allergies Allergen Reactions Hydroxypropyl Methylcellulose Unknown Artificial tears ingredient Gentamicin Other (see comment) and Unknown Reaction: Reaction: aspirin 81 mg Oral Daily atorvastatin 80 mg Oral nightly insulin glargine 6 Units Subcutaneous Nightly at bedtime insulin lispro 0-14 Units Subcutaneous TID AC And insulin lispro 0-7 Units Subcutaneous Nightly at bedtime lactulose 10 g Oral TID ticagrelor 90 mg Oral BID acetaminophen, bisacodyl, cyclobenzaprine, haloperidol lactate, heparin AND heparin (porcine) AND heparin (porcine), melatonin, ondansetron Filed Vitals: 08/23/24 0615 08/23/24 0630 08/23/24 0645 08/23/24 0800 BP: (!) 147/76 124/66 100/55 105/64 Pulse: 82 81 70 77 Resp: Temp: 97.2 ??F (36.2 ??C) TempSrc: Tympanic SpO2: 99% 100% 100% 98% Weight: Height: Physical Exam Constitutional: Resting comfortably frail well-nourished. No distress. HENT: Nose: No mucosal edema. Mouth/Throat: Oropharynx is clear and moist and mucous membranes are normal. No oropharyngeal exudate. Normal dentition. Neck: Neck supple. No JVD present. Carotid bruit is not present. Cardiovascular: Normal rate, regular rhythm, S1 normal, S2 normal and intact distal pulses. No extrasystoles are present, no gallop. No murmur heard. Pulmonary/Chest: Effort normal and breath sounds normal. No respiratory distress, no wheezes, no rales, no tenderness. Abdominal: No mass. There is no hepatosplenomegaly. There is no tenderness. Musculoskeletal: No edema or deformity. Neurological: Patient is alert although unable to answer questions there is a language barrier. It is for Dr. Johnson checked failure at this time. Skin: Skin is warm and dry. No erythema. Psychiatric: Normal mood and affect, behavior is normal. Thought content normal. Recent Labs Lab 08/17/24 1150 08/21/24 0840 08/22/24 1613 TROP 52 55 37 Recent Labs Lab 08/21/24 0407 08/22/24 0419 08/23/24 0400 NA 135* 137 138 K 3.6 3.6 3.9 CL 104 105 106 CO2 25.6 26.7 26.3 AGAP 5.4 5.3 5.7 BUN 18 24* 28* CR 1.01 1.16 1.13 BUNCREATININ 17.8 20.7 24.8 GLU 252* 258* 238* CA 8.5 8.2* 8.3* Recent Labs Lab 08/20/24 1800 INR 0.9 PTT 32.1 No results for input(s): TSH in the last 168 hours. Invalid input(s): T3FREE , FREET4 CHOLESTEROL Date Value Ref Range Status 08/17/2024 115 <200 MG/DL Final 06/22/2023 2:13 PM 09/05/2023 1:30 PM 03/01/2024 9:46 AM 03/16/2024 12:47 PM 04/09/2024 12:30 PM 04/10/2024 5:58 AM 08/17/2024 9:39 AM LIPIDS FLOWSHEET AST 26 14 12 22 35 15 18 ALT 21 20 17 18 25 21 23 CHOLESTEROL 216 115 LDL (CALCULATED) 116 48 HDL 31 43 TRIGLYCERIDES 345 120 @PREVCARDIACPROCEDURES@ @BNP@ SODIUM S/P/B Date Value Ref Range Status 08/23/2024 138 136 - 145 MMOL/L Final POTASSIUM S/P/B Date Value Ref Range Status 08/23/2024 3.9 3.5 - 5.1 MMOL/L Final CHLORIDE S/P/B Date Value Ref Range Status 08/23/2024 106 97 - 115 MMOL/L Final CO2 Date Value Ref Range Status 08/23/2024 26.3 21 - 32 MMOL/L Final ANION GAP Date Value Ref Range Status 08/23/2024 5.7 2 - 10 MMOL/L Final BUN Date Value Ref Range Status 08/23/2024 28 (H) 7 - 18 MG/DL Final CREATININE S/P/B Date Value Ref Range Status 08/23/2024 1.13 0.7 - 1.3 MG/DL Final BUN CREATININE RATIO Date Value Ref Range Status 08/23/2024 24.8 6 - 26 Final EGFR NON-AFR. AMER. Date Value Ref Range Status 03/29/2021 69 (L) >90 ML/MIN/1.73 M2 Final EGFR AFR. AMER. Date Value Ref Range Status 03/29/2021 80 (L) >90 ML/MIN/1.73 M2 Final Comment: NOTE: eGFR is not calculated for patients <18 years of age. This is an estimated GFR (CKD EPI) and should not be used for calculating drug doses. GLUCOSE Date Value Ref Range Status 08/23/2024 238 (H) 70 - 99 MG/DL Final CALCIUM S/P/B Date Value Ref Range Status 08/23/2024 8.3 (L) 8.5 - 10.1 MG/DL Final TOTAL PROTEIN S/P/B Date Value Ref Range Status 08/17/2024 7.7 6.4 - 8.2 G/DL Final ALBUMIN S/P/B Date Value Ref Range Status 08/17/2024 3.3 (L) 3.4 - 5.0 G/DL Final BILIRUBIN TOTAL S/P/B Date Value Ref Range Status 08/17/2024 0.8 0.2 - 1.2 MG/DL Final Comment: THIS ASSAY IS NOT RECOMMENDED FOR PATIENTS UNDERGOING TREATMENT WITH ELTROMBOPAG DUE TO THE POTENTIAL FOR FALSELY ELEVATED RESULTS. ALKALINE PHOSPHATASE S/P/B Date Value Ref Range Status 08/17/2024 101 50 - 136 U/L Final AST Date Value Ref Range Status 08/17/2024 18 15 - 37 U/L Final ALT Date Value Ref Range Status 08/17/2024 23 16 - 60 U/L Final Recent Labs Lab 08/17/24 0939 CHOL 115 TRI 120 HDL 43 LDL 48 EKG: Results for orders placed or performed during the hospital encounter of 08/17/24 ECG 12 lead Narrative [facility] [address] Test Date: 2024-08-17 Pat Name: RAMÍREZ FERNANDO Department: 41 Room: [id number] Gender: Male Insight Director: [id number] : 1950 Requested By: DENNIS GARZA Order Number: [id number] Reading MD: Mu Tai Measurements Intervals [place] Rate: 70 P: 49 MO: 175 QRS: -29 QRSD: 150 T: 115 QT: 442 QTc: 479 Interpretive Statements SINUS RHYTHM LEFT BUNDLE BRANCH BLOCK [120+ ms QRS DURATION, 80+ ms Q/S IN V1/V2, 85+ ms R IN I/aVL/V5/V6] Compared to ECG 06/22/2023 15:09:14 Left bundle-branch block now present T-wave abnormality no longer present Possible ischemia no longer present Other ischemic changes, not STEMI Preliminary EKG Interpretation by Dennis Garza M.D. ECG 12 lead Narrative [facility] [place] [address] [facility] Test Date: 2024-08-21 Pat Name: [facility] Department: 40 Room: [id number] Gender: Male Insight Director: : 1950 Requested By: CHRISTIANO BETANCOURT Order Number: [id number] Reading MD: Kim Medina Measurements Intervals [place] Rate: 67 P: 16 MO: 169 QRS: 5 QRSD: 86 T: 142 QT: 438 QTc: 464 Interpretive Statements SINUS RHYTHM ST DEVIATION AND MODERATE T-WAVE ABNORMALITY, CONSIDER ANTEROLATERAL ISCHEMIA [-0.1+ mV T-WAVE IN V3-V6] Compared to ECG 08/17/2024 09:35:52 T-wave abnormality now present Possible ischemia now present Left bundle-branch block no longer present ECG 12 lead Narrative [facility] [place] [address] [facility] Test Date: 2024-08-22 Pat Name: [facility] Department: 40 Room: [id number] Gender: Male Insight Director: : 1950 Requested By: CHRISTIANO BETANCOURT Order Number: [id number] Reading MD: Adal Pierson Measurements Intervals [place] Rate: 77 P: 25 MO: 181 QRS: 10 QRSD: 91 T: 140 QT: 397 QTc: 450 Interpretive Statements SINUS RHYTHM MODERATE T-WAVE ABNORMALITY, CONSIDER ANTEROLATERAL ISCHEMIA [-0.1+ mV T-WAVE IN V3-V6] Compared to ECG 08/21/2024 08:07:31 No significant changes Imaging: No results found. Radiology Results (Last 30 days) 08/21/[address] HEAD WO CON Final result Impression: IMPRESSION: 1. No CT evidence of an [...] By: Jeanmarie Schafer MD, 08/21/2024 9:32 AM 08/20/24 1453 USV CAROTID DUPLEX GARY Final result 08/19/[address] HEAD WO CON Final result Impression: IMPRESSION: 1. Patchy recent right hemispheric infarcts, somewhat better delineated on the prior MRI. No large hemorrhagic transformation. No midline shift. Basal cisterns patent. 2. Small vessel disease and volume loss. Ordered By: CHRISTIANO BETANCOURT Interpreted By: Matty Hess MD, 08/19/2024 3:21 PM 08/18/24 1603 USE ECHOCARDIOGRAM W CON Final result 08/17/24 1427 MRI BRAIN WO CON Final result Impression: IMPRESSION: Multifocal 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 Other chronic or nonurgent findings as described above. Referred By: Interpreted By: Erik Webster MD, 08/17/2024 3:00 PM 08/17/24 1016 XR CHEST PORTABLE Final result Impression: IMPRESSION: ======== 1. No convincing new acute cardiopulmonary findings. Referred By: Interpreted By: Dennis Hutson MD, 08/17/2024 10:18 AM 08/17/[address] STROKE(HEAD WO) Final result Impression: IMPRESSION: There is a focal area of hypoattenuation in the right occipital lobe posteriorly. This may relate to an area of ischemic change. This may be acute to subacute. This is new as compared to June 22, 2023. Diffuse white matter hypoattenuating areas suspected due to chronic small vessel ischemic disease. No midline shift. Verbal preliminary given to Dr. Garza at 10:05 AM. Referred By: Interpreted By: Salvador Pretty MD, 08/17/2024 9:59 AM 08/17/24 0955 CTA HEAD+NECK Final result Impression: IMPRESSION: 1. Complete occlusion of right ICA [...] artery. 8. Asymmetric diminished prominence of left EMBROIDERY WORKER territory vasculature with no focal high-grade stenosis appreciated. 9. Approximately 50% stenosis at origin of left ICA. Up to 60% stenosis of left ICA 9 mm above the origin. 10. Moderate stenosis at origin of left ECA. Referred By: Interpreted By: Dennis Hutson MD, 08/17/2024 10:21 AM @ECHOFINDINGS@ ECG [address] [facility] Test Date: 2024-08-22 Pat Name: RAMÍREZ FERNANDO Department: 40 Room: [id number] Gender: Male Insight Director: : 1950 Requested By: CHRISTIANO BETANCOURT Order Number: [id number] Reading MD: Adal Pierson Measurements Intervals [place] Rate: 77 P: 25 MO: 181 QRS: 10 QRSD: 91 T: 140 QT: 397 QTc: 450 Interpretive Statements SINUS RHYTHM MODERATE T-WAVE ABNORMALITY, CONSIDER ANTEROLATERAL ISCHEMIA [-0.1+ mV T-WAVE IN V3-V6] Compared to ECG 08/21/2024 08:07:31 [address] SNOMED CT(R) 1. Hyperglycemia HYPERGLYCEMIA 2. Altered mental status ALTERED MENTAL STATUS 3. CVA (cerebral vascular accident) ([facility]) CEREBROVASCULAR ACCIDENT 4. NSTEMI (non-ST elevated myocardial infarction) ([facility]) MYOCARDIAL INFARCTION Orders Placed This Encounter XR CHEST PORTABLE Standing Status: Standing Number of Occurrences: 1 Order Specific Question: Reason for Exam Answer: Altered mental status Order Specific Question: Portable requested: Answer: Yes Order Specific Question: Release to patient Answer: System release CBC W/DIFF AUTOMATED Standing Status: Standing Number of Occurrences: 1 Order Specific Question: Release to patient Answer: System release PROTIME/INR, VENOUS Standing Status: Standing Number of Occurrences: 1 Order Specific Question: Release to patient Answer: System release PARTIAL THROMBOPLASTIN TIME,PTT Standing Status: Standing Number of Occurrences: 1 Order Specific Question: Release to patient Answer: System release COMPREHENSIVE METABOLIC PANEL Standing Status: Standing Number of Occurrences: 1 Order Specific Question: Release to patient Answer: System release TROPONIN, QUANT Standing Status: Standing Number of Occurrences: 2 Order Specific Question: Release to patient Answer: System release CBC W/DIFF AUTOMATED Standing Status: Standing Number of Occurrences: 1 Order Specific Question: Release to patient Answer: System release BASIC METABOLIC PANEL Standing Status: Standing Number of Occurrences: 1 Order Specific Question: Release to patient Answer: System release MAGNESIUM Standing Status: Standing Number of Occurrences: 1 Order Specific Question: Release to patient Answer: System release HEMOGLOBIN, GLYCATED Standing Status: Standing Number of Occurrences: 1 Order Specific Question: Release to patient Answer: System release LIPID PANEL Fasting in AM Standing Status: Standing Number of Occurrences: 1 Order Specific Question: Release to patient Answer: System release URINALYSIS Standing Status: Standing Number of Occurrences: 1 Order Specific Question: Release to patient Answer: System release CBC W/DIFF AUTOMATED Standing Status: Standing Number of Occurrences: 1 Order Specific Question: Release to patient Answer: System release BASIC METABOLIC PANEL Standing Status: Standing Number of Occurrences: 1 Order Specific Question: Release to patient Answer: System release CBC W/DIFF AUTOMATED Standing Status: Standing Number of Occurrences: 1 Order Specific Question: Release to patient Answer: System release BASIC METABOLIC PANEL Standing Status: Standing Number of Occurrences: 1 Order Specific Question: Release to patient Answer: System release CBC W/DIFF AUTOMATED Standing Status: Standing Number of Occurrences: 1 Order Specific Question: Release to patient Answer: System release CBC W/DIFF AUTOMATED Standing Status: Standing Number of Occurrences: 1 Order Specific Question: Release to patient Answer: System release PARTIAL THROMBOPLASTIN TIME,PTT Standing Status: Standing Number of Occurrences: 1 Order Specific Question: Release to patient Answer: System release PROTIME/INR, VENOUS For baseline Standing Status: Standing Number of Occurrences: 1 Order Specific Question: Release to patient Answer: System release HEPARIN, ANTI XA, UFH Standing Status: Standing Number of Occurrences: 1 Order Specific Question: Release to patient Answer: System release HEPARIN, ANTI XA, UFH Standing Status: Standing Number of Occurrences: 1 Order Specific Question: Release to patient Answer: System release HEPARIN, ANTI XA, UFH Standing Status: Standing Number of Occurrences: 1 Order Specific Question: Release to patient Answer: System release HEPARIN, ANTI XA, UFH Standing Status: Standing Number of Occurrences: 1 Order Specific Question: Release to patient Answer: System release HEPARIN, ANTI XA, UFH Standing Status: Standing Number of Occurrences: 1 Order Specific Question: Release to patient Answer: System release TROPONIN, QUANT Standing Status: Standing Number of Occurrences: 1 Order Specific Question: Release to patient Answer: System release HEPARIN, ANTI XA, UFH Standing Status: Standing Number of Occurrences: 1 Order Specific Question: Release to patient Answer: System release HEPARIN, ANTI XA, UFH Standing Status: Standing Number of Occurrences: 1 Order Specific Question: Release to patient Answer: System release CBC W/DIFF AUTOMATED Standing Status: Standing Number of Occurrences: 1 Order Specific Question: Release to patient Answer: System release HEPARIN, ANTI XA, UFH Standing Status: Standing Number of Occurrences: 3 Order Specific Question: Release to patient Answer: System release BASIC METABOLIC PANEL Standing Status: Standing Number of Occurrences: 3 Order Specific Question: Release to patient Answer: System release CBC W/DIFF AUTOMATED Standing Status: Standing Number of Occurrences: 1 Order Specific Question: Release to patient Answer: System release TROPONIN, QUANT Standing Status: Standing Number of Occurrences: 1 Order Specific Question: Release to patient Answer: System release HEPARIN, ANTI XA, UFH Standing Status: Standing Number of Occurrences: 1 Order Specific Question: Release to patient Answer: System release ED Cardiac Monitoring Standing Status: Standing Number of Occurrences: 1 Bedside Blood Glucose pre-prandial breakfast, lunch, dinner and bedtime Standing Status: Standing Number of Occurrences: 1 Bedside Blood Glucose If patient NPO, on TPN, or on continuous tube feedings Standing Status: Standing Number of Occurrences: 1 Bedside Nursing Dysphagia Screen Standing Status: Standing Number of Occurrences: 1 Up With Assistance Standing Status: Standing Number of Occurrences: 78768 Vital Signs Standing Status: Standing Number of Occurrences: 1 Telemetry Review Standing Status: Standing Number of Occurrences: 1 Daily weights Standing Status: Standing Number of Occurrences: 1 Intake and output Routine Measure Intake and output. Standing Status: Standing Number of Occurrences: 1 Order Specific Question: Specify Instructions: Answer: Routine Pulse Oximetry Standing Status: Standing Number of Occurrences: 1 Straight cath If the bladder volume is greater than 300mL, perform straight cath for residual urine volume Standing Status: Standing Number of Occurrences: [id number] Wound care Other (Comment) (broken toenail) Right Toe (Comment which one) RIGHT 3RD TOE:: cleanse with normal saline or wound cleanser, apply Xeroform and dry dressing daily. Standing Status: Standing Number of Occurrences: 1 Neuro checks Standing Status: Standing Number of Occurrences: 1 Daily Weights Standing Status: Standing Number of Occurrences: 1 Lab Instructions: Anti-Factor Xa (anti-Xa) 6 hours after INITIATION of Heparin drip Standing Status: Standing Number of Occurrences: 1 Lab Instructions: Anti-Factor Xa (anti-Xa) 6 hours after EACH Heparin drip dose change Standing Status: Standing Number of Occurrences: 1 Lab Instructions: Anti-Factor Xa (anti-Xa) daily IF within therapeutic range on two consecutive Anti-Xa's, or until Heparin drip discontinued Standing Status: Standing Number of Occurrences: 1 Bathe patient Bathe patient daily with chlorhexadine Not for under 2 months of age. Standing Status: Standing Number of Occurrences: 1 2% Chlorhexadine Gluconate Cloth Bath (6 cloths) Not for under 2 months of age. Standing Status: Standing Number of Occurrences: 1 Nasal School Bus Dispatcher Swab Do NOT use if patient has nasal bleeding or irritation, or if they have allergy to: jojoba, topicalorange or coconut oil, or topical vitamin E. Do not use in eyes/mucous membranes. Not for under 2 years of age. Standing Status: Standing Number of Occurrences: 1 Midline Catheter Insertion Standing Status: Standing Number of Occurrences: 1 Midline Catheter Insertion Standing Status: Standing Number of Occurrences: 1 Vital signs Standing Status: Standing Number of Occurrences: 1 Cardiac Monitoring Continuous x 24 hours - Place patient on monitor - Verify equipment monitor phototypesetting lead placement - Change equipment monitor phototypesetting patches daily - Review Nurse Driven Tele Removal Protocol prior to discontinuation of monitor - Notify Provider for any concerns regarding removal of cardiac monitoring, Standing Status: Standing Number of Occurrences: 1 Telemetry Review Standing Status: Standing Number of Occurrences: 1 Continuous Pulse Oximetry Standing Status: Standing Number of Occurrences: 1 2% Chlorhexadine Gluconate Cloth Bath (6 cloths) Standing Status: Standing Number of Occurrences: 1 Provider RASS Goal -1 Drowsy Standing Status: Standing Number of Occurrences: 1 Order Specific Question: Provider RASS Goal Answer: -1 Drowsy Insert joiner catheter Standing Status: Standing Number of Occurrences: 1 Order Specific Question: Reason for Urinary Catheterization: Answer: Obstruction - urinary retention / bladder outlet obstruction 2% Chlorhexadine Gluconate Cloth Bath (6 cloths) Standing Status: Standing Number of Occurrences: 1 TeleHealth Stroke Consult Standing Status: Standing Number of Occurrences: 1 Inpatient Consult to Wound Care [facility] Standing Status: Standing Number of Occurrences: 1 Order Specific Question: Reason for Consult? Answer: wound on toe patient diabetic Order Specific Question: Has the consulting provider been contacted? Answer: Yes Order Specific Question: Location: Answer: [facility] Inpatient Consult to Neurology Standing Status: Standing Number of Occurrences: 1 Order Specific Question: Reason for Consult? Answer: CVA Order Specific Question: Has the consulting provider been contacted? Answer: Yes Order Specific Question: Location: Answer: [facility] Inpatient Consult to Vascular Surgery [facility] Standing Status: Standing Number of Occurrences: 1 Order Specific Question: Reason for Consult? Answer: Carotid occlusion Order Specific Question: Has the consulting provider been contacted? Answer: Yes Order Specific Question: Location: Answer: [facility] Inpatient Consult to Digital Content Producer [facility] Standing Status: Standing Number of Occurrences: 1 Order Specific Question: Reason for Consult? Answer: titratable medications Order Specific Question: Has the consulting provider been contacted? Answer: Yes Order Specific Question: Location: Answer: [facility] Inpatient Consult to Cardiology [facility] Standing Status: Standing Number of Occurrences: 1 Order Specific Question: Reason for Consult? Answer: NSTEMI. Thanks, Order Specific Question: Has the consulting provider been contacted? Answer: Yes Order Specific Question: Location: Answer: [facility] CT STROKE(HEAD WO) Recent acute stroke 08/10/2024 [employer] involving acute infarct of right cerebral hemispheric right frontal parietal and posterior temporal lobes. Standing Status: Standing Number of Occurrences: 1 Order Specific Question: Do you schedule for Radiology? Answer: No Order Specific Question: Reason for Exam Answer: Altered mental status Order Specific Question: Is anesthesia or sedation needed to be scheduled with this procedure? Answer: No Order Specific Question: What Hospital Division or Clinic will the patient go to for their test Answer: [facility] Order Specific Question: What site in [facility] will the patient want their study/test? Answer: [facility] [place] Order Specific Question: Release to patient Answer: System release CTA HEAD+NECK Recent acute stroke 08/10/2024 involving Standing Status: Standing Number of Occurrences: 1 Order Specific Question: Do you schedule for Radiology? Answer: No Order Specific Question: Reason for Exam Answer: Altered mental status Order Specific Question: Does patient have any of the following? Answer: UNKNOWN Order Specific Question: Release to patient Answer: System release CT HEAD WO CON Standing Status: Standing Number of Occurrences: 1 Order Specific Question: Do you schedule for Radiology? Answer: No Order Specific Question: Reason for Exam Answer: Lethargy Order Specific Question: Release to patient Answer: System release CT HEAD WO CON Standing Status: Standing Number of Occurrences: 1 Order Specific Question: Do you schedule for Radiology? Answer: No Order Specific Question: Reason for Exam Answer: Multifocal CVA on heparin gtt - monitoring for bleed Order Specific Question: Release to patient Answer: System release CTA HEART W 3D IMAGING Standing Status: Standing Number of Occurrences: 1 Order Specific Question: Do you schedule for Radiology? Answer: No Order Specific Question: Reason for Exam Answer: rule out left atrial appendage thrombus Order Specific Question: Does patient have any of the following? Answer: UNKNOWN Order Specific Question: Release to patient Answer: System release MRI BRAIN WO CON Standing Status: Standing Number of Occurrences: 1 Order Specific Question: Do you schedule for Radiology? Answer: No Order Specific Question: Reason for Exam Answer: cva r/o Order Specific Question: Previous allergy to MRI IV contrast (Gadolinium)? Answer: No Order Specific Question: Is the patient claustrophobic, have anxiety, unable to lay still for 30 min, or unable to follow commands? Ordering provider to manage the ordering of sedation needs for the patient. Answer: No Order Specific Question: Is Anesthesia needed for this procedure? Answer: No Order Specific Question: Are you ordering this for any of the following areas of interest? Answer: Brain Order Specific Question: Release to patient Answer: System release USE ECHOCARDIOGRAM W CON Standing Status: Standing Number of Occurrences: 1 Order Specific Question: Reason for Exam Answer: cva r/o Order Specific Question: Has the patient had bypass surgery? Answer: No Order Specific Question: Has the patient had a valve replacement? Answer: No Order Specific Question: Portable requested: Answer: Yes Order Specific Question: Do you need a bubble study? Answer: Yes Order Specific Question: Echocardiographic Contrast If Indicated Answer: Echo contrast when indicated per department policy/standing order Order Specific Question: Release to patient Answer: System release USV CAROTID DUPLEX GARY Standing Status: Standing Number of Occurrences: 1 Order Specific Question: Reason for Exam Answer: CVA Order Specific Question: Has the patient had any previous vascular surgeries? Answer: No Order Specific Question: Release to patient Answer: System release Insert peripheral IV Standing Status: Standing Number of Occurrences: 1 Rental Standard [employer] Mattress Only (Fluid Immersion) Rental equipment is automatically sent to [employer] upon signing. Standing Status: Standing Number of Occurrences: 1 Order Specific Question: What rental equipment is needed? Answer: Mattress Only POCT glucose Standing Status: Standing Number of Occurrences: 1 POCT glucose Standing Status: Standing Number of Occurrences: 1 POCT glucose Standing Status: Standing Number of Occurrences: 1 POCT glucose Standing Status: Standing Number of Occurrences: 1 POCT glucose Standing Status: Standing Number of Occurrences: 1 POCT glucose Standing Status: Standing Number of Occurrences: 1 POCT glucose Standing Status: Standing Number of Occurrences: 1 POCT glucose Standing Status: Standing Number of Occurrences: 1 POCT glucose Standing Status: Standing Number of Occurrences: 1 POCT glucose Standing Status: Standing Number of Occurrences: 1 POCT glucose Standing Status: Standing Number of Occurrences: 1 POCT glucose Standing Status: Standing Number of Occurrences: 1 POCT glucose Standing Status: Standing Number of Occurrences: 1 POCT glucose Standing Status: Standing Number of Occurrences: 1 POCT glucose Standing Status: Standing Number of Occurrences: 1 POCT glucose Standing Status: Standing Number of Occurrences: 1 POCT glucose Standing Status: Standing Number of Occurrences: 1 POCT glucose Standing Status: Standing Number of Occurrences: 1 POCT glucose Standing Status: Standing Number of Occurrences: 1 POCT glucose Standing Status: Standing Number of Occurrences: 1 POCT glucose Standing Status: Standing Number of Occurrences: 1 POCT glucose Standing Status: Standing Number of Occurrences: 1 POCT glucose Standing Status: Standing Number of Occurrences: 1 POCT glucose Standing Status: Standing Number of Occurrences: 1 POCT glucose Standing Status: Standing Number of Occurrences: 1 POCT glucose Standing Status: Standing Number of Occurrences: 1 POCT glucose Standing Status: Standing Number of Occurrences: 1 DISCONTD: citalopram (CELEXA) 10 MG tablet Sig: Take 1 tablet (10 mg total) by mouth daily. DISCONTD: LORazepam (ATIVAN) 0.5 MG tablet Sig: Take 1 tablet (0.5 mg total) by mouth 3 (three) times daily as needed. FOR ANXIETY DISCONTD: HYDROcodone-acetaminophen (NORCO) 5-325 MG tablet Sig: Take 1 tablet by mouth every 4 (four) hours as needed. FOR PAIN Senna (SENOKOT) 8.6 MG tablet Sig: Take 1 tablet (8.6 mg total) by mouth 2 (two) times daily as needed for Constipation. iopamidol (ISOVUE-370) 76 % injection 80 mL aspirin suppository 300 mg DISCONTD: lactulose (CHRONULAC) 10 GM/15ML solution 10 g DISCONTD: tamsulosin (FLOMAX) capsule 0.4 mg aspirin chewable tablet 81 mg atorvastatin (LIPITOR) tablet 80 mg DISCONTD: metoprolol succinate ER (TOPROL-XL) 24 hr tablet 50 mg BP: (!) 157/81 (08/17/24 1100) Pulse: 67 (08/17/24 1100) DISCONTD: Senna (SENOKOT) 8.6 MG tablet 8.6 mg ticagrelor (BRILINTA) tablet 90 mg DISCONTD: heparin (porcine) injection 5,000 Units DISCONTD: acetaminophen (TYLENOL) tablet 650 mg ondansetron (ZOFRAN) injection 4 mg AND Linked Order Group insulin lispro (HUMALOG/ADMELOG) injection 0-14 Units insulin lispro (HUMALOG/ADMELOG) injection 0-7 Units DISCONTD: sodium chloride 0.9% infusion DISCONTD: acetaminophen (TYLENOL) suppository 650 mg DISCONTD: hydrALAZINE (APRESOLINE) injection 5 mg BP: (!) 180/82 (08/17/24 1200) Pulse: 71 (08/17/24 1200) cyclobenzaprine (FLEXERIL) tablet 5 mg lactulose (CHRONULAC) 10 GM/15ML solution 10 g LORazepam (ATIVAN) injection 0.5 mg DISCONTD: potassium chloride 40 mEq in sodium chloride 0.9 % 500 mL IV Infusion potassium chloride 40 mEq in sodium chloride 0.9 % 500 mL IV Infusion potassium chloride 40 mEq in sodium chloride 0.9 % 500 mL IV Infusion perflutren lipid microsphere (DEFINITY) injection 2 mL potassium chloride 40 mEq in sodium chloride 0.9 % 500 mL IV Infusion acetaminophen (TYLENOL) tablet 650 mg melatonin tablet 3 mg bisacodyl (DULCOLAX) suppository 10 mg DISCONTD: metoprolol succinate ER (TOPROL-XL) 24 hr tablet 50 mg BP: (!) 132/100 (08/20/24 0746) Pulse: 85 (08/20/24 0746) sodium chloride 0.9 % infusion Created by marcelt deliaide insulin glargine (LANTUS) injection 6 Units heparin (porcine) injection 5,000 Units AND Linked Order Group heparin 25,000 units in 250 mL 0.45% NaCl (100 units/mL) infusion Order Specific Question: Initial dose (Units/kg/hr): Answer: 18 Order Specific Question: MAX Initial Rate (Units/hr): Answer: 2000 Order Specific Question: Anti-Xa Less Than 0.06 - BOLUS (Units/kg) Answer: 80 Order Specific Question: Anti-Xa Less Than 0.06 - Increase Infusion (Units/hr): Answer: 300 Order Specific Question: Anti-Xa Less Than 0.06 - Additional Inst.: Answer: (Use PRN Bolus Order on JUL) Order Specific Question: Anti-Xa Less Than 0.06 - Add. Inst. Cont 2.: Answer: Increase Infusion as shown: (300 units/hr) Order Specific Question: Anti-Xa 0.06-0.29 - Bolus (Units/kg): Answer: 40 Order Specific Question: Anti-Xa 0.06-0.29 - Increase infusion (Units/hr): Answer: 100 Order Specific Question: Anti-Xa 0.06-0.29 - Add. Inst. Cont 2.: Answer: Increase Infusion as shown: (100 units/hr) Order Specific Question: Anti-Xa 0.3-0.7 - at goal: Answer: (No infusion change) Anti-Xa at Goal Order Specific Question: Anti-Xa 0.3-0.7: Add. Inst. Cont: Answer: Next LAB Order: See Admin Instructions above Order Specific Question: Anti-Xa 0.71-0.9 - Decrease infusion (Units/hr) Answer: -100 Order Specific Question: Anti-Xa Additional Instructions: Answer: (No Bolus Needed) Order Specific Question: Anti-Xa 0.71-0.9 - Add. Inst. Cont.: Answer: Decrease Infusion as shown (-100 units/hr) Order Specific Question: Anti-Xa Greater Than 0.9 - Decrease infusion (Units/hr): Answer: -200 Order Specific Question: Anti-Xa 0.9-1.1 - Hold infusion Answer: 0 Order Specific Question: Anti-Xa 0.9-1.1 - Add. Inst. Cont.: Answer: HOLD & REPEAT STAT level every 1(one) hour Order Specific Question: Anti-Xa 0.9-1.1: Add. Inst. Cont.: Answer: Once LESS than 0.9, Then DECREASE infusion by -200 units/hr Order Specific Question: Anti-Xa Greater than 1.1 Answer: HOLD, NOTIFY PROVIDER & REPEAT STAT level every 1 (one) hour heparin (porcine) injection 5,000 Units heparin (porcine) injection 2,500 Units haloperidol lactate (HALDOL) injection 2 mg DISCONTD: amLODIPine (NORVASC) tablet 5 mg BP: (!) 144/92 (08/20/24 1900) Pulse: 84 (08/20/24 1900) iopamidol (ISOVUE-370) 76 % injection 80 mL DISCONTD: dexmedetomidine (PRECEDEX) 400 mcg in NS 100 mL IV infusion Order Specific Question: Titration Indication: Answer: Sedation norepinephrine (LEVOPHED) 8 mg/250mL NS infusion BP: (!) 74/47 (08/22/24 0200) Pulse: 63 (08/22/24 0201) morphine injection 2 mg ECG 12 lead Standing Status: Standing Number of Occurrences: 1 Order Specific Question: Release to patient Answer: System release ECG 12 lead Standing Status: Standing Number of Occurrences: 1 Order Specific Question: Release to patient Answer: System release ECG 12 lead Standing Status: Standing Number of Occurrences: 1 Order Specific Question: Release to patient Answer: System release OT eval and treat Standing Status: Standing Number of Occurrences: 1 Order Specific Question: Are there any weight bearing restrictions? Answer: No PT eval and treat Standing Status: Standing Number of Occurrences: 1 Order Specific Question: Are there any weight bearing restrictions? Answer: No Oxygen Therapy Nasal Cannula Oxygen; greater than 89% Start at 2 L/min if needed for target O2 saturation. Limit to 6 L/min and call provider if patient need exceeds limit. Standing Status: Standing Number of Occurrences: 1 Order Specific Question: Oxygen Therapy Modality: Answer: Nasal Cannula Oxygen Order Specific Question: Titrate O2 to maintain sats: Answer: greater than 89% Order Specific Question: Release to patient Answer: System release BISCUIT MAKER eval and treat Standing Status: Standing Number of Occurrences: 1 MRSA SCREENING Standing Status: Standing Number of Occurrences: 1 Order Specific Question: Release to patient Answer: System release MU TAI MD * Oumou Sesay MD - 08/22/2024 7:57 AM CDT ASSESSMENT AND PLAN Ramírez Fernando is a 74-year-old male with pmh of CAD (stent placement x2 on 06/2024), DM2, BPH, HTN, CVA (08/12/24), recently admitted to [facility] on 08/12 for acute infarcts and discharged home, presented with complaints of severe lethargy. According to his son, the patient was given a dose of 0.25 mg Xanax and his blood pressure medications on 08/16. The son was unable to arouse him later that night to assist with going to the bathroom. The patient remained lethargic, prompting his family to call EMS. Upon arrival, the patient was more alert and responsive to questions. The left side is flaccid, and the patient moves the right side without difficulty. The patient speaks Nepali, and his daughter & son, who are fluent in Montenegrin, are acting as translators. Problem List: Acute on chronic encephalopathy Dementia Hx of CVA with Left side flaccid with dysphagia s/p recent CVA on 08/12/24 Carotid stenosis CAD ELOISE DM2 BPH NEURO - Hx of CVA on 08/12/24 with Left side deficit and dysphagia - CT on 08/17/24 showed hypoattenuation in the right posterior occipital lobe, with improved delineation noted on the CT from 08/19/24. Last CTA on 08/21/24 ruled out hemorrhage while on heparin gtt. - CTA head and neck on 08/17/24 with complete occlusion of right ICA with multiple stenoses in the MCA, ICA, and vertebral arteries, ranging from mild to high-grade. Additionally, there is asymmetric reduced prominence in the left EMBROIDERY WORKER territory and moderate stenosis at the origin of the left ECA. - MRI brain on 08/17/24 with multifocal acute infarcts in the right cerebral hemisphere - Carotid US on 08/20/24 shows the right internal carotid artery shows a string sign with possible distal disease, while the left internal carotid artery demonstrates mild calcific disease. Both vertebral arteries are antegrade. - Currently on low dose of Precedex to have him more comfortable - Pt is Axo x3 - Neurology and vascular surgeon are following and both recommend R CEA. Pt is currently on Heparingtt and in ICU for close monitoring and Q4 Neuro checks. Surgery is planned for 08/23/24 CVS - Echo with bubble ruled out thrombus or PFO, EF 45%. Cards doesn't recommend LEO - Currently not on any pressor (Levo is on hold) & home med Amlodipine 5 was started - Currently on ASA, Lipitor 80, Brilinta 90 mg BID since stent placement in June 2024 PULMONARY CXR unremarkable on 08/17/24 RENAL / FEN ELOISE resolved, Cr is at baseline Currently on Tamsulosin for BPH ID MRSA was negative HEME Hgb 13.1 ->11.9 - CTM GI On lactulose for constipation ENDOCRINE For DM2 is on Lantus & SSI INTEGUMENTARY Ecchymosis on all extremities Subjective: The patient is alert and oriented x3. His daughter is at the bedside assisting with translation andwas feeding him. She has questions from vascular surgery regarding the invasiveness and risks of the procedure. Review of Systems Constitutional: Positive for malaise/fatigue. Negative for chills and fever. HENT: Negative for congestion. Respiratory: Negative for cough, shortness of breath and wheezing. Cardiovascular: Negative for chest pain. Gastrointestinal: Positive for constipation. Negative for abdominal pain and diarrhea. Skin: Bruises in extremities Neurological: Positive for weakness (in upper/lower extremities). Negative for tremors. Physical Exam Constitutional: General: He is not in acute distress. Appearance: He is ill-appearing. He is not toxic-appearing or diaphoretic. HENT: Head: Normocephalic. Nose: No congestion. Mouth/Throat: Mouth: Mucous membranes are moist. Eyes: General: No scleral icterus. Right eye: No discharge. Left eye: No discharge. Conjunctiva/sclera: Conjunctivae normal. Pupils: Pupils are equal, round, and reactive to light. Cardiovascular: Rate and Rhythm: Normal rate and regular rhythm. Pulses: Normal pulses. Pulmonary: Effort: Pulmonary effort is normal. No respiratory distress. Breath sounds: Normal breath sounds. No stridor. No wheezing, rhonchi or rales. Chest: Chest wall: No tenderness. Abdominal: General: Bowel sounds are normal. There is no distension. Tenderness: There is no abdominal tenderness. There is no guarding. Musculoskeletal: General: No deformity. Comments: Weakness and deficit in Left upper/lower extremities Skin: General: Skin is warm. Findings: Bruising (in extremities) present. Neurological: Mental Status: He is alert and oriented to person, place, and time. Cranial Nerves: Facial asymmetry present. Motor: Weakness (on left upper/lower extremities) present. Comments: Asymmetric smile, tongue deviated to the left, and unable to raise eyebrow, frown, or shrug shoulders. VTE Prophylaxis: Heparin gtt CODE STATUS: Full, Surrogate decision maker/POA: Gladys Doe along with his other children LINES: 2 PIV TUBES: Joiner DRIPS: Heparin gtt & Precedex. Levo on hold DISPOSITION Pending removal of drips and improvement in hemodynamic stability. Assessment and plan discussed with attending physician, Dr. Juan Solorzano. Oumou Sesay MD Family Medicine, PGY-2 Cosigned by Jose Luis Lozano MD at 08/22/2024 9:59 AM CDT Associated attestation - Jose Luis Lozano MD - 08/22/2024 9:59 AM CDT I reviewed the Resident's note and agree with the documented findings and plan of care. The reason the patient is critically ill and the nature of the treatment and management provided by the teaching physician (me) to manage the critically ill patient is: -Severe carotid stenosis with h/o recent stroke: -Continuing heparin gtt. -Plan for Rt CEA in AM. -Continue serial neuro checks. -Acute encephalopathy: -Patient required dexmedetomidine gtt to keep him calm. -Wean as tolerated. -Hypotension: -Etiology: Sedation induced. -08/22- Low dose norepinephrine gtt started. -Wean as tolerated. The patient was critically ill during the time that I saw the patient. The Critical Care Time excluding procedures was 35 minutes. Teaching physician supervised resident in person. * Jeanmarie Padgett MD - 08/20/2024 5:09 PM CDTAssociated Order(s): IP CONSULT TO VASCULAR SURGERY Consult History Ramírez Fernando is a 74-year-old male who presents with CVA This is a 74-year-old male with a history of diabetes mellitus, hyperlipidemia, hypertension who presents with cerebrovascular accident. The patient approximately had a CVA 1 week ago with resultant left-sided weakness and speech difficulty. [facility]A of the head and neck was significant for short segment occlusion of the rightinternal carotid artery. Carotid duplex ultrasound revealed string sign of the proximal right internal carotid artery. The patient now has left-sided weakness and general confusion. Past Medical History: Diagnosis Date BPH (benign prostatic hyperplasia) Constipation Dementia without behavioral disturbance (CMS/[facility]) suspected underlying Diabetes mellitus ([facility]) History of colonoscopy 04/13/2024 Hydroureteronephrosis Hypertension Other specified noninfective gastroenteritis and colitis Proctitis Renal cyst Unilateral inguinal hernia, without obstruction or gangrene, not specified as recurrent 12/20/2021 Urinary retention Past Surgical History: Procedure Laterality Date COLONOSCOPY N/A 04/13/2024 COLONOSCOPY WITH CECAL POLYPECTOMY VIA COLD SNARE performed by Bobby Quiñonez MD at [facility] DRAIN SKIN ABSCESS SIMPLE LITHOTRIPSY Social History Tobacco Use Smoking status: Never Passive exposure: Never Smokeless tobacco: Never Vaping Use Vaping status: Never Used Substance Use Topics Alcohol use: Not Currently Drug use: Not Currently No family history on file. aspirin 81 mg Oral Daily atorvastatin 80 mg Oral nightly heparin (porcine) 80 Units/kg Intravenous Once heparin (porcine) 5,000 Units Subcutaneous 2 times per day insulin glargine 6 Units Subcutaneous Nightly at bedtime insulin lispro 0-14 Units Subcutaneous TID AC And insulin lispro 0-7 Units Subcutaneous Nightly at bedtime lactulose 10 g Oral TID metoprolol succinate ER 50 mg Oral Daily tamsulosin 0.4 mg Oral Daily ticagrelor 90 mg Oral BID heparin sodium chloride acetaminophen, bisacodyl, cyclobenzaprine, haloperidol lactate, heparin AND heparin (porcine) AND heparin (porcine), melatonin, ondansetron, sodium chloride Prior to Admission medications Medication Sig Start Date End Date Taking? Authorizing Provider ALPRAZolam (XANAX) 0.25 MG tablet Take 1 tablet (0.25 mg total) by mouth 3 (three) times daily as needed for Anxiety. 08/15/24 Yes Donavon Connor MD amLODIPine (NORVASC) 5 MG tablet Take 1 tablet (5 mg total) by mouth daily. Indications: High BloodPressure 08/12/24 Yes Donavon Connor MD aspirin 81 MG chewable tablet Chew 1 tablet (81 mg total) by mouth daily. Indications: PreventativeTreatment 07/02/24 Yes Doc [facility] atorvastatin (LIPITOR) 80 MG tablet Take 1 tablet (80 mg total) by mouth daily. Indications: High Amount of Chloride in the Blood 07/02/24 Yes Doc [facility] insulin glargine (LANTUS) 100 UNIT/ML injection (VIAL) Indications: Diabetes ADMINISTER 9 UNITS UNDER THE SKIN EVERY MORNING Patient taking differently: Inject 6 Units into the skin nightly at bedtime. Indications: Diabetes 06/24/24 Yes Donavon Connor MD lactulose (ENULOSE) 10 GM/15ML solution TAKE 30 ML BY MOUTH THREE TIMES DAILY FOR CONSTIPATION 07/29/24 Yes Donavon Connor MD metoprolol succinate ER (TOPROL-XL) 50 MG 24 hr tablet Take 1 tablet (50 mg total) by mouth daily. Indications: High Blood Pressure 07/02/24 Yes Doc [facility] tamsulosin (FLOMAX) 0.4 MG Cap Take 1 capsule (0.4 mg total) by mouth daily. Indications: Benign prostatic hyperplasia (BPH) suspected 08/06/24 Yes Donavon Connor MD ticagrelor (BRILINTA) 90 mg tablet Take 1 tablet (90 mg total) by mouth 2 (two) times daily. Indications: Diabetes 07/02/24 Yes Doc [facility] Abstract insulin lispro, 1 Unit Dial, (HUMALOG KWIKPEN) 100 UNIT/ML injection (PEN) Inject 4-10 Units into the skin see administration instructions. Indications: Diabetes Sliding Scale: 200-250+4u, 250-300 6u, 300-350+8u, 350-400 10u, >400 take 10u and re-measure after 30 min if still above 400 call a doctor 06/24/24 Donavon Connor MD Senna (SENOKOT) 8.6 MG tablet Take 1 tablet (8.6 mg total) by mouth 2 (two) times daily as needed for Constipation. 08/16/24 Default History Genericprovider Allergies Allergen Reactions Hydroxypropyl Methylcellulose Unknown Artificial tears ingredient Gentamicin Other (see comment) and Unknown Reaction: Reaction: Review of Systems Unable to perform ROS: Other Physical Exam Filed Vitals: 08/20/24 0429 08/20/24 0746 08/20/24 1104 08/20/24 1555 BP: (!) 159/88 (!) 132/100 (!) 150/85 (!) 168/92 Pulse: 92 85 85 80 Resp: 22 20 20 20 Temp: 97.4 ??F (36.3 ??C) 97.7 ??F (36.5 ??C) 97.6 ??F (36.4 ??C) 97.6 ??F (36.4 ??C) TempSrc: Axillary Axillary Axillary Axillary SpO2: 98% 98% 98% 98% Weight: Height: Physical Exam: Physical Exam Vitals reviewed. Constitutional: Appearance: He is ill-appearing. Cardiovascular: Rate and Rhythm: Normal rate. Pulmonary: Effort: Pulmonary effort is normal. Musculoskeletal: General: No swelling. Neurological: Mental Status: He is alert. He is disoriented. Motor: Weakness present. Recent Labs Lab 08/18/24 0824 08/19/24 0607 08/20/24 0548 WBC 7.92 8.15 7.59 RBC 4.94 4.90 4.68* HGB 13.7* 13.8* 13.1* HCT 43.4 42.4* 40.7* MCV 87.9 86.5 87.0 MCH 27.7 28.2 28.0 MCHC 31.6* 32.5 32.2 PLT 260 241 244 RDW 15.1* 15.1* 15.1* MPV 10.8 11.0 11.3 PERNEU 57.8 60.5 63.3 PERLYM 29.4 25.2 23.2 PERMON 8.3 8.3 9.1 NEUC 4.58 4.93 4.80 LYMC 2.33 2.05 1.76 MONOC 0.66 0.68 0.69 EOSC 0.25 0.40 0.23 BASOC 0.07 0.07 0.07 DTYPE AUTOMATED DIFFERENTIAL AUTOMATED DIFFERENTIAL AUTOMATED DIFFERENTIAL Recent Labs Lab 08/17/24 0939 08/18/24 0824 08/19/24 0607 08/20/24 0548 NA 138 139 139 136 K 3.6 2.6* 3.4* 3.5 CL 105 104 106 106 CO2 26.9 28.8 23.7 24.6 AGAP 6.1 6.2 9.3 5.4 BUN 23* 15 13 16 CR 1.44* 1.13 0.98 1.03 BUNCREATININ 16.0 13.3 13.3 15.5 GLU 240* 119* 267* 277* CA 9.3 8.7 8.7 8.2* TP 7.7 -- -- -- ALB 3.3* -- -- -- TBIL 0.8 -- -- -- ALKP 101 -- -- -- AST 18 -- -- -- ALT 23 -- -- -- Recent Labs Lab 08/17/24 0939 PTT 24.4* INR 1.0 No results found for this visit on 08/17/24 (from the past 52 weeks). Imaging: USE ECHOCARDIOGRAM W CON Result Date: 08/18/2024 Echocardiography Report Pat.Name: RAMÍREZ FERNANDO Pat.ID: [id number] St.Date: 08/18/2024 Exam Time: 3:08:00 PM Study Type:ECHO WITH CARDIAC DOPPLER COMP Height: 64 in Weight: 134 lb BSA: 1.65 m2 Age: 9 1950,74Y Sex: M BP: 173/87 Sonogrphr: [facility] Pat. Stat.:Inpatient Room: [facility] Reason for Study:R/O CVA Procedures: 2D, M-mode, [...] is not assessable. Technically difficult exam due topatient position and restless during the exam. Trace aortic regurgitation. ++++++++++++++++++++++++++++++++++++ FINDINGS: ++++++++++++++++++++++++++++++++++++ LV: The left ventricular size is normal.The left ventricular systolic function is mild to [...] Trivial pericardial effusion, without tamponade physiology. AO: Normalaortic root. SVn: Inferior vena cava is not [...] EDV 118 ml LV SV 26.8 ml LVEDVBP 97.1 ml LV SV 53.6 ml LngAxs 6.53 cm LVPW LVPWd 0.823 cm Right Ventricle RVIDd 2.37 cm (2.6-4.3)* Right Ventricle 26.6 mm Right Ventricle 30.5 mm Right and Left 0.687 Major [place] 59.3 mm Ventricular Septum IVSd 1.54 cm Left Atrium LA a-p 2.6 cm (2.8-3.4)+* LA VOLBP 26.1 ml Aorta Ao Rtd 3.1 cm LVOT LVOT 2 cm LVOTArea 3.14 cm2 Ratios IVS LA Biplane LAVol I BP 15.8 ml/m2 Right Atrium Major [place] 38.1 mm Minor [place] 21.1 mm MMODE Aortic Valve AV sep 1.7 cm (1.5-2.6) TA Tricuspid Annul 12.3 mm <Electronic Signature> 08/18/2024 06:02 PM Mu Tai M.D. MRI BRAIN WO CON Result Date: 08/17/[address] [address] INDICATION: Stroke EXAMINATION: MRI of the brain without contrast. TECHNIQUE: Multisequence multiplanar unenhanced imaging. DATE/TIME: 08/17/2024 2:07 PM COMPARISON: CT, CTA, same date. FINDINGS: There are multiple small patchy foci of acute infarct in the right cerebral hemisphere involving the right occipital lobe, posterior temporal lobe and frontal lobe periventricular white matter. Distribution suggests involvement of the MCA watershed territories with the EMBROIDERY WORKER and CHRISTAL. No other acute infarct identified. [...] dedicated T2-weighted imaging was apparently not performed. 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 Other chronic or nonurgent findings as described above. Referred By: Electronically Signed By: Erik Webster MD on 53:11 PM Interpreted By: Erik Webster MD, 08/17/2024 3:00 PM ECG 12 lead Result Date: 08/17/[address] Test Date: 2024-08-17 Pat Name: RAMÍREZ FERNANDO Department: 41 Room: [facility] Gender: Male Insight Director: [id number] : 1950 Requested By: DENNIS GARZA Order Number: [id number] Reading MD: Mu Tai Measurements Intervals [place] Rate: 70 P: 49 MO: 175 QRS: -29 QRSD: 150 T: 115 QT: 442 QTc: 479 Interpretive Statements SINUS RHYTHM LEFT BUNDLE BRANCH BLOCK [120+ ms QRS DURATION, 80+ ms Q/S IN V1/V2, 85+ ms R IN I/aVL/V5/V6] Compared to ECG 06/22/2023 15:09:14 Left bundle-branch block now present T-wave abnormality nolonger present Possible ischemia no longer present Other ischemic changes, not STEMI Preliminary EKG Interpretation by Dennis Garza M.D. CTA HEAD+NECK Result Date: 08/17/[address] [address] Examination: CTA of the head and neck [...] Mild to moderate stenosis bilaterally. Short segment high- grade stenosis near origin of right MCA. See screen shot. Short segment moderate to high-grade stenosis of origin of dominant right MCA [id number]. See additional screen shot. Multifocal mild to moderate stenoses in the more distal right MCA vasculature which may be secondary to incomplete opacification and blood flow from the right ICA.There is high-grade short to moderate length stenosis of the distal portion of left MCA M1 segment.See screen shot. There is a grade moderate [...] basilar artery. Asymmetric diminished prominence of left EMBROIDERY WORKER territory noted with no focal high-grade stenosis appreciated. CTA neck: Left aorticarch. Mild atherosclerotic disease in the arch. Origins [...] left ICA 9 mm above the origin. IMPRESSION: 1. [...] stenoses of bilateral MCA vasculature distally. 7. Mildto moderate stenosis of distal left vertebral artery just proximal to origin of basilar artery. 8. Asymmetric diminished prominence of left EMBROIDERY WORKER territory vasculature with no focal high-grade stenosisappreciated. 9. Approximately 50% stenosis at origin of left ICA. Up to 60% stenosis of left ICA 9 mm above the origin. 10. Moderate stenosis at origin of left ECA. Referred By: Electronically SignedBy: Dennis Hutson MD on 08/17/2024 10:35 AM Interpreted By: Dennis Hutson MD, 08/17/2024 10:21 AM XR CHEST PORTABLE Result Date: 08/17/[address] [address] Examination: Chest x-ray 1 view Exam Date/Time: 08/17/2024 10:00 AM Reason For Exam: Altered mental status Altered mental status Comparison: Chest radiograph 06/22/2023 Technique: SingleAP view of the chest was obtained. Findings: No large effusion. No pneumothorax. Atherosclerotic aorta. Elevated right hemidiaphragm similar to prior study. Pulmonary vasculature within normal limits. No consolidation. Multiple postsurgical changes in the right ribs. No convincing new infiltrate. ======== IMPRESSION: ======== 1. No convincing new acute cardiopulmonary findings. Referred By: InterpretedBy: Dennis Hutson MD, 08/17/2024 10:[address] STROKE(HEAD WO) Result Date: 08/17/[address] [address] Procedure(s): CT STROKE(HEAD WO) Date of service: [...] chronic small vessel ischemic disease. There is anarea of hyperattenuation present in the right occipital lobe. This appears to be slightly increasedor new as compared back to the prior examination. This may relate to an area of acute or subacute ischemic change. MRI recommended. IMPRESSION: There is a focal area of hypoattenuation in the right occipital lobe posteriorly. This may relate to an area of ischemic change. This may be acute to subacute. This is new as compared to June 22, 2023. Diffuse white matter hypoattenuating areas suspected due to chronic small vessel ischemic disease. No midline shift. Verbal preliminary given to Dr. Garza at 10:05 AM. Referred By: Interpreted By: Salvador Pretty MD, 08/17/2024 9:59 AM Assessment Principal Problem: CVA (cerebral vascular accident) ([facility]) SNOMED CT(R): CEREBROVASCULAR ACCIDENT Active Problems: Acute metabolic encephalopathy SNOMED CT(R): METABOLIC ENCEPHALOPATHY Plan The patient has multifocal right cerebral hemisphere infarction with right internal carotid string sign. The patient may have right internal carotid thrombus present at the bifurcation. Would start heparin drip if okay with neurology. Will also plan for carotid endarterectomy if neurology feels this would be of benefit to the patient. Thank you for consultation. JEANMARIE PADGETT MD Consulted by Christiano Betancourt MD * Louis Anderson MD - 08/20/2024 7:26 AM CDTAssociated Order(s): IP CONSULT TO NEUROLOGY NEUROLOGY NOTE Name:Ramírez Fernando Date of Service: 08/20/2024 ID: 74-year-old male HPI: Ramírez Fernando is a 74-year-old male; has a past medical history significant for BPH (benign prostatic hyperplasia), dementia, diabetes, Hypertension, and Unilateral inguinal hernia, CAD with recent stents in May and June 2024 on ASA and Brilinta, recurrent severe constipation, known history of CVA, but with most recent admission to [facility] he was diagnosed with multiple acute right infarcts affecting the right cerebellar hemisphere including the right frontal, posterior, posterior temporal lobes patient suggesting emboli in the right middle cerebral artery vascular distribution. Patient was brought to the ER, with altered mental status. Apparently was given Xanax. He has since become more alert, however he is still having hard time claudicating. MRI brain continues to show the right-sided infarcts, with CT angiogram of the head showing significant burden of intracranial disease. In addition there is complete occlusion of the right internal carotid artery with reconstitution more distally, high-grade stenosis of the right MCA, high-grade stenosis of the right [id number] of the MCA, high-grade stenosis of the left MCA, moderate stenosis of the left MCA M2 branch, approximately 50% occlusion of the left ICA. Echo shows normal EF without PFO. ROS; could not be obtained HOSPITAL MEDICATIONS: aspirin 81 mg Oral Daily atorvastatin 80 mg Oral nightly heparin (porcine) 5,000 Units Subcutaneous 2 times per day insulin lispro 0-14 Units Subcutaneous TID AC And insulin lispro 0-7 Units Subcutaneous Nightly at bedtime lactulose 10 g Oral TID tamsulosin 0.4 mg Oral Daily ticagrelor 90 mg Oral BID acetaminophen, bisacodyl, cyclobenzaprine, melatonin, ondansetron . Past Medical History: Diagnosis Date BPH (benign prostatic hyperplasia) Constipation Dementia without behavioral disturbance ([facility]) suspected underlying Diabetes mellitus ([facility]) History of colonoscopy 04/13/2024 Hydroureteronephrosis Hypertension Other specified noninfective gastroenteritis and colitis Proctitis Renal cyst Unilateral inguinal hernia, without obstruction or gangrene, not specified as recurrent 12/20/2021 Urinary retention . Past Surgical History: Procedure Laterality Date COLONOSCOPY N/A 04/13/2024 COLONOSCOPY WITH CECAL POLYPECTOMY VIA COLD SNARE performed by Bobby Quiñonez MD at [facility] GI DRAIN SKIN ABSCESS SIMPLE LITHOTRIPSY . Social History Socioeconomic History Marital status: Spouse name: Not on file Number of children: Not on file Years of education: Not on file Highest education level: Not on file Occupational History Not on file Tobacco Use Smoking status: Never Passive exposure: Never Smokeless tobacco: Never Vaping Use Vaping status: Never Used Substance and Sexual Activity Alcohol use: Not Currently Drug use: Not Currently Sexual activity: Not on file Other Topics Concern Not on file Social History Narrative Pt lives at home with SO and has had [facility] recently. Pt ambulates independently. Social Drivers of Health Financial Resource Strain: Medium Risk (08/17/2024) Overall Financial Resource Strain (CARDIA) Difficulty of Paying Living Expenses: Somewhat hard Food Insecurity: No Food Insecurity (08/17/2024) Hunger Vital Sign Worried About Running Out of Food in the Last Year: Never true Ran Out of Food in the Last Year: Never true Transportation Needs: No Transportation Needs (08/17/2024) PRAPARE - Transportation Lack of Transportation (Medical): No Lack of Transportation (Non-Medical): No Physical Activity: Inactive (12/30/2022) Exercise Vital Sign Days of Exercise per Week: 0 days Minutes of Exercise per Session: 0 min Stress: Not on file Social Connections: Feeling Socially Integrated (08/07/2024) OASIS D0700: Social Isolation Frequency of experiencing loneliness or isolation: Never Intimate Partner Violence: Not At Risk (08/17/2024) Humiliation, Afraid, Rape, and Kick questionnaire Fear of Current or Ex-Partner: No Emotionally Abused: No Physically Abused: No Sexually Abused: No Housing Stability: Low Risk (08/17/2024) Housing Stability Vital Sign Unable to Pay for Housing in the Last Year: No Number of Times Moved in the Last Year: 0 Homeless in the Last Year: No .No family history on file. Vital signs: VSRANGES@ . Filed Vitals: 08/19/24 2004 08/20/24 0006 08/20/24 0300 08/20/24 0429 BP: (!) 153/90 (!) 142/84 (!) 159/88 (!) 159/88 Pulse: 100 93 91 92 Resp: Temp: 97.7 ??F (36.5 ??C) 98.5 ??F (36.9 ??C) 98.5 ??F (36.9 ??C) 97.4 ??F (36.3 ??C) TempSrc: Axillary Axillary Axillary Axillary SpO2: 100% 100% 96% 98% Weight: Height: MENTAL STATUS: Patient was and oriented x1, regards and follows commands, inconsistently, and with repetition. Could not assess language. CRANIAL NERVES: II: Pupils were equal, round and reactive to light III, IV, : Patient is able to track horizontally, could not assess vertical tracking V: Normal jaw closure and opening. VII: face was symmetric. VIII: hearing was normal. IX-X: palate elevation is slow XI: normal symmetric shoulder shrug. XII: tongue was midline MOTOR: Moves his arms and legs on the right , flaccid and weak on the left SENSATION: Winces to pain, on bony compression, however symmetry hard to assess REFLEXES: Normal 2+/4 in upper and lower extremities. Babinski sign was present b/l. Hodgson's negative. ASSESSMENT and PLAN: In summary, has multifocal acute infarcts in the right stable hemisphere, in the setting of significant burden of intracranial disease, and possible carotid artery disease as well. I suspect the artery to artery embolus either with intracranial disease, or through the occluded right ICAas the cause of his infarct. In addition, he also has significant stenosis in the posterior circulation which could be a contributing factor for the infarct seen in the occipital region. I recommend continuing aspirin 81 mg daily, brilinta 90mg and atorvastatin 80 mg daily. I recommend a LDL goal of less than 70 mg/dL, A1c of less than 6.5, and a blood pressure goal of less than 130 x 80 mmHg. Given the possibility of carotid artery disease, I recommend doing a carotid ultrasound, and also getting a vascular surgery consult. In addition, given the multifocal infarcts in hemispheres [acute on right, and chronic on the left] I would also recommend completing workup by doing a transesophageal echo, to rule out any clot in the left atrial region. As an outpatient, patient would also benefit fr om a event monitor, and if it is negative, from a Linq monitor as well. If applicable, I have personally reviewed the above laboratory results and/or imaging. LOUIS ANDERSON MD 08/20/2024 7:26 AM Neurology Service * Rashmi Cleveland RN - 08/19/2024 10:17 AM CDTAssociated Order(s): INPATIENT CONSULT TO WOUND CARE Wound Consult for right 3rd toe. Toenail is broken and peeled back, but no open area at this time. Recommendations: RIGHT 3RD TOE:: cleanse with normal saline or wound cleanser, apply Xeroform and dry dressing daily. documented in this encounter Nursing Notes * Shanell Beck RN - 08/25/2024 5:56 PM CDT Hold off on replacing dobhoff until pt is evaluated by ST tomorrow per Dr. Beavers. * Kayley Neil RN - 08/24/2024 1:40 AM CDT At this time - swelling noticed at incision site - Dr. Muhammad notified and responded at bedside - Dr. Muhammad assessed & no new orders at this time - if increase in swelling noticed in the next [address] order * Ilene Conway RN - 08/23/2024 3:34 PM CDT Attempted to contact jalyn Graham. No answer. Spoke to lidia Sorenson RE: procedure start. 1630: procedure update given to lidia Sorenson. 1730: procedure closing update * Wade Hernandez RN - 08/22/2024 6:14 PM CDT 1555: Patient observed lying in bed, respirations even and unlabored. VSS, see flowsheet. Patient pulling telemetry leads off, bilateral lower extremities over the right, lower bed rail. Nurse repositioned patient with assist of two. When asked if patient was any pain, patient tapped belly and upper left side of chest. When patient asked pain quality/clarification questions, pt would only tap chest. Dr. Lozano made aware. 1605: Dr. El-Sayed at bedside assessing patient, provider estonian speaking. See orders. 1609: EKG complete. 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 1730: Grandson at bedside. Patient resting in bed with eyes closed. Responding to painful stimuli and tactile stimuli, does not respond verbally at this time. Grandson informed staff that he will alert staff when patient responds to questions. 1800: Grandson called staff into room, patient reporting left sided chest pain radiating to left shoulder. Dr. Martinez-Sayed at bedside. See orders. * Joycelyn Noonan RN - 08/20/2024 6:09 PM CDT Patient taken to icu at this time, report given to wade abreu. * Joycelyn Noonan RN - 08/20/2024 5:20 PM CDT Notified patient daughter Delta of patient transfer to ICU this pm. Daughter verbalized understanding. * Justina Noble RN - 08/19/2024 3:35 PM CDT 1530-Discussed case with Dr Betancourt, awaiting results of head CT, family member Delta spent most of the day with patient feeding and assisting with repositioning. Will call CT department to check status of inpatient head CT. 1540-CT resulted, notified Dr. Betancourt. * Justina Noble RN - 08/19/2024 12:11 PM CDT 1202-Discussed case with Dr Betancourt, patient appears less responsive and more somnolent, only arousing to deep sternal rub. Will obtain vitals and blood glucose as well as take patient for head CT. documented in this encounter OR Notes * Brief Op Note - Jeanmarie Padgett MD - 08/23/2024 6:30 PM CDT [facility] Brief Op HSHSENDARTERECTOMY CAROTID (RIGHT SIDE OF NECK) Procedure Note Ramírez Fernando 08/23/2024 1505 Procedure(s) (LRB): ENDARTERECTOMY CAROTID (RIGHT SIDE OF NECK) (Right) Surgeon(s): Jeanmarie Padgett MD Popcorn Attendant: Freight Loading Supervisor: Skyler Sebastian CST Anesthesia: General Pre-Op Diagnosis: RIGHT CAROTID ARTERY STENOSIS Post-Op Diagnosis: Same Findings: thrombus right internal carotid Estimated Blood Loss: less than 100 mL Specimens: ID Type Source Tests Collected by Time A : RIGHT CAROTID PLAQUE TISSUE OTHER (type in comments) PATHOLOGY Jeanmarie Padgett MD 08/23/2024 1615 JEANMARIE PADGETT MD Date: 08/23/2024 Time: 6:30 PM * Op Note - Jeanmarie Padgett MD - 08/23/2024 12:00 AM CDT Patient Name: RAMÍREZ FERNANDO. Date of : 1950 Account: [id number] Facility: [facility] Location: [facility] Date of Service: 08/23/2024 Operative Note PROCEDURE: Right carotid endarterectomy. SURGEON: Jeanmarie Padgett MD ANESTHESIA: General. ESTIMATED BLOOD LOSS: 100 mL. SPECIMEN: Right carotid plaque. DRAINS: #15 round. INDICATIONS FOR PROCEDURE: This is a 74-year-old male who presents with cerebrovascular accident and severe right carotid stenosis. The patient presents at this time for right carotid endarterectomy.The risks and benefits of the above-named procedure were discussed with the patient's family members. OPERATIVE REPORT: After informed consent was obtained, the patient was taken to the operating room and placed in supine position on the operating table. After the induction of adequate general endotracheal anesthesia, the head was rotated to the left. The right ear, neck and chest were then preppedand draped in the standard sterile surgical fashion. An oblique skin incision was then made along the anterior border of the sternocleidomastoid muscle. The underlying platysma muscle was then transected. I then identified the internal jugular vein and facial vein and dissected these free from the surrounding tissues. The facial vein was then transected and ligated with 2-0 and 3-0 silk ties. I then identified the common carotid, thyroidal, external and internal carotid arteries and dissected these free from the surrounding tissue. The patient was then administered 5000 units of Heparin intravenously. After 3 minutes, I obtained proximal control of the internal carotid artery, followed by the external carotid artery, the thyroidal and finally the common carotid artery. I then made an arteriotomy extending from the common carotid through the carotid bulb to a region free of disease in the internal carotid artery. The patient was noted to have near occlusion of the internal carotid artery with fresh-appearing thrombus within the lumen of the carotid. Carotid shunt was then inserted. Flow was then restored through the carotid artery. I then performed an endarterectomy removing the plaque from the common carotid bringing the plaque to a feathered endpoint in the external carotid artery and bringing the plaque also to a feathered endpoint in the internal carotid artery. The plaque was then transected and removed from the operative field. I then copiously irrigated the carotid bedwith heparinized saline, removing all flaps, fronds and debris. The distal intima was tacked in place with interrupted 7-0 Prolene sutures. I then closed the arteriotomy with a bovine patch. The patch was sewn to the edge of the vessel with a running 6-0 Prolene suture. Prior to completing the closure, the carotid shunt was removed. The internal and common carotid arteries were then reclamped. I then allowed the internal and external carotid arteries to backbleed and the common carotid to forward flush. I then flushed the vessel with heparinized saline. I then completed the closure. Flow was then restored to the external carotid artery, followed by the common carotid artery. After several heartbeats, I restored flow to the internal carotid artery. Intraoperative ultrasound was performed. This revealed widely patent common and internal carotid arteries with no intraluminal defects. Hemostasis was achieved using electrocautery and Fibrillar. I then placed a 15 round drain in the carotidbed and brought this out through a skin incision in the right neck. The drain was sutured to skin level with 3-0 nylon suture and attached to bulb suction. I then reapproximated the platysma muscle with a running 3-0 Vicryl suture. The skin layer was closed with running 4-0 Monocryl subcuticular suture. Dermabond was applied to the incision as a dressing. The patient was then awakened, extubated,and taken to the ICU in stable condition. All needle, sponge and instrument counts were reported as correct. Cerebral oximetry was used throughout the entire case. Signature/Date: JEANMARIE PADGETT MD #[id number] /LEXIE documented in this encounter ED Notes * Yulia Holland RN - 08/17/2024 1:25 PM CDT Pt gown saturated in urine. Gown changed. * Yulia Holland RN - 08/17/2024 1:15 PM CDT Pt daughter stating pt c/o leg pain. Pt patting his leg and has it extended in stretcher. Daughter states pt has c/o this type of leg pain before and described as cramp. Pt leg massaged pt resting instretcher. * Yulia Holland RN - 08/17/2024 12:55 PM CDT Per son pt was seen at [facility] yesterday 08.16.24 and complained of posterior DOMINGO to nurse no imaging done. * Yulia Holland RN - 08/17/2024 11:01 AM CDT Pt changed into gown. Depends changed. Linens clean. New warm blankets applied. * Yulia Holland RN - 08/17/2024 9:[address] Garza at bedside. Stroke Alert called last known well 08/16/24 @1600. * Yulia Holland RN - 08/17/2024 9:36 AM CDT Pt is able to follow some commands. * Yulia Holland RN - 08/17/2024 9:35 AM CDT LKW yesterday at 4pm. * Dennis Garza MD - 08/17/2024 9:29 AM CDTAssociated Order(s): EKG Reading Chief Complaint Chief Complaint Patient presents with Stroke Alert History of Present Illness The patient is a 74-year-old male with a PMH of BPH, dementia, DM, HTN, proctitis, Hydroureteronephrosis, urinary retention who presents to the ED by EMS from home for evaluation of medical screening. Patient speaks estonian and his son is able to translate. LKW at 1600 yesterday. Patient ws discharged yesterday after being hospitalized for stroke x5 days ago at [facility]. Son states there were multiple infarctions via MRI. At home, he was able to eat and drink without issue. Patient was at baseline until about 1600 after taking xanax 0.25 mg for the first time yesterday. He was also able to take his BP medications at 2030. At 2300, patient's son tried waking him up to get him to the bathroom, but patient was unresponsive and could not speak. His son carried him to the bathroom. [facility] called EMS this morning. En route, his BS ws 244. In this ED, patient cannot follow any commands, but responds to verbal stimuli. Patient is on brilinta and ASA 81 mg. On 07/18/24, patient underwent cardiac cath with stent placement. Patient lives at home. Patient takes xanax, amlodipine, amoxil, ASA 81 mg daily, lipitor, lantus, humalog, enulose, losartan, metoprolol succinate, flomax and brilinta. He has no known allergies. Surgical history includes pacemaker, colonoscopy, lithotripsy and stents. No tobacco, alcohol, or illicit drug use. Patient is COVID immunized. PCP is DONAVON CONNOR MD . Medical History ALLERGIES: Review of patient's allergies indicates: Allergen Reactions Hydroxypropyl Methylcellulose Unknown Artificial tears ingredient Gentamicin Other (see comment) and Unknown Reaction: Reaction: MEDICATIONS: Prior to Admission medications Medication Sig Start Date End Date Taking? Authorizing Provider ALPRAZolam (XANAX) 0.25 MG tablet Take 1 tablet (0.25 mg total) by mouth 3 (three) times daily as needed for Anxiety. 08/15/24 Yes Donavon Connor MD amLODIPine (NORVASC) 5 MG tablet Take 1 tablet (5 mg total) by mouth daily. Indications: High BloodPressure 08/12/24 Yes Donavon Connor MD aspirin 81 MG chewable tablet Chew 1 tablet (81 mg total) by mouth daily. Indications: PreventativeTreatment 07/02/24 Yes Doc [facility] atorvastatin (LIPITOR) 80 MG tablet Take 1 tablet (80 mg total) by mouth daily. Indications: High Amount of Chloride in the Blood 07/02/24 Yes Doc [facility] insulin glargine (LANTUS) 100 UNIT/ML injection (VIAL) Indications: Diabetes ADMINISTER 9 UNITS UNDER THE SKIN EVERY MORNING Patient taking differently: Inject 6 Units into the skin nightly at bedtime. Indications: Diabetes 06/24/24 Yes Donavon Connor MD lactulose (ENULOSE) 10 GM/15ML solution TAKE 30 ML BY MOUTH THREE TIMES DAILY FOR CONSTIPATION 07/29/24 Yes Donavon Connor MD metoprolol succinate ER (TOPROL-XL) 50 MG 24 hr tablet Take 1 tablet (50 mg total) by mouth daily. Indications: High Blood Pressure 07/02/24 Yes Doc [facility] tamsulosin (FLOMAX) 0.4 MG Cap Take 1 capsule (0.4 mg total) by mouth daily. Indications: Benign prostatic hyperplasia (BPH) suspected 08/06/24 Yes Donavon Connor MD ticagrelor (BRILINTA) 90 mg tablet Take 1 tablet (90 mg total) by mouth 2 (two) times daily. Indications: Diabetes 07/02/24 Yes Doc [facility] Abstract insulin lispro, 1 Unit Dial, (HUMALOG KWIKPEN) 100 UNIT/ML injection (PEN) Inject 4-10 Units into the skin see administration instructions. Indications: Diabetes Sliding Scale: 200-250+4u, 250-300 6u, 300-350+8u, 350-400 10u, >400 take 10u and re-measure after 30 min if still above 400 call a doctor 06/24/24 Donavon Connor MD Senna (SENOKOT) 8.6 MG tablet Take 1 tablet (8.6 mg total) by mouth 2 (two) times daily as needed for Constipation. 08/16/24 Default History Genericprovider PAST MEDICAL HISTORY: Past Medical History: Diagnosis Date BPH (benign prostatic hyperplasia) Constipation Dementia without behavioral disturbance ([facility]/HCC) suspected underlying Diabetes mellitus ([facility]/HCC [facility]) History of colonoscopy 04/13/2024 Hydroureteronephrosis Hypertension Other specified noninfective gastroenteritis and colitis Proctitis Renal cyst Unilateral inguinal hernia, without obstruction or gangrene, not specified as recurrent 12/20/2021 Urinary retention PAST SURGICAL HISTORY: Past Surgical History: Procedure Laterality Date COLONOSCOPY N/A 04/13/2024 COLONOSCOPY WITH CECAL POLYPECTOMY VIA COLD SNARE performed by Bobby Quiñonez MD at [facility] DRAIN SKIN ABSCESS SIMPLE LITHOTRIPSY FAMILY HISTORY: No family history on file. SOCIAL HISTORY: Social History Tobacco Use Smoking status: Never Passive exposure: Never Smokeless tobacco: Never Vaping Use Vaping status: Never Used Substance Use Topics Alcohol use: Not Currently Drug use: Not Currently Review of Systems Review of Systems Unable to perform ROS: Mental status change Physical Exam Filed Vitals: 08/17/24 1015 08/17/24 1030 08/17/24 1045 08/17/24 1100 BP: (!) 170/79 137/66 (!) 156/77 (!) 157/81 Pulse: 75 68 68 67 Resp: 21 17 18 18 Temp: TempSrc: SpO2: 97% 98% 97% 99% Weight: Height: Pulse Ox ordered and interpreted: Saturation: 97 (%) Oxygen Delivery: room air Interpretation: No acute hypoxia at this time. Rhythm strip ordered and interpreted: Normal sinus rhythm. Rate 68. No ectopy. Physical Exam Constitutional: Appearance: Normal appearance. Cardiovascular: Rate and Rhythm: Normal rate and regular rhythm. Pulmonary: Effort: Pulmonary effort is normal. Breath sounds: Normal breath sounds. Abdominal: General: Abdomen is flat. Palpations: Abdomen is soft. Tenderness: There is no abdominal tenderness. Neurological: General: No focal deficit present. Mental Status: He is lethargic. Comments: Responsive to verbal stimuli. Unable to follow commands. Diagnostic Studies / Procedures ELECTROCARDIOGRAMS: Results for orders placed or performed during the hospital encounter of 08/17/24 ECG [address] [facility] [facility] Test Date: 2024-08-17 Pat Name: RAMÍREZ FERNANDO Department: 41 Room: [place] [address] Gender: Male Insight Director: [id number] : 1950 Requested By: DENNIS GARZA Order Number: [id number] Reading MD: Measurements Intervals [place] Rate: 70 P: 49 MO: 175 QRS: -29 QRSD: 150 T: 115 QT: 442 QTc: 479 Interpretive Statements SINUS RHYTHM LEFT BUNDLE BRANCH BLOCK [120+ ms QRS DURATION, 80+ ms Q/S IN V1/V2, 85+ ms R IN I/aVL/V5/V6] Compared to ECG 06/22/2023 15:09:14 Left bundle-branch block now present T-wave abnormality no longer present Possible ischemia no longer present LABORATORY STUDIES: Results for orders placed or performed during the hospital encounter of 08/17/24 CBC W/DIFF AUTOMATED Result Value Ref Range WBC 9.53 4.5 - 11.0 x10'3/uL RBC 4.76 4.70 - 6.10 x10'6/uL HGB 13.3 (L) 14.0 - 18.0 G/DL HCT 41.8 (L) 43.0 - 54.0 % MCV 87.8 80.0 - 94.0 FL MCH 27.9 27.0 - 31.0 PG MCHC 31.8 (L) 32.0 - 36.0 G/DL RDW 15.2 (H) 11.5 - 14.5 % PLT 265 130 - 400 x10'3/uL MPV 10.8 9.3 - 12.2 FL DIFFERENTIAL TYPE AUTOMATED DIFFERENTIAL NEUTROPHILS % 57.0 % LYMPHOCYTES % 32.8 % MONOCYTES % 7.2 % EOSINOPHILS 2.0 % BASOPHILS 0.7 % IMMATURE GRANS % 0.3 % ABS. NEUTROPHILS 5.42 1.80 - 7.70 x10'3/uL ABS. LYMPHOCYTES 3.13 1.00 - 4.80 x10'3/uL ABS. MONOCYTES 0.69 0.30 - 0.82 x10'3/uL ABS. EOSINOPHILS 0.19 0.04 - 0.54 x10'3/uL ABS. BASOPHILS 0.07 0.01 - 0.08 x10'3/uL ABS. IMMATURE GRANULOCYTES 0.03 0.00 - 0.49 x10'3/uL PROTIME/INR, VENOUS Result Value Ref Range PROTIME 11.3 10.2 - 12.9 SEC INR 1.0 PARTIAL THROMBOPLASTIN TIME,PTT Result Value Ref Range PTT 24.4 (L) 25.1 - 36.5 SEC COMPREHENSIVE METABOLIC PANEL Result Value Ref Range GLUCOSE 240 (H) 70 - 99 MG/DL BUN 23 (H) 7 - 18 MG/DL CREATININE S/P/B 1.44 (H) 0.7 - 1.3 MG/DL SODIUM S/P/B 138 136 - 145 MMOL/L POTASSIUM S/P/B 3.6 3.5 - 5.1 MMOL/L CHLORIDE S/P/B 105 97 - 115 MMOL/L CO2 26.9 21 - 32 MMOL/L CALCIUM S/P/B 9.3 8.5 - 10.1 MG/DL BILIRUBIN TOTAL S/P/B 0.8 0.2 - 1.2 MG/DL TOTAL PROTEIN S/P/B 7.7 6.4 - 8.2 G/DL ALBUMIN S/P/B 3.3 (L) 3.4 - 5.0 G/DL AST 18 15 - 37 U/L ALT 23 16 - 60 U/L ALKALINE PHOSPHATASE S/P/B 101 50 - 136 U/L ANION GAP 6.1 2 - 10 MMOL/L BUN CREATININE RATIO 16.0 6 - 26 A/G RATIO 0.8 (L) 1.0 - 2.0 RATIO GFR ESTIMATE 50 (L) >90 ML/MIN/1.73 M2 TROPONIN, QUANT Result Value Ref Range TROPONIN I HIGH SENSITIVITY 54 <79 ng/L POCT glucose Result Value Ref Range GLUCOSE POC 274 (H) 70 - 99 mg/dL IMAGING STUDIES XR CHEST PORTABLE Final Result by User, [id number] (08/17 1020) [place] [address] Examination: Chest x-ray 1 view Exam Date/Time: 08/17/2024 10:00 AM Reason For Exam: Altered mental status Altered mental status Comparison: Chest radiograph 06/22/2023 Technique: Single AP view of the chest was obtained. Findings: No large effusion. No pneumothorax. Atherosclerotic aorta. Elevated right hemidiaphragm similar to prior study. Pulmonary vasculature within normal limits. No consolidation. Multiple postsurgical changes in the right ribs. No convincing new infiltrate. ======== IMPRESSION: ======== 1. No convincing new acute cardiopulmonary findings. Referred By: Interpreted By: Dennis Hutson MD, 08/17/2024 10:[address] STROKE(HEAD WO) Final Result by User, [id number] (08/17 1006) [place] [address] Procedure(s): CT STROKE(HEAD WO) Date of service: [...] acute or subacute ischemic change. MRI recommended. IMPRESSION: There is a focal area of hypoattenuation in the right occipital lobe posteriorly. This may relate to an area of ischemic change. This may be acute to subacute. This is new as compared to June 22, 2023. Diffuse white matter hypoattenuating areas suspected due to chronic small vessel ischemic disease. No midline shift. Verbal preliminary given to Dr. Garza at 10:05 AM. Referred By: Interpreted By: Salvador Pretty MD, 08/17/2024 9:59 AM CTA HEAD+NECK Final Result by User, [id number] (08/17 1036) [address] [address] Examination: CTA of the head and neck [...] basilar artery. Asymmetric diminished prominence of left EMBROIDERY WORKER territory noted with no focal high-grade stenosis appreciated. CTA neck: Left aortic arch. [...] left ICA 9 mm above the origin. IMPRESSION: 1. [...] artery. 8. Asymmetric diminished prominence of left EMBROIDERY WORKER territory vasculature with no focal high-grade stenosis appreciated. 9. Approximately 50% stenosis at origin of left ICA. Up to 60% stenosis of left ICA 9 mm above the origin. 10. Moderate stenosis at origin of left ECA. Referred By: Interpreted By: Dennis Hutson MD, 08/17/2024 10:21 AM EKG Reading Date/Time: 08/17/2024 10:03 AM Performed by: Dennis Garza MD Authorized by: Dennis Garza MD Interpreted by ED physician Comparison: compared with previous ECG Rhythm: sinus rhythm Rate: normal BPM: 70 Comments: Normal sinus rhythm heart rate 70. Normal axis left bundle branch block normal interval nonspecific ST-T wave change. Compared to EKG 06/22/2023 Rhythm strip ordered interpreted 935 Normal sinus rhythm. Heart rate 70. No ectopy ED Course / Medical Decision Making Medical Decision Making The patient is a 74-year-old male with a PMH of BPH, dementia, DM, HTN, proctitis, Hydroureteronephrosis, urinary retention who presents to the ED by EMS from home for evaluation of medical screening. Patient speaks estonian and his son is able to translate. LKW at 1600 yesterday. Patient ws discharged yesterday after being hospitalized for stroke x5 days ago at [facility]. Son states there were multiple infarctions via MRI. At home, he was able to eat and drink without issue. Patient was at baseline until about 1600 after taking xanax 0.25 mg for the first time yesterday. He was also able to take his BP medications at 2030. At 2300, patient's son tried waking him up to get him to the bathroom, but patient was unresponsive and could not speak. His son carried him to the bathroom. [facility] called EMS this morning. En route, his BS ws 244. In this ED, patient cannot follow any commands, but responds to verbal stimuli. Patient is on brilinta and ASA 81 mg. On 07/18/24, patient underwent cardiac cath with stent placement. Patient lives at home. Patient takes xanax, amlodipine, amoxil, ASA 81 mg daily, lipitor, lantus, humalog, enulose, losartan, metoprolol succinate, flomax and brilinta. He has no known allergies. Surgical history includes pacemaker, colonoscopy, lithotripsy and stents. No tobacco, alcohol, or illicit drug use. Patient is COVID immunized. PCP is DONAVON CONNOR MD . Problems Addressed: Altered mental status: acute illness or injury Details: Reassuring laboratory. Concerning CTA/CT CVA (cerebral vascular accident) ([facility]): acute illness or injury Details: Communicated with teleneurologist and stroke neurologist at [facility] Amount and/or Complexity of Data Reviewed Independent Historian: Details: History provided by son. External Data Reviewed: notes. Details: 08/12/24 brain MRI reviewed. Reviewed office note from 07/29/2024 Dr. Connor Reviewed cardiac report from 07/18/2024 Labs: ordered. Decision-making details documented in ED Course. Radiology: ordered. Decision-making details documented in ED Course. ECG/medicine tests: ordered and independent interpretation performed. Decision- making details documented in ED Course. Discussion of management or test interpretation with external provider(s): Spoke with Dr. Bobby Corrales teleneurology Spoke with Dr. Pretty Radiologist about CT head findings Communicated with hospitalist Risk Prescription drug management. Decision regarding hospitalization. Critical Care Total time providing critical care: 40 minutes ED Course as of 08/17/24 1113 Sat Aug 17, 2024 0939 MRI from 08/12/2024 from outside facility/[facility] impression: Evaluation mildly limited by motion artifact which affects most prominently insensitivity on postcontrast imaging. To multiple acute infarcts in the right cerebral hemisphere including the right frontal parietal and posterior temporal lobes suggesting sharp emboli in the right middle cerebral artery vascular distribution.Additional chronic infarcts in the left basal ganglia and right parietal and occipital lobes. [CA] 0946 Patient also had cardiac stents July 18, 2024 at [facility] by Dr. Ratliff [CA] [address] Bobby Corrales. Request CT brain and CTA head neck will see patient. [CA] 0953 Patient last known normal 1600 hrs. yesterday 08/16/2024 [CA] 1005 Spoke with radiology. Hypoattenuation area right occipital watershed area new since May. Informed him of the MRI results from 08/12/2024 from [facility]. [CA] [address] Bobby Corrales. Recommends speaking with interventional stroke team for right vertebral occlusion. Vertebral arteries on the CTA from 317 was noted to have a dominant left vertebralartery normal caliber and contour no mention of the right vertebral artery. [CA] 1046 Spoke with [facility] access line. She did agree with . Reviewed patient's historyand CT and CTA head and neck from today as well as the CTA and MRI from August 12, 2024 from [facility]. There is no intervention to perform on this patient has a left dominant vertebral artery circulation. Maximum medical treatment. [CA] 1053 Had extensive discussion with son who is at bedside. Answered questions reviewed MRI and CT reports and recommendation by teleneurology and interventional radiologist. [CA] 1057 Doc halo hospitalist [CA] 1105 Doc rafia with hospitalist [CA] ED Course User Index [CA] Dennis Garza MD Clinical Impression Altered mental status CVA (cerebral vascular accident) ([facility]) (Primary) CRITICAL CARE ADDENDUM: Indication: CVA Service Time: 40 minutes Time Type: Intermittent I provided a total of 40 minutes of critical care excluding separately billable procedures. This includes time with EMS 5 minutes, initial bedside evaluation, reviewing old records, review of testingdone while under my care, discussion with the staff, nurses, and guiding the patient???s care whilein the emergency department. Approximant time distribution: 15 minutes - Initial evaluation, d/w involved parties, attempting to gather old records 5 minutes - Documenting medical record 10 minutes - Review of results (EKGs, labs, imaging) 10 minutes - Serial repeat bedside evaluation Please see main chart for details. Excludes separately billable procedures. 74-year-old male presents emergency department by EMS. With son. Altered mental status. Last known normal 1600 hrs. yesterday 08/16/2024. Nonverbal opens eyes to verbal stimuli does not follow commands recent CVA at [facility] workup 08/12/2024. Patient seen meetly upon arrival. Head CT and CTA head and neck. I spoke with Dr. Bobby Corrales teleneurologist who recommended I reach out to interventional list. Spoke with at [facility] stroke neurologist discussed all significant information. Not a candidate for intervention. Recommends maximal medical treatment. I communicated with hospitalist. Agrees with 23-hour observation to telemetry. Will see patient place orders. Had extensive discussion about patient's results and treatment plan with son who is at bedside. Disposition: Observation Voice-recognition software used. I, Jolene Alvarez, acting as scribe, am personally taking down the notes in the presence of Dr. Dennis Garza MD. Take no action on this note until reviewed and authenticated by the physician. Dennis Garza MD 08/17/24 1113 * Yulia Holland RN - 08/17/2024 9:25 AM CDT Pt via ems from home with son. Pt speaks estonian. Pt son is able to translate. Son states pt has been unable to wake up since yesterday at 4:00 pm. Pt son states pt took a BP medication at 830pm but has been unable to be woken up . Family was worried when pt still wasn't arousable this morning. Pt is very lethargic in triage and unable to answer questions. Pt attempts to say name but unable to get it out. * Anderson Coleman RN - 08/17/2024 9:22 AM CDT Bed: 06 Expected date: 08/17/24 Expected time: Means of arrival: Comments: 2041 documented in this encounter Plan of Treatment Upcoming Encounters Date Type Department Care Team (Late st Contact Info) Description 09/18/2024 11:00 AM CDT [facility] [address] [place] [address] Jeanmarie Padgett MD Three [facility]. [address] [place] [address] 01/06/2025 11:00 AM CDT Office Visit [facility] - [facility] [address] [facility], [address] [place] [address] Louis Anderson MD [address] [place] [address] documented as of this encounter Goals Goal Patient Goal Type Associated Problems Recent Progress Patient-Stated? Author Family - family caregiver with be involved in care transitions and discharge planning Lifestyle No Beth Alvarez, public health technologist - family caregiver with be involved in care transitions and discharge planning Lifestyle No Etelvina Craven RN documented as of this encounter Procedures Procedure Name Priority Date/Time Associated Diagnosis Comments POCT GLUCOSE - GODINEZ DOCKED DEVICE Routine 08/27/2024 7:41 AM CDT POCT GLUCOSE - GODINEZ DOCKED DEVICE Routine 08/27/2024 5:28 AM CDT BASIC METABOLIC PANEL Routine 08/27/2024 3:30 AM CDT CBC W/DIFF AUTOMATED Routine 08/27/2024 3:30 AM CDT POCT GLUCOSE - GODINEZ DOCKED DEVICE Routine 08/26/2024 11:45 PM CDT POCT GLUCOSE - GODINEZ DOCKED DEVICE Routine 08/26/2024 5:34 PM CDT POCT GLUCOSE - GODINEZ DOCKED DEVICE Routine 08/26/2024 11:07 AM CDT POCT GLUCOSE - GODINEZ DOCKED DEVICE Routine 08/26/2024 6:17 AM CDT BASIC METABOLIC PANEL Routine 08/26/2024 4:00 AM CDT CBC W/DIFF AUTOMATED Routine 08/26/2024 4:00 AM CDT POCT GLUCOSE - GODINEZ DOCKED DEVICE Routine 08/25/2024 11:14 PM CDT POCT GLUCOSE - GODINEZ DOCKED DEVICE Routine 08/25/2024 5:36 PM CDT POCT GLUCOSE - GODINEZ DOCKED DEVICE Routine 08/25/2024 11:18 AM CDT POCT GLUCOSE - GODINEZ DOCKED DEVICE Routine 08/25/2024 6:33 AM CDT BASIC METABOLIC PANEL Routine 08/25/2024 2:58 AM CDT CBC W/DIFF AUTOMATED Routine 08/25/2024 2:58 AM CDT XR CHEST PA OR AP 1V ESTHER 08/24/2024 10:44 PM CDT XR CHEST PORTABLE STAT 08/24/2024 9:4 4 PM CDT POCT GLUCOSE - GODINEZ DOCKED DEVICE Routine 08/24/2024 9:37 PM CDT POCT GLUCOSE - GODINEZ DOCKED DEVICE Routine 08/24/2024 4:47 PM CDT POCT GLUCOSE - GODINEZ DOCKED DEVICE Routine 08/24/2024 11:44 AM CDT BASIC METABOLIC PANEL Routine 08/24/2024 4:00 AM CDT CBC W/DIFF AUTOMATED Routine 08/24/2024 4:00 AM CDT POCT GLUCOSE - GODINEZ DOCKED DEVICE Routine 08/23/2024 7:46 PM CDT CBC W/DIFF AUTOMATED Routine 08/23/2024 6:48 PM CDT USV GD INTRAOPERATIVE Today 08/23/2024 5:12 PM CDT CVA (cerebral vascular accident) ([facility]) THROMBOENDARTECTMY NECK,NECK INCIS 08/23/2024 2:48 PM CDT Carotid stenosis, right Case Notes SCHED BY ALKA ON 08/21/24 [facility] PHONE ASSESS HEPARIN, ANTI XA, UFH TIMED 08/23/2024 12:15 PM CDT ECG 12-LEAD STAT 08/23/2024 10:02 AM CDT HEPARIN, ANTI XA, UFH TIMED 08/23/2024 4:00 AM CDT BASIC METABOLIC PANEL Routine 08/23/2024 4:00 AM CDT CBC W/DIFF AUTOMATED Routine 08/23/2024 4:00 AM CDT TROPONIN, QUANT Routine 08/23/2024 4:00 AM CDT PATHOLOGY Routine 08/23/2024 12:00 AM CDT POCT GLUCOSE - GODINEZ DOCKED DEVICE Routine 08/22/2024 11:23 PM CDT POCT GLUCOSE - GODINEZ DOCKED DEVICE Routine 08/22/2024 7:55 PM CDT POCT GLUCOSE - GODINEZ DOCKED DEVICE Routine 08/22/2024 5:25 PM CDT TROPONIN, QUANT STAT 08/22/2024 4:13 PM CDT ECG 12-LEAD STAT 08/22/2024 4:09 PM CDT POCT GLUCOSE - GODINEZ DOCKED DEVICE Routine 08/22/2024 11:15 AM CDT POCT GLUCOSE - GODINEZ DOCKED DEVICE Routine 08/22/2024 5:29 AM CDT HEPARIN, ANTI XA, UFH TIMED 08/22/2024 4:19 AM CDT BASIC METABOLIC PANEL Routine 08/22/2024 4:19 AM CDT CBC W/DIFF AUTOMATED Routine 08/22/2024 4:19 AM CDT HEPARIN, ANTI XA, UFH TIMED 08/22/2024 1:17 AM CDT POCT GLUCOSE - GODINEZ DOCKED DEVICE Routine 08/21/2024 11:14 PM CDT POCT GLUCOSE - GODINEZ DOCKED DEVICE Routine 08/21/2024 8:09 PM CDT HEPARIN, ANTI XA, UFH TIMED 08/21/2024 6:46 PM CDT POCT GLUCOSE - GODINEZ DOCKED DEVICE Routine 08/21/2024 4:32 PM CDT POCT GLUCOSE - GODINEZ DOCKED DEVICE Routine 08/21/2024 12:47 PM CDT HEPARIN, ANTI XA, UFH TIMED 08/21/2024 11:30 AM CDT CTA HEART W 3D IMAGING Today 9:[address] HEAD WO CON TIMED 08/21/2024 9:28 AM CDT TROPONIN, QUANT STAT 08/21/2024 8:40 AM CDT ECG 12-LEAD Routine 08/21/2024 8:07 AM CDT POCT GLUCOSE - GODINEZ DOCKED DEVICE Routine 08/21/2024 6:13 AM CDT MRSA SCREENING Routine 08/21/2024 4:11 AM CDT HEPARIN, ANTI XA, UFH TIMED 08/21/2024 4:07 AM CDT BASIC METABOLIC PANEL Routine 08/21/2024 4:07 AM CDT CBC W/DIFF AUTOMATED Routine 08/21/2024 4:07 AM CDT HEPARIN, ANTI XA, UFH TIMED 08/21/2024 2:58 AM CDT HEPARIN, ANTI XA, UFH TIMED 08/21/2024 1:51 AM CDT HEPARIN, ANTI XA, UFH TIMED 08/21/2024 12:27 AM CDT POCT GLUCOSE - GODINEZ DOCKED DEVICE Routine 08/20/2024 8:30 PM CDT PARTIAL THROMBOPLASTIN TIME,PTT STAT 08/20/2024 6:00 PM CDT PROTHROMBIN TIME, VENOUS STAT 025 6:00 PM CDT CBC W/DIFF AUTOMATED STAT 08/20/2024 6:00 PM CDT POCT GLUCOSE - GODINEZ DOCKED DEVICE Routine 08/20/2024 3:55 PM CDT USV CAROTID DUPLEX GARY Today 2:53 PM CDT POCT GLUCOSE - GODINEZ DOCKED DEVICE Routine 08/20/2024 11:09 AM CDT POCT GLUCOSE - GODINEZ DOCKED DEVICE Routine 08/20/2024 6:03 AM CDT BASIC METABOLIC PANEL Routine 08/20/2024 5:48 AM CDT CBC W/DIFF AUTOMATED Routine 08/20/2024 5:48 AM CDT POCT GLUCOSE - GODINEZ DOCKED DEVICE Routine 08/19/2024 7:57 PM CDT POCT GLUCOSE - GODINEZ DOCKED DEVICE Routine 08/19/2024 2:[address] HEAD WO CON Today 08/19/2024 12:44 PM CDT POCT GLUCOSE - GODINEZ DOCKED DEVICE Routine 08/19/2024 12:17 PM CDT POCT GLUCOSE - GODINEZ DOCKED DEVICE Routine 08/19/2024 10:26 AM CDT BASIC METABOLIC PANEL Routine 08/19/2024 6:07 AM CDT CBC W/DIFF AUTOMATED Routine 08/19/2024 6:07 AM CDT POCT GLUCOSE - GODINEZ DOCKED DEVICE Routine 08/19/2024 5:33 AM CDT POCT GLUCOSE - GODINEZ DOCKED DEVICE Routine 08/18/2024 7:32 PM CDT POCT GLUCOSE - GODINEZ DOCKED DEVICE Routine 08/18/2024 4:11 PM CDT USE ECHOCARDIOGRAM W CON Today 025 4:03 PM CDT POCT GLUCOSE - GODINEZ DOCKED DEVICE Routine 08/18/2024 10:56 AM CDT BASIC METABOLIC PANEL Routine 08/18/2024 8:24 AM CDT CBC W/DIFF AUTOMATED Routine 08/18/2024 8:24 AM CDT POCT GLUCOSE - GODINEZ DOCKED DEVICE Routine 08/18/2024 5:36 AM CDT HC URINALYSIS AUTO W/O MICRO STAT 08/17/2024 9:25 PM CDT POCT GLUCOSE - GODINEZ DOCKED DEVICE Routine 08/17/2024 8:36 PM CDT POCT GLUCOSE - GODINEZ DOCKED DEVICE Routine 08/17/2024 3:56 PM CDT MRI BRAIN WO CON Today 08/17/2024 2:27 PM CDT POCT GLUCOSE - GODINEZ DOCKED DEVICE Routine 08/17/2024 11:52 AM CDT TROPONIN, QUANT STAT 08/17/2024 11:50 AM CDT XR CHEST PORTABLE STAT 08/17/2024 10:16 AM CDT POCT GLUCOSE - GODINEZ DOCKED DEVICE Routine 08/17/2024 10:09 AM CDT ELECTROCARDIOGRAM REPORT Routine 10:[address] STROKE(HEAD WO) STAT 08/17/2024 9: 55 AM CDT CTA HEAD+NECK STAT 08/17/2024 9:55 AM CDT HEMOGLOBIN, GLYCOSYLATED Routine 025 9:39 AM CDT PARTIAL THROMBOPLASTIN TIME,PTT STAT 08/17/2024 9:39 AM CDT PROTHROMBIN TIME, VENOUS STAT 025 9:39 AM CDT COMPREHENSIVE METABOLIC PANEL STAT 08/17/2024 9:39 AM CDT LIPID PANEL Routine 08/17/2024 9:39 AM CDT CBC W/DIFF AUTOMATED STAT 08/17/2024 9:39 AM CDT TROPONIN, QUANT STAT 08/17/2024 9:39 AM CDT MAGNESIUM Routine 08/17/2024 9:39 AM CDT ECG 12-LEAD Routine 08/17/2024 9:35 AM CDT documented in this encounter Results * (ABNORMAL) POCT glucose (08/27/2024 7:41 AM CDT) GLUCOSE POC 122(H) 70 - 99 mg/dL 08/27/2024 7:45 AM CDT [facility] 08/27/2024 7:41 AM CDT Krissy Wilson DO POCT ORDERABLES - DEVICE Final Result [facility] [address] [place] [address], [place] [phone] * (ABNORMAL) POCT glucose (08/27/2024 5:28 AM CDT) GLUCOSE POC 126(H) 70 - 99 mg/dL 08/27/2024 5:37 AM CDT [facility] 08/27/2024 5:28 AM CDT Perlita Beavers MD POCT ORDERABLES - DEVICE Final Result [facility] [address] [place] [address], [place] [phone] * (ABNORMAL) CBC W/DIFF AUTOMATED (08/27/2024 3:30 AM CDT) [facility] WBC 9.39 4.5 - 11.0 x10'3/uL 08/27/2024 3:53 AM CDT [facility] RBC 3.52(L) 4.70 - 6.10 x10'6/uL 08/27/2024 3:53 AM CDT [facility] HGB 10.1(L) 14.0 - 18.0 G/DL 08/27/2024 3:53 AM CDT [facility] HCT 31.5(L) 43.0 - 54.0 % 08/27/2024 3:53 AM CDT [facility] MCV 89.5 80.0 - 94.0 FL 08/27/2024 3:53 AM CDT [facility] MCH 28.7 27.0 - 31.0 PG 08/27/2024 3:53 AM CDT [facility] MCHC 32.1 32.0 - 36.0 G/DL 08/27/2024 3:53 AM CDT [facility] RDW 15.8(H) 11.5 - 14.5 % 08/27/2024 3:53 AM CDT [facility] PLT 266 130 - 400 x10'3/uL 08/27/2024 3:53 AM CDT [facility] MPV 11.2 9.3 - 12.2 FL 08/27/2024 3:53 AM CDT [facility] DIFFERENTIAL TYPE AUTOMATED DIFFERENTIAL 08/27/2024 3:53 AM CDT [facility] NEUTROPHILS % 65.0 % 08/27/2024 3:53 AM CDT [facility] LYMPHOCYTES % 20.0 % 08/27/2024 3:53 AM CDT [facility] MONOCYTES % 11.5 % 08/27/2024 3:53 AM CDT [facility] EOSINOPHILS 2.9 % 08/27/2024 3:53 AM CDT [facility] BASOPHILS 0.2 % 08/27/2024 3:53 AM CDT [facility] IMMATURE GRANS % 0.4 % 08/28/19 3:53 AM CDT [facility] ABS. NEUTROPHILS 6.10 1.80 - 7.70 x10'3/uL 08/27/2024 3:53 AM CDT [facility] ABS. LYMPHOCYTES 1.88 1.00 - 4.80 x10'3/uL 08/27/2024 3:53 AM CDT [facility] ABS. MONOCYTES 1.08(H) 0.30 - 0.82 x10'3/uL 08/27/2024 3:53 AM CDT [facility] ABS. EOSINOPHILS 0.27 0.04 - 0.54 x10'3/uL 08/27/2024 3:53 AM CDT [facility] ABS. BASOPHILS 0.02 0.01 - 0.08 x10'3/uL 08/27/2024 3:53 AM CDT [facility] ABS. IMMATURE GRANULOCYTES 0.04 0.00 - 0.49 x10'3/uL 08/27/2024 3:53 AM CDT [facility] 08/27/2024 3:30 AM CDT us Perlita Beavers MD LABORATORY Final Res ult [facility] [address] [place] [address], [place] [phone] * (ABNORMAL) BASIC METABOLIC PANEL (08/27/2024 3:30 AM CDT) [facility] GLUCOSE 99 70 - 99 MG/DL 08/27/2024 4:11 AM T [facility] BUN 20(H) 7 - 18 MG/DL 08/27/2024 4:11 AM T [facility] CREATININE S/P/B 0.97 0.7 - 1.3 MG/DL 08/27/2024 4:11 AM T [facility] SODIUM S/P/B 141 136 - 145 MMOL/L 08/27/2024 4:11 AM T [facility] POTASSIUM S/P/B 3.1(L) 3.5 - 5.1 MMOL/L 08/27/2024 4:11 AM T [facility] CHLORIDE S/P/B 107 97 - 115 MMOL/L 08/27/2024 4:11 AM T [facility] CO2 26.3 21 - 32 MMOL/L 08/27/2024 4:11 AM T [facility] CALCIUM S/P/B 8.5 8.5 - 10.1 MG/DL 08/27/2024 4:11 AM T [facility] ANION GAP 7.7 2 - 10 MMOL/L 08/27/2024 4:11 AM T [facility] BUN CREATININE RATIO 20.5 6 - 26 08/27/2024 4:11 AM [facility] GFR ESTIMATE 81(L) >90 ML/MIN/1.7 3 M2 08/27/2024 4:11 AM T [facility] Comment: NOTE: eGFR is not calculated for patients <18 years of age or gender unknown. This is an estimated GFR calculation using the new CKD EPI creatinine equation without race and so does not require a correction factor for race. This estimated GFR should not be used for calculating drug doses. 08/27/2024 3:30 AM CDT us Perlita Beavers MD LABORATORY Final Res ult [facility] [address] [place] [address], [place] [phone] * (ABNORMAL) POCT glucose (08/26/2024 11:45 PM CDT) GLUCOSE POC 147(H) 70 - 99 mg/dL 08/27/2024 12:09 AM CDT [facility] 08/26/2024 11:4 5 PM CDT us Perlita Beavers MD POCT ORDERABLES - DEVICE Final Result Performing Organization Address City/[facility]/ZIP Co de Phone Number [facility] [address] [place] [address], [place] [phone] * (ABNORMAL) POCT glucose (08/26/2024 5:34 PM CDT) GLUCOSE POC 177(H) 70 - 99 mg/dL 08/26/2024 9:07 PM CDT [facility] 08/26/2024 5:34 PM CDT us Perlita Beavers MD POCT ORDERABLES - DEVICE Final Result [facility] [address] [place] [address], [place] [phone] * (ABNORMAL) POCT glucose (08/26/2024 11:07 AM CDT) GLUCOSE POC 190(H) 70 - 99 mg/dL 08/26/2024 11:11 AM CDT [facility] 08/26/2024 11:0 7 AM CDT us Perlita Beavers MD POCT ORDERABLES - DEVICE Final Result [facility] [address] [place] [address], [place] [phone] * (ABNORMAL) POCT glucose (08/26/2024 6:17 AM CDT) GLUCOSE POC 171(H) 70 - 99 mg/dL 08/26/2024 6:24 AM CDT [facility] 08/26/2024 6:17 AM CDT Perlita Beavers MD POCT ORDERABLES - DEVICE Final Result [facility] [address] [place] [address], [place] [phone] * (ABNORMAL) CBC W/DIFF AUTOMATED (08/26/2024 4:00 AM CDT) WBC 10.64 4.5 - 11.0 x10'3/uL 08/26/2024 5:03 AM CDT [facility] RBC 3.52(L) 4.70 - 6.10 x10'6/uL 08/26/2024 5:03 AM CDT [facility] HGB 10.0(L) 14.0 - 18.0 G/DL 08/26/2024 5:03 AM CDT [facility] HCT 31.6(L) 43.0 - 54.0 % 08/26/2024 5:03 AM CDT [facility] MCV 89.8 80.0 - 94.0 FL 08/26/2024 5:03 AM CDT [facility] MCH 28.4 27.0 - 31.0 PG 08/26/2024 5:03 AM CDT [facility] MCHC 31.6(L) 32.0 - 36.0 G/DL 08/26/2024 5:03 AM CDT [facility] RDW 15.6(H) 11.5 - 14.5 % 08/26/2024 5:03 AM CDT [facility] PLT 216 130 - 400 x10'3/uL 08/26/2024 5:03 AM CDT [facility] MPV 11.7 9.3 - 12.2 FL 08/26/2024 5:03 AM CDT [facility] DIFFERENTIAL TYPE AUTOMATED DIFFERENTIAL 08/26/2024 5:03 AM CDT [facility] NEUTROPHILS % 74.1 % 08/26/2024 5:03 AM CDT [facility] LYMPHOCYTES % 14.0 % 08/26/2024 5:03 AM CDT [facility] MONOCYTES % 10.7 % 08/26/2024 5:03 AM CDT [facility] EOSINOPHILS 0.5 % 08/26/2024 5:03 AM CDT [facility] BASOPHILS 0.3 % 08/26/2024 5:03 AM CDT [facility] IMMATURE GRANS % 0.4 % 08/27/19 5:03 AM CDT [facility] ABS. NEUTROPHILS 7.89(H) 1.80 - 7.70 x10'3/uL 08/26/2024 5:03 AM CDT [facility] ABS. LYMPHOCYTES 1.49 1.00 - 4.80 x10'3/uL 08/26/2024 5:03 AM CDT [facility] ABS. MONOCYTES 1.14(H) 0.30 - 0.82 x10'3/uL 08/26/2024 5:03 AM CDT [facility] ABS. EOSINOPHILS 0.05 0.04 - 0.54 x10'3/uL 08/26/2024 5:03 AM CDT [facility] ABS. BASOPHILS 0.03 0.01 - 0.08 x10'3/uL 08/26/2024 5:03 AM CDT [facility] ABS. IMMATURE GRANULOCYTES 0.04 0.00 - 0.49 x10'3/uL 08/26/2024 5:03 AM CDT [facility] 08/26/2024 4:00 AM CDT us Henry Palafox MD LABORATORY Final Result [facility] [address] [place] [address], [place] [phone] * (ABNORMAL) BASIC METABOLIC PANEL (08/26/2024 4:00 AM CDT) GLUCOSE 167(H) 70 - 99 MG/DL 08/26/2024 5:29 AM CDT [facility] BUN 17 7 - 18 MG/DL 08/26/2024 5:29 AM CDT [facility] CREATININE S/P/B 1.01 0.7 - 1.3 MG/DL 08/26/2024 5:29 AM CDT [facility] SODIUM S/P/B 138 136 - 145 MMOL/L 08/26/2024 5:29 AM CDT [facility] POTASSIUM S/P/B 3.6 3.5 - 5.1 MMOL/L 08/26/2024 5:29 AM CDT [facility] CHLORIDE S/P/B 105 97 - 115 MMOL/L 08/26/2024 5:29 AM CDT [facility] CO2 24.7 21 - 32 MMOL/L 08/26/2024 5:29 AM CDT [facility] CALCIUM S/P/B 8.5 8.5 - 10.1 MG/DL 08/26/2024 5:29 AM CDT [facility] ANION GAP 8.3 2 - 10 MMOL/L 08/26/2024 5:29 AM CDT [facility] BUN CREATININE RATIO 16.8 6 - 26 08/26/2024 5:29 AM CDT [facility] GFR ESTIMATE 77(L) >90 ML/MIN/1.7 3 M2 08/26/2024 5:29 AM CDT [facility] Comment: NOTE: eGFR is not calculated for patients <18 years of age or gender unknown. This is an estimated GFR calculation using the new CKD EPI creatinine equation without race and so does not require a correction factor for race. This estimated GFR should not be used for calculating drug doses. 08/26/2024 4:00 AM CDT Geoffrey Meier DO LABORATORY Final Result [facility] [address] [place] [address], * (ABNORMAL) POCT glucose (08/25/2024 11:14 PM CDT) GLUCOSE POC 173(H) 70 - 99 mg/dL 08/25/2024 11:23 PM CDT [facility] 08/25/2024 11:1 4 PM CDT us Perlita Beavers MD POCT ORDERABLES - DEVICE Final Result [facility] [address] [place] [address], [place] [phone] * (ABNORMAL) POCT glucose (08/25/2024 5:36 PM CDT) GLUCOSE POC 187(H) 70 - 99 mg/dL 08/25/2024 5:39 PM CDT [facility] 08/25/2024 5:36 PM CDT us Perlita Beavers MD POCT ORDERABLES - DEVICE Final Result Performing Organization Address City/[facility]/ZIP Co de Phone Number [facility] [address] [place] [address], [place] [phone] * (ABNORMAL) POCT glucose (08/25/2024 11:18 AM CDT) GLUCOSE POC 190(H) 70 - 99 mg/dL 08/25/2024 11:20 AM CDT [facility] 08/25/2024 11:1 8 AM CDT us Perlita Beavers MD POCT ORDERABLES - DEVICE Final Result [facility] [address] [place] [address], [place] [phone] * (ABNORMAL) POCT glucose (08/25/2024 6:33 AM CDT) GLUCOSE POC 175(H) 70 - 99 mg/dL 08/25/2024 7:18 AM CDT [facility] 08/25/2024 6:33 AM CDT Perlita Beavers MD POCT ORDERABLES - DEVICE Final Result [facility] [address] [place] [address], * (ABNORMAL) CBC W/DIFF AUTOMATED (08/25/2024 2:58 AM CDT) WBC 8.46 4.5 - 11.0 x10'3/uL 08/25/2024 3:22 AM CDT [facility] RBC 3.33(L) 4.70 - 6.10 x10'6/uL 08/25/2024 3:22 AM CDT [facility] HGB 9.6(L) 14.0 - 18.0 G/DL 08/25/2024 3:22 AM CDT [facility] HCT 30.2(L) 43.0 - 54.0 % 08/25/2024 3:22 AM CDT [facility] MCV 90.7 80.0 - 94.0 FL 08/25/2024 3:22 AM CDT [facility] MCH 28.8 27.0 - 31.0 PG 08/25/2024 3:22 AM CDT [facility] MCHC 31.8(L) 32.0 - 36.0 G/DL 08/25/2024 3:22 AM CDT [facility] RDW 15.7(H) 11.5 - 14.5 % 08/25/2024 3:22 AM CDT [facility] PLT 202 130 - 400 x10'3/uL 08/25/2024 3:22 AM CDT [facility] MPV 11.3 9.3 - 12.2 FL 08/25/2024 3:22 AM CDT [facility] DIFFERENTIAL TYPE AUTOMATED DIFFERENTIAL 08/25/2024 3:22 AM CDT [facility] NEUTROPHILS % 65.3 % 08/25/2024 3:22 AM CDT [facility] LYMPHOCYTES % 20.6 % 08/25/2024 3:22 AM CDT [facility] MONOCYTES % 12.4 % 08/25/2024 3:22 AM CDT [facility] EOSINOPHILS 0.8 % 08/25/2024 3:22 AM CDT [facility] BASOPHILS 0.5 % 08/25/2024 3:22 AM CDT [facility] IMMATURE GRANS % 0.4 % 08/26/19 3:22 AM CDT [facility] ABS. NEUTROPHILS 5.53 1.80 - 7.70 x10'3/uL 08/25/2024 3:22 AM CDT [facility] ABS. LYMPHOCYTES 1.74 1.00 - 4.80 x10'3/uL 08/25/2024 3:22 AM CDT [facility] ABS. MONOCYTES 1.05(H) 0.30 - 0.82 x10'3/uL 08/25/2024 3:22 AM CDT [facility] ABS. EOSINOPHILS 0.07 0.04 - 0.54 x10'3/uL 08/25/2024 3:22 AM CDT [facility] ABS. BASOPHILS 0.04 0.01 - 0.08 x10'3/uL 08/25/2024 3:22 AM CDT [facility] ABS. IMMATURE GRANULOCYTES 0.03 0.00 - 0.49 x10'3/uL 08/25/2024 3:22 AM CDT [facility] 08/25/2024 2:58 AM CDT us Henry Palafox MD LABORATORY Final Result [facility] [address] [place] [address], * (ABNORMAL) BASIC METABOLIC PANEL (08/25/2024 2:58 AM CDT) GLUCOSE 176(H) 70 - 99 MG/DL 08/25/2024 3:32 AM CDT [facility] BUN 20(H) 7 - 18 MG/DL 08/25/2024 3:32 AM CDT [facility] CREATININE S/P/B 1.22 0.7 - 1.3 MG/DL 08/25/2024 3:32 AM CDT [facility] SODIUM S/P/B 139 136 - 145 MMOL/L 08/25/2024 3:32 AM CDT [facility] POTASSIUM S/P/B 3.9 3.5 - 5.1 MMOL/L 08/25/2024 3:32 AM CDT [facility] CHLORIDE S/P/B 106 97 - 115 MMOL/L 08/25/2024 3:32 AM CDT [facility] CO2 26.3 21 - 32 MMOL/L 08/25/2024 3:32 AM CDT [facility] CALCIUM S/P/B 8.6 8.5 - 10.1 MG/DL 08/25/2024 3:32 AM CDT [facility] ANION GAP 6.7 2 - 10 MMOL/L 08/25/2024 3:32 AM CDT [facility] BUN CREATININE RATIO 16.4 6 - 26 08/25/2024 3:32 AM CDT [facility] GFR ESTIMATE 61(L) >90 ML/MIN/1.7 3 M2 08/25/2024 3:32 AM CDT [facility] Comment: NOTE: eGFR is not calculated for patients <18 years of age or gender unknown. This is an estimated GFR calculation using the new CKD EPI creatinine equation without race and so does not require a correction factor for race. This estimated GFR should not be used for calculating drug doses. 08/25/2024 2:58 AM CDT Geoffrey Meier DO LABORATORY Final Result [facility] [address] [place] [address], * XR CHEST PA OR AP 1V (08/24/2024 10:44 PM CDT) Anatomical Region Laterality Modality Chest Radiographic Lindy ging 08/25/2024 12:4 5 AM CDT Impressions 08/25/2024 12:53 AM CDT IMPRESSION: 1. Removal of previous feeding tube and placement of a new feeding tube with tip in the fundus or proximal body of stomach, several centimeters below the GE junction. 2. Small focal consolidative or nodular opacity in the left upper lobe, infectious/inflammatory or less likely neoplasm. Suggest follow-up PA and lateral chest x-ray with better patient positioning and technique for further evaluation.. 3. Mild focal atelectasis, infiltrate or scarring in the medial retrocardiac left lower lobe. Referred By: Interpreted By: Raven Watson MD, 08/25/2024 12:45 AM Narrative 08/25/2024 12:53 AM CDT [facility] [place] [address] EXAMINATION: XR Portable CXR, 1 View, 2 images, 08/24/2024 at 2224 hours. INDICATION: RE-evaluate [place] COMPARISON: Portable AP chest x-ray 08/24/2024 at 2118 hours. FINDINGS: Removal of previous feeding tube and placement of a new feeding tube with tip in the fundus or proximal body of stomach, several centimeters below the GE junction. panel monitor leads overlie the chest and abdomen. The cardiomediastinal silhouette is within normal limits. Pulmonary vascularity is normal. The left apex is not completely included on the exam related to positioning and technique. There is a small focal consolidative or nodular opacity in the left upper lobe, infectious/inflammatory or less likely neoplasm. There is mild focal atelectasis, infiltrate or scarring in the medial retrocardiac left lower lobe. There is mild prominence of interstitial markings centrally in both lungs, mild interstitial pulmonary edema versus chronic interstitial scarring. Stable calcified granuloma in the right lower lobe. No significant pleural effusion or pneumothorax. Osteopenia with no acute osseous abnormality. Procedure Note Raven Watson MD - 08/25/2024 [place] [address] EXAMINATION: XR Portable CXR, 1 View, 2 images, 08/24/2024 at 2224hours. INDICATION: RE-evaluate [place] COMPARISON: Portable AP chest x-ray 08/24/2024 at 2118 hours. FINDINGS: Removal of previous feeding tube and placement of a new feeding tube withtip in the fundus or proximal body of stomach, several centimeters belowthe GE junction. panel monitor leads overlie the chest and abdomen.The cardiomediastinal silhouette is within normal limits. Pulmonaryvascularity is normal. The left apex is not completely included on the exam related topositioning and technique. There is a small focal consolidative ornodular opacity in the left upper lobe, infectious/inflammatory or lesslikely neoplasm. There is mild focal atelectasis, infiltrate or scarringin the medial retrocardiac left lower lobe. There is mild prominence ofinterstitial markings centrally in both lungs, mild interstitial pulmonaryedema versus chronic interstitial scarring. Stable calcified granuloma inthe right lower lobe. No significant pleural effusion or pneumothorax.Osteopenia with no acute osseous abnormality. IMPRESSION: 1. Removal of previous feeding tube and placement of a new feeding tubewith tip in the fundus or proximal body of stomach, several centimetersbelow the GE junction. 2. Small focal consolidative or nodular opacity in the left upper lobe,infectious/inflammatory or less likely neoplasm. Suggest follow-up PA andlateral chest x-ray with better patient positioning and technique forfurther evaluation.. 3. Mild focal atelectasis, infiltrate or scarring in the medialretrocardiac left lower lobe. Referred By: Interpreted By: Raven Watson MD, 08/25/2024 12:45 AM us Henry Palafox MD GENERAL IMAGING Final Result * XR CHEST PORTABLE (08/24/2024 9:44 PM CDT) Anatomical Region Laterality Modality Chest Radiographic Lindy ging 08/24/2024 10:1 4 PM CDT Impressions 08/24/2024 10:20 PM CDT IMPRESSION: The enteric tube coils within the stomach and courses back up the esophagus. The distal tip of the tube terminates within the mid esophagus. Repositioning is required. Results were relayed to the ordering provider Henry Palafox M.D. via the clinical [employer] application at 10:19 PM on 08/24/2024. Results were acknowledged. Referred By: Interpreted By: Christina Buitrago MD, 08/24/2024 10:14 PM Narrative 08/24/2024 10:[address] [address] Examination: XR CHEST PORTABLE Exam time: 08/24/2024 9:26 PM Clinical history: DOBHOFF PLACEMENT Comparison: Radiograph August 17, 2024. Technique: AP image of the chest. Findings: Interval placement of an enteric tube, which coils within the stomach and courses back up the esophagus. The distal tip of the tube terminates within the mid esophagus. Repositioning is required. The heart is unchanged in size. Scattered atelectatic changes are noted bilaterally. Multiple surgically fixated right ribs are identified. Procedure Note Christina Buitrago MD - 08/24/[address] [address] Examination: XR CHEST PORTABLE Exam time: 08/24/2024 9:26 PM Clinical history: DOBHOFF PLACEMENT Comparison: Radiograph August 17, 2024. Technique: AP image of the chest. Findings: Interval placement of an enteric tube, which coils within the stomach andcourses back up the esophagus. The distal tip of the tube terminateswithin the mid esophagus. Repositioning is required. The heart is unchanged in size. Scattered atelectatic changes are notedbilaterally. Multiple surgically fixated right ribs are identified. IMPRESSION: The enteric tube coils within the stomach and courses back up theesophagus. The distal tip of the tube terminates within the mid esophagus.Repositioning is required. Results were relayed to the ordering provider Henry Palafox M.D. via [employer] application at 10:19 PM on 08/24/2024.Results were acknowledged. Referred By: Interpreted By: Christina Buitrago MD, 08/24/2024 10:14 PM Henry Palafox MD GENERAL IMAGING Final Result * (ABNORMAL) POCT glucose (08/24/2024 9:37 PM CDT) GLUCOSE POC 161(H) 70 - 99 mg/dL 08/24/2024 10:28 PM CDT [facility] 08/24/2024 9:37 PM CDT Perlita Beavers MD POCT ORDERABLES - DEVICE Final Result Performing Organization Address [facility] [[email or web address]] Co de Phone Number [facility] [address] [place] [address], [place] [phone] * (ABNORMAL) POCT glucose (08/24/2024 4:47 PM CDT) GLUCOSE POC 194(H) 70 - 99 mg/dL 08/24/2024 4:48 PM CDT [facility] 08/24/2024 4:47 PM CDT us Perlita Beavers MD POCT ORDERABLES - DEVICE Final Result Performing Organization Address [facility] [[email or web address]] Co de Phone Number [facility] [address] [place] [address], [place] [phone] * (ABNORMAL) POCT glucose (08/24/2024 11:44 AM CDT) GLUCOSE POC 220(H) 70 - 99 mg/dL 08/24/2024 11:45 AM CDT [facility] 08/24/2024 11:4 4 AM CDT us Perlita Beavers MD POCT ORDERABLES - DEVICE Final Result Performing Organization Address [facility] [[email or web address]] Co de Phone Number [facility] [address] [place] [address], [place] [phone] * (ABNORMAL) CBC W/DIFF AUTOMATED (08/24/2024 4:00 AM CDT) WBC 13.52(H) 4.5 - 11.0 x10'3/uL 08/24/2024 5:28 AM CDT [facility] RBC 3.55(L) 4.70 - 6.10 x10'6/uL 08/24/2024 5:28 AM CDT [facility] HGB 9.9(L) 14.0 - 18.0 G/DL 08/24/2024 5:28 AM CDT [facility] HCT 31.5(L) 43.0 - 54.0 % 08/24/2024 5:28 AM CDT [facility] MCV 88.7 80.0 - 94.0 FL 08/24/2024 5:28 AM CDT [facility] MCH 27.9 27.0 - 31.0 PG 08/24/2024 5:28 AM CDT [facility] MCHC 31.4(L) 32.0 - 36.0 G/DL 08/24/2024 5:28 AM CDT [facility] RDW 15.3(H) 11.5 - 14.5 % 08/24/2024 5:28 AM CDT [facility] PLT 254 130 - 400 x10'3/uL 08/24/2024 5:28 AM CDT [facility] MPV 11.8 9.3 - 12.2 FL 08/24/2024 5:28 AM CDT [facility] DIFFERENTIAL TYPE AUTOMATED DIFFERENTIAL 08/24/2024 5:29 AM CDT [facility] NEUTROPHILS % 72.7 % 08/24/2024 5:29 AM CDT [facility] LYMPHOCYTES % 17.8 % 08/24/2024 5:29 AM CDT [facility] MONOCYTES % 8.6 % 08/24/2024 5:29 AM CDT [facility] EOSINOPHILS 0.1 % 08/24/2024 5:29 AM CDT [facility] BASOPHILS 0.4 % 08/24/2024 5:29 AM CDT [facility] IMMATURE GRANS % 0.4 % 08/25/19 5:29 AM CDT [facility] ABS. NEUTROPHILS 9.83(H) 1.80 - 7.70 x10'3/uL 08/24/2024 5:29 AM CDT [facility] ABS. LYMPHOCYTES 2.41 1.00 - 4.80 x10'3/uL 08/24/2024 5:29 AM CDT [facility] ABS. MONOCYTES 1.16(H) 0.30 - 0.82 x10'3/uL 08/24/2024 5:29 AM CDT [facility] ABS. EOSINOPHILS 0.01(L) 0.04 - 0.54 x10'3/uL 08/24/2024 5:29 AM CDT [facility] ABS. BASOPHILS 0.05 0.01 - 0.08 x10'3/uL 08/24/2024 5:29 AM CDT [facility] ABS. IMMATURE GRANULOCYTES 0.06 0.00 - 0.49 x10'3/uL 08/24/2024 5:29 AM CDT [facility] RBC MORPHOLOGY RBC MORPHOLOGY APPEARS NORMAL. SLIDE REVIEWED. 08/24/2024 5:29 AM CDT [facility] PLT EST. ADEQUATE 08/24/2024 5:29 AM CDT [facility] 08/24/2024 4:00 AM CDT Jeanmarie Padgett MD LABORATORY Final Result [facility] [address] [place] [address], [place] [phone] * (ABNORMAL) BASIC METABOLIC PANEL (08/24/2024 4:00 AM CDT) [facility] GLUCOSE 261(H) 70 - 99 MG/DL 08/24/2024 5:02 AM T [facility] BUN 23(H) 7 - 18 MG/DL 08/24/2024 5:02 AM [facility] CREATININE S/P/B 1.27 0.7 - 1.3 MG/DL 08/24/2024 5:02 AM T [facility] SODIUM S/P/B 139 136 - 145 MMOL/L 08/24/2024 5:02 AM [facility] POTASSIUM S/P/B 4.4 3.5 - 5.1 MMOL/L 08/24/2024 5:02 AM [facility] CHLORIDE S/P/B 108 97 - 115 MMOL/L 08/24/2024 5:02 AM [facility] CO2 22.6 21 - 32 MMOL/L 08/24/2024 5:02 AM [facility] CALCIUM S/P/B 8.1(L) 8.5 - 10.1 MG/DL 08/24/2024 5:02 AM [facility] ANION GAP 8.4 2 - 10 MMOL/L 08/24/2024 5:02 AM [facility] BUN CREATININE RATIO 18.1 6 - 26 08/24/2024 5:02 AM [facility] GFR ESTIMATE 59(L) >90 ML/MIN/1.7 3 M2 08/24/2024 5:02 AM [facility] Comment: NOTE: eGFR is not calculated for patients <18 years of age or gender unknown. This is an estimated GFR calculation using the new CKD EPI creatinine equation without race and so does not require a correction factor for race. This estimated GFR should not be used for calculating drug doses. 08/24/2024 4:00 AM CDT Jeanmarie Padgett MD LABORATORY Final Result [facility] [address] [place] [address], [place] [phone] * (ABNORMAL) POCT glucose (08/23/2024 7:46 PM CDT) [facility] GLUCOSE POC 262(H) 70 - 99 mg/dL 08/23/2024 7:47 PM CDT [facility] 08/23/2024 7:46 PM CDT Perlita Beavers MD POCT ORDERABLES - DEVICE Final Result Performing Organization Address City/[facility]/ZIP Co de Phone Number [facility] [address] [place] [address], [place] [phone] * (ABNORMAL) CBC W/DIFF AUTOMATED (08/23/2024 6:48 PM CDT) [facility] WBC 8.49 4.5 - 11.0 x10'3/uL 08/23/2024 7:25 PM CDT [facility] RBC 3.59(L) 4.70 - 6.10 x10'6/uL 08/23/2024 7:25 PM CDT [facility] HGB 10.2(L) 14.0 - 18.0 G/DL 08/23/2024 7:25 PM CDT [facility] HCT 32.4(L) 43.0 - 54.0 % 08/23/2024 7:25 PM CDT [facility] MCV 90.3 80.0 - 94.0 FL 08/23/2024 7:25 PM CDT [facility] MCH 28.4 27.0 - 31.0 PG 08/23/2024 7:25 PM CDT [facility] MCHC 31.5(L) 32.0 - 36.0 G/DL 08/23/2024 7:25 PM CDT [facility] RDW 15.0(H) 11.5 - 14.5 % 08/23/2024 7:25 PM CDT [facility] PLT 168 130 - 400 x10'3/uL 08/23/2024 7:25 PM CDT [facility] MPV 12.6(H) 9.3 - 12.2 FL 08/23/2024 7:25 PM CDT [facility] DIFFERENTIAL TYPE AUTOMATED DIFFERENTIAL 08/23/2024 7:25 PM CDT [facility] NEUTROPHILS % 85.7 % 08/23/2024 7:25 PM CDT [facility] LYMPHOCYTES % 11.2 % 08/23/2024 7:25 PM CDT [facility] MONOCYTES % 1.3 % 08/23/2024 7:25 PM CDT [facility] EOSINOPHILS 0.7 % 08/23/2024 7:25 PM CDT [facility] BASOPHILS 0.5 % 08/23/2024 7:25 PM CDT [facility] IMMATURE GRANS % 0.6 % 08/24/19 7:25 PM CDT [facility] ABS. NEUTROPHILS 7.28 1.80 - 7.70 x10'3/uL 08/23/2024 7:25 PM CDT [facility] ABS. LYMPHOCYTES 0.95(L) 1.00 - 4.80 x10'3/uL 08/23/2024 7:25 PM CDT [facility] ABS. MONOCYTES 0.11(L) 0.30 - 0.82 x10'3/uL 08/23/2024 7:25 PM CDT [facility] ABS. EOSINOPHILS 0.06 0.04 - 0.54 x10'3/uL 08/23/2024 7:25 PM CDT [facility] ABS. BASOPHILS 0.04 0.01 - 0.08 x10'3/uL 08/23/2024 7:25 PM CDT [facility] ABS. IMMATURE GRANULOCYTES 0.05 0.00 - 0.49 x10'3/uL 08/23/2024 7:25 PM CDT [facility] 08/23/2024 6:48 PM CDT us Jeanmarie Padgett MD LABORATORY Final Result Performing Organization Address City/State/[facility] [[email or web address]] Co de Phone Number [facility] [address] [place] [address], [place] [phone] * USV GD INTRAOPERATIVE (08/23/2024 5:12 PM CDT) Anatomical Region Laterality Modality Undefined Vascular Ultraso und 08/23/2024 4:32 PM CDT Narrative 08/25/2024 3:03 PM CDT [facility] Pat.Name: RAMÍREZ FERNANDO Pat.ID: [id number] .Date: 08/23/2024 Exam Time: 4:32:00 PM Study Type:KIKE VS Intraoperative Height: 64 in Age: 9 1950,74Y Sex: M Sonogrphr: Mu Cervantes RVT Pat. Stat.:Inpatient Room: OR 8 History / [...] arteries. <Electronic Signature> 08/25/2024 03:03 PM Jeanmarie Padgett M.D. Procedure Note Jeanmarie Padgett MD - 08/25/2024 INTRAOPERATIVE [facility] Pat.Name: RAMÍREZ FERNANDO Pat.ID: [id number] .Date: 08/23/2024 Exam Time: 4:32:00 PM Study Type:KIKE VS Intraoperative Height: 64 in Age: 9 1950,74Y Sex: M Sonogrphr: Mu Cervantes RVT Pat. Stat.:Inpatient Room: OR History / Clinical:intraoperative scan right carotid endarterectomy [...] arteries. <Electronic Signature> 08/25/2024 03:03 PM Jeanmarie Padgett M.D. Jeanmarie Padgett MD [facility] Final Result * HEPARIN, ANTI XA, UFH (08/23/2024 12:15 PM CDT) [facility] HEPARIN ANTI XA UFH 0.63 0.30 - 0.70 IU/ML 08/23/2024 12:54 PM CDT [facility] Comment: UFH Therapeutic Anti Xa Ranges: Medical Therapeutic Range: 0.30 - 0.70 IU/mL Cardiac Therapeutic Range: 0.30 - 0.50 IU/mL Neuro Therapeutic Range: 0.20 - 0.40 IU/mL 08/23/2024 12:1 5 PM CDT Perlita Beavers MD LABORATORY Final Res ult [facility] [address] [place] [address], * ECG 12 lead (08/23/2024 10:02 AM CDT) 08/23/2024 10:0 2 AM CDT Narrative [facility] ([facility] - 08/23/2024 7:[address] PM [address]T [address] Test Date: 2024-08-23 Pat Name: RAMÍREZ FERNANDO Department: 40 Room: [facility] Gender: Male Insight Director: : 1950 Requested By: UM TAI Order Number: [id number] Reading MD: Abundio Singh Measurements Intervals [place] Rate: 82 P: 50 MO: 164 QRS: 11 QRSD: 142 T: 116 QT: 408 QTc: 479 Interpretive Statements SINUS RHYTHM LEFT BUNDLE BRANCH BLOCK [120+ ms QRS DURATION, 80+ ms Q/S IN V1/V2, 85+ ms R IN I/aVL/V5/V6] Compared to ECG 08/22/2024 16:09:50 Left bundle-branch block now present T-wave abnormality no longer present Possible ischemia no longer present Procedure Note Abundio Singh MD - 08/23/[address] Test Date: 2024-08-23 Pat Name: RAMÍREZ FERNANDO Department: 40 Room: A209 Gender: Male Insight Director: : 1950 Requested By: MU TAI Order Number: [id number] Reading MD: Abundio Singh Measurements Intervals [place] Rate: 82 P: 50 MO: 164 QRS: 11 QRSD: 142 T: 116 QT: 408 QTc: 479 Interpretive Statements SINUS RHYTHM LEFT BUNDLE BRANCH BLOCK [120+ ms QRS DURATION, 80+ ms Q/S IN V1/V2, 85+ms R IN I/aVL/V5/V6] Compared to ECG 08/22/2024 16:09:50 Left bundle-branch block now present T-wave abnormality no longer present Possible ischemia no longer present us Mu Tai MD ECG ORDERABLES Final Result Performing Organization Address City/[facility]/ZIP Co de Phone Number [facility] * TROPONIN, QUANT (08/23/2024 4:00 AM CDT) TROPONIN I HIGH SENSITIVITY 50 <79 ng/L 08/23/2024 9:56 AM CDT [facility] Comment: HIGH DOSES OF BIOTIN, TROPONIN-SPECIFIC AUTOANTIBODIES, AND ANTIBODY THERAPY CONTAINING HAMA MAY INTERFERE WITH THIS TEST RESULT. CORRELATION TO CLINICAL HISTORY AND PRESENTATION RECOMMENDED. 08/23/2024 4:00 AM CDT us Julio Donis MD LABORATORY F inal Result [facility] [address] [place] [address], [place] [phone] * (ABNORMAL) BASIC METABOLIC PANEL (08/23/2024 4:00 AM CDT) GLUCOSE 238(H) 70 - 99 MG/DL 08/23/2024 5:32 AM CDT [facility] BUN 28(H) 7 - 18 MG/DL 08/23/2024 5:32 AM CDT [facility] CREATININE S/P/B 1.13 0.7 - 1.3 MG/DL 08/23/2024 5:32 AM CDT [facility] SODIUM S/P/B 138 136 - 145 MMOL/L 08/23/2024 5:32 AM CDT [facility] POTASSIUM S/P/B 3.9 3.5 - 5.1 MMOL/L 08/23/2024 5:32 AM CDT [facility] CHLORIDE S/P/B 106 97 - 115 MMOL/L 08/23/2024 5:32 AM CDT [facility] CO2 26.3 21 - 32 MMOL/L 08/23/2024 5:32 AM CDT [facility] CALCIUM S/P/B 8.3(L) 8.5 - 10.1 MG/DL 08/23/2024 5:32 AM T [facility] ANION GAP 5.7 2 - 10 MMOL/L 08/23/2024 5:32 AM CDT [facility] BUN CREATININE RATIO 24.8 6 - 26 08/23/2024 5:32 AM T [facility] GFR ESTIMATE 67(L) >90 ML/MIN/1.7 3 M2 08/23/2024 5:32 AM T [facility] Comment: NOTE: eGFR is not calculated for patients <18 years of age or gender unknown. This is an estimated GFR calculation using the new CKD EPI creatinine equation without race and so does not require a correction factor for race. This estimated GFR should not be used for calculating drug doses. 08/23/2024 4:0 0 AM CDT Jeanmarie Padgett MD LABORATORY Final Result [facility] [address] [place] [address], * (ABNORMAL) HEPARIN, ANTI XA, UFH (08/23/2024 4:00 AM CDT) HEPARIN ANTI XA UFH 0.75(H) 0.30 - 0.70 IU/ML 08/23/2024 5:36 AM CDT [facility] Comment: UFH Therapeutic Anti Xa Ranges: Medical Therapeutic Range: 0.30 - 0.70 IU/mL Cardiac Therapeutic Range: 0.30 - 0.50 IU/mL Neuro Therapeutic Range: 0.20 - 0.40 IU/mL 08/23/2024 4:00 AM CDT Christiano Betancourt MD LABORATORY Final Result Performing Organization Address [facility] [[email or web address]] Co de Phone Number [facility] [address] [place] [address], * (ABNORMAL) CBC W/DIFF AUTOMATED (08/23/2024 4:00 AM CDT) WBC 10.02 4.5 - 11.0 x10'3/uL 08/23/2024 5:24 AM CDT [facility] RBC 4.05(L) 4.70 - 6.10 x10'6/uL 08/23/2024 5:24 AM CDT [facility] HGB 11.4(L) 14.0 - 18.0 G/DL 08/23/2024 5:24 AM CDT [facility] HCT 36.2(L) 43.0 - 54.0 % 08/23/2024 5:24 AM CDT [facility] MCV 89.4 80.0 - 94.0 FL 08/23/2024 5:24 AM CDT [facility] MCH 28.1 27.0 - 31.0 PG 08/23/2024 5:24 AM CDT [facility] MCHC 31.5(L) 32.0 - 36.0 G/DL 08/23/2024 5:24 AM CDT [facility] RDW 15.3(H) 11.5 - 14.5 % 08/23/2024 5:24 AM CDT [facility] PLT 227 130 - 400 x10'3/uL 08/23/2024 5:24 AM CDT [facility] MPV 11.6 9.3 - 12.2 FL 08/23/2024 5:24 AM CDT [facility] DIFFERENTIAL TYPE AUTOMATED DIFFERENTIAL 08/23/2024 5:24 AM CDT [facility] NEUTROPHILS % 62.3 % 08/23/2024 5:24 AM CDT [facility] LYMPHOCYTES % 25.7 % 08/23/2024 5:24 AM CDT [facility] MONOCYTES % 7.5 % 08/23/2024 5:24 AM CDT [facility] EOSINOPHILS 3.3 % 08/23/2024 5:24 AM CDT [facility] BASOPHILS 0.9 % 08/23/2024 5:24 AM CDT [facility] IMMATURE GRANS % 0.3 % 08/24/19 5:24 AM CDT [facility] ABS. NEUTROPHILS 6.24 1.80 - 7.70 x10'3/uL 08/23/2024 5:24 AM CDT [facility] ABS. LYMPHOCYTES 2.58 1.00 - 4.80 x10'3/uL 08/23/2024 5:24 AM CDT [facility] ABS. MONOCYTES 0.75 0.30 - 0.82 x10'3/uL 08/23/2024 5:24 AM CDT [facility] ABS. EOSINOPHILS 0.33 0.04 - 0.54 x10'3/uL 08/23/2024 5:24 AM CDT [facility] ABS. BASOPHILS 0.09(H) 0.01 - 0.08 x10'3/uL 08/23/2024 5:24 AM CDT [facility] ABS. IMMATURE GRANULOCYTES 0.03 0.00 - 0.49 x10'3/uL 08/23/2024 5:24 AM CDT [facility] 08/23/2024 4:00 AM CDT Christiano Betancourt MD LABORATORY Final Result [facility] [address] [place] [address], * Pathology (08/23/2024 12:00 AM CDT) PATHOLOGY [facility] Department of Laboratory Medicine [address] [place] [address] , extension [phone] Pathology Report Surgical Pathology Report Name: RAMÍREZ FERNANDO Specimen #: [id number] Age: 9 1950 (Age: 74) Location: [facility] Sex: M Procedure Date: 08/23/2024 Hospital #: [id number] Date Received: 08/26/2024 Date Reported: 08/27/2024 Provider: JEANMARIE GARZA MD Source: Artery, right carotid, plaque Clinical History: Right carotid artery stenosis FINAL DIAGNOSIS: Right carotid artery, endarterectomy: -Severe calcific atherosclerosis. Gross Description: Received in formalin, labeled with a patient's label and right carotid plaque , is a 3.1 x 1.3 x 0.6 cm portion of yellow-haney firm tissue. Sections reveal yellow-haney calcified cut surfaces. There are no grossly identifiable masses or lesions. Systems Software Developer sections are submitted after decal in cassette 1. Gross examination (when applicable), interpretation, and sign out were performed at [facility], [address] [place] [address], [place] [address]. Electronically Signed Out YEMI THOMPSON MD [facility] TISSUE (OTHER (type in comments)) 08/23/2024 4:15 PM CDT Jeanmarie Padgett MD PATHOLOGY/CYTOLOGY ORDERABLES Fi nal Result [facility] [address] [place] [address], [place] [phone] [id number] * (ABNORMAL) POCT glucose (08/22/2024 11:23 PM CDT) GLUCOSE POC 187(H) 70 - 99 mg/dL 08/22/2024 11:36 PM CDT [facility] 08/22/2024 11:2 3 PM CDT Christiano Betancourt MD POCT ORDERABLES - DEVICE Final Result [facility] [address] [place] [address], [place] [phone] * (ABNORMAL) POCT glucose (08/22/2024 7:55 PM CDT) GLUCOSE POC 159(H) 70 - 99 mg/dL 08/22/2024 7:56 PM CDT [facility] 08/22/2024 7:55 PM CDT us Christiano Betancourt MD POCT ORDERABLES - DEVICE Final Result [facility] [address] [place] [address], * (ABNORMAL) POCT glucose (08/22/2024 5:25 PM CDT) GLUCOSE POC 282(H) 70 - 99 mg/dL 08/22/2024 5:29 PM CDT [facility] 08/22/2024 5:25 PM CDT Christiano Betancourt MD POCT ORDERABLES - DEVICE Final Result Performing Organization Address [facility] [[email or web address]] Co de Phone Number [facility] [address] [place] [address], * TROPONIN, QUANT (08/22/2024 4:13 PM CDT) TROPONIN I HIGH SENSITIVITY 37 <79 ng/L 08/22/2024 4:52 PM CDT [facility] Comment: HIGH DOSES OF BIOTIN, TROPONIN-SPECIFIC AUTOANTIBODIES, AND ANTIBODY THERAPY CONTAINING HAMA MAY INTERFERE WITH THIS TEST RESULT. CORRELATION TO CLINICAL HISTORY AND PRESENTATION RECOMMENDED. 08/22/2024 4:13 PM CDT Jose Luis Lozano MD LABORATORY Final Result Performing Organization Address City/[facility]/ZIP Co de Phone Number [facility] [address] [place] [address], * ECG 12 lead (08/22/2024 4:09 PM CDT) 08/22/2024 4:09 PM CDT Narrative [facility] ([facility] - 08/23/2024 5:50 AM CDT GoodrichDee Yeung [address] [place] [address] Test Date: 2024-08-22 Pat Name: RAMÍREZ FERNANDO Department: 40 Room: [id number] Gender: Male Insight Director: : 1950 Requested By: CHRISTIANO BETANCOURT Order Number: [id number] Reading MD: Adal Pierson Measurements Intervals [place] Rate: 77 P: 25 MO: 181 QRS: 10 QRSD: 91 T: 140 QT: 397 QTc: 450 Interpretive Statements SINUS RHYTHM MODERATE T-WAVE ABNORMALITY, CONSIDER ANTEROLATERAL ISCHEMIA [-0.1+ mV T-WAVE IN V3-V6] Compared to ECG 08/21/2024 08:07:31 No significant changes Procedure Note Adal Pierson MD - 08/23/2024 [facility] [address] Test Date: 2024-08-22 Pat Name: RAMÍREZ FERNANDO Department: 40 Room: [id number] Gender: Male Insight Director: : 1950 Requested By: CHRISTIANO BETANCOURT Order Number: [id number] Reading MDSherif Pierson Measurements Intervals [place] Rate: 77 P: 25 MO: 181 QRS: 10 QRSD: 91 T: 140 QT: 397 QTc: 450 Interpretive Statements SINUS RHYTHM MODERATE T-WAVE ABNORMALITY, CONSIDER ANTEROLATERAL ISCHEMIA [-0.1+ mV T-WAVE IN V3-V6] Compared to ECG 08/21/2024 08:07:31 No significant changes us Christiano Betancourt MD ECG ORDERABLES Final Result [facility] ([facility] * (ABNORMAL) POCT glucose (08/22/2024 11:15 AM CDT) GLUCOSE POC 289(H) 70 - 99 mg/dL 08/22/2024 11:17 AM CDT [facility] 08/22/2024 11:1 5 AM CDT us Christiano Betancourt MD POCT ORDERABLES - DEVICE Final Result [facility] [address] [place] [id number], [place] [phone] * (ABNORMAL) POCT glucose (08/22/2024 5:29 AM CDT) GLUCOSE POC 264(H) 70 - 99 mg/dL 08/22/2024 5:38 AM CDT [facility] 08/22/2024 5:29 AM CDT Christiano Betancourt MD POCT ORDERABLES - DEVICE Final Result Performing Organization Address City/[facility] [[email or web address]] Co de Phone Number [facility] [address] [place] [address], [place] [phone] * HEPARIN, ANTI XA, UFH (08/22/2024 4:19 AM CDT) HEPARIN ANTI XA UFH 0.65 0.30 - 0.70 IU/ML 08/22/2024 5:18 AM CDT [facility] Comment: UFH Therapeutic Anti Xa Ranges: Medical Therapeutic Range: 0.30 - 0.70 IU/mL Cardiac Therapeutic Range: 0.30 - 0.50 IU/mL Neuro Therapeutic Range: 0.20 - 0.40 IU/mL 08/22/2024 4:19 AM CDT us Christiano Betancourt MD LABORATORY Final Result [facility] [address] [place] [address], * (ABNORMAL) CBC W/DIFF AUTOMATED (08/22/2024 4:19 AM CDT) [facility] Signature WBC 7.68 4.5 - 11.0 x10'3/uL 08/22/2024 4:41 AM CDT [facility] RBC 4.27(L) 4.70 - 6.10 x10'6/uL 08/22/2024 4:41 AM CDT [facility] HGB 11.9(L) 14.0 - 18.0 G/DL 08/22/2024 4:41 AM CDT [facility] HCT 37.8(L) 43.0 - 54.0 % 08/22/2024 4:41 AM CDT [facility] MCV 88.5 80.0 - 94.0 FL 08/22/2024 4:41 AM CDT [facility] MCH 27.9 27.0 - 31.0 PG 08/22/2024 4:41 AM CDT [facility] MCHC 31.5(L) 32.0 - 36.0 G/DL 08/22/2024 4:41 AM CDT [facility] RDW 15.4(H) 11.5 - 14.5 % 08/22/2024 4:41 AM CDT [facility] PLT 243 130 - 400 x10'3/uL 08/22/2024 4:41 AM CDT [facility] MPV 11.5 9.3 - 12.2 FL 08/22/2024 4:41 AM CDT [facility] DIFFERENTIAL TYPE AUTOMATED DIFFERENTIAL 08/22/2024 4:41 AM CDT [facility] NEUTROPHILS % 56.5 % 08/22/2024 4:41 AM CDT [facility] LYMPHOCYTES % 30.7 % 08/22/2024 4:41 AM CDT [facility] MONOCYTES % 7.7 % 08/22/2024 4:41 AM CDT [facility] EOSINOPHILS 3.8 % 08/22/2024 4:41 AM CDT [facility] BASOPHILS 1.0 % 08/22/2024 4:41 AM CDT [facility] IMMATURE GRANS % 0.3 % 08/23/19 4:41 AM CDT [facility] ABS. NEUTROPHILS 4.34 1.80 - 7.70 x10'3/uL 08/22/2024 4:41 AM CDT [facility] ABS. LYMPHOCYTES 2.36 1.00 - 4.80 x10'3/uL 08/22/2024 4:41 AM CDT [facility] ABS. MONOCYTES 0.59 0.30 - 0.82 x10'3/uL 08/22/2024 4:41 AM CDT [facility] ABS. EOSINOPHILS 0.29 0.04 - 0.54 x10'3/uL 08/22/2024 4:41 AM CDT [facility] ABS. BASOPHILS 0.08 0.01 - 0.08 x10'3/uL 08/22/2024 4:41 AM CDT [facility] ABS. IMMATURE GRANULOCYTES 0.02 0.00 - 0.49 x10'3/uL 08/22/2024 4:41 AM CDT [facility] 08/22/2024 4:19 AM CDT us Christiano Betancourt MD LABORATORY Final Result [facility] [address] [place] [address], [place] [phone] * (ABNORMAL) BASIC METABOLIC PANEL (08/22/2024 4:19 AM CDT) [facility] GLUCOSE 258(H) 70 - 99 MG/DL 08/22/2024 4:58 AM CDT [facility] BUN 24(H) 7 - 18 MG/DL 08/22/2024 4:58 AM CDT [facility] CREATININE S/P/B 1.16 0.7 - 1.3 MG/DL 08/22/2024 4:58 AM CDT [facility] SODIUM S/P/B 137 136 - 145 MMOL/L 08/22/2024 4:58 AM CDT [facility] POTASSIUM S/P/B 3.6 3.5 - 5.1 MMOL/L 08/22/2024 4:58 AM CDT [facility] CHLORIDE S/P/B 105 97 - 115 MMOL/L 08/22/2024 4:58 AM CDT [facility] CO2 26.7 21 - 32 MMOL/L 08/22/2024 4:58 AM CDT [facility] CALCIUM S/P/B 8.2(L) 8.5 - 10.1 MG/DL 08/22/2024 4:58 AM CDT [facility] ANION GAP 5.3 2 - 10 MMOL/L 08/22/2024 4:58 AM CDT [facility] BUN CREATININE RATIO 20.7 6 - 26 08/22/2024 4:58 AM CDT [facility] GFR ESTIMATE 65(L) >90 ML/MIN/1.7 3 M2 08/22/2024 4:58 AM CDT [facility] Comment: NOTE: eGFR is not calculated for patients <18 years of age or gender unknown. This is an estimated GFR calculation using the new CKD EPI creatinine equation without race and so does not require a correction factor for race. This estimated GFR should not be used for calculating drug doses. 08/22/2024 4:19 AM CDT Christiano Betancourt MD LABORATORY Final Result Performing Organization Address City/[facility] [[email or web address]] Co de Phone Number [facility] [address] [place] [address], * HEPARIN, ANTI XA, UFH (08/22/2024 1:17 AM CDT) HEPARIN ANTI XA UFH 0.64 0.30 - 0.70 IU/ML 08/22/2024 1:51 AM CDT [facility] Comment: UFH Therapeutic Anti Xa Ranges: Medical Therapeutic Range: 0.30 - 0.70 IU/mL Cardiac Therapeutic Range: 0.30 - 0.50 IU/mL Neuro Therapeutic Range: 0.20 - 0.40 IU/mL 08/22/2024 1:17 AM CDT Henry Palafox MD LABORATORY Final Result Performing Organization Address [facility] [[email or web address]] Co de Phone Number [facility] [address] [place] [address], * (ABNORMAL) POCT glucose (08/21/2024 11:14 PM CDT) GLUCOSE POC 180(H) 70 - 99 mg/dL 08/22/2024 5:14 AM CDT [facility] 08/21/2024 11:1 4 PM CDT us Christiano Betancourt MD POCT ORDERABLES - DEVICE Final Result Performing Organization Address [facility]/ZIP Co de Phone Number [facility] [address] [place] [address], [place] [phone] * (ABNORMAL) POCT glucose (08/21/2024 8:09 PM CDT) GLUCOSE POC 232(H) 70 - 99 mg/dL 08/21/2024 9:24 PM CDT [facility] 08/21/2024 8:09 PM CDT Christiano Betancourt MD POCT ORDERABLES - DEVICE Final Result Performing Organization Address [facility] [[email or web address]] Co de Phone Number [facility] [address] [place] [address], [place] [phone] * HEPARIN, ANTI XA, UFH (08/21/2024 6:46 PM CDT) HEPARIN ANTI XA UFH 0.57 0.30 - 0.70 IU/ML 08/21/2024 7:08 PM CDT [facility] Comment: UFH Therapeutic Anti Xa Ranges: Medical Therapeutic Range: 0.30 - 0.70 IU/mL Cardiac Therapeutic Range: 0.30 - 0.50 IU/mL Neuro Therapeutic Range: 0.20 - 0.40 IU/mL 08/21/2024 6:46 PM CDT us Christiano Betancourt MD LABORATORY Final Result Performing Organization Address City/[facility]/ZIP Co de Phone Number [facility] [address] [place] [address], [place] [phone] * (ABNORMAL) POCT glucose (08/21/2024 4:32 PM CDT) GLUCOSE POC 230(H) 70 - 99 mg/dL 08/21/2024 6:23 PM CDT [facility] 08/21/2024 4:32 PM CDT us Christiano Betancourt MD POCT ORDERABLES - DEVICE Final Result Performing Organization Address City/[facility]/ZIP Co de Phone Number [facility] [address] [place] [address], [place] [phone] * (ABNORMAL) POCT glucose (08/21/2024 12:47 PM CDT) GLUCOSE POC 196(H) 70 - 99 mg/dL 08/21/2024 1:00 PM CDT [facility] 08/21/2024 12:4 7 PM CDT us Christiano Betancourt MD POCT ORDERABLES - DEVICE Final Result Performing Organization Address [facility] de Phone Number [facility] [address] [place] [address], [place] [phone] * (ABNORMAL) HEPARIN, ANTI XA, UFH (08/21/2024 11:30 AM CDT) HEPARIN ANTI XA UFH 0.71(H) 0.30 - 0.70 IU/ML 08/21/2024 12:36 PM CDT [facility] Comment: UFH Therapeutic Anti Xa Ranges: Medical Therapeutic Range: 0.30 - 0.70 IU/mL Cardiac Therapeutic Range: 0.30 - 0.50 IU/mL Neuro Therapeutic Range: 0.20 - 0.40 IU/mL 08/21/2024 11:3 0 AM CDT us Christiano Betancourt MD LABORATORY Final Result Performing Organization Address City/[facility]/ZIP Co de Phone Number [facility] [address] [place] [address], * CTA HEART W 3D IMAGING (08/21/2024 9:28 AM CDT) Anatomical Region Laterality Modality Cardiac Computed Tomogra phy 08/26/2024 1:48 PM CDT Addenda Addendum by Maryuri Casiano MD on 08/28/2024 4:55 AM CDT Table formatting from the original result was not included. CT ANGIOGRAM (Cardiology Portion) Patient Name: Ramírez Fernando : 1950 Date of Study: 08-21-2024 Interpreting Chairman President And Chief Executive Officer: MARYURI CASIANO M.D. Indication: Rule out thrombus ADDITIONAL NON-CARDIAC STRUCTURES AND LUNGS READ BY RADIOLOGY COLLEAGUES. IMPRESSION No left atrial appendage thrombus. Extensive coronary artery calcification. No significant ascending aortic calcification. Mild aortic arch calcification. Interpreting Chairman President And Chief Executive Officer: MARYURI CASIANO M.D. 08/26/24 Narrative 08/26/2024 11:42 AM CDT [facility] [address] [place], [place] [address] EXAMINATION: CARDIAC COMPUTED TOMOGRAPHY ANGIOGRAM, ROUTINE CORONARY [...] ANGIOGRAM AND OTHER CARDIAC FINDINGS: Interpreted by soils engineer. EXTRACARDIAC FINDINGS: Expiration images chest. Dependent atelectasis. No suspicious mass or consolidation in the visualized lungs. The visualized thoracic aorta is atherosclerotic. Visualized pulmonary artery appears normal. Accessory/replaced left hepatic artery. Multiple plates along the right ribs. IMPRESSION: 1. Cardiac findings interpreted by soils engineer. 2. No suspicious mass or consolidation in the visualized lungs. Ordered By: MARYURI CASIANO Interpreted By: Romulo Loving MD, 08/26/2024 1:48 PM us Maryuri Casiano MD CT Edited Resu lt - Final * CT HEAD WO CON (08/21/2024 9:28 AM CDT) Anatomical Region Laterality Modality Head [...] 9:32 AM Narrative 08/21/2024 9:35 AM CDT [address] [address] EXAMINATION: CT of the head without contrast [...] Procedure Note Jeanmarie Schafer MD - 08/21/[address] [address] EXAMINATION: CT of the head without contrast [...] Christiano Betancourt MD CT Final Result * TROPONIN, QUANT (08/21/2024 8:40 AM CDT) TROPONIN I HIGH SENSITIVITY 55 <79 ng/L 08/21/2024 9:30 AM CDT [facility] Comment: HIGH DOSES OF BIOTIN, TROPONIN-SPECIFIC AUTOANTIBODIES, AND ANTIBODY THERAPY CONTAINING HAMA MAY INTERFERE WITH THIS TEST RESULT. CORRELATION TO CLINICAL HISTORY AND PRESENTATION RECOMMENDED. 08/21/2024 8:40 AM CDT Christiano Betancourt MD LABORATORY Final Result [facility] [address] [place] [address], [place] [phone] * ECG 12 lead (08/21/2024 8:07 AM CDT) 08/21/2024 8:07 AM CDT Narrative [facility] ([facility]) RAD - 08/21/2024 7:58 PM CDT [address] Test Date: 2024-08-21 Pat [facility] Department: 40 Room: [id number] Gender: Male Insight Director: : 1950 Requested By: CHRISTIANO BETANCOURT Order Number: [id number] Reading MD: Kim Medina Measurements Intervals [place] Rate: 67 P: 16 MO: 169 QRS: 5 QRSD: 86 T: 142 QT: 438 QTc: 464 Interpretive Statements SINUS RHYTHM ST DEVIATION AND MODERATE T-WAVE ABNORMALITY, CONSIDER ANTEROLATERAL ISCHEMIA [-0.1+ mV T-WAVE IN V3-V6] Compared to ECG 08/17/2024 09:35:52 T-wave abnormality now present Possible ischemia now present Left bundle-branch block no longer present Procedure Note Kim Medina MD - 08/21/[address] Test Date: 2024-08-21 Pat Name: [facility] Department: 40 Room: [id number] Gender: Male Insight Director: : 1950 Requested By: CHRISTIANO BETANCOURT Order Number: [id number] Reading MD: Kim Medina Measurements Intervals [place] Rate: 67 P: 16 MO: 169 QRS: 5 QRSD: 86 T: 142 QT: 438 QTc: 464 Interpretive Statements SINUS RHYTHM ST DEVIATION AND MODERATE T-WAVE ABNORMALITY, CONSIDER ANTEROLATERALISCHEMIA [-0.1+ mV T-WAVE IN V3-V6] Compared to ECG 08/17/2024 09:35:52 T-wave abnormality now present Possible ischemia now present Left bundle-branch block no longer present us Christiano Betancourt MD ECG ORDERABLES Final Result [facility] * (ABNORMAL) POCT glucose (08/21/2024 6:13 AM CDT) GLUCOSE POC 232(H) 70 - 99 mg/dL 08/21/2024 6:22 AM CDT [facility] 08/21/2024 6:13 AM CDT Christiano Betancourt MD POCT ORDERABLES - DEVICE Final Result Performing Organization Address City/[facility] [[email or web address]] Co de Phone Number [facility] [address] [place] [address], [place] [phone] * MRSA SCREENING (08/21/2024 4:11 AM CDT) SPEC DESCRIPTION NASAL 08/21/2024 4:11 AM CDT [facility] SPECIAL REQUESTS NO SPECIAL REQUEST 08/21/2024 4:11 AM CDT [facility] CULTURE RESULT NO METHICILLIN RESISTANT STAPHYLOCOCCUS AUREUS ISOLATED 08/22/2024 6:53 AM CDT [facility] SPECIMEN FROM INTERNAL NOSE / Unknown 08/21/2024 4:11 AM CDT 08/21/2024 4:29 AM CDT Christiano Betancourt MD MICROBIOLOGY - GENERAL ORDERABL ES Final Result Performing Organization Address City/[facility] [[email or web address]] Co de Phone Number [facility] [address] [place] [address], [place] [phone] * HEPARIN, ANTI XA, UFH (08/21/2024 4:07 AM CDT) HEPARIN ANTI XA UFH 0.45 0.30 - 0.70 IU/ML 08/21/2024 5:16 AM CDT [facility] Comment: UFH Therapeutic Anti Xa Ranges: Medical Therapeutic Range: 0.30 - 0.70 IU/mL Cardiac Therapeutic Range: 0.30 - 0.50 IU/mL Neuro Therapeutic Range: 0.20 - 0.40 IU/mL 08/21/2024 4:07 AM CDT us Christiano Betancourt MD LABORATORY Final Result [facility] [address] [place] [address], * (ABNORMAL) BASIC METABOLIC PANEL (08/21/2024 4:07 AM CDT) GLUCOSE 252(H) 70 - 99 MG/DL 08/21/2024 5:03 AM CDT [facility] BUN 18 7 - 18 MG/DL 08/21/2024 5:03 AM CDT [facility] CREATININE S/P/B 1.01 0.7 - 1.3 MG/DL 08/21/2024 5:03 AM CDT [facility] SODIUM S/P/B 135(L) 136 - 145 MMOL/L 08/21/2024 5:03 AM CDT [facility] POTASSIUM S/P/B 3.6 3.5 - 5.1 MMOL/L 08/21/2024 5:03 AM CDT [facility] CHLORIDE S/P/B 104 97 - 115 MMOL/L 08/21/2024 5:03 AM CDT [facility] CO2 25.6 21 - 32 MMOL/L 08/21/2024 5:03 AM CDT [facility] CALCIUM S/P/B 8.5 8.5 - 10.1 MG/DL 08/21/2024 5:03 AM CDT [facility] ANION GAP 5.4 2 - 10 MMOL/L 08/21/2024 5:03 AM CDT [facility] BUN CREATININE RATIO 17.8 6 - 26 08/21/2024 5:03 AM CDT [facility] GFR ESTIMATE 77(L) >90 ML/MIN/1.7 3 M2 08/21/2024 5:03 AM CDT [facility] Comment: NOTE: eGFR is not calculated for patients <18 years of age or gender unknown. This is an estimated GFR calculation using the new CKD EPI creatinine equation without race and so does not require a correction factor for race. This estimated GFR should not be used for calculating drug doses. 08/21/2024 4:07 AM CDT us Christiano Betancourt MD LABORATORY Final Result [facility] [address] [place] [address], [place] [phone] * (ABNORMAL) CBC W/DIFF AUTOMATED (08/21/2024 4:07 AM CDT) WBC 9.11 4.5 - 11.0 x10'3/uL 08/21/2024 4:45 AM CDT [facility] RBC 4.78 4.70 - 6.10 x10'6/uL 08/21/2024 4:45 AM CDT [facility] HGB 13.1(L) 14.0 - 18.0 G/DL 08/21/2024 4:45 AM CDT [facility] HCT 41.4(L) 43.0 - 54.0 % 08/21/2024 4:45 AM CDT [facility] MCV 86.6 80.0 - 94.0 FL 08/21/2024 4:45 AM CDT [facility] MCH 27.4 27.0 - 31.0 PG 08/21/2024 4:45 AM CDT [facility] MCHC 31.6(L) 32.0 - 36.0 G/DL 08/21/2024 4:45 AM CDT [facility] RDW 15.0(H) 11.5 - 14.5 % 08/21/2024 4:45 AM CDT [facility] PLT 266 130 - 400 x10'3/uL 08/21/2024 4:45 AM CDT [facility] MPV 11.3 9.3 - 12.2 FL 08/21/2024 4:45 AM CDT [facility] DIFFERENTIAL TYPE AUTOMATED DIFFERENTIAL 08/21/2024 4:45 AM CDT [facility] NEUTROPHILS % 51.5 % 08/21/2024 4:45 AM CDT [facility] LYMPHOCYTES % 34.6 % 08/21/2024 4:45 AM CDT [facility] MONOCYTES % 9.1 % 08/21/2024 4:45 AM CDT [facility] EOSINOPHILS 3.5 % 08/21/2024 4:45 AM CDT [facility] BASOPHILS 1.0 % 08/21/2024 4:45 AM CDT [facility] IMMATURE GRANS % 0.3 % 08/22/19 4:45 AM CDT [facility] ABS. NEUTROPHILS 4.69 1.80 - 7.70 x10'3/uL 08/21/2024 4:45 AM CDT [facility] ABS. LYMPHOCYTES 3.15 1.00 - 4.80 x10'3/uL 08/21/2024 4:45 AM CDT [facility] ABS. MONOCYTES 0.83(H) 0.30 - 0.82 x10'3/uL 08/21/2024 4:45 AM CDT [facility] ABS. EOSINOPHILS 0.32 0.04 - 0.54 x10'3/uL 08/21/2024 4:45 AM CDT [facility] ABS. BASOPHILS 0.09(H) 0.01 - 0.08 x10'3/uL 08/21/2024 4:45 AM CDT [facility] ABS. IMMATURE GRANULOCYTES 0.03 0.00 - 0.49 x10'3/uL 08/21/2024 4:45 AM CDT [facility] 08/21/2024 4:07 AM CDT Christiano Betancourt MD LABORATORY Final Result Performing Organization Address City/[facility]/ZIP Co de Phone Number [facility] [address] [place] [address], [place] [phone] * (ABNORMAL) HEPARIN, ANTI XA, UFH (08/21/2024 2:58 AM CDT) HEPARIN ANTI XA UFH 0.80(H) 0.30 - 0.70 IU/ML 08/21/2024 3:27 AM CDT [facility] Comment: UFH Therapeutic Anti Xa Ranges: Medical Therapeutic Range: 0.30 - 0.70 IU/mL Cardiac Therapeutic Range: 0.30 - 0.50 IU/mL Neuro Therapeutic Range: 0.20 - 0.40 IU/mL 08/21/2024 2:58 AM CDT Christiano Betancourt MD LABORATORY Final Result [facility] [address] [place] [address], [place] [phone] * (ABNORMAL) HEPARIN, ANTI XA, UFH (08/21/2024 1:51 AM CDT) HEPARIN ANTI XA UFH 1.15(HH) 0.30 - 0.70 IU/ML 08/21/2024 2:43 AM CDT [facility] Comment: UFH Therapeutic Anti Xa Ranges: Medical Therapeutic Range: 0.30 - 0.70 IU/mL Cardiac Therapeutic Range: 0.30 - 0.50 IU/mL Neuro Therapeutic Range: 0.20 - 0.40 IU/mL Successful Call: XAUNF called 08/21/2024 02:43 AM to [facility] ICU ([id number]/CHRISTINA ESPINOZA) by [id number]. Read Back: Yes 08/21/2024 1:51 AM CDT Christiano Betancourt MD LABORATORY Final Result Performing Organization Address City/[facility]/ZIP Co de Phone Number [facility] [address] [place] [address], * (ABNORMAL) HEPARIN, ANTI XA, UFH (08/21/2024 12:27 AM CDT) HEPARIN ANTI XA UFH 1.57(HH) 0.30 - 0.70 IU/ML 08/21/2024 12:48 AM CDT [facility] Comment: UFH Therapeutic Anti Xa Ranges: Medical Therapeutic Range: 0.30 - 0.70 IU/mL Cardiac Therapeutic Range: 0.30 - 0.50 IU/mL Neuro Therapeutic Range: 0.20 - 0.40 IU/mL Successful Call: XAUNF called 08/21/2024 00:51 AM to [facility] ICU ([id number]/ALEXISTIFFANIE) by [id number]. Read Back: Yes 08/21/2024 12:2 7 AM CDT us Christiano Betancourt MD LABORATORY Final Result Performing Organization Address City/[facility]/ZIP Co de Phone Number [facility] [address] [place] [address], * (ABNORMAL) POCT glucose (08/20/2024 8:30 PM CDT) GLUCOSE POC 146(H) 70 - 99 mg/dL 08/20/2024 8:32 PM CDT [facility] 08/20/2024 8:30 PM CDT Christiano Betancourt MD POCT ORDERABLES - DEVICE Final Result Performing Organization Address City/[facility] [[email or web address]] Co de Phone Number [facility] [address] [place] [address], [place] [phone] * PROTIME/INR, VENOUS (08/20/2024 6:00 PM CDT) Pathologist [facility] [place] PROTIME 10.6 10.2 - 12.9 SEC 08/20/2024 6:39 PM CDT [facility] INR 0.9 08/20/2024 6:39 PM CDT [facility] Comment: Recommended INR Therapeutic Goals: 2.0-3.0 Routine Therapy 2.5-3.5 Mechanical Prosthetic Valves (High Risk) 08/20/2024 6:00 PM CDT Christiano Betancourt MD LABORATORY Final Result [facility] [address] [place] [address], [place] [phone] * PARTIAL THROMBOPLASTIN TIME,PTT (08/20/2024 6:00 PM CDT) PTT 32.1 25.1 - 36.5 SEC 08/20/2024 6:39 PM CDT [facility] 08/20/2024 6:00 PM CDT us Christiano Betancourt MD LABORATORY Final Result [facility] [address] [place] [address], * (ABNORMAL) CBC W/DIFF AUTOMATED (08/20/2024 6:00 PM CDT) WBC 8.73 4.5 - 11.0 x10'3/uL 08/20/2024 6:10 PM CDT [facility] RBC 4.86 4.70 - 6.10 x10'6/uL 08/20/2024 6:10 PM CDT [facility] HGB 13.5(L) 14.0 - 18.0 G/DL 08/20/2024 6:10 PM CDT [facility] HCT 42.6(L) 43.0 - 54.0 % 08/20/2024 6:10 PM CDT [facility] MCV 87.7 80.0 - 94.0 FL 08/20/2024 6:10 PM CDT [facility] MCH 27.8 27.0 - 31.0 PG 08/20/2024 6:10 PM CDT [facility] MCHC 31.7(L) 32.0 - 36.0 G/DL 08/20/2024 6:10 PM CDT [facility] RDW 15.1(H) 11.5 - 14.5 % 08/20/2024 6:10 PM CDT [facility] PLT 247 130 - 400 x10'3/uL 08/20/2024 6:10 PM CDT [facility] MPV 11.5 9.3 - 12.2 FL 08/20/2024 6:10 PM CDT [facility] DIFFERENTIAL TYPE AUTOMATED DIFFERENTIAL 08/20/2024 6:10 PM CDT [facility] NEUTROPHILS % 55.7 % 08/20/2024 6:10 PM CDT [facility] LYMPHOCYTES % 31.7 % 08/20/2024 6:10 PM CDT [facility] MONOCYTES % 8.1 % 08/20/2024 6:10 PM CDT [facility] EOSINOPHILS 3.6 % 08/20/2024 6:10 PM CDT [facility] BASOPHILS 0.7 % 08/20/2024 6:10 PM CDT [facility] IMMATURE GRANS % 0.2 % 08/21/19 6:10 PM CDT [facility] ABS. NEUTROPHILS 4.86 1.80 - 7.70 x10'3/uL 08/20/2024 6:10 PM CDT [facility] ABS. LYMPHOCYTES 2.77 1.00 - 4.80 x10'3/uL 08/20/2024 6:10 PM CDT [facility] ABS. MONOCYTES 0.71 0.30 - 0.82 x10'3/uL 08/20/2024 6:10 PM CDT [facility] ABS. EOSINOPHILS 0.31 0.04 - 0.54 x10'3/uL 08/20/2024 6:10 PM CDT [facility] ABS. BASOPHILS 0.06 0.01 - 0.08 x10'3/uL 08/20/2024 6:10 PM CDT [facility] ABS. IMMATURE GRANULOCYTES 0.02 0.00 - 0.49 x10'3/uL 08/20/2024 6:10 PM CDT [facility] 08/20/2024 6:00 PM CDT us Christiano Betancourt MD LABORATORY Final Result Performing Organization Address City/[facility]/ZIP Co de Phone Number [facility] [address] [place] [address], [place] [phone] * (ABNORMAL) POCT glucose (08/20/2024 3:55 PM CDT) [facility] Signature GLUCOSE POC 286(H) 70 - 99 mg/dL 08/20/2024 4:17 PM CDT [facility] 08/20/2024 3:55 PM CDT Christiano Betancourt MD POCT ORDERABLES - DEVICE Final Result Performing Organization Address [facility] [[email or web address]] Co de Phone Number [facility] [address] [place] [id number], [place] [phone] * USV CAROTID DUPLEX GARY (08/20/2024 2:53 PM CDT) Anatomical Region Laterality Modality Neck Vascular Ultraso und 08/20/2024 2:10 PM CDT Narrative 08/20/2024 9:30 PM CDT CAROTID ARTERY DUPLEX [facility] Pat.Name: RAMÍREZ FERNANDO Pat.ID: [id number] .Date: 08/20/2024 Refer.MD: Donavon Connor Exam Time: 2:10:00 PM Study Type:KKIE VS Duplex Carotid BI Height: 64 in [...] 0 <Electronic Signature> 08/20/2024 09:30 PM Jeanmarie Padgett M.D. Procedure Note Jeanmarie Padgett MD - 08/20/2024 CAROTID ARTERY DUPLEX [facility]AGING [facility] Pat.Name: RAMÍREZ FERNANDO Pat.ID: [id number] St.Date: 08/20/2024 Refer.MD: Donavon Connor Exam Time: 2:10:00 [...] 0 <Electronic Signature> 08/20/2024 09:30 PM Jeanmarie Padgett M.D. Christiano Betancourt MD [facility] Final Result * (ABNORMAL) POCT glucose (08/20/2024 11:09 AM CDT) GLUCOSE POC 230(H) 70 - 99 mg/dL 08/20/2024 11:33 AM CDT [facility] 08/20/2024 11:0 9 AM CDT Christiano Betancourt MD POCT ORDERABLES - DEVICE Final Result [facility] [address] [place] [address], [place] [phone] * (ABNORMAL) POCT glucose (08/20/2024 6:03 AM CDT) GLUCOSE POC 279(H) 70 - 99 mg/dL 08/20/2024 6:09 AM CDT [facility] 08/20/2024 6:03 AM CDT Christiano Betancourt MD POCT ORDERABLES - DEVICE Final Result [facility] [address] [place] [address], [place] [phone] * (ABNORMAL) BASIC METABOLIC PANEL (08/20/2024 5:48 AM CDT) GLUCOSE 277(H) 70 - 99 MG/DL 08/20/2024 6:41 AM CDT [facility] BUN 16 7 - 18 MG/DL 08/20/2024 6:41 AM CDT [facility] CREATININE S/P/B 1.03 0.7 - 1.3 MG/DL 08/20/2024 6:41 AM CDT [facility] SODIUM S/P/B 136 136 - 145 MMOL/L 08/20/2024 6:41 AM CDT [facility] POTASSIUM S/P/B 3.5 3.5 - 5.1 MMOL/L 08/20/2024 6:41 AM CDT [facility] CHLORIDE S/P/B 106 97 - 115 MMOL/L 08/20/2024 6:41 AM CDT [facility] CO2 24.6 21 - 32 MMOL/L 08/20/2024 6:41 AM CDT [facility] CALCIUM S/P/B 8.2(L) 8.5 - 10.1 MG/DL 08/20/2024 6:41 AM CDT [facility] ANION GAP 5.4 2 - 10 MMOL/L 08/20/2024 6:41 AM CDT [facility] BUN CREATININE RATIO 15.5 6 - 26 08/20/2024 6:41 AM CDT [facility] GFR ESTIMATE 75(L) >90 ML/MIN/1.7 3 M2 08/20/2024 6:41 AM CDT [facility] Comment: NOTE: eGFR is not calculated for patients <18 years of age or gender unknown. This is an estimated GFR calculation using the new CKD EPI creatinine equation without race and so does not require a correction factor for race. This estimated GFR should not be used for calculating drug doses. 08/20/2024 5:48 AM CDT us Christiano Betancourt MD LABORATORY Final Result [facility] [address] [place] [address], * (ABNORMAL) CBC W/DIFF AUTOMATED (08/20/2024 5:48 AM CDT) WBC 7.59 4.5 - 11.0 x10'3/uL 08/20/2024 6:16 AM CDT [facility] RBC 4.68(L) 4.70 - 6.10 x10'6/uL 08/20/2024 6:16 AM CDT [facility] HGB 13.1(L) 14.0 - 18.0 G/DL 08/20/2024 6:16 AM CDT [facility] HCT 40.7(L) 43.0 - 54.0 % 08/20/2024 6:16 AM CDT [facility] MCV 87.0 80.0 - 94.0 FL 08/20/2024 6:16 AM CDT [facility] MCH 28.0 27.0 - 31.0 PG 08/20/2024 6:16 AM CDT [facility] MCHC 32.2 32.0 - 36.0 G/DL 08/20/2024 6:16 AM CDT [facility] RDW 15.1(H) 11.5 - 14.5 % 08/20/2024 6:16 AM CDT [facility] PLT 244 130 - 400 x10'3/uL 08/20/2024 6:16 AM CDT [facility] MPV 11.3 9.3 - 12.2 FL 08/20/2024 6:16 AM CDT [facility] DIFFERENTIAL TYPE AUTOMATED DIFFERENTIAL 08/20/2024 6:16 AM CDT [facility] NEUTROPHILS % 63.3 % 08/20/2024 6:16 AM CDT [facility] LYMPHOCYTES % 23.2 % 08/20/2024 6:16 AM CDT [facility] MONOCYTES % 9.1 % 08/20/2024 6:16 AM CDT [facility] EOSINOPHILS 3.0 % 08/20/2024 6:16 AM CDT [facility] BASOPHILS 0.9 % 08/20/2024 6:16 AM CDT [facility] IMMATURE GRANS % 0.5 % 08/21/19 6:16 AM CDT [facility] ABS. NEUTROPHILS 4.80 1.80 - 7.70 x10'3/uL 08/20/2024 6:16 AM CDT [facility] ABS. LYMPHOCYTES 1.76 1.00 - 4.80 x10'3/uL 08/20/2024 6:16 AM CDT [facility] ABS. MONOCYTES 0.69 0.30 - 0.82 x10'3/uL 08/20/2024 6:16 AM CDT [facility] ABS. EOSINOPHILS 0.23 0.04 - 0.54 x10'3/uL 08/20/2024 6:16 AM CDT [facility] ABS. BASOPHILS 0.07 0.01 - 0.08 x10'3/uL 08/20/2024 6:16 AM CDT [facility] ABS. IMMATURE GRANULOCYTES 0.04 0.00 - 0.49 x10'3/uL 08/20/2024 6:16 AM CDT [facility] 08/20/2024 5:48 AM CDT Christiano Betancourt MD LABORATORY Final Result Performing Organization Address City/[facility]/ZIP Co de Phone Number [facility] [address] [place] [address], [place] [phone] * (ABNORMAL) POCT glucose (08/19/2024 7:57 PM CDT) GLUCOSE POC 168(H) 70 - 99 mg/dL 08/19/2024 8:36 PM CDT [facility] 08/19/2024 7:57 PM CDT Christiano Betancourt MD POCT ORDERABLES - DEVICE Final Result [facility] [address] [place] [address], [place] [phone] * (ABNORMAL) POCT glucose (08/19/2024 2:21 PM CDT) GLUCOSE POC 282(H) 70 - 99 mg/dL 08/19/2024 2:36 PM CDT [facility] 08/19/2024 2:21 PM CDT us Christiano Betancourt MD POCT ORDERABLES - DEVICE Final Result [facility] [address] [place] [address], [place] [phone] * CT HEAD WO CON (08/19/2024 12:44 PM CDT) Anatomical Region Laterality Modality Head Computed Tomogra phy 08/19/2024 3:21 PM CDT Impressions 08/19/2024 3:37 PM CDT IMPRESSION: 1. Patchy recent right hemispheric infarcts, somewhat better delineated on the prior MRI. No large hemorrhagic transformation. No midline shift. Basal cisterns patent. 2. Small vessel disease and volume loss. Ordered By: CHRISTIANO BETANCOURT Interpreted By: Matty Hess MD, 08/19/2024 3:21 PM Narrative 08/19/2024 3:37 PM CDT [facility] [address] [place], [place] [address] DATE: 08/19/2024 12:40 PM EXAMINATION: CT of the head CLINICAL HISTORY: Lethargy COMPARISON: 08/17/2024 TECHNIQUE: CT examination of the head without contrast was performed. Axial and multiplanar images obtained. A dose lowering technique was used for this procedure, which may include, but is not limited to, dose reduction technique, automated exposure control, the use of iterative reconstruction, and ALARA (As Low As Reasonably Achievable) / Image Gently techniques. FINDINGS: Image quality is degraded by motion. There are patchy foci of hypodensity noted in the right frontoparietal and temporal parenchyma, corresponding to recent infarcts which, better delineated on the prior MRI. No large hemorrhagic transformation. No midline shift. Basal cisterns patent. Otherwise stable small vessel disease, or cranial vascular calcifications, and volume loss. Calvarium unremarkable. Mastoid air cells clear. Mild mucosal thickening in the paranasal sinuses. Bilateral lens replacements. Procedure Note Matty Hess MD - 08/19/2024 [facility] [address] [place], [place] [address] DATE: 08/19/2024 12:40 PM EXAMINATION: CT of the head CLINICAL HISTORY: Lethargy COMPARISON: 08/17/2024 TECHNIQUE: CT examination of the head without contrast was performed.Axial and multiplanar images obtained. A dose lowering technique was used for this procedure, which may include,but is not limited to, dose reduction technique, automated exposurecontrol, the use of iterative reconstruction, and ALARA (As Low AsReasonably Achievable) / Image Gently techniques. FINDINGS: Image quality is degraded by motion. There are patchy foci of hypodensitynoted in the right frontoparietal and temporal parenchyma, correspondingto recent infarcts which, better delineated on the prior MRI. No largehemorrhagic transformation. No midline shift. Basal cisterns patent.Otherwise stable small vessel disease, or cranial vascular calcifications,and volume loss. Calvarium unremarkable. Mastoid air cells clear. Mildmucosal thickening in the paranasal sinuses. Bilateral lensreplacements. IMPRESSION: 1. Patchy recent right hemispheric infarcts, somewhat better delineated onthe prior MRI. No large hemorrhagic transformation. No midline shift.Basal cisterns patent. 2. Small vessel disease and volume loss. Ordered By: CHRISTIANO BETANCOURT Interpreted By: Matty Hess MD, 08/19/2024 3:21 PM Christiano Betancourt MD CT Final Result * (ABNORMAL) POCT glucose (08/19/2024 12:17 PM CDT) GLUCOSE POC 276(H) 70 - 99 mg/dL 08/19/2024 12:28 PM CDT [facility] 08/19/2024 12:1 7 PM CDT Christiano Betancourt MD POCT ORDERABLES - DEVICE Final Result Performing Organization Address City/[facility]/ZIP Co de Phone Number [facility] [address] [place] [address], * (ABNORMAL) POCT glucose (08/19/2024 10:26 AM CDT) GLUCOSE POC 278(H) 70 - 99 mg/dL 08/19/2024 10:45 AM CDT [facility] 08/19/2024 10:2 6 AM CDT Christiano Betancourt MD POCT ORDERABLES - DEVICE Final Result Performing Organization Address [facility] [[email or web address]] Co de Phone Number [facility] [address] [place] [address], * (ABNORMAL) BASIC METABOLIC PANEL (08/19/2024 6:07 AM CDT) GLUCOSE 267(H) 70 - 99 MG/DL 08/19/2024 6:57 AM CDT [facility] BUN 13 7 - 18 MG/DL 08/19/2024 6:57 AM CDT [facility] CREATININE S/P/B 0.98 0.7 - 1.3 MG/DL 08/19/2024 6:57 AM CDT [facility] SODIUM S/P/B 139 136 - 145 MMOL/L 08/19/2024 6:57 AM CDT [facility] POTASSIUM S/P/B 3.4(L) 3.5 - 5.1 MMOL/L 08/19/2024 6:57 AM CDT [facility] CHLORIDE S/P/B 106 97 - 115 MMOL/L 08/19/2024 6:57 AM CDT [facility] CO2 23.7 21 - 32 MMOL/L 08/19/2024 6:57 AM CDT [facility] CALCIUM S/P/B 8.7 8.5 - 10.1 MG/DL 08/19/2024 6:57 AM CDT [facility] ANION GAP 9.3 2 - 10 MMOL/L 08/19/2024 6:57 AM CDT [facility] BUN CREATININE RATIO 13.3 6 - 26 08/19/2024 6:57 AM CDT [facility] GFR ESTIMATE 80(L) >90 ML/MIN/1.7 3 M2 08/19/2024 6:57 AM CDT [facility] Comment: NOTE: eGFR is not calculated for patients <18 years of age or gender unknown. This is an estimated GFR calculation using the new CKD EPI creatinine equation without race and so does not require a correction factor for race. This estimated GFR should not be used for calculating drug doses. 08/19/2024 6:07 AM CDT us Christiano Betancourt MD LABORATORY Final Result [facility] [address] [place] [address], [place] [phone] * (ABNORMAL) CBC W/DIFF AUTOMATED (08/19/2024 6:07 AM CDT) WBC 8.15 4.5 - 11.0 x10'3/uL 08/19/2024 6:19 AM CDT [facility] RBC 4.90 4.70 - 6.10 x10'6/uL 08/19/2024 6:19 AM CDT [facility] HGB 13.8(L) 14.0 - 18.0 G/DL 08/19/2024 6:19 AM CDT [facility] HCT 42.4(L) 43.0 - 54.0 % 08/19/2024 6:19 AM CDT [facility] MCV 86.5 80.0 - 94.0 FL 08/19/2024 6:19 AM CDT [facility] MCH 28.2 27.0 - 31.0 PG 08/19/2024 6:19 AM CDT [facility] MCHC 32.5 32.0 - 36.0 G/DL 08/19/2024 6:19 AM CDT [facility] RDW 15.1(H) 11.5 - 14.5 % 08/19/2024 6:19 AM CDT [facility] PLT 241 130 - 400 x10'3/uL 08/19/2024 6:19 AM CDT [facility] MPV 11.0 9.3 - 12.2 FL 08/19/2024 6:19 AM CDT [facility] DIFFERENTIAL TYPE AUTOMATED DIFFERENTIAL 08/19/2024 6:19 AM CDT [facility] NEUTROPHILS % 60.5 % 08/19/2024 6:19 AM CDT [facility] LYMPHOCYTES % 25.2 % 08/19/2024 6:19 AM CDT [facility] MONOCYTES % 8.3 % 08/19/2024 6:19 AM CDT [facility] EOSINOPHILS 4.9 % 08/19/2024 6:19 AM CDT [facility] BASOPHILS 0.9 % 08/19/2024 6:19 AM CDT [facility] IMMATURE GRANS % 0.2 % 08/20/19 6:19 AM CDT [facility] ABS. NEUTROPHILS 4.93 1.80 - 7.70 x10'3/uL 08/19/2024 6:19 AM CDT [facility] ABS. LYMPHOCYTES 2.05 1.00 - 4.80 x10'3/uL 08/19/2024 6:19 AM CDT [facility] ABS. MONOCYTES 0.68 0.30 - 0.82 x10'3/uL 08/19/2024 6:19 AM CDT [facility] ABS. EOSINOPHILS 0.40 0.04 - 0.54 x10'3/uL 08/19/2024 6:19 AM CDT [facility] ABS. BASOPHILS 0.07 0.01 - 0.08 x10'3/uL 08/19/2024 6:19 AM CDT [facility] ABS. IMMATURE GRANULOCYTES 0.02 0.00 - 0.49 x10'3/uL 08/19/2024 6:19 AM CDT [facility] 08/19/2024 6:07 AM CDT Christiano Betancourt MD LABORATORY Final Result [facility] [address] [place] [address], [place] [phone] * (ABNORMAL) POCT glucose (08/19/2024 5:33 AM CDT) [facility] Signature GLUCOSE POC 289(H) 70 - 99 mg/dL 08/19/2024 5:42 AM CDT [facility] 08/19/2024 5:33 AM CDT us Christiano Betancourt MD POCT ORDERABLES - DEVICE Final Result [facility] [address] [place] [address], [place] [phone] * (ABNORMAL) POCT glucose (08/18/2024 7:32 PM CDT) GLUCOSE POC 211(H) 70 - 99 mg/dL 08/18/2024 7:58 PM CDT [facility] 08/18/2024 7:32 PM CDT Christiano Betancourt MD POCT ORDERABLES - DEVICE Final Result Performing Organization Address City/[facility]/ZIP Co de Phone Number [facility] [address] [place] [address], [place] [phone] * (ABNORMAL) POCT glucose (08/18/2024 4:11 PM CDT) GLUCOSE POC 257(H) 70 - 99 mg/dL 08/18/2024 4:19 PM CDT [facility] 08/18/2024 4:11 PM CDT Christiano Betancourt MD POCT ORDERABLES - DEVICE Final Result Performing Organization Address [facility] [[email or web address]] Co de Phone Number [facility] [address] [place] [address], [place] [phone] * USE ECHOCARDIOGRAM W CON (08/18/2024 4:03 PM CDT) Anatomical Region Laterality Modality NA Echocardiogram 08/18/2024 3:08 PM CDT Narrative 08/18/2024 6:02 PM CDT Echocardiography Report Pat.Name: RAMÍREZ FERNANDO Pat.ID: [id number] .Date: 08/18/2024 Exam Time: 3:08:00 PM Study Type:ECHO WITH CARDIAC DOPPLER COMP Height: 64 in Weight: 134 lb BSA: 1.65 m2 Age: 9 1950,74Y Sex: M BP: 173/87 Sonogrphr: SS RDCS Pat. Stat.:Inpatient Room: 422 Reason for Study:R/O [...] 30.5 mm Right and Left 0.687 [place] 59.3 mm Ventricular Septum IVSd 1.54 cm Left Atrium LA a-p 2.6 cm (2.8-3.4)+* LA VOLBP 26.1 ml Aorta Ao Rtd 3.1 cm LVOT LVOT 2 cm LVOTArea 3.14 cm2 Ratios IVS LA Biplane LAVol I BP 15.8 ml/m2 Right Atrium [place] 38.1 mm [place] 21.1 mm MMODE Aortic Valve AV sep 1.7 cm (1.5-2.6) TA Tricuspid Annul 12.3 mm <Electronic Signature> 08/18/2024 06:02 PM Mu Tai M.D. Procedure Note Mu Tai MD - 08/18/2024 Echocardiography Report Pat.Name: RAMÍREZ FERNANDO Pat.ID: [id number] .Date: 08/18/2024 Exam Time: 3:08:00 PM Study Type:ECHO WITH CARDIAC DOPPLER COMP Height: 64 in Weight: 134 lb BSA: 1.65 m2 Age: 9 1950,74Y Sex: M BP: 173/87 Sonogrphr: SS [facility] Pat. Stat.:Inpatient Room: [facility] Reason for Study:R/O CVA Procedures: 2D, M-mode, [...] 30.5 mm Right and Left 0.687 [place] 59.3 mm Ventricular Septum IVSd 1.54 cm Left Atrium LA a-p 2.6 cm (2.8-3.4)+* LA VOLBP 26.1 ml Aorta Ao Rtd 3.1 cm LVOT LVOT 2 cm LVOTArea 3.14 cm2 Ratios IVS LA Biplane LAVol I BP 15.8 ml/m2 Right Atrium [place] 38.1 mm [place] 21.1 mm MMODE Aortic Valve AV sep 1.7 cm (1.5-2.6) TA Tricuspid Annul 12.3 mm <Electronic Signature> 08/18/2024 06:02 PM Mu Tai M.D. us Nadege INGRAM ECHO Final Res ult * (ABNORMAL) POCT glucose (08/18/2024 10:56 AM CDT) [facility] GLUCOSE POC 180(H) 70 - 99 mg/dL 08/18/2024 11:19 AM CDT [facility] 08/18/2024 10:5 6 AM CDT us Christiano Betancourt MD POCT ORDERABLES - DEVICE Final Result [facility] [address] [place] [address], [place] [phone] * (ABNORMAL) BASIC METABOLIC PANEL (08/18/2024 8:24 AM CDT) GLUCOSE 119(H) 70 - 99 MG/DL 08/18/2024 10:03 AM [facility] BUN 15 7 - 18 MG/DL 08/18/2024 10:03 AM [facility] CREATININE S/P/B 1.13 0.7 - 1.3 MG/DL 08/18/2024 10:03 AM [facility] SODIUM S/P/B 139 136 - 145 MMOL/L 08/18/2024 10:03 AM [facility] POTASSIUM S/P/B 2.6(LL) 3.5 - 5.1 MMOL/L 08/18/2024 10:03 AM [facility] Comment: Critical Result(s) Called at: 10:02:45 on 08/18/2024 by: VÍCTOR LAMBERT to and read back by: LUCIA HENDRIX CHLORIDE S/P/B 104 97 - 115 MMOL/L 08/18/2024 10:03 AM [facility] CO2 28.8 21 - 32 MMOL/L 08/18/2024 10:03 AM [facility] CALCIUM S/P/B 8.7 8.5 - 10.1 MG/DL 08/18/2024 10:03 AM [facility] ANION GAP 6.2 2 - 10 MMOL/L 08/18/2024 10:03 AM [facility] BUN CREATININE RATIO 13.3 6 - 26 08/18/2024 10:03 AM [facility] GFR ESTIMATE 67(L) >90 ML/MIN/1.7 3 M2 08/18/2024 10:03 AM [facility] Comment: NOTE: eGFR is not calculated for patients <18 years of age or gender unknown. This is an estimated GFR calculation using the new CKD EPI creatinine equation without race and so does not require a correction factor for race. This estimated GFR should not be used for calculating drug doses. 08/18/2024 8:24 AM CDT Nadege Lazojohn SEBASTIANNP LABORATORY Final Res ult [facility] [address] [place] [address], * (ABNORMAL) CBC W/DIFF AUTOMATED (08/18/2024 8:24 AM CDT) WBC 7.92 4.5 - 11.0 x10'3/uL 08/18/2024 9:11 AM CDT [facility] RBC 4.94 4.70 - 6.10 x10'6/uL 08/18/2024 9:11 AM CDT [facility] HGB 13.7(L) 14.0 - 18.0 G/DL 08/18/2024 9:11 AM CDT [facility] HCT 43.4 43.0 - 54.0 % 08/18/2024 9:11 AM CDT [facility] MCV 87.9 80.0 - 94.0 FL 08/18/2024 9:11 AM CDT [facility] MCH 27.7 27.0 - 31.0 PG 08/18/2024 9:11 AM CDT [facility] MCHC 31.6(L) 32.0 - 36.0 G/DL 08/18/2024 9:11 AM CDT [facility] RDW 15.1(H) 11.5 - 14.5 % 08/18/2024 9:11 AM CDT [facility] PLT 260 130 - 400 x10'3/uL 08/18/2024 9:11 AM CDT [facility] MPV 10.8 9.3 - 12.2 FL 08/18/2024 9:11 AM CDT [facility] DIFFERENTIAL TYPE AUTOMATED DIFFERENTIAL 08/18/2024 9:11 AM T [facility] NEUTROPHILS % 57.8 % 08/18/2024 9:11 AM CDT [facility] LYMPHOCYTES % 29.4 % 08/18/2024 9:11 AM CDT [facility] MONOCYTES % 8.3 % 08/18/2024 9:11 AM CDT [facility] EOSINOPHILS 3.2 % 08/18/2024 9:11 AM T [facility] BASOPHILS 0.9 % 08/18/2024 9:11 AM T [facility] IMMATURE GRANS % 0.4 % 08/19/19 9:11 AM T [facility] ABS. NEUTROPHILS 4.58 1.80 - 7.70 x10'3/uL 08/18/2024 9:11 AM CDT [facility] ABS. LYMPHOCYTES 2.33 1.00 - 4.80 x10'3/uL 08/18/2024 9:11 AM T [facility] ABS. MONOCYTES 0.66 0.30 - 0.82 x10'3/uL 08/18/2024 9:11 AM T [facility] ABS. EOSINOPHILS 0.25 0.04 - 0.54 x10'3/uL 08/18/2024 9:11 AM CDT [facility] ABS. BASOPHILS 0.07 0.01 - 0.08 x10'3/uL 08/18/2024 9:11 AM T [facility] ABS. IMMATURE GRANULOCYTES 0.03 0.00 - 0.49 x10'3/uL 08/18/2024 9:11 AM T [facility] 08/18/2024 8:24 AM CDT us Nadege INGRAM LABORATORY Final Res ult Performing Organization Address City/[facility]/ZIP Co de Phone Number [facility] [address] [place] [address], [place] [phone] * (ABNORMAL) POCT glucose (08/18/2024 5:36 AM CDT) GLUCOSE POC 218(H) 70 - 99 mg/dL 08/18/2024 5:38 AM CDT [facility] 08/18/2024 5:36 AM CDT us Christiano Betancourt MD POCT ORDERABLES - DEVICE Final Result Performing Organization Address City/[facility]/ZIP Co de Phone Number [facility] [address] [place] [address], [place] [phone] * (ABNORMAL) URINALYSIS (08/17/2024 9:25 PM CDT) SPECIMEN TYPE URINE STRAIGHT CATH 08/17/2024 9:28 PM CDT [facility] COLOR (U) LIGHT YELLOW 08/17/2024 9:53 PM CDT [facility] TRANSPARENCY CLEAR 08/17/2024 9:53 PM CDT [facility] SPECIFIC GRAVITY (U) 1.026 1.001 - 1.030 08/17/2024 9:53 PM CDT [facility] U PH 7.5 5.0 - 9.0 08/17/2024 9:53 PM CDT [facility] LEUKOCYTES (U) NEGATIVE NEGATIVE 08/17/2024 9:53 PM CDT [facility] NITRITES NEGATIVE NEGATIVE 08/17/2024 9:53 PM CDT [facility] PROTEIN RANDOM (U) 10 <30 MG/DL 08/17/2024 9:53 PM CDT [facility] GLUCOSE (U) 200(A) NORMAL MG/DL 08/17/2024 9:53 PM CDT [facility] KETONES MG/DL (U) TRACE(A) NEGATIVE MG/DL 08/17/2024 9:53 PM CDT [facility] Comment: Successful Call: [facility] called 08/17/2024 09:54 PM to [email or web address] ([id number]/ALON PINEDA) by [id number]. Read Back: Yes UROBILINOGEN NORMAL NORMAL MG/DL 08/17/2024 9:53 PM CDT [facility] BILIRUBIN (U) NEGATIVE NEGATIVE MG/DL 08/17/2024 9:53 PM CDT [facility] BLOOD (U) 1+(A) NEGATIVE 08/17/2024 9:53 PM CDT [facility] WBC/HPF 2 <6 /HPF 08/17/2024 9:53 PM CDT [facility] RBC/HPF 6(H) <6 /HPF 08/17/2024 9:53 PM CDT [facility] URINE, STRAIGHT CATH 08/17/2024 9:25 PM CDT us Nadege Vasquez APNP URINE ORDERABLES Final Re sult [facility] [address] [place] [address], [place] [phone] * (ABNORMAL) POCT glucose (08/17/2024 8:36 PM CDT) GLUCOSE POC 243(H) 70 - 99 mg/dL 08/17/2024 8:38 PM CDT [facility] 08/17/2024 8:36 PM CDT Christiano Betancourt MD POCT ORDERABLES - DEVICE Final Result Performing Organization Address City/[facility]/ZIP Co de Phone Number [facility] [address] [place] [address], [place] [phone] * (ABNORMAL) POCT glucose (08/17/2024 3:56 PM CDT) [facility] Signature GLUCOSE POC 201(H) 70 - 99 mg/dL 08/17/2024 4:11 PM CDT [facility] 08/17/2024 3:56 PM CDT Christiano Betancourt MD POCT ORDERABLES - DEVICE Final Result Performing Organization Address City/[facility]/ZIP Co de Phone Number [facility] [address] [place] [address], [place] [phone] * MRI BRAIN WO CON (08/17/2024 2:27 PM CDT) Anatomical Region Laterality Modality Head Magnetic Resonan ce 08/17/2024 3:00 PM CDT Impressions 08/17/2024 3:11 PM CDT IMPRESSION: Multifocal 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 Other chronic or nonurgent findings as described above. Referred By: Interpreted By: Erik Webster MD, 08/17/2024 3:00 PM Narrative 08/17/2024 3:11 PM CDT [facility] [address] [place], [place] [address] INDICATION: Stroke EXAMINATION: MRI of the brain without contrast. TECHNIQUE: Multisequence multiplanar unenhanced imaging. DATE/TIME: 08/17/2024 2:07 PM COMPARISON: CT, CTA, same date. FINDINGS: There are multiple small patchy foci of acute infarct in the right cerebral hemisphere involving the right occipital lobe, posterior temporal lobe and frontal lobe periventricular white matter. Distribution suggests involvement of the MCA watershed territories with the EMBR[employer] WORKER and CHRISTAL. No other acute infarct identified. [...] Procedure Note Erik Webster MD - 08/17/2024 [facility] [address] [place], [place] [address] INDICATION: Stroke EXAMINATION: MRI of the brain without contrast. TECHNIQUE: Multisequence multiplanar unenhanced imaging. DATE/TIME: 08/17/2024 2:07 PM COMPARISON: CT, CTA, same date. FINDINGS: There are multiple small patchy foci of acute infarct in the rightcerebral hemisphere involving the right occipital lobe, posterior temporallobe and frontal lobe periventricular white matter. Distribution suggestsinvolvement of the MCA watershed territories with the EMBROIDERY WORKER and CHRISTAL. No other acute infarct identified. [...] By: Erik Webster MD, 08/17/2024 3:00 PM Nadege Vasquez APNP MRI Final Res ult * (ABNORMAL) POCT glucose (08/17/2024 11:52 AM CDT) GLUCOSE POC 208(H) 70 - 99 mg/dL 08/17/2024 11:53 AM CDT [facility] 08/17/2024 11:5 2 AM CDT Dennis Garza MD POCT ORDERABLES - DEVICE Final Result [facility] [address] [place] [address], [place] [phone] * TROPONIN, QUANT (08/17/2024 11:50 AM CDT) TROPONIN I HIGH SENSITIVITY 52 <79 ng/L 08/17/2024 12:33 PM CDT [facility] Comment: HIGH DOSES OF BIOTIN, TROPONIN-SPECIFIC AUTOANTIBODIES, AND ANTIBODY THERAPY CONTAINING HAMA MAY INTERFERE WITH THIS TEST RESULT. CORRELATION TO CLINICAL HISTORY AND PRESENTATION RECOMMENDED. 08/17/2024 11:5 0 AM CDT us Nadege Vasquez APNP LABORATORY Final Res ult [facility] [address] [place] [address], * XR CHEST PORTABLE (08/17/2024 10:16 AM CDT) Anatomical Region Laterality Modality Chest Radiographic Lindy ging 08/17/2024 10:1 8 AM CDT Impressions 08/17/2024 10:19 AM CDT IMPRESSION: ======== 1. No convincing new acute cardiopulmonary findings. Referred By: Interpreted By: Dennis Hutson MD, 08/17/2024 10:18 AM Narrative 08/17/2024 10:19 AM CDT [place] [address] Examination: Chest x-ray 1 view Exam Date/Time: 08/17/2024 10:00 AM Reason For Exam: Altered mental status Altered mental status Comparison: Chest radiograph 06/22/2023 Technique: Single AP view of the chest was obtained. Findings: No large effusion. No pneumothorax. Atherosclerotic aorta. Elevated right hemidiaphragm similar to prior study. Pulmonary vasculature within normal limits. No consolidation. Multiple postsurgical changes in the right ribs. No convincing new infiltrate. ======== Procedure Note Dennis Hutson MD - 08/17/[address] [address] Examination: Chest x-ray 1 view Exam Date/Time: 08/17/2024 10:00 AM Reason For Exam: Altered mental status Altered mental status Comparison: Chest radiograph 06/22/2023 Technique: Single AP view of the chest was obtained. Findings: No large effusion. No pneumothorax. Atherosclerotic aorta.Elevated right hemidiaphragm similar to prior study. Pulmonaryvasculature within normal limits. No consolidation. Multiplepostsurgical changes in the right ribs. No convincing new infiltrate. ======== IMPRESSION: ======== 1. No convincing new acute cardiopulmonary findings. Referred By: Interpreted By: Dennis Hutson MD, 08/17/2024 10:18 AM Dennis Garza MD GENERAL IMAGING Final Result * (ABNORMAL) POCT glucose (08/17/2024 10:09 AM CDT) GLUCOSE POC 274(H) 70 - 99 mg/dL 08/17/2024 10:29 AM CDT [facility] 08/17/2024 10:0 9 AM CDT Dennis Garza MD POCT ORDERABLES - DEVICE Final Result Performing Organization Address City/State/[facility] [[email or web address] Co de Phone Number [facility] [address] [place] [address], [place] [phone] * EKG Reading (08/17/2024 10:03 AM CDT) Narrative Dennis Garza MD - 08/17/2024 10:03 AM CDT Dennis Garza MD 08/17/2024 11:13 AM EKG Reading Date/Time: 08/17/2024 10:03 AM Performed by: Dennis Garza MD Authorized by: Dennis Garza MD Interpreted by ED physician Comparison: compared with previous ECG Rhythm: sinus rhythm Rate: normal BPM: 70 Comments: Normal sinus rhythm heart rate 70. Normal axis left bundle branch block normal interval nonspecific ST-T wave change. Compared to EKG 06/22/2023 Rhythm strip ordered interpreted 935 Normal sinus rhythm. Heart rate 70. No ectopy Dennis Garza MD [facility] Final Result * CTA HEAD+NECK (08/17/2024 9:55 [...] artery. 8. Asymmetric diminished prominence of left EMBROIDERY WORKER territory vasculature with no focal high-grade stenosis appreciated. 9. Approximately 50% stenosis at origin of left ICA. Up to 60% stenosis of left ICA 9 mm above the origin. 10. Moderate stenosis at origin of left ECA. Referred By: Interpreted By: Dennis Hutson MD, 08/17/2024 10:21 AM Narrative 08/17/2024 10:35 AM CDT [address] [address] Examination: CTA of the head and neck [...] basilar artery. Asymmetric diminished prominence of left EMBROIDERY WORKER territory noted with no focal high- grade [...] Procedure Note Dennis Hutson MD - 08/17/[address] [address] Examination: CTA of the head and neck [...] of basilar artery. Asymmetricdiminished prominence of left EMBROIDERY WORKER territory noted with no focal high-gradestenosis appreciated. [...] artery. 8. Asymmetric diminished prominence of left EMBROIDERY WORKER territory vasculaturewith no focal high-grade stenosis appreciated. 9. Approximately 50% stenosis at origin of left ICA. Up to 60% stenosisof left ICA 9 mm above the origin. 10. Moderate stenosis at origin of left ECA. Referred By: Interpreted By: Dennis Hutson MD, 08/17/2024 10:21 AM Dennis Garza MD CT Final Result * CT STROKE(HEAD WO) (08/17/2024 [...] midline shift. Verbal preliminary given to Dr. Garza at 10:05 AM. Referred By: Interpreted By: Salvador Pretty MD, 08/17/2024 9:59 AM Narrative 08/17/2024 10:05 AM CDT [address] [address] Procedure(s): CT STROKE(HEAD WO) Date of service: [...] Procedure Note Salvador Pretty MD - 08/17/[address] [address] Procedure(s): CT STROKE(HEAD WO) Date of service: [...] midline shift. Verbal preliminary given to Dr. Garza at 10:05 AM. Referred By: Interpreted By: Salvador Pretty MD, 08/17/2024 9:59 AM us Dennis Garza MD CT Final Result * LIPID PANEL (08/17/2024 9:39 AM CDT) CHOLESTEROL 115 <200 MG/DL 08/17/2024 12:55 PM CDT [facility] TRIGLYCERIDES 120 <150 MG/DL 08/17/2024 12:55 PM CDT [facility] HDL 43 >40.0 MG/DL 08/17/2024 12:55 PM CDT [facility] LDL (CALCULATED) 48 <100 MG/DL 08/18/19 12:55 PM CDT [facility] NON HDL CHOLESTEROL 72 <130 MG/DL 08/17 12:55 PM CDT [facility] CHOL/HDL RATIO 2.7 0.0 - 4.5 08/17/2024 12:55 PM CDT [facility] VLDL CALCULATION 24 5 - 55 MG/DL 08/17/2024 12:55 PM CDT [facility] LIPID INTERPRETATION 08/17/2024 12:55 PM CDT [facility] Comment: NIH CONCENSUS REPORT RECOMMENDATIONS: ADULT CHILD LOW RISK: CHOLESTEROL <200 <170 TRIGLYCERIDE <150 --- HDL >=60 --- LDL <100 <110 BORDERLINE: CHOLESTEROL 200-239 170-199 TRIGLYCERIDE 150-199 --- HDL 40-59 --- LDL 100-159 110-129 HIGH RISK: CHOLESTEROL >=240 >=200 TRIGLYCERIDE >=200 --- HDL <40 --- LDL >=160 >=130 08/17/2024 9:39 AM CDT Nadege Vasquez APNP LABORATORY Final Res ult [facility] [address] [place] [address], * (ABNORMAL) HEMOGLOBIN, GLYCATED (08/17/2024 9:39 AM CDT) HGB A1C 7.8(H) <5.7 % 08/17/2024 2:04 PM CDT [facility] Comment: ADA GUIDELINES 2010 5.7 TO 6.4% INCREASED RISK OF DIABETES > OR = 6.5% CONSISTENT WITH DIABETES ESTIMATED AVG GLUCOSE 177 mg/dL 08/17/2024 2:04 PM CDT [facility] 08/17/2024 9:39 AM CDT Nadege Trinidadbakari [facility] Final Res ult [facility] [address] [place] [address], [place] [phone] * MAGNESIUM (08/17/2024 9:39 AM CDT) MAGNESIUM 2.1 1.8 - 2.4 MG/DL 08/17/2024 12:55 PM CDT [facility] 08/17/2024 9:39 AM CDT Nadege Lazojohn [facility] Final Res ult Performing Organization Address [facility] [[email or web address]] Co de Phone Number [facility] [address] [place] [address], [place] [phone] * TROPONIN, QUANT (08/17/2024 9:39 AM CDT) TROPONIN I HIGH SENSITIVITY 54 <79 ng/L 08/17/2024 10:33 AM CDT [facility] Comment: HIGH DOSES OF BIOTIN, TROPONIN-SPECIFIC AUTOANTIBODIES, AND ANTIBODY THERAPY CONTAINING HAMA MAY INTERFERE WITH THIS TEST RESULT. CORRELATION TO CLINICAL HISTORY AND PRESENTATION RECOMMENDED. 08/17/2024 9:39 AM CDT Nadege Lazomu [facility] Final Res ult Performing Organization Address City/[facility]/ZIP Co de Phone Number [facility] [address] [place] [address], [place] [phone] * (ABNORMAL) COMPREHENSIVE METABOLIC PANEL (08/17/2024 9:39 AM CDT) [facility] GLUCOSE 240(H) 70 - 99 MG/DL 08/17/2024 10:33 AM CDT [facility] BUN 23(H) 7 - 18 MG/DL 08/17/2024 10:33 AM CDT [facility] CREATININE S/P/B 1.44(H) 0.7 - 1.3 MG/DL 08/17/2024 10:33 AM CDT [facility] SODIUM S/P/B 138 136 - 145 MMOL/L 08/17/2024 10:33 AM CDT [facility] POTASSIUM S/P/B 3.6 3.5 - 5.1 MMOL/L 08/17/2024 10:33 AM CDT [facility] CHLORIDE S/P/B 105 97 - 115 MMOL/L 08/17/2024 10:33 AM CDT [facility] CO2 26.9 21 - 32 MMOL/L 08/17/2024 10:33 AM CDT [facility] CALCIUM S/P/B 9.3 8.5 - 10.1 MG/DL 08/17/2024 10:33 AM CDT [facility] BILIRUBIN TOTAL S/P/B 0.8 0.2 - 1.2 MG/DL 08/17/2024 10:33 AM CDT [facility] Comment: THIS ASSAY IS NOT RECOMMENDED FOR PATIENTS UNDERGOING TREATMENT WITH ELTROMBOPAG DUE TO THE POTENTIAL FOR FALSELY ELEVATED RESULTS. TOTAL PROTEIN S/P/B 7.7 6.4 - 8.2 G/DL 08/17/2024 10:33 AM CDT [facility] ALBUMIN S/P/B 3.3(L) 3.4 - 5.0 G/DL 08/17/2024 10:33 AM CDT [facility] AST 18 15 - 37 U/L 08/17/2024 10:33 AM CDT [facility] ALT 23 16 - 60 U/L 08/17/2024 10:33 AM CDT [facility] ALKALINE PHOSPHATASE S/P/B 101 50 - 136 U/L 08/17/2024 10:33 AM CDT [facility] ANION GAP 6.1 2 - 10 MMOL/L 08/17/2024 10:33 AM CDT [facility] BUN CREATININE RATIO 16.0 6 - 26 08/17/2024 10:33 AM CDT [facility] A/G RATIO 0.8(L) 1.0 - 2.0 RATIO 08/17/2024 10:33 AM T [facility] GFR ESTIMATE 50(L) >90 ML/MIN/1.7 3 M2 08/17/2024 10:33 AM T [facility] Comment: NOTE: eGFR is not calculated for patients <18 years of age or gender unknown. This is an estimated GFR calculation using the new CKD EPI creatinine equation without race and so does not require a correction factor for race. This estimated GFR should not be used for calculating drug doses. 08/17/2024 9:39 AM CDT us Dennis Garza MD LABORATORY Final Result [facility] [address] [place] [address], [place] [phone] * (ABNORMAL) PARTIAL THROMBOPLASTIN TIME,PTT (08/17/2024 9:39 AM CDT) PTT 24.4(L) 25.1 - 36.5 SEC 08/17/2024 10:38 AM CDT [facility] 08/17/2024 9:39 AM CDT Dennis Garza MD LABORATORY Final Result Performing Organization Address [facility] [[email or web address]] Co de Phone Number [facility] [address] [place] [address], * PROTIME/INR, VENOUS (08/17/2024 9:39 AM CDT) PROTIME 11.3 10.2 - 12.9 SEC 08/17/2024 10:38 AM CDT [facility] INR 1.0 08/17/2024 10:38 AM CDT [facility] Comment: Recommended INR Therapeutic Goals: 2.0-3.0 Routine Therapy 2.5-3.5 Mechanical Prosthetic Valves (High Risk) 08/17/2024 9:39 AM CDT Dennis Garza MD LABORATORY Final Result Performing Organization Address [facility] [email or web address]] Co de Phone Number [facility] [address] [place] [phone], * (ABNORMAL) CBC W/DIFF AUTOMATED (08/17/2024 9:39 AM CDT) WBC 9.53 4.5 - 11.0 x10'3/uL 08/17/2024 9:59 AM CDT [facility] RBC 4.76 4.70 - 6.10 x10'6/uL 08/17/2024 9:59 AM CDT [facility] HGB 13.3(L) 14.0 - 18.0 G/DL 08/17/2024 9:59 AM CDT [facility] HCT 41.8(L) 43.0 - 54.0 % 08/17/2024 9:59 AM CDT [facility] MCV 87.8 80.0 - 94.0 FL 08/17/2024 9:59 AM CDT [facility] MCH 27.9 27.0 - 31.0 PG 08/17/2024 9:59 AM CDT [facility] MCHC 31.8(L) 32.0 - 36.0 G/DL 08/17/2024 9:59 AM CDT [facility] RDW 15.2(H) 11.5 - 14.5 % 08/17/2024 9:59 AM CDT [facility] PLT 265 130 - 400 x10'3/uL 08/17/2024 9:59 AM CDT [facility] MPV 10.8 9.3 - 12.2 FL 08/17/2024 9:59 AM CDT [facility] DIFFERENTIAL TYPE AUTOMATED DIFFERENTIAL 08/17/2024 9:59 AM CDT [facility] NEUTROPHILS % 57.0 % 08/17/2024 9:59 AM CDT [facility] LYMPHOCYTES % 32.8 % 08/17/2024 9:59 AM CDT [facility] MONOCYTES % 7.2 % 08/17/2024 9:59 AM CDT [facility] EOSINOPHILS 2.0 % 08/17/2024 9:59 AM CDT [facility] BASOPHILS 0.7 % 08/17/2024 9:59 AM CDT [facility] IMMATURE GRANS % 0.3 % 08/18/19 9:59 AM CDT [facility] ABS. NEUTROPHILS 5.42 1.80 - 7.70 x10'3/uL 08/17/2024 9:59 AM CDT [facility] ABS. LYMPHOCYTES 3.13 1.00 - 4.80 x10'3/uL 08/17/2024 9:59 AM CDT [facility] ABS. MONOCYTES 0.69 0.30 - 0.82 x10'3/uL 08/17/2024 9:59 AM CDT [facility] ABS. EOSINOPHILS 0.19 0.04 - 0.54 x10'3/uL 08/17/2024 9:59 AM CDT [facility] ABS. BASOPHILS 0.07 0.01 - 0.08 x10'3/uL 08/17/2024 9:59 AM CDT [facility] ABS. IMMATURE GRANULOCYTES 0.03 0.00 - 0.49 x10'3/uL 08/17/2024 9:59 AM CDT [facility] 08/17/2024 9:39 AM CDT Dennis Garza MD LABORATORY Final Result Performing Organization Address City/State/[facility] [email or web address]] Co de Phone Number [facility] [address] [place] [address], [place] [phone] * ECG 12 lead (08/17/2024 9:35 AM CDT) 08/17/2024 9:35 AM CDT Narrative [facility] ([facility]) RAD - 08/17/2024 2:25 PM CDT [address] Test Date: 2024-08-17 Pat Name: RAMÍREZ FERNANDO Department: 41 Room: [facility] Gender: Male Insight Director: [id number] : 1950 Requested By: DENNIS GARZA Order Number: [id number] Reading MD: Mu Tai Measurements Intervals [place] Rate: 70 P: 49 MO: 175 QRS: -29 QRSD: 150 T: 115 QT: 442 QTc: 479 Interpretive Statements SINUS RHYTHM LEFT BUNDLE BRANCH BLOCK [120+ ms QRS DURATION, 80+ ms Q/S IN V1/V2, 85+ ms R IN I/aVL/V5/V6] Compared to ECG 06/22/2023 15:09:14 Left bundle-branch block now present T-wave abnormality no longer present Possible ischemia no longer present Other ischemic changes, not STEMI Preliminary EKG Interpretation by Dennis Garza M.D. Procedure Note Mu Tai MD - 08/17/[address] Test Date: 2024-08-17 Pat Name: RAMÍREZ FERNANDO Department: 41 Room: [facility] Gender: Male Insight Director: [id number] : 1950 Requested By: DENNIS GARZA Order Number: [id number] Reading MD: Mu Tai Measurements Intervals [place] Rate: 70 P: 49 MO: 175 QRS: -29 QRSD: 150 T: 115 QT: 442 QTc: 479 Interpretive Statements SINUS RHYTHM LEFT BUNDLE BRANCH BLOCK [120+ ms QRS DURATION, 80+ ms Q/S IN V1/V2, 85+ms R IN I/aVL/V5/V6] Compared to ECG 06/22/2023 15:09:14 Left bundle-branch block now present T-wave abnormality no longer present Possible ischemia no longer present Other ischemic changes, not STEMI Preliminary EKG Interpretation by Dennis Garza M.D. us Dennis Garza MD ECG ORDERABLES Final Result [facility]) [facility] documented in this encounter Visit Diagnoses Diagnosis CVA (cerebral vascular accident) ([facility])- Primary Unspecified cerebral artery occlusion with cerebral infarction Altered mental status CVA (cerebral vascular accident) ([facility]) Unspecified cerebral artery occlusion with cerebral infarction Hyperglycemia Other abnormal glucose NSTEMI (non-ST elevated myocardial infarction) ([facility]) Acute myocardial infarction, subendocardial infarction, episode of care unspecified Acute metabolic encephalopathy Carotid stenosis, right Occlusion and stenosis of carotid artery without mention of cerebral infarction documented in this encounter Admitting Diagnoses Diagnosis CVA (cerebral vascular accident) ([facility]) Unspecified cerebral artery occlusion with cerebral infarction Acute metabolic encephalopathy Carotid stenosis, right Occlusion and stenosis of carotid artery without mention of cerebral infarction documented in this encounter Administered Medications Inactive Administered Medications - up to 3 most recent administrations Medication Order MAR Action Action Date Dose Rate Site acetaminophen (TYLENOL) suppository 650 mg 650 mg, Rectal, Every 4 hours PRN, Mild pain (Scale 1 - 3), Starting on 08/17/24 at 1216, Until 08/19/24 at 1458, Maximum dose of acetaminophen is 4000 mg from all sources in 24 hours. Given 08/17/2024 12:26 PM CDT 650 mg acetaminophen (TYLENOL) tablet 650 mg 650 mg, Oral, Every 4 hours PRN, Mild pain (Scale 1 - 3), Starting on Mon08/19/24 at 1458, Until Mon08/27/24 at 1430, Maximum dose of acetaminophen is 4000 mg from all sources in 24 hours. Given 08/27/2024 9:00 AM CDT 650 mg Given 08/25/2024 11:50 AM CDT 650 mg amLODIPine (NORVASC) tablet 5 mg 5 mg, Oral, Daily, First dose on Mon08/20/24 at 1930, Until Discontinued Given 08/21/2024 12:43 PM CDT 5 mg Given 08/20/2024 8:23 PM CDT 5 mg amLODIPine (NORVASC) tablet 5 mg 5 mg, Oral, Daily, First dose on Mon08/25/24 at 1430, Until DiscontinuedIndications:Hypertension Given 08/27/2024 9:00 AM CDT 5 mg Given 08/26/2024 1:01 PM CDT 5 mg Given 08/25/2024 3:16 PM CDT 5 mg aspirin chewable tablet 81 mg 81 mg, Oral, Daily, First dose on Mon08/18/24 at 0900, Until DiscontinuedIndications:Prophylaxis Given 08/25/2024 8:49 AM CDT 81 mg Given 08/22/2024 10:06 AM CDT 81 mg Given 08/21/2024 12:44 PM CDT 81 mg aspirin chewable tablet 81 mg 81 mg, Per G Tube, Daily, First dose (after last modification) on 08/26/24 at 0900, Until DiscontinuedIndications:Prophylaxis Given 08/27/2024 9:00 AM CDT 81 mg Given 08/26/2024 1:01 PM CDT 81 mg aspirin suppository 300 mg 300 mg, Rectal, Once, 1 dose, On 08/17/24 at 1115 Given 08/17/2024 11:16 AM CDT 300 mg atorvastatin (LIPITOR) tablet 80 mg 80 mg, Oral, Nightly, First dose on 08/17/24 at 2100, Until DiscontinuedIndications:Hyperchloremia Given 08/24/2024 10:44 PM CDT 80 m g Given 08/22/2024 8:22 PM CDT 80 mg Given 08/21/2024 8:03 PM CDT 80 mg atorvastatin (LIPITOR) tablet 80 mg 80 mg, Per G Tube, Nightly, First dose (after last modification) on Mon08/25/24 at 2100, Until DiscontinuedIndications:Hyperchlorem ia Given 08/26/2024 8:06 PM CDT 80 mg bisacodyl (DULCOLAX) suppository 10 mg 10 mg, Rectal, Daily as needed, Constipation, Starting on Mon08/19/24 at 1458, Until Mon08/27/24 at 1430 ceFAZolin (ANCEF) 2 g in sodium chloride 0.9 % 100 mL IVPB 2 g, Intravenous, at 400 mL/hr, Every 8 hours, 2 doses, First dose on Mon08/23/24 at 2300, Last dose on Mon08/24/24 at 0700, Give 2 gram dose for patients less than 120 kg. PHARMACY TO ADJUST administration times based on pre-op/intra-op dose. Do NOT continue greater than 24 hours after anesthesia end time., Post-Op New Bag 08/24/2024 6:00 AM CDT 2 g 400 mL/hr New Bag 08/23/2024 10:00 PM CDT 2 g 400 mL/hr cyclobenzaprine (FLEXERIL) tablet 5 mg 5 mg, Oral, 3 times daily PRN, Muscle Spasms, Starting on 08/17/24 at 1659, Until Mon08/27/24 at 1430 Given 08/27/2024 9:01 AM CDT 5 mg Given 08/18/2024 6:45 PM CDT 5 mg Given 08/17/2024 5:28 PM CDT 5 mg dexmedetomidine (PRECEDEX) 400 mcg in NS 100 mL IV infusion 0.1-1.4 mcg/kg/hr 60 kg (1.5-21 mL/hr), Intravenous, Continuous, Starting on Mon08/21/24 at 1900, Until Mon08/23/24 at 0900, INITIAL RATE: 0.2 mcg/kg/hr TITRATE BY: 0.1 mcg/kg/hr every 10 minutes MAXIMUM RATE: 1.4 mcg/kg/hr WEAN BY: 0.1 mcg/kg/hr every 10 minutes NOTIFY PROVIDER if HR LESS than@ 50 BPM, SBP LESS than 90 mmHg, respiratory rate LESS than 10 breaths per min, *or* SpO2 LESS than 92% - DECREASE infusion rate by 50% SPECIAL INSTRUCTIONS: - RASS/CPOT score mu@st be documented for each rate/dose change. Rate/Dose Change 08/23/2024 6:45 AM CDT 0.1 mcg/kg/hr 1.5 mL/hr Rate/Dose Change 08/23/2024 6:00 AM CDT 0.2 mcg/kg/hr 3 mL /hr Rate/Dose Change 08/23/2024 3:10 AM CDT 0.1 mcg/kg/hr 1.5 mL/hr dexmedetomidine (PRECEDEX) 400 mcg in NS 100 mL IV infusion 0.1-1.4 mcg/kg/hr 56.7 kg (1.4175-19.845 mL/hr, rounded to 1.42-19.85 mL/hr), Intravenous, Continuous, Starting on Mon08/23/24 at 1930, Until Mon08/24/24 at 0641, INITIAL RATE: 0.2 mcg/kg/hr TITRATE BY: 0.1 mcg/kg/hr every 10 minutes MAXIMUM RATE: 1.4 mcg/kg/hr WEAN BY: 0.1 mcg/kg/hr every 10 minutes NOTIFY PROVIDER if HR LESS than 50 BPM, SBP LESS than 90 mmHg, respiratory rate LESS than 10 breaths per min, *or* SpO2 LESS than 92% - DECREASE infusion rate by 50% SPECIAL INSTRUCTIONS: - RASS/CPOT score must be documented for each rate/dose change. Rate/Dose Change 08/24/2024 4:40 AM CDT 0.1 mcg/kg/hr 1.42 mL/hr Rate/Dose Change 08/24/2024 4:00 AM CDT 0.2 mcg/kg/hr 2.84 mL/hr Rate/Dose Change 08/24/2024 3:00 AM CDT 0.3 mcg/kg/hr 4.25 mL/hr glycopyrrolate (ROBINUL) injection 0.2 mg 0.2 mg, Intravenous, Once, 1 dose, On 08/25/24 at 0130, Administer over 1-2 minutes. Given 08/25/2024 1:2 6 AM CDT 0.2 mg haloperidol lactate (HALDOL) injection 2 mg 2 mg, Intravenous, Every 6 hours PRN, Agitation, Starting on 08/20/24 at 1705, Until 08/27/24 at 1430, IF giving IV, do not give faster than 5 mg/min IV; observe for hypotension. IM Administration: Gluteal muscle is recommended, may use deltoid as alternative. Given 08/25/2024 7:32 PM CDT 2 mg Given 08/21/2024 3:41 AM CDT 2 mg heparin (porcine) injection 5,000 Units 5,000 Units, Subcutaneous, Every 12 hours scheduled (2 times per day), First dose on 08/17/24 at 1130, Until Discontinued Given 08/20/2024 9:23 AM CDT 5,000 Units Left Lower Abdomen Given 08/19/2024 8:44 PM CDT 5,000 Units R ight Upper Abdomen Given 08/19/2024 10:45 AM CDT 5,000 Units Right Upper Abdomen heparin (porcine) injection 5,000 Units 5,000 Units, Intravenous, Once, 1 dose, On 08/20/24 at 1730, IV Push Bolus. Maximum 10,000 units. Given 08/20/2024 6:53 PM CDT 5,000 Units heparin 25,000 units in 250 mL 0.45% NaCl (100 units/mL) infusion 0-3,900 Units/hr (0-39 mL/hr), Intravenous, Continuous, Starting on Tu08/20/24 at 1730, Until Mon08/23/24 at 1806, Medical Heparin Management (Calculator) MAX INITIAL infusion rate is 2,000 units/hr. Use the Protocol button Yes to calculate initial infusion rate of 18 units/kg/hr. LAB INSTRUCTIONS: - Draw STAT labs prior to initiation of infusion. - Anti-Xa (UFH) to be scheduled 6 hours after any of the following: start of infusion, bolus of heparin, rate change, holding of heparin drip, or unless specified. - Once Anti-Xa (UFH) AT GOAL: Repeat in 6 hours. If 2 consecutive Anti-Xa (UFH) levels at goal, change Anti-Xa (UFH) order to every morning. - Discontinue Anti-Xa (UFH) and CBCs when heparin is stopped. *High Alert* Rate/Dose Change 08/23/2024 5:50 AM CDT 700 Units/hr 7 mL/hr Rate/Dose Verify 08/22/2024 10:00 PM CDT 800 Units/hr 8 mL /hr Rate/Dose Verify 08/22/2024 6:05 AM CDT 800 Units/hr 8 mL/ hr hydrALAZINE (APRESOLINE) injection 5 mg 5 mg, Intravenous, Every 6 hours PRN, Other, sbp>170 and/or dbp>90, Starting on 08/17/24 at 1221, Until Mon08/19/24 at 1456, Monitor HR and BP before dose and 15 min after IV dose. For IV push give over 1-2 minutes=5mg/min. Given 08/18/2024 8:05 PM CDT 5 mg Given 08/17/2024 3:28 PM CDT 5 mg insulin glargine (LANTUS) injection 10 Units 10 Units, Subcutaneous, Nightly at bedtime, First dose (after last modification) on Mon08/23/24 at 2100, Until Discontinued Given 08/23/2024 7:51 PM CDT 10 Units Left Arm insulin glargine (LANTUS) injection 15 Units 15 Units, Subcutaneous, Nightly at bedtime, First dose (after last modification) on Mon08/24/24 at 2100, Until Discontinued Given 08/26/2024 8:02 PM CDT 15 Units Left Arm Given 08/24/2024 10:45 PM CDT 15 Units R ight Lower Abdomen insulin glargine (LANTUS) injection 6 Units 6 Units, Subcutaneous, Nightly at bedtime, First dose on Mon08/20/24 at 2100, Until Discontinued Given 08/22/2024 8:23 PM CDT 6 Units Left Arm Given 08/21/2024 8:18 PM CDT 6 Units Le ft Arm Given 08/20/2024 8:34 PM CDT 6 Units Le ft Arm insulin lispro (HUMALOG/ADMELOG) injection 0-14 Units 0-14 Units, Subcutaneous, 3 times daily before meals, First dose on Mon08/17/24 at 1130, Until Discontinued, Blood Glucose (SENSITIVE Dosing): [Less than 70: Initiate Hypoglycemia Standing Orders] [71-140: 0 units] [141-180: 2 units] [181-220: 4 units] [221-260: 6 units] [261-300: 8 units] [301-350: 10 units] [351-400: 12 units] [Greater than 400: 14 units and Call Physician] Given 08/24/2024 4:49 PM CDT 4 Units Right Lower Abdomen Given 08/24/2024 11:47 AM CDT 4 Units R ight Lower Abdomen Given 08/24/2024 6:00 AM CDT 8 Units Ri ght Arm insulin lispro (HUMALOG/ADMELOG) injection 0-14 Units 0-14 Units, Subcutaneous, Every 6 hours, First dose on Mon08/25/24 at 1800, Until Discontinued, Blood Glucose (SENSITIVE Dosing): [Less than 70: Initiate Hypoglycemia Standing Orders] [71-140: 0 units] [141-180: 2 units] [181-220: 4 units] [221-260: 6 units] [261-300: 8 units] [301-350: 10 units] [351-400: 12 units] [Greater than 400: 14 units and Call Physician] Given 08/26/2024 11:48 PM CDT 2 Units Left Arm insulin lispro (HUMALOG/ADMELOG) injection 0-7 Units 0-7 Units, Subcutaneous, Nightly at bedtime, First dose on Mon08/17/24 at 2100, Until Discontinued, Blood Glucose (SENSITIVE Dosing): [Less than 70: Initiate Hypoglycemia Standing Orders] [71-180: 0 units] [181-220: 2 units] [221-260: 3 units] [261-300: 4 units] [301-350: 5 units] [351-400: 6 units] [Greater than 400: 7 units and Call Physician] Given 08/23/2024 7:52 PM CDT 4 Units Right Arm Given 08/21/2024 8:18 PM CDT 3 Units Le ft Arm Given 08/18/2024 7:57 PM CDT 2 Units Ri ght Arm iopamidol (ISOVUE-370) 76 % injection 80 mL 80 mL, Intravenous, IMG once as needed, Contrast, 1 dose, Starting on Mon08/17/24 at 0955, Until Mon08/17/24 at 0955 Given 08/17/2024 9:55 AM CDT 80 mLs iopamidol (ISOVUE-370) 76 % injection 80 mL 80 mL, Intravenous, IMG once as needed, Contrast, 1 dose, Starting on Mon08/21/24 at 0928, Until Mon08/21/24 at 0928 Given 08/21/2024 9:28 AM CDT 80 mLs lactated ringers bolus infusion 500 mL 500 mL, Intravenous, Administer over 60 Minutes, Once, 1 dose, On Mon08/24/24 at 0815 New Bag 08/24/2024 8:18 AM CDT 500 mLs 500 mL/hr lactulose (CHRONULAC) 10 GM/15ML solution 10 g 10 g, Oral, 3 times daily, First dose on Mon08/17/24 at 1730, Until Discontinued Given 08/25/2024 8:50 AM CDT 10 g Given 08/24/2024 10:44 PM CDT 10 g Given 08/22/2024 8:22 PM CDT 10 g lactulose (CHRONULAC) 10 GM/15ML solution 10 g 10 g, Per G Tube, 3 times daily, First dose (after last modification) on 08/25/24 at 1600, Until Discontinued Given 08/27/2024 9:00 AM CDT 10 g Given 08/26/2024 8:06 PM CDT 10 g Given 08/25/2024 3:16 PM CDT 10 g LORazepam (ATIVAN) injection 0.5 mg 0.5 mg, Intravenous, Every 4 hours PRN, Anxiety, 2 doses, Starting on 08/17/24 at 2200, Until Mon08/18/24 at 2006, For IV use, further dilute with an equal volume of saline. Do not exceed a rate of 2 mg/min. Given 08/18/2024 8:06 PM CDT 0. 5 mg Given 08/17/2024 10:08 PM CDT 0.5 mg melatonin tablet 3 mg 3 mg, Oral, Nightly PRN, insomnia, Starting on Mon08/19/24 at 1458, Until Mon08/27/24 at 1430 Given 08/19/2024 8:44 PM CDT 3 mg metoprolol succinate ER (TOPROL-XL) 24 hr tablet 12.5 mg 12.5 mg, Oral, Daily, First dose (after last reorder) on Mon08/26/24 at 1415, Until Discontinued, May be split in half along the tablet score line; do not chew or crush.Indications:Hypertension Given 08/27/2024 9:01 AM CDT 12.5 mg metoprolol succinate ER (TOPROL-XL) 24 hr tablet 50 mg 50 mg, Oral, Daily, First dose on Mon08/20/24 at 1030, Until Discontinued, May be split in half along the tablet score line; do not chew or crush. Given 08/21/2024 12:54 PM CDT 50 mg Given 08/20/2024 12:33 PM CDT 50 mg morphine injection 2 mg 2 mg, Intravenous, Once, 1 dose, On Brandi 08/22/24 at 1830 Given 08/22/2024 6:21 PM CDT 2 mg norepinephrine (LEVOPHED) 8 mg/250mL NS infusion 0.5-60 mcg/min (0.9375-112.5 mL/hr, rounded to 0.94-112.5 mL/hr), Intravenous, Continuous, Starting on Brandi 08/22/24 at 0230, Until Mon08/25/24 at 0521, INITIAL RATE: 5 mcg/min TITRATE according to MAP: - If MAP is 60-65 ----- 2 mcg/min every 10 min - If MAP is 55-59 ----- 5 mcg/min every 5 min - If MAP is 50-54 ----- 5 mcg/min every 2 min - If MAP is LESS than 50 ------ 5 mcg/min every 1 min MAP Goal: MAP greater than or equal to 65 mmHg and SBP greater than or equal to 90 mmHg or HR greater than or equal to 60 bpm, MAXIMUM RATE: 60 mcg/min WEAN BY: 2 mcg/min every 2 minutes after a goal MAP > 65 for at least 3 consecutive readings NOTIFY PROVIDER if max rate of 60 mcg/min reached and/or SBP LESS than 90 mmHg or MAP LESS than 55 mmHg despite 3 upward titrations NOTIFY PROVIDER if SBP GREATER than 150 mmHg for 3 consecutive readings despite weaning rate. The order in which vasopressors are to be discontinued will be dictated by physician. Rate/Dose Change 08/24/2024 9:30 AM CDT 2 mcg/min 3.75 mL/hr Rate/Dose Change 08/24/2024 8:51 AM CDT 4 mcg/min 7.5 mL/ hr Rate/Dose Change 08/24/2024 6:43 AM CDT 6 mcg/min 11.25 m L/hr perflutren lipid microsphere (DEFINITY) injection 2 mL 2 mL, Intravenous, IMG once as needed, Contrast, 1 dose, Starting on Mon08/18/24 at 1604, Until Mon08/18/24 at 1604, Administer over 30-60 seconds. Follow with 10 mL saline flush. Given 08/18/2024 4:04 PM CDT 2 mLs potassium chloride 40 mEq in sodium chloride 0.9 % 500 mL IV Infusion 40 mEq, Intravenous, Administer over 240 Minutes, Once, 1 dose, On Mon08/18/24 at 1030, MAX rate in peripheral line of 10 mEq per hour. New Bag 08/18/2024 10:36 AM CDT 40 mEq 125 mL/hr potassium chloride 40 mEq in sodium chloride 0.9 % 500 mL IV Infusion 40 mEq, Intravenous, Administer over 240 Minutes, Once, 1 dose, On Mon08/18/24 at 1530, Repeat for total of 80meq MAX rate in peripheral line of 10 mEq per hour. New Bag 08/18/2024 5:31 PM CDT 40 mEq 125 mL/hr potassium chloride 40 mEq in sodium chloride 0.9 % 500 mL IV Infusion 40 mEq, Intravenous, Administer over 240 Minutes, Once, 1 dose, On Mon08/19/24 at 0900, MAX rate in peripheral line of 10 mEq per hour. New Bag 08/19/2024 10:45 AM CDT 40 mEq 125 mL/hr potassium chloride CR (K-TAB) tablet 40 mEq 40 mEq, Oral, Once, 1 dose, On Mon08/27/24 at 0845, Do not break, chew, or crush. Given 08/27/2024 9:01 AM CDT 40 mEq sodium chloride 0.9% infusion at 75 mL/hr, Intravenous, Continuous, Starting on 08/17/24 at 1145, Until 08/18/24 at 1006 New Bag 08/18/2024 1:30 AM CDT 75 mL/hr New Bag 08/17/2024 12:01 PM CDT 75 mL/hr sodium chloride 0.9% infusion at 75 mL/hr, Intravenous, Once, 1 dose, On Mon08/26/24 at 0045 New Bag 08/26/2024 12:26 AM CDT 7 5 mL/hr tamsulosin (FLOMAX) capsule 0.4 mg 0.4 mg, Oral, Daily, First dose on 08/17/24 at 1130, Until DiscontinuedIndications:Benign prostatic hyperplasia (BPH) suspected Given 08/21/2024 12:43 PM CDT 0.4 mg Given 08/20/2024 9:23 AM CDT 0.4 mg Given 08/19/2024 10:45 AM CDT 0.4 mg ticagrelor (BRILINTA) tablet 90 mg 90 mg, Oral, 2 times daily, First dose on 08/17/24 at 1130, Until DiscontinuedIndications:Diabetes Mellitus Given 08/25/2024 8:49 AM CDT 90 mg Given 08/24/2024 10:44 PM CDT 90 mg Given 08/22/2024 8:24 PM CDT 90 mg ticagrelor (BRILINTA) tablet 90 mg 90 mg, Per G Tube, 2 times daily, First dose (after last modification) on 08/25/24 at 2100, Until DiscontinuedIndications:Diabetes Mellitus Given 08/27/2024 9:01 AM CDT 90 mg Given 08/26/2024 8:06 PM CDT 90 mg Given 08/26/2024 1:03 PM CDT 90 mg documented in this encounter Active and Recently Administered Medications Times are shown in CDT. Scheduled Medication Order 08/25/2024 08/26/2024 08/27/2024 amLODIPine (NORVASC) tablet 5 mg 5 mg, Oral, Daily, First dose on 08/25/24 at 1430, Until Discontinued 1516 (Given - Provider: Shanell Beck RN) 0759 (Not Given - Provider: Davy Mittal RN - Reason: NPO)1301 (Given - Provider: Davy Mittal RN) 0900 (Given - Provider: Nicole Bills RN) aspirin chewable tablet 81 mg (CANCELED) 81 mg, Oral, Daily, First dose on 08/18/24 at 0900, Until Discontinued 0849 (Given - Provider: Shanell Beck RN) aspirin chewable tablet 81 mg 81 mg, Per G Tube, Daily, First dose (after last modification) on 08/26/24 at 0900, Until Discontinued 075 (Not Given - Provider: Davy Mittal RN - Reason: NPO)1301 (Given - Provider: Davy Mittal RN) 0900 (Given - Provider: Nicole Bills, JEREMY) atorvastatin (LIPITOR) tablet 80 mg 80 mg, Per G Tube, Nightly, First dose (after last modification) on 08/25/24 at 2100, Until Discontinued 2002 (Not Given - Provider: Cammie Barclay RN - Reason: NPO) 2005 (Given - Provider: Kayley Neil RN) glycopyrrolate (ROBINUL) injection 0.2 mg (COMPLETED) 0.2 mg, Intravenous, Once, 1 dose, On 08/25/24 at 0130, Administer over 1-2 minutes. 0126 (Given - Provider: Nando Powell RN) insulin glargine (LANTUS) injection 15 Units 15 Units, Subcutaneous, Nightly at bedtime, First dose (after last modification) on 08/24/24 at 2100, Until Discontinued 2002 (Not Given - Provider: Cammie Barclay RN - Reason: NPO) 2001 (Given - Provider: Kayley Neil RN) insulin lispro (HUMALOG/ADMELOG) injection 0-14 Units 0-14 Units, Subcutaneous, Every 6 hours, First dose on 08/25/24 at 1800, Until Discontinued, Blood Glucose (SENSITIVE Dosing): [Less than 70: Initiate Hypoglycemia Standing Orders] [71-140: 0 units] [141-180: 2 units] [181-220: 4 units] [221-260: 6 units] [261-300: 8 units] [301-350: 10 units] [351-400: 12 units] [Greater than 400: 14 units and Call Physician] 1751 (Not Given - Provider: Shanell Beck RN - Reason: Patient/family declined)2354 (Not Given - Provider: Cammie Barclay RN - Reason: NPO) 0618 (Not Given - Provider: Cammie Barclay RN - Reason: NPO - Comment: bs 171)1130 (Not Given - Provider: Davy Mittal RN - Reason: NPO)1800 (Not Given - Provider: Davy Mittal RN - Reason: Other - Comment: not eating well)2348 (Given - Provider: Kayley Neil RN - Comment: BG 147) 0449 (Not Given - Provider: Kayley Neil RN - Reason: Order parameters not met - Comment: BG 99)1200 (Canceled Entry - Provider: Automatic Discharge Provider - Comment: Automatically canceled at discontinue of medication order) lactulose (CHRONULAC) 10 GM/15ML solution 10 g (CANCELED) 10 g, Oral, 3 times daily, First dose on 08/17/24 at 1730, Until Discontinued 0850 (Given - Provider: Shanell Beck RN) lactulose (CHRONULAC) 10 GM/15ML solution 10 g 10 g, Per G Tube, 3 times daily, First dose (after last modification) on 08/25/24 at 1600, Until Discontinued 1516 (Given - Provider: Shanell Beck RN)2002 (Not Given - Provider: Cammie Barclay RN - Reason: NPO) 0800 (Not Given - Provider: Dayv Mittal RN - Reason: NPO)1720 (Not Given - Provider: Davy Mittal RN - Reason: Other)2005 (Given - Provider: Kayley Neil, JEREMY) 09 (Given - Provider: Nicole Bills, JEREMY) metoprolol succinate ER (TOPROL-XL) 24 hr tablet 12.5 mg 12.5 mg, Oral, Daily, First dose (after last reorder) on Mon08/26/24 at 1415, Until Discontinued, May be split in half along the tablet score line; do not chew or crush. 1425 (Not Given - Provider: Davy Mittal RN - Reason: Order parameters not met) 900 (Given - Provider: Nicole Bills RN) potassium chloride CR (K-TAB) tablet 40 mEq (COMPLETED) 40 mEq, Oral, Once, 1 dose, On Mon08/27/24 at 0845, Do not break, chew, or crush. 09 (Given - Provid er: Nicole Bills RN) sodium chloride 0.9% infusion (COMPLETED) at 75 mL/hr, Intravenous, Once, 1 dose, On Mon08/26/24 at 0045 0026 (New Bag - Provider: Cammie Barclay RN) ticagrelor (BRILINTA) tablet 90 mg (CANCELED) 90 mg, Oral, 2 times daily, First dose on Mon08/17/24 at 1130, Until Discontinued 0849 (Given - Provider: Shanell Beck RN) ticagrelor (BRILINTA) tablet 90 mg 90 mg, Per G Tube, 2 times daily, First dose (after last modification) on Mon08/25/24 at 2100, Until Discontinued 2002 (Not Given - Provider: Cammie Barclay RN - Reason: NPO) 0800 (Not Given - Provider: Davy Mittal RN - Reason: NPO)1303 (Given - Provider: Davy Mittal, JEREMY)2005 (Given - Provider: Kayley Neil, JEREMY) 900 (Given - Provider: Nicole Bills RN) PRN Medication Order 08/25/2024 08/26/2024 08/27/2024 acetaminophen (TYLENOL) tablet 325 mg 325 mg, Oral, Every 4 hours PRN, Mild pain (Scale 1 - 3), Starting on Mon08/23/24 at 1842, Until Mon08/27/24 at 1430, Maximum dose of acetaminophen is 4000 mg from all sources in 24 hours., Post-Op acetaminophen (TYLENOL) tablet 650 mg 650 mg, Oral, Every 4 hours PRN, Mild pain (Scale 1 - 3), Starting on Mon08/19/24 at 1458, Until Mon08/27/24 at 1430, Maximum dose of acetaminophen is 4000 mg from all sources in 24 hours. 1150 (Given - Provider: Shanell Beck RN) 0900 (Given - Provider: Nicole Bills RN) bisacodyl (DULCOLAX) suppository 10 mg 10 mg, Rectal, Daily as needed, Constipation, Starting on Mon08/19/24 at 1458, Until Mon08/27/24 at 1430 cyclobenzaprine (FLEXERIL) tablet 5 mg 5 mg, Oral, 3 times daily PRN, Muscle Spasms, Starting on 08/17/24 at 1659, Until Mon08/27/24 at 1430 0901 (Given - Provid er: Nicole Bills RN) docusate sodium (COLACE) capsule 100 mg 100 mg, Oral, Daily as needed, Constipation, Starting on Mon08/23/24 at 1842, Until Mon08/27/24 at 1430, Post-Op haloperidol lactate (HALDOL) injection 2 mg 2 mg, Intravenous, Every 6 hours PRN, Agitation, Starting on Mon08/20/24 at 1705, Until Mon08/27/24 at 1430, IF giving IV, do not give faster than 5 mg/min IV; observe for hypotension. IM Administration: Gluteal muscle is recommended, may use deltoid as alternative. 1931 (Given - Provider: Cammie Barclay RN) melatonin tablet 3 mg 3 mg, Oral, Nightly PRN, insomnia, Starting on Mon08/19/24 at 1458, Until Mon08/27/24 at 1430 ondansetron (ZOFRAN) injection 4 mg 4 mg, Intravenous, Every 8 hours PRN, Nausea, Vomiting, Starting on 08/17/24 at 1119, Until Mon08/27/24 at 1430, IV push over 2-5 minutes. 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
--- OUTSIDE RECORDS SUMMARY | 2024-08-28 11:50 | XMS_ITS | Encounter Summary ---
Author Organization [facility] Address [facility] [place] [address] Care Team Providers Care Anode Builder Name Role Phone Donavon Connor MD Primary Care Provider [phone] Reason for Referral * Surgical (Routine) - New Request Specialty Diagnoses / Procedures Referred By Janel goyal Referred To Contact Diagnoses Carotid stenosis, right Procedures Case request operating room: ENDARTERECTOMY CAROTID (RIGHT SIDE OF NECK) Jeanmarie Medrano MD [facility]. [id number] [place] [address] Phone: tel: fax: Referral ID Status Reason Start Date Expiration Date V isits Requested Visits Authorized [id number] New Request 08/21/2024 08/21/2025 1 1 Encounter Details Date Type Department Care Team (Late st Contact Info) Description 08/21/2024 Prep for Procedure [facility] [address] [place], [place] [address] Jeanmarie Medrano MD [facility]. [facility] [address] [place] [address] Social History Tobacco Use Types Packs/Day Years [...] materials from doctor or pharmacy Often 08/07/2024 [facility] Utilities Answer Date Recorded In the past 12 months has th e [employer], oil, or water [employer] threatened to shut off services in your [...] than three times a week 12/30/2022 Attends [employer] Not on file 12/30 Do you belong to any clubs o r organizations such as worship groups, unions, fraternal or athletic groups, or [...] any time in the past 12 m [facility], were you homeless or living in a correction (including now)? No 08/17/2024 Sex and Gender Information Value Date Recorded Sex Assigned at Male 04/09/2024 9:16 PM SPECIAL DELIVERY CARRIER Legal Sex Male 8:36 PM CDT Gender Identity Male 04/09/2024 9:16 PM SPECIAL DELIVERY CARRIER Sexual Orientation Straight 04/09/2024 9: 16 PM SPECIAL DELIVERY CARRIER documented as of this encounter Functional Status * Are you deaf or do you have serious difficulty hearing Answer Date of Assessment Author Status No 08/17/2024 1:00 PM CDT Jose Antonio Leroy RN Active * Are you blind or do you have serious difficulty seeing, even when wearing glasses? Answer Date of Assessment Author Status No 08/17/2024 1:00 PM Jose Antonio Hernandez RN Active * Do you have serious difficulty walking or climbing stairs? Answer Date of Assessment Author Status Yes 08/17/2024 1:00 PM Jose Antonio Hernandez RN Active * Do you have difficulty dressing or bathing? Answer Date of Assessment Author Status Yes 08/17/2024 2:00 PM CDT Jose Antonio Leroy RN Active * Because of a physical, mental, or emotional condition, do you have difficulty doing errands alone such as visiting a doctor's office or shopping? Answer Date of Assessment Author Status Yes 08/17/2024 2:00 PM Jose Antonio Hernandez RN Active documented as of this encounter Mental Status * Because of a physical, mental, or emotional condition, do you have serious difficulty concentrating, remembering, or making decisions? Answer Entry Date Author Status Yes 08/17/2024 2:00 PM CDT Jose Antonio Leroy RN Active documented in this encounter Plan of Treatment Upcoming Encounters Date Type Department Care Team (Late st Contact Info) Description 09/18/2024 11:00 AM CDT Office Visit [facility] [address] [facility] [place] [address] Jeanmarie Medrano MD [facility] [address] [place] [address] 01/06/2025 11:00 AM CDT Office Visit [facility] - [facility] [address] [facility], [address] [place] [address] Lai Anderson MD [address] [place] [address] Scheduled Orders Name Type Priority Associated Diagnoses Order Schedule Case request operating room: ENDARTERECTOMY CAROTID (RIGHT SIDE OF NECK) Case Request Routine Carotid stenosis, right Once for 1 Occurrences starting 08/21/2024 until 08/21/2024 documented as of this encounter Goals Goal Patient Goal Type Associated Problems Recent Progress Patient-Stated? 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
[2024-08-28 12:00] VITALS: BP 134/55; PULSE 77; RESP 13; O2SAT 100
[2024-08-28 12:01] LABS: Add Urine Microscopic? YES; Appearance Urine Turbid (Clear); Bacteria Urine None Seen /hpf; Bilirubin Urine Negative (Negative); Blood Urine 3+ (Negative); Color Urine Dark Yellow (Yellow); Glucose Urine UA Negative (Negative); Ketones Urine 2+ mg/dL (Negative); Leukocyte Esterase Ur 1+ LEU/UL (Negative); Mucus Urine Present /lpf; Need Manual Microscopic Reviewed; Nitrate Urine Negative (Negative); Protein Urine 1+ mg/dL (Negative); RBC Urine >100 /hpf (0-2); Specific Grav Ur 1.021 (1.001-1.035); Squamous Epithelial Cell Urine Few /hpf (Few); WBC Urine 0-5 /hpf (0-3); pH Urine 5.5 (5.0-9.0)
--- NOTE | 2024-08-28 12:18 | PC.NURSE ---
Patient's daughter signed patient out AMA due to wanting patient to be taken to [facility]. Patient has recent surgery there. Risks of declining health and possible explained to daughter and she verbalized understanding and signed the AMA paperwork. Patient unable to stand on his own so RN and tech assisted patient into wheelchair and into daughters vehicle. This RN spoke with daughter about patient weakness and being unable to stand and daughter still wanted patient to be taken via POV to [facility].
== END 2024-08-28 12:22 | disposition left against medical advice (07) ==
PROVIDERS: Emergency Provider Emergency Medicine; PCP Family Medicine Sports Medicine
DX: R62.7 Adult failure to thrive (principal); Z20.822 Contact with and (suspected) exposure to COVID-19; I25.2 Old myocardial infarction; E11.9 Type 2 diabetes mellitus without complications; I10 Essential (primary) hypertension; I25.10 Atherosclerotic heart disease of native coronary artery without angina pectoris; Z79.4 Long term (current) use of insulin
CPT/HCPCS: 36415; 80053; 81001; 85025; 85610; 85730; 87086; 87637; 93005; 99283